=== PATIENT | female | born 1955 | race Caucasian/White ===

== ENCOUNTER 2017-09-17 14:49 | Inpatient (IN) | payer MEDICARE ==
[2017-09-17] VITALS (8 sets, daily range): BP systolic 97–132; BP diastolic 45–79
[~2017-09-17] VITALS: Ht 167.6 cm; Wt 80.4 kg
[2017-09-17] MEDS ORDERED: IV NORMAL SALINE 1000ML BAG 1,000 ML IV ONE ×3 (15:15→22:30)
--- NOTE | 2017-09-17 15:27 | PHYS DOC ---
Adult General Chief Complaint Chief Complaint: SHORTNESS OF BREATH HPI HPI 62-year-old female with a history of chronic tobacco abuse now presents the emergency department with a 6 week history of worsening shortness of breath and exertional intolerance. Patient does smoke currently and has smoked for many years but she's never been formally diagnosed with COPD. She does feel short of breath and reports a cough over the last 1-2 days however this cough is nonproductive. She denies fevers chills sweats or shaking chills. As stated these symptoms have evolved chronically but been much worse in the last week and then especially today. Patient thinks she is anemic and offers that at one point she was told she was anemic but she was never transfused and no explanation was ever given. She denies black or bloody stools. She denies chest pain of any kind. Patient mentions that she feels dehydrated. She has no history of diabetes. Denies any pain in bowel bladder habits are normal. She's never been told she had any cardiac abnormalities and that she has a primary care doctor she has not seen a person within the last 6 weeks for any reason. Tachycardic and tachypneic on arrival Review of Systems Review of Systems Constitutional: Denies fever or chills [] Eyes: Denies change in visual acuity, redness, or eye pain [] HENT: Denies nasal congestion or sore throat [] Respiratory: Patient reports nonproductive cough and shortness of breath was just been worsening over 6 weeks and especially in the last week Cardiovascular: No additional information not addressed in HPI [] GI: Denies abdominal pain, nausea, vomiting, bloody stools or diarrhea [] : Denies dysuria or hematuria [] Musculoskeletal: Denies back pain or joint pain [] Integument: Denies rash or skin lesions [] Neurologic: Denies headache, focal weakness or sensory changes [] Endocrine: Denies polyuria or polydipsia [] All other systems were reviewed and found to be within normal limits, except as documented in this note. Current Medications Current Medications Current Medications Medications (Trade) Dose Ordered Sig/Vernon Start Time Stop Time Status Last Admin Dose Admin Albuterol/ Ipratropium (Duoneb) 3 ml 1X ONCE 09/17/17 16:45 09/17/17 16:46 DC 09/17/17 17:00 3 ML Azithromycin 250 ml @ 250 mls/hr 1X ONCE 09/17/17 16:30 09/17/17 17:29 DC 09/17/17 22:38 250 MLS/HR Ceftriaxone Sodium 1 gm/ Dextrose 50 ml @ 100 mls/hr Q24H 09/17/17 17:15 UNV Ceftriaxone Sodium 50 ml @ 0 mls/hr 1X ONCE 09/17/17 16:45 09/17/17 16:46 DC 09/17/17 17:33 50 MLS/HR Guaifenesin (Robitussin Dm) 10 ml PRN Q6HRS PRN 09/17/17 17:15 Ondansetron HCl (Zofran) 4 mg PRN Q8HRS PRN 09/17/17 16:30 09/18/17 16:29 DC Potassium Chloride (Klor-Con) 40 meq 1X ONCE 09/17/17 16:45 09/17/17 16:46 DC 09/17/17 16:57 40 MEQ Sodium Chloride 1,000 ml @ 125 mls/hr 1X ONCE 09/17/17 17:15 09/17/17 22:12 DC 09/17/17 17:45 125 MLS/HR Allergies Allergies Allergies Coded Allergies Type Severity Reaction Last Updated Verified No Known Drug Allergies 09/17/17 No Physical Exam Physical Exam 62-year-old female mildly tachypnea with right-sided rhonchi and tachycardia. Her mucous membranes are dry and she has significant subconjunctival pallor. Patient is smiling cheerful communicative and appropriate with a benign neurologic exam. She has a supple neck benign abdomen and a nonfocal neurologic exam. Constitutional: Well developed, mildly ill-appearing HENT: Normocephalic, atraumatic, bilateral external ears normal, oropharynx dry mucous membranes, no oral exudates, nose normal. [] Eyes: PERRLA, EOMI, conjunctiva normal, no discharge. [] Neck: Normal range of motion, no tenderness, supple, no stridor. [] Cardiovascular:Heart rate regular rhythm, no murmur tachycardia[] Lungs & Thorax: As above Abdomen: Bowel sounds normal, soft, no tenderness, no masses, no pulsatile masses. [] Skin: Warm, dry, no erythema, no rash. [] Back: No tenderness, no CVA tenderness. [] Extremities: No tenderness, no cyanosis, no clubbing, ROM intact, no edema. [] Neurologic: Alert and oriented X 3, normal motor function, normal sensory function, no focal deficits noted. [] Psychologic: Affect normal, judgement normal, mood normal. [] Current Patient Data Vital Signs Vital Signs Date Time Temp Pulse Resp B/P (MAP) Pulse Ox O2 Delivery O2 Flow Rate FiO2 09/17/17 17:26 107 91/66 (74) 09/17/17 17:01 91 Room Air 09/17/17 14:55 97.7 24 97.7 Lab Values Laboratory Tests Test 09/17/17 15:15 09/17/17 15:48 09/17/17 16:50 09/17/17 17:00 White Blood Count 15.4 x10^3/uL (4.0-11.0) H Red Blood Count 2.46 x10^6/uL (3.50-5.40) L Hemoglobin 5.0 g/dL (12.0-15.5) *L Hematocrit 17.5 % (36.0-47.0) *L Mean Corpuscular Volume 71 fL (79-100) L Mean Corpuscular Hemoglobin 20 pg (25-35) L Mean Corpuscular Hemoglobin Concent 29 g/dL (31-37) L Red Cell Distribution Width 25.9 % (11.5-14.5) H Platelet Count 354 x10^3/uL (140-400) Neutrophils (%) (Auto) 78 % (31-73) H Lymphocytes (%) (Auto) 8 % (24-48) L Monocytes (%) (Auto) 8 % (0-9) Eosinophils (%) (Auto) 5 % (0-3) H Basophils (%) (Auto) 1 % (0-3) Neutrophils # (Auto) 12.0 x10^3uL (1.8-7.7) H Lymphocytes # (Auto) 1.2 x10^3/uL (1.0-4.8) Monocytes # (Auto) 1.2 x10^3/uL (0.0-1.1) H Eosinophils # (Auto) 0.8 x10^3/uL (0.0-0.7) H Basophils # (Auto) 0.2 x10^3/uL (0.0-0.2) Platelet Estimate Adequate (ADEQUATE) Polychromasia Present Hypochromasia Mod Poikilocytosis Slight Anisocytosis Marked Microcytosis Mod Tear Drop Cells Occ Ovalocytes Few Schistocytes Occ Haptoglobin 265 mg/dL (34-200) H Prothrombin Time 14.3 SEC (11.7-14.0) H Prothrombin Time INR 1.2 (0.8-1.1) H PTT 33 SEC (24-38) Fibrinogen 727 mg/dL (200-440) H Sodium Level 141 mmol/L (136-145) Potassium Level 3.1 mmol/L (3.5-5.1) L Chloride Level 107 mmol/L (98-107) Carbon Dioxide Level 20 mmol/L (21-32) L Anion Gap 14 (6-14) 14 mmol/L (6-14) Blood Urea Nitrogen 21 mg/dL (7-20) H Creatinine 1.5 mg/dL (0.6-1.0) H Estimated GFR (Cockcroft-Gault) 35.4 BUN/Creatinine Ratio 14 (6-20) Glucose Level 127 mg/dL (70-99) H 118 mg/dL (70-99) H Calcium Level 9.2 mg/dL (8.5-10.1) Total Bilirubin 0.4 mg/dL (0.2-1.0) Aspartate Amino Transferase (AST) 29 U/L (15-37) Alanine Aminotransferase (ALT) 11 U/L (14-59) L Alkaline Phosphatase 73 U/L (46-116) Lactate Dehydrogenase 452 U/L (81-234) H Total Protein 6.6 g/dL (6.4-8.2) Albumin 2.6 g/dL (3.4-5.0) L Albumin/Globulin Ratio 0.7 (1.0-1.7) L Thyroid Stimulating Hormone (TSH) 0.677 uIU/mL (0.358-3.74) POC Hemoglobin 6.1 g/dL (12-15) L POC Hematocrit 18 % (36-40) L POC Sodium 141 mmol/L (135-145) POC Potassium 3.3 mmol/L (3.5-5.0) L POC Chloride 110 mmol/L (98-110) POC Total CO2 22 mmol/L (23-32) L POC Blood Urea Nitrogen 24 mg/dL (8-26) POC Creatinine 1.4 mg/dL (0.5-1.4) POC Ionized Calcium (Emily) 1.20 mmol/L (1.13-1.32) POC Troponin I 0.01 ng/ml (<0.08) Lactic Acid Level 1.1 mmol/L (0.4-2.0) Laboratory Tests 09/17/17 15:15 Laboratory Tests 09/17/17 15:15 09/17/17 15:48 Microbiology 09/17/17 Blood Culture - Preliminary, Resulted NO GROWTH AFTER 1 DAY EKG EKG EKG with sinus tachycardia, nonspecific ST and T-wave findings, no STEMI interpreted by me[] Radiology/Procedures Radiology/Procedures Chest x-ray with right-sided infiltrate interpreted by me[] Course & Med Decision Making Course & Med Decision Making Pertinent Labs and Imaging studies reviewed. (See chart for details) 62-year-old female signs and symptoms consistent with symptomatic anemia. Patient's hemoglobin 5. She is not Restorationist verbally consents for transfusion. type and cross for 2 units of PRBCs performed for transfusion as available. Patient also with mild metabolic acidosis as well as hypokalemia and severe hypoalbuminemia. She is to. Patient states she's never been diagnosed with COPD but she has been a daily smoker for a very long time. She has a cough but denies productivity or fever. Chest x-ray shows a right-sided pneumonia so cultures were drawn and antibiotic coverage initiated for CPAP. Case discussed with Dr. Deja hooker is aware the history and findings and agrees with inpatient admission to a cardiac telemetry bed to his service. Coags fibrinogen, haptoglobin, and LDH pending for anemia workup Critical care 76 minutes [] Dragon Disclaimer Dragon Disclaimer This electronic medical record was generated, in whole or in part, using a voice recognition dictation system. Departure Departure Impression: Primary Impression: Severe anemia Additional Impressions: Metabolic acidosis Hypoalbuminemia Pneumonia Dyspnea Disposition: 09 ADMITTED INPATIENT Admitting Physician: Deja Hooker Condition: GUARDED Problem Qualifiers ZEFERINO DE LOS SANTOS MD Sep 17, 2017 15:27
--- NOTE | 2017-09-17 15:35 | RAD ---
Portable chest, 09/17/2017: History: Shortness of breath, medical workup No previous chest radiographs are available at this time for comparison purposes. The heart is at the upper limits of normal in size. There is moderate right parahilar infiltrate with poor definition of the underlying pulmonary vascularity. There is blunting of the left lateral costophrenic angle compatible with pleural fluid versus scarring. No right-sided pleural fluid is seen. Scattered degenerative changes are present in the spine. IMPRESSION: 1. Moderate right parahilar infiltrates suggesting pneumonia versus unilateral pulmonary edema. 2. Probable moderate sized left pleural effusion.
[2017-09-17 15:44] LABS: BASO # 0.2 x10^3/uL (0.0-0.2); BASO % 1 % (0-3); EOS % 5 % (0-3); LYMPH # 1.2 x10^3/uL (1.0-4.8); LYMPH % 8 % (24-48); MEAN CORPUSCULAR HEMOGLOBIN 20 pg (25-35); MEAN CORPUSCULAR HGB CONC 29 g/dL (31-37); MEAN CORPUSCULAR VOLUME 71 fL (79-100); MONO % 8 % (0-9); NEUT % 78 % (31-73); PLATELET COUNT 354 x10^3/uL (140-400); RED BLOOD COUNT 2.46 x10^6/uL (3.50-5.40); RED CELL DISTRIBUTION WIDTH 25.9 % (11.5-14.5); WHITE BLOOD COUNT 15.4 x10^3/uL (4.0-11.0)
[2017-09-17 15:48] LABS: HEMATOCRIT 17.5 % (36.0-47.0)
[2017-09-17 15:54] LABS: POTASSIUM ISTAT 3.3 mmol/L (3.5-5.0)
[2017-09-17 15:55] LABS: CALCIUM 9.2 mg/dL (8.5-10.1); CREATININE 1.5 mg/dL (0.6-1.0); GFR 35.4; POTASSIUM 3.1 mmol/L (3.5-5.1)
[2017-09-17 15:59] LABS: ALBUMIN 2.6 g/dL (3.4-5.0); ALBUMIN/GLOBULIN RATIO 0.7 (1.0-1.7); TOTAL BILIRUBIN 0.4 mg/dL (0.2-1.0); TOTAL PROTEIN 6.6 g/dL (6.4-8.2)
--- NOTE | 2017-09-17 16:02 | EKG ---
[facility] [address] [place] [id number] Test Date: 2017-09-17 Test Time: 15:02:12 Pat Name: TUNDE COYLE Department: Room: Gender: F Seed [employer] Operator: : 1955 Requested By: ZEFERINO DE LOS SANTOS Order Number: [id number] Reading MD: Emre Ruggiero MD Measurements Intervals [place] Rate: 101 P: 45 UT: 122 QRS: 7 QRSD: 82 T: 33 QT: 368 QTc: 484 Interpretive Statements SINUS TACHYCARDIA ATRIAL PREMATURE COMPLEX(ES) Electronically Signed On 09-17-2017 16:29:38 CANDY POLISHER by Emre Ruggiero MD
[2017-09-17] MEDS ORDERED: ONDANSETRON PF 4 MG/2 ML VIAL. IV PRN (16:30)
[2017-09-17] MEDS ORDERED: AZITHRMYCN 500MG IVPB FOR OMNI 250 ML IV ONE (16:30)
[2017-09-17 16:41] LABS: INR 1.2 (0.8-1.1); PROTHROMBIN TIME PATIENT 14.3 SEC (11.7-14.0)
[2017-09-17] MEDS ORDERED: IPRATRPIUM/ALBUTEROL 0.5/2.5MG 3 ML NEBU. NEB ONE (16:45)
[2017-09-17] MEDS ORDERED: POTASSIUM CHLORIDE 20 MEQ TABLET.ER. PO ONE (16:45)
--- NOTE | 2017-09-17 17:03 | PDOC1 ---
History and Physical Date of Admission Date of Admission DATE: 09/17/17 TIME: 17:03 Identification/Chief Complaint Chief Complaint cough, dyspnea Problems: Source Source: Chart review, Patient History of Present Illness History of Present Illness Miss Marti is a 62-year-old female admit with days of worsening dyspnea with sputum production, She also has 6 week history of worsening shortness of breath and exertional intolerance. Patient does smoke currently, and does feel markedly short of breath he is present in the ER, and reports she has gotten more pale and weak over weeks, but days of marked dyspnea, with new sputum last 24 hours and ongoing cough. Her primary care has said she was mildly anemic before, but no workup was done. . As stated these symptoms have evolved chronically but been much worse in the last week and then especially today. no pain, no nausea Past Medical History Past Medical History venous insufficiency, PVD, mult surgeries on leg veins Cardiovascular: No pertinent hx Pulmonary: No pertinent hx GI: No pertinent hx Heme/Onc: Anemia NOS (remote, no ) Family History Family History: No Significant Social History Smoke: 1 pack per day ALCOHOL: none Drugs: None Current Problem List Problem List Problems Medical Problems: (1) Dyspnea Status: Acute (2) Hypoalbuminemia Status: Acute (3) Metabolic acidosis Status: Acute (4) Pneumonia Status: Acute Problems: Current Medications Current Medications Current Medications Sodium Chloride 1,000 ml @ 125 mls/hr 1X ONCE IV Last administered on 15:54; Start 09/17/17 at 15:15; Stop 09/17/17 at 23:14 Ondansetron HCl (Zofran) 4 mg PRN Q8HRS PRN IV NAUSEA/VOMITING; Start at 16:30; Stop 09/18/17 at 16:29 Ceftriaxone Sodium 50 ml @ 0 mls/hr 1X ONCE IV ; Start 09/17/17 at 16:45; Stop 09/17/17 at 16:46; Status DC Azithromycin 250 ml @ 250 mls/hr 1X ONCE IV ; Start 09/17/17 at 16:30; Stop 09/17/17 at 17:29 Albuterol/ Ipratropium (Duoneb) 3 ml 1X ONCE NEB Last administered on 17:00; Start 09/17/17 at 16:45; Stop 09/17/17 at 16:46; Status DC Potassium Chloride (Klor-Con) 40 meq 1X ONCE PO Last administered on t 16:57; Start 09/17/17 at 16:45; Stop 09/17/17 at 16:46; Status DC Allergies Allergies: Coded Allergies: No Known Drug Allergies (Unverified , 09/17/17) ROS General: YES: Fatigue, Malaise, Appetite, No: Chills, Night Sweats, Other PSYCHOLOGICAL ROS: No: Anxiety, Behavioral Disorder, Concentration difficultie , Decreased libido, Depression, Disorientation, Hallucinations, Hostility, Irritablity, Memory difficulties, Mood Swings, Obsessive thoughts, Other Eyes: No Blurry vision, No Decreased vision, No Double vision, No Dry eyes, No Excessive tearing, No Eye Pain, No Itchy Eyes, No Loss of vision, No Photophobia , No Scotomata, No Uses contacts, No Uses glasses, No Other HEENT: No: Heacaches, Visual Changes, Hearing change, Nasal congestion, Nasal discharge, Oral lesions, Sinus pain, Sore Throat, Epistaxis, Sneezing, Snoring, Tinnitus, Vertigo, Vocal changes, Other Respiratory: YES: Cough, Shortness of breath, SOB with excertion, Sputum Changes, Tachypnea, Wheezing, No: Hemoptysis, Orthopnea, Pleuritic Pain, Stridor, Other Cardiovascular: No Chest Pain, No Palpitations, No Orthopnea, No Paroxysmal Noc. Dyspnea, No Edema, No Lt Headedness, No Other Gastrointestinal: Yes Nausea, No Vomiting, No Abdominal Pain, No Diarrhea, No Constipation, No Melena, No Hematochezia, No Other Genitourinary: No Dysuria, No Frequency, No Incontinence, No Hematuria, No Retention, No Discharge, No Urgency, No Pain, No Flank Pain, No Other, No , No , No , No , No , No , No Musculoskeletal: Yes Joint Stiffness, No Gait Disturbance, No Joint Pain, No Joint Swelling, No Muscle Pain, No Muscular Weakness, No Pain In:, No Swelling In:, No Other Neurological: No Behavorial Changes, No Bowel/Bladder ControlChng, No Confusion , No Dizziness, No Gait Disturbance, No Headaches, No Impaired Coord/balance, No Memory Loss, No Numbness/Tingling, No Seizures, No Speech Problems, No Tremors, No Visual Changes, No Weakness, No Other Skin: No Dry Skin, No Eczema, No Hair Changes, No Lumps, No Mole Changes, No Mottling, No Nail Changes, No Pruritus, No Rash, No Skin Lesion Changes, No Other, No Acne Physical Exam Physical Exam short of breath, pale, General: Alert, Cooperative, moderate distress HEENT: Atraumatic, PERRLA Lungs: Other (limited volume, wheeze end exp, no crackles) Heart: no murmurs, other (tachy) Abdomen: Normal bowel sounds, Soft Extremities: No clubbing, No edema Skin: No rashes, No significant lesion Neuro: Normal tone, Other (can only speak 2-3 words between breaths) Psych/Mental Status: Mood NL, Other Vitals Vitals Vital Signs Date Time Temp Pulse Resp B/P (MAP) Pulse Ox O2 Delivery O2 Flow Rate FiO2 09/17/17 14:55 97.7 95 24 105/60 (75) 95 Room Air 97.7 Labs Labs Laboratory Tests Test 09/17/17 15:15 09/17/17 15:48 White Blood Count 15.4 x10^3/uL (4.0-11.0) Red Blood Count 2.46 x10^6/uL (3.50-5.40) Hemoglobin 5.0 g/dL (12.0-15.5) Hematocrit 17.5 % (36.0-47.0) Mean Corpuscular Volume 71 fL (79-100) Mean Corpuscular Hemoglobin 20 pg (25-35) Mean Corpuscular Hemoglobin Concent 29 g/dL (31-37) Red Cell Distribution Width 25.9 % (11.5-14.5) Platelet Count 354 x10^3/uL (140-400) Neutrophils (%) (Auto) 78 % (31-73) Lymphocytes (%) (Auto) 8 % (24-48) Monocytes (%) (Auto) 8 % (0-9) Eosinophils (%) (Auto) 5 % (0-3) Basophils (%) (Auto) 1 % (0-3) Neutrophils # (Auto) 12.0 x10^3uL (1.8-7.7) Lymphocytes # (Auto) 1.2 x10^3/uL (1.0-4.8) Monocytes # (Auto) 1.2 x10^3/uL (0.0-1.1) Eosinophils # (Auto) 0.8 x10^3/uL (0.0-0.7) Basophils # (Auto) 0.2 x10^3/uL (0.0-0.2) Prothrombin Time 14.3 SEC (11.7-14.0) Prothromb Time International Ratio 1.2 (0.8-1.1) Activated Partial Thromboplast Time 33 SEC (24-38) Fibrinogen 727 mg/dL (200-440) Sodium Level 141 mmol/L (136-145) Potassium Level 3.1 mmol/L (3.5-5.1) Chloride Level 107 mmol/L (98-107) Carbon Dioxide Level 20 mmol/L (21-32) Anion Gap 14 (6-14) 14 mmol/L (6-14) Blood Urea Nitrogen 21 mg/dL (7-20) Creatinine 1.5 mg/dL (0.6-1.0) Estimated GFR (Cockcroft-Gault) 35.4 BUN/Creatinine Ratio 14 (6-20) Glucose Level 127 mg/dL (70-99) 118 mg/dL (70-99) Calcium Level 9.2 mg/dL (8.5-10.1) Total Bilirubin 0.4 mg/dL (0.2-1.0) Aspartate Amino Transf (AST/SGOT) 29 U/L (15-37) Alanine Aminotransferase (ALT/SGPT) 11 U/L (14-59) Alkaline Phosphatase 73 U/L (46-116) Lactate Dehydrogenase 452 U/L (81-234) Total Protein 6.6 g/dL (6.4-8.2) Albumin 2.6 g/dL (3.4-5.0) Albumin/Globulin Ratio 0.7 (1.0-1.7) Thyroid Stimulating Hormone (TSH) 0.677 uIU/mL (0.358-3.74) Bedside Hemoglobin 6.1 g/dL (12-15) Bedside Hematocrit 18 % (36-40) Bedside Sodium 141 mmol/L (135-145) Bedside Potassium 3.3 mmol/L (3.5-5.0) Bedside Chloride 110 mmol/L (98-110) Bedside Total CO2 22 mmol/L (23-32) Bedside Blood Urea Nitrogen 24 mg/dL (8-26) Bedside Creatinine 1.4 mg/dL (0.5-1.4) Bedside Ionized Calcium (Emily) 1.20 mmol/L (1.13-1.32) Laboratory Tests Test 09/17/17 15:15 09/17/17 15:48 White Blood Count 15.4 x10^3/uL (4.0-11.0) Red Blood Count 2.46 x10^6/uL (3.50-5.40) Hemoglobin 5.0 g/dL (12.0-15.5) Hematocrit 17.5 % (36.0-47.0) Mean Corpuscular Volume 71 fL (79-100) Mean Corpuscular Hemoglobin 20 pg (25-35) Mean Corpuscular Hemoglobin Concent 29 g/dL (31-37) Red Cell Distribution Width 25.9 % (11.5-14.5) Platelet Count 354 x10^3/uL (140-400) Neutrophils (%) (Auto) 78 % (31-73) Lymphocytes (%) (Auto) 8 % (24-48) Monocytes (%) (Auto) 8 % (0-9) Eosinophils (%) (Auto) 5 % (0-3) Basophils (%) (Auto) 1 % (0-3) Neutrophils # (Auto) 12.0 x10^3uL (1.8-7.7) Lymphocytes # (Auto) 1.2 x10^3/uL (1.0-4.8) Monocytes # (Auto) 1.2 x10^3/uL (0.0-1.1) Eosinophils # (Auto) 0.8 x10^3/uL (0.0-0.7) Basophils # (Auto) 0.2 x10^3/uL (0.0-0.2) Prothrombin Time 14.3 SEC (11.7-14.0) Prothromb Time International Ratio 1.2 (0.8-1.1) Activated Partial Thromboplast Time 33 SEC (24-38) Fibrinogen 727 mg/dL (200-440) Sodium Level 141 mmol/L (136-145) Potassium Level 3.1 mmol/L (3.5-5.1) Chloride Level 107 mmol/L (98-107) Carbon Dioxide Level 20 mmol/L (21-32) Anion Gap 14 (6-14) 14 mmol/L (6-14) Blood Urea Nitrogen 21 mg/dL (7-20) Creatinine 1.5 mg/dL (0.6-1.0) Estimated GFR (Cockcroft-Gault) 35.4 BUN/Creatinine Ratio 14 (6-20) Glucose Level 127 mg/dL (70-99) 118 mg/dL (70-99) Calcium Level 9.2 mg/dL (8.5-10.1) Total Bilirubin 0.4 mg/dL (0.2-1.0) Aspartate Amino Transf (AST/SGOT) 29 U/L (15-37) Alanine Aminotransferase (ALT/SGPT) 11 U/L (14-59) Alkaline Phosphatase 73 U/L (46-116) Lactate Dehydrogenase 452 U/L (81-234) Total Protein 6.6 g/dL (6.4-8.2) Albumin 2.6 g/dL (3.4-5.0) Albumin/Globulin Ratio 0.7 (1.0-1.7) Thyroid Stimulating Hormone (TSH) 0.677 uIU/mL (0.358-3.74) Bedside Hemoglobin 6.1 g/dL (12-15) Bedside Hematocrit 18 % (36-40) Bedside Sodium 141 mmol/L (135-145) Bedside Potassium 3.3 mmol/L (3.5-5.0) Bedside Chloride 110 mmol/L (98-110) Bedside Total CO2 22 mmol/L (23-32) Bedside Blood Urea Nitrogen 24 mg/dL (8-26) Bedside Creatinine 1.4 mg/dL (0.5-1.4) Bedside Ionized Calcium (Emily) 1.20 mmol/L (1.13-1.32) VTE Prophylaxis Ordered VTE Prophylaxis Devices: Yes VTE Pharmacological Prophylaxi: No Assessment/Plan Assessment/Plan pneumonia, RML opacity, cough and dyspnea consider early COPD, consult PULM, nebs sepsis, from SIRS, abx given, anemia, acute on chronic, check stool, tobaccoism, ABELARDO MOORE MD Sep 17, 2017 17:03
[2017-09-17] MEDS ORDERED: guaiFENesin DM 200MG/20MG 10 ML SYRUP PO PRN (17:15)
[2017-09-17 17:26] LABS: PLT ESTIMATE ADEQUATE (ADEQUATE)
[2017-09-17 17:49] LABS: ANISOCYTOSIS MARKED; HYPOCHROMIA MOD; MICROCYTOSIS MOD; POIKILOCYTOSIS SLIGHT; POLYCHROMASIA PRESENT
[2017-09-17 17:50] LABS: OVALOCYTES FEW; SCHISTOCYTES OCC; TEAR DROP CELLS OCC
[2017-09-17] MEDS ORDERED: INFLUENZA VAX SCREEN BY RX. MC ONE (19:00)
[2017-09-17] MEDS ORDERED: [UNRECOGNIZED DRUG - OTHER] (20:37)
[2017-09-17] MEDS ORDERED: HYDR25TA9 PO (20:37)
[2017-09-17] MEDS ORDERED: WELL (20:37)
[2017-09-17] MEDS ORDERED: ALPR1TAB2 PO (20:37)
[2017-09-17] MEDS: IPRATRPIUM/ALBUTEROL 0.5/2.5MG 3 ML NEBU. NEB SCH ×2 (20:39→23:43)
[2017-09-17] MEDS ORDERED: FLU VACC QS2017-18 (36MOS+)/PF 0.5 ML SYRINGE. VAX IM ONE (21:00)
[2017-09-17] MEDS ORDERED: SODIUM BICARB ADULT 8.4% 50 MEQ/50 ML DISP.SYRIN. IV ONE (22:30)
[2017-09-17] MEDS: ALPRAZolam 1 MG TABLET PO PRN (22:48)
[2017-09-18] VITALS (23 sets, daily range): BP systolic 91–196; BP diastolic 54–75
[2017-09-18] MEDS: IPRATRPIUM/ALBUTEROL 0.5/2.5MG 3 ML NEBU. NEB SCH ×6 (03:35→23:48)
[2017-09-18 05:25] LABS: BASO # 0.1 x10^3/uL (0.0-0.2); BASO % 1 % (0-3); EOS % 2 % (0-3); LYMPH # 0.8 x10^3/uL (1.0-4.8); LYMPH % 5 % (24-48); MEAN CORPUSCULAR HEMOGLOBIN 22 pg (25-35); MEAN CORPUSCULAR HGB CONC 30 g/dL (31-37); MEAN CORPUSCULAR VOLUME 75 fL (79-100); MONO % 9 % (0-9); NEUT % 83 % (31-73); PLATELET COUNT 332 x10^3/uL (140-400); RED BLOOD COUNT 2.64 x10^6/uL (3.50-5.40); RED CELL DISTRIBUTION WIDTH 27.7 % (11.5-14.5); WHITE BLOOD COUNT 14.4 x10^3/uL (4.0-11.0)
[2017-09-18 05:43] LABS: HEMOGLOBIN 5.9 g/dL (12.0-15.5)
[2017-09-18 05:44] LABS: HEMATOCRIT 19.7 % (36.0-47.0)
[2017-09-18 05:52] LABS: ALBUMIN 2.5 g/dL (3.4-5.0); ALBUMIN/GLOBULIN RATIO 0.7 (1.0-1.7); CALCIUM 8.3 mg/dL (8.5-10.1); CREATININE 1.4 mg/dL (0.6-1.0); GFR 38.4; POTASSIUM 3.4 mmol/L (3.5-5.1); TOTAL BILIRUBIN 0.5 mg/dL (0.2-1.0); TOTAL PROTEIN 6.3 g/dL (6.4-8.2)
[2017-09-18 05:56] LABS: % SAT IRON 3 % (15-34); IRON,SERUM 12 ug/dL (50-170)
[2017-09-18] MEDS ORDERED: FUROSEMIDE 20 MG/2 ML VIAL. IVP ONE ×3 (06:30→10:45)
[2017-09-18] MEDS ORDERED: POTASSIUM CHLORIDE 20 MEQ TABLET.ER. PO ONE ×2 (09:00→11:45)
[2017-09-18] MEDS ORDERED: IRON SUCROSE COMPLEX 500 MG in IV NORMAL SALINE 250ML 250 ML IV ONE (09:00)
[2017-09-18] MEDS ORDERED: AZITHROMYCIN 250 MG TABLET. PO SCH (09:00)
--- NOTE | 2017-09-18 09:19 | PDOC ---
Provider Note Provider Note dictated JORGE LEDESMA MD Sep 18, 2017 09:19
--- NOTE | 2017-09-18 10:04 | RAD ---
Portable chest, 09/18/2017: History: Shortness of breath, pneumonia, CHF Comparison is made to yesterday's study. There is a lesser depth of inspiration. Right pulmonary infiltrates have worsened. There are now mild left pulmonary infiltrates. There is poor definition of the underlying pulmonary vascularity. There is persistent blunting of the left lateral costophrenic angle compatible with pleural fluid versus scarring. There is no evidence of pneumothorax. IMPRESSION: Worsening pulmonary infiltrates, right greater than left, again compatible with pneumonia versus pulmonary edema.
[2017-09-18] MEDS: ALPRAZolam 1 MG TABLET PO PRN ×2 (10:25→19:30)
--- NOTE | 2017-09-18 10:33 | PDOC2 ---
CARDIAC CONSULT DATE OF CONSULT Date of Consult DATE: 09/18/17 TIME: 09:55 REASON FOR CONSULT Reason for Consult: SOA REFERRING PHYSICIAN Referring Physician: Jarvis SOURCE Source: Chart review, Patient HISTORY OF PRESENT ILLNESS HISTORY OF PRESENT ILLNESS This is a 62 yo female admitted for complains of SOA. Reports that about 6 weeks ago she had some of her upper teeth removes to which she was given amoxicillin at that time. Since then she started developing SOA but not bad. Denies any significant bleeding. No hematemesis, black stools or pink tinge urine as well. Her appetite has decreased has been feeling tired. Denies any palpitations or chest pain but her SOA has gotten worse in the last week. Her SOA got worse that she finally decided to come to ED. She was then noted with low Hgb requiring transfusion and also pneumonia. No fever or chills. She also was noted with CHF and renal insufficiency. Presently she is tachypneic no significant leg swelling and presently on a tripod position. She continues to smoke tobacco but no recreational drug use. 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 Denies any CAD, VTE, arrhythmia or syncope in the past. PAST MEDICAL HISTORY Cardiovascular: HTN, Other (venous insufficeincy) Pulmonary: No pertinent hx CENTRAL NERVOUS SYSTEM: Other (No pertinent history) GI: No pertinent hx Heme/Onc: Anemia NOS Psych: Anxiety Musculoskeletal: Osteoarthritis Infectious disease: No pertinent hx ENT: No pertinent hx Renal/: No pertinent hx Endocrine: No pertinent hx Dermatology: No pertinent hx PAST SURGICAL HISTORY Past Surgical History: Other (leg venous ulcer repair; recent upper teeth extraction) FAMILY HISTORY Family History noncontributory to CV SOCIAL HISTORY Smoke: 1 pack per day (50 yrs) ALCOHOL: none Drugs: None Lives: with Family CURRENT MEDICATIONS CURRENT MEDICATIONS Current Medications Medications (Trade) Dose Ordered Sig/Vernon Route PRN Reason Start Time Stop Time Status Last Admin Dose Admin Sodium Chloride 1,000 ml @ 125 mls/hr 1X ONCE IV 09/17/17 15:15 09/17/17 23:14 DC 09/17/17 15:54 Ceftriaxone Sodium 50 ml @ 0 mls/hr 1X ONCE IV 09/17/17 16:45 09/17/17 16:46 DC 09/17/17 17:33 Azithromycin 250 ml @ 250 mls/hr 1X ONCE IV 09/17/17 16:30 09/17/17 17:29 DC 09/17/17 22:38 Albuterol/ Ipratropium (Duoneb) 3 ml 1X ONCE NEB 09/17/17 16:45 09/17/17 16:46 DC 09/17/17 17:00 Potassium Chloride (Klor-Con) 40 meq 1X ONCE PO 09/17/17 16:45 09/17/17 16:46 DC 09/17/17 16:57 Albuterol/ Ipratropium (Duoneb) 3 ml Q4HRS NEB 09/17/17 20:00 09/18/17 08:18 Sodium Chloride 1,000 ml @ 125 mls/hr 1X ONCE IV 09/17/17 17:15 09/17/17 22:12 DC 09/17/17 17:45 Sodium Chloride 1,000 ml @ 130 mls/hr 1X ONCE IV 09/17/17 22:30 09/18/17 06:11 DC 09/17/17 22:31 Sodium Bicarbonate 50 meq 1X ONCE IV 09/17/17 22:30 09/17/17 22:31 DC 09/17/17 22:31 Alprazolam (Xanax) 1 mg PRN TID PRN PO ANXIETY 09/17/17 22:30 09/17/17 22:48 Furosemide (Lasix) 20 mg 1X ONCE IVP 09/18/17 06:30 09/18/17 06:31 DC 09/18/17 06:24 ALLERGIES ALLERGIES: Coded Allergies: No Known Drug Allergies (Unverified , 09/17/17) ROS Review of System 14 point ROS evaluated with pertinent positives noted per HPI PHYSICAL EXAM General: Alert, Oriented X3, Cooperative, moderate distress HEENT: Atraumatic, Mucous membr. moist/pink Lungs: Other (diminished with basilar crackles) Heart: Regular rate (sinus tach), Other (distant heart sounds) Abdomen: Soft, No tenderness Extremities: No cyanosis, Other (1+ bilateral LE pitting edema) Skin: No breakdown, No significant lesion Neuro: Normal speech, Sensation intact Psych/Mental Status: Mental status NL, Other (anxious) MUSCULOSKELETAL: Osteoarthritic changes both hands VITALS VITALS Vital Signs Date Time Temp Pulse Resp B/P (MAP) Pulse Ox O2 Delivery O2 Flow Rate FiO2 11/14/17 08:46 97.6 115 26 122/59 97.6 09/18/17 08:19 90 Nasal Cannula 2.0 LABS Lab: Laboratory Tests Test 09/17/17 15:15 09/17/17 15:48 09/17/17 16:50 09/17/17 17:00 White Blood Count 15.4 x10^3/uL (4.0-11.0) Red Blood Count 2.46 x10^6/uL (3.50-5.40) Hemoglobin 5.0 g/dL (12.0-15.5) Hematocrit 17.5 % (36.0-47.0) Mean Corpuscular Volume 71 fL (79-100) Mean Corpuscular Hemoglobin 20 pg (25-35) Mean Corpuscular Hemoglobin Concent 29 g/dL (31-37) Red Cell Distribution Width 25.9 % (11.5-14.5) Platelet Count 354 x10^3/uL (140-400) Neutrophils (%) (Auto) 78 % (31-73) Lymphocytes (%) (Auto) 8 % (24-48) Monocytes (%) (Auto) 8 % (0-9) Eosinophils (%) (Auto) 5 % (0-3) Basophils (%) (Auto) 1 % (0-3) Neutrophils # (Auto) 12.0 x10^3uL (1.8-7.7) Lymphocytes # (Auto) 1.2 x10^3/uL (1.0-4.8) Monocytes # (Auto) 1.2 x10^3/uL (0.0-1.1) Eosinophils # (Auto) 0.8 x10^3/uL (0.0-0.7) Basophils # (Auto) 0.2 x10^3/uL (0.0-0.2) Platelet Estimate Adequate (ADEQUATE) Polychromasia Present Hypochromasia Mod Poikilocytosis Slight Anisocytosis Marked Microcytosis Mod Tear Drop Cells Occ Ovalocytes Few Schistocytes Occ Haptoglobin 265 mg/dL (34-200) Prothrombin Time 14.3 SEC (11.7-14.0) Prothromb Time International Ratio 1.2 (0.8-1.1) Activated Partial Thromboplast Time 33 SEC (24-38) Fibrinogen 727 mg/dL (200-440) Sodium Level 141 mmol/L (136-145) Potassium Level 3.1 mmol/L (3.5-5.1) Chloride Level 107 mmol/L (98-107) Carbon Dioxide Level 20 mmol/L (21-32) Anion Gap 14 (6-14) 14 mmol/L (6-14) Blood Urea Nitrogen 21 mg/dL (7-20) Creatinine 1.5 mg/dL (0.6-1.0) Estimated GFR (Cockcroft-Gault) 35.4 BUN/Creatinine Ratio 14 (6-20) Glucose Level 127 mg/dL (70-99) 118 mg/dL (70-99) Calcium Level 9.2 mg/dL (8.5-10.1) Total Bilirubin 0.4 mg/dL (0.2-1.0) Aspartate Amino Transf (AST/SGOT) 29 U/L (15-37) Alanine Aminotransferase (ALT/SGPT) 11 U/L (14-59) Alkaline Phosphatase 73 U/L (46-116) Lactate Dehydrogenase 452 U/L (81-234) Total Protein 6.6 g/dL (6.4-8.2) Albumin 2.6 g/dL (3.4-5.0) Albumin/Globulin Ratio 0.7 (1.0-1.7) Thyroid Stimulating Hormone (TSH) 0.677 uIU/mL (0.358-3.74) Bedside Hemoglobin 6.1 g/dL (12-15) Bedside Hematocrit 18 % (36-40) Bedside Sodium 141 mmol/L (135-145) Bedside Potassium 3.3 mmol/L (3.5-5.0) Bedside Chloride 110 mmol/L (98-110) Bedside Total CO2 22 mmol/L (23-32) Bedside Blood Urea Nitrogen 24 mg/dL (8-26) Bedside Creatinine 1.4 mg/dL (0.5-1.4) Bedside Ionized Calcium (Emily) 1.20 mmol/L (1.13-1.32) Bedside Troponin I 0.01 ng/ml (<0.08) Lactic Acid Level 1.1 mmol/L (0.4-2.0) Test 09/18/17 04:10 White Blood Count 14.4 x10^3/uL (4.0-11.0) Red Blood Count 2.64 x10^6/uL (3.50-5.40) Hemoglobin 5.9 g/dL (12.0-15.5) Hematocrit 19.7 % (36.0-47.0) Mean Corpuscular Volume 75 fL (79-100) Mean Corpuscular Hemoglobin 22 pg (25-35) Mean Corpuscular Hemoglobin Concent 30 g/dL (31-37) Red Cell Distribution Width 27.7 % (11.5-14.5) Platelet Count 332 x10^3/uL (140-400) Neutrophils (%) (Auto) 83 % (31-73) Lymphocytes (%) (Auto) 5 % (24-48) Monocytes (%) (Auto) 9 % (0-9) Eosinophils (%) (Auto) 2 % (0-3) Basophils (%) (Auto) 1 % (0-3) Neutrophils # (Auto) 12.0 x10^3uL (1.8-7.7) Lymphocytes # (Auto) 0.8 x10^3/uL (1.0-4.8) Monocytes # (Auto) 1.3 x10^3/uL (0.0-1.1) Eosinophils # (Auto) 0.3 x10^3/uL (0.0-0.7) Basophils # (Auto) 0.1 x10^3/uL (0.0-0.2) Reticulocyte Count (auto) 1.6 % (0.5-2.5) Sodium Level 144 mmol/L (136-145) Potassium Level 3.4 mmol/L (3.5-5.1) Chloride Level 110 mmol/L (98-107) Carbon Dioxide Level 20 mmol/L (21-32) Anion Gap 14 (6-14) Blood Urea Nitrogen 21 mg/dL (7-20) Creatinine 1.4 mg/dL (0.6-1.0) Estimated GFR (Cockcroft-Gault) 38.4 BUN/Creatinine Ratio 15 (6-20) Glucose Level 102 mg/dL (70-99) Calcium Level 8.3 mg/dL (8.5-10.1) Iron Level 12 ug/dL (50-170) Total Iron Binding Capacity 348 ug/dL (250-450) Iron Saturation 3 % (15-34) Total Bilirubin 0.5 mg/dL (0.2-1.0) Aspartate Amino Transf (AST/SGOT) 16 U/L (15-37) Alanine Aminotransferase (ALT/SGPT) 9 U/L (14-59) Alkaline Phosphatase 88 U/L (46-116) NU-Chj-S-Type Natriuretic Peptide 4983 pg/mL (0-124) Total Protein 6.3 g/dL (6.4-8.2) Albumin 2.5 g/dL (3.4-5.0) Albumin/Globulin Ratio 0.7 (1.0-1.7) ASSESSMENT/PLAN ASSESSMENT/PLAN 1. Dyspnea: multifactorial as noted below 2. CAP/leukocytosis: pulmonary following 3. Microcytic hypochromic anemia: Hgb initially at 5.0 and presently at 5.9. No obvious source 4. Acute diastolic CHF likely high output failure induced by anemia. 5. GEO: prerenal with anemia and with chronic NSAID use. 6. Hypokalemia: replace. 7. Chronic NSAID use: routine use of 800 mg of advil bid 8. HTN: takes HCTZ 9. Suspect undiagnosed COPD with chronic tobaccoism 10. Protein malnutrition Recommendations 1. TTE. Will provide lasix after blood transfusion 2. TSH 3. Consult hematology. Nephrology has been consulted as well Problems: KELVIN ALFARO [employer]ELTER [employer] Sep 18, 2017 10:33
--- NOTE | 2017-09-18 10:40 | CONS ---
DATE OF CONSULTATION: ATTENDING PHYSICIAN: Dr. Conley. REASON FOR CONSULTATION: Dyspnea, hypoxic respiratory failure, abnormal chest x-ray. 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 She presented to the hospital with initially symptoms of fatigue and lack of energy and then since last 24 hours, she had increasing dyspnea. She had a cough which has been nonproductive. No fever, no chills. The patient has smoked for 50 years. She was found to be anemic on initial evaluation with a hemoglobin of 5.0. She had received packed RBCs yesterday, and her hemoglobin was 5.9 this morning and is receiving packed RBCs again. Her platelets were normal. White cell count was mildly elevated. She was also noted to be in mild acute renal failure. The patient's chest x-ray was highly abnormal and shows diffuse interstitial infiltrates, worse on the right side, with mild effusion on the left. Effusion appears to have improved today, but infiltrates on the right side appears to have accentuated. There is no significant effusion on the right side. The patient has no weight loss or weight gain. She has no birds at home. She does have a dog at home who is not sick. Denies any constitutional symptoms of malignancy. She was having saturation in the mid 80s on 2 liters, and I have increased to 4 liters with saturation went up to 94%. She was started on broad spectrum antibiotics, Rocephin and Zithromax, and I have been asked to see her for further evaluation. PAST MEDICAL HISTORY: Significant for history of peripheral vascular disease, venous insufficiency, history of underlying COPD, smoked for 50 years before quitting. History of multiple surgeries on the leg veins. Surgery as above. SOCIAL HISTORY: Smoked for 50 years. REVIEW OF SYSTEMS: Twelve-point systems obtained. Pertinent positives discussed in my history of present illness, otherwise noncontributory. All systems that were negative were reviewed as well. MEDICATIONS: All reviewed as listed in the MRAD. FAMILY HISTORY: Noncontributory to lungs. PHYSICAL EXAMINATION: VITAL SIGNS: The blood pressure is 122/59, afebrile, pulse ox 94% on 4 liters. HEENT: Sclerae nonicteric. NECK: Supple. LUNGS: With crackles at the bases. CARDIOVASCULAR: Regular rate. ABDOMEN: Soft, nontender. EXTREMITIES: With no pitting edema. LABORATORY DATA: Reviewed. Her sodium 144, potassium 3.4, BUN 21, creatinine 1.4. Lactic acid 1.1. Her proBNP is 4983, albumin is 2.5. INR 1.2. Fibrinogen 727. Hemoglobin 5.9. White cell count 14.4, platelets are normal. MCV is low at 75. IMPRESSION: 1. Acute hypoxic respiratory failure in a patient who is a smoker and has a significant anemia with a hemoglobin of 5.0 on admission and also has extensive interstitial infiltrates, more on the right than on the left and a small left pleural effusion. Differential diagnosis would include the following: A. Interstitial pneumonia contributing to hypoxic respiratory failure in a patient who has underlying 50 years of tobacco use. B. Anemia without any obvious blood loss contributing to patient's respiratory failure. C. Anemic heart failure, although clinically less likely. D. Unlikely transfusion related acute lung injury as the symptoms began before the transfusion. E. ?Alveolar hemorrhage/ vasculitis 2. Anemia, needs further workup. Possibility of myelodysplastic syndrome should be a consideration; however, her MCV is low and consider GI consult to rule out any gastrointestinal source. 3. She has had long history of tobacco use, suspect underlying chronic obstructive pulmonary disease. RECOMMENDATIONS: 1. Continue packed RBC transfusion to keep hemoglobin at least close to 8. 2. Continue to titrate oxygen to keep saturations 92% to 94%. 3. Continue broad-spectrum antibiotics. 4. Obtain CT chest without contrast to better assess for parenchymal infiltrates. 5. We will withhold any diuretics at present. 6. Consult Hematology for workup of anemia. 7. Consult GI for GI workup of anemia. 8. Obtain echocardiogram. 9. sed rate 10. Discussed with RN and the patient and the plan of care discussed. We will follow along with you. JORGE LEDESMA MD DR: YOLY/tito JOB#: [id number] / [id number] SHIRA
[2017-09-18] MEDS: PANTOPRAZOLE 40 MG TABLET.DR. PO SCH (10:47)
--- NOTE | 2017-09-18 11:31 | PDOC2 ---
CONSULT Date of Consult Date of Consult DATE: 09/18/17 TIME: 11:26 Reason for Consult Reason for Consult: RENAL FAILURE Referring Physician Referring Physician: TERESA Identification/Chief Complaint Chief Complaint SOB Problems: Source Source: Chart review, Patient History of Present Illness Reason for Visit: THIS IS A 62 YR OLD WITH COMPLAINTS OF SOB AND WEAKNESS OVER THE LAST SEVERAL WEEKS. PER SPOUSE PT HAS BEEN LOOKING PALE. LABS SHOWED A HGB OF ABOUT 5.0. CR IS 1.5 WITH MILD MET ACIDOSIS AND MILD HYPOKALEMIA. NO HX OF ANY KIDNEY OR BLADDER SURGERIES HEMATURIA DYSURIA OR FREQUENCY NOTED. SHE ALSO HAS LEUCOCYTOSIS AND A RIGHT ML INFILTRATE ON HER CXRAY Past Medical History Cardiovascular: HTN, Other (venous insufficeincy) Pulmonary: No pertinent hx CENTRAL NERVOUS SYSTEM: Other (No pertinent history) GI: No pertinent hx Heme/Onc: Anemia NOS Psych: Anxiety Musculoskeletal: Osteoarthritis Infectious disease: No pertinent hx ENT: No pertinent hx Renal/: No pertinent hx Endocrine: No pertinent hx Dermatology: No pertinent hx Past Surgical History Past Surgical History: Other (leg venous ulcer repair; recent upper teeth extraction) Family History Family History: No Significant Social History 1 pack per day (50 yrs) ALCOHOL: none Drugs: None Lives: with Family Current Problem List Problem List Problems Medical Problems: (1) Dyspnea Status: Acute (2) Hypoalbuminemia Status: Acute (3) Metabolic acidosis Status: Acute (4) Pneumonia Status: Acute Current Medications Current Medications Current Medications Sodium Chloride 1,000 ml @ 125 mls/hr 1X ONCE IV Last administered on 15:54; Start 09/17/17 at 15:15; Stop 09/17/17 at 23:14; Status DC Ondansetron HCl (Zofran) 4 mg PRN Q8HRS PRN IV NAUSEA/VOMITING; Start at 16:30; Stop 09/18/17 at 16:29 Ceftriaxone Sodium 50 ml @ 0 mls/hr 1X ONCE IV Last administered on 17:33; Start 09/17/17 at 16:45; Stop 09/17/17 at 16:46; Status DC Azithromycin 250 ml @ 250 mls/hr 1X ONCE IV Last administered on 09/17/17 22:38; Start 09/17/17 at 16:30; Stop 09/17/17 at 17:29; Status DC Albuterol/ Ipratropium (Duoneb) 3 ml 1X ONCE NEB Last administered on 17:00; Start 09/17/17 at 16:45; Stop 09/17/17 at 16:46; Status DC Potassium Chloride (Klor-Con) 40 meq 1X ONCE PO Last administered on 16:57; Start 09/17/17 at 16:45; Stop 09/17/17 at 16:46; Status DC Azithromycin (Zithromax) 250 mg DAILY PO Last administered on 09/18/17 10:25 ; Start 09/18/17 at 09:00 Ceftriaxone Sodium 1 gm/ Dextrose 50 ml @ 100 mls/hr Q24H IV ; Start 09/17/17 at 17:15; Status UNV Albuterol/ Ipratropium (Duoneb) 3 ml Q4HRS NEB Last administered on 09/18/17 08:18; Start 09/17/17 at 20:00 Ceftriaxone Sodium (Rocephin) 1 gm Q24H IVP ; Start 09/18/17 at 16:00 Guaifenesin (Robitussin Dm) 10 ml PRN Q6HRS PRN PO COUGH; Start 09/17/17 at 17 :15 Sodium Chloride 1,000 ml @ 125 mls/hr 1X ONCE IV Last administered on 17:45; Start 09/17/17 at 17:15; Stop 09/17/17 at 22:12; Status DC Info (Do NOT chart on this placeholder) 1 each 1X ONCE MC ; Start 09/17/17 at 19:00; Stop 09/17/17 at 19:01; Status UNV Influenza Virus Vaccine Quadrival (Fluarix Quad [id number] Syringe) 0.5 ml ONCE ONCE VAX IM ; Start 09/17/17 at 21:00; Stop 09/17/17 at 21:01; Status DC Sodium Chloride 1,000 ml @ 130 mls/hr 1X ONCE IV Last administered on 22:31; Start 09/17/17 at 22:30; Stop 09/18/17 at 06:11; Status DC Sodium Bicarbonate 50 meq 1X ONCE IV Last administered on 09/17/17 22:31; Start 09/17/17 at 22:30; Stop 09/17/17 at 22:31; Status DC Alprazolam (Xanax) 1 mg PRN TID PRN PO ANXIETY Last administered on 09/18/17 10:25; Start 09/17/17 at 22:30 Furosemide (Lasix) 20 mg 1X ONCE IVP Last administered on 09/18/17 06:24; Start 09/18/17 at 06:30; Stop 09/18/17 at 06:31; Status DC Potassium Chloride (Klor-Con) 40 meq 1X ONCE PO Last administered on 10:25; Start 09/18/17 at 09:00; Stop 09/18/17 at 09:01; Status DC Iron Sucrose 500 mg/Sodium Chloride 275 ml @ 78.571 mls/ hr 1X ONCE IV Last administered on 09/18/17 10:24; Start 09/18/17 at 09:00; Stop 09/18/17 at 12 :29 Furosemide (Lasix) 20 mg 1X ONCE IVP Last administered on 09/18/17 10:30; Start 09/18/17 at 10:00; Stop 09/18/17 at 10:22; Status DC Pantoprazole Sodium (Protonix) 40 mg DAILYAC PO Last administered on 10:47; Start 09/18/17 at 11:00 Furosemide (Lasix) 20 mg 1X ONCE IVP Last administered on 09/18/17 10:47; Start 09/18/17 at 10:45; Stop 09/18/17 at 10:46; Status DC Active Scripts Active Reported [well] Hydrochlorothiazide Tablet (Hydrochlorothiazide) 25 Mg Tablet 1 Tab PO DAILY [cymba] Xanax (Alprazolam) 1 Mg Tablet 1 Tab PO TID PRN Allergies Allergies: Coded Allergies: No Known Drug Allergies (Unverified , 09/17/17) ROS General: YES: Fatigue, Malaise, Appetite PSYCHOLOGICAL ROS: YES: Anxiety Eyes: Yes Decreased vision HEENT: YES: Heacaches ALLERGY AND IMMUNOLOGY: YES: Nasal Congestion, Seasonal Allergies Respiratory: YES: Cough, Shortness of breath Cardiovascular: yes Lt Headedness Gastrointestinal: Yes Nausea, Yes Constipation Genitourinary: YES Other (NOCTURIA) Musculoskeletal: Yes Muscular Weakness Neurological: Yes Weakness Skin: Yes Dry Skin Physical Exam General: Alert, Oriented X3, Cooperative, No acute distress HEENT: Atraumatic, PERRLA Lungs: Clear to auscultation Heart: Regular rate, Normal S1 Abdomen: Normal bowel sounds, Soft, No hepatosplenomegaly Extremities: No clubbing, No edema, Normal pulses Neuro: Normal speech, Cranial nerves 3-12 NL Psych/Mental Status: Mental status NL, Mood NL MUSCULOSKELETAL: No deformity, No swelling Vitals VITALS Vital Signs Date Time Temp Pulse Resp B/P (MAP) Pulse Ox O2 Delivery O2 Flow Rate FiO2 09/18/17 10:20 98.7 111 22 112/62 98.7 09/18/17 08:19 90 Nasal Cannula 2.0 Labs Labs Laboratory Tests Test 09/17/17 15:15 09/17/17 15:48 09/17/17 16:50 09/17/17 17:00 White Blood Count 15.4 x10^3/uL (4.0-11.0) Red Blood Count 2.46 x10^6/uL (3.50-5.40) Hemoglobin 5.0 g/dL (12.0-15.5) Hematocrit 17.5 % (36.0-47.0) Mean Corpuscular Volume 71 fL (79-100) Mean Corpuscular Hemoglobin 20 pg (25-35) Mean Corpuscular Hemoglobin Concent 29 g/dL (31-37) Red Cell Distribution Width 25.9 % (11.5-14.5) Platelet Count 354 x10^3/uL (140-400) Neutrophils (%) (Auto) 78 % (31-73) Lymphocytes (%) (Auto) 8 % (24-48) Monocytes (%) (Auto) 8 % (0-9) Eosinophils (%) (Auto) 5 % (0-3) Basophils (%) (Auto) 1 % (0-3) Neutrophils # (Auto) 12.0 x10^3uL (1.8-7.7) Lymphocytes # (Auto) 1.2 x10^3/uL (1.0-4.8) Monocytes # (Auto) 1.2 x10^3/uL (0.0-1.1) Eosinophils # (Auto) 0.8 x10^3/uL (0.0-0.7) Basophils # (Auto) 0.2 x10^3/uL (0.0-0.2) Platelet Estimate Adequate (ADEQUATE) Polychromasia Present Hypochromasia Mod Poikilocytosis Slight Anisocytosis Marked Microcytosis Mod Tear Drop Cells Occ Ovalocytes Few Schistocytes Occ Haptoglobin 265 mg/dL (34-200) Prothrombin Time 14.3 SEC (11.7-14.0) Prothromb Time International Ratio 1.2 (0.8-1.1) Activated Partial Thromboplast Time 33 SEC (24-38) Fibrinogen 727 mg/dL (200-440) Sodium Level 141 mmol/L (136-145) Potassium Level 3.1 mmol/L (3.5-5.1) Chloride Level 107 mmol/L (98-107) Carbon Dioxide Level 20 mmol/L (21-32) Anion Gap 14 (6-14) 14 mmol/L (6-14) Blood Urea Nitrogen 21 mg/dL (7-20) Creatinine 1.5 mg/dL (0.6-1.0) Estimated GFR (Cockcroft-Gault) 35.4 BUN/Creatinine Ratio 14 (6-20) Glucose Level 127 mg/dL (70-99) 118 mg/dL (70-99) Calcium Level 9.2 mg/dL (8.5-10.1) Total Bilirubin 0.4 mg/dL (0.2-1.0) Aspartate Amino Transf (AST/SGOT) 29 U/L (15-37) Alanine Aminotransferase (ALT/SGPT) 11 U/L (14-59) Alkaline Phosphatase 73 U/L (46-116) Lactate Dehydrogenase 452 U/L (81-234) Total Protein 6.6 g/dL (6.4-8.2) Albumin 2.6 g/dL (3.4-5.0) Albumin/Globulin Ratio 0.7 (1.0-1.7) Thyroid Stimulating Hormone (TSH) 0.677 uIU/mL (0.358-3.74) Bedside Hemoglobin 6.1 g/dL (12-15) Bedside Hematocrit 18 % (36-40) Bedside Sodium 141 mmol/L (135-145) Bedside Potassium 3.3 mmol/L (3.5-5.0) Bedside Chloride 110 mmol/L (98-110) Bedside Total CO2 22 mmol/L (23-32) Bedside Blood Urea Nitrogen 24 mg/dL (8-26) Bedside Creatinine 1.4 mg/dL (0.5-1.4) Bedside Ionized Calcium (Emily) 1.20 mmol/L (1.13-1.32) Bedside Troponin I 0.01 ng/ml (<0.08) Lactic Acid Level 1.1 mmol/L (0.4-2.0) Test 09/18/17 04:10 White Blood Count 14.4 x10^3/uL (4.0-11.0) Red Blood Count 2.64 x10^6/uL (3.50-5.40) Hemoglobin 5.9 g/dL (12.0-15.5) Hematocrit 19.7 % (36.0-47.0) Mean Corpuscular Volume 75 fL (79-100) Mean Corpuscular Hemoglobin 22 pg (25-35) Mean Corpuscular Hemoglobin Concent 30 g/dL (31-37) Red Cell Distribution Width 27.7 % (11.5-14.5) Platelet Count 332 x10^3/uL (140-400) Neutrophils (%) (Auto) 83 % (31-73) Lymphocytes (%) (Auto) 5 % (24-48) Monocytes (%) (Auto) 9 % (0-9) Eosinophils (%) (Auto) 2 % (0-3) Basophils (%) (Auto) 1 % (0-3) Neutrophils # (Auto) 12.0 x10^3uL (1.8-7.7) Lymphocytes # (Auto) 0.8 x10^3/uL (1.0-4.8) Monocytes # (Auto) 1.3 x10^3/uL (0.0-1.1) Eosinophils # (Auto) 0.3 x10^3/uL (0.0-0.7) Basophils # (Auto) 0.1 x10^3/uL (0.0-0.2) Reticulocyte Count (auto) 1.6 % (0.5-2.5) Sodium Level 144 mmol/L (136-145) Potassium Level 3.4 mmol/L (3.5-5.1) Chloride Level 110 mmol/L (98-107) Carbon Dioxide Level 20 mmol/L (21-32) Anion Gap 14 (6-14) Blood Urea Nitrogen 21 mg/dL (7-20) Creatinine 1.4 mg/dL (0.6-1.0) Estimated GFR (Cockcroft-Gault) 38.4 BUN/Creatinine Ratio 15 (6-20) Glucose Level 102 mg/dL (70-99) Calcium Level 8.3 mg/dL (8.5-10.1) Iron Level 12 ug/dL (50-170) Total Iron Binding Capacity 348 ug/dL (250-450) Iron Saturation 3 % (15-34) Total Bilirubin 0.5 mg/dL (0.2-1.0) Aspartate Amino Transf (AST/SGOT) 16 U/L (15-37) Alanine Aminotransferase (ALT/SGPT) 9 U/L (14-59) Alkaline Phosphatase 88 U/L (46-116) ZS-[id number]-Type Natriuretic Peptide 4983 pg/mL (0-124) Total Protein 6.3 g/dL (6.4-8.2) Albumin 2.5 g/dL (3.4-5.0) Albumin/Globulin Ratio 0.7 (1.0-1.7) Laboratory Tests Test 09/17/17 15:15 09/17/17 15:48 09/17/17 16:50 09/17/17 17:00 White Blood Count 15.4 x10^3/uL (4.0-11.0) Red Blood Count 2.46 x10^6/uL (3.50-5.40) Hemoglobin 5.0 g/dL (12.0-15.5) Hematocrit 17.5 % (36.0-47.0) Mean Corpuscular Volume 71 fL (79-100) Mean Corpuscular Hemoglobin 20 pg (25-35) Mean Corpuscular Hemoglobin Concent 29 g/dL (31-37) Red Cell Distribution Width 25.9 % (11.5-14.5) Platelet Count 354 x10^3/uL (140-400) Neutrophils (%) (Auto) 78 % (31-73) Lymphocytes (%) (Auto) 8 % (24-48) Monocytes (%) (Auto) 8 % (0-9) Eosinophils (%) (Auto) 5 % (0-3) Basophils (%) (Auto) 1 % (0-3) Neutrophils # (Auto) 12.0 x10^3uL (1.8-7.7) Lymphocytes # (Auto) 1.2 x10^3/uL (1.0-4.8) Monocytes # (Auto) 1.2 x10^3/uL (0.0-1.1) Eosinophils # (Auto) 0.8 x10^3/uL (0.0-0.7) Basophils # (Auto) 0.2 x10^3/uL (0.0-0.2) Platelet Estimate Adequate (ADEQUATE) Polychromasia Present Hypochromasia Mod Poikilocytosis Slight Anisocytosis Marked Microcytosis Mod Tear Drop Cells Occ Ovalocytes Few Schistocytes Occ Haptoglobin 265 mg/dL (34-200) Prothrombin Time 14.3 SEC (11.7-14.0) Prothromb Time International Ratio 1.2 (0.8-1.1) Activated Partial Thromboplast Time 33 SEC (24-38) Fibrinogen 727 mg/dL (200-440) Sodium Level 141 mmol/L (136-145) Potassium Level 3.1 mmol/L (3.5-5.1) Chloride Level 107 mmol/L (98-107) Carbon Dioxide Level 20 mmol/L (21-32) Anion Gap 14 (6-14) 14 mmol/L (6-14) Blood Urea Nitrogen 21 mg/dL (7-20) Creatinine 1.5 mg/dL (0.6-1.0) Estimated GFR (Cockcroft-Gault) 35.4 BUN/Creatinine Ratio 14 (6-20) Glucose Level 127 mg/dL (70-99) 118 mg/dL (70-99) Calcium Level 9.2 mg/dL (8.5-10.1) Total Bilirubin 0.4 mg/dL (0.2-1.0) Aspartate Amino Transf (AST/SGOT) 29 U/L (15-37) Alanine Aminotransferase (ALT/SGPT) 11 U/L (14-59) Alkaline Phosphatase 73 U/L (46-116) Lactate Dehydrogenase 452 U/L (81-234) Total Protein 6.6 g/dL (6.4-8.2) Albumin 2.6 g/dL (3.4-5.0) Albumin/Globulin Ratio 0.7 (1.0-1.7) Thyroid Stimulating Hormone (TSH) 0.677 uIU/mL (0.358-3.74) Bedside Hemoglobin 6.1 g/dL (12-15) Bedside Hematocrit 18 % (36-40) Bedside Sodium 141 mmol/L (135-145) Bedside Potassium 3.3 mmol/L (3.5-5.0) Bedside Chloride 110 mmol/L (98-110) Bedside Total CO2 22 mmol/L (23-32) Bedside Blood Urea Nitrogen 24 mg/dL (8-26) Bedside Creatinine 1.4 mg/dL (0.5-1.4) Bedside Ionized Calcium (Emily) 1.20 mmol/L (1.13-1.32) Bedside Troponin I 0.01 ng/ml (<0.08) Lactic Acid Level 1.1 mmol/L (0.4-2.0) Test 09/18/17 04:10 White Blood Count 14.4 x10^3/uL (4.0-11.0) Red Blood Count 2.64 x10^6/uL (3.50-5.40) Hemoglobin 5.9 g/dL (12.0-15.5) Hematocrit 19.7 % (36.0-47.0) Mean Corpuscular Volume 75 fL (79-100) Mean Corpuscular Hemoglobin 22 pg (25-35) Mean Corpuscular Hemoglobin Concent 30 g/dL (31-37) Red Cell Distribution Width 27.7 % (11.5-14.5) Platelet Count 332 x10^3/uL (140-400) Neutrophils (%) (Auto) 83 % (31-73) Lymphocytes (%) (Auto) 5 % (24-48) Monocytes (%) (Auto) 9 % (0-9) Eosinophils (%) (Auto) 2 % (0-3) Basophils (%) (Auto) 1 % (0-3) Neutrophils # (Auto) 12.0 x10^3uL (1.8-7.7) Lymphocytes # (Auto) 0.8 x10^3/uL (1.0-4.8) Monocytes # (Auto) 1.3 x10^3/uL (0.0-1.1) Eosinophils # (Auto) 0.3 x10^3/uL (0.0-0.7) Basophils # (Auto) 0.1 x10^3/uL (0.0-0.2) Reticulocyte Count (auto) 1.6 % (0.5-2.5) Sodium Level 144 mmol/L (136-145) Potassium Level 3.4 mmol/L (3.5-5.1) Chloride Level 110 mmol/L (98-107) Carbon Dioxide Level 20 mmol/L (21-32) Anion Gap 14 (6-14) Blood Urea Nitrogen 21 mg/dL (7-20) Creatinine 1.4 mg/dL (0.6-1.0) Estimated GFR (Cockcroft-Gault) 38.4 BUN/Creatinine Ratio 15 (6-20) Glucose Level 102 mg/dL (70-99) Calcium Level 8.3 mg/dL (8.5-10.1) Iron Level 12 ug/dL (50-170) Total Iron Binding Capacity 348 ug/dL (250-450) Iron Saturation 3 % (15-34) Total Bilirubin 0.5 mg/dL (0.2-1.0) Aspartate Amino Transf (AST/SGOT) 16 U/L (15-37) Alanine Aminotransferase (ALT/SGPT) 9 U/L (14-59) Alkaline Phosphatase 88 U/L (46-116) VA-Zqv-D-Type Natriuretic Peptide 4983 pg/mL (0-124) Total Protein 6.3 g/dL (6.4-8.2) Albumin 2.5 g/dL (3.4-5.0) Albumin/Globulin Ratio 0.7 (1.0-1.7) Assessment/Plan Assessment/Plan IMP GEO-ATN PROB DUE TO SEVERE ANEMIA SEVERE ANEMIA MILD MET ACIDOSIS HYPOKALEMIA ?SEPSIS PNEUMONIA MILD HYPERVOLEMIA PLAN ANEMIA EVAL PRBC IV IRON ANTIBIOTICS IV LASIX FOR HYPERVOLEMIA EXPECT RENAL RECOVERY CHECK UA DILLON CARDOZA MD Sep 18, 2017 11:31
--- NOTE | 2017-09-18 11:55 | PDOC2 ---
GI CONSULT Reason For Consult: Hgb 5 HPI: HPI: 62 y/o female admitted w/ SOA. CXR w/ pneumonia, also found w/ severe anemia ( Hgb 5 to 5.9), microcytic, iron-deficient. Denies hematemesis, hematochezia, melena. No n/v, abd pain. H/o IBS-D, unchanged. No weight loss, dysphagia. No GERD. Tells me no h/o anemia, pancreas, liver, or GB problems. Takes Advil daily. No blood thinners. Remote h/o EGD, recalls no significant findings. Colonoscopy w/ polyp last year through [facility]. Normally follows w/ doctors @ [facility] (has an "aneurysm that could burst at any time"). Wants prescriptions for pneumonia and to go home. Has significant anxiety, says she can't lift her head to look at me because of this. Has echocardiogram and chest CT ordered; RN not sure she will agree to additional testing/labs. PMH: PMH: HTN, PVD, aneurysm, venous insufficiency, anxiety, OA, leg ulcer surgeries, dental extractions (recent) FH: Family History: No pertinent hx Social History: Smoke: 1 pack per day ALCOHOL: none Drugs: None ROS: GEN: Denies fevers, chills, sweats HEENT: Denies blurred vision, sore throat CV: Denies chest pain RESP: +SOA GI: Per HPI : Denies hematuria, dysuria ENDO: Denies weight changes NEURO: +anxiety MSK: +joint pain SKIN: Denies jaundice, pruritus Vitals: Vitals: Vital Signs Date Time Temp Pulse Resp B/P (MAP) Pulse Ox O2 Delivery O2 Flow Rate FiO2 09/18/17 10:20 98.7 111 22 112/62 98.7 09/18/17 08:19 90 Nasal Cannula 2.0 Labs: Labs: Laboratory Tests Test 09/17/17 15:15 09/17/17 15:48 09/17/17 16:50 09/17/17 17:00 White Blood Count 15.4 x10^3/uL (4.0-11.0) Red Blood Count 2.46 x10^6/uL (3.50-5.40) Hemoglobin 5.0 g/dL (12.0-15.5) Hematocrit 17.5 % (36.0-47.0) Mean Corpuscular Volume 71 fL (79-100) Mean Corpuscular Hemoglobin 20 pg (25-35) Mean Corpuscular Hemoglobin Concent 29 g/dL (31-37) Red Cell Distribution Width 25.9 % (11.5-14.5) Platelet Count 354 x10^3/uL (140-400) Neutrophils (%) (Auto) 78 % (31-73) Lymphocytes (%) (Auto) 8 % (24-48) Monocytes (%) (Auto) 8 % (0-9) Eosinophils (%) (Auto) 5 % (0-3) Basophils (%) (Auto) 1 % (0-3) Neutrophils # (Auto) 12.0 x10^3uL (1.8-7.7) Lymphocytes # (Auto) 1.2 x10^3/uL (1.0-4.8) Monocytes # (Auto) 1.2 x10^3/uL (0.0-1.1) Eosinophils # (Auto) 0.8 x10^3/uL (0.0-0.7) Basophils # (Auto) 0.2 x10^3/uL (0.0-0.2) Platelet Estimate Adequate (ADEQUATE) Polychromasia Present Hypochromasia Mod Poikilocytosis Slight Anisocytosis Marked Microcytosis Mod Tear Drop Cells Occ Ovalocytes Few Schistocytes Occ Haptoglobin 265 mg/dL (34-200) Prothrombin Time 14.3 SEC (11.7-14.0) Prothromb Time International Ratio 1.2 (0.8-1.1) Activated Partial Thromboplast Time 33 SEC (24-38) Fibrinogen 727 mg/dL (200-440) Sodium Level 141 mmol/L (136-145) Potassium Level 3.1 mmol/L (3.5-5.1) Chloride Level 107 mmol/L (98-107) Carbon Dioxide Level 20 mmol/L (21-32) Anion Gap 14 (6-14) 14 mmol/L (6-14) Blood Urea Nitrogen 21 mg/dL (7-20) Creatinine 1.5 mg/dL (0.6-1.0) Estimated GFR (Cockcroft-Gault) 35.4 BUN/Creatinine Ratio 14 (6-20) Glucose Level 127 mg/dL (70-99) 118 mg/dL (70-99) Calcium Level 9.2 mg/dL (8.5-10.1) Total Bilirubin 0.4 mg/dL (0.2-1.0) Aspartate Amino Transf (AST/SGOT) 29 U/L (15-37) Alanine Aminotransferase (ALT/SGPT) 11 U/L (14-59) Alkaline Phosphatase 73 U/L (46-116) Lactate Dehydrogenase 452 U/L (81-234) Total Protein 6.6 g/dL (6.4-8.2) Albumin 2.6 g/dL (3.4-5.0) Albumin/Globulin Ratio 0.7 (1.0-1.7) Thyroid Stimulating Hormone (TSH) 0.677 uIU/mL (0.358-3.74) Bedside Hemoglobin 6.1 g/dL (12-15) Bedside Hematocrit 18 % (36-40) Bedside Sodium 141 mmol/L (135-145) Bedside Potassium 3.3 mmol/L (3.5-5.0) Bedside Chloride 110 mmol/L (98-110) Bedside Total CO2 22 mmol/L (23-32) Bedside Blood Urea Nitrogen 24 mg/dL (8-26) Bedside Creatinine 1.4 mg/dL (0.5-1.4) Bedside Ionized Calcium (Emily) 1.20 mmol/L (1.13-1.32) Bedside Troponin I 0.01 ng/ml (<0.08) Lactic Acid Level 1.1 mmol/L (0.4-2.0) Test 09/18/17 04:10 White Blood Count 14.4 x10^3/uL (4.0-11.0) Red Blood Count 2.64 x10^6/uL (3.50-5.40) Hemoglobin 5.9 g/dL (12.0-15.5) Hematocrit 19.7 % (36.0-47.0) Mean Corpuscular Volume 75 fL (79-100) Mean Corpuscular Hemoglobin 22 pg (25-35) Mean Corpuscular Hemoglobin Concent 30 g/dL (31-37) Red Cell Distribution Width 27.7 % (11.5-14.5) Platelet Count 332 x10^3/uL (140-400) Neutrophils (%) (Auto) 83 % (31-73) Lymphocytes (%) (Auto) 5 % (24-48) Monocytes (%) (Auto) 9 % (0-9) Eosinophils (%) (Auto) 2 % (0-3) Basophils (%) (Auto) 1 % (0-3) Neutrophils # (Auto) 12.0 x10^3uL (1.8-7.7) Lymphocytes # (Auto) 0.8 x10^3/uL (1.0-4.8) Monocytes # (Auto) 1.3 x10^3/uL (0.0-1.1) Eosinophils # (Auto) 0.3 x10^3/uL (0.0-0.7) Basophils # (Auto) 0.1 x10^3/uL (0.0-0.2) Reticulocyte Count (auto) 1.6 % (0.5-2.5) Sodium Level 144 mmol/L (136-145) Potassium Level 3.4 mmol/L (3.5-5.1) Chloride Level 110 mmol/L (98-107) Carbon Dioxide Level 20 mmol/L (21-32) Anion Gap 14 (6-14) Blood Urea Nitrogen 21 mg/dL (7-20) Creatinine 1.4 mg/dL (0.6-1.0) Estimated GFR (Cockcroft-Gault) 38.4 BUN/Creatinine Ratio 15 (6-20) Glucose Level 102 mg/dL (70-99) Calcium Level 8.3 mg/dL (8.5-10.1) Iron Level 12 ug/dL (50-170) Total Iron Binding Capacity 348 ug/dL (250-450) Iron Saturation 3 % (15-34) Total Bilirubin 0.5 mg/dL (0.2-1.0) Aspartate Amino Transf (AST/SGOT) 16 U/L (15-37) Alanine Aminotransferase (ALT/SGPT) 9 U/L (14-59) Alkaline Phosphatase 88 U/L (46-116) MS-Was-F-Type Natriuretic Peptide 4983 pg/mL (0-124) Total Protein 6.3 g/dL (6.4-8.2) Albumin 2.5 g/dL (3.4-5.0) Albumin/Globulin Ratio 0.7 (1.0-1.7) Allergies: Coded Allergies: No Known Drug Allergies (Unverified , 09/17/17) Medications: Current Medications Medications (Trade) Dose Ordered Sig/Vernon Route PRN Reason Start Time Stop Time Status Last Admin Dose Admin Sodium Chloride 1,000 ml @ 125 mls/hr 1X ONCE IV 09/17/17 15:15 09/17/17 23:14 DC 09/17/17 15:54 Ceftriaxone Sodium 50 ml @ 0 mls/hr 1X ONCE IV 09/17/17 16:45 09/17/17 16:46 DC 09/17/17 17:33 Azithromycin 250 ml @ 250 mls/hr 1X ONCE IV 09/17/17 16:30 09/17/17 17:29 DC 09/17/17 22:38 Albuterol/ Ipratropium (Duoneb) 3 ml 1X ONCE NEB 09/17/17 16:45 09/17/17 16:46 DC 09/17/17 17:00 Potassium Chloride (Klor-Con) 40 meq 1X ONCE PO 09/17/17 16:45 09/17/17 16:46 DC 09/17/17 16:57 Azithromycin (Zithromax) 250 mg DAILY PO 09/18/17 09:00 09/18/17 10:25 Albuterol/ Ipratropium (Duoneb) 3 ml Q4HRS NEB 09/17/17 20:00 09/18/17 08:18 Sodium Chloride 1,000 ml @ 125 mls/hr 1X ONCE IV 09/17/17 17:15 09/17/17 22:12 DC 09/17/17 17:45 Sodium Chloride 1,000 ml @ 130 mls/hr 1X ONCE IV 09/17/17 22:30 09/18/17 06:11 DC 09/17/17 22:31 Sodium Bicarbonate 50 meq 1X ONCE IV 09/17/17 22:30 09/17/17 22:31 DC 09/17/17 22:31 Alprazolam (Xanax) 1 mg PRN TID PRN PO ANXIETY 09/17/17 22:30 09/18/17 10:25 Furosemide (Lasix) 20 mg 1X ONCE IVP 09/18/17 06:30 09/18/17 06:31 DC 09/18/17 06:24 Potassium Chloride (Klor-Con) 40 meq 1X ONCE PO 09/18/17 09:00 09/18/17 09:01 DC 09/18/17 10:25 Iron Sucrose 500 mg/Sodium Chloride 275 ml @ 78.571 mls/ hr 1X ONCE IV 09/18/17 09:00 09/18/17 12:29 09/18/17 10:24 Furosemide (Lasix) 20 mg 1X ONCE IVP 09/18/17 10:00 09/18/17 10:22 DC 09/18/17 10:30 Pantoprazole Sodium (Protonix) 40 mg DAILYAC PO 09/18/17 11:00 09/18/17 10:47 Furosemide (Lasix) 20 mg 1X ONCE IVP 09/18/17 10:45 09/18/17 10:46 DC 09/18/17 10:47 Imaging: Imaging: CXR IMPRESSION: Worsening pulmonary infiltrates, right greater than left, again compatible with pneumonia versus pulmonary edema. PE: GEN: sitting on edge of bed, bent over staring at floor HEENT: Atraumatic LUNGS: tachypneic HEART: tachycardic ABD: difficult exam - S/ND/NT EXTREMITY: No edema SKIN: No rashes, no jaundice NEURO/PSYCH: A & O 3 A/P: A/P: STUART -denies history, denies bleeding -transfusions ongoing, also IV iron -hematology consulted Resp failure, possible pneumonia, probable COPD CHF, GEO, leukocytosis Anxiety -on Xanax at home, worse here CRC screen, h/o polyps -colonoscopy last year @ [place] NSAID use -daily Advil -remote h/o EGD, no significant findings recalled ?aneurysm -followed @ [facility] -- She declines GI workup as this time; would also not be an ideal endoscopy candidate w/ current resp status. Agree w/ PPI (particularly considering NSAID use), transfusion, etc. Defer anxiety treatment to primary. SHAHLA FISHER Sep 18, 2017 11:55
[2017-09-18] MEDS ORDERED: DULO60CA6 PO (12:12)
[2017-09-18] MEDS ORDERED: GABA-586 PO (12:12)
[2017-09-18 12:21] LABS: HEMATOCRIT 25.5 % (36.0-47.0); HEMOGLOBIN 7.7 g/dL (12.0-15.5)
[2017-09-18 12:51] LABS: FOLATE 9.79 ng/ml (3.2-20.0)
[2017-09-18] MEDS: oxyCODONE/APAP 5/325 1 TAB TABLET PO PRN (13:23)
[2017-09-18] MEDS ORDERED: HALOPERIDOL LACTATE 5 MG/ML VIAL. IVP PRN (13:45)
[2017-09-18 13:52] LABS: BILIRUBIN,URINE NEGATIVE (NEG); GLUCOSE,URINE NEGATIVE (NEG); NITRITE,URINE NEGATIVE (NEG); PROTEIN,URINE NEGATIVE (NEG-TRACE); UROBILINOGEN,URINE 0.2 mg/dL (0.2 mg/dL)
[2017-09-18 14:14] LABS: BACTERIA,URINE FEW /HPF (0-FEW); RBC,URINE 0 /HPF (0-2); SQUAMOUS EPITHELIAL CELL,UR OCC /LPF; WBC,URINE OCC /HPF (0-4)
--- NOTE | 2017-09-18 14:46 | PDOC ---
PROGRESS NOTES Chief Complaint Chief Complaint pneumonia, RML opacity, cough and dyspnea acute hypoxic respiratory failure consider early COPD, consult PULM, neb sepsis, from SIRS, abx given, anemia, acute on chronic, check stool, retic count low, consult heme = tobaccoism, anxiety d/o, wants to leave, IV ativan given X2 History of Present Illness History of Present Illness admit overnight, upset and restless this PM, wants to leave, her is here to assist s/p 1 u PRBC, hgb improved slightly Vitals Vitals Vital Signs Date Time Temp Pulse Resp B/P (MAP) Pulse Ox O2 Delivery O2 Flow Rate FiO2 09/18/17 13:23 75 Nasal Cannula 6.0 09/18/17 11:00 98.1 110 23 112/62 (79) 98.1 Physical Exam General: Alert, Oriented X3, Cooperative, No acute distress Heart: Regular rate, Normal S1 Abdomen: Normal bowel sounds, Soft, No hepatosplenomegaly Extremities: No clubbing, No edema, Normal pulses Skin: No breakdown, No significant lesion Labs LABS Laboratory Tests Test 09/17/17 15:15 09/17/17 15:48 09/17/17 16:50 09/17/17 17:00 White Blood Count 15.4 x10^3/uL (4.0-11.0) Red Blood Count 2.46 x10^6/uL (3.50-5.40) Hemoglobin 5.0 g/dL (12.0-15.5) Hematocrit 17.5 % (36.0-47.0) Mean Corpuscular Volume 71 fL (79-100) Mean Corpuscular Hemoglobin 20 pg (25-35) Mean Corpuscular Hemoglobin Concent 29 g/dL (31-37) Red Cell Distribution Width 25.9 % (11.5-14.5) Platelet Count 354 x10^3/uL (140-400) Neutrophils (%) (Auto) 78 % (31-73) Lymphocytes (%) (Auto) 8 % (24-48) Monocytes (%) (Auto) 8 % (0-9) Eosinophils (%) (Auto) 5 % (0-3) Basophils (%) (Auto) 1 % (0-3) Neutrophils # (Auto) 12.0 x10^3uL (1.8-7.7) Lymphocytes # (Auto) 1.2 x10^3/uL (1.0-4.8) Monocytes # (Auto) 1.2 x10^3/uL (0.0-1.1) Eosinophils # (Auto) 0.8 x10^3/uL (0.0-0.7) Basophils # (Auto) 0.2 x10^3/uL (0.0-0.2) Platelet Estimate Adequate (ADEQUATE) Polychromasia Present Hypochromasia Mod Poikilocytosis Slight Anisocytosis Marked Microcytosis Mod Tear Drop Cells Occ Ovalocytes Few Schistocytes Occ Haptoglobin 265 mg/dL (34-200) Prothrombin Time 14.3 SEC (11.7-14.0) Prothromb Time International Ratio 1.2 (0.8-1.1) Activated Partial Thromboplast Time 33 SEC (24-38) Fibrinogen 727 mg/dL (200-440) Sodium Level 141 mmol/L (136-145) Potassium Level 3.1 mmol/L (3.5-5.1) Chloride Level 107 mmol/L (98-107) Carbon Dioxide Level 20 mmol/L (21-32) Anion Gap 14 (6-14) 14 mmol/L (6-14) Blood Urea Nitrogen 21 mg/dL (7-20) Creatinine 1.5 mg/dL (0.6-1.0) Estimated GFR (Cockcroft-Gault) 35.4 BUN/Creatinine Ratio 14 (6-20) Glucose Level 127 mg/dL (70-99) 118 mg/dL (70-99) Calcium Level 9.2 mg/dL (8.5-10.1) Total Bilirubin 0.4 mg/dL (0.2-1.0) Aspartate Amino Transf (AST/SGOT) 29 U/L (15-37) Alanine Aminotransferase (ALT/SGPT) 11 U/L (14-59) Alkaline Phosphatase 73 U/L (46-116) Lactate Dehydrogenase 452 U/L (81-234) Total Protein 6.6 g/dL (6.4-8.2) Albumin 2.6 g/dL (3.4-5.0) Albumin/Globulin Ratio 0.7 (1.0-1.7) Thyroid Stimulating Hormone (TSH) 0.677 uIU/mL (0.358-3.74) Bedside Hemoglobin 6.1 g/dL (12-15) Bedside Hematocrit 18 % (36-40) Bedside Sodium 141 mmol/L (135-145) Bedside Potassium 3.3 mmol/L (3.5-5.0) Bedside Chloride 110 mmol/L (98-110) Bedside Total CO2 22 mmol/L (23-32) Bedside Blood Urea Nitrogen 24 mg/dL (8-26) Bedside Creatinine 1.4 mg/dL (0.5-1.4) Bedside Ionized Calcium (Emily) 1.20 mmol/L (1.13-1.32) Bedside Troponin I 0.01 ng/ml (<0.08) Lactic Acid Level 1.1 mmol/L (0.4-2.0) Test 09/18/17 04:10 09/18/17 12:10 09/18/17 13:45 White Blood Count 14.4 x10^3/uL (4.0-11.0) Red Blood Count 2.64 x10^6/uL (3.50-5.40) Hemoglobin 5.9 g/dL (12.0-15.5) 7.7 g/dL (12.0-15.5) Hematocrit 19.7 % (36.0-47.0) 25.5 % (36.0-47.0) Mean Corpuscular Volume 75 fL (79-100) Mean Corpuscular Hemoglobin 22 pg (25-35) Mean Corpuscular Hemoglobin Concent 30 g/dL (31-37) Red Cell Distribution Width 27.7 % (11.5-14.5) Platelet Count 332 x10^3/uL (140-400) Neutrophils (%) (Auto) 83 % (31-73) Lymphocytes (%) (Auto) 5 % (24-48) Monocytes (%) (Auto) 9 % (0-9) Eosinophils (%) (Auto) 2 % (0-3) Basophils (%) (Auto) 1 % (0-3) Neutrophils # (Auto) 12.0 x10^3uL (1.8-7.7) Lymphocytes # (Auto) 0.8 x10^3/uL (1.0-4.8) Monocytes # (Auto) 1.3 x10^3/uL (0.0-1.1) Eosinophils # (Auto) 0.3 x10^3/uL (0.0-0.7) Basophils # (Auto) 0.1 x10^3/uL (0.0-0.2) Reticulocyte Count (auto) 1.6 % (0.5-2.5) Sodium Level 144 mmol/L (136-145) Potassium Level 3.4 mmol/L (3.5-5.1) Chloride Level 110 mmol/L (98-107) Carbon Dioxide Level 20 mmol/L (21-32) Anion Gap 14 (6-14) Blood Urea Nitrogen 21 mg/dL (7-20) Creatinine 1.4 mg/dL (0.6-1.0) Estimated GFR (Cockcroft-Gault) 38.4 BUN/Creatinine Ratio 15 (6-20) Glucose Level 102 mg/dL (70-99) Calcium Level 8.3 mg/dL (8.5-10.1) Iron Level 12 ug/dL (50-170) Total Iron Binding Capacity 348 ug/dL (250-450) Iron Saturation 3 % (15-34) Total Bilirubin 0.5 mg/dL (0.2-1.0) Aspartate Amino Transf (AST/SGOT) 16 U/L (15-37) Alanine Aminotransferase (ALT/SGPT) 9 U/L (14-59) Alkaline Phosphatase 88 U/L (46-116) SR-Shw-T-Type Natriuretic Peptide 4983 pg/mL (0-124) Total Protein 6.3 g/dL (6.4-8.2) Albumin 2.5 g/dL (3.4-5.0) Albumin/Globulin Ratio 0.7 (1.0-1.7) Erythrocyte Sedimentation Rate 94 (0-25) Vitamin B12 Level 500 pg/mL (247-911) Serum Folate 9.79 ng/ml (3.2-20.0) Urine Color Yellow Urine Clarity Clear Urine pH 6.0 Urine Specific [place] 1.010 Urine Protein Negative mg/dL (NEG-TRACE) Urine Glucose (UA) Negative mg/dL (NEG) Urine Ketones (Stick) Negative mg/dL (NEG) Urine Blood Negative (NEG) Urine Nitrite Negative (NEG) Urine Bilirubin Negative (NEG) Urine Urobilinogen Dipstick 0.2 mg/dL (0.2 mg/dL) Urine Leukocyte Esterase Negative (NEG) Urine RBC 0 /HPF (0-2) Urine WBC Occ /HPF (0-4) Urine Squamous Epithelial Cells Occ /LPF Urine Bacteria Few /HPF (0-FEW) Review of Systems Review of Systems anxiety dyspnea insomnia Assessment and Plan Assessmemt and Plan Problems Medical Problems: (1) Dyspnea Status: Acute (2) Hypoalbuminemia Status: Acute (3) Metabolic acidosis Status: Acute (4) Pneumonia Status: Acute Problems: Comment Review of Relevant I have reviewed the following items tha (where applicable) has been applied. Labs Laboratory Tests Test 09/17/17 15:15 09/17/17 15:48 09/17/17 16:50 09/17/17 17:00 White Blood Count 15.4 x10^3/uL (4.0-11.0) Red Blood Count 2.46 x10^6/uL (3.50-5.40) Hemoglobin 5.0 g/dL (12.0-15.5) Hematocrit 17.5 % (36.0-47.0) Mean Corpuscular Volume 71 fL (79-100) Mean Corpuscular Hemoglobin 20 pg (25-35) Mean Corpuscular Hemoglobin Concent 29 g/dL (31-37) Red Cell Distribution Width 25.9 % (11.5-14.5) Platelet Count 354 x10^3/uL (140-400) Neutrophils (%) (Auto) 78 % (31-73) Lymphocytes (%) (Auto) 8 % (24-48) Monocytes (%) (Auto) 8 % (0-9) Eosinophils (%) (Auto) 5 % (0-3) Basophils (%) (Auto) 1 % (0-3) Neutrophils # (Auto) 12.0 x10^3uL (1.8-7.7) Lymphocytes # (Auto) 1.2 x10^3/uL (1.0-4.8) Monocytes # (Auto) 1.2 x10^3/uL (0.0-1.1) Eosinophils # (Auto) 0.8 x10^3/uL (0.0-0.7) Basophils # (Auto) 0.2 x10^3/uL (0.0-0.2) Platelet Estimate Adequate (ADEQUATE) Polychromasia Present Hypochromasia Mod Poikilocytosis Slight Anisocytosis Marked Microcytosis Mod Tear Drop Cells Occ Ovalocytes Few Schistocytes Occ Haptoglobin 265 mg/dL (34-200) Prothrombin Time 14.3 SEC (11.7-14.0) Prothromb Time International Ratio 1.2 (0.8-1.1) Activated Partial Thromboplast Time 33 SEC (24-38) Fibrinogen 727 mg/dL (200-440) Sodium Level 141 mmol/L (136-145) Potassium Level 3.1 mmol/L (3.5-5.1) Chloride Level 107 mmol/L (98-107) Carbon Dioxide Level 20 mmol/L (21-32) Anion Gap 14 (6-14) 14 mmol/L (6-14) Blood Urea Nitrogen 21 mg/dL (7-20) Creatinine 1.5 mg/dL (0.6-1.0) Estimated GFR (Cockcroft-Gault) 35.4 BUN/Creatinine Ratio 14 (6-20) Glucose Level 127 mg/dL (70-99) 118 mg/dL (70-99) Calcium Level 9.2 mg/dL (8.5-10.1) Total Bilirubin 0.4 mg/dL (0.2-1.0) Aspartate Amino Transf (AST/SGOT) 29 U/L (15-37) Alanine Aminotransferase (ALT/SGPT) 11 U/L (14-59) Alkaline Phosphatase 73 U/L (46-116) Lactate Dehydrogenase 452 U/L (81-234) Total Protein 6.6 g/dL (6.4-8.2) Albumin 2.6 g/dL (3.4-5.0) Albumin/Globulin Ratio 0.7 (1.0-1.7) Thyroid Stimulating Hormone (TSH) 0.677 uIU/mL (0.358-3.74) Bedside Hemoglobin 6.1 g/dL (12-15) Bedside Hematocrit 18 % (36-40) Bedside Sodium 141 mmol/L (135-145) Bedside Potassium 3.3 mmol/L (3.5-5.0) Bedside Chloride 110 mmol/L (98-110) Bedside Total CO2 22 mmol/L (23-32) Bedside Blood Urea Nitrogen 24 mg/dL (8-26) Bedside Creatinine 1.4 mg/dL (0.5-1.4) Bedside Ionized Calcium (Emily) 1.20 mmol/L (1.13-1.32) Bedside Troponin I 0.01 ng/ml (<0.08) Lactic Acid Level 1.1 mmol/L (0.4-2.0) Test 09/18/17 04:10 09/18/17 12:10 09/18/17 13:45 White Blood Count 14.4 x10^3/uL (4.0-11.0) Red Blood Count 2.64 x10^6/uL (3.50-5.40) Hemoglobin 5.9 g/dL (12.0-15.5) 7.7 g/dL (12.0-15.5) Hematocrit 19.7 % (36.0-47.0) 25.5 % (36.0-47.0) Mean Corpuscular Volume 75 fL (79-100) Mean Corpuscular Hemoglobin 22 pg (25-35) Mean Corpuscular Hemoglobin Concent 30 g/dL (31-37) Red Cell Distribution Width 27.7 % (11.5-14.5) Platelet Count 332 x10^3/uL (140-400) Neutrophils (%) (Auto) 83 % (31-73) Lymphocytes (%) (Auto) 5 % (24-48) Monocytes (%) (Auto) 9 % (0-9) Eosinophils (%) (Auto) 2 % (0-3) Basophils (%) (Auto) 1 % (0-3) Neutrophils # (Auto) 12.0 x10^3uL (1.8-7.7) Lymphocytes # (Auto) 0.8 x10^3/uL (1.0-4.8) Monocytes # (Auto) 1.3 x10^3/uL (0.0-1.1) Eosinophils # (Auto) 0.3 x10^3/uL (0.0-0.7) Basophils # (Auto) 0.1 x10^3/uL (0.0-0.2) Reticulocyte Count (auto) 1.6 % (0.5-2.5) Sodium Level 144 mmol/L (136-145) Potassium Level 3.4 mmol/L (3.5-5.1) Chloride Level 110 mmol/L (98-107) Carbon Dioxide Level 20 mmol/L (21-32) Anion Gap 14 (6-14) Blood Urea Nitrogen 21 mg/dL (7-20) Creatinine 1.4 mg/dL (0.6-1.0) Estimated GFR (Cockcroft-Gault) 38.4 BUN/Creatinine Ratio 15 (6-20) Glucose Level 102 mg/dL (70-99) Calcium Level 8.3 mg/dL (8.5-10.1) Iron Level 12 ug/dL (50-170) Total Iron Binding Capacity 348 ug/dL (250-450) Iron Saturation 3 % (15-34) Total Bilirubin 0.5 mg/dL (0.2-1.0) Aspartate Amino Transf (AST/SGOT) 16 U/L (15-37) Alanine Aminotransferase (ALT/SGPT) 9 U/L (14-59) Alkaline Phosphatase 88 U/L (46-116) DD-Vgr-O-Type Natriuretic Peptide 4983 pg/mL (0-124) Total Protein 6.3 g/dL (6.4-8.2) Albumin 2.5 g/dL (3.4-5.0) Albumin/Globulin Ratio 0.7 (1.0-1.7) Erythrocyte Sedimentation Rate 94 (0-25) Vitamin B12 Level 500 pg/mL (247-911) Serum Folate 9.79 ng/ml (3.2-20.0) Urine Color Yellow Urine Clarity Clear Urine pH 6.0 Urine Specific [place] 1.010 Urine Protein Negative mg/dL (NEG-TRACE) Urine Glucose (UA) Negative mg/dL (NEG) Urine Ketones (Stick) Negative mg/dL (NEG) Urine Blood Negative (NEG) Urine Nitrite Negative (NEG) Urine Bilirubin Negative (NEG) Urine Urobilinogen Dipstick 0.2 mg/dL (0.2 mg/dL) Urine Leukocyte Esterase Negative (NEG) Urine RBC 0 /HPF (0-2) Urine WBC Occ /HPF (0-4) Urine Squamous Epithelial Cells Occ /LPF Urine Bacteria Few /HPF (0-FEW) Laboratory Tests Test 09/17/17 15:15 09/17/17 15:48 09/17/17 16:50 09/17/17 17:00 White Blood Count 15.4 x10^3/uL (4.0-11.0) Red Blood Count 2.46 x10^6/uL (3.50-5.40) Hemoglobin 5.0 g/dL (12.0-15.5) Hematocrit 17.5 % (36.0-47.0) Mean Corpuscular Volume 71 fL (79-100) Mean Corpuscular Hemoglobin 20 pg (25-35) Mean Corpuscular Hemoglobin Concent 29 g/dL (31-37) Red Cell Distribution Width 25.9 % (11.5-14.5) Platelet Count 354 x10^3/uL (140-400) Neutrophils (%) (Auto) 78 % (31-73) Lymphocytes (%) (Auto) 8 % (24-48) Monocytes (%) (Auto) 8 % (0-9) Eosinophils (%) (Auto) 5 % (0-3) Basophils (%) (Auto) 1 % (0-3) Neutrophils # (Auto) 12.0 x10^3uL (1.8-7.7) Lymphocytes # (Auto) 1.2 x10^3/uL (1.0-4.8) Monocytes # (Auto) 1.2 x10^3/uL (0.0-1.1) Eosinophils # (Auto) 0.8 x10^3/uL (0.0-0.7) Basophils # (Auto) 0.2 x10^3/uL (0.0-0.2) Platelet Estimate Adequate (ADEQUATE) Polychromasia Present Hypochromasia Mod Poikilocytosis Slight Anisocytosis Marked Microcytosis Mod Tear Drop Cells Occ Ovalocytes Few Schistocytes Occ Haptoglobin 265 mg/dL (34-200) Prothrombin Time 14.3 SEC (11.7-14.0) Prothromb Time International Ratio 1.2 (0.8-1.1) Activated Partial Thromboplast Time 33 SEC (24-38) Fibrinogen 727 mg/dL (200-440) Sodium Level 141 mmol/L (136-145) Potassium Level 3.1 mmol/L (3.5-5.1) Chloride Level 107 mmol/L (98-107) Carbon Dioxide Level 20 mmol/L (21-32) Anion Gap 14 (6-14) 14 mmol/L (6-14) Blood Urea Nitrogen 21 mg/dL (7-20) Creatinine 1.5 mg/dL (0.6-1.0) Estimated GFR (Cockcroft-Gault) 35.4 BUN/Creatinine Ratio 14 (6-20) Glucose Level 127 mg/dL (70-99) 118 mg/dL (70-99) Calcium Level 9.2 mg/dL (8.5-10.1) Total Bilirubin 0.4 mg/dL (0.2-1.0) Aspartate Amino Transf (AST/SGOT) 29 U/L (15-37) Alanine Aminotransferase (ALT/SGPT) 11 U/L (14-59) Alkaline Phosphatase 73 U/L (46-116) Lactate Dehydrogenase 452 U/L (81-234) Total Protein 6.6 g/dL (6.4-8.2) Albumin 2.6 g/dL (3.4-5.0) Albumin/Globulin Ratio 0.7 (1.0-1.7) Thyroid Stimulating Hormone (TSH) 0.677 uIU/mL (0.358-3.74) Bedside Hemoglobin 6.1 g/dL (12-15) Bedside Hematocrit 18 % (36-40) Bedside Sodium 141 mmol/L (135-145) Bedside Potassium 3.3 mmol/L (3.5-5.0) Bedside Chloride 110 mmol/L (98-110) Bedside Total CO2 22 mmol/L (23-32) Bedside Blood Urea Nitrogen 24 mg/dL (8-26) Bedside Creatinine 1.4 mg/dL (0.5-1.4) Bedside Ionized Calcium (Emily) 1.20 mmol/L (1.13-1.32) Bedside Troponin I 0.01 ng/ml (<0.08) Lactic Acid Level 1.1 mmol/L (0.4-2.0) Test 09/18/17 04:10 09/18/17 12:10 09/18/17 13:45 White Blood Count 14.4 x10^3/uL (4.0-11.0) Red Blood Count 2.64 x10^6/uL (3.50-5.40) Hemoglobin 5.9 g/dL (12.0-15.5) 7.7 g/dL (12.0-15.5) Hematocrit 19.7 % (36.0-47.0) 25.5 % (36.0-47.0) Mean Corpuscular Volume 75 fL (79-100) Mean Corpuscular Hemoglobin 22 pg (25-35) Mean Corpuscular Hemoglobin Concent 30 g/dL (31-37) Red Cell Distribution Width 27.7 % (11.5-14.5) Platelet Count 332 x10^3/uL (140-400) Neutrophils (%) (Auto) 83 % (31-73) Lymphocytes (%) (Auto) 5 % (24-48) Monocytes (%) (Auto) 9 % (0-9) Eosinophils (%) (Auto) 2 % (0-3) Basophils (%) (Auto) 1 % (0-3) Neutrophils # (Auto) 12.0 x10^3uL (1.8-7.7) Lymphocytes # (Auto) 0.8 x10^3/uL (1.0-4.8) Monocytes # (Auto) 1.3 x10^3/uL (0.0-1.1) Eosinophils # (Auto) 0.3 x10^3/uL (0.0-0.7) Basophils # (Auto) 0.1 x10^3/uL (0.0-0.2) Reticulocyte Count (auto) 1.6 % (0.5-2.5) Sodium Level 144 mmol/L (136-145) Potassium Level 3.4 mmol/L (3.5-5.1) Chloride Level 110 mmol/L (98-107) Carbon Dioxide Level 20 mmol/L (21-32) Anion Gap 14 (6-14) Blood Urea Nitrogen 21 mg/dL (7-20) Creatinine 1.4 mg/dL (0.6-1.0) Estimated GFR (Cockcroft-Gault) 38.4 BUN/Creatinine Ratio 15 (6-20) Glucose Level 102 mg/dL (70-99) Calcium Level 8.3 mg/dL (8.5-10.1) Iron Level 12 ug/dL (50-170) Total Iron Binding Capacity 348 ug/dL (250-450) Iron Saturation 3 % (15-34) Total Bilirubin 0.5 mg/dL (0.2-1.0) Aspartate Amino Transf (AST/SGOT) 16 U/L (15-37) Alanine Aminotransferase (ALT/SGPT) 9 U/L (14-59) Alkaline Phosphatase 88 U/L (46-116) JR-Lms-R-Type Natriuretic Peptide 4983 pg/mL (0-124) Total Protein 6.3 g/dL (6.4-8.2) Albumin 2.5 g/dL (3.4-5.0) Albumin/Globulin Ratio 0.7 (1.0-1.7) Erythrocyte Sedimentation Rate 94 (0-25) Vitamin B12 Level 500 pg/mL (247-911) Serum Folate 9.79 ng/ml (3.2-20.0) Urine Color Yellow Urine Clarity Clear Urine pH 6.0 Urine Specific [place] 1.010 Urine Protein Negative mg/dL (NEG-TRACE) Urine Glucose (UA) Negative mg/dL (NEG) Urine Ketones (Stick) Negative mg/dL (NEG) Urine Blood Negative (NEG) Urine Nitrite Negative (NEG) Urine Bilirubin Negative (NEG) Urine Urobilinogen Dipstick 0.2 mg/dL (0.2 mg/dL) Urine Leukocyte Esterase Negative (NEG) Urine RBC 0 /HPF (0-2) Urine WBC Occ /HPF (0-4) Urine Squamous Epithelial Cells Occ /LPF Urine Bacteria Few /HPF (0-FEW) Medications Current Medications Sodium Chloride 1,000 ml @ 125 mls/hr 1X ONCE IV Last administered on 15:54; Start 09/17/17 at 15:15; Stop 09/17/17 at 23:14; Status DC Ondansetron HCl (Zofran) 4 mg PRN Q8HRS PRN IV NAUSEA/VOMITING; Start at 16:30; Stop 09/18/17 at 16:29 Ceftriaxone Sodium 50 ml @ 0 mls/hr 1X ONCE IV Last administered on 17:33; Start 09/17/17 at 16:45; Stop 09/17/17 at 16:46; Status DC Azithromycin 250 ml @ 250 mls/hr 1X ONCE IV Last administered on 09/17/17 22:38; Start 09/17/17 at 16:30; Stop 09/17/17 at 17:29; Status DC Albuterol/ Ipratropium (Duoneb) 3 ml 1X ONCE NEB Last administered on 17:00; Start 09/17/17 at 16:45; Stop 09/17/17 at 16:46; Status DC Potassium Chloride (Klor-Con) 40 meq 1X ONCE PO Last administered on 16:57; Start 09/17/17 at 16:45; Stop 09/17/17 at 16:46; Status DC Azithromycin (Zithromax) 250 mg DAILY PO Last administered on 09/18/17 10:25 ; Start 09/18/17 at 09:00 Ceftriaxone Sodium 1 gm/ Dextrose 50 ml @ 100 mls/hr Q24H IV ; Start 09/17/17 at 17:15; Status UNV Albuterol/ Ipratropium (Duoneb) 3 ml Q4HRS NEB Last administered on 09/18/17 11:50; Start 09/17/17 at 20:00 Ceftriaxone Sodium (Rocephin) 1 gm Q24H IVP ; Start 09/18/17 at 16:00 Guaifenesin (Robitussin Dm) 10 ml PRN Q6HRS PRN PO COUGH; Start 09/17/17 at 17 :15 Sodium Chloride 1,000 ml @ 125 mls/hr 1X ONCE IV Last administered on 17:45; Start 09/17/17 at 17:15; Stop 09/17/17 at 22:12; Status DC Info (Do NOT chart on this placeholder) 1 each 1X ONCE MC ; Start 09/17/17 at 19:00; Stop 09/17/17 at 19:01; Status UNV Influenza Virus Vaccine Quadrival (Fluarix Quad [id number] Syringe) 0.5 ml ONCE ONCE VAX IM ; Start 09/17/17 at 21:00; Stop 09/17/17 at 21:01; Status DC Sodium Chloride 1,000 ml @ 130 mls/hr 1X ONCE IV Last administered on 22:31; Start 09/17/17 at 22:30; Stop 09/18/17 at 06:11; Status DC Sodium Bicarbonate 50 meq 1X ONCE IV Last administered on 09/17/17 22:31; Start 09/17/17 at 22:30; Stop 09/17/17 at 22:31; Status DC Alprazolam (Xanax) 1 mg PRN TID PRN PO ANXIETY Last administered on 09/18/17 10:25; Start 09/17/17 at 22:30 Furosemide (Lasix) 20 mg 1X ONCE IVP Last administered on 09/18/17 06:24; Start 09/18/17 at 06:30; Stop 09/18/17 at 06:31; Status DC Potassium Chloride (Klor-Con) 40 meq 1X ONCE PO Last administered on 10:25; Start 09/18/17 at 09:00; Stop 09/18/17 at 09:01; Status DC Iron Sucrose 500 mg/Sodium Chloride 275 ml @ 78.571 mls/ hr 1X ONCE IV Last administered on 09/18/17 10:24; Start 09/18/17 at 09:00; Stop 09/18/17 at 12 :29; Status DC Furosemide (Lasix) 20 mg 1X ONCE IVP Last administered on 09/18/17 10:30; Start 09/18/17 at 10:00; Stop 09/18/17 at 10:22; Status DC Pantoprazole Sodium (Protonix) 40 mg DAILYAC PO Last administered on 10:47; Start 09/18/17 at 11:00 Furosemide (Lasix) 20 mg 1X ONCE IVP Last administered on 09/18/17 10:47; Start 09/18/17 at 10:45; Stop 09/18/17 at 10:46; Status DC Potassium Chloride (Klor-Con) 40 meq 1X ONCE PO ; Start 09/18/17 at 11:45; Stop 09/18/17 at 11:46; Status DC Oxycodone/ Acetaminophen (Percocet 5/325) 1 tab PRN Q6HRS PRN PO PAIN Last administered on 09/18/17 13:23; Start 09/18/17 at 12:15 Lorazepam (Ativan) 1 mg PRN Q4HRS PRN IV ANXIETY / AGITATION Last administered on 09/18/17 12:25; Start 09/18/17 at 12:15; Stop 09/18/17 at 13:34; Status DC Fentanyl Citrate (Fentanyl 2ml Vial) 50 mcg PRN Q2HR PRN IV PAIN; Start at 12:15 Lorazepam (Ativan) 2 mg PRN Q4HRS PRN IV ANXIETY / AGITATION Last administered on 09/18/17 13:53; Start 09/18/17 at 13:30 Quetiapine Fumarate (SEROquel) 25 mg HS PO ; Start 09/18/17 at 21:00 Haloperidol Lactate (Haldol) 5 mg PRN Q12HRS PRN IVP AGITATION; Start at 13:45 Active Scripts Active Reported Gabapentin 300 Mg Capsule 300 Mg PO TID Cymbalta (Duloxetine Hcl) 60 Mg Capsule.dr 1 Cap PO BID Hydrochlorothiazide Tablet (Hydrochlorothiazide) 25 Mg Tablet 1 Tab PO DAILY Xanax (Alprazolam) 1 Mg Tablet 1 Tab PO TID PRN Vitals/I & O Vital Sign - Last 24 Hours 09/17/17 09/17/17 09/17/17 09/17/17 14:55 15:26 15:56 16:26 Temp 97.7 97.7 Pulse 95 94 98 Resp 24 B/P (MAP) 105/60 (75) 105/63 (77) 99/54 (69) 88/64 (72) Pulse Ox 95 96 O2 Delivery Room Air Room Air 09/17/17 09/17/17 09/17/17 09/17/17 16:56 17:01 17:26 18:24 Temp 98.1 98.1 Pulse 107 100 Resp 22 B/P (MAP) 84/45 (58) 91/66 (74) 97/45 (62) Pulse Ox 91 O2 Delivery Room Air Nasal Cannula O2 Flow Rate 2.0 09/17/17 09/17/17 09/17/17 09/17/17 18:25 18:43 18:58 19:25 Temp 98.1 97.7 97.6 98.1 97.7 97.6 Pulse 100 99 106 Resp 22 20 24 B/P (MAP) 97/45 (62) 101/53 132/56 Pulse Ox 98 O2 Delivery Nasal Cannula Nasal Cannula O2 Flow Rate 2.0 2.0 09/17/17 09/17/17 09/17/17 09/17/17 19:25 19:50 20:40 20:50 Temp 97.5 98.2 97.5 98.2 Pulse 104 110 Resp 20 20 B/P (MAP) 108/54 114/79 Pulse Ox 94 O2 Delivery Nasal Cannula Nasal Cannula O2 Flow Rate 2.0 2.0 09/17/17 09/17/17 09/17/1717 21:15 21:15 22:15 23:43 Temp 97.7 97.7 97.8 97.7 97.7 97.8 Pulse 107 107 106 Resp 20 20 20 B/P (MAP) 121/71 121/71 117/73 (88) Pulse Ox 94 92 O2 Delivery Nasal Cannula Nasal Cannula O2 Flow Rate 2.0 2.0 09/18/17 09/18/17 09/18/17 09/18/17 03:00 03:35 07:00 07:24 Temp 98.5 98.4 97.9 98.5 98.4 97.9 Pulse 102 109 112 Resp 21 24 B/P (MAP) 109/68 (82) 123/56 (78) 104/59 Pulse Ox 94 92 94 O2 Delivery Nasal Cannula Nasal Cannula Nasal Cannula O2 Flow Rate 2.5 2.0 2.0 09/18/17 09/18/17 09/18/17 09/18/17 07:34 07:46 08:19 08:46 Temp 97.5 97.6 97.5 97.6 Pulse 109 115 Resp 24 26 B/P (MAP) 123/56 122/59 Pulse Ox 90 O2 Delivery Nasal Cannula Nasal Cannula O2 Flow Rate 2.0 2.0 09/18/17 09/18/17 09/18/17 09/18/17 09:46 10:20 11:00 11:50 Temp 98.7 98.7 98.1 98.7 98.7 98.1 Pulse 111 111 110 Resp 23 B/P (MAP) 116/74 112/62 112/62 (79) Pulse Ox 83 O2 Delivery Nasal Cannula Nasal Cannula O2 Flow Rate 2.0 4.0 09/18/17 13:23 Pulse Ox 75 O2 Delivery Nasal Cannula O2 Flow Rate 6.0 Intake and Output 09/17/17 09/17/17 09/18/17 15:00 23:00 07:00 Intake Total 1310 ml 450 ml Output Total 940 ml 200 ml Balance 370 ml 250 ml ABELARDO MOORE MD Sep 18, 2017 14:46
[2017-09-18] MEDS ORDERED: cefTRIAXone IV Push 1 GM VIAL. IVP SCH (16:00)
--- NOTE | 2017-09-18 16:58 | CARD ---
APPROVED REPORT EXAM: Two-dimensional and M-mode echocardiogram with Doppler and color Doppler. Other Information Quality : GoodHR: 104bpm INDICATION Dyspnea 2D DIMENSIONS Left Atrium(2D)5.2 (1.6-4.0cm)IVSd1.3 (0.7-1.1cm) Aortic Root(2D)2.9 (2.0-3.7cm)LVDd4.5 (3.9-5.9cm) LVOT Diameter2.0 (1.8-2.4cm)PWd1.2 (0.7-1.1cm) LVDs3.1 (2.5-4.0cm)FS (%) 32.0 % SV56.3 mlLVEF(%)60.3 (>50%) Aortic Valve AoV Peak Rebel.228.8cm/sAoV VTI31.6cm AO Peak GR.20.9mmHgLVOT Peak Rebel.170.3cm/s AO Mean GR.11mmHgAVA (VMAX)2.44cm2 NICK (VTI)2.90cm2 Mitral Valve MV E Qjixcbaw165.0cm/sMV E Peak Gr.18mmHg MV DECEL [id number] A Qgtlrsiw833.2cm/s E/A Ratio1.1 Tricuspid Valve TR P. [id number]/sRAP [id number] TR Peak Gr.[id number] LEFT VENTRICLE The left ventricle is normal size. There is mild concentric left ventricular hypertrophy. Left ventri rylie systolic function is normal. The Ejection Fraction is 55-60%. There is normal LV segmental wall m otion. Tissue Doppler imaging reveals abnormal left ventricular diastolic dysfunction. RIGHT VENTRICLE The right ventricle is normal size. The right ventricular systolic function is normal. ATRIA The left atrium is mild to moderately dilated. The right atrium size is normal. The interatrial septu m is intact with no evidence for an atrial septal defect or patent foramen ovale as noted on 2-D or D oppler imaging. AORTIC VALVE The aortic valve is calcified but opens well. Doppler and Color Flow revealed no significant aortic r egurgitation. There is no significant aortic valvular stenosis. MITRAL VALVE The mitral valve is calcified but opens well. There is no evidence of mitral valve prolapse. There is no mitral valve stenosis. Doppler and Color-flow revealed moderate mitral regurgitation. TRICUSPID VALVE The tricuspid valve is normal in structure. Doppler and Color Flow revealed mild tricuspid regurgitat ion. There is no tricuspid valve prolapse or vegetation. There is no tricuspid valve stenosis. PULMONIC VALVE The pulmonary valve is normal in structure and function. GREAT VESSELS The aortic root is normal in size. The ascending aorta is normal in size. The IVC is normal in size a nd collapses >50% with inspiration. PERICARDIAL EFFUSION There is no pleural effusion. There is no evidence of significant pericardial effusion. Critical Notification Critical Value: No <Conclusion> The left ventricle is normal size. Left ventricle systolic function is normal. The Ejection Fraction is 55-60%. There is mild concentric left ventricular hypertrophy. There is no significant aortic valvular stenosis. Doppler and Color Flow revealed no significant aortic regurgitation. Doppler and Color-flow revealed moderate mitral regurgitation. Doppler and Color Flow revealed mild tricuspid regurgitation.
--- NOTE | 2017-09-18 17:40 | RAD ---
CT of the chest without contrast, 09/18/2017: History: Hypoxia Noncontrast scans were obtained as requested. The heart is within normal limits in size. There is only minimal aortic calcific plaquing. The thoracic aorta is of normal caliber. Several small mediastinal lymph nodes are present without evidence of pathologic enlargement. There are calcified lymph nodes at the right hilum and in the subcarinal region compatible with old granulomatous disease. There are moderate patchy infiltrates in both lungs. The infiltrates are predominantly groundglass in nature although there is underlying septal thickening as well. Some of these opacities are nondependent. No underlying bronchial obstruction or bronchiectasis is seen. There are small to moderate size bilateral pleural effusions, right greater than left. There are moderate multilevel degenerative changes in the spine. IMPRESSION: 1. Mixed bilateral groundglass and interstitial pulmonary opacities with multiple diagnostic considerations including infection, pulmonary edema, ARDS as well as an uncommon entities such as alveolar proteinosis. 2. Small to moderate size bilateral pleural effusions. PQRS Compliance Statement: One or more of the following individualized dose reduction techniques were utilized for this examination: 1. Automated exposure control 2. Adjustment of the mA and/or kV according to patient size 3. Use of iterative reconstruction technique
[2017-09-18 17:46] LABS: HCO3 ABG 18 mmol/L (21-28); PCO2 ABG 32 mmHg (35-46); PH ABG 7.38 (7.35-7.45); PO2 ABG 68 mmHg (65-108); SAT O2 ABG 91 % (92-99)
[2017-09-18 17:51] LABS: FIO2 ABG 60
[2017-09-18] MEDS ORDERED: QUEtiapine 25 MG TABLET. PO SCH (21:00)
[2017-09-19] VITALS (35 sets, daily range): BP systolic 85–161; BP diastolic 52–84
[2017-09-19] MEDS: fentaNYL PF VIAL 100 MCG/2 ML VIAL IV PRN ×2 (01:03→04:09)
[2017-09-19] MEDS: ALPRAZolam 1 MG TABLET PO PRN (02:19)
--- NOTE | 2017-09-19 02:46 | CONS ---
DATE OF CONSULTATION: 09/18/2017 MEDICAL ONCOLOGY CONSULTATION REPORT REASON FOR CONSULTATION: Severe anemia. HISTORY OF PRESENTING ILLNESS: The patient is a 62-year-old female who [facility] with complaints of shortness of breath. Chest x-ray was consistent with pneumonia. She was noted to have severe anemia with a hemoglobin of 5.9 on 09/18/2017 and hence I was consulted. Her hemoglobin on 09/17/2017 was 5.0. She denies hematemesis, melena, hematochezia, no hemoptysis or hematuria. No loss of weight or loss of appetite. No nausea, vomiting. No weight loss or dysphagia, no gastroesophageal reflux disease. She reports having had any colonoscopy in 2016. She was noted to have iron deficiency with iron level of 12, TIBC 348, iron saturation of only 3 and ferritin of 44. B12 was normal at 500 and folic acid 9.79 on 09/18/2017. Her reticulocyte count was 1.6 with haptoglobin of 265. She was given Venofer 500 mg IV on 09/18/2017. Her MCV is only 71. I was asked to see the patient for further evaluation of severe anemia. PAST MEDICAL HISTORY: Hypertension, peripheral aspect disease, aneurysm, venous insufficiency, anxiety, osteoarthritis, history of surgeries for leg ulcer. FAMILY HISTORY: Negative for hematologic disorders. SOCIAL HISTORY: She has history of smoking 1 pack of cigarettes per day. REVIEW OF SYSTEMS: A 12-point review of system was performed. Pertinent positives are mentioned in the history of presenting illness. Rest of the system review is negative. PHYSICAL EXAMINATION: GENERAL APPEARANCE: The patient is a 62-year-old female who is in moderate respiratory distress. VITAL SIGNS: Blood pressure 112/62, temperature 98.1. HEAD: Atraumatic, normocephalic. EYES: No icterus. NECK: Supple. CHEST: Bilaterally symmetrical, decreased air entry bilaterally. HEART: S1, S2 normal. ABDOMEN: Soft, nontender. CENTRAL NERVOUS SYSTEM: No focal deficits. LYMPHATICS: No lymphadenopathy. SKIN: No rashes. PSYCHOLOGIC: Mood and affect are appropriate. LABORATORY DATA: From 09/17/2017, WBC 15.4, hemoglobin 5.0, MCV 71, platelet count 354, haptoglobin 265, retic count 1.6. Iron studies from 09/18/2017 reveals iron level of 12, TIBC 348, iron saturation 3, ferritin 44, B12 of 500, folic acid 9.79. IMPRESSION AND PLAN: 1. Iron deficiency anemia. There is no evidence of blood loss. I agree to proceed with Gastroenterology consultation for further workup. The patient declines esophagogastroduodenoscopy and colonoscopy. Agree to pursue with iron supplementation. She received Venofer 500 mg intravenous on 09/18/2017. I will continue to monitor hemoglobin and transfuse as needed. Hemoglobin improved to 7.7 after transfusion. 2. Leukocytosis, reactive from underlying pneumonia. Management per Pulmonary Medicine. 3. Pneumonia. I appreciate consultation by Dr. Adan Thurman. ELLA ORTEGA MD DR: JASBIR/tito JOB#: [id number] / [id number] SHIRA
[2017-09-19] MEDS: IPRATRPIUM/ALBUTEROL 0.5/2.5MG 3 ML NEBU. NEB SCH ×6 (04:01→22:48)
[2017-09-19 06:11] LABS: CALCIUM 8.7 mg/dL (8.5-10.1); CREATININE 1.5 mg/dL (0.6-1.0); GFR 35.4; MAGNESIUM 1.9 mg/dL (1.8-2.4)
[2017-09-19 07:16] LABS: BASO # 0.2 x10^3/uL (0.0-0.2); BASO % 1 % (0-3); EOS % 2 % (0-3); HEMATOCRIT 21.7 % (36.0-47.0); LYMPH # 0.7 x10^3/uL (1.0-4.8); LYMPH % 4 % (24-48); MEAN CORPUSCULAR HEMOGLOBIN 22 pg (25-35); MEAN CORPUSCULAR HGB CONC 30 g/dL (31-37); MEAN CORPUSCULAR VOLUME 74 fL (79-100); MONO % 6 % (0-9); NEUT % 87 % (31-73); PLATELET COUNT 361 x10^3/uL (140-400); RED BLOOD COUNT 2.92 x10^6/uL (3.50-5.40); RED CELL DISTRIBUTION WIDTH 25.1 % (11.5-14.5); WHITE BLOOD COUNT 17.6 x10^3/uL (4.0-11.0)
[2017-09-19 07:18] LABS: HEMOGLOBIN 6.6 g/dL (12.0-15.5)
[2017-09-19] MEDS: PANTOPRAZOLE 40 MG TABLET.DR. PO SCH (07:30)
[2017-09-19 08:17] LABS: HCO3 ABG 19 mmol/L (21-28); PCO2 ABG 33 mmHg (35-46); PH ABG 7.37 (7.35-7.45); PO2 ABG 73 mmHg (65-108); SAT O2 ABG 93 % (92-99)
[2017-09-19 09:33] LABS: % BASOS 1 % (0-3)
[2017-09-19 09:34] LABS: ANISOCYTOSIS PRESENT; PLT ESTIMATE ADEQUATE (ADEQUATE)
[2017-09-19 09:35] LABS: HYPOCHROMIA PRESENT; MICROCYTOSIS PRESENT
[2017-09-19 10:13] LABS: FIO2 ABG 60
[2017-09-19] MEDS ORDERED: PIP/TAZO PER PHARMACY MC PRN (10:30)
--- NOTE | 2017-09-19 10:37 | PDOC ---
Renal-Progress Notes Subjective Notes Notes SOB History of Present Illness Hx of present illness NO CHANGE Vitals Vitals Vital Signs Date Time Temp Pulse Resp B/P (MAP) Pulse Ox O2 Delivery O2 Flow Rate FiO2 09/19/17 08:11 93 BiPAP/CPAP 09/19/17 06:00 98 28 106/62 (77) 09/19/17 04:09 60.0 09/19/17 04:00 98.8 98.8 Weight Weight [ ] I.O. Intake and Output Intake and Output 09/19/17 07:00 Intake Total 590 ml Output Total 2450 ml Balance -1860 ml Intake Oral 550 ml Blood Product IV Normal Saline Flush 40 ml Output Urine Total 2450 ml Labs Labs Laboratory Tests Test 09/18/17 12:10 09/18/17 13:45 09/18/17 17:35 09/19/17 04:20 Hemoglobin 7.7 g/dL (12.0-15.5) 6.6 g/dL (12.0-15.5) Hematocrit 25.5 % (36.0-47.0) 21.7 % (36.0-47.0) Erythrocyte Sedimentation Rate 94 (0-25) Vitamin B12 Level 500 pg/mL (247-911) Serum Folate 9.79 ng/ml (3.2-20.0) Urine Color Yellow Urine Clarity Clear Urine pH 6.0 Urine Specific [place] 1.010 Urine Protein Negative mg/dL (NEG-TRACE) Urine Glucose (UA) Negative mg/dL (NEG) Urine Ketones (Stick) Negative mg/dL (NEG) Urine Blood Negative (NEG) Urine Nitrite Negative (NEG) Urine Bilirubin Negative (NEG) Urine Urobilinogen Dipstick 0.2 mg/dL (0.2 mg/dL) Urine Leukocyte Esterase Negative (NEG) Urine RBC 0 /HPF (0-2) Urine WBC Occ /HPF (0-4) Urine Squamous Epithelial Cells Occ /LPF Urine Bacteria Few /HPF (0-FEW) O2 Saturation 91 % (92-99) Arterial Blood pH 7.38 (7.35-7.45) Arterial Blood pCO2 at Patient Temp 32 mmHg (35-46) Arterial Blood pO2 at Patient Temp 68 mmHg (65-108) Arterial Blood HCO3 18 mmol/L (21-28) Arterial Blood Base Excess -6 mmol/L (-3-3) FiO2 60 White Blood Count 17.6 x10^3/uL (4.0-11.0) Red Blood Count 2.92 x10^6/uL (3.50-5.40) Mean Corpuscular Volume 74 fL (79-100) Mean Corpuscular Hemoglobin 22 pg (25-35) Mean Corpuscular Hemoglobin Concent 30 g/dL (31-37) Red Cell Distribution Width 25.1 % (11.5-14.5) Platelet Count 361 x10^3/uL (140-400) Neutrophils (%) (Auto) 87 % (31-73) Lymphocytes (%) (Auto) 4 % (24-48) Monocytes (%) (Auto) 6 % (0-9) Eosinophils (%) (Auto) 2 % (0-3) Basophils (%) (Auto) 1 % (0-3) Neutrophils # (Auto) 15.2 x10^3uL (1.8-7.7) Lymphocytes # (Auto) 0.7 x10^3/uL (1.0-4.8) Monocytes # (Auto) 1.1 x10^3/uL (0.0-1.1) Eosinophils # (Auto) 0.4 x10^3/uL (0.0-0.7) Basophils # (Auto) 0.2 x10^3/uL (0.0-0.2) Segmented Neutrophils % 86 % (35-66) Band Neutrophils % 2 % (0-9) Lymphocytes % 8 % (24-48) Monocytes % 3 % (0-10) Basophils % 1 % (0-3) Platelet Estimate Adequate (ADEQUATE) Large Platelets Occ Hypochromasia Present Anisocytosis Present Microcytosis Present Sodium Level 143 mmol/L (136-145) Potassium Level 4.0 mmol/L (3.5-5.1) Chloride Level 109 mmol/L (98-107) Carbon Dioxide Level 21 mmol/L (21-32) Anion Gap 13 (6-14) Blood Urea Nitrogen 22 mg/dL (7-20) Creatinine 1.5 mg/dL (0.6-1.0) Estimated GFR (Cockcroft-Gault) 35.4 Glucose Level 104 mg/dL (70-99) Calcium Level 8.7 mg/dL (8.5-10.1) Magnesium Level 1.9 mg/dL (1.8-2.4) Test 09/19/17 08:00 O2 Saturation 93 % (92-99) Arterial Blood pH 7.37 (7.35-7.45) Arterial Blood pCO2 at Patient Temp 33 mmHg (35-46) Arterial Blood pO2 at Patient Temp 73 mmHg (65-108) Arterial Blood HCO3 19 mmol/L (21-28) Arterial Blood Base Excess -6 mmol/L (-3-3) FiO2 60 Micro Micro Microbiology 09/17/17 Blood Culture - Preliminary, Resulted NO GROWTH AFTER 1 DAY Review of Systems Constitutional: yes: weakness, alert Ears/Nose/Throat: Yes: no symptom reported Eyes: Yes: no symptom reported Pulmonary: Yes dyspnea Cardiovascular: Yes edema Gastrointestional: Yes: constipation Musculoskeletal: Yes: muscle atrophy Skin: Yes no symptom reported Psychiatric/Neurological: Yes: no symptom reported Endocrine: Yes: no symptom reported Physical Exam General Appearance: mild distress Skin: warm Respiratory: decreased breath sounds Heart: S1S2, RRR Abdomen: soft, bowel sounds present Genitourinary: bladder flat Extremities: pulses present, atrophy Neurology: alert Musculoskeletal: Osteoarthritis Assessment Assessment IMP CHF PNEUMONIA ANEMIA PROB COPD GEO-ATN-CR OF 1.5 RESP FAILURE PLAN ANTIBIOTICS ANEMIA WORK UP DAILY DILLON CHAVIS MD Sep 19, 2017 10:36
[2017-09-19] MEDS ORDERED: methylPREDNISolone SOD SUCC PF 125 MG/2 ML VIAL. IV ONE (10:45)
[2017-09-19] MEDS ORDERED: BUDESONIDE 0.5 MG/2 ML NEBU. NEB ONE (10:45)
[2017-09-19] MEDS ORDERED: MIDAZOLAM HCL/PF 5 MG/5 ML VIAL. ONE ×2 (10:55→11:00)
[2017-09-19] MEDS ORDERED: MIDAZOLAM 100MG/100ML PREMIX 100 ML IV ONE (10:55)
--- NOTE | 2017-09-19 10:57 | PDOC ---
PULMONARY PROGRESS NOTES Subjective worsening hypoxia/ respiratory distress/ lethargy on 80% FIO2 Vitals Vital Signs Date Time Temp Pulse Resp B/P (MAP) Pulse Ox O2 Delivery O2 Flow Rate FiO2 09/19/17 08:11 93 BiPAP/CPAP 09/19/17 06:00 98 28 106/62 (77) 09/19/17 04:09 60.0 09/19/17 04:00 98.8 98.8 General: Lethargic Lungs: Other (COARSE) Cardiovascular: S1 Abdomen: Soft Extremities: Other (1+EDEMA) Labs Laboratory Tests Test 09/17/17 15:15 09/17/17 15:48 09/17/17 16:50 09/17/17 17:00 White Blood Count 15.4 x10^3/uL (4.0-11.0) Red Blood Count 2.46 x10^6/uL (3.50-5.40) Hemoglobin 5.0 g/dL (12.0-15.5) Hematocrit 17.5 % (36.0-47.0) Mean Corpuscular Volume 71 fL (79-100) Mean Corpuscular Hemoglobin 20 pg (25-35) Mean Corpuscular Hemoglobin Concent 29 g/dL (31-37) Red Cell Distribution Width 25.9 % (11.5-14.5) Platelet Count 354 x10^3/uL (140-400) Neutrophils (%) (Auto) 78 % (31-73) Lymphocytes (%) (Auto) 8 % (24-48) Monocytes (%) (Auto) 8 % (0-9) Eosinophils (%) (Auto) 5 % (0-3) Basophils (%) (Auto) 1 % (0-3) Neutrophils # (Auto) 12.0 x10^3uL (1.8-7.7) Lymphocytes # (Auto) 1.2 x10^3/uL (1.0-4.8) Monocytes # (Auto) 1.2 x10^3/uL (0.0-1.1) Eosinophils # (Auto) 0.8 x10^3/uL (0.0-0.7) Basophils # (Auto) 0.2 x10^3/uL (0.0-0.2) Platelet Estimate Adequate (ADEQUATE) Polychromasia Present Hypochromasia Mod Poikilocytosis Slight Anisocytosis Marked Microcytosis Mod Tear Drop Cells Occ Ovalocytes Few Schistocytes Occ Haptoglobin 265 mg/dL (34-200) Prothrombin Time 14.3 SEC (11.7-14.0) Prothromb Time International Ratio 1.2 (0.8-1.1) Activated Partial Thromboplast Time 33 SEC (24-38) Fibrinogen 727 mg/dL (200-440) Sodium Level 141 mmol/L (136-145) Potassium Level 3.1 mmol/L (3.5-5.1) Chloride Level 107 mmol/L (98-107) Carbon Dioxide Level 20 mmol/L (21-32) Anion Gap 14 (6-14) 14 mmol/L (6-14) Blood Urea Nitrogen 21 mg/dL (7-20) Creatinine 1.5 mg/dL (0.6-1.0) Estimated GFR (Cockcroft-Gault) 35.4 BUN/Creatinine Ratio 14 (6-20) Glucose Level 127 mg/dL (70-99) 118 mg/dL (70-99) Calcium Level 9.2 mg/dL (8.5-10.1) Total Bilirubin 0.4 mg/dL (0.2-1.0) Aspartate Amino Transf (AST/SGOT) 29 U/L (15-37) Alanine Aminotransferase (ALT/SGPT) 11 U/L (14-59) Alkaline Phosphatase 73 U/L (46-116) Lactate Dehydrogenase 452 U/L (81-234) Total Protein 6.6 g/dL (6.4-8.2) Albumin 2.6 g/dL (3.4-5.0) Albumin/Globulin Ratio 0.7 (1.0-1.7) Thyroid Stimulating Hormone (TSH) 0.677 uIU/mL (0.358-3.74) Bedside Hemoglobin 6.1 g/dL (12-15) Bedside Hematocrit 18 % (36-40) Bedside Sodium 141 mmol/L (135-145) Bedside Potassium 3.3 mmol/L (3.5-5.0) Bedside Chloride 110 mmol/L (98-110) Bedside Total CO2 22 mmol/L (23-32) Bedside Blood Urea Nitrogen 24 mg/dL (8-26) Bedside Creatinine 1.4 mg/dL (0.5-1.4) Bedside Ionized Calcium (Emily) 1.20 mmol/L (1.13-1.32) Bedside Troponin I 0.01 ng/ml (<0.08) Lactic Acid Level 1.1 mmol/L (0.4-2.0) Test 09/18/17 04:10 09/18/17 12:10 09/18/17 13:45 09/18/17 17:35 White Blood Count 14.4 x10^3/uL (4.0-11.0) Red Blood Count 2.64 x10^6/uL (3.50-5.40) Hemoglobin 5.9 g/dL (12.0-15.5) 7.7 g/dL (12.0-15.5) Hematocrit 19.7 % (36.0-47.0) 25.5 % (36.0-47.0) Mean Corpuscular Volume 75 fL (79-100) Mean Corpuscular Hemoglobin 22 pg (25-35) Mean Corpuscular Hemoglobin Concent 30 g/dL (31-37) Red Cell Distribution Width 27.7 % (11.5-14.5) Platelet Count 332 x10^3/uL (140-400) Neutrophils (%) (Auto) 83 % (31-73) Lymphocytes (%) (Auto) 5 % (24-48) Monocytes (%) (Auto) 9 % (0-9) Eosinophils (%) (Auto) 2 % (0-3) Basophils (%) (Auto) 1 % (0-3) Neutrophils # (Auto) 12.0 x10^3uL (1.8-7.7) Lymphocytes # (Auto) 0.8 x10^3/uL (1.0-4.8) Monocytes # (Auto) 1.3 x10^3/uL (0.0-1.1) Eosinophils # (Auto) 0.3 x10^3/uL (0.0-0.7) Basophils # (Auto) 0.1 x10^3/uL (0.0-0.2) Reticulocyte Count (auto) 1.6 % (0.5-2.5) Sodium Level 144 mmol/L (136-145) Potassium Level 3.4 mmol/L (3.5-5.1) Chloride Level 110 mmol/L (98-107) Carbon Dioxide Level 20 mmol/L (21-32) Anion Gap 14 (6-14) Blood Urea Nitrogen 21 mg/dL (7-20) Creatinine 1.4 mg/dL (0.6-1.0) Estimated GFR (Cockcroft-Gault) 38.4 BUN/Creatinine Ratio 15 (6-20) Glucose Level 102 mg/dL (70-99) Calcium Level 8.3 mg/dL (8.5-10.1) Iron Level 12 ug/dL (50-170) Total Iron Binding Capacity 348 ug/dL (250-450) Iron Saturation 3 % (15-34) Ferritin 44 ng/mL (8-252) Total Bilirubin 0.5 mg/dL (0.2-1.0) Aspartate Amino Transf (AST/SGOT) 16 U/L (15-37) Alanine Aminotransferase (ALT/SGPT) 9 U/L (14-59) Alkaline Phosphatase 88 U/L (46-116) CL-Hzf-G-Type Natriuretic Peptide 4983 pg/mL (0-124) Total Protein 6.3 g/dL (6.4-8.2) Albumin 2.5 g/dL (3.4-5.0) Albumin/Globulin Ratio 0.7 (1.0-1.7) Erythrocyte Sedimentation Rate 94 (0-25) Vitamin B12 Level 500 pg/mL (247-911) Serum Folate 9.79 ng/ml (3.2-20.0) Urine Color Yellow Urine Clarity Clear Urine pH 6.0 Urine Specific [place] 1.010 Urine Protein Negative mg/dL (NEG-TRACE) Urine Glucose (UA) Negative mg/dL (NEG) Urine Ketones (Stick) Negative mg/dL (NEG) Urine Blood Negative (NEG) Urine Nitrite Negative (NEG) Urine Bilirubin Negative (NEG) Urine Urobilinogen Dipstick 0.2 mg/dL (0.2 mg/dL) Urine Leukocyte Esterase Negative (NEG) Urine RBC 0 /HPF (0-2) Urine WBC Occ /HPF (0-4) Urine Squamous Epithelial Cells Occ /LPF Urine Bacteria Few /HPF (0-FEW) O2 Saturation 91 % (92-99) Arterial Blood pH 7.38 (7.35-7.45) Arterial Blood pCO2 at Patient Temp 32 mmHg (35-46) Arterial Blood pO2 at Patient Temp 68 mmHg (65-108) Arterial Blood HCO3 18 mmol/L (21-28) Arterial Blood Base Excess -6 mmol/L (-3-3) FiO2 60 Test 09/19/17 04:20 09/19/17 08:00 White Blood Count 17.6 x10^3/uL (4.0-11.0) Red Blood Count 2.92 x10^6/uL (3.50-5.40) Hemoglobin 6.6 g/dL (12.0-15.5) Hematocrit 21.7 % (36.0-47.0) Mean Corpuscular Volume 74 fL (79-100) Mean Corpuscular Hemoglobin 22 pg (25-35) Mean Corpuscular Hemoglobin Concent 30 g/dL (31-37) Red Cell Distribution Width 25.1 % (11.5-14.5) Platelet Count 361 x10^3/uL (140-400) Neutrophils (%) (Auto) 87 % (31-73) Lymphocytes (%) (Auto) 4 % (24-48) Monocytes (%) (Auto) 6 % (0-9) Eosinophils (%) (Auto) 2 % (0-3) Basophils (%) (Auto) 1 % (0-3) Neutrophils # (Auto) 15.2 x10^3uL (1.8-7.7) Lymphocytes # (Auto) 0.7 x10^3/uL (1.0-4.8) Monocytes # (Auto) 1.1 x10^3/uL (0.0-1.1) Eosinophils # (Auto) 0.4 x10^3/uL (0.0-0.7) Basophils # (Auto) 0.2 x10^3/uL (0.0-0.2) Segmented Neutrophils % 86 % (35-66) Band Neutrophils % 2 % (0-9) Lymphocytes % 8 % (24-48) Monocytes % 3 % (0-10) Basophils % 1 % (0-3) Platelet Estimate Adequate (ADEQUATE) Large Platelets Occ Hypochromasia Present Anisocytosis Present Microcytosis Present Sodium Level 143 mmol/L (136-145) Potassium Level 4.0 mmol/L (3.5-5.1) Chloride Level 109 mmol/L (98-107) Carbon Dioxide Level 21 mmol/L (21-32) Anion Gap 13 (6-14) Blood Urea Nitrogen 22 mg/dL (7-20) Creatinine 1.5 mg/dL (0.6-1.0) Estimated GFR (Cockcroft-Gault) 35.4 Glucose Level 104 mg/dL (70-99) Calcium Level 8.7 mg/dL (8.5-10.1) Magnesium Level 1.9 mg/dL (1.8-2.4) O2 Saturation 93 % (92-99) Arterial Blood pH 7.37 (7.35-7.45) Arterial Blood pCO2 at Patient Temp 33 mmHg (35-46) Arterial Blood pO2 at Patient Temp 73 mmHg (65-108) Arterial Blood HCO3 19 mmol/L (21-28) Arterial Blood Base Excess -6 mmol/L (-3-3) FiO2 60 Laboratory Tests Test 09/18/17 12:10 09/18/17 13:45 09/18/17 17:35 09/19/17 04:20 Hemoglobin 7.7 g/dL (12.0-15.5) 6.6 g/dL (12.0-15.5) Hematocrit 25.5 % (36.0-47.0) 21.7 % (36.0-47.0) Erythrocyte Sedimentation Rate 94 (0-25) Vitamin B12 Level 500 pg/mL (247-911) Serum Folate 9.79 ng/ml (3.2-20.0) Urine Color Yellow Urine Clarity Clear Urine pH 6.0 Urine Specific [place] 1.010 Urine Protein Negative mg/dL (NEG-TRACE) Urine Glucose (UA) Negative mg/dL (NEG) Urine Ketones (Stick) Negative mg/dL (NEG) Urine Blood Negative (NEG) Urine Nitrite Negative (NEG) Urine Bilirubin Negative (NEG) Urine Urobilinogen Dipstick 0.2 mg/dL (0.2 mg/dL) Urine Leukocyte Esterase Negative (NEG) Urine RBC 0 /HPF (0-2) Urine WBC Occ /HPF (0-4) Urine Squamous Epithelial Cells Occ /LPF Urine Bacteria Few /HPF (0-FEW) O2 Saturation 91 % (92-99) Arterial Blood pH 7.38 (7.35-7.45) Arterial Blood pCO2 at Patient Temp 32 mmHg (35-46) Arterial Blood pO2 at Patient Temp 68 mmHg (65-108) Arterial Blood HCO3 18 mmol/L (21-28) Arterial Blood Base Excess -6 mmol/L (-3-3) FiO2 60 White Blood Count 17.6 x10^3/uL (4.0-11.0) Red Blood Count 2.92 x10^6/uL (3.50-5.40) Mean Corpuscular Volume 74 fL (79-100) Mean Corpuscular Hemoglobin 22 pg (25-35) Mean Corpuscular Hemoglobin Concent 30 g/dL (31-37) Red Cell Distribution Width 25.1 % (11.5-14.5) Platelet Count 361 x10^3/uL (140-400) Neutrophils (%) (Auto) 87 % (31-73) Lymphocytes (%) (Auto) 4 % (24-48) Monocytes (%) (Auto) 6 % (0-9) Eosinophils (%) (Auto) 2 % (0-3) Basophils (%) (Auto) 1 % (0-3) Neutrophils # (Auto) 15.2 x10^3uL (1.8-7.7) Lymphocytes # (Auto) 0.7 x10^3/uL (1.0-4.8) Monocytes # (Auto) 1.1 x10^3/uL (0.0-1.1) Eosinophils # (Auto) 0.4 x10^3/uL (0.0-0.7) Basophils # (Auto) 0.2 x10^3/uL (0.0-0.2) Segmented Neutrophils % 86 % (35-66) Band Neutrophils % 2 % (0-9) Lymphocytes % 8 % (24-48) Monocytes % 3 % (0-10) Basophils % 1 % (0-3) Platelet Estimate Adequate (ADEQUATE) Large Platelets Occ Hypochromasia Present Anisocytosis Present Microcytosis Present Sodium Level 143 mmol/L (136-145) Potassium Level 4.0 mmol/L (3.5-5.1) Chloride Level 109 mmol/L (98-107) Carbon Dioxide Level 21 mmol/L (21-32) Anion Gap 13 (6-14) Blood Urea Nitrogen 22 mg/dL (7-20) Creatinine 1.5 mg/dL (0.6-1.0) Estimated GFR (Cockcroft-Gault) 35.4 Glucose Level 104 mg/dL (70-99) Calcium Level 8.7 mg/dL (8.5-10.1) Magnesium Level 1.9 mg/dL (1.8-2.4) Test 09/19/17 08:00 O2 Saturation 93 % (92-99) Arterial Blood pH 7.37 (7.35-7.45) Arterial Blood pCO2 at Patient Temp 33 mmHg (35-46) Arterial Blood pO2 at Patient Temp 73 mmHg (65-108) Arterial Blood HCO3 19 mmol/L (21-28) Arterial Blood Base Excess -6 mmol/L (-3-3) FiO2 60 Medications Active Scripts Medications Dose Route/Sig Max Daily Dose Days Date Category Gabapentin 300 Mg Capsule 300 Mg PO TID 09/18/17 Reported Cymbalta (Duloxetine Hcl) 60 Mg Capsule. 1 Cap PO BID 09/18/17 Reported Hydrochlorothiazide Tablet (Hydrochlorothiazide) 25 Mg Tablet 1 Tab PO DAILY 09/17/17 Reported Xanax (Alprazolam) 1 Mg Tablet 1 Tab PO TID PRN 09/17/17 Reported Impression . 1. Acute hypoxic respiratory failure in a patient who is a smoker and has a significant anemia with a hemoglobin of 5.0 on admission and also has extensive interstitial infiltrates, more on the right than on the left and a small basal pleural effusion. Differential diagnosis would include the following: A. Acute Interstitial pneumonia contributing to hypoxic respiratory failure in a patient who has underlying 50 years of tobacco use/ ?diffuse viral pneumonia/ ARDS/? diffuse vasculitis (high sed rate) /?alveolar proteinosis B. Anemia without any obvious blood loss contributing to patient's respiratory failure. C. Anemic heart failure, although clinically less likely. D. Unlikely transfusion related acute lung injury as the symptoms began before the transfusion. E. ? diffuse vasculitis/ high sed rate/?alveolar proteinosis 2. Anemia, needs further workup. Possibility of myelodysplastic syndrome should be a consideration; however, her MCV is low and consider GI consult to rule out any gastrointestinal source. ? vasculitis 3. She has had long history of tobacco use, suspect underlying chronic obstructive pulmonary disease. Plan . 1. Respiratory status has worsened. d/w in detail. would benefit from intubation. He agrees 2. AC mode/ high PEEP. Continue to titrate oxygen to keep saturations 92% to 94 % 3. Continue broad-spectrum antibiotics. Influenza screen 4. CT chest with diffuse parenchymal GG infiltrates, small effusions. Once stable, Bronch 5. We will withhold any diuretics at present. effusions could be from low oncotic pressure. normal EF, moderate AI 6. Consult Hematology for workup of anemia./ done 7. Consult GI for GI workup of anemia./ done 8. high dose steroids/ high sed rate 10. Discussed with RN and Dr Conley/ .Pt is critically ill cct 35 min Addend: family requesting transfer to as most of her doctors are there. i did explain her that at present she is critically ill and transfer will be high risk. Once oxygen requirement improves and accepts her, she can be transfer per family request.d/w Dr Conley. All questions answered JORGE LEDESMA MD Sep 19, 2017 10:57
[2017-09-19] MEDS ORDERED: NOREPINEPHRIN PREMIX 250 ML IV ONE (10:59)
[2017-09-19] MEDS ORDERED: PROPOFOL 100 ML IV ONE (10:59)
[2017-09-19] MEDS ORDERED: NOREPINEPHRINE PREMIX 8 MG/250 ML BAG. IV ONE (11:00)
[2017-09-19] MEDS ORDERED: fentaNYL PF VIAL 100 MCG/2 ML VIAL IV ONE (11:00)
[2017-09-19] MEDS ORDERED: MIDAZOLAM 100MG/100ML PREMIX 100 ML IV PRN (11:00)
[2017-09-19] MEDS: FUROSEMIDE 40 MG/4 ML VIAL. IVP SCH (11:00)
[2017-09-19] MEDS ORDERED: MIDAZOLAM HCL/PF 5 MG/5 ML VIAL. IV ONE (11:00)
[2017-09-19] MEDS ORDERED: VANCOMYCIN 2 GM in IV DEXTROSE 5% 500 ML IV ONE (11:00)
[2017-09-19] MEDS: predniSONE 20 MG TABLET PO SCH (11:00)
[2017-09-19] MEDS: MIDAZOLAM 100MG/100ML PREMIX 100 ML IV PRN ×2 (11:05→15:35)
--- NOTE | 2017-09-19 11:12 | PDOC ---
CARDIO Progress Notes Date and Time Date of Service 09/19/2017 Time of Evaluation 1030 Subjective Subjective: Other (on bipap and lethargic) Vitals Vitals Vital Signs Date Time Temp Pulse Resp B/P (MAP) Pulse Ox O2 Delivery O2 Flow Rate FiO2 09/19/17 08:11 93 BiPAP/CPAP 09/19/17 06:00 98 28 106/62 (77) 09/19/17 04:09 60.0 09/19/17 04:00 98.8 98.8 Weight Weight [ ] Input and Output Intake and Output Intake and Output 09/19/17 07:00 Intake Total 590 ml Output Total 2450 ml Balance -1860 ml Intake Oral 550 ml Blood Product IV Normal Saline Flush 40 ml Output Urine Total 2450 ml Laboratory Labs Laboratory Tests Test 09/18/17 12:10 09/18/17 13:45 09/18/17 17:35 09/19/17 04:20 Hemoglobin 7.7 g/dL (12.0-15.5) 6.6 g/dL (12.0-15.5) Hematocrit 25.5 % (36.0-47.0) 21.7 % (36.0-47.0) Erythrocyte Sedimentation Rate 94 (0-25) Vitamin B12 Level 500 pg/mL (247-911) Serum Folate 9.79 ng/ml (3.2-20.0) Urine Color Yellow Urine Clarity Clear Urine pH 6.0 Urine Specific [place] 1.010 Urine Protein Negative mg/dL (NEG-TRACE) Urine Glucose (UA) Negative mg/dL (NEG) Urine Ketones (Stick) Negative mg/dL (NEG) Urine Blood Negative (NEG) Urine Nitrite Negative (NEG) Urine Bilirubin Negative (NEG) Urine Urobilinogen Dipstick 0.2 mg/dL (0.2 mg/dL) Urine Leukocyte Esterase Negative (NEG) Urine RBC 0 /HPF (0-2) Urine WBC Occ /HPF (0-4) Urine Squamous Epithelial Cells Occ /LPF Urine Bacteria Few /HPF (0-FEW) O2 Saturation 91 % (92-99) Arterial Blood pH 7.38 (7.35-7.45) Arterial Blood pCO2 at Patient Temp 32 mmHg (35-46) Arterial Blood pO2 at Patient Temp 68 mmHg (65-108) Arterial Blood HCO3 18 mmol/L (21-28) Arterial Blood Base Excess -6 mmol/L (-3-3) FiO2 60 White Blood Count 17.6 x10^3/uL (4.0-11.0) Red Blood Count 2.92 x10^6/uL (3.50-5.40) Mean Corpuscular Volume 74 fL (79-100) Mean Corpuscular Hemoglobin 22 pg (25-35) Mean Corpuscular Hemoglobin Concent 30 g/dL (31-37) Red Cell Distribution Width 25.1 % (11.5-14.5) Platelet Count 361 x10^3/uL (140-400) Neutrophils (%) (Auto) 87 % (31-73) Lymphocytes (%) (Auto) 4 % (24-48) Monocytes (%) (Auto) 6 % (0-9) Eosinophils (%) (Auto) 2 % (0-3) Basophils (%) (Auto) 1 % (0-3) Neutrophils # (Auto) 15.2 x10^3uL (1.8-7.7) Lymphocytes # (Auto) 0.7 x10^3/uL (1.0-4.8) Monocytes # (Auto) 1.1 x10^3/uL (0.0-1.1) Eosinophils # (Auto) 0.4 x10^3/uL (0.0-0.7) Basophils # (Auto) 0.2 x10^3/uL (0.0-0.2) Segmented Neutrophils % 86 % (35-66) Band Neutrophils % 2 % (0-9) Lymphocytes % 8 % (24-48) Monocytes % 3 % (0-10) Basophils % 1 % (0-3) Platelet Estimate Adequate (ADEQUATE) Large Platelets Occ Hypochromasia Present Anisocytosis Present Microcytosis Present Sodium Level 143 mmol/L (136-145) Potassium Level 4.0 mmol/L (3.5-5.1) Chloride Level 109 mmol/L (98-107) Carbon Dioxide Level 21 mmol/L (21-32) Anion Gap 13 (6-14) Blood Urea Nitrogen 22 mg/dL (7-20) Creatinine 1.5 mg/dL (0.6-1.0) Estimated GFR (Cockcroft-Gault) 35.4 Glucose Level 104 mg/dL (70-99) Calcium Level 8.7 mg/dL (8.5-10.1) Magnesium Level 1.9 mg/dL (1.8-2.4) Test 09/19/17 08:00 O2 Saturation 93 % (92-99) Arterial Blood pH 7.37 (7.35-7.45) Arterial Blood pCO2 at Patient Temp 33 mmHg (35-46) Arterial Blood pO2 at Patient Temp 73 mmHg (65-108) Arterial Blood HCO3 19 mmol/L (21-28) Arterial Blood Base Excess -6 mmol/L (-3-3) FiO2 60 Microbiology Micro Microbiology 09/17/17 Blood Culture - Preliminary, Resulted NO GROWTH AFTER 1 DAY Review of Systems Constitutional: yes: weakness, alert Ears/Nose/Throat: Yes: no symptom reported Eyes: Yes: no symptom reported Pulmonary: Yes dyspnea Cardiovascular: Yes edema Gastrointestional: Yes: constipation Musculoskeletal: Yes: muscle atrophy Skin: Yes no symptom reported Psychiatric/Neurological: Yes: no symptom reported Endocrine: Yes: no symptom reported Physical Exam HEENT: Neck Supple W Full Motion Chest: Symmetric LUNGS: Other (diffuse wheeze and crackles; on bipap) Heart: S1S2, RRR (Sinus tach 110s), other (distant heart sounds) Abdomen: Other (soft) Extremities: No Edema, No Calf Tenderness Neurology: other (lethargic) Assessment Assessment 1. CAP/leukocytosis: pulmonary following. Worsening dyspnea inadequate response to bipap. 2. Hypoxic/metabolic encephalopathy 3. Microcytic hypochromic anemia: No obvious source. Hgb down to 6.6.. Hematology following 4. Acute diastolic CHF: imposed by pulmonary issues and anemia. 5. GEO: poor fluid intake overnight. nephrology following 6. Chronic NSAID use: routine use of 800 mg of advil bid 7. HTN: controlled 8. AECOPD with tobaccoism 9. Protein malnutrition 10. Valvular insufficiency: mild TR PAP 38 mmHg and moderate MR. Recommendations 1. Discussed with staff and son, would benefit from mechanical ventilation, awaiting pulmonary. PCXR 2. Transfusion per PCP. x1 lasix. 3. Supportive care. KELVIN ALFARO [employer] Sep 19, 2017 11:12
[2017-09-19] MEDS ORDERED: FUROSEMIDE 20 MG/2 ML VIAL. IVP ONE (11:15)
[2017-09-19] MEDS ORDERED: VECURONIUM BOLUS 10 MG VIAL. IV ONE ×3 (11:21→14:00)
[2017-09-19] MEDS ORDERED: PROPOFOL IV ONE (11:30)
[2017-09-19] MEDS ORDERED: SUCCINYLCHOLINE 200 MG/10 ML VIAL. IV ONE (11:30)
--- NOTE | 2017-09-19 11:40 | RAD ---
Portable chest, 09/19/2017: History: Intubation Comparison is made to yesterday's study. An ET tube has been inserted with its tip located 4-5 cm above the radha. The heart size is unchanged. Bilateral pulmonary infiltrates, right greater than left, continue to worsen with increasing loss of definition of the underlying pulmonary vascularity. The patient's known pleural effusions are not visualized on this AP exam. There is no evidence of pneumothorax. IMPRESSION: 1. Interval insertion of an ET tube in satisfactory position. 2. Further interval worsening of the bilateral pulmonary infiltrates.
[2017-09-19 12:10] LABS: HCO3 ABG 20 mmol/L (21-28); PCO2 ABG 46 mmHg (35-46); PH ABG 7.25 (7.35-7.45); PO2 ABG 106 mmHg (65-108); SAT O2 ABG 97 % (92-99)
[2017-09-19 12:13] LABS: FIO2 ABG 100
[2017-09-19] MEDS ORDERED: SODIUM BICARB ADULT 8.4% 50 MEQ/50 ML DISP.SYRIN. IV ONE ×2 (12:45)
[2017-09-19 13:02] LABS: OBC FLU VALID
--- NOTE | 2017-09-19 13:11 | PDOC ---
PROGRESS NOTES Chief Complaint Chief Complaint pneumonia, RML opacity, cough and dyspnea acute hypoxic respiratory failure consistent with ARDS, possible underlying COPD sepsis, abx given, anemia, acute on chronic, w. sepsis tobaccoism, anxiety d/o, very poor control History of Present Illness History of Present Illness transfer to ICU yesterday on bipap this AM, not tolerating well, anxiety is limiting, was upset and wanted to leave yesterday change abx to broader coverage, consult ID to follow PULM discussed, stress dose steroids now, will intubate to protect airway, needs better 02 delivery, consider bronch her is here again anemia still marked, additional 1 u PRBC ordered, Vitals Vitals Vital Signs Date Time Temp Pulse Resp B/P (MAP) Pulse Ox O2 Delivery O2 Flow Rate FiO2 09/19/17 12:51 100 Ventilator 09/19/17 12:14 20 09/19/17 06:00 98 106/62 (77) 09/19/17 04:09 60.0 09/19/17 04:00 98.8 98.8 Physical Exam General: Alert, Oriented X3, Cooperative, No acute distress Heart: Regular rate, Normal S1 Lungs: Other (COARSE) Abdomen: Normal bowel sounds, Soft, No hepatosplenomegaly Extremities: No clubbing, No edema, Normal pulses Skin: No breakdown, No significant lesion Labs LABS Laboratory Tests Test 09/18/17 13:45 09/18/17 17:35 09/19/17 04:20 09/19/17 08:00 Urine Color Yellow Urine Clarity Clear Urine pH 6.0 Urine Specific [place] 1.010 Urine Protein Negative mg/dL (NEG-TRACE) Urine Glucose (UA) Negative mg/dL (NEG) Urine Ketones (Stick) Negative mg/dL (NEG) Urine Blood Negative (NEG) Urine Nitrite Negative (NEG) Urine Bilirubin Negative (NEG) Urine Urobilinogen Dipstick 0.2 mg/dL (0.2 mg/dL) Urine Leukocyte Esterase Negative (NEG) Urine RBC 0 /HPF (0-2) Urine WBC Occ /HPF (0-4) Urine Squamous Epithelial Cells Occ /LPF Urine Bacteria Few /HPF (0-FEW) O2 Saturation 91 % (92-99) 93 % (92-99) Arterial Blood pH 7.38 (7.35-7.45) 7.37 (7.35-7.45) Arterial Blood pCO2 at Patient Temp 32 mmHg (35-46) 33 mmHg (35-46) Arterial Blood pO2 at Patient Temp 68 mmHg (65-108) 73 mmHg (65-108) Arterial Blood HCO3 18 mmol/L (21-28) 19 mmol/L (21-28) Arterial Blood Base Excess -6 mmol/L (-3-3) -6 mmol/L (-3-3) FiO2 60 60 White Blood Count 17.6 x10^3/uL (4.0-11.0) Red Blood Count 2.92 x10^6/uL (3.50-5.40) Hemoglobin 6.6 g/dL (12.0-15.5) Hematocrit 21.7 % (36.0-47.0) Mean Corpuscular Volume 74 fL (79-100) Mean Corpuscular Hemoglobin 22 pg (25-35) Mean Corpuscular Hemoglobin Concent 30 g/dL (31-37) Red Cell Distribution Width 25.1 % (11.5-14.5) Platelet Count 361 x10^3/uL (140-400) Neutrophils (%) (Auto) 87 % (31-73) Lymphocytes (%) (Auto) 4 % (24-48) Monocytes (%) (Auto) 6 % (0-9) Eosinophils (%) (Auto) 2 % (0-3) Basophils (%) (Auto) 1 % (0-3) Neutrophils # (Auto) 15.2 x10^3uL (1.8-7.7) Lymphocytes # (Auto) 0.7 x10^3/uL (1.0-4.8) Monocytes # (Auto) 1.1 x10^3/uL (0.0-1.1) Eosinophils # (Auto) 0.4 x10^3/uL (0.0-0.7) Basophils # (Auto) 0.2 x10^3/uL (0.0-0.2) Segmented Neutrophils % 86 % (35-66) Band Neutrophils % 2 % (0-9) Lymphocytes % 8 % (24-48) Monocytes % 3 % (0-10) Basophils % 1 % (0-3) Platelet Estimate Adequate (ADEQUATE) Large Platelets Occ Hypochromasia Present Anisocytosis Present Microcytosis Present Sodium Level 143 mmol/L (136-145) Potassium Level 4.0 mmol/L (3.5-5.1) Chloride Level 109 mmol/L (98-107) Carbon Dioxide Level 21 mmol/L (21-32) Anion Gap 13 (6-14) Blood Urea Nitrogen 22 mg/dL (7-20) Creatinine 1.5 mg/dL (0.6-1.0) Estimated GFR (Cockcroft-Gault) 35.4 Glucose Level 104 mg/dL (70-99) Calcium Level 8.7 mg/dL (8.5-10.1) Magnesium Level 1.9 mg/dL (1.8-2.4) Test 09/19/17 12:06 09/19/17 12:35 O2 Saturation 97 % (92-99) Arterial Blood pH 7.25 (7.35-7.45) Arterial Blood pCO2 at Patient Temp 46 mmHg (35-46) Arterial Blood pO2 at Patient Temp 106 mmHg (65-108) Arterial Blood HCO3 20 mmol/L (21-28) Arterial Blood Base Excess -7 mmol/L (-3-3) FiO2 100 Influenza Type A Antigen Negative (NEGATIVE) Influenza Type B Antigen Negative (NEGATIVE) Review of Systems Review of Systems anxiety, dyspnea, cough, no sleep Assessment and Plan Assessmemt and Plan ICU care 2 visits, discussed with PULM consult X2 Problems Medical Problems: (1) Dyspnea Status: Acute (2) Hypoalbuminemia Status: Acute (3) Metabolic acidosis Status: Acute (4) Pneumonia Status: Acute Problems: Comment Review of Relevant I have reviewed the following items tha (where applicable) has been applied. Labs Laboratory Tests Test 09/17/17 15:15 09/17/17 15:48 09/17/17 16:50 09/17/17 17:00 White Blood Count 15.4 x10^3/uL (4.0-11.0) Red Blood Count 2.46 x10^6/uL (3.50-5.40) Hemoglobin 5.0 g/dL (12.0-15.5) Hematocrit 17.5 % (36.0-47.0) Mean Corpuscular Volume 71 fL (79-100) Mean Corpuscular Hemoglobin 20 pg (25-35) Mean Corpuscular Hemoglobin Concent 29 g/dL (31-37) Red Cell Distribution Width 25.9 % (11.5-14.5) Platelet Count 354 x10^3/uL (140-400) Neutrophils (%) (Auto) 78 % (31-73) Lymphocytes (%) (Auto) 8 % (24-48) Monocytes (%) (Auto) 8 % (0-9) Eosinophils (%) (Auto) 5 % (0-3) Basophils (%) (Auto) 1 % (0-3) Neutrophils # (Auto) 12.0 x10^3uL (1.8-7.7) Lymphocytes # (Auto) 1.2 x10^3/uL (1.0-4.8) Monocytes # (Auto) 1.2 x10^3/uL (0.0-1.1) Eosinophils # (Auto) 0.8 x10^3/uL (0.0-0.7) Basophils # (Auto) 0.2 x10^3/uL (0.0-0.2) Platelet Estimate Adequate (ADEQUATE) Polychromasia Present Hypochromasia Mod Poikilocytosis Slight Anisocytosis Marked Microcytosis Mod Tear Drop Cells Occ Ovalocytes Few Schistocytes Occ Haptoglobin 265 mg/dL (34-200) Prothrombin Time 14.3 SEC (11.7-14.0) Prothromb Time International Ratio 1.2 (0.8-1.1) Activated Partial Thromboplast Time 33 SEC (24-38) Fibrinogen 727 mg/dL (200-440) Sodium Level 141 mmol/L (136-145) Potassium Level 3.1 mmol/L (3.5-5.1) Chloride Level 107 mmol/L (98-107) Carbon Dioxide Level 20 mmol/L (21-32) Anion Gap 14 (6-14) 14 mmol/L (6-14) Blood Urea Nitrogen 21 mg/dL (7-20) Creatinine 1.5 mg/dL (0.6-1.0) Estimated GFR (Cockcroft-Gault) 35.4 BUN/Creatinine Ratio 14 (6-20) Glucose Level 127 mg/dL (70-99) 118 mg/dL (70-99) Calcium Level 9.2 mg/dL (8.5-10.1) Total Bilirubin 0.4 mg/dL (0.2-1.0) Aspartate Amino Transf (AST/SGOT) 29 U/L (15-37) Alanine Aminotransferase (ALT/SGPT) 11 U/L (14-59) Alkaline Phosphatase 73 U/L (46-116) Lactate Dehydrogenase 452 U/L (81-234) Total Protein 6.6 g/dL (6.4-8.2) Albumin 2.6 g/dL (3.4-5.0) Albumin/Globulin Ratio 0.7 (1.0-1.7) Thyroid Stimulating Hormone (TSH) 0.677 uIU/mL (0.358-3.74) Bedside Hemoglobin 6.1 g/dL (12-15) Bedside Hematocrit 18 % (36-40) Bedside Sodium 141 mmol/L (135-145) Bedside Potassium 3.3 mmol/L (3.5-5.0) Bedside Chloride 110 mmol/L (98-110) Bedside Total CO2 22 mmol/L (23-32) Bedside Blood Urea Nitrogen 24 mg/dL (8-26) Bedside Creatinine 1.4 mg/dL (0.5-1.4) Bedside Ionized Calcium (Emily) 1.20 mmol/L (1.13-1.32) Bedside Troponin I 0.01 ng/ml (<0.08) Lactic Acid Level 1.1 mmol/L (0.4-2.0) Test 09/18/17 04:10 09/18/17 12:10 09/18/17 13:45 09/18/17 17:35 White Blood Count 14.4 x10^3/uL (4.0-11.0) Red Blood Count 2.64 x10^6/uL (3.50-5.40) Hemoglobin 5.9 g/dL (12.0-15.5) 7.7 g/dL (12.0-15.5) Hematocrit 19.7 % (36.0-47.0) 25.5 % (36.0-47.0) Mean Corpuscular Volume 75 fL (79-100) Mean Corpuscular Hemoglobin 22 pg (25-35) Mean Corpuscular Hemoglobin Concent 30 g/dL (31-37) Red Cell Distribution Width 27.7 % (11.5-14.5) Platelet Count 332 x10^3/uL (140-400) Neutrophils (%) (Auto) 83 % (31-73) Lymphocytes (%) (Auto) 5 % (24-48) Monocytes (%) (Auto) 9 % (0-9) Eosinophils (%) (Auto) 2 % (0-3) Basophils (%) (Auto) 1 % (0-3) Neutrophils # (Auto) 12.0 x10^3uL (1.8-7.7) Lymphocytes # (Auto) 0.8 x10^3/uL (1.0-4.8) Monocytes # (Auto) 1.3 x10^3/uL (0.0-1.1) Eosinophils # (Auto) 0.3 x10^3/uL (0.0-0.7) Basophils # (Auto) 0.1 x10^3/uL (0.0-0.2) Reticulocyte Count (auto) 1.6 % (0.5-2.5) Sodium Level 144 mmol/L (136-145) Potassium Level 3.4 mmol/L (3.5-5.1) Chloride Level 110 mmol/L (98-107) Carbon Dioxide Level 20 mmol/L (21-32) Anion Gap 14 (6-14) Blood Urea Nitrogen 21 mg/dL (7-20) Creatinine 1.4 mg/dL (0.6-1.0) Estimated GFR (Cockcroft-Gault) 38.4 BUN/Creatinine Ratio 15 (6-20) Glucose Level 102 mg/dL (70-99) Calcium Level 8.3 mg/dL (8.5-10.1) Iron Level 12 ug/dL (50-170) Total Iron Binding Capacity 348 ug/dL (250-450) Iron Saturation 3 % (15-34) Ferritin 44 ng/mL (8-252) Total Bilirubin 0.5 mg/dL (0.2-1.0) Aspartate Amino Transf (AST/SGOT) 16 U/L (15-37) Alanine Aminotransferase (ALT/SGPT) 9 U/L (14-59) Alkaline Phosphatase 88 U/L (46-116) HM-Vtb-Z-Type Natriuretic Peptide 4983 pg/mL (0-124) Total Protein 6.3 g/dL (6.4-8.2) Albumin 2.5 g/dL (3.4-5.0) Albumin/Globulin Ratio 0.7 (1.0-1.7) Erythrocyte Sedimentation Rate 94 (0-25) Vitamin B12 Level 500 pg/mL (247-911) Serum Folate 9.79 ng/ml (3.2-20.0) Urine Color Yellow Urine Clarity Clear Urine pH 6.0 Urine Specific [place] 1.010 Urine Protein Negative mg/dL (NEG-TRACE) Urine Glucose (UA) Negative mg/dL (NEG) Urine Ketones (Stick) Negative mg/dL (NEG) Urine Blood Negative (NEG) Urine Nitrite Negative (NEG) Urine Bilirubin Negative (NEG) Urine Urobilinogen Dipstick 0.2 mg/dL (0.2 mg/dL) Urine Leukocyte Esterase Negative (NEG) Urine RBC 0 /HPF (0-2) Urine WBC Occ /HPF (0-4) Urine Squamous Epithelial Cells Occ /LPF Urine Bacteria Few /HPF (0-FEW) O2 Saturation 91 % (92-99) Arterial Blood pH 7.38 (7.35-7.45) Arterial Blood pCO2 at Patient Temp 32 mmHg (35-46) Arterial Blood pO2 at Patient Temp 68 mmHg (65-108) Arterial Blood HCO3 18 mmol/L (21-28) Arterial Blood Base Excess -6 mmol/L (-3-3) FiO2 60 Test 09/19/17 04:20 09/19/17 08:00 09/19/17 12:06 09/19/17 12:35 White Blood Count 17.6 x10^3/uL (4.0-11.0) Red Blood Count 2.92 x10^6/uL (3.50-5.40) Hemoglobin 6.6 g/dL (12.0-15.5) Hematocrit 21.7 % (36.0-47.0) Mean Corpuscular Volume 74 fL (79-100) Mean Corpuscular Hemoglobin 22 pg (25-35) Mean Corpuscular Hemoglobin Concent 30 g/dL (31-37) Red Cell Distribution Width 25.1 % (11.5-14.5) Platelet Count 361 x10^3/uL (140-400) Neutrophils (%) (Auto) 87 % (31-73) Lymphocytes (%) (Auto) 4 % (24-48) Monocytes (%) (Auto) 6 % (0-9) Eosinophils (%) (Auto) 2 % (0-3) Basophils (%) (Auto) 1 % (0-3) Neutrophils # (Auto) 15.2 x10^3uL (1.8-7.7) Lymphocytes # (Auto) 0.7 x10^3/uL (1.0-4.8) Monocytes # (Auto) 1.1 x10^3/uL (0.0-1.1) Eosinophils # (Auto) 0.4 x10^3/uL (0.0-0.7) Basophils # (Auto) 0.2 x10^3/uL (0.0-0.2) Segmented Neutrophils % 86 % (35-66) Band Neutrophils % 2 % (0-9) Lymphocytes % 8 % (24-48) Monocytes % 3 % (0-10) Basophils % 1 % (0-3) Platelet Estimate Adequate (ADEQUATE) Large Platelets Occ Hypochromasia Present Anisocytosis Present Microcytosis Present Sodium Level 143 mmol/L (136-145) Potassium Level 4.0 mmol/L (3.5-5.1) Chloride Level 109 mmol/L (98-107) Carbon Dioxide Level 21 mmol/L (21-32) Anion Gap 13 (6-14) Blood Urea Nitrogen 22 mg/dL (7-20) Creatinine 1.5 mg/dL (0.6-1.0) Estimated GFR (Cockcroft-Gault) 35.4 Glucose Level 104 mg/dL (70-99) Calcium Level 8.7 mg/dL (8.5-10.1) Magnesium Level 1.9 mg/dL (1.8-2.4) O2 Saturation 93 % (92-99) 97 % (92-99) Arterial Blood pH 7.37 (7.35-7.45) 7.25 (7.35-7.45) Arterial Blood pCO2 at Patient Temp 33 mmHg (35-46) 46 mmHg (35-46) Arterial Blood pO2 at Patient Temp 73 mmHg (65-108) 106 mmHg (65-108) Arterial Blood HCO3 19 mmol/L (21-28) 20 mmol/L (21-28) Arterial Blood Base Excess -6 mmol/L (-3-3) -7 mmol/L (-3-3) FiO2 60 100 Influenza Type A Antigen Negative (NEGATIVE) Influenza Type B Antigen Negative (NEGATIVE) Laboratory Tests Test 09/18/17 13:45 09/18/17 17:35 09/19/17 04:20 09/19/17 08:00 Urine Color Yellow Urine Clarity Clear Urine pH 6.0 Urine Specific [place] 1.010 Urine Protein Negative mg/dL (NEG-TRACE) Urine Glucose (UA) Negative mg/dL (NEG) Urine Ketones (Stick) Negative mg/dL (NEG) Urine Blood Negative (NEG) Urine Nitrite Negative (NEG) Urine Bilirubin Negative (NEG) Urine Urobilinogen Dipstick 0.2 mg/dL (0.2 mg/dL) Urine Leukocyte Esterase Negative (NEG) Urine RBC 0 /HPF (0-2) Urine WBC Occ /HPF (0-4) Urine Squamous Epithelial Cells Occ /LPF Urine Bacteria Few /HPF (0-FEW) O2 Saturation 91 % (92-99) 93 % (92-99) Arterial Blood pH 7.38 (7.35-7.45) 7.37 (7.35-7.45) Arterial Blood pCO2 at Patient Temp 32 mmHg (35-46) 33 mmHg (35-46) Arterial Blood pO2 at Patient Temp 68 mmHg (65-108) 73 mmHg (65-108) Arterial Blood HCO3 18 mmol/L (21-28) 19 mmol/L (21-28) Arterial Blood Base Excess -6 mmol/L (-3-3) -6 mmol/L (-3-3) FiO2 60 60 White Blood Count 17.6 x10^3/uL (4.0-11.0) Red Blood Count 2.92 x10^6/uL (3.50-5.40) Hemoglobin 6.6 g/dL (12.0-15.5) Hematocrit 21.7 % (36.0-47.0) Mean Corpuscular Volume 74 fL (79-100) Mean Corpuscular Hemoglobin 22 pg (25-35) Mean Corpuscular Hemoglobin Concent 30 g/dL (31-37) Red Cell Distribution Width 25.1 % (11.5-14.5) Platelet Count 361 x10^3/uL (140-400) Neutrophils (%) (Auto) 87 % (31-73) Lymphocytes (%) (Auto) 4 % (24-48) Monocytes (%) (Auto) 6 % (0-9) Eosinophils (%) (Auto) 2 % (0-3) Basophils (%) (Auto) 1 % (0-3) Neutrophils # (Auto) 15.2 x10^3uL (1.8-7.7) Lymphocytes # (Auto) 0.7 x10^3/uL (1.0-4.8) Monocytes # (Auto) 1.1 x10^3/uL (0.0-1.1) Eosinophils # (Auto) 0.4 x10^3/uL (0.0-0.7) Basophils # (Auto) 0.2 x10^3/uL (0.0-0.2) Segmented Neutrophils % 86 % (35-66) Band Neutrophils % 2 % (0-9) Lymphocytes % 8 % (24-48) Monocytes % 3 % (0-10) Basophils % 1 % (0-3) Platelet Estimate Adequate (ADEQUATE) Large Platelets Occ Hypochromasia Present Anisocytosis Present Microcytosis Present Sodium Level 143 mmol/L (136-145) Potassium Level 4.0 mmol/L (3.5-5.1) Chloride Level 109 mmol/L (98-107) Carbon Dioxide Level 21 mmol/L (21-32) Anion Gap 13 (6-14) Blood Urea Nitrogen 22 mg/dL (7-20) Creatinine 1.5 mg/dL (0.6-1.0) Estimated GFR (Cockcroft-Gault) 35.4 Glucose Level 104 mg/dL (70-99) Calcium Level 8.7 mg/dL (8.5-10.1) Magnesium Level 1.9 mg/dL (1.8-2.4) Test 09/19/17 12:06 09/19/17 12:35 O2 Saturation 97 % (92-99) Arterial Blood pH 7.25 (7.35-7.45) Arterial Blood pCO2 at Patient Temp 46 mmHg (35-46) Arterial Blood pO2 at Patient Temp 106 mmHg (65-108) Arterial Blood HCO3 20 mmol/L (21-28) Arterial Blood Base Excess -7 mmol/L (-3-3) FiO2 100 Influenza Type A Antigen Negative (NEGATIVE) Influenza Type B Antigen Negative (NEGATIVE) Microbiology 09/17/17 Blood Culture - Preliminary, Resulted NO GROWTH AFTER 1 DAY Medications Current Medications Sodium Chloride 1,000 ml @ 125 mls/hr 1X ONCE IV Last administered on t 15:54; Start 09/17/17 at 15:15; Stop 09/17/17 at 23:14; Status DC Ondansetron HCl (Zofran) 4 mg PRN Q8HRS PRN IV NAUSEA/VOMITING; Start at 16:30; Stop 09/18/17 at 16:29; Status DC Ceftriaxone Sodium 50 ml @ 0 mls/hr 1X ONCE IV Last administered on 17:33; Start 09/17/17 at 16:45; Stop 09/17/17 at 16:46; Status DC Azithromycin 250 ml @ 250 mls/hr 1X ONCE IV Last administered on 09/17/17 22:38; Start 09/17/17 at 16:30; Stop 09/17/17 at 17:29; Status DC Albuterol/ Ipratropium (Duoneb) 3 ml 1X ONCE NEB Last administered on 17:00; Start 09/17/17 at 16:45; Stop 09/17/17 at 16:46; Status DC Potassium Chloride (Klor-Con) 40 meq 1X ONCE PO Last administered on 16:57; Start 09/17/17 at 16:45; Stop 09/17/17 at 16:46; Status DC Azithromycin (Zithromax) 250 mg DAILY PO Last administered on 09/18/17 10:25 ; Start 09/18/17 at 09:00; Stop 09/19/17 at 10:30; Status DC Ceftriaxone Sodium 1 gm/ Dextrose 50 ml @ 100 mls/hr Q24H IV ; Start 09/17/17 at 17:15; Status UNV Albuterol/ Ipratropium (Duoneb) 3 ml Q4HRS NEB Last administered on 09/19/17 12:50; Start 09/17/17 at 20:00 Ceftriaxone Sodium (Rocephin) 1 gm Q24H IVP Last administered on 09/18/17 17: 55; Start 09/18/17 at 16:00; Stop 09/19/17 at 10:30; Status DC Guaifenesin (Robitussin Dm) 10 ml PRN Q6HRS PRN PO COUGH; Start 09/17/17 at 17 :15 Sodium Chloride 1,000 ml @ 125 mls/hr 1X ONCE IV Last administered on 17:45; Start 09/17/17 at 17:15; Stop 09/17/17 at 22:12; Status DC Info (Do NOT chart on this placeholder) 1 each 1X ONCE MC ; Start 09/17/17 at 19:00; Stop 09/17/17 at 19:01; Status UNV Influenza Virus Vaccine Quadrival (Fluarix Quad [id number] Syringe) 0.5 ml ONCE ONCE VAX IM ; Start 09/17/17 at 21:00; Stop 09/17/17 at 21:01; Status DC Sodium Chloride 1,000 ml @ 130 mls/hr 1X ONCE IV Last administered on 22:31; Start 09/17/17 at 22:30; Stop 09/18/17 at 06:11; Status DC Sodium Bicarbonate 50 meq 1X ONCE IV Last administered on 09/17/17 22:31; Start 09/17/17 at 22:30; Stop 09/17/17 at 22:31; Status DC Alprazolam (Xanax) 1 mg PRN TID PRN PO ANXIETY Last administered on 09/19/17 02:19; Start 09/17/17 at 22:30 Furosemide (Lasix) 20 mg 1X ONCE IVP Last administered on 09/18/17 06:24; Start 09/18/17 at 06:30; Stop 09/18/17 at 06:31; Status DC Potassium Chloride (Klor-Con) 40 meq 1X ONCE PO Last administered on 10:25; Start 09/18/17 at 09:00; Stop 09/18/17 at 09:01; Status DC Iron Sucrose 500 mg/Sodium Chloride 275 ml @ 78.571 mls/ hr 1X ONCE IV Last administered on 09/18/17 10:24; Start 09/18/17 at 09:00; Stop 09/18/17 at 12 :29; Status DC Furosemide (Lasix) 20 mg 1X ONCE IVP Last administered on 09/18/17 10:30; Start 09/18/17 at 10:00; Stop 09/18/17 at 10:22; Status DC Pantoprazole Sodium (Protonix) 40 mg DAILYAC PO Last administered on 10:47; Start 09/18/17 at 11:00 Furosemide (Lasix) 20 mg 1X ONCE IVP Last administered on 09/18/17 10:47; Start 09/18/17 at 10:45; Stop 09/18/17 at 10:46; Status DC Potassium Chloride (Klor-Con) 40 meq 1X ONCE PO ; Start 09/18/17 at 11:45; Stop 09/18/17 at 11:46; Status DC Oxycodone/ Acetaminophen (Percocet 5/325) 1 tab PRN Q6HRS PRN PO PAIN Last administered on 09/18/17 13:23; Start 09/18/17 at 12:15 Lorazepam (Ativan) 1 mg PRN Q4HRS PRN IV ANXIETY / AGITATION Last administered on 09/18/17 12:25; Start 09/18/17 at 12:15; Stop 09/18/17 at 13:34; Status DC Fentanyl Citrate (Fentanyl 2ml Vial) 50 mcg PRN Q2HR PRN IV PAIN Last administered on 09/19/17 04:09; Start 09/18/17 at 12:15 Lorazepam (Ativan) 2 mg PRN Q4HRS PRN IV ANXIETY / AGITATION Last administered on 09/19/17 10:15; Start 09/18/17 at 13:30 Quetiapine Fumarate (SEROquel) 25 mg HS PO Last administered on 09/18/17 21: 03; Start 09/18/17 at 21:00; Stop 09/19/17 at 10:35; Status DC Haloperidol Lactate (Haldol) 5 mg PRN Q12HRS PRN IVP AGITATION; Start at 13:45 Lorazepam (Ativan) 1 mg PRN Q4HRS PRN IV ANXIETY / AGITATION; Start 09/19/17 at 10:15; Stop 09/19/17 at 10:18; Status DC Lorazepam (Ativan) 4 mg 1X ONCE IV ; Start 09/19/17 at 10:30; Stop 09/19/17 at 10:31; Status DC Vancomycin HCl (Vanco Per Pharmacy) 1 each PRN DAILY PRN MC SEE COMMENTS; Start 09/19/17 at 10:30 Piperacillin Sod/ Tazobactam Sod (Zosyn Per Pharmacy) 1 each PRN DAILY PRN MC SEE COMMENTS; Start 09/19/17 at 10:30 Vancomycin HCl 2 gm/Dextrose 500 ml @ 250 mls/hr 1X ONCE IV ; Start 09/19/17 at 11:00; Stop 09/19/17 at 12:59; Status DC Piperacillin Sod/ Tazobactam Sod (Zosyn) 3.375 gm Q6HRS IVP ; Start 09/19/17 at 11:00 Budesonide (Pulmicort) 0.5 mg RTBID NEB ; Start 09/19/17 at 20:00 Budesonide (Pulmicort) 0.5 mg 1X ONCE NEB Last administered on 09/19/17t 12: 50; Start 09/19/17 at 10:45; Stop 09/19/17 at 10:46; Status DC Pantoprazole Sodium (Protonix Vial) 40 mg DAILYAC IVP ; Start 09/19/17 at 11:30 Furosemide (Lasix) 40 mg DAILY IVP ; Start 09/19/17 at 11:00 Methylprednisolone Sodium Succinate (SOLU-Medrol 125MG VIAL) 125 mg 1X ONCE IV ; Start 09/19/17 at 10:45; Stop 09/19/17 at 10:46; Status DC Prednisone (Prednisone) 40 mg DAILY PO ; Start 09/19/17 at 11:00 Methylprednisolone Sodium Succinate (SOLU-Medrol 125MG VIAL) 125 mg Q8HRS IV ; Start 09/19/17 at 14:00 Midazolam HCl 100 ml @ 0 mls/hr CONT PRN IV SEE I/O RECORD; Start 09/19/17 at 11:00; Stop 09/19/17 at 12:51; Status DC Midazolam HCl (Versed) 5 mg 1X ONCE IV ; Start 09/19/17 at 11:00; Stop at 11:01; Status DC Fentanyl Citrate (Fentanyl 2ml Vial) 50 mcg 1X ONCE IV ; Start 09/19/17 at 11: 00; Stop 09/19/17 at 11:01; Status DC Midazolam HCl 100 ml @ As Directed STK-MED ONCE IV ; Start 09/19/17 at 10:55; Stop 09/19/17 at 10:56; Status DC Midazolam HCl (Versed) 5 mg STK-MED ONCE .ROUTE ; Start 09/19/17 at 10:55; Stop 09/19/17 at 10:56; Status DC Propofol 100 ml @ As Directed STK-MED ONCE IV ; Start 09/19/17 at 10:59; Stop 09/19/17 at 11:00; Status DC Norepinephrine Bitartrate 250 ml @ As Directed STK-MED ONCE IV ; Start at 10:59; Stop 09/19/17 at 11:00; Status DC Furosemide (Lasix) 20 mg 1X ONCE IVP ; Start 09/19/17 at 11:15; Stop at 11:16; Status DC Vecuronium Lynch (Norcuron Bolus) 10 mg STK-MED ONCE IV ; Start 09/19/17 at 11:21; Stop 09/19/17 at 11:22; Status DC Fentanyl Citrate 30 ml @ 0 mls/hr CONT PRN IV PROTOCOL Last administered on 12:14; Start 09/19/17 at 11:30 Vecuronium Lynch (Norcuron Bolus) 6 mg 1X ONCE IV Last administered on 09/19 11:42; Start 09/19/17 at 11:30; Stop 09/19/17 at 11:39; Status DC Propofol 10 ml @ 0 mls/hr 1X ONCE IV Last administered on 09/19/17 11:30; Start 09/19/17 at 11:30; Stop 09/19/17 at 11:39; Status DC Midazolam HCl 100 ml @ 0 mls/hr CONT PRN IV SEE I/O RECORD; Start 09/19/17 at 11:30 Norepinephrine Bitartrate 250 ml @ 0 mls/hr CONT PRN IV SEE I/O RECORD; Start 09/19/17 at 11:30 Succinylcholine Chloride (Anectine) 100 mg 1X ONCE IV Last administered on 11:42; Start 09/19/17 at 11:30; Stop 09/19/17 at 11:39; Status DC Sodium Bicarbonate 50 meq 1X ONCE IV ; Start 09/19/17 at 12:45; Stop at 12:46; Status DC Sodium Bicarbonate 50 meq 1X ONCE IV ; Start 09/19/17 at 12:45; Stop at 12:46; Status DC Active Scripts Active Reported Gabapentin 300 Mg Capsule 300 Mg PO TID Cymbalta (Duloxetine Hcl) 60 Mg Capsule.dr 1 Cap PO BID Hydrochlorothiazide Tablet (Hydrochlorothiazide) 25 Mg Tablet 1 Tab PO DAILY Xanax (Alprazolam) 1 Mg Tablet 1 Tab PO TID PRN Vitals/I & O Vital Sign - Last 24 Hours 09/18/17 09/18/17 09/18/17 09/18/17 13:23 15:18 16:00 16:00 Temp 100.0 100.0 Pulse 98 Resp 32 B/P (MAP) 119/75 (90) Pulse Ox 75 83 68 O2 Delivery Nasal Cannula Nasal Cannula Bi-pap Nasal Cannula O2 Flow Rate 6.0 5.0 2.0 09/18/17 09/18/17 09/18/17 09/18/17 16:10 16:15 16:30 16:45 Pulse 100 94 94 B/P (MAP) 107/65 (79) 95/60 (72) 91/55 (67) Pulse Ox 99 95 96 95 O2 Delivery BiPAP/CPAP BiPAP/CPAP BiPAP/CPAP BiPAP/CPAP 09/18/17 09/18/17 09/18/17 09/18/17 17:00 17:15 17:30 17:45 Temp 99.2 99.2 Pulse 96 97 94 94 B/P (MAP) 98/60 (73) 93/59 (70) 97/69 (78) 97/69 (78) Pulse Ox 93 94 95 93 O2 Delivery BiPAP/CPAP BiPAP/CPAP BiPAP/CPAP BiPAP/CPAP 09/18/17 09/18/17 09/18/17 09/18/17 18:00 19:00 19:51 20:00 Temp 99.0 99.0 Pulse 92 96 94 B/P (MAP) 99/61 (74) 106/67 (80) 99/57 (71) Pulse Ox 94 94 94 96 O2 Delivery BiPAP/CPAP BiPAP/CPAP BiPAP/CPAP BiPAP/CPAP 09/18/17 09/18/17 09/18/17 09/18/17 20:00 21:00 22:00 23:00 Pulse 92 98 94 B/P (MAP) 96/64 (75) 104/60 (75) 104/62 (76) Pulse Ox 92 94 98 O2 Delivery Nasal Cannula BiPAP/CPAP BiPAP/CPAP BiPAP/CPAP O2 Flow Rate 2.0 09/18/17 09/18/17 09/18/17 09/19/17 23:47 23:59 23:59 01:00 Temp 98.6 98.6 Pulse 96 98 B/P (MAP) 98/54 (69) 96/55 (69) Pulse Ox 95 98 91 O2 Delivery BiPAP/CPAP Nasal Cannula BiPAP/CPAP BiPAP/CPAP O2 Flow Rate 2.0 09/19/17 09/19/17 09/19/17 09/19/17 01:03 01:26 02:00 03:00 Pulse 94 94 Resp 22 30 B/P (MAP) 108/56 (73) 115/67 (83) Pulse Ox 92 91 94 91 O2 Delivery BiPAP/CPAP BiPAP/CPAP BiPAP/CPAP BiPAP/CPAP O2 Flow Rate 60.0 09/19/17 09/19/17 09/19/17 09/19/17 04:00 04:00 04:00 04:09 Temp 98.8 98.8 Pulse 98 Resp 36 29 B/P (MAP) 108/57 (74) Pulse Ox 95 86 89 O2 Delivery Nasal Cannula BiPAP/CPAP BiPAP/CPAP BiPAP/CPAP O2 Flow Rate 2.0 60.0 09/19/17 09/19/17 09/19/17 09/19/17 04:39 05:00 05:49 06:00 Pulse 98 98 Resp 30 28 28 B/P (MAP) 92/55 (67) 106/62 (77) Pulse Ox 91 88 95 93 O2 Delivery BiPAP/CPAP BiPAP/CPAP BiPAP/CPAP BiPAP/CPAP 09/19/17 09/19/17 09/19/17 09/19/17 08:11 11:30 12:14 12:51 Resp 20 Pulse Ox 93 100 98 100 O2 Delivery BiPAP/CPAP Ventilator Ventilator Ventilator Intake and Output 09/18/17 09/18/17 09/19/17 15:00 23:00 07:00 Intake Total 590 ml Output Total 1575 ml 510 ml 365 ml Balance -985 ml -510 ml -365 ml ABELARDO MOORE MD Sep 19, 2017 13:11
[2017-09-19] MEDS: PANTOPRAZOLE IV PUSH 40 MG VIAL. IVP SCH (13:22)
[2017-09-19] MEDS: PIPERACILLIN/TAZO IV Push 3.375 GM VIAL. IVP SCH ×3 (13:23→23:22)
[2017-09-19] MEDS ORDERED: LIDOCAINE 1% / SOD BICARB 8.4% 20 ML VIAL. IJ ONE ×2 (13:34→14:45)
--- NOTE | 2017-09-19 13:42 | PDOC ---
Subjective: Subjective: Sister c/o lack of urgency, waiting on atbx and transfusion. Objective: Objective: Now intubated. No GI concerns per RN. Vital Signs: Vital Signs Date Time Temp Pulse Resp B/P (MAP) Pulse Ox O2 Delivery O2 Flow Rate FiO2 09/19/17 12:51 100 Ventilator 09/19/17 12:14 20 09/19/17 06:00 98 106/62 (77) 09/19/17 04:09 60.0 09/19/17 04:00 98.8 98.8 Imaging: CXR IMPRESSION: 1. Interval insertion of an ET tube in satisfactory position. 2. Further interval worsening of the bilateral pulmonary infiltrates. PE: GEN: intubated LUNGS: coarse HEART: tachycardic ABD: NABS, S/ND NEURO/PSYCH: sedated A/P: STUART -Hgb improved w/ transfusion yesterday, now back to 6.6, no obvious bleeding -received IV iron, followed by hematology -colonoscopy last year w/ polyp, remote h/o EGD, daily NSAID use -on IV PPI Resp failure, CAP, COPD - intubated 09/19 Leukocytosis - worse GEO -- Transfuse as needed, continue IV PPI, observe for bleeding. SHAHLA FISHER Sep 19, 2017 13:42
--- NOTE | 2017-09-19 14:35 | EKG ---
[facility] [address] [place] [address] Test Date: 2017-09-19 Test Time: 14:30:47 Pat Name: TUNDE COYLE Department: Room: 108 1 Gender: F Addictions Therapist: SHAISTA : 1955 Requested By: PRATIBHA ISRAEL Order Number: [id number] Reading MD: Anton Brasher Measurements Intervals [place] Rate: 109 P: 38 NM: 120 QRS: 5 QRSD: 70 T: 43 QT: 326 QTc: 441 Interpretive Statements SINUS TACHYCARDIA LOW LIMB LEAD VOLTAGE NO SPECIFIC ECG ABNORMALITIES RI6.01 Electronically Signed On 09-19-2017 16:12:39 VEHICLE WASHER by Anton Brasher
--- NOTE | 2017-09-19 14:42 | RAD ---
Chest radiograph One View 09/19/2017 Clinical indication: Central line placed Comparison: Chest radiograph 09/19/2017 Findings: There has been interval retraction of a right IJ central venous catheter distal tip at the superior caval atrial junction. Endotracheal tube in similar position. Heart size is normal. Unchanged diffuse bilateral mixed pulmonary opacities. No pleural effusion or pneumothorax. Impression: 1. Slight retraction of right IJ central venous catheter with distal tip at the superior caval atrial junction. 2. Unchanged diffuse mixed pulmonary opacities.
--- NOTE | 2017-09-19 14:44 | RAD ---
Chest radiograph One View 09/19/2017 Clinical indication: Central line placement Comparison: Same-day chest radiograph and subsequent chest radiograph from same day Findings: Interval placement of a right IJ central venous catheter with distal tip at the mid right atrial level. Endotracheal tube in similar position. Persistent diffuse mixed pulmonary opacities throughout the lungs. Impression: 1. Placement of right IJ central venous catheter with distal tip at the mid right atrial level. Subsequent radiograph demonstrates slight retraction at the superior cavoatrial junction. 2. Unchanged diffuse mixed pulmonary opacities.
[2017-09-19] MEDS: VANCOMYCIN PER PHARMACY MC PRN ×2 (15:15→15:21)
--- NOTE | 2017-09-19 17:15 | PDOC ---
PROGRESS NOTES Subjective Subjective HPI - Iron deficiency anemia. ROS - no bleed Objective Objective Vital Signs Date Time Temp Pulse Resp B/P (MAP) Pulse Ox O2 Delivery O2 Flow Rate FiO2 09/19/17 16:13 100 Ventilator 09/19/17 14:55 99.5 105 22 96/62 99.5 09/19/17 04:09 60.0 Intake and Output 09/19/17 07:00 Intake Total 590 ml Output Total 2450 ml Balance -1860 ml Intake Oral 550 ml Blood Product IV Normal Saline Flush 40 ml Output Urine Total 2450 ml Physical Exam General: mild distress Neck: No JVD Assessment Assessment Problems Medical Problems: (1) Dyspnea Status: Acute (2) Hypoalbuminemia Status: Acute (3) Metabolic acidosis Status: Acute (4) Pneumonia Status: Acute IMPRESSION AND PLAN: 1. Iron deficiency anemia. There is no evidence of blood loss. I agree to proceed with Gastroenterology consultation for further workup. The patient declines esophagogastroduodenoscopy and colonoscopy. Agree to pursue with iron supplementation. She received Venofer 500 mg intravenous on 09/18/2017. I will continue to monitor hemoglobin and transfuse as needed. Hemoglobin improved to 7.7 after transfusion. Then worse at 6.6 on 09/19/17. Plan 1 unit 09/19/17. 2. Leukocytosis, reactive from underlying pneumonia. Management per Pulmonary Medicine. 3. Pneumonia/dyspnea - I appreciate consultation by Dr. Adan Thurman. Comment Review of Relevant I have reviewed the following items tha (where applicable) has been applied. Labs Laboratory Tests Test 09/18/17 04:10 09/18/17 12:10 09/18/17 13:45 09/18/17 17:35 White Blood Count 14.4 x10^3/uL (4.0-11.0) Red Blood Count 2.64 x10^6/uL (3.50-5.40) Hemoglobin 5.9 g/dL (12.0-15.5) 7.7 g/dL (12.0-15.5) Hematocrit 19.7 % (36.0-47.0) 25.5 % (36.0-47.0) Mean Corpuscular Volume 75 fL (79-100) Mean Corpuscular Hemoglobin 22 pg (25-35) Mean Corpuscular Hemoglobin Concent 30 g/dL (31-37) Red Cell Distribution Width 27.7 % (11.5-14.5) Platelet Count 332 x10^3/uL (140-400) Neutrophils (%) (Auto) 83 % (31-73) Lymphocytes (%) (Auto) 5 % (24-48) Monocytes (%) (Auto) 9 % (0-9) Eosinophils (%) (Auto) 2 % (0-3) Basophils (%) (Auto) 1 % (0-3) Neutrophils # (Auto) 12.0 x10^3uL (1.8-7.7) Lymphocytes # (Auto) 0.8 x10^3/uL (1.0-4.8) Monocytes # (Auto) 1.3 x10^3/uL (0.0-1.1) Eosinophils # (Auto) 0.3 x10^3/uL (0.0-0.7) Basophils # (Auto) 0.1 x10^3/uL (0.0-0.2) Reticulocyte Count (auto) 1.6 % (0.5-2.5) Sodium Level 144 mmol/L (136-145) Potassium Level 3.4 mmol/L (3.5-5.1) Chloride Level 110 mmol/L (98-107) Carbon Dioxide Level 20 mmol/L (21-32) Anion Gap 14 (6-14) Blood Urea Nitrogen 21 mg/dL (7-20) Creatinine 1.4 mg/dL (0.6-1.0) Estimated GFR (Cockcroft-Gault) 38.4 BUN/Creatinine Ratio 15 (6-20) Glucose Level 102 mg/dL (70-99) Calcium Level 8.3 mg/dL (8.5-10.1) Iron Level 12 ug/dL (50-170) Total Iron Binding Capacity 348 ug/dL (250-450) Iron Saturation 3 % (15-34) Ferritin 44 ng/mL (8-252) Total Bilirubin 0.5 mg/dL (0.2-1.0) Aspartate Amino Transf (AST/SGOT) 16 U/L (15-37) Alanine Aminotransferase (ALT/SGPT) 9 U/L (14-59) Alkaline Phosphatase 88 U/L (46-116) WV-Lzt-N-Type Natriuretic Peptide 4983 pg/mL (0-124) Total Protein 6.3 g/dL (6.4-8.2) Albumin 2.5 g/dL (3.4-5.0) Albumin/Globulin Ratio 0.7 (1.0-1.7) Erythrocyte Sedimentation Rate 94 (0-25) Vitamin B12 Level 500 pg/mL (247-911) Serum Folate 9.79 ng/ml (3.2-20.0) Urine Color Yellow Urine Clarity Clear Urine pH 6.0 Urine Specific [place] 1.010 Urine Protein Negative mg/dL (NEG-TRACE) Urine Glucose (UA) Negative mg/dL (NEG) Urine Ketones (Stick) Negative mg/dL (NEG) Urine Blood Negative (NEG) Urine Nitrite Negative (NEG) Urine Bilirubin Negative (NEG) Urine Urobilinogen Dipstick 0.2 mg/dL (0.2 mg/dL) Urine Leukocyte Esterase Negative (NEG) Urine RBC 0 /HPF (0-2) Urine WBC Occ /HPF (0-4) Urine Squamous Epithelial Cells Occ /LPF Urine Bacteria Few /HPF (0-FEW) O2 Saturation 91 % (92-99) Arterial Blood pH 7.38 (7.35-7.45) Arterial Blood pCO2 at Patient Temp 32 mmHg (35-46) Arterial Blood pO2 at Patient Temp 68 mmHg (65-108) Arterial Blood HCO3 18 mmol/L (21-28) Arterial Blood Base Excess -6 mmol/L (-3-3) FiO2 60 Test 09/19/17 04:20 09/19/17 08:00 09/19/17 12:06 09/19/17 12:35 White Blood Count 17.6 x10^3/uL (4.0-11.0) Red Blood Count 2.92 x10^6/uL (3.50-5.40) Hemoglobin 6.6 g/dL (12.0-15.5) Hematocrit 21.7 % (36.0-47.0) Mean Corpuscular Volume 74 fL (79-100) Mean Corpuscular Hemoglobin 22 pg (25-35) Mean Corpuscular Hemoglobin Concent 30 g/dL (31-37) Red Cell Distribution Width 25.1 % (11.5-14.5) Platelet Count 361 x10^3/uL (140-400) Neutrophils (%) (Auto) 87 % (31-73) Lymphocytes (%) (Auto) 4 % (24-48) Monocytes (%) (Auto) 6 % (0-9) Eosinophils (%) (Auto) 2 % (0-3) Basophils (%) (Auto) 1 % (0-3) Neutrophils # (Auto) 15.2 x10^3uL (1.8-7.7) Lymphocytes # (Auto) 0.7 x10^3/uL (1.0-4.8) Monocytes # (Auto) 1.1 x10^3/uL (0.0-1.1) Eosinophils # (Auto) 0.4 x10^3/uL (0.0-0.7) Basophils # (Auto) 0.2 x10^3/uL (0.0-0.2) Segmented Neutrophils % 86 % (35-66) Band Neutrophils % 2 % (0-9) Lymphocytes % 8 % (24-48) Monocytes % 3 % (0-10) Basophils % 1 % (0-3) Platelet Estimate Adequate (ADEQUATE) Large Platelets Occ Hypochromasia Present Anisocytosis Present Microcytosis Present Sodium Level 143 mmol/L (136-145) Potassium Level 4.0 mmol/L (3.5-5.1) Chloride Level 109 mmol/L (98-107) Carbon Dioxide Level 21 mmol/L (21-32) Anion Gap 13 (6-14) Blood Urea Nitrogen 22 mg/dL (7-20) Creatinine 1.5 mg/dL (0.6-1.0) Estimated GFR (Cockcroft-Gault) 35.4 Glucose Level 104 mg/dL (70-99) Calcium Level 8.7 mg/dL (8.5-10.1) Magnesium Level 1.9 mg/dL (1.8-2.4) O2 Saturation 93 % (92-99) 97 % (92-99) Arterial Blood pH 7.37 (7.35-7.45) 7.25 (7.35-7.45) Arterial Blood pCO2 at Patient Temp 33 mmHg (35-46) 46 mmHg (35-46) Arterial Blood pO2 at Patient Temp 73 mmHg (65-108) 106 mmHg (65-108) Arterial Blood HCO3 19 mmol/L (21-28) 20 mmol/L (21-28) Arterial Blood Base Excess -6 mmol/L (-3-3) -7 mmol/L (-3-3) FiO2 60 100 Influenza Type A Antigen Negative (NEGATIVE) Influenza Type B Antigen Negative (NEGATIVE) Laboratory Tests Test 09/18/17 17:35 09/19/17 04:20 09/19/17 08:00 09/19/17 12:06 O2 Saturation 91 % (92-99) 93 % (92-99) 97 % (92-99) Arterial Blood pH 7.38 (7.35-7.45) 7.37 (7.35-7.45) 7.25 (7.35-7.45) Arterial Blood pCO2 at Patient Temp 32 mmHg (35-46) 33 mmHg (35-46) 46 mmHg (35-46) Arterial Blood pO2 at Patient Temp 68 mmHg (65-108) 73 mmHg (65-108) 106 mmHg (65-108) Arterial Blood HCO3 18 mmol/L (21-28) 19 mmol/L (21-28) 20 mmol/L (21-28) Arterial Blood Base Excess -6 mmol/L (-3-3) -6 mmol/L (-3-3) -7 mmol/L (-3-3) FiO2 60 60 100 White Blood Count 17.6 x10^3/uL (4.0-11.0) Red Blood Count 2.92 x10^6/uL (3.50-5.40) Hemoglobin 6.6 g/dL (12.0-15.5) Hematocrit 21.7 % (36.0-47.0) Mean Corpuscular Volume 74 fL (79-100) Mean Corpuscular Hemoglobin 22 pg (25-35) Mean Corpuscular Hemoglobin Concent 30 g/dL (31-37) Red Cell Distribution Width 25.1 % (11.5-14.5) Platelet Count 361 x10^3/uL (140-400) Neutrophils (%) (Auto) 87 % (31-73) Lymphocytes (%) (Auto) 4 % (24-48) Monocytes (%) (Auto) 6 % (0-9) Eosinophils (%) (Auto) 2 % (0-3) Basophils (%) (Auto) 1 % (0-3) Neutrophils # (Auto) 15.2 x10^3uL (1.8-7.7) Lymphocytes # (Auto) 0.7 x10^3/uL (1.0-4.8) Monocytes # (Auto) 1.1 x10^3/uL (0.0-1.1) Eosinophils # (Auto) 0.4 x10^3/uL (0.0-0.7) Basophils # (Auto) 0.2 x10^3/uL (0.0-0.2) Segmented Neutrophils % 86 % (35-66) Band Neutrophils % 2 % (0-9) Lymphocytes % 8 % (24-48) Monocytes % 3 % (0-10) Basophils % 1 % (0-3) Platelet Estimate Adequate (ADEQUATE) Large Platelets Occ Hypochromasia Present Anisocytosis Present Microcytosis Present Sodium Level 143 mmol/L (136-145) Potassium Level 4.0 mmol/L (3.5-5.1) Chloride Level 109 mmol/L (98-107) Carbon Dioxide Level 21 mmol/L (21-32) Anion Gap 13 (6-14) Blood Urea Nitrogen 22 mg/dL (7-20) Creatinine 1.5 mg/dL (0.6-1.0) Estimated GFR (Cockcroft-Gault) 35.4 Glucose Level 104 mg/dL (70-99) Calcium Level 8.7 mg/dL (8.5-10.1) Magnesium Level 1.9 mg/dL (1.8-2.4) Test 09/19/17 12:35 Influenza Type A Antigen Negative (NEGATIVE) Influenza Type B Antigen Negative (NEGATIVE) Microbiology 09/17/17 Blood Culture - Preliminary, Resulted NO GROWTH AFTER 1 DAY Medications Current Medications Sodium Chloride 1,000 ml @ 125 mls/hr 1X ONCE IV Last administered on t 15:54; Start 09/17/17 at 15:15; Stop 09/17/17 at 23:14; Status DC Ondansetron HCl (Zofran) 4 mg PRN Q8HRS PRN IV NAUSEA/VOMITING; Start at 16:30; Stop 09/18/17 at 16:29; Status DC Ceftriaxone Sodium 50 ml @ 0 mls/hr 1X ONCE IV Last administered on 17:33; Start 09/17/17 at 16:45; Stop 09/17/17 at 16:46; Status DC Azithromycin 250 ml @ 250 mls/hr 1X ONCE IV Last administered on 09/17/17 22:38; Start 09/17/17 at 16:30; Stop 09/17/17 at 17:29; Status DC Albuterol/ Ipratropium (Duoneb) 3 ml 1X ONCE NEB Last administered on 17:00; Start 09/17/17 at 16:45; Stop 09/17/17 at 16:46; Status DC Potassium Chloride (Klor-Con) 40 meq 1X ONCE PO Last administered on 16:57; Start 09/17/17 at 16:45; Stop 09/17/17 at 16:46; Status DC Azithromycin (Zithromax) 250 mg DAILY PO Last administered on 09/18/17 10:25 ; Start 09/18/17 at 09:00; Stop 09/19/17 at 10:30; Status DC Ceftriaxone Sodium 1 gm/ Dextrose 50 ml @ 100 mls/hr Q24H IV ; Start 09/17/17 at 17:15; Status UNV Albuterol/ Ipratropium (Duoneb) 3 ml Q4HRS NEB Last administered on 09/19/17 16:13; Start 09/17/17 at 20:00 Ceftriaxone Sodium (Rocephin) 1 gm Q24H IVP Last administered on 09/18/17 17: 55; Start 09/18/17 at 16:00; Stop 09/19/17 at 10:30; Status DC Guaifenesin (Robitussin Dm) 10 ml PRN Q6HRS PRN PO COUGH; Start 09/17/17 at 17 :15 Sodium Chloride 1,000 ml @ 125 mls/hr 1X ONCE IV Last administered on 17:45; Start 09/17/17 at 17:15; Stop 09/17/17 at 22:12; Status DC Info (Do NOT chart on this placeholder) 1 each 1X ONCE MC ; Start 09/17/17 at 19:00; Stop 09/17/17 at 19:01; Status UNV Influenza Virus Vaccine Quadrival (Fluarix Quad [id number] Syringe) 0.5 ml ONCE ONCE VAX IM ; Start 09/17/17 at 21:00; Stop 09/17/17 at 21:01; Status DC Sodium Chloride 1,000 ml @ 130 mls/hr 1X ONCE IV Last administered on 22:31; Start 09/17/17 at 22:30; Stop 09/18/17 at 06:11; Status DC Sodium Bicarbonate 50 meq 1X ONCE IV Last administered on 09/17/17 22:31; Start 09/17/17 at 22:30; Stop 09/17/17 at 22:31; Status DC Alprazolam (Xanax) 1 mg PRN TID PRN PO ANXIETY Last administered on 09/19/17 02:19; Start 09/17/17 at 22:30 Furosemide (Lasix) 20 mg 1X ONCE IVP Last administered on 09/18/17 06:24; Start 09/18/17 at 06:30; Stop 09/18/17 at 06:31; Status DC Potassium Chloride (Klor-Con) 40 meq 1X ONCE PO Last administered on 10:25; Start 09/18/17 at 09:00; Stop 09/18/17 at 09:01; Status DC Iron Sucrose 500 mg/Sodium Chloride 275 ml @ 78.571 mls/ hr 1X ONCE IV Last administered on 09/18/17 10:24; Start 09/18/17 at 09:00; Stop 09/18/17 at 12 :29; Status DC Furosemide (Lasix) 20 mg 1X ONCE IVP Last administered on 09/18/17 10:30; Start 09/18/17 at 10:00; Stop 09/18/17 at 10:22; Status DC Pantoprazole Sodium (Protonix) 40 mg DAILYAC PO Last administered on 10:47; Start 09/18/17 at 11:00; Stop 09/19/17 at 13:41; Status DC Furosemide (Lasix) 20 mg 1X ONCE IVP Last administered on 09/18/17 10:47; Start 09/18/17 at 10:45; Stop 09/18/17 at 10:46; Status DC Potassium Chloride (Klor-Con) 40 meq 1X ONCE PO ; Start 09/18/17 at 11:45; Stop 09/18/17 at 11:46; Status DC Oxycodone/ Acetaminophen (Percocet 5/325) 1 tab PRN Q6HRS PRN PO PAIN Last administered on 09/18/17 13:23; Start 09/18/17 at 12:15 Lorazepam (Ativan) 1 mg PRN Q4HRS PRN IV ANXIETY / AGITATION Last administered on 09/18/17 12:25; Start 09/18/17 at 12:15; Stop 09/18/17 at 13:34; Status DC Fentanyl Citrate (Fentanyl 2ml Vial) 50 mcg PRN Q2HR PRN IV PAIN Last administered on 09/19/17 04:09; Start 09/18/17 at 12:15 Lorazepam (Ativan) 2 mg PRN Q4HRS PRN IV ANXIETY / AGITATION Last administered on 09/19/17 10:15; Start 09/18/17 at 13:30 Quetiapine Fumarate (SEROquel) 25 mg HS PO Last administered on 09/18/17 21: 03; Start 09/18/17 at 21:00; Stop 09/19/17 at 10:35; Status DC Haloperidol Lactate (Haldol) 5 mg PRN Q12HRS PRN IVP AGITATION; Start at 13:45 Lorazepam (Ativan) 1 mg PRN Q4HRS PRN IV ANXIETY / AGITATION; Start 09/19/17 at 10:15; Stop 09/19/17 at 10:18; Status DC Lorazepam (Ativan) 4 mg 1X ONCE IV ; Start 09/19/17 at 10:30; Stop 09/19/17 at 10:31; Status DC Vancomycin HCl (Vanco Per Pharmacy) 1 each PRN DAILY PRN MC SEE COMMENTS Last administered on 09/19/17 15:21; Start 09/19/17 at 10:30 Piperacillin Sod/ Tazobactam Sod (Zosyn Per Pharmacy) 1 each PRN DAILY PRN MC SEE COMMENTS; Start 09/19/17 at 10:30 Vancomycin HCl 2 gm/Dextrose 500 ml @ 250 mls/hr 1X ONCE IV Last administered on 09/19/17 14:53; Start 09/19/17 at 11:00; Stop 09/19/17 at 12 :59; Status DC Piperacillin Sod/ Tazobactam Sod (Zosyn) 3.375 gm Q6HRS IVP Last administered on 09/19/17 13:23; Start 09/19/17 at 11:00 Budesonide (Pulmicort) 0.5 mg RTBID NEB ; Start 09/19/17 at 20:00 Budesonide (Pulmicort) 0.5 mg 1X ONCE NEB Last administered on 09/19/17 12: 50; Start 09/19/17 at 10:45; Stop 09/19/17 at 10:46; Status DC Pantoprazole Sodium (Protonix Vial) 40 mg DAILYAC IVP Last administered on 13:22; Start 09/19/17 at 11:30 Furosemide (Lasix) 40 mg DAILY IVP ; Start 09/19/17 at 11:00 Methylprednisolone Sodium Succinate (SOLU-Medrol 125MG VIAL) 125 mg 1X ONCE IV Last administered on 09/19/17 13:23; Start 09/19/17 at 10:45; Stop at 10:46; Status DC Prednisone (Prednisone) 40 mg DAILY PO ; Start 09/19/17 at 11:00 Methylprednisolone Sodium Succinate (SOLU-Medrol 125MG VIAL) 125 mg Q8HRS IV ; Start 09/19/17 at 14:00 Midazolam HCl 100 ml @ 0 mls/hr CONT PRN IV SEE I/O RECORD; Start 09/19/17 at 11:00; Stop 09/19/17 at 12:51; Status DC Midazolam HCl (Versed) 5 mg 1X ONCE IV ; Start 09/19/17 at 11:00; Stop at 11:01; Status DC Fentanyl Citrate (Fentanyl 2ml Vial) 50 mcg 1X ONCE IV ; Start 09/19/17 at 11: 00; Stop 09/19/17 at 11:01; Status DC Midazolam HCl 100 ml @ As Directed STK-MED ONCE IV ; Start 09/19/17 at 10:55; Stop 09/19/17 at 10:56; Status DC Midazolam HCl (Versed) 5 mg STK-MED ONCE .ROUTE ; Start 09/19/17 at 10:55; Stop 09/19/17 at 10:56; Status DC Propofol 100 ml @ As Directed STK-MED ONCE IV ; Start 09/19/17 at 10:59; Stop 09/19/17 at 11:00; Status DC Norepinephrine Bitartrate 250 ml @ As Directed STK-MED ONCE IV ; Start at 10:59; Stop 09/19/17 at 11:00; Status DC Furosemide (Lasix) 20 mg 1X ONCE IVP ; Start 09/19/17 at 11:15; Stop at 11:16; Status DC Vecuronium Korbel (Norcuron Bolus) 10 mg STK-MED ONCE IV ; Start 09/19/17 at 11:21; Stop 09/19/17 at 11:22; Status DC Fentanyl Citrate 30 ml @ 0 mls/hr CONT PRN IV PROTOCOL Last administered on 12:14; Start 09/19/17 at 11:30 Vecuronium Korbel (Norcuron Bolus) 6 mg 1X ONCE IV Last administered on 09/19 11:42; Start 09/19/17 at 11:30; Stop 09/19/17 at 11:39; Status DC Propofol 10 ml @ 0 mls/hr 1X ONCE IV Last administered on 09/19/17 11:30; Start 09/19/17 at 11:30; Stop 09/19/17 at 11:39; Status DC Midazolam HCl 100 ml @ 0 mls/hr CONT PRN IV SEE I/O RECORD Last administered on 09/19/17 15:35; Start 09/19/17 at 11:30 Norepinephrine Bitartrate 250 ml @ 0 mls/hr CONT PRN IV SEE I/O RECORD; Start 09/19/17 at 11:30 Succinylcholine Chloride (Anectine) 100 mg 1X ONCE IV Last administered on 11:42; Start 09/19/17 at 11:30; Stop 09/19/17 at 11:39; Status DC Sodium Bicarbonate 50 meq 1X ONCE IV Last administered on 09/19/17 13:23; Start 09/19/17 at 12:45; Stop 09/19/17 at 12:46; Status DC Sodium Bicarbonate 50 meq 1X ONCE IV Last administered on 09/19/17 13:23; Start 09/19/17 at 12:45; Stop 09/19/17 at 12:46; Status DC Lidocaine/Sodium Bicarbonate (Buffered Lidocaine 1%) 20 ml STK-MED ONCE IJ ; Start 09/19/17 at 13:34; Stop 09/19/17 at 13:35; Status DC Vecuronium [place] (Norcuron Bolus) 10 mg 1X ONCE IV Last administered on t 15:05; Start 09/19/17 at 14:00; Stop 09/19/17 at 14:02; Status DC Lidocaine/Sodium Bicarbonate (Buffered Lidocaine 1%) 3 ml 1X ONCE IJ ; Start 09/19/17 at 14:45; Stop 09/19/17 at 14:46; Status DC Vancomycin HCl 1.25 gm/Dextrose 250 ml @ 166.667 mls/hr Q24H IV ; Start at 15:00 Vancomycin HCl 1 each 1X ONCE MC ; Start 09/21/17 at 14:30; Stop 09/21/17 at 14:31 Azithromycin 500 mg/Sodium Chloride 250 ml @ 250 mls/hr Q24H IV ; Start at 16:30 Active Scripts Active Reported Gabapentin 300 Mg Capsule 300 Mg PO TID Cymbalta (Duloxetine Hcl) 60 Mg Capsule. 1 Cap PO BID Hydrochlorothiazide Tablet (Hydrochlorothiazide) 25 Mg Tablet 1 Tab PO DAILY Xanax (Alprazolam) 1 Mg Tablet 1 Tab PO TID PRN Vitals/I & O Vital Sign - Last 24 Hours 09/18/17 09/18/17 09/18/17 09/18/17 17:15 17:30 17:45 18:00 Temp 99.2 99.2 Pulse 97 94 94 92 B/P (MAP) 93/59 (70) 97/69 (78) 97/69 (78) 99/61 (74) Pulse Ox 94 95 93 94 O2 Delivery BiPAP/CPAP BiPAP/CPAP BiPAP/CPAP BiPAP/CPAP 09/18/17 09/18/17 09/18/17 09/18/17 19:00 19:51 20:00 20:00 Temp 99.0 99.0 Pulse 96 94 B/P (MAP) 106/67 (80) 99/57 (71) Pulse Ox 94 94 96 O2 Delivery BiPAP/CPAP BiPAP/CPAP BiPAP/CPAP Nasal Cannula O2 Flow Rate 2.0 09/18/17 09/18/17 09/18/17 09/18/17 21:00 22:00 23:00 23:47 Pulse 92 98 94 B/P (MAP) 96/64 (75) 104/60 (75) 104/62 (76) Pulse Ox 92 94 98 95 O2 Delivery BiPAP/CPAP BiPAP/CPAP BiPAP/CPAP BiPAP/CPAP 09/18/17 09/18/17 09/19/17 09/19/17 23:59 23:59 01:00 01:03 Temp 98.6 98.6 Pulse 96 98 Resp 22 B/P (MAP) 98/54 (69) 96/55 (69) Pulse Ox 98 91 92 O2 Delivery Nasal Cannula BiPAP/CPAP BiPAP/CPAP BiPAP/CPAP O2 Flow Rate 2.0 60.0 09/19/17 09/19/17 09/19/17 09/19/17 01:26 02:00 03:00 04:00 Pulse 94 94 Resp 30 B/P (MAP) 108/56 (73) 115/67 (83) Pulse Ox 91 94 91 O2 Delivery BiPAP/CPAP BiPAP/CPAP BiPAP/CPAP Nasal Cannula O2 Flow Rate 2.0 09/19/17 09/19/17 09/19/17 09/19/17 04:00 04:00 04:09 04:39 Temp 98.8 98.8 Pulse 98 Resp 36 29 30 B/P (MAP) 108/57 (74) Pulse Ox 95 86 89 91 O2 Delivery BiPAP/CPAP BiPAP/CPAP BiPAP/CPAP BiPAP/CPAP O2 Flow Rate 60.0 09/19/17 09/19/17 09/19/17 09/19/17 05:00 05:49 06:00 08:00 Pulse 98 98 Resp 28 28 B/P (MAP) 92/55 (67) 106/62 (77) Pulse Ox 88 95 93 O2 Delivery BiPAP/CPAP BiPAP/CPAP BiPAP/CPAP Bi-pap 09/19/17 09/19/17 09/19/17 09/19/17 08:11 11:30 12:14 12:51 Resp 20 Pulse Ox 93 100 98 100 O2 Delivery BiPAP/CPAP Ventilator Ventilator Ventilator 09/19/17 09/19/17 14:55 16:13 Temp 99.5 99.5 Pulse 105 Resp 22 B/P (MAP) 96/62 Pulse Ox 100 O2 Delivery Ventilator Intake and Output 09/18/17 09/18/17 09/19/17 15:00 23:00 07:00 Intake Total 590 ml Output Total 1575 ml 510 ml 365 ml Balance -985 ml -510 ml -365 ml ELLA ORTEGA MD Sep 19, 2017 17:15
[2017-09-19] MEDS: AZITHROMYCIN 500 MG in IV NORMAL SALINE 250ML 250 ML IV SCH (17:21)
[2017-09-19] MEDS: methylPREDNISolone SOD SUCC PF 125 MG/2 ML VIAL. IV SCH ×2 (18:23→21:33)
[2017-09-19] MEDS: BUDESONIDE 0.5 MG/2 ML NEBU. NEB SCH (19:57)
[2017-09-19] MEDS: NOREPINEPHRIN PREMIX 250 ML IV PRN (21:03)
[2017-09-20] VITALS (26 sets, daily range): BP systolic 90–121; BP diastolic 57–78
[2017-09-20] MEDS: MIDAZOLAM 100MG/100ML PREMIX 100 ML IV PRN ×3 (01:45→19:23)
[2017-09-20] MEDS: IPRATRPIUM/ALBUTEROL 0.5/2.5MG 3 ML NEBU. NEB SCH ×6 (02:35→23:55)
[2017-09-20] MEDS: methylPREDNISolone SOD SUCC PF 125 MG/2 ML VIAL. IV SCH ×3 (05:09→21:20)
[2017-09-20] MEDS: PIPERACILLIN/TAZO IV Push 3.375 GM VIAL. IVP SCH ×3 (05:10→18:04)
[2017-09-20 06:43] LABS: BASO % 0 % (0-3); EOS % 0 % (0-3); HEMATOCRIT 25.7 % (36.0-47.0); HEMOGLOBIN 7.9 g/dL (12.0-15.5); LYMPH # 0.4 x10^3/uL (1.0-4.8); LYMPH % 3 % (24-48); MEAN CORPUSCULAR HEMOGLOBIN 24 pg (25-35); MEAN CORPUSCULAR HGB CONC 31 g/dL (31-37); MEAN CORPUSCULAR VOLUME 77 fL (79-100); MONO % 2 % (0-9); NEUT % 95 % (31-73); PLATELET COUNT 402 x10^3/uL (140-400); RED BLOOD COUNT 3.35 x10^6/uL (3.50-5.40); RED CELL DISTRIBUTION WIDTH 25.3 % (11.5-14.5); WHITE BLOOD COUNT 17.3 x10^3/uL (4.0-11.0)
[2017-09-20 07:33] LABS: ALBUMIN 2.2 g/dL (3.4-5.0); ALBUMIN/GLOBULIN RATIO 0.5 (1.0-1.7); CALCIUM 9.1 mg/dL (8.5-10.1); CREATININE 1.5 mg/dL (0.6-1.0); GFR 35.4; POTASSIUM 3.7 mmol/L (3.5-5.1); TOTAL BILIRUBIN 0.6 mg/dL (0.2-1.0); TOTAL PROTEIN 6.3 g/dL (6.4-8.2)
--- NOTE | 2017-09-20 07:46 | PDOC ---
Infectious Disease Note ROS ROS Vital Sign Vital Signs Vital Signs Date Time Temp Pulse Resp B/P (MAP) Pulse Ox O2 Delivery O2 Flow Rate FiO2 09/20/17 06:00 88 22 107/69 (82) 96 Ventilator 09/20/17 04:00 98.6 98.6 Labs Lab Laboratory Tests Test 09/19/17 08:00 09/19/17 12:06 09/19/17 12:35 09/20/17 06:15 O2 Saturation 93 % (92-99) 97 % (92-99) Arterial Blood pH 7.37 (7.35-7.45) 7.25 (7.35-7.45) Arterial Blood pCO2 at Patient Temp 33 mmHg (35-46) 46 mmHg (35-46) Arterial Blood pO2 at Patient Temp 73 mmHg (65-108) 106 mmHg (65-108) Arterial Blood HCO3 19 mmol/L (21-28) 20 mmol/L (21-28) Arterial Blood Base Excess -6 mmol/L (-3-3) -7 mmol/L (-3-3) FiO2 60 100 Influenza Type A Antigen Negative (NEGATIVE) Influenza Type B Antigen Negative (NEGATIVE) White Blood Count 17.3 x10^3/uL (4.0-11.0) Red Blood Count 3.35 x10^6/uL (3.50-5.40) Hemoglobin 7.9 g/dL (12.0-15.5) Hematocrit 25.7 % (36.0-47.0) Mean Corpuscular Volume 77 fL (79-100) Mean Corpuscular Hemoglobin 24 pg (25-35) Mean Corpuscular Hemoglobin Concent 31 g/dL (31-37) Red Cell Distribution Width 25.3 % (11.5-14.5) Platelet Count 402 x10^3/uL (140-400) Neutrophils (%) (Auto) 95 % (31-73) Lymphocytes (%) (Auto) 3 % (24-48) Monocytes (%) (Auto) 2 % (0-9) Eosinophils (%) (Auto) 0 % (0-3) Basophils (%) (Auto) 0 % (0-3) Neutrophils # (Auto) 16.4 x10^3uL (1.8-7.7) Lymphocytes # (Auto) 0.4 x10^3/uL (1.0-4.8) Monocytes # (Auto) 0.4 x10^3/uL (0.0-1.1) Eosinophils # (Auto) 0.0 x10^3/uL (0.0-0.7) Basophils # (Auto) 0.0 x10^3/uL (0.0-0.2) Objective Assessment Acute Resp failure - intubated Hypotension - on 5 levophed Pulm infiltrates - ARDS ? if transfusions could be playing into resp failure Anemia - on arrival s/p PRBCs - GI eval in process Leukocytosis - on steroids now GEO -stable COPD H/o Leg wounds - no recent abx per for wounds - last amox 6 weeks ago Influenza vaccine 09/17 -given Plan Plan of Care Ordered Resp viral panel/Legionella/Strep antigen/Mycoplasma 09/20 Restarted Azithromycin 09/20 for atypical Will add parvo with anemia although no rash or joint pains. Check ANCA/Sputum cult/Silver stain (although AF and little risk factors for PJP)) Check proc/Lactic/LDH Cont Zosyn/Vanc for now Bronch would be helpful when possible F/u labs and cults May need additional tests based on above results D/w Thank you 35 mins # [id number] LUL GRAVES MD Sep 20, 2017 07:46
[2017-09-20] MEDS: BUDESONIDE 0.5 MG/2 ML NEBU. NEB SCH ×2 (08:01→20:36)
--- NOTE | 2017-09-20 08:17 | RAD ---
Procedure: Ultrasound-guided placement of right internal jugular central venous [id number]/16/2017 8:12 AM Clinical Indication: multiple infusion Discussion: The risks and benefits of the procedure were discussed the patient and/or their insurance verification representative. Informed consent was obtained. A timeout procedure was performed. All elements of maximal sterile barrier technique including the use of a cap, mask, sterile gown, sterile gloves, large sterile sheet, appropriate hand hygiene, and 2% chlorhexidine for cutaneous antisepsis (or acceptable alternative antiseptic per current guidelines) were followed for this procedure. The patient was prepped and draped in the usual sterile fashion. Ultrasound interrogation of the right neck revealed patency and compressibility of the right internal jugular vein. A 21-gauge micropuncture was then used to gain access to this vein under ultrasound guidance. A hard copy ultrasound image was recorded. A guidewire was advanced centrally. 5 Romansh sheath was placed. Over a wire following dilatation, a triple-lumen central venous catheter was advanced centrally. Catheter was found to flush and aspirate normally. Follow-up chest radiograph demonstrates tip at the cavoatrial junction. Catheter secured in place and a sterile dressing was applied. No immediate complications were identified. Impression: Successful ultrasound-guided placement of right internal jugular triple-lumen central venous catheter
--- NOTE | 2017-09-20 08:20 | RAD ---
Chest radiograph Single view 09/20/2017 Clinical indication: ARDS, respiratory failure Comparison: Chest 09/19/2017 Findings: Interval placement of a transesophageal gastric tube coursing below the level of the hemidiaphragms at the distal tip not visualized. Otherwise lines and tubes are in similar position. Heart size is stable. Unchanged diffuse mixed pulmonary opacities throughout the right lung with slight worsening of mixed opacities throughout the left lung. Impression: 1. Worsening of mixed pulmonary opacities throughout both lungs. 2. Interval placement of gastric tube.
[2017-09-20 08:31] LABS: HCO3 ABG 20 mmol/L (21-28); PCO2 ABG 35 mmHg (35-46); PH ABG 7.38 (7.35-7.45); PO2 ABG 82 mmHg (65-108); SAT O2 ABG 94 % (92-99)
[2017-09-20] MEDS: predniSONE 20 MG TABLET PO SCH (09:00)
[2017-09-20] MEDS: FUROSEMIDE 40 MG/4 ML VIAL. IVP SCH (09:00)
--- NOTE | 2017-09-20 09:28 | CONS ---
DATE OF CONSULTATION: 09/20/2017 PATIENT ROOM: ICU 8. REQUESTING PHYSICIAN: Dr. Conley. REASON FOR CONSULTATION: Questionable ARDS. HISTORY OF PRESENT ILLNESS: Currently, the patient is intubated, sedated, unable to provide any past medical history, history of present illness or review of systems. It is obtained mainly from the . This is a 62-year-old female who about 6 weeks ago, had some teeth extracted and was given some amoxicillin. Shortly after that, apparently she has become somewhat ill, easily fatigued. Over the last week or so, she become more short of air and had low grade fevers per her , but did not take any antimicrobials. She does have exposure to young grandkids ages 3 and 4 that are periodically ill, but she ended up presenting to [facility] on 09/17 secondary to increasing shortness of air. On arrival, she had a white count of 15.4, but a hemoglobin of 5. Creatinine was 1.5. She underwent a chest x-ray, which showed a moderate right perihilar infiltrates suggesting pneumonia versus unilateral pulmonary edema and probable moderate-sized left pleural effusion. She was given doses of azithromycin and Rocephin. She additionally received an influenza vaccine on the . She underwent a CT scan of her chest on the , showed mixed bilateral ground glass and interstitial pulmonary opacities and small to moderate sized bilateral pleural effusions. Yesterday, she developed worsening respiratory failure and has become intubated overnight. She required institution of Levophed and is currently on 5. Additionally, steroids were instituted yesterday. I was consulted yesterday and ordered a respiratory viral panel, Legionella and strep pneumo antigen, mycoplasma, reinstituted the azithromycin as vancomycin and Zosyn have been instituted. She has been afebrile. PAST MEDICAL HISTORY: Positive for hypertension, anemia, anxiety. Presumed COPD, although her states that she has never been diagnosed with this. She has had peripheral arterial disease, aneurysm, venous insufficiency. PAST SURGICAL HISTORY: Positive for dental extractions and lower extremity surgeries. The states she still has tonsils, gallbladder, appendix, liver and spleen. Denies any other joint surgery. REVIEW OF SYSTEMS: Otherwise negative except as mentioned above. ALLERGIES: No known drug allergies. SOCIAL HISTORY: She is . She has not traveled much. No TB or construction history. She does minimal gardening. No farming. She has two dogs. No birds. No cats. No immunosuppressive complications. Does have a history of smoking for over 50 years. 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 FAMILY HISTORY: Negative for any rheumatoid, lupus, cancers, autoimmune diseases. CURRENT MEDICATIONS: Include azithromycin, Levophed, vancomycin, Pulmicort, Lasix, Haldol, Solu-Medrol, Protonix and Zosyn. Other meds are available, have been reviewed in the chart. PHYSICAL EXAMINATION: VITAL SIGNS: She is afebrile, temperature 98.6, pulse 88, respirations 22, blood pressure 107/69, satting 96% on ventilator and blood pressure did drop into the low 80s/50s. CONSTITUTIONAL: She is intubated. She is sedated. HEENT: Pupils are reactive, questionable right greater than left. NECK: Supple, no JVD. LUNGS: Minimally coarse. HEART: S1, S2. ABDOMEN: Soft, nontender, nondistended, with positive bowel sounds. She has a Mayorga in place. EXTREMITIES: Without clubbing, cyanosis. She has well-healed scars. No gross wounds. She has a peripheral IV in central line without signs of any complications. LABORATORY DATA: White count 17.3, hemoglobin 7.9, platelets of 402. Neutrophils 95, lymphs are 3. Sed rate was 94, creatinine of 1.5. Glucose 104. Most recent lactic acid on the was 1.1. She had normal liver function study tests on arrival. LDH was 452 on arrival. Chest x-ray from the unchanged diffuse mixed pulmonary opacities. X-ray from is currently pending, but to my view, she still has persistent bilateral infiltrates, with left worse than the right. IMPRESSION: 1. Acute respiratory failure, now intubated. 2. Hypertension, currently on 5 of Levophed. 3. Pulmonary infiltrates and acute respiratory distress syndrome, questionable if transfusion could be playing into respiratory failure. 4. Anemia, started on arrival, status post packed red blood cells. GI eval and process. Dr. Celeste has seen her, and she is iron deficient. 5. Leukocytosis, on steroids. 6. Acute kidney injury, stable. 7. Chronic obstructive pulmonary disease. 8. History of leg wound, with no recent antibiotics per her for the wounds, past amoxicillin 6 weeks ago. 9. She did receive an influenza vaccine on 09/17. RECOMMENDATIONS: Again, I will order respiratory viral panel, Legionella and strep antigen mycoplasma on the . We will restart the azithromycin for typical coverage, and for now, we will add parvovirus given her anemia, though there is no rash on joints. Check ANCA, sputum culture, silver stain, although she is afebrile. Risk factors for PJP. Additionally, we will check procalcitonin and lactic acid, repeat her LDH. Continue vancomycin and Zosyn for now. Bronchoscopy would be helpful when possible. Follow up on labs and cultures. May need additional testing based on the above results. This was discussed with her . We spent 35 minutes of critical care time. Thank you for allowing me to participate in this patient's care. If you have any questions, please do not hesitate to contact me. If you have any questions, please do not hesitate to contact me. LUL GRAVES MD DR: NAYAN/tito JOB#: [id number] / [id number]
[2017-09-20] MEDS ORDERED: TPN PER PHARMACY MC PRN ×2 (10:00→11:00)
[2017-09-20] MEDS: PANTOPRAZOLE IV PUSH 40 MG VIAL. IVP SCH (10:04)
[2017-09-20 10:14] LABS: FIO2 ABG 60
[2017-09-20] MEDS ORDERED: FUROSEMIDE 20 MG/2 ML VIAL. IVP ONE (10:15)
--- NOTE | 2017-09-20 10:59 | PDOC ---
Renal-Progress Notes Vitals Vitals Vital Signs Date Time Temp Pulse Resp B/P (MAP) Pulse Ox O2 Delivery O2 Flow Rate FiO2 09/20/17 10:15 98 Ventilator 09/20/17 06:00 88 22 107/69 (82) 09/20/17 04:00 98.6 98.6 Weight Weight [ ] I.O. Intake and Output Intake and Output 09/20/17 07:00 Intake Total 1222.78 ml Output Total 1060 ml Balance 162.78 ml Intake Oral 25 ml IV Total 597.78 ml Blood Product 350 ml Blood Product IV Normal Saline Flush 250 ml Output Urine Total 860 ml Gastric Drainage Total 200 ml Labs Labs Laboratory Tests Test 09/19/17 12:06 09/19/17 12:35 09/20/17 06:15 09/20/17 08:23 O2 Saturation 97 % (92-99) 94 % (92-99) Arterial Blood pH 7.25 (7.35-7.45) 7.38 (7.35-7.45) Arterial Blood pCO2 at Patient Temp 46 mmHg (35-46) 35 mmHg (35-46) Arterial Blood pO2 at Patient Temp 106 mmHg (65-108) 82 mmHg (65-108) Arterial Blood HCO3 20 mmol/L (21-28) 20 mmol/L (21-28) Arterial Blood Base Excess -7 mmol/L (-3-3) -5 mmol/L (-3-3) FiO2 100 60 Influenza Type A Antigen Negative (NEGATIVE) Influenza Type B Antigen Negative (NEGATIVE) White Blood Count 17.3 x10^3/uL (4.0-11.0) Red Blood Count 3.35 x10^6/uL (3.50-5.40) Hemoglobin 7.9 g/dL (12.0-15.5) Hematocrit 25.7 % (36.0-47.0) Mean Corpuscular Volume 77 fL (79-100) Mean Corpuscular Hemoglobin 24 pg (25-35) Mean Corpuscular Hemoglobin Concent 31 g/dL (31-37) Red Cell Distribution Width 25.3 % (11.5-14.5) Platelet Count 402 x10^3/uL (140-400) Neutrophils (%) (Auto) 95 % (31-73) Lymphocytes (%) (Auto) 3 % (24-48) Monocytes (%) (Auto) 2 % (0-9) Eosinophils (%) (Auto) 0 % (0-3) Basophils (%) (Auto) 0 % (0-3) Neutrophils # (Auto) 16.4 x10^3uL (1.8-7.7) Lymphocytes # (Auto) 0.4 x10^3/uL (1.0-4.8) Monocytes # (Auto) 0.4 x10^3/uL (0.0-1.1) Eosinophils # (Auto) 0.0 x10^3/uL (0.0-0.7) Basophils # (Auto) 0.0 x10^3/uL (0.0-0.2) Sodium Level 147 mmol/L (136-145) Potassium Level 3.7 mmol/L (3.5-5.1) Chloride Level 109 mmol/L (98-107) Carbon Dioxide Level 21 mmol/L (21-32) Anion Gap 17 (6-14) Blood Urea Nitrogen 30 mg/dL (7-20) Creatinine 1.5 mg/dL (0.6-1.0) Estimated GFR (Cockcroft-Gault) 35.4 BUN/Creatinine Ratio 20 (6-20) Glucose Level 161 mg/dL (70-99) Calcium Level 9.1 mg/dL (8.5-10.1) Total Bilirubin 0.6 mg/dL (0.2-1.0) Aspartate Amino Transf (AST/SGOT) 25 U/L (15-37) Alanine Aminotransferase (ALT/SGPT) 12 U/L (14-59) Alkaline Phosphatase 82 U/L (46-116) Total Protein 6.3 g/dL (6.4-8.2) Albumin 2.2 g/dL (3.4-5.0) Albumin/Globulin Ratio 0.5 (1.0-1.7) Test 09/20/17 08:28 Lactic Acid Level 1.1 mmol/L (0.4-2.0) Lactate Dehydrogenase 436 U/L (81-234) Procalcitonin 1.26 ng/mL (0.00-0.10) Micro Micro Microbiology 09/17/17 Blood Culture - Preliminary, Resulted NO GROWTH AFTER 2 DAYS Review of Systems Constitutional: yes: unresponsive Musculoskeletal: Yes: muscle atrophy Physical Exam General Appearance: mild distress Skin: warm Respiratory: decreased breath sounds Heart: S1S2, RRR Abdomen: soft, bowel sounds present Genitourinary: bladder flat Extremities: pulses present, atrophy Neurology: other (SEDATED) Assessment Assessment IMP CHF PNEUMONIA RESP FAILURE ANEMIA PROB COPD GEO-ATN-CR OF 1.5 RESP FAILURE PLAN IV LASIX ANTIBIOTICS ANEMIA WORK UP TPN DILLON CARDOZA MD Sep 20, 2017 10:59
--- NOTE | 2017-09-20 11:05 | PDOC ---
PULMONARY PROGRESS NOTES Subjective AC mode, intubated 09/19 oxygen requirement improving Vitals Vital Signs Date Time Temp Pulse Resp B/P (MAP) Pulse Ox O2 Delivery O2 Flow Rate FiO2 09/20/17 10:15 98 Ventilator 09/20/17 06:00 88 22 107/69 (82) 09/20/17 04:00 98.6 98.6 Lungs: Other (crackles bases) Cardiovascular: S1 Abdomen: Soft Extremities: Other (1+EDEMA) Labs Laboratory Tests Test 09/18/17 12:10 09/18/17 13:45 09/18/17 16:41 09/18/17 17:35 Hemoglobin 7.7 g/dL (12.0-15.5) Hematocrit 25.5 % (36.0-47.0) Erythrocyte Sedimentation Rate 94 (0-25) Vitamin B12 Level 500 pg/mL (247-911) Serum Folate 9.79 ng/ml (3.2-20.0) Urine Color Yellow Urine Clarity Clear Urine pH 6.0 Urine Specific [place] 1.010 Urine Protein Negative mg/dL (NEG-TRACE) Urine Glucose (UA) Negative mg/dL (NEG) Urine Ketones (Stick) Negative mg/dL (NEG) Urine Blood Negative (NEG) Urine Nitrite Negative (NEG) Urine Bilirubin Negative (NEG) Urine Urobilinogen Dipstick 0.2 mg/dL (0.2 mg/dL) Urine Leukocyte Esterase Negative (NEG) Urine RBC 0 /HPF (0-2) Urine WBC Occ /HPF (0-4) Urine Squamous Epithelial Cells Occ /LPF Urine Bacteria Few /HPF (0-FEW) Nasal Screen MRSA (PCR) Negative (Negative) O2 Saturation 91 % (92-99) Arterial Blood pH 7.38 (7.35-7.45) Arterial Blood pCO2 at Patient Temp 32 mmHg (35-46) Arterial Blood pO2 at Patient Temp 68 mmHg (65-108) Arterial Blood HCO3 18 mmol/L (21-28) Arterial Blood Base Excess -6 mmol/L (-3-3) FiO2 60 Test 09/19/17 04:20 09/19/17 08:00 09/19/17 12:06 09/19/17 12:35 White Blood Count 17.6 x10^3/uL (4.0-11.0) Red Blood Count 2.92 x10^6/uL (3.50-5.40) Hemoglobin 6.6 g/dL (12.0-15.5) Hematocrit 21.7 % (36.0-47.0) Mean Corpuscular Volume 74 fL (79-100) Mean Corpuscular Hemoglobin 22 pg (25-35) Mean Corpuscular Hemoglobin Concent 30 g/dL (31-37) Red Cell Distribution Width 25.1 % (11.5-14.5) Platelet Count 361 x10^3/uL (140-400) Neutrophils (%) (Auto) 87 % (31-73) Lymphocytes (%) (Auto) 4 % (24-48) Monocytes (%) (Auto) 6 % (0-9) Eosinophils (%) (Auto) 2 % (0-3) Basophils (%) (Auto) 1 % (0-3) Neutrophils # (Auto) 15.2 x10^3uL (1.8-7.7) Lymphocytes # (Auto) 0.7 x10^3/uL (1.0-4.8) Monocytes # (Auto) 1.1 x10^3/uL (0.0-1.1) Eosinophils # (Auto) 0.4 x10^3/uL (0.0-0.7) Basophils # (Auto) 0.2 x10^3/uL (0.0-0.2) Segmented Neutrophils % 86 % (35-66) Band Neutrophils % 2 % (0-9) Lymphocytes % 8 % (24-48) Monocytes % 3 % (0-10) Basophils % 1 % (0-3) Platelet Estimate Adequate (ADEQUATE) Large Platelets Occ Hypochromasia Present Anisocytosis Present Microcytosis Present Sodium Level 143 mmol/L (136-145) Potassium Level 4.0 mmol/L (3.5-5.1) Chloride Level 109 mmol/L (98-107) Carbon Dioxide Level 21 mmol/L (21-32) Anion Gap 13 (6-14) Blood Urea Nitrogen 22 mg/dL (7-20) Creatinine 1.5 mg/dL (0.6-1.0) Estimated GFR (Cockcroft-Gault) 35.4 Glucose Level 104 mg/dL (70-99) Calcium Level 8.7 mg/dL (8.5-10.1) Magnesium Level 1.9 mg/dL (1.8-2.4) O2 Saturation 93 % (92-99) 97 % (92-99) Arterial Blood pH 7.37 (7.35-7.45) 7.25 (7.35-7.45) Arterial Blood pCO2 at Patient Temp 33 mmHg (35-46) 46 mmHg (35-46) Arterial Blood pO2 at Patient Temp 73 mmHg (65-108) 106 mmHg (65-108) Arterial Blood HCO3 19 mmol/L (21-28) 20 mmol/L (21-28) Arterial Blood Base Excess -6 mmol/L (-3-3) -7 mmol/L (-3-3) FiO2 60 100 Influenza Type A Antigen Negative (NEGATIVE) Influenza Type B Antigen Negative (NEGATIVE) Test 09/20/17 06:15 09/20/17 08:23 09/20/17 08:28 White Blood Count 17.3 x10^3/uL (4.0-11.0) Red Blood Count 3.35 x10^6/uL (3.50-5.40) Hemoglobin 7.9 g/dL (12.0-15.5) Hematocrit 25.7 % (36.0-47.0) Mean Corpuscular Volume 77 fL (79-100) Mean Corpuscular Hemoglobin 24 pg (25-35) Mean Corpuscular Hemoglobin Concent 31 g/dL (31-37) Red Cell Distribution Width 25.3 % (11.5-14.5) Platelet Count 402 x10^3/uL (140-400) Neutrophils (%) (Auto) 95 % (31-73) Lymphocytes (%) (Auto) 3 % (24-48) Monocytes (%) (Auto) 2 % (0-9) Eosinophils (%) (Auto) 0 % (0-3) Basophils (%) (Auto) 0 % (0-3) Neutrophils # (Auto) 16.4 x10^3uL (1.8-7.7) Lymphocytes # (Auto) 0.4 x10^3/uL (1.0-4.8) Monocytes # (Auto) 0.4 x10^3/uL (0.0-1.1) Eosinophils # (Auto) 0.0 x10^3/uL (0.0-0.7) Basophils # (Auto) 0.0 x10^3/uL (0.0-0.2) Sodium Level 147 mmol/L (136-145) Potassium Level 3.7 mmol/L (3.5-5.1) Chloride Level 109 mmol/L (98-107) Carbon Dioxide Level 21 mmol/L (21-32) Anion Gap 17 (6-14) Blood Urea Nitrogen 30 mg/dL (7-20) Creatinine 1.5 mg/dL (0.6-1.0) Estimated GFR (Cockcroft-Gault) 35.4 BUN/Creatinine Ratio 20 (6-20) Glucose Level 161 mg/dL (70-99) Calcium Level 9.1 mg/dL (8.5-10.1) Total Bilirubin 0.6 mg/dL (0.2-1.0) Aspartate Amino Transf (AST/SGOT) 25 U/L (15-37) Alanine Aminotransferase (ALT/SGPT) 12 U/L (14-59) Alkaline Phosphatase 82 U/L (46-116) Total Protein 6.3 g/dL (6.4-8.2) Albumin 2.2 g/dL (3.4-5.0) Albumin/Globulin Ratio 0.5 (1.0-1.7) O2 Saturation 94 % (92-99) Arterial Blood pH 7.38 (7.35-7.45) Arterial Blood pCO2 at Patient Temp 35 mmHg (35-46) Arterial Blood pO2 at Patient Temp 82 mmHg (65-108) Arterial Blood HCO3 20 mmol/L (21-28) Arterial Blood Base Excess -5 mmol/L (-3-3) FiO2 60 Lactic Acid Level 1.1 mmol/L (0.4-2.0) Lactate Dehydrogenase 436 U/L (81-234) Procalcitonin 1.26 ng/mL (0.00-0.10) Laboratory Tests Test 09/19/17 12:06 09/19/17 12:35 09/20/17 06:15 09/20/17 08:23 O2 Saturation 97 % (92-99) 94 % (92-99) Arterial Blood pH 7.25 (7.35-7.45) 7.38 (7.35-7.45) Arterial Blood pCO2 at Patient Temp 46 mmHg (35-46) 35 mmHg (35-46) Arterial Blood pO2 at Patient Temp 106 mmHg (65-108) 82 mmHg (65-108) Arterial Blood HCO3 20 mmol/L (21-28) 20 mmol/L (21-28) Arterial Blood Base Excess -7 mmol/L (-3-3) -5 mmol/L (-3-3) FiO2 100 60 Influenza Type A Antigen Negative (NEGATIVE) Influenza Type B Antigen Negative (NEGATIVE) White Blood Count 17.3 x10^3/uL (4.0-11.0) Red Blood Count 3.35 x10^6/uL (3.50-5.40) Hemoglobin 7.9 g/dL (12.0-15.5) Hematocrit 25.7 % (36.0-47.0) Mean Corpuscular Volume 77 fL (79-100) Mean Corpuscular Hemoglobin 24 pg (25-35) Mean Corpuscular Hemoglobin Concent 31 g/dL (31-37) Red Cell Distribution Width 25.3 % (11.5-14.5) Platelet Count 402 x10^3/uL (140-400) Neutrophils (%) (Auto) 95 % (31-73) Lymphocytes (%) (Auto) 3 % (24-48) Monocytes (%) (Auto) 2 % (0-9) Eosinophils (%) (Auto) 0 % (0-3) Basophils (%) (Auto) 0 % (0-3) Neutrophils # (Auto) 16.4 x10^3uL (1.8-7.7) Lymphocytes # (Auto) 0.4 x10^3/uL (1.0-4.8) Monocytes # (Auto) 0.4 x10^3/uL (0.0-1.1) Eosinophils # (Auto) 0.0 x10^3/uL (0.0-0.7) Basophils # (Auto) 0.0 x10^3/uL (0.0-0.2) Sodium Level 147 mmol/L (136-145) Potassium Level 3.7 mmol/L (3.5-5.1) Chloride Level 109 mmol/L (98-107) Carbon Dioxide Level 21 mmol/L (21-32) Anion Gap 17 (6-14) Blood Urea Nitrogen 30 mg/dL (7-20) Creatinine 1.5 mg/dL (0.6-1.0) Estimated GFR (Cockcroft-Gault) 35.4 BUN/Creatinine Ratio 20 (6-20) Glucose Level 161 mg/dL (70-99) Calcium Level 9.1 mg/dL (8.5-10.1) Total Bilirubin 0.6 mg/dL (0.2-1.0) Aspartate Amino Transf (AST/SGOT) 25 U/L (15-37) Alanine Aminotransferase (ALT/SGPT) 12 U/L (14-59) Alkaline Phosphatase 82 U/L (46-116) Total Protein 6.3 g/dL (6.4-8.2) Albumin 2.2 g/dL (3.4-5.0) Albumin/Globulin Ratio 0.5 (1.0-1.7) Test 09/20/17 08:28 Lactic Acid Level 1.1 mmol/L (0.4-2.0) Lactate Dehydrogenase 436 U/L (81-234) Procalcitonin 1.26 ng/mL (0.00-0.10) Medications Active Scripts Medications Dose Route/Sig Max Daily Dose Days Date Category Gabapentin 300 Mg Capsule 300 Mg PO TID 09/18/17 Reported Cymbalta (Duloxetine Hcl) 60 Mg Capsule.dr 1 Cap PO BID 09/18/17 Reported Hydrochlorothiazide Tablet (Hydrochlorothiazide) 25 Mg Tablet 1 Tab PO DAILY 09/17/17 Reported Xanax (Alprazolam) 1 Mg Tablet 1 Tab PO TID PRN 09/17/17 Reported Comments CXR 09/20 mild improvement in infiltrates on right side Impression . 1. Acute hypoxic respiratory failure in a patient who is a smoker and has a significant anemia with a hemoglobin of 5.0 on admission and also has extensive interstitial infiltrates, more on the right than on the left and a small basal pleural effusion. Differential diagnosis would include the following: A. Acute Interstitial atypical pneumonia ?diffuse viral pneumonia/ ARDS/? diffuse vasculitis (high sed rate) /?alveolar proteinosis B. Anemia without any obvious blood loss contributing to patient's respiratory failure. C. Anemic heart failure, although clinically less likely. D. Unlikely transfusion related acute lung injury as the symptoms began before the transfusion. E. ? diffuse vasculitis/ high sed rate/?alveolar proteinosis 2. Anemia, microcytic ,needs further workup. Possibility of myelodysplastic syndrome should be a consideration; GI follow up to rule out any gastrointestinal source. ? vasculitis 3. She has had long history of tobacco use, suspect underlying chronic obstructive pulmonary disease. 4. Increase azotemia, steroid effect vs volume depletion( now on low dose pressor) Plan . 1. Clinically stable since yesterday 2. AC mode/ high PEEP. Continue to titrate oxygen to keep saturations 92% to 94 %, now on 55%FIO2 3. Continue broad-spectrum antibiotics. Influenza screen neg 4. CT chest with diffuse parenchymal GG infiltrates, small effusions. ? etiology ,Consider Bronch. agrees 5. Reduce diuretics at present. effusions could be from low oncotic pressure. normal EF, moderate AI 6. Hematology following for workup of anemia. 7. GI for GI workup of anemia. 8. high dose steroids/ high sed rate 9. TX 1 unit PRBC today 10. Discussed with RN and .Pt is critically ill cct 35 min family requested transfer to yesterday as most of her doctors are there. i did explain her that at present she is critically ill and transfer will be high risk. Once oxygen requirement improves and accepts her, she can be transfer per family request.All questions answered JORGE LEDESMA MD Sep 20, 2017 11:05
--- NOTE | 2017-09-20 11:14 | PDOC ---
Objective: Objective: D/w RN - desats when moved too much, has OG, some brownish output, plans for another transfusion, start tube feeds. Family (sister) wants to transfer to . Vital Signs: Vital Signs Date Time Temp Pulse Resp B/P (MAP) Pulse Ox O2 Delivery O2 Flow Rate FiO2 09/20/17 10:15 98 Ventilator 09/20/17 06:00 88 22 107/69 (82) 09/20/17 04:00 98.6 98.6 Labs: Laboratory Tests Test 09/19/17 12:06 09/19/17 12:35 09/20/17 06:15 09/20/17 08:23 O2 Saturation 97 % 94 % Arterial Blood pH 7.25 7.38 Arterial Blood pCO2 at Patient Temp 46 mmHg 35 mmHg Arterial Blood pO2 at Patient Temp 106 mmHg 82 mmHg Arterial Blood HCO3 20 mmol/L 20 mmol/L Arterial Blood Base Excess -7 mmol/L -5 mmol/L FiO2 100 60 Influenza Type A Antigen Negative Influenza Type B Antigen Negative White Blood Count 17.3 x10^3/uL Red Blood Count 3.35 x10^6/uL Hemoglobin 7.9 g/dL Hematocrit 25.7 % Mean Corpuscular Volume 77 fL Mean Corpuscular Hemoglobin 24 pg Mean Corpuscular Hemoglobin Concent 31 g/dL Red Cell Distribution Width 25.3 % Platelet Count 402 x10^3/uL Neutrophils (%) (Auto) 95 % Lymphocytes (%) (Auto) 3 % Monocytes (%) (Auto) 2 % Eosinophils (%) (Auto) 0 % Basophils (%) (Auto) 0 % Neutrophils # (Auto) 16.4 x10^3uL Lymphocytes # (Auto) 0.4 x10^3/uL Monocytes # (Auto) 0.4 x10^3/uL Eosinophils # (Auto) 0.0 x10^3/uL Basophils # (Auto) 0.0 x10^3/uL Sodium Level 147 mmol/L Potassium Level 3.7 mmol/L Chloride Level 109 mmol/L Carbon Dioxide Level 21 mmol/L Anion Gap 17 Blood Urea Nitrogen 30 mg/dL Creatinine 1.5 mg/dL Estimated GFR (Cockcroft-Gault) 35.4 BUN/Creatinine Ratio 20 Glucose Level 161 mg/dL Calcium Level 9.1 mg/dL Total Bilirubin 0.6 mg/dL Aspartate Amino Transf (AST/SGOT) 25 U/L Alanine Aminotransferase (ALT/SGPT) 12 U/L Alkaline Phosphatase 82 U/L Total Protein 6.3 g/dL Albumin 2.2 g/dL Albumin/Globulin Ratio 0.5 Test 09/20/17 08:28 Lactic Acid Level 1.1 mmol/L Lactate Dehydrogenase 436 U/L Procalcitonin 1.26 ng/mL Imaging: CXR Impression: 1. Worsening of mixed pulmonary opacities throughout both lungs. 2. Interval placement of gastric tube. PE: GEN: intubated LUNGS: vent HEART: RRR ABD: NABS, S/ND/NT NEURO/PSYCH: sedated A/P: STUART -Hgb improved w/ transfusion, another planned -received IV iron -colonoscopy last year w/ polyp, remote h/o EGD, daily NSAID use -on IV PPI, PPN, OG w/ plans for tube feeds Resp failure, pneumonia, ?ARDS Leukocytosis - stable -- Continue same per GI. SHAHLA FISHER Sep 20, 2017 11:14
[2017-09-20] MEDS ORDERED: VECURONIUM BOLUS 10 MG VIAL. IV ONE (11:15)
--- NOTE | 2017-09-20 11:21 | PDOC ---
PROGRESS NOTES Subjective Subjective c/c - f/u of Iron deficiency anemia. ROS - on vent Objective Objective Vital Signs Date Time Temp Pulse Resp B/P (MAP) Pulse Ox O2 Delivery O2 Flow Rate FiO2 09/20/17 10:15 98 Ventilator 09/20/17 06:00 88 22 107/69 (82) 09/20/17 04:00 98.6 98.6 09/19/17 04:09 60.0 Intake and Output 09/20/17 07:00 Intake Total 1222.78 ml Output Total 1060 ml Balance 162.78 ml Intake Oral 25 ml IV Total 597.78 ml Blood Product 350 ml Blood Product IV Normal Saline Flush 250 ml Output Urine Total 860 ml Gastric Drainage Total 200 ml Physical Exam General: No acute distress Lungs: Other (on vent) Psych/Mental Status: Other (on vent) Assessment Assessment Problems Medical Problems: (1) Dyspnea Status: Acute (2) Hypoalbuminemia Status: Acute (3) Metabolic acidosis Status: Acute (4) Pneumonia Status: Acute IMPRESSION AND PLAN: 1. Iron deficiency anemia. There is no evidence of blood loss. I agree to proceed with Gastroenterology consultation for further workup. The patient declines esophagogastroduodenoscopy and colonoscopy. Agree to pursue with iron supplementation. She received Venofer 500 mg intravenous on 09/18/2017. I will continue to monitor hemoglobin and transfuse as needed. Hemoglobin improved to 7.7 after transfusion. Then worse at 6.6 on 09/19/17. s/p 1 unit 09/19/17. Hb 7.9 on 09/20/17 2. Leukocytosis, reactive from underlying pneumonia. Management per Pulmonary Medicine. 3. Pneumonia/dyspnea - I appreciate consultation by Dr. Aadn Thurman. Intubated 09/19/17. Comment Review of Relevant I have reviewed the following items tha (where applicable) has been applied. Labs Laboratory Tests Test 09/18/17 12:10 09/18/17 13:45 09/18/17 16:41 09/18/17 17:35 Hemoglobin 7.7 g/dL (12.0-15.5) Hematocrit 25.5 % (36.0-47.0) Erythrocyte Sedimentation Rate 94 (0-25) Vitamin B12 Level 500 pg/mL (247-911) Serum Folate 9.79 ng/ml (3.2-20.0) Urine Color Yellow Urine Clarity Clear Urine pH 6.0 Urine Specific [place] 1.010 Urine Protein Negative mg/dL (NEG-TRACE) Urine Glucose (UA) Negative mg/dL (NEG) Urine Ketones (Stick) Negative mg/dL (NEG) Urine Blood Negative (NEG) Urine Nitrite Negative (NEG) Urine Bilirubin Negative (NEG) Urine Urobilinogen Dipstick 0.2 mg/dL (0.2 mg/dL) Urine Leukocyte Esterase Negative (NEG) Urine RBC 0 /HPF (0-2) Urine WBC Occ /HPF (0-4) Urine Squamous Epithelial Cells Occ /LPF Urine Bacteria Few /HPF (0-FEW) Nasal Screen MRSA (PCR) Negative (Negative) O2 Saturation 91 % (92-99) Arterial Blood pH 7.38 (7.35-7.45) Arterial Blood pCO2 at Patient Temp 32 mmHg (35-46) Arterial Blood pO2 at Patient Temp 68 mmHg (65-108) Arterial Blood HCO3 18 mmol/L (21-28) Arterial Blood Base Excess -6 mmol/L (-3-3) FiO2 60 Test 09/19/17 04:20 09/19/17 08:00 09/19/17 12:06 09/19/17 12:35 White Blood Count 17.6 x10^3/uL (4.0-11.0) Red Blood Count 2.92 x10^6/uL (3.50-5.40) Hemoglobin 6.6 g/dL (12.0-15.5) Hematocrit 21.7 % (36.0-47.0) Mean Corpuscular Volume 74 fL (79-100) Mean Corpuscular Hemoglobin 22 pg (25-35) Mean Corpuscular Hemoglobin Concent 30 g/dL (31-37) Red Cell Distribution Width 25.1 % (11.5-14.5) Platelet Count 361 x10^3/uL (140-400) Neutrophils (%) (Auto) 87 % (31-73) Lymphocytes (%) (Auto) 4 % (24-48) Monocytes (%) (Auto) 6 % (0-9) Eosinophils (%) (Auto) 2 % (0-3) Basophils (%) (Auto) 1 % (0-3) Neutrophils # (Auto) 15.2 x10^3uL (1.8-7.7) Lymphocytes # (Auto) 0.7 x10^3/uL (1.0-4.8) Monocytes # (Auto) 1.1 x10^3/uL (0.0-1.1) Eosinophils # (Auto) 0.4 x10^3/uL (0.0-0.7) Basophils # (Auto) 0.2 x10^3/uL (0.0-0.2) Segmented Neutrophils % 86 % (35-66) Band Neutrophils % 2 % (0-9) Lymphocytes % 8 % (24-48) Monocytes % 3 % (0-10) Basophils % 1 % (0-3) Platelet Estimate Adequate (ADEQUATE) Large Platelets Occ Hypochromasia Present Anisocytosis Present Microcytosis Present Sodium Level 143 mmol/L (136-145) Potassium Level 4.0 mmol/L (3.5-5.1) Chloride Level 109 mmol/L (98-107) Carbon Dioxide Level 21 mmol/L (21-32) Anion Gap 13 (6-14) Blood Urea Nitrogen 22 mg/dL (7-20) Creatinine 1.5 mg/dL (0.6-1.0) Estimated GFR (Cockcroft-Gault) 35.4 Glucose Level 104 mg/dL (70-99) Calcium Level 8.7 mg/dL (8.5-10.1) Magnesium Level 1.9 mg/dL (1.8-2.4) O2 Saturation 93 % (92-99) 97 % (92-99) Arterial Blood pH 7.37 (7.35-7.45) 7.25 (7.35-7.45) Arterial Blood pCO2 at Patient Temp 33 mmHg (35-46) 46 mmHg (35-46) Arterial Blood pO2 at Patient Temp 73 mmHg (65-108) 106 mmHg (65-108) Arterial Blood HCO3 19 mmol/L (21-28) 20 mmol/L (21-28) Arterial Blood Base Excess -6 mmol/L (-3-3) -7 mmol/L (-3-3) FiO2 60 100 Influenza Type A Antigen Negative (NEGATIVE) Influenza Type B Antigen Negative (NEGATIVE) Test 09/20/17 06:15 09/20/17 08:23 09/20/17 08:28 White Blood Count 17.3 x10^3/uL (4.0-11.0) Red Blood Count 3.35 x10^6/uL (3.50-5.40) Hemoglobin 7.9 g/dL (12.0-15.5) Hematocrit 25.7 % (36.0-47.0) Mean Corpuscular Volume 77 fL (79-100) Mean Corpuscular Hemoglobin 24 pg (25-35) Mean Corpuscular Hemoglobin Concent 31 g/dL (31-37) Red Cell Distribution Width 25.3 % (11.5-14.5) Platelet Count 402 x10^3/uL (140-400) Neutrophils (%) (Auto) 95 % (31-73) Lymphocytes (%) (Auto) 3 % (24-48) Monocytes (%) (Auto) 2 % (0-9) Eosinophils (%) (Auto) 0 % (0-3) Basophils (%) (Auto) 0 % (0-3) Neutrophils # (Auto) 16.4 x10^3uL (1.8-7.7) Lymphocytes # (Auto) 0.4 x10^3/uL (1.0-4.8) Monocytes # (Auto) 0.4 x10^3/uL (0.0-1.1) Eosinophils # (Auto) 0.0 x10^3/uL (0.0-0.7) Basophils # (Auto) 0.0 x10^3/uL (0.0-0.2) Sodium Level 147 mmol/L (136-145) Potassium Level 3.7 mmol/L (3.5-5.1) Chloride Level 109 mmol/L (98-107) Carbon Dioxide Level 21 mmol/L (21-32) Anion Gap 17 (6-14) Blood Urea Nitrogen 30 mg/dL (7-20) Creatinine 1.5 mg/dL (0.6-1.0) Estimated GFR (Cockcroft-Gault) 35.4 BUN/Creatinine Ratio 20 (6-20) Glucose Level 161 mg/dL (70-99) Calcium Level 9.1 mg/dL (8.5-10.1) Total Bilirubin 0.6 mg/dL (0.2-1.0) Aspartate Amino Transf (AST/SGOT) 25 U/L (15-37) Alanine Aminotransferase (ALT/SGPT) 12 U/L (14-59) Alkaline Phosphatase 82 U/L (46-116) Total Protein 6.3 g/dL (6.4-8.2) Albumin 2.2 g/dL (3.4-5.0) Albumin/Globulin Ratio 0.5 (1.0-1.7) O2 Saturation 94 % (92-99) Arterial Blood pH 7.38 (7.35-7.45) Arterial Blood pCO2 at Patient Temp 35 mmHg (35-46) Arterial Blood pO2 at Patient Temp 82 mmHg (65-108) Arterial Blood HCO3 20 mmol/L (21-28) Arterial Blood Base Excess -5 mmol/L (-3-3) FiO2 60 Lactic Acid Level 1.1 mmol/L (0.4-2.0) Lactate Dehydrogenase 436 U/L (81-234) Procalcitonin 1.26 ng/mL (0.00-0.10) Laboratory Tests Test 09/19/17 12:06 09/19/17 12:35 09/20/17 06:15 09/20/17 08:23 O2 Saturation 97 % (92-99) 94 % (92-99) Arterial Blood pH 7.25 (7.35-7.45) 7.38 (7.35-7.45) Arterial Blood pCO2 at Patient Temp 46 mmHg (35-46) 35 mmHg (35-46) Arterial Blood pO2 at Patient Temp 106 mmHg (65-108) 82 mmHg (65-108) Arterial Blood HCO3 20 mmol/L (21-28) 20 mmol/L (21-28) Arterial Blood Base Excess -7 mmol/L (-3-3) -5 mmol/L (-3-3) FiO2 100 60 Influenza Type A Antigen Negative (NEGATIVE) Influenza Type B Antigen Negative (NEGATIVE) White Blood Count 17.3 x10^3/uL (4.0-11.0) Red Blood Count 3.35 x10^6/uL (3.50-5.40) Hemoglobin 7.9 g/dL (12.0-15.5) Hematocrit 25.7 % (36.0-47.0) Mean Corpuscular Volume 77 fL (79-100) Mean Corpuscular Hemoglobin 24 pg (25-35) Mean Corpuscular Hemoglobin Concent 31 g/dL (31-37) Red Cell Distribution Width 25.3 % (11.5-14.5) Platelet Count 402 x10^3/uL (140-400) Neutrophils (%) (Auto) 95 % (31-73) Lymphocytes (%) (Auto) 3 % (24-48) Monocytes (%) (Auto) 2 % (0-9) Eosinophils (%) (Auto) 0 % (0-3) Basophils (%) (Auto) 0 % (0-3) Neutrophils # (Auto) 16.4 x10^3uL (1.8-7.7) Lymphocytes # (Auto) 0.4 x10^3/uL (1.0-4.8) Monocytes # (Auto) 0.4 x10^3/uL (0.0-1.1) Eosinophils # (Auto) 0.0 x10^3/uL (0.0-0.7) Basophils # (Auto) 0.0 x10^3/uL (0.0-0.2) Sodium Level 147 mmol/L (136-145) Potassium Level 3.7 mmol/L (3.5-5.1) Chloride Level 109 mmol/L (98-107) Carbon Dioxide Level 21 mmol/L (21-32) Anion Gap 17 (6-14) Blood Urea Nitrogen 30 mg/dL (7-20) Creatinine 1.5 mg/dL (0.6-1.0) Estimated GFR (Cockcroft-Gault) 35.4 BUN/Creatinine Ratio 20 (6-20) Glucose Level 161 mg/dL (70-99) Calcium Level 9.1 mg/dL (8.5-10.1) Total Bilirubin 0.6 mg/dL (0.2-1.0) Aspartate Amino Transf (AST/SGOT) 25 U/L (15-37) Alanine Aminotransferase (ALT/SGPT) 12 U/L (14-59) Alkaline Phosphatase 82 U/L (46-116) Total Protein 6.3 g/dL (6.4-8.2) Albumin 2.2 g/dL (3.4-5.0) Albumin/Globulin Ratio 0.5 (1.0-1.7) Test 09/20/17 08:28 Lactic Acid Level 1.1 mmol/L (0.4-2.0) Lactate Dehydrogenase 436 U/L (81-234) Procalcitonin 1.26 ng/mL (0.00-0.10) Microbiology 09/17/17 Blood Culture - Preliminary, Resulted NO GROWTH AFTER 2 DAYS Medications Current Medications Sodium Chloride 1,000 ml @ 125 mls/hr 1X ONCE IV Last administered on 15:54; Start 09/17/17 at 15:15; Stop 09/17/17 at 23:14; Status DC Ondansetron HCl (Zofran) 4 mg PRN Q8HRS PRN IV NAUSEA/VOMITING; Start at 16:30; Stop 09/18/17 at 16:29; Status DC Ceftriaxone Sodium 50 ml @ 0 mls/hr 1X ONCE IV Last administered on 17:33; Start 09/17/17 at 16:45; Stop 09/17/17 at 16:46; Status DC Azithromycin 250 ml @ 250 mls/hr 1X ONCE IV Last administered on 09/17/17 22:38; Start 09/17/17 at 16:30; Stop 09/17/17 at 17:29; Status DC Albuterol/ Ipratropium (Duoneb) 3 ml 1X ONCE NEB Last administered on 17:00; Start 09/17/17 at 16:45; Stop 09/17/17 at 16:46; Status DC Potassium Chloride (Klor-Con) 40 meq 1X ONCE PO Last administered on 16:57; Start 09/17/17 at 16:45; Stop 09/17/17 at 16:46; Status DC Azithromycin (Zithromax) 250 mg DAILY PO Last administered on 09/18/17 10:25 ; Start 09/18/17 at 09:00; Stop 09/19/17 at 10:30; Status DC Ceftriaxone Sodium 1 gm/ Dextrose 50 ml @ 100 mls/hr Q24H IV ; Start 09/17/17 at 17:15; Status UNV Albuterol/ Ipratropium (Duoneb) 3 ml Q4HRS NEB Last administered on 09/20/17 08:00; Start 09/17/17 at 20:00 Ceftriaxone Sodium (Rocephin) 1 gm Q24H IVP Last administered on 09/18/17 17: 55; Start 09/18/17 at 16:00; Stop 09/19/17 at 10:30; Status DC Guaifenesin (Robitussin Dm) 10 ml PRN Q6HRS PRN PO COUGH; Start 09/17/17 at 17 :15 Sodium Chloride 1,000 ml @ 125 mls/hr 1X ONCE IV Last administered on 17:45; Start 09/17/17 at 17:15; Stop 09/17/17 at 22:12; Status DC Info (Do NOT chart on this placeholder) 1 each 1X ONCE MC ; Start 09/17/17 at 19:00; Stop 09/17/17 at 19:01; Status UNV Influenza Virus Vaccine Quadrival (Fluarix Quad [id number] Syringe) 0.5 ml ONCE ONCE VAX IM ; Start 09/17/17 at 21:00; Stop 09/17/17 at 21:01; Status DC Sodium Chloride 1,000 ml @ 130 mls/hr 1X ONCE IV Last administered on 22:31; Start 09/17/17 at 22:30; Stop 09/18/17 at 06:11; Status DC Sodium Bicarbonate 50 meq 1X ONCE IV Last administered on 09/17/17 22:31; Start 09/17/17 at 22:30; Stop 09/17/17 at 22:31; Status DC Alprazolam (Xanax) 1 mg PRN TID PRN PO ANXIETY Last administered on 09/19/17 02:19; Start 09/17/17 at 22:30 Furosemide (Lasix) 20 mg 1X ONCE IVP Last administered on 09/18/17 06:24; Start 09/18/17 at 06:30; Stop 09/18/17 at 06:31; Status DC Potassium Chloride (Klor-Con) 40 meq 1X ONCE PO Last administered on 10:25; Start 09/18/17 at 09:00; Stop 09/18/17 at 09:01; Status DC Iron Sucrose 500 mg/Sodium Chloride 275 ml @ 78.571 mls/ hr 1X ONCE IV Last administered on 09/18/17 10:24; Start 09/18/17 at 09:00; Stop 09/18/17 at 12 :29; Status DC Furosemide (Lasix) 20 mg 1X ONCE IVP Last administered on 09/18/17 10:30; Start 09/18/17 at 10:00; Stop 09/18/17 at 10:22; Status DC Pantoprazole Sodium (Protonix) 40 mg DAILYAC PO Last administered on 10:47; Start 09/18/17 at 11:00; Stop 09/19/17 at 13:41; Status DC Furosemide (Lasix) 20 mg 1X ONCE IVP Last administered on 09/18/17 10:47; Start 09/18/17 at 10:45; Stop 09/18/17 at 10:46; Status DC Potassium Chloride (Klor-Con) 40 meq 1X ONCE PO ; Start 09/18/17 at 11:45; Stop 09/18/17 at 11:46; Status DC Oxycodone/ Acetaminophen (Percocet 5/325) 1 tab PRN Q6HRS PRN PO PAIN Last administered on 09/18/17 13:23; Start 09/18/17 at 12:15 Lorazepam (Ativan) 1 mg PRN Q4HRS PRN IV ANXIETY / AGITATION Last administered on 09/18/17 12:25; Start 09/18/17 at 12:15; Stop 09/18/17 at 13:34; Status DC Fentanyl Citrate (Fentanyl 2ml Vial) 50 mcg PRN Q2HR PRN IV PAIN Last administered on 09/19/17 04:09; Start 09/18/17 at 12:15 Lorazepam (Ativan) 2 mg PRN Q4HRS PRN IV ANXIETY / AGITATION Last administered on 09/19/17 10:15; Start 09/18/17 at 13:30 Quetiapine Fumarate (SEROquel) 25 mg HS PO Last administered on 09/18/17 21: 03; Start 09/18/17 at 21:00; Stop 09/19/17 at 10:35; Status DC Haloperidol Lactate (Haldol) 5 mg PRN Q12HRS PRN IVP AGITATION; Start at 13:45 Lorazepam (Ativan) 1 mg PRN Q4HRS PRN IV ANXIETY / AGITATION; Start 09/19/17 at 10:15; Stop 09/19/17 at 10:18; Status DC Lorazepam (Ativan) 4 mg 1X ONCE IV ; Start 09/19/17 at 10:30; Stop 09/19/17 at 10:31; Status DC Vancomycin HCl (Vanco Per Pharmacy) 1 each PRN DAILY PRN MC SEE COMMENTS Last administered on 09/19/17 15:21; Start 09/19/17 at 10:30 Piperacillin Sod/ Tazobactam Sod (Zosyn Per Pharmacy) 1 each PRN DAILY PRN MC SEE COMMENTS; Start 09/19/17 at 10:30 Vancomycin HCl 2 gm/Dextrose 500 ml @ 250 mls/hr 1X ONCE IV Last administered on 09/19/17 14:53; Start 09/19/17 at 11:00; Stop 09/19/17 at 12 :59; Status DC Piperacillin Sod/ Tazobactam Sod (Zosyn) 3.375 gm Q6HRS IVP Last administered on 09/20/17 05:10; Start 09/19/17 at 11:00 Budesonide (Pulmicort) 0.5 mg RTBID NEB Last administered on 09/20/17 08:01; Start 09/19/17 at 20:00 Budesonide (Pulmicort) 0.5 mg 1X ONCE NEB Last administered on 09/19/17 12: 50; Start 09/19/17 at 10:45; Stop 09/19/17 at 10:46; Status DC Pantoprazole Sodium (Protonix Vial) 40 mg DAILYAC IVP Last administered on 10:04; Start 09/19/17 at 11:30 Furosemide (Lasix) 40 mg DAILY IVP ; Start 09/19/17 at 11:00 Methylprednisolone Sodium Succinate (SOLU-Medrol 125MG VIAL) 125 mg 1X ONCE IV Last administered on 09/19/17 13:23; Start 09/19/17 at 10:45; Stop at 10:46; Status DC Prednisone (Prednisone) 40 mg DAILY PO ; Start 09/19/17 at 11:00; Stop at 09:02; Status DC Methylprednisolone Sodium Succinate (SOLU-Medrol 125MG VIAL) 125 mg Q8HRS IV Last administered on 09/20/17 05:09; Start 09/19/17 at 14:00 Midazolam HCl 100 ml @ 0 mls/hr CONT PRN IV SEE I/O RECORD; Start 09/19/17 at 11:00; Stop 09/19/17 at 12:51; Status DC Midazolam HCl (Versed) 5 mg 1X ONCE IV ; Start 09/19/17 at 11:00; Stop at 11:01; Status DC Fentanyl Citrate (Fentanyl 2ml Vial) 50 mcg 1X ONCE IV ; Start 09/19/17 at 11: 00; Stop 09/19/17 at 11:01; Status DC Midazolam HCl 100 ml @ As Directed STK-MED ONCE IV ; Start 09/19/17 at 10:55; Stop 09/19/17 at 10:56; Status DC Midazolam HCl (Versed) 5 mg STK-MED ONCE .ROUTE ; Start 09/19/17 at 10:55; Stop 09/19/17 at 10:56; Status DC Propofol 100 ml @ As Directed STK-MED ONCE IV ; Start 09/19/17 at 10:59; Stop 09/19/17 at 11:00; Status DC Norepinephrine Bitartrate 250 ml @ As Directed STK-MED ONCE IV ; Start at 10:59; Stop 09/19/17 at 11:00; Status DC Furosemide (Lasix) 20 mg 1X ONCE IVP ; Start 09/19/17 at 11:15; Stop at 11:16; Status DC Vecuronium [place] (Norcuron Bolus) 10 mg STK-MED ONCE IV ; Start 09/19/17 at 11:21; Stop 09/19/17 at 11:22; Status DC Fentanyl Citrate 30 ml @ 0 mls/hr CONT PRN IV PROTOCOL Last administered on 10:15; Start 09/19/17 at 11:30 Vecuronium [place] (Norcuron Bolus) 6 mg 1X ONCE IV Last administered on 09/19 11:42; Start 09/19/17 at 11:30; Stop 09/19/17 at 11:39; Status DC Propofol 10 ml @ 0 mls/hr 1X ONCE IV Last administered on 09/19/17 11:30; Start 09/19/17 at 11:30; Stop 09/19/17 at 11:39; Status DC Midazolam HCl 100 ml @ 0 mls/hr CONT PRN IV SEE I/O RECORD Last administered on 09/20/17 01:45; Start 09/19/17 at 11:30 Norepinephrine Bitartrate 250 ml @ 0 mls/hr CONT PRN IV SEE I/O RECORD Last administered on 09/19/17 21:03; Start 09/19/17 at 11:30 Succinylcholine Chloride (Anectine) 100 mg 1X ONCE IV Last administered on 11:42; Start 09/19/17 at 11:30; Stop 09/19/17 at 11:39; Status DC Sodium Bicarbonate 50 meq 1X ONCE IV Last administered on 09/19/17 13:23; Start 09/19/17 at 12:45; Stop 09/19/17 at 12:46; Status DC Sodium Bicarbonate 50 meq 1X ONCE IV Last administered on 09/19/17 13:23; Start 09/19/17 at 12:45; Stop 09/19/17 at 12:46; Status DC Lidocaine/Sodium Bicarbonate (Buffered Lidocaine 1%) 20 ml STK-MED ONCE IJ ; Start 09/19/17 at 13:34; Stop 09/19/17 at 13:35; Status DC Vecuronium [place] (Norcuron Bolus) 10 mg 1X ONCE IV Last administered on 15:05; Start 09/19/17 at 14:00; Stop 09/19/17 at 14:02; Status DC Lidocaine/Sodium Bicarbonate (Buffered Lidocaine 1%) 3 ml 1X ONCE IJ ; Start 09/19/17 at 14:45; Stop 09/19/17 at 14:46; Status DC Vancomycin HCl 1.25 gm/Dextrose 250 ml @ 166.667 mls/hr Q24H IV ; Start at 15:00 Vancomycin HCl 1 each 1X ONCE MC ; Start 09/21/17 at 14:30; Stop 09/21/17 at 14:31 Azithromycin 500 mg/Sodium Chloride 250 ml @ 250 mls/hr Q24H IV Last administered on 09/19/17 17:21; Start 09/19/17 at 16:30 Norepinephrine Bitartrate (Levophed 8mg/ 250ml Premix Drip) 8 mg STK-MED ONCE IV ; Start 09/19/17 at 11:00; Stop 09/20/17 at 08:44; Status DC Midazolam HCl (Versed) 5 mg STK-MED ONCE .ROUTE ; Start 09/19/17 at 11:00; Stop 09/20/17 at 08:44; Status DC Amino Acids/ Glycerin/ Electrolytes 1,000 ml @ 80 mls/hr [id number] IV ; Start at 10:00 Info 1 each PRN DAILY PRN MC SEE COMMENTS; Start 09/20/17 at 10:00 Furosemide (Lasix) 20 mg 1X ONCE IVP Last administered on 09/20/17t 10:21; Start 09/20/17 at 10:15; Stop 09/20/17 at 10:18; Status DC Info 1 each PRN DAILY PRN MC SEE COMMENTS; Start 09/20/17 at 11:00; Status UNV Vecuronium [place] (Norcuron Bolus) 10 mg 1X ONCE IV ; Start 09/20/17 at 11:15 ; Stop 09/20/17 at 11:16; Status UNV Active Scripts Active Reported Gabapentin 300 Mg Capsule 300 Mg PO TID Cymbalta (Duloxetine Hcl) 60 Mg Capsule.dr 1 Cap PO BID Hydrochlorothiazide Tablet (Hydrochlorothiazide) 25 Mg Tablet 1 Tab PO DAILY Xanax (Alprazolam) 1 Mg Tablet 1 Tab PO TID PRN Vitals/I & O Vital Sign - Last 24 Hours 09/19/17 09/19/17 09/19/17 09/19/17 11:30 12:00 12:00 12:14 Temp 99.1 99.1 Pulse 124 Resp 20 20 B/P (MAP) 161/84 (109) Pulse Ox 100 98 98 O2 Delivery Ventilator Bi-pap Ventilator Ventilator 09/19/17 09/19/17 09/19/17 09/19/17 12:30 12:51 13:00 13:30 Pulse 106 98 96 Resp 25 22 22 B/P (MAP) 106/53 (70) 96/56 (69) 100/54 (69) Pulse Ox 94 100 100 99 O2 Delivery Ventilator Ventilator Ventilator Ventilator 09/19/17 09/19/17 09/19/17 09/19/17 14:00 14:30 14:55 15:00 Temp 99.6 99.5 99.6 99.5 Pulse 102 160 105 102 Resp 22 22 22 22 B/P (MAP) 96/55 (69) 107/67 (80) 96/62 91/52 (65) Pulse Ox 83 95 100 O2 Delivery Ventilator Ventilator Ventilator 09/19/17 09/19/17 09/19/17 09/19/17 15:30 16:00 16:00 16:13 Temp 98.6 98.6 Pulse 100 92 Resp 22 22 B/P (MAP) 92/58 (69) 85/53 (64) Pulse Ox 100 100 100 O2 Delivery Ventilator Bi-pap Ventilator Ventilator 09/19/17 09/19/17 09/19/17 09/19/17 16:30 17:00 17:30 17:45 Pulse 92 92 90 Resp 22 22 22 B/P (MAP) 86/52 (63) 88/55 (66) 93/57 (69) Pulse Ox 98 97 96 100 O2 Delivery Ventilator Ventilator Ventilator Ventilator 09/19/17 09/19/17 09/19/17 09/19/17 18:00 19:00 19:57 20:00 Temp 98.2 98.2 Pulse 94 89 86 Resp 22 22 22 B/P (MAP) 91/55 (67) 87/56 (66) 92/57 (69) Pulse Ox 96 97 96 96 O2 Delivery Ventilator Ventilator Ventilator Ventilator 09/19/17 09/19/17 09/19/17 09/19/17 20:00 20:45 21:00 21:01 Pulse 82 82 Resp 22 22 20 B/P (MAP) 85/54 (64) 108/63 (78) Pulse Ox 100 96 95 O2 Delivery Mechanical Ventilator Ventilator Ventilator Ventilator 09/19/17 09/19/17 09/19/17 09/19/17 21:15 21:30 21:45 22:00 Pulse 88 89 87 88 Resp 22 22 22 22 B/P (MAP) 111/62 (78) 110/67 (81) 108/62 (77) 105/62 (76) Pulse Ox 98 95 91 95 O2 Delivery Ventilator Ventilator Ventilator Ventilator 09/19/17 09/19/17 09/19/17 09/19/17 22:48 23:00 23:59 23:59 Temp 98.4 98.4 Pulse 92 92 Resp 22 22 B/P (MAP) 110/62 (78) 108/59 (75) Pulse Ox 99 96 97 O2 Delivery Ventilator Ventilator Mechanical Ventilator Ventilator 09/20/17 09/20/17 09/20/1717 00:55 01:00 02:01 02:36 Pulse 68 87 Resp 22 22 B/P (MAP) 109/64 (79) 107/60 (76) Pulse Ox 99 96 96 97 O2 Delivery Ventilator Ventilator Ventilator Ventilator 09/20/17 09/20/17 09/20/17 09/20/17 02:48 03:00 03:18 04:00 Pulse 90 Resp 22 22 B/P (MAP) 109/65 (80) Pulse Ox 100 100 96 O2 Delivery Ventilator Ventilator Ventilator Mechanical Ventilator 09/20/17 09/20/17 09/20/17 09/20/17 04:00 05:00 05:03 06:00 Temp 98.6 98.6 Pulse 88 86 88 Resp 22 22 B/P (MAP) 100/62 (75) 103/69 (80) 107/69 (82) Pulse Ox 95 96 98 96 O2 Delivery Ventilator Ventilator Ventilator Ventilator 09/20/17 09/20/17 09/20/17 08:02 09:08 10:15 Pulse Ox 97 99 98 O2 Delivery Ventilator Ventilator Ventilator Intake and Output 09/19/17 09/19/17 09/20/17 15:00 23:00 07:00 Intake Total 25 ml 970.78 ml 227 ml Output Total 195 ml 595 ml 270 ml Balance -170 ml 375.78 ml -43 ml ELLA ORTEGA MD Sep 20, 2017 11:21
[2017-09-20] MEDS ORDERED: EPINEPHrine SYRINGE 1 MG/10 ML SYRINGE ONE ×2 (11:47→12:00)
[2017-09-20] MEDS ORDERED: ATROPINE 0.5 MG/5 ML DISP.SYRIN. ONE ×2 (11:47→12:00)
--- NOTE | 2017-09-20 12:29 | OP ---
DATE OF SURGERY: PROCEDURE: Bronchoscopy. INDICATIONS: Diffuse lung infiltrates. Informed consent was obtained from the patient's who agreed to proceed with the procedure. The patient was sedated on mechanical ventilation. Bronchoscope was introduced through the endotracheal tube. Distal trachea was visualized. No significant purulent secretions seen. Alyssa was sharp. Right lung was examined. All subsegments of right upper, right middle and right lower lobe were examined. There was no evidence of any purulent secretion. No endobronchial lesions seen. Bronchoalveolar lavage was performed on the right middle lobe which was very minimally pinkish, but had excellent return. Bronchoscope was introduced into the left lung. All subsegments of left upper lobe lingula and left lower lobe were examined. No purulent secretions seen. Bronchoalveolar lavage performed from the lingula. There was no evidence of any milky white secretions or any evidence of alveolar hemorrhage. The patient tolerated the procedure well. IMPRESSION: 1. No evidence of any endobronchial lesions. 2. Mucosa appeared normal and no evidence of any purulent secretions. 3. No evidence of any milky white lavage that excludes alveolar proteinosis. 4. Bronchoalveolar lavage performed from the right middle lobe and lingula. It was minimally pinkish from the right middle lobe, but normal color on the lingula. It has been sent for appropriate studies and follow the results. JROGE LEDESMA MD DR: YOLY/tito JOB#: [id number] / [id number]
--- NOTE | 2017-09-20 12:47 | PDOC ---
CARDIO Progress Notes Date and Time Date of Service 09/20/2017 Time of Evaluation 1240 Subjective Subjective: Other (on bipap and lethargic) Vitals Vitals Vital Signs Date Time Temp Pulse Resp B/P (MAP) Pulse Ox O2 Delivery O2 Flow Rate FiO2 09/20/17 12:00 Mechanical Ventilator 09/20/17 11:28 97.1 82 22 109/68 97.1 09/20/17 11:22 97 Weight Weight [ ] Input and Output Intake and Output Intake and Output 09/20/17 07:00 Intake Total 1222.78 ml Output Total 1110 ml Balance 112.78 ml Intake Oral 25 ml IV Total 597.78 ml Blood Product 350 ml Blood Product IV Normal Saline Flush 250 ml Output Urine Total 910 ml Gastric Drainage Total 200 ml Laboratory Labs Laboratory Tests Test 09/20/17 06:15 09/20/17 08:23 09/20/17 08:28 White Blood Count 17.3 x10^3/uL (4.0-11.0) Red Blood Count 3.35 x10^6/uL (3.50-5.40) Hemoglobin 7.9 g/dL (12.0-15.5) Hematocrit 25.7 % (36.0-47.0) Mean Corpuscular Volume 77 fL (79-100) Mean Corpuscular Hemoglobin 24 pg (25-35) Mean Corpuscular Hemoglobin Concent 31 g/dL (31-37) Red Cell Distribution Width 25.3 % (11.5-14.5) Platelet Count 402 x10^3/uL (140-400) Neutrophils (%) (Auto) 95 % (31-73) Lymphocytes (%) (Auto) 3 % (24-48) Monocytes (%) (Auto) 2 % (0-9) Eosinophils (%) (Auto) 0 % (0-3) Basophils (%) (Auto) 0 % (0-3) Neutrophils # (Auto) 16.4 x10^3uL (1.8-7.7) Lymphocytes # (Auto) 0.4 x10^3/uL (1.0-4.8) Monocytes # (Auto) 0.4 x10^3/uL (0.0-1.1) Eosinophils # (Auto) 0.0 x10^3/uL (0.0-0.7) Basophils # (Auto) 0.0 x10^3/uL (0.0-0.2) Sodium Level 147 mmol/L (136-145) Potassium Level 3.7 mmol/L (3.5-5.1) Chloride Level 109 mmol/L (98-107) Carbon Dioxide Level 21 mmol/L (21-32) Anion Gap 17 (6-14) Blood Urea Nitrogen 30 mg/dL (7-20) Creatinine 1.5 mg/dL (0.6-1.0) Estimated GFR (Cockcroft-Gault) 35.4 BUN/Creatinine Ratio 20 (6-20) Glucose Level 161 mg/dL (70-99) Calcium Level 9.1 mg/dL (8.5-10.1) Total Bilirubin 0.6 mg/dL (0.2-1.0) Aspartate Amino Transf (AST/SGOT) 25 U/L (15-37) Alanine Aminotransferase (ALT/SGPT) 12 U/L (14-59) Alkaline Phosphatase 82 U/L (46-116) Total Protein 6.3 g/dL (6.4-8.2) Albumin 2.2 g/dL (3.4-5.0) Albumin/Globulin Ratio 0.5 (1.0-1.7) O2 Saturation 94 % (92-99) Arterial Blood pH 7.38 (7.35-7.45) Arterial Blood pCO2 at Patient Temp 35 mmHg (35-46) Arterial Blood pO2 at Patient Temp 82 mmHg (65-108) Arterial Blood HCO3 20 mmol/L (21-28) Arterial Blood Base Excess -5 mmol/L (-3-3) FiO2 60 Lactic Acid Level 1.1 mmol/L (0.4-2.0) Lactate Dehydrogenase 436 U/L (81-234) Procalcitonin 1.26 ng/mL (0.00-0.10) Microbiology Micro Microbiology 09/17/17 Blood Culture - Preliminary, Resulted NO GROWTH AFTER 2 DAYS Review of Systems Constitutional: yes: unresponsive Musculoskeletal: Yes: muscle atrophy Physical Exam HEENT: Neck Supple W Full Motion Chest: Symmetric LUNGS: Other (intubated with mechanical vent, basilar crackles) Heart: S1S2, RRR (SR with PACs), other (distant heart sounds) Abdomen: Other (soft) Extremities: No Edema, No Calf Tenderness Neurology: follow commands, other (intubated) Assessment Assessment 1. Acute respiratory failure with CAP: intubated. pulmonary following. 2. Hypoxic/metabolic encephalopathy 3. Microcytic hypochromic anemia: No obvious source so far. GI and Hemoc following. receiving PRBC currently 4. Acute diastolic CHF: imposed by pulmonary issues and anemia. 5. GEO: nephrology following 6. Chronic NSAID use: routine use of 800 mg of advil bid 7. HTN: low end but controlled 8. AECOPD with tobaccoism 9. Protein malnutrition 10. Valvular insufficiency: mild TR PAP 38 mmHg and moderate MR. Recommendations 1. Continue with current regimen 2. Transfusion per PCP. x1 lasix with transfusion. Lasix PRN. 3. Vasopressor to titrate as warranted. Supportive care. KELVIN ALFARO BIOCHEMISTRY SPECIALIST Sep 20, 2017 12:47
--- NOTE | 2017-09-20 14:05 | PDOC ---
PROGRESS NOTES Chief Complaint Chief Complaint pneumonia, RML opacity, cough and dyspnea acute hypoxic respiratory failure consistent with ARDS, possible underlying COPD sepsis, severe sepsis, anemia, acute on chronic, w. sepsis tobaccoism, anxiety d/o, very poor control History of Present Illness History of Present Illness intubated yesterday morning marked hypoxia overnight, any movement causes extremus, trying to wean down 02 change abx to broader coverage, ID bruenr for atypical infections PULM discussed, on stress dose steriods, her is here daily [facility] contacted yesterday at family request, would accept in transfer if patient more stable Vitals Vitals Vital Signs Date Time Temp Pulse Resp B/P (MAP) Pulse Ox O2 Delivery O2 Flow Rate FiO2 09/20/17 13:09 97 Ventilator 09/20/17 11:28 97.1 82 22 109/68 97.1 Physical Exam General: No acute distress Heart: Regular rate, Normal S1 Lungs: Other (crackles bases) Abdomen: Normal bowel sounds, Soft, No hepatosplenomegaly Extremities: No clubbing, No edema, Normal pulses Skin: No breakdown, No significant lesion Labs LABS Laboratory Tests Test 09/20/17 06:15 09/20/17 08:23 09/20/17 08:28 White Blood Count 17.3 x10^3/uL (4.0-11.0) Red Blood Count 3.35 x10^6/uL (3.50-5.40) Hemoglobin 7.9 g/dL (12.0-15.5) Hematocrit 25.7 % (36.0-47.0) Mean Corpuscular Volume 77 fL (79-100) Mean Corpuscular Hemoglobin 24 pg (25-35) Mean Corpuscular Hemoglobin Concent 31 g/dL (31-37) Red Cell Distribution Width 25.3 % (11.5-14.5) Platelet Count 402 x10^3/uL (140-400) Neutrophils (%) (Auto) 95 % (31-73) Lymphocytes (%) (Auto) 3 % (24-48) Monocytes (%) (Auto) 2 % (0-9) Eosinophils (%) (Auto) 0 % (0-3) Basophils (%) (Auto) 0 % (0-3) Neutrophils # (Auto) 16.4 x10^3uL (1.8-7.7) Lymphocytes # (Auto) 0.4 x10^3/uL (1.0-4.8) Monocytes # (Auto) 0.4 x10^3/uL (0.0-1.1) Eosinophils # (Auto) 0.0 x10^3/uL (0.0-0.7) Basophils # (Auto) 0.0 x10^3/uL (0.0-0.2) Sodium Level 147 mmol/L (136-145) Potassium Level 3.7 mmol/L (3.5-5.1) Chloride Level 109 mmol/L (98-107) Carbon Dioxide Level 21 mmol/L (21-32) Anion Gap 17 (6-14) Blood Urea Nitrogen 30 mg/dL (7-20) Creatinine 1.5 mg/dL (0.6-1.0) Estimated GFR (Cockcroft-Gault) 35.4 BUN/Creatinine Ratio 20 (6-20) Glucose Level 161 mg/dL (70-99) Calcium Level 9.1 mg/dL (8.5-10.1) Total Bilirubin 0.6 mg/dL (0.2-1.0) Aspartate Amino Transf (AST/SGOT) 25 U/L (15-37) Alanine Aminotransferase (ALT/SGPT) 12 U/L (14-59) Alkaline Phosphatase 82 U/L (46-116) Total Protein 6.3 g/dL (6.4-8.2) Albumin 2.2 g/dL (3.4-5.0) Albumin/Globulin Ratio 0.5 (1.0-1.7) O2 Saturation 94 % (92-99) Arterial Blood pH 7.38 (7.35-7.45) Arterial Blood pCO2 at Patient Temp 35 mmHg (35-46) Arterial Blood pO2 at Patient Temp 82 mmHg (65-108) Arterial Blood HCO3 20 mmol/L (21-28) Arterial Blood Base Excess -5 mmol/L (-3-3) FiO2 60 Lactic Acid Level 1.1 mmol/L (0.4-2.0) Lactate Dehydrogenase 436 U/L (81-234) Procalcitonin 1.26 ng/mL (0.00-0.10) Review of Systems Review of Systems intubated, sedated, marked anxiety if sedation lighted Assessment and Plan Assessmemt and Plan Problems Medical Problems: (1) Dyspnea Status: Acute (2) Hypoalbuminemia Status: Acute (3) Metabolic acidosis Status: Acute (4) Pneumonia Status: Acute Problems: Comment Review of Relevant I have reviewed the following items tha (where applicable) has been applied. Labs Laboratory Tests Test 09/18/17 16:41 09/18/17 17:35 09/19/17 04:20 09/19/17 08:00 Nasal Screen MRSA (PCR) Negative (Negative) O2 Saturation 91 % (92-99) 93 % (92-99) Arterial Blood pH 7.38 (7.35-7.45) 7.37 (7.35-7.45) Arterial Blood pCO2 at Patient Temp 32 mmHg (35-46) 33 mmHg (35-46) Arterial Blood pO2 at Patient Temp 68 mmHg (65-108) 73 mmHg (65-108) Arterial Blood HCO3 18 mmol/L (21-28) 19 mmol/L (21-28) Arterial Blood Base Excess -6 mmol/L (-3-3) -6 mmol/L (-3-3) FiO2 60 60 White Blood Count 17.6 x10^3/uL (4.0-11.0) Red Blood Count 2.92 x10^6/uL (3.50-5.40) Hemoglobin 6.6 g/dL (12.0-15.5) Hematocrit 21.7 % (36.0-47.0) Mean Corpuscular Volume 74 fL (79-100) Mean Corpuscular Hemoglobin 22 pg (25-35) Mean Corpuscular Hemoglobin Concent 30 g/dL (31-37) Red Cell Distribution Width 25.1 % (11.5-14.5) Platelet Count 361 x10^3/uL (140-400) Neutrophils (%) (Auto) 87 % (31-73) Lymphocytes (%) (Auto) 4 % (24-48) Monocytes (%) (Auto) 6 % (0-9) Eosinophils (%) (Auto) 2 % (0-3) Basophils (%) (Auto) 1 % (0-3) Neutrophils # (Auto) 15.2 x10^3uL (1.8-7.7) Lymphocytes # (Auto) 0.7 x10^3/uL (1.0-4.8) Monocytes # (Auto) 1.1 x10^3/uL (0.0-1.1) Eosinophils # (Auto) 0.4 x10^3/uL (0.0-0.7) Basophils # (Auto) 0.2 x10^3/uL (0.0-0.2) Segmented Neutrophils % 86 % (35-66) Band Neutrophils % 2 % (0-9) Lymphocytes % 8 % (24-48) Monocytes % 3 % (0-10) Basophils % 1 % (0-3) Platelet Estimate Adequate (ADEQUATE) Large Platelets Occ Hypochromasia Present Anisocytosis Present Microcytosis Present Sodium Level 143 mmol/L (136-145) Potassium Level 4.0 mmol/L (3.5-5.1) Chloride Level 109 mmol/L (98-107) Carbon Dioxide Level 21 mmol/L (21-32) Anion Gap 13 (6-14) Blood Urea Nitrogen 22 mg/dL (7-20) Creatinine 1.5 mg/dL (0.6-1.0) Estimated GFR (Cockcroft-Gault) 35.4 Glucose Level 104 mg/dL (70-99) Calcium Level 8.7 mg/dL (8.5-10.1) Magnesium Level 1.9 mg/dL (1.8-2.4) Test 09/19/17 12:06 09/19/17 12:35 09/20/17 06:15 09/20/17 08:23 O2 Saturation 97 % (92-99) 94 % (92-99) Arterial Blood pH 7.25 (7.35-7.45) 7.38 (7.35-7.45) Arterial Blood pCO2 at Patient Temp 46 mmHg (35-46) 35 mmHg (35-46) Arterial Blood pO2 at Patient Temp 106 mmHg (65-108) 82 mmHg (65-108) Arterial Blood HCO3 20 mmol/L (21-28) 20 mmol/L (21-28) Arterial Blood Base Excess -7 mmol/L (-3-3) -5 mmol/L (-3-3) FiO2 100 60 Influenza Type A Antigen Negative (NEGATIVE) Influenza Type B Antigen Negative (NEGATIVE) White Blood Count 17.3 x10^3/uL (4.0-11.0) Red Blood Count 3.35 x10^6/uL (3.50-5.40) Hemoglobin 7.9 g/dL (12.0-15.5) Hematocrit 25.7 % (36.0-47.0) Mean Corpuscular Volume 77 fL (79-100) Mean Corpuscular Hemoglobin 24 pg (25-35) Mean Corpuscular Hemoglobin Concent 31 g/dL (31-37) Red Cell Distribution Width 25.3 % (11.5-14.5) Platelet Count 402 x10^3/uL (140-400) Neutrophils (%) (Auto) 95 % (31-73) Lymphocytes (%) (Auto) 3 % (24-48) Monocytes (%) (Auto) 2 % (0-9) Eosinophils (%) (Auto) 0 % (0-3) Basophils (%) (Auto) 0 % (0-3) Neutrophils # (Auto) 16.4 x10^3uL (1.8-7.7) Lymphocytes # (Auto) 0.4 x10^3/uL (1.0-4.8) Monocytes # (Auto) 0.4 x10^3/uL (0.0-1.1) Eosinophils # (Auto) 0.0 x10^3/uL (0.0-0.7) Basophils # (Auto) 0.0 x10^3/uL (0.0-0.2) Sodium Level 147 mmol/L (136-145) Potassium Level 3.7 mmol/L (3.5-5.1) Chloride Level 109 mmol/L (98-107) Carbon Dioxide Level 21 mmol/L (21-32) Anion Gap 17 (6-14) Blood Urea Nitrogen 30 mg/dL (7-20) Creatinine 1.5 mg/dL (0.6-1.0) Estimated GFR (Cockcroft-Gault) 35.4 BUN/Creatinine Ratio 20 (6-20) Glucose Level 161 mg/dL (70-99) Calcium Level 9.1 mg/dL (8.5-10.1) Total Bilirubin 0.6 mg/dL (0.2-1.0) Aspartate Amino Transf (AST/SGOT) 25 U/L (15-37) Alanine Aminotransferase (ALT/SGPT) 12 U/L (14-59) Alkaline Phosphatase 82 U/L (46-116) Total Protein 6.3 g/dL (6.4-8.2) Albumin 2.2 g/dL (3.4-5.0) Albumin/Globulin Ratio 0.5 (1.0-1.7) Test 09/20/17 08:28 Lactic Acid Level 1.1 mmol/L (0.4-2.0) Lactate Dehydrogenase 436 U/L (81-234) Procalcitonin 1.26 ng/mL (0.00-0.10) Laboratory Tests Test 09/20/17 06:15 09/20/17 08:23 09/20/17 08:28 White Blood Count 17.3 x10^3/uL (4.0-11.0) Red Blood Count 3.35 x10^6/uL (3.50-5.40) Hemoglobin 7.9 g/dL (12.0-15.5) Hematocrit 25.7 % (36.0-47.0) Mean Corpuscular Volume 77 fL (79-100) Mean Corpuscular Hemoglobin 24 pg (25-35) Mean Corpuscular Hemoglobin Concent 31 g/dL (31-37) Red Cell Distribution Width 25.3 % (11.5-14.5) Platelet Count 402 x10^3/uL (140-400) Neutrophils (%) (Auto) 95 % (31-73) Lymphocytes (%) (Auto) 3 % (24-48) Monocytes (%) (Auto) 2 % (0-9) Eosinophils (%) (Auto) 0 % (0-3) Basophils (%) (Auto) 0 % (0-3) Neutrophils # (Auto) 16.4 x10^3uL (1.8-7.7) Lymphocytes # (Auto) 0.4 x10^3/uL (1.0-4.8) Monocytes # (Auto) 0.4 x10^3/uL (0.0-1.1) Eosinophils # (Auto) 0.0 x10^3/uL (0.0-0.7) Basophils # (Auto) 0.0 x10^3/uL (0.0-0.2) Sodium Level 147 mmol/L (136-145) Potassium Level 3.7 mmol/L (3.5-5.1) Chloride Level 109 mmol/L (98-107) Carbon Dioxide Level 21 mmol/L (21-32) Anion Gap 17 (6-14) Blood Urea Nitrogen 30 mg/dL (7-20) Creatinine 1.5 mg/dL (0.6-1.0) Estimated GFR (Cockcroft-Gault) 35.4 BUN/Creatinine Ratio 20 (6-20) Glucose Level 161 mg/dL (70-99) Calcium Level 9.1 mg/dL (8.5-10.1) Total Bilirubin 0.6 mg/dL (0.2-1.0) Aspartate Amino Transf (AST/SGOT) 25 U/L (15-37) Alanine Aminotransferase (ALT/SGPT) 12 U/L (14-59) Alkaline Phosphatase 82 U/L (46-116) Total Protein 6.3 g/dL (6.4-8.2) Albumin 2.2 g/dL (3.4-5.0) Albumin/Globulin Ratio 0.5 (1.0-1.7) O2 Saturation 94 % (92-99) Arterial Blood pH 7.38 (7.35-7.45) Arterial Blood pCO2 at Patient Temp 35 mmHg (35-46) Arterial Blood pO2 at Patient Temp 82 mmHg (65-108) Arterial Blood HCO3 20 mmol/L (21-28) Arterial Blood Base Excess -5 mmol/L (-3-3) FiO2 60 Lactic Acid Level 1.1 mmol/L (0.4-2.0) Lactate Dehydrogenase 436 U/L (81-234) Procalcitonin 1.26 ng/mL (0.00-0.10) Microbiology 09/17/17 Blood Culture - Preliminary, Resulted NO GROWTH AFTER 2 DAYS Medications Current Medications Sodium Chloride 1,000 ml @ 125 mls/hr 1X ONCE IV Last administered on 15:54; Start 09/17/17 at 15:15; Stop 09/17/17 at 23:14; Status DC Ondansetron HCl (Zofran) 4 mg PRN Q8HRS PRN IV NAUSEA/VOMITING; Start at 16:30; Stop 09/18/17 at 16:29; Status DC Ceftriaxone Sodium 50 ml @ 0 mls/hr 1X ONCE IV Last administered on 17:33; Start 09/17/17 at 16:45; Stop 09/17/17 at 16:46; Status DC Azithromycin 250 ml @ 250 mls/hr 1X ONCE IV Last administered on 09/17/17 22:38; Start 09/17/17 at 16:30; Stop 09/17/17 at 17:29; Status DC Albuterol/ Ipratropium (Duoneb) 3 ml 1X ONCE NEB Last administered on 17:00; Start 09/17/17 at 16:45; Stop 09/17/17 at 16:46; Status DC Potassium Chloride (Klor-Con) 40 meq 1X ONCE PO Last administered on 16:57; Start 09/17/17 at 16:45; Stop 09/17/17 at 16:46; Status DC Azithromycin (Zithromax) 250 mg DAILY PO Last administered on 09/18/17 10:25 ; Start 09/18/17 at 09:00; Stop 09/19/17 at 10:30; Status DC Ceftriaxone Sodium 1 gm/ Dextrose 50 ml @ 100 mls/hr Q24H IV ; Start 09/17/17 at 17:15; Status UNV Albuterol/ Ipratropium (Duoneb) 3 ml Q4HRS NEB Last administered on 09/20/17 11:22; Start 09/17/17 at 20:00 Ceftriaxone Sodium (Rocephin) 1 gm Q24H IVP Last administered on 09/18/17 17: 55; Start 09/18/17 at 16:00; Stop 09/19/17 at 10:30; Status DC Guaifenesin (Robitussin Dm) 10 ml PRN Q6HRS PRN PO COUGH; Start 09/17/17 at 17 :15 Sodium Chloride 1,000 ml @ 125 mls/hr 1X ONCE IV Last administered on 17:45; Start 09/17/17 at 17:15; Stop 09/17/17 at 22:12; Status DC Info (Do NOT chart on this placeholder) 1 each 1X ONCE MC ; Start 09/17/17 at 19:00; Stop 09/17/17 at 19:01; Status UNV Influenza Virus Vaccine Quadrival (Fluarix Quad [id number] Syringe) 0.5 ml ONCE ONCE VAX IM ; Start 09/17/17 at 21:00; Stop 09/17/17 at 21:01; Status DC Sodium Chloride 1,000 ml @ 130 mls/hr 1X ONCE IV Last administered on 22:31; Start 09/17/17 at 22:30; Stop 09/18/17 at 06:11; Status DC Sodium Bicarbonate 50 meq 1X ONCE IV Last administered on 09/17/17 22:31; Start 09/17/17 at 22:30; Stop 09/17/17 at 22:31; Status DC Alprazolam (Xanax) 1 mg PRN TID PRN PO ANXIETY Last administered on 09/19/17 02:19; Start 09/17/17 at 22:30 Furosemide (Lasix) 20 mg 1X ONCE IVP Last administered on 09/18/17 06:24; Start 09/18/17 at 06:30; Stop 09/18/17 at 06:31; Status DC Potassium Chloride (Klor-Con) 40 meq 1X ONCE PO Last administered on 10:25; Start 09/18/17 at 09:00; Stop 09/18/17 at 09:01; Status DC Iron Sucrose 500 mg/Sodium Chloride 275 ml @ 78.571 mls/ hr 1X ONCE IV Last administered on 09/18/17 10:24; Start 09/18/17 at 09:00; Stop 09/18/17 at 12 :29; Status DC Furosemide (Lasix) 20 mg 1X ONCE IVP Last administered on 09/18/17 10:30; Start 09/18/17 at 10:00; Stop 09/18/17 at 10:22; Status DC Pantoprazole Sodium (Protonix) 40 mg DAILYAC PO Last administered on 10:47; Start 09/18/17 at 11:00; Stop 09/19/17 at 13:41; Status DC Furosemide (Lasix) 20 mg 1X ONCE IVP Last administered on 09/18/17 10:47; Start 09/18/17 at 10:45; Stop 09/18/17 at 10:46; Status DC Potassium Chloride (Klor-Con) 40 meq 1X ONCE PO ; Start 09/18/17 at 11:45; Stop 09/18/17 at 11:46; Status DC Oxycodone/ Acetaminophen (Percocet 5/325) 1 tab PRN Q6HRS PRN PO PAIN Last administered on 09/18/17 13:23; Start 09/18/17 at 12:15 Lorazepam (Ativan) 1 mg PRN Q4HRS PRN IV ANXIETY / AGITATION Last administered on 09/18/17 12:25; Start 09/18/17 at 12:15; Stop 09/18/17 at 13:34; Status DC Fentanyl Citrate (Fentanyl 2ml Vial) 50 mcg PRN Q2HR PRN IV PAIN Last administered on 09/19/17 04:09; Start 09/18/17 at 12:15 Lorazepam (Ativan) 2 mg PRN Q4HRS PRN IV ANXIETY / AGITATION Last administered on 09/19/17 10:15; Start 09/18/17 at 13:30 Quetiapine Fumarate (SEROquel) 25 mg HS PO Last administered on 09/18/17 21: 03; Start 09/18/17 at 21:00; Stop 09/19/17 at 10:35; Status DC Haloperidol Lactate (Haldol) 5 mg PRN Q12HRS PRN IVP AGITATION; Start at 13:45 Lorazepam (Ativan) 1 mg PRN Q4HRS PRN IV ANXIETY / AGITATION; Start 09/19/17 at 10:15; Stop 09/19/17 at 10:18; Status DC Lorazepam (Ativan) 4 mg 1X ONCE IV ; Start 09/19/17 at 10:30; Stop 09/19/17 at 10:31; Status DC Vancomycin HCl (Vanco Per Pharmacy) 1 each PRN DAILY PRN MC SEE COMMENTS Last administered on 09/19/17 15:21; Start 09/19/17 at 10:30 Piperacillin Sod/ Tazobactam Sod (Zosyn Per Pharmacy) 1 each PRN DAILY PRN MC SEE COMMENTS; Start 09/19/17 at 10:30 Vancomycin HCl 2 gm/Dextrose 500 ml @ 250 mls/hr 1X ONCE IV Last administered on 09/19/17 14:53; Start 09/19/17 at 11:00; Stop 09/19/17 at 12 :59; Status DC Piperacillin Sod/ Tazobactam Sod (Zosyn) 3.375 gm Q6HRS IVP Last administered on 09/20/17 05:10; Start 09/19/17 at 11:00 Budesonide (Pulmicort) 0.5 mg RTBID NEB Last administered on 09/20/17 08:01; Start 09/19/17 at 20:00 Budesonide (Pulmicort) 0.5 mg 1X ONCE NEB Last administered on 09/19/17 12: 50; Start 09/19/17 at 10:45; Stop 09/19/17 at 10:46; Status DC Pantoprazole Sodium (Protonix Vial) 40 mg DAILYAC IVP Last administered on 10:04; Start 09/19/17 at 11:30 Furosemide (Lasix) 40 mg DAILY IVP ; Start 09/19/17 at 11:00; Stop 09/20/17 at 13:20; Status DC Methylprednisolone Sodium Succinate (SOLU-Medrol 125MG VIAL) 125 mg 1X ONCE IV Last administered on 09/19/17 13:23; Start 09/19/17 at 10:45; Stop at 10:46; Status DC Prednisone (Prednisone) 40 mg DAILY PO ; Start 09/19/17 at 11:00; Stop at 09:02; Status DC Methylprednisolone Sodium Succinate (SOLU-Medrol 125MG VIAL) 125 mg Q8HRS IV Last administered on 09/20/17 05:09; Start 09/19/17 at 14:00 Midazolam HCl 100 ml @ 0 mls/hr CONT PRN IV SEE I/O RECORD; Start 09/19/17 at 11:00; Stop 09/19/17 at 12:51; Status DC Midazolam HCl (Versed) 5 mg 1X ONCE IV ; Start 09/19/17 at 11:00; Stop at 11:01; Status DC Fentanyl Citrate (Fentanyl 2ml Vial) 50 mcg 1X ONCE IV ; Start 09/19/17 at 11: 00; Stop 09/19/17 at 11:01; Status DC Midazolam HCl 100 ml @ As Directed STK-MED ONCE IV ; Start 09/19/17 at 10:55; Stop 09/19/17 at 10:56; Status DC Midazolam HCl (Versed) 5 mg STK-MED ONCE .ROUTE ; Start 09/19/17 at 10:55; Stop 09/19/17 at 10:56; Status DC Propofol 100 ml @ As Directed STK-MED ONCE IV ; Start 09/19/17 at 10:59; Stop 09/19/17 at 11:00; Status DC Norepinephrine Bitartrate 250 ml @ As Directed STK-MED ONCE IV ; Start at 10:59; Stop 09/19/17 at 11:00; Status DC Furosemide (Lasix) 20 mg 1X ONCE IVP ; Start 09/19/17 at 11:15; Stop at 11:16; Status DC Vecuronium Belsano (Norcuron Bolus) 10 mg STK-MED ONCE IV ; Start 09/19/17 at 11:21; Stop 09/19/17 at 11:22; Status DC Fentanyl Citrate 30 ml @ 0 mls/hr CONT PRN IV PROTOCOL Last administered on 10:15; Start 09/19/17 at 11:30 Vecuronium Belsano (Norcuron Bolus) 6 mg 1X ONCE IV Last administered on 09/19 11:42; Start 09/19/17 at 11:30; Stop 09/19/17 at 11:39; Status DC Propofol 10 ml @ 0 mls/hr 1X ONCE IV Last administered on 09/19/17 11:30; Start 09/19/17 at 11:30; Stop 09/19/17 at 11:39; Status DC Midazolam HCl 100 ml @ 0 mls/hr CONT PRN IV SEE I/O RECORD Last administered on 09/20/17 11:32; Start 09/19/17 at 11:30 Norepinephrine Bitartrate 250 ml @ 0 mls/hr CONT PRN IV SEE I/O RECORD Last administered on 09/19/17 21:03; Start 09/19/17 at 11:30 Succinylcholine Chloride (Anectine) 100 mg 1X ONCE IV Last administered on 11:42; Start 09/19/17 at 11:30; Stop 09/19/17 at 11:39; Status DC Sodium Bicarbonate 50 meq 1X ONCE IV Last administered on 09/19/17 13:23; Start 09/19/17 at 12:45; Stop 09/19/17 at 12:46; Status DC Sodium Bicarbonate 50 meq 1X ONCE IV Last administered on 09/19/17 13:23; Start 09/19/17 at 12:45; Stop 09/19/17 at 12:46; Status DC Lidocaine/Sodium Bicarbonate (Buffered Lidocaine 1%) 20 ml STK-MED ONCE IJ ; Start 09/19/17 at 13:34; Stop 09/19/17 at 13:35; Status DC Vecuronium Bels[place] (Norcuron Bolus) 10 mg 1X ONCE IV Last administered on 15:05; Start 09/19/17 at 14:00; Stop 09/19/17 at 14:02; Status DC Lidocaine/Sodium Bicarbonate (Buffered Lidocaine 1%) 3 ml 1X ONCE IJ ; Start 09/19/17 at 14:45; Stop 09/19/17 at 14:46; Status DC Vancomycin HCl 1.25 gm/Dextrose 250 ml @ 166.667 mls/hr Q24H IV ; Start at 15:00 Vancomycin HCl 1 each 1X ONCE MC ; Start 09/21/17 at 14:30; Stop 09/21/17 at 14:31 Azithromycin 500 mg/Sodium Chloride 250 ml @ 250 mls/hr Q24H IV Last administered on 09/19/17 17:21; Start 09/19/17 at 16:30 Norepinephrine Bitartrate (Levophed 8mg/ 250ml Premix Drip) 8 mg STK-MED ONCE IV ; Start 09/19/17 at 11:00; Stop 09/20/17 at 08:44; Status DC Midazolam HCl (Versed) 5 mg STK-MED ONCE .ROUTE ; Start 09/19/17 at 11:00; Stop 09/20/17 at 08:44; Status DC Amino Acids/ Glycerin/ Electrolytes 1,000 ml @ 80 mls/hr [id number] IV ; Start at 10:00 Info 1 each PRN DAILY PRN MC SEE COMMENTS; Start 09/20/17 at 10:00; Stop at 12:14; Status DC Furosemide (Lasix) 20 mg 1X ONCE IVP Last administered on 09/20/17 10:21; Start 09/20/17 at 10:15; Stop 09/20/17 at 10:18; Status DC Info 1 each PRN DAILY PRN MC SEE COMMENTS; Start 09/20/17 at 11:00; Status UNV Vecuronium Belsano (Norcuron Bolus) 10 mg 1X ONCE IV Last administered on t 12:03; Start 09/20/17 at 11:15; Stop 09/20/17 at 11:24; Status DC Atropine Sulfate 0.5 mg STK-MED ONCE .ROUTE ; Start 09/20/17 at 11:47; Stop at 11:48; Status DC Epinephrine HCl (EPINEPHrine SYRINGE) 1 mg STK-MED ONCE .ROUTE ; Start at 11:47; Stop 09/20/17 at 11:48; Status DC Active Scripts Active Reported Gabapentin 300 Mg Capsule 300 Mg PO TID Cymbalta (Duloxetine Hcl) 60 Mg Capsule. 1 Cap PO BID Hydrochlorothiazide Tablet (Hydrochlorothiazide) 25 Mg Tablet 1 Tab PO DAILY Xanax (Alprazolam) 1 Mg Tablet 1 Tab PO TID PRN Vitals/I & O Vital Sign - Last 24 Hours 09/19/17 09/19/17 09/19/17 09/19/17 14:30 14:55 15:00 15:30 Temp 99.5 99.5 Pulse 160 105 102 100 Resp 22 22 22 22 B/P (MAP) 107/67 (80) 96/62 91/52 (65) 92/58 (69) Pulse Ox 95 100 100 O2 Delivery Ventilator Ventilator Ventilator 09/19/17 09/19/17 09/19/17 09/19/17 16:00 16:00 16:13 16:30 Temp 98.6 98.6 Pulse 92 92 Resp 22 22 B/P (MAP) 85/53 (64) 86/52 (63) Pulse Ox 100 100 98 O2 Delivery Mechanical Ventilator Ventilator Ventilator Ventilator 09/19/17 09/19/17 09/19/17 09/19/17 17:00 17:30 17:45 18:00 Pulse 92 90 94 Resp 22 22 22 B/P (MAP) 88/55 (66) 93/57 (69) 91/55 (67) Pulse Ox 97 96 100 96 O2 Delivery Ventilator Ventilator Ventilator Ventilator 09/19/17 09/19/17 09/19/17 09/19/17 19:00 19:57 20:00 20:00 Temp 98.2 98.2 Pulse 89 86 Resp 22 22 B/P (MAP) 87/56 (66) 92/57 (69) Pulse Ox 97 96 96 O2 Delivery Ventilator Ventilator Ventilator Mechanical Ventilator 09/19/17 09/19/17 09/19/17 09/19/17 20:45 21:00 21:01 21:15 Pulse 82 82 88 Resp 22 22 20 22 B/P (MAP) 85/54 (64) 108/63 (78) 111/62 (78) Pulse Ox 100 96 95 98 O2 Delivery Ventilator Ventilator Ventilator Ventilator 09/19/17 09/19/17 09/19/17 09/19/17 21:30 21:45 22:00 22:48 Pulse 89 87 88 Resp 22 22 22 B/P (MAP) 110/67 (81) 108/62 (77) 105/62 (76) Pulse Ox 95 91 95 99 O2 Delivery Ventilator Ventilator Ventilator Ventilator 09/19/17 09/19/17 09/19/17 09/20/17 23:00 23:59 23:59 00:55 Temp 98.4 98.4 Pulse 92 92 Resp 22 22 B/P (MAP) 110/62 (78) 108/59 (75) Pulse Ox 96 97 99 O2 Delivery Ventilator Mechanical Ventilator Ventilator Ventilator 09/20/17 09/20/17 09/20/17 09/20/17 01:00 02:01 02:36 02:48 Pulse 68 87 Resp 22 22 B/P (MAP) 109/64 (79) 107/60 (76) Pulse Ox 96 96 97 100 O2 Delivery Ventilator Ventilator Ventilator Ventilator 09/20/17 09/20/17 09/20/17 09/20/17 03:00 04:00 04:00 05:00 Temp 98.6 98.6 Pulse 90 88 86 Resp 22 22 22 B/P (MAP) 109/65 (80) 100/62 (75) 103/69 (80) Pulse Ox 100 95 96 O2 Delivery Ventilator Mechanical Ventilator Ventilator Ventilator 09/20/17 09/20/17 09/20/17 09/20/17 05:03 06:00 08:00 08:02 Pulse 88 Resp 22 B/P (MAP) 107/69 (82) Pulse Ox 98 96 97 O2 Delivery Ventilator Ventilator Mechanical Ventilator Ventilator 09/20/17 09/20/17 09/20/17 09/20/17 09:08 10:15 10:45 11:22 Resp 22 Pulse Ox 99 98 98 97 O2 Delivery Ventilator Ventilator Ventilator Ventilator 09/20/17 09/20/17 09/20/17 11:28 12:00 13:09 Temp 97.1 97.1 Pulse 82 Resp 22 B/P (MAP) 109/68 Pulse Ox 97 O2 Delivery Mechanical Ventilator Ventilator Intake and Output 09/19/17 09/19/17 09/20/17 15:00 23:00 07:00 Intake Total 25 ml 970.78 ml 227 ml Output Total 195 ml 595 ml 320 ml Balance -170 ml 375.78 ml -93 ml ABELARDO MOORE MD Sep 20, 2017 14:05
[2017-09-20] MEDS: VANCOMYCIN 1.25 GM in IV DEXTROSE 5% 250 ML IV SCH (14:47)
[2017-09-20] MEDS: AMINO AC 3%/ELECTROLYTE/GLYCER 1,000 ML IV SCH (14:48)
[2017-09-20] MEDS: AZITHROMYCIN 500 MG in IV NORMAL SALINE 250ML 250 ML IV SCH (16:37)
[2017-09-20 21:10] LABS: SPECIMEN SOURCE Urine (.)
[2017-09-21] VITALS (23 sets, daily range): BP systolic 87–127; BP diastolic 58–86
[2017-09-21] MEDS: PIPERACILLIN/TAZO IV Push 3.375 GM VIAL. IVP SCH ×4 (00:21→18:03)
[2017-09-21] MEDS: MIDAZOLAM 100MG/100ML PREMIX 100 ML IV PRN ×6 (01:20→23:01)
[2017-09-21] MEDS: AMINO AC 3%/ELECTROLYTE/GLYCER 1,000 ML IV SCH ×3 (01:21→23:30)
[2017-09-21] MEDS: NOREPINEPHRIN PREMIX 250 ML IV PRN (02:10)
[2017-09-21] MEDS: IPRATRPIUM/ALBUTEROL 0.5/2.5MG 3 ML NEBU. NEB SCH ×5 (03:30→19:44)
[2017-09-21] MEDS: methylPREDNISolone SOD SUCC PF 125 MG/2 ML VIAL. IV SCH ×3 (05:42→21:30)
[2017-09-21 06:05] LABS: BASO # 0.1 x10^3/uL (0.0-0.2); BASO % 0 % (0-3); EOS % 0 % (0-3); HEMATOCRIT 28.7 % (36.0-47.0); HEMOGLOBIN 8.8 g/dL (12.0-15.5); LYMPH # 0.2 x10^3/uL (1.0-4.8); LYMPH % 1 % (24-48); MEAN CORPUSCULAR HEMOGLOBIN 24 pg (25-35); MEAN CORPUSCULAR HGB CONC 31 g/dL (31-37); MEAN CORPUSCULAR VOLUME 79 fL (79-100); MONO % 3 % (0-9); NEUT % 96 % (31-73); PLATELET COUNT 348 x10^3/uL (140-400); RED BLOOD COUNT 3.64 x10^6/uL (3.50-5.40); RED CELL DISTRIBUTION WIDTH 23.6 % (11.5-14.5)
[2017-09-21 06:46] LABS: ALBUMIN 2.1 g/dL (3.4-5.0); ALBUMIN/GLOBULIN RATIO 0.6 (1.0-1.7); CALCIUM 9.2 mg/dL (8.5-10.1); CREATININE 1.5 mg/dL (0.6-1.0); GFR 35.4; MAGNESIUM 2.6 mg/dL (1.8-2.4); PHOSPHORUS 3.9 mg/dL (2.6-4.7); POTASSIUM 4.2 mmol/L (3.5-5.1); TOTAL BILIRUBIN 0.3 mg/dL (0.2-1.0); TOTAL PROTEIN 5.9 g/dL (6.4-8.2)
[2017-09-21] MEDS: BUDESONIDE 0.5 MG/2 ML NEBU. NEB SCH ×2 (07:51→19:44)
[2017-09-21 08:13] LABS: HCO3 ABG 21 mmol/L (21-28); PCO2 ABG 39 mmHg (35-46); PH ABG 7.35 (7.35-7.45); PO2 ABG 60 mmHg (65-108); SAT O2 ABG 87 % (92-99)
[2017-09-21 08:29] LABS: FIO2 ABG 65
--- NOTE | 2017-09-21 08:36 | PDOC ---
Infectious Disease Note Subjective Subjective Intubated/sedated ROS ROS Unobtainable Vital Sign Vital Signs Vital Signs Date Time Temp Pulse Resp B/P (MAP) Pulse Ox O2 Delivery O2 Flow Rate FiO2 09/21/17 07:53 93 Ventilator 09/21/17 07:25 22 09/21/17 06:00 72 104/66 (79) 09/21/17 04:00 98.5 98.5 09/21/17 02:42 60.0 Physical Exam PHYSICAL EXAM CONSTITUTIONAL: She is intubated. She is sedated but did respond a little when I opened her eyes. HEENT: Pupils equal are reactive NECK: Supple, no JVD. LUNGS: CTA. HEART: S1, S2. ABDOMEN: Soft, nontender, nondistended, with positive bowel sounds. She has a [place] in place. EXTREMITIES: Without clubbing, cyanosis. She has well-healed scars. No gross wounds. IV: She has a peripheral IV in central line without signs of any complications Labs Lab Laboratory Tests Test 09/20/17 08:28 09/20/17 21:30 09/21/17 05:46 09/21/17 05:50 Lactic Acid Level 1.1 mmol/L (0.4-2.0) Lactate Dehydrogenase 436 U/L (81-234) Procalcitonin 1.26 ng/mL (0.00-0.10) Glucose (Fingerstick) 178 mg/dL (70-99) 152 mg/dL (70-99) White Blood Count 20.0 x10^3/uL (4.0-11.0) Red Blood Count 3.64 x10^6/uL (3.50-5.40) Hemoglobin 8.8 g/dL (12.0-15.5) Hematocrit 28.7 % (36.0-47.0) Mean Corpuscular Volume 79 fL (79-100) Mean Corpuscular Hemoglobin 24 pg (25-35) Mean Corpuscular Hemoglobin Concent 31 g/dL (31-37) Red Cell Distribution Width 23.6 % (11.5-14.5) Platelet Count 348 x10^3/uL (140-400) Neutrophils (%) (Auto) 96 % (31-73) Lymphocytes (%) (Auto) 1 % (24-48) Monocytes (%) (Auto) 3 % (0-9) Eosinophils (%) (Auto) 0 % (0-3) Basophils (%) (Auto) 0 % (0-3) Neutrophils # (Auto) 19.1 x10^3uL (1.8-7.7) Lymphocytes # (Auto) 0.2 x10^3/uL (1.0-4.8) Monocytes # (Auto) 0.5 x10^3/uL (0.0-1.1) Eosinophils # (Auto) 0.0 x10^3/uL (0.0-0.7) Basophils # (Auto) 0.1 x10^3/uL (0.0-0.2) Sodium Level 146 mmol/L (136-145) Potassium Level 4.2 mmol/L (3.5-5.1) Chloride Level 111 mmol/L (98-107) Carbon Dioxide Level 25 mmol/L (21-32) Anion Gap 10 (6-14) Blood Urea Nitrogen 46 mg/dL (7-20) Creatinine 1.5 mg/dL (0.6-1.0) Estimated GFR (Cockcroft-Gault) 35.4 BUN/Creatinine Ratio 31 (6-20) Glucose Level 173 mg/dL (70-99) Calcium Level 9.2 mg/dL (8.5-10.1) Phosphorus Level 3.9 mg/dL (2.6-4.7) Magnesium Level 2.6 mg/dL (1.8-2.4) Total Bilirubin 0.3 mg/dL (0.2-1.0) Aspartate Amino Transf (AST/SGOT) 105 U/L (15-37) Alanine Aminotransferase (ALT/SGPT) 79 U/L (14-59) Alkaline Phosphatase 78 U/L (46-116) Total Protein 5.9 g/dL (6.4-8.2) Albumin 2.1 g/dL (3.4-5.0) Albumin/Globulin Ratio 0.6 (1.0-1.7) Objective Assessment Acute Resp failure - intubated Strep/Legionella antigens - neg. S/p Bronch Hypotension - on 2 levophed. Lactic normal/Procalcitonin mild - elevation Pulm infiltrates - ARDS ? if transfusions could be playing into resp failure Anemia - on arrival s/p PRBCs - GI eval in process Leukocytosis - on steroids now and S/p PRBCs GEO -stable Transaminitis - ? reactive COPD H/o Leg wounds - no recent abx per for wounds - last amox 6 weeks ago Influenza vaccine 09/17 - given Plan Plan of Care Ordered Resp viral panel/Silver stain but cancelled by Pathology F/u Mycoplasma 09/20 Restarted Azithromycin 09/20 for atypical F/u parvo (with anemia although no rash or joint pains) ANCA/Sputum cult Cont Zosyn/Vanc for now F/u Bronch F/u labs and cults May need additional tests based on above results D/w LUL GRAVES MD Sep 21, 2017 08:36
--- NOTE | 2017-09-21 08:40 | RAD ---
Single view of the Chest 09/21/2017 11:00 AM Indication: ARDS/RF Comparison: Chest radiograph, yesterday Findings: The patient is rotated. Stable support lines and tubes including endotracheal tube, enteric tube, and right internal jugular central line. Persistent diffuse interstitial alveolar infiltrates throughout bilateral lungs. Minimal effusion is seen on the right. No pneumothorax is identified. Impression: 1. Stable support lines and tubes 2. Stable diffuse interstitial and alveolar infiltrates. Findings consistent with provided history of ARDS
--- NOTE | 2017-09-21 09:10 | PDOC ---
PROGRESS NOTES Subjective Subjective HPI - Iron deficiency anemia ROS - on vent Objective Objective Vital Signs Date Time Temp Pulse Resp B/P (MAP) Pulse Ox O2 Delivery O2 Flow Rate FiO2 09/21/17 08:00 Mechanical Ventilator 09/21/17 07:53 93 09/21/17 07:25 22 09/21/17 06:00 72 104/66 (79) 09/21/17 04:00 98.5 98.5 09/21/17 02:42 60.0 Intake and Output 09/21/17 07:00 Intake Total 3181.5 ml Output Total 1110 ml Balance 2071.5 ml Intake Oral 0 ml IV Total 2155.5 ml Tube Feeding 726 ml Blood Product IV Normal Saline Flush 100 ml Other 200 ml Output Urine Total 1110 ml Gastric Drainage Total 0 ml Physical Exam Heart: Normal S1, Normal S2 Lungs: Clear to auscultation Assessment Assessment Problems Medical Problems: (1) Dyspnea Status: Acute (2) Hypoalbuminemia Status: Acute (3) Metabolic acidosis Status: Acute (4) Pneumonia Status: Acute IMPRESSION AND PLAN: 1. Iron deficiency anemia. There is no evidence of blood loss. She received Venofer 500 mg intravenous on 09/18/2017. I will continue to monitor hemoglobin and transfuse as needed. Hemoglobin improved to 7.7 after transfusion. Then worse at 6.6 on 09/19/17. s/p 1 unit 09/19/17. Hb 7.9 on 09/20/17 Improved to 8.8 on 09/21/17 2. Leukocytosis, reactive from underlying pneumonia. Management per Pulmonary Medicine. WBC 20.0 3. Pneumonia/dyspnea - I appreciate consultation by Dr. Aadn Thurman. Intubated 09/19/17. Comment Review of Relevant I have reviewed the following items tha (where applicable) has been applied. Labs Laboratory Tests Test 09/19/17 12:06 09/19/17 12:35 09/19/17 17:00 09/20/17 06:15 O2 Saturation 97 % (92-99) Arterial Blood pH 7.25 (7.35-7.45) Arterial Blood pCO2 at Patient Temp 46 mmHg (35-46) Arterial Blood pO2 at Patient Temp 106 mmHg (65-108) Arterial Blood HCO3 20 mmol/L (21-28) Arterial Blood Base Excess -7 mmol/L (-3-3) FiO2 100 Influenza Type A Antigen Negative (NEGATIVE) Influenza Type B Antigen Negative (NEGATIVE) Body Fluid Culture (LAB) (.) Urine Legionella Antigen Negative (Negative) Streptococcus pneumoniae Antigen Negative (Negative) Organism Identification (LAB) (.) WILSON Specimen Source Urine (.) White Blood Count 17.3 x10^3/uL (4.0-11.0) Red Blood Count 3.35 x10^6/uL (3.50-5.40) Hemoglobin 7.9 g/dL (12.0-15.5) Hematocrit 25.7 % (36.0-47.0) Mean Corpuscular Volume 77 fL (79-100) Mean Corpuscular Hemoglobin 24 pg (25-35) Mean Corpuscular Hemoglobin Concent 31 g/dL (31-37) Red Cell Distribution Width 25.3 % (11.5-14.5) Platelet Count 402 x10^3/uL (140-400) Neutrophils (%) (Auto) 95 % (31-73) Lymphocytes (%) (Auto) 3 % (24-48) Monocytes (%) (Auto) 2 % (0-9) Eosinophils (%) (Auto) 0 % (0-3) Basophils (%) (Auto) 0 % (0-3) Neutrophils # (Auto) 16.4 x10^3uL (1.8-7.7) Lymphocytes # (Auto) 0.4 x10^3/uL (1.0-4.8) Monocytes # (Auto) 0.4 x10^3/uL (0.0-1.1) Eosinophils # (Auto) 0.0 x10^3/uL (0.0-0.7) Basophils # (Auto) 0.0 x10^3/uL (0.0-0.2) Sodium Level 147 mmol/L (136-145) Potassium Level 3.7 mmol/L (3.5-5.1) Chloride Level 109 mmol/L (98-107) Carbon Dioxide Level 21 mmol/L (21-32) Anion Gap 17 (6-14) Blood Urea Nitrogen 30 mg/dL (7-20) Creatinine 1.5 mg/dL (0.6-1.0) Estimated GFR (Cockcroft-Gault) 35.4 BUN/Creatinine Ratio 20 (6-20) Glucose Level 161 mg/dL (70-99) Calcium Level 9.1 mg/dL (8.5-10.1) Total Bilirubin 0.6 mg/dL (0.2-1.0) Aspartate Amino Transf (AST/SGOT) 25 U/L (15-37) Alanine Aminotransferase (ALT/SGPT) 12 U/L (14-59) Alkaline Phosphatase 82 U/L (46-116) Total Protein 6.3 g/dL (6.4-8.2) Albumin 2.2 g/dL (3.4-5.0) Albumin/Globulin Ratio 0.5 (1.0-1.7) Test 09/20/17 08:23 09/20/17 08:28 09/20/17 21:30 09/21/17 05:46 O2 Saturation 94 % (92-99) Arterial Blood pH 7.38 (7.35-7.45) Arterial Blood pCO2 at Patient Temp 35 mmHg (35-46) Arterial Blood pO2 at Patient Temp 82 mmHg (65-108) Arterial Blood HCO3 20 mmol/L (21-28) Arterial Blood Base Excess -5 mmol/L (-3-3) FiO2 60 Lactic Acid Level 1.1 mmol/L (0.4-2.0) Lactate Dehydrogenase 436 U/L (81-234) Procalcitonin 1.26 ng/mL (0.00-0.10) Glucose (Fingerstick) 178 mg/dL (70-99) 152 mg/dL (70-99) Test 09/21/17 05:50 09/21/17 08:00 White Blood Count 20.0 x10^3/uL (4.0-11.0) Red Blood Count 3.64 x10^6/uL (3.50-5.40) Hemoglobin 8.8 g/dL (12.0-15.5) Hematocrit 28.7 % (36.0-47.0) Mean Corpuscular Volume 79 fL (79-100) Mean Corpuscular Hemoglobin 24 pg (25-35) Mean Corpuscular Hemoglobin Concent 31 g/dL (31-37) Red Cell Distribution Width 23.6 % (11.5-14.5) Platelet Count 348 x10^3/uL (140-400) Neutrophils (%) (Auto) 96 % (31-73) Lymphocytes (%) (Auto) 1 % (24-48) Monocytes (%) (Auto) 3 % (0-9) Eosinophils (%) (Auto) 0 % (0-3) Basophils (%) (Auto) 0 % (0-3) Neutrophils # (Auto) 19.1 x10^3uL (1.8-7.7) Lymphocytes # (Auto) 0.2 x10^3/uL (1.0-4.8) Monocytes # (Auto) 0.5 x10^3/uL (0.0-1.1) Eosinophils # (Auto) 0.0 x10^3/uL (0.0-0.7) Basophils # (Auto) 0.1 x10^3/uL (0.0-0.2) Sodium Level 146 mmol/L (136-145) Potassium Level 4.2 mmol/L (3.5-5.1) Chloride Level 111 mmol/L (98-107) Carbon Dioxide Level 25 mmol/L (21-32) Anion Gap 10 (6-14) Blood Urea Nitrogen 46 mg/dL (7-20) Creatinine 1.5 mg/dL (0.6-1.0) Estimated GFR (Cockcroft-Gault) 35.4 BUN/Creatinine Ratio 31 (6-20) Glucose Level 173 mg/dL (70-99) Calcium Level 9.2 mg/dL (8.5-10.1) Phosphorus Level 3.9 mg/dL (2.6-4.7) Magnesium Level 2.6 mg/dL (1.8-2.4) Total Bilirubin 0.3 mg/dL (0.2-1.0) Aspartate Amino Transf (AST/SGOT) 105 U/L (15-37) Alanine Aminotransferase (ALT/SGPT) 79 U/L (14-59) Alkaline Phosphatase 78 U/L (46-116) Total Protein 5.9 g/dL (6.4-8.2) Albumin 2.1 g/dL (3.4-5.0) Albumin/Globulin Ratio 0.6 (1.0-1.7) O2 Saturation 87 % (92-99) Arterial Blood pH 7.35 (7.35-7.45) Arterial Blood pCO2 at Patient Temp 39 mmHg (35-46) Arterial Blood pO2 at Patient Temp 60 mmHg (65-108) Arterial Blood HCO3 21 mmol/L (21-28) Arterial Blood Base Excess -4 mmol/L (-3-3) FiO2 65 Laboratory Tests Test 09/20/17 21:30 09/21/17 05:46 09/21/17 05:50 09/21/17 08:00 Glucose (Fingerstick) 178 mg/dL (70-99) 152 mg/dL (70-99) White Blood Count 20.0 x10^3/uL (4.0-11.0) Red Blood Count 3.64 x10^6/uL (3.50-5.40) Hemoglobin 8.8 g/dL (12.0-15.5) Hematocrit 28.7 % (36.0-47.0) Mean Corpuscular Volume 79 fL (79-100) Mean Corpuscular Hemoglobin 24 pg (25-35) Mean Corpuscular Hemoglobin Concent 31 g/dL (31-37) Red Cell Distribution Width 23.6 % (11.5-14.5) Platelet Count 348 x10^3/uL (140-400) Neutrophils (%) (Auto) 96 % (31-73) Lymphocytes (%) (Auto) 1 % (24-48) Monocytes (%) (Auto) 3 % (0-9) Eosinophils (%) (Auto) 0 % (0-3) Basophils (%) (Auto) 0 % (0-3) Neutrophils # (Auto) 19.1 x10^3uL (1.8-7.7) Lymphocytes # (Auto) 0.2 x10^3/uL (1.0-4.8) Monocytes # (Auto) 0.5 x10^3/uL (0.0-1.1) Eosinophils # (Auto) 0.0 x10^3/uL (0.0-0.7) Basophils # (Auto) 0.1 x10^3/uL (0.0-0.2) Sodium Level 146 mmol/L (136-145) Potassium Level 4.2 mmol/L (3.5-5.1) Chloride Level 111 mmol/L (98-107) Carbon Dioxide Level 25 mmol/L (21-32) Anion Gap 10 (6-14) Blood Urea Nitrogen 46 mg/dL (7-20) Creatinine 1.5 mg/dL (0.6-1.0) Estimated GFR (Cockcroft-Gault) 35.4 BUN/Creatinine Ratio 31 (6-20) Glucose Level 173 mg/dL (70-99) Calcium Level 9.2 mg/dL (8.5-10.1) Phosphorus Level 3.9 mg/dL (2.6-4.7) Magnesium Level 2.6 mg/dL (1.8-2.4) Total Bilirubin 0.3 mg/dL (0.2-1.0) Aspartate Amino Transf (AST/SGOT) 105 U/L (15-37) Alanine Aminotransferase (ALT/SGPT) 79 U/L (14-59) Alkaline Phosphatase 78 U/L (46-116) Total Protein 5.9 g/dL (6.4-8.2) Albumin 2.1 g/dL (3.4-5.0) Albumin/Globulin Ratio 0.6 (1.0-1.7) O2 Saturation 87 % (92-99) Arterial Blood pH 7.35 (7.35-7.45) Arterial Blood pCO2 at Patient Temp 39 mmHg (35-46) Arterial Blood pO2 at Patient Temp 60 mmHg (65-108) Arterial Blood HCO3 21 mmol/L (21-28) Arterial Blood Base Excess -4 mmol/L (-3-3) FiO2 65 Microbiology 09/17/17 Blood Culture - Preliminary, Resulted NO GROWTH AFTER 3 DAYS 09/20/17 Gram Stain - Final, Complete Medications Current Medications Sodium Chloride 1,000 ml @ 125 mls/hr 1X ONCE IV Last administered on 15:54; Start 09/17/17 at 15:15; Stop 09/17/17 at 23:14; Status DC Ondansetron HCl (Zofran) 4 mg PRN Q8HRS PRN IV NAUSEA/VOMITING; Start at 16:30; Stop 09/18/17 at 16:29; Status DC Ceftriaxone Sodium 50 ml @ 0 mls/hr 1X ONCE IV Last administered on 17:33; Start 09/17/17 at 16:45; Stop 09/17/17 at 16:46; Status DC Azithromycin 250 ml @ 250 mls/hr 1X ONCE IV Last administered on 09/17/17 22:38; Start 09/17/17 at 16:30; Stop 09/17/17 at 17:29; Status DC Albuterol/ Ipratropium (Duoneb) 3 ml 1X ONCE NEB Last administered on 17:00; Start 09/17/17 at 16:45; Stop 09/17/17 at 16:46; Status DC Potassium Chloride (Klor-Con) 40 meq 1X ONCE PO Last administered on 16:57; Start 09/17/17 at 16:45; Stop 09/17/17 at 16:46; Status DC Azithromycin (Zithromax) 250 mg DAILY PO Last administered on 09/18/17 10:25 ; Start 09/18/17 at 09:00; Stop 09/19/17 at 10:30; Status DC Ceftriaxone Sodium 1 gm/ Dextrose 50 ml @ 100 mls/hr Q24H IV ; Start 09/17/17 at 17:15; Status UNV Albuterol/ Ipratropium (Duoneb) 3 ml Q4HRS NEB Last administered on 09/21/17 07:51; Start 09/17/17 at 20:00 Ceftriaxone Sodium (Rocephin) 1 gm Q24H IVP Last administered on 09/18/17 17: 55; Start 09/18/17 at 16:00; Stop 09/19/17 at 10:30; Status DC Guaifenesin (Robitussin Dm) 10 ml PRN Q6HRS PRN PO COUGH; Start 09/17/17 at 17 :15 Sodium Chloride 1,000 ml @ 125 mls/hr 1X ONCE IV Last administered on 17:45; Start 09/17/17 at 17:15; Stop 09/17/17 at 22:12; Status DC Info (Do NOT chart on this placeholder) 1 each 1X ONCE MC ; Start 09/17/17 at 19:00; Stop 09/17/17 at 19:01; Status UNV Influenza Virus Vaccine Quadrival (Fluarix Quad [id number] Syringe) 0.5 ml ONCE ONCE VAX IM ; Start 09/17/17 at 21:00; Stop 09/17/17 at 21:01; Status DC Sodium Chloride 1,000 ml @ 130 mls/hr 1X ONCE IV Last administered on 22:31; Start 09/17/17 at 22:30; Stop 09/18/17 at 06:11; Status DC Sodium Bicarbonate 50 meq 1X ONCE IV Last administered on 09/17/17 22:31; Start 09/17/17 at 22:30; Stop 09/17/17 at 22:31; Status DC Alprazolam (Xanax) 1 mg PRN TID PRN PO ANXIETY Last administered on 09/19/17 02:19; Start 09/17/17 at 22:30 Furosemide (Lasix) 20 mg 1X ONCE IVP Last administered on 09/18/17 06:24; Start 09/18/17 at 06:30; Stop 09/18/17 at 06:31; Status DC Potassium Chloride (Klor-Con) 40 meq 1X ONCE PO Last administered on 10:25; Start 09/18/17 at 09:00; Stop 09/18/17 at 09:01; Status DC Iron Sucrose 500 mg/Sodium Chloride 275 ml @ 78.571 mls/ hr 1X ONCE IV Last administered on 09/18/17 10:24; Start 09/18/17 at 09:00; Stop 09/18/17 at 12 :29; Status DC Furosemide (Lasix) 20 mg 1X ONCE IVP Last administered on 09/18/17 10:30; Start 09/18/17 at 10:00; Stop 09/18/17 at 10:22; Status DC Pantoprazole Sodium (Protonix) 40 mg DAILYAC PO Last administered on 10:47; Start 09/18/17 at 11:00; Stop 09/19/17 at 13:41; Status DC Furosemide (Lasix) 20 mg 1X ONCE IVP Last administered on 09/18/17 10:47; Start 09/18/17 at 10:45; Stop 09/18/17 at 10:46; Status DC Potassium Chloride (Klor-Con) 40 meq 1X ONCE PO ; Start 09/18/17 at 11:45; Stop 09/18/17 at 11:46; Status DC Oxycodone/ Acetaminophen (Percocet 5/325) 1 tab PRN Q6HRS PRN PO PAIN Last administered on 09/18/17 13:23; Start 09/18/17 at 12:15 Lorazepam (Ativan) 1 mg PRN Q4HRS PRN IV ANXIETY / AGITATION Last administered on 09/18/17 12:25; Start 09/18/17 at 12:15; Stop 09/18/17 at 13:34; Status DC Fentanyl Citrate (Fentanyl 2ml Vial) 50 mcg PRN Q2HR PRN IV PAIN Last administered on 09/19/17 04:09; Start 09/18/17 at 12:15 Lorazepam (Ativan) 2 mg PRN Q4HRS PRN IV ANXIETY / AGITATION Last administered on 09/20/17 17:29; Start 09/18/17 at 13:30 Quetiapine Fumarate (SEROquel) 25 mg HS PO Last administered on 09/18/17 21: 03; Start 09/18/17 at 21:00; Stop 09/19/17 at 10:35; Status DC Haloperidol Lactate (Haldol) 5 mg PRN Q12HRS PRN IVP AGITATION; Start at 13:45 Lorazepam (Ativan) 1 mg PRN Q4HRS PRN IV ANXIETY / AGITATION; Start 09/19/17 at 10:15; Stop 09/19/17 at 10:18; Status DC Lorazepam (Ativan) 4 mg 1X ONCE IV ; Start 09/19/17 at 10:30; Stop 09/19/17 at 10:31; Status DC Vancomycin HCl (Vanco Per Pharmacy) 1 each PRN DAILY PRN MC SEE COMMENTS Last administered on 09/19/17 15:21; Start 09/19/17 at 10:30 Piperacillin Sod/ Tazobactam Sod (Zosyn Per Pharmacy) 1 each PRN DAILY PRN MC SEE COMMENTS; Start 09/19/17 at 10:30 Vancomycin HCl 2 gm/Dextrose 500 ml @ 250 mls/hr 1X ONCE IV Last administered on 09/19/17 14:53; Start 09/19/17 at 11:00; Stop 09/19/17 at 12 :59; Status DC Piperacillin Sod/ Tazobactam Sod (Zosyn) 3.375 gm Q6HRS IVP Last administered on 09/21/17 05:42; Start 09/19/17 at 11:00 Budesonide (Pulmicort) 0.5 mg RTBID NEB Last administered on 09/21/17 07:51; Start 09/19/17 at 20:00 Budesonide (Pulmicort) 0.5 mg 1X ONCE NEB Last administered on 09/19/17 12: 50; Start 09/19/17 at 10:45; Stop 09/19/17 at 10:46; Status DC Pantoprazole Sodium (Protonix Vial) 40 mg DAILYAC IVP Last administered on 10:04; Start 09/19/17 at 11:30 Furosemide (Lasix) 40 mg DAILY IVP ; Start 09/19/17 at 11:00; Stop 09/20/17 at 13:20; Status DC Methylprednisolone Sodium Succinate (SOLU-Medrol 125MG VIAL) 125 mg 1X ONCE IV Last administered on 09/19/17 13:23; Start 09/19/17 at 10:45; Stop at 10:46; Status DC Prednisone (Prednisone) 40 mg DAILY PO ; Start 09/19/17 at 11:00; Stop at 09:02; Status DC Methylprednisolone Sodium Succinate (SOLU-Medrol 125MG VIAL) 125 mg Q8HRS IV Last administered on 09/21/17 05:42; Start 09/19/17 at 14:00 Midazolam HCl 100 ml @ 0 mls/hr CONT PRN IV SEE I/O RECORD; Start 09/19/17 at 11:00; Stop 09/19/17 at 12:51; Status DC Midazolam HCl (Versed) 5 mg 1X ONCE IV ; Start 09/19/17 at 11:00; Stop at 11:01; Status DC Fentanyl Citrate (Fentanyl 2ml Vial) 50 mcg 1X ONCE IV ; Start 09/19/17 at 11: 00; Stop 09/19/17 at 11:01; Status DC Midazolam HCl 100 ml @ As Directed STK-MED ONCE IV ; Start 09/19/17 at 10:55; Stop 09/19/17 at 10:56; Status DC Midazolam HCl (Versed) 5 mg STK-MED ONCE .ROUTE ; Start 09/19/17 at 10:55; Stop 09/19/17 at 10:56; Status DC Propofol 100 ml @ As Directed STK-MED ONCE IV ; Start 09/19/17 at 10:59; Stop 09/19/17 at 11:00; Status DC Norepinephrine Bitartrate 250 ml @ As Directed STK-MED ONCE IV ; Start at 10:59; Stop 09/19/17 at 11:00; Status DC Furosemide (Lasix) 20 mg 1X ONCE IVP ; Start 09/19/17 at 11:15; Stop at 11:16; Status DC Vecuronium [place] (Norcuron Bolus) 10 mg STK-MED ONCE IV ; Start 09/19/17 at 11:21; Stop 09/19/17 at 11:22; Status DC Fentanyl Citrate 30 ml @ 0 mls/hr CONT PRN IV PROTOCOL Last administered on 07:25; Start 09/19/17 at 11:30 Vecuronium [place] (Norcuron Bolus) 6 mg 1X ONCE IV Last administered on 09/19 11:42; Start 09/19/17 at 11:30; Stop 09/19/17 at 11:39; Status DC Propofol 10 ml @ 0 mls/hr 1X ONCE IV Last administered on 09/19/17 11:30; Start 09/19/17 at 11:30; Stop 09/19/17 at 11:39; Status DC Midazolam HCl 100 ml @ 0 mls/hr CONT PRN IV SEE I/O RECORD Last administered on 09/21/17 05:53; Start 09/19/17 at 11:30 Norepinephrine Bitartrate 250 ml @ 0 mls/hr CONT PRN IV SEE I/O RECORD Last administered on 09/21/17 02:10; Start 09/19/17 at 11:30 Succinylcholine Chloride ([place]ne[place]) 100 mg 1X ONCE IV Last administered on 11:42; Start 09/19/17 at 11:30; Stop 09/19/17 at 11:39; Status DC Sodium Bicarbonate 50 meq 1X ONCE IV Last administered on 09/19/17 13:23; Start 09/19/17 at 12:45; Stop 09/19/17 at 12:46; Status DC Sodium Bicarbonate 50 meq 1X ONCE IV Last administered on 09/19/17 13:23; Start 09/19/17 at 12:45; Stop 09/19/17 at 12:46; Status DC Lidocaine/Sodium Bicarbonate (Buffered Lidocaine 1%) 20 ml STK-MED ONCE IJ ; Start 09/19/17 at 13:34; Stop 09/19/17 at 13:35; Status DC Vecuronium [place] (Norcuron Bolus) 10 mg 1X ONCE IV Last administered on 15:05; Start 09/19/17 at 14:00; Stop 09/19/17 at 14:02; Status DC Lidocaine/Sodium Bicarbonate (Buffered Lidocaine 1%) 3 ml 1X ONCE IJ ; Start 09/19/17 at 14:45; Stop 09/19/17 at 14:46; Status DC Vancomycin HCl 1.25 gm/Dextrose 250 ml @ 166.667 mls/hr Q24H IV Last administered on 09/20/17 14:47; Start 09/20/17 at 15:00 Vancomycin HCl 1 each 1X ONCE MC ; Start 09/21/17 at 14:30; Stop 09/21/17 at 14:31 Azithromycin 500 mg/Sodium Chloride 250 ml @ 250 mls/hr Q24H IV Last administered on 09/20/17 16:37; Start 09/19/17 at 16:30 Norepinephrine Bitartrate (Levophed 8mg/ 250ml Premix Drip) 8 mg STK-MED ONCE IV ; Start 09/19/17 at 11:00; Stop 09/20/17 at 08:44; Status DC Midazolam HCl (Versed) 5 mg STK-MED ONCE .ROUTE ; Start 09/19/17 at 11:00; Stop 09/20/17 at 08:44; Status DC Amino Acids/ Glycerin/ Electrolytes 1,000 ml @ 80 mls/hr [id number] IV Last administered on 09/21/17 01:21; Start 09/20/17 at 10:00 Info 1 each PRN DAILY PRN MC SEE COMMENTS; Start 09/20/17 at 10:00; Stop at 12:14; Status DC Furosemide (Lasix) 20 mg 1X ONCE IVP Last administered on 09/20/17 10:21; Start 09/20/17 at 10:15; Stop 09/20/17 at 10:18; Status DC Info 1 each PRN DAILY PRN MC SEE COMMENTS; Start 09/20/17 at 11:00; Status UNV Vecuronium [place] (Norcuron Bolus) 10 mg 1X ONCE IV Last administered on t 12:03; Start 09/20/17 at 11:15; Stop 09/20/17 at 11:24; Status DC Atropine Sulfate 0.5 mg STK-MED ONCE .ROUTE ; Start 09/20/17 at 11:47; Stop at 11:48; Status DC Epinephrine HCl (EPINEPHrine SYRINGE) 1 mg STK-MED ONCE .ROUTE ; Start at 11:47; Stop 09/20/17 at 11:48; Status DC Active Scripts Active Reported Gabapentin 300 Mg Capsule 300 Mg PO TID Cymbalta (Duloxetine Hcl) 60 Mg Capsule.dr 1 Cap PO BID Hydrochlorothiazide Tablet (Hydrochlorothiazide) 25 Mg Tablet 1 Tab PO DAILY Xanax (Alprazolam) 1 Mg Tablet 1 Tab PO TID PRN Vitals/I & O Vital Sign - Last 24 Hours 09/20/17 09/20/17 09/20/17 09/20/17 10:00 10:15 11:00 11:22 Pulse 84 80 Resp 22 22 B/P (MAP) 113/67 (82) 109/68 (82) Pulse Ox 98 98 99 97 O2 Delivery Ventilator Ventilator Ventilator Ventilator 09/20/17 09/20/17 09/20/17 09/20/17 11:28 12:00 12:00 13:00 Temp 97.1 97.1 97.1 97.1 Pulse 82 92 86 Resp 22 22 22 B/P (MAP) 109/68 117/71 (86) 119/78 (92) Pulse Ox 100 97 O2 Delivery Ventilator Mechanical Ventilator Ventilator 09/20/17 09/20/17 09/20/17 09/20/17 13:09 14:00 14:30 15:00 Pulse 88 76 78 Resp 22 22 22 B/P (MAP) 121/74 (90) 100/58 (72) 97/61 (73) Pulse Ox 97 97 99 98 O2 Delivery Ventilator Ventilator Ventilator Ventilator 09/20/17 09/20/17 09/20/17 09/20/17 15:30 15:33 15:47 16:00 Pulse 84 Resp 22 22 B/P (MAP) 100/62 (75) Pulse Ox 98 97 98 O2 Delivery Ventilator Ventilator Ventilator Mechanical Ventilator 09/20/17 09/20/17 09/20/17 09/20/17 17:00 17:51 18:00 19:00 Pulse 83 82 77 Resp 22 22 22 B/P (MAP) 94/62 (73) 96/61 (73) 94/57 (69) Pulse Ox 97 98 98 98 O2 Delivery Ventilator Ventilator Ventilator 09/20/17 09/20/17 09/20/17 09/20/17 20:00 20:00 20:36 20:39 Temp 97.9 97.9 Pulse 78 Resp 22 B/P (MAP) 93/61 (72) Pulse Ox 96 96 96 O2 Delivery Ventilator Mechanical Ventilator Ventilator Ventilator 09/20/17 09/20/17 09/20/17 09/20/17 20:59 21:00 22:00 22:54 Pulse 78 89 Resp 22 22 22 B/P (MAP) 93/58 (70) 95/65 (75) Pulse Ox 96 96 92 96 O2 Delivery Ventilator Ventilator Ventilator Ventilator 09/20/17 09/20/17 09/20/17 09/21/17 23:00 23:59 23:59 01:00 Temp 98.0 98.0 Pulse 82 80 84 Resp 22 22 22 B/P (MAP) 90/57 (68) 91/59 (70) 95/60 (72) Pulse Ox 96 95 94 O2 Delivery Ventilator Mechanical Ventilator Ventilator Ventilator 09/21/17 09/21/17 09/21/17 09/21/17 01:24 02:00 02:12 02:42 Pulse 80 Resp 22 22 20 B/P (MAP) 96/58 (71) Pulse Ox 94 94 94 92 O2 Delivery Ventilator Ventilator Ventilator Ventilator O2 Flow Rate 55.0 60.0 09/21/17 09/21/17 09/21/17 09/21/17 03:00 03:31 04:00 04:00 Temp 98.5 98.5 Pulse 79 76 Resp 22 22 B/P (MAP) 96/67 (77) 94/64 (74) Pulse Ox 93 93 95 O2 Delivery Ventilator Ventilator Mechanical Ventilator Ventilator 09/21/17 09/21/17 09/21/17 09/21/17 05:00 06:00 06:03 07:25 Pulse 74 72 Resp 22 22 22 B/P (MAP) 90/61 (71) 104/66 (79) Pulse Ox 93 93 94 96 O2 Delivery Ventilator Ventilator Ventilator Ventilator 09/21/17 09/21/17 07:53 08:00 Pulse Ox 93 O2 Delivery Ventilator Mechanical Ventilator Intake and Output 09/20/17 09/20/17 09/21/17 15:00 23:00 07:00 Intake Total 100 ml 1002.5 ml 2079 ml Output Total 560 ml 295 ml 255 ml Balance -460 ml 707.5 ml 1824 ml ELLA ORTEGA MD Sep 21, 2017 09:10
--- NOTE | 2017-09-21 09:24 | PDOC ---
Objective: Objective: Per RN - tolerating tube feeds. Vital Signs: Vital Signs Date Time Temp Pulse Resp B/P (MAP) Pulse Ox O2 Delivery O2 Flow Rate FiO2 09/21/17 08:00 Mechanical Ventilator 09/21/17 07:53 93 09/21/17 07:25 22 09/21/17 06:00 72 104/66 (79) 09/21/17 04:00 98.5 98.5 09/21/17 02:42 60.0 Labs: Laboratory Tests Test 09/20/17 21:30 09/21/17 05:46 Glucose (Fingerstick) 178 mg/dL (70-99) 152 mg/dL (70-99) Imaging: CXR Impression: 1. Stable support lines and tubes 2. Stable diffuse interstitial and alveolar infiltrates. 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 Bronch IMPRESSION: 1. No evidence of any endobronchial lesions. 2. Mucosa appeared normal and no evidence of any purulent secretions. 3. No evidence of any milky white lavage that excludes alveolar proteinosis. 4. Bronchoalveolar lavage performed from the right middle lobe and lingula. It was minimally pinkish from the right middle lobe, but normal color on the lingula. It has been sent for appropriate studies and follow the results. PE: GEN: intubated LUNGS: vent HEART: RRR ABD: S/ND NEURO/PSYCH: sedated A/P: STUART -Hgb improved w/ transfusions, Venofer -colonoscopy last year w/ polyp, remote h/o EGD, daily NSAID use -on IV PPI, PPN, OG w/ tube feeds ARDS, s/p bronchoscopy Leukocytosis - worse -- Continue same per GI. SHAHLA FISHER Sep 21, 2017 09:24
[2017-09-21 09:58] LABS: HCO3 ABG 20 mmol/L (21-28); PCO2 ABG 32 mmHg (35-46); PH ABG 7.41 (7.35-7.45); PO2 ABG 75 mmHg (65-108); SAT O2 ABG 94 % (92-99)
[2017-09-21 10:12] LABS: FIO2 ABG 70
[2017-09-21] MEDS ORDERED: FUROSEMIDE 20 MG/2 ML VIAL. IVP SCH (11:15)
--- NOTE | 2017-09-21 11:20 | PDOC ---
PULMONARY PROGRESS NOTES Subjective AC mode, intubated 09/19, sedated low dose pressor Vitals Vital Signs Date Time Temp Pulse Resp B/P (MAP) Pulse Ox O2 Delivery O2 Flow Rate FiO2 09/21/17 09:50 94 Ventilator 09/21/17 08:00 22 09/21/17 06:00 72 104/66 (79) 09/21/17 04:00 98.5 98.5 09/21/17 02:42 60.0 Lungs: Other (decrease bs) Cardiovascular: S1 Abdomen: Soft Extremities: Other (1+EDEMA) Labs Laboratory Tests Test 09/19/17 12:06 09/19/17 12:35 09/19/17 17:00 09/20/17 06:15 O2 Saturation 97 % (92-99) Arterial Blood pH 7.25 (7.35-7.45) Arterial Blood pCO2 at Patient Temp 46 mmHg (35-46) Arterial Blood pO2 at Patient Temp 106 mmHg (65-108) Arterial Blood HCO3 20 mmol/L (21-28) Arterial Blood Base Excess -7 mmol/L (-3-3) FiO2 100 Influenza Type A Antigen Negative (NEGATIVE) Influenza Type B Antigen Negative (NEGATIVE) Body Fluid Culture (LAB) (.) Urine Legionella Antigen Negative (Negative) Streptococcus pneumoniae Antigen Negative (Negative) Organism Identification (LAB) (.) WILSON Specimen Source Urine (.) White Blood Count 17.3 x10^3/uL (4.0-11.0) Red Blood Count 3.35 x10^6/uL (3.50-5.40) Hemoglobin 7.9 g/dL (12.0-15.5) Hematocrit 25.7 % (36.0-47.0) Mean Corpuscular Volume 77 fL (79-100) Mean Corpuscular Hemoglobin 24 pg (25-35) Mean Corpuscular Hemoglobin Concent 31 g/dL (31-37) Red Cell Distribution Width 25.3 % (11.5-14.5) Platelet Count 402 x10^3/uL (140-400) Neutrophils (%) (Auto) 95 % (31-73) Lymphocytes (%) (Auto) 3 % (24-48) Monocytes (%) (Auto) 2 % (0-9) Eosinophils (%) (Auto) 0 % (0-3) Basophils (%) (Auto) 0 % (0-3) Neutrophils # (Auto) 16.4 x10^3uL (1.8-7.7) Lymphocytes # (Auto) 0.4 x10^3/uL (1.0-4.8) Monocytes # (Auto) 0.4 x10^3/uL (0.0-1.1) Eosinophils # (Auto) 0.0 x10^3/uL (0.0-0.7) Basophils # (Auto) 0.0 x10^3/uL (0.0-0.2) Sodium Level 147 mmol/L (136-145) Potassium Level 3.7 mmol/L (3.5-5.1) Chloride Level 109 mmol/L (98-107) Carbon Dioxide Level 21 mmol/L (21-32) Anion Gap 17 (6-14) Blood Urea Nitrogen 30 mg/dL (7-20) Creatinine 1.5 mg/dL (0.6-1.0) Estimated GFR (Cockcroft-Gault) 35.4 BUN/Creatinine Ratio 20 (6-20) Glucose Level 161 mg/dL (70-99) Calcium Level 9.1 mg/dL (8.5-10.1) Total Bilirubin 0.6 mg/dL (0.2-1.0) Aspartate Amino Transf (AST/SGOT) 25 U/L (15-37) Alanine Aminotransferase (ALT/SGPT) 12 U/L (14-59) Alkaline Phosphatase 82 U/L (46-116) Total Protein 6.3 g/dL (6.4-8.2) Albumin 2.2 g/dL (3.4-5.0) Albumin/Globulin Ratio 0.5 (1.0-1.7) Test 09/20/17 08:23 09/20/17 08:28 09/20/17 21:30 09/21/17 05:46 O2 Saturation 94 % (92-99) Arterial Blood pH 7.38 (7.35-7.45) Arterial Blood pCO2 at Patient Temp 35 mmHg (35-46) Arterial Blood pO2 at Patient Temp 82 mmHg (65-108) Arterial Blood HCO3 20 mmol/L (21-28) Arterial Blood Base Excess -5 mmol/L (-3-3) FiO2 60 Lactic Acid Level 1.1 mmol/L (0.4-2.0) Lactate Dehydrogenase 436 U/L (81-234) Procalcitonin 1.26 ng/mL (0.00-0.10) Glucose (Fingerstick) 178 mg/dL (70-99) 152 mg/dL (70-99) Test 09/21/17 05:50 09/21/17 08:00 09/21/17 09:30 White Blood Count 20.0 x10^3/uL (4.0-11.0) Red Blood Count 3.64 x10^6/uL (3.50-5.40) Hemoglobin 8.8 g/dL (12.0-15.5) Hematocrit 28.7 % (36.0-47.0) Mean Corpuscular Volume 79 fL (79-100) Mean Corpuscular Hemoglobin 24 pg (25-35) Mean Corpuscular Hemoglobin Concent 31 g/dL (31-37) Red Cell Distribution Width 23.6 % (11.5-14.5) Platelet Count 348 x10^3/uL (140-400) Neutrophils (%) (Auto) 96 % (31-73) Lymphocytes (%) (Auto) 1 % (24-48) Monocytes (%) (Auto) 3 % (0-9) Eosinophils (%) (Auto) 0 % (0-3) Basophils (%) (Auto) 0 % (0-3) Neutrophils # (Auto) 19.1 x10^3uL (1.8-7.7) Lymphocytes # (Auto) 0.2 x10^3/uL (1.0-4.8) Monocytes # (Auto) 0.5 x10^3/uL (0.0-1.1) Eosinophils # (Auto) 0.0 x10^3/uL (0.0-0.7) Basophils # (Auto) 0.1 x10^3/uL (0.0-0.2) Sodium Level 146 mmol/L (136-145) Potassium Level 4.2 mmol/L (3.5-5.1) Chloride Level 111 mmol/L (98-107) Carbon Dioxide Level 25 mmol/L (21-32) Anion Gap 10 (6-14) Blood Urea Nitrogen 46 mg/dL (7-20) Creatinine 1.5 mg/dL (0.6-1.0) Estimated GFR (Cockcroft-Gault) 35.4 BUN/Creatinine Ratio 31 (6-20) Glucose Level 173 mg/dL (70-99) Calcium Level 9.2 mg/dL (8.5-10.1) Phosphorus Level 3.9 mg/dL (2.6-4.7) Magnesium Level 2.6 mg/dL (1.8-2.4) Total Bilirubin 0.3 mg/dL (0.2-1.0) Aspartate Amino Transf (AST/SGOT) 105 U/L (15-37) Alanine Aminotransferase (ALT/SGPT) 79 U/L (14-59) Alkaline Phosphatase 78 U/L (46-116) Total Protein 5.9 g/dL (6.4-8.2) Albumin 2.1 g/dL (3.4-5.0) Albumin/Globulin Ratio 0.6 (1.0-1.7) O2 Saturation 87 % (92-99) 94 % (92-99) Arterial Blood pH 7.35 (7.35-7.45) 7.41 (7.35-7.45) Arterial Blood pCO2 at Patient Temp 39 mmHg (35-46) 32 mmHg (35-46) Arterial Blood pO2 at Patient Temp 60 mmHg (65-108) 75 mmHg (65-108) Arterial Blood HCO3 21 mmol/L (21-28) 20 mmol/L (21-28) Arterial Blood Base Excess -4 mmol/L (-3-3) -4 mmol/L (-3-3) FiO2 65 70 Laboratory Tests Test 09/20/17 21:30 09/21/17 05:46 09/21/17 05:50 09/21/17 08:00 Glucose (Fingerstick) 178 mg/dL (70-99) 152 mg/dL (70-99) White Blood Count 20.0 x10^3/uL (4.0-11.0) Red Blood Count 3.64 x10^6/uL (3.50-5.40) Hemoglobin 8.8 g/dL (12.0-15.5) Hematocrit 28.7 % (36.0-47.0) Mean Corpuscular Volume 79 fL (79-100) Mean Corpuscular Hemoglobin 24 pg (25-35) Mean Corpuscular Hemoglobin Concent 31 g/dL (31-37) Red Cell Distribution Width 23.6 % (11.5-14.5) Platelet Count 348 x10^3/uL (140-400) Neutrophils (%) (Auto) 96 % (31-73) Lymphocytes (%) (Auto) 1 % (24-48) Monocytes (%) (Auto) 3 % (0-9) Eosinophils (%) (Auto) 0 % (0-3) Basophils (%) (Auto) 0 % (0-3) Neutrophils # (Auto) 19.1 x10^3uL (1.8-7.7) Lymphocytes # (Auto) 0.2 x10^3/uL (1.0-4.8) Monocytes # (Auto) 0.5 x10^3/uL (0.0-1.1) Eosinophils # (Auto) 0.0 x10^3/uL (0.0-0.7) Basophils # (Auto) 0.1 x10^3/uL (0.0-0.2) Sodium Level 146 mmol/L (136-145) Potassium Level 4.2 mmol/L (3.5-5.1) Chloride Level 111 mmol/L (98-107) Carbon Dioxide Level 25 mmol/L (21-32) Anion Gap 10 (6-14) Blood Urea Nitrogen 46 mg/dL (7-20) Creatinine 1.5 mg/dL (0.6-1.0) Estimated GFR (Cockcroft-Gault) 35.4 BUN/Creatinine Ratio 31 (6-20) Glucose Level 173 mg/dL (70-99) Calcium Level 9.2 mg/dL (8.5-10.1) Phosphorus Level 3.9 mg/dL (2.6-4.7) Magnesium Level 2.6 mg/dL (1.8-2.4) Total Bilirubin 0.3 mg/dL (0.2-1.0) Aspartate Amino Transf (AST/SGOT) 105 U/L (15-37) Alanine Aminotransferase (ALT/SGPT) 79 U/L (14-59) Alkaline Phosphatase 78 U/L (46-116) Total Protein 5.9 g/dL (6.4-8.2) Albumin 2.1 g/dL (3.4-5.0) Albumin/Globulin Ratio 0.6 (1.0-1.7) O2 Saturation 87 % (92-99) Arterial Blood pH 7.35 (7.35-7.45) Arterial Blood pCO2 at Patient Temp 39 mmHg (35-46) Arterial Blood pO2 at Patient Temp 60 mmHg (65-108) Arterial Blood HCO3 21 mmol/L (21-28) Arterial Blood Base Excess -4 mmol/L (-3-3) FiO2 65 Test 09/21/17 09:30 O2 Saturation 94 % (92-99) Arterial Blood pH 7.41 (7.35-7.45) Arterial Blood pCO2 at Patient Temp 32 mmHg (35-46) Arterial Blood pO2 at Patient Temp 75 mmHg (65-108) Arterial Blood HCO3 20 mmol/L (21-28) Arterial Blood Base Excess -4 mmol/L (-3-3) FiO2 70 Medications Active Scripts Medications Dose Route/Sig Max Daily Dose Days Date Category Gabapentin 300 Mg Capsule 300 Mg PO TID 09/18/17 Reported Cymbalta (Duloxetine Hcl) 60 Mg Capsule.dr 1 Cap PO BID 09/18/17 Reported Hydrochlorothiazide Tablet (Hydrochlorothiazide) 25 Mg Tablet 1 Tab PO DAILY 09/17/17 Reported Xanax (Alprazolam) 1 Mg Tablet 1 Tab PO TID PRN 09/17/17 Reported Comments CXR 09/21 mild improvement in infiltrates bases Impression . 1. Acute hypoxic respiratory failure in a patient who is a smoker and has a significant anemia with a hemoglobin of 5.0 on admission and also has extensive interstitial infiltrates, more on the right than on the left and a small basal pleural effusion. Differential diagnosis would include the following: A. Acute Interstitial atypical pneumonia ?diffuse viral pneumonia/ ARDS/? diffuse vasculitis (high sed rate) B. Anemia without any obvious blood loss contributing to patient's respiratory failure. C. Anemic heart failure, although clinically less likely. D. Unlikely transfusion related acute lung injury as the symptoms began before the transfusion. E. ? diffuse vasculitis/ high sed rate/ 2. Anemia, microcytic ,needs further workup. Possibility of myelodysplastic syndrome should be a consideration; GI follow up to rule out any gastrointestinal source. ? vasculitis 3. She has had long history of tobacco use, suspect underlying chronic obstructive pulmonary disease. 4. Increase azotemia, steroid effect vs volume depletion( now on low dose pressor) Plan . 1. Max sedation/ prn paralysis 2. AC mode/ high PEEP. Continue to titrate oxygen to keep saturations 92% to 94 %, now on 55%FIO2 3. Continue broad-spectrum antibiotics. Influenza screen neg 4. CT chest with diffuse parenchymal GG infiltrates, small effusions. ? etiology ,s/p Bronch. clean airway. follow cultures 5. Hold diuretics at present. effusions could be from low oncotic pressure. normal EF, moderate AI, increase azotemia. try volume with colloids 6. Hematology following for workup of anemia. 7. GI for workup of anemia. 8. high dose steroids/ high sed rate 9. TX PRBC prn 10. Discussed with RN and .Pt is critically ill cct 30 min JORGE LEDESMA MD Sep 21, 2017 11:20
[2017-09-21] MEDS: PANTOPRAZOLE IV PUSH 40 MG VIAL. IVP SCH (11:26)
--- NOTE | 2017-09-21 11:29 | PDOC ---
Renal-Progress Notes Subjective Notes Notes INTUBATED History of Present Illness Hx of present illness STABLE Vitals Vitals Vital Signs Date Time Temp Pulse Resp B/P (MAP) Pulse Ox O2 Delivery O2 Flow Rate FiO2 09/21/17 11:01 89 Ventilator 09/21/17 08:00 22 09/21/17 06:00 72 104/66 (79) 09/21/17 04:00 98.5 98.5 09/21/17 02:42 60.0 Weight Weight [ ] I.O. Intake and Output Intake and Output 09/21/17 07:00 Intake Total 3181.5 ml Output Total 1145 ml Balance 2036.5 ml Intake Oral 0 ml IV Total 2155.5 ml Tube Feeding 726 ml Blood Product IV Normal Saline Flush 100 ml Other 200 ml Output Urine Total 1145 ml Gastric Drainage Total 0 ml Labs Labs Laboratory Tests Test 09/20/17 21:30 09/21/17 05:46 09/21/17 05:50 09/21/17 08:00 Glucose (Fingerstick) 178 mg/dL (70-99) 152 mg/dL (70-99) White Blood Count 20.0 x10^3/uL (4.0-11.0) Red Blood Count 3.64 x10^6/uL (3.50-5.40) Hemoglobin 8.8 g/dL (12.0-15.5) Hematocrit 28.7 % (36.0-47.0) Mean Corpuscular Volume 79 fL (79-100) Mean Corpuscular Hemoglobin 24 pg (25-35) Mean Corpuscular Hemoglobin Concent 31 g/dL (31-37) Red Cell Distribution Width 23.6 % (11.5-14.5) Platelet Count 348 x10^3/uL (140-400) Neutrophils (%) (Auto) 96 % (31-73) Lymphocytes (%) (Auto) 1 % (24-48) Monocytes (%) (Auto) 3 % (0-9) Eosinophils (%) (Auto) 0 % (0-3) Basophils (%) (Auto) 0 % (0-3) Neutrophils # (Auto) 19.1 x10^3uL (1.8-7.7) Lymphocytes # (Auto) 0.2 x10^3/uL (1.0-4.8) Monocytes # (Auto) 0.5 x10^3/uL (0.0-1.1) Eosinophils # (Auto) 0.0 x10^3/uL (0.0-0.7) Basophils # (Auto) 0.1 x10^3/uL (0.0-0.2) Sodium Level 146 mmol/L (136-145) Potassium Level 4.2 mmol/L (3.5-5.1) Chloride Level 111 mmol/L (98-107) Carbon Dioxide Level 25 mmol/L (21-32) Anion Gap 10 (6-14) Blood Urea Nitrogen 46 mg/dL (7-20) Creatinine 1.5 mg/dL (0.6-1.0) Estimated GFR (Cockcroft-Gault) 35.4 BUN/Creatinine Ratio 31 (6-20) Glucose Level 173 mg/dL (70-99) Calcium Level 9.2 mg/dL (8.5-10.1) Phosphorus Level 3.9 mg/dL (2.6-4.7) Magnesium Level 2.6 mg/dL (1.8-2.4) Total Bilirubin 0.3 mg/dL (0.2-1.0) Aspartate Amino Transf (AST/SGOT) 105 U/L (15-37) Alanine Aminotransferase (ALT/SGPT) 79 U/L (14-59) Alkaline Phosphatase 78 U/L (46-116) Total Protein 5.9 g/dL (6.4-8.2) Albumin 2.1 g/dL (3.4-5.0) Albumin/Globulin Ratio 0.6 (1.0-1.7) O2 Saturation 87 % (92-99) Arterial Blood pH 7.35 (7.35-7.45) Arterial Blood pCO2 at Patient Temp 39 mmHg (35-46) Arterial Blood pO2 at Patient Temp 60 mmHg (65-108) Arterial Blood HCO3 21 mmol/L (21-28) Arterial Blood Base Excess -4 mmol/L (-3-3) FiO2 65 Test 09/21/17 09:30 O2 Saturation 94 % (92-99) Arterial Blood pH 7.41 (7.35-7.45) Arterial Blood pCO2 at Patient Temp 32 mmHg (35-46) Arterial Blood pO2 at Patient Temp 75 mmHg (65-108) Arterial Blood HCO3 20 mmol/L (21-28) Arterial Blood Base Excess -4 mmol/L (-3-3) FiO2 70 Micro Micro Microbiology 09/17/17 Blood Culture - Preliminary, Resulted NO GROWTH AFTER 3 DAYS 09/20/17 Gram Stain - Final, Complete Review of Systems Constitutional: yes: unresponsive Musculoskeletal: Yes: muscle atrophy Physical Exam General Appearance: mild distress Skin: warm Respiratory: decreased breath sounds Heart: S1S2, RRR Abdomen: soft, bowel sounds present Genitourinary: bladder flat Extremities: pulses present, atrophy Neurology: follow commands, other (intubated) Assessment Assessment IMP CHF PNEUMONIA RESP FAILURE-ARDS ANEMIA PROB COPD GEO-ATN-CR OF 1.5 POSSIBLE CKD STAGE 3-BASELINE CR NOT KNOWN RESP FAILURE PLAN ANTIBIOTICS ANEMIA WORK UP PPN AND TF TOLERATED OFF LASIX NOW LABS IN AM D/W DILLON HUNT MD Sep 21, 2017 11:29
[2017-09-21] MEDS ORDERED: ALBUMIN HUMAN 5% 250 ML IV ONE ×2 (11:30)
[2017-09-21] MEDS: MICAFUNGIN 100 MG in IV DEXTROSE 5% 100 ML IV SCH (11:36)
--- NOTE | 2017-09-21 13:25 | PDOC ---
CARDIO Progress Notes Date and Time Date of Service 09/21/2017 Time of Evaluation 1130 Subjective Subjective: Other (intubated) Vitals Vitals Vital Signs Date Time Temp Pulse Resp B/P (MAP) Pulse Ox O2 Delivery O2 Flow Rate FiO2 09/21/17 12:18 24 92 Ventilator 09/21/17 06:00 72 104/66 (79) 09/21/17 04:00 98.5 98.5 09/21/17 02:42 60.0 Weight Weight [ ] Input and Output Intake and Output Intake and Output 09/21/17 07:00 Intake Total 3181.5 ml Output Total 1145 ml Balance 2036.5 ml Intake Oral 0 ml IV Total 2155.5 ml Tube Feeding 726 ml Blood Product IV Normal Saline Flush 100 ml Other 200 ml Output Urine Total 1145 ml Gastric Drainage Total 0 ml Laboratory Labs Laboratory Tests Test 09/20/17 21:30 09/21/17 05:46 09/21/17 05:50 09/21/17 08:00 Glucose (Fingerstick) 178 mg/dL (70-99) 152 mg/dL (70-99) White Blood Count 20.0 x10^3/uL (4.0-11.0) Red Blood Count 3.64 x10^6/uL (3.50-5.40) Hemoglobin 8.8 g/dL (12.0-15.5) Hematocrit 28.7 % (36.0-47.0) Mean Corpuscular Volume 79 fL (79-100) Mean Corpuscular Hemoglobin 24 pg (25-35) Mean Corpuscular Hemoglobin Concent 31 g/dL (31-37) Red Cell Distribution Width 23.6 % (11.5-14.5) Platelet Count 348 x10^3/uL (140-400) Neutrophils (%) (Auto) 96 % (31-73) Lymphocytes (%) (Auto) 1 % (24-48) Monocytes (%) (Auto) 3 % (0-9) Eosinophils (%) (Auto) 0 % (0-3) Basophils (%) (Auto) 0 % (0-3) Neutrophils # (Auto) 19.1 x10^3uL (1.8-7.7) Lymphocytes # (Auto) 0.2 x10^3/uL (1.0-4.8) Monocytes # (Auto) 0.5 x10^3/uL (0.0-1.1) Eosinophils # (Auto) 0.0 x10^3/uL (0.0-0.7) Basophils # (Auto) 0.1 x10^3/uL (0.0-0.2) Sodium Level 146 mmol/L (136-145) Potassium Level 4.2 mmol/L (3.5-5.1) Chloride Level 111 mmol/L (98-107) Carbon Dioxide Level 25 mmol/L (21-32) Anion Gap 10 (6-14) Blood Urea Nitrogen 46 mg/dL (7-20) Creatinine 1.5 mg/dL (0.6-1.0) Estimated GFR (Cockcroft-Gault) 35.4 BUN/Creatinine Ratio 31 (6-20) Glucose Level 173 mg/dL (70-99) Calcium Level 9.2 mg/dL (8.5-10.1) Phosphorus Level 3.9 mg/dL (2.6-4.7) Magnesium Level 2.6 mg/dL (1.8-2.4) Total Bilirubin 0.3 mg/dL (0.2-1.0) Aspartate Amino Transf (AST/SGOT) 105 U/L (15-37) Alanine Aminotransferase (ALT/SGPT) 79 U/L (14-59) Alkaline Phosphatase 78 U/L (46-116) Total Protein 5.9 g/dL (6.4-8.2) Albumin 2.1 g/dL (3.4-5.0) Albumin/Globulin Ratio 0.6 (1.0-1.7) O2 Saturation 87 % (92-99) Arterial Blood pH 7.35 (7.35-7.45) Arterial Blood pCO2 at Patient Temp 39 mmHg (35-46) Arterial Blood pO2 at Patient Temp 60 mmHg (65-108) Arterial Blood HCO3 21 mmol/L (21-28) Arterial Blood Base Excess -4 mmol/L (-3-3) FiO2 65 Test 09/21/17 09:30 O2 Saturation 94 % (92-99) Arterial Blood pH 7.41 (7.35-7.45) Arterial Blood pCO2 at Patient Temp 32 mmHg (35-46) Arterial Blood pO2 at Patient Temp 75 mmHg (65-108) Arterial Blood HCO3 20 mmol/L (21-28) Arterial Blood Base Excess -4 mmol/L (-3-3) FiO2 70 Microbiology Micro Microbiology 09/17/17 Blood Culture - Preliminary, Resulted NO GROWTH AFTER 3 DAYS 09/20/17 Gram Stain - Final, Complete Review of Systems Constitutional: yes: unresponsive Musculoskeletal: Yes: muscle atrophy Physical Exam HEENT: Neck Supple W Full Motion Chest: Symmetric LUNGS: Other (intubated with mechanical vent, basilar crackles) Heart: S1S2, RRR (SR with PACs), murmurs (3-4/6 systolic murmur to apical border), other (distant heart sounds) Abdomen: Other (soft) Extremities: No Edema, No Calf Tenderness Neurology: follow commands, other (intubated) Other Exams skin is warm to touch Assessment Assessment 1. Acute respiratory failure with CAP/ARDS: intubated. pulmonary following. 2. Hypoxic/metabolic encephalopathy 3. Microcytic hypochromic anemia: No obvious source so far. GI and Hemoc following. Post transfusion with Hgb steady at 8.8 4. Acute diastolic CHF: imposed by pulmonary issues and anemia. 5. GEO: nephrology following 6. Chronic NSAID use: routine use of 800 mg of advil bid 7. HTN: low end but controlled 8. AECOPD with tobaccoism 9. Protein malnutrition 10. Valvular insufficiency: mild TR PAP 38 mmHg and moderate MR. Recommendations 1. Continue with current regimen 2. No lasix today. Agree with albumin. Lasix PRN. 3. Vasopressor to titrate as warranted. 4. Will follow along peripherally KELVIN ALFARO APRN Sep 21, 2017 13:25
[2017-09-21] MEDS ORDERED: VECURONIUM BOLUS 10 MG VIAL. IV PRN (15:00)
--- NOTE | 2017-09-21 15:25 | PDOC ---
PROGRESS NOTES Chief Complaint Chief Complaint pneumonia, RML opacity, cough and dyspnea, and now bilateral opacity acute hypoxic respiratory failure consistent with ARDS, possible underlying COPD sepsis, severe sepsis, anemia, acute on chronic, w. sepsis tobaccoism, anxiety d/o, can awaken easily History of Present Illness History of Present Illness intubated, some difficulty maintaining sedation, marked hypoxia overnight, any movement causes hypoxia, trying to wean down 02 as able ID and PULM consult following her is here daily pt too unstable to transfer , cont current Vitals Vitals Vital Signs Date Time Temp Pulse Resp B/P (MAP) Pulse Ox O2 Delivery O2 Flow Rate FiO2 09/21/17 15:10 92 Ventilator 09/21/17 12:50 22 09/21/17 06:00 72 104/66 (79) 09/21/17 04:00 98.5 98.5 09/21/17 02:42 60.0 Physical Exam General: No acute distress Heart: Normal S1, Normal S2 Lungs: Other (decrease bs) Abdomen: Normal bowel sounds, Soft, No hepatosplenomegaly Extremities: No clubbing, No edema, Normal pulses Skin: No breakdown, No significant lesion Labs LABS Laboratory Tests Test 09/20/17 21:30 09/21/17 05:46 09/21/17 05:50 09/21/17 08:00 Glucose (Fingerstick) 178 mg/dL (70-99) 152 mg/dL (70-99) White Blood Count 20.0 x10^3/uL (4.0-11.0) Red Blood Count 3.64 x10^6/uL (3.50-5.40) Hemoglobin 8.8 g/dL (12.0-15.5) Hematocrit 28.7 % (36.0-47.0) Mean Corpuscular Volume 79 fL (79-100) Mean Corpuscular Hemoglobin 24 pg (25-35) Mean Corpuscular Hemoglobin Concent 31 g/dL (31-37) Red Cell Distribution Width 23.6 % (11.5-14.5) Platelet Count 348 x10^3/uL (140-400) Neutrophils (%) (Auto) 96 % (31-73) Lymphocytes (%) (Auto) 1 % (24-48) Monocytes (%) (Auto) 3 % (0-9) Eosinophils (%) (Auto) 0 % (0-3) Basophils (%) (Auto) 0 % (0-3) Neutrophils # (Auto) 19.1 x10^3uL (1.8-7.7) Lymphocytes # (Auto) 0.2 x10^3/uL (1.0-4.8) Monocytes # (Auto) 0.5 x10^3/uL (0.0-1.1) Eosinophils # (Auto) 0.0 x10^3/uL (0.0-0.7) Basophils # (Auto) 0.1 x10^3/uL (0.0-0.2) Sodium Level 146 mmol/L (136-145) Potassium Level 4.2 mmol/L (3.5-5.1) Chloride Level 111 mmol/L (98-107) Carbon Dioxide Level 25 mmol/L (21-32) Anion Gap 10 (6-14) Blood Urea Nitrogen 46 mg/dL (7-20) Creatinine 1.5 mg/dL (0.6-1.0) Estimated GFR (Cockcroft-Gault) 35.4 BUN/Creatinine Ratio 31 (6-20) Glucose Level 173 mg/dL (70-99) Calcium Level 9.2 mg/dL (8.5-10.1) Phosphorus Level 3.9 mg/dL (2.6-4.7) Magnesium Level 2.6 mg/dL (1.8-2.4) Total Bilirubin 0.3 mg/dL (0.2-1.0) Aspartate Amino Transf (AST/SGOT) 105 U/L (15-37) Alanine Aminotransferase (ALT/SGPT) 79 U/L (14-59) Alkaline Phosphatase 78 U/L (46-116) Total Protein 5.9 g/dL (6.4-8.2) Albumin 2.1 g/dL (3.4-5.0) Albumin/Globulin Ratio 0.6 (1.0-1.7) O2 Saturation 87 % (92-99) Arterial Blood pH 7.35 (7.35-7.45) Arterial Blood pCO2 at Patient Temp 39 mmHg (35-46) Arterial Blood pO2 at Patient Temp 60 mmHg (65-108) Arterial Blood HCO3 21 mmol/L (21-28) Arterial Blood Base Excess -4 mmol/L (-3-3) FiO2 65 Test 11/17/17 09:30 O2 Saturation 94 % (92-99) Arterial Blood pH 7.41 (7.35-7.45) Arterial Blood pCO2 at Patient Temp 32 mmHg (35-46) Arterial Blood pO2 at Patient Temp 75 mmHg (65-108) Arterial Blood HCO3 20 mmol/L (21-28) Arterial Blood Base Excess -4 mmol/L (-3-3) FiO2 70 Assessment and Plan Assessmemt and Plan Problems Medical Problems: (1) Dyspnea Status: Acute (2) Hypoalbuminemia Status: Acute (3) Metabolic acidosis Status: Acute (4) Pneumonia Status: Acute Problems: Comment Review of Relevant I have reviewed the following items tha (where applicable) has been applied. Labs Laboratory Tests Test 09/19/17 17:00 09/20/17 06:15 09/20/17 08:23 09/20/17 08:28 Body Fluid Culture (LAB) (.) Urine Legionella Antigen Negative (Negative) Streptococcus pneumoniae Antigen Negative (Negative) Organism Identification (LAB) (.) WILSON Specimen Source Urine (.) White Blood Count 17.3 x10^3/uL (4.0-11.0) Red Blood Count 3.35 x10^6/uL (3.50-5.40) Hemoglobin 7.9 g/dL (12.0-15.5) Hematocrit 25.7 % (36.0-47.0) Mean Corpuscular Volume 77 fL (79-100) Mean Corpuscular Hemoglobin 24 pg (25-35) Mean Corpuscular Hemoglobin Concent 31 g/dL (31-37) Red Cell Distribution Width 25.3 % (11.5-14.5) Platelet Count 402 x10^3/uL (140-400) Neutrophils (%) (Auto) 95 % (31-73) Lymphocytes (%) (Auto) 3 % (24-48) Monocytes (%) (Auto) 2 % (0-9) Eosinophils (%) (Auto) 0 % (0-3) Basophils (%) (Auto) 0 % (0-3) Neutrophils # (Auto) 16.4 x10^3uL (1.8-7.7) Lymphocytes # (Auto) 0.4 x10^3/uL (1.0-4.8) Monocytes # (Auto) 0.4 x10^3/uL (0.0-1.1) Eosinophils # (Auto) 0.0 x10^3/uL (0.0-0.7) Basophils # (Auto) 0.0 x10^3/uL (0.0-0.2) Sodium Level 147 mmol/L (136-145) Potassium Level 3.7 mmol/L (3.5-5.1) Chloride Level 109 mmol/L (98-107) Carbon Dioxide Level 21 mmol/L (21-32) Anion Gap 17 (6-14) Blood Urea Nitrogen 30 mg/dL (7-20) Creatinine 1.5 mg/dL (0.6-1.0) Estimated GFR (Cockcroft-Gault) 35.4 BUN/Creatinine Ratio 20 (6-20) Glucose Level 161 mg/dL (70-99) Calcium Level 9.1 mg/dL (8.5-10.1) Total Bilirubin 0.6 mg/dL (0.2-1.0) Aspartate Amino Transf (AST/SGOT) 25 U/L (15-37) Alanine Aminotransferase (ALT/SGPT) 12 U/L (14-59) Alkaline Phosphatase 82 U/L (46-116) Total Protein 6.3 g/dL (6.4-8.2) Albumin 2.2 g/dL (3.4-5.0) Albumin/Globulin Ratio 0.5 (1.0-1.7) O2 Saturation 94 % (92-99) Arterial Blood pH 7.38 (7.35-7.45) Arterial Blood pCO2 at Patient Temp 35 mmHg (35-46) Arterial Blood pO2 at Patient Temp 82 mmHg (65-108) Arterial Blood HCO3 20 mmol/L (21-28) Arterial Blood Base Excess -5 mmol/L (-3-3) FiO2 60 Lactic Acid Level 1.1 mmol/L (0.4-2.0) Lactate Dehydrogenase 436 U/L (81-234) Procalcitonin 1.26 ng/mL (0.00-0.10) Test 09/20/17 21:30 09/21/17 05:46 09/21/17 05:50 09/21/17 08:00 Glucose (Fingerstick) 178 mg/dL (70-99) 152 mg/dL (70-99) White Blood Count 20.0 x10^3/uL (4.0-11.0) Red Blood Count 3.64 x10^6/uL (3.50-5.40) Hemoglobin 8.8 g/dL (12.0-15.5) Hematocrit 28.7 % (36.0-47.0) Mean Corpuscular Volume 79 fL (79-100) Mean Corpuscular Hemoglobin 24 pg (25-35) Mean Corpuscular Hemoglobin Concent 31 g/dL (31-37) Red Cell Distribution Width 23.6 % (11.5-14.5) Platelet Count 348 x10^3/uL (140-400) Neutrophils (%) (Auto) 96 % (31-73) Lymphocytes (%) (Auto) 1 % (24-48) Monocytes (%) (Auto) 3 % (0-9) Eosinophils (%) (Auto) 0 % (0-3) Basophils (%) (Auto) 0 % (0-3) Neutrophils # (Auto) 19.1 x10^3uL (1.8-7.7) Lymphocytes # (Auto) 0.2 x10^3/uL (1.0-4.8) Monocytes # (Auto) 0.5 x10^3/uL (0.0-1.1) Eosinophils # (Auto) 0.0 x10^3/uL (0.0-0.7) Basophils # (Auto) 0.1 x10^3/uL (0.0-0.2) Sodium Level 146 mmol/L (136-145) Potassium Level 4.2 mmol/L (3.5-5.1) Chloride Level 111 mmol/L (98-107) Carbon Dioxide Level 25 mmol/L (21-32) Anion Gap 10 (6-14) Blood Urea Nitrogen 46 mg/dL (7-20) Creatinine 1.5 mg/dL (0.6-1.0) Estimated GFR (Cockcroft-Gault) 35.4 BUN/Creatinine Ratio 31 (6-20) Glucose Level 173 mg/dL (70-99) Calcium Level 9.2 mg/dL (8.5-10.1) Phosphorus Level 3.9 mg/dL (2.6-4.7) Magnesium Level 2.6 mg/dL (1.8-2.4) Total Bilirubin 0.3 mg/dL (0.2-1.0) Aspartate Amino Transf (AST/SGOT) 105 U/L (15-37) Alanine Aminotransferase (ALT/SGPT) 79 U/L (14-59) Alkaline Phosphatase 78 U/L (46-116) Total Protein 5.9 g/dL (6.4-8.2) Albumin 2.1 g/dL (3.4-5.0) Albumin/Globulin Ratio 0.6 (1.0-1.7) O2 Saturation 87 % (92-99) Arterial Blood pH 7.35 (7.35-7.45) Arterial Blood pCO2 at Patient Temp 39 mmHg (35-46) Arterial Blood pO2 at Patient Temp 60 mmHg (65-108) Arterial Blood HCO3 21 mmol/L (21-28) Arterial Blood Base Excess -4 mmol/L (-3-3) FiO2 65 Test 09/21/17 09:30 O2 Saturation 94 % (92-99) Arterial Blood pH 7.41 (7.35-7.45) Arterial Blood pCO2 at Patient Temp 32 mmHg (35-46) Arterial Blood pO2 at Patient Temp 75 mmHg (65-108) Arterial Blood HCO3 20 mmol/L (21-28) Arterial Blood Base Excess -4 mmol/L (-3-3) FiO2 70 Laboratory Tests Test 09/20/17 21:30 09/21/17 05:46 09/21/17 05:50 09/21/17 08:00 Glucose (Fingerstick) 178 mg/dL (70-99) 152 mg/dL (70-99) White Blood Count 20.0 x10^3/uL (4.0-11.0) Red Blood Count 3.64 x10^6/uL (3.50-5.40) Hemoglobin 8.8 g/dL (12.0-15.5) Hematocrit 28.7 % (36.0-47.0) Mean Corpuscular Volume 79 fL (79-100) Mean Corpuscular Hemoglobin 24 pg (25-35) Mean Corpuscular Hemoglobin Concent 31 g/dL (31-37) Red Cell Distribution Width 23.6 % (11.5-14.5) Platelet Count 348 x10^3/uL (140-400) Neutrophils (%) (Auto) 96 % (31-73) Lymphocytes (%) (Auto) 1 % (24-48) Monocytes (%) (Auto) 3 % (0-9) Eosinophils (%) (Auto) 0 % (0-3) Basophils (%) (Auto) 0 % (0-3) Neutrophils # (Auto) 19.1 x10^3uL (1.8-7.7) Lymphocytes # (Auto) 0.2 x10^3/uL (1.0-4.8) Monocytes # (Auto) 0.5 x10^3/uL (0.0-1.1) Eosinophils # (Auto) 0.0 x10^3/uL (0.0-0.7) Basophils # (Auto) 0.1 x10^3/uL (0.0-0.2) Sodium Level 146 mmol/L (136-145) Potassium Level 4.2 mmol/L (3.5-5.1) Chloride Level 111 mmol/L (98-107) Carbon Dioxide Level 25 mmol/L (21-32) Anion Gap 10 (6-14) Blood Urea Nitrogen 46 mg/dL (7-20) Creatinine 1.5 mg/dL (0.6-1.0) Estimated GFR (Cockcroft-Gault) 35.4 BUN/Creatinine Ratio 31 (6-20) Glucose Level 173 mg/dL (70-99) Calcium Level 9.2 mg/dL (8.5-10.1) Phosphorus Level 3.9 mg/dL (2.6-4.7) Magnesium Level 2.6 mg/dL (1.8-2.4) Total Bilirubin 0.3 mg/dL (0.2-1.0) Aspartate Amino Transf (AST/SGOT) 105 U/L (15-37) Alanine Aminotransferase (ALT/SGPT) 79 U/L (14-59) Alkaline Phosphatase 78 U/L (46-116) Total Protein 5.9 g/dL (6.4-8.2) Albumin 2.1 g/dL (3.4-5.0) Albumin/Globulin Ratio 0.6 (1.0-1.7) O2 Saturation 87 % (92-99) Arterial Blood pH 7.35 (7.35-7.45) Arterial Blood pCO2 at Patient Temp 39 mmHg (35-46) Arterial Blood pO2 at Patient Temp 60 mmHg (65-108) Arterial Blood HCO3 21 mmol/L (21-28) Arterial Blood Base Excess -4 mmol/L (-3-3) FiO2 65 Test 09/21/17 09:30 O2 Saturation 94 % (92-99) Arterial Blood pH 7.41 (7.35-7.45) Arterial Blood pCO2 at Patient Temp 32 mmHg (35-46) Arterial Blood pO2 at Patient Temp 75 mmHg (65-108) Arterial Blood HCO3 20 mmol/L (21-28) Arterial Blood Base Excess -4 mmol/L (-3-3) FiO2 70 Microbiology 09/17/17 Blood Culture - Preliminary, Resulted NO GROWTH AFTER 3 DAYS 09/20/17 Bronchial Culture - Preliminary, Resulted 09/20/17 Lower Resp Culture Result 1 (WILSON) - Preliminary, Resulted Medications Current Medications Sodium Chloride 1,000 ml @ 125 mls/hr 1X ONCE IV Last administered on 15:54; Start 09/17/17 at 15:15; Stop 09/17/17 at 23:14; Status DC Ondansetron HCl (Zofran) 4 mg PRN Q8HRS PRN IV NAUSEA/VOMITING; Start at 16:30; Stop 09/18/17 at 16:29; Status DC Ceftriaxone Sodium 50 ml @ 0 mls/hr 1X ONCE IV Last administered on 17:33; Start 09/17/17 at 16:45; Stop 09/17/17 at 16:46; Status DC Azithromycin 250 ml @ 250 mls/hr 1X ONCE IV Last administered on 09/17/17 22:38; Start 09/17/17 at 16:30; Stop 09/17/17 at 17:29; Status DC Albuterol/ Ipratropium (Duoneb) 3 ml 1X ONCE NEB Last administered on 17:00; Start 09/17/17 at 16:45; Stop 09/17/17 at 16:46; Status DC Potassium Chloride (Klor-Con) 40 meq 1X ONCE PO Last administered on 16:57; Start 09/17/17 at 16:45; Stop 09/17/17 at 16:46; Status DC Azithromycin (Zithromax) 250 mg DAILY PO Last administered on 09/18/17 10:25 ; Start 09/18/17 at 09:00; Stop 09/19/17 at 10:30; Status DC Ceftriaxone Sodium 1 gm/ Dextrose 50 ml @ 100 mls/hr Q24H IV ; Start 09/17/17 at 17:15; Status UNV Albuterol/ Ipratropium (Duoneb) 3 ml Q4HRS NEB Last administered on 09/21/17 15:10; Start 09/17/17 at 20:00 Ceftriaxone Sodium (Rocephin) 1 gm Q24H IVP Last administered on 09/18/17 17: 55; Start 09/18/17 at 16:00; Stop 09/19/17 at 10:30; Status DC Guaifenesin (Robitussin Dm) 10 ml PRN Q6HRS PRN PO COUGH; Start 09/17/17 at 17 :15 Sodium Chloride 1,000 ml @ 125 mls/hr 1X ONCE IV Last administered on 17:45; Start 09/17/17 at 17:15; Stop 09/17/17 at 22:12; Status DC Info (Do NOT chart on this placeholder) 1 each 1X ONCE MC ; Start 09/17/17 at 19:00; Stop 09/17/17 at 19:01; Status UNV Influenza Virus Vaccine Quadrival (Fluarix Quad [id number] Syringe) 0.5 ml ONCE ONCE VAX IM ; Start 09/17/17 at 21:00; Stop 09/17/17 at 21:01; Status DC Sodium Chloride 1,000 ml @ 130 mls/hr 1X ONCE IV Last administered on 22:31; Start 09/17/17 at 22:30; Stop 09/18/17 at 06:11; Status DC Sodium Bicarbonate 50 meq 1X ONCE IV Last administered on 09/17/17 22:31; Start 09/17/17 at 22:30; Stop 09/17/17 at 22:31; Status DC Alprazolam (Xanax) 1 mg PRN TID PRN PO ANXIETY Last administered on 09/19/17 02:19; Start 09/17/17 at 22:30 Furosemide (Lasix) 20 mg 1X ONCE IVP Last administered on 09/18/17 06:24; Start 09/18/17 at 06:30; Stop 09/18/17 at 06:31; Status DC Potassium Chloride (Klor-Con) 40 meq 1X ONCE PO Last administered on 10:25; Start 09/18/17 at 09:00; Stop 09/18/17 at 09:01; Status DC Iron Sucrose 500 mg/Sodium Chloride 275 ml @ 78.571 mls/ hr 1X ONCE IV Last administered on 09/18/17 10:24; Start 09/18/17 at 09:00; Stop 09/18/17 at 12 :29; Status DC Furosemide (Lasix) 20 mg 1X ONCE IVP Last administered on 09/18/17 10:30; Start 09/18/17 at 10:00; Stop 09/18/17 at 10:22; Status DC Pantoprazole Sodium (Protonix) 40 mg DAILYAC PO Last administered on 10:47; Start 09/18/17 at 11:00; Stop 09/19/17 at 13:41; Status DC Furosemide (Lasix) 20 mg 1X ONCE IVP Last administered on 09/18/17 10:47; Start 09/18/17 at 10:45; Stop 09/18/17 at 10:46; Status DC Potassium Chloride (Klor-Con) 40 meq 1X ONCE PO ; Start 09/18/17 at 11:45; Stop 09/18/17 at 11:46; Status DC Oxycodone/ Acetaminophen (Percocet 5/325) 1 tab PRN Q6HRS PRN PO PAIN Last administered on 09/18/17 13:23; Start 09/18/17 at 12:15 Lorazepam (Ativan) 1 mg PRN Q4HRS PRN IV ANXIETY / AGITATION Last administered on 09/18/17 12:25; Start 09/18/17 at 12:15; Stop 09/18/17 at 13:34; Status DC Fentanyl Citrate (Fentanyl 2ml Vial) 50 mcg PRN Q2HR PRN IV PAIN Last administered on 09/19/17 04:09; Start 09/18/17 at 12:15 Lorazepam (Ativan) 2 mg PRN Q4HRS PRN IV ANXIETY / AGITATION Last administered on 09/20/17 17:29; Start 09/18/17 at 13:30 Quetiapine Fumarate (SEROquel) 25 mg HS PO Last administered on 09/18/17 21: 03; Start 09/18/17 at 21:00; Stop 09/19/17 at 10:35; Status DC Haloperidol Lactate (Haldol) 5 mg PRN Q12HRS PRN IVP AGITATION; Start at 13:45 Lorazepam (Ativan) 1 mg PRN Q4HRS PRN IV ANXIETY / AGITATION; Start 09/19/17 at 10:15; Stop 09/19/17 at 10:18; Status DC Lorazepam (Ativan) 4 mg 1X ONCE IV ; Start 09/19/17 at 10:30; Stop 09/19/17 at 10:31; Status DC Vancomycin HCl (Vanco Per Pharmacy) 1 each PRN DAILY PRN MC SEE COMMENTS Last administered on 09/19/17 15:21; Start 09/19/17 at 10:30 Piperacillin Sod/ Tazobactam Sod (Zosyn Per Pharmacy) 1 each PRN DAILY PRN MC SEE COMMENTS; Start 09/19/17 at 10:30 Vancomycin HCl 2 gm/Dextrose 500 ml @ 250 mls/hr 1X ONCE IV Last administered on 09/19/17 14:53; Start 09/19/17 at 11:00; Stop 09/19/17 at 12 :59; Status DC Piperacillin Sod/ Tazobactam Sod (Zosyn) 3.375 gm Q6HRS IVP Last administered on 09/21/17 11:27; Start 09/19/17 at 11:00 Budesonide (Pulmicort) 0.5 mg RTBID NEB Last administered on 09/21/17 07:51; Start 09/19/17 at 20:00 Budesonide (Pulmicort) 0.5 mg 1X ONCE NEB Last administered on 09/19/17 12: 50; Start 09/19/17 at 10:45; Stop 09/19/17 at 10:46; Status DC Pantoprazole Sodium (Protonix Vial) 40 mg DAILYAC IVP Last administered on 11:26; Start 09/19/17 at 11:30 Furosemide (Lasix) 40 mg DAILY IVP ; Start 09/19/17 at 11:00; Stop 09/20/17 at 13:20; Status DC Methylprednisolone Sodium Succinate (SOLU-Medrol 125MG VIAL) 125 mg 1X ONCE IV Last administered on 09/19/17t 13:23; Start 09/19/17 at 10:45; Stop at 10:46; Status DC Prednisone (Prednisone) 40 mg DAILY PO ; Start 09/19/17 at 11:00; Stop at 09:02; Status DC Methylprednisolone Sodium Succinate (SOLU-Medrol 125MG VIAL) 125 mg Q8HRS IV Last administered on 09/21/17t 05:42; Start 09/19/17 at 14:00 Midazolam HCl 100 ml @ 0 mls/hr CONT PRN IV SEE I/O RECORD; Start 09/19/17 at 11:00; Stop 09/19/17 at 12:51; Status DC Midazolam HCl (Versed) 5 mg 1X ONCE IV ; Start 09/19/17 at 11:00; Stop at 11:01; Status DC Fentanyl Citrate (Fentanyl 2ml Vial) 50 mcg 1X ONCE IV ; Start 09/19/17 at 11: 00; Stop 09/19/17 at 11:01; Status DC Midazolam HCl 100 ml @ As Directed STK-MED ONCE IV ; Start 09/19/17 at 10:55; Stop 09/19/17 at 10:56; Status DC Midazolam HCl (Versed) 5 mg STK-MED ONCE .ROUTE ; Start 09/19/17 at 10:55; Stop 09/19/17 at 10:56; Status DC Propofol 100 ml @ As Directed STK-MED ONCE IV ; Start 09/19/17 at 10:59; Stop 09/19/17 at 11:00; Status DC Norepinephrine Bitartrate 250 ml @ As Directed STK-MED ONCE IV ; Start at 10:59; Stop 09/19/17 at 11:00; Status DC Furosemide (Lasix) 20 mg 1X ONCE IVP ; Start 09/19/17 at 11:15; Stop at 11:16; Status DC Vecuronium Eastman (Norcuron Bolus) 10 mg STK-MED ONCE IV ; Start 09/19/17 at 11:21; Stop 09/19/17 at 11:22; Status DC Fentanyl Citrate 30 ml @ 0 mls/hr CONT PRN IV PROTOCOL Last administered on 12:18; Start 09/19/17 at 11:30 Vecuronium Eastman (Norcuron Bolus) 6 mg 1X ONCE IV Last administered on 09/19 11:42; Start 09/19/17 at 11:30; Stop 09/19/17 at 11:39; Status DC Propofol 10 ml @ 0 mls/hr 1X ONCE IV Last administered on 09/19/17 11:30; Start 09/19/17 at 11:30; Stop 09/19/17 at 11:39; Status DC Midazolam HCl 100 ml @ 0 mls/hr CONT PRN IV SEE I/O RECORD Last administered on 09/21/17 14:54; Start 09/19/17 at 11:30 Norepinephrine Bitartrate 250 ml @ 0 mls/hr CONT PRN IV SEE I/O RECORD Last administered on 09/21/17 02:10; Start 09/19/17 at 11:30 Succinylcholine Chloride (Anectine) 100 mg 1X ONCE IV Last administered on 11:42; Start 09/19/17 at 11:30; Stop 09/19/17 at 11:39; Status DC Sodium Bicarbonate 50 meq 1X ONCE IV Last administered on 09/19/17 13:23; Start 09/19/17 at 12:45; Stop 09/19/17 at 12:46; Status DC Sodium Bicarbonate 50 meq 1X ONCE IV Last administered on 09/19/17 13:23; Start 09/19/17 at 12:45; Stop 09/19/17 at 12:46; Status DC Lidocaine/Sodium Bicarbonate (Buffered Lidocaine 1%) 20 ml STK-MED ONCE IJ ; Start 09/19/17 at 13:34; Stop 09/19/17 at 13:35; Status DC Vecuronium Eastman (Norcuron Bolus) 10 mg 1X ONCE IV Last administered on 15:05; Start 09/19/17 at 14:00; Stop 09/19/17 at 14:02; Status DC Lidocaine/Sodium Bicarbonate (Buffered Lidocaine 1%) 3 ml 1X ONCE IJ ; Start 09/19/17 at 14:45; Stop 09/19/17 at 14:46; Status DC Vancomycin HCl 1.25 gm/Dextrose 250 ml @ 166.667 mls/hr Q24H IV Last administered on 09/20/17 14:47; Start 09/20/17 at 15:00 Vancomycin HCl 1 each 1X ONCE MC ; Start 09/21/17 at 14:30; Stop 09/21/17 at 14:31; Status DC Azithromycin 500 mg/Sodium Chloride 250 ml @ 250 mls/hr Q24H IV Last administered on 09/20/17 16:37; Start 09/19/17 at 16:30 Norepinephrine Bitartrate (Levophed 8mg/ 250ml Premix Drip) 8 mg STK-MED ONCE IV ; Start 09/19/17 at 11:00; Stop 09/20/17 at 08:44; Status DC Midazolam HCl (Versed) 5 mg STK-MED ONCE .ROUTE ; Start 09/19/17 at 11:00; Stop 09/20/17 at 08:44; Status DC Amino Acids/ Glycerin/ Electrolytes 1,000 ml @ 80 mls/hr [id number] IV Last administered on 09/21/17 01:21; Start 09/20/17 at 10:00 Info 1 each PRN DAILY PRN MC SEE COMMENTS; Start 09/20/17 at 10:00; Stop at 12:14; Status DC Furosemide (Lasix) 20 mg 1X ONCE IVP Last administered on 09/20/17 10:21; Start 09/20/17 at 10:15; Stop 09/20/17 at 10:18; Status DC Info 1 each PRN DAILY PRN MC SEE COMMENTS; Start 09/20/17 at 11:00; Status UNV Vecuronium Eastman (Norcuron Bolus) 10 mg 1X ONCE IV Last administered on 12:03; Start 09/20/17 at 11:15; Stop 09/20/17 at 11:24; Status DC Atropine Sulfate 0.5 mg STK-MED ONCE .ROUTE ; Start 09/20/17 at 11:47; Stop at 11:48; Status DC Epinephrine HCl (EPINEPHrine SYRINGE) 1 mg STK-MED ONCE .ROUTE ; Start at 11:47; Stop 09/20/17 at 11:48; Status DC Atropine Sulfate 0.5 mg STK-MED ONCE .ROUTE ; Start 09/20/17 at 12:00; Stop at 09:11; Status DC Epinephrine HCl (EPINEPHrine SYRINGE) 1 mg STK-MED ONCE .ROUTE ; Start at 12:00; Stop 09/21/17 at 09:11; Status DC Furosemide (Lasix) 20 mg DAILY IVP ; Start 09/21/17 at 11:15; Stop 09/21/17 at 11:20; Status DC Lorazepam (Ativan) 1 mg PRN Q1HR PRN IV ANXIETY / AGITATION Last administered on 09/21/17 14:54; Start 09/21/17 at 11:15 Albumin Human 250 ml @ 62.5 mls/hr 1X ONCE IV Last administered on 11:57; Start 09/21/17 at 11:30; Stop 09/21/17 at 15:29 Albumin Human 250 ml @ 62.5 mls/hr 1X ONCE IV Last administered on 14:29; Start 09/21/17 at 11:30; Stop 09/21/17 at 15:29 Micafungin Sodium 100 mg/Dextrose 100 ml @ 100 mls/hr Q24H IV Last administered on 09/21/17 11:36; Start 09/21/17 at 12:00 Vecuronium Eastman (Norcuron Bolus) 4 mg PRN Q4HRS PRN IV AGITATION; Start at 15:00 Dexmedetomidine HCl 200 mcg/ Sodium Chloride 50 ml @ 0 mls/hr CONT PRN IV PER PROTOCOL; Start 09/21/17 at 15:30 Sodium Chloride 500 ml @ 500 mls/hr 1X PRN PRN IV SEE COMMENTS; Start at 15:30 Atropine Sulfate 0.5 mg PRN Q5MIN PRN IV SEE COMMENTS; Start 09/21/17 at 15:30 Active Scripts Active Reported Gabapentin 300 Mg Capsule 300 Mg PO TID Cymbalta (Duloxetine Hcl) 60 Mg Capsule. 1 Cap PO BID Hydrochlorothiazide Tablet (Hydrochlorothiazide) 25 Mg Tablet 1 Tab PO DAILY Xanax (Alprazolam) 1 Mg Tablet 1 Tab PO TID PRN Vitals/I & O Vital Sign - Last 24 Hours 11/16/17 11/16/17 11/16/17 11/16/17 15:30 15:33 15:47 16:00 Pulse 84 Resp 22 22 B/P (MAP) 100/62 (75) Pulse Ox 98 97 98 O2 Delivery Ventilator Ventilator Ventilator Mechanical Ventilator 09/20/17 09/20/17 09/20/17 09/20/17 17:00 17:51 18:00 19:00 Pulse 83 82 77 Resp 22 22 22 B/P (MAP) 94/62 (73) 96/61 (73) 94/57 (69) Pulse Ox 97 98 98 98 O2 Delivery Ventilator Ventilator Ventilator 09/20/17 09/20/17 09/20/17 09/20/17 20:00 20:00 20:36 20:39 Temp 97.9 97.9 Pulse 78 Resp 22 B/P (MAP) 93/61 (72) Pulse Ox 96 96 96 O2 Delivery Ventilator Mechanical Ventilator Ventilator Ventilator 09/20/17 09/20/17 09/20/17 09/20/17 20:59 21:00 22:00 22:54 Pulse 78 89 Resp 22 22 22 B/P (MAP) 93/58 (70) 95/65 (75) Pulse Ox 96 96 92 96 O2 Delivery Ventilator Ventilator Ventilator Ventilator 09/20/17 09/20/17 09/20/17 09/21/17 23:00 23:59 23:59 01:00 Temp 98.0 98.0 Pulse 82 80 84 Resp 22 22 22 B/P (MAP) 90/57 (68) 91/59 (70) 95/60 (72) Pulse Ox 96 95 94 O2 Delivery Ventilator Mechanical Ventilator Ventilator Ventilator 09/21/17 09/21/17 09/21/17 09/21/17 01:24 02:00 02:12 02:42 Pulse 80 Resp 22 22 B/P (MAP) 96/58 (71) Pulse Ox 94 94 94 O2 Delivery Ventilator Ventilator Ventilator O2 Flow Rate 55.0 60.0 09/21/17 09/21/17 09/21/17 09/21/17 03:00 03:31 04:00 04:00 Temp 98.5 98.5 Pulse 79 76 Resp 22 22 B/P (MAP) 96/67 (77) 94/64 (74) Pulse Ox 93 93 95 O2 Delivery Ventilator Ventilator Mechanical Ventilator Ventilator 09/21/17 09/21/17 09/21/17 09/21/17 05:00 06:00 06:03 07:25 Pulse 74 72 Resp 22 22 22 B/P (MAP) 90/61 (71) 104/66 (79) Pulse Ox 93 93 94 96 O2 Delivery Ventilator Ventilator Ventilator Ventilator 09/21/17 09/21/17 09/21/17 09/21/17 07:53 08:00 09:50 11:01 Pulse Ox 93 94 89 O2 Delivery Ventilator Mechanical Ventilator Ventilator Ventilator 09/21/17 09/21/17 09/21/17 09/21/17 12:00 12:18 12:50 14:23 Resp 24 22 Pulse Ox 92 94 93 O2 Delivery Mechanical Ventilator Ventilator Ventilator Ventilator 09/21/17 15:10 Pulse Ox 92 O2 Delivery Ventilator Intake and Output 09/20/17 09/20/17 09/21/17 15:00 23:00 07:00 Intake Total 100 ml 1002.5 ml 2079 ml Output Total 560 ml 295 ml 290 ml Balance -460 ml 707.5 ml 1789 ml ABELARDO MOORE MD Sep 21, 2017 15:25
[2017-09-21] MEDS ORDERED: ATROPINE 0.5 MG/5 ML DISP.SYRIN. IV PRN (15:30)
[2017-09-21] MEDS ORDERED: IV NORMAL SALINE 500ML BAG 500 ML IV PRN (15:30)
[2017-09-21] MEDS ORDERED: DEXMEDETOMIDINE 200 MCG in IV NORMAL SALINE 50ML 48 ML IV PRN (15:30)
[2017-09-21] MEDS: VANCOMYCIN PER PHARMACY MC PRN (16:34)
[2017-09-21] MEDS: AZITHROMYCIN 500 MG in IV NORMAL SALINE 250ML 250 ML IV SCH (16:52)
[2017-09-21] MEDS: VANCOMYCIN 1.25 GM in IV DEXTROSE 5% 250 ML IV SCH (18:04)
[2017-09-22] VITALS (27 sets, daily range): BP systolic 90–141; BP diastolic 55–93
[2017-09-22] MEDS: PIPERACILLIN/TAZO IV Push 3.375 GM VIAL. IVP SCH ×4 (01:55→17:30)
[2017-09-22] MEDS: IPRATRPIUM/ALBUTEROL 0.5/2.5MG 3 ML NEBU. NEB SCH ×7 (02:09→23:19)
[2017-09-22] MEDS: MIDAZOLAM 100MG/100ML PREMIX 100 ML IV PRN ×3 (05:46→18:22)
[2017-09-22] MEDS: methylPREDNISolone SOD SUCC PF 125 MG/2 ML VIAL. IV SCH ×3 (06:03→22:05)
[2017-09-22 06:25] LABS: CREATININE 1.6 mg/dL (0.6-1.0); GFR 32.9; POTASSIUM 4.3 mmol/L (3.5-5.1)
[2017-09-22] MEDS: PANTOPRAZOLE IV PUSH 40 MG VIAL. IVP SCH (07:19)
[2017-09-22] MEDS: BUDESONIDE 0.5 MG/2 ML NEBU. NEB SCH ×2 (08:42→19:52)
--- NOTE | 2017-09-22 08:46 | PDOC ---
SUBJECTIVE ROS GEO + CKD remains on the vent - sedated and intubated, no overnite evemts OBJECTIVE Vital Signs Vital Signs Date Time Temp Pulse Resp B/P (MAP) Pulse Ox O2 Delivery O2 Flow Rate FiO2 09/22/17 08:07 22 96 Ventilator 09/22/17 07:00 75 115/70 (85) 09/22/17 04:00 98.2 98.2 I & 0 Intake and Output 09/22/17 06:59 Intake Total 3125.40 ml Output Total 1040 ml Balance 2085.40 ml IV Total 2350.40 ml Tube Feeding 775 ml Output Urine Total 1040 ml Gastric Drainage Total 0 ml PHYSICAL EXAM Physical Exam GEN: SEdated and intubated In no distress EYES: Sclera anicteric, Conjunctiva Normal EN: No EN Drainage, Mucous Membranes moist NECK: no JVD, + JVP, Supple, no Thyromegaly CVS: S1S2, min Murmur, No Gallop, No Rub,+ Edema RESP: ? Rales, no Rhonchi,no Acc. Muscle Use GI: BS + ve, NO Bruit, Non Tender, Non Distended : no CVA tenderness, no Suprapubic Tenderness DIAGNOSIS/ASSESSMENT Assessment & Plan GEO-ATN ? - Current fluid and E-lyte status does not necessitate emergent need for dialysis. Will re-evaluate for dialysis in the am ; Creat is stable, chck US and Mag - 3 Renal scan ? Analgesic Nephropahty - NSAID use noted Possible CKD due to NSAID use - check US. UA is benign SEVERE ANEMIA - defer to Dr Celeste SEPSIS with PNEUMONIA and ? ARDS - defer to Pulm and ID MILD HYPERVOLEMIA - IV lasix Edema - restart Lasix Discussed Plan of Care with family/ and Dr Conley at bedside Problems: COMMENT/RELEVANT DATA Meds Current Medications Medications (Trade) Dose Ordered Sig/[place] Start Time Stop Time Status Last Admin Dose Admin Albumin Human 250 ml @ 62.5 mls/hr 1X ONCE 09/21/17 11:30 09/21/17 15:29 DC 09/21/17 14:29 62.5 MLS/HR Albuterol/ Ipratropium (Duoneb) 3 ml Q4HRS 09/17/17 20:00 09/22/17 04:08 3 ML Alprazolam (Xanax) 1 mg PRN TID PRN 09/17/17 22:30 09/19/17 02:19 1 MG Amino Acids/ Glycerin/ Electrolytes 1,000 ml @ 80 mls/hr [id number] 09/20/17 10:00 09/22/17 07:02 DC 09/21/17 01:21 80 MLS/HR Atropine Sulfate 0.5 mg PRN Q5MIN PRN 09/21/17 15:30 Azithromycin (Zithromax) 250 mg DAILY 09/18/17 09:00 09/19/17 10:30 DC 09/18/17 10:25 250 MG Azithromycin 500 mg/Sodium Chloride 250 ml @ 250 mls/hr Q24H 09/19/17 16:30 09/21/17 16:52 250 MLS/HR Budesonide (Pulmicort) 0.5 mg 1X ONCE 09/19/17 10:45 09/19/17 10:46 DC 09/19/17 12:50 0.5 MG Ceftriaxone Sodium 1 gm/ Dextrose 50 ml @ 100 mls/hr Q24H 09/17/17 17:15 UNV Ceftriaxone Sodium (Rocephin) 1 gm Q24H 09/18/17 16:00 09/19/17 10:30 DC 09/18/17 17:55 1 GM Dexmedetomidine HCl 200 mcg/ Sodium Chloride 50 ml @ 0 mls/hr CONT PRN 09/21/17 15:30 09/21/17 15:54 3.6 MLS/HR Epinephrine HCl (EPINEPHrine SYRINGE) 1 mg STK-MED ONCE 09/20/17 12:00 09/21/17 09:11 DC Fentanyl Citrate 30 ml @ 0 mls/hr CONT PRN 09/19/17 11:30 09/22/17 08:07 4.95 MLS/HR Fentanyl Citrate (Fentanyl 2ml Vial) 50 mcg 1X ONCE 09/19/17 11:00 09/19/17 11:01 DC Furosemide (Lasix) 20 mg DAILY 09/21/17 11:15 09/21/17 11:20 DC Guaifenesin (Robitussin Dm) 10 ml PRN Q6HRS PRN 09/17/17 17:15 Haloperidol Lactate (Haldol) 5 mg PRN Q12HRS PRN 09/18/17 13:45 Influenza Virus Vaccine Quadrival (Fluarix Quad 0890-2894 Syringe) 0.5 ml ONCE ONCE 09/17/17 21:00 09/17/17 21:01 DC Info 1 each PRN DAILY PRN 09/20/17 11:00 UNV Info (Do NOT chart on this placeholder) 1 each 1X ONCE 09/17/17 19:00 09/17/17 19:01 UNV Iron Sucrose 500 mg/Sodium Chloride 275 ml @ 78.571 mls/ hr 1X ONCE 09/18/17 09:00 09/18/17 12:29 DC 09/18/17 10:24 78.571 MLS/HR Lidocaine/Sodium Bicarbonate (Buffered Lidocaine 1%) 3 ml 1X ONCE 09/19/17 14:45 09/19/17 14:46 DC Lorazepam (Ativan) 1 mg PRN Q1HR PRN 09/21/17 11:15 09/22/17 01:49 1 MG Methylprednisolone Sodium Succinate (SOLU-Medrol 125MG VIAL) 125 mg Q8HRS 09/19/17 14:00 09/22/17 06:03 125 MG Micafungin Sodium 100 mg/Dextrose 100 ml @ 100 mls/hr Q24H 09/21/17 12:00 09/21/17 11:36 100 MLS/HR Midazolam HCl (Versed) 5 mg STK-MED ONCE 09/19/17 11:00 09/20/17 08:44 DC Norepinephrine Bitartrate (Levophed 8mg/ 250ml Premix Drip) 8 mg STK-MED ONCE 09/19/17 11:00 09/20/17 08:44 DC Ondansetron HCl (Zofran) 4 mg PRN Q8HRS PRN 09/17/17 16:30 09/18/17 16:29 DC Oxycodone/ Acetaminophen (Percocet 5/325) 1 tab PRN Q6HRS PRN 09/18/17 12:15 09/18/17 13:23 1 TAB Pantoprazole Sodium (Protonix Vial) 40 mg DAILYAC 09/19/17 11:30 09/22/17 07:19 40 MG Pantoprazole Sodium (Protonix) 40 mg DAILYAC 09/18/17 11:00 09/19/17 13:41 DC 09/18/17 10:47 40 MG Piperacillin Sod/ Tazobactam Sod (Zosyn Per Pharmacy) 1 each PRN DAILY PRN 09/19/17 10:30 Piperacillin Sod/ Tazobactam Sod (Zosyn) 3.375 gm Q6HRS 09/19/17 11:00 09/22/17 06:03 3.375 GM Potassium Chloride (Klor-Con) 40 meq 1X ONCE 09/18/17 11:45 09/18/17 11:46 DC Prednisone (Prednisone) 40 mg DAILY 09/19/17 11:00 09/20/17 09:02 DC Propofol 100 ml @ 0 mls/hr CONT PRN 09/21/17 16:45 Quetiapine Fumarate (SEROquel) 25 mg HS 09/18/17 21:00 09/19/17 10:35 DC 09/18/17 21:03 25 MG Sodium Bicarbonate 50 meq 1X ONCE 09/19/17 12:45 09/19/17 12:46 DC 09/19/17 13:23 50 MEQ Sodium Chloride 500 ml @ 500 mls/hr 1X PRN PRN 09/21/17 15:30 Succinylcholine Chloride (Anectine) 100 mg 1X ONCE 09/19/17 11:30 09/19/17 11:39 DC 09/19/17 11:42 100 MG Vancomycin HCl 1 each 1X ONCE 09/21/17 14:30 09/21/17 14:31 DC 09/21/17 14:30 1 EACH Vancomycin HCl (Vanco Per Pharmacy) 1 each PRN DAILY PRN 09/19/17 10:30 09/21/17 16:34 1 EACH Vancomycin HCl 1.25 gm/Dextrose 250 ml @ 166.667 mls/hr Q24H 09/20/17 15:00 09/21/17 18:04 166.667 MLS/HR Vancomycin HCl 2 gm/Dextrose 500 ml @ 250 mls/hr 1X ONCE 09/19/17 11:00 09/19/17 12:59 DC 09/19/17 14:53 250 MLS/HR Vecuronium [place] (Norcuron Bolus) 4 mg PRN Q4HRS PRN 09/21/17 15:00 Lab Laboratory Tests Test 09/21/17 09:30 09/21/17 15:40 09/22/17 05:50 O2 Saturation 94 % (92-99) Arterial Blood pH 7.41 (7.35-7.45) Arterial Blood pCO2 at Patient Temp 32 mmHg (35-46) Arterial Blood pO2 at Patient Temp 75 mmHg (65-108) Arterial Blood HCO3 20 mmol/L (21-28) Arterial Blood Base Excess -4 mmol/L (-3-3) FiO2 70 Vancomycin Level Trough 14.8 mcg/mL (10.0-20.0) Vancomycin Last Dose Date 09/20/17 Vancomycin Last Dose Time 1500 Sodium Level 145 mmol/L (136-145) Potassium Level 4.3 mmol/L (3.5-5.1) Chloride Level 111 mmol/L (98-107) Carbon Dioxide Level 24 mmol/L (21-32) Anion Gap 10 (6-14) Blood Urea Nitrogen 53 mg/dL (7-20) Creatinine 1.6 mg/dL (0.6-1.0) Estimated GFR (Cockcroft-Gault) 32.9 Glucose Level 185 mg/dL (70-99) Calcium Level 9.0 mg/dL (8.5-10.1) ARCADIO RODRIGUEZ MD Sep 22, 2017 08:46
--- NOTE | 2017-09-22 08:48 | RAD ---
AP PORTABLE CHEST Clinical Indication: ARDS/RF 108. Comparison: AP chest, prior day. Findings: Endotracheal tube tip is 3.2 cm superior to the radha. Enteric tube remains in the stomach. Right subclavian central line, tip in upper right atrium. Cardiac mediastinal silhouette is stable. Bilateral interstitial and alveolar opacities are worse in the left mid and upper lung, otherwise stable. Probable small bilateral pleural effusions. No pneumothorax. Bones appear stable. IMPRESSION: 1. Stable life support devices. 2. Diffuse interstitial and alveolar opacities, worse in the left mid and upper lung. 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
[2017-09-22 08:57] LABS: HCO3 ABG 17 mmol/L (21-28); PCO2 ABG 32 mmHg (35-46); PH ABG 7.35 (7.35-7.45); PO2 ABG 77 mmHg (65-108); SAT O2 ABG 93 % (92-99)
[2017-09-22 08:57] LABS: BASO % 0 % (0-3); EOS % 0 % (0-3); HEMATOCRIT 30.4 % (36.0-47.0); HEMOGLOBIN 8.9 g/dL (12.0-15.5); LYMPH # 0.5 x10^3/uL (1.0-4.8); LYMPH % 3 % (24-48); MEAN CORPUSCULAR HEMOGLOBIN 24 pg (25-35); MEAN CORPUSCULAR HGB CONC 29 g/dL (31-37); MEAN CORPUSCULAR VOLUME 82 fL (79-100); MONO % 3 % (0-9); NEUT % 94 % (31-73); PLATELET COUNT 330 x10^3/uL (140-400); RED BLOOD COUNT 3.69 x10^6/uL (3.50-5.40)
[2017-09-22 09:15] LABS: FIO2 ABG 80
--- NOTE | 2017-09-22 09:54 | PDOC ---
PROGRESS NOTES Chief Complaint Chief Complaint pneumonia, RML opacity, cough and dyspnea, and now bilateral opacity acute hypoxic respiratory failure consistent with ARDS, requiring 80% Fi02 to maintain, PEEP 10 possible underlying COPD sepsis, severe sepsis, anemia, acute on chronic, w. sepsis tobaccoism, anxiety d/o, can awaken easily History of Present Illness History of Present Illness intubated, some difficulty maintaining sedation, marked hypoxia overnight, any movement causes hypoxia, trying to wean down 02 as able her is here daily, I reviewed labs, cultures, and showed his the CXR history, now the left side looks more cloudy, the prior RML may be a little improved over 5 days, Vitals Vitals Vital Signs Date Time Temp Pulse Resp B/P (MAP) Pulse Ox O2 Delivery O2 Flow Rate FiO2 09/22/17 08:40 22 96 Ventilator 09/22/17 07:00 75 115/70 (85) 09/22/17 04:00 98.2 98.2 Physical Exam General: No acute distress Heart: Normal S1, Normal S2 Lungs: Other (decrease bs) Abdomen: Normal bowel sounds, Soft, No hepatosplenomegaly Extremities: No clubbing, No edema, Normal pulses Skin: No breakdown, No significant lesion Labs LABS Laboratory Tests Test 09/21/17 15:40 09/22/17 05:00 09/22/17 05:50 09/22/17 08:50 Vancomycin Level Trough 14.8 mcg/mL (10.0-20.0) Vancomycin Last Dose Date 09/20/17 Vancomycin Last Dose Time 1500 White Blood Count 19.0 x10^3/uL (4.0-11.0) Red Blood Count 3.69 x10^6/uL (3.50-5.40) Hemoglobin 8.9 g/dL (12.0-15.5) Hematocrit 30.4 % (36.0-47.0) Mean Corpuscular Volume 82 fL (79-100) Mean Corpuscular Hemoglobin 24 pg (25-35) Mean Corpuscular Hemoglobin Concent 29 g/dL (31-37) Red Cell Distribution Width 25.0 % (11.5-14.5) Platelet Count 330 x10^3/uL (140-400) Neutrophils (%) (Auto) 94 % (31-73) Lymphocytes (%) (Auto) 3 % (24-48) Monocytes (%) (Auto) 3 % (0-9) Eosinophils (%) (Auto) 0 % (0-3) Basophils (%) (Auto) 0 % (0-3) Neutrophils # (Auto) 17.8 x10^3uL (1.8-7.7) Lymphocytes # (Auto) 0.5 x10^3/uL (1.0-4.8) Monocytes # (Auto) 0.6 x10^3/uL (0.0-1.1) Eosinophils # (Auto) 0.0 x10^3/uL (0.0-0.7) Basophils # (Auto) 0.0 x10^3/uL (0.0-0.2) Sodium Level 145 mmol/L (136-145) Potassium Level 4.3 mmol/L (3.5-5.1) Chloride Level 111 mmol/L (98-107) Carbon Dioxide Level 24 mmol/L (21-32) Anion Gap 10 (6-14) Blood Urea Nitrogen 53 mg/dL (7-20) Creatinine 1.6 mg/dL (0.6-1.0) Estimated GFR (Cockcroft-Gault) 32.9 Glucose Level 185 mg/dL (70-99) Calcium Level 9.0 mg/dL (8.5-10.1) O2 Saturation 93 % (92-99) Arterial Blood pH 7.35 (7.35-7.45) Arterial Blood pCO2 at Patient Temp 32 mmHg (35-46) Arterial Blood pO2 at Patient Temp 77 mmHg (65-108) Arterial Blood HCO3 17 mmol/L (21-28) Arterial Blood Base Excess -7 mmol/L (-3-3) FiO2 80 Assessment and Plan Assessmemt and Plan Problems Medical Problems: (1) Dyspnea Status: Acute (2) Hypoalbuminemia Status: Acute (3) Metabolic acidosis Status: Acute (4) Pneumonia Status: Acute Problems: Comment Review of Relevant I have reviewed the following items tha (where applicable) has been applied. Labs Laboratory Tests Test 09/20/17 21:30 09/21/17 05:46 09/21/17 05:50 09/21/17 08:00 Glucose (Fingerstick) 178 mg/dL (70-99) 152 mg/dL (70-99) White Blood Count 20.0 x10^3/uL (4.0-11.0) Red Blood Count 3.64 x10^6/uL (3.50-5.40) Hemoglobin 8.8 g/dL (12.0-15.5) Hematocrit 28.7 % (36.0-47.0) Mean Corpuscular Volume 79 fL (79-100) Mean Corpuscular Hemoglobin 24 pg (25-35) Mean Corpuscular Hemoglobin Concent 31 g/dL (31-37) Red Cell Distribution Width 23.6 % (11.5-14.5) Platelet Count 348 x10^3/uL (140-400) Neutrophils (%) (Auto) 96 % (31-73) Lymphocytes (%) (Auto) 1 % (24-48) Monocytes (%) (Auto) 3 % (0-9) Eosinophils (%) (Auto) 0 % (0-3) Basophils (%) (Auto) 0 % (0-3) Neutrophils # (Auto) 19.1 x10^3uL (1.8-7.7) Lymphocytes # (Auto) 0.2 x10^3/uL (1.0-4.8) Monocytes # (Auto) 0.5 x10^3/uL (0.0-1.1) Eosinophils # (Auto) 0.0 x10^3/uL (0.0-0.7) Basophils # (Auto) 0.1 x10^3/uL (0.0-0.2) Sodium Level 146 mmol/L (136-145) Potassium Level 4.2 mmol/L (3.5-5.1) Chloride Level 111 mmol/L (98-107) Carbon Dioxide Level 25 mmol/L (21-32) Anion Gap 10 (6-14) Blood Urea Nitrogen 46 mg/dL (7-20) Creatinine 1.5 mg/dL (0.6-1.0) Estimated GFR (Cockcroft-Gault) 35.4 BUN/Creatinine Ratio 31 (6-20) Glucose Level 173 mg/dL (70-99) Calcium Level 9.2 mg/dL (8.5-10.1) Phosphorus Level 3.9 mg/dL (2.6-4.7) Magnesium Level 2.6 mg/dL (1.8-2.4) Total Bilirubin 0.3 mg/dL (0.2-1.0) Aspartate Amino Transf (AST/SGOT) 105 U/L (15-37) Alanine Aminotransferase (ALT/SGPT) 79 U/L (14-59) Alkaline Phosphatase 78 U/L (46-116) Total Protein 5.9 g/dL (6.4-8.2) Albumin 2.1 g/dL (3.4-5.0) Albumin/Globulin Ratio 0.6 (1.0-1.7) O2 Saturation 87 % (92-99) Arterial Blood pH 7.35 (7.35-7.45) Arterial Blood pCO2 at Patient Temp 39 mmHg (35-46) Arterial Blood pO2 at Patient Temp 60 mmHg (65-108) Arterial Blood HCO3 21 mmol/L (21-28) Arterial Blood Base Excess -4 mmol/L (-3-3) FiO2 65 Test 09/21/17 09:30 09/21/17 15:40 09/22/17 05:00 09/22/17 05:50 O2 Saturation 94 % (92-99) Arterial Blood pH 7.41 (7.35-7.45) Arterial Blood pCO2 at Patient Temp 32 mmHg (35-46) Arterial Blood pO2 at Patient Temp 75 mmHg (65-108) Arterial Blood HCO3 20 mmol/L (21-28) Arterial Blood Base Excess -4 mmol/L (-3-3) FiO2 70 Vancomycin Level Trough 14.8 mcg/mL (10.0-20.0) Vancomycin Last Dose Date 09/20/17 Vancomycin Last Dose Time 1500 White Blood Count 19.0 x10^3/uL (4.0-11.0) Red Blood Count 3.69 x10^6/uL (3.50-5.40) Hemoglobin 8.9 g/dL (12.0-15.5) Hematocrit 30.4 % (36.0-47.0) Mean Corpuscular Volume 82 fL (79-100) Mean Corpuscular Hemoglobin 24 pg (25-35) Mean Corpuscular Hemoglobin Concent 29 g/dL (31-37) Red Cell Distribution Width 25.0 % (11.5-14.5) Platelet Count 330 x10^3/uL (140-400) Neutrophils (%) (Auto) 94 % (31-73) Lymphocytes (%) (Auto) 3 % (24-48) Monocytes (%) (Auto) 3 % (0-9) Eosinophils (%) (Auto) 0 % (0-3) Basophils (%) (Auto) 0 % (0-3) Neutrophils # (Auto) 17.8 x10^3uL (1.8-7.7) Lymphocytes # (Auto) 0.5 x10^3/uL (1.0-4.8) Monocytes # (Auto) 0.6 x10^3/uL (0.0-1.1) Eosinophils # (Auto) 0.0 x10^3/uL (0.0-0.7) Basophils # (Auto) 0.0 x10^3/uL (0.0-0.2) Sodium Level 145 mmol/L (136-145) Potassium Level 4.3 mmol/L (3.5-5.1) Chloride Level 111 mmol/L (98-107) Carbon Dioxide Level 24 mmol/L (21-32) Anion Gap 10 (6-14) Blood Urea Nitrogen 53 mg/dL (7-20) Creatinine 1.6 mg/dL (0.6-1.0) Estimated GFR (Cockcroft-Gault) 32.9 Glucose Level 185 mg/dL (70-99) Calcium Level 9.0 mg/dL (8.5-10.1) Test 09/22/17 08:50 O2 Saturation 93 % (92-99) Arterial Blood pH 7.35 (7.35-7.45) Arterial Blood pCO2 at Patient Temp 32 mmHg (35-46) Arterial Blood pO2 at Patient Temp 77 mmHg (65-108) Arterial Blood HCO3 17 mmol/L (21-28) Arterial Blood Base Excess -7 mmol/L (-3-3) FiO2 80 Laboratory Tests Test 09/21/17 15:40 09/22/17 05:00 09/22/17 05:50 09/22/17 08:50 Vancomycin Level Trough 14.8 mcg/mL (10.0-20.0) Vancomycin Last Dose Date 09/20/17 Vancomycin Last Dose Time 1500 White Blood Count 19.0 x10^3/uL (4.0-11.0) Red Blood Count 3.69 x10^6/uL (3.50-5.40) Hemoglobin 8.9 g/dL (12.0-15.5) Hematocrit 30.4 % (36.0-47.0) Mean Corpuscular Volume 82 fL (79-100) Mean Corpuscular Hemoglobin 24 pg (25-35) Mean Corpuscular Hemoglobin Concent 29 g/dL (31-37) Red Cell Distribution Width 25.0 % (11.5-14.5) Platelet Count 330 x10^3/uL (140-400) Neutrophils (%) (Auto) 94 % (31-73) Lymphocytes (%) (Auto) 3 % (24-48) Monocytes (%) (Auto) 3 % (0-9) Eosinophils (%) (Auto) 0 % (0-3) Basophils (%) (Auto) 0 % (0-3) Neutrophils # (Auto) 17.8 x10^3uL (1.8-7.7) Lymphocytes # (Auto) 0.5 x10^3/uL (1.0-4.8) Monocytes # (Auto) 0.6 x10^3/uL (0.0-1.1) Eosinophils # (Auto) 0.0 x10^3/uL (0.0-0.7) Basophils # (Auto) 0.0 x10^3/uL (0.0-0.2) Sodium Level 145 mmol/L (136-145) Potassium Level 4.3 mmol/L (3.5-5.1) Chloride Level 111 mmol/L (98-107) Carbon Dioxide Level 24 mmol/L (21-32) Anion Gap 10 (6-14) Blood Urea Nitrogen 53 mg/dL (7-20) Creatinine 1.6 mg/dL (0.6-1.0) Estimated GFR (Cockcroft-Gault) 32.9 Glucose Level 185 mg/dL (70-99) Calcium Level 9.0 mg/dL (8.5-10.1) O2 Saturation 93 % (92-99) Arterial Blood pH 7.35 (7.35-7.45) Arterial Blood pCO2 at Patient Temp 32 mmHg (35-46) Arterial Blood pO2 at Patient Temp 77 mmHg (65-108) Arterial Blood HCO3 17 mmol/L (21-28) Arterial Blood Base Excess -7 mmol/L (-3-3) FiO2 80 Microbiology 09/17/17 Blood Culture - Preliminary, Resulted NO GROWTH AFTER 4 DAYS 09/20/17 AFB Specimen Processing Tissue - Final, Resulted 09/20/17 Acid Fast Bacilli Culture, Resulted Pending 09/20/17 Gram Stain - Final, Resulted 09/20/17 Fungal Culture, Resulted Pending 09/20/17 Fungal Culture Result 1, Resulted Pending Medications Current Medications Sodium Chloride 1,000 ml @ 125 mls/hr 1X ONCE IV Last administered on 15:54; Start 09/17/17 at 15:15; Stop 09/17/17 at 23:14; Status DC Ondansetron HCl (Zofran) 4 mg PRN Q8HRS PRN IV NAUSEA/VOMITING; Start at 16:30; Stop 09/18/17 at 16:29; Status DC Ceftriaxone Sodium 50 ml @ 0 mls/hr 1X ONCE IV Last administered on 17:33; Start 09/17/17 at 16:45; Stop 09/17/17 at 16:46; Status DC Azithromycin 250 ml @ 250 mls/hr 1X ONCE IV Last administered on 09/17/17 22:38; Start 09/17/17 at 16:30; Stop 09/17/17 at 17:29; Status DC Albuterol/ Ipratropium (Duoneb) 3 ml 1X ONCE NEB Last administered on 17:00; Start 09/17/17 at 16:45; Stop 09/17/17 at 16:46; Status DC Potassium Chloride (Klor-Con) 40 meq 1X ONCE PO Last administered on 16:57; Start 09/17/17 at 16:45; Stop 09/17/17 at 16:46; Status DC Azithromycin (Zithromax) 250 mg DAILY PO Last administered on 09/18/17 10:25 ; Start 09/18/17 at 09:00; Stop 09/19/17 at 10:30; Status DC Ceftriaxone Sodium 1 gm/ Dextrose 50 ml @ 100 mls/hr Q24H IV ; Start 09/17/17 at 17:15; Status UNV Albuterol/ Ipratropium (Duoneb) 3 ml Q4HRS NEB Last administered on 09/22/17 08:42; Start 09/17/17 at 20:00 Ceftriaxone Sodium (Rocephin) 1 gm Q24H IVP Last administered on 09/18/17 17: 55; Start 09/18/17 at 16:00; Stop 09/19/17 at 10:30; Status DC Guaifenesin (Robitussin Dm) 10 ml PRN Q6HRS PRN PO COUGH; Start 09/17/17 at 17 :15 Sodium Chloride 1,000 ml @ 125 mls/hr 1X ONCE IV Last administered on 17:45; Start 09/17/17 at 17:15; Stop 09/17/17 at 22:12; Status DC Info (Do NOT chart on this placeholder) 1 each 1X ONCE MC ; Start 09/17/17 at 19:00; Stop 09/17/17 at 19:01; Status UNV Influenza Virus Vaccine Quadrival (Fluarix Quad [id number] Syringe) 0.5 ml ONCE ONCE VAX IM ; Start 09/17/17 at 21:00; Stop 09/17/17 at 21:01; Status DC Sodium Chloride 1,000 ml @ 130 mls/hr 1X ONCE IV Last administered on 22:31; Start 09/17/17 at 22:30; Stop 09/18/17 at 06:11; Status DC Sodium Bicarbonate 50 meq 1X ONCE IV Last administered on 09/17/17 22:31; Start 09/17/17 at 22:30; Stop 09/17/17 at 22:31; Status DC Alprazolam (Xanax) 1 mg PRN TID PRN PO ANXIETY Last administered on 09/19/17 02:19; Start 09/17/17 at 22:30 Furosemide (Lasix) 20 mg 1X ONCE IVP Last administered on 09/18/17 06:24; Start 09/18/17 at 06:30; Stop 09/18/17 at 06:31; Status DC Potassium Chloride (Klor-Con) 40 meq 1X ONCE PO Last administered on 10:25; Start 09/18/17 at 09:00; Stop 09/18/17 at 09:01; Status DC Iron Sucrose 500 mg/Sodium Chloride 275 ml @ 78.571 mls/ hr 1X ONCE IV Last administered on 09/18/17 10:24; Start 09/18/17 at 09:00; Stop 09/18/17 at 12 :29; Status DC Furosemide (Lasix) 20 mg 1X ONCE IVP Last administered on 09/18/17 10:30; Start 09/18/17 at 10:00; Stop 09/18/17 at 10:22; Status DC Pantoprazole Sodium (Protonix) 40 mg DAILYAC PO Last administered on 10:47; Start 09/18/17 at 11:00; Stop 09/19/17 at 13:41; Status DC Furosemide (Lasix) 20 mg 1X ONCE IVP Last administered on 09/18/17 10:47; Start 09/18/17 at 10:45; Stop 09/18/17 at 10:46; Status DC Potassium Chloride (Klor-Con) 40 meq 1X ONCE PO ; Start 09/18/17 at 11:45; Stop 09/18/17 at 11:46; Status DC Oxycodone/ Acetaminophen (Percocet 5/325) 1 tab PRN Q6HRS PRN PO PAIN Last administered on 09/18/17 13:23; Start 09/18/17 at 12:15 Lorazepam (Ativan) 1 mg PRN Q4HRS PRN IV ANXIETY / AGITATION Last administered on 09/18/17 12:25; Start 09/18/17 at 12:15; Stop 09/18/17 at 13:34; Status DC Fentanyl Citrate (Fentanyl 2ml Vial) 50 mcg PRN Q2HR PRN IV PAIN Last administered on 09/19/17 04:09; Start 09/18/17 at 12:15 Lorazepam (Ativan) 2 mg PRN Q4HRS PRN IV ANXIETY / AGITATION Last administered on 09/20/17 17:29; Start 09/18/17 at 13:30 Quetiapine Fumarate (SEROquel) 25 mg HS PO Last administered on 09/18/17 21: 03; Start 09/18/17 at 21:00; Stop 09/19/17 at 10:35; Status DC Haloperidol Lactate (Haldol) 5 mg PRN Q12HRS PRN IVP AGITATION; Start at 13:45 Lorazepam (Ativan) 1 mg PRN Q4HRS PRN IV ANXIETY / AGITATION; Start 09/19/17 at 10:15; Stop 09/19/17 at 10:18; Status DC Lorazepam (Ativan) 4 mg 1X ONCE IV ; Start 09/19/17 at 10:30; Stop 09/19/17 at 10:31; Status DC Vancomycin HCl (Vanco Per Pharmacy) 1 each PRN DAILY PRN MC SEE COMMENTS Last administered on 09/21/17 16:34; Start 09/19/17 at 10:30 Piperacillin Sod/ Tazobactam Sod (Zosyn Per Pharmacy) 1 each PRN DAILY PRN MC SEE COMMENTS; Start 09/19/17 at 10:30 Vancomycin HCl 2 gm/Dextrose 500 ml @ 250 mls/hr 1X ONCE IV Last administered on 09/19/17 14:53; Start 09/19/17 at 11:00; Stop 09/19/17 at 12 :59; Status DC Piperacillin Sod/ Tazobactam Sod (Zosyn) 3.375 gm Q6HRS IVP Last administered on 09/22/17 06:03; Start 09/19/17 at 11:00 Budesonide (Pulmicort) 0.5 mg RTBID NEB Last administered on 09/22/17 08:42; Start 09/19/17 at 20:00 Budesonide (Pulmicort) 0.5 mg 1X ONCE NEB Last administered on 09/19/17 12: 50; Start 09/19/17 at 10:45; Stop 09/19/17 at 10:46; Status DC Pantoprazole Sodium (Protonix Vial) 40 mg DAILYAC IVP Last administered on 07:19; Start 09/19/17 at 11:30 Furosemide (Lasix) 40 mg DAILY IVP ; Start 09/19/17 at 11:00; Stop 09/20/17 at 13:20; Status DC Methylprednisolone Sodium Succinate (SOLU-Medrol 125MG VIAL) 125 mg 1X ONCE IV Last administered on 09/19/17 13:23; Start 09/19/17 at 10:45; Stop at 10:46; Status DC Prednisone (Prednisone) 40 mg DAILY PO ; Start 09/19/17 at 11:00; Stop at 09:02; Status DC Methylprednisolone Sodium Succinate (SOLU-Medrol 125MG VIAL) 125 mg Q8HRS IV Last administered on 09/22/17 06:03; Start 09/19/17 at 14:00 Midazolam HCl 100 ml @ 0 mls/hr CONT PRN IV SEE I/O RECORD; Start 09/19/17 at 11:00; Stop 09/19/17 at 12:51; Status DC Midazolam HCl (Versed) 5 mg 1X ONCE IV ; Start 09/19/17 at 11:00; Stop at 11:01; Status DC Fentanyl Citrate (Fentanyl 2ml Vial) 50 mcg 1X ONCE IV ; Start 09/19/17 at 11: 00; Stop 09/19/17 at 11:01; Status DC Midazolam HCl 100 ml @ As Directed STK-MED ONCE IV ; Start 09/19/17 at 10:55; Stop 09/19/17 at 10:56; Status DC Midazolam HCl (Versed) 5 mg STK-MED ONCE .ROUTE ; Start 09/19/17 at 10:55; Stop 09/19/17 at 10:56; Status DC Propofol 100 ml @ As Directed STK-MED ONCE IV ; Start 09/19/17 at 10:59; Stop 09/19/17 at 11:00; Status DC Norepinephrine Bitartrate 250 ml @ As Directed STK-MED ONCE IV ; Start at 10:59; Stop 09/19/17 at 11:00; Status DC Furosemide (Lasix) 20 mg 1X ONCE IVP ; Start 09/19/17 at 11:15; Stop at 11:16; Status DC Vecuronium [place] (Norcuron Bolus) 10 mg STK-MED ONCE IV ; Start 09/19/17 at 11:21; Stop 09/19/17 at 11:22; Status DC Fentanyl Citrate 30 ml @ 0 mls/hr CONT PRN IV PROTOCOL Last administered on 08:07; Start 09/19/17 at 11:30 Vecuronium [place] (Norcuron Bolus) 6 mg 1X ONCE IV Last administered on 09/19 11:42; Start 09/19/17 at 11:30; Stop 09/19/17 at 11:39; Status DC Propofol 10 ml @ 0 mls/hr 1X ONCE IV Last administered on 11/15/17at 11:30; Start 09/19/17 at 11:30; Stop 09/19/17 at 11:39; Status DC Midazolam HCl 100 ml @ 0 mls/hr CONT PRN IV SEE I/O RECORD Last administered on 09/22/17 05:46; Start 09/19/17 at 11:30 Norepinephrine Bitartrate 250 ml @ 0 mls/hr CONT PRN IV SEE I/O RECORD Last administered on 09/21/17 02:10; Start 09/19/17 at 11:30 Succinylcholine Chloride (Anectine) 100 mg 1X ONCE IV Last administered on 11:42; Start 09/19/17 at 11:30; Stop 09/19/17 at 11:39; Status DC Sodium Bicarbonate 50 meq 1X ONCE IV Last administered on 09/19/17 13:23; Start 09/19/17 at 12:45; Stop 09/19/17 at 12:46; Status DC Sodium Bicarbonate 50 meq 1X ONCE IV Last administered on 09/19/17 13:23; Start 09/19/17 at 12:45; Stop 09/19/17 at 12:46; Status DC Lidocaine/Sodium Bicarbonate (Buffered Lidocaine 1%) 20 ml STK-MED ONCE IJ ; Start 09/19/17 at 13:34; Stop 09/19/17 at 13:35; Status DC Vecuronium [place] (Norcuron Bolus) 10 mg 1X ONCE IV Last administered on 15:05; Start 09/19/17 at 14:00; Stop 09/19/17 at 14:02; Status DC Lidocaine/Sodium Bicarbonate (Buffered Lidocaine 1%) 3 ml 1X ONCE IJ ; Start 09/19/17 at 14:45; Stop 09/19/17 at 14:46; Status DC Vancomycin HCl 1.25 gm/Dextrose 250 ml @ 166.667 mls/hr Q24H IV Last administered on 09/21/17 18:04; Start 09/20/17 at 15:00 Vancomycin HCl 1 each 1X ONCE MC Last administered on 09/21/17 14:30; Start 09/21/17 at 14:30; Stop 09/21/17 at 14:31; Status DC Azithromycin 500 mg/Sodium Chloride 250 ml @ 250 mls/hr Q24H IV Last administered on 09/21/17 16:52; Start 09/19/17 at 16:30 Norepinephrine Bitartrate (Levophed 8mg/ 250ml Premix Drip) 8 mg STK-MED ONCE IV ; Start 09/19/17 at 11:00; Stop 09/20/17 at 08:44; Status DC Midazolam HCl (Versed) 5 mg STK-MED ONCE .ROUTE ; Start 09/19/17 at 11:00; Stop 09/20/17 at 08:44; Status DC Amino Acids/ Glycerin/ Electrolytes 1,000 ml @ 80 mls/hr [id number] IV Last administered on 09/21/17 01:21; Start 09/20/17 at 10:00; Stop 09/22/17 at 07 :02; Status DC Info 1 each PRN DAILY PRN MC SEE COMMENTS; Start 09/20/17 at 10:00; Stop at 12:14; Status DC Furosemide (Lasix) 20 mg 1X ONCE IVP Last administered on 09/20/17 10:21; Start 09/20/17 at 10:15; Stop 09/20/17 at 10:18; Status DC Info 1 each PRN DAILY PRN MC SEE COMMENTS; Start 09/20/17 at 11:00; Status UNV Vecuronium [place] (Norcuron Bolus) 10 mg 1X ONCE IV Last administered on 12:03; Start 09/20/17 at 11:15; Stop 09/20/17 at 11:24; Status DC Atropine Sulfate 0.5 mg STK-MED ONCE .ROUTE ; Start 09/20/17 at 11:47; Stop at 11:48; Status DC Epinephrine HCl (EPINEPHrine SYRINGE) 1 mg STK-MED ONCE .ROUTE ; Start at 11:47; Stop 09/20/17 at 11:48; Status DC Atropine Sulfate 0.5 mg STK-MED ONCE .ROUTE ; Start 09/20/17 at 12:00; Stop at 09:11; Status DC Epinephrine HCl (EPINEPHrine SYRINGE) 1 mg STK-MED ONCE .ROUTE ; Start at 12:00; Stop 09/21/17 at 09:11; Status DC Furosemide (Lasix) 20 mg DAILY IVP ; Start 09/21/17 at 11:15; Stop 09/21/17 at 11:20; Status DC Lorazepam (Ativan) 1 mg PRN Q1HR PRN IV ANXIETY / AGITATION Last administered on 09/22/17 01:49; Start 09/21/17 at 11:15 Albumin Human 250 ml @ 62.5 mls/hr 1X ONCE IV Last administered on 11:57; Start 09/21/17 at 11:30; Stop 09/21/17 at 15:29; Status DC Albumin Human 250 ml @ 62.5 mls/hr 1X ONCE IV Last administered on 14:29; Start 09/21/17 at 11:30; Stop 09/21/17 at 15:29; Status DC Micafungin Sodium 100 mg/Dextrose 100 ml @ 100 mls/hr Q24H IV Last administered on 09/21/17 11:36; Start 09/21/17 at 12:00 Vecuronium [place] (Norcuron Bolus) 4 mg PRN Q4HRS PRN IV AGITATION; Start at 15:00 Dexmedetomidine HCl 200 mcg/ Sodium Chloride 50 ml @ 0 mls/hr CONT PRN IV PER PROTOCOL Last administered on 09/21/17 15:54; Start 09/21/17 at 15:30 Sodium Chloride 500 ml @ 500 mls/hr 1X PRN PRN IV SEE COMMENTS; Start at 15:30 Atropine Sulfate 0.5 mg PRN Q5MIN PRN IV SEE COMMENTS; Start 09/21/17 at 15:30 Propofol 100 ml @ 0 mls/hr CONT PRN IV PER PROTOCOL; Start 09/21/17 at 16:45 Furosemide (Lasix) 20 mg 1X ONCE IVP Last administered on 09/22/17 09:41; Start 09/22/17 at 10:15; Stop 09/22/17 at 10:16 Active Scripts Active Reported Gabapentin 300 Mg Capsule 300 Mg PO TID Cymbalta (Duloxetine Hcl) 60 Mg Capsule. 1 Cap PO BID Hydrochlorothiazide Tablet (Hydrochlorothiazide) 25 Mg Tablet 1 Tab PO DAILY Xanax (Alprazolam) 1 Mg Tablet 1 Tab PO TID PRN Vitals/I & O Vital Sign - Last 24 Hours 1109/21/17 09/21/17 09/21/17 10:00 11:00 11:01 12:00 Temp 98.2 98.2 Pulse 68 78 76 Resp 22 22 22 B/P (MAP) 104/81 (89) 115/82 (93) 127/86 (100) Pulse Ox 92 93 89 94 O2 Delivery Ventilator Ventilator Ventilator Ventilator 09/21/17 09/21/17 09/21/17 09/21/17 12:00 12:18 13:00 14:00 Pulse 76 76 Resp 24 22 22 B/P (MAP) 126/85 (99) 120/85 (97) Pulse Ox 92 92 91 O2 Delivery Mechanical Ventilator Ventilator Ventilator Ventilator 09/21/17 09/21/17 09/21/17 09/21/17 14:23 15:00 15:10 16:00 Temp 98.0 98.0 Pulse 78 89 Resp 22 22 B/P (MAP) 94/72 (79) 116/74 (88) Pulse Ox 93 91 92 97 O2 Delivery Ventilator Ventilator Ventilator Ventilator 09/21/17 09/21/17 09/21/17 09/21/17 16:00 16:53 17:00 17:29 Pulse 74 Resp 22 22 B/P (MAP) 93/65 (74) Pulse Ox 95 93 99 O2 Delivery Mechanical Ventilator Ventilator Ventilator Ventilator 09/21/17 09/21/17 09/21/17 09/21/17 18:00 19:00 19:44 20:00 Pulse 84 86 Resp 22 22 B/P (MAP) 112/78 (89) 96/69 (78) Pulse Ox 99 94 94 O2 Delivery Ventilator Ventilator Ventilator Mechanical Ventilator 09/21/17 09/21/17 09/21/17 09/21/17 20:00 21:00 22:00 22:05 Temp 98.4 98.4 Pulse 74 79 77 Resp 22 22 22 B/P (MAP) 109/78 (88) 119/86 (97) 115/77 (90) Pulse Ox 94 97 95 96 O2 Delivery Ventilator Ventilator Ventilator Ventilator 09/21/17 09/22/17 09/22/17 09/22/17 23:00 00:00 00:00 00:20 Temp 98.4 98.4 Pulse 79 75 Resp 22 22 B/P (MAP) 110/75 (87) 108/74 (85) Pulse Ox 95 94 94 O2 Delivery Ventilator Ventilator Mechanical Ventilator Ventilator 09/22/17 09/22/17 09/22/17 09/22/17 01:00 02:00 02:10 03:00 Pulse 73 75 80 Resp 22 22 22 B/P (MAP) 111/75 (87) 121/80 (94) 111/81 (91) Pulse Ox 95 100 100 97 O2 Delivery Ventilator Ventilator Ventilator Ventilator 09/22/17 09/22/17 09/22/17 09/22/17 03:55 04:00 04:00 05:00 Temp 98.2 98.2 Pulse 60 81 Resp 22 22 B/P (MAP) 102/67 (79) 114/80 (91) Pulse Ox 98 100 98 O2 Delivery Ventilator Ventilator Mechanical Ventilator Ventilator 09/22/17 09/22/17 09/22/17 09/22/17 05:10 06:00 07:00 07:16 Pulse 67 75 Resp 22 22 B/P (MAP) 105/80 (88) 115/70 (85) Pulse Ox 99 98 96 95 O2 Delivery Ventilator Ventilator Ventilator Ventilator 09/22/17 09/22/17 09/22/17 08:00 08:07 08:40 Resp 22 22 Pulse Ox 96 96 O2 Delivery Mechanical Ventilator Ventilator Ventilator Intake and Output 09/21/17 09/21/17 09/22/17 14:59 22:59 06:59 Intake Total 1402 ml 898.90 ml 824.5 ml Output Total 285 ml 415 ml 340 ml Balance 1117 ml 483.90 ml 484.5 ml ABELARDO MOORE MD Sep 22, 2017 09:53
[2017-09-22] MEDS ORDERED: FUROSEMIDE 20 MG/2 ML VIAL. IVP ONE ×2 (10:15→18:00)
--- NOTE | 2017-09-22 10:26 | RAD ---
COMPLETE RENAL ULTRASOUND Indication: Acute kidney injury versus chronic kidney disease Comparison: None. Procedure: Transabdominal ultrasound images are obtained of the kidneys and bladder. Findings: The kidneys demonstrate normal cortical echotexture. Mild cortical thinning of the left kidney. Corticomedullary differentiation is preserved. There is no hydronephrosis. The right kidney measures 9.6 cm. The left kidney measures 10.6 cm. Bladder contains Mayorga catheter and is decompressed and cannot be evaluated. IMPRESSION: 1. Mild cortical thinning of the left kidney. 2. No hydronephrosis.
--- NOTE | 2017-09-22 10:27 | PDOC ---
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 (09/20). clean Labs Lab Laboratory Tests Test 09/21/17 15:40 09/22/17 05:00 09/22/17 05:50 09/22/17 08:50 Vancomycin Level Trough 14.8 mcg/mL (10.0-20.0) Vancomycin Last Dose Date 09/20/17 Vancomycin Last Dose Time 1500 White Blood Count 19.0 x10^3/uL (4.0-11.0) Red Blood Count 3.69 x10^6/uL (3.50-5.40) Hemoglobin 8.9 g/dL (12.0-15.5) Hematocrit 30.4 % (36.0-47.0) Mean Corpuscular Volume 82 fL (79-100) Mean Corpuscular Hemoglobin 24 pg (25-35) Mean Corpuscular Hemoglobin Concent 29 g/dL (31-37) Red Cell Distribution Width 25.0 % (11.5-14.5) Platelet Count 330 x10^3/uL (140-400) Neutrophils (%) (Auto) 94 % (31-73) Lymphocytes (%) (Auto) 3 % (24-48) Monocytes (%) (Auto) 3 % (0-9) Eosinophils (%) (Auto) 0 % (0-3) Basophils (%) (Auto) 0 % (0-3) Neutrophils # (Auto) 17.8 x10^3uL (1.8-7.7) Lymphocytes # (Auto) 0.5 x10^3/uL (1.0-4.8) Monocytes # (Auto) 0.6 x10^3/uL (0.0-1.1) Eosinophils # (Auto) 0.0 x10^3/uL (0.0-0.7) Basophils # (Auto) 0.0 x10^3/uL (0.0-0.2) Sodium Level 145 mmol/L (136-145) Potassium Level 4.3 mmol/L (3.5-5.1) Chloride Level 111 mmol/L (98-107) Carbon Dioxide Level 24 mmol/L (21-32) Anion Gap 10 (6-14) Blood Urea Nitrogen 53 mg/dL (7-20) Creatinine 1.6 mg/dL (0.6-1.0) Estimated GFR (Cockcroft-Gault) 32.9 Glucose Level 185 mg/dL (70-99) Calcium Level 9.0 mg/dL (8.5-10.1) O2 Saturation 93 % (92-99) Arterial Blood pH 7.35 (7.35-7.45) Arterial Blood pCO2 at Patient Temp 32 mmHg (35-46) Arterial Blood pO2 at Patient Temp 77 mmHg (65-108) Arterial Blood HCO3 17 mmol/L (21-28) Arterial Blood Base Excess -7 mmol/L (-3-3) FiO2 80 CXR IMPRESSION: 1. Stable life support devices. 2. Diffuse interstitial and alveolar opacities, worse in the left mid and upper lung. 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 Objective Assessment Acute Resp failure - intubated Strep/Legionella antigens - neg. S/p Bronch 09/20 , no growth to date Hypotension - on 2 Levophed. Lactic normal/Procalcitonin mild - elevation Pulm infiltrates - ARDS ? if transfusions could be playing into resp failure Anemia - on arrival s/p PRBCs - GI following Leukocytosis - on steroids now and S/p PRBCs GEO -stable Transaminitis - ? 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
[2017-09-22 10:53] LABS: BILIRUBIN,URINE NEGATIVE (NEG); GLUCOSE,URINE NEGATIVE (NEG); NITRITE,URINE NEGATIVE (NEG); PH,URINE 6.5; PROTEIN,URINE NEGATIVE (NEG-TRACE); UROBILINOGEN,URINE 0.2 mg/dL (0.2 mg/dL)
[2017-09-22 11:11] LABS: BACTERIA,URINE 0 /HPF (0-FEW); RBC,URINE OCC /HPF (0-2); SQUAMOUS EPITHELIAL CELL,UR OCC /LPF
[2017-09-22] MEDS: MICAFUNGIN 100 MG in IV DEXTROSE 5% 100 ML IV SCH (12:26)
--- NOTE | 2017-09-22 12:37 | PDOC ---
PULMONARY PROGRESS NOTES Subjective AC mode, intubated 09/19, sedated 80%FIO2/10 PEEP low dose pressor Vitals Vital Signs Date Time Temp Pulse Resp B/P (MAP) Pulse Ox O2 Delivery O2 Flow Rate FiO2 09/22/17 11:45 22 99 Ventilator 09/22/17 07:00 75 115/70 (85) 09/22/17 04:00 98.2 98.2 Lungs: Other (decrease bs) Cardiovascular: S1 Abdomen: Soft Extremities: Other (1+EDEMA) Skin: Warm Labs Laboratory Tests Test 09/20/17 21:30 09/21/17 05:46 09/21/17 05:50 09/21/17 08:00 Glucose (Fingerstick) 178 mg/dL (70-99) 152 mg/dL (70-99) White Blood Count 20.0 x10^3/uL (4.0-11.0) Red Blood Count 3.64 x10^6/uL (3.50-5.40) Hemoglobin 8.8 g/dL (12.0-15.5) Hematocrit 28.7 % (36.0-47.0) Mean Corpuscular Volume 79 fL (79-100) Mean Corpuscular Hemoglobin 24 pg (25-35) Mean Corpuscular Hemoglobin Concent 31 g/dL (31-37) Red Cell Distribution Width 23.6 % (11.5-14.5) Platelet Count 348 x10^3/uL (140-400) Neutrophils (%) (Auto) 96 % (31-73) Lymphocytes (%) (Auto) 1 % (24-48) Monocytes (%) (Auto) 3 % (0-9) Eosinophils (%) (Auto) 0 % (0-3) Basophils (%) (Auto) 0 % (0-3) Neutrophils # (Auto) 19.1 x10^3uL (1.8-7.7) Lymphocytes # (Auto) 0.2 x10^3/uL (1.0-4.8) Monocytes # (Auto) 0.5 x10^3/uL (0.0-1.1) Eosinophils # (Auto) 0.0 x10^3/uL (0.0-0.7) Basophils # (Auto) 0.1 x10^3/uL (0.0-0.2) Sodium Level 146 mmol/L (136-145) Potassium Level 4.2 mmol/L (3.5-5.1) Chloride Level 111 mmol/L (98-107) Carbon Dioxide Level 25 mmol/L (21-32) Anion Gap 10 (6-14) Blood Urea Nitrogen 46 mg/dL (7-20) Creatinine 1.5 mg/dL (0.6-1.0) Estimated GFR (Cockcroft-Gault) 35.4 BUN/Creatinine Ratio 31 (6-20) Glucose Level 173 mg/dL (70-99) Calcium Level 9.2 mg/dL (8.5-10.1) Phosphorus Level 3.9 mg/dL (2.6-4.7) Magnesium Level 2.6 mg/dL (1.8-2.4) Total Bilirubin 0.3 mg/dL (0.2-1.0) Aspartate Amino Transf (AST/SGOT) 105 U/L (15-37) Alanine Aminotransferase (ALT/SGPT) 79 U/L (14-59) Alkaline Phosphatase 78 U/L (46-116) Total Protein 5.9 g/dL (6.4-8.2) Albumin 2.1 g/dL (3.4-5.0) Albumin/Globulin Ratio 0.6 (1.0-1.7) O2 Saturation 87 % (92-99) Arterial Blood pH 7.35 (7.35-7.45) Arterial Blood pCO2 at Patient Temp 39 mmHg (35-46) Arterial Blood pO2 at Patient Temp 60 mmHg (65-108) Arterial Blood HCO3 21 mmol/L (21-28) Arterial Blood Base Excess -4 mmol/L (-3-3) FiO2 65 Test 09/21/17 09:30 09/21/17 15:40 09/22/17 05:00 09/22/17 05:50 O2 Saturation 94 % (92-99) Arterial Blood pH 7.41 (7.35-7.45) Arterial Blood pCO2 at Patient Temp 32 mmHg (35-46) Arterial Blood pO2 at Patient Temp 75 mmHg (65-108) Arterial Blood HCO3 20 mmol/L (21-28) Arterial Blood Base Excess -4 mmol/L (-3-3) FiO2 70 Vancomycin Level Trough 14.8 mcg/mL (10.0-20.0) Vancomycin Last Dose Date 09/20/17 Vancomycin Last Dose Time 1500 White Blood Count 19.0 x10^3/uL (4.0-11.0) Red Blood Count 3.69 x10^6/uL (3.50-5.40) Hemoglobin 8.9 g/dL (12.0-15.5) Hematocrit 30.4 % (36.0-47.0) Mean Corpuscular Volume 82 fL (79-100) Mean Corpuscular Hemoglobin 24 pg (25-35) Mean Corpuscular Hemoglobin Concent 29 g/dL (31-37) Red Cell Distribution Width 25.0 % (11.5-14.5) Platelet Count 330 x10^3/uL (140-400) Neutrophils (%) (Auto) 94 % (31-73) Lymphocytes (%) (Auto) 3 % (24-48) Monocytes (%) (Auto) 3 % (0-9) Eosinophils (%) (Auto) 0 % (0-3) Basophils (%) (Auto) 0 % (0-3) Neutrophils # (Auto) 17.8 x10^3uL (1.8-7.7) Lymphocytes # (Auto) 0.5 x10^3/uL (1.0-4.8) Monocytes # (Auto) 0.6 x10^3/uL (0.0-1.1) Eosinophils # (Auto) 0.0 x10^3/uL (0.0-0.7) Basophils # (Auto) 0.0 x10^3/uL (0.0-0.2) Sodium Level 145 mmol/L (136-145) Potassium Level 4.3 mmol/L (3.5-5.1) Chloride Level 111 mmol/L (98-107) Carbon Dioxide Level 24 mmol/L (21-32) Anion Gap 10 (6-14) Blood Urea Nitrogen 53 mg/dL (7-20) Creatinine 1.6 mg/dL (0.6-1.0) Estimated GFR (Cockcroft-Gault) 32.9 Glucose Level 185 mg/dL (70-99) Calcium Level 9.0 mg/dL (8.5-10.1) Test 09/22/17 08:50 09/22/17 10:00 O2 Saturation 93 % (92-99) Arterial Blood pH 7.35 (7.35-7.45) Arterial Blood pCO2 at Patient Temp 32 mmHg (35-46) Arterial Blood pO2 at Patient Temp 77 mmHg (65-108) Arterial Blood HCO3 17 mmol/L (21-28) Arterial Blood Base Excess -7 mmol/L (-3-3) FiO2 80 Urine Collection Type Unknown Urine Color Yellow Urine Clarity Clear Urine pH 6.5 Urine Specific [place] 1.020 Urine Protein Negative mg/dL (NEG-TRACE) Urine Glucose (UA) Negative mg/dL (NEG) Urine Ketones (Stick) Negative mg/dL (NEG) Urine Blood Negative (NEG) Urine Nitrite Negative (NEG) Urine Bilirubin Negative (NEG) Urine Urobilinogen Dipstick 0.2 mg/dL (0.2 mg/dL) Urine Leukocyte Esterase Negative (NEG) Urine RBC Occ /HPF (0-2) Urine WBC 1-4 /HPF (0-4) Urine Squamous Epithelial Cells Occ /LPF Urine Bacteria 0 /HPF (0-FEW) Urine Hyaline Casts Occasional /HPF Laboratory Tests Test 09/21/17 15:40 09/22/17 05:00 09/22/17 05:50 09/22/17 08:50 Vancomycin Level Trough 14.8 mcg/mL (10.0-20.0) Vancomycin Last Dose Date 09/20/17 Vancomycin Last Dose Time 1500 White Blood Count 19.0 x10^3/uL (4.0-11.0) Red Blood Count 3.69 x10^6/uL (3.50-5.40) Hemoglobin 8.9 g/dL (12.0-15.5) Hematocrit 30.4 % (36.0-47.0) Mean Corpuscular Volume 82 fL (79-100) Mean Corpuscular Hemoglobin 24 pg (25-35) Mean Corpuscular Hemoglobin Concent 29 g/dL (31-37) Red Cell Distribution Width 25.0 % (11.5-14.5) Platelet Count 330 x10^3/uL (140-400) Neutrophils (%) (Auto) 94 % (31-73) Lymphocytes (%) (Auto) 3 % (24-48) Monocytes (%) (Auto) 3 % (0-9) Eosinophils (%) (Auto) 0 % (0-3) Basophils (%) (Auto) 0 % (0-3) Neutrophils # (Auto) 17.8 x10^3uL (1.8-7.7) Lymphocytes # (Auto) 0.5 x10^3/uL (1.0-4.8) Monocytes # (Auto) 0.6 x10^3/uL (0.0-1.1) Eosinophils # (Auto) 0.0 x10^3/uL (0.0-0.7) Basophils # (Auto) 0.0 x10^3/uL (0.0-0.2) Sodium Level 145 mmol/L (136-145) Potassium Level 4.3 mmol/L (3.5-5.1) Chloride Level 111 mmol/L (98-107) Carbon Dioxide Level 24 mmol/L (21-32) Anion Gap 10 (6-14) Blood Urea Nitrogen 53 mg/dL (7-20) Creatinine 1.6 mg/dL (0.6-1.0) Estimated GFR (Cockcroft-Gault) 32.9 Glucose Level 185 mg/dL (70-99) Calcium Level 9.0 mg/dL (8.5-10.1) O2 Saturation 93 % (92-99) Arterial Blood pH 7.35 (7.35-7.45) Arterial Blood pCO2 at Patient Temp 32 mmHg (35-46) Arterial Blood pO2 at Patient Temp 77 mmHg (65-108) Arterial Blood HCO3 17 mmol/L (21-28) Arterial Blood Base Excess -7 mmol/L (-3-3) FiO2 80 Test 09/22/17 10:00 Urine Collection Type Unknown Urine Color Yellow Urine Clarity Clear Urine pH 6.5 Urine Specific [place] 1.020 Urine Protein Negative mg/dL (NEG-TRACE) Urine Glucose (UA) Negative mg/dL (NEG) Urine Ketones (Stick) Negative mg/dL (NEG) Urine Blood Negative (NEG) Urine Nitrite Negative (NEG) Urine Bilirubin Negative (NEG) Urine Urobilinogen Dipstick 0.2 mg/dL (0.2 mg/dL) Urine Leukocyte Esterase Negative (NEG) Urine RBC Occ /HPF (0-2) Urine WBC 1-4 /HPF (0-4) Urine Squamous Epithelial Cells Occ /LPF Urine Bacteria 0 /HPF (0-FEW) Urine Hyaline Casts Occasional /HPF Medications Active Scripts Medications Dose Route/Sig Max Daily Dose Days Date Category Gabapentin 300 Mg Capsule 300 Mg PO TID 09/18/17 Reported Cymbalta (Duloxetine Hcl) 60 Mg Capsule. 1 Cap PO BID 09/18/17 Reported Hydrochlorothiazide Tablet (Hydrochlorothiazide) 25 Mg Tablet 1 Tab PO DAILY 09/17/17 Reported Xanax (Alprazolam) 1 Mg Tablet 1 Tab PO TID PRN 09/17/17 Reported Comments CXR 09/22 mild Increase in WILMER infiltrates Impression . 1. Acute hypoxic respiratory failure in a patient who is a smoker and has a significant anemia with a hemoglobin of 5.0 on admission and also has extensive interstitial infiltrates, more on the right than on the left and a small basal pleural effusion. Differential diagnosis would include the following: A. Acute Interstitial atypical pneumonia , suspect diffuse viral pneumonia/ clinically ARDS? cannot exclude pulmonary vasculitis (high sed rate, anemia.) No evidence of Alveolar proteinosis by Bronch.? Acute interstitial lung disease (Zana Andrews) B. Unlikely transfusion related acute lung injury as the symptoms began before the transfusion. 2. Anemia, microcytic ,needs further workup. Possibility of myelodysplastic syndrome should be a consideration; GI follow up to rule out any gastrointestinal source. ? vasculitis 3. She has had long history of tobacco use, suspect underlying severe chronic obstructive pulmonary disease. 4. Increase azotemia, steroid effect 5. Hypotension 6. Yeast on BAL so far Plan . 1. Max sedation/ prn paralysis 2. AC mode/ high PEEP. Continue to titrate oxygen to keep saturations 92% to 94 %, 3. Continue broad-spectrum antibiotics. Influenza screen neg. Micafungin added for budding yeast on BAL. 4. CT chest with diffuse parenchymal GG infiltrates, small effusions. ? etiology ,s/p Bronch 09/20 .No growth to date.AFB negative. clean airway. Strep/ Legionella antigens - 5. Try low dose diuretics .normal EF, moderate AI, CXR slightly worse today. 6. Hematology following for workup of anemia. 7. GI for workup of anemia. 8. high dose steroids/ high sed rate 9. TX PRBC prn 10.Tolerating enteral nutrition. 11. Discussed with RN and .Pt is critically ill cct 30 min JORGE LEDESMA MD Sep 22, 2017 12:37
[2017-09-22] MEDS: VANCOMYCIN 1.25 GM in IV DEXTROSE 5% 250 ML IV SCH (14:51)
[2017-09-22] MEDS: VANCOMYCIN PER PHARMACY MC PRN (15:02)
[2017-09-22] MEDS: AZITHROMYCIN 500 MG in IV NORMAL SALINE 250ML 250 ML IV SCH (17:30)
[2017-09-22] MEDS: CHLORHEXIDINE 0.12% 15 ML MOUTHWASH. MM SCH (21:08)
[2017-09-23] VITALS (51 sets, daily range): BP systolic 84–156; BP diastolic 55–103
[2017-09-23] MEDS: PIPERACILLIN/TAZO IV Push 3.375 GM VIAL. IVP SCH ×4 (00:28→18:00)
[2017-09-23] MEDS: MIDAZOLAM 100MG/100ML PREMIX 100 ML IV PRN ×5 (00:29→18:24)
[2017-09-23] MEDS: IPRATRPIUM/ALBUTEROL 0.5/2.5MG 3 ML NEBU. NEB SCH ×6 (03:32→23:04)
[2017-09-23] MEDS: methylPREDNISolone SOD SUCC PF 125 MG/2 ML VIAL. IV SCH ×3 (05:43→22:03)
[2017-09-23 06:07] LABS: BASO % 0 % (0-3); EOS % 0 % (0-3); HEMATOCRIT 30.3 % (36.0-47.0); HEMOGLOBIN 9.4 g/dL (12.0-15.5); LYMPH # 0.6 x10^3/uL (1.0-4.8); LYMPH % 4 % (24-48); MEAN CORPUSCULAR HEMOGLOBIN 25 pg (25-35); MEAN CORPUSCULAR HGB CONC 31 g/dL (31-37); MEAN CORPUSCULAR VOLUME 81 fL (79-100); MONO % 3 % (0-9); NEUT % 92 % (31-73); PLATELET COUNT 255 x10^3/uL (140-400); RED BLOOD COUNT 3.72 x10^6/uL (3.50-5.40); RED CELL DISTRIBUTION WIDTH 25.5 % (11.5-14.5); WHITE BLOOD COUNT 13.4 x10^3/uL (4.0-11.0)
[2017-09-23 06:41] LABS: ALBUMIN 2.5 g/dL (3.4-5.0); ALBUMIN/GLOBULIN RATIO 0.8 (1.0-1.7); CALCIUM 8.8 mg/dL (8.5-10.1); CREATININE 1.6 mg/dL (0.6-1.0); GFR 32.9; POTASSIUM 3.5 mmol/L (3.5-5.1); TOTAL BILIRUBIN 0.5 mg/dL (0.2-1.0); TOTAL PROTEIN 5.5 g/dL (6.4-8.2)
[2017-09-23] MEDS: PANTOPRAZOLE IV PUSH 40 MG VIAL. IVP SCH (07:14)
[2017-09-23] MEDS: BUDESONIDE 0.5 MG/2 ML NEBU. NEB SCH ×2 (08:13→20:05)
[2017-09-23] MEDS: CHLORHEXIDINE 0.12% 15 ML MOUTHWASH. MM SCH ×2 (08:31→21:01)
[2017-09-23 09:13] LABS: HCO3 ABG 20 mmol/L (21-28); PCO2 ABG 34 mmHg (35-46); PH ABG 7.39 (7.35-7.45); PO2 ABG 61 mmHg (65-108); SAT O2 ABG 89 % (92-99)
[2017-09-23 10:02] LABS: FIO2 ABG 40
--- NOTE | 2017-09-23 10:39 | PDOC ---
PULMONARY PROGRESS NOTES Subjective AC mode, intubated 09/19, sedated 80%FIO2/10 PEEP low dose pressor Vitals Vital Signs Date Time Temp Pulse Resp B/P (MAP) Pulse Ox O2 Delivery O2 Flow Rate FiO2 09/23/17 08:13 96 Ventilator 09/23/17 07:50 22 09/23/17 07:00 63 92/64 (73) 09/23/17 04:00 97.6 97.6 Lungs: Other (decrease bs) Cardiovascular: S1 Abdomen: Soft Extremities: Other (1+EDEMA) Skin: Warm Labs Laboratory Tests Test 09/21/17 15:40 09/22/17 05:00 09/22/17 05:50 09/22/17 08:50 Vancomycin Level Trough 14.8 mcg/mL (10.0-20.0) Vancomycin Last Dose Date 09/20/17 Vancomycin Last Dose Time 1500 White Blood Count 19.0 x10^3/uL (4.0-11.0) Red Blood Count 3.69 x10^6/uL (3.50-5.40) Hemoglobin 8.9 g/dL (12.0-15.5) Hematocrit 30.4 % (36.0-47.0) Mean Corpuscular Volume 82 fL (79-100) Mean Corpuscular Hemoglobin 24 pg (25-35) Mean Corpuscular Hemoglobin Concent 29 g/dL (31-37) Red Cell Distribution Width 25.0 % (11.5-14.5) Platelet Count 330 x10^3/uL (140-400) Neutrophils (%) (Auto) 94 % (31-73) Lymphocytes (%) (Auto) 3 % (24-48) Monocytes (%) (Auto) 3 % (0-9) Eosinophils (%) (Auto) 0 % (0-3) Basophils (%) (Auto) 0 % (0-3) Neutrophils # (Auto) 17.8 x10^3uL (1.8-7.7) Lymphocytes # (Auto) 0.5 x10^3/uL (1.0-4.8) Monocytes # (Auto) 0.6 x10^3/uL (0.0-1.1) Eosinophils # (Auto) 0.0 x10^3/uL (0.0-0.7) Basophils # (Auto) 0.0 x10^3/uL (0.0-0.2) Sodium Level 145 mmol/L (136-145) Potassium Level 4.3 mmol/L (3.5-5.1) Chloride Level 111 mmol/L (98-107) Carbon Dioxide Level 24 mmol/L (21-32) Anion Gap 10 (6-14) Blood Urea Nitrogen 53 mg/dL (7-20) Creatinine 1.6 mg/dL (0.6-1.0) Estimated GFR (Cockcroft-Gault) 32.9 Glucose Level 185 mg/dL (70-99) Calcium Level 9.0 mg/dL (8.5-10.1) O2 Saturation 93 % (92-99) Arterial Blood pH 7.35 (7.35-7.45) Arterial Blood pCO2 at Patient Temp 32 mmHg (35-46) Arterial Blood pO2 at Patient Temp 77 mmHg (65-108) Arterial Blood HCO3 17 mmol/L (21-28) Arterial Blood Base Excess -7 mmol/L (-3-3) FiO2 80 Test 09/22/17 09:55 09/22/17 10:00 09/23/17 05:50 09/23/17 09:00 Urine Random Sodium <60 mmol/L (Not Estab.) Urine Collection Type Unknown Urine Color Yellow Urine Clarity Clear Urine pH 6.5 Urine Specific [place] 1.020 Urine Protein Negative mg/dL (NEG-TRACE) Urine Glucose (UA) Negative mg/dL (NEG) Urine Ketones (Stick) Negative mg/dL (NEG) Urine Blood Negative (NEG) Urine Nitrite Negative (NEG) Urine Bilirubin Negative (NEG) Urine Urobilinogen Dipstick 0.2 mg/dL (0.2 mg/dL) Urine Leukocyte Esterase Negative (NEG) Urine RBC Occ /HPF (0-2) Urine WBC 1-4 /HPF (0-4) Urine Squamous Epithelial Cells Occ /LPF Urine Bacteria 0 /HPF (0-FEW) Urine Hyaline Casts Occasional /HPF White Blood Count 13.4 x10^3/uL (4.0-11.0) Red Blood Count 3.72 x10^6/uL (3.50-5.40) Hemoglobin 9.4 g/dL (12.0-15.5) Hematocrit 30.3 % (36.0-47.0) Mean Corpuscular Volume 81 fL (79-100) Mean Corpuscular Hemoglobin 25 pg (25-35) Mean Corpuscular Hemoglobin Concent 31 g/dL (31-37) Red Cell Distribution Width 25.5 % (11.5-14.5) Platelet Count 255 x10^3/uL (140-400) Neutrophils (%) (Auto) 92 % (31-73) Lymphocytes (%) (Auto) 4 % (24-48) Monocytes (%) (Auto) 3 % (0-9) Eosinophils (%) (Auto) 0 % (0-3) Basophils (%) (Auto) 0 % (0-3) Neutrophils # (Auto) 12.4 x10^3uL (1.8-7.7) Lymphocytes # (Auto) 0.6 x10^3/uL (1.0-4.8) Monocytes # (Auto) 0.4 x10^3/uL (0.0-1.1) Eosinophils # (Auto) 0.0 x10^3/uL (0.0-0.7) Basophils # (Auto) 0.0 x10^3/uL (0.0-0.2) Sodium Level 149 mmol/L (136-145) Potassium Level 3.5 mmol/L (3.5-5.1) Chloride Level 113 mmol/L (98-107) Carbon Dioxide Level 23 mmol/L (21-32) Anion Gap 13 (6-14) Blood Urea Nitrogen 57 mg/dL (7-20) Creatinine 1.6 mg/dL (0.6-1.0) Estimated GFR (Cockcroft-Gault) 32.9 BUN/Creatinine Ratio 36 (6-20) Glucose Level 206 mg/dL (70-99) Calcium Level 8.8 mg/dL (8.5-10.1) Total Bilirubin 0.5 mg/dL (0.2-1.0) Aspartate Amino Transf (AST/SGOT) 46 U/L (15-37) Alanine Aminotransferase (ALT/SGPT) 111 U/L (14-59) Alkaline Phosphatase 69 U/L (46-116) Total Protein 5.5 g/dL (6.4-8.2) Albumin 2.5 g/dL (3.4-5.0) Albumin/Globulin Ratio 0.8 (1.0-1.7) O2 Saturation 89 % (92-99) Arterial Blood pH 7.39 (7.35-7.45) Arterial Blood pCO2 at Patient Temp 34 mmHg (35-46) Arterial Blood pO2 at Patient Temp 61 mmHg (65-108) Arterial Blood HCO3 20 mmol/L (21-28) Arterial Blood Base Excess -4 mmol/L (-3-3) FiO2 40 Laboratory Tests Test 09/23/17 05:50 09/23/17 09:00 White Blood Count 13.4 x10^3/uL (4.0-11.0) Red Blood Count 3.72 x10^6/uL (3.50-5.40) Hemoglobin 9.4 g/dL (12.0-15.5) Hematocrit 30.3 % (36.0-47.0) Mean Corpuscular Volume 81 fL (79-100) Mean Corpuscular Hemoglobin 25 pg (25-35) Mean Corpuscular Hemoglobin Concent 31 g/dL (31-37) Red Cell Distribution Width 25.5 % (11.5-14.5) Platelet Count 255 x10^3/uL (140-400) Neutrophils (%) (Auto) 92 % (31-73) Lymphocytes (%) (Auto) 4 % (24-48) Monocytes (%) (Auto) 3 % (0-9) Eosinophils (%) (Auto) 0 % (0-3) Basophils (%) (Auto) 0 % (0-3) Neutrophils # (Auto) 12.4 x10^3uL (1.8-7.7) Lymphocytes # (Auto) 0.6 x10^3/uL (1.0-4.8) Monocytes # (Auto) 0.4 x10^3/uL (0.0-1.1) Eosinophils # (Auto) 0.0 x10^3/uL (0.0-0.7) Basophils # (Auto) 0.0 x10^3/uL (0.0-0.2) Sodium Level 149 mmol/L (136-145) Potassium Level 3.5 mmol/L (3.5-5.1) Chloride Level 113 mmol/L (98-107) Carbon Dioxide Level 23 mmol/L (21-32) Anion Gap 13 (6-14) Blood Urea Nitrogen 57 mg/dL (7-20) Creatinine 1.6 mg/dL (0.6-1.0) Estimated GFR (Cockcroft-Gault) 32.9 BUN/Creatinine Ratio 36 (6-20) Glucose Level 206 mg/dL (70-99) Calcium Level 8.8 mg/dL (8.5-10.1) Total Bilirubin 0.5 mg/dL (0.2-1.0) Aspartate Amino Transf (AST/SGOT) 46 U/L (15-37) Alanine Aminotransferase (ALT/SGPT) 111 U/L (14-59) Alkaline Phosphatase 69 U/L (46-116) Total Protein 5.5 g/dL (6.4-8.2) Albumin 2.5 g/dL (3.4-5.0) Albumin/Globulin Ratio 0.8 (1.0-1.7) O2 Saturation 89 % (92-99) Arterial Blood pH 7.39 (7.35-7.45) Arterial Blood pCO2 at Patient Temp 34 mmHg (35-46) Arterial Blood pO2 at Patient Temp 61 mmHg (65-108) Arterial Blood HCO3 20 mmol/L (21-28) Arterial Blood Base Excess -4 mmol/L (-3-3) FiO2 40 Medications Active Scripts Medications Dose Route/Sig Max Daily Dose Days Date Category Gabapentin 300 Mg Capsule 300 Mg PO TID 09/18/17 Reported Cymbalta (Duloxetine Hcl) 60 Mg Capsule.dr 1 Cap PO BID 09/18/17 Reported Hydrochlorothiazide Tablet (Hydrochlorothiazide) 25 Mg Tablet 1 Tab PO DAILY 09/17/17 Reported Xanax (Alprazolam) 1 Mg Tablet 1 Tab PO TID PRN 09/17/17 Reported Comments CXR 09/23 mild decrease in WILMER infiltrates / overall persistent interstitial infiltrates Impression . 1. Acute hypoxic respiratory failure in a patient who is a smoker and has a significant anemia with a hemoglobin of 5.0 on admission and also has extensive interstitial infiltrates, more on the right than on the left and a small basal pleural effusion. Differential diagnosis would include the following: A. Acute Interstitial atypical pneumonia , suspect diffuse viral pneumonia/ clinically ARDS? cannot exclude pulmonary vasculitis (high sed rate, anemia.) No evidence of Alveolar proteinosis by Bronch.? Acute interstitial lung disease (Zana Darryl) B. Unlikely transfusion related acute lung injury as the symptoms began before the transfusion. 2. Anemia, microcytic ,needs further workup later. Possibility of myelodysplastic syndrome should be a consideration; GI follow up to rule out any gastrointestinal source. ? vasculitis 3. She has had long history of tobacco use, suspect underlying severe chronic obstructive pulmonary disease. 4. Increase azotemia, steroid effect 5. Hypotension, resolved, off pressor 6. Yeast on BAL .so far all cultures neg Plan . 1. Max sedation/ prn paralysis 2. AC mode/ high PEEP. Continue to titrate oxygen to keep saturations 92% to 94 %, NOW DOWN TO 50% FROM 80% 09/22 3. Continue broad-spectrum antibiotics. Influenza screen neg. Micafungin added for budding yeast on BAL. 4. CT chest with diffuse parenchymal GG infiltrates, small effusions. ? etiology ,s/p Bronch 09/20 .No growth to date.AFB negative. clean airway. Strep/ Legionella antigens - 5. Try low dose daily diuretics .normal EF, moderate AI, 6. Hematology following for workup of anemia. 7. GI for workup of anemia. 8. high dose steroids/ high sed rate, taper dose today 9. TX PRBC prn 10.Tolerating enteral nutrition. 11. Discussed with RN and .Pt is critically ill cct 25 min JORGE LEDESMA MD Sep 23, 2017 10:39
--- NOTE | 2017-09-23 11:04 | PDOC ---
Infectious Disease Note Subjective Subjective Remains intubated, FiO2 50% Sedated BP stable, off Levophed No fever ROS ROS unobtainable Vital Sign Vital Signs Vital Signs Date Time Temp Pulse Resp B/P (MAP) Pulse Ox O2 Delivery O2 Flow Rate FiO2 09/23/17 08:13 96 Ventilator 09/23/17 07:50 22 09/23/17 07:00 63 92/64 (73) 09/23/17 04:00 97.6 97.6 Physical Exam PHYSICAL EXAM GENERAL: Intubated and sedated HEENT: OGT, ETT LUNGS: Diminished aeration bases HEART: S1S2, regular ABD: Soft, BS active : Mayorga EXT: Trace edema, no cyanosis BIOMETRICS SPECIALIST: Sedated SKIN: No rash RIJ. (09/20). clean Labs Lab Laboratory Tests Test 09/23/17 05:50 09/23/17 09:00 White Blood Count 13.4 x10^3/uL (4.0-11.0) Red Blood Count 3.72 x10^6/uL (3.50-5.40) Hemoglobin 9.4 g/dL (12.0-15.5) Hematocrit 30.3 % (36.0-47.0) Mean Corpuscular Volume 81 fL (79-100) Mean Corpuscular Hemoglobin 25 pg (25-35) Mean Corpuscular Hemoglobin Concent 31 g/dL (31-37) Red Cell Distribution Width 25.5 % (11.5-14.5) Platelet Count 255 x10^3/uL (140-400) Neutrophils (%) (Auto) 92 % (31-73) Lymphocytes (%) (Auto) 4 % (24-48) Monocytes (%) (Auto) 3 % (0-9) Eosinophils (%) (Auto) 0 % (0-3) Basophils (%) (Auto) 0 % (0-3) Neutrophils # (Auto) 12.4 x10^3uL (1.8-7.7) Lymphocytes # (Auto) 0.6 x10^3/uL (1.0-4.8) Monocytes # (Auto) 0.4 x10^3/uL (0.0-1.1) Eosinophils # (Auto) 0.0 x10^3/uL (0.0-0.7) Basophils # (Auto) 0.0 x10^3/uL (0.0-0.2) Sodium Level 149 mmol/L (136-145) Potassium Level 3.5 mmol/L (3.5-5.1) Chloride Level 113 mmol/L (98-107) Carbon Dioxide Level 23 mmol/L (21-32) Anion Gap 13 (6-14) Blood Urea Nitrogen 57 mg/dL (7-20) Creatinine 1.6 mg/dL (0.6-1.0) Estimated GFR (Cockcroft-Gault) 32.9 BUN/Creatinine Ratio 36 (6-20) Glucose Level 206 mg/dL (70-99) Calcium Level 8.8 mg/dL (8.5-10.1) Total Bilirubin 0.5 mg/dL (0.2-1.0) Aspartate Amino Transf (AST/SGOT) 46 U/L (15-37) Alanine Aminotransferase (ALT/SGPT) 111 U/L (14-59) Alkaline Phosphatase 69 U/L (46-116) Total Protein 5.5 g/dL (6.4-8.2) Albumin 2.5 g/dL (3.4-5.0) Albumin/Globulin Ratio 0.8 (1.0-1.7) O2 Saturation 89 % (92-99) Arterial Blood pH 7.39 (7.35-7.45) Arterial Blood pCO2 at Patient Temp 34 mmHg (35-46) Arterial Blood pO2 at Patient Temp 61 mmHg (65-108) Arterial Blood HCO3 20 mmol/L (21-28) Arterial Blood Base Excess -4 mmol/L (-3-3) FiO2 40 Objective Assessment Acute Resp failure - intubated Strep/Legionella antigens - neg. S/p Bronch 09/20 , no growth to date Hypotension, now off Levophed Lactic normal/Procalcitonin mild - elevation Pulm infiltrates - ARDS ? if transfusions could be playing into resp failure Anemia - on arrival s/p PRBCs - GI following Leukocytosis - on steroids now and S/p PRBCs GEO -stable Transaminitis - ? reactive COPD H/o Leg wounds - no recent abx per for wounds - last amox 6 weeks ago Influenza vaccine 09/17 - given Plan Plan of Care Vanc and Zosyn Continue Azithromycin for atypical Resp viral panel/Silver stain was ordered but cancelled by Pathology F/u Mycoplasma 09/20 pending Parvo (with anemia although no rash or joint pains) ANCA pending F/u labs and cults May need additional tests based on above results D/w family bronch c/s nonrevealing till now sputum c/s yeast likely contaminant continue empiric coverage for now PT SEEN AND EXAMINED D/W WEI TATE APRN Sep 23, 2017 11:04 JAMIE RODRIGUEZ MD Sep 23, 2017 17:07
[2017-09-23] MEDS ORDERED: FUROSEMIDE 20 MG/2 ML VIAL. IVP SCH (11:30)
--- NOTE | 2017-09-23 11:33 | PDOC ---
SUBJECTIVE ROS GEO - Suspect CKD III Remains on the Vent in NAD OBJECTIVE Vital Signs Vital Signs Date Time Temp Pulse Resp B/P (MAP) Pulse Ox O2 Delivery O2 Flow Rate FiO2 09/23/17 08:13 96 Ventilator 09/23/17 07:50 22 09/23/17 07:00 63 92/64 (73) 09/23/17 04:00 97.6 97.6 I & 0 Intake and Output 09/23/17 07:00 Intake Total 3328.2 ml Output Total 2365 ml Balance 963.2 ml IV Total 1815.2 ml Tube Feeding 1288 ml Other 225 ml Output Urine Total 2215 ml Gastric Drainage Total 150 ml PHYSICAL EXAM Physical Exam GEN: SEdated and intubated In no distress EYES: Sclera anicteric, Conjunctiva Normal EN: No EN Drainage, Mucous Membranes moist NECK: no JVD, + JVP, Supple, no Thyromegaly CVS: S1S2, min Murmur, No Gallop, No Rub,+ Edema RESP: ? Rales, no Rhonchi,no Acc. Muscle Use GI: BS hypoactive, NO Bruit, Non Tender, Non Distended : no CVA tenderness, no Suprapubic Tenderness DIAGNOSIS/ASSESSMENT GEO-ATN ? - Current fluid and E-lyte status does not necessitate emergent need for dialysis. Will re-evaluate for dialysis in the am ; Creat is stable, Mag - 3 Renal scan to eval further Suspect CKD III - with cortical thinning of Left Kidney; Possible CKD due to Ch NSAID use ? Analgesic Nephropathy - ch NSAID use noted SEVERE ANEMIA OA- now appears better - defer to Dr Celeste SEPSIS with PNEUMONIA and ? ARDS - defer to Pulm and ID MILD HYPERVOLEMIA - IV lasix started so watch Na on TF Min ^ed Na - anticipate worsening with Lasix to will change gtts to run in D5. WOuld like to minimize water flushes due to volume Edema - restarted Lasix; watch for -ve fluid balance Discussed Plan of Care with family at bedside COMMENT/RELEVANT DATA Meds Current Medications Medications (Trade) Dose Ordered Sig/[place] Start Time Stop Time Status Last Admin Dose Admin Albumin Human 250 ml @ 62.5 mls/hr 1X ONCE 09/21/17 11:30 09/21/17 15:29 DC 09/21/17 14:29 62.5 MLS/HR Albuterol/ Ipratropium (Duoneb) 3 ml Q4HRS 09/17/17 20:00 09/23/17 08:13 3 ML Alprazolam (Xanax) 1 mg PRN TID PRN 09/17/17 22:30 09/19/17 02:19 1 MG Amino Acids/ Glycerin/ Electrolytes 1,000 ml @ 80 mls/hr [id number] 09/20/17 10:00 09/22/17 07:02 DC 09/21/17 01:21 80 MLS/HR Atropine Sulfate 0.5 mg PRN Q5MIN PRN 09/21/17 15:30 Azithromycin (Zithromax) 250 mg DAILY 09/18/17 09:00 09/19/17 10:30 DC 09/18/17 10:25 250 MG Azithromycin 500 mg/Sodium Chloride 250 ml @ 250 mls/hr Q24H 09/19/17 16:30 09/22/17 17:30 250 MLS/HR Budesonide (Pulmicort) 0.5 mg 1X ONCE 09/19/17 10:45 09/19/17 10:46 DC 09/19/17 12:50 0.5 MG Ceftriaxone Sodium 1 gm/ Dextrose 50 ml @ 100 mls/hr Q24H 09/17/17 17:15 UNV Ceftriaxone Sodium (Rocephin) 1 gm Q24H 09/18/17 16:00 09/19/17 10:30 DC 09/18/17 17:55 1 GM Chlorhexidine Gluconate (Peridex) 15 ml BID 09/22/17 21:00 09/23/17 08:31 15 ML Dexmedetomidine HCl 200 mcg/ Sodium Chloride 50 ml @ 0 mls/hr CONT PRN 09/21/17 15:30 09/21/17 15:54 3.6 MLS/HR Epinephrine HCl (EPINEPHrine SYRINGE) 1 mg STK-MED ONCE 09/20/17 12:00 09/21/17 09:11 DC Fentanyl Citrate 30 ml @ 0 mls/hr CONT PRN 09/19/17 11:30 09/23/17 07:20 4.95 MLS/HR Fentanyl Citrate (Fentanyl 2ml Vial) 50 mcg 1X ONCE 09/19/17 11:00 09/19/17 11:01 DC Furosemide (Lasix) 20 mg DAILY 09/23/17 11:30 Guaifenesin (Robitussin Dm) 10 ml PRN Q6HRS PRN 09/17/17 17:15 Haloperidol Lactate (Haldol) 5 mg PRN Q12HRS PRN 09/18/17 13:45 Influenza Virus Vaccine Quadrival (Fluarix Quad [id number] Syringe) 0.5 ml ONCE ONCE 09/17/17 21:00 09/17/17 21:01 DC Info 1 each PRN DAILY PRN 09/20/17 11:00 UNV Info (Do NOT chart on this placeholder) 1 each 1X ONCE 09/17/17 19:00 09/17/17 19:01 UNV Iron Sucrose 500 mg/Sodium Chloride 275 ml @ 78.571 mls/ hr 1X ONCE 09/18/17 09:00 09/18/17 12:29 DC 09/18/17 10:24 78.571 MLS/HR Lidocaine/Sodium Bicarbonate (Buffered Lidocaine 1%) 3 ml 1X ONCE 09/19/17 14:45 09/19/17 14:46 DC Lorazepam (Ativan) 1 mg PRN Q1HR PRN 09/21/17 11:15 09/23/17 05:49 1 MG Methylprednisolone Sodium Succinate (SOLU-Medrol 125MG VIAL) 80 mg Q8HRS 09/23/17 14:00 Micafungin Sodium 100 mg/Dextrose 100 ml @ 100 mls/hr Q24H 09/21/17 12:00 09/22/17 12:26 100 MLS/HR Midazolam HCl (Versed) 5 mg STK-MED ONCE 09/19/17 11:00 09/20/17 08:44 DC Norepinephrine Bitartrate (Levophed 8mg/ 250ml Premix Drip) 8 mg STK-MED ONCE 09/19/17 11:00 09/20/17 08:44 DC Ondansetron HCl (Zofran) 4 mg PRN Q8HRS PRN 09/17/17 16:30 09/18/17 16:29 DC Oxycodone/ Acetaminophen (Percocet 5/325) 1 tab PRN Q6HRS PRN 09/18/17 12:15 09/18/17 13:23 1 TAB Pantoprazole Sodium (Protonix Vial) 40 mg DAILYAC 09/19/17 11:30 09/23/17 07:14 40 MG Pantoprazole Sodium (Protonix) 40 mg DAILYAC 09/18/17 11:00 09/19/17 13:41 DC 09/18/17 10:47 40 MG Piperacillin Sod/ Tazobactam Sod (Zosyn Per Pharmacy) 1 each PRN DAILY PRN 09/19/17 10:30 Piperacillin Sod/ Tazobactam Sod (Zosyn) 3.375 gm Q6HRS 09/19/17 11:00 09/23/17 05:49 3.375 GM Potassium Chloride (Klor-Con) 40 meq 1X ONCE 09/18/17 11:45 09/18/17 11:46 DC Prednisone (Prednisone) 40 mg DAILY 09/19/17 11:00 09/20/17 09:02 DC Propofol 100 ml @ 0 mls/hr CONT PRN 09/21/17 16:45 Quetiapine Fumarate (SEROquel) 25 mg HS 09/18/17 21:00 09/19/17 10:35 DC 09/18/17 21:03 25 MG Sodium Bicarbonate 50 meq 1X ONCE 09/19/17 12:45 09/19/17 12:46 DC 09/19/17 13:23 50 MEQ Sodium Chloride 500 ml @ 500 mls/hr 1X PRN PRN 09/21/17 15:30 Succinylcholine Chloride (Anectine) 100 mg 1X ONCE 09/19/17 11:30 09/19/17 11:39 DC 09/19/17 11:42 100 MG Vancomycin HCl 1 each 1X ONCE 09/21/17 14:30 09/21/17 14:31 DC 09/21/17 14:30 1 EACH Vancomycin HCl (Vanco Per Pharmacy) 1 each PRN DAILY PRN 09/19/17 10:30 09/22/17 15:02 1 EACH Vancomycin HCl 1.25 gm/Dextrose 250 ml @ 166.667 mls/hr Q24H 09/20/17 15:00 09/22/17 14:51 166.667 MLS/HR Vancomycin HCl 2 gm/Dextrose 500 ml @ 250 mls/hr 1X ONCE 09/19/17 11:00 09/19/17 12:59 DC 09/19/17 14:53 250 MLS/HR Vecuronium [place] (Norcuron Bolus) 4 mg PRN Q4HRS PRN 09/21/17 15:00 Lab Laboratory Tests Test 09/23/17 05:50 09/23/17 09:00 White Blood Count 13.4 x10^3/uL (4.0-11.0) Red Blood Count 3.72 x10^6/uL (3.50-5.40) Hemoglobin 9.4 g/dL (12.0-15.5) Hematocrit 30.3 % (36.0-47.0) Mean Corpuscular Volume 81 fL (79-100) Mean Corpuscular Hemoglobin 25 pg (25-35) Mean Corpuscular Hemoglobin Concent 31 g/dL (31-37) Red Cell Distribution Width 25.5 % (11.5-14.5) Platelet Count 255 x10^3/uL (140-400) Neutrophils (%) (Auto) 92 % (31-73) Lymphocytes (%) (Auto) 4 % (24-48) Monocytes (%) (Auto) 3 % (0-9) Eosinophils (%) (Auto) 0 % (0-3) Basophils (%) (Auto) 0 % (0-3) Neutrophils # (Auto) 12.4 x10^3uL (1.8-7.7) Lymphocytes # (Auto) 0.6 x10^3/uL (1.0-4.8) Monocytes # (Auto) 0.4 x10^3/uL (0.0-1.1) Eosinophils # (Auto) 0.0 x10^3/uL (0.0-0.7) Basophils # (Auto) 0.0 x10^3/uL (0.0-0.2) Sodium Level 149 mmol/L (136-145) Potassium Level 3.5 mmol/L (3.5-5.1) Chloride Level 113 mmol/L (98-107) Carbon Dioxide Level 23 mmol/L (21-32) Anion Gap 13 (6-14) Blood Urea Nitrogen 57 mg/dL (7-20) Creatinine 1.6 mg/dL (0.6-1.0) Estimated GFR (Cockcroft-Gault) 32.9 BUN/Creatinine Ratio 36 (6-20) Glucose Level 206 mg/dL (70-99) Calcium Level 8.8 mg/dL (8.5-10.1) Total Bilirubin 0.5 mg/dL (0.2-1.0) Aspartate Amino Transf (AST/SGOT) 46 U/L (15-37) Alanine Aminotransferase (ALT/SGPT) 111 U/L (14-59) Alkaline Phosphatase 69 U/L (46-116) Total Protein 5.5 g/dL (6.4-8.2) Albumin 2.5 g/dL (3.4-5.0) Albumin/Globulin Ratio 0.8 (1.0-1.7) O2 Saturation 89 % (92-99) Arterial Blood pH 7.39 (7.35-7.45) Arterial Blood pCO2 at Patient Temp 34 mmHg (35-46) Arterial Blood pO2 at Patient Temp 61 mmHg (65-108) Arterial Blood HCO3 20 mmol/L (21-28) Arterial Blood Base Excess -4 mmol/L (-3-3) FiO2 40 Other Findings: The kidneys demonstrate normal cortical echotexture. Mild cortical thinning of the left kidney. Corticomedullary differentiation is preserved. There is no hydronephrosis. The right kidney measures 9.6 cm. The left kidney measures 10.6 cm. Bladder contains Mayorga catheter and is decompressed and cannot be evaluated. IMPRESSION: 1. Mild cortical thinning of the left kidney. 2. No hydronephrosis. ARCADIO RODRIGUEZ MD Sep 23, 2017 11:32
--- NOTE | 2017-09-23 11:39 | RAD ---
AP PORTABLE CHEST Clinical Indication: ARDS/RF. Respiratory failure Comparison: AP chest, prior day. Findings: Endotracheal and enteric tubes and right IJ central line are stable. The cardiomediastinal silhouette is stable. There are diffuse interstitial and alveolar opacities, now improved in the left midlung. Small bilateral pleural effusions. No pneumothorax is seen. IMPRESSION: 1. Stable life support devices. 2. Diffuse interstitial and alveolar opacities, now improved in the left midlung.
[2017-09-23 12:27] LABS: NUCLEATED RBC 1
[2017-09-23 12:28] LABS: ANISOCYTOSIS MOD; PLT ESTIMATE ADEQUATE (ADEQUATE)
[2017-09-23] MEDS: VANCOMYCIN PER PHARMACY MC PRN (12:36)
[2017-09-23] MEDS: IV DEXTROSE 5% 1,000 ML IV SCH (13:16)
[2017-09-23] MEDS: MICAFUNGIN 100 MG in IV DEXTROSE 5% 100 ML IV SCH (13:17)
[2017-09-23] MEDS: PROPOFOL 100 ML IV PRN ×2 (14:42→22:01)
--- NOTE | 2017-09-23 16:24 | PDOC ---
PROGRESS NOTES Chief Complaint Chief Complaint pneumonia, RML opacity, cough and dyspnea, and now bilateral opacity acute hypoxic respiratory failure consistent with ARDS, improved, down to 50% Fi02 to maintain, PEEP 10 possible underlying COPD sepsis, severe sepsis, anemia, acute on chronic, w. sepsis tobaccoism, anxiety d/o, can awaken easily History of Present Illness History of Present Illness intubated, again some difficulty maintaining sedation, started on propofol today, now on versed, ativan and propofol to keep her calm, and her BP is tolerating well marked hypoxia overnight, any movement causes hypoxia, trying to wean down 02 as able hgb improved, will add proph lovenox 02 improved, down to 50% Fi02, doing better Vitals Vitals Vital Signs Date Time Temp Pulse Resp B/P (MAP) Pulse Ox O2 Delivery O2 Flow Rate FiO2 09/23/17 16:10 99 Ventilator 09/23/17 15:08 22 09/23/17 07:00 63 92/64 (73) 09/23/17 04:00 97.6 97.6 Physical Exam General: mild distress, Other (sedated on vent) Heart: Normal S1, Normal S2 Lungs: Other (decrease bs) Abdomen: Normal bowel sounds, Soft, No hepatosplenomegaly Extremities: No clubbing, No edema, Normal pulses Skin: No rashes, No breakdown, No significant lesion Labs LABS Laboratory Tests Test 09/23/17 05:50 09/23/17 09:00 White Blood Count 13.4 x10^3/uL (4.0-11.0) Red Blood Count 3.72 x10^6/uL (3.50-5.40) Hemoglobin 9.4 g/dL (12.0-15.5) Hematocrit 30.3 % (36.0-47.0) Mean Corpuscular Volume 81 fL (79-100) Mean Corpuscular Hemoglobin 25 pg (25-35) Mean Corpuscular Hemoglobin Concent 31 g/dL (31-37) Red Cell Distribution Width 25.5 % (11.5-14.5) Platelet Count 255 x10^3/uL (140-400) Neutrophils (%) (Auto) 92 % (31-73) Lymphocytes (%) (Auto) 4 % (24-48) Monocytes (%) (Auto) 3 % (0-9) Eosinophils (%) (Auto) 0 % (0-3) Basophils (%) (Auto) 0 % (0-3) Neutrophils # (Auto) 12.4 x10^3uL (1.8-7.7) Lymphocytes # (Auto) 0.6 x10^3/uL (1.0-4.8) Monocytes # (Auto) 0.4 x10^3/uL (0.0-1.1) Eosinophils # (Auto) 0.0 x10^3/uL (0.0-0.7) Basophils # (Auto) 0.0 x10^3/uL (0.0-0.2) Segmented Neutrophils % 89 % (35-66) Band Neutrophils % 2 % (0-9) Lymphocytes % 6 % (24-48) Monocytes % 3 % (0-10) Nucleated Red Blood Cells 1 Platelet Estimate Adequate (ADEQUATE) Anisocytosis Mod Sodium Level 149 mmol/L (136-145) Potassium Level 3.5 mmol/L (3.5-5.1) Chloride Level 113 mmol/L (98-107) Carbon Dioxide Level 23 mmol/L (21-32) Anion Gap 13 (6-14) Blood Urea Nitrogen 57 mg/dL (7-20) Creatinine 1.6 mg/dL (0.6-1.0) Estimated GFR (Cockcroft-Gault) 32.9 BUN/Creatinine Ratio 36 (6-20) Glucose Level 206 mg/dL (70-99) Calcium Level 8.8 mg/dL (8.5-10.1) Total Bilirubin 0.5 mg/dL (0.2-1.0) Aspartate Amino Transf (AST/SGOT) 46 U/L (15-37) Alanine Aminotransferase (ALT/SGPT) 111 U/L (14-59) Alkaline Phosphatase 69 U/L (46-116) Total Protein 5.5 g/dL (6.4-8.2) Albumin 2.5 g/dL (3.4-5.0) Albumin/Globulin Ratio 0.8 (1.0-1.7) O2 Saturation 89 % (92-99) Arterial Blood pH 7.39 (7.35-7.45) Arterial Blood pCO2 at Patient Temp 34 mmHg (35-46) Arterial Blood pO2 at Patient Temp 61 mmHg (65-108) Arterial Blood HCO3 20 mmol/L (21-28) Arterial Blood Base Excess -4 mmol/L (-3-3) FiO2 40 Review of Systems Review of Systems unable Assessment and Plan Assessmemt and Plan ICU care Problems Medical Problems: (1) Dyspnea Status: Acute (2) Hypoalbuminemia Status: Acute (3) Metabolic acidosis Status: Acute (4) Pneumonia Status: Acute Problems: Comment Review of Relevant I have reviewed the following items tha (where applicable) has been applied. Labs Laboratory Tests Test 09/22/17 05:00 09/22/17 05:50 09/22/17 08:50 09/22/17 09:55 White Blood Count 19.0 x10^3/uL (4.0-11.0) Red Blood Count 3.69 x10^6/uL (3.50-5.40) Hemoglobin 8.9 g/dL (12.0-15.5) Hematocrit 30.4 % (36.0-47.0) Mean Corpuscular Volume 82 fL (79-100) Mean Corpuscular Hemoglobin 24 pg (25-35) Mean Corpuscular Hemoglobin Concent 29 g/dL (31-37) Red Cell Distribution Width 25.0 % (11.5-14.5) Platelet Count 330 x10^3/uL (140-400) Neutrophils (%) (Auto) 94 % (31-73) Lymphocytes (%) (Auto) 3 % (24-48) Monocytes (%) (Auto) 3 % (0-9) Eosinophils (%) (Auto) 0 % (0-3) Basophils (%) (Auto) 0 % (0-3) Neutrophils # (Auto) 17.8 x10^3uL (1.8-7.7) Lymphocytes # (Auto) 0.5 x10^3/uL (1.0-4.8) Monocytes # (Auto) 0.6 x10^3/uL (0.0-1.1) Eosinophils # (Auto) 0.0 x10^3/uL (0.0-0.7) Basophils # (Auto) 0.0 x10^3/uL (0.0-0.2) Sodium Level 145 mmol/L (136-145) Potassium Level 4.3 mmol/L (3.5-5.1) Chloride Level 111 mmol/L (98-107) Carbon Dioxide Level 24 mmol/L (21-32) Anion Gap 10 (6-14) Blood Urea Nitrogen 53 mg/dL (7-20) Creatinine 1.6 mg/dL (0.6-1.0) Estimated GFR (Cockcroft-Gault) 32.9 Glucose Level 185 mg/dL (70-99) Calcium Level 9.0 mg/dL (8.5-10.1) O2 Saturation 93 % (92-99) Arterial Blood pH 7.35 (7.35-7.45) Arterial Blood pCO2 at Patient Temp 32 mmHg (35-46) Arterial Blood pO2 at Patient Temp 77 mmHg (65-108) Arterial Blood HCO3 17 mmol/L (21-28) Arterial Blood Base Excess -7 mmol/L (-3-3) FiO2 80 Urine Random Sodium <60 mmol/L (Not Estab.) Test 09/22/17 10:00 09/23/17 05:50 09/23/17 09:00 Urine Collection Type Unknown Urine Color Yellow Urine Clarity Clear Urine pH 6.5 Urine Specific [place] 1.020 Urine Protein Negative mg/dL (NEG-TRACE) Urine Glucose (UA) Negative mg/dL (NEG) Urine Ketones (Stick) Negative mg/dL (NEG) Urine Blood Negative (NEG) Urine Nitrite Negative (NEG) Urine Bilirubin Negative (NEG) Urine Urobilinogen Dipstick 0.2 mg/dL (0.2 mg/dL) Urine Leukocyte Esterase Negative (NEG) Urine RBC Occ /HPF (0-2) Urine WBC 1-4 /HPF (0-4) Urine Squamous Epithelial Cells Occ /LPF Urine Bacteria 0 /HPF (0-FEW) Urine Hyaline Casts Occasional /HPF White Blood Count 13.4 x10^3/uL (4.0-11.0) Red Blood Count 3.72 x10^6/uL (3.50-5.40) Hemoglobin 9.4 g/dL (12.0-15.5) Hematocrit 30.3 % (36.0-47.0) Mean Corpuscular Volume 81 fL (79-100) Mean Corpuscular Hemoglobin 25 pg (25-35) Mean Corpuscular Hemoglobin Concent 31 g/dL (31-37) Red Cell Distribution Width 25.5 % (11.5-14.5) Platelet Count 255 x10^3/uL (140-400) Neutrophils (%) (Auto) 92 % (31-73) Lymphocytes (%) (Auto) 4 % (24-48) Monocytes (%) (Auto) 3 % (0-9) Eosinophils (%) (Auto) 0 % (0-3) Basophils (%) (Auto) 0 % (0-3) Neutrophils # (Auto) 12.4 x10^3uL (1.8-7.7) Lymphocytes # (Auto) 0.6 x10^3/uL (1.0-4.8) Monocytes # (Auto) 0.4 x10^3/uL (0.0-1.1) Eosinophils # (Auto) 0.0 x10^3/uL (0.0-0.7) Basophils # (Auto) 0.0 x10^3/uL (0.0-0.2) Segmented Neutrophils % 89 % (35-66) Band Neutrophils % 2 % (0-9) Lymphocytes % 6 % (24-48) Monocytes % 3 % (0-10) Nucleated Red Blood Cells 1 Platelet Estimate Adequate (ADEQUATE) Anisocytosis Mod Sodium Level 149 mmol/L (136-145) Potassium Level 3.5 mmol/L (3.5-5.1) Chloride Level 113 mmol/L (98-107) Carbon Dioxide Level 23 mmol/L (21-32) Anion Gap 13 (6-14) Blood Urea Nitrogen 57 mg/dL (7-20) Creatinine 1.6 mg/dL (0.6-1.0) Estimated GFR (Cockcroft-Gault) 32.9 BUN/Creatinine Ratio 36 (6-20) Glucose Level 206 mg/dL (70-99) Calcium Level 8.8 mg/dL (8.5-10.1) Total Bilirubin 0.5 mg/dL (0.2-1.0) Aspartate Amino Transf (AST/SGOT) 46 U/L (15-37) Alanine Aminotransferase (ALT/SGPT) 111 U/L (14-59) Alkaline Phosphatase 69 U/L (46-116) Total Protein 5.5 g/dL (6.4-8.2) Albumin 2.5 g/dL (3.4-5.0) Albumin/Globulin Ratio 0.8 (1.0-1.7) O2 Saturation 89 % (92-99) Arterial Blood pH 7.39 (7.35-7.45) Arterial Blood pCO2 at Patient Temp 34 mmHg (35-46) Arterial Blood pO2 at Patient Temp 61 mmHg (65-108) Arterial Blood HCO3 20 mmol/L (21-28) Arterial Blood Base Excess -4 mmol/L (-3-3) FiO2 40 Laboratory Tests Test 09/23/17 05:50 09/23/17 09:00 White Blood Count 13.4 x10^3/uL (4.0-11.0) Red Blood Count 3.72 x10^6/uL (3.50-5.40) Hemoglobin 9.4 g/dL (12.0-15.5) Hematocrit 30.3 % (36.0-47.0) Mean Corpuscular Volume 81 fL (79-100) Mean Corpuscular Hemoglobin 25 pg (25-35) Mean Corpuscular Hemoglobin Concent 31 g/dL (31-37) Red Cell Distribution Width 25.5 % (11.5-14.5) Platelet Count 255 x10^3/uL (140-400) Neutrophils (%) (Auto) 92 % (31-73) Lymphocytes (%) (Auto) 4 % (24-48) Monocytes (%) (Auto) 3 % (0-9) Eosinophils (%) (Auto) 0 % (0-3) Basophils (%) (Auto) 0 % (0-3) Neutrophils # (Auto) 12.4 x10^3uL (1.8-7.7) Lymphocytes # (Auto) 0.6 x10^3/uL (1.0-4.8) Monocytes # (Auto) 0.4 x10^3/uL (0.0-1.1) Eosinophils # (Auto) 0.0 x10^3/uL (0.0-0.7) Basophils # (Auto) 0.0 x10^3/uL (0.0-0.2) Segmented Neutrophils % 89 % (35-66) Band Neutrophils % 2 % (0-9) Lymphocytes % 6 % (24-48) Monocytes % 3 % (0-10) Nucleated Red Blood Cells 1 Platelet Estimate Adequate (ADEQUATE) Anisocytosis Mod Sodium Level 149 mmol/L (136-145) Potassium Level 3.5 mmol/L (3.5-5.1) Chloride Level 113 mmol/L (98-107) Carbon Dioxide Level 23 mmol/L (21-32) Anion Gap 13 (6-14) Blood Urea Nitrogen 57 mg/dL (7-20) Creatinine 1.6 mg/dL (0.6-1.0) Estimated GFR (Cockcroft-Gault) 32.9 BUN/Creatinine Ratio 36 (6-20) Glucose Level 206 mg/dL (70-99) Calcium Level 8.8 mg/dL (8.5-10.1) Total Bilirubin 0.5 mg/dL (0.2-1.0) Aspartate Amino Transf (AST/SGOT) 46 U/L (15-37) Alanine Aminotransferase (ALT/SGPT) 111 U/L (14-59) Alkaline Phosphatase 69 U/L (46-116) Total Protein 5.5 g/dL (6.4-8.2) Albumin 2.5 g/dL (3.4-5.0) Albumin/Globulin Ratio 0.8 (1.0-1.7) O2 Saturation 89 % (92-99) Arterial Blood pH 7.39 (7.35-7.45) Arterial Blood pCO2 at Patient Temp 34 mmHg (35-46) Arterial Blood pO2 at Patient Temp 61 mmHg (65-108) Arterial Blood HCO3 20 mmol/L (21-28) Arterial Blood Base Excess -4 mmol/L (-3-3) FiO2 40 Microbiology 09/17/17 Blood Culture - Final, Complete NO GROWTH AFTER 5 DAYS 09/20/17 AFB Specimen Processing Tissue - Final, Resulted 09/20/17 Acid Fast Bacilli Culture, Resulted Pending 09/20/17 Gram Stain - Final, Resulted 09/20/17 Fungal Culture, Resulted Pending 09/20/17 Fungal Culture Result 1, Resulted Pending Medications Current Medications Sodium Chloride 1,000 ml @ 125 mls/hr 1X ONCE IV Last administered on t 15:54; Start 09/17/17 at 15:15; Stop 09/17/17 at 23:14; Status DC Ondansetron HCl (Zofran) 4 mg PRN Q8HRS PRN IV NAUSEA/VOMITING; Start at 16:30; Stop 09/18/17 at 16:29; Status DC Ceftriaxone Sodium 50 ml @ 0 mls/hr 1X ONCE IV Last administered on 17:33; Start 09/17/17 at 16:45; Stop 09/17/17 at 16:46; Status DC Azithromycin 250 ml @ 250 mls/hr 1X ONCE IV Last administered on 09/17/17 22:38; Start 09/17/17 at 16:30; Stop 09/17/17 at 17:29; Status DC Albuterol/ Ipratropium (Duoneb) 3 ml 1X ONCE NEB Last administered on 17:00; Start 09/17/17 at 16:45; Stop 09/17/17 at 16:46; Status DC Potassium Chloride (Klor-Con) 40 meq 1X ONCE PO Last administered on 16:57; Start 09/17/17 at 16:45; Stop 09/17/17 at 16:46; Status DC Azithromycin (Zithromax) 250 mg DAILY PO Last administered on 09/18/17 10:25 ; Start 09/18/17 at 09:00; Stop 09/19/17 at 10:30; Status DC Ceftriaxone Sodium 1 gm/ Dextrose 50 ml @ 100 mls/hr Q24H IV ; Start 09/17/17 at 17:15; Status UNV Albuterol/ Ipratropium (Duoneb) 3 ml Q4HRS NEB Last administered on 09/23/17 16:10; Start 09/17/17 at 20:00 Ceftriaxone Sodium (Rocephin) 1 gm Q24H IVP Last administered on 09/18/17 17: 55; Start 09/18/17 at 16:00; Stop 09/19/17 at 10:30; Status DC Guaifenesin (Robitussin Dm) 10 ml PRN Q6HRS PRN PO COUGH; Start 09/17/17 at 17 :15 Sodium Chloride 1,000 ml @ 125 mls/hr 1X ONCE IV Last administered on 17:45; Start 09/17/17 at 17:15; Stop 09/17/17 at 22:12; Status DC Info (Do NOT chart on this placeholder) 1 each 1X ONCE MC ; Start 09/17/17 at 19:00; Stop 09/17/17 at 19:01; Status UNV Influenza Virus Vaccine Quadrival (Fluarix Quad 2258-2962 Syringe) 0.5 ml ONCE ONCE VAX IM ; Start 09/17/17 at 21:00; Stop 09/17/17 at 21:01; Status DC Sodium Chloride 1,000 ml @ 130 mls/hr 1X ONCE IV Last administered on 22:31; Start 09/17/17 at 22:30; Stop 09/18/17 at 06:11; Status DC Sodium Bicarbonate 50 meq 1X ONCE IV Last administered on 09/17/17 22:31; Start 09/17/17 at 22:30; Stop 09/17/17 at 22:31; Status DC Alprazolam (Xanax) 1 mg PRN TID PRN PO ANXIETY Last administered on 09/19/17 02:19; Start 09/17/17 at 22:30 Furosemide (Lasix) 20 mg 1X ONCE IVP Last administered on 09/18/17 06:24; Start 09/18/17 at 06:30; Stop 09/18/17 at 06:31; Status DC Potassium Chloride (Klor-Con) 40 meq 1X ONCE PO Last administered on 10:25; Start 09/18/17 at 09:00; Stop 09/18/17 at 09:01; Status DC Iron Sucrose 500 mg/Sodium Chloride 275 ml @ 78.571 mls/ hr 1X ONCE IV Last administered on 09/18/17 10:24; Start 09/18/17 at 09:00; Stop 09/18/17 at 12 :29; Status DC Furosemide (Lasix) 20 mg 1X ONCE IVP Last administered on 09/18/17 10:30; Start 09/18/17 at 10:00; Stop 09/18/17 at 10:22; Status DC Pantoprazole Sodium (Protonix) 40 mg DAILYAC PO Last administered on 10:47; Start 09/18/17 at 11:00; Stop 09/19/17 at 13:41; Status DC Furosemide (Lasix) 20 mg 1X ONCE IVP Last administered on 09/18/17 10:47; Start 09/18/17 at 10:45; Stop 09/18/17 at 10:46; Status DC Potassium Chloride (Klor-Con) 40 meq 1X ONCE PO ; Start 09/18/17 at 11:45; Stop 09/18/17 at 11:46; Status DC Oxycodone/ Acetaminophen (Percocet 5/325) 1 tab PRN Q6HRS PRN PO PAIN Last administered on 09/18/17 13:23; Start 09/18/17 at 12:15 Lorazepam (Ativan) 1 mg PRN Q4HRS PRN IV ANXIETY / AGITATION Last administered on 09/18/17 12:25; Start 09/18/17 at 12:15; Stop 09/18/17 at 13:34; Status DC Fentanyl Citrate (Fentanyl 2ml Vial) 50 mcg PRN Q2HR PRN IV PAIN Last administered on 09/19/17 04:09; Start 09/18/17 at 12:15 Lorazepam (Ativan) 2 mg PRN Q4HRS PRN IV ANXIETY / AGITATION Last administered on 09/23/17 14:29; Start 09/18/17 at 13:30 Quetiapine Fumarate (SEROquel) 25 mg HS PO Last administered on 09/18/17 21: 03; Start 09/18/17 at 21:00; Stop 09/19/17 at 10:35; Status DC Haloperidol Lactate (Haldol) 5 mg PRN Q12HRS PRN IVP AGITATION; Start at 13:45 Lorazepam (Ativan) 1 mg PRN Q4HRS PRN IV ANXIETY / AGITATION; Start 09/19/17 at 10:15; Stop 09/19/17 at 10:18; Status DC Lorazepam (Ativan) 4 mg 1X ONCE IV ; Start 09/19/17 at 10:30; Stop 09/19/17 at 10:31; Status DC Vancomycin HCl (Vanco Per Pharmacy) 1 each PRN DAILY PRN MC SEE COMMENTS Last administered on 09/23/17 12:36; Start 09/19/17 at 10:30 Piperacillin Sod/ Tazobactam Sod (Zosyn Per Pharmacy) 1 each PRN DAILY PRN MC SEE COMMENTS; Start 09/19/17 at 10:30 Vancomycin HCl 2 gm/Dextrose 500 ml @ 250 mls/hr 1X ONCE IV Last administered on 09/19/17 14:53; Start 09/19/17 at 11:00; Stop 09/19/17 at 12 :59; Status DC Piperacillin Sod/ Tazobactam Sod (Zosyn) 3.375 gm Q6HRS IVP Last administered on 09/23/17 13:17; Start 09/19/17 at 11:00 Budesonide (Pulmicort) 0.5 mg RTBID NEB Last administered on 09/23/17 08:13; Start 09/19/17 at 20:00 Budesonide (Pulmicort) 0.5 mg 1X ONCE NEB Last administered on 09/19/17 12: 50; Start 09/19/17 at 10:45; Stop 09/19/17 at 10:46; Status DC Pantoprazole Sodium (Protonix Vial) 40 mg DAILYAC IVP Last administered on 07:14; Start 09/19/17 at 11:30 Furosemide (Lasix) 40 mg DAILY IVP ; Start 09/19/17 at 11:00; Stop 09/20/17 at 13:20; Status DC Methylprednisolone Sodium Succinate (SOLU-Medrol 125MG VIAL) 125 mg 1X ONCE IV Last administered on 09/19/17 13:23; Start 09/19/17 at 10:45; Stop at 10:46; Status DC Prednisone (Prednisone) 40 mg DAILY PO ; Start 09/19/17 at 11:00; Stop at 09:02; Status DC Methylprednisolone Sodium Succinate (SOLU-Medrol 125MG VIAL) 125 mg Q8HRS IV Last administered on 09/23/17 05:43; Start 09/19/17 at 14:00; Stop 09/23/17 at 10:40; Status DC Midazolam HCl 100 ml @ 0 mls/hr CONT PRN IV SEE I/O RECORD; Start 09/19/17 at 11:00; Stop 09/19/17 at 12:51; Status DC Midazolam HCl (Versed) 5 mg 1X ONCE IV ; Start 09/19/17 at 11:00; Stop at 11:01; Status DC Fentanyl Citrate (Fentanyl 2ml Vial) 50 mcg 1X ONCE IV ; Start 09/19/17 at 11: 00; Stop 09/19/17 at 11:01; Status DC Midazolam HCl 100 ml @ As Directed STK-MED ONCE IV ; Start 09/19/17 at 10:55; Stop 09/19/17 at 10:56; Status DC Midazolam HCl (Versed) 5 mg STK-MED ONCE .ROUTE ; Start 09/19/17 at 10:55; Stop 09/19/17 at 10:56; Status DC Propofol 100 ml @ As Directed STK-MED ONCE IV ; Start 09/19/17 at 10:59; Stop 09/19/17 at 11:00; Status DC Norepinephrine Bitartrate 250 ml @ As Directed STK-MED ONCE IV ; Start at 10:59; Stop 09/19/17 at 11:00; Status DC Furosemide (Lasix) 20 mg 1X ONCE IVP ; Start 09/19/17 at 11:15; Stop at 11:16; Status DC Vecuronium [place] (Norcuron Bolus) 10 mg STK-MED ONCE IV ; Start 09/19/17 at 11:21; Stop 09/19/17 at 11:22; Status DC Fentanyl Citrate 30 ml @ 0 mls/hr CONT PRN IV PROTOCOL Last administered on 15:08; Start 09/19/17 at 11:30; Stop 09/23/17 at 15:24; Status DC Vecuronium [place] (Norcuron Bolus) 6 mg 1X ONCE IV Last administered on 09/19 11:42; Start 09/19/17 at 11:30; Stop 09/19/17 at 11:39; Status DC Propofol 10 ml @ 0 mls/hr 1X ONCE IV Last administered on 09/19/17 11:30; Start 09/19/17 at 11:30; Stop 09/19/17 at 11:39; Status DC Midazolam HCl 100 ml @ 0 mls/hr CONT PRN IV SEE I/O RECORD Last administered on 09/23/17 13:34; Start 09/19/17 at 11:30 Norepinephrine Bitartrate 250 ml @ 0 mls/hr CONT PRN IV SEE I/O RECORD Last administered on 09/21/17 02:10; Start 09/19/17 at 11:30 Succinylcholine Chloride ([place]) 100 mg 1X ONCE IV Last administered on 11:42; Start 09/19/17 at 11:30; Stop 09/19/17 at 11:39; Status DC Sodium Bicarbonate 50 meq 1X ONCE IV Last administered on 09/19/17 13:23; Start 09/19/17 at 12:45; Stop 09/19/17 at 12:46; Status DC Sodium Bicarbonate 50 meq 1X ONCE IV Last administered on 09/19/17 13:23; Start 09/19/17 at 12:45; Stop 09/19/17 at 12:46; Status DC Lidocaine/Sodium Bicarbonate (Buffered Lidocaine 1%) 20 ml STK-MED ONCE IJ ; Start 09/19/17 at 13:34; Stop 09/19/17 at 13:35; Status DC Vecuronium [place] (Norcuron Bolus) 10 mg 1X ONCE IV Last administered on 15:05; Start 09/19/17 at 14:00; Stop 09/19/17 at 14:02; Status DC Lidocaine/Sodium Bicarbonate (Buffered Lidocaine 1%) 3 ml 1X ONCE IJ ; Start 09/19/17 at 14:45; Stop 09/19/17 at 14:46; Status DC Vancomycin HCl 1.25 gm/Dextrose 250 ml @ 166.667 mls/hr Q24H IV Last administered on 09/22/17 14:51; Start 09/20/17 at 15:00 Vancomycin HCl 1 each 1X ONCE MC Last administered on 09/21/17 14:30; Start 09/21/17 at 14:30; Stop 09/21/17 at 14:31; Status DC Azithromycin 500 mg/Sodium Chloride 250 ml @ 250 mls/hr Q24H IV Last administered on 09/22/17 17:30; Start 09/19/17 at 16:30 Norepinephrine Bitartrate (Levophed 8mg/ 250ml Premix Drip) 8 mg STK-MED ONCE IV ; Start 09/19/17 at 11:00; Stop 09/20/17 at 08:44; Status DC Midazolam HCl (Versed) 5 mg STK-MED ONCE .ROUTE ; Start 09/19/17 at 11:00; Stop 09/20/17 at 08:44; Status DC Amino Acids/ Glycerin/ Electrolytes 1,000 ml @ 80 mls/hr [id number] IV Last administered on 09/21/17 01:21; Start 09/20/17 at 10:00; Stop 09/22/17 at 07 :02; Status DC Info 1 each PRN DAILY PRN MC SEE COMMENTS; Start 09/20/17 at 10:00; Stop at 12:14; Status DC Furosemide (Lasix) 20 mg 1X ONCE IVP Last administered on 09/20/17t 10:21; Start 09/20/17 at 10:15; Stop 09/20/17 at 10:18; Status DC Info 1 each PRN DAILY PRN MC SEE COMMENTS; Start 09/20/17 at 11:00; Status UNV Vecuronium [place] (Norcuron Bolus) 10 mg 1X ONCE IV Last administered on 12:03; Start 09/20/17 at 11:15; Stop 09/20/17 at 11:24; Status DC Atropine Sulfate 0.5 mg STK-MED ONCE .ROUTE ; Start 09/20/17 at 11:47; Stop at 11:48; Status DC Epinephrine HCl (EPINEPHrine SYRINGE) 1 mg STK-MED ONCE .ROUTE ; Start at 11:47; Stop 09/20/17 at 11:48; Status DC Atropine Sulfate 0.5 mg STK-MED ONCE .ROUTE ; Start 09/20/17 at 12:00; Stop at 09:11; Status DC Epinephrine HCl (EPINEPHrine SYRINGE) 1 mg STK-MED ONCE .ROUTE ; Start at 12:00; Stop 09/21/17 at 09:11; Status DC Furosemide (Lasix) 20 mg DAILY IVP ; Start 09/21/17 at 11:15; Stop 09/21/17 at 11:20; Status DC Lorazepam (Ativan) 1 mg PRN Q1HR PRN IV ANXIETY / AGITATION Last administered on 09/23/17 05:49; Start 09/21/17 at 11:15 Albumin Human 250 ml @ 62.5 mls/hr 1X ONCE IV Last administered on 11:57; Start 09/21/17 at 11:30; Stop 09/21/17 at 15:29; Status DC Albumin Human 250 ml @ 62.5 mls/hr 1X ONCE IV Last administered on 14:29; Start 09/21/17 at 11:30; Stop 09/21/17 at 15:29; Status DC Micafungin Sodium 100 mg/Dextrose 100 ml @ 100 mls/hr Q24H IV Last administered on 09/23/17 13:17; Start 09/21/17 at 12:00 Vecuronium [place] (Norcuron Bolus) 4 mg PRN Q4HRS PRN IV AGITATION; Start at 15:00 Dexmedetomidine HCl 200 mcg/ Sodium Chloride 50 ml @ 0 mls/hr CONT PRN IV PER PROTOCOL Last administered on 09/21/17 15:54; Start 09/21/17 at 15:30 Sodium Chloride 500 ml @ 500 mls/hr 1X PRN PRN IV SEE COMMENTS; Start at 15:30 Atropine Sulfate 0.5 mg PRN Q5MIN PRN IV SEE COMMENTS; Start 09/21/17 at 15:30 Propofol 100 ml @ 0 mls/hr CONT PRN IV PER PROTOCOL Last administered on 14:42; Start 09/21/17 at 16:45 Furosemide (Lasix) 20 mg 1X ONCE IVP Last administered on 09/22/17 09:41; Start 09/22/17 at 10:15; Stop 09/22/17 at 10:16; Status DC Chlorhexidine Gluconate (Peridex) 15 ml BID MM Last administered on 09/23/17 08:31; Start 09/22/17 at 21:00 Furosemide (Lasix) 20 mg 1X ONCE IVP Last administered on 09/22/17 17:55; Start 09/22/17 at 18:00; Stop 09/22/17 at 18:01; Status DC Furosemide (Lasix) 20 mg DAILY IVP Last administered on 09/23/17 13:16; Start 09/23/17 at 11:30 Methylprednisolone Sodium Succinate (SOLU-Medrol 125MG VIAL) 80 mg Q8HRS IV Last administered on 09/23/17 13:16; Start 09/23/17 at 14:00 Fentanyl Citrate 55 ml @ 0 mls/hr CONT PRN PRN IV PER PROTOCOL; Start at 12:15 Dextrose 1,000 ml @ 25 mls/hr Q24H IV Last administered on 09/23/17 13:16; Start 09/23/17 at 11:45 Active Scripts Active Reported Gabapentin 300 Mg Capsule 300 Mg PO TID Cymbalta (Duloxetine Hcl) 60 Mg Capsule.dr 1 Cap PO BID Hydrochlorothiazide Tablet (Hydrochlorothiazide) 25 Mg Tablet 1 Tab PO DAILY Xanax (Alprazolam) 1 Mg Tablet 1 Tab PO TID PRN Vitals/I & O Vital Sign - Last 24 Hours 09/22/17 09/22/17 09/22/17 09/22/17 17:00 17:30 17:36 18:00 Pulse 84 84 Resp 22 22 B/P (MAP) 137/87 (104) 124/77 (93) Pulse Ox 100 100 100 O2 Delivery Ventilator Ventilator Ventilator Ventilator 09/22/17 09/22/17 09/22/17 09/22/17 18:23 19:00 19:53 20:00 Temp 98.7 98.7 Pulse 82 Resp 22 22 B/P (MAP) 100/62 (75) Pulse Ox 100 100 100 O2 Delivery Ventilator Ventilator Ventilator Mechanical Ventilator 09/22/17 09/22/17 09/22/17 09/22/17 20:00 21:00 21:14 22:00 Pulse 69 60 62 Resp 22 22 22 B/P (MAP) 106/57 (73) 90/55 (67) 101/65 (77) Pulse Ox 100 100 100 100 O2 Delivery Ventilator Ventilator Ventilator Ventilator 09/22/17 09/22/17 09/23/17 09/23/17 23:00 23:19 00:00 00:00 Temp 98.0 98.0 Pulse 62 65 Resp 22 22 B/P (MAP) 96/65 (75) 96/58 (71) Pulse Ox 100 100 100 O2 Delivery Ventilator Ventilator Ventilator Mechanical Ventilator 09/23/17 09/23/17 09/23/17 09/23/17 01:00 01:15 02:00 03:00 Pulse 61 64 60 Resp 22 22 22 B/P (MAP) 95/67 (76) 91/59 (70) 92/65 (74) Pulse Ox 94 95 96 97 O2 Delivery Ventilator Ventilator Ventilator Ventilator 09/23/17 09/23/17 09/23/17 09/23/17 03:20 04:00 04:00 05:00 Temp 97.6 97.6 Pulse 63 65 Resp 22 22 B/P (MAP) 92/69 (77) 91/65 (74) Pulse Ox 97 97 95 O2 Delivery Ventilator Ventilator Mechanical Ventilator Ventilator 09/23/17 09/23/17 09/23/17 09/23/17 05:35 06:00 07:00 07:20 Pulse 70 63 Resp 22 22 22 B/P (MAP) 112/73 (86) 92/64 (73) Pulse Ox 97 94 97 97 O2 Delivery Ventilator Ventilator Ventilator Ventilator 09/23/17 09/23/17 09/23/17 09/23/17 08:00 08:13 10:20 11:47 Resp 22 Pulse Ox 96 98 98 O2 Delivery Mechanical Ventilator Ventilator Ventilator Ventilator 09/23/17 09/23/17 09/23/17 09/23/17 11:49 12:00 12:30 13:11 Resp 22 Pulse Ox 100 99 98 O2 Delivery Ventilator Mechanical Ventilator Ventilator Ventilator 09/23/17 09/23/17 15:08 16:10 Resp 22 Pulse Ox 99 99 O2 Delivery Ventilator Ventilator Intake and Output 09/22/17 09/22/17 09/23/17 15:00 23:00 07:00 Intake Total 725 ml 1958.3 ml 644.9 ml Output Total 1145 ml 885 ml 335 ml Balance -420 ml 1073.3 ml 309.9 ml ABELARDO MOORE MD Sep 23, 2017 16:24
[2017-09-23] MEDS: ENOXAPARIN 40 MG/0.4 ML SYRINGE. SQ SCH (17:00)
[2017-09-23] MEDS: AZITHROMYCIN 500 MG in IV NORMAL SALINE 250ML 250 ML IV SCH (17:19)
[2017-09-23] MEDS: VANCOMYCIN 1.25 GM in IV DEXTROSE 5% 250 ML IV SCH (17:19)
[2017-09-23] MEDS: fentaNYL HIGH DOSE PCA 55 ML IV PRN (21:03)
[2017-09-24] VITALS (26 sets, daily range): BP systolic 91–125; BP diastolic 62–81
[2017-09-24] MEDS: PIPERACILLIN/TAZO IV Push 3.375 GM VIAL. IVP SCH ×5 (00:05→23:44)
[2017-09-24] MEDS: MIDAZOLAM 100MG/100ML PREMIX 100 ML IV PRN ×4 (01:07→21:04)
[2017-09-24] MEDS: IPRATRPIUM/ALBUTEROL 0.5/2.5MG 3 ML NEBU. NEB SCH ×6 (03:08→23:49)
[2017-09-24] MEDS: NOREPINEPHRIN PREMIX 250 ML IV PRN (05:18)
[2017-09-24] MEDS: methylPREDNISolone SOD SUCC PF 125 MG/2 ML VIAL. IV SCH ×3 (05:31→21:53)
[2017-09-24 06:13] LABS: ALBUMIN 2.4 g/dL (3.4-5.0); ALBUMIN/GLOBULIN RATIO 0.9 (1.0-1.7); CALCIUM 8.5 mg/dL (8.5-10.1); CREATININE 1.5 mg/dL (0.6-1.0); GFR 35.4; POTASSIUM 3.7 mmol/L (3.5-5.1); TOTAL BILIRUBIN 0.5 mg/dL (0.2-1.0); TOTAL PROTEIN 5.2 g/dL (6.4-8.2)
[2017-09-24 06:52] LABS: BASO % 0 % (0-3); EOS % 0 % (0-3); HEMATOCRIT 29.3 % (36.0-47.0); HEMOGLOBIN 8.7 g/dL (12.0-15.5); LYMPH # 0.3 x10^3/uL (1.0-4.8); LYMPH % 2 % (24-48); MEAN CORPUSCULAR HEMOGLOBIN 24 pg (25-35); MEAN CORPUSCULAR HGB CONC 30 g/dL (31-37); MEAN CORPUSCULAR VOLUME 82 fL (79-100); MONO % 4 % (0-9); NEUT % 94 % (31-73); PLATELET COUNT 247 x10^3/uL (140-400); RED BLOOD COUNT 3.57 x10^6/uL (3.50-5.40); RED CELL DISTRIBUTION WIDTH 25.8 % (11.5-14.5); WHITE BLOOD COUNT 13.6 x10^3/uL (4.0-11.0)
[2017-09-24] MEDS: BUDESONIDE 0.5 MG/2 ML NEBU. NEB SCH ×2 (07:47→19:43)
--- NOTE | 2017-09-24 07:49 | RAD ---
EXAM: Chest one view. HISTORY: Respiratory failure, intubated. COMPARISON: 09/23/2017. FINDINGS: A frontal view of the chest is obtained. There are limitations from rotation to the left. An endotracheal tube has its tip 4 cm above the radha. A nasogastric tube has its tip below the inferior margin of the field of view. A right subclavian central venous catheter has its tip in the superior cavoatrial junction. Basilar predominant interstitial and airspace opacities are consistent with mild pulmonary edema. Retrocardiac consolidation may also be present. A small left pleural effusion is suspected. There is no pneumothorax. The heart is not enlarged. IMPRESSION: 1. Mild pulmonary edema. Small left pleural effusion. 2. Correlate clinically for superimposed left lower lobe pneumonia.
[2017-09-24 08:13] LABS: HCO3 ABG 22 mmol/L (21-28); PCO2 ABG 36 mmHg (35-46); PH ABG 7.41 (7.35-7.45); PO2 ABG 108 mmHg (65-108); SAT O2 ABG 98 % (92-99)
[2017-09-24 08:16] LABS: FIO2 ABG 50
--- NOTE | 2017-09-24 08:34 | PDOC ---
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0) Mean Corpuscular Volume 82 fL (79-100) Mean Corpuscular Hemoglobin 24 pg (25-35) Mean Corpuscular Hemoglobin Concent 30 g/dL (31-37) Red Cell Distribution Width 25.8 % (11.5-14.5) Platelet Count 247 x10^3/uL (140-400) Neutrophils (%) (Auto) 94 % (31-73) Lymphocytes (%) (Auto) 2 % (24-48) Monocytes (%) (Auto) 4 % (0-9) Eosinophils (%) (Auto) 0 % (0-3) Basophils (%) (Auto) 0 % (0-3) Neutrophils # (Auto) 12.8 x10^3uL (1.8-7.7) Lymphocytes # (Auto) 0.3 x10^3/uL (1.0-4.8) Monocytes # (Auto) 0.5 x10^3/uL (0.0-1.1) Eosinophils # (Auto) 0.0 x10^3/uL (0.0-0.7) Basophils # (Auto) 0.0 x10^3/uL (0.0-0.2) Sodium Level 147 mmol/L (136-145) Potassium Level 3.7 mmol/L (3.5-5.1) Chloride Level 113 mmol/L (98-107) Carbon Dioxide Level 26 mmol/L (21-32) Anion Gap 8 (6-14) Blood Urea Nitrogen 55 mg/dL (7-20) Creatinine 1.5 mg/dL (0.6-1.0) Estimated GFR (Cockcroft-Gault) 35.4 BUN/Creatinine Ratio 37 (6-20) Glucose Level 230 mg/dL (70-99) Calcium Level 8.5 mg/dL (8.5-10.1) Total Bilirubin 0.5 mg/dL (0.2-1.0) Aspartate Amino Transf (AST/SGOT) 31 U/L (15-37) Alanine Aminotransferase (ALT/SGPT) 101 U/L (14-59) Alkaline Phosphatase 62 U/L (46-116) Total Protein 5.2 g/dL (6.4-8.2) Albumin 2.4 g/dL (3.4-5.0) Albumin/Globulin Ratio 0.9 (1.0-1.7) Micro culture neg Objective Assessment Acute Resp failure - intubated Strep/Legionella antigens - neg. S/p Bronch 09/20 , no growth to date Hypotension, now off Levophed Lactic normal/Procalcitonin mild - elevation Pulm infiltrates - ARDS ? if transfusions could be playing into resp failure Anemia - on arrival s/p PRBCs - GI following Leukocytosis - on steroids now and S/p PRBCs GEO -stable Transaminitis - ? reactive COPD H/o Leg wounds - no recent abx per for wounds - last amox 6 weeks ago Influenza vaccine 09/17 - given Plan Plan of Care cont zosyn, d/c azithro and vanc Resp viral panel/Silver stain was ordered but cancelled by Pathology F/u Mycoplasma 09/20 pending Parvo (with anemia although no rash or joint pains) ANCA pending F/u labs and cults May need additional tests based on above results d/c micafungin d/w in detail CHRIS RODRIGUEZ MD Sep 24, 2017 08:34
--- NOTE | 2017-09-24 08:39 | PDOC ---
SUBJECTIVE ROS GEO/ CKD III remains sedated and intubated OBJECTIVE Vital Signs Vital Signs Date Time Temp Pulse Resp B/P (MAP) Pulse Ox O2 Delivery O2 Flow Rate FiO2 09/24/17 07:47 99 Ventilator 09/24/17 06:00 62 22 93/63 (73) 09/24/17 04:00 98.4 98.4 I & 0 Intake and Output 09/24/17 07:00 Intake Total 3800.5 ml Output Total 1875 ml Balance 1925.5 ml IV Total 1964.5 ml Tube Feeding 1535 ml Other 301 ml Output Urine Total 1875 ml Gastric Drainage Total 0 ml PHYSICAL EXAM Physical Exam GEN: SEdated and intubated In no distress EYES: Sclera anicteric, Conjunctiva Normal EN: No EN Drainage, Mucous Membranes moist NECK: no JVD, + JVP, Supple, no Thyromegaly CVS: S1S2, min Murmur, No Gallop, No Rub,+ Edema RESP: ? Rales, no Rhonchi,no Acc. Muscle Use; Occ wheeze - exp GI: BS hypoactive, NO Bruit, Non Tender, Non Distended : no CVA tenderness, no Suprapubic Tenderness DIAGNOSIS/ASSESSMENT GEO - Current fluid and E-lyte status does not necessitate emergent need for dialysis. Will re-evaluate for dialysis in the am ; Creat is stable, Mag - 3 Renal scan to eval further, UA is benign and Holly < 60 (making ATN less likely) . Hyaline casts are more desk representative of Pre-renal state hence VMN hence will hold lasix for now. Min ^ed Na - d/c Lasix; have changed gtts to run in D5. WOuld like to minimize water flushes due to volume/ pulm issues Azotemia - asso with Steroid use, Tf - watch off of Lasix Suspect CKD III - with cortical thinning of Left Kidney; Possible CKD due to Ch NSAID use ? Analgesic Nephropathy - ch NSAID use noted SEVERE ANEMIA OA- now appears better - defer to Dr Celeste SEPSIS with PNEUMONIA and ? ARDS - defer to Pulm and ID Lowish BP - may improve when sedation is weaned, watch off of Lasix Discussed Plan of Care with family at bedside COMMENT/RELEVANT DATA Meds Current Medications Medications (Trade) Dose Ordered Sig/Vernon Start Time Stop Time Status Last Admin Dose Admin Albumin Human 250 ml @ 62.5 mls/hr 1X ONCE 11/17/17 11:30 09/21/17 15:29 DC 09/21/17 14:29 62.5 MLS/HR Albuterol/ Ipratropium (Duoneb) 3 ml Q4HRS 09/17/17 20:00 09/24/17 07:47 3 ML Alprazolam (Xanax) 1 mg PRN TID PRN 09/17/17 22:30 09/19/17 02:19 1 MG Amino Acids/ Glycerin/ Electrolytes 1,000 ml @ 80 mls/hr [id number] 09/20/17 10:00 09/22/17 07:02 DC 09/21/17 01:21 80 MLS/HR Atropine Sulfate 0.5 mg PRN Q5MIN PRN 09/21/17 15:30 Azithromycin (Zithromax) 250 mg DAILY 09/18/17 09:00 09/19/17 10:30 DC 09/18/17 10:25 250 MG Azithromycin 500 mg/Sodium Chloride 250 ml @ 250 mls/hr Q24H 09/19/17 16:30 09/23/17 17:19 250 MLS/HR Budesonide (Pulmicort) 0.5 mg 1X ONCE 09/19/17 10:45 09/19/17 10:46 DC 09/19/17 12:50 0.5 MG Ceftriaxone Sodium 1 gm/ Dextrose 50 ml @ 100 mls/hr Q24H 09/17/17 17:15 UNV Ceftriaxone Sodium (Rocephin) 1 gm Q24H 09/18/17 16:00 09/19/17 10:30 DC 09/18/17 17:55 1 GM Chlorhexidine Gluconate (Peridex) 15 ml BID 09/22/17 21:00 09/23/17 21:01 15 ML Dexmedetomidine HCl 200 mcg/ Sodium Chloride 50 ml @ 0 mls/hr CONT PRN 09/21/17 15:30 09/21/17 15:54 3.6 MLS/HR Dextrose 1,000 ml @ 25 mls/hr Q24H 09/23/17 11:45 09/23/17 13:16 25 MLS/HR Enoxaparin Sodium (Lovenox 40mg Syringe) 40 mg Q24H 09/23/17 17:00 Enoxaparin Sodium (Lovenox Per Pharmacy Prophylaxis Dosing) 1 each PRN DAILY PRN 09/23/17 16:30 Epinephrine HCl (EPINEPHrine SYRINGE) 1 mg STK-MED ONCE 09/20/17 12:00 09/21/17 09:11 DC Fentanyl Citrate 55 ml @ 0 mls/hr CONT PRN PRN 09/23/17 12:15 09/23/17 21:03 1.98 MLS/HR Fentanyl Citrate (Fentanyl 2ml Vial) 50 mcg 1X ONCE 09/19/17 11:00 09/19/17 11:01 DC Furosemide (Lasix) 20 mg DAILY 09/23/17 11:30 09/23/17 13:16 20 MG Guaifenesin (Robitussin Dm) 10 ml PRN Q6HRS PRN 09/17/17 17:15 Haloperidol Lactate (Haldol) 5 mg PRN Q12HRS PRN 09/18/17 13:45 Influenza Virus Vaccine Quadrival (Fluarix Quad 2801-2266 Syringe) 0.5 ml ONCE ONCE 09/17/17 21:00 09/17/17 21:01 DC Info 1 each PRN DAILY PRN 09/20/17 11:00 UNV Info (Do NOT chart on this placeholder) 1 each 1X ONCE 09/17/17 19:00 09/17/17 19:01 UNV Iron Sucrose 500 mg/Sodium Chloride 275 ml @ 78.571 mls/ hr 1X ONCE 09/18/17 09:00 09/18/17 12:29 DC 09/18/17 10:24 78.571 MLS/HR Lidocaine/Sodium Bicarbonate (Buffered Lidocaine 1%) 3 ml 1X ONCE 09/19/17 14:45 09/19/17 14:46 DC Lorazepam (Ativan) 1 mg PRN Q1HR PRN 09/21/17 11:15 09/23/17 05:49 1 MG Methylprednisolone Sodium Succinate (SOLU-Medrol 125MG VIAL) 80 mg Q8HRS 09/23/17 14:00 09/24/17 05:31 80 MG Micafungin Sodium 100 mg/Dextrose 100 ml @ 100 mls/hr Q24H 09/21/17 12:00 09/23/17 13:17 100 MLS/HR Midazolam HCl (Versed) 5 mg STK-MED ONCE 09/19/17 11:00 09/20/17 08:44 DC Norepinephrine Bitartrate (Levophed 8mg/ 250ml Premix Drip) 8 mg STK-MED ONCE 09/19/17 11:00 09/20/17 08:44 DC Ondansetron HCl (Zofran) 4 mg PRN Q8HRS PRN 09/17/17 16:30 09/18/17 16:29 DC Oxycodone/ Acetaminophen (Percocet 5/325) 1 tab PRN Q6HRS PRN 09/18/17 12:15 09/18/17 13:23 1 TAB Pantoprazole Sodium (Protonix Vial) 40 mg DAILYAC 09/19/17 11:30 09/23/17 07:14 40 MG Pantoprazole Sodium (Protonix) 40 mg DAILYAC 09/18/17 11:00 09/19/17 13:41 DC 09/18/17 10:47 40 MG Piperacillin Sod/ Tazobactam Sod (Zosyn Per Pharmacy) 1 each PRN DAILY PRN 09/19/17 10:30 Piperacillin Sod/ Tazobactam Sod (Zosyn) 3.375 gm Q6HRS 09/19/17 11:00 09/24/17 05:31 3.375 GM Potassium Chloride (Klor-Con) 40 meq 1X ONCE 09/18/17 11:45 09/18/17 11:46 DC Prednisone (Prednisone) 40 mg DAILY 09/19/17 11:00 09/20/17 09:02 DC Propofol 100 ml @ 0 mls/hr CONT PRN 09/21/17 16:45 09/23/17 22:01 8.5 MLS/HR Quetiapine Fumarate (SEROquel) 25 mg HS 09/18/17 21:00 09/19/17 10:35 DC 09/18/17 21:03 25 MG Sodium Bicarbonate 50 meq 1X ONCE 09/19/17 12:45 09/19/17 12:46 DC 09/19/17 13:23 50 MEQ Sodium Chloride 500 ml @ 500 mls/hr 1X PRN PRN 09/21/17 15:30 Succinylcholine Chloride (Anectine) 100 mg 1X ONCE 09/19/17 11:30 09/19/17 11:39 DC 09/19/17 11:42 100 MG Vancomycin HCl 1 each 1X ONCE 09/21/17 14:30 09/21/17 14:31 DC 09/21/17 14:30 1 EACH Vancomycin HCl (Vanco Per Pharmacy) 1 each PRN DAILY PRN 09/19/17 10:30 09/23/17 12:36 1 EACH Vancomycin HCl 1.25 gm/Dextrose 250 ml @ 166.667 mls/hr Q24H 09/20/17 15:00 09/23/17 17:19 166.667 MLS/HR Vancomycin HCl 2 gm/Dextrose 500 ml @ 250 mls/hr 1X ONCE 09/19/17 11:00 09/19/17 12:59 DC 09/19/17 14:53 250 MLS/HR Vecuronium Perkins (Norcuron Bolus) 4 mg PRN Q4HRS PRN 09/21/17 15:00 Lab Laboratory Tests Test 09/23/17 09:00 09/24/17 05:30 09/24/17 07:45 O2 Saturation 89 % (92-99) 98 % (92-99) Arterial Blood pH 7.39 (7.35-7.45) 7.41 (7.35-7.45) Arterial Blood pCO2 at Patient Temp 34 mmHg (35-46) 36 mmHg (35-46) Arterial Blood pO2 at Patient Temp 61 mmHg (65-108) 108 mmHg (65-108) Arterial Blood HCO3 20 mmol/L (21-28) 22 mmol/L (21-28) Arterial Blood Base Excess -4 mmol/L (-3-3) -2 mmol/L (-3-3) FiO2 40 50 White Blood Count 13.6 x10^3/uL (4.0-11.0) Red Blood Count 3.57 x10^6/uL (3.50-5.40) Hemoglobin 8.7 g/dL (12.0-15.5) Hematocrit 29.3 % (36.0-47.0) Mean Corpuscular Volume 82 fL (79-100) Mean Corpuscular Hemoglobin 24 pg (25-35) Mean Corpuscular Hemoglobin Concent 30 g/dL (31-37) Red Cell Distribution Width 25.8 % (11.5-14.5) Platelet Count 247 x10^3/uL (140-400) Neutrophils (%) (Auto) 94 % (31-73) Lymphocytes (%) (Auto) 2 % (24-48) Monocytes (%) (Auto) 4 % (0-9) Eosinophils (%) (Auto) 0 % (0-3) Basophils (%) (Auto) 0 % (0-3) Neutrophils # (Auto) 12.8 x10^3uL (1.8-7.7) Lymphocytes # (Auto) 0.3 x10^3/uL (1.0-4.8) Monocytes # (Auto) 0.5 x10^3/uL (0.0-1.1) Eosinophils # (Auto) 0.0 x10^3/uL (0.0-0.7) Basophils # (Auto) 0.0 x10^3/uL (0.0-0.2) Sodium Level 147 mmol/L (136-145) Potassium Level 3.7 mmol/L (3.5-5.1) Chloride Level 113 mmol/L (98-107) Carbon Dioxide Level 26 mmol/L (21-32) Anion Gap 8 (6-14) Blood Urea Nitrogen 55 mg/dL (7-20) Creatinine 1.5 mg/dL (0.6-1.0) Estimated GFR (Cockcroft-Gault) 35.4 BUN/Creatinine Ratio 37 (6-20) Glucose Level 230 mg/dL (70-99) Calcium Level 8.5 mg/dL (8.5-10.1) Total Bilirubin 0.5 mg/dL (0.2-1.0) Aspartate Amino Transf (AST/SGOT) 31 U/L (15-37) Alanine Aminotransferase (ALT/SGPT) 101 U/L (14-59) Alkaline Phosphatase 62 U/L (46-116) Total Protein 5.2 g/dL (6.4-8.2) Albumin 2.4 g/dL (3.4-5.0) Albumin/Globulin Ratio 0.9 (1.0-1.7) ARCADIO RODRIGUEZ MD Sep 24, 2017 08:39
--- NOTE | 2017-09-24 09:17 | PDOC ---
Objective: Objective: Per RN, tube feeds going well, no bleeding, no BM. Vital Signs: Vital Signs Date Time Temp Pulse Resp B/P (MAP) Pulse Ox O2 Delivery O2 Flow Rate FiO2 09/24/17 07:47 99 Ventilator 09/24/17 06:00 62 22 93/63 (73) 09/24/17 04:00 98.4 98.4 Labs: Laboratory Tests Test 09/24/17 05:30 09/24/17 07:45 White Blood Count 13.6 x10^3/uL Red Blood Count 3.57 x10^6/uL Hemoglobin 8.7 g/dL Hematocrit 29.3 % Mean Corpuscular Volume 82 fL Mean Corpuscular Hemoglobin 24 pg Mean Corpuscular Hemoglobin Concent 30 g/dL Red Cell Distribution Width 25.8 % Platelet Count 247 x10^3/uL Neutrophils (%) (Auto) 94 % Lymphocytes (%) (Auto) 2 % Monocytes (%) (Auto) 4 % Eosinophils (%) (Auto) 0 % Basophils (%) (Auto) 0 % Neutrophils # (Auto) 12.8 x10^3uL Lymphocytes # (Auto) 0.3 x10^3/uL Monocytes # (Auto) 0.5 x10^3/uL Eosinophils # (Auto) 0.0 x10^3/uL Basophils # (Auto) 0.0 x10^3/uL Sodium Level 147 mmol/L Potassium Level 3.7 mmol/L Chloride Level 113 mmol/L Carbon Dioxide Level 26 mmol/L Anion Gap 8 Blood Urea Nitrogen 55 mg/dL Creatinine 1.5 mg/dL Estimated GFR (Cockcroft-Gault) 35.4 BUN/Creatinine Ratio 37 Glucose Level 230 mg/dL Calcium Level 8.5 mg/dL Total Bilirubin 0.5 mg/dL Aspartate Amino Transf (AST/SGOT) 31 U/L Alanine Aminotransferase (ALT/SGPT) 101 U/L Alkaline Phosphatase 62 U/L Total Protein 5.2 g/dL Albumin 2.4 g/dL Albumin/Globulin Ratio 0.9 O2 Saturation 98 % Arterial Blood pH 7.41 Arterial Blood pCO2 at Patient Temp 36 mmHg Arterial Blood pO2 at Patient Temp 108 mmHg Arterial Blood HCO3 22 mmol/L Arterial Blood Base Excess -2 mmol/L FiO2 50 Imaging: CXR 09/24 IMPRESSION: 1. Mild pulmonary edema. Small left pleural effusion. 2. Correlate clinically for superimposed left lower lobe pneumonia. PE: GEN: intubated LUNGS: vent, OG tube HEART: RRR ABD: BS+, soft NEURO/PSYCH: sedated A/P: STUART -Hgb stable -colonoscopy last year w/ polyp, remote h/o EGD, daily NSAID use -declined GI workup on admission -on IV PPI, OG w/ tube feeds Transaminitis - improved Resp failure - intubated on atbx and steroids, s/p bronch Hypotension GEO -- Continue same per GI. SHAHLA FISHER Sep 24, 2017 09:17
[2017-09-24] MEDS ORDERED: BISACODYL 5 MG TABLET.DR. PO PRN (09:30)
--- NOTE | 2017-09-24 09:47 | PATHOLOGY ---
CYTOPATHOLOGY REPORT CLINICAL HISTORY: Infiltrates and COPD, ? ARDS, Dyspnea, Effusion SPECIMEN(S) RECEIVED: A.Sputum FINAL DIAGNOSIS: A. Sputum, ThinPrep and GMS stain: - No malignant cells identified. - Focally reactive bronchial epithelial cells, few squamous epithelial cells, and pulmonary macrophages identified within a focally mucoid background containing scattered acute inflammatory cells. GMS stain is negative for pneumocystis organisms and positive for small budding yeast consistent with Amelia species. (JPM:mml; 09/22/2017) PATHOLOGIST: Shane Lozano M.D. REPORT ELECTRONICALLY SIGNED BY: Shane Lozano M.D. DATE/TIME: 09/24/2017 08:15 GROSS PATHOLOGY: A. Sputum: The specimen is submitted unfixed, labeled "Karina Marti". Received by the Cytology Department is less than one mL of cloudy colorless fluid. One ThinPrep slide for pap stain and one ThinPrep slides for silver stain were prepared. ( 09.20.2017 ) ENVIRONMENTAL STUDIES PROFESSOR(S): PHYLLIS Candelaria(ASCP) INITIAL CPT CODE(S): A; 96890, 60576 Professional services performed by [facility] [address] Technical services performed by [employer] at [address] [place] [address], [address], [place] [address]. PATIENT: KARINA MARTI /AGE: 6 1955 (Age: 62) SEX: F PATIENT #: [id number] ALT CASE #: SPECIMEN COLLECTION DATE: 09/20/2017 SPECIMEN RECEIVED DATE: 09/20/[address] [facility] [address] [place] [address], [address] [place] [address] PHONE: [phone] DIRECTOR: Carlos Duque M.D. * * * END OF REPORT * * *
--- NOTE | 2017-09-24 09:47 | PATHOLOGY ---
CYTOPATHOLOGY REPORT CLINICAL HISTORY: Resp. Failure SPECIMEN(S) RECEIVED: A.Bronchoalveolar lavage, RML B.Bronchoalveolar lavage,Lingula FINAL DIAGNOSIS: A. Right middle lobe, bronchoalveolar lavage, ThinPrep and cell block: - No malignant cells identified. - Focally reactive bronchial epithelial cells and pulmonary macrophages identified within a background of acute inflammatory cells. GMS stain is negative for pneumocystis organisms and yeast / fungal organisms. B. Lingula, bronchoalveolar lavage, ThinPrep and GMS stain: - No malignant cells identified. - Reactive bronchial epithelial cells and pulmonary macrophages identified within a background of acute inflammatory cells. GMS stain is negative for pneumocystis organisms and positive for yeast / fungal elements consistent with Amelia species. (JPM:mml; 09/22/2017) PATHOLOGIST: Shane Lozano M.D. REPORT ELECTRONICALLY SIGNED BY: Shane Lozano M.D. DATE/TIME: 09/24/2017 08:16 GROSS PATHOLOGY: A. Bronchoalveolar lavage, RML: The specimen is submitted unfixed, labeled "Karina Marti". Received by the Cytology Department is four mL of cloudy colorless fluid. One ThinPrep slide for pap stain and one ThinPrep slide for silver stain were prepared. B. Bronchoalveolar lavage,Lingula: The specimen is submitted unfixed, labeled "Karina Marti". Received by the Cytology Department is five mL of cloudy colorless fluid. One ThinPrep slide for pap stain and one ThinPrep slide for silver stain were prepared (mm 09.20.2017) ECHOCARDIOGRAPHER(S): PHYLLIS Candelaria(ASCP) INITIAL CPT CODE(S): A; 84516, 22366 B; 00098, 21494 Professional services performed by [facility] at [address] [address] Technical services performed by [facility] at [address] [place] [address], [address], [place] [address]. PATIENT: KARINA MARTI /AGE: 6 1955 (Age: 62) SEX: F PATIENT #: [id number] ALT CASE #: SPECIMEN COLLECTION DATE: 09/20/2017 SPECIMEN RECEIVED DATE: 09/20/[address] [facility] [address] [place] [address], [address] [place] [address] PHONE: [phone] DIRECTOR: Carlos Duque M.D. * * * END OF REPORT * * *
[2017-09-24] MEDS: PANTOPRAZOLE IV PUSH 40 MG VIAL. IVP SCH (10:35)
[2017-09-24] MEDS: CHLORHEXIDINE 0.12% 15 ML MOUTHWASH. MM SCH ×2 (10:36→21:03)
[2017-09-24] MEDS: IV DEXTROSE 5% 1,000 ML IV SCH ×2 (11:45→21:53)
--- NOTE | 2017-09-24 12:45 | PDOC ---
PULMONARY PROGRESS NOTES Subjective AC mode, intubated 09/19, sedated Vitals Vital Signs Date Time Temp Pulse Resp B/P (MAP) Pulse Ox O2 Delivery O2 Flow Rate FiO2 09/24/17 11:00 73 22 109/67 (81) 100 Ventilator 09/24/17 08:00 98.2 98.2 Lungs: Clear Cardiovascular: S1, S2 Abdomen: Soft Extremities: No Edema Skin: Warm Labs Laboratory Tests Test 09/23/17 05:50 09/23/17 09:00 09/24/17 05:30 09/24/17 07:45 White Blood Count 13.4 x10^3/uL (4.0-11.0) 13.6 x10^3/uL (4.0-11.0) Red Blood Count 3.72 x10^6/uL (3.50-5.40) 3.57 x10^6/uL (3.50-5.40) Hemoglobin 9.4 g/dL (12.0-15.5) 8.7 g/dL (12.0-15.5) Hematocrit 30.3 % (36.0-47.0) 29.3 % (36.0-47.0) Mean Corpuscular Volume 81 fL (79-100) 82 fL (79-100) Mean Corpuscular Hemoglobin 25 pg (25-35) 24 pg (25-35) Mean Corpuscular Hemoglobin Concent 31 g/dL (31-37) 30 g/dL (31-37) Red Cell Distribution Width 25.5 % (11.5-14.5) 25.8 % (11.5-14.5) Platelet Count 255 x10^3/uL (140-400) 247 x10^3/uL (140-400) Neutrophils (%) (Auto) 92 % (31-73) 94 % (31-73) Lymphocytes (%) (Auto) 4 % (24-48) 2 % (24-48) Monocytes (%) (Auto) 3 % (0-9) 4 % (0-9) Eosinophils (%) (Auto) 0 % (0-3) 0 % (0-3) Basophils (%) (Auto) 0 % (0-3) 0 % (0-3) Neutrophils # (Auto) 12.4 x10^3uL (1.8-7.7) 12.8 x10^3uL (1.8-7.7) Lymphocytes # (Auto) 0.6 x10^3/uL (1.0-4.8) 0.3 x10^3/uL (1.0-4.8) Monocytes # (Auto) 0.4 x10^3/uL (0.0-1.1) 0.5 x10^3/uL (0.0-1.1) Eosinophils # (Auto) 0.0 x10^3/uL (0.0-0.7) 0.0 x10^3/uL (0.0-0.7) Basophils # (Auto) 0.0 x10^3/uL (0.0-0.2) 0.0 x10^3/uL (0.0-0.2) Segmented Neutrophils % 89 % (35-66) Band Neutrophils % 2 % (0-9) Lymphocytes % 6 % (24-48) Monocytes % 3 % (0-10) Nucleated Red Blood Cells 1 Platelet Estimate Adequate (ADEQUATE) Anisocytosis Mod Sodium Level 149 mmol/L (136-145) 147 mmol/L (136-145) Potassium Level 3.5 mmol/L (3.5-5.1) 3.7 mmol/L (3.5-5.1) Chloride Level 113 mmol/L (98-107) 113 mmol/L (98-107) Carbon Dioxide Level 23 mmol/L (21-32) 26 mmol/L (21-32) Anion Gap 13 (6-14) 8 (6-14) Blood Urea Nitrogen 57 mg/dL (7-20) 55 mg/dL (7-20) Creatinine 1.6 mg/dL (0.6-1.0) 1.5 mg/dL (0.6-1.0) Estimated GFR (Cockcroft-Gault) 32.9 35.4 BUN/Creatinine Ratio 36 (6-20) 37 (6-20) Glucose Level 206 mg/dL (70-99) 230 mg/dL (70-99) Calcium Level 8.8 mg/dL (8.5-10.1) 8.5 mg/dL (8.5-10.1) Total Bilirubin 0.5 mg/dL (0.2-1.0) 0.5 mg/dL (0.2-1.0) Aspartate Amino Transf (AST/SGOT) 46 U/L (15-37) 31 U/L (15-37) Alanine Aminotransferase (ALT/SGPT) 111 U/L (14-59) 101 U/L (14-59) Alkaline Phosphatase 69 U/L (46-116) 62 U/L (46-116) Total Protein 5.5 g/dL (6.4-8.2) 5.2 g/dL (6.4-8.2) Albumin 2.5 g/dL (3.4-5.0) 2.4 g/dL (3.4-5.0) Albumin/Globulin Ratio 0.8 (1.0-1.7) 0.9 (1.0-1.7) O2 Saturation 89 % (92-99) 98 % (92-99) Arterial Blood pH 7.39 (7.35-7.45) 7.41 (7.35-7.45) Arterial Blood pCO2 at Patient Temp 34 mmHg (35-46) 36 mmHg (35-46) Arterial Blood pO2 at Patient Temp 61 mmHg (65-108) 108 mmHg (65-108) Arterial Blood HCO3 20 mmol/L (21-28) 22 mmol/L (21-28) Arterial Blood Base Excess -4 mmol/L (-3-3) -2 mmol/L (-3-3) FiO2 40 50 Laboratory Tests Test 09/24/17 05:30 09/24/17 07:45 White Blood Count 13.6 x10^3/uL (4.0-11.0) Red Blood Count 3.57 x10^6/uL (3.50-5.40) Hemoglobin 8.7 g/dL (12.0-15.5) Hematocrit 29.3 % (36.0-47.0) Mean Corpuscular Volume 82 fL (79-100) Mean Corpuscular Hemoglobin 24 pg (25-35) Mean Corpuscular Hemoglobin Concent 30 g/dL (31-37) Red Cell Distribution Width 25.8 % (11.5-14.5) Platelet Count 247 x10^3/uL (140-400) Neutrophils (%) (Auto) 94 % (31-73) Lymphocytes (%) (Auto) 2 % (24-48) Monocytes (%) (Auto) 4 % (0-9) Eosinophils (%) (Auto) 0 % (0-3) Basophils (%) (Auto) 0 % (0-3) Neutrophils # (Auto) 12.8 x10^3uL (1.8-7.7) Lymphocytes # (Auto) 0.3 x10^3/uL (1.0-4.8) Monocytes # (Auto) 0.5 x10^3/uL (0.0-1.1) Eosinophils # (Auto) 0.0 x10^3/uL (0.0-0.7) Basophils # (Auto) 0.0 x10^3/uL (0.0-0.2) Sodium Level 147 mmol/L (136-145) Potassium Level 3.7 mmol/L (3.5-5.1) Chloride Level 113 mmol/L (98-107) Carbon Dioxide Level 26 mmol/L (21-32) Anion Gap 8 (6-14) Blood Urea Nitrogen 55 mg/dL (7-20) Creatinine 1.5 mg/dL (0.6-1.0) Estimated GFR (Cockcroft-Gault) 35.4 BUN/Creatinine Ratio 37 (6-20) Glucose Level 230 mg/dL (70-99) Calcium Level 8.5 mg/dL (8.5-10.1) Total Bilirubin 0.5 mg/dL (0.2-1.0) Aspartate Amino Transf (AST/SGOT) 31 U/L (15-37) Alanine Aminotransferase (ALT/SGPT) 101 U/L (14-59) Alkaline Phosphatase 62 U/L (46-116) Total Protein 5.2 g/dL (6.4-8.2) Albumin 2.4 g/dL (3.4-5.0) Albumin/Globulin Ratio 0.9 (1.0-1.7) O2 Saturation 98 % (92-99) Arterial Blood pH 7.41 (7.35-7.45) Arterial Blood pCO2 at Patient Temp 36 mmHg (35-46) Arterial Blood pO2 at Patient Temp 108 mmHg (65-108) Arterial Blood HCO3 22 mmol/L (21-28) Arterial Blood Base Excess -2 mmol/L (-3-3) FiO2 50 Medications Active Scripts Medications Dose Route/Sig Max Daily Dose Days Date Category Gabapentin 300 Mg Capsule 300 Mg PO TID 09/18/17 Reported Cymbalta (Duloxetine Hcl) 60 Mg Capsule. 1 Cap PO BID 09/18/17 Reported Hydrochlorothiazide Tablet (Hydrochlorothiazide) 25 Mg Tablet 1 Tab PO DAILY 09/17/17 Reported Xanax (Alprazolam) 1 Mg Tablet 1 Tab PO TID PRN 09/17/17 Reported Comments CXR REVIEWED NO CHANGE Impression . 1. Acute hypoxic respiratory failure/ARDS 2. Anemia 3. COPD 4. Acute renal failure 5. Sepsis with hypotension 6. S/P Bronch so far BAL negative Plan . WILL CONTINUE SUPPORT DECREASE PEEP D/W RT 1. SEDATE 2. AC mode 3. ANTIBX PER ID Influenza screen neg. Micafungin added for budding yeast on BAL. 4. CT chest with diffuse parenchymal GG infiltrates 5. FOLLOW NEPHRO INPUT 6. Hematology following for workup of anemia. 7. TUBE FEED 8. ON STEROIDS 9. TX PRBC prn CCT 30 MIN RAKEL MCKENNA MD Sep 24, 2017 12:45
--- NOTE | 2017-09-24 13:11 | PDOC ---
PROGRESS NOTES Chief Complaint Chief Complaint Pneumonia, RML opacity, cough and dyspnea, and now bilateral opacity acute hypoxic respiratory failure consistent with ARDS, improved, down to 50% Fi02 possible COPD sepsis anemia, acute on chronic, w. sepsis tobaccoism, anxiety d/o, can awaken easily History of Present Illness History of Present Illness Pt seen and examined in the ICU On vent: AC/22/500/50% -10% PEEP OG feeding tube in place on propofol, versed, ativan for sedation hgb improved, on proph lovenox Vitals Vitals Vital Signs Date Time Temp Pulse Resp B/P (MAP) Pulse Ox O2 Delivery O2 Flow Rate FiO2 09/24/17 12:25 100 Ventilator 09/24/17 11:00 73 22 109/67 (81) 09/24/17 08:00 98.2 98.2 Physical Exam Physical Exam PERRLA General: mild distress, Other (sedated on vent) Heart: Normal S1, Normal S2 Lungs: Clear, Other (no wheezes or crackles ) Abdomen: Normal bowel sounds, Soft, No hepatosplenomegaly Extremities: No clubbing, No edema, Normal pulses Skin: No rashes, No breakdown, No significant lesion Labs LABS Laboratory Tests Test 09/24/17 05:30 09/24/17 07:45 White Blood Count 13.6 x10^3/uL (4.0-11.0) Red Blood Count 3.57 x10^6/uL (3.50-5.40) Hemoglobin 8.7 g/dL (12.0-15.5) Hematocrit 29.3 % (36.0-47.0) Mean Corpuscular Volume 82 fL (79-100) Mean Corpuscular Hemoglobin 24 pg (25-35) Mean Corpuscular Hemoglobin Concent 30 g/dL (31-37) Red Cell Distribution Width 25.8 % (11.5-14.5) Platelet Count 247 x10^3/uL (140-400) Neutrophils (%) (Auto) 94 % (31-73) Lymphocytes (%) (Auto) 2 % (24-48) Monocytes (%) (Auto) 4 % (0-9) Eosinophils (%) (Auto) 0 % (0-3) Basophils (%) (Auto) 0 % (0-3) Neutrophils # (Auto) 12.8 x10^3uL (1.8-7.7) Lymphocytes # (Auto) 0.3 x10^3/uL (1.0-4.8) Monocytes # (Auto) 0.5 x10^3/uL (0.0-1.1) Eosinophils # (Auto) 0.0 x10^3/uL (0.0-0.7) Basophils # (Auto) 0.0 x10^3/uL (0.0-0.2) Sodium Level 147 mmol/L (136-145) Potassium Level 3.7 mmol/L (3.5-5.1) Chloride Level 113 mmol/L (98-107) Carbon Dioxide Level 26 mmol/L (21-32) Anion Gap 8 (6-14) Blood Urea Nitrogen 55 mg/dL (7-20) Creatinine 1.5 mg/dL (0.6-1.0) Estimated GFR (Cockcroft-Gault) 35.4 BUN/Creatinine Ratio 37 (6-20) Glucose Level 230 mg/dL (70-99) Calcium Level 8.5 mg/dL (8.5-10.1) Total Bilirubin 0.5 mg/dL (0.2-1.0) Aspartate Amino Transf (AST/SGOT) 31 U/L (15-37) Alanine Aminotransferase (ALT/SGPT) 101 U/L (14-59) Alkaline Phosphatase 62 U/L (46-116) Total Protein 5.2 g/dL (6.4-8.2) Albumin 2.4 g/dL (3.4-5.0) Albumin/Globulin Ratio 0.9 (1.0-1.7) O2 Saturation 98 % (92-99) Arterial Blood pH 7.41 (7.35-7.45) Arterial Blood pCO2 at Patient Temp 36 mmHg (35-46) Arterial Blood pO2 at Patient Temp 108 mmHg (65-108) Arterial Blood HCO3 22 mmol/L (21-28) Arterial Blood Base Excess -2 mmol/L (-3-3) FiO2 50 Review of Systems Review of Systems Unreliable, on vent. Assessment and Plan Assessmemt and Plan Problems Medical Problems: (1) Dyspnea Status: Acute (2) Hypoalbuminemia Status: Acute (3) Metabolic acidosis Status: Acute (4) Pneumonia Status: Acute Assessment; pneumonia, RML opacity, cough and dyspnea, and now bilateral opacity acute hypoxic respiratory failure consistent with ARDS, improved, down to 50% Fi02 to maintain, PEEP 10 possible underlying COPD sepsis, severe sepsis, anemia, acute on chronic, w. sepsis tobaccoism, anxiety d/o, can awaken easily Plan; Continue ICU monitoring Continue ventilation and sedation Continue antibiotics Await subspecialty input Continue at home medications Problems: Comment Review of Relevant I have reviewed the following items tha (where applicable) has been applied. Labs Laboratory Tests Test 09/23/17 05:50 09/23/17 09:00 09/24/17 05:30 09/24/17 07:45 White Blood Count 13.4 x10^3/uL (4.0-11.0) 13.6 x10^3/uL (4.0-11.0) Red Blood Count 3.72 x10^6/uL (3.50-5.40) 3.57 x10^6/uL (3.50-5.40) Hemoglobin 9.4 g/dL (12.0-15.5) 8.7 g/dL (12.0-15.5) Hematocrit 30.3 % (36.0-47.0) 29.3 % (36.0-47.0) Mean Corpuscular Volume 81 fL (79-100) 82 fL (79-100) Mean Corpuscular Hemoglobin 25 pg (25-35) 24 pg (25-35) Mean Corpuscular Hemoglobin Concent 31 g/dL (31-37) 30 g/dL (31-37) Red Cell Distribution Width 25.5 % (11.5-14.5) 25.8 % (11.5-14.5) Platelet Count 255 x10^3/uL (140-400) 247 x10^3/uL (140-400) Neutrophils (%) (Auto) 92 % (31-73) 94 % (31-73) Lymphocytes (%) (Auto) 4 % (24-48) 2 % (24-48) Monocytes (%) (Auto) 3 % (0-9) 4 % (0-9) Eosinophils (%) (Auto) 0 % (0-3) 0 % (0-3) Basophils (%) (Auto) 0 % (0-3) 0 % (0-3) Neutrophils # (Auto) 12.4 x10^3uL (1.8-7.7) 12.8 x10^3uL (1.8-7.7) Lymphocytes # (Auto) 0.6 x10^3/uL (1.0-4.8) 0.3 x10^3/uL (1.0-4.8) Monocytes # (Auto) 0.4 x10^3/uL (0.0-1.1) 0.5 x10^3/uL (0.0-1.1) Eosinophils # (Auto) 0.0 x10^3/uL (0.0-0.7) 0.0 x10^3/uL (0.0-0.7) Basophils # (Auto) 0.0 x10^3/uL (0.0-0.2) 0.0 x10^3/uL (0.0-0.2) Segmented Neutrophils % 89 % (35-66) Band Neutrophils % 2 % (0-9) Lymphocytes % 6 % (24-48) Monocytes % 3 % (0-10) Nucleated Red Blood Cells 1 Platelet Estimate Adequate (ADEQUATE) Anisocytosis Mod Sodium Level 149 mmol/L (136-145) 147 mmol/L (136-145) Potassium Level 3.5 mmol/L (3.5-5.1) 3.7 mmol/L (3.5-5.1) Chloride Level 113 mmol/L (98-107) 113 mmol/L (98-107) Carbon Dioxide Level 23 mmol/L (21-32) 26 mmol/L (21-32) Anion Gap 13 (6-14) 8 (6-14) Blood Urea Nitrogen 57 mg/dL (7-20) 55 mg/dL (7-20) Creatinine 1.6 mg/dL (0.6-1.0) 1.5 mg/dL (0.6-1.0) Estimated GFR (Cockcroft-Gault) 32.9 35.4 BUN/Creatinine Ratio 36 (6-20) 37 (6-20) Glucose Level 206 mg/dL (70-99) 230 mg/dL (70-99) Calcium Level 8.8 mg/dL (8.5-10.1) 8.5 mg/dL (8.5-10.1) Total Bilirubin 0.5 mg/dL (0.2-1.0) 0.5 mg/dL (0.2-1.0) Aspartate Amino Transf (AST/SGOT) 46 U/L (15-37) 31 U/L (15-37) Alanine Aminotransferase (ALT/SGPT) 111 U/L (14-59) 101 U/L (14-59) Alkaline Phosphatase 69 U/L (46-116) 62 U/L (46-116) Total Protein 5.5 g/dL (6.4-8.2) 5.2 g/dL (6.4-8.2) Albumin 2.5 g/dL (3.4-5.0) 2.4 g/dL (3.4-5.0) Albumin/Globulin Ratio 0.8 (1.0-1.7) 0.9 (1.0-1.7) O2 Saturation 89 % (92-99) 98 % (92-99) Arterial Blood pH 7.39 (7.35-7.45) 7.41 (7.35-7.45) Arterial Blood pCO2 at Patient Temp 34 mmHg (35-46) 36 mmHg (35-46) Arterial Blood pO2 at Patient Temp 61 mmHg (65-108) 108 mmHg (65-108) Arterial Blood HCO3 20 mmol/L (21-28) 22 mmol/L (21-28) Arterial Blood Base Excess -4 mmol/L (-3-3) -2 mmol/L (-3-3) FiO2 40 50 Laboratory Tests Test 09/24/17 05:30 09/24/17 07:45 White Blood Count 13.6 x10^3/uL (4.0-11.0) Red Blood Count 3.57 x10^6/uL (3.50-5.40) Hemoglobin 8.7 g/dL (12.0-15.5) Hematocrit 29.3 % (36.0-47.0) Mean Corpuscular Volume 82 fL (79-100) Mean Corpuscular Hemoglobin 24 pg (25-35) Mean Corpuscular Hemoglobin Concent 30 g/dL (31-37) Red Cell Distribution Width 25.8 % (11.5-14.5) Platelet Count 247 x10^3/uL (140-400) Neutrophils (%) (Auto) 94 % (31-73) Lymphocytes (%) (Auto) 2 % (24-48) Monocytes (%) (Auto) 4 % (0-9) Eosinophils (%) (Auto) 0 % (0-3) Basophils (%) (Auto) 0 % (0-3) Neutrophils # (Auto) 12.8 x10^3uL (1.8-7.7) Lymphocytes # (Auto) 0.3 x10^3/uL (1.0-4.8) Monocytes # (Auto) 0.5 x10^3/uL (0.0-1.1) Eosinophils # (Auto) 0.0 x10^3/uL (0.0-0.7) Basophils # (Auto) 0.0 x10^3/uL (0.0-0.2) Sodium Level 147 mmol/L (136-145) Potassium Level 3.7 mmol/L (3.5-5.1) Chloride Level 113 mmol/L (98-107) Carbon Dioxide Level 26 mmol/L (21-32) Anion Gap 8 (6-14) Blood Urea Nitrogen 55 mg/dL (7-20) Creatinine 1.5 mg/dL (0.6-1.0) Estimated GFR (Cockcroft-Gault) 35.4 BUN/Creatinine Ratio 37 (6-20) Glucose Level 230 mg/dL (70-99) Calcium Level 8.5 mg/dL (8.5-10.1) Total Bilirubin 0.5 mg/dL (0.2-1.0) Aspartate Amino Transf (AST/SGOT) 31 U/L (15-37) Alanine Aminotransferase (ALT/SGPT) 101 U/L (14-59) Alkaline Phosphatase 62 U/L (46-116) Total Protein 5.2 g/dL (6.4-8.2) Albumin 2.4 g/dL (3.4-5.0) Albumin/Globulin Ratio 0.9 (1.0-1.7) O2 Saturation 98 % (92-99) Arterial Blood pH 7.41 (7.35-7.45) Arterial Blood pCO2 at Patient Temp 36 mmHg (35-46) Arterial Blood pO2 at Patient Temp 108 mmHg (65-108) Arterial Blood HCO3 22 mmol/L (21-28) Arterial Blood Base Excess -2 mmol/L (-3-3) FiO2 50 Microbiology 09/17/17 Blood Culture - Final, Complete NO GROWTH AFTER 5 DAYS 09/20/17 AFB Specimen Processing Tissue - Final, Resulted 09/20/17 Acid Fast Bacilli Culture, Resulted Pending 09/20/17 Gram Stain - Final, Resulted 09/20/17 Fungal Culture, Resulted Pending 09/20/17 Fungal Culture Result 1, Resulted Pending Medications Current Medications Sodium Chloride 1,000 ml @ 125 mls/hr 1X ONCE IV Last administered on 15:54; Start 09/17/17 at 15:15; Stop 09/17/17 at 23:14; Status DC Ondansetron HCl (Zofran) 4 mg PRN Q8HRS PRN IV NAUSEA/VOMITING; Start at 16:30; Stop 09/18/17 at 16:29; Status DC Ceftriaxone Sodium 50 ml @ 0 mls/hr 1X ONCE IV Last administered on 17:33; Start 09/17/17 at 16:45; Stop 09/17/17 at 16:46; Status DC Azithromycin 250 ml @ 250 mls/hr 1X ONCE IV Last administered on 09/17/17 22:38; Start 09/17/17 at 16:30; Stop 09/17/17 at 17:29; Status DC Albuterol/ Ipratropium (Duoneb) 3 ml 1X ONCE NEB Last administered on 17:00; Start 09/17/17 at 16:45; Stop 09/17/17 at 16:46; Status DC Potassium Chloride (Klor-Con) 40 meq 1X ONCE PO Last administered on 16:57; Start 09/17/17 at 16:45; Stop 09/17/17 at 16:46; Status DC Azithromycin (Zithromax) 250 mg DAILY PO Last administered on 09/18/17 10:25 ; Start 09/18/17 at 09:00; Stop 09/19/17 at 10:30; Status DC Ceftriaxone Sodium 1 gm/ Dextrose 50 ml @ 100 mls/hr Q24H IV ; Start 09/17/17 at 17:15; Status UNV Albuterol/ Ipratropium (Duoneb) 3 ml Q4HRS NEB Last administered on 09/24/17 12:23; Start 09/17/17 at 20:00 Ceftriaxone Sodium (Rocephin) 1 gm Q24H IVP Last administered on 09/18/17 17: 55; Start 09/18/17 at 16:00; Stop 09/19/17 at 10:30; Status DC Guaifenesin (Robitussin Dm) 10 ml PRN Q6HRS PRN PO COUGH; Start 09/17/17 at 17 :15 Sodium Chloride 1,000 ml @ 125 mls/hr 1X ONCE IV Last administered on 17:45; Start 09/17/17 at 17:15; Stop 09/17/17 at 22:12; Status DC Info (Do NOT chart on this placeholder) 1 each 1X ONCE MC ; Start 09/17/17 at 19:00; Stop 09/17/17 at 19:01; Status UNV Influenza Virus Vaccine Quadrival (Fluarix Quad [id number] Syringe) 0.5 ml ONCE ONCE VAX IM ; Start 09/17/17 at 21:00; Stop 09/17/17 at 21:01; Status DC Sodium Chloride 1,000 ml @ 130 mls/hr 1X ONCE IV Last administered on 22:31; Start 09/17/17 at 22:30; Stop 09/18/17 at 06:11; Status DC Sodium Bicarbonate 50 meq 1X ONCE IV Last administered on 09/17/17 22:31; Start 09/17/17 at 22:30; Stop 09/17/17 at 22:31; Status DC Alprazolam (Xanax) 1 mg PRN TID PRN PO ANXIETY Last administered on 09/19/17 02:19; Start 09/17/17 at 22:30 Furosemide (Lasix) 20 mg 1X ONCE IVP Last administered on 09/18/17 06:24; Start 09/18/17 at 06:30; Stop 09/18/17 at 06:31; Status DC Potassium Chloride (Klor-Con) 40 meq 1X ONCE PO Last administered on 10:25; Start 09/18/17 at 09:00; Stop 09/18/17 at 09:01; Status DC Iron Sucrose 500 mg/Sodium Chloride 275 ml @ 78.571 mls/ hr 1X ONCE IV Last administered on 09/18/17 10:24; Start 09/18/17 at 09:00; Stop 09/18/17 at 12 :29; Status DC Furosemide (Lasix) 20 mg 1X ONCE IVP Last administered on 09/18/17 10:30; Start 09/18/17 at 10:00; Stop 09/18/17 at 10:22; Status DC Pantoprazole Sodium (Protonix) 40 mg DAILYAC PO Last administered on 10:47; Start 09/18/17 at 11:00; Stop 09/19/17 at 13:41; Status DC Furosemide (Lasix) 20 mg 1X ONCE IVP Last administered on 09/18/17 10:47; Start 09/18/17 at 10:45; Stop 09/18/17 at 10:46; Status DC Potassium Chloride (Klor-Con) 40 meq 1X ONCE PO ; Start 09/18/17 at 11:45; Stop 09/18/17 at 11:46; Status DC Oxycodone/ Acetaminophen (Percocet 5/325) 1 tab PRN Q6HRS PRN PO PAIN Last administered on 09/18/17 13:23; Start 09/18/17 at 12:15 Lorazepam (Ativan) 1 mg PRN Q4HRS PRN IV ANXIETY / AGITATION Last administered on 09/18/17 12:25; Start 09/18/17 at 12:15; Stop 09/18/17 at 13:34; Status DC Fentanyl Citrate (Fentanyl 2ml Vial) 50 mcg PRN Q2HR PRN IV PAIN Last administered on 09/19/17 04:09; Start 09/18/17 at 12:15 Lorazepam (Ativan) 2 mg PRN Q4HRS PRN IV ANXIETY / AGITATION Last administered on 09/23/17 14:29; Start 09/18/17 at 13:30 Quetiapine Fumarate (SEROquel) 25 mg HS PO Last administered on 09/18/17 21: 03; Start 09/18/17 at 21:00; Stop 09/19/17 at 10:35; Status DC Haloperidol Lactate (Haldol) 5 mg PRN Q12HRS PRN IVP AGITATION; Start at 13:45 Lorazepam (Ativan) 1 mg PRN Q4HRS PRN IV ANXIETY / AGITATION; Start 09/19/17 at 10:15; Stop 09/19/17 at 10:18; Status DC Lorazepam (Ativan) 4 mg 1X ONCE IV ; Start 09/19/17 at 10:30; Stop 09/19/17 at 10:31; Status DC Vancomycin HCl (Vanco Per Pharmacy) 1 each PRN DAILY PRN MC SEE COMMENTS Last administered on 09/23/17 12:36; Start 09/19/17 at 10:30; Stop 09/24/17 at 08 :36; Status DC Piperacillin Sod/ Tazobactam Sod (Zosyn Per Pharmacy) 1 each PRN DAILY PRN MC SEE COMMENTS; Start 09/19/17 at 10:30; Stop 09/24/17 at 08:41; Status DC Vancomycin HCl 2 gm/Dextrose 500 ml @ 250 mls/hr 1X ONCE IV Last administered on 09/19/17 14:53; Start 09/19/17 at 11:00; Stop 09/19/17 at 12 :59; Status DC Piperacillin Sod/ Tazobactam Sod (Zosyn) 3.375 gm Q6HRS IVP Last administered on 09/24/17 05:31; Start 09/19/17 at 11:00 Budesonide (Pulmicort) 0.5 mg RTBID NEB Last administered on 09/24/17 07:47; Start 09/19/17 at 20:00 Budesonide (Pulmicort) 0.5 mg 1X ONCE NEB Last administered on 09/19/17 12: 50; Start 09/19/17 at 10:45; Stop 09/19/17 at 10:46; Status DC Pantoprazole Sodium (Protonix Vial) 40 mg DAILYAC IVP Last administered on 10:35; Start 09/19/17 at 11:30 Furosemide (Lasix) 40 mg DAILY IVP ; Start 09/19/17 at 11:00; Stop 09/20/17 at 13:20; Status DC Methylprednisolone Sodium Succinate (SOLU-Medrol 125MG VIAL) 125 mg 1X ONCE IV Last administered on 09/19/17 13:23; Start 09/19/17 at 10:45; Stop at 10:46; Status DC Prednisone (Prednisone) 40 mg DAILY PO ; Start 09/19/17 at 11:00; Stop at 09:02; Status DC Methylprednisolone Sodium Succinate (SOLU-Medrol 125MG VIAL) 125 mg Q8HRS IV Last administered on 09/23/17t 05:43; Start 09/19/17 at 14:00; Stop 09/23/17 at 10:40; Status DC Midazolam HCl 100 ml @ 0 mls/hr CONT PRN IV SEE I/O RECORD; Start 09/19/17 at 11:00; Stop 09/19/17 at 12:51; Status DC Midazolam HCl (Versed) 5 mg 1X ONCE IV ; Start 09/19/17 at 11:00; Stop at 11:01; Status DC Fentanyl Citrate (Fentanyl 2ml Vial) 50 mcg 1X ONCE IV ; Start 09/19/17 at 11: 00; Stop 09/19/17 at 11:01; Status DC Midazolam HCl 100 ml @ As Directed STK-MED ONCE IV ; Start 09/19/17 at 10:55; Stop 09/19/17 at 10:56; Status DC Midazolam HCl (Versed) 5 mg STK-MED ONCE .ROUTE ; Start 09/19/17 at 10:55; Stop 09/19/17 at 10:56; Status DC Propofol 100 ml @ As Directed STK-MED ONCE IV ; Start 09/19/17 at 10:59; Stop 09/19/17 at 11:00; Status DC Norepinephrine Bitartrate 250 ml @ As Directed STK-MED ONCE IV ; Start at 10:59; Stop 09/19/17 at 11:00; Status DC Furosemide (Lasix) 20 mg 1X ONCE IVP ; Start 09/19/17 at 11:15; Stop at 11:16; Status DC Vecuronium [place] (Norcuron Bolus) 10 mg STK-MED ONCE IV ; Start 09/19/17 at 11:21; Stop 09/19/17 at 11:22; Status DC Fentanyl Citrate 30 ml @ 0 mls/hr CONT PRN IV PROTOCOL Last administered on t 15:08; Start 09/19/17 at 11:30; Stop 09/23/17 at 15:24; Status DC Vecuronium [place] (Norcuron Bolus) 6 mg 1X ONCE IV Last administered on 09/19 11:42; Start 09/19/17 at 11:30; Stop 09/19/17 at 11:39; Status DC Propofol 10 ml @ 0 mls/hr 1X ONCE IV Last administered on 09/19/17 11:30; Start 09/19/17 at 11:30; Stop 09/19/17 at 11:39; Status DC Midazolam HCl 100 ml @ 0 mls/hr CONT PRN IV SEE I/O RECORD Last administered on 09/24/17 08:27; Start 09/19/17 at 11:30 Norepinephrine Bitartrate 250 ml @ 0 mls/hr CONT PRN IV SEE I/O RECORD Last administered on 09/24/17 05:18; Start 09/19/17 at 11:30 Succinylcholine Chloride (Anectine) 100 mg 1X ONCE IV Last administered on 11:42; Start 09/19/17 at 11:30; Stop 09/19/17 at 11:39; Status DC Sodium Bicarbonate 50 meq 1X ONCE IV Last administered on 09/19/17 13:23; Start 09/19/17 at 12:45; Stop 09/19/17 at 12:46; Status DC Sodium Bicarbonate 50 meq 1X ONCE IV Last administered on 09/19/17 13:23; Start 09/19/17 at 12:45; Stop 09/19/17 at 12:46; Status DC Lidocaine/Sodium Bicarbonate (Buffered Lidocaine 1%) 20 ml STK-MED ONCE IJ ; Start 09/19/17 at 13:34; Stop 09/19/17 at 13:35; Status DC Vecuronium [place] (Norcuron Bolus) 10 mg 1X ONCE IV Last administered on 15:05; Start 09/19/17 at 14:00; Stop 09/19/17 at 14:02; Status DC Lidocaine/Sodium Bicarbonate (Buffered Lidocaine 1%) 3 ml 1X ONCE IJ ; Start 09/19/17 at 14:45; Stop 09/19/17 at 14:46; Status DC Vancomycin HCl 1.25 gm/Dextrose 250 ml @ 166.667 mls/hr Q24H IV Last administered on 09/23/17 17:19; Start 09/20/17 at 15:00; Stop 09/24/17 at 08 :35; Status DC Vancomycin HCl 1 each 1X ONCE MC Last administered on 09/21/17 14:30; Start 09/21/17 at 14:30; Stop 09/21/17 at 14:31; Status DC Azithromycin 500 mg/Sodium Chloride 250 ml @ 250 mls/hr Q24H IV Last administered on 09/23/17 17:19; Start 09/19/17 at 16:30; Stop 09/24/17 at 08 :35; Status DC Norepinephrine Bitartrate (Levophed 8mg/ 250ml Premix Drip) 8 mg STK-MED ONCE IV ; Start 09/19/17 at 11:00; Stop 09/20/17 at 08:44; Status DC Midazolam HCl (Versed) 5 mg STK-MED ONCE .ROUTE ; Start 09/19/17 at 11:00; Stop 09/20/17 at 08:44; Status DC Amino Acids/ Glycerin/ Electrolytes 1,000 ml @ 80 mls/hr [id number] IV Last administered on 09/21/17 01:21; Start 09/20/17 at 10:00; Stop 09/22/17 at 07 :02; Status DC Info 1 each PRN DAILY PRN MC SEE COMMENTS; Start 09/20/17 at 10:00; Stop at 12:14; Status DC Furosemide (Lasix) 20 mg 1X ONCE IVP Last administered on 09/20/17 10:21; Start 09/20/17 at 10:15; Stop 09/20/17 at 10:18; Status DC Info 1 each PRN DAILY PRN MC SEE COMMENTS; Start 09/20/17 at 11:00; Status UNV Vecuronium [place] (Norcuron Bolus) 10 mg 1X ONCE IV Last administered on 12:03; Start 09/20/17 at 11:15; Stop 09/20/17 at 11:24; Status DC Atropine Sulfate 0.5 mg STK-MED ONCE .ROUTE ; Start 09/20/17 at 11:47; Stop at 11:48; Status DC Epinephrine HCl (EPINEPHrine SYRINGE) 1 mg STK-MED ONCE .ROUTE ; Start at 11:47; Stop 09/20/17 at 11:48; Status DC Atropine Sulfate 0.5 mg STK-MED ONCE .ROUTE ; Start 09/20/17 at 12:00; Stop at 09:11; Status DC Epinephrine HCl (EPINEPHrine SYRINGE) 1 mg STK-MED ONCE .ROUTE ; Start at 12:00; Stop 09/21/17 at 09:11; Status DC Furosemide (Lasix) 20 mg DAILY IVP ; Start 09/21/17 at 11:15; Stop 09/21/17 at 11:20; Status DC Lorazepam (Ativan) 1 mg PRN Q1HR PRN IV ANXIETY / AGITATION Last administered on 09/23/17 05:49; Start 09/21/17 at 11:15 Albumin Human 250 ml @ 62.5 mls/hr 1X ONCE IV Last administered on 11:57; Start 09/21/17 at 11:30; Stop 09/21/17 at 15:29; Status DC Albumin Human 250 ml @ 62.5 mls/hr 1X ONCE IV Last administered on 14:29; Start 09/21/17 at 11:30; Stop 09/21/17 at 15:29; Status DC Micafungin Sodium 100 mg/Dextrose 100 ml @ 100 mls/hr Q24H IV Last administered on 09/23/17 13:17; Start 09/21/17 at 12:00; Stop 09/24/17 at 08 :35; Status DC Vecuronium [place] (Norcuron Bolus) 4 mg PRN Q4HRS PRN IV AGITATION; Start at 15:00 Dexmedetomidine HCl 200 mcg/ Sodium Chloride 50 ml @ 0 mls/hr CONT PRN IV PER PROTOCOL Last administered on 09/21/17 15:54; Start 09/21/17 at 15:30 Sodium Chloride 500 ml @ 500 mls/hr 1X PRN PRN IV SEE COMMENTS; Start at 15:30 Atropine Sulfate 0.5 mg PRN Q5MIN PRN IV SEE COMMENTS; Start 09/21/17 at 15:30 Propofol 100 ml @ 0 mls/hr CONT PRN IV PER PROTOCOL Last administered on 22:01; Start 09/21/17 at 16:45 Furosemide (Lasix) 20 mg 1X ONCE IVP Last administered on 09/22/17 09:41; Start 09/22/17 at 10:15; Stop 09/22/17 at 10:16; Status DC Chlorhexidine Gluconate (Peridex) 15 ml BID MM Last administered on 09/24/17 10:36; Start 09/22/17 at 21:00 Furosemide (Lasix) 20 mg 1X ONCE IVP Last administered on 09/22/17 17:55; Start 09/22/17 at 18:00; Stop 09/22/17 at 18:01; Status DC Furosemide (Lasix) 20 mg DAILY IVP Last administered on 09/23/17 13:16; Start 09/23/17 at 11:30; Stop 09/24/17 at 08:40; Status DC Methylprednisolone Sodium Succinate (SOLU-Medrol 125MG VIAL) 80 mg Q8HRS IV Last administered on 09/24/17 05:31; Start 09/23/17 at 14:00 Fentanyl Citrate 55 ml @ 0 mls/hr CONT PRN PRN IV PER PROTOCOL Last administered on 09/23/17 21:03; Start 09/23/17 at 12:15 Dextrose 1,000 ml @ 25 mls/hr Q24H IV Last administered on 09/23/17 13:16; Start 09/23/17 at 11:45 Enoxaparin Sodium (Lovenox Per Pharmacy Prophylaxis Dosing) 1 each PRN DAILY PRN MC SEE COMMENTS; Start 09/23/17 at 16:30; Stop 09/24/17 at 08:41; Status DC Enoxaparin Sodium (Lovenox 40mg Syringe) 40 mg Q24H SQ ; Start 09/23/17 at 17: 00 Bisacodyl (Dulcolax Tab) 5 mg PRN DAILY PRN PO CONSTIPATION; Start 09/24/17 at 09:30 Active Scripts Active Reported Gabapentin 300 Mg Capsule 300 Mg PO TID Cymbalta (Duloxetine Hcl) 60 Mg Capsule. 1 Cap PO BID Hydrochlorothiazide Tablet (Hydrochlorothiazide) 25 Mg Tablet 1 Tab PO DAILY Xanax (Alprazolam) 1 Mg Tablet 1 Tab PO TID PRN Vitals/I & O Vital Sign - Last 24 Hours 09/23/17 09/23/17 09/23/17 11/19/17 13:11 13:15 13:30 13:45 Pulse 76 74 76 Resp 22 22 29 B/P (MAP) 125/80 (95) 114/75 (88) 111/72 (85) Pulse Ox 98 98 99 99 O2 Delivery Ventilator Ventilator Ventilator Ventilator 09/23/17 09/23/17 09/23/17 09/23/17 14:00 14:15 14:30 14:45 Pulse 76 76 104 76 Resp 36 22 38 22 B/P (MAP) 113/71 (85) 114/63 (80) 141/89 (106) 107/68 (81) Pulse Ox 99 100 99 98 O2 Delivery Ventilator Ventilator Ventilator Ventilator 09/23/17 09/23/17 09/23/17 09/23/17 15:00 15:08 15:15 15:30 Pulse 66 64 64 Resp 22 22 22 22 B/P (MAP) 98/58 (71) 93/60 (71) 90/59 (69) Pulse Ox 98 99 99 99 O2 Delivery Ventilator Ventilator Ventilator Ventilator 09/23/17 09/23/17 09/23/17 09/23/17 15:45 16:00 16:00 16:10 Temp 97.5 97.5 Pulse 64 62 Resp 22 B/P (MAP) 93/55 (68) 87/57 (67) Pulse Ox 99 99 99 O2 Delivery Ventilator Ventilator Mechanical Ventilator Ventilator 09/23/17 09/23/17 09/23/17 09/23/17 16:15 16:30 16:45 17:00 Pulse 58 56 80 80 Resp 22 22 22 B/P (MAP) 91/59 (70) 84/55 (65) 125/84 (98) 129/83 (98) Pulse Ox 100 100 100 100 O2 Delivery Ventilator Ventilator Ventilator Ventilator 09/23/17 09/23/17 09/23/17 09/23/17 17:15 17:30 17:45 18:00 Pulse 80 78 74 74 Resp 22 22 22 22 B/P (MAP) 128/84 (99) 115/75 (88) 107/71 (83) 106/69 (81) Pulse Ox 99 99 100 100 O2 Delivery Ventilator Ventilator Ventilator Ventilator 09/23/17 09/23/17 09/23/17 09/23/17 18:24 19:00 19:41 20:00 Temp 97.8 97.8 Pulse 74 72 Resp 22 22 B/P (MAP) 108/74 (85) 108/74 (85) Pulse Ox 100 100 99 O2 Delivery Ventilator Ventilator Mechanical Ventilator Ventilator 09/23/17 09/23/17 09/23/17 09/23/17 20:06 20:07 21:00 21:03 Pulse 71 Resp 22 12 B/P (MAP) 104/75 (85) Pulse Ox 100 100 99 99 O2 Delivery Ventilator Ventilator Ventilator Ventilator 09/23/17 09/23/17 09/23/17 09/23/17 21:33 22:00 23:00 23:04 Pulse 68 65 Resp 22 22 22 B/P (MAP) 104/72 (83) 101/64 (76) Pulse Ox 100 100 99 100 O2 Delivery Ventilator Ventilator Ventilator Ventilator 09/24/17 09/24/17 09/24/17 09/24/17 00:00 00:00 01:00 01:29 Temp 97.5 97.5 Pulse 69 65 Resp 22 22 B/P (MAP) 107/75 (86) 99/66 (77) Pulse Ox 100 100 100 O2 Delivery Ventilator Mechanical Ventilator Ventilator Ventilator 09/24/17 09/24/17 09/24/17 09/24/17 02:00 03:00 03:09 04:00 Temp 98.4 98.4 Pulse 65 64 64 Resp 22 22 22 B/P (MAP) 97/62 (74) 95/70 (78) 97/64 (75) Pulse Ox 100 99 100 99 O2 Delivery Ventilator Ventilator Ventilator Ventilator 09/24/17 09/24/17 09/24/17 09/24/17 04:00 05:00 05:15 06:00 Pulse 67 62 Resp 22 22 B/P (MAP) 97/64 (75) 93/63 (73) Pulse Ox 100 100 99 O2 Delivery Mechanical Ventilator Ventilator Ventilator Ventilator 09/24/17 09/24/17 09/24/17 09/24/17 07:00 07:30 07:47 08:00 Temp 98.2 98.2 Pulse 70 68 72 Resp 22 22 22 B/P (MAP) 97/67 (77) 102/68 (79) 104/70 (81) Pulse Ox 99 99 99 99 O2 Delivery Ventilator Ventilator Ventilator Ventilator 09/24/17 09/24/17 09/24/17/20/17 08:00 08:30 09:00 09:45 Pulse 72 64 Resp 22 22 B/P (MAP) 102/69 (80) 91/72 (78) Pulse Ox 100 100 100 O2 Delivery Mechanical Ventilator Ventilator Ventilator Ventilator 09/24/17 09/24/17 09/24/17 10:00 11:00 12:25 Pulse 63 73 Resp 22 22 B/P (MAP) 125/78 (94) 109/67 (81) Pulse Ox 99 100 100 O2 Delivery Ventilator Ventilator Ventilator Intake and Output 09/23/17 09/23/17 09/24/17 15:00 23:00 07:00 Intake Total 330 ml 2178.5 ml 1292 ml Output Total 600 ml 900 ml 450 ml Balance -270 ml 1278.5 ml 842 ml DENILSON KRISHNAMURTHY III DO Sep 24, 2017 13:11
[2017-09-24] MEDS: PROPOFOL 100 ML IV PRN ×2 (14:27→21:04)
[2017-09-24] MEDS: ENOXAPARIN 40 MG/0.4 ML SYRINGE. SQ SCH (17:00)
[2017-09-24 17:12] LABS: PARVO IGG 0.8 index (0.0-0.8); PARVO IGM 0.2 index (0.0-0.8)
--- NOTE | 2017-09-24 17:13 | PDOC ---
PROGRESS NOTES Subjective Subjective HPI - Iron deficiency anemia. ROS - on vent Objective Objective Vital Signs Date Time Temp Pulse Resp B/P (MAP) Pulse Ox O2 Delivery O2 Flow Rate FiO2 09/24/17 15:38 100 Ventilator 09/24/17 15:00 73 22 100/63 (75) 09/24/17 14:00 60.0 09/24/17 12:00 98.4 98.4 Intake and Output 09/24/17 07:00 Intake Total 3800.5 ml Output Total 1950 ml Balance 1850.5 ml IV Total 1964.5 ml Tube Feeding 1535 ml Other 301 ml Output Urine Total 1950 ml Gastric Drainage Total 0 ml Physical Exam Heart: Normal S1, Normal S2 General: No acute distress Lungs: Clear to auscultation Assessment Assessment Problems Medical Problems: (1) Dyspnea Status: Acute (2) Hypoalbuminemia Status: Acute (3) Metabolic acidosis Status: Acute (4) Pneumonia Status: Acute IMPRESSION AND PLAN: 1. Iron deficiency anemia. There is no evidence of blood loss. She received Venofer 500 mg intravenous on 09/18/2017. I will continue to monitor hemoglobin and transfuse as needed. Hemoglobin improved to 7.7 after transfusion. Then worse at 6.6 on 09/19/17. s/p 1 unit 09/19/17. Hb 7.9 on 09/20/17 Improved to 8.7 2. Leukocytosis, reactive from underlying pneumonia. Management per Pulmonary Medicine. WBC 13.6 3. Pneumonia/dyspnea - I appreciate consultation by Dr. Adan Thurman. Intubated 09/19/17. Comment Review of Relevant I have reviewed the following items tha (where applicable) has been applied. Labs Laboratory Tests Test 09/23/17 05:50 09/23/17 09:00 09/24/17 05:30 09/24/17 07:45 White Blood Count 13.4 x10^3/uL (4.0-11.0) 13.6 x10^3/uL (4.0-11.0) Red Blood Count 3.72 x10^6/uL (3.50-5.40) 3.57 x10^6/uL (3.50-5.40) Hemoglobin 9.4 g/dL (12.0-15.5) 8.7 g/dL (12.0-15.5) Hematocrit 30.3 % (36.0-47.0) 29.3 % (36.0-47.0) Mean Corpuscular Volume 81 fL (79-100) 82 fL (79-100) Mean Corpuscular Hemoglobin 25 pg (25-35) 24 pg (25-35) Mean Corpuscular Hemoglobin Concent 31 g/dL (31-37) 30 g/dL (31-37) Red Cell Distribution Width 25.5 % (11.5-14.5) 25.8 % (11.5-14.5) Platelet Count 255 x10^3/uL (140-400) 247 x10^3/uL (140-400) Neutrophils (%) (Auto) 92 % (31-73) 94 % (31-73) Lymphocytes (%) (Auto) 4 % (24-48) 2 % (24-48) Monocytes (%) (Auto) 3 % (0-9) 4 % (0-9) Eosinophils (%) (Auto) 0 % (0-3) 0 % (0-3) Basophils (%) (Auto) 0 % (0-3) 0 % (0-3) Neutrophils # (Auto) 12.4 x10^3uL (1.8-7.7) 12.8 x10^3uL (1.8-7.7) Lymphocytes # (Auto) 0.6 x10^3/uL (1.0-4.8) 0.3 x10^3/uL (1.0-4.8) Monocytes # (Auto) 0.4 x10^3/uL (0.0-1.1) 0.5 x10^3/uL (0.0-1.1) Eosinophils # (Auto) 0.0 x10^3/uL (0.0-0.7) 0.0 x10^3/uL (0.0-0.7) Basophils # (Auto) 0.0 x10^3/uL (0.0-0.2) 0.0 x10^3/uL (0.0-0.2) Segmented Neutrophils % 89 % (35-66) Band Neutrophils % 2 % (0-9) Lymphocytes % 6 % (24-48) Monocytes % 3 % (0-10) Nucleated Red Blood Cells 1 Platelet Estimate Adequate (ADEQUATE) Anisocytosis Mod Sodium Level 149 mmol/L (136-145) 147 mmol/L (136-145) Potassium Level 3.5 mmol/L (3.5-5.1) 3.7 mmol/L (3.5-5.1) Chloride Level 113 mmol/L (98-107) 113 mmol/L (98-107) Carbon Dioxide Level 23 mmol/L (21-32) 26 mmol/L (21-32) Anion Gap 13 (6-14) 8 (6-14) Blood Urea Nitrogen 57 mg/dL (7-20) 55 mg/dL (7-20) Creatinine 1.6 mg/dL (0.6-1.0) 1.5 mg/dL (0.6-1.0) Estimated GFR (Cockcroft-Gault) 32.9 35.4 BUN/Creatinine Ratio 36 (6-20) 37 (6-20) Glucose Level 206 mg/dL (70-99) 230 mg/dL (70-99) Calcium Level 8.8 mg/dL (8.5-10.1) 8.5 mg/dL (8.5-10.1) Total Bilirubin 0.5 mg/dL (0.2-1.0) 0.5 mg/dL (0.2-1.0) Aspartate Amino Transf (AST/SGOT) 46 U/L (15-37) 31 U/L (15-37) Alanine Aminotransferase (ALT/SGPT) 111 U/L (14-59) 101 U/L (14-59) Alkaline Phosphatase 69 U/L (46-116) 62 U/L (46-116) Total Protein 5.5 g/dL (6.4-8.2) 5.2 g/dL (6.4-8.2) Albumin 2.5 g/dL (3.4-5.0) 2.4 g/dL (3.4-5.0) Albumin/Globulin Ratio 0.8 (1.0-1.7) 0.9 (1.0-1.7) O2 Saturation 89 % (92-99) 98 % (92-99) Arterial Blood pH 7.39 (7.35-7.45) 7.41 (7.35-7.45) Arterial Blood pCO2 at Patient Temp 34 mmHg (35-46) 36 mmHg (35-46) Arterial Blood pO2 at Patient Temp 61 mmHg (65-108) 108 mmHg (65-108) Arterial Blood HCO3 20 mmol/L (21-28) 22 mmol/L (21-28) Arterial Blood Base Excess -4 mmol/L (-3-3) -2 mmol/L (-3-3) FiO2 40 50 Laboratory Tests Test 09/24/17 05:30 09/24/17 07:45 White Blood Count 13.6 x10^3/uL (4.0-11.0) Red Blood Count 3.57 x10^6/uL (3.50-5.40) Hemoglobin 8.7 g/dL (12.0-15.5) Hematocrit 29.3 % (36.0-47.0) Mean Corpuscular Volume 82 fL (79-100) Mean Corpuscular Hemoglobin 24 pg (25-35) Mean Corpuscular Hemoglobin Concent 30 g/dL (31-37) Red Cell Distribution Width 25.8 % (11.5-14.5) Platelet Count 247 x10^3/uL (140-400) Neutrophils (%) (Auto) 94 % (31-73) Lymphocytes (%) (Auto) 2 % (24-48) Monocytes (%) (Auto) 4 % (0-9) Eosinophils (%) (Auto) 0 % (0-3) Basophils (%) (Auto) 0 % (0-3) Neutrophils # (Auto) 12.8 x10^3uL (1.8-7.7) Lymphocytes # (Auto) 0.3 x10^3/uL (1.0-4.8) Monocytes # (Auto) 0.5 x10^3/uL (0.0-1.1) Eosinophils # (Auto) 0.0 x10^3/uL (0.0-0.7) Basophils # (Auto) 0.0 x10^3/uL (0.0-0.2) Sodium Level 147 mmol/L (136-145) Potassium Level 3.7 mmol/L (3.5-5.1) Chloride Level 113 mmol/L (98-107) Carbon Dioxide Level 26 mmol/L (21-32) Anion Gap 8 (6-14) Blood Urea Nitrogen 55 mg/dL (7-20) Creatinine 1.5 mg/dL (0.6-1.0) Estimated GFR (Cockcroft-Gault) 35.4 BUN/Creatinine Ratio 37 (6-20) Glucose Level 230 mg/dL (70-99) Calcium Level 8.5 mg/dL (8.5-10.1) Total Bilirubin 0.5 mg/dL (0.2-1.0) Aspartate Amino Transf (AST/SGOT) 31 U/L (15-37) Alanine Aminotransferase (ALT/SGPT) 101 U/L (14-59) Alkaline Phosphatase 62 U/L (46-116) Total Protein 5.2 g/dL (6.4-8.2) Albumin 2.4 g/dL (3.4-5.0) Albumin/Globulin Ratio 0.9 (1.0-1.7) O2 Saturation 98 % (92-99) Arterial Blood pH 7.41 (7.35-7.45) Arterial Blood pCO2 at Patient Temp 36 mmHg (35-46) Arterial Blood pO2 at Patient Temp 108 mmHg (65-108) Arterial Blood HCO3 22 mmol/L (21-28) Arterial Blood Base Excess -2 mmol/L (-3-3) FiO2 50 Microbiology 09/17/17 Blood Culture - Final, Complete NO GROWTH AFTER 5 DAYS 09/20/17 AFB Specimen Processing Tissue - Final, Resulted 09/20/17 Acid Fast Bacilli Culture, Resulted Pending 09/20/17 Gram Stain - Final, Resulted 09/20/17 Fungal Culture, Resulted Pending 09/20/17 Fungal Culture Result 1, Resulted Pending Medications Current Medications Sodium Chloride 1,000 ml @ 125 mls/hr 1X ONCE IV Last administered on t 15:54; Start 09/17/17 at 15:15; Stop 09/17/17 at 23:14; Status DC Ondansetron HCl (Zofran) 4 mg PRN Q8HRS PRN IV NAUSEA/VOMITING; Start at 16:30; Stop 09/18/17 at 16:29; Status DC Ceftriaxone Sodium 50 ml @ 0 mls/hr 1X ONCE IV Last administered on t 17:33; Start 09/17/17 at 16:45; Stop 09/17/17 at 16:46; Status DC Azithromycin 250 ml @ 250 mls/hr 1X ONCE IV Last administered on 09/17/17 22:38; Start 09/17/17 at 16:30; Stop 09/17/17 at 17:29; Status DC Albuterol/ Ipratropium (Duoneb) 3 ml 1X ONCE NEB Last administered on 17:00; Start 09/17/17 at 16:45; Stop 09/17/17 at 16:46; Status DC Potassium Chloride (Klor-Con) 40 meq 1X ONCE PO Last administered on 16:57; Start 09/17/17 at 16:45; Stop 09/17/17 at 16:46; Status DC Azithromycin (Zithromax) 250 mg DAILY PO Last administered on 09/18/17 10:25 ; Start 09/18/17 at 09:00; Stop 09/19/17 at 10:30; Status DC Ceftriaxone Sodium 1 gm/ Dextrose 50 ml @ 100 mls/hr Q24H IV ; Start 09/17/17 at 17:15; Status UNV Albuterol/ Ipratropium (Duoneb) 3 ml Q4HRS NEB Last administered on 09/24/17 15:37; Start 09/17/17 at 20:00 Ceftriaxone Sodium (Rocephin) 1 gm Q24H IVP Last administered on 09/18/17 17: 55; Start 09/18/17 at 16:00; Stop 09/19/17 at 10:30; Status DC Guaifenesin (Robitussin Dm) 10 ml PRN Q6HRS PRN PO COUGH; Start 09/17/17 at 17 :15 Sodium Chloride 1,000 ml @ 125 mls/hr 1X ONCE IV Last administered on 17:45; Start 09/17/17 at 17:15; Stop 09/17/17 at 22:12; Status DC Info (Do NOT chart on this placeholder) 1 each 1X ONCE MC ; Start 09/17/17 at 19:00; Stop 09/17/17 at 19:01; Status UNV Influenza Virus Vaccine Quadrival (Fluarix Quad [id number] Syringe) 0.5 ml ONCE ONCE VAX IM ; Start 09/17/17 at 21:00; Stop 09/17/17 at 21:01; Status DC Sodium Chloride 1,000 ml @ 130 mls/hr 1X ONCE IV Last administered on 22:31; Start 09/17/17 at 22:30; Stop 09/18/17 at 06:11; Status DC Sodium Bicarbonate 50 meq 1X ONCE IV Last administered on 09/17/17 22:31; Start 09/17/17 at 22:30; Stop 09/17/17 at 22:31; Status DC Alprazolam (Xanax) 1 mg PRN TID PRN PO ANXIETY Last administered on 09/19/17 02:19; Start 09/17/17 at 22:30 Furosemide (Lasix) 20 mg 1X ONCE IVP Last administered on 09/18/17 06:24; Start 09/18/17 at 06:30; Stop 09/18/17 at 06:31; Status DC Potassium Chloride (Klor-Con) 40 meq 1X ONCE PO Last administered on 10:25; Start 09/18/17 at 09:00; Stop 09/18/17 at 09:01; Status DC Iron Sucrose 500 mg/Sodium Chloride 275 ml @ 78.571 mls/ hr 1X ONCE IV Last administered on 09/18/17 10:24; Start 09/18/17 at 09:00; Stop 09/18/17 at 12 :29; Status DC Furosemide (Lasix) 20 mg 1X ONCE IVP Last administered on 09/18/17 10:30; Start 09/18/17 at 10:00; Stop 09/18/17 at 10:22; Status DC Pantoprazole Sodium (Protonix) 40 mg DAILYAC PO Last administered on 10:47; Start 09/18/17 at 11:00; Stop 09/19/17 at 13:41; Status DC Furosemide (Lasix) 20 mg 1X ONCE IVP Last administered on 09/18/17 10:47; Start 09/18/17 at 10:45; Stop 09/18/17 at 10:46; Status DC Potassium Chloride (Klor-Con) 40 meq 1X ONCE PO ; Start 09/18/17 at 11:45; Stop 09/18/17 at 11:46; Status DC Oxycodone/ Acetaminophen (Percocet 5/325) 1 tab PRN Q6HRS PRN PO PAIN Last administered on 09/18/17 13:23; Start 09/18/17 at 12:15 Lorazepam (Ativan) 1 mg PRN Q4HRS PRN IV ANXIETY / AGITATION Last administered on 09/18/17 12:25; Start 09/18/17 at 12:15; Stop 09/18/17 at 13:34; Status DC Fentanyl Citrate (Fentanyl 2ml Vial) 50 mcg PRN Q2HR PRN IV PAIN Last administered on 09/19/17 04:09; Start 09/18/17 at 12:15 Lorazepam (Ativan) 2 mg PRN Q4HRS PRN IV ANXIETY / AGITATION Last administered on 09/23/17 14:29; Start 09/18/17 at 13:30 Quetiapine Fumarate (SEROquel) 25 mg HS PO Last administered on 09/18/17 21: 03; Start 09/18/17 at 21:00; Stop 09/19/17 at 10:35; Status DC Haloperidol Lactate (Haldol) 5 mg PRN Q12HRS PRN IVP AGITATION; Start at 13:45 Lorazepam (Ativan) 1 mg PRN Q4HRS PRN IV ANXIETY / AGITATION; Start 09/19/17 at 10:15; Stop 09/19/17 at 10:18; Status DC Lorazepam (Ativan) 4 mg 1X ONCE IV ; Start 09/19/17 at 10:30; Stop 09/19/17 at 10:31; Status DC Vancomycin HCl (Vanco Per Pharmacy) 1 each PRN DAILY PRN MC SEE COMMENTS Last administered on 09/23/17 12:36; Start 09/19/17 at 10:30; Stop 09/24/17 at 08 :36; Status DC Piperacillin Sod/ Tazobactam Sod (Zosyn Per Pharmacy) 1 each PRN DAILY PRN MC SEE COMMENTS; Start 09/19/17 at 10:30; Stop 09/24/17 at 08:41; Status DC Vancomycin HCl 2 gm/Dextrose 500 ml @ 250 mls/hr 1X ONCE IV Last administered on 09/19/17 14:53; Start 09/19/17 at 11:00; Stop 09/19/17 at 12 :59; Status DC Piperacillin Sod/ Tazobactam Sod (Zosyn) 3.375 gm Q6HRS IVP Last administered on 09/24/17 14:17; Start 09/19/17 at 11:00 Budesonide (Pulmicort) 0.5 mg RTBID NEB Last administered on 09/24/17 07:47; Start 09/19/17 at 20:00 Budesonide (Pulmicort) 0.5 mg 1X ONCE NEB Last administered on 09/19/17 12: 50; Start 09/19/17 at 10:45; Stop 09/19/17 at 10:46; Status DC Pantoprazole Sodium (Protonix Vial) 40 mg DAILYAC IVP Last administered on 10:35; Start 09/19/17 at 11:30 Furosemide (Lasix) 40 mg DAILY IVP ; Start 09/19/17 at 11:00; Stop 09/20/17 at 13:20; Status DC Methylprednisolone Sodium Succinate (SOLU-Medrol 125MG VIAL) 125 mg 1X ONCE IV Last administered on 09/19/17 13:23; Start 09/19/17 at 10:45; Stop at 10:46; Status DC Prednisone (Prednisone) 40 mg DAILY PO ; Start 09/19/17 at 11:00; Stop at 09:02; Status DC Methylprednisolone Sodium Succinate (SOLU-Medrol 125MG VIAL) 125 mg Q8HRS IV Last administered on 09/23/17 05:43; Start 09/19/17 at 14:00; Stop 09/23/17 at 10:40; Status DC Midazolam HCl 100 ml @ 0 mls/hr CONT PRN IV SEE I/O RECORD; Start 09/19/17 at 11:00; Stop 09/19/17 at 12:51; Status DC Midazolam HCl (Versed) 5 mg 1X ONCE IV ; Start 09/19/17 at 11:00; Stop at 11:01; Status DC Fentanyl Citrate (Fentanyl 2ml Vial) 50 mcg 1X ONCE IV ; Start 09/19/17 at 11: 00; Stop 09/19/17 at 11:01; Status DC Midazolam HCl 100 ml @ As Directed STK-MED ONCE IV ; Start 09/19/17 at 10:55; Stop 09/19/17 at 10:56; Status DC Midazolam HCl (Versed) 5 mg STK-MED ONCE .ROUTE ; Start 09/19/17 at 10:55; Stop 09/19/17 at 10:56; Status DC Propofol 100 ml @ As Directed STK-MED ONCE IV ; Start 09/19/17 at 10:59; Stop 09/19/17 at 11:00; Status DC Norepinephrine Bitartrate 250 ml @ As Directed STK-MED ONCE IV ; Start at 10:59; Stop 09/19/17 at 11:00; Status DC Furosemide (Lasix) 20 mg 1X ONCE IVP ; Start 09/19/17 at 11:15; Stop at 11:16; Status DC Vecuronium Wana (Norcuron Bolus) 10 mg STK-MED ONCE IV ; Start 09/19/17 at 11:21; Stop 09/19/17 at 11:22; Status DC Fentanyl Citrate 30 ml @ 0 mls/hr CONT PRN IV PROTOCOL Last administered on 15:08; Start 09/19/17 at 11:30; Stop 09/23/17 at 15:24; Status DC Vecuronium Wana (Norcuron Bolus) 6 mg 1X ONCE IV Last administered on 09/19 11:42; Start 09/19/17 at 11:30; Stop 09/19/17 at 11:39; Status DC Propofol 10 ml @ 0 mls/hr 1X ONCE IV Last administered on 09/19/17 11:30; Start 09/19/17 at 11:30; Stop 09/19/17 at 11:39; Status DC Midazolam HCl 100 ml @ 0 mls/hr CONT PRN IV SEE I/O RECORD Last administered on 09/24/17 14:36; Start 09/19/17 at 11:30 Norepinephrine Bitartrate 250 ml @ 0 mls/hr CONT PRN IV SEE I/O RECORD Last administered on 09/24/17 05:18; Start 09/19/17 at 11:30 Succinylcholine Chloride (Anectine) 100 mg 1X ONCE IV Last administered on 11:42; Start 09/19/17 at 11:30; Stop 09/19/17 at 11:39; Status DC Sodium Bicarbonate 50 meq 1X ONCE IV Last administered on 09/19/17 13:23; Start 09/19/17 at 12:45; Stop 09/19/17 at 12:46; Status DC Sodium Bicarbonate 50 meq 1X ONCE IV Last administered on 09/19/17 13:23; Start 09/19/17 at 12:45; Stop 09/19/17 at 12:46; Status DC Lidocaine/Sodium Bicarbonate (Buffered Lidocaine 1%) 20 ml STK-MED ONCE IJ ; Start 09/19/17 at 13:34; Stop 09/19/17 at 13:35; Status DC Vecuronium Wana (Norcuron Bolus) 10 mg 1X ONCE IV Last administered on 15:05; Start 09/19/17 at 14:00; Stop 09/19/17 at 14:02; Status DC Lidocaine/Sodium Bicarbonate (Buffered Lidocaine 1%) 3 ml 1X ONCE IJ ; Start 09/19/17 at 14:45; Stop 09/19/17 at 14:46; Status DC Vancomycin HCl 1.25 gm/Dextrose 250 ml @ 166.667 mls/hr Q24H IV Last administered on 09/23/17 17:19; Start 09/20/17 at 15:00; Stop 09/24/17 at 08 :35; Status DC Vancomycin HCl 1 each 1X ONCE MC Last administered on 09/21/17 14:30; Start 09/21/17 at 14:30; Stop 09/21/17 at 14:31; Status DC Azithromycin 500 mg/Sodium Chloride 250 ml @ 250 mls/hr Q24H IV Last administered on 09/23/17 17:19; Start 09/19/17 at 16:30; Stop 09/24/17 at 08 :35; Status DC Norepinephrine Bitartrate (Levophed 8mg/ 250ml Premix Drip) 8 mg STK-MED ONCE IV ; Start 09/19/17 at 11:00; Stop 09/20/17 at 08:44; Status DC Midazolam HCl (Versed) 5 mg STK-MED ONCE .ROUTE ; Start 09/19/17 at 11:00; Stop 09/20/17 at 08:44; Status DC Amino Acids/ Glycerin/ Electrolytes 1,000 ml @ 80 mls/hr [id number] IV Last administered on 11/17/17at 01:21; Start 09/20/17 at 10:00; Stop 09/22/17 at 07 :02; Status DC Info 1 each PRN DAILY PRN MC SEE COMMENTS; Start 09/20/17 at 10:00; Stop at 12:14; Status DC Furosemide (Lasix) 20 mg 1X ONCE IVP Last administered on 09/20/17 10:21; Start 09/20/17 at 10:15; Stop 09/20/17 at 10:18; Status DC Info 1 each PRN DAILY PRN MC SEE COMMENTS; Start 09/20/17 at 11:00; Status UNV Vecuronium Wana (Norcuron Bolus) 10 mg 1X ONCE IV Last administered on 12:03; Start 09/20/17 at 11:15; Stop 09/20/17 at 11:24; Status DC Atropine Sulfate 0.5 mg STK-MED ONCE .ROUTE ; Start 09/20/17 at 11:47; Stop at 11:48; Status DC Epinephrine HCl (EPINEPHrine SYRINGE) 1 mg STK-MED ONCE .ROUTE ; Start at 11:47; Stop 09/20/17 at 11:48; Status DC Atropine Sulfate 0.5 mg STK-MED ONCE .ROUTE ; Start 09/20/17 at 12:00; Stop at 09:11; Status DC Epinephrine HCl (EPINEPHrine SYRINGE) 1 mg STK-MED ONCE .ROUTE ; Start at 12:00; Stop 09/21/17 at 09:11; Status DC Furosemide (Lasix) 20 mg DAILY IVP ; Start 09/21/17 at 11:15; Stop 09/21/17 at 11:20; Status DC Lorazepam (Ativan) 1 mg PRN Q1HR PRN IV ANXIETY / AGITATION Last administered on 09/23/17 05:49; Start 09/21/17 at 11:15 Albumin Human 250 ml @ 62.5 mls/hr 1X ONCE IV Last administered on 11:57; Start 09/21/17 at 11:30; Stop 09/21/17 at 15:29; Status DC Albumin Human 250 ml @ 62.5 mls/hr 1X ONCE IV Last administered on 14:29; Start 09/21/17 at 11:30; Stop 09/21/17 at 15:29; Status DC Micafungin Sodium 100 mg/Dextrose 100 ml @ 100 mls/hr Q24H IV Last administered on 09/23/17 13:17; Start 09/21/17 at 12:00; Stop 09/24/17 at 08 :35; Status DC Vecuronium Wana (Norcuron Bolus) 4 mg PRN Q4HRS PRN IV AGITATION; Start at 15:00 Dexmedetomidine HCl 200 mcg/ Sodium Chloride 50 ml @ 0 mls/hr CONT PRN IV PER PROTOCOL Last administered on 09/21/17 15:54; Start 09/21/17 at 15:30 Sodium Chloride 500 ml @ 500 mls/hr 1X PRN PRN IV SEE COMMENTS; Start at 15:30 Atropine Sulfate 0.5 mg PRN Q5MIN PRN IV SEE COMMENTS; Start 09/21/17 at 15:30 Propofol 100 ml @ 0 mls/hr CONT PRN IV PER PROTOCOL Last administered on 14:27; Start 09/21/17 at 16:45 Furosemide (Lasix) 20 mg 1X ONCE IVP Last administered on 09/22/17 09:41; Start 09/22/17 at 10:15; Stop 09/22/17 at 10:16; Status DC Chlorhexidine Gluconate (Peridex) 15 ml BID MM Last administered on 09/24/17 10:36; Start 09/22/17 at 21:00 Furosemide (Lasix) 20 mg 1X ONCE IVP Last administered on 09/22/17 17:55; Start 09/22/17 at 18:00; Stop 09/22/17 at 18:01; Status DC Furosemide (Lasix) 20 mg DAILY IVP Last administered on 09/23/17 13:16; Start 09/23/17 at 11:30; Stop 09/24/17 at 08:40; Status DC Methylprednisolone Sodium Succinate (SOLU-Medrol 125MG VIAL) 80 mg Q8HRS IV Last administered on 09/24/17 14:18; Start 09/23/17 at 14:00 Fentanyl Citrate 55 ml @ 0 mls/hr CONT PRN PRN IV PER PROTOCOL Last administered on 11/19/17at 21:03; Start 09/23/17 at 12:15 Dextrose 1,000 ml @ 25 mls/hr Q24H IV Last administered on 09/23/17 13:16; Start 09/23/17 at 11:45 Enoxaparin Sodium (Lovenox Per Pharmacy Prophylaxis Dosing) 1 each PRN DAILY PRN MC SEE COMMENTS; Start 09/23/17 at 16:30; Stop 09/24/17 at 08:41; Status DC Enoxaparin Sodium (Lovenox 40mg Syringe) 40 mg Q24H SQ ; Start 09/23/17 at 17: 00 Bisacodyl (Dulcolax Tab) 5 mg PRN DAILY PRN PO CONSTIPATION; Start 09/24/17 at 09:30 Active Scripts Active Reported Gabapentin 300 Mg Capsule 300 Mg PO TID Cymbalta (Duloxetine Hcl) 60 Mg Capsule. 1 Cap PO BID Hydrochlorothiazide Tablet (Hydrochlorothiazide) 25 Mg Tablet 1 Tab PO DAILY Xanax (Alprazolam) 1 Mg Tablet 1 Tab PO TID PRN Vitals/I & O Vital Sign - Last 24 Hours 09/23/17 09/23/17 09/23/17 09/23/17 17:15 17:30 17:45 18:00 Pulse 80 78 74 74 Resp 22 22 22 22 B/P (MAP) 128/84 (99) 115/75 (88) 107/71 (83) 106/69 (81) Pulse Ox 99 99 100 100 O2 Delivery Ventilator Ventilator Ventilator Ventilator 09/23/17 09/23/17 09/23/17 09/23/17 18:24 19:00 19:41 20:00 Temp 97.8 97.8 Pulse 74 72 Resp 22 22 B/P (MAP) 108/74 (85) 108/74 (85) Pulse Ox 100 100 99 O2 Delivery Ventilator Ventilator Mechanical Ventilator Ventilator 09/23/17 09/23/17 09/23/17 09/23/17 20:06 20:07 21:00 21:03 Pulse 71 Resp 22 12 B/P (MAP) 104/75 (85) Pulse Ox 100 100 99 99 O2 Delivery Ventilator Ventilator Ventilator Ventilator 09/23/17 09/23/17 09/23/17 09/23/17 21:33 22:00 23:00 23:04 Pulse 68 65 Resp 22 22 22 B/P (MAP) 104/72 (83) 101/64 (76) Pulse Ox 100 100 99 100 O2 Delivery Ventilator Ventilator Ventilator Ventilator 09/24/17 09/24/17 09/24/17 09/24/17 00:00 00:00 01:00 01:29 Temp 97.5 97.5 Pulse 69 65 Resp 22 22 B/P (MAP) 107/75 (86) 99/66 (77) Pulse Ox 100 100 100 O2 Delivery Ventilator Mechanical Ventilator Ventilator Ventilator 09/24/17 09/24/17 09/24/17 09/24/17 02:00 03:00 03:09 04:00 Temp 98.4 98.4 Pulse 65 64 64 Resp 22 22 22 B/P (MAP) 97/62 (74) 95/70 (78) 97/64 (75) Pulse Ox 100 99 100 99 O2 Delivery Ventilator Ventilator Ventilator Ventilator 09/24/17 09/24/17 09/24/17 09/24/17 04:00 05:00 05:15 06:00 Pulse 67 62 Resp 22 22 B/P (MAP) 97/64 (75) 93/63 (73) Pulse Ox 100 100 99 O2 Delivery Mechanical Ventilator Ventilator Ventilator Ventilator 09/24/17 09/24/17 09/24/17 09/24/17 07:00 07:30 07:47 08:00 Temp 98.2 98.2 Pulse 70 68 72 Resp 22 22 22 B/P (MAP) 97/67 (77) 102/68 (79) 104/70 (81) Pulse Ox 99 99 99 99 O2 Delivery Ventilator Ventilator Ventilator Ventilator 09/24/17 09/24/17 09/24/17 09/24/17 08:00 08:30 09:00 09:45 Pulse 72 64 Resp 22 22 B/P (MAP) 102/69 (80) 91/72 (78) Pulse Ox 100 100 100 O2 Delivery Mechanical Ventilator Ventilator Ventilator Ventilator 09/24/17 09/24/17 09/24/17 09/24/17 10:00 11:00 12:00 12:00 Pulse 63 73 62 Resp 22 22 21 B/P (MAP) 125/78 (94) 109/67 (81) 103/66 (78) Pulse Ox 99 100 100 O2 Delivery Ventilator Ventilator Mechanical Ventilator Ventilator O2 Flow Rate 60.0 1109/24/17 09/24/17 09/24/17 12:00 12:25 13:00 14:00 Temp 98.4 98.4 Pulse 64 82 Resp 21 22 B/P (MAP) 104/72 (83) 120/81 (94) Pulse Ox 100 100 100 O2 Delivery Ventilator Ventilator Ventilator O2 Flow Rate 60.0 60.0 09/24/17 09/24/17 09/24/17 14:20 15:00 15:38 Pulse 73 Resp 22 B/P (MAP) 100/63 (75) Pulse Ox 99 100 100 O2 Delivery Ventilator Ventilator Ventilator Intake and Output 09/23/17 09/23/17 09/24/17 15:00 23:00 07:00 Intake Total 330 ml 2178.5 ml 1292 ml Output Total 600 ml 900 ml 450 ml Balance -270 ml 1278.5 ml 842 ml ELLA ORTEGA MD Sep 24, 2017 17:13
[2017-09-25] VITALS (26 sets, daily range): BP systolic 90–125; BP diastolic 57–80
[2017-09-25] MEDS: fentaNYL HIGH DOSE PCA 55 ML IV PRN (02:41)
[2017-09-25] MEDS: IPRATRPIUM/ALBUTEROL 0.5/2.5MG 3 ML NEBU. NEB SCH ×6 (02:58→23:23)
[2017-09-25] MEDS: MIDAZOLAM 100MG/100ML PREMIX 100 ML IV PRN ×2 (04:09→10:35)
[2017-09-25] MEDS: PIPERACILLIN/TAZO IV Push 3.375 GM VIAL. IVP SCH ×3 (05:42→17:20)
[2017-09-25] MEDS: methylPREDNISolone SOD SUCC PF 125 MG/2 ML VIAL. IV SCH ×3 (05:43→21:33)
--- NOTE | 2017-09-25 08:11 | PDOC ---
Infectious Disease Note Subjective Subjective Remains intubated, FiO2 50% Sedated BP stable, off Levophed No fever ROS ROS unable to do Vital Sign Vital Signs Vital Signs Date Time Temp Pulse Resp B/P (MAP) Pulse Ox O2 Delivery O2 Flow Rate FiO2 09/25/17 07:00 99.1 72 12 105/61 (76) 97 Ventilator 99.1 09/24/17 14:00 60.0 Physical Exam PHYSICAL EXAM GENERAL: NAD, on vent , sedated HEENT: PERRL, OC/OP NECK: Supple, no JVD, no LN LUNGS: Clear HEART: S1S2, no gallop, no murmur ABD: Soft, NT, no organomegaly, no rebound EXT: No edema, no cyanosis [employer]: sedated on vent SKIN: No rash IV: ok Labs Micro culture neg Objective Assessment Acute Resp failure - intubated Strep/Legionella antigens - neg. S/p Bronch 09/20 , no growth to date Hypotension, now off Levophed Lactic normal/Procalcitonin mild - elevation Pulm infiltrates - ARDS ? if transfusions could be playing into resp failure Anemia - on arrival s/p PRBCs - GI following Leukocytosis - on steroids now and S/p PRBCs GEO -stable Transaminitis - ? reactive COPD H/o Leg wounds - no recent abx per for wounds - last amox 6 weeks ago Influenza vaccine 09/17 - given Plan Plan of Care cont zosyn, Resp viral panel/Silver stain was ordered but cancelled by Pathology F/u Mycoplasma 09/20 pending Parvo (with anemia although no rash or joint pains) ANCA pending F/u labs and cults cont supportive care CHRIS RODRIGUEZ MD Sep 25, 2017 08:11
[2017-09-25] MEDS: BUDESONIDE 0.5 MG/2 ML NEBU. NEB SCH ×2 (08:29→19:40)
--- NOTE | 2017-09-25 08:32 | PDOC ---
SUBJECTIVE ROS GEO/ CKD III and ^Na remains sedated and intubated in NAD OBJECTIVE Vital Signs Vital Signs Date Time Temp Pulse Resp B/P (MAP) Pulse Ox O2 Delivery O2 Flow Rate FiO2 09/25/17 07:00 99.1 72 12 105/61 (76) 97 Ventilator 99.1 09/24/17 14:00 60.0 I & 0 Intake and Output 09/25/17 07:00 Intake Total 3359.41 ml Output Total 1635 ml Balance 1724.41 ml IV Total 1281.41 ml Tube Feeding 1853 ml Other 225 ml Output Urine Total 1635 ml Gastric Drainage Total 0 ml PHYSICAL EXAM Physical Exam GEN: SEdated and intubated In no distress EYES: Sclera anicteric, Conjunctiva Normal EN: No EN Drainage, Mucous Membranes moist NECK: no JVD, + JVP, Supple, no Thyromegaly CVS: S1S2, min Murmur, No Gallop, No Rub, Tr ankle Edema RESP: no Rales, no Rhonchi,no Acc. Muscle Use; GI: BS hypoactive, NO Bruit, Non Tender, Non Distended : no CVA tenderness, no Suprapubic Tenderness DIAGNOSIS/ASSESSMENT GEO - Current fluid and E-lyte status does not necessitate emergent need for dialysis. Will re-evaluate for dialysis in the am ; Creat is stable, UA is benign and Holly < 60 (making ATN less likely). 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 WOuld like to minimize water flushes due to volume/ pulm issues Azotemia - asso with Steroid use, Tf - watch off of Lasix for now Suspect CKD III - with cortical thinning of Left Kidney; Possible CKD due to Ch NSAID use ? Analgesic Nephropathy - ch NSAID use noted SEVERE ANEMIA OA- now appears better - defer to Dr Celeste SEPSIS with PNEUMONIA and ? ARDS - defer to Pulm and ID Lowish BP - may improve when sedation is weaned, watch off of Lasix Discussed Plan of Care with family at bedside COMMENT/RELEVANT DATA Meds Current Medications Medications (Trade) Dose Ordered Sig/Vernon Start Time Stop Time Status Last Admin Dose Admin Albumin Human 250 ml @ 62.5 mls/hr 1X ONCE 09/21/17 11:30 09/21/17 15:29 DC 09/21/17 14:29 62.5 MLS/HR Albuterol/ Ipratropium (Duoneb) 3 ml Q4HRS 09/17/17 20:00 09/25/17 08:02 3 ML Alprazolam (Xanax) 1 mg PRN TID PRN 09/17/17 22:30 09/19/17 02:19 1 MG Amino Acids/ Glycerin/ Electrolytes 1,000 ml @ 80 mls/hr [id number] 09/20/17 10:00 09/22/17 07:02 DC 09/21/17 01:21 80 MLS/HR Atropine Sulfate 0.5 mg PRN Q5MIN PRN 09/21/17 15:30 Azithromycin (Zithromax) 250 mg DAILY 09/18/17 09:00 09/19/17 10:30 DC 09/18/17 10:25 250 MG Azithromycin 500 mg/Sodium Chloride 250 ml @ 250 mls/hr Q24H 09/19/17 16:30 09/24/17 08:35 DC 09/23/17 17:19 250 MLS/HR Bisacodyl (Dulcolax Tab) 5 mg PRN DAILY PRN 09/24/17 09:30 Budesonide (Pulmicort) 0.5 mg 1X ONCE 09/19/17 10:45 09/19/17 10:46 DC 09/19/17 12:50 0.5 MG Ceftriaxone Sodium 1 gm/ Dextrose 50 ml @ 100 mls/hr Q24H 09/17/17 17:15 UNV Ceftriaxone Sodium (Rocephin) 1 gm Q24H 09/18/17 16:00 09/19/17 10:30 DC 09/18/17 17:55 1 GM Chlorhexidine Gluconate (Peridex) 15 ml BID 09/22/17 21:00 09/24/17 21:03 15 ML Dexmedetomidine HCl 200 mcg/ Sodium Chloride 50 ml @ 0 mls/hr CONT PRN 09/21/17 15:30 09/21/17 15:54 3.6 MLS/HR Dextrose 1,000 ml @ 25 mls/hr Q24H 09/23/17 11:45 09/24/17 21:53 25 MLS/HR Enoxaparin Sodium (Lovenox 40mg Syringe) 40 mg Q24H 09/23/17 17:00 Enoxaparin Sodium (Lovenox Per Pharmacy Prophylaxis Dosing) 1 each PRN DAILY PRN 09/23/17 16:30 09/24/17 08:41 DC Epinephrine HCl (EPINEPHrine SYRINGE) 1 mg STK-MED ONCE 09/20/17 12:00 09/21/17 09:11 DC Fentanyl Citrate 55 ml @ 0 mls/hr CONT PRN PRN 09/23/17 12:15 09/25/17 02:41 1.98 MLS/HR Fentanyl Citrate (Fentanyl 2ml Vial) 50 mcg 1X ONCE 09/19/17 11:00 09/19/17 11:01 DC Furosemide (Lasix) 20 mg DAILY 09/23/17 11:30 09/24/17 08:40 DC 09/23/17 13:16 20 MG Guaifenesin (Robitussin Dm) 10 ml PRN Q6HRS PRN 09/17/17 17:15 Haloperidol Lactate (Haldol) 5 mg PRN Q12HRS PRN 09/18/17 13:45 Influenza Virus Vaccine Quadrival (Fluarix Quad [id number] Syringe) 0.5 ml ONCE ONCE 09/17/17 21:00 09/17/17 21:01 DC Info 1 each PRN DAILY PRN 09/20/17 11:00 UNV Info (Do NOT chart on this placeholder) 1 each 1X ONCE 09/17/17 19:00 09/17/17 19:01 UNV Iron Sucrose 500 mg/Sodium Chloride 275 ml @ 78.571 mls/ hr 1X ONCE 09/18/17 09:00 09/18/17 12:29 DC 09/18/17 10:24 78.571 MLS/HR Lidocaine/Sodium Bicarbonate (Buffered Lidocaine 1%) 3 ml 1X ONCE 09/19/17 14:45 09/19/17 14:46 DC Lorazepam (Ativan) 1 mg PRN Q1HR PRN 09/21/17 11:15 09/23/17 05:49 1 MG Methylprednisolone Sodium Succinate (SOLU-Medrol 125MG VIAL) 80 mg Q8HRS 09/23/17 14:00 09/25/17 05:43 80 MG Micafungin Sodium 100 mg/Dextrose 100 ml @ 100 mls/hr Q24H 09/21/17 12:00 09/24/17 08:35 DC 09/23/17 13:17 100 MLS/HR Midazolam HCl (Versed) 5 mg STK-MED ONCE 09/19/17 11:00 09/20/17 08:44 DC Norepinephrine Bitartrate (Levophed 8mg/ 250ml Premix Drip) 8 mg STK-MED ONCE 09/19/17 11:00 09/20/17 08:44 DC Ondansetron HCl (Zofran) 4 mg PRN Q8HRS PRN 09/17/17 16:30 09/18/17 16:29 DC Oxycodone/ Acetaminophen (Percocet 5/325) 1 tab PRN Q6HRS PRN 09/18/17 12:15 09/18/17 13:23 1 TAB Pantoprazole Sodium (Protonix Vial) 40 mg DAILYAC 09/19/17 11:30 09/24/17 10:35 40 MG Pantoprazole Sodium (Protonix) 40 mg DAILYAC 09/18/17 11:00 09/19/17 13:41 DC 09/18/17 10:47 40 MG Piperacillin Sod/ Tazobactam Sod (Zosyn Per Pharmacy) 1 each PRN DAILY PRN 09/19/17 10:30 09/24/17 08:41 DC Piperacillin Sod/ Tazobactam Sod (Zosyn) 3.375 gm Q6HRS 09/19/17 11:00 09/25/17 05:42 3.375 GM Potassium Chloride (Klor-Con) 40 meq 1X ONCE 09/18/17 11:45 09/18/17 11:46 DC Prednisone (Prednisone) 40 mg DAILY 09/19/17 11:00 09/20/17 09:02 DC Propofol 100 ml @ 0 mls/hr CONT PRN 09/21/17 16:45 09/24/17 21:04 8.5 MLS/HR Quetiapine Fumarate (SEROquel) 25 mg HS 09/18/17 21:00 09/19/17 10:35 DC 09/18/17 21:03 25 MG Sodium Bicarbonate 50 meq 1X ONCE 09/19/17 12:45 09/19/17 12:46 DC 09/19/17 13:23 50 MEQ Sodium Chloride 500 ml @ 500 mls/hr 1X PRN PRN 09/21/17 15:30 Succinylcholine Chloride (Anectine) 100 mg 1X ONCE 09/19/17 11:30 09/19/17 11:39 DC 09/19/17 11:42 100 MG Vancomycin HCl 1 each 1X ONCE 09/21/17 14:30 09/21/17 14:31 DC 09/21/17 14:30 1 EACH Vancomycin HCl (Vanco Per Pharmacy) 1 each PRN DAILY PRN 09/19/17 10:30 09/24/17 08:36 DC 09/23/17 12:36 1 EACH Vancomycin HCl 1.25 gm/Dextrose 250 ml @ 166.667 mls/hr Q24H 09/20/17 15:00 09/24/17 08:35 DC 09/23/17 17:19 166.667 MLS/HR Vancomycin HCl 2 gm/Dextrose 500 ml @ 250 mls/hr 1X ONCE 09/19/17 11:00 09/19/17 12:59 DC 09/19/17 14:53 250 MLS/HR Vecuronium [place] (Norcuron Bolus) 4 mg PRN Q4HRS PRN 09/21/17 15:00 ARCADIO RODRIGUEZ MD Sep 25, 2017 08:32
[2017-09-25 08:34] LABS: HCO3 ABG 23 mmol/L (21-28); PCO2 ABG 36 mmHg (35-46); PH ABG 7.43 (7.35-7.45); PO2 ABG 83 mmHg (65-108); SAT O2 ABG 96 % (92-99)
[2017-09-25 08:39] LABS: FIO2 ABG 50
[2017-09-25] MEDS: CHLORHEXIDINE 0.12% 15 ML MOUTHWASH. MM SCH ×2 (09:00→21:33)
--- NOTE | 2017-09-25 09:08 | RAD ---
EXAM: Chest one view. HISTORY: Respiratory failure. Intubated. COMPARISON: 09/24/2017. FINDINGS: A frontal view of the chest is obtained. An endotracheal tube has its tip 2.5 cm above the radha. A nasogastric tube has its tip below the inferior margin of the field of view. A right subclavian central venous catheter has its tip in the superior vena cava. Retrocardiac opacity appears increased. There is stable mild mostly interstitial infiltrates elsewhere in the bases. Small bilateral pleural effusions are likely present. There is no pneumothorax. The heart is not enlarged. IMPRESSION: 1. Increased retrocardiac consolidation. 2. Interstitial infiltrates elsewhere indicate mild pulmonary edema and appear slightly improved.
[2017-09-25] MEDS: PANTOPRAZOLE IV PUSH 40 MG VIAL. IVP SCH (09:32)
[2017-09-25 10:26] LABS: L PNEUMOPHILA (BAL) Not Detected (.); PAN LEGIONELLA (BAL) Not Detected (.)
[2017-09-25 10:26] LABS: L PNEUMOPHILA (BAL) Not Detected (.); PAN LEGIONELLA (BAL) Not Detected (.)
[2017-09-25] MEDS: PROPOFOL 100 ML IV PRN ×3 (10:36→22:58)
--- NOTE | 2017-09-25 11:14 | PDOC ---
Objective: Objective: No GI concerns per RN. Vital Signs: Vital Signs Date Time Temp Pulse Resp B/P (MAP) Pulse Ox O2 Delivery O2 Flow Rate FiO2 09/25/17 10:00 64 20 100/62 (75) 99 Ventilator 09/25/17 08:00 09/25/17 07:00 99.1 99.1 Labs: Laboratory Tests Test 09/25/17 08:00 O2 Saturation 96 % Arterial Blood pH 7.43 Arterial Blood pCO2 at Patient Temp 36 mmHg Arterial Blood pO2 at Patient Temp 83 mmHg Arterial Blood HCO3 23 mmol/L Arterial Blood Base Excess -1 mmol/L FiO2 50 PE: GEN: intubated LUNGS: vent HEART: RRR ABD: NABS, S/ND/NT NEURO/PSYCH: sedated A/P: STUART -Hgb stable (last checked 09/24), no obvious bleeding -colonoscopy last year w/ polyp, remote h/o EGD, daily NSAID use -on IV PPI, OG w/ tube feeds Resp failure - intubated on atbx and steroids -- Continue same per GI. SHAHLA FISHER Sep 25, 2017 11:14
[2017-09-25 12:01] LABS: HEMOGLOBIN 9.3 g/dL (12.0-15.5); RED BLOOD COUNT 3.72 x10^6/uL (3.50-5.40); RED CELL DISTRIBUTION WIDTH 27.6 % (11.5-14.5); WHITE BLOOD COUNT 11.8 x10^3/uL (4.0-11.0)
[2017-09-25 12:12] LABS: CALCIUM 8.4 mg/dL (8.5-10.1); CREATININE 1.3 mg/dL (0.6-1.0); GFR 41.8; MAGNESIUM 2.7 mg/dL (1.8-2.4); POTASSIUM 4.2 mmol/L (3.5-5.1)
[2017-09-25] MEDS ORDERED: DEXTROSE 50% 25 GM / 50ML DISP.SYRIN. IV PRN (12:30)
--- NOTE | 2017-09-25 12:30 | PDOC ---
PROGRESS NOTES Chief Complaint Chief Complaint Acute hypoxic respiratory failure consistent with ARDS, improved down to 50% Fi02 Pneumonia Hypotension COPD Sepsis Leukocytosis - on steroids now and S/p PRBCs Anemia, acute on chronic, w. sepsis Transaminitis - ? 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 OG feeding tube in place Vitals Vitals Vital Signs Date Time Temp Pulse Resp B/P (MAP) Pulse Ox O2 Delivery O2 Flow Rate FiO2 09/25/17 11:00 70 22 98/62 (74) 99 Ventilator 09/25/17 08:00 09/25/17 07:00 99.1 99.1 Physical Exam Physical Exam PERRLA General: No acute distress Heart: Regular rate, Normal S1, Normal S2 Lungs: Clear, Other (no wheezes or crackles ) Abdomen: Normal bowel sounds, Soft, No hepatosplenomegaly Extremities: No clubbing, No edema, Normal pulses Skin: No rashes, No breakdown, No significant lesion Labs LABS Laboratory Tests Test 09/25/17 08:00 09/25/17 11:50 O2 Saturation 96 % (92-99) Arterial Blood pH 7.43 (7.35-7.45) Arterial Blood pCO2 at Patient Temp 36 mmHg (35-46) Arterial Blood pO2 at Patient Temp 83 mmHg (65-108) Arterial Blood HCO3 23 mmol/L (21-28) Arterial Blood Base Excess -1 mmol/L (-3-3) FiO2 50 White Blood Count 11.8 x10^3/uL (4.0-11.0) Red Blood Count 3.72 x10^6/uL (3.50-5.40) Hemoglobin 9.3 g/dL (12.0-15.5) Hematocrit 31.0 % (36.0-47.0) Mean Corpuscular Volume 83 fL (79-100) Mean Corpuscular Hemoglobin 25 pg (25-35) Mean Corpuscular Hemoglobin Concent 30 g/dL (31-37) Red Cell Distribution Width 27.6 % (11.5-14.5) Platelet Count 251 x10^3/uL (140-400) Sodium Level 148 mmol/L (136-145) Potassium Level 4.2 mmol/L (3.5-5.1) Chloride Level 115 mmol/L (98-107) Carbon Dioxide Level 27 mmol/L (21-32) Anion Gap 6 (6-14) Blood Urea Nitrogen 56 mg/dL (7-20) Creatinine 1.3 mg/dL (0.6-1.0) Estimated GFR (Cockcroft-Gault) 41.8 Glucose Level 206 mg/dL (70-99) Calcium Level 8.4 mg/dL (8.5-10.1) Magnesium Level 2.7 mg/dL (1.8-2.4) Review of Systems Review of Systems Unobtainable- pt. on vent. Assessment and Plan Assessmemt and Plan Problems Medical Problems: (1) Dyspnea Status: Acute (2) Hypoalbuminemia Status: Acute (3) Metabolic acidosis Status: Acute (4) Pneumonia Status: Acute Assessment: Acute hypoxic respiratory failure consistent with ARDS, improved down to 50% Fi02 Pneumonia Hypotension COPD Sepsis Leukocytosis - on steroids now and S/p PRBCs Anemia, acute on chronic, w. sepsis Transaminitis - ? reactive GEO -stable Tobaccoism Anxiety d/o H/o Leg wounds - no recent abx per for wounds - last amox 6 weeks ago Influenza vaccine 09/17 - given Plan: Sliding scale insulin ordered Continue ICU monitoring Continue home medications Continue abx Recheck labs in AM Problems: Comment Review of Relevant I have reviewed the following items tha (where applicable) has been applied. Labs Laboratory Tests Test 09/24/17 05:30 09/24/17 07:45 09/25/17 08:00 09/25/17 11:50 White Blood Count 13.6 x10^3/uL (4.0-11.0) 11.8 x10^3/uL (4.0-11.0) Red Blood Count 3.57 x10^6/uL (3.50-5.40) 3.72 x10^6/uL (3.50-5.40) Hemoglobin 8.7 g/dL (12.0-15.5) 9.3 g/dL (12.0-15.5) Hematocrit 29.3 % (36.0-47.0) 31.0 % (36.0-47.0) Mean Corpuscular Volume 82 fL (79-100) 83 fL (79-100) Mean Corpuscular Hemoglobin 24 pg (25-35) 25 pg (25-35) Mean Corpuscular Hemoglobin Concent 30 g/dL (31-37) 30 g/dL (31-37) Red Cell Distribution Width 25.8 % (11.5-14.5) 27.6 % (11.5-14.5) Platelet Count 247 x10^3/uL (140-400) 251 x10^3/uL (140-400) Neutrophils (%) (Auto) 94 % (31-73) Lymphocytes (%) (Auto) 2 % (24-48) Monocytes (%) (Auto) 4 % (0-9) Eosinophils (%) (Auto) 0 % (0-3) Basophils (%) (Auto) 0 % (0-3) Neutrophils # (Auto) 12.8 x10^3uL (1.8-7.7) Lymphocytes # (Auto) 0.3 x10^3/uL (1.0-4.8) Monocytes # (Auto) 0.5 x10^3/uL (0.0-1.1) Eosinophils # (Auto) 0.0 x10^3/uL (0.0-0.7) Basophils # (Auto) 0.0 x10^3/uL (0.0-0.2) Sodium Level 147 mmol/L (136-145) 148 mmol/L (136-145) Potassium Level 3.7 mmol/L (3.5-5.1) 4.2 mmol/L (3.5-5.1) Chloride Level 113 mmol/L (98-107) 115 mmol/L (98-107) Carbon Dioxide Level 26 mmol/L (21-32) 27 mmol/L (21-32) Anion Gap 8 (6-14) 6 (6-14) Blood Urea Nitrogen 55 mg/dL (7-20) 56 mg/dL (7-20) Creatinine 1.5 mg/dL (0.6-1.0) 1.3 mg/dL (0.6-1.0) Estimated GFR (Cockcroft-Gault) 35.4 41.8 BUN/Creatinine Ratio 37 (6-20) Glucose Level 230 mg/dL (70-99) 206 mg/dL (70-99) Calcium Level 8.5 mg/dL (8.5-10.1) 8.4 mg/dL (8.5-10.1) Total Bilirubin 0.5 mg/dL (0.2-1.0) Aspartate Amino Transf (AST/SGOT) 31 U/L (15-37) Alanine Aminotransferase (ALT/SGPT) 101 U/L (14-59) Alkaline Phosphatase 62 U/L (46-116) Total Protein 5.2 g/dL (6.4-8.2) Albumin 2.4 g/dL (3.4-5.0) Albumin/Globulin Ratio 0.9 (1.0-1.7) O2 Saturation 98 % (92-99) 96 % (92-99) Arterial Blood pH 7.41 (7.35-7.45) 7.43 (7.35-7.45) Arterial Blood pCO2 at Patient Temp 36 mmHg (35-46) 36 mmHg (35-46) Arterial Blood pO2 at Patient Temp 108 mmHg (65-108) 83 mmHg (65-108) Arterial Blood HCO3 22 mmol/L (21-28) 23 mmol/L (21-28) Arterial Blood Base Excess -2 mmol/L (-3-3) -1 mmol/L (-3-3) FiO2 50 50 Magnesium Level 2.7 mg/dL (1.8-2.4) Laboratory Tests Test 09/25/17 08:00 09/25/17 11:50 O2 Saturation 96 % (92-99) Arterial Blood pH 7.43 (7.35-7.45) Arterial Blood pCO2 at Patient Temp 36 mmHg (35-46) Arterial Blood pO2 at Patient Temp 83 mmHg (65-108) Arterial Blood HCO3 23 mmol/L (21-28) Arterial Blood Base Excess -1 mmol/L (-3-3) FiO2 50 White Blood Count 11.8 x10^3/uL (4.0-11.0) Red Blood Count 3.72 x10^6/uL (3.50-5.40) Hemoglobin 9.3 g/dL (12.0-15.5) Hematocrit 31.0 % (36.0-47.0) Mean Corpuscular Volume 83 fL (79-100) Mean Corpuscular Hemoglobin 25 pg (25-35) Mean Corpuscular Hemoglobin Concent 30 g/dL (31-37) Red Cell Distribution Width 27.6 % (11.5-14.5) Platelet Count 251 x10^3/uL (140-400) Sodium Level 148 mmol/L (136-145) Potassium Level 4.2 mmol/L (3.5-5.1) Chloride Level 115 mmol/L (98-107) Carbon Dioxide Level 27 mmol/L (21-32) Anion Gap 6 (6-14) Blood Urea Nitrogen 56 mg/dL (7-20) Creatinine 1.3 mg/dL (0.6-1.0) Estimated GFR (Cockcroft-Gault) 41.8 Glucose Level 206 mg/dL (70-99) Calcium Level 8.4 mg/dL (8.5-10.1) Magnesium Level 2.7 mg/dL (1.8-2.4) Microbiology 09/17/17 Blood Culture - Final, Complete NO GROWTH AFTER 5 DAYS 09/20/17 AFB Specimen Processing Tissue - Final, Resulted 09/20/17 Acid Fast Bacilli Culture, Resulted Pending 09/20/17 Gram Stain - Final, Resulted 09/20/17 Fungal Culture, Resulted Pending 09/20/17 Fungal Culture Result 1, Resulted Pending Medications Current Medications Sodium Chloride 1,000 ml @ 125 mls/hr 1X ONCE IV Last administered on 15:54; Start 09/17/17 at 15:15; Stop 09/17/17 at 23:14; Status DC Ondansetron HCl (Zofran) 4 mg PRN Q8HRS PRN IV NAUSEA/VOMITING; Start at 16:30; Stop 09/18/17 at 16:29; Status DC Ceftriaxone Sodium 50 ml @ 0 mls/hr 1X ONCE IV Last administered on 17:33; Start 09/17/17 at 16:45; Stop 09/17/17 at 16:46; Status DC Azithromycin 250 ml @ 250 mls/hr 1X ONCE IV Last administered on 09/17/17 22:38; Start 09/17/17 at 16:30; Stop 09/17/17 at 17:29; Status DC Albuterol/ Ipratropium (Duoneb) 3 ml 1X ONCE NEB Last administered on 17:00; Start 09/17/17 at 16:45; Stop 09/17/17 at 16:46; Status DC Potassium Chloride (Klor-Con) 40 meq 1X ONCE PO Last administered on 16:57; Start 09/17/17 at 16:45; Stop 09/17/17 at 16:46; Status DC Azithromycin (Zithromax) 250 mg DAILY PO Last administered on 09/18/17 10:25 ; Start 09/18/17 at 09:00; Stop 09/19/17 at 10:30; Status DC Ceftriaxone Sodium 1 gm/ Dextrose 50 ml @ 100 mls/hr Q24H IV ; Start 09/17/17 at 17:15; Status UNV Albuterol/ Ipratropium (Duoneb) 3 ml Q4HRS NEB Last administered on 09/25/17 08:02; Start 09/17/17 at 20:00 Ceftriaxone Sodium (Rocephin) 1 gm Q24H IVP Last administered on 09/18/17 17: 55; Start 09/18/17 at 16:00; Stop 09/19/17 at 10:30; Status DC Guaifenesin (Robitussin Dm) 10 ml PRN Q6HRS PRN PO COUGH; Start 09/17/17 at 17 :15 Sodium Chloride 1,000 ml @ 125 mls/hr 1X ONCE IV Last administered on 17:45; Start 09/17/17 at 17:15; Stop 09/17/17 at 22:12; Status DC Info (Do NOT chart on this placeholder) 1 each 1X ONCE MC ; Start 09/17/17 at 19:00; Stop 09/17/17 at 19:01; Status UNV Influenza Virus Vaccine Quadrival (Fluarix Quad [id number] Syringe) 0.5 ml ONCE ONCE VAX IM ; Start 09/17/17 at 21:00; Stop 09/17/17 at 21:01; Status DC Sodium Chloride 1,000 ml @ 130 mls/hr 1X ONCE IV Last administered on 22:31; Start 09/17/17 at 22:30; Stop 09/18/17 at 06:11; Status DC Sodium Bicarbonate 50 meq 1X ONCE IV Last administered on 09/17/17 22:31; Start 09/17/17 at 22:30; Stop 09/17/17 at 22:31; Status DC Alprazolam (Xanax) 1 mg PRN TID PRN PO ANXIETY Last administered on 09/19/17 02:19; Start 09/17/17 at 22:30 Furosemide (Lasix) 20 mg 1X ONCE IVP Last administered on 09/18/17 06:24; Start 09/18/17 at 06:30; Stop 09/18/17 at 06:31; Status DC Potassium Chloride (Klor-Con) 40 meq 1X ONCE PO Last administered on 10:25; Start 09/18/17 at 09:00; Stop 09/18/17 at 09:01; Status DC Iron Sucrose 500 mg/Sodium Chloride 275 ml @ 78.571 mls/ hr 1X ONCE IV Last administered on 09/18/17 10:24; Start 09/18/17 at 09:00; Stop 09/18/17 at 12 :29; Status DC Furosemide (Lasix) 20 mg 1X ONCE IVP Last administered on 09/18/17 10:30; Start 09/18/17 at 10:00; Stop 09/18/17 at 10:22; Status DC Pantoprazole Sodium (Protonix) 40 mg DAILYAC PO Last administered on 10:47; Start 09/18/17 at 11:00; Stop 09/19/17 at 13:41; Status DC Furosemide (Lasix) 20 mg 1X ONCE IVP Last administered on 09/18/17 10:47; Start 09/18/17 at 10:45; Stop 09/18/17 at 10:46; Status DC Potassium Chloride (Klor-Con) 40 meq 1X ONCE PO ; Start 09/18/17 at 11:45; Stop 09/18/17 at 11:46; Status DC Oxycodone/ Acetaminophen (Percocet 5/325) 1 tab PRN Q6HRS PRN PO PAIN Last administered on 09/18/17 13:23; Start 09/18/17 at 12:15 Lorazepam (Ativan) 1 mg PRN Q4HRS PRN IV ANXIETY / AGITATION Last administered on 09/18/17 12:25; Start 09/18/17 at 12:15; Stop 09/18/17 at 13:34; Status DC Fentanyl Citrate (Fentanyl 2ml Vial) 50 mcg PRN Q2HR PRN IV PAIN Last administered on 09/19/17 04:09; Start 09/18/17 at 12:15 Lorazepam (Ativan) 2 mg PRN Q4HRS PRN IV ANXIETY / AGITATION Last administered on 09/23/17 14:29; Start 09/18/17 at 13:30 Quetiapine Fumarate (SEROquel) 25 mg HS PO Last administered on 09/18/17 21: 03; Start 09/18/17 at 21:00; Stop 09/19/17 at 10:35; Status DC Haloperidol Lactate (Haldol) 5 mg PRN Q12HRS PRN IVP AGITATION; Start at 13:45 Lorazepam (Ativan) 1 mg PRN Q4HRS PRN IV ANXIETY / AGITATION; Start 09/19/17 at 10:15; Stop 09/19/17 at 10:18; Status DC Lorazepam (Ativan) 4 mg 1X ONCE IV ; Start 09/19/17 at 10:30; Stop 09/19/17 at 10:31; Status DC Vancomycin HCl (Vanco Per Pharmacy) 1 each PRN DAILY PRN MC SEE COMMENTS Last administered on 09/23/17 12:36; Start 09/19/17 at 10:30; Stop 09/24/17 at 08 :36; Status DC Piperacillin Sod/ Tazobactam Sod (Zosyn Per Pharmacy) 1 each PRN DAILY PRN MC SEE COMMENTS; Start 09/19/17 at 10:30; Stop 09/24/17 at 08:41; Status DC Vancomycin HCl 2 gm/Dextrose 500 ml @ 250 mls/hr 1X ONCE IV Last administered on 09/19/17 14:53; Start 09/19/17 at 11:00; Stop 09/19/17 at 12 :59; Status DC Piperacillin Sod/ Tazobactam Sod (Zosyn) 3.375 gm Q6HRS IVP Last administered on 09/25/17 11:49; Start 09/19/17 at 11:00 Budesonide (Pulmicort) 0.5 mg RTBID NEB Last administered on 09/25/17 08:29; Start 09/19/17 at 20:00 Budesonide (Pulmicort) 0.5 mg 1X ONCE NEB Last administered on 09/19/17 12: 50; Start 09/19/17 at 10:45; Stop 09/19/17 at 10:46; Status DC Pantoprazole Sodium (Protonix Vial) 40 mg DAILYAC IVP Last administered on 09:32; Start 09/19/17 at 11:30 Furosemide (Lasix) 40 mg DAILY IVP ; Start 09/19/17 at 11:00; Stop 09/20/17 at 13:20; Status DC Methylprednisolone Sodium Succinate (SOLU-Medrol 125MG VIAL) 125 mg 1X ONCE IV Last administered on 09/19/17 13:23; Start 09/19/17 at 10:45; Stop at 10:46; Status DC Prednisone (Prednisone) 40 mg DAILY PO ; Start 09/19/17 at 11:00; Stop at 09:02; Status DC Methylprednisolone Sodium Succinate (SOLU-Medrol 125MG VIAL) 125 mg Q8HRS IV Last administered on 09/23/17 05:43; Start 09/19/17 at 14:00; Stop 09/23/17 at 10:40; Status DC Midazolam HCl 100 ml @ 0 mls/hr CONT PRN IV SEE I/O RECORD; Start 09/19/17 at 11:00; Stop 09/19/17 at 12:51; Status DC Midazolam HCl (Versed) 5 mg 1X ONCE IV ; Start 09/19/17 at 11:00; Stop at 11:01; Status DC Fentanyl Citrate (Fentanyl 2ml Vial) 50 mcg 1X ONCE IV ; Start 09/19/17 at 11: 00; Stop 09/19/17 at 11:01; Status DC Midazolam HCl 100 ml @ As Directed STK-MED ONCE IV ; Start 09/19/17 at 10:55; Stop 09/19/17 at 10:56; Status DC Midazolam HCl (Versed) 5 mg STK-MED ONCE .ROUTE ; Start 09/19/17 at 10:55; Stop 09/19/17 at 10:56; Status DC Propofol 100 ml @ As Directed STK-MED ONCE IV ; Start 09/19/17 at 10:59; Stop 09/19/17 at 11:00; Status DC Norepinephrine Bitartrate 250 ml @ As Directed STK-MED ONCE IV ; Start at 10:59; Stop 09/19/17 at 11:00; Status DC Furosemide (Lasix) 20 mg 1X ONCE IVP ; Start 09/19/17 at 11:15; Stop at 11:16; Status DC Vecuronium [place] (Norcuron Bolus) 10 mg STK-MED ONCE IV ; Start 09/19/17 at 11:21; Stop 09/19/17 at 11:22; Status DC Fentanyl Citrate 30 ml @ 0 mls/hr CONT PRN IV PROTOCOL Last administered on 15:08; Start 09/19/17 at 11:30; Stop 09/23/17 at 15:24; Status DC Vecuronium [place] (Norcuron Bolus) 6 mg 1X ONCE IV Last administered on 09/19 11:42; Start 09/19/17 at 11:30; Stop 09/19/17 at 11:39; Status DC Propofol 10 ml @ 0 mls/hr 1X ONCE IV Last administered on 09/19/17 11:30; Start 09/19/17 at 11:30; Stop 09/19/17 at 11:39; Status DC Midazolam HCl 100 ml @ 0 mls/hr CONT PRN IV SEE I/O RECORD Last administered on 09/25/17 10:35; Start 09/19/17 at 11:30 Norepinephrine Bitartrate 250 ml @ 0 mls/hr CONT PRN IV SEE I/O RECORD Last administered on 09/24/17 05:18; Start 09/19/17 at 11:30 Succinylcholine Chloride (Anectine) 100 mg 1X ONCE IV Last administered on 11:42; Start 09/19/17 at 11:30; Stop 09/19/17 at 11:39; Status DC Sodium Bicarbonate 50 meq 1X ONCE IV Last administered on 09/19/17 13:23; Start 09/19/17 at 12:45; Stop 09/19/17 at 12:46; Status DC Sodium Bicarbonate 50 meq 1X ONCE IV Last administered on 09/19/17 13:23; Start 09/19/17 at 12:45; Stop 09/19/17 at 12:46; Status DC Lidocaine/Sodium Bicarbonate (Buffered Lidocaine 1%) 20 ml STK-MED ONCE IJ ; Start 09/19/17 at 13:34; Stop 09/19/17 at 13:35; Status DC Vecuronium [place] (Norcuron Bolus) 10 mg 1X ONCE IV Last administered on 15:05; Start 09/19/17 at 14:00; Stop 09/19/17 at 14:02; Status DC Lidocaine/Sodium Bicarbonate (Buffered Lidocaine 1%) 3 ml 1X ONCE IJ ; Start 09/19/17 at 14:45; Stop 09/19/17 at 14:46; Status DC Vancomycin HCl 1.25 gm/Dextrose 250 ml @ 166.667 mls/hr Q24H IV Last administered on 09/23/17 17:19; Start 09/20/17 at 15:00; Stop 09/24/17 at 08 :35; Status DC Vancomycin HCl 1 each 1X ONCE MC Last administered on 09/21/17 14:30; Start 09/21/17 at 14:30; Stop 09/21/17 at 14:31; Status DC Azithromycin 500 mg/Sodium Chloride 250 ml @ 250 mls/hr Q24H IV Last administered on 09/23/17 17:19; Start 09/19/17 at 16:30; Stop 09/24/17 at 08 :35; Status DC Norepinephrine Bitartrate (Levophed 8mg/ 250ml Premix Drip) 8 mg STK-MED ONCE IV ; Start 09/19/17 at 11:00; Stop 09/20/17 at 08:44; Status DC Midazolam HCl (Versed) 5 mg STK-MED ONCE .ROUTE ; Start 09/19/17 at 11:00; Stop 09/20/17 at 08:44; Status DC Amino Acids/ Glycerin/ Electrolytes 1,000 ml @ 80 mls/hr [id number] IV Last administered on 09/21/17 01:21; Start 09/20/17 at 10:00; Stop 09/22/17 at 07 :02; Status DC Info 1 each PRN DAILY PRN MC SEE COMMENTS; Start 09/20/17 at 10:00; Stop at 12:14; Status DC Furosemide (Lasix) 20 mg 1X ONCE IVP Last administered on 09/20/17 10:21; Start 09/20/17 at 10:15; Stop 09/20/17 at 10:18; Status DC Info 1 each PRN DAILY PRN MC SEE COMMENTS; Start 09/20/17 at 11:00; Status UNV Vecuronium [place] (Norcuron Bolus) 10 mg 1X ONCE IV Last administered on 12:03; Start 09/20/17 at 11:15; Stop 09/20/17 at 11:24; Status DC Atropine Sulfate 0.5 mg STK-MED ONCE .ROUTE ; Start 09/20/17 at 11:47; Stop at 11:48; Status DC Epinephrine HCl (EPINEPHrine SYRINGE) 1 mg STK-MED ONCE .ROUTE ; Start at 11:47; Stop 09/20/17 at 11:48; Status DC Atropine Sulfate 0.5 mg STK-MED ONCE .ROUTE ; Start 09/20/17 at 12:00; Stop at 09:11; Status DC Epinephrine HCl (EPINEPHrine SYRINGE) 1 mg STK-MED ONCE .ROUTE ; Start at 12:00; Stop 09/21/17 at 09:11; Status DC Furosemide (Lasix) 20 mg DAILY IVP ; Start 09/21/17 at 11:15; Stop 09/21/17 at 11:20; Status DC Lorazepam (Ativan) 1 mg PRN Q1HR PRN IV ANXIETY / AGITATION Last administered on 09/23/17 05:49; Start 09/21/17 at 11:15 Albumin Human 250 ml @ 62.5 mls/hr 1X ONCE IV Last administered on 11:57; Start 09/21/17 at 11:30; Stop 09/21/17 at 15:29; Status DC Albumin Human 250 ml @ 62.5 mls/hr 1X ONCE IV Last administered on 14:29; Start 09/21/17 at 11:30; Stop 09/21/17 at 15:29; Status DC Micafungin Sodium 100 mg/Dextrose 100 ml @ 100 mls/hr Q24H IV Last administered on 09/23/17 13:17; Start 09/21/17 at 12:00; Stop 09/24/17 at 08 :35; Status DC Vecuronium [place] (Norcuron Bolus) 4 mg PRN Q4HRS PRN IV AGITATION; Start at 15:00 Dexmedetomidine HCl 200 mcg/ Sodium Chloride 50 ml @ 0 mls/hr CONT PRN IV PER PROTOCOL Last administered on 09/21/17 15:54; Start 09/21/17 at 15:30 Sodium Chloride 500 ml @ 500 mls/hr 1X PRN PRN IV SEE COMMENTS; Start at 15:30 Atropine Sulfate 0.5 mg PRN Q5MIN PRN IV SEE COMMENTS; Start 09/21/17 at 15:30 Propofol 100 ml @ 0 mls/hr CONT PRN IV PER PROTOCOL Last administered on 10:36; Start 09/21/17 at 16:45 Furosemide (Lasix) 20 mg 1X ONCE IVP Last administered on 09/22/17 09:41; Start 09/22/17 at 10:15; Stop 09/22/17 at 10:16; Status DC Chlorhexidine Gluconate (Peridex) 15 ml BID MM Last administered on 09/24/17 21:03; Start 09/22/17 at 21:00 Furosemide (Lasix) 20 mg 1X ONCE IVP Last administered on 09/22/17 17:55; Start 09/22/17 at 18:00; Stop 09/22/17 at 18:01; Status DC Furosemide (Lasix) 20 mg DAILY IVP Last administered on 09/23/17 13:16; Start 09/23/17 at 11:30; Stop 09/24/17 at 08:40; Status DC Methylprednisolone Sodium Succinate (SOLU-Medrol 125MG VIAL) 80 mg Q8HRS IV Last administered on 09/25/17 05:43; Start 09/23/17 at 14:00 Fentanyl Citrate 55 ml @ 0 mls/hr CONT PRN PRN IV PER PROTOCOL Last administered on 09/25/17 02:41; Start 09/23/17 at 12:15 Dextrose 1,000 ml @ 25 mls/hr Q24H IV Last administered on 11/20/17at 21:53; Start 09/23/17 at 11:45 Enoxaparin Sodium (Lovenox Per Pharmacy Prophylaxis Dosing) 1 each PRN DAILY PRN MC SEE COMMENTS; Start 09/23/17 at 16:30; Stop 09/24/17 at 08:41; Status DC Enoxaparin Sodium (Lovenox 40mg Syringe) 40 mg Q24H SQ ; Start 09/23/17 at 17: 00 Bisacodyl (Dulcolax Tab) 5 mg PRN DAILY PRN PO CONSTIPATION; Start 09/24/17 at 09:30 Active Scripts Active Reported Gabapentin 300 Mg Capsule 300 Mg PO TID Cymbalta (Duloxetine Hcl) 60 Mg Capsule. 1 Cap PO BID Hydrochlorothiazide Tablet (Hydrochlorothiazide) 25 Mg Tablet 1 Tab PO DAILY Xanax (Alprazolam) 1 Mg Tablet 1 Tab PO TID PRN Vitals/I & O Vital Sign - Last 24 Hours 09/24/17 09/24/17 09/24/17 09/24/17 12:25 13:00 14:00 14:20 Pulse 64 82 Resp 21 22 B/P (MAP) 104/72 (83) 120/81 (94) Pulse Ox 100 100 100 99 O2 Delivery Ventilator Ventilator Ventilator Ventilator O2 Flow Rate 60.0 60.0 09/24/17 09/24/17 09/24/17 09/24/17 15:00 15:38 16:00 16:00 Temp 98.3 98.3 Pulse 73 74 Resp 22 22 B/P (MAP) 100/63 (75) 110/70 (83) Pulse Ox 100 100 99 O2 Delivery Ventilator Ventilator Mechanical Ventilator Ventilator 09/24/17 09/24/17 09/24/17 09/24/17 17:00 18:00 19:00 19:44 Temp 99.2 99.2 Pulse 68 70 71 Resp 22 22 22 B/P (MAP) 102/68 (79) 104/65 (78) 103/64 (77) Pulse Ox 99 99 99 99 O2 Delivery Ventilator Ventilator Ventilator Ventilator 09/24/17 09/24/17 09/24/17 09/24/17 19:49 20:00 21:00 22:00 Pulse 72 67 70 Resp 22 22 22 B/P (MAP) 100/64 (76) 102/65 (77) 97/65 (76) Pulse Ox 99 99 99 O2 Delivery Mechanical Ventilator Ventilator Ventilator Ventilator 09/24/17 09/24/17 09/24/17 09/25/17 22:10 23:00 23:49 00:00 Temp 99.6 99.6 Pulse 78 70 Resp 22 22 B/P (MAP) 99/62 (74) 99/65 (76) Pulse Ox 99 99 99 99 O2 Delivery Ventilator Ventilator Ventilator Ventilator 09/25/17 09/25/17 09/25/17 09/25/17 00:00 01:00 01:15 02:00 Pulse 68 71 Resp 22 22 B/P (MAP) 99/62 (74) 103/71 (82) Pulse Ox 99 99 98 O2 Delivery Mechanical Ventilator Ventilator Ventilator Ventilator 09/25/17 09/25/17 09/25/17 09/25/17 02:58 03:00 03:11 04:00 Temp 98.2 98.2 Pulse 69 65 Resp 22 22 B/P (MAP) 96/64 (75) 94/62 (73) Pulse Ox 99 100 50 98 O2 Delivery Ventilator Ventilator Ventilator Ventilator 09/25/17 09/25/17 09/25/17 09/25/17 04:00 05:00 05:50 06:00 Pulse 65 74 Resp 22 B/P (MAP) 94/62 (73) 96/64 (75) Pulse Ox 99 99 98 O2 Delivery Mechanical Ventilator Ventilator Ventilator Ventilator 09/25/17 09/25/17 09/25/17 09/25/17 07:00 07:30 08:00 08:00 Temp 99.1 99.1 Pulse 72 82 73 Resp 12 12 16 B/P (MAP) 105/61 (76) 105/61 (76) 93/59 (70) Pulse Ox 97 99 97 O2 Delivery Ventilator Ventilator Mechanical Ventilator Ventilator O2 Flow Rate 09/25/17 09/25/17 09/25/17 09/25/17 08:00 08:30 09:00 10:00 Pulse 78 70 64 Resp 12 16 20 B/P (MAP) 104/66 (79) 103/64 (77) 100/62 (75) Pulse Ox 97 98 98 99 O2 Delivery Ventilator Ventilator Ventilator Ventilator 09/25/17 11:00 Pulse 70 Resp 22 B/P (MAP) 98/62 (74) Pulse Ox 99 O2 Delivery Ventilator Intake and Output 09/24/17 09/24/17 09/25/17 15:00 23:00 07:00 Intake Total 150 ml 1684.41 ml 1525 ml Output Total 575 ml 510 ml 550 ml Balance -425 ml 1174.41 ml 975 ml DENILSON KRISHNAMURTHY III DO Sep 25, 2017 12:29
--- NOTE | 2017-09-25 15:23 | PDOC ---
PULMONARY PROGRESS NOTES Subjective AC mode, intubated 09/19, sedated Vitals Vital Signs Date Time Temp Pulse Resp B/P (MAP) Pulse Ox O2 Delivery O2 Flow Rate FiO2 09/25/17 15:00 72 20 92/62 (72) 98 Ventilator 09/25/17 13:00 99.2 99.2 09/25/17 08:00 Lungs: Clear, Other (no wheezes or crackles ) Cardiovascular: S1, S2 Abdomen: Soft Extremities: No Edema Skin: Warm Labs Laboratory Tests Test 09/24/17 05:30 09/24/17 07:45 09/25/17 08:00 09/25/17 11:50 White Blood Count 13.6 x10^3/uL (4.0-11.0) 11.8 x10^3/uL (4.0-11.0) Red Blood Count 3.57 x10^6/uL (3.50-5.40) 3.72 x10^6/uL (3.50-5.40) Hemoglobin 8.7 g/dL (12.0-15.5) 9.3 g/dL (12.0-15.5) Hematocrit 29.3 % (36.0-47.0) 31.0 % (36.0-47.0) Mean Corpuscular Volume 82 fL (79-100) 83 fL (79-100) Mean Corpuscular Hemoglobin 24 pg (25-35) 25 pg (25-35) Mean Corpuscular Hemoglobin Concent 30 g/dL (31-37) 30 g/dL (31-37) Red Cell Distribution Width 25.8 % (11.5-14.5) 27.6 % (11.5-14.5) Platelet Count 247 x10^3/uL (140-400) 251 x10^3/uL (140-400) Neutrophils (%) (Auto) 94 % (31-73) Lymphocytes (%) (Auto) 2 % (24-48) Monocytes (%) (Auto) 4 % (0-9) Eosinophils (%) (Auto) 0 % (0-3) Basophils (%) (Auto) 0 % (0-3) Neutrophils # (Auto) 12.8 x10^3uL (1.8-7.7) Lymphocytes # (Auto) 0.3 x10^3/uL (1.0-4.8) Monocytes # (Auto) 0.5 x10^3/uL (0.0-1.1) Eosinophils # (Auto) 0.0 x10^3/uL (0.0-0.7) Basophils # (Auto) 0.0 x10^3/uL (0.0-0.2) Sodium Level 147 mmol/L (136-145) 148 mmol/L (136-145) Potassium Level 3.7 mmol/L (3.5-5.1) 4.2 mmol/L (3.5-5.1) Chloride Level 113 mmol/L (98-107) 115 mmol/L (98-107) Carbon Dioxide Level 26 mmol/L (21-32) 27 mmol/L (21-32) Anion Gap 8 (6-14) 6 (6-14) Blood Urea Nitrogen 55 mg/dL (7-20) 56 mg/dL (7-20) Creatinine 1.5 mg/dL (0.6-1.0) 1.3 mg/dL (0.6-1.0) Estimated GFR (Cockcroft-Gault) 35.4 41.8 BUN/Creatinine Ratio 37 (6-20) Glucose Level 230 mg/dL (70-99) 206 mg/dL (70-99) Calcium Level 8.5 mg/dL (8.5-10.1) 8.4 mg/dL (8.5-10.1) Total Bilirubin 0.5 mg/dL (0.2-1.0) Aspartate Amino Transf (AST/SGOT) 31 U/L (15-37) Alanine Aminotransferase (ALT/SGPT) 101 U/L (14-59) Alkaline Phosphatase 62 U/L (46-116) Total Protein 5.2 g/dL (6.4-8.2) Albumin 2.4 g/dL (3.4-5.0) Albumin/Globulin Ratio 0.9 (1.0-1.7) O2 Saturation 98 % (92-99) 96 % (92-99) Arterial Blood pH 7.41 (7.35-7.45) 7.43 (7.35-7.45) Arterial Blood pCO2 at Patient Temp 36 mmHg (35-46) 36 mmHg (35-46) Arterial Blood pO2 at Patient Temp 108 mmHg (65-108) 83 mmHg (65-108) Arterial Blood HCO3 22 mmol/L (21-28) 23 mmol/L (21-28) Arterial Blood Base Excess -2 mmol/L (-3-3) -1 mmol/L (-3-3) FiO2 50 50 Magnesium Level 2.7 mg/dL (1.8-2.4) Laboratory Tests Test 09/25/17 08:00 09/25/17 11:50 O2 Saturation 96 % (92-99) Arterial Blood pH 7.43 (7.35-7.45) Arterial Blood pCO2 at Patient Temp 36 mmHg (35-46) Arterial Blood pO2 at Patient Temp 83 mmHg (65-108) Arterial Blood HCO3 23 mmol/L (21-28) Arterial Blood Base Excess -1 mmol/L (-3-3) FiO2 50 White Blood Count 11.8 x10^3/uL (4.0-11.0) Red Blood Count 3.72 x10^6/uL (3.50-5.40) Hemoglobin 9.3 g/dL (12.0-15.5) Hematocrit 31.0 % (36.0-47.0) Mean Corpuscular Volume 83 fL (79-100) Mean Corpuscular Hemoglobin 25 pg (25-35) Mean Corpuscular Hemoglobin Concent 30 g/dL (31-37) Red Cell Distribution Width 27.6 % (11.5-14.5) Platelet Count 251 x10^3/uL (140-400) Sodium Level 148 mmol/L (136-145) Potassium Level 4.2 mmol/L (3.5-5.1) Chloride Level 115 mmol/L (98-107) Carbon Dioxide Level 27 mmol/L (21-32) Anion Gap 6 (6-14) Blood Urea Nitrogen 56 mg/dL (7-20) Creatinine 1.3 mg/dL (0.6-1.0) Estimated GFR (Cockcroft-Gault) 41.8 Glucose Level 206 mg/dL (70-99) Calcium Level 8.4 mg/dL (8.5-10.1) Magnesium Level 2.7 mg/dL (1.8-2.4) Medications Active Scripts Medications Dose Route/Sig Max Daily Dose Days Date Category Gabapentin 300 Mg Capsule 300 Mg PO TID 09/18/17 Reported Cymbalta (Duloxetine Hcl) 60 Mg Capsule. 1 Cap PO BID 09/18/17 Reported Hydrochlorothiazide Tablet (Hydrochlorothiazide) 25 Mg Tablet 1 Tab PO DAILY 09/17/17 Reported Xanax (Alprazolam) 1 Mg Tablet 1 Tab PO TID PRN 09/17/17 Reported Comments CXR REVIEWED NO CHANGE Impression . 1. Acute hypoxic respiratory failure/ARDS 2. Anemia 3. COPD 4. Acute renal failure 5. Sepsis with hypotension 6. S/P Bronch so far BAL negative Plan . CXR ABOUT THE SAME DECREASE PEEP D/W RT, pAO2 TODAY IS ADEQUATE WILL PROCEED WITH SEDATION EMIL 1. SEDATE 2. AC mode 3. ANTIBX PER ID Influenza screen neg. Micafungin added for budding yeast on BAL. 4. CT chest with diffuse parenchymal GG infiltrates 5. FOLLOW NEPHRO INPUT 6. Hematology following for workup of anemia. 7. TUBE FEED 8. ON STEROIDS 9. TX PRBC prn CCT 30 MIN RAKEL MCKENNA MD Sep 25, 2017 15:23
[2017-09-25 16:18] LABS: C ANCA <1:20 titer (Neg:<1:20)
--- NOTE | 2017-09-25 16:37 | PDOC ---
PROGRESS NOTES Subjective Subjective HPI - Iron deficiency anemia ROS - on vent Objective Objective Vital Signs Date Time Temp Pulse Resp B/P (MAP) Pulse Ox O2 Delivery O2 Flow Rate FiO2 09/25/17 16:00 62 24 90/57 (68) 100 Ventilator 09/25/17 13:00 99.2 99.2 09/25/17 08:00 Intake and Output 09/25/17 07:00 Intake Total 3359.41 ml Output Total 1635 ml Balance 1724.41 ml IV Total 1281.41 ml Tube Feeding 1853 ml Other 225 ml Output Urine Total 1635 ml Gastric Drainage Total 0 ml Physical Exam Heart: Normal S1, Normal S2 Lungs: Clear to auscultation Assessment Assessment Problems Medical Problems: (1) Dyspnea Status: Acute (2) Hypoalbuminemia Status: Acute (3) Metabolic acidosis Status: Acute (4) Pneumonia Status: Acute IMPRESSION AND PLAN: 1. Iron deficiency anemia. There is no evidence of blood loss. She received Venofer 500 mg intravenous on 09/18/2017. I will continue to monitor hemoglobin and transfuse as needed. Hemoglobin improved to 7.7 after transfusion. Then worse at 6.6 on 09/19/17. s/p 1 unit 09/19/17. Hb 7.9 on 09/20/17 Improved to 9.3 2. Leukocytosis, reactive from underlying pneumonia. Management per Pulmonary Medicine. WBC 11.8 3. Pneumonia/dyspnea - I appreciate consultation by Dr. Adan Thurman. Intubated 09/19/17. Comment Review of Relevant I have reviewed the following items tha (where applicable) has been applied. Labs Laboratory Tests Test 09/24/17 05:30 09/24/17 07:45 09/25/17 08:00 09/25/17 11:50 White Blood Count 13.6 x10^3/uL (4.0-11.0) 11.8 x10^3/uL (4.0-11.0) Red Blood Count 3.57 x10^6/uL (3.50-5.40) 3.72 x10^6/uL (3.50-5.40) Hemoglobin 8.7 g/dL (12.0-15.5) 9.3 g/dL (12.0-15.5) Hematocrit 29.3 % (36.0-47.0) 31.0 % (36.0-47.0) Mean Corpuscular Volume 82 fL (79-100) 83 fL (79-100) Mean Corpuscular Hemoglobin 24 pg (25-35) 25 pg (25-35) Mean Corpuscular Hemoglobin Concent 30 g/dL (31-37) 30 g/dL (31-37) Red Cell Distribution Width 25.8 % (11.5-14.5) 27.6 % (11.5-14.5) Platelet Count 247 x10^3/uL (140-400) 251 x10^3/uL (140-400) Neutrophils (%) (Auto) 94 % (31-73) Lymphocytes (%) (Auto) 2 % (24-48) Monocytes (%) (Auto) 4 % (0-9) Eosinophils (%) (Auto) 0 % (0-3) Basophils (%) (Auto) 0 % (0-3) Neutrophils # (Auto) 12.8 x10^3uL (1.8-7.7) Lymphocytes # (Auto) 0.3 x10^3/uL (1.0-4.8) Monocytes # (Auto) 0.5 x10^3/uL (0.0-1.1) Eosinophils # (Auto) 0.0 x10^3/uL (0.0-0.7) Basophils # (Auto) 0.0 x10^3/uL (0.0-0.2) Sodium Level 147 mmol/L (136-145) 148 mmol/L (136-145) Potassium Level 3.7 mmol/L (3.5-5.1) 4.2 mmol/L (3.5-5.1) Chloride Level 113 mmol/L (98-107) 115 mmol/L (98-107) Carbon Dioxide Level 26 mmol/L (21-32) 27 mmol/L (21-32) Anion Gap 8 (6-14) 6 (6-14) Blood Urea Nitrogen 55 mg/dL (7-20) 56 mg/dL (7-20) Creatinine 1.5 mg/dL (0.6-1.0) 1.3 mg/dL (0.6-1.0) Estimated GFR (Cockcroft-Gault) 35.4 41.8 BUN/Creatinine Ratio 37 (6-20) Glucose Level 230 mg/dL (70-99) 206 mg/dL (70-99) Calcium Level 8.5 mg/dL (8.5-10.1) 8.4 mg/dL (8.5-10.1) Total Bilirubin 0.5 mg/dL (0.2-1.0) Aspartate Amino Transf (AST/SGOT) 31 U/L (15-37) Alanine Aminotransferase (ALT/SGPT) 101 U/L (14-59) Alkaline Phosphatase 62 U/L (46-116) Total Protein 5.2 g/dL (6.4-8.2) Albumin 2.4 g/dL (3.4-5.0) Albumin/Globulin Ratio 0.9 (1.0-1.7) O2 Saturation 98 % (92-99) 96 % (92-99) Arterial Blood pH 7.41 (7.35-7.45) 7.43 (7.35-7.45) Arterial Blood pCO2 at Patient Temp 36 mmHg (35-46) 36 mmHg (35-46) Arterial Blood pO2 at Patient Temp 108 mmHg (65-108) 83 mmHg (65-108) Arterial Blood HCO3 22 mmol/L (21-28) 23 mmol/L (21-28) Arterial Blood Base Excess -2 mmol/L (-3-3) -1 mmol/L (-3-3) FiO2 50 50 Magnesium Level 2.7 mg/dL (1.8-2.4) Laboratory Tests Test 09/25/17 08:00 09/25/17 11:50 O2 Saturation 96 % (92-99) Arterial Blood pH 7.43 (7.35-7.45) Arterial Blood pCO2 at Patient Temp 36 mmHg (35-46) Arterial Blood pO2 at Patient Temp 83 mmHg (65-108) Arterial Blood HCO3 23 mmol/L (21-28) Arterial Blood Base Excess -1 mmol/L (-3-3) FiO2 50 White Blood Count 11.8 x10^3/uL (4.0-11.0) Red Blood Count 3.72 x10^6/uL (3.50-5.40) Hemoglobin 9.3 g/dL (12.0-15.5) Hematocrit 31.0 % (36.0-47.0) Mean Corpuscular Volume 83 fL (79-100) Mean Corpuscular Hemoglobin 25 pg (25-35) Mean Corpuscular Hemoglobin Concent 30 g/dL (31-37) Red Cell Distribution Width 27.6 % (11.5-14.5) Platelet Count 251 x10^3/uL (140-400) Sodium Level 148 mmol/L (136-145) Potassium Level 4.2 mmol/L (3.5-5.1) Chloride Level 115 mmol/L (98-107) Carbon Dioxide Level 27 mmol/L (21-32) Anion Gap 6 (6-14) Blood Urea Nitrogen 56 mg/dL (7-20) Creatinine 1.3 mg/dL (0.6-1.0) Estimated GFR (Cockcroft-Gault) 41.8 Glucose Level 206 mg/dL (70-99) Calcium Level 8.4 mg/dL (8.5-10.1) Magnesium Level 2.7 mg/dL (1.8-2.4) Microbiology 09/17/17 Blood Culture - Final, Complete NO GROWTH AFTER 5 DAYS 09/20/17 AFB Specimen Processing Tissue - Final, Resulted 09/20/17 Acid Fast Bacilli Culture, Resulted Pending 09/20/17 Gram Stain - Final, Resulted 09/20/17 Fungal Culture, Resulted Pending 09/20/17 Fungal Culture Result 1, Resulted Pending Medications Current Medications Sodium Chloride 1,000 ml @ 125 mls/hr 1X ONCE IV Last administered on 15:54; Start 09/17/17 at 15:15; Stop 09/17/17 at 23:14; Status DC Ondansetron HCl (Zofran) 4 mg PRN Q8HRS PRN IV NAUSEA/VOMITING; Start at 16:30; Stop 09/18/17 at 16:29; Status DC Ceftriaxone Sodium 50 ml @ 0 mls/hr 1X ONCE IV Last administered on 17:33; Start 09/17/17 at 16:45; Stop 09/17/17 at 16:46; Status DC Azithromycin 250 ml @ 250 mls/hr 1X ONCE IV Last administered on 09/17/17 22:38; Start 09/17/17 at 16:30; Stop 09/17/17 at 17:29; Status DC Albuterol/ Ipratropium (Duoneb) 3 ml 1X ONCE NEB Last administered on 17:00; Start 09/17/17 at 16:45; Stop 09/17/17 at 16:46; Status DC Potassium Chloride (Klor-Con) 40 meq 1X ONCE PO Last administered on 16:57; Start 09/17/17 at 16:45; Stop 09/17/17 at 16:46; Status DC Azithromycin (Zithromax) 250 mg DAILY PO Last administered on 09/18/17 10:25 ; Start 09/18/17 at 09:00; Stop 09/19/17 at 10:30; Status DC Ceftriaxone Sodium 1 gm/ Dextrose 50 ml @ 100 mls/hr Q24H IV ; Start 09/17/17 at 17:15; Status UNV Albuterol/ Ipratropium (Duoneb) 3 ml Q4HRS NEB Last administered on 09/25/17 15:42; Start 09/17/17 at 20:00 Ceftriaxone Sodium (Rocephin) 1 gm Q24H IVP Last administered on 09/18/17 17: 55; Start 09/18/17 at 16:00; Stop 09/19/17 at 10:30; Status DC Guaifenesin (Robitussin Dm) 10 ml PRN Q6HRS PRN PO COUGH; Start 09/17/17 at 17 :15 Sodium Chloride 1,000 ml @ 125 mls/hr 1X ONCE IV Last administered on 17:45; Start 09/17/17 at 17:15; Stop 09/17/17 at 22:12; Status DC Info (Do NOT chart on this placeholder) 1 each 1X ONCE MC ; Start 09/17/17 at 19:00; Stop 09/17/17 at 19:01; Status UNV Influenza Virus Vaccine Quadrival (Fluarix Quad [id number] Syringe) 0.5 ml ONCE ONCE VAX IM ; Start 09/17/17 at 21:00; Stop 09/17/17 at 21:01; Status DC Sodium Chloride 1,000 ml @ 130 mls/hr 1X ONCE IV Last administered on 22:31; Start 09/17/17 at 22:30; Stop 09/18/17 at 06:11; Status DC Sodium Bicarbonate 50 meq 1X ONCE IV Last administered on 09/17/17 22:31; Start 09/17/17 at 22:30; Stop 09/17/17 at 22:31; Status DC Alprazolam (Xanax) 1 mg PRN TID PRN PO ANXIETY Last administered on 09/19/17 02:19; Start 09/17/17 at 22:30 Furosemide (Lasix) 20 mg 1X ONCE IVP Last administered on 09/18/17 06:24; Start 09/18/17 at 06:30; Stop 09/18/17 at 06:31; Status DC Potassium Chloride (Klor-Con) 40 meq 1X ONCE PO Last administered on 10:25; Start 09/18/17 at 09:00; Stop 09/18/17 at 09:01; Status DC Iron Sucrose 500 mg/Sodium Chloride 275 ml @ 78.571 mls/ hr 1X ONCE IV Last administered on 09/18/17 10:24; Start 09/18/17 at 09:00; Stop 09/18/17 at 12 :29; Status DC Furosemide (Lasix) 20 mg 1X ONCE IVP Last administered on 09/18/17 10:30; Start 09/18/17 at 10:00; Stop 09/18/17 at 10:22; Status DC Pantoprazole Sodium (Protonix) 40 mg DAILYAC PO Last administered on 10:47; Start 09/18/17 at 11:00; Stop 09/19/17 at 13:41; Status DC Furosemide (Lasix) 20 mg 1X ONCE IVP Last administered on 09/18/17 10:47; Start 09/18/17 at 10:45; Stop 09/18/17 at 10:46; Status DC Potassium Chloride (Klor-Con) 40 meq 1X ONCE PO ; Start 09/18/17 at 11:45; Stop 09/18/17 at 11:46; Status DC Oxycodone/ Acetaminophen (Percocet 5/325) 1 tab PRN Q6HRS PRN PO PAIN Last administered on 09/18/17 13:23; Start 09/18/17 at 12:15 Lorazepam (Ativan) 1 mg PRN Q4HRS PRN IV ANXIETY / AGITATION Last administered on 09/18/17 12:25; Start 09/18/17 at 12:15; Stop 09/18/17 at 13:34; Status DC Fentanyl Citrate (Fentanyl 2ml Vial) 50 mcg PRN Q2HR PRN IV PAIN Last administered on 09/19/17 04:09; Start 09/18/17 at 12:15 Lorazepam (Ativan) 2 mg PRN Q4HRS PRN IV ANXIETY / AGITATION Last administered on 09/23/17 14:29; Start 09/18/17 at 13:30 Quetiapine Fumarate (SEROquel) 25 mg HS PO Last administered on 09/18/17 21: 03; Start 09/18/17 at 21:00; Stop 09/19/17 at 10:35; Status DC Haloperidol Lactate (Haldol) 5 mg PRN Q12HRS PRN IVP AGITATION; Start at 13:45 Lorazepam (Ativan) 1 mg PRN Q4HRS PRN IV ANXIETY / AGITATION; Start 09/19/17 at 10:15; Stop 09/19/17 at 10:18; Status DC Lorazepam (Ativan) 4 mg 1X ONCE IV ; Start 09/19/17 at 10:30; Stop 09/19/17 at 10:31; Status DC Vancomycin HCl (Vanco Per Pharmacy) 1 each PRN DAILY PRN MC SEE COMMENTS Last administered on 09/23/17 12:36; Start 09/19/17 at 10:30; Stop 09/24/17 at 08 :36; Status DC Piperacillin Sod/ Tazobactam Sod (Zosyn Per Pharmacy) 1 each PRN DAILY PRN MC SEE COMMENTS; Start 09/19/17 at 10:30; Stop 09/24/17 at 08:41; Status DC Vancomycin HCl 2 gm/Dextrose 500 ml @ 250 mls/hr 1X ONCE IV Last administered on 09/19/17 14:53; Start 09/19/17 at 11:00; Stop 09/19/17 at 12 :59; Status DC Piperacillin Sod/ Tazobactam Sod (Zosyn) 3.375 gm Q6HRS IVP Last administered on 09/25/17 11:49; Start 09/19/17 at 11:00 Budesonide (Pulmicort) 0.5 mg RTBID NEB Last administered on 09/25/17 08:29; Start 09/19/17 at 20:00 Budesonide (Pulmicort) 0.5 mg 1X ONCE NEB Last administered on 09/19/17 12: 50; Start 09/19/17 at 10:45; Stop 09/19/17 at 10:46; Status DC Pantoprazole Sodium (Protonix Vial) 40 mg DAILYAC IVP Last administered on 09:32; Start 09/19/17 at 11:30 Furosemide (Lasix) 40 mg DAILY IVP ; Start 09/19/17 at 11:00; Stop 09/20/17 at 13:20; Status DC Methylprednisolone Sodium Succinate (SOLU-Medrol 125MG VIAL) 125 mg 1X ONCE IV Last administered on 09/19/17 13:23; Start 09/19/17 at 10:45; Stop at 10:46; Status DC Prednisone (Prednisone) 40 mg DAILY PO ; Start 09/19/17 at 11:00; Stop at 09:02; Status DC Methylprednisolone Sodium Succinate (SOLU-Medrol 125MG VIAL) 125 mg Q8HRS IV Last administered on 09/23/17 05:43; Start 09/19/17 at 14:00; Stop 09/23/17 at 10:40; Status DC Midazolam HCl 100 ml @ 0 mls/hr CONT PRN IV SEE I/O RECORD; Start 09/19/17 at 11:00; Stop 09/19/17 at 12:51; Status DC Midazolam HCl (Versed) 5 mg 1X ONCE IV ; Start 09/19/17 at 11:00; Stop at 11:01; Status DC Fentanyl Citrate (Fentanyl 2ml Vial) 50 mcg 1X ONCE IV ; Start 09/19/17 at 11: 00; Stop 09/19/17 at 11:01; Status DC Midazolam HCl 100 ml @ As Directed STK-MED ONCE IV ; Start 09/19/17 at 10:55; Stop 09/19/17 at 10:56; Status DC Midazolam HCl (Versed) 5 mg STK-MED ONCE .ROUTE ; Start 09/19/17 at 10:55; Stop 09/19/17 at 10:56; Status DC Propofol 100 ml @ As Directed STK-MED ONCE IV ; Start 09/19/17 at 10:59; Stop 09/19/17 at 11:00; Status DC Norepinephrine Bitartrate 250 ml @ As Directed STK-MED ONCE IV ; Start at 10:59; Stop 09/19/17 at 11:00; Status DC Furosemide (Lasix) 20 mg 1X ONCE IVP ; Start 09/19/17 at 11:15; Stop at 11:16; Status DC Vecuronium Helotes (Norcuron Bolus) 10 mg STK-MED ONCE IV ; Start 09/19/17 at 11:21; Stop 09/19/17 at 11:22; Status DC Fentanyl Citrate 30 ml @ 0 mls/hr CONT PRN IV PROTOCOL Last administered on 15:08; Start 09/19/17 at 11:30; Stop 09/23/17 at 15:24; Status DC Vecuronium Helotes (Norcuron Bolus) 6 mg 1X ONCE IV Last administered on 09/19 11:42; Start 09/19/17 at 11:30; Stop 09/19/17 at 11:39; Status DC Propofol 10 ml @ 0 mls/hr 1X ONCE IV Last administered on 09/19/17 11:30; Start 09/19/17 at 11:30; Stop 09/19/17 at 11:39; Status DC Midazolam HCl 100 ml @ 0 mls/hr CONT PRN IV SEE I/O RECORD Last administered on 09/25/17 10:35; Start 09/19/17 at 11:30 Norepinephrine Bitartrate 250 ml @ 0 mls/hr CONT PRN IV SEE I/O RECORD Last administered on 09/24/17 05:18; Start 09/19/17 at 11:30 Succinylcholine Chloride (Anectine) 100 mg 1X ONCE IV Last administered on 11:42; Start 09/19/17 at 11:30; Stop 09/19/17 at 11:39; Status DC Sodium Bicarbonate 50 meq 1X ONCE IV Last administered on 09/19/17 13:23; Start 09/19/17 at 12:45; Stop 09/19/17 at 12:46; Status DC Sodium Bicarbonate 50 meq 1X ONCE IV Last administered on 09/19/17 13:23; Start 09/19/17 at 12:45; Stop 09/19/17 at 12:46; Status DC Lidocaine/Sodium Bicarbonate (Buffered Lidocaine 1%) 20 ml STK-MED ONCE IJ ; Start 09/19/17 at 13:34; Stop 09/19/17 at 13:35; Status DC Vecuronium Helotes (Norcuron Bolus) 10 mg 1X ONCE IV Last administered on 15:05; Start 09/19/17 at 14:00; Stop 09/19/17 at 14:02; Status DC Lidocaine/Sodium Bicarbonate (Buffered Lidocaine 1%) 3 ml 1X ONCE IJ ; Start 09/19/17 at 14:45; Stop 09/19/17 at 14:46; Status DC Vancomycin HCl 1.25 gm/Dextrose 250 ml @ 166.667 mls/hr Q24H IV Last administered on 09/23/17 17:19; Start 09/20/17 at 15:00; Stop 09/24/17 at 08 :35; Status DC Vancomycin HCl 1 each 1X ONCE MC Last administered on 09/21/17 14:30; Start 09/21/17 at 14:30; Stop 09/21/17 at 14:31; Status DC Azithromycin 500 mg/Sodium Chloride 250 ml @ 250 mls/hr Q24H IV Last administered on 09/23/17 17:19; Start 09/19/17 at 16:30; Stop 09/24/17 at 08 :35; Status DC Norepinephrine Bitartrate (Levophed 8mg/ 250ml Premix Drip) 8 mg STK-MED ONCE IV ; Start 09/19/17 at 11:00; Stop 09/20/17 at 08:44; Status DC Midazolam HCl (Versed) 5 mg STK-MED ONCE .ROUTE ; Start 09/19/17 at 11:00; Stop 09/20/17 at 08:44; Status DC Amino Acids/ Glycerin/ Electrolytes 1,000 ml @ 80 mls/hr [id number] IV Last administered on 09/21/17 01:21; Start 09/20/17 at 10:00; Stop 09/22/17 at 07 :02; Status DC Info 1 each PRN DAILY PRN MC SEE COMMENTS; Start 09/20/17 at 10:00; Stop at 12:14; Status DC Furosemide (Lasix) 20 mg 1X ONCE IVP Last administered on 09/20/17 10:21; Start 09/20/17 at 10:15; Stop 09/20/17 at 10:18; Status DC Info 1 each PRN DAILY PRN MC SEE COMMENTS; Start 09/20/17 at 11:00; Status UNV Vecuronium Helotes (Norcuron Bolus) 10 mg 1X ONCE IV Last administered on 12:03; Start 09/20/17 at 11:15; Stop 09/20/17 at 11:24; Status DC Atropine Sulfate 0.5 mg STK-MED ONCE .ROUTE ; Start 09/20/17 at 11:47; Stop at 11:48; Status DC Epinephrine HCl (EPINEPHrine SYRINGE) 1 mg STK-MED ONCE .ROUTE ; Start at 11:47; Stop 09/20/17 at 11:48; Status DC Atropine Sulfate 0.5 mg STK-MED ONCE .ROUTE ; Start 09/20/17 at 12:00; Stop at 09:11; Status DC Epinephrine HCl (EPINEPHrine SYRINGE) 1 mg STK-MED ONCE .ROUTE ; Start at 12:00; Stop 09/21/17 at 09:11; Status DC Furosemide (Lasix) 20 mg DAILY IVP ; Start 09/21/17 at 11:15; Stop 09/21/17 at 11:20; Status DC Lorazepam (Ativan) 1 mg PRN Q1HR PRN IV ANXIETY / AGITATION Last administered on 09/23/17 05:49; Start 09/21/17 at 11:15 Albumin Human 250 ml @ 62.5 mls/hr 1X ONCE IV Last administered on 11:57; Start 09/21/17 at 11:30; Stop 09/21/17 at 15:29; Status DC Albumin Human 250 ml @ 62.5 mls/hr 1X ONCE IV Last administered on 14:29; Start 09/21/17 at 11:30; Stop 09/21/17 at 15:29; Status DC Micafungin Sodium 100 mg/Dextrose 100 ml @ 100 mls/hr Q24H IV Last administered on 09/23/17 13:17; Start 09/21/17 at 12:00; Stop 09/24/17 at 08 :35; Status DC Vecuronium Helotes (Norcuron Bolus) 4 mg PRN Q4HRS PRN IV AGITATION; Start at 15:00 Dexmedetomidine HCl 200 mcg/ Sodium Chloride 50 ml @ 0 mls/hr CONT PRN IV PER PROTOCOL Last administered on 09/21/17 15:54; Start 09/21/17 at 15:30 Sodium Chloride 500 ml @ 500 mls/hr 1X PRN PRN IV SEE COMMENTS; Start at 15:30 Atropine Sulfate 0.5 mg PRN Q5MIN PRN IV SEE COMMENTS; Start 09/21/17 at 15:30 Propofol 100 ml @ 0 mls/hr CONT PRN IV PER PROTOCOL Last administered on 10:36; Start 09/21/17 at 16:45 Furosemide (Lasix) 20 mg 1X ONCE IVP Last administered on 09/22/17 09:41; Start 09/22/17 at 10:15; Stop 09/22/17 at 10:16; Status DC Chlorhexidine Gluconate (Peridex) 15 ml BID MM Last administered on 09/25/17 09:00; Start 09/22/17 at 21:00 Furosemide (Lasix) 20 mg 1X ONCE IVP Last administered on 09/22/17 17:55; Start 09/22/17 at 18:00; Stop 09/22/17 at 18:01; Status DC Furosemide (Lasix) 20 mg DAILY IVP Last administered on 09/23/17 13:16; Start 09/23/17 at 11:30; Stop 09/24/17 at 08:40; Status DC Methylprednisolone Sodium Succinate (SOLU-Medrol 125MG VIAL) 80 mg Q8HRS IV Last administered on 09/25/17 14:08; Start 09/23/17 at 14:00 Fentanyl Citrate 55 ml @ 0 mls/hr CONT PRN PRN IV PER PROTOCOL Last administered on 09/25/17 02:41; Start 09/23/17 at 12:15 Dextrose 1,000 ml @ 25 mls/hr Q24H IV Last administered on 09/24/17 21:53; Start 09/23/17 at 11:45 Enoxaparin Sodium (Lovenox Per Pharmacy Prophylaxis Dosing) 1 each PRN DAILY PRN MC SEE COMMENTS; Start 09/23/17 at 16:30; Stop 09/24/17 at 08:41; Status DC Enoxaparin Sodium (Lovenox 40mg Syringe) 40 mg Q24H SQ ; Start 09/23/17 at 17: 00 Bisacodyl (Dulcolax Tab) 5 mg PRN DAILY PRN PO CONSTIPATION; Start 09/24/17 at 09:30 Insulin Aspart (NovoLOG) 0-5 UNITS Q6HRS SQ ; Start 09/25/17 at 18:00 Dextrose (Dextrose 50%-Water Syringe) 12.5 gm PRN Q15MIN PRN IV SEE COMMENTS; Start 09/25/17 at 12:30 Active Scripts Active Reported Gabapentin 300 Mg Capsule 300 Mg PO TID Cymbalta (Duloxetine Hcl) 60 Mg Capsule. 1 Cap PO BID Hydrochlorothiazide Tablet (Hydrochlorothiazide) 25 Mg Tablet 1 Tab PO DAILY Xanax (Alprazolam) 1 Mg Tablet 1 Tab PO TID PRN Vitals/I & O Vital Sign - Last 24 Hours 09/24/17 09/24/17 09/24/17 09/24/17 17:00 18:00 19:00 19:44 Temp 99.2 99.2 Pulse 68 70 71 Resp 22 22 22 B/P (MAP) 102/68 (79) 104/65 (78) 103/64 (77) Pulse Ox 99 99 99 99 O2 Delivery Ventilator Ventilator Ventilator Ventilator 09/24/17 09/24/17 09/24/17 09/24/17 19:49 20:00 21:00 22:00 Pulse 72 67 70 Resp 22 22 22 B/P (MAP) 100/64 (76) 102/65 (77) 97/65 (76) Pulse Ox 99 99 99 O2 Delivery Mechanical Ventilator Ventilator Ventilator Ventilator 09/24/17 09/24/17 09/24/17 09/25/17 22:10 23:00 23:49 00:00 Temp 99.6 99.6 Pulse 78 70 Resp 22 22 B/P (MAP) 99/62 (74) 99/65 (76) Pulse Ox 99 99 99 99 O2 Delivery Ventilator Ventilator Ventilator Ventilator 09/25/17 09/25/17 09/25/1717 00:00 01:00 01:15 02:00 Pulse 68 71 Resp 22 22 B/P (MAP) 99/62 (74) 103/71 (82) Pulse Ox 99 99 98 O2 Delivery Mechanical Ventilator Ventilator Ventilator Ventilator 09/25/17 09/25/17 09/25/17 09/25/17 02:58 03:00 03:11 04:00 Temp 98.2 98.2 Pulse 69 65 Resp 22 22 22 B/P (MAP) 96/64 (75) 94/62 (73) Pulse Ox 99 100 50 98 O2 Delivery Ventilator Ventilator Ventilator Ventilator 09/25/17 09/25/17 09/25/17 09/25/17 04:00 05:00 05:50 06:00 Pulse 65 74 Resp 22 B/P (MAP) 94/62 (73) 96/64 (75) Pulse Ox 99 99 98 O2 Delivery Mechanical Ventilator Ventilator Ventilator Ventilator 09/25/17 09/25/17 09/25/17 09/25/17 07:00 07:30 08:00 08:00 Temp 99.1 99.1 Pulse 72 82 73 Resp 12 12 16 B/P (MAP) 105/61 (76) 105/61 (76) 93/59 (70) Pulse Ox 97 99 97 O2 Delivery Ventilator Ventilator Mechanical Ventilator Ventilator O2 Flow Rate 09/25/17 09/25/17 09/25/17 09/25/17 08:00 08:30 09:00 10:00 Pulse 78 70 Resp 12 16 B/P (MAP) 104/66 (79) 103/64 (77) Pulse Ox 97 98 98 99 O2 Delivery Ventilator Ventilator Ventilator Ventilator 09/25/17 09/25/17 09/25/17 09/25/17 10:00 11:00 12:00 12:00 Pulse 64 70 63 Resp 20 22 24 B/P (MAP) 100/62 (75) 98/62 (74) 121/79 (93) Pulse Ox 99 99 100 O2 Delivery Ventilator Ventilator Ventilator Mechanical Ventilator 09/25/17 09/25/17 09/25/17 09/25/17 12:37 13:00 14:00 15:00 Temp 99.2 99.2 Pulse 77 73 72 Resp 26 20 20 B/P (MAP) 112/69 (83) 102/61 (75) 92/62 (72) Pulse Ox 98 100 98 98 O2 Delivery Ventilator Ventilator Ventilator 09/25/17 09/25/17 09/25/17 15:42 16:00 16:00 Pulse 62 Resp 24 B/P (MAP) 90/57 (68) Pulse Ox 98 100 O2 Delivery Ventilator Mechanical Ventilator Ventilator Intake and Output 09/24/17 09/24/17 09/25/17 15:00 23:00 07:00 Intake Total 150 ml 1684.41 ml 1525 ml Output Total 575 ml 510 ml 550 ml Balance -425 ml 1174.41 ml 975 ml ELLA ORTEGA MD Sep 25, 2017 16:37
[2017-09-25] MEDS: ENOXAPARIN 40 MG/0.4 ML SYRINGE. SQ SCH (16:54)
[2017-09-25] MEDS: INSULIN ASPART 300 UNITS/3 ML INSULN.PEN SQ SCH (17:32)
[2017-09-26] VITALS (24 sets, daily range): BP systolic 91–150; BP diastolic 55–94
[2017-09-26] MEDS: PIPERACILLIN/TAZO IV Push 3.375 GM VIAL. IVP SCH ×5 (00:15→23:50)
[2017-09-26] MEDS: INSULIN ASPART 300 UNITS/3 ML INSULN.PEN SQ SCH ×5 (00:17→23:53)
[2017-09-26] MEDS: IPRATRPIUM/ALBUTEROL 0.5/2.5MG 3 ML NEBU. NEB SCH ×6 (03:53→23:11)
[2017-09-26] MEDS: methylPREDNISolone SOD SUCC PF 125 MG/2 ML VIAL. IV SCH ×3 (05:30→21:32)
[2017-09-26 06:13] LABS: BASO % 0 % (0-3); EOS % 0 % (0-3); HEMATOCRIT 34.6 % (36.0-47.0); HEMOGLOBIN 10.3 g/dL (12.0-15.5); LYMPH # 0.4 x10^3/uL (1.0-4.8); LYMPH % 3 % (24-48); MEAN CORPUSCULAR HEMOGLOBIN 25 pg (25-35); MEAN CORPUSCULAR HGB CONC 30 g/dL (31-37); MEAN CORPUSCULAR VOLUME 85 fL (79-100); MONO % 3 % (0-9); NEUT % 94 % (31-73); PLATELET COUNT 285 x10^3/uL (140-400); RED BLOOD COUNT 4.09 x10^6/uL (3.50-5.40); RED CELL DISTRIBUTION WIDTH 29.2 % (11.5-14.5); WHITE BLOOD COUNT 15.7 x10^3/uL (4.0-11.0)
[2017-09-26] MEDS: PROPOFOL 100 ML IV PRN ×4 (06:15→21:34)
[2017-09-26 06:31] LABS: CREATININE 1.1 mg/dL (0.6-1.0); GFR 50.7; POTASSIUM 4.4 mmol/L (3.5-5.1)
[2017-09-26] MEDS: BUDESONIDE 0.5 MG/2 ML NEBU. NEB SCH ×2 (07:36→19:46)
--- NOTE | 2017-09-26 07:45 | PDOC ---
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 SKIN: No rash IV: ok Labs Lab Laboratory Tests Test 09/25/17 08:00 09/25/17 11:50 09/25/17 17:25 09/26/17 00:14 O2 Saturation 96 % (92-99) Arterial Blood pH 7.43 (7.35-7.45) Arterial Blood pCO2 at Patient Temp 36 mmHg (35-46) Arterial Blood pO2 at Patient Temp 83 mmHg (65-108) Arterial Blood HCO3 23 mmol/L (21-28) Arterial Blood Base Excess -1 mmol/L (-3-3) FiO2 50 White Blood Count 11.8 x10^3/uL (4.0-11.0) Red Blood Count 3.72 x10^6/uL (3.50-5.40) Hemoglobin 9.3 g/dL (12.0-15.5) Hematocrit 31.0 % (36.0-47.0) Mean Corpuscular Volume 83 fL (79-100) Mean Corpuscular Hemoglobin 25 pg (25-35) Mean Corpuscular Hemoglobin Concent 30 g/dL (31-37) Red Cell Distribution Width 27.6 % (11.5-14.5) Platelet Count 251 x10^3/uL (140-400) Sodium Level 148 mmol/L (136-145) Potassium Level 4.2 mmol/L (3.5-5.1) Chloride Level 115 mmol/L (98-107) Carbon Dioxide Level 27 mmol/L (21-32) Anion Gap 6 (6-14) Blood Urea Nitrogen 56 mg/dL (7-20) Creatinine 1.3 mg/dL (0.6-1.0) Estimated GFR (Cockcroft-Gault) 41.8 Glucose Level 206 mg/dL (70-99) Calcium Level 8.4 mg/dL (8.5-10.1) Magnesium Level 2.7 mg/dL (1.8-2.4) Glucose (Fingerstick) 199 mg/dL (70-99) 181 mg/dL (70-99) Test 09/26/17 05:40 09/26/17 06:22 White Blood Count 15.7 x10^3/uL (4.0-11.0) Red Blood Count 4.09 x10^6/uL (3.50-5.40) Hemoglobin 10.3 g/dL (12.0-15.5) Hematocrit 34.6 % (36.0-47.0) Mean Corpuscular Volume 85 fL (79-100) Mean Corpuscular Hemoglobin 25 pg (25-35) Mean Corpuscular Hemoglobin Concent 30 g/dL (31-37) Red Cell Distribution Width 29.2 % (11.5-14.5) Platelet Count 285 x10^3/uL (140-400) Neutrophils (%) (Auto) 94 % (31-73) Lymphocytes (%) (Auto) 3 % (24-48) Monocytes (%) (Auto) 3 % (0-9) Eosinophils (%) (Auto) 0 % (0-3) Basophils (%) (Auto) 0 % (0-3) Neutrophils # (Auto) 14.7 x10^3uL (1.8-7.7) Lymphocytes # (Auto) 0.4 x10^3/uL (1.0-4.8) Monocytes # (Auto) 0.5 x10^3/uL (0.0-1.1) Eosinophils # (Auto) 0.0 x10^3/uL (0.0-0.7) Basophils # (Auto) 0.0 x10^3/uL (0.0-0.2) Sodium Level 150 mmol/L (136-145) Potassium Level 4.4 mmol/L (3.5-5.1) Chloride Level 113 mmol/L (98-107) Carbon Dioxide Level 26 mmol/L (21-32) Anion Gap 11 (6-14) Blood Urea Nitrogen 57 mg/dL (7-20) Creatinine 1.1 mg/dL (0.6-1.0) Estimated GFR (Cockcroft-Gault) 50.7 Glucose Level 183 mg/dL (70-99) Calcium Level 9.0 mg/dL (8.5-10.1) Glucose (Fingerstick) 183 mg/dL (70-99) Micro culture neg Objective Assessment Acute Resp failure - intubated Strep/Legionella antigens - neg. S/p Bronch 09/20 , no growth to date Hypotension, now off Levophed Lactic normal/Procalcitonin mild - elevation Pulm infiltrates - ARDS ? if transfusions could be playing into resp failure Anemia - on arrival s/p PRBCs - GI following Leukocytosis - on steroids now and S/p PRBCs GEO -stable Transaminitis - ? reactive COPD H/o Leg wounds - no recent abx per for wounds - last amox 6 weeks ago Influenza vaccine 09/17 - given Plan Plan of Care cont zosyn, Resp viral panel/Silver stain was ordered but cancelled by Pathology F/u Mycoplasma 09/20 pending Parvo (with anemia although no rash or joint pains) ANCA pending F/u labs and cults elevated wbc likely sec to steroids cont supportive care CHRIS RODRIGUEZ MD Sep 26, 2017 07:44
[2017-09-26 07:48] LABS: HCO3 ABG 25 mmol/L (21-28); PCO2 ABG 40 mmHg (35-46); PH ABG 7.42 (7.35-7.45); PO2 ABG 87 mmHg (65-108); SAT O2 ABG 96 % (92-99)
[2017-09-26 07:53] LABS: FIO2 ABG 50%
--- NOTE | 2017-09-26 08:15 | RAD ---
EXAM: Chest one view. HISTORY: Respiratory failure. COMPARISON: 09/25/2017. FINDINGS: A frontal view of the chest is obtained. An endotracheal tube has its tip 2.5 cm above the radha. A nasogastric tube has its tip below the inferior margin of the field of view. A right internal jugular central venous catheter has its tip in the superior cavoatrial junction. There is rotation to the left. This ratio is small. Retrocardiac opacification persists. There are mild interstitial and airspace opacities in the right base. A small left pleural effusion is likely present. There is no pneumothorax. The heart is not enlarged. IMPRESSION: 1. Stable retrocardiac opacification and mild diffuse interstitial/airspace infiltrates.
[2017-09-26] MEDS: CHLORHEXIDINE 0.12% 15 ML MOUTHWASH. MM SCH ×2 (10:01→21:06)
[2017-09-26] MEDS: PANTOPRAZOLE IV PUSH 40 MG VIAL. IVP SCH (10:01)
--- NOTE | 2017-09-26 10:29 | PDOC ---
Objective: Objective: D/w RN - stooling. Vital Signs: Vital Signs Date Time Temp Pulse Resp B/P (MAP) Pulse Ox O2 Delivery O2 Flow Rate FiO2 09/26/17 10:00 82 113/73 (86) 99 Ventilator 09/26/17 09:00 27 09/26/17 07:00 98.5 98.5 09/25/17 08:00 Labs: Laboratory Tests Test 09/25/17 17:25 09/26/17 00:14 09/26/17 06:22 Glucose (Fingerstick) 199 mg/dL (70-99) 181 mg/dL (70-99) 183 mg/dL (70-99) Imaging: CXR 09/26/17 IMPRESSION: 1. Stable retrocardiac opacification and mild diffuse interstitial/airspace infiltrates. PE: GEN: intubated LUNGS: vent HEART: RRR ABD: S/ND, BS+ NEURO/PSYCH: sedated A/P: STUART -Hgb improving -colonoscopy last year ([facility]) w/ polyp, remote h/o EGD -on IV PPI, OG w/ tube feeds Resp failure, leukocytosis, hypernatremia, GEO -- Stable GI-muro. SHAHLA FISHER Sep 26, 2017 10:29
[2017-09-26] MEDS: IV DEXTROSE 5% 1,000 ML IV SCH ×2 (11:45→12:41)
--- NOTE | 2017-09-26 12:02 | PDOC ---
PROGRESS NOTES Subjective Subjective HPI - f/u of Iron deficiency anemia. ROS - on vent Objective Objective Vital Signs Date Time Temp Pulse Resp B/P (MAP) Pulse Ox O2 Delivery O2 Flow Rate FiO2 09/26/17 11:13 98 Ventilator 09/26/17 10:00 82 113/73 (86) 09/26/17 09:00 27 09/26/17 07:00 98.5 98.5 09/25/17 08:00 Intake and Output 09/26/17 07:00 Intake Total 3518 ml Output Total 1590 ml Balance 1928 ml IV Total 1459 ml Tube Feeding 1659 ml Other 400 ml Output Urine Total 1590 ml Physical Exam Heart: Normal S1, Normal S2 General: No acute distress Lungs: Clear to auscultation Assessment Assessment Problems Medical Problems: (1) Dyspnea Status: Acute (2) Hypoalbuminemia Status: Acute (3) Metabolic acidosis Status: Acute (4) Pneumonia Status: Acute IMPRESSION AND PLAN: 1. Iron deficiency anemia. There is no evidence of blood loss. She received Venofer 500 mg intravenous on 09/18/2017. I will continue to monitor hemoglobin and transfuse as needed. Hemoglobin improved to 7.7 after transfusion. Then worse at 6.6 on 09/19/17. s/p 1 unit 09/19/17. Hb 7.9 on 09/20/17 Improved to 10.3 2. Leukocytosis, reactive from underlying pneumonia. Management per Pulmonary Medicine. WBC 15.7 3. Pneumonia/dyspnea - I appreciate consultation by Dr. Adan Thurman. Intubated 09/19/17. Comment Review of Relevant I have reviewed the following items tha (where applicable) has been applied. Labs Laboratory Tests Test 09/25/17 08:00 09/25/17 11:50 09/25/17 17:25 09/26/17 00:14 O2 Saturation 96 % (92-99) Arterial Blood pH 7.43 (7.35-7.45) Arterial Blood pCO2 at Patient Temp 36 mmHg (35-46) Arterial Blood pO2 at Patient Temp 83 mmHg (65-108) Arterial Blood HCO3 23 mmol/L (21-28) Arterial Blood Base Excess -1 mmol/L (-3-3) FiO2 50 White Blood Count 11.8 x10^3/uL (4.0-11.0) Red Blood Count 3.72 x10^6/uL (3.50-5.40) Hemoglobin 9.3 g/dL (12.0-15.5) Hematocrit 31.0 % (36.0-47.0) Mean Corpuscular Volume 83 fL (79-100) Mean Corpuscular Hemoglobin 25 pg (25-35) Mean Corpuscular Hemoglobin Concent 30 g/dL (31-37) Red Cell Distribution Width 27.6 % (11.5-14.5) Platelet Count 251 x10^3/uL (140-400) Sodium Level 148 mmol/L (136-145) Potassium Level 4.2 mmol/L (3.5-5.1) Chloride Level 115 mmol/L (98-107) Carbon Dioxide Level 27 mmol/L (21-32) Anion Gap 6 (6-14) Blood Urea Nitrogen 56 mg/dL (7-20) Creatinine 1.3 mg/dL (0.6-1.0) Estimated GFR (Cockcroft-Gault) 41.8 Glucose Level 206 mg/dL (70-99) Calcium Level 8.4 mg/dL (8.5-10.1) Magnesium Level 2.7 mg/dL (1.8-2.4) Glucose (Fingerstick) 199 mg/dL (70-99) 181 mg/dL (70-99) Test 09/26/17 05:40 09/26/17 06:22 09/26/17 07:45 White Blood Count 15.7 x10^3/uL (4.0-11.0) Red Blood Count 4.09 x10^6/uL (3.50-5.40) Hemoglobin 10.3 g/dL (12.0-15.5) Hematocrit 34.6 % (36.0-47.0) Mean Corpuscular Volume 85 fL (79-100) Mean Corpuscular Hemoglobin 25 pg (25-35) Mean Corpuscular Hemoglobin Concent 30 g/dL (31-37) Red Cell Distribution Width 29.2 % (11.5-14.5) Platelet Count 285 x10^3/uL (140-400) Neutrophils (%) (Auto) 94 % (31-73) Lymphocytes (%) (Auto) 3 % (24-48) Monocytes (%) (Auto) 3 % (0-9) Eosinophils (%) (Auto) 0 % (0-3) Basophils (%) (Auto) 0 % (0-3) Neutrophils # (Auto) 14.7 x10^3uL (1.8-7.7) Lymphocytes # (Auto) 0.4 x10^3/uL (1.0-4.8) Monocytes # (Auto) 0.5 x10^3/uL (0.0-1.1) Eosinophils # (Auto) 0.0 x10^3/uL (0.0-0.7) Basophils # (Auto) 0.0 x10^3/uL (0.0-0.2) Sodium Level 150 mmol/L (136-145) Potassium Level 4.4 mmol/L (3.5-5.1) Chloride Level 113 mmol/L (98-107) Carbon Dioxide Level 26 mmol/L (21-32) Anion Gap 11 (6-14) Blood Urea Nitrogen 57 mg/dL (7-20) Creatinine 1.1 mg/dL (0.6-1.0) Estimated GFR (Cockcroft-Gault) 50.7 Glucose Level 183 mg/dL (70-99) Calcium Level 9.0 mg/dL (8.5-10.1) Glucose (Fingerstick) 183 mg/dL (70-99) O2 Saturation 96 % (92-99) Arterial Blood pH 7.42 (7.35-7.45) Arterial Blood pCO2 at Patient Temp 40 mmHg (35-46) Arterial Blood pO2 at Patient Temp 87 mmHg (65-108) Arterial Blood HCO3 25 mmol/L (21-28) Arterial Blood Base Excess 1 mmol/L (-3-3) FiO2 50% Laboratory Tests Test 09/25/17 17:25 09/26/17 00:14 09/26/17 05:40 09/26/17 06:22 Glucose (Fingerstick) 199 mg/dL (70-99) 181 mg/dL (70-99) 183 mg/dL (70-99) White Blood Count 15.7 x10^3/uL (4.0-11.0) Red Blood Count 4.09 x10^6/uL (3.50-5.40) Hemoglobin 10.3 g/dL (12.0-15.5) Hematocrit 34.6 % (36.0-47.0) Mean Corpuscular Volume 85 fL (79-100) Mean Corpuscular Hemoglobin 25 pg (25-35) Mean Corpuscular Hemoglobin Concent 30 g/dL (31-37) Red Cell Distribution Width 29.2 % (11.5-14.5) Platelet Count 285 x10^3/uL (140-400) Neutrophils (%) (Auto) 94 % (31-73) Lymphocytes (%) (Auto) 3 % (24-48) Monocytes (%) (Auto) 3 % (0-9) Eosinophils (%) (Auto) 0 % (0-3) Basophils (%) (Auto) 0 % (0-3) Neutrophils # (Auto) 14.7 x10^3uL (1.8-7.7) Lymphocytes # (Auto) 0.4 x10^3/uL (1.0-4.8) Monocytes # (Auto) 0.5 x10^3/uL (0.0-1.1) Eosinophils # (Auto) 0.0 x10^3/uL (0.0-0.7) Basophils # (Auto) 0.0 x10^3/uL (0.0-0.2) Sodium Level 150 mmol/L (136-145) Potassium Level 4.4 mmol/L (3.5-5.1) Chloride Level 113 mmol/L (98-107) Carbon Dioxide Level 26 mmol/L (21-32) Anion Gap 11 (6-14) Blood Urea Nitrogen 57 mg/dL (7-20) Creatinine 1.1 mg/dL (0.6-1.0) Estimated GFR (Cockcroft-Gault) 50.7 Glucose Level 183 mg/dL (70-99) Calcium Level 9.0 mg/dL (8.5-10.1) Test 09/26/17 07:45 O2 Saturation 96 % (92-99) Arterial Blood pH 7.42 (7.35-7.45) Arterial Blood pCO2 at Patient Temp 40 mmHg (35-46) Arterial Blood pO2 at Patient Temp 87 mmHg (65-108) Arterial Blood HCO3 25 mmol/L (21-28) Arterial Blood Base Excess 1 mmol/L (-3-3) FiO2 50% Microbiology 09/17/17 Blood Culture - Final, Complete NO GROWTH AFTER 5 DAYS 09/20/17 AFB Specimen Processing Tissue - Final, Resulted 09/20/17 Acid Fast Bacilli Culture, Resulted Pending 09/20/17 Gram Stain - Final, Resulted 09/20/17 Fungal Culture, Resulted Pending 09/20/17 Fungal Culture Result 1, Resulted Pending Medications Current Medications Sodium Chloride 1,000 ml @ 125 mls/hr 1X ONCE IV Last administered on 15:54; Start 09/17/17 at 15:15; Stop 09/17/17 at 23:14; Status DC Ondansetron HCl (Zofran) 4 mg PRN Q8HRS PRN IV NAUSEA/VOMITING; Start at 16:30; Stop 09/18/17 at 16:29; Status DC Ceftriaxone Sodium 50 ml @ 0 mls/hr 1X ONCE IV Last administered on 17:33; Start 09/17/17 at 16:45; Stop 09/17/17 at 16:46; Status DC Azithromycin 250 ml @ 250 mls/hr 1X ONCE IV Last administered on 09/17/17 22:38; Start 09/17/17 at 16:30; Stop 09/17/17 at 17:29; Status DC Albuterol/ Ipratropium (Duoneb) 3 ml 1X ONCE NEB Last administered on 17:00; Start 09/17/17 at 16:45; Stop 09/17/17 at 16:46; Status DC Potassium Chloride (Klor-Con) 40 meq 1X ONCE PO Last administered on 16:57; Start 09/17/17 at 16:45; Stop 09/17/17 at 16:46; Status DC Azithromycin (Zithromax) 250 mg DAILY PO Last administered on 09/18/17 10:25 ; Start 09/18/17 at 09:00; Stop 09/19/17 at 10:30; Status DC Ceftriaxone Sodium 1 gm/ Dextrose 50 ml @ 100 mls/hr Q24H IV ; Start 09/17/17 at 17:15; Status UNV Albuterol/ Ipratropium (Duoneb) 3 ml Q4HRS NEB Last administered on 09/26/17 11:13; Start 09/17/17 at 20:00 Ceftriaxone Sodium (Rocephin) 1 gm Q24H IVP Last administered on 09/18/17 17: 55; Start 09/18/17 at 16:00; Stop 09/19/17 at 10:30; Status DC Guaifenesin (Robitussin Dm) 10 ml PRN Q6HRS PRN PO COUGH; Start 09/17/17 at 17 :15 Sodium Chloride 1,000 ml @ 125 mls/hr 1X ONCE IV Last administered on 17:45; Start 09/17/17 at 17:15; Stop 09/17/17 at 22:12; Status DC Info (Do NOT chart on this placeholder) 1 each 1X ONCE MC ; Start 09/17/17 at 19:00; Stop 09/17/17 at 19:01; Status UNV Influenza Virus Vaccine Quadrival (Fluarix Quad [id number] Syringe) 0.5 ml ONCE ONCE VAX IM ; Start 09/17/17 at 21:00; Stop 09/17/17 at 21:01; Status DC Sodium Chloride 1,000 ml @ 130 mls/hr 1X ONCE IV Last administered on 22:31; Start 09/17/17 at 22:30; Stop 09/18/17 at 06:11; Status DC Sodium Bicarbonate 50 meq 1X ONCE IV Last administered on 09/17/17 22:31; Start 09/17/17 at 22:30; Stop 09/17/17 at 22:31; Status DC Alprazolam (Xanax) 1 mg PRN TID PRN PO ANXIETY Last administered on 09/19/17 02:19; Start 09/17/17 at 22:30 Furosemide (Lasix) 20 mg 1X ONCE IVP Last administered on 09/18/17 06:24; Start 09/18/17 at 06:30; Stop 09/18/17 at 06:31; Status DC Potassium Chloride (Klor-Con) 40 meq 1X ONCE PO Last administered on 10:25; Start 09/18/17 at 09:00; Stop 09/18/17 at 09:01; Status DC Iron Sucrose 500 mg/Sodium Chloride 275 ml @ 78.571 mls/ hr 1X ONCE IV Last administered on 09/18/17 10:24; Start 09/18/17 at 09:00; Stop 09/18/17 at 12 :29; Status DC Furosemide (Lasix) 20 mg 1X ONCE IVP Last administered on 09/18/17 10:30; Start 09/18/17 at 10:00; Stop 09/18/17 at 10:22; Status DC Pantoprazole Sodium (Protonix) 40 mg DAILYAC PO Last administered on 10:47; Start 09/18/17 at 11:00; Stop 09/19/17 at 13:41; Status DC Furosemide (Lasix) 20 mg 1X ONCE IVP Last administered on 09/18/17 10:47; Start 09/18/17 at 10:45; Stop 09/18/17 at 10:46; Status DC Potassium Chloride (Klor-Con) 40 meq 1X ONCE PO ; Start 09/18/17 at 11:45; Stop 09/18/17 at 11:46; Status DC Oxycodone/ Acetaminophen (Percocet 5/325) 1 tab PRN Q6HRS PRN PO PAIN Last administered on 09/18/17 13:23; Start 09/18/17 at 12:15 Lorazepam (Ativan) 1 mg PRN Q4HRS PRN IV ANXIETY / AGITATION Last administered on 09/18/17 12:25; Start 09/18/17 at 12:15; Stop 09/18/17 at 13:34; Status DC Fentanyl Citrate (Fentanyl 2ml Vial) 50 mcg PRN Q2HR PRN IV PAIN Last administered on 09/19/17 04:09; Start 09/18/17 at 12:15 Lorazepam (Ativan) 2 mg PRN Q4HRS PRN IV ANXIETY / AGITATION Last administered on 09/23/17 14:29; Start 09/18/17 at 13:30 Quetiapine Fumarate (SEROquel) 25 mg HS PO Last administered on 09/18/17 21: 03; Start 09/18/17 at 21:00; Stop 09/19/17 at 10:35; Status DC Haloperidol Lactate (Haldol) 5 mg PRN Q12HRS PRN IVP AGITATION; Start at 13:45 Lorazepam (Ativan) 1 mg PRN Q4HRS PRN IV ANXIETY / AGITATION; Start 09/19/17 at 10:15; Stop 09/19/17 at 10:18; Status DC Lorazepam (Ativan) 4 mg 1X ONCE IV ; Start 09/19/17 at 10:30; Stop 09/19/17 at 10:31; Status DC Vancomycin HCl (Vanco Per Pharmacy) 1 each PRN DAILY PRN MC SEE COMMENTS Last administered on 09/23/17 12:36; Start 09/19/17 at 10:30; Stop 09/24/17 at 08 :36; Status DC Piperacillin Sod/ Tazobactam Sod (Zosyn Per Pharmacy) 1 each PRN DAILY PRN MC SEE COMMENTS; Start 09/19/17 at 10:30; Stop 09/24/17 at 08:41; Status DC Vancomycin HCl 2 gm/Dextrose 500 ml @ 250 mls/hr 1X ONCE IV Last administered on 09/19/17 14:53; Start 09/19/17 at 11:00; Stop 09/19/17 at 12 :59; Status DC Piperacillin Sod/ Tazobactam Sod (Zosyn) 3.375 gm Q6HRS IVP Last administered on 09/26/17 05:30; Start 09/19/17 at 11:00 Budesonide (Pulmicort) 0.5 mg RTBID NEB Last administered on 09/26/17 07:36; Start 09/19/17 at 20:00 Budesonide (Pulmicort) 0.5 mg 1X ONCE NEB Last administered on 09/19/17 12: 50; Start 09/19/17 at 10:45; Stop 09/19/17 at 10:46; Status DC Pantoprazole Sodium (Protonix Vial) 40 mg DAILYAC IVP Last administered on 10:01; Start 09/19/17 at 11:30 Furosemide (Lasix) 40 mg DAILY IVP ; Start 09/19/17 at 11:00; Stop 09/20/17 at 13:20; Status DC Methylprednisolone Sodium Succinate (SOLU-Medrol 125MG VIAL) 125 mg 1X ONCE IV Last administered on 09/19/17 13:23; Start 09/19/17 at 10:45; Stop at 10:46; Status DC Prednisone (Prednisone) 40 mg DAILY PO ; Start 09/19/17 at 11:00; Stop at 09:02; Status DC Methylprednisolone Sodium Succinate (SOLU-Medrol 125MG VIAL) 125 mg Q8HRS IV Last administered on 09/23/17t 05:43; Start 09/19/17 at 14:00; Stop 09/23/17 at 10:40; Status DC Midazolam HCl 100 ml @ 0 mls/hr CONT PRN IV SEE I/O RECORD; Start 09/19/17 at 11:00; Stop 09/19/17 at 12:51; Status DC Midazolam HCl (Versed) 5 mg 1X ONCE IV ; Start 09/19/17 at 11:00; Stop at 11:01; Status DC Fentanyl Citrate (Fentanyl 2ml Vial) 50 mcg 1X ONCE IV ; Start 09/19/17 at 11: 00; Stop 09/19/17 at 11:01; Status DC Midazolam HCl 100 ml @ As Directed STK-MED ONCE IV ; Start 09/19/17 at 10:55; Stop 09/19/17 at 10:56; Status DC Midazolam HCl (Versed) 5 mg STK-MED ONCE .ROUTE ; Start 09/19/17 at 10:55; Stop 09/19/17 at 10:56; Status DC Propofol 100 ml @ As Directed STK-MED ONCE IV ; Start 09/19/17 at 10:59; Stop 09/19/17 at 11:00; Status DC Norepinephrine Bitartrate 250 ml @ As Directed STK-MED ONCE IV ; Start at 10:59; Stop 09/19/17 at 11:00; Status DC Furosemide (Lasix) 20 mg 1X ONCE IVP ; Start 09/19/17 at 11:15; Stop at 11:16; Status DC Vecuronium [place] (Norcuron Bolus) 10 mg STK-MED ONCE IV ; Start 09/19/17 at 11:21; Stop 09/19/17 at 11:22; Status DC Fentanyl Citrate 30 ml @ 0 mls/hr CONT PRN IV PROTOCOL Last administered on 15:08; Start 09/19/17 at 11:30; Stop 09/23/17 at 15:24; Status DC Vecuronium [place] (Norcuron Bolus) 6 mg 1X ONCE IV Last administered on 09/19t 11:42; Start 09/19/17 at 11:30; Stop 09/19/17 at 11:39; Status DC Propofol 10 ml @ 0 mls/hr 1X ONCE IV Last administered on 09/19/17 11:30; Start 09/19/17 at 11:30; Stop 09/19/17 at 11:39; Status DC Midazolam HCl 100 ml @ 0 mls/hr CONT PRN IV SEE I/O RECORD Last administered on 09/25/17 10:35; Start 09/19/17 at 11:30 Norepinephrine Bitartrate 250 ml @ 0 mls/hr CONT PRN IV SEE I/O RECORD Last administered on 09/24/17 05:18; Start 09/19/17 at 11:30 Succinylcholine Chloride (Anectine) 100 mg 1X ONCE IV Last administered on 11:42; Start 09/19/17 at 11:30; Stop 09/19/17 at 11:39; Status DC Sodium Bicarbonate 50 meq 1X ONCE IV Last administered on 09/19/17 13:23; Start 09/19/17 at 12:45; Stop 09/19/17 at 12:46; Status DC Sodium Bicarbonate 50 meq 1X ONCE IV Last administered on 09/19/17 13:23; Start 09/19/17 at 12:45; Stop 09/19/17 at 12:46; Status DC Lidocaine/Sodium Bicarbonate (Buffered Lidocaine 1%) 20 ml STK-MED ONCE IJ ; Start 09/19/17 at 13:34; Stop 09/19/17 at 13:35; Status DC Vecuronium [place] (Norcuron Bolus) 10 mg 1X ONCE IV Last administered on 15:05; Start 09/19/17 at 14:00; Stop 09/19/17 at 14:02; Status DC Lidocaine/Sodium Bicarbonate (Buffered Lidocaine 1%) 3 ml 1X ONCE IJ ; Start 09/19/17 at 14:45; Stop 09/19/17 at 14:46; Status DC Vancomycin HCl 1.25 gm/Dextrose 250 ml @ 166.667 mls/hr Q24H IV Last administered on 09/23/17 17:19; Start 09/20/17 at 15:00; Stop 09/24/17 at 08 :35; Status DC Vancomycin HCl 1 each 1X ONCE MC Last administered on 09/21/17 14:30; Start 09/21/17 at 14:30; Stop 09/21/17 at 14:31; Status DC Azithromycin 500 mg/Sodium Chloride 250 ml @ 250 mls/hr Q24H IV Last administered on 09/23/17 17:19; Start 09/19/17 at 16:30; Stop 09/24/17 at 08 :35; Status DC Norepinephrine Bitartrate (Levophed 8mg/ 250ml Premix Drip) 8 mg STK-MED ONCE IV ; Start 09/19/17 at 11:00; Stop 09/20/17 at 08:44; Status DC Midazolam HCl (Versed) 5 mg STK-MED ONCE .ROUTE ; Start 09/19/17 at 11:00; Stop 09/20/17 at 08:44; Status DC Amino Acids/ Glycerin/ Electrolytes 1,000 ml @ 80 mls/hr [id number] IV Last administered on 09/21/17 01:21; Start 09/20/17 at 10:00; Stop 09/22/17 at 07 :02; Status DC Info 1 each PRN DAILY PRN MC SEE COMMENTS; Start 09/20/17 at 10:00; Stop at 12:14; Status DC Furosemide (Lasix) 20 mg 1X ONCE IVP Last administered on 09/20/17 10:21; Start 09/20/17 at 10:15; Stop 09/20/17 at 10:18; Status DC Info 1 each PRN DAILY PRN MC SEE COMMENTS; Start 09/20/17 at 11:00; Status UNV Vecuronium [place] (Norcuron Bolus) 10 mg 1X ONCE IV Last administered on 12:03; Start 09/20/17 at 11:15; Stop 09/20/17 at 11:24; Status DC Atropine Sulfate 0.5 mg STK-MED ONCE .ROUTE ; Start 09/20/17 at 11:47; Stop at 11:48; Status DC Epinephrine HCl (EPINEPHrine SYRINGE) 1 mg STK-MED ONCE .ROUTE ; Start at 11:47; Stop 09/20/17 at 11:48; Status DC Atropine Sulfate 0.5 mg STK-MED ONCE .ROUTE ; Start 09/20/17 at 12:00; Stop at 09:11; Status DC Epinephrine HCl (EPINEPHrine SYRINGE) 1 mg STK-MED ONCE .ROUTE ; Start at 12:00; Stop 09/21/17 at 09:11; Status DC Furosemide (Lasix) 20 mg DAILY IVP ; Start 09/21/17 at 11:15; Stop 09/21/17 at 11:20; Status DC Lorazepam (Ativan) 1 mg PRN Q1HR PRN IV ANXIETY / AGITATION Last administered on 09/23/17 05:49; Start 09/21/17 at 11:15 Albumin Human 250 ml @ 62.5 mls/hr 1X ONCE IV Last administered on 11:57; Start 09/21/17 at 11:30; Stop 09/21/17 at 15:29; Status DC Albumin Human 250 ml @ 62.5 mls/hr 1X ONCE IV Last administered on 14:29; Start 09/21/17 at 11:30; Stop 09/21/17 at 15:29; Status DC Micafungin Sodium 100 mg/Dextrose 100 ml @ 100 mls/hr Q24H IV Last administered on 09/23/17 13:17; Start 09/21/17 at 12:00; Stop 09/24/17 at 08 :35; Status DC Vecuronium [place] (Norcuron Bolus) 4 mg PRN Q4HRS PRN IV AGITATION; Start at 15:00 Dexmedetomidine HCl 200 mcg/ Sodium Chloride 50 ml @ 0 mls/hr CONT PRN IV PER PROTOCOL Last administered on 09/21/17 15:54; Start 09/21/17 at 15:30 Sodium Chloride 500 ml @ 500 mls/hr 1X PRN PRN IV SEE COMMENTS; Start at 15:30 Atropine Sulfate 0.5 mg PRN Q5MIN PRN IV SEE COMMENTS; Start 09/21/17 at 15:30 Propofol 100 ml @ 0 mls/hr CONT PRN IV PER PROTOCOL Last administered on 06:15; Start 09/21/17 at 16:45 Furosemide (Lasix) 20 mg 1X ONCE IVP Last administered on 09/22/17 09:41; Start 09/22/17 at 10:15; Stop 09/22/17 at 10:16; Status DC Chlorhexidine Gluconate (Peridex) 15 ml BID MM Last administered on 09/26/17 10:01; Start 09/22/17 at 21:00 Furosemide (Lasix) 20 mg 1X ONCE IVP Last administered on 09/22/17 17:55; Start 09/22/17 at 18:00; Stop 09/22/17 at 18:01; Status DC Furosemide (Lasix) 20 mg DAILY IVP Last administered on 09/23/17 13:16; Start 09/23/17 at 11:30; Stop 09/24/17 at 08:40; Status DC Methylprednisolone Sodium Succinate (SOLU-Medrol 125MG VIAL) 80 mg Q8HRS IV Last administered on 09/26/17 05:30; Start 09/23/17 at 14:00 Fentanyl Citrate 55 ml @ 0 mls/hr CONT PRN PRN IV PER PROTOCOL Last administered on 09/25/17 02:41; Start 09/23/17 at 12:15 Dextrose 1,000 ml @ 25 mls/hr Q24H IV Last administered on 09/24/17 21:53; Start 09/23/17 at 11:45 Enoxaparin Sodium (Lovenox Per Pharmacy Prophylaxis Dosing) 1 each PRN DAILY PRN MC SEE COMMENTS; Start 09/23/17 at 16:30; Stop 09/24/17 at 08:41; Status DC Enoxaparin Sodium (Lovenox 40mg Syringe) 40 mg Q24H SQ ; Start 09/23/17 at 17: 00 Bisacodyl (Dulcolax Tab) 5 mg PRN DAILY PRN PO CONSTIPATION; Start 09/24/17 at 09:30 Insulin Aspart (NovoLOG) 0-5 UNITS Q6HRS SQ Last administered on 09/26/17 06: 23; Start 09/25/17 at 18:00 Dextrose (Dextrose 50%-Water Syringe) 12.5 gm PRN Q15MIN PRN IV SEE COMMENTS; Start 09/25/17 at 12:30 Active Scripts Active Reported Gabapentin 300 Mg Capsule 300 Mg PO TID Cymbalta (Duloxetine Hcl) 60 Mg Capsule.dr 1 Cap PO BID Hydrochlorothiazide Tablet (Hydrochlorothiazide) 25 Mg Tablet 1 Tab PO DAILY Xanax (Alprazolam) 1 Mg Tablet 1 Tab PO TID PRN Vitals/I & O Vital Sign - Last 24 Hours 09/25/17 09/25/17 09/25/17 09/25/17 12:37 13:00 14:00 15:00 Temp 99.2 99.2 Pulse 77 73 72 Resp 26 20 20 B/P (MAP) 112/69 (83) 102/61 (75) 92/62 (72) Pulse Ox 98 100 98 98 O2 Delivery Ventilator Ventilator Ventilator 09/25/17 09/25/17 09/25/17 09/25/17 15:42 16:00 16:00 17:00 Pulse 62 77 Resp 24 27 B/P (MAP) 90/57 (68) 108/65 (79) Pulse Ox 98 100 97 O2 Delivery Ventilator Mechanical Ventilator Ventilator Ventilator 09/25/17 09/25/17 09/25/17 09/25/17 17:55 18:00 19:00 19:37 Pulse 74 72 Resp 21 22 B/P (MAP) 103/63 (76) 99/62 (74) Pulse Ox 97 98 98 97 O2 Delivery Ventilator Ventilator Ventilator Ventilator 09/25/17 09/25/17 09/25/17 09/25/17 20:00 20:00 21:00 22:00 Temp 99.3 99.3 Pulse 79 70 69 Resp 26 24 23 B/P (MAP) 117/80 (92) 106/63 (77) 125/72 (89) Pulse Ox 98 98 99 O2 Delivery Mechanical Ventilator Ventilator Ventilator Ventilator 09/25/17 09/25/17 09/26/17 09/26/17 23:00 23:22 00:00 00:00 Temp 97.7 97.7 Pulse 66 66 Resp 23 24 B/P (MAP) 101/70 (80) 97/67 (77) Pulse Ox 100 97 100 O2 Delivery Ventilator Ventilator Mechanical Ventilator Ventilator 09/26/17 09/26/17 09/26/17 09/26/17 01:00 01:39 02:00 03:00 Pulse 62 110 92 Resp 24 33 25 B/P (MAP) 100/67 (78) 134/87 (103) 150/94 (112) Pulse Ox 99 100 100 100 O2 Delivery Ventilator Ventilator Ventilator Ventilator 11/22/17 09/26/17 09/26/17 09/26/17 03:52 04:00 04:00 05:00 Temp 98.2 98.2 Pulse 110 115 Resp 28 29 B/P (MAP) 102/68 (79) 120/82 (95) Pulse Ox 100 100 100 O2 Delivery Ventilator Ventilator Mechanical Ventilator Ventilator 09/26/17 09/26/17 09/26/17 09/26/17 05:38 06:00 07:00 07:36 Temp 98.5 98.5 Pulse 90 73 Resp 25 24 B/P (MAP) 115/71 (86) 95/57 (70) Pulse Ox 100 98 98 98 O2 Delivery Ventilator Ventilator Ventilator Ventilator 09/26/17 09/26/17 09/26/17 09/26/17 08:00 08:00 08:28 09:00 Pulse 67 87 Resp 27 B/P (MAP) 94/62 (73) 117/77 (90) Pulse Ox 99 100 99 O2 Delivery Ventilator Mechanical Ventilator Ventilator Ventilator 09/26/17 09/26/17 10:00 11:13 Pulse 82 B/P (MAP) 113/73 (86) Pulse Ox 99 98 O2 Delivery Ventilator Ventilator Intake and Output 09/25/17 09/25/17 09/26/17 15:00 23:00 07:00 Intake Total 150 ml 1602 ml 1766 ml Output Total 555 ml 385 ml 650 ml Balance -405 ml 1217 ml 1116 ml ELLA ORTEGA MD Sep 26, 2017 12:02
[2017-09-26] MEDS: MIDAZOLAM 100MG/100ML PREMIX 100 ML IV PRN (12:43)
--- NOTE | 2017-09-26 13:21 | PDOC ---
SUBJECTIVE ROS GEO and Now ^ed Na doing same OBJECTIVE Vital Signs Vital Signs Date Time Temp Pulse Resp B/P (MAP) Pulse Ox O2 Delivery O2 Flow Rate FiO2 09/26/17 12:43 99 Ventilator 09/26/17 12:00 76 24 108/70 (83) 09/26/17 07:00 98.5 98.5 09/25/17 08:00 I & 0 Intake and Output 09/26/17 07:00 Intake Total 3518 ml Output Total 1590 ml Balance 1928 ml IV Total 1459 ml Tube Feeding 1659 ml Other 400 ml Output Urine Total 1590 ml PHYSICAL EXAM Physical Exam General Appearance: A Neck: No JVD or JVP Chest: CTA Jed - few rales Heart: S1 S2 Abdomen - Soft NTND Extremities - +ve ankle Edema DIAGNOSIS/ASSESSMENT Assessment & Plan GEO - VMN now resolved with +ve fluid balance ^Na - suspect due to TF - Increase Free water for now. If Resp status is worse then TF and Water flushes may need to be D/mary for a short time Problems: COMMENT/RELEVANT DATA Meds Current Medications Medications (Trade) Dose Ordered Sig/[place] Start Time Stop Time Status Last Admin Dose Admin Albumin Human 250 ml @ 62.5 mls/hr 1X ONCE 09/21/17 11:30 09/21/17 15:29 DC 09/21/17 14:29 62.5 MLS/HR Albuterol/ Ipratropium (Duoneb) 3 ml Q4HRS 09/17/17 20:00 09/26/17 11:13 3 ML Alprazolam (Xanax) 1 mg PRN TID PRN 09/17/17 22:30 09/19/17 02:19 1 MG Amino Acids/ Glycerin/ Electrolytes 1,000 ml @ 80 mls/hr [id number] 09/20/17 10:00 09/22/17 07:02 DC 09/21/17 01:21 80 MLS/HR Atropine Sulfate 0.5 mg PRN Q5MIN PRN 09/21/17 15:30 Azithromycin (Zithromax) 250 mg DAILY 09/18/17 09:00 09/19/17 10:30 DC 09/18/17 10:25 250 MG Azithromycin 500 mg/Sodium Chloride 250 ml @ 250 mls/hr Q24H 09/19/17 16:30 09/24/17 08:35 DC 09/23/17 17:19 250 MLS/HR Bisacodyl (Dulcolax Tab) 5 mg PRN DAILY PRN 09/24/17 09:30 Budesonide (Pulmicort) 0.5 mg 1X ONCE 09/19/17 10:45 09/19/17 10:46 DC 09/19/17 12:50 0.5 MG Ceftriaxone Sodium 1 gm/ Dextrose 50 ml @ 100 mls/hr Q24H 09/17/17 17:15 UNV Ceftriaxone Sodium (Rocephin) 1 gm Q24H 09/18/17 16:00 09/19/17 10:30 DC 09/18/17 17:55 1 GM Chlorhexidine Gluconate (Peridex) 15 ml BID 09/22/17 21:00 09/26/17 10:01 15 ML Dexmedetomidine HCl 200 mcg/ Sodium Chloride 50 ml @ 0 mls/hr CONT PRN 09/21/17 15:30 09/21/17 15:54 3.6 MLS/HR Dextrose (Dextrose 50%-Water Syringe) 12.5 gm PRN Q15MIN PRN 09/25/17 12:30 Enoxaparin Sodium (Lovenox 40mg Syringe) 40 mg Q24H 09/23/17 17:00 Enoxaparin Sodium (Lovenox Per Pharmacy Prophylaxis Dosing) 1 each PRN DAILY PRN 09/23/17 16:30 09/24/17 08:41 DC Epinephrine HCl (EPINEPHrine SYRINGE) 1 mg STK-MED ONCE 09/20/17 12:00 09/21/17 09:11 DC Fentanyl Citrate 55 ml @ 0 mls/hr CONT PRN PRN 09/23/17 12:15 09/25/17 02:41 1.98 MLS/HR Fentanyl Citrate (Fentanyl 2ml Vial) 50 mcg 1X ONCE 09/19/17 11:00 09/19/17 11:01 DC Furosemide (Lasix) 20 mg DAILY 09/23/17 11:30 09/24/17 08:40 DC 09/23/17 13:16 20 MG Guaifenesin (Robitussin Dm) 10 ml PRN Q6HRS PRN 09/17/17 17:15 Haloperidol Lactate (Haldol) 5 mg PRN Q12HRS PRN 09/18/17 13:45 Influenza Virus Vaccine Quadrival (Fluarix Quad [id number] Syringe) 0.5 ml ONCE ONCE 09/17/17 21:00 09/17/17 21:01 DC Info 1 each PRN DAILY PRN 09/20/17 11:00 UNV Info (Do NOT chart on this placeholder) 1 each 1X ONCE 09/17/17 19:00 09/17/17 19:01 UNV Insulin Aspart (NovoLOG) 0-5 UNITS Q6HRS 09/25/17 18:00 09/26/17 12:35 2 UNITS Iron Sucrose 500 mg/Sodium Chloride 275 ml @ 78.571 mls/ hr 1X ONCE 09/18/17 09:00 09/18/17 12:29 DC 09/18/17 10:24 78.571 MLS/HR Lidocaine/Sodium Bicarbonate (Buffered Lidocaine 1%) 3 ml 1X ONCE 09/19/17 14:45 09/19/17 14:46 DC Lorazepam (Ativan) 1 mg PRN Q1HR PRN 09/21/17 11:15 09/23/17 05:49 1 MG Methylprednisolone Sodium Succinate (SOLU-Medrol 125MG VIAL) 80 mg Q8HRS 09/23/17 14:00 09/26/17 05:30 80 MG Micafungin Sodium 100 mg/Dextrose 100 ml @ 100 mls/hr Q24H 09/21/17 12:00 09/24/17 08:35 DC 09/23/17 13:17 100 MLS/HR Midazolam HCl (Versed) 5 mg STK-MED ONCE 09/19/17 11:00 09/20/17 08:44 DC Norepinephrine Bitartrate (Levophed 8mg/ 250ml Premix Drip) 8 mg STK-MED ONCE 09/19/17 11:00 09/20/17 08:44 DC Ondansetron HCl (Zofran) 4 mg PRN Q8HRS PRN 09/17/17 16:30 09/18/17 16:29 DC Oxycodone/ Acetaminophen (Percocet 5/325) 1 tab PRN Q6HRS PRN 09/18/17 12:15 09/18/17 13:23 1 TAB Pantoprazole Sodium (Protonix Vial) 40 mg DAILYAC 09/19/17 11:30 09/26/17 10:01 40 MG Pantoprazole Sodium (Protonix) 40 mg DAILYAC 09/18/17 11:00 09/19/17 13:41 DC 09/18/17 10:47 40 MG Piperacillin Sod/ Tazobactam Sod (Zosyn Per Pharmacy) 1 each PRN DAILY PRN 09/19/17 10:30 09/24/17 08:41 DC Piperacillin Sod/ Tazobactam Sod (Zosyn) 3.375 gm Q6HRS 09/19/17 11:00 09/26/17 12:40 3.375 GM Potassium Chloride (Klor-Con) 40 meq 1X ONCE 09/18/17 11:45 09/18/17 11:46 DC Prednisone (Prednisone) 40 mg DAILY 09/19/17 11:00 09/20/17 09:02 DC Propofol 100 ml @ 0 mls/hr CONT PRN 09/21/17 16:45 09/26/17 12:40 16.6 MLS/HR Quetiapine Fumarate (SEROquel) 25 mg HS 09/18/17 21:00 09/19/17 10:35 DC 09/18/17 21:03 25 MG Sodium Bicarbonate 50 meq 1X ONCE 09/19/17 12:45 09/19/17 12:46 DC 09/19/17 13:23 50 MEQ Sodium Chloride 500 ml @ 500 mls/hr 1X PRN PRN 09/21/17 15:30 Succinylcholine Chloride (Anectine) 100 mg 1X ONCE 09/19/17 11:30 09/19/17 11:39 DC 09/19/17 11:42 100 MG Vancomycin HCl 1 each 1X ONCE 09/21/17 14:30 09/21/17 14:31 DC 09/21/17 14:30 1 EACH Vancomycin HCl (Vanco Per Pharmacy) 1 each PRN DAILY PRN 09/19/17 10:30 09/24/17 08:36 DC 09/23/17 12:36 1 EACH Vancomycin HCl 1.25 gm/Dextrose 250 ml @ 166.667 mls/hr Q24H 09/20/17 15:00 09/24/17 08:35 DC 09/23/17 17:19 166.667 MLS/HR Vancomycin HCl 2 gm/Dextrose 500 ml @ 250 mls/hr 1X ONCE 09/19/17 11:00 09/19/17 12:59 DC 09/19/17 14:53 250 MLS/HR Vecuronium [place] (Norcuron Bolus) 4 mg PRN Q4HRS PRN 09/21/17 15:00 Lab Laboratory Tests Test 09/25/17 17:25 09/26/17 00:14 09/26/17 05:40 09/26/17 06:22 Glucose (Fingerstick) 199 mg/dL (70-99) 181 mg/dL (70-99) 183 mg/dL (70-99) White Blood Count 15.7 x10^3/uL (4.0-11.0) Red Blood Count 4.09 x10^6/uL (3.50-5.40) Hemoglobin 10.3 g/dL (12.0-15.5) Hematocrit 34.6 % (36.0-47.0) Mean Corpuscular Volume 85 fL (79-100) Mean Corpuscular Hemoglobin 25 pg (25-35) Mean Corpuscular Hemoglobin Concent 30 g/dL (31-37) Red Cell Distribution Width 29.2 % (11.5-14.5) Platelet Count 285 x10^3/uL (140-400) Neutrophils (%) (Auto) 94 % (31-73) Lymphocytes (%) (Auto) 3 % (24-48) Monocytes (%) (Auto) 3 % (0-9) Eosinophils (%) (Auto) 0 % (0-3) Basophils (%) (Auto) 0 % (0-3) Neutrophils # (Auto) 14.7 x10^3uL (1.8-7.7) Lymphocytes # (Auto) 0.4 x10^3/uL (1.0-4.8) Monocytes # (Auto) 0.5 x10^3/uL (0.0-1.1) Eosinophils # (Auto) 0.0 x10^3/uL (0.0-0.7) Basophils # (Auto) 0.0 x10^3/uL (0.0-0.2) Sodium Level 150 mmol/L (136-145) Potassium Level 4.4 mmol/L (3.5-5.1) Chloride Level 113 mmol/L (98-107) Carbon Dioxide Level 26 mmol/L (21-32) Anion Gap 11 (6-14) Blood Urea Nitrogen 57 mg/dL (7-20) Creatinine 1.1 mg/dL (0.6-1.0) Estimated GFR (Cockcroft-Gault) 50.7 Glucose Level 183 mg/dL (70-99) Calcium Level 9.0 mg/dL (8.5-10.1) Test 09/26/17 07:45 09/26/17 12:30 O2 Saturation 96 % (92-99) Arterial Blood pH 7.42 (7.35-7.45) Arterial Blood pCO2 at Patient Temp 40 mmHg (35-46) Arterial Blood pO2 at Patient Temp 87 mmHg (65-108) Arterial Blood HCO3 25 mmol/L (21-28) Arterial Blood Base Excess 1 mmol/L (-3-3) FiO2 50% Glucose (Fingerstick) 186 mg/dL (70-99) ARCADIO RODRIGUEZ MD Sep 26, 2017 13:21
--- NOTE | 2017-09-26 15:15 | PDOC ---
PROGRESS NOTES Chief Complaint Chief Complaint Acute hypoxic respiratory failure consistent with ARDS, improved, down to 45% Fi02 Pneumonia Hypotension COPD Sepsis Leukocytosis - on steroids now and S/p PRBCs Anemia, acute on chronic Transaminitis - ? reactive GEO -stable Tobaccoism Anxiety d/o H/o Leg wounds - no recent abx per for wounds - last amox 6 weeks ago Influenza vaccine 09/17 - given History of Present Illness History of Present Illness Pt seen and examined today in the ICU pt sedated and intubated: AC/24/400/45% decreased to 6% PEEP CXR unchanged from yesterday OG feeding tube in place Vitals Vitals Vital Signs Date Time Temp Pulse Resp B/P (MAP) Pulse Ox O2 Delivery O2 Flow Rate FiO2 09/26/17 14:57 98 Ventilator 09/26/17 14:00 84 25 91/60 (70) 09/26/17 07:00 98.5 98.5 09/25/17 08:00 Physical Exam Physical Exam PERRLA General: No acute distress Heart: Regular rate, Normal S1, Normal S2 Lungs: Clear, Other (No wheezes or crackles ) Abdomen: Soft, No tenderness Extremities: No clubbing, No cyanosis Skin: No rashes, No significant lesion Labs LABS Laboratory Tests Test 09/25/17 17:25 09/26/17 00:14 09/26/17 05:40 09/26/17 06:22 Glucose (Fingerstick) 199 mg/dL (70-99) 181 mg/dL (70-99) 183 mg/dL (70-99) White Blood Count 15.7 x10^3/uL (4.0-11.0) Red Blood Count 4.09 x10^6/uL (3.50-5.40) Hemoglobin 10.3 g/dL (12.0-15.5) Hematocrit 34.6 % (36.0-47.0) Mean Corpuscular Volume 85 fL (79-100) Mean Corpuscular Hemoglobin 25 pg (25-35) Mean Corpuscular Hemoglobin Concent 30 g/dL (31-37) Red Cell Distribution Width 29.2 % (11.5-14.5) Platelet Count 285 x10^3/uL (140-400) Neutrophils (%) (Auto) 94 % (31-73) Lymphocytes (%) (Auto) 3 % (24-48) Monocytes (%) (Auto) 3 % (0-9) Eosinophils (%) (Auto) 0 % (0-3) Basophils (%) (Auto) 0 % (0-3) Neutrophils # (Auto) 14.7 x10^3uL (1.8-7.7) Lymphocytes # (Auto) 0.4 x10^3/uL (1.0-4.8) Monocytes # (Auto) 0.5 x10^3/uL (0.0-1.1) Eosinophils # (Auto) 0.0 x10^3/uL (0.0-0.7) Basophils # (Auto) 0.0 x10^3/uL (0.0-0.2) Sodium Level 150 mmol/L (136-145) Potassium Level 4.4 mmol/L (3.5-5.1) Chloride Level 113 mmol/L (98-107) Carbon Dioxide Level 26 mmol/L (21-32) Anion Gap 11 (6-14) Blood Urea Nitrogen 57 mg/dL (7-20) Creatinine 1.1 mg/dL (0.6-1.0) Estimated GFR (Cockcroft-Gault) 50.7 Glucose Level 183 mg/dL (70-99) Calcium Level 9.0 mg/dL (8.5-10.1) Test 09/26/17 07:45 09/26/17 12:30 O2 Saturation 96 % (92-99) Arterial Blood pH 7.42 (7.35-7.45) Arterial Blood pCO2 at Patient Temp 40 mmHg (35-46) Arterial Blood pO2 at Patient Temp 87 mmHg (65-108) Arterial Blood HCO3 25 mmol/L (21-28) Arterial Blood Base Excess 1 mmol/L (-3-3) FiO2 50% Glucose (Fingerstick) 186 mg/dL (70-99) Review of Systems Review of Systems Pt intubated Assessment and Plan Assessmemt and Plan Problems Medical Problems: (1) Dyspnea Status: Acute (2) Hypoalbuminemia Status: Acute (3) Metabolic acidosis Status: Acute (4) Pneumonia Status: Acute Assessment: Acute hypoxic respiratory failure consistent with ARDS, improved, down to 45% Fi02 Pneumonia Hypotension COPD Sepsis Leukocytosis - on steroids now and S/p PRBCs Anemia, acute on chronic Transaminitis - ? reactive GEO -stable Tobaccoism Anxiety d/o H/o Leg wounds - no recent abx per for wounds - last amox 6 weeks ago Influenza vaccine 09/17 - given Plan: Wean ventilation, subspecialty input appreciated Continue ICU monitoring Continue abx Continue OG feeding Recheck labs in AM Problems: Comment Review of Relevant I have reviewed the following items tha (where applicable) has been applied. Labs Laboratory Tests Test 09/25/17 08:00 09/25/17 11:50 09/25/17 17:25 09/26/17 00:14 O2 Saturation 96 % (92-99) Arterial Blood pH 7.43 (7.35-7.45) Arterial Blood pCO2 at Patient Temp 36 mmHg (35-46) Arterial Blood pO2 at Patient Temp 83 mmHg (65-108) Arterial Blood HCO3 23 mmol/L (21-28) Arterial Blood Base Excess -1 mmol/L (-3-3) FiO2 50 White Blood Count 11.8 x10^3/uL (4.0-11.0) Red Blood Count 3.72 x10^6/uL (3.50-5.40) Hemoglobin 9.3 g/dL (12.0-15.5) Hematocrit 31.0 % (36.0-47.0) Mean Corpuscular Volume 83 fL (79-100) Mean Corpuscular Hemoglobin 25 pg (25-35) Mean Corpuscular Hemoglobin Concent 30 g/dL (31-37) Red Cell Distribution Width 27.6 % (11.5-14.5) Platelet Count 251 x10^3/uL (140-400) Sodium Level 148 mmol/L (136-145) Potassium Level 4.2 mmol/L (3.5-5.1) Chloride Level 115 mmol/L (98-107) Carbon Dioxide Level 27 mmol/L (21-32) Anion Gap 6 (6-14) Blood Urea Nitrogen 56 mg/dL (7-20) Creatinine 1.3 mg/dL (0.6-1.0) Estimated GFR (Cockcroft-Gault) 41.8 Glucose Level 206 mg/dL (70-99) Calcium Level 8.4 mg/dL (8.5-10.1) Magnesium Level 2.7 mg/dL (1.8-2.4) Glucose (Fingerstick) 199 mg/dL (70-99) 181 mg/dL (70-99) Test 09/26/17 05:40 09/26/17 06:22 09/26/17 07:45 09/26/17 12:30 White Blood Count 15.7 x10^3/uL (4.0-11.0) Red Blood Count 4.09 x10^6/uL (3.50-5.40) Hemoglobin 10.3 g/dL (12.0-15.5) Hematocrit 34.6 % (36.0-47.0) Mean Corpuscular Volume 85 fL (79-100) Mean Corpuscular Hemoglobin 25 pg (25-35) Mean Corpuscular Hemoglobin Concent 30 g/dL (31-37) Red Cell Distribution Width 29.2 % (11.5-14.5) Platelet Count 285 x10^3/uL (140-400) Neutrophils (%) (Auto) 94 % (31-73) Lymphocytes (%) (Auto) 3 % (24-48) Monocytes (%) (Auto) 3 % (0-9) Eosinophils (%) (Auto) 0 % (0-3) Basophils (%) (Auto) 0 % (0-3) Neutrophils # (Auto) 14.7 x10^3uL (1.8-7.7) Lymphocytes # (Auto) 0.4 x10^3/uL (1.0-4.8) Monocytes # (Auto) 0.5 x10^3/uL (0.0-1.1) Eosinophils # (Auto) 0.0 x10^3/uL (0.0-0.7) Basophils # (Auto) 0.0 x10^3/uL (0.0-0.2) Sodium Level 150 mmol/L (136-145) Potassium Level 4.4 mmol/L (3.5-5.1) Chloride Level 113 mmol/L (98-107) Carbon Dioxide Level 26 mmol/L (21-32) Anion Gap 11 (6-14) Blood Urea Nitrogen 57 mg/dL (7-20) Creatinine 1.1 mg/dL (0.6-1.0) Estimated GFR (Cockcroft-Gault) 50.7 Glucose Level 183 mg/dL (70-99) Calcium Level 9.0 mg/dL (8.5-10.1) Glucose (Fingerstick) 183 mg/dL (70-99) 186 mg/dL (70-99) O2 Saturation 96 % (92-99) Arterial Blood pH 7.42 (7.35-7.45) Arterial Blood pCO2 at Patient Temp 40 mmHg (35-46) Arterial Blood pO2 at Patient Temp 87 mmHg (65-108) Arterial Blood HCO3 25 mmol/L (21-28) Arterial Blood Base Excess 1 mmol/L (-3-3) FiO2 50% Laboratory Tests Test 09/25/17 17:25 09/26/17 00:14 09/26/17 05:40 09/26/17 06:22 Glucose (Fingerstick) 199 mg/dL (70-99) 181 mg/dL (70-99) 183 mg/dL (70-99) White Blood Count 15.7 x10^3/uL (4.0-11.0) Red Blood Count 4.09 x10^6/uL (3.50-5.40) Hemoglobin 10.3 g/dL (12.0-15.5) Hematocrit 34.6 % (36.0-47.0) Mean Corpuscular Volume 85 fL (79-100) Mean Corpuscular Hemoglobin 25 pg (25-35) Mean Corpuscular Hemoglobin Concent 30 g/dL (31-37) Red Cell Distribution Width 29.2 % (11.5-14.5) Platelet Count 285 x10^3/uL (140-400) Neutrophils (%) (Auto) 94 % (31-73) Lymphocytes (%) (Auto) 3 % (24-48) Monocytes (%) (Auto) 3 % (0-9) Eosinophils (%) (Auto) 0 % (0-3) Basophils (%) (Auto) 0 % (0-3) Neutrophils # (Auto) 14.7 x10^3uL (1.8-7.7) Lymphocytes # (Auto) 0.4 x10^3/uL (1.0-4.8) Monocytes # (Auto) 0.5 x10^3/uL (0.0-1.1) Eosinophils # (Auto) 0.0 x10^3/uL (0.0-0.7) Basophils # (Auto) 0.0 x10^3/uL (0.0-0.2) Sodium Level 150 mmol/L (136-145) Potassium Level 4.4 mmol/L (3.5-5.1) Chloride Level 113 mmol/L (98-107) Carbon Dioxide Level 26 mmol/L (21-32) Anion Gap 11 (6-14) Blood Urea Nitrogen 57 mg/dL (7-20) Creatinine 1.1 mg/dL (0.6-1.0) Estimated GFR (Cockcroft-Gault) 50.7 Glucose Level 183 mg/dL (70-99) Calcium Level 9.0 mg/dL (8.5-10.1) Test 09/26/17 07:45 09/26/17 12:30 O2 Saturation 96 % (92-99) Arterial Blood pH 7.42 (7.35-7.45) Arterial Blood pCO2 at Patient Temp 40 mmHg (35-46) Arterial Blood pO2 at Patient Temp 87 mmHg (65-108) Arterial Blood HCO3 25 mmol/L (21-28) Arterial Blood Base Excess 1 mmol/L (-3-3) FiO2 50% Glucose (Fingerstick) 186 mg/dL (70-99) Microbiology 09/17/17 Blood Culture - Final, Complete NO GROWTH AFTER 5 DAYS 09/20/17 AFB Specimen Processing Tissue - Final, Resulted 09/20/17 Acid Fast Bacilli Culture, Resulted Pending 09/20/17 Gram Stain - Final, Resulted 09/20/17 Fungal Culture, Resulted Pending 09/20/17 Fungal Culture Result 1, Resulted Pending Medications Current Medications Sodium Chloride 1,000 ml @ 125 mls/hr 1X ONCE IV Last administered on t 15:54; Start 09/17/17 at 15:15; Stop 09/17/17 at 23:14; Status DC Ondansetron HCl (Zofran) 4 mg PRN Q8HRS PRN IV NAUSEA/VOMITING; Start at 16:30; Stop 09/18/17 at 16:29; Status DC Ceftriaxone Sodium 50 ml @ 0 mls/hr 1X ONCE IV Last administered on t 17:33; Start 09/17/17 at 16:45; Stop 09/17/17 at 16:46; Status DC Azithromycin 250 ml @ 250 mls/hr 1X ONCE IV Last administered on 09/17/17 22:38; Start 09/17/17 at 16:30; Stop 09/17/17 at 17:29; Status DC Albuterol/ Ipratropium (Duoneb) 3 ml 1X ONCE NEB Last administered on 17:00; Start 09/17/17 at 16:45; Stop 09/17/17 at 16:46; Status DC Potassium Chloride (Klor-Con) 40 meq 1X ONCE PO Last administered on 16:57; Start 09/17/17 at 16:45; Stop 09/17/17 at 16:46; Status DC Azithromycin (Zithromax) 250 mg DAILY PO Last administered on 09/18/17 10:25 ; Start 09/18/17 at 09:00; Stop 09/19/17 at 10:30; Status DC Ceftriaxone Sodium 1 gm/ Dextrose 50 ml @ 100 mls/hr Q24H IV ; Start 09/17/17 at 17:15; Status UNV Albuterol/ Ipratropium (Duoneb) 3 ml Q4HRS NEB Last administered on 09/26/17 14:57; Start 09/17/17 at 20:00 Ceftriaxone Sodium (Rocephin) 1 gm Q24H IVP Last administered on 09/18/17 17: 55; Start 09/18/17 at 16:00; Stop 09/19/17 at 10:30; Status DC Guaifenesin (Robitussin Dm) 10 ml PRN Q6HRS PRN PO COUGH; Start 09/17/17 at 17 :15 Sodium Chloride 1,000 ml @ 125 mls/hr 1X ONCE IV Last administered on 17:45; Start 09/17/17 at 17:15; Stop 09/17/17 at 22:12; Status DC Info (Do NOT chart on this placeholder) 1 each 1X ONCE MC ; Start 09/17/17 at 19:00; Stop 09/17/17 at 19:01; Status UNV Influenza Virus Vaccine Quadrival (Fluarix Quad [id number] Syringe) 0.5 ml ONCE ONCE VAX IM ; Start 09/17/17 at 21:00; Stop 09/17/17 at 21:01; Status DC Sodium Chloride 1,000 ml @ 130 mls/hr 1X ONCE IV Last administered on 22:31; Start 09/17/17 at 22:30; Stop 09/18/17 at 06:11; Status DC Sodium Bicarbonate 50 meq 1X ONCE IV Last administered on 09/17/17 22:31; Start 09/17/17 at 22:30; Stop 09/17/17 at 22:31; Status DC Alprazolam (Xanax) 1 mg PRN TID PRN PO ANXIETY Last administered on 09/19/17 02:19; Start 09/17/17 at 22:30 Furosemide (Lasix) 20 mg 1X ONCE IVP Last administered on 09/18/17 06:24; Start 09/18/17 at 06:30; Stop 09/18/17 at 06:31; Status DC Potassium Chloride (Klor-Con) 40 meq 1X ONCE PO Last administered on 10:25; Start 09/18/17 at 09:00; Stop 09/18/17 at 09:01; Status DC Iron Sucrose 500 mg/Sodium Chloride 275 ml @ 78.571 mls/ hr 1X ONCE IV Last administered on 09/18/17 10:24; Start 09/18/17 at 09:00; Stop 09/18/17 at 12 :29; Status DC Furosemide (Lasix) 20 mg 1X ONCE IVP Last administered on 09/18/17 10:30; Start 09/18/17 at 10:00; Stop 09/18/17 at 10:22; Status DC Pantoprazole Sodium (Protonix) 40 mg DAILYAC PO Last administered on 10:47; Start 09/18/17 at 11:00; Stop 09/19/17 at 13:41; Status DC Furosemide (Lasix) 20 mg 1X ONCE IVP Last administered on 09/18/17 10:47; Start 09/18/17 at 10:45; Stop 09/18/17 at 10:46; Status DC Potassium Chloride (Klor-Con) 40 meq 1X ONCE PO ; Start 09/18/17 at 11:45; Stop 09/18/17 at 11:46; Status DC Oxycodone/ Acetaminophen (Percocet 5/325) 1 tab PRN Q6HRS PRN PO PAIN Last administered on 09/18/17 13:23; Start 09/18/17 at 12:15 Lorazepam (Ativan) 1 mg PRN Q4HRS PRN IV ANXIETY / AGITATION Last administered on 09/18/17 12:25; Start 09/18/17 at 12:15; Stop 09/18/17 at 13:34; Status DC Fentanyl Citrate (Fentanyl 2ml Vial) 50 mcg PRN Q2HR PRN IV PAIN Last administered on 09/19/17 04:09; Start 09/18/17 at 12:15 Lorazepam (Ativan) 2 mg PRN Q4HRS PRN IV ANXIETY / AGITATION Last administered on 09/23/17 14:29; Start 09/18/17 at 13:30 Quetiapine Fumarate (SEROquel) 25 mg HS PO Last administered on 09/18/17 21: 03; Start 09/18/17 at 21:00; Stop 09/19/17 at 10:35; Status DC Haloperidol Lactate (Haldol) 5 mg PRN Q12HRS PRN IVP AGITATION; Start at 13:45 Lorazepam (Ativan) 1 mg PRN Q4HRS PRN IV ANXIETY / AGITATION; Start 09/19/17 at 10:15; Stop 09/19/17 at 10:18; Status DC Lorazepam (Ativan) 4 mg 1X ONCE IV ; Start 09/19/17 at 10:30; Stop 09/19/17 at 10:31; Status DC Vancomycin HCl (Vanco Per Pharmacy) 1 each PRN DAILY PRN MC SEE COMMENTS Last administered on 09/23/17 12:36; Start 09/19/17 at 10:30; Stop 09/24/17 at 08 :36; Status DC Piperacillin Sod/ Tazobactam Sod (Zosyn Per Pharmacy) 1 each PRN DAILY PRN MC SEE COMMENTS; Start 09/19/17 at 10:30; Stop 09/24/17 at 08:41; Status DC Vancomycin HCl 2 gm/Dextrose 500 ml @ 250 mls/hr 1X ONCE IV Last administered on 09/19/17 14:53; Start 09/19/17 at 11:00; Stop 09/19/17 at 12 :59; Status DC Piperacillin Sod/ Tazobactam Sod (Zosyn) 3.375 gm Q6HRS IVP Last administered on 09/26/17 12:40; Start 09/19/17 at 11:00 Budesonide (Pulmicort) 0.5 mg RTBID NEB Last administered on 09/26/17 07:36; Start 09/19/17 at 20:00 Budesonide (Pulmicort) 0.5 mg 1X ONCE NEB Last administered on 09/19/17 12: 50; Start 09/19/17 at 10:45; Stop 09/19/17 at 10:46; Status DC Pantoprazole Sodium (Protonix Vial) 40 mg DAILYAC IVP Last administered on 10:01; Start 09/19/17 at 11:30 Furosemide (Lasix) 40 mg DAILY IVP ; Start 09/19/17 at 11:00; Stop 09/20/17 at 13:20; Status DC Methylprednisolone Sodium Succinate (SOLU-Medrol 125MG VIAL) 125 mg 1X ONCE IV Last administered on 09/19/17 13:23; Start 09/19/17 at 10:45; Stop at 10:46; Status DC Prednisone (Prednisone) 40 mg DAILY PO ; Start 09/19/17 at 11:00; Stop at 09:02; Status DC Methylprednisolone Sodium Succinate (SOLU-Medrol 125MG VIAL) 125 mg Q8HRS IV Last administered on 09/23/17 05:43; Start 09/19/17 at 14:00; Stop 09/23/17 at 10:40; Status DC Midazolam HCl 100 ml @ 0 mls/hr CONT PRN IV SEE I/O RECORD; Start 09/19/17 at 11:00; Stop 09/19/17 at 12:51; Status DC Midazolam HCl (Versed) 5 mg 1X ONCE IV ; Start 09/19/17 at 11:00; Stop at 11:01; Status DC Fentanyl Citrate (Fentanyl 2ml Vial) 50 mcg 1X ONCE IV ; Start 09/19/17 at 11: 00; Stop 09/19/17 at 11:01; Status DC Midazolam HCl 100 ml @ As Directed STK-MED ONCE IV ; Start 09/19/17 at 10:55; Stop 09/19/17 at 10:56; Status DC Midazolam HCl (Versed) 5 mg STK-MED ONCE .ROUTE ; Start 09/19/17 at 10:55; Stop 09/19/17 at 10:56; Status DC Propofol 100 ml @ As Directed STK-MED ONCE IV ; Start 09/19/17 at 10:59; Stop 09/19/17 at 11:00; Status DC Norepinephrine Bitartrate 250 ml @ As Directed STK-MED ONCE IV ; Start at 10:59; Stop 09/19/17 at 11:00; Status DC Furosemide (Lasix) 20 mg 1X ONCE IVP ; Start 09/19/17 at 11:15; Stop at 11:16; Status DC Vecuronium [place] (Norcuron Bolus) 10 mg STK-MED ONCE IV ; Start 09/19/17 at 11:21; Stop 09/19/17 at 11:22; Status DC Fentanyl Citrate 30 ml @ 0 mls/hr CONT PRN IV PROTOCOL Last administered on 15:08; Start 09/19/17 at 11:30; Stop 09/23/17 at 15:24; Status DC Vecuronium [place] (Norcuron Bolus) 6 mg 1X ONCE IV Last administered on 09/19 11:42; Start 09/19/17 at 11:30; Stop 09/19/17 at 11:39; Status DC Propofol 10 ml @ 0 mls/hr 1X ONCE IV Last administered on 09/19/17 11:30; Start 09/19/17 at 11:30; Stop 09/19/17 at 11:39; Status DC Midazolam HCl 100 ml @ 0 mls/hr CONT PRN IV SEE I/O RECORD Last administered on 09/26/17 12:43; Start 09/19/17 at 11:30 Norepinephrine Bitartrate 250 ml @ 0 mls/hr CONT PRN IV SEE I/O RECORD Last administered on 09/24/17 05:18; Start 09/19/17 at 11:30 Succinylcholine Chloride (Anectine) 100 mg 1X ONCE IV Last administered on 11:42; Start 09/19/17 at 11:30; Stop 09/19/17 at 11:39; Status DC Sodium Bicarbonate 50 meq 1X ONCE IV Last administered on 09/19/17 13:23; Start 09/19/17 at 12:45; Stop 09/19/17 at 12:46; Status DC Sodium Bicarbonate 50 meq 1X ONCE IV Last administered on 09/19/17 13:23; Start 09/19/17 at 12:45; Stop 09/19/17 at 12:46; Status DC Lidocaine/Sodium Bicarbonate (Buffered Lidocaine 1%) 20 ml STK-MED ONCE IJ ; Start 09/19/17 at 13:34; Stop 09/19/17 at 13:35; Status DC Vecuronium [place] (Norcuron Bolus) 10 mg 1X ONCE IV Last administered on 15:05; Start 09/19/17 at 14:00; Stop 09/19/17 at 14:02; Status DC Lidocaine/Sodium Bicarbonate (Buffered Lidocaine 1%) 3 ml 1X ONCE IJ ; Start 09/19/17 at 14:45; Stop 09/19/17 at 14:46; Status DC Vancomycin HCl 1.25 gm/Dextrose 250 ml @ 166.667 mls/hr Q24H IV Last administered on 09/23/17 17:19; Start 09/20/17 at 15:00; Stop 09/24/17 at 08 :35; Status DC Vancomycin HCl 1 each 1X ONCE MC Last administered on 09/21/17 14:30; Start 09/21/17 at 14:30; Stop 09/21/17 at 14:31; Status DC Azithromycin 500 mg/Sodium Chloride 250 ml @ 250 mls/hr Q24H IV Last administered on 09/23/17 17:19; Start 09/19/17 at 16:30; Stop 09/24/17 at 08 :35; Status DC Norepinephrine Bitartrate (Levophed 8mg/ 250ml Premix Drip) 8 mg STK-MED ONCE IV ; Start 09/19/17 at 11:00; Stop 09/20/17 at 08:44; Status DC Midazolam HCl (Versed) 5 mg STK-MED ONCE .ROUTE ; Start 09/19/17 at 11:00; Stop 09/20/17 at 08:44; Status DC Amino Acids/ Glycerin/ Electrolytes 1,000 ml @ 80 mls/hr [id number] IV Last administered on 09/21/17 01:21; Start 09/20/17 at 10:00; Stop 09/22/17 at 07 :02; Status DC Info 1 each PRN DAILY PRN MC SEE COMMENTS; Start 09/20/17 at 10:00; Stop at 12:14; Status DC Furosemide (Lasix) 20 mg 1X ONCE IVP Last administered on 09/20/17 10:21; Start 09/20/17 at 10:15; Stop 09/20/17 at 10:18; Status DC Info 1 each PRN DAILY PRN MC SEE COMMENTS; Start 09/20/17 at 11:00; Status UNV Vecuronium [place] (Norcuron Bolus) 10 mg 1X ONCE IV Last administered on 12:03; Start 09/20/17 at 11:15; Stop 09/20/17 at 11:24; Status DC Atropine Sulfate 0.5 mg STK-MED ONCE .ROUTE ; Start 09/20/17 at 11:47; Stop at 11:48; Status DC Epinephrine HCl (EPINEPHrine SYRINGE) 1 mg STK-MED ONCE .ROUTE ; Start at 11:47; Stop 09/20/17 at 11:48; Status DC Atropine Sulfate 0.5 mg STK-MED ONCE .ROUTE ; Start 09/20/17 at 12:00; Stop at 09:11; Status DC Epinephrine HCl (EPINEPHrine SYRINGE) 1 mg STK-MED ONCE .ROUTE ; Start at 12:00; Stop 09/21/17 at 09:11; Status DC Furosemide (Lasix) 20 mg DAILY IVP ; Start 09/21/17 at 11:15; Stop 09/21/17 at 11:20; Status DC Lorazepam (Ativan) 1 mg PRN Q1HR PRN IV ANXIETY / AGITATION Last administered on 09/23/17 05:49; Start 09/21/17 at 11:15 Albumin Human 250 ml @ 62.5 mls/hr 1X ONCE IV Last administered on 11:57; Start 09/21/17 at 11:30; Stop 09/21/17 at 15:29; Status DC Albumin Human 250 ml @ 62.5 mls/hr 1X ONCE IV Last administered on 14:29; Start 09/21/17 at 11:30; Stop 09/21/17 at 15:29; Status DC Micafungin Sodium 100 mg/Dextrose 100 ml @ 100 mls/hr Q24H IV Last administered on 09/23/17 13:17; Start 09/21/17 at 12:00; Stop 09/24/17 at 08 :35; Status DC Vecuronium [place] (Norcuron Bolus) 4 mg PRN Q4HRS PRN IV AGITATION; Start at 15:00 Dexmedetomidine HCl 200 mcg/ Sodium Chloride 50 ml @ 0 mls/hr CONT PRN IV PER PROTOCOL Last administered on 09/21/17 15:54; Start 09/21/17 at 15:30 Sodium Chloride 500 ml @ 500 mls/hr 1X PRN PRN IV SEE COMMENTS; Start at 15:30 Atropine Sulfate 0.5 mg PRN Q5MIN PRN IV SEE COMMENTS; Start 09/21/17 at 15:30 Propofol 100 ml @ 0 mls/hr CONT PRN IV PER PROTOCOL Last administered on 12:40; Start 09/21/17 at 16:45 Furosemide (Lasix) 20 mg 1X ONCE IVP Last administered on 09/22/17 09:41; Start 09/22/17 at 10:15; Stop 09/22/17 at 10:16; Status DC Chlorhexidine Gluconate (Peridex) 15 ml BID MM Last administered on 09/26/17 10:01; Start 09/22/17 at 21:00 Furosemide (Lasix) 20 mg 1X ONCE IVP Last administered on 09/22/17 17:55; Start 09/22/17 at 18:00; Stop 09/22/17 at 18:01; Status DC Furosemide (Lasix) 20 mg DAILY IVP Last administered on 09/23/17 13:16; Start 09/23/17 at 11:30; Stop 09/24/17 at 08:40; Status DC Methylprednisolone Sodium Succinate (SOLU-Medrol 125MG VIAL) 80 mg Q8HRS IV Last administered on 09/26/17 14:11; Start 09/23/17 at 14:00 Fentanyl Citrate 55 ml @ 0 mls/hr CONT PRN PRN IV PER PROTOCOL Last administered on 09/25/17 02:41; Start 09/23/17 at 12:15 Dextrose 1,000 ml @ 25 mls/hr Q24H IV Last administered on 09/26/17t 12:41; Start 09/23/17 at 11:45 Enoxaparin Sodium (Lovenox Per Pharmacy Prophylaxis Dosing) 1 each PRN DAILY PRN MC SEE COMMENTS; Start 09/23/17 at 16:30; Stop 09/24/17 at 08:41; Status DC Enoxaparin Sodium (Lovenox 40mg Syringe) 40 mg Q24H SQ ; Start 09/23/17 at 17: 00 Bisacodyl (Dulcolax Tab) 5 mg PRN DAILY PRN PO CONSTIPATION; Start 09/24/17 at 09:30 Insulin Aspart (NovoLOG) 0-5 UNITS Q6HRS SQ Last administered on 09/26/17t 12: 35; Start 09/25/17 at 18:00 Dextrose (Dextrose 50%-Water Syringe) 12.5 gm PRN Q15MIN PRN IV SEE COMMENTS; Start 09/25/17 at 12:30 Active Scripts Active Reported Gabapentin 300 Mg Capsule 300 Mg PO TID Cymbalta (Duloxetine Hcl) 60 Mg Capsule. 1 Cap PO BID Hydrochlorothiazide Tablet (Hydrochlorothiazide) 25 Mg Tablet 1 Tab PO DAILY Xanax (Alprazolam) 1 Mg Tablet 1 Tab PO TID PRN Vitals/I & O Vital Sign - Last 24 Hours 09/25/17 09/25/17 09/25/17 09/25/17 15:42 16:00 16:00 17:00 Pulse 62 77 Resp 24 27 B/P (MAP) 90/57 (68) 108/65 (79) Pulse Ox 98 100 97 O2 Delivery Ventilator Mechanical Ventilator Ventilator Ventilator 09/25/17 09/25/17 09/25/17 09/25/17 17:55 18:00 19:00 19:37 Pulse 74 72 Resp 21 22 B/P (MAP) 103/63 (76) 99/62 (74) Pulse Ox 97 98 98 97 O2 Delivery Ventilator Ventilator Ventilator Ventilator 09/25/17 09/25/17 09/25/17 09/25/17 20:00 20:00 21:00 22:00 Temp 99.3 99.3 Pulse 79 70 69 Resp 26 24 23 B/P (MAP) 117/80 (92) 106/63 (77) 125/72 (89) Pulse Ox 98 98 99 O2 Delivery Mechanical Ventilator Ventilator Ventilator Ventilator 09/25/17 09/25/17 09/26/17 09/26/17 23:00 23:22 00:00 00:00 Temp 97.7 97.7 Pulse 66 66 Resp 23 24 B/P (MAP) 101/70 (80) 97/67 (77) Pulse Ox 100 97 100 O2 Delivery Ventilator Ventilator Mechanical Ventilator Ventilator 09/26/17 09/26/17 09/26/17 09/26/17 01:00 01:39 02:00 03:00 Pulse 62 110 92 Resp 24 33 25 B/P (MAP) 100/67 (78) 134/87 (103) 150/94 (112) Pulse Ox 99 100 100 100 O2 Delivery Ventilator Ventilator Ventilator Ventilator 09/26/17 09/26/17 09/26/17 09/26/17 03:52 04:00 04:00 05:00 Temp 98.2 98.2 Pulse 110 115 Resp 28 29 B/P (MAP) 102/68 (79) 120/82 (95) Pulse Ox 100 100 100 O2 Delivery Ventilator Ventilator Mechanical Ventilator Ventilator 09/26/17 09/26/17 09/26/17 09/26/17 05:38 06:00 07:00 07:36 Temp 98.5 98.5 Pulse 90 73 Resp 25 24 B/P (MAP) 115/71 (86) 95/57 (70) Pulse Ox 100 98 98 98 O2 Delivery Ventilator Ventilator Ventilator Ventilator 09/26/17 09/26/17 09/26/17 09/26/17 08:00 08:00 08:28 09:00 Pulse 67 87 Resp 27 B/P (MAP) 94/62 (73) 117/77 (90) Pulse Ox 99 100 99 O2 Delivery Ventilator Mechanical Ventilator Ventilator Ventilator 09/26/17 09/26/17 09/26/17 09/26/17 10:00 11:00 11:13 12:00 Pulse 82 107 76 Resp 24 24 B/P (MAP) 113/73 (86) 119/83 (95) 108/70 (83) Pulse Ox 99 99 98 99 O2 Delivery Ventilator Ventilator Ventilator Ventilator 09/26/17 09/26/17 09/26/17 09/26/17 12:00 12:43 13:00 14:00 Pulse 73 84 Resp 23 25 B/P (MAP) 97/61 (73) 91/60 (70) Pulse Ox 99 98 99 O2 Delivery Mechanical Ventilator Ventilator Ventilator Ventilator 09/26/17 14:57 Pulse Ox 98 O2 Delivery Ventilator Intake and Output 09/25/17 09/25/17 09/26/17 15:00 23:00 07:00 Intake Total 150 ml 1602 ml 1766 ml Output Total 555 ml 385 ml 650 ml Balance -405 ml 1217 ml 1116 ml DENILSON KRISHNAMURTHY III DO Sep 26, 2017 15:15
[2017-09-26] MEDS: ENOXAPARIN 40 MG/0.4 ML SYRINGE. SQ SCH (15:36)
--- NOTE | 2017-09-26 15:46 | PDOC ---
PULMONARY PROGRESS NOTES Subjective AC mode, intubated 09/19, sedated VT DECREASED TO 400 YESTERDAY Vitals Vital Signs Date Time Temp Pulse Resp B/P (MAP) Pulse Ox O2 Delivery O2 Flow Rate FiO2 09/26/17 15:00 90 24 112/68 (83) 99 Ventilator 09/26/17 07:00 98.5 98.5 09/25/17 08:00 Lungs: Clear, Other (No wheezes or crackles ) Cardiovascular: S1, S2 Abdomen: Soft Extremities: No Edema Skin: Warm Labs Laboratory Tests Test 09/25/17 08:00 09/25/17 11:50 09/25/17 17:25 09/26/17 00:14 O2 Saturation 96 % (92-99) Arterial Blood pH 7.43 (7.35-7.45) Arterial Blood pCO2 at Patient Temp 36 mmHg (35-46) Arterial Blood pO2 at Patient Temp 83 mmHg (65-108) Arterial Blood HCO3 23 mmol/L (21-28) Arterial Blood Base Excess -1 mmol/L (-3-3) FiO2 50 White Blood Count 11.8 x10^3/uL (4.0-11.0) Red Blood Count 3.72 x10^6/uL (3.50-5.40) Hemoglobin 9.3 g/dL (12.0-15.5) Hematocrit 31.0 % (36.0-47.0) Mean Corpuscular Volume 83 fL (79-100) Mean Corpuscular Hemoglobin 25 pg (25-35) Mean Corpuscular Hemoglobin Concent 30 g/dL (31-37) Red Cell Distribution Width 27.6 % (11.5-14.5) Platelet Count 251 x10^3/uL (140-400) Sodium Level 148 mmol/L (136-145) Potassium Level 4.2 mmol/L (3.5-5.1) Chloride Level 115 mmol/L (98-107) Carbon Dioxide Level 27 mmol/L (21-32) Anion Gap 6 (6-14) Blood Urea Nitrogen 56 mg/dL (7-20) Creatinine 1.3 mg/dL (0.6-1.0) Estimated GFR (Cockcroft-Gault) 41.8 Glucose Level 206 mg/dL (70-99) Calcium Level 8.4 mg/dL (8.5-10.1) Magnesium Level 2.7 mg/dL (1.8-2.4) Glucose (Fingerstick) 199 mg/dL (70-99) 181 mg/dL (70-99) Test 09/26/17 05:40 09/26/17 06:22 09/26/17 07:45 09/26/17 12:30 White Blood Count 15.7 x10^3/uL (4.0-11.0) Red Blood Count 4.09 x10^6/uL (3.50-5.40) Hemoglobin 10.3 g/dL (12.0-15.5) Hematocrit 34.6 % (36.0-47.0) Mean Corpuscular Volume 85 fL (79-100) Mean Corpuscular Hemoglobin 25 pg (25-35) Mean Corpuscular Hemoglobin Concent 30 g/dL (31-37) Red Cell Distribution Width 29.2 % (11.5-14.5) Platelet Count 285 x10^3/uL (140-400) Neutrophils (%) (Auto) 94 % (31-73) Lymphocytes (%) (Auto) 3 % (24-48) Monocytes (%) (Auto) 3 % (0-9) Eosinophils (%) (Auto) 0 % (0-3) Basophils (%) (Auto) 0 % (0-3) Neutrophils # (Auto) 14.7 x10^3uL (1.8-7.7) Lymphocytes # (Auto) 0.4 x10^3/uL (1.0-4.8) Monocytes # (Auto) 0.5 x10^3/uL (0.0-1.1) Eosinophils # (Auto) 0.0 x10^3/uL (0.0-0.7) Basophils # (Auto) 0.0 x10^3/uL (0.0-0.2) Sodium Level 150 mmol/L (136-145) Potassium Level 4.4 mmol/L (3.5-5.1) Chloride Level 113 mmol/L (98-107) Carbon Dioxide Level 26 mmol/L (21-32) Anion Gap 11 (6-14) Blood Urea Nitrogen 57 mg/dL (7-20) Creatinine 1.1 mg/dL (0.6-1.0) Estimated GFR (Cockcroft-Gault) 50.7 Glucose Level 183 mg/dL (70-99) Calcium Level 9.0 mg/dL (8.5-10.1) Glucose (Fingerstick) 183 mg/dL (70-99) 186 mg/dL (70-99) O2 Saturation 96 % (92-99) Arterial Blood pH 7.42 (7.35-7.45) Arterial Blood pCO2 at Patient Temp 40 mmHg (35-46) Arterial Blood pO2 at Patient Temp 87 mmHg (65-108) Arterial Blood HCO3 25 mmol/L (21-28) Arterial Blood Base Excess 1 mmol/L (-3-3) FiO2 50% Laboratory Tests Test 09/25/17 17:25 09/26/17 00:14 09/26/17 05:40 09/26/17 06:22 Glucose (Fingerstick) 199 mg/dL (70-99) 181 mg/dL (70-99) 183 mg/dL (70-99) White Blood Count 15.7 x10^3/uL (4.0-11.0) Red Blood Count 4.09 x10^6/uL (3.50-5.40) Hemoglobin 10.3 g/dL (12.0-15.5) Hematocrit 34.6 % (36.0-47.0) Mean Corpuscular Volume 85 fL (79-100) Mean Corpuscular Hemoglobin 25 pg (25-35) Mean Corpuscular Hemoglobin Concent 30 g/dL (31-37) Red Cell Distribution Width 29.2 % (11.5-14.5) Platelet Count 285 x10^3/uL (140-400) Neutrophils (%) (Auto) 94 % (31-73) Lymphocytes (%) (Auto) 3 % (24-48) Monocytes (%) (Auto) 3 % (0-9) Eosinophils (%) (Auto) 0 % (0-3) Basophils (%) (Auto) 0 % (0-3) Neutrophils # (Auto) 14.7 x10^3uL (1.8-7.7) Lymphocytes # (Auto) 0.4 x10^3/uL (1.0-4.8) Monocytes # (Auto) 0.5 x10^3/uL (0.0-1.1) Eosinophils # (Auto) 0.0 x10^3/uL (0.0-0.7) Basophils # (Auto) 0.0 x10^3/uL (0.0-0.2) Sodium Level 150 mmol/L (136-145) Potassium Level 4.4 mmol/L (3.5-5.1) Chloride Level 113 mmol/L (98-107) Carbon Dioxide Level 26 mmol/L (21-32) Anion Gap 11 (6-14) Blood Urea Nitrogen 57 mg/dL (7-20) Creatinine 1.1 mg/dL (0.6-1.0) Estimated GFR (Cockcroft-Gault) 50.7 Glucose Level 183 mg/dL (70-99) Calcium Level 9.0 mg/dL (8.5-10.1) Test 09/26/17 07:45 09/26/17 12:30 O2 Saturation 96 % (92-99) Arterial Blood pH 7.42 (7.35-7.45) Arterial Blood pCO2 at Patient Temp 40 mmHg (35-46) Arterial Blood pO2 at Patient Temp 87 mmHg (65-108) Arterial Blood HCO3 25 mmol/L (21-28) Arterial Blood Base Excess 1 mmol/L (-3-3) FiO2 50% Glucose (Fingerstick) 186 mg/dL (70-99) Medications Active Scripts Medications Dose Route/Sig Max Daily Dose Days Date Category Gabapentin 300 Mg Capsule 300 Mg PO TID 09/18/17 Reported Cymbalta (Duloxetine Hcl) 60 Mg Capsule.dr 1 Cap PO BID 09/18/17 Reported Hydrochlorothiazide Tablet (Hydrochlorothiazide) 25 Mg Tablet 1 Tab PO DAILY 09/17/17 Reported Xanax (Alprazolam) 1 Mg Tablet 1 Tab PO TID PRN 09/17/17 Reported Comments CXR REVIEWED NO CHANGE Impression . 1. Acute hypoxic respiratory failure/ARDS 2. Anemia 3. COPD 4. Acute renal failure 5. Sepsis with hypotension 6. S/P Bronch so far BAL negative Plan . CXR ABOUT THE SAME, OXYGENATION IS BETTER WILL TRY TO START WEANING IN COUPLE OF DAYS MAY NEED SOME FREE WATER NA IS UP WILL PROCEED WITH SEDATION EMIL 1. SEDATE NOTED ANCA NEGATIVE 2. AC mode 3. ANTIBX PER ID Influenza screen neg. Micafungin added for budding yeast on BAL. 4. CT chest with diffuse parenchymal GG infiltrates 5. FOLLOW NEPHRO INPUT 6. Hematology following for workup of anemia. 7. TUBE FEED 8. ON STEROIDS 9. [place] PRBC prn RAKEL MCKENNA MD Sep 26, 2017 15:46
[2017-09-26] MEDS: fentaNYL HIGH DOSE PCA 55 ML IV PRN (23:21)
[2017-09-27] VITALS (24 sets, daily range): BP systolic 86–148; BP diastolic 52–87
[2017-09-27] MEDS: MIDAZOLAM 100MG/100ML PREMIX 100 ML IV PRN (00:40)
[2017-09-27] MEDS: PROPOFOL 100 ML IV PRN ×3 (02:37→20:52)
[2017-09-27] MEDS: IPRATRPIUM/ALBUTEROL 0.5/2.5MG 3 ML NEBU. NEB SCH ×6 (03:15→23:53)
[2017-09-27] MEDS: PIPERACILLIN/TAZO IV Push 3.375 GM VIAL. IVP SCH ×3 (05:43→17:58)
[2017-09-27] MEDS: methylPREDNISolone SOD SUCC PF 125 MG/2 ML VIAL. IV SCH ×3 (05:43→23:24)
[2017-09-27] MEDS: INSULIN ASPART 300 UNITS/3 ML INSULN.PEN SQ SCH ×3 (05:45→18:05)
[2017-09-27 06:36] LABS: CALCIUM 8.3 mg/dL (8.5-10.1); GFR 56.6; POTASSIUM 4.5 mmol/L (3.5-5.1)
[2017-09-27 07:00] LABS: BASO % 0 % (0-3); EOS % 0 % (0-3); HEMOGLOBIN 9.3 g/dL (12.0-15.5); LYMPH # 0.4 x10^3/uL (1.0-4.8); LYMPH % 4 % (24-48); MEAN CORPUSCULAR HEMOGLOBIN 25 pg (25-35); MEAN CORPUSCULAR HGB CONC 30 g/dL (31-37); MEAN CORPUSCULAR VOLUME 84 fL (79-100); MONO % 3 % (0-9); NEUT % 93 % (31-73); PLATELET COUNT 282 x10^3/uL (140-400); RED BLOOD COUNT 3.69 x10^6/uL (3.50-5.40); RED CELL DISTRIBUTION WIDTH 28.9 % (11.5-14.5)
[2017-09-27] MEDS: BUDESONIDE 0.5 MG/2 ML NEBU. NEB SCH ×2 (07:31→19:50)
[2017-09-27 07:34] LABS: HCO3 ABG 24 mmol/L (21-28); PCO2 ABG 39 mmHg (35-46); PH ABG 7.41 (7.35-7.45); PO2 ABG 91 mmHg (65-108); SAT O2 ABG 96 % (92-99)
--- NOTE | 2017-09-27 07:40 | PDOC ---
Infectious Disease Note Subjective Subjective Remains intubated, FiO2 50% Sedated BP stable No fever ROS ROS unable to do Vital Sign Vital Signs Vital Signs Date Time Temp Pulse Resp B/P (MAP) Pulse Ox O2 Delivery O2 Flow Rate FiO2 09/27/17 07:21 98 Ventilator 09/27/17 06:00 69 24 105/67 (80) 09/27/17 04:00 98.1 98.1 Physical Exam PHYSICAL EXAM GENERAL: sedated on vent HEENT: PERRL, OC/OP NECK: Supple, no JVD, no LN LUNGS: Clear HEART: S1S2, no gallop, no murmur ABD: Soft, NT, no organomegaly, no rebound EXT: No edema, no cyanosis [employer]: sedated on vent SKIN: No rash IV: ok Labs Lab Laboratory Tests Test 09/26/17 07:45 09/26/17 12:30 09/26/17 17:12 09/26/17 23:51 O2 Saturation 96 % (92-99) Arterial Blood pH 7.42 (7.35-7.45) Arterial Blood pCO2 at Patient Temp 40 mmHg (35-46) Arterial Blood pO2 at Patient Temp 87 mmHg (65-108) Arterial Blood HCO3 25 mmol/L (21-28) Arterial Blood Base Excess 1 mmol/L (-3-3) FiO2 50% Glucose (Fingerstick) 186 mg/dL (70-99) 179 mg/dL (70-99) 181 mg/dL (70-99) Test 09/27/17 05:39 09/27/17 06:00 Glucose (Fingerstick) 186 mg/dL (70-99) White Blood Count 12.0 x10^3/uL (4.0-11.0) Red Blood Count 3.69 x10^6/uL (3.50-5.40) Hemoglobin 9.3 g/dL (12.0-15.5) Hematocrit 31.0 % (36.0-47.0) Mean Corpuscular Volume 84 fL (79-100) Mean Corpuscular Hemoglobin 25 pg (25-35) Mean Corpuscular Hemoglobin Concent 30 g/dL (31-37) Red Cell Distribution Width 28.9 % (11.5-14.5) Platelet Count 282 x10^3/uL (140-400) Neutrophils (%) (Auto) 93 % (31-73) Lymphocytes (%) (Auto) 4 % (24-48) Monocytes (%) (Auto) 3 % (0-9) Eosinophils (%) (Auto) 0 % (0-3) Basophils (%) (Auto) 0 % (0-3) Neutrophils # (Auto) 11.2 x10^3uL (1.8-7.7) Lymphocytes # (Auto) 0.4 x10^3/uL (1.0-4.8) Monocytes # (Auto) 0.3 x10^3/uL (0.0-1.1) Eosinophils # (Auto) 0.0 x10^3/uL (0.0-0.7) Basophils # (Auto) 0.0 x10^3/uL (0.0-0.2) Sodium Level 147 mmol/L (136-145) Potassium Level 4.5 mmol/L (3.5-5.1) Chloride Level 113 mmol/L (98-107) Carbon Dioxide Level 27 mmol/L (21-32) Anion Gap 7 (6-14) Blood Urea Nitrogen 53 mg/dL (7-20) Creatinine 1.0 mg/dL (0.6-1.0) Estimated GFR (Cockcroft-Gault) 56.6 Glucose Level 196 mg/dL (70-99) Calcium Level 8.3 mg/dL (8.5-10.1) Micro culture neg Objective Assessment Acute Resp failure - intubated Strep/Legionella antigens - neg. S/p Bronch 09/20 , no growth to date Hypotension, now off Levophed Lactic normal/Procalcitonin mild - elevation Pulm infiltrates - ARDS ? if transfusions could be playing into resp failure Anemia - on arrival s/p PRBCs - GI following Leukocytosis - on steroids now and S/p PRBCs GEO -stable Transaminitis - ? reactive COPD H/o Leg wounds - no recent abx per for wounds - last amox 6 weeks ago Influenza vaccine 09/17 - given Plan Plan of Care cont zosyn, Resp viral panel/Silver stain was ordered but cancelled by Pathology F/u Mycoplasma 09/20 pending Parvo (with anemia although no rash or joint pains) ANCA pending F/u labs and cults elevated wbc likely sec to steroids cont supportive care likely will need trach CHRIS RODRIGUEZ MD Sep 27, 2017 07:39
[2017-09-27] MEDS: PANTOPRAZOLE IV PUSH 40 MG VIAL. IVP SCH (08:12)
[2017-09-27] MEDS: CHLORHEXIDINE 0.12% 15 ML MOUTHWASH. MM SCH ×2 (08:14→20:52)
--- NOTE | 2017-09-27 08:40 | RAD ---
Single view chest History:RESPIRATORY FAILURE; ARDS An AP view of the chest is submitted. Comparison: 09/26/2017. Findings: Endotracheal tube tip terminates about 2 cm from radha. Enteric catheter courses into the stomach, not fully included. Right internal jugular venous catheter tip is near the cavoatrial junction. No pneumothorax is identified. There is again opacity at the left lung base with obscured left hemidiaphragm and air bronchograms not convincingly changed. There is other mild interstitial opacity bilaterally which is stable. Impression: 1. There is similar left base airspace opacity and probable at least small left pleural effusion. Other interstitial opacity bilaterally is stable.
--- NOTE | 2017-09-27 11:47 | PDOC ---
PROGRESS NOTES Subjective Subjective SEEN IN FOLLOW UP OF ARF IN SETTING OF PNEUMONIA WITH ARDS Objective Objective Vital Signs Date Time Temp Pulse Resp B/P (MAP) Pulse Ox O2 Delivery O2 Flow Rate FiO2 09/27/17 10:30 97 Ventilator 09/27/17 06:00 69 24 105/67 (80) 09/27/17 04:00 98.1 98.1 09/25/17 08:00 Intake and Output 09/27/17 07:00 Intake Total 4002 ml Output Total 1625 ml Balance 2377 ml IV Total 935 ml Tube Feeding 1991 ml Other 1076 ml Output Urine Total 1625 ml Physical Exam Abdomen: Normal bowel sounds, Soft, No tenderness, No hepatosplenomegaly, No masses Heart: Regular rate, Normal S1, Normal S2, No murmurs, Gallops Extremities: Other (2+ BLE EDEMA) General: Other (SEDATED) Lungs: Clear to auscultation, Normal air movement, Other (ON VENT SUPPORT) Neuro: Other (SEDATED) Psych/Mental Status: Other (SEDATED) Diagnosis RESPIRATORY FAILURE: Acute, Other (PNEUMONIA WITH ARDS) RENAL FAILURE: Acute (Acute tubular necrosis) Assessment Assessment Problems Medical Problems: (1) Dyspnea Status: Acute (2) Hypoalbuminemia Status: Acute (3) Metabolic acidosis Status: Acute (4) Pneumonia Status: Acute Plan Plan of Care RENAL FUNCTION IS IMPROVING DAILY, BUT SLOWLY. FLUID BALANCE IS + WITH BLE EDEMA BUT NOT COMPROMISING HER RESP STATUS. IN PART FROM IMMOBILITY. SERUM SODIM IS ELEVATED DUE TO FREE WATER DEFICIT, BUT NOT PROBLEMATIC AND DO NOT WANT TO PUSH FLUIDS AGGRESSIVELY DUE TO ARDS. CONT TO FOLLOW FLUID BALANCE AND SODIUM. CONT ANTIBIOTICS AND RESP RX. DISCUSSED WITH HER Comment Review of Relevant I have reviewed the following items tha (where applicable) has been applied. Labs Laboratory Tests Test 09/25/17 11:50 09/25/17 17:25 09/26/17 00:14 09/26/17 05:40 White Blood Count 11.8 x10^3/uL (4.0-11.0) 15.7 x10^3/uL (4.0-11.0) Red Blood Count 3.72 x10^6/uL (3.50-5.40) 4.09 x10^6/uL (3.50-5.40) Hemoglobin 9.3 g/dL (12.0-15.5) 10.3 g/dL (12.0-15.5) Hematocrit 31.0 % (36.0-47.0) 34.6 % (36.0-47.0) Mean Corpuscular Volume 83 fL (79-100) 85 fL (79-100) Mean Corpuscular Hemoglobin 25 pg (25-35) 25 pg (25-35) Mean Corpuscular Hemoglobin Concent 30 g/dL (31-37) 30 g/dL (31-37) Red Cell Distribution Width 27.6 % (11.5-14.5) 29.2 % (11.5-14.5) Platelet Count 251 x10^3/uL (140-400) 285 x10^3/uL (140-400) Sodium Level 148 mmol/L (136-145) 150 mmol/L (136-145) Potassium Level 4.2 mmol/L (3.5-5.1) 4.4 mmol/L (3.5-5.1) Chloride Level 115 mmol/L (98-107) 113 mmol/L (98-107) Carbon Dioxide Level 27 mmol/L (21-32) 26 mmol/L (21-32) Anion Gap 6 (6-14) 11 (6-14) Blood Urea Nitrogen 56 mg/dL (7-20) 57 mg/dL (7-20) Creatinine 1.3 mg/dL (0.6-1.0) 1.1 mg/dL (0.6-1.0) Estimated GFR (Cockcroft-Gault) 41.8 50.7 Glucose Level 206 mg/dL (70-99) 183 mg/dL (70-99) Calcium Level 8.4 mg/dL (8.5-10.1) 9.0 mg/dL (8.5-10.1) Magnesium Level 2.7 mg/dL (1.8-2.4) Glucose (Fingerstick) 199 mg/dL (70-99) 181 mg/dL (70-99) Neutrophils (%) (Auto) 94 % (31-73) Lymphocytes (%) (Auto) 3 % (24-48) Monocytes (%) (Auto) 3 % (0-9) Eosinophils (%) (Auto) 0 % (0-3) Basophils (%) (Auto) 0 % (0-3) Neutrophils # (Auto) 14.7 x10^3uL (1.8-7.7) Lymphocytes # (Auto) 0.4 x10^3/uL (1.0-4.8) Monocytes # (Auto) 0.5 x10^3/uL (0.0-1.1) Eosinophils # (Auto) 0.0 x10^3/uL (0.0-0.7) Basophils # (Auto) 0.0 x10^3/uL (0.0-0.2) Test 09/26/17 06:22 09/26/17 07:45 09/26/17 12:30 09/26/17 17:12 Glucose (Fingerstick) 183 mg/dL (70-99) 186 mg/dL (70-99) 179 mg/dL (70-99) O2 Saturation 96 % (92-99) Arterial Blood pH 7.42 (7.35-7.45) Arterial Blood pCO2 at Patient Temp 40 mmHg (35-46) Arterial Blood pO2 at Patient Temp 87 mmHg (65-108) Arterial Blood HCO3 25 mmol/L (21-28) Arterial Blood Base Excess 1 mmol/L (-3-3) FiO2 50% Test 09/26/17 23:51 09/27/17 05:39 09/27/17 06:00 Glucose (Fingerstick) 181 mg/dL (70-99) 186 mg/dL (70-99) White Blood Count 12.0 x10^3/uL (4.0-11.0) Red Blood Count 3.69 x10^6/uL (3.50-5.40) Hemoglobin 9.3 g/dL (12.0-15.5) Hematocrit 31.0 % (36.0-47.0) Mean Corpuscular Volume 84 fL (79-100) Mean Corpuscular Hemoglobin 25 pg (25-35) Mean Corpuscular Hemoglobin Concent 30 g/dL (31-37) Red Cell Distribution Width 28.9 % (11.5-14.5) Platelet Count 282 x10^3/uL (140-400) Neutrophils (%) (Auto) 93 % (31-73) Lymphocytes (%) (Auto) 4 % (24-48) Monocytes (%) (Auto) 3 % (0-9) Eosinophils (%) (Auto) 0 % (0-3) Basophils (%) (Auto) 0 % (0-3) Neutrophils # (Auto) 11.2 x10^3uL (1.8-7.7) Lymphocytes # (Auto) 0.4 x10^3/uL (1.0-4.8) Monocytes # (Auto) 0.3 x10^3/uL (0.0-1.1) Eosinophils # (Auto) 0.0 x10^3/uL (0.0-0.7) Basophils # (Auto) 0.0 x10^3/uL (0.0-0.2) Sodium Level 147 mmol/L (136-145) Potassium Level 4.5 mmol/L (3.5-5.1) Chloride Level 113 mmol/L (98-107) Carbon Dioxide Level 27 mmol/L (21-32) Anion Gap 7 (6-14) Blood Urea Nitrogen 53 mg/dL (7-20) Creatinine 1.0 mg/dL (0.6-1.0) Estimated GFR (Cockcroft-Gault) 56.6 Glucose Level 196 mg/dL (70-99) Calcium Level 8.3 mg/dL (8.5-10.1) Laboratory Tests Test 09/26/17 12:30 09/26/17 17:12 09/26/17 23:51 09/27/17 05:39 Glucose (Fingerstick) 186 mg/dL (70-99) 179 mg/dL (70-99) 181 mg/dL (70-99) 186 mg/dL (70-99) Test 09/27/17 06:00 White Blood Count 12.0 x10^3/uL (4.0-11.0) Red Blood Count 3.69 x10^6/uL (3.50-5.40) Hemoglobin 9.3 g/dL (12.0-15.5) Hematocrit 31.0 % (36.0-47.0) Mean Corpuscular Volume 84 fL (79-100) Mean Corpuscular Hemoglobin 25 pg (25-35) Mean Corpuscular Hemoglobin Concent 30 g/dL (31-37) Red Cell Distribution Width 28.9 % (11.5-14.5) Platelet Count 282 x10^3/uL (140-400) Neutrophils (%) (Auto) 93 % (31-73) Lymphocytes (%) (Auto) 4 % (24-48) Monocytes (%) (Auto) 3 % (0-9) Eosinophils (%) (Auto) 0 % (0-3) Basophils (%) (Auto) 0 % (0-3) Neutrophils # (Auto) 11.2 x10^3uL (1.8-7.7) Lymphocytes # (Auto) 0.4 x10^3/uL (1.0-4.8) Monocytes # (Auto) 0.3 x10^3/uL (0.0-1.1) Eosinophils # (Auto) 0.0 x10^3/uL (0.0-0.7) Basophils # (Auto) 0.0 x10^3/uL (0.0-0.2) Sodium Level 147 mmol/L (136-145) Potassium Level 4.5 mmol/L (3.5-5.1) Chloride Level 113 mmol/L (98-107) Carbon Dioxide Level 27 mmol/L (21-32) Anion Gap 7 (6-14) Blood Urea Nitrogen 53 mg/dL (7-20) Creatinine 1.0 mg/dL (0.6-1.0) Estimated GFR (Cockcroft-Gault) 56.6 Glucose Level 196 mg/dL (70-99) Calcium Level 8.3 mg/dL (8.5-10.1) Microbiology 09/17/17 Blood Culture - Final, Complete NO GROWTH AFTER 5 DAYS 09/20/17 AFB Specimen Processing Tissue - Final, Resulted 09/20/17 Acid Fast Bacilli Culture, Resulted Pending 09/20/17 Gram Stain - Final, Resulted 09/20/17 Fungal Culture - Preliminary, Resulted 09/20/17 Fungal Culture Result 1 - Preliminary, Resulted Medications Current Medications Sodium Chloride 1,000 ml @ 125 mls/hr 1X ONCE IV Last administered on t 15:54; Start 09/17/17 at 15:15; Stop 09/17/17 at 23:14; Status DC Ondansetron HCl (Zofran) 4 mg PRN Q8HRS PRN IV NAUSEA/VOMITING; Start at 16:30; Stop 09/18/17 at 16:29; Status DC Ceftriaxone Sodium 50 ml @ 0 mls/hr 1X ONCE IV Last administered on 17:33; Start 09/17/17 at 16:45; Stop 09/17/17 at 16:46; Status DC Azithromycin 250 ml @ 250 mls/hr 1X ONCE IV Last administered on 09/17/17 22:38; Start 09/17/17 at 16:30; Stop 09/17/17 at 17:29; Status DC Albuterol/ Ipratropium (Duoneb) 3 ml 1X ONCE NEB Last administered on 17:00; Start 09/17/17 at 16:45; Stop 09/17/17 at 16:46; Status DC Potassium Chloride (Klor-Con) 40 meq 1X ONCE PO Last administered on 16:57; Start 09/17/17 at 16:45; Stop 09/17/17 at 16:46; Status DC Azithromycin (Zithromax) 250 mg DAILY PO Last administered on 09/18/17 10:25 ; Start 09/18/17 at 09:00; Stop 09/19/17 at 10:30; Status DC Ceftriaxone Sodium 1 gm/ Dextrose 50 ml @ 100 mls/hr Q24H IV ; Start 09/17/17 at 17:15; Status UNV Albuterol/ Ipratropium (Duoneb) 3 ml Q4HRS NEB Last administered on 09/27/17 10:30; Start 09/17/17 at 20:00 Ceftriaxone Sodium (Rocephin) 1 gm Q24H IVP Last administered on 09/18/17 17: 55; Start 09/18/17 at 16:00; Stop 09/19/17 at 10:30; Status DC Guaifenesin (Robitussin Dm) 10 ml PRN Q6HRS PRN PO COUGH; Start 09/17/17 at 17 :15 Sodium Chloride 1,000 ml @ 125 mls/hr 1X ONCE IV Last administered on 17:45; Start 09/17/17 at 17:15; Stop 09/17/17 at 22:12; Status DC Info (Do NOT chart on this placeholder) 1 each 1X ONCE MC ; Start 09/17/17 at 19:00; Stop 09/17/17 at 19:01; Status UNV Influenza Virus Vaccine Quadrival (Fluarix Quad [id number] Syringe) 0.5 ml ONCE ONCE VAX IM ; Start 09/17/17 at 21:00; Stop 09/17/17 at 21:01; Status DC Sodium Chloride 1,000 ml @ 130 mls/hr 1X ONCE IV Last administered on 22:31; Start 09/17/17 at 22:30; Stop 09/18/17 at 06:11; Status DC Sodium Bicarbonate 50 meq 1X ONCE IV Last administered on 09/17/17 22:31; Start 09/17/17 at 22:30; Stop 09/17/17 at 22:31; Status DC Alprazolam (Xanax) 1 mg PRN TID PRN PO ANXIETY Last administered on 09/19/17 02:19; Start 09/17/17 at 22:30 Furosemide (Lasix) 20 mg 1X ONCE IVP Last administered on 09/18/17 06:24; Start 09/18/17 at 06:30; Stop 09/18/17 at 06:31; Status DC Potassium Chloride (Klor-Con) 40 meq 1X ONCE PO Last administered on 10:25; Start 09/18/17 at 09:00; Stop 09/18/17 at 09:01; Status DC Iron Sucrose 500 mg/Sodium Chloride 275 ml @ 78.571 mls/ hr 1X ONCE IV Last administered on 09/18/17 10:24; Start 09/18/17 at 09:00; Stop 09/18/17 at 12 :29; Status DC Furosemide (Lasix) 20 mg 1X ONCE IVP Last administered on 09/18/17 10:30; Start 09/18/17 at 10:00; Stop 09/18/17 at 10:22; Status DC Pantoprazole Sodium (Protonix) 40 mg DAILYAC PO Last administered on 10:47; Start 09/18/17 at 11:00; Stop 09/19/17 at 13:41; Status DC Furosemide (Lasix) 20 mg 1X ONCE IVP Last administered on 09/18/17 10:47; Start 09/18/17 at 10:45; Stop 09/18/17 at 10:46; Status DC Potassium Chloride (Klor-Con) 40 meq 1X ONCE PO ; Start 09/18/17 at 11:45; Stop 09/18/17 at 11:46; Status DC Oxycodone/ Acetaminophen (Percocet 5/325) 1 tab PRN Q6HRS PRN PO PAIN Last administered on 09/18/17 13:23; Start 09/18/17 at 12:15 Lorazepam (Ativan) 1 mg PRN Q4HRS PRN IV ANXIETY / AGITATION Last administered on 09/18/17 12:25; Start 09/18/17 at 12:15; Stop 09/18/17 at 13:34; Status DC Fentanyl Citrate (Fentanyl 2ml Vial) 50 mcg PRN Q2HR PRN IV PAIN Last administered on 09/19/17 04:09; Start 09/18/17 at 12:15 Lorazepam (Ativan) 2 mg PRN Q4HRS PRN IV ANXIETY / AGITATION Last administered on 09/23/17 14:29; Start 09/18/17 at 13:30 Quetiapine Fumarate (SEROquel) 25 mg HS PO Last administered on 09/18/17 21: 03; Start 09/18/17 at 21:00; Stop 09/19/17 at 10:35; Status DC Haloperidol Lactate (Haldol) 5 mg PRN Q12HRS PRN IVP AGITATION; Start at 13:45 Lorazepam (Ativan) 1 mg PRN Q4HRS PRN IV ANXIETY / AGITATION; Start 09/19/17 at 10:15; Stop 09/19/17 at 10:18; Status DC Lorazepam (Ativan) 4 mg 1X ONCE IV ; Start 09/19/17 at 10:30; Stop 09/19/17 at 10:31; Status DC Vancomycin HCl (Vanco Per Pharmacy) 1 each PRN DAILY PRN MC SEE COMMENTS Last administered on 09/23/17 12:36; Start 09/19/17 at 10:30; Stop 09/24/17 at 08 :36; Status DC Piperacillin Sod/ Tazobactam Sod (Zosyn Per Pharmacy) 1 each PRN DAILY PRN MC SEE COMMENTS; Start 09/19/17 at 10:30; Stop 09/24/17 at 08:41; Status DC Vancomycin HCl 2 gm/Dextrose 500 ml @ 250 mls/hr 1X ONCE IV Last administered on 09/19/17 14:53; Start 09/19/17 at 11:00; Stop 09/19/17 at 12 :59; Status DC Piperacillin Sod/ Tazobactam Sod (Zosyn) 3.375 gm Q6HRS IVP Last administered on 09/27/17 05:43; Start 09/19/17 at 11:00 Budesonide (Pulmicort) 0.5 mg RTBID NEB Last administered on 09/27/17 07:31; Start 09/19/17 at 20:00 Budesonide (Pulmicort) 0.5 mg 1X ONCE NEB Last administered on 09/19/17 12: 50; Start 09/19/17 at 10:45; Stop 09/19/17 at 10:46; Status DC Pantoprazole Sodium (Protonix Vial) 40 mg DAILYAC IVP Last administered on 08:12; Start 09/19/17 at 11:30 Furosemide (Lasix) 40 mg DAILY IVP ; Start 09/19/17 at 11:00; Stop 09/20/17 at 13:20; Status DC Methylprednisolone Sodium Succinate (SOLU-Medrol 125MG VIAL) 125 mg 1X ONCE IV Last administered on 09/19/17 13:23; Start 09/19/17 at 10:45; Stop at 10:46; Status DC Prednisone (Prednisone) 40 mg DAILY PO ; Start 09/19/17 at 11:00; Stop at 09:02; Status DC Methylprednisolone Sodium Succinate (SOLU-Medrol 125MG VIAL) 125 mg Q8HRS IV Last administered on 09/23/17 05:43; Start 09/19/17 at 14:00; Stop 09/23/17 at 10:40; Status DC Midazolam HCl 100 ml @ 0 mls/hr CONT PRN IV SEE I/O RECORD; Start 09/19/17 at 11:00; Stop 09/19/17 at 12:51; Status DC Midazolam HCl (Versed) 5 mg 1X ONCE IV ; Start 09/19/17 at 11:00; Stop at 11:01; Status DC Fentanyl Citrate (Fentanyl 2ml Vial) 50 mcg 1X ONCE IV ; Start 09/19/17 at 11: 00; Stop 09/19/17 at 11:01; Status DC Midazolam HCl 100 ml @ As Directed STK-MED ONCE IV ; Start 09/19/17 at 10:55; Stop 09/19/17 at 10:56; Status DC Midazolam HCl (Versed) 5 mg STK-MED ONCE .ROUTE ; Start 09/19/17 at 10:55; Stop 09/19/17 at 10:56; Status DC Propofol 100 ml @ As Directed STK-MED ONCE IV ; Start 09/19/17 at 10:59; Stop 09/19/17 at 11:00; Status DC Norepinephrine Bitartrate 250 ml @ As Directed STK-MED ONCE IV ; Start at 10:59; Stop 09/19/17 at 11:00; Status DC Furosemide (Lasix) 20 mg 1X ONCE IVP ; Start 09/19/17 at 11:15; Stop at 11:16; Status DC Vecuronium [place] (Norcuron Bolus) 10 mg STK-MED ONCE IV ; Start 09/19/17 at 11:21; Stop 09/19/17 at 11:22; Status DC Fentanyl Citrate 30 ml @ 0 mls/hr CONT PRN IV PROTOCOL Last administered on 15:08; Start 09/19/17 at 11:30; Stop 09/23/17 at 15:24; Status DC Vecuronium [place] (Norcuron Bolus) 6 mg 1X ONCE IV Last administered on 09/19 11:42; Start 09/19/17 at 11:30; Stop 09/19/17 at 11:39; Status DC Propofol 10 ml @ 0 mls/hr 1X ONCE IV Last administered on 09/19/17 11:30; Start 09/19/17 at 11:30; Stop 09/19/17 at 11:39; Status DC Midazolam HCl 100 ml @ 0 mls/hr CONT PRN IV SEE I/O RECORD Last administered on 09/27/17 00:40; Start 09/19/17 at 11:30 Norepinephrine Bitartrate 250 ml @ 0 mls/hr CONT PRN IV SEE I/O RECORD Last administered on 09/24/17 05:18; Start 09/19/17 at 11:30 Succinylcholine Chloride (Anectine) 100 mg 1X ONCE IV Last administered on 11:42; Start 09/19/17 at 11:30; Stop 09/19/17 at 11:39; Status DC Sodium Bicarbonate 50 meq 1X ONCE IV Last administered on 09/19/17 13:23; Start 09/19/17 at 12:45; Stop 09/19/17 at 12:46; Status DC Sodium Bicarbonate 50 meq 1X ONCE IV Last administered on 09/19/17 13:23; Start 09/19/17 at 12:45; Stop 09/19/17 at 12:46; Status DC Lidocaine/Sodium Bicarbonate (Buffered Lidocaine 1%) 20 ml STK-MED ONCE IJ ; Start 09/19/17 at 13:34; Stop 09/19/17 at 13:35; Status DC Vecuronium [place] (Norcuron Bolus) 10 mg 1X ONCE IV Last administered on 15:05; Start 09/19/17 at 14:00; Stop 09/19/17 at 14:02; Status DC Lidocaine/Sodium Bicarbonate (Buffered Lidocaine 1%) 3 ml 1X ONCE IJ ; Start 09/19/17 at 14:45; Stop 09/19/17 at 14:46; Status DC Vancomycin HCl 1.25 gm/Dextrose 250 ml @ 166.667 mls/hr Q24H IV Last administered on 09/23/17 17:19; Start 09/20/17 at 15:00; Stop 09/24/17 at 08 :35; Status DC Vancomycin HCl 1 each 1X ONCE MC Last administered on 09/21/17 14:30; Start 09/21/17 at 14:30; Stop 09/21/17 at 14:31; Status DC Azithromycin 500 mg/Sodium Chloride 250 ml @ 250 mls/hr Q24H IV Last administered on 09/23/17 17:19; Start 09/19/17 at 16:30; Stop 09/24/17 at 08 :35; Status DC Norepinephrine Bitartrate (Levophed 8mg/ 250ml Premix Drip) 8 mg STK-MED ONCE IV ; Start 09/19/17 at 11:00; Stop 09/20/17 at 08:44; Status DC Midazolam HCl (Versed) 5 mg STK-MED ONCE .ROUTE ; Start 09/19/17 at 11:00; Stop 09/20/17 at 08:44; Status DC Amino Acids/ Glycerin/ Electrolytes 1,000 ml @ 80 mls/hr [id number] IV Last administered on 09/21/17 01:21; Start 09/20/17 at 10:00; Stop 09/22/17 at 07 :02; Status DC Info 1 each PRN DAILY PRN MC SEE COMMENTS; Start 09/20/17 at 10:00; Stop at 12:14; Status DC Furosemide (Lasix) 20 mg 1X ONCE IVP Last administered on 09/20/17 10:21; Start 09/20/17 at 10:15; Stop 09/20/17 at 10:18; Status DC Info 1 each PRN DAILY PRN MC SEE COMMENTS; Start 09/20/17 at 11:00; Status UNV Vecuronium [place] (Norcuron Bolus) 10 mg 1X ONCE IV Last administered on 12:03; Start 09/20/17 at 11:15; Stop 09/20/17 at 11:24; Status DC Atropine Sulfate 0.5 mg STK-MED ONCE .ROUTE ; Start 09/20/17 at 11:47; Stop at 11:48; Status DC Epinephrine HCl (EPINEPHrine SYRINGE) 1 mg STK-MED ONCE .ROUTE ; Start at 11:47; Stop 09/20/17 at 11:48; Status DC Atropine Sulfate 0.5 mg STK-MED ONCE .ROUTE ; Start 09/20/17 at 12:00; Stop at 09:11; Status DC Epinephrine HCl (EPINEPHrine SYRINGE) 1 mg STK-MED ONCE .ROUTE ; Start at 12:00; Stop 09/21/17 at 09:11; Status DC Furosemide (Lasix) 20 mg DAILY IVP ; Start 09/21/17 at 11:15; Stop 09/21/17 at 11:20; Status DC Lorazepam (Ativan) 1 mg PRN Q1HR PRN IV ANXIETY / AGITATION Last administered on 09/26/17 19:22; Start 09/21/17 at 11:15 Albumin Human 250 ml @ 62.5 mls/hr 1X ONCE IV Last administered on 11:57; Start 09/21/17 at 11:30; Stop 09/21/17 at 15:29; Status DC Albumin Human 250 ml @ 62.5 mls/hr 1X ONCE IV Last administered on 14:29; Start 09/21/17 at 11:30; Stop 09/21/17 at 15:29; Status DC Micafungin Sodium 100 mg/Dextrose 100 ml @ 100 mls/hr Q24H IV Last administered on 09/23/17 13:17; Start 09/21/17 at 12:00; Stop 09/24/17 at 08 :35; Status DC Vecuronium [place] (Norcuron Bolus) 4 mg PRN Q4HRS PRN IV AGITATION; Start at 15:00 Dexmedetomidine HCl 200 mcg/ Sodium Chloride 50 ml @ 0 mls/hr CONT PRN IV PER PROTOCOL Last administered on 09/21/17 15:54; Start 09/21/17 at 15:30 Sodium Chloride 500 ml @ 500 mls/hr 1X PRN PRN IV SEE COMMENTS; Start at 15:30 Atropine Sulfate 0.5 mg PRN Q5MIN PRN IV SEE COMMENTS; Start 09/21/17 at 15:30 Propofol 100 ml @ 0 mls/hr CONT PRN IV PER PROTOCOL Last administered on 05:43; Start 09/21/17 at 16:45 Furosemide (Lasix) 20 mg 1X ONCE IVP Last administered on 09/22/17 09:41; Start 09/22/17 at 10:15; Stop 09/22/17 at 10:16; Status DC Chlorhexidine Gluconate (Peridex) 15 ml BID MM Last administered on 09/27/17 08:14; Start 09/22/17 at 21:00 Furosemide (Lasix) 20 mg 1X ONCE IVP Last administered on 09/22/17 17:55; Start 09/22/17 at 18:00; Stop 09/22/17 at 18:01; Status DC Furosemide (Lasix) 20 mg DAILY IVP Last administered on 09/23/17 13:16; Start 09/23/17 at 11:30; Stop 09/24/17 at 08:40; Status DC Methylprednisolone Sodium Succinate (SOLU-Medrol 125MG VIAL) 80 mg Q8HRS IV Last administered on 09/27/17 05:43; Start 09/23/17 at 14:00 Fentanyl Citrate 55 ml @ 0 mls/hr CONT PRN PRN IV PER PROTOCOL Last administered on 09/26/17 23:21; Start 09/23/17 at 12:15 Dextrose 1,000 ml @ 25 mls/hr Q24H IV Last administered on 09/26/17 12:41; Start 09/23/17 at 11:45 Enoxaparin Sodium (Lovenox Per Pharmacy Prophylaxis Dosing) 1 each PRN DAILY PRN MC SEE COMMENTS; Start 09/23/17 at 16:30; Stop 09/24/17 at 08:41; Status DC Enoxaparin Sodium (Lovenox 40mg Syringe) 40 mg Q24H SQ ; Start 09/23/17 at 17: 00 Bisacodyl (Dulcolax Tab) 5 mg PRN DAILY PRN PO CONSTIPATION; Start 09/24/17 at 09:30 Insulin Aspart (NovoLOG) 0-5 UNITS Q6HRS SQ Last administered on 09/27/17 05: 45; Start 09/25/17 at 18:00 Dextrose (Dextrose 50%-Water Syringe) 12.5 gm PRN Q15MIN PRN IV SEE COMMENTS; Start 09/25/17 at 12:30 Active Scripts Active Reported Gabapentin 300 Mg Capsule 300 Mg PO TID Cymbalta (Duloxetine Hcl) 60 Mg Capsule. 1 Cap PO BID Hydrochlorothiazide Tablet (Hydrochlorothiazide) 25 Mg Tablet 1 Tab PO DAILY Xanax (Alprazolam) 1 Mg Tablet 1 Tab PO TID PRN Vitals/I & O Vital Sign - Last 24 Hours 09/26/17 09/26/17 09/26/17 09/26/17 12:00 12:00 12:43 13:00 Pulse 76 73 Resp 24 23 B/P (MAP) 108/70 (83) 97/61 (73) Pulse Ox 99 99 98 O2 Delivery Ventilator Mechanical Ventilator Ventilator Ventilator 09/26/17 09/26/17 09/26/17 09/26/17 14:00 14:57 15:00 16:00 Pulse 84 90 80 Resp 25 24 18 B/P (MAP) 91/60 (70) 112/68 (83) 107/72 (84) Pulse Ox 99 98 99 98 O2 Delivery Ventilator Ventilator Ventilator Ventilator 09/26/17 09/26/17 09/26/17 09/26/17 16:00 16:20 17:00 18:00 Pulse 82 92 Resp 24 28 B/P (MAP) 119/75 (90) 132/79 (96) Pulse Ox 99 97 97 O2 Delivery Mechanical Ventilator Ventilator Ventilator Ventilator 09/26/17 09/26/17 09/26/17 09/26/17 19:00 19:43 20:00 20:00 Temp 99.9 99.9 Pulse 78 64 Resp 28 24 B/P (MAP) 103/65 (78) 95/57 (70) Pulse Ox 97 97 98 O2 Delivery Ventilator Ventilator Ventilator Mechanical Ventilator 09/26/17 09/26/17 09/26/17 09/26/17 21:00 22:00 23:00 23:09 Pulse 66 66 62 Resp 24 24 24 B/P (MAP) 99/61 (74) 92/55 (67) 91/59 (70) Pulse Ox 99 99 99 99 O2 Delivery Ventilator Ventilator Ventilator Ventilator 09/26/17 09/26/17 09/27/17 09/27/17 23:21 23:51 00:00 00:00 Temp 98.3 98.3 Pulse 68 Resp 24 24 24 B/P (MAP) 103/60 (74) Pulse Ox 99 99 100 O2 Delivery Ventilator Ventilator Ventilator Mechanical Ventilator 09/27/17 09/27/17 09/27/17 09/27/17 01:00 01:12 02:00 03:00 Pulse 64 68 70 Resp 24 24 24 B/P (MAP) 90/52 (65) 101/64 (76) 96/59 (71) Pulse Ox 100 99 100 99 O2 Delivery Ventilator Ventilator Ventilator Ventilator 09/27/17 09/27/17 09/27/17 09/27/17 03:14 04:00 04:00 05:00 Temp 98.1 98.1 Pulse 72 73 Resp 23 26 B/P (MAP) 102/69 (80) 86/57 (67) Pulse Ox 99 98 99 O2 Delivery Ventilator Ventilator Mechanical Ventilator Ventilator 09/27/17 09/27/17 09/27/17 09/27/17 05:43 06:00 07:21 08:48 Pulse 69 Resp 24 B/P (MAP) 105/67 (80) Pulse Ox 99 98 98 100 O2 Delivery Ventilator Ventilator Ventilator Ventilator 09/27/17 10:30 Pulse Ox 97 O2 Delivery Ventilator Intake and Output 09/26/17 09/26/17 09/27/17 15:00 23:00 07:00 Intake Total 150 ml 811 ml 3041 ml Output Total 485 ml 655 ml 485 ml Balance -335 ml 156 ml 2556 ml ZEFERINO ROCKWELL MD Sep 27, 2017 11:47
[2017-09-27 12:05] LABS: FIO2 ABG 40%
--- NOTE | 2017-09-27 12:27 | PDOC ---
PROGRESS NOTES Chief Complaint Chief Complaint Acute hypoxic respiratory failure consistent with ARDS, improved, down to 40% Fi02 and 5% PEEP Pneumonia Hypotension COPD Sepsis Leukocytosis - on steroids now and S/p PRBCs Anemia, acute on chronic Transaminitis - ? reactive GEO -stable Tobaccoism Anxiety d/o H/o Leg wounds - no recent abx per for wounds - last amox 6 weeks ago Influenza vaccine 09/17 - given History of Present Illness History of Present Illness Pt seen and examined today in the ICU Sedated and intubated: AC/24/400/40% decreased to 5% PEEP, overbreathing vent Sedation holiday started OG feeding tube in place Cared discussed with Vitals Vitals Vital Signs Date Time Temp Pulse Resp B/P (MAP) Pulse Ox O2 Delivery O2 Flow Rate FiO2 09/27/17 10:30 97 Ventilator 09/27/17 06:00 69 24 105/67 (80) 09/27/17 04:00 98.1 98.1 Physical Exam Physical Exam PERRLA General: No acute distress, Other (SEDATED) Heart: Normal S1, Normal S2, No murmurs Lungs: Clear, Other (No wheezes or crackles ) Abdomen: Normal bowel sounds, Soft, No tenderness, No hepatosplenomegaly, No masses Extremities: Other (2+ BLE EDEMA) Skin: No rashes, No significant lesion Labs LABS Laboratory Tests Test 09/26/17 12:30 09/26/17 17:12 09/26/17 23:51 09/27/17 05:39 Glucose (Fingerstick) 186 mg/dL (70-99) 179 mg/dL (70-99) 181 mg/dL (70-99) 186 mg/dL (70-99) Test 09/27/17 06:00 09/27/17 07:30 White Blood Count 12.0 x10^3/uL (4.0-11.0) Red Blood Count 3.69 x10^6/uL (3.50-5.40) Hemoglobin 9.3 g/dL (12.0-15.5) Hematocrit 31.0 % (36.0-47.0) Mean Corpuscular Volume 84 fL (79-100) Mean Corpuscular Hemoglobin 25 pg (25-35) Mean Corpuscular Hemoglobin Concent 30 g/dL (31-37) Red Cell Distribution Width 28.9 % (11.5-14.5) Platelet Count 282 x10^3/uL (140-400) Neutrophils (%) (Auto) 93 % (31-73) Lymphocytes (%) (Auto) 4 % (24-48) Monocytes (%) (Auto) 3 % (0-9) Eosinophils (%) (Auto) 0 % (0-3) Basophils (%) (Auto) 0 % (0-3) Neutrophils # (Auto) 11.2 x10^3uL (1.8-7.7) Lymphocytes # (Auto) 0.4 x10^3/uL (1.0-4.8) Monocytes # (Auto) 0.3 x10^3/uL (0.0-1.1) Eosinophils # (Auto) 0.0 x10^3/uL (0.0-0.7) Basophils # (Auto) 0.0 x10^3/uL (0.0-0.2) Sodium Level 147 mmol/L (136-145) Potassium Level 4.5 mmol/L (3.5-5.1) Chloride Level 113 mmol/L (98-107) Carbon Dioxide Level 27 mmol/L (21-32) Anion Gap 7 (6-14) Blood Urea Nitrogen 53 mg/dL (7-20) Creatinine 1.0 mg/dL (0.6-1.0) Estimated GFR (Cockcroft-Gault) 56.6 Glucose Level 196 mg/dL (70-99) Calcium Level 8.3 mg/dL (8.5-10.1) O2 Saturation 96 % (92-99) Arterial Blood pH 7.41 (7.35-7.45) Arterial Blood pCO2 at Patient Temp 39 mmHg (35-46) Arterial Blood pO2 at Patient Temp 91 mmHg (65-108) Arterial Blood HCO3 24 mmol/L (21-28) Arterial Blood Base Excess 0 mmol/L (-3-3) FiO2 40% Review of Systems Review of Systems pt. intubated Assessment and Plan Assessmemt and Plan Problems Medical Problems: (1) Dyspnea Status: Acute (2) Hypoalbuminemia Status: Acute (3) Metabolic acidosis Status: Acute (4) Pneumonia Status: Acute Assessment: Acute hypoxic respiratory failure consistent with ARDS, improved, down to 40% Fi02 and 5% PEEP Pneumonia Hypotension COPD Sepsis Leukocytosis - on steroids now and S/p PRBCs Anemia, acute on chronic Transaminitis - ? reactive GEO -stable Tobaccoism Anxiety d/o H/o Leg wounds - no recent abx per for wounds - last amox 6 weeks ago Influenza vaccine 09/17 - given Plan: Continue ICU monitoring Continue home meds Continue weaning vent Recheck labs in am OG feeds Problems: Comment Review of Relevant I have reviewed the following items tha (where applicable) has been applied. Labs Laboratory Tests Test 09/25/17 17:25 09/26/17 00:14 09/26/17 05:40 09/26/17 06:22 Glucose (Fingerstick) 199 mg/dL (70-99) 181 mg/dL (70-99) 183 mg/dL (70-99) White Blood Count 15.7 x10^3/uL (4.0-11.0) Red Blood Count 4.09 x10^6/uL (3.50-5.40) Hemoglobin 10.3 g/dL (12.0-15.5) Hematocrit 34.6 % (36.0-47.0) Mean Corpuscular Volume 85 fL (79-100) Mean Corpuscular Hemoglobin 25 pg (25-35) Mean Corpuscular Hemoglobin Concent 30 g/dL (31-37) Red Cell Distribution Width 29.2 % (11.5-14.5) Platelet Count 285 x10^3/uL (140-400) Neutrophils (%) (Auto) 94 % (31-73) Lymphocytes (%) (Auto) 3 % (24-48) Monocytes (%) (Auto) 3 % (0-9) Eosinophils (%) (Auto) 0 % (0-3) Basophils (%) (Auto) 0 % (0-3) Neutrophils # (Auto) 14.7 x10^3uL (1.8-7.7) Lymphocytes # (Auto) 0.4 x10^3/uL (1.0-4.8) Monocytes # (Auto) 0.5 x10^3/uL (0.0-1.1) Eosinophils # (Auto) 0.0 x10^3/uL (0.0-0.7) Basophils # (Auto) 0.0 x10^3/uL (0.0-0.2) Sodium Level 150 mmol/L (136-145) Potassium Level 4.4 mmol/L (3.5-5.1) Chloride Level 113 mmol/L (98-107) Carbon Dioxide Level 26 mmol/L (21-32) Anion Gap 11 (6-14) Blood Urea Nitrogen 57 mg/dL (7-20) Creatinine 1.1 mg/dL (0.6-1.0) Estimated GFR (Cockcroft-Gault) 50.7 Glucose Level 183 mg/dL (70-99) Calcium Level 9.0 mg/dL (8.5-10.1) Test 09/26/17 07:45 09/26/17 12:30 09/26/17 17:12 09/26/17 23:51 O2 Saturation 96 % (92-99) Arterial Blood pH 7.42 (7.35-7.45) Arterial Blood pCO2 at Patient Temp 40 mmHg (35-46) Arterial Blood pO2 at Patient Temp 87 mmHg (65-108) Arterial Blood HCO3 25 mmol/L (21-28) Arterial Blood Base Excess 1 mmol/L (-3-3) FiO2 50% Glucose (Fingerstick) 186 mg/dL (70-99) 179 mg/dL (70-99) 181 mg/dL (70-99) Test 09/27/17 05:39 09/27/17 06:00 09/27/17 07:30 Glucose (Fingerstick) 186 mg/dL (70-99) White Blood Count 12.0 x10^3/uL (4.0-11.0) Red Blood Count 3.69 x10^6/uL (3.50-5.40) Hemoglobin 9.3 g/dL (12.0-15.5) Hematocrit 31.0 % (36.0-47.0) Mean Corpuscular Volume 84 fL (79-100) Mean Corpuscular Hemoglobin 25 pg (25-35) Mean Corpuscular Hemoglobin Concent 30 g/dL (31-37) Red Cell Distribution Width 28.9 % (11.5-14.5) Platelet Count 282 x10^3/uL (140-400) Neutrophils (%) (Auto) 93 % (31-73) Lymphocytes (%) (Auto) 4 % (24-48) Monocytes (%) (Auto) 3 % (0-9) Eosinophils (%) (Auto) 0 % (0-3) Basophils (%) (Auto) 0 % (0-3) Neutrophils # (Auto) 11.2 x10^3uL (1.8-7.7) Lymphocytes # (Auto) 0.4 x10^3/uL (1.0-4.8) Monocytes # (Auto) 0.3 x10^3/uL (0.0-1.1) Eosinophils # (Auto) 0.0 x10^3/uL (0.0-0.7) Basophils # (Auto) 0.0 x10^3/uL (0.0-0.2) Sodium Level 147 mmol/L (136-145) Potassium Level 4.5 mmol/L (3.5-5.1) Chloride Level 113 mmol/L (98-107) Carbon Dioxide Level 27 mmol/L (21-32) Anion Gap 7 (6-14) Blood Urea Nitrogen 53 mg/dL (7-20) Creatinine 1.0 mg/dL (0.6-1.0) Estimated GFR (Cockcroft-Gault) 56.6 Glucose Level 196 mg/dL (70-99) Calcium Level 8.3 mg/dL (8.5-10.1) O2 Saturation 96 % (92-99) Arterial Blood pH 7.41 (7.35-7.45) Arterial Blood pCO2 at Patient Temp 39 mmHg (35-46) Arterial Blood pO2 at Patient Temp 91 mmHg (65-108) Arterial Blood HCO3 24 mmol/L (21-28) Arterial Blood Base Excess 0 mmol/L (-3-3) FiO2 40% Laboratory Tests Test 09/26/17 12:30 09/26/17 17:12 09/26/17 23:51 09/27/17 05:39 Glucose (Fingerstick) 186 mg/dL (70-99) 179 mg/dL (70-99) 181 mg/dL (70-99) 186 mg/dL (70-99) Test 09/27/17 06:00 09/27/17 07:30 White Blood Count 12.0 x10^3/uL (4.0-11.0) Red Blood Count 3.69 x10^6/uL (3.50-5.40) Hemoglobin 9.3 g/dL (12.0-15.5) Hematocrit 31.0 % (36.0-47.0) Mean Corpuscular Volume 84 fL (79-100) Mean Corpuscular Hemoglobin 25 pg (25-35) Mean Corpuscular Hemoglobin Concent 30 g/dL (31-37) Red Cell Distribution Width 28.9 % (11.5-14.5) Platelet Count 282 x10^3/uL (140-400) Neutrophils (%) (Auto) 93 % (31-73) Lymphocytes (%) (Auto) 4 % (24-48) Monocytes (%) (Auto) 3 % (0-9) Eosinophils (%) (Auto) 0 % (0-3) Basophils (%) (Auto) 0 % (0-3) Neutrophils # (Auto) 11.2 x10^3uL (1.8-7.7) Lymphocytes # (Auto) 0.4 x10^3/uL (1.0-4.8) Monocytes # (Auto) 0.3 x10^3/uL (0.0-1.1) Eosinophils # (Auto) 0.0 x10^3/uL (0.0-0.7) Basophils # (Auto) 0.0 x10^3/uL (0.0-0.2) Sodium Level 147 mmol/L (136-145) Potassium Level 4.5 mmol/L (3.5-5.1) Chloride Level 113 mmol/L (98-107) Carbon Dioxide Level 27 mmol/L (21-32) Anion Gap 7 (6-14) Blood Urea Nitrogen 53 mg/dL (7-20) Creatinine 1.0 mg/dL (0.6-1.0) Estimated GFR (Cockcroft-Gault) 56.6 Glucose Level 196 mg/dL (70-99) Calcium Level 8.3 mg/dL (8.5-10.1) O2 Saturation 96 % (92-99) Arterial Blood pH 7.41 (7.35-7.45) Arterial Blood pCO2 at Patient Temp 39 mmHg (35-46) Arterial Blood pO2 at Patient Temp 91 mmHg (65-108) Arterial Blood HCO3 24 mmol/L (21-28) Arterial Blood Base Excess 0 mmol/L (-3-3) FiO2 40% Microbiology 09/17/17 Blood Culture - Final, Complete NO GROWTH AFTER 5 DAYS 09/20/17 AFB Specimen Processing Tissue - Final, Resulted 09/20/17 Acid Fast Bacilli Culture, Resulted Pending 09/20/17 Gram Stain - Final, Resulted 09/20/17 Fungal Culture - Preliminary, Resulted 09/20/17 Fungal Culture Result 1 - Preliminary, Resulted Medications Current Medications Sodium Chloride 1,000 ml @ 125 mls/hr 1X ONCE IV Last administered on 15:54; Start 09/17/17 at 15:15; Stop 09/17/17 at 23:14; Status DC Ondansetron HCl (Zofran) 4 mg PRN Q8HRS PRN IV NAUSEA/VOMITING; Start at 16:30; Stop 09/18/17 at 16:29; Status DC Ceftriaxone Sodium 50 ml @ 0 mls/hr 1X ONCE IV Last administered on 17:33; Start 09/17/17 at 16:45; Stop 09/17/17 at 16:46; Status DC Azithromycin 250 ml @ 250 mls/hr 1X ONCE IV Last administered on 09/17/17 22:38; Start 09/17/17 at 16:30; Stop 09/17/17 at 17:29; Status DC Albuterol/ Ipratropium (Duoneb) 3 ml 1X ONCE NEB Last administered on 17:00; Start 09/17/17 at 16:45; Stop 09/17/17 at 16:46; Status DC Potassium Chloride (Klor-Con) 40 meq 1X ONCE PO Last administered on 16:57; Start 09/17/17 at 16:45; Stop 09/17/17 at 16:46; Status DC Azithromycin (Zithromax) 250 mg DAILY PO Last administered on 09/18/17 10:25 ; Start 09/18/17 at 09:00; Stop 09/19/17 at 10:30; Status DC Ceftriaxone Sodium 1 gm/ Dextrose 50 ml @ 100 mls/hr Q24H IV ; Start 09/17/17 at 17:15; Status UNV Albuterol/ Ipratropium (Duoneb) 3 ml Q4HRS NEB Last administered on 09/27/17 10:30; Start 09/17/17 at 20:00 Ceftriaxone Sodium (Rocephin) 1 gm Q24H IVP Last administered on 09/18/17 17: 55; Start 09/18/17 at 16:00; Stop 09/19/17 at 10:30; Status DC Guaifenesin (Robitussin Dm) 10 ml PRN Q6HRS PRN PO COUGH; Start 09/17/17 at 17 :15 Sodium Chloride 1,000 ml @ 125 mls/hr 1X ONCE IV Last administered on 17:45; Start 09/17/17 at 17:15; Stop 09/17/17 at 22:12; Status DC Info (Do NOT chart on this placeholder) 1 each 1X ONCE MC ; Start 09/17/17 at 19:00; Stop 09/17/17 at 19:01; Status UNV Influenza Virus Vaccine Quadrival (Fluarix Quad [id number] Syringe) 0.5 ml ONCE ONCE VAX IM ; Start 09/17/17 at 21:00; Stop 09/17/17 at 21:01; Status DC Sodium Chloride 1,000 ml @ 130 mls/hr 1X ONCE IV Last administered on 22:31; Start 09/17/17 at 22:30; Stop 09/18/17 at 06:11; Status DC Sodium Bicarbonate 50 meq 1X ONCE IV Last administered on 09/17/17 22:31; Start 09/17/17 at 22:30; Stop 09/17/17 at 22:31; Status DC Alprazolam (Xanax) 1 mg PRN TID PRN PO ANXIETY Last administered on 09/19/17 02:19; Start 09/17/17 at 22:30 Furosemide (Lasix) 20 mg 1X ONCE IVP Last administered on 09/18/17 06:24; Start 09/18/17 at 06:30; Stop 09/18/17 at 06:31; Status DC Potassium Chloride (Klor-Con) 40 meq 1X ONCE PO Last administered on 10:25; Start 09/18/17 at 09:00; Stop 09/18/17 at 09:01; Status DC Iron Sucrose 500 mg/Sodium Chloride 275 ml @ 78.571 mls/ hr 1X ONCE IV Last administered on 09/18/17 10:24; Start 09/18/17 at 09:00; Stop 09/18/17 at 12 :29; Status DC Furosemide (Lasix) 20 mg 1X ONCE IVP Last administered on 09/18/17 10:30; Start 09/18/17 at 10:00; Stop 09/18/17 at 10:22; Status DC Pantoprazole Sodium (Protonix) 40 mg DAILYAC PO Last administered on 10:47; Start 09/18/17 at 11:00; Stop 09/19/17 at 13:41; Status DC Furosemide (Lasix) 20 mg 1X ONCE IVP Last administered on 09/18/17 10:47; Start 09/18/17 at 10:45; Stop 09/18/17 at 10:46; Status DC Potassium Chloride (Klor-Con) 40 meq 1X ONCE PO ; Start 09/18/17 at 11:45; Stop 09/18/17 at 11:46; Status DC Oxycodone/ Acetaminophen (Percocet 5/325) 1 tab PRN Q6HRS PRN PO PAIN Last administered on 09/18/17 13:23; Start 09/18/17 at 12:15 Lorazepam (Ativan) 1 mg PRN Q4HRS PRN IV ANXIETY / AGITATION Last administered on 09/18/17 12:25; Start 09/18/17 at 12:15; Stop 09/18/17 at 13:34; Status DC Fentanyl Citrate (Fentanyl 2ml Vial) 50 mcg PRN Q2HR PRN IV PAIN Last administered on 09/19/17 04:09; Start 09/18/17 at 12:15 Lorazepam (Ativan) 2 mg PRN Q4HRS PRN IV ANXIETY / AGITATION Last administered on 09/23/17 14:29; Start 09/18/17 at 13:30 Quetiapine Fumarate (SEROquel) 25 mg HS PO Last administered on 09/18/17 21: 03; Start 09/18/17 at 21:00; Stop 09/19/17 at 10:35; Status DC Haloperidol Lactate (Haldol) 5 mg PRN Q12HRS PRN IVP AGITATION; Start at 13:45 Lorazepam (Ativan) 1 mg PRN Q4HRS PRN IV ANXIETY / AGITATION; Start 09/19/17 at 10:15; Stop 09/19/17 at 10:18; Status DC Lorazepam (Ativan) 4 mg 1X ONCE IV ; Start 09/19/17 at 10:30; Stop 09/19/17 at 10:31; Status DC Vancomycin HCl (Vanco Per Pharmacy) 1 each PRN DAILY PRN MC SEE COMMENTS Last administered on 09/23/17 12:36; Start 09/19/17 at 10:30; Stop 09/24/17 at 08 :36; Status DC Piperacillin Sod/ Tazobactam Sod (Zosyn Per Pharmacy) 1 each PRN DAILY PRN MC SEE COMMENTS; Start 09/19/17 at 10:30; Stop 09/24/17 at 08:41; Status DC Vancomycin HCl 2 gm/Dextrose 500 ml @ 250 mls/hr 1X ONCE IV Last administered on 09/19/17 14:53; Start 09/19/17 at 11:00; Stop 09/19/17 at 12 :59; Status DC Piperacillin Sod/ Tazobactam Sod (Zosyn) 3.375 gm Q6HRS IVP Last administered on 09/27/17 05:43; Start 09/19/17 at 11:00 Budesonide (Pulmicort) 0.5 mg RTBID NEB Last administered on 09/27/17 07:31; Start 09/19/17 at 20:00 Budesonide (Pulmicort) 0.5 mg 1X ONCE NEB Last administered on 09/19/17 12: 50; Start 09/19/17 at 10:45; Stop 09/19/17 at 10:46; Status DC Pantoprazole Sodium (Protonix Vial) 40 mg DAILYAC IVP Last administered on 08:12; Start 09/19/17 at 11:30 Furosemide (Lasix) 40 mg DAILY IVP ; Start 09/19/17 at 11:00; Stop 09/20/17 at 13:20; Status DC Methylprednisolone Sodium Succinate (SOLU-Medrol 125MG VIAL) 125 mg 1X ONCE IV Last administered on 09/19/17 13:23; Start 09/19/17 at 10:45; Stop at 10:46; Status DC Prednisone (Prednisone) 40 mg DAILY PO ; Start 09/19/17 at 11:00; Stop at 09:02; Status DC Methylprednisolone Sodium Succinate (SOLU-Medrol 125MG VIAL) 125 mg Q8HRS IV Last administered on 09/23/17t 05:43; Start 09/19/17 at 14:00; Stop 09/23/17 at 10:40; Status DC Midazolam HCl 100 ml @ 0 mls/hr CONT PRN IV SEE I/O RECORD; Start 09/19/17 at 11:00; Stop 09/19/17 at 12:51; Status DC Midazolam HCl (Versed) 5 mg 1X ONCE IV ; Start 09/19/17 at 11:00; Stop at 11:01; Status DC Fentanyl Citrate (Fentanyl 2ml Vial) 50 mcg 1X ONCE IV ; Start 09/19/17 at 11: 00; Stop 09/19/17 at 11:01; Status DC Midazolam HCl 100 ml @ As Directed STK-MED ONCE IV ; Start 09/19/17 at 10:55; Stop 09/19/17 at 10:56; Status DC Midazolam HCl (Versed) 5 mg STK-MED ONCE .ROUTE ; Start 09/19/17 at 10:55; Stop 09/19/17 at 10:56; Status DC Propofol 100 ml @ As Directed STK-MED ONCE IV ; Start 09/19/17 at 10:59; Stop 09/19/17 at 11:00; Status DC Norepinephrine Bitartrate 250 ml @ As Directed STK-MED ONCE IV ; Start at 10:59; Stop 09/19/17 at 11:00; Status DC Furosemide (Lasix) 20 mg 1X ONCE IVP ; Start 09/19/17 at 11:15; Stop at 11:16; Status DC Vecuronium Hartley (Norcuron Bolus) 10 mg STK-MED ONCE IV ; Start 09/19/17 at 11:21; Stop 09/19/17 at 11:22; Status DC Fentanyl Citrate 30 ml @ 0 mls/hr CONT PRN IV PROTOCOL Last administered on 15:08; Start 09/19/17 at 11:30; Stop 09/23/17 at 15:24; Status DC Vecuronium Hartley (Norcuron Bolus) 6 mg 1X ONCE IV Last administered on 09/19 11:42; Start 09/19/17 at 11:30; Stop 09/19/17 at 11:39; Status DC Propofol 10 ml @ 0 mls/hr 1X ONCE IV Last administered on 09/19/17 11:30; Start 09/19/17 at 11:30; Stop 09/19/17 at 11:39; Status DC Midazolam HCl 100 ml @ 0 mls/hr CONT PRN IV SEE I/O RECORD Last administered on 09/27/17 00:40; Start 09/19/17 at 11:30 Norepinephrine Bitartrate 250 ml @ 0 mls/hr CONT PRN IV SEE I/O RECORD Last administered on 09/24/17 05:18; Start 09/19/17 at 11:30 Succinylcholine Chloride (Anectine) 100 mg 1X ONCE IV Last administered on 11:42; Start 09/19/17 at 11:30; Stop 09/19/17 at 11:39; Status DC Sodium Bicarbonate 50 meq 1X ONCE IV Last administered on 09/19/17 13:23; Start 09/19/17 at 12:45; Stop 09/19/17 at 12:46; Status DC Sodium Bicarbonate 50 meq 1X ONCE IV Last administered on 09/19/17 13:23; Start 09/19/17 at 12:45; Stop 09/19/17 at 12:46; Status DC Lidocaine/Sodium Bicarbonate (Buffered Lidocaine 1%) 20 ml STK-MED ONCE IJ ; Start 09/19/17 at 13:34; Stop 09/19/17 at 13:35; Status DC Vecuronium Hartley (Norcuron Bolus) 10 mg 1X ONCE IV Last administered on 15:05; Start 09/19/17 at 14:00; Stop 09/19/17 at 14:02; Status DC Lidocaine/Sodium Bicarbonate (Buffered Lidocaine 1%) 3 ml 1X ONCE IJ ; Start 09/19/17 at 14:45; Stop 09/19/17 at 14:46; Status DC Vancomycin HCl 1.25 gm/Dextrose 250 ml @ 166.667 mls/hr Q24H IV Last administered on 09/23/17 17:19; Start 09/20/17 at 15:00; Stop 09/24/17 at 08 :35; Status DC Vancomycin HCl 1 each 1X ONCE MC Last administered on 09/21/17 14:30; Start 09/21/17 at 14:30; Stop 09/21/17 at 14:31; Status DC Azithromycin 500 mg/Sodium Chloride 250 ml @ 250 mls/hr Q24H IV Last administered on 09/23/17 17:19; Start 09/19/17 at 16:30; Stop 09/24/17 at 08 :35; Status DC Norepinephrine Bitartrate (Levophed 8mg/ 250ml Premix Drip) 8 mg STK-MED ONCE IV ; Start 09/19/17 at 11:00; Stop 09/20/17 at 08:44; Status DC Midazolam HCl (Versed) 5 mg STK-MED ONCE .ROUTE ; Start 09/19/17 at 11:00; Stop 09/20/17 at 08:44; Status DC Amino Acids/ Glycerin/ Electrolytes 1,000 ml @ 80 mls/hr [id number] IV Last administered on 09/21/17 01:21; Start 09/20/17 at 10:00; Stop 09/22/17 at 07 :02; Status DC Info 1 each PRN DAILY PRN MC SEE COMMENTS; Start 09/20/17 at 10:00; Stop at 12:14; Status DC Furosemide (Lasix) 20 mg 1X ONCE IVP Last administered on 09/20/17 10:21; Start 09/20/17 at 10:15; Stop 09/20/17 at 10:18; Status DC Info 1 each PRN DAILY PRN MC SEE COMMENTS; Start 09/20/17 at 11:00; Status UNV Vecuronium Hartley (Norcuron Bolus) 10 mg 1X ONCE IV Last administered on 12:03; Start 09/20/17 at 11:15; Stop 09/20/17 at 11:24; Status DC Atropine Sulfate 0.5 mg STK-MED ONCE .ROUTE ; Start 09/20/17 at 11:47; Stop at 11:48; Status DC Epinephrine HCl (EPINEPHrine SYRINGE) 1 mg STK-MED ONCE .ROUTE ; Start at 11:47; Stop 09/20/17 at 11:48; Status DC Atropine Sulfate 0.5 mg STK-MED ONCE .ROUTE ; Start 09/20/17 at 12:00; Stop at 09:11; Status DC Epinephrine HCl (EPINEPHrine SYRINGE) 1 mg STK-MED ONCE .ROUTE ; Start at 12:00; Stop 09/21/17 at 09:11; Status DC Furosemide (Lasix) 20 mg DAILY IVP ; Start 09/21/17 at 11:15; Stop 09/21/17 at 11:20; Status DC Lorazepam (Ativan) 1 mg PRN Q1HR PRN IV ANXIETY / AGITATION Last administered on 09/26/17 19:22; Start 09/21/17 at 11:15 Albumin Human 250 ml @ 62.5 mls/hr 1X ONCE IV Last administered on 11:57; Start 09/21/17 at 11:30; Stop 09/21/17 at 15:29; Status DC Albumin Human 250 ml @ 62.5 mls/hr 1X ONCE IV Last administered on 14:29; Start 09/21/17 at 11:30; Stop 09/21/17 at 15:29; Status DC Micafungin Sodium 100 mg/Dextrose 100 ml @ 100 mls/hr Q24H IV Last administered on 09/23/17 13:17; Start 09/21/17 at 12:00; Stop 09/24/17 at 08 :35; Status DC Vecuronium Hartley (Norcuron Bolus) 4 mg PRN Q4HRS PRN IV AGITATION; Start at 15:00 Dexmedetomidine HCl 200 mcg/ Sodium Chloride 50 ml @ 0 mls/hr CONT PRN IV PER PROTOCOL Last administered on 09/21/17 15:54; Start 09/21/17 at 15:30 Sodium Chloride 500 ml @ 500 mls/hr 1X PRN PRN IV SEE COMMENTS; Start at 15:30 Atropine Sulfate 0.5 mg PRN Q5MIN PRN IV SEE COMMENTS; Start 09/21/17 at 15:30 Propofol 100 ml @ 0 mls/hr CONT PRN IV PER PROTOCOL Last administered on 05:43; Start 09/21/17 at 16:45 Furosemide (Lasix) 20 mg 1X ONCE IVP Last administered on 09/22/17 09:41; Start 09/22/17 at 10:15; Stop 09/22/17 at 10:16; Status DC Chlorhexidine Gluconate (Peridex) 15 ml BID MM Last administered on 09/27/17 08:14; Start 09/22/17 at 21:00 Furosemide (Lasix) 20 mg 1X ONCE IVP Last administered on 09/22/17 17:55; Start 09/22/17 at 18:00; Stop 09/22/17 at 18:01; Status DC Furosemide (Lasix) 20 mg DAILY IVP Last administered on 09/23/17 13:16; Start 09/23/17 at 11:30; Stop 09/24/17 at 08:40; Status DC Methylprednisolone Sodium Succinate (SOLU-Medrol 125MG VIAL) 80 mg Q8HRS IV Last administered on 09/27/17 05:43; Start 09/23/17 at 14:00 Fentanyl Citrate 55 ml @ 0 mls/hr CONT PRN PRN IV PER PROTOCOL Last administered on 09/26/17 23:21; Start 09/23/17 at 12:15 Dextrose 1,000 ml @ 25 mls/hr Q24H IV Last administered on 09/26/17 12:41; Start 09/23/17 at 11:45 Enoxaparin Sodium (Lovenox Per Pharmacy Prophylaxis Dosing) 1 each PRN DAILY PRN MC SEE COMMENTS; Start 09/23/17 at 16:30; Stop 09/24/17 at 08:41; Status DC Enoxaparin Sodium (Lovenox 40mg Syringe) 40 mg Q24H SQ ; Start 09/23/17 at 17: 00 Bisacodyl (Dulcolax Tab) 5 mg PRN DAILY PRN PO CONSTIPATION; Start 09/24/17 at 09:30 Insulin Aspart (NovoLOG) 0-5 UNITS Q6HRS SQ Last administered on 09/27/17 05: 45; Start 09/25/17 at 18:00 Dextrose (Dextrose 50%-Water Syringe) 12.5 gm PRN Q15MIN PRN IV SEE COMMENTS; Start 09/25/17 at 12:30 Active Scripts Active Reported Gabapentin 300 Mg Capsule 300 Mg PO TID Cymbalta (Duloxetine Hcl) 60 Mg Capsule. 1 Cap PO BID Hydrochlorothiazide Tablet (Hydrochlorothiazide) 25 Mg Tablet 1 Tab PO DAILY Xanax (Alprazolam) 1 Mg Tablet 1 Tab PO TID PRN Vitals/I & O Vital Sign - Last 24 Hours 09/26/17 09/26/17 09/26/17 09/26/17 12:43 13:00 14:00 14:57 Pulse 73 84 Resp 23 25 B/P (MAP) 97/61 (73) 91/60 (70) Pulse Ox 99 98 99 98 O2 Delivery Ventilator Ventilator Ventilator Ventilator 09/26/17 09/26/17 09/26/17 09/26/17 15:00 16:00 16:00 16:20 Pulse 90 80 Resp 24 18 B/P (MAP) 112/68 (83) 107/72 (84) Pulse Ox 99 98 99 O2 Delivery Ventilator Ventilator Mechanical Ventilator Ventilator 09/26/17 09/26/17 09/26/17 09/26/17 17:00 18:00 19:00 19:43 Pulse 82 92 78 Resp 24 28 28 B/P (MAP) 119/75 (90) 132/79 (96) 103/65 (78) Pulse Ox 97 97 97 97 O2 Delivery Ventilator Ventilator Ventilator Ventilator 09/26/17 09/26/17 09/26/17 09/26/17 20:00 20:00 21:00 22:00 Temp 99.9 99.9 Pulse 64 66 66 Resp 24 24 24 B/P (MAP) 95/57 (70) 99/61 (74) 92/55 (67) Pulse Ox 98 99 99 O2 Delivery Ventilator Mechanical Ventilator Ventilator Ventilator 09/26/17 09/26/17 09/26/17 09/26/17 23:00 23:09 23:21 23:51 Pulse 62 Resp 24 24 24 B/P (MAP) 91/59 (70) Pulse Ox 99 99 99 99 O2 Delivery Ventilator Ventilator Ventilator Ventilator 09/27/17 09/27/17 09/27/17 09/27/17 00:00 00:00 01:00 01:12 Temp 98.3 98.3 Pulse 68 64 Resp 24 24 B/P (MAP) 103/60 (74) 90/52 (65) Pulse Ox 100 100 99 O2 Delivery Ventilator Mechanical Ventilator Ventilator Ventilator 09/27/17 09/27/17 09/27/17 09/27/17 02:00 03:00 03:14 04:00 Temp 98.1 98.1 Pulse 68 70 72 Resp 24 24 23 B/P (MAP) 101/64 (76) 96/59 (71) 102/69 (80) Pulse Ox 100 99 99 98 O2 Delivery Ventilator Ventilator Ventilator Ventilator 09/27/17 09/27/17 09/27/17 09/27/17 04:00 05:00 05:43 06:00 Pulse 73 69 Resp 26 24 B/P (MAP) 86/57 (67) 105/67 (80) Pulse Ox 99 99 98 O2 Delivery Mechanical Ventilator Ventilator Ventilator Ventilator 09/27/17 09/27/17 09/27/17 07:21 08:48 10:30 Pulse Ox 98 100 97 O2 Delivery Ventilator Ventilator Ventilator Intake and Output 09/26/17 09/26/17 09/27/17 15:00 23:00 07:00 Intake Total 150 ml 811 ml 3041 ml Output Total 485 ml 655 ml 485 ml Balance -335 ml 156 ml 2556 ml DENILSON KRISHNAMURTHY III DO Sep 27, 2017 12:27
[2017-09-27] MEDS: IV DEXTROSE 5% 1,000 ML IV SCH (14:35)
--- NOTE | 2017-09-27 15:37 | PDOC ---
PULMONARY PROGRESS NOTES Subjective AC mode, intubated 09/19, OFF SEDATION SINCE THIS AM NOW SOMEWHAT AGITATED VT DECREASED TO 400 YESTERDAY Vitals Vital Signs Date Time Temp Pulse Resp B/P (MAP) Pulse Ox O2 Delivery O2 Flow Rate FiO2 09/27/17 13:32 98 Ventilator 09/27/17 06:00 69 24 105/67 (80) 09/27/17 04:00 98.1 98.1 Lungs: Clear, Other (No wheezes or crackles ) Cardiovascular: S1, S2 Abdomen: Soft Extremities: No Edema Skin: Warm Labs Laboratory Tests Test 09/25/17 17:25 09/26/17 00:14 09/26/17 05:40 09/26/17 06:22 Glucose (Fingerstick) 199 mg/dL (70-99) 181 mg/dL (70-99) 183 mg/dL (70-99) White Blood Count 15.7 x10^3/uL (4.0-11.0) Red Blood Count 4.09 x10^6/uL (3.50-5.40) Hemoglobin 10.3 g/dL (12.0-15.5) Hematocrit 34.6 % (36.0-47.0) Mean Corpuscular Volume 85 fL (79-100) Mean Corpuscular Hemoglobin 25 pg (25-35) Mean Corpuscular Hemoglobin Concent 30 g/dL (31-37) Red Cell Distribution Width 29.2 % (11.5-14.5) Platelet Count 285 x10^3/uL (140-400) Neutrophils (%) (Auto) 94 % (31-73) Lymphocytes (%) (Auto) 3 % (24-48) Monocytes (%) (Auto) 3 % (0-9) Eosinophils (%) (Auto) 0 % (0-3) Basophils (%) (Auto) 0 % (0-3) Neutrophils # (Auto) 14.7 x10^3uL (1.8-7.7) Lymphocytes # (Auto) 0.4 x10^3/uL (1.0-4.8) Monocytes # (Auto) 0.5 x10^3/uL (0.0-1.1) Eosinophils # (Auto) 0.0 x10^3/uL (0.0-0.7) Basophils # (Auto) 0.0 x10^3/uL (0.0-0.2) Sodium Level 150 mmol/L (136-145) Potassium Level 4.4 mmol/L (3.5-5.1) Chloride Level 113 mmol/L (98-107) Carbon Dioxide Level 26 mmol/L (21-32) Anion Gap 11 (6-14) Blood Urea Nitrogen 57 mg/dL (7-20) Creatinine 1.1 mg/dL (0.6-1.0) Estimated GFR (Cockcroft-Gault) 50.7 Glucose Level 183 mg/dL (70-99) Calcium Level 9.0 mg/dL (8.5-10.1) Test 09/26/17 07:45 09/26/17 12:30 09/26/17 17:12 09/26/17 23:51 O2 Saturation 96 % (92-99) Arterial Blood pH 7.42 (7.35-7.45) Arterial Blood pCO2 at Patient Temp 40 mmHg (35-46) Arterial Blood pO2 at Patient Temp 87 mmHg (65-108) Arterial Blood HCO3 25 mmol/L (21-28) Arterial Blood Base Excess 1 mmol/L (-3-3) FiO2 50% Glucose (Fingerstick) 186 mg/dL (70-99) 179 mg/dL (70-99) 181 mg/dL (70-99) Test 09/27/17 05:39 09/27/17 06:00 09/27/17 07:30 09/27/17 14:38 Glucose (Fingerstick) 186 mg/dL (70-99) 172 mg/dL (70-99) White Blood Count 12.0 x10^3/uL (4.0-11.0) Red Blood Count 3.69 x10^6/uL (3.50-5.40) Hemoglobin 9.3 g/dL (12.0-15.5) Hematocrit 31.0 % (36.0-47.0) Mean Corpuscular Volume 84 fL (79-100) Mean Corpuscular Hemoglobin 25 pg (25-35) Mean Corpuscular Hemoglobin Concent 30 g/dL (31-37) Red Cell Distribution Width 28.9 % (11.5-14.5) Platelet Count 282 x10^3/uL (140-400) Neutrophils (%) (Auto) 93 % (31-73) Lymphocytes (%) (Auto) 4 % (24-48) Monocytes (%) (Auto) 3 % (0-9) Eosinophils (%) (Auto) 0 % (0-3) Basophils (%) (Auto) 0 % (0-3) Neutrophils # (Auto) 11.2 x10^3uL (1.8-7.7) Lymphocytes # (Auto) 0.4 x10^3/uL (1.0-4.8) Monocytes # (Auto) 0.3 x10^3/uL (0.0-1.1) Eosinophils # (Auto) 0.0 x10^3/uL (0.0-0.7) Basophils # (Auto) 0.0 x10^3/uL (0.0-0.2) Sodium Level 147 mmol/L (136-145) Potassium Level 4.5 mmol/L (3.5-5.1) Chloride Level 113 mmol/L (98-107) Carbon Dioxide Level 27 mmol/L (21-32) Anion Gap 7 (6-14) Blood Urea Nitrogen 53 mg/dL (7-20) Creatinine 1.0 mg/dL (0.6-1.0) Estimated GFR (Cockcroft-Gault) 56.6 Glucose Level 196 mg/dL (70-99) Calcium Level 8.3 mg/dL (8.5-10.1) O2 Saturation 96 % (92-99) Arterial Blood pH 7.41 (7.35-7.45) Arterial Blood pCO2 at Patient Temp 39 mmHg (35-46) Arterial Blood pO2 at Patient Temp 91 mmHg (65-108) Arterial Blood HCO3 24 mmol/L (21-28) Arterial Blood Base Excess 0 mmol/L (-3-3) FiO2 40% Laboratory Tests Test 09/26/17 17:12 09/26/17 23:51 09/27/17 05:39 09/27/17 06:00 Glucose (Fingerstick) 179 mg/dL (70-99) 181 mg/dL (70-99) 186 mg/dL (70-99) White Blood Count 12.0 x10^3/uL (4.0-11.0) Red Blood Count 3.69 x10^6/uL (3.50-5.40) Hemoglobin 9.3 g/dL (12.0-15.5) Hematocrit 31.0 % (36.0-47.0) Mean Corpuscular Volume 84 fL (79-100) Mean Corpuscular Hemoglobin 25 pg (25-35) Mean Corpuscular Hemoglobin Concent 30 g/dL (31-37) Red Cell Distribution Width 28.9 % (11.5-14.5) Platelet Count 282 x10^3/uL (140-400) Neutrophils (%) (Auto) 93 % (31-73) Lymphocytes (%) (Auto) 4 % (24-48) Monocytes (%) (Auto) 3 % (0-9) Eosinophils (%) (Auto) 0 % (0-3) Basophils (%) (Auto) 0 % (0-3) Neutrophils # (Auto) 11.2 x10^3uL (1.8-7.7) Lymphocytes # (Auto) 0.4 x10^3/uL (1.0-4.8) Monocytes # (Auto) 0.3 x10^3/uL (0.0-1.1) Eosinophils # (Auto) 0.0 x10^3/uL (0.0-0.7) Basophils # (Auto) 0.0 x10^3/uL (0.0-0.2) Sodium Level 147 mmol/L (136-145) Potassium Level 4.5 mmol/L (3.5-5.1) Chloride Level 113 mmol/L (98-107) Carbon Dioxide Level 27 mmol/L (21-32) Anion Gap 7 (6-14) Blood Urea Nitrogen 53 mg/dL (7-20) Creatinine 1.0 mg/dL (0.6-1.0) Estimated GFR (Cockcroft-Gault) 56.6 Glucose Level 196 mg/dL (70-99) Calcium Level 8.3 mg/dL (8.5-10.1) Test 09/27/17 07:30 09/27/17 14:38 O2 Saturation 96 % (92-99) Arterial Blood pH 7.41 (7.35-7.45) Arterial Blood pCO2 at Patient Temp 39 mmHg (35-46) Arterial Blood pO2 at Patient Temp 91 mmHg (65-108) Arterial Blood HCO3 24 mmol/L (21-28) Arterial Blood Base Excess 0 mmol/L (-3-3) FiO2 40% Glucose (Fingerstick) 172 mg/dL (70-99) Medications Active Scripts Medications Dose Route/Sig Max Daily Dose Days Date Category Gabapentin 300 Mg Capsule 300 Mg PO TID 09/18/17 Reported Cymbalta (Duloxetine Hcl) 60 Mg Capsule.dr Penny Cap PO BID 09/18/17 Reported Hydrochlorothiazide Tablet (Hydrochlorothiazide) 25 Mg Tablet 1 Tab PO DAILY 09/17/17 Reported Xanax (Alprazolam) 1 Mg Tablet 1 Tab PO TID PRN 09/17/17 Reported Comments CXR REVIEWED NO CHANGE Impression . 1. Acute hypoxic respiratory failure/ARDS 2. Anemia 3. COPD 4. Acute renal failure 5. Sepsis with hypotension 6. S/P Bronch so far BAL negative Plan . SPOKE WITH PRN SEDATION CXR ABOUT THE SAME, OXYGENATION IS BETTER WILL TRY TO START WEANING IN COUPLE OF DAYS MAY NEED SOME FREE WATER NA IS UP HOLD OFF ON CONTINUE VERSED 1. SEDATE NOTED ANCA NEGATIVE 2. AC mode 3. ANTIBX PER ID Influenza screen neg. Micafungin added for budding yeast on BAL. 4. CT chest with diffuse parenchymal GG infiltrates 5. FOLLOW NEPHRO INPUT 6. Hematology following for workup of anemia. 7. TUBE FEED 8. ON STEROIDS 9. TX PRBC prn RAKEL MCKENNA MD Sep 27, 2017 15:37
[2017-09-27] MEDS: ENOXAPARIN 40 MG/0.4 ML SYRINGE. SQ SCH (17:58)
[2017-09-28] VITALS (25 sets, daily range): BP systolic 85–181; BP diastolic 56–115
[2017-09-28] MEDS: PIPERACILLIN/TAZO IV Push 3.375 GM VIAL. IVP SCH ×4 (00:02→18:34)
[2017-09-28] MEDS: INSULIN ASPART 300 UNITS/3 ML INSULN.PEN SQ SCH ×4 (00:08→18:00)
[2017-09-28] MEDS: IPRATRPIUM/ALBUTEROL 0.5/2.5MG 3 ML NEBU. NEB SCH ×6 (04:06→23:55)
[2017-09-28] MEDS: methylPREDNISolone SOD SUCC PF 125 MG/2 ML VIAL. IV SCH ×3 (05:32→21:03)
[2017-09-28 06:04] LABS: BASO % 0 % (0-3); EOS % 0 % (0-3); HEMATOCRIT 32.6 % (36.0-47.0); HEMOGLOBIN 9.9 g/dL (12.0-15.5); LYMPH # 0.4 x10^3/uL (1.0-4.8); LYMPH % 2 % (24-48); MEAN CORPUSCULAR HEMOGLOBIN 25 pg (25-35); MEAN CORPUSCULAR HGB CONC 30 g/dL (31-37); MEAN CORPUSCULAR VOLUME 84 fL (79-100); MONO % 2 % (0-9); NEUT % 95 % (31-73); PLATELET COUNT 303 x10^3/uL (140-400); RED BLOOD COUNT 3.88 x10^6/uL (3.50-5.40); WHITE BLOOD COUNT 14.6 x10^3/uL (4.0-11.0)
[2017-09-28 06:13] LABS: CALCIUM 8.4 mg/dL (8.5-10.1); CREATININE 0.9 mg/dL (0.6-1.0); GFR 63.9; POTASSIUM 4.7 mmol/L (3.5-5.1)
[2017-09-28] MEDS: PROPOFOL 100 ML IV PRN ×3 (07:50→21:04)
--- NOTE | 2017-09-28 08:17 | RAD ---
Single view of the Chest 09/28/2017 11:00 AM Indication: RF/ARDS 108 Comparison: Chest radiograph, yesterday Findings: Stable support lines and tubes including endotracheal tube, enteric tube, and right internal jugular central line. No pneumothorax is identified. Small left pleural effusion is similar. Decreased inspiratory volumes are noted which augments the cardiomediastinal silhouette and pulmonary vasculature. Diffuse interstitial coarsening and areas of airspace opacification are unchanged. No acute osseous changes. Impression: 1. Stable support lines and tubes 2. Similar appearance of the chest including decreased inspiratory volumes and patchy interstitial and airspace opacities. 3. Stable small left pleural effusion
--- NOTE | 2017-09-28 08:30 | PDOC ---
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 SKIN: No rash IV: ok Labs Lab Laboratory Tests Test 09/27/17 14:38 09/27/17 18:04 09/28/17 00:04 09/28/17 05:00 Glucose (Fingerstick) 172 mg/dL (70-99) 180 mg/dL (70-99) 163 mg/dL (70-99) White Blood Count 14.6 x10^3/uL (4.0-11.0) Red Blood Count 3.88 x10^6/uL (3.50-5.40) Hemoglobin 9.9 g/dL (12.0-15.5) Hematocrit 32.6 % (36.0-47.0) Mean Corpuscular Volume 84 fL (79-100) Mean Corpuscular Hemoglobin 25 pg (25-35) Mean Corpuscular Hemoglobin Concent 30 g/dL (31-37) Red Cell Distribution Width 28.0 % (11.5-14.5) Platelet Count 303 x10^3/uL (140-400) Neutrophils (%) (Auto) 95 % (31-73) Lymphocytes (%) (Auto) 2 % (24-48) Monocytes (%) (Auto) 2 % (0-9) Eosinophils (%) (Auto) 0 % (0-3) Basophils (%) (Auto) 0 % (0-3) Neutrophils # (Auto) 13.9 x10^3uL (1.8-7.7) Lymphocytes # (Auto) 0.4 x10^3/uL (1.0-4.8) Monocytes # (Auto) 0.4 x10^3/uL (0.0-1.1) Eosinophils # (Auto) 0.0 x10^3/uL (0.0-0.7) Basophils # (Auto) 0.0 x10^3/uL (0.0-0.2) Sodium Level 145 mmol/L (136-145) Potassium Level 4.7 mmol/L (3.5-5.1) Chloride Level 111 mmol/L (98-107) Carbon Dioxide Level 26 mmol/L (21-32) Anion Gap 8 (6-14) Blood Urea Nitrogen 51 mg/dL (7-20) Creatinine 0.9 mg/dL (0.6-1.0) Estimated GFR (Cockcroft-Gault) 63.9 Glucose Level 177 mg/dL (70-99) Calcium Level 8.4 mg/dL (8.5-10.1) Test 09/28/17 05:34 Glucose (Fingerstick) 169 mg/dL (70-99) Micro culture neg Objective Assessment Acute Resp failure - intubated Strep/Legionella antigens - neg. S/p Bronch 09/20 , no growth to date Hypotension, now off Levophed Lactic normal/Procalcitonin mild - elevation Pulm infiltrates - ARDS ? if transfusions could be playing into resp failure Anemia - on arrival s/p PRBCs - GI following Leukocytosis - on steroids now and S/p PRBCs GEO -stable Transaminitis - ? reactive COPD H/o Leg wounds - no recent abx per for wounds - last amox 6 weeks ago Influenza vaccine 09/17 - given Plan Plan of Care cont zosyn, Resp viral panel/Silver stain was ordered but cancelled by Pathology F/u Mycoplasma 09/20 pending F/u labs and cults elevated wbc likely sec to steroids cont supportive care d/w likely will need trach CHRIS RODRIGUEZ MD Sep 28, 2017 08:30
[2017-09-28] MEDS: BUDESONIDE 0.5 MG/2 ML NEBU. NEB SCH ×2 (08:40→19:45)
[2017-09-28 08:58] LABS: HCO3 ABG 24 mmol/L (21-28); PCO2 ABG 37 mmHg (35-46); PH ABG 7.43 (7.35-7.45); PO2 ABG 87 mmHg (65-108); SAT O2 ABG 96 % (92-99)
[2017-09-28] MEDS: CHLORHEXIDINE 0.12% 15 ML MOUTHWASH. MM SCH ×2 (09:00→21:03)
[2017-09-28 09:05] LABS: FIO2 ABG 40
[2017-09-28] MEDS: PANTOPRAZOLE IV PUSH 40 MG VIAL. IVP SCH (09:35)
--- NOTE | 2017-09-28 12:12 | PDOC ---
PROGRESS NOTES Chief Complaint Chief Complaint Acute hypoxic respiratory failure consistent with ARDS Pneumonia Hypotension COPD Sepsis Leukocytosis - on steroids now and S/p PRBCs Anemia, acute on chronic Transaminitis - ? reactive GEO -stable Tobaccoism Anxiety d/o H/o Leg wounds - no recent abx per for wounds - last amox 6 weeks ago Influenza vaccine 09/17 - given History of Present Illness History of Present Illness Intubated: AC//400/40% with 5% PEEP pt. more restless today pt not using accessory respiratory muscles today OG feeding tube and [place] in place Cared discussed with Vitals Vitals Vital Signs Date Time Temp Pulse Resp B/P (MAP) Pulse Ox O2 Delivery O2 Flow Rate FiO2 09/28/17 11:38 99 Ventilator 09/28/17 06:00 70 24 132/78 (96) 09/28/17 04:00 97.5 97.5 Physical Exam Physical Exam PERRLA General: No acute distress, Other (SEDATED) Heart: Normal S1, Normal S2, No murmurs Lungs: Clear, Other (No wheezes or crackles ) Abdomen: Normal bowel sounds, Soft, No tenderness, No hepatosplenomegaly, No masses Extremities: Other (2+ BLE EDEMA) Skin: No rashes, No significant lesion Labs LABS Laboratory Tests Test 09/27/17 14:38 09/27/17 18:04 09/28/17 00:04 09/28/17 05:00 Glucose (Fingerstick) 172 mg/dL (70-99) 180 mg/dL (70-99) 163 mg/dL (70-99) White Blood Count 14.6 x10^3/uL (4.0-11.0) Red Blood Count 3.88 x10^6/uL (3.50-5.40) Hemoglobin 9.9 g/dL (12.0-15.5) Hematocrit 32.6 % (36.0-47.0) Mean Corpuscular Volume 84 fL (79-100) Mean Corpuscular Hemoglobin 25 pg (25-35) Mean Corpuscular Hemoglobin Concent 30 g/dL (31-37) Red Cell Distribution Width 28.0 % (11.5-14.5) Platelet Count 303 x10^3/uL (140-400) Neutrophils (%) (Auto) 95 % (31-73) Lymphocytes (%) (Auto) 2 % (24-48) Monocytes (%) (Auto) 2 % (0-9) Eosinophils (%) (Auto) 0 % (0-3) Basophils (%) (Auto) 0 % (0-3) Neutrophils # (Auto) 13.9 x10^3uL (1.8-7.7) Lymphocytes # (Auto) 0.4 x10^3/uL (1.0-4.8) Monocytes # (Auto) 0.4 x10^3/uL (0.0-1.1) Eosinophils # (Auto) 0.0 x10^3/uL (0.0-0.7) Basophils # (Auto) 0.0 x10^3/uL (0.0-0.2) Sodium Level 145 mmol/L (136-145) Potassium Level 4.7 mmol/L (3.5-5.1) Chloride Level 111 mmol/L (98-107) Carbon Dioxide Level 26 mmol/L (21-32) Anion Gap 8 (6-14) Blood Urea Nitrogen 51 mg/dL (7-20) Creatinine 0.9 mg/dL (0.6-1.0) Estimated GFR (Cockcroft-Gault) 63.9 Glucose Level 177 mg/dL (70-99) Calcium Level 8.4 mg/dL (8.5-10.1) Test 09/28/17 05:34 09/28/17 08:00 Glucose (Fingerstick) 169 mg/dL (70-99) O2 Saturation 96 % (92-99) Arterial Blood pH 7.43 (7.35-7.45) Arterial Blood pCO2 at Patient Temp 37 mmHg (35-46) Arterial Blood pO2 at Patient Temp 87 mmHg (65-108) Arterial Blood HCO3 24 mmol/L (21-28) Arterial Blood Base Excess 0 mmol/L (-3-3) FiO2 40 Review of Systems Review of Systems Unable - pt. intubated Assessment and Plan Assessmemt and Plan Problems Medical Problems: (1) Dyspnea Status: Acute (2) Hypoalbuminemia Status: Acute (3) Metabolic acidosis Status: Acute (4) Pneumonia Status: Acute Assessment: Acute hypoxic respiratory failure consistent with ARDS Pneumonia Hypotension COPD Sepsis Leukocytosis - on steroids now and S/p PRBCs Anemia, acute on chronic Transaminitis - ? reactive GEO -stable Tobaccoism Anxiety d/o H/o Leg wounds - no recent abx per for wounds - last amox 6 weeks ago Influenza vaccine 09/17 - given Plan: Continue ICU monitoring Continue home meds Continue abx per ID Continue to wean ventilation Consulted PT/OT Recheck labs in am Problems: Comment Review of Relevant I have reviewed the following items tha (where applicable) has been applied. Labs Laboratory Tests Test 09/26/17 12:30 09/26/17 17:12 09/26/17 23:51 09/27/17 05:39 Glucose (Fingerstick) 186 mg/dL (70-99) 179 mg/dL (70-99) 181 mg/dL (70-99) 186 mg/dL (70-99) Test 09/27/17 06:00 09/27/17 07:30 09/27/17 14:38 09/27/17 18:04 White Blood Count 12.0 x10^3/uL (4.0-11.0) Red Blood Count 3.69 x10^6/uL (3.50-5.40) Hemoglobin 9.3 g/dL (12.0-15.5) Hematocrit 31.0 % (36.0-47.0) Mean Corpuscular Volume 84 fL (79-100) Mean Corpuscular Hemoglobin 25 pg (25-35) Mean Corpuscular Hemoglobin Concent 30 g/dL (31-37) Red Cell Distribution Width 28.9 % (11.5-14.5) Platelet Count 282 x10^3/uL (140-400) Neutrophils (%) (Auto) 93 % (31-73) Lymphocytes (%) (Auto) 4 % (24-48) Monocytes (%) (Auto) 3 % (0-9) Eosinophils (%) (Auto) 0 % (0-3) Basophils (%) (Auto) 0 % (0-3) Neutrophils # (Auto) 11.2 x10^3uL (1.8-7.7) Lymphocytes # (Auto) 0.4 x10^3/uL (1.0-4.8) Monocytes # (Auto) 0.3 x10^3/uL (0.0-1.1) Eosinophils # (Auto) 0.0 x10^3/uL (0.0-0.7) Basophils # (Auto) 0.0 x10^3/uL (0.0-0.2) Sodium Level 147 mmol/L (136-145) Potassium Level 4.5 mmol/L (3.5-5.1) Chloride Level 113 mmol/L (98-107) Carbon Dioxide Level 27 mmol/L (21-32) Anion Gap 7 (6-14) Blood Urea Nitrogen 53 mg/dL (7-20) Creatinine 1.0 mg/dL (0.6-1.0) Estimated GFR (Cockcroft-Gault) 56.6 Glucose Level 196 mg/dL (70-99) Calcium Level 8.3 mg/dL (8.5-10.1) O2 Saturation 96 % (92-99) Arterial Blood pH 7.41 (7.35-7.45) Arterial Blood pCO2 at Patient Temp 39 mmHg (35-46) Arterial Blood pO2 at Patient Temp 91 mmHg (65-108) Arterial Blood HCO3 24 mmol/L (21-28) Arterial Blood Base Excess 0 mmol/L (-3-3) FiO2 40% Glucose (Fingerstick) 172 mg/dL (70-99) 180 mg/dL (70-99) Test 09/28/17 00:04 09/28/17 05:00 09/28/17 05:34 09/28/17 08:00 Glucose (Fingerstick) 163 mg/dL (70-99) 169 mg/dL (70-99) White Blood Count 14.6 x10^3/uL (4.0-11.0) Red Blood Count 3.88 x10^6/uL (3.50-5.40) Hemoglobin 9.9 g/dL (12.0-15.5) Hematocrit 32.6 % (36.0-47.0) Mean Corpuscular Volume 84 fL (79-100) Mean Corpuscular Hemoglobin 25 pg (25-35) Mean Corpuscular Hemoglobin Concent 30 g/dL (31-37) Red Cell Distribution Width 28.0 % (11.5-14.5) Platelet Count 303 x10^3/uL (140-400) Neutrophils (%) (Auto) 95 % (31-73) Lymphocytes (%) (Auto) 2 % (24-48) Monocytes (%) (Auto) 2 % (0-9) Eosinophils (%) (Auto) 0 % (0-3) Basophils (%) (Auto) 0 % (0-3) Neutrophils # (Auto) 13.9 x10^3uL (1.8-7.7) Lymphocytes # (Auto) 0.4 x10^3/uL (1.0-4.8) Monocytes # (Auto) 0.4 x10^3/uL (0.0-1.1) Eosinophils # (Auto) 0.0 x10^3/uL (0.0-0.7) Basophils # (Auto) 0.0 x10^3/uL (0.0-0.2) Sodium Level 145 mmol/L (136-145) Potassium Level 4.7 mmol/L (3.5-5.1) Chloride Level 111 mmol/L (98-107) Carbon Dioxide Level 26 mmol/L (21-32) Anion Gap 8 (6-14) Blood Urea Nitrogen 51 mg/dL (7-20) Creatinine 0.9 mg/dL (0.6-1.0) Estimated GFR (Cockcroft-Gault) 63.9 Glucose Level 177 mg/dL (70-99) Calcium Level 8.4 mg/dL (8.5-10.1) O2 Saturation 96 % (92-99) Arterial Blood pH 7.43 (7.35-7.45) Arterial Blood pCO2 at Patient Temp 37 mmHg (35-46) Arterial Blood pO2 at Patient Temp 87 mmHg (65-108) Arterial Blood HCO3 24 mmol/L (21-28) Arterial Blood Base Excess 0 mmol/L (-3-3) FiO2 40 Laboratory Tests Test 09/27/17 14:38 09/27/17 18:04 09/28/17 00:04 09/28/17 05:00 Glucose (Fingerstick) 172 mg/dL (70-99) 180 mg/dL (70-99) 163 mg/dL (70-99) White Blood Count 14.6 x10^3/uL (4.0-11.0) Red Blood Count 3.88 x10^6/uL (3.50-5.40) Hemoglobin 9.9 g/dL (12.0-15.5) Hematocrit 32.6 % (36.0-47.0) Mean Corpuscular Volume 84 fL (79-100) Mean Corpuscular Hemoglobin 25 pg (25-35) Mean Corpuscular Hemoglobin Concent 30 g/dL (31-37) Red Cell Distribution Width 28.0 % (11.5-14.5) Platelet Count 303 x10^3/uL (140-400) Neutrophils (%) (Auto) 95 % (31-73) Lymphocytes (%) (Auto) 2 % (24-48) Monocytes (%) (Auto) 2 % (0-9) Eosinophils (%) (Auto) 0 % (0-3) Basophils (%) (Auto) 0 % (0-3) Neutrophils # (Auto) 13.9 x10^3uL (1.8-7.7) Lymphocytes # (Auto) 0.4 x10^3/uL (1.0-4.8) Monocytes # (Auto) 0.4 x10^3/uL (0.0-1.1) Eosinophils # (Auto) 0.0 x10^3/uL (0.0-0.7) Basophils # (Auto) 0.0 x10^3/uL (0.0-0.2) Sodium Level 145 mmol/L (136-145) Potassium Level 4.7 mmol/L (3.5-5.1) Chloride Level 111 mmol/L (98-107) Carbon Dioxide Level 26 mmol/L (21-32) Anion Gap 8 (6-14) Blood Urea Nitrogen 51 mg/dL (7-20) Creatinine 0.9 mg/dL (0.6-1.0) Estimated GFR (Cockcroft-Gault) 63.9 Glucose Level 177 mg/dL (70-99) Calcium Level 8.4 mg/dL (8.5-10.1) Test 09/28/17 05:34 09/28/17 08:00 Glucose (Fingerstick) 169 mg/dL (70-99) O2 Saturation 96 % (92-99) Arterial Blood pH 7.43 (7.35-7.45) Arterial Blood pCO2 at Patient Temp 37 mmHg (35-46) Arterial Blood pO2 at Patient Temp 87 mmHg (65-108) Arterial Blood HCO3 24 mmol/L (21-28) Arterial Blood Base Excess 0 mmol/L (-3-3) FiO2 40 Microbiology 09/17/17 Blood Culture - Final, Complete NO GROWTH AFTER 5 DAYS 09/20/17 AFB Specimen Processing Tissue - Final, Resulted 09/20/17 Acid Fast Bacilli Culture, Resulted Pending 09/20/17 Gram Stain - Final, Resulted 09/20/17 Fungal Culture - Preliminary, Resulted 09/20/17 Fungal Culture Result 1 - Preliminary, Resulted Medications Current Medications Sodium Chloride 1,000 ml @ 125 mls/hr 1X ONCE IV Last administered on 15:54; Start 09/17/17 at 15:15; Stop 09/17/17 at 23:14; Status DC Ondansetron HCl (Zofran) 4 mg PRN Q8HRS PRN IV NAUSEA/VOMITING; Start at 16:30; Stop 09/18/17 at 16:29; Status DC Ceftriaxone Sodium 50 ml @ 0 mls/hr 1X ONCE IV Last administered on 17:33; Start 09/17/17 at 16:45; Stop 09/17/17 at 16:46; Status DC Azithromycin 250 ml @ 250 mls/hr 1X ONCE IV Last administered on 09/17/17 22:38; Start 09/17/17 at 16:30; Stop 09/17/17 at 17:29; Status DC Albuterol/ Ipratropium (Duoneb) 3 ml 1X ONCE NEB Last administered on 17:00; Start 09/17/17 at 16:45; Stop 09/17/17 at 16:46; Status DC Potassium Chloride (Klor-Con) 40 meq 1X ONCE PO Last administered on 16:57; Start 09/17/17 at 16:45; Stop 09/17/17 at 16:46; Status DC Azithromycin (Zithromax) 250 mg DAILY PO Last administered on 09/18/17 10:25 ; Start 09/18/17 at 09:00; Stop 09/19/17 at 10:30; Status DC Ceftriaxone Sodium 1 gm/ Dextrose 50 ml @ 100 mls/hr Q24H IV ; Start 09/17/17 at 17:15; Status UNV Albuterol/ Ipratropium (Duoneb) 3 ml Q4HRS NEB Last administered on 09/28/17 11:37; Start 09/17/17 at 20:00 Ceftriaxone Sodium (Rocephin) 1 gm Q24H IVP Last administered on 09/18/17 17: 55; Start 09/18/17 at 16:00; Stop 09/19/17 at 10:30; Status DC Guaifenesin (Robitussin Dm) 10 ml PRN Q6HRS PRN PO COUGH; Start 09/17/17 at 17 :15 Sodium Chloride 1,000 ml @ 125 mls/hr 1X ONCE IV Last administered on 17:45; Start 09/17/17 at 17:15; Stop 09/17/17 at 22:12; Status DC Info (Do NOT chart on this placeholder) 1 each 1X ONCE MC ; Start 09/17/17 at 19:00; Stop 09/17/17 at 19:01; Status UNV Influenza Virus Vaccine Quadrival (Fluarix Quad [id number] Syringe) 0.5 ml ONCE ONCE VAX IM ; Start 09/17/17 at 21:00; Stop 09/17/17 at 21:01; Status DC Sodium Chloride 1,000 ml @ 130 mls/hr 1X ONCE IV Last administered on 22:31; Start 09/17/17 at 22:30; Stop 09/18/17 at 06:11; Status DC Sodium Bicarbonate 50 meq 1X ONCE IV Last administered on 09/17/17 22:31; Start 09/17/17 at 22:30; Stop 09/17/17 at 22:31; Status DC Alprazolam (Xanax) 1 mg PRN TID PRN PO ANXIETY Last administered on 09/19/17 02:19; Start 09/17/17 at 22:30 Furosemide (Lasix) 20 mg 1X ONCE IVP Last administered on 09/18/17 06:24; Start 09/18/17 at 06:30; Stop 09/18/17 at 06:31; Status DC Potassium Chloride (Klor-Con) 40 meq 1X ONCE PO Last administered on 10:25; Start 09/18/17 at 09:00; Stop 09/18/17 at 09:01; Status DC Iron Sucrose 500 mg/Sodium Chloride 275 ml @ 78.571 mls/ hr 1X ONCE IV Last administered on 09/18/17 10:24; Start 09/18/17 at 09:00; Stop 09/18/17 at 12 :29; Status DC Furosemide (Lasix) 20 mg 1X ONCE IVP Last administered on 09/18/17 10:30; Start 09/18/17 at 10:00; Stop 09/18/17 at 10:22; Status DC Pantoprazole Sodium (Protonix) 40 mg DAILYAC PO Last administered on 10:47; Start 09/18/17 at 11:00; Stop 09/19/17 at 13:41; Status DC Furosemide (Lasix) 20 mg 1X ONCE IVP Last administered on 09/18/17 10:47; Start 09/18/17 at 10:45; Stop 09/18/17 at 10:46; Status DC Potassium Chloride (Klor-Con) 40 meq 1X ONCE PO ; Start 09/18/17 at 11:45; Stop 09/18/17 at 11:46; Status DC Oxycodone/ Acetaminophen (Percocet 5/325) 1 tab PRN Q6HRS PRN PO PAIN Last administered on 09/18/17 13:23; Start 09/18/17 at 12:15 Lorazepam (Ativan) 1 mg PRN Q4HRS PRN IV ANXIETY / AGITATION Last administered on 09/18/17 12:25; Start 09/18/17 at 12:15; Stop 09/18/17 at 13:34; Status DC Fentanyl Citrate (Fentanyl 2ml Vial) 50 mcg PRN Q2HR PRN IV PAIN Last administered on 09/19/17 04:09; Start 09/18/17 at 12:15 Lorazepam (Ativan) 2 mg PRN Q4HRS PRN IV ANXIETY / AGITATION Last administered on 09/23/17 14:29; Start 09/18/17 at 13:30 Quetiapine Fumarate (SEROquel) 25 mg HS PO Last administered on 09/18/17 21: 03; Start 09/18/17 at 21:00; Stop 09/19/17 at 10:35; Status DC Haloperidol Lactate (Haldol) 5 mg PRN Q12HRS PRN IVP AGITATION; Start at 13:45 Lorazepam (Ativan) 1 mg PRN Q4HRS PRN IV ANXIETY / AGITATION; Start 09/19/17 at 10:15; Stop 09/19/17 at 10:18; Status DC Lorazepam (Ativan) 4 mg 1X ONCE IV ; Start 09/19/17 at 10:30; Stop 09/19/17 at 10:31; Status DC Vancomycin HCl (Vanco Per Pharmacy) 1 each PRN DAILY PRN MC SEE COMMENTS Last administered on 09/23/17 12:36; Start 09/19/17 at 10:30; Stop 09/24/17 at 08 :36; Status DC Piperacillin Sod/ Tazobactam Sod (Zosyn Per Pharmacy) 1 each PRN DAILY PRN MC SEE COMMENTS; Start 09/19/17 at 10:30; Stop 09/24/17 at 08:41; Status DC Vancomycin HCl 2 gm/Dextrose 500 ml @ 250 mls/hr 1X ONCE IV Last administered on 09/19/17 14:53; Start 09/19/17 at 11:00; Stop 09/19/17 at 12 :59; Status DC Piperacillin Sod/ Tazobactam Sod (Zosyn) 3.375 gm Q6HRS IVP Last administered on 09/28/17 05:32; Start 09/19/17 at 11:00 Budesonide (Pulmicort) 0.5 mg RTBID NEB Last administered on 09/28/17 08:40; Start 09/19/17 at 20:00 Budesonide (Pulmicort) 0.5 mg 1X ONCE NEB Last administered on 09/19/17 12: 50; Start 09/19/17 at 10:45; Stop 09/19/17 at 10:46; Status DC Pantoprazole Sodium (Protonix Vial) 40 mg DAILYAC IVP Last administered on 09:35; Start 09/19/17 at 11:30 Furosemide (Lasix) 40 mg DAILY IVP ; Start 09/19/17 at 11:00; Stop 09/20/17 at 13:20; Status DC Methylprednisolone Sodium Succinate (SOLU-Medrol 125MG VIAL) 125 mg 1X ONCE IV Last administered on 09/19/17 13:23; Start 09/19/17 at 10:45; Stop at 10:46; Status DC Prednisone (Prednisone) 40 mg DAILY PO ; Start 09/19/17 at 11:00; Stop at 09:02; Status DC Methylprednisolone Sodium Succinate (SOLU-Medrol 125MG VIAL) 125 mg Q8HRS IV Last administered on 09/23/17t 05:43; Start 09/19/17 at 14:00; Stop 09/23/17 at 10:40; Status DC Midazolam HCl 100 ml @ 0 mls/hr CONT PRN IV SEE I/O RECORD; Start 09/19/17 at 11:00; Stop 09/19/17 at 12:51; Status DC Midazolam HCl (Versed) 5 mg 1X ONCE IV ; Start 09/19/17 at 11:00; Stop at 11:01; Status DC Fentanyl Citrate (Fentanyl 2ml Vial) 50 mcg 1X ONCE IV ; Start 09/19/17 at 11: 00; Stop 09/19/17 at 11:01; Status DC Midazolam HCl 100 ml @ As Directed STK-MED ONCE IV ; Start 09/19/17 at 10:55; Stop 09/19/17 at 10:56; Status DC Midazolam HCl (Versed) 5 mg STK-MED ONCE .ROUTE ; Start 09/19/17 at 10:55; Stop 09/19/17 at 10:56; Status DC Propofol 100 ml @ As Directed STK-MED ONCE IV ; Start 09/19/17 at 10:59; Stop 09/19/17 at 11:00; Status DC Norepinephrine Bitartrate 250 ml @ As Directed STK-MED ONCE IV ; Start at 10:59; Stop 09/19/17 at 11:00; Status DC Furosemide (Lasix) 20 mg 1X ONCE IVP ; Start 09/19/17 at 11:15; Stop at 11:16; Status DC Vecuronium Burns (Norcuron Bolus) 10 mg STK-MED ONCE IV ; Start 09/19/17 at 11:21; Stop 09/19/17 at 11:22; Status DC Fentanyl Citrate 30 ml @ 0 mls/hr CONT PRN IV PROTOCOL Last administered on t 15:08; Start 09/19/17 at 11:30; Stop 09/23/17 at 15:24; Status DC Vecuronium Burns (Norcuron Bolus) 6 mg 1X ONCE IV Last administered on 09/19 11:42; Start 09/19/17 at 11:30; Stop 09/19/17 at 11:39; Status DC Propofol 10 ml @ 0 mls/hr 1X ONCE IV Last administered on 09/19/17 11:30; Start 09/19/17 at 11:30; Stop 09/19/17 at 11:39; Status DC Midazolam HCl 100 ml @ 0 mls/hr CONT PRN IV SEE I/O RECORD Last administered on 09/27/17 00:40; Start 09/19/17 at 11:30 Norepinephrine Bitartrate 250 ml @ 0 mls/hr CONT PRN IV SEE I/O RECORD Last administered on 09/24/17 05:18; Start 09/19/17 at 11:30 Succinylcholine Chloride (Anectine) 100 mg 1X ONCE IV Last administered on 11:42; Start 09/19/17 at 11:30; Stop 09/19/17 at 11:39; Status DC Sodium Bicarbonate 50 meq 1X ONCE IV Last administered on 09/19/17 13:23; Start 09/19/17 at 12:45; Stop 09/19/17 at 12:46; Status DC Sodium Bicarbonate 50 meq 1X ONCE IV Last administered on 09/19/17 13:23; Start 09/19/17 at 12:45; Stop 09/19/17 at 12:46; Status DC Lidocaine/Sodium Bicarbonate (Buffered Lidocaine 1%) 20 ml STK-MED ONCE IJ ; Start 09/19/17 at 13:34; Stop 09/19/17 at 13:35; Status DC Vecuronium Burns (Norcuron Bolus) 10 mg 1X ONCE IV Last administered on 15:05; Start 09/19/17 at 14:00; Stop 09/19/17 at 14:02; Status DC Lidocaine/Sodium Bicarbonate (Buffered Lidocaine 1%) 3 ml 1X ONCE IJ ; Start 09/19/17 at 14:45; Stop 09/19/17 at 14:46; Status DC Vancomycin HCl 1.25 gm/Dextrose 250 ml @ 166.667 mls/hr Q24H IV Last administered on 09/23/17 17:19; Start 09/20/17 at 15:00; Stop 09/24/17 at 08 :35; Status DC Vancomycin HCl 1 each 1X ONCE MC Last administered on 09/21/17 14:30; Start 09/21/17 at 14:30; Stop 09/21/17 at 14:31; Status DC Azithromycin 500 mg/Sodium Chloride 250 ml @ 250 mls/hr Q24H IV Last administered on 09/23/17 17:19; Start 09/19/17 at 16:30; Stop 09/24/17 at 08 :35; Status DC Norepinephrine Bitartrate (Levophed 8mg/ 250ml Premix Drip) 8 mg STK-MED ONCE IV ; Start 09/19/17 at 11:00; Stop 09/20/17 at 08:44; Status DC Midazolam HCl (Versed) 5 mg STK-MED ONCE .ROUTE ; Start 09/19/17 at 11:00; Stop 09/20/17 at 08:44; Status DC Amino Acids/ Glycerin/ Electrolytes 1,000 ml @ 80 mls/hr [id number] IV Last administered on 09/21/17 01:21; Start 09/20/17 at 10:00; Stop 09/22/17 at 07 :02; Status DC Info 1 each PRN DAILY PRN MC SEE COMMENTS; Start 09/20/17 at 10:00; Stop at 12:14; Status DC Furosemide (Lasix) 20 mg 1X ONCE IVP Last administered on 09/20/17 10:21; Start 09/20/17 at 10:15; Stop 09/20/17 at 10:18; Status DC Info 1 each PRN DAILY PRN MC SEE COMMENTS; Start 09/20/17 at 11:00; Status UNV Vecuronium Burns (Norcuron Bolus) 10 mg 1X ONCE IV Last administered on 12:03; Start 09/20/17 at 11:15; Stop 09/20/17 at 11:24; Status DC Atropine Sulfate 0.5 mg STK-MED ONCE .ROUTE ; Start 09/20/17 at 11:47; Stop at 11:48; Status DC Epinephrine HCl (EPINEPHrine SYRINGE) 1 mg STK-MED ONCE .ROUTE ; Start at 11:47; Stop 09/20/17 at 11:48; Status DC Atropine Sulfate 0.5 mg STK-MED ONCE .ROUTE ; Start 09/20/17 at 12:00; Stop at 09:11; Status DC Epinephrine HCl (EPINEPHrine SYRINGE) 1 mg STK-MED ONCE .ROUTE ; Start at 12:00; Stop 09/21/17 at 09:11; Status DC Furosemide (Lasix) 20 mg DAILY IVP ; Start 09/21/17 at 11:15; Stop 09/21/17 at 11:20; Status DC Lorazepam (Ativan) 1 mg PRN Q1HR PRN IV ANXIETY / AGITATION Last administered on 09/28/17 09:36; Start 09/21/17 at 11:15 Albumin Human 250 ml @ 62.5 mls/hr 1X ONCE IV Last administered on 11:57; Start 09/21/17 at 11:30; Stop 09/21/17 at 15:29; Status DC Albumin Human 250 ml @ 62.5 mls/hr 1X ONCE IV Last administered on 14:29; Start 09/21/17 at 11:30; Stop 09/21/17 at 15:29; Status DC Micafungin Sodium 100 mg/Dextrose 100 ml @ 100 mls/hr Q24H IV Last administered on 09/23/17 13:17; Start 09/21/17 at 12:00; Stop 09/24/17 at 08 :35; Status DC Vecuronium Burns (Norcuron Bolus) 4 mg PRN Q4HRS PRN IV AGITATION; Start at 15:00 Dexmedetomidine HCl 200 mcg/ Sodium Chloride 50 ml @ 0 mls/hr CONT PRN IV PER PROTOCOL Last administered on 09/21/17 15:54; Start 09/21/17 at 15:30 Sodium Chloride 500 ml @ 500 mls/hr 1X PRN PRN IV SEE COMMENTS; Start at 15:30 Atropine Sulfate 0.5 mg PRN Q5MIN PRN IV SEE COMMENTS; Start 09/21/17 at 15:30 Propofol 100 ml @ 0 mls/hr CONT PRN IV PER PROTOCOL Last administered on 07:50; Start 09/21/17 at 16:45 Furosemide (Lasix) 20 mg 1X ONCE IVP Last administered on 09/22/17 09:41; Start 09/22/17 at 10:15; Stop 09/22/17 at 10:16; Status DC Chlorhexidine Gluconate (Peridex) 15 ml BID MM Last administered on 09/28/17 09:00; Start 09/22/17 at 21:00 Furosemide (Lasix) 20 mg 1X ONCE IVP Last administered on 09/22/17 17:55; Start 09/22/17 at 18:00; Stop 09/22/17 at 18:01; Status DC Furosemide (Lasix) 20 mg DAILY IVP Last administered on 09/23/17 13:16; Start 09/23/17 at 11:30; Stop 09/24/17 at 08:40; Status DC Methylprednisolone Sodium Succinate (SOLU-Medrol 125MG VIAL) 80 mg Q8HRS IV Last administered on 09/28/17 05:32; Start 09/23/17 at 14:00 Fentanyl Citrate 55 ml @ 0 mls/hr CONT PRN PRN IV PER PROTOCOL Last administered on 09/26/17 23:21; Start 09/23/17 at 12:15 Dextrose 1,000 ml @ 25 mls/hr Q24H IV Last administered on 09/27/17 14:35; Start 09/23/17 at 11:45 Enoxaparin Sodium (Lovenox Per Pharmacy Prophylaxis Dosing) 1 each PRN DAILY PRN MC SEE COMMENTS; Start 09/23/17 at 16:30; Stop 09/24/17 at 08:41; Status DC Enoxaparin Sodium (Lovenox 40mg Syringe) 40 mg Q24H SQ Last administered on 17:58; Start 09/23/17 at 17:00 Bisacodyl (Dulcolax Tab) 5 mg PRN DAILY PRN PO CONSTIPATION; Start 09/24/17 at 09:30 Insulin Aspart (NovoLOG) 0-5 UNITS Q6HRS SQ Last administered on 09/28/17 05: 35; Start 09/25/17 at 18:00 Dextrose (Dextrose 50%-Water Syringe) 12.5 gm PRN Q15MIN PRN IV SEE COMMENTS; Start 09/25/17 at 12:30 Active Scripts Active Reported Gabapentin 300 Mg Capsule 300 Mg PO TID Cymbalta (Duloxetine Hcl) 60 Mg Capsule. 1 Cap PO BID Hydrochlorothiazide Tablet (Hydrochlorothiazide) 25 Mg Tablet 1 Tab PO DAILY Xanax (Alprazolam) 1 Mg Tablet 1 Tab PO TID PRN Vitals/I & O Vital Sign - Last 24 Hours 09/27/17 09/27/17 09/27/17 09/27/17 12:00 12:00 13:00 13:32 Temp 99.0 99.0 Pulse 69 69 Resp 24 24 B/P (MAP) 117/71 (86) 134/84 (101) Pulse Ox 98 98 98 O2 Delivery Mechanical Ventilator Ventilator Ventilator Ventilator 09/27/17 09/27/17 09/27/17 09/27/17 14:00 15:00 15:21 16:00 Pulse 69 69 Resp 24 24 B/P (MAP) 101/62 (75) 145/87 (106) Pulse Ox 98 98 98 O2 Delivery Ventilator Ventilator Ventilator Mechanical Ventilator 09/27/17 09/27/17 09/27/17 09/27/17 16:00 17:00 18:00 19:00 Temp 99.0 99.0 Pulse 69 69 69 69 Resp 24 24 24 24 B/P (MAP) 143/77 (99) 148/80 (102) 102/63 (76) 105/67 (80) Pulse Ox 98 98 98 98 O2 Delivery Ventilator Ventilator Ventilator Ventilator 09/27/17 09/27/17 09/27/17 09/27/17 19:52 19:53 20:00 20:00 Temp 97.8 97.8 Pulse 79 Resp 24 B/P (MAP) 102/60 (74) Pulse Ox 98 98 99 O2 Delivery Ventilator Ventilator Ventilator Mechanical Ventilator 09/27/17 09/27/17 09/27/17 09/27/17 21:00 21:50 22:00 23:00 Pulse 74 64 69 Resp 24 24 24 B/P (MAP) 97/53 (68) 110/69 (83) 112/71 (85) Pulse Ox 99 98 99 100 O2 Delivery Ventilator Ventilator Ventilator Ventilator 09/27/17 09/28/17 09/28/17 09/28/17 23:55 00:00 00:00 01:00 Temp 98.2 98.2 Pulse 61 61 Resp 24 24 B/P (MAP) 89/60 (70) 98/60 (73) Pulse Ox 100 100 100 O2 Delivery Ventilator Ventilator Mechanical Ventilator Ventilator 09/28/17 09/28/17 09/28/17 09/28/17 02:00 02:05 03:00 04:00 Pulse 66 68 Resp 24 24 B/P (MAP) 99/65 (76) 108/67 (81) Pulse Ox 100 98 100 O2 Delivery Ventilator Ventilator Ventilator Mechanical Ventilator 09/28/17 09/28/17 09/28/17 09/28/17 04:00 04:07 05:00 05:57 Temp 97.5 97.5 Pulse 74 89 Resp 24 24 B/P (MAP) 106/73 (84) 125/85 (98) Pulse Ox 100 98 99 98 O2 Delivery Ventilator Ventilator Ventilator Ventilator 09/28/17 09/28/17 09/28/17 09/28/17 06:00 08:00 08:41 11:38 Pulse 70 Resp 24 B/P (MAP) 132/78 (96) Pulse Ox 98 99 99 O2 Delivery Ventilator Mechanical Ventilator Ventilator Ventilator Intake and Output 09/27/17 09/27/17 09/28/17 15:00 23:00 07:00 Intake Total 400 ml 400 ml 2276 ml Output Total 1224 ml 490 ml Balance 400 ml -824 ml 1786 ml DENILSON KRISHNAMURTHY III DO Sep 28, 2017 12:12
[2017-09-28] MEDS: IV DEXTROSE 5% 1,000 ML IV SCH (12:59)
--- NOTE | 2017-09-28 13:35 | PDOC ---
PROGRESS NOTES Subjective Subjective SEEN IN FOLLOW UP OF ARF Objective Objective Vital Signs Date Time Temp Pulse Resp B/P (MAP) Pulse Ox O2 Delivery O2 Flow Rate FiO2 09/28/17 13:06 100 Ventilator 09/28/17 12:00 98.4 90 24 134/84 (101) 98.4 09/25/17 08:00 Intake and Output 09/28/17 07:00 Intake Total 3076 ml Output Total 1714 ml Balance 1362 ml IV Total 1085 ml Tube Feeding 1591 ml Other 400 ml Output Urine Total 1714 ml # Bowel Movements 1 Physical Exam Abdomen: Normal bowel sounds, Soft, No tenderness, No hepatosplenomegaly, No masses Heart: Regular rate, Normal S1, Normal S2, No murmurs, Gallops Extremities: Other (1+ BLE EDEMA) General: Other (SEDATED) Lungs: Clear to auscultation, Normal air movement, Other (ON VENT) Diagnosis RENAL FAILURE: Acute Assessment Assessment Problems Medical Problems: (1) Dyspnea Status: Acute (2) Hypoalbuminemia Status: Acute (3) Metabolic acidosis Status: Acute (4) Pneumonia Status: Acute Plan Plan of Care SERUM SODIUM IS NOW NORMAL. SOME LE EDEMA NOTED. RENAL FUNCTION IS BETTER PER CREATININE DECREASING. SHE IS NONOLIGURIC. CONT MANAGEMENT WITH VENT AND ANTIBIOTICS FOR PNEUMONIA AND ASSOCIATED ARDS. Comment Review of Relevant I have reviewed the following items tha (where applicable) has been applied. Labs Laboratory Tests Test 09/26/17 17:12 09/26/17 23:51 09/27/17 05:39 09/27/17 06:00 Glucose (Fingerstick) 179 mg/dL (70-99) 181 mg/dL (70-99) 186 mg/dL (70-99) White Blood Count 12.0 x10^3/uL (4.0-11.0) Red Blood Count 3.69 x10^6/uL (3.50-5.40) Hemoglobin 9.3 g/dL (12.0-15.5) Hematocrit 31.0 % (36.0-47.0) Mean Corpuscular Volume 84 fL (79-100) Mean Corpuscular Hemoglobin 25 pg (25-35) Mean Corpuscular Hemoglobin Concent 30 g/dL (31-37) Red Cell Distribution Width 28.9 % (11.5-14.5) Platelet Count 282 x10^3/uL (140-400) Neutrophils (%) (Auto) 93 % (31-73) Lymphocytes (%) (Auto) 4 % (24-48) Monocytes (%) (Auto) 3 % (0-9) Eosinophils (%) (Auto) 0 % (0-3) Basophils (%) (Auto) 0 % (0-3) Neutrophils # (Auto) 11.2 x10^3uL (1.8-7.7) Lymphocytes # (Auto) 0.4 x10^3/uL (1.0-4.8) Monocytes # (Auto) 0.3 x10^3/uL (0.0-1.1) Eosinophils # (Auto) 0.0 x10^3/uL (0.0-0.7) Basophils # (Auto) 0.0 x10^3/uL (0.0-0.2) Sodium Level 147 mmol/L (136-145) Potassium Level 4.5 mmol/L (3.5-5.1) Chloride Level 113 mmol/L (98-107) Carbon Dioxide Level 27 mmol/L (21-32) Anion Gap 7 (6-14) Blood Urea Nitrogen 53 mg/dL (7-20) Creatinine 1.0 mg/dL (0.6-1.0) Estimated GFR (Cockcroft-Gault) 56.6 Glucose Level 196 mg/dL (70-99) Calcium Level 8.3 mg/dL (8.5-10.1) Test 09/27/17 07:30 09/27/17 14:38 09/27/17 18:04 09/28/17 00:04 O2 Saturation 96 % (92-99) Arterial Blood pH 7.41 (7.35-7.45) Arterial Blood pCO2 at Patient Temp 39 mmHg (35-46) Arterial Blood pO2 at Patient Temp 91 mmHg (65-108) Arterial Blood HCO3 24 mmol/L (21-28) Arterial Blood Base Excess 0 mmol/L (-3-3) FiO2 40% Glucose (Fingerstick) 172 mg/dL (70-99) 180 mg/dL (70-99) 163 mg/dL (70-99) Test 09/28/17 05:00 09/28/17 05:34 09/28/17 08:00 09/28/17 13:06 White Blood Count 14.6 x10^3/uL (4.0-11.0) Red Blood Count 3.88 x10^6/uL (3.50-5.40) Hemoglobin 9.9 g/dL (12.0-15.5) Hematocrit 32.6 % (36.0-47.0) Mean Corpuscular Volume 84 fL (79-100) Mean Corpuscular Hemoglobin 25 pg (25-35) Mean Corpuscular Hemoglobin Concent 30 g/dL (31-37) Red Cell Distribution Width 28.0 % (11.5-14.5) Platelet Count 303 x10^3/uL (140-400) Neutrophils (%) (Auto) 95 % (31-73) Lymphocytes (%) (Auto) 2 % (24-48) Monocytes (%) (Auto) 2 % (0-9) Eosinophils (%) (Auto) 0 % (0-3) Basophils (%) (Auto) 0 % (0-3) Neutrophils # (Auto) 13.9 x10^3uL (1.8-7.7) Lymphocytes # (Auto) 0.4 x10^3/uL (1.0-4.8) Monocytes # (Auto) 0.4 x10^3/uL (0.0-1.1) Eosinophils # (Auto) 0.0 x10^3/uL (0.0-0.7) Basophils # (Auto) 0.0 x10^3/uL (0.0-0.2) Sodium Level 145 mmol/L (136-145) Potassium Level 4.7 mmol/L (3.5-5.1) Chloride Level 111 mmol/L (98-107) Carbon Dioxide Level 26 mmol/L (21-32) Anion Gap 8 (6-14) Blood Urea Nitrogen 51 mg/dL (7-20) Creatinine 0.9 mg/dL (0.6-1.0) Estimated GFR (Cockcroft-Gault) 63.9 Glucose Level 177 mg/dL (70-99) Calcium Level 8.4 mg/dL (8.5-10.1) Glucose (Fingerstick) 169 mg/dL (70-99) 144 mg/dL (70-99) O2 Saturation 96 % (92-99) Arterial Blood pH 7.43 (7.35-7.45) Arterial Blood pCO2 at Patient Temp 37 mmHg (35-46) Arterial Blood pO2 at Patient Temp 87 mmHg (65-108) Arterial Blood HCO3 24 mmol/L (21-28) Arterial Blood Base Excess 0 mmol/L (-3-3) FiO2 40 Laboratory Tests Test 09/27/17 14:38 09/27/17 18:04 09/28/17 00:04 09/28/17 05:00 Glucose (Fingerstick) 172 mg/dL (70-99) 180 mg/dL (70-99) 163 mg/dL (70-99) White Blood Count 14.6 x10^3/uL (4.0-11.0) Red Blood Count 3.88 x10^6/uL (3.50-5.40) Hemoglobin 9.9 g/dL (12.0-15.5) Hematocrit 32.6 % (36.0-47.0) Mean Corpuscular Volume 84 fL (79-100) Mean Corpuscular Hemoglobin 25 pg (25-35) Mean Corpuscular Hemoglobin Concent 30 g/dL (31-37) Red Cell Distribution Width 28.0 % (11.5-14.5) Platelet Count 303 x10^3/uL (140-400) Neutrophils (%) (Auto) 95 % (31-73) Lymphocytes (%) (Auto) 2 % (24-48) Monocytes (%) (Auto) 2 % (0-9) Eosinophils (%) (Auto) 0 % (0-3) Basophils (%) (Auto) 0 % (0-3) Neutrophils # (Auto) 13.9 x10^3uL (1.8-7.7) Lymphocytes # (Auto) 0.4 x10^3/uL (1.0-4.8) Monocytes # (Auto) 0.4 x10^3/uL (0.0-1.1) Eosinophils # (Auto) 0.0 x10^3/uL (0.0-0.7) Basophils # (Auto) 0.0 x10^3/uL (0.0-0.2) Sodium Level 145 mmol/L (136-145) Potassium Level 4.7 mmol/L (3.5-5.1) Chloride Level 111 mmol/L (98-107) Carbon Dioxide Level 26 mmol/L (21-32) Anion Gap 8 (6-14) Blood Urea Nitrogen 51 mg/dL (7-20) Creatinine 0.9 mg/dL (0.6-1.0) Estimated GFR (Cockcroft-Gault) 63.9 Glucose Level 177 mg/dL (70-99) Calcium Level 8.4 mg/dL (8.5-10.1) Test 09/28/17 05:34 09/28/17 08:00 09/28/17 13:06 Glucose (Fingerstick) 169 mg/dL (70-99) 144 mg/dL (70-99) O2 Saturation 96 % (92-99) Arterial Blood pH 7.43 (7.35-7.45) Arterial Blood pCO2 at Patient Temp 37 mmHg (35-46) Arterial Blood pO2 at Patient Temp 87 mmHg (65-108) Arterial Blood HCO3 24 mmol/L (21-28) Arterial Blood Base Excess 0 mmol/L (-3-3) FiO2 40 Microbiology 09/17/17 Blood Culture - Final, Complete NO GROWTH AFTER 5 DAYS 09/20/17 AFB Specimen Processing Tissue - Final, Resulted 09/20/17 Acid Fast Bacilli Culture, Resulted Pending 09/20/17 Gram Stain - Final, Resulted 09/20/17 Fungal Culture - Preliminary, Resulted 09/20/17 Fungal Culture Result 1 - Preliminary, Resulted Medications Current Medications Sodium Chloride 1,000 ml @ 125 mls/hr 1X ONCE IV Last administered on 15:54; Start 09/17/17 at 15:15; Stop 09/17/17 at 23:14; Status DC Ondansetron HCl (Zofran) 4 mg PRN Q8HRS PRN IV NAUSEA/VOMITING; Start at 16:30; Stop 09/18/17 at 16:29; Status DC Ceftriaxone Sodium 50 ml @ 0 mls/hr 1X ONCE IV Last administered on 17:33; Start 09/17/17 at 16:45; Stop 09/17/17 at 16:46; Status DC Azithromycin 250 ml @ 250 mls/hr 1X ONCE IV Last administered on 09/17/17 22:38; Start 09/17/17 at 16:30; Stop 09/17/17 at 17:29; Status DC Albuterol/ Ipratropium (Duoneb) 3 ml 1X ONCE NEB Last administered on 17:00; Start 09/17/17 at 16:45; Stop 09/17/17 at 16:46; Status DC Potassium Chloride (Klor-Con) 40 meq 1X ONCE PO Last administered on 16:57; Start 09/17/17 at 16:45; Stop 09/17/17 at 16:46; Status DC Azithromycin (Zithromax) 250 mg DAILY PO Last administered on 09/18/17 10:25 ; Start 09/18/17 at 09:00; Stop 09/19/17 at 10:30; Status DC Ceftriaxone Sodium 1 gm/ Dextrose 50 ml @ 100 mls/hr Q24H IV ; Start 09/17/17 at 17:15; Status UNV Albuterol/ Ipratropium (Duoneb) 3 ml Q4HRS NEB Last administered on 09/28/17 11:37; Start 09/17/17 at 20:00 Ceftriaxone Sodium (Rocephin) 1 gm Q24H IVP Last administered on 09/18/17 17: 55; Start 09/18/17 at 16:00; Stop 09/19/17 at 10:30; Status DC Guaifenesin (Robitussin Dm) 10 ml PRN Q6HRS PRN PO COUGH; Start 09/17/17 at 17 :15 Sodium Chloride 1,000 ml @ 125 mls/hr 1X ONCE IV Last administered on 17:45; Start 09/17/17 at 17:15; Stop 09/17/17 at 22:12; Status DC Info (Do NOT chart on this placeholder) 1 each 1X ONCE MC ; Start 09/17/17 at 19:00; Stop 09/17/17 at 19:01; Status UNV Influenza Virus Vaccine Quadrival (Fluarix Quad 3556-3444 Syringe) 0.5 ml ONCE ONCE VAX IM ; Start 09/17/17 at 21:00; Stop 09/17/17 at 21:01; Status DC Sodium Chloride 1,000 ml @ 130 mls/hr 1X ONCE IV Last administered on 22:31; Start 09/17/17 at 22:30; Stop 09/18/17 at 06:11; Status DC Sodium Bicarbonate 50 meq 1X ONCE IV Last administered on 09/17/17 22:31; Start 09/17/17 at 22:30; Stop 09/17/17 at 22:31; Status DC Alprazolam (Xanax) 1 mg PRN TID PRN PO ANXIETY Last administered on 09/19/17 02:19; Start 09/17/17 at 22:30 Furosemide (Lasix) 20 mg 1X ONCE IVP Last administered on 09/18/17 06:24; Start 09/18/17 at 06:30; Stop 09/18/17 at 06:31; Status DC Potassium Chloride (Klor-Con) 40 meq 1X ONCE PO Last administered on 10:25; Start 09/18/17 at 09:00; Stop 09/18/17 at 09:01; Status DC Iron Sucrose 500 mg/Sodium Chloride 275 ml @ 78.571 mls/ hr 1X ONCE IV Last administered on 09/18/17 10:24; Start 09/18/17 at 09:00; Stop 09/18/17 at 12 :29; Status DC Furosemide (Lasix) 20 mg 1X ONCE IVP Last administered on 09/18/17 10:30; Start 09/18/17 at 10:00; Stop 09/18/17 at 10:22; Status DC Pantoprazole Sodium (Protonix) 40 mg DAILYAC PO Last administered on 10:47; Start 09/18/17 at 11:00; Stop 09/19/17 at 13:41; Status DC Furosemide (Lasix) 20 mg 1X ONCE IVP Last administered on 09/18/17 10:47; Start 09/18/17 at 10:45; Stop 09/18/17 at 10:46; Status DC Potassium Chloride (Klor-Con) 40 meq 1X ONCE PO ; Start 09/18/17 at 11:45; Stop 09/18/17 at 11:46; Status DC Oxycodone/ Acetaminophen (Percocet 5/325) 1 tab PRN Q6HRS PRN PO PAIN Last administered on 09/18/17 13:23; Start 09/18/17 at 12:15 Lorazepam (Ativan) 1 mg PRN Q4HRS PRN IV ANXIETY / AGITATION Last administered on 09/18/17 12:25; Start 09/18/17 at 12:15; Stop 09/18/17 at 13:34; Status DC Fentanyl Citrate (Fentanyl 2ml Vial) 50 mcg PRN Q2HR PRN IV PAIN Last administered on 09/19/17 04:09; Start 09/18/17 at 12:15 Lorazepam (Ativan) 2 mg PRN Q4HRS PRN IV ANXIETY / AGITATION Last administered on 09/23/17 14:29; Start 09/18/17 at 13:30 Quetiapine Fumarate (SEROquel) 25 mg HS PO Last administered on 09/18/17 21: 03; Start 09/18/17 at 21:00; Stop 09/19/17 at 10:35; Status DC Haloperidol Lactate (Haldol) 5 mg PRN Q12HRS PRN IVP AGITATION; Start at 13:45 Lorazepam (Ativan) 1 mg PRN Q4HRS PRN IV ANXIETY / AGITATION; Start 09/19/17 at 10:15; Stop 09/19/17 at 10:18; Status DC Lorazepam (Ativan) 4 mg 1X ONCE IV ; Start 09/19/17 at 10:30; Stop 09/19/17 at 10:31; Status DC Vancomycin HCl (Vanco Per Pharmacy) 1 each PRN DAILY PRN MC SEE COMMENTS Last administered on 09/23/17 12:36; Start 09/19/17 at 10:30; Stop 09/24/17 at 08 :36; Status DC Piperacillin Sod/ Tazobactam Sod (Zosyn Per Pharmacy) 1 each PRN DAILY PRN MC SEE COMMENTS; Start 09/19/17 at 10:30; Stop 09/24/17 at 08:41; Status DC Vancomycin HCl 2 gm/Dextrose 500 ml @ 250 mls/hr 1X ONCE IV Last administered on 09/19/17 14:53; Start 09/19/17 at 11:00; Stop 09/19/17 at 12 :59; Status DC Piperacillin Sod/ Tazobactam Sod (Zosyn) 3.375 gm Q6HRS IVP Last administered on 09/28/17 12:58; Start 09/19/17 at 11:00 Budesonide (Pulmicort) 0.5 mg RTBID NEB Last administered on 09/28/17 08:40; Start 09/19/17 at 20:00 Budesonide (Pulmicort) 0.5 mg 1X ONCE NEB Last administered on 09/19/17 12: 50; Start 09/19/17 at 10:45; Stop 09/19/17 at 10:46; Status DC Pantoprazole Sodium (Protonix Vial) 40 mg DAILYAC IVP Last administered on 09:35; Start 09/19/17 at 11:30 Furosemide (Lasix) 40 mg DAILY IVP ; Start 09/19/17 at 11:00; Stop 09/20/17 at 13:20; Status DC Methylprednisolone Sodium Succinate (SOLU-Medrol 125MG VIAL) 125 mg 1X ONCE IV Last administered on 09/19/17 13:23; Start 09/19/17 at 10:45; Stop at 10:46; Status DC Prednisone (Prednisone) 40 mg DAILY PO ; Start 09/19/17 at 11:00; Stop at 09:02; Status DC Methylprednisolone Sodium Succinate (SOLU-Medrol 125MG VIAL) 125 mg Q8HRS IV Last administered on 09/23/17 05:43; Start 09/19/17 at 14:00; Stop 09/23/17 at 10:40; Status DC Midazolam HCl 100 ml @ 0 mls/hr CONT PRN IV SEE I/O RECORD; Start 09/19/17 at 11:00; Stop 09/19/17 at 12:51; Status DC Midazolam HCl (Versed) 5 mg 1X ONCE IV ; Start 09/19/17 at 11:00; Stop at 11:01; Status DC Fentanyl Citrate (Fentanyl 2ml Vial) 50 mcg 1X ONCE IV ; Start 09/19/17 at 11: 00; Stop 09/19/17 at 11:01; Status DC Midazolam HCl 100 ml @ As Directed STK-MED ONCE IV ; Start 09/19/17 at 10:55; Stop 09/19/17 at 10:56; Status DC Midazolam HCl (Versed) 5 mg STK-MED ONCE .ROUTE ; Start 09/19/17 at 10:55; Stop 09/19/17 at 10:56; Status DC Propofol 100 ml @ As Directed STK-MED ONCE IV ; Start 09/19/17 at 10:59; Stop 09/19/17 at 11:00; Status DC Norepinephrine Bitartrate 250 ml @ As Directed STK-MED ONCE IV ; Start at 10:59; Stop 09/19/17 at 11:00; Status DC Furosemide (Lasix) 20 mg 1X ONCE IVP ; Start 09/19/17 at 11:15; Stop at 11:16; Status DC Vecuronium [place] (Norcuron Bolus) 10 mg STK-MED ONCE IV ; Start 09/19/17 at 11:21; Stop 09/19/17 at 11:22; Status DC Fentanyl Citrate 30 ml @ 0 mls/hr CONT PRN IV PROTOCOL Last administered on 15:08; Start 09/19/17 at 11:30; Stop 09/23/17 at 15:24; Status DC Vecuronium [place] (Norcuron Bolus) 6 mg 1X ONCE IV Last administered on 09/19 11:42; Start 09/19/17 at 11:30; Stop 09/19/17 at 11:39; Status DC Propofol 10 ml @ 0 mls/hr 1X ONCE IV Last administered on 09/19/17 11:30; Start 09/19/17 at 11:30; Stop 09/19/17 at 11:39; Status DC Midazolam HCl 100 ml @ 0 mls/hr CONT PRN IV SEE I/O RECORD Last administered on 09/27/17 00:40; Start 09/19/17 at 11:30 Norepinephrine Bitartrate 250 ml @ 0 mls/hr CONT PRN IV SEE I/O RECORD Last administered on 09/24/17 05:18; Start 09/19/17 at 11:30 Succinylcholine Chloride (Anectine) 100 mg 1X ONCE IV Last administered on 11:42; Start 09/19/17 at 11:30; Stop 09/19/17 at 11:39; Status DC Sodium Bicarbonate 50 meq 1X ONCE IV Last administered on 09/19/17 13:23; Start 09/19/17 at 12:45; Stop 09/19/17 at 12:46; Status DC Sodium Bicarbonate 50 meq 1X ONCE IV Last administered on 09/19/17 13:23; Start 09/19/17 at 12:45; Stop 09/19/17 at 12:46; Status DC Lidocaine/Sodium Bicarbonate (Buffered Lidocaine 1%) 20 ml STK-MED ONCE IJ ; Start 09/19/17 at 13:34; Stop 09/19/17 at 13:35; Status DC Vecuronium [place] (Norcuron Bolus) 10 mg 1X ONCE IV Last administered on 15:05; Start 09/19/17 at 14:00; Stop 09/19/17 at 14:02; Status DC Lidocaine/Sodium Bicarbonate (Buffered Lidocaine 1%) 3 ml 1X ONCE IJ ; Start 09/19/17 at 14:45; Stop 09/19/17 at 14:46; Status DC Vancomycin HCl 1.25 gm/Dextrose 250 ml @ 166.667 mls/hr Q24H IV Last administered on 09/23/17 17:19; Start 09/20/17 at 15:00; Stop 09/24/17 at 08 :35; Status DC Vancomycin HCl 1 each 1X ONCE MC Last administered on 09/21/17 14:30; Start 09/21/17 at 14:30; Stop 09/21/17 at 14:31; Status DC Azithromycin 500 mg/Sodium Chloride 250 ml @ 250 mls/hr Q24H IV Last administered on 09/23/17 17:19; Start 09/19/17 at 16:30; Stop 09/24/17 at 08 :35; Status DC Norepinephrine Bitartrate (Levophed 8mg/ 250ml Premix Drip) 8 mg STK-MED ONCE IV ; Start 09/19/17 at 11:00; Stop 09/20/17 at 08:44; Status DC Midazolam HCl (Versed) 5 mg STK-MED ONCE .ROUTE ; Start 09/19/17 at 11:00; Stop 09/20/17 at 08:44; Status DC Amino Acids/ Glycerin/ Electrolytes 1,000 ml @ 80 mls/hr [id number] IV Last administered on 09/21/17 01:21; Start 09/20/17 at 10:00; Stop 09/22/17 at 07 :02; Status DC Info 1 each PRN DAILY PRN MC SEE COMMENTS; Start 09/20/17 at 10:00; Stop at 12:14; Status DC Furosemide (Lasix) 20 mg 1X ONCE IVP Last administered on 09/20/17 10:21; Start 09/20/17 at 10:15; Stop 09/20/17 at 10:18; Status DC Info 1 each PRN DAILY PRN MC SEE COMMENTS; Start 09/20/17 at 11:00; Status UNV Vecuronium [place] (Norcuron Bolus) 10 mg 1X ONCE IV Last administered on 12:03; Start 09/20/17 at 11:15; Stop 09/20/17 at 11:24; Status DC Atropine Sulfate 0.5 mg STK-MED ONCE .ROUTE ; Start 09/20/17 at 11:47; Stop at 11:48; Status DC Epinephrine HCl (EPINEPHrine SYRINGE) 1 mg STK-MED ONCE .ROUTE ; Start at 11:47; Stop 09/20/17 at 11:48; Status DC Atropine Sulfate 0.5 mg STK-MED ONCE .ROUTE ; Start 09/20/17 at 12:00; Stop at 09:11; Status DC Epinephrine HCl (EPINEPHrine SYRINGE) 1 mg STK-MED ONCE .ROUTE ; Start at 12:00; Stop 09/21/17 at 09:11; Status DC Furosemide (Lasix) 20 mg DAILY IVP ; Start 09/21/17 at 11:15; Stop 09/21/17 at 11:20; Status DC Lorazepam (Ativan) 1 mg PRN Q1HR PRN IV ANXIETY / AGITATION Last administered on 09/28/17 13:02; Start 09/21/17 at 11:15 Albumin Human 250 ml @ 62.5 mls/hr 1X ONCE IV Last administered on 11:57; Start 09/21/17 at 11:30; Stop 09/21/17 at 15:29; Status DC Albumin Human 250 ml @ 62.5 mls/hr 1X ONCE IV Last administered on 14:29; Start 09/21/17 at 11:30; Stop 09/21/17 at 15:29; Status DC Micafungin Sodium 100 mg/Dextrose 100 ml @ 100 mls/hr Q24H IV Last administered on 09/23/17 13:17; Start 09/21/17 at 12:00; Stop 09/24/17 at 08 :35; Status DC Vecuronium [place] (Norcuron Bolus) 4 mg PRN Q4HRS PRN IV AGITATION; Start at 15:00 Dexmedetomidine HCl 200 mcg/ Sodium Chloride 50 ml @ 0 mls/hr CONT PRN IV PER PROTOCOL Last administered on 09/21/17 15:54; Start 09/21/17 at 15:30 Sodium Chloride 500 ml @ 500 mls/hr 1X PRN PRN IV SEE COMMENTS; Start at 15:30 Atropine Sulfate 0.5 mg PRN Q5MIN PRN IV SEE COMMENTS; Start 09/21/17 at 15:30 Propofol 100 ml @ 0 mls/hr CONT PRN IV PER PROTOCOL Last administered on 07:50; Start 09/21/17 at 16:45 Furosemide (Lasix) 20 mg 1X ONCE IVP Last administered on 09/22/17 09:41; Start 09/22/17 at 10:15; Stop 09/22/17 at 10:16; Status DC Chlorhexidine Gluconate (Peridex) 15 ml BID MM Last administered on 09/28/17 09:00; Start 09/22/17 at 21:00 Furosemide (Lasix) 20 mg 1X ONCE IVP Last administered on 09/22/17 17:55; Start 09/22/17 at 18:00; Stop 09/22/17 at 18:01; Status DC Furosemide (Lasix) 20 mg DAILY IVP Last administered on 09/23/17 13:16; Start 09/23/17 at 11:30; Stop 09/24/17 at 08:40; Status DC Methylprednisolone Sodium Succinate (SOLU-Medrol 125MG VIAL) 80 mg Q8HRS IV Last administered on 09/28/17 05:32; Start 09/23/17 at 14:00 Fentanyl Citrate 55 ml @ 0 mls/hr CONT PRN PRN IV PER PROTOCOL Last administered on 09/26/17 23:21; Start 09/23/17 at 12:15 Dextrose 1,000 ml @ 25 mls/hr Q24H IV Last administered on 09/28/17 12:59; Start 09/23/17 at 11:45 Enoxaparin Sodium (Lovenox Per Pharmacy Prophylaxis Dosing) 1 each PRN DAILY PRN MC SEE COMMENTS; Start 09/23/17 at 16:30; Stop 09/24/17 at 08:41; Status DC Enoxaparin Sodium (Lovenox 40mg Syringe) 40 mg Q24H SQ Last administered on 17:58; Start 09/23/17 at 17:00 Bisacodyl (Dulcolax Tab) 5 mg PRN DAILY PRN PO CONSTIPATION; Start 09/24/17 at 09:30 Insulin Aspart (NovoLOG) 0-5 UNITS Q6HRS SQ Last administered on 09/28/17 05: 35; Start 09/25/17 at 18:00 Dextrose (Dextrose 50%-Water Syringe) 12.5 gm PRN Q15MIN PRN IV SEE COMMENTS; Start 09/25/17 at 12:30 Active Scripts Active Reported Gabapentin 300 Mg Capsule 300 Mg PO TID Cymbalta (Duloxetine Hcl) 60 Mg Capsule. 1 Cap PO BID Hydrochlorothiazide Tablet (Hydrochlorothiazide) 25 Mg Tablet 1 Tab PO DAILY Xanax (Alprazolam) 1 Mg Tablet 1 Tab PO TID PRN Vitals/I & O Vital Sign - Last 24 Hours 09/27/17 09/27/17 09/27/17 09/27/17 13:32 14:00 15:00 15:21 Pulse 69 69 Resp 24 24 B/P (MAP) 101/62 (75) 145/87 (106) Pulse Ox 98 98 98 98 O2 Delivery Ventilator Ventilator Ventilator Ventilator 09/27/17 09/27/17 09/27/17 09/27/17 16:00 16:00 17:00 18:00 Temp 99.0 99.0 Pulse 69 69 69 Resp 24 24 24 B/P (MAP) 143/77 (99) 148/80 (102) 102/63 (76) Pulse Ox 98 98 98 O2 Delivery Mechanical Ventilator Ventilator Ventilator Ventilator 09/27/17 09/27/17 09/27/17 09/27/17 19:00 19:52 19:53 20:00 Temp 97.8 97.8 Pulse 69 79 Resp 24 24 B/P (MAP) 105/67 (80) 102/60 (74) Pulse Ox 98 98 98 99 O2 Delivery Ventilator Ventilator Ventilator Ventilator 09/27/17 09/27/17 09/27/17 09/27/17 20:00 21:00 21:50 22:00 Pulse 74 64 Resp 24 24 B/P (MAP) 97/53 (68) 110/69 (83) Pulse Ox 99 98 99 O2 Delivery Mechanical Ventilator Ventilator Ventilator Ventilator 09/27/17 09/27/17 09/28/17 09/28/17 23:00 23:55 00:00 00:00 Temp 98.2 98.2 Pulse 69 61 Resp 24 24 B/P (MAP) 112/71 (85) 89/60 (70) Pulse Ox 100 100 100 O2 Delivery Ventilator Ventilator Ventilator Mechanical Ventilator 09/28/17 09/28/17 09/28/17 09/28/17 01:00 02:00 02:05 03:00 Pulse 61 66 68 Resp 24 24 24 B/P (MAP) 98/60 (73) 99/65 (76) 108/67 (81) Pulse Ox 100 100 98 100 O2 Delivery Ventilator Ventilator Ventilator Ventilator 09/28/17 09/28/17 09/28/17 09/28/17 04:00 04:00 04:07 05:00 Temp 97.5 97.5 Pulse 74 89 Resp 24 24 B/P (MAP) 106/73 (84) 125/85 (98) Pulse Ox 100 98 99 O2 Delivery Mechanical Ventilator Ventilator Ventilator Ventilator 09/28/17 09/28/17 09/28/17 09/28/17 05:57 06:00 07:00 08:00 Pulse 70 60 Resp 24 24 B/P (MAP) 132/78 (96) 91/61 (71) Pulse Ox 98 98 98 O2 Delivery Ventilator Ventilator Ventilator Mechanical Ventilator 09/28/17 09/28/17 09/28/17 09/28/17 08:00 08:41 09:00 10:00 Temp 98.2 98.2 Pulse 62 54 88 Resp 24 24 24 B/P (MAP) 95/64 (74) 85/56 (66) 120/77 (91) Pulse Ox 100 99 99 100 O2 Delivery Ventilator Ventilator Ventilator Ventilator 09/28/17 09/28/17 09/28/17 09/28/17 11:00 11:38 12:00 13:06 Temp 98.4 98.4 Pulse 80 90 Resp 24 24 B/P (MAP) 119/76 (90) 134/84 (101) Pulse Ox 99 99 100 100 O2 Delivery Ventilator Ventilator Ventilator Ventilator Intake and Output 09/27/17 09/27/17 09/28/17 15:00 23:00 07:00 Intake Total 400 ml 400 ml 2276 ml Output Total 1224 ml 490 ml Balance 400 ml -824 ml 1786 ml ZEFERINO ROCKWELL MD Sep 28, 2017 13:35
[2017-09-28 16:27] LABS: HCO3 ABG 24 mmol/L (21-28); PCO2 ABG 34 mmHg (35-46); PH ABG 7.46 (7.35-7.45); PO2 ABG 80 mmHg (65-108); SAT O2 ABG 96 % (92-99)
[2017-09-28 16:29] LABS: FIO2 ABG 40
--- NOTE | 2017-09-28 16:38 | PDOC ---
PULMONARY PROGRESS NOTES Subjective AC mode, intubated 09/19, OFF SEDATION ON PS 5 VT 400-500 Vitals Vital Signs Date Time Temp Pulse Resp B/P (MAP) Pulse Ox O2 Delivery O2 Flow Rate FiO2 09/28/17 16:00 98.4 93 29 153/98 (116) 99 Ventilator 98.4 Lungs: Clear, Other (No wheezes or crackles ) Cardiovascular: S1, S2 Abdomen: Soft Extremities: No Edema Skin: Warm Labs Laboratory Tests Test 09/26/17 17:12 09/26/17 23:51 09/27/17 05:39 09/27/17 06:00 Glucose (Fingerstick) 179 mg/dL (70-99) 181 mg/dL (70-99) 186 mg/dL (70-99) White Blood Count 12.0 x10^3/uL (4.0-11.0) Red Blood Count 3.69 x10^6/uL (3.50-5.40) Hemoglobin 9.3 g/dL (12.0-15.5) Hematocrit 31.0 % (36.0-47.0) Mean Corpuscular Volume 84 fL (79-100) Mean Corpuscular Hemoglobin 25 pg (25-35) Mean Corpuscular Hemoglobin Concent 30 g/dL (31-37) Red Cell Distribution Width 28.9 % (11.5-14.5) Platelet Count 282 x10^3/uL (140-400) Neutrophils (%) (Auto) 93 % (31-73) Lymphocytes (%) (Auto) 4 % (24-48) Monocytes (%) (Auto) 3 % (0-9) Eosinophils (%) (Auto) 0 % (0-3) Basophils (%) (Auto) 0 % (0-3) Neutrophils # (Auto) 11.2 x10^3uL (1.8-7.7) Lymphocytes # (Auto) 0.4 x10^3/uL (1.0-4.8) Monocytes # (Auto) 0.3 x10^3/uL (0.0-1.1) Eosinophils # (Auto) 0.0 x10^3/uL (0.0-0.7) Basophils # (Auto) 0.0 x10^3/uL (0.0-0.2) Sodium Level 147 mmol/L (136-145) Potassium Level 4.5 mmol/L (3.5-5.1) Chloride Level 113 mmol/L (98-107) Carbon Dioxide Level 27 mmol/L (21-32) Anion Gap 7 (6-14) Blood Urea Nitrogen 53 mg/dL (7-20) Creatinine 1.0 mg/dL (0.6-1.0) Estimated GFR (Cockcroft-Gault) 56.6 Glucose Level 196 mg/dL (70-99) Calcium Level 8.3 mg/dL (8.5-10.1) Test 09/27/17 07:30 09/27/17 14:38 09/27/17 18:04 09/28/17 00:04 O2 Saturation 96 % (92-99) Arterial Blood pH 7.41 (7.35-7.45) Arterial Blood pCO2 at Patient Temp 39 mmHg (35-46) Arterial Blood pO2 at Patient Temp 91 mmHg (65-108) Arterial Blood HCO3 24 mmol/L (21-28) Arterial Blood Base Excess 0 mmol/L (-3-3) FiO2 40% Glucose (Fingerstick) 172 mg/dL (70-99) 180 mg/dL (70-99) 163 mg/dL (70-99) Test 09/28/17 05:00 09/28/17 05:34 09/28/17 08:00 09/28/17 13:06 White Blood Count 14.6 x10^3/uL (4.0-11.0) Red Blood Count 3.88 x10^6/uL (3.50-5.40) Hemoglobin 9.9 g/dL (12.0-15.5) Hematocrit 32.6 % (36.0-47.0) Mean Corpuscular Volume 84 fL (79-100) Mean Corpuscular Hemoglobin 25 pg (25-35) Mean Corpuscular Hemoglobin Concent 30 g/dL (31-37) Red Cell Distribution Width 28.0 % (11.5-14.5) Platelet Count 303 x10^3/uL (140-400) Neutrophils (%) (Auto) 95 % (31-73) Lymphocytes (%) (Auto) 2 % (24-48) Monocytes (%) (Auto) 2 % (0-9) Eosinophils (%) (Auto) 0 % (0-3) Basophils (%) (Auto) 0 % (0-3) Neutrophils # (Auto) 13.9 x10^3uL (1.8-7.7) Lymphocytes # (Auto) 0.4 x10^3/uL (1.0-4.8) Monocytes # (Auto) 0.4 x10^3/uL (0.0-1.1) Eosinophils # (Auto) 0.0 x10^3/uL (0.0-0.7) Basophils # (Auto) 0.0 x10^3/uL (0.0-0.2) Sodium Level 145 mmol/L (136-145) Potassium Level 4.7 mmol/L (3.5-5.1) Chloride Level 111 mmol/L (98-107) Carbon Dioxide Level 26 mmol/L (21-32) Anion Gap 8 (6-14) Blood Urea Nitrogen 51 mg/dL (7-20) Creatinine 0.9 mg/dL (0.6-1.0) Estimated GFR (Cockcroft-Gault) 63.9 Glucose Level 177 mg/dL (70-99) Calcium Level 8.4 mg/dL (8.5-10.1) Glucose (Fingerstick) 169 mg/dL (70-99) 144 mg/dL (70-99) O2 Saturation 96 % (92-99) Arterial Blood pH 7.43 (7.35-7.45) Arterial Blood pCO2 at Patient Temp 37 mmHg (35-46) Arterial Blood pO2 at Patient Temp 87 mmHg (65-108) Arterial Blood HCO3 24 mmol/L (21-28) Arterial Blood Base Excess 0 mmol/L (-3-3) FiO2 40 Test 09/28/17 16:14 O2 Saturation 96 % (92-99) Arterial Blood pH 7.46 (7.35-7.45) Arterial Blood pCO2 at Patient Temp 34 mmHg (35-46) Arterial Blood pO2 at Patient Temp 80 mmHg (65-108) Arterial Blood HCO3 24 mmol/L (21-28) Arterial Blood Base Excess 0 mmol/L (-3-3) FiO2 40 Laboratory Tests Test 09/27/17 18:04 09/28/17 00:04 09/28/17 05:00 09/28/17 05:34 Glucose (Fingerstick) 180 mg/dL (70-99) 163 mg/dL (70-99) 169 mg/dL (70-99) White Blood Count 14.6 x10^3/uL (4.0-11.0) Red Blood Count 3.88 x10^6/uL (3.50-5.40) Hemoglobin 9.9 g/dL (12.0-15.5) Hematocrit 32.6 % (36.0-47.0) Mean Corpuscular Volume 84 fL (79-100) Mean Corpuscular Hemoglobin 25 pg (25-35) Mean Corpuscular Hemoglobin Concent 30 g/dL (31-37) Red Cell Distribution Width 28.0 % (11.5-14.5) Platelet Count 303 x10^3/uL (140-400) Neutrophils (%) (Auto) 95 % (31-73) Lymphocytes (%) (Auto) 2 % (24-48) Monocytes (%) (Auto) 2 % (0-9) Eosinophils (%) (Auto) 0 % (0-3) Basophils (%) (Auto) 0 % (0-3) Neutrophils # (Auto) 13.9 x10^3uL (1.8-7.7) Lymphocytes # (Auto) 0.4 x10^3/uL (1.0-4.8) Monocytes # (Auto) 0.4 x10^3/uL (0.0-1.1) Eosinophils # (Auto) 0.0 x10^3/uL (0.0-0.7) Basophils # (Auto) 0.0 x10^3/uL (0.0-0.2) Sodium Level 145 mmol/L (136-145) Potassium Level 4.7 mmol/L (3.5-5.1) Chloride Level 111 mmol/L (98-107) Carbon Dioxide Level 26 mmol/L (21-32) Anion Gap 8 (6-14) Blood Urea Nitrogen 51 mg/dL (7-20) Creatinine 0.9 mg/dL (0.6-1.0) Estimated GFR (Cockcroft-Gault) 63.9 Glucose Level 177 mg/dL (70-99) Calcium Level 8.4 mg/dL (8.5-10.1) Test 09/28/17 08:00 09/28/17 13:06 09/28/17 16:14 O2 Saturation 96 % (92-99) 96 % (92-99) Arterial Blood pH 7.43 (7.35-7.45) 7.46 (7.35-7.45) Arterial Blood pCO2 at Patient Temp 37 mmHg (35-46) 34 mmHg (35-46) Arterial Blood pO2 at Patient Temp 87 mmHg (65-108) 80 mmHg (65-108) Arterial Blood HCO3 24 mmol/L (21-28) 24 mmol/L (21-28) Arterial Blood Base Excess 0 mmol/L (-3-3) 0 mmol/L (-3-3) FiO2 40 40 Glucose (Fingerstick) 144 mg/dL (70-99) Medications Active Scripts Medications Dose Route/Sig Max Daily Dose Days Date Category Gabapentin 300 Mg Capsule 300 Mg PO TID 09/18/17 Reported Cymbalta (Duloxetine Hcl) 60 Mg Capsule.dr 1 Cap PO BID 09/18/17 Reported Hydrochlorothiazide Tablet (Hydrochlorothiazide) 25 Mg Tablet 1 Tab PO DAILY 09/17/17 Reported Xanax (Alprazolam) 1 Mg Tablet 1 Tab PO TID PRN 09/17/17 Reported Comments CXR REVIEWED NO CHANGE Impression . 1. Acute hypoxic respiratory failure/ARDS 2. Anemia 3. COPD 4. Acute renal failure 5. Sepsis with hypotension 6. S/P Bronch so far BAL negative Plan . SPOKE WITH PRN SEDATION PS TILL QHS POSSIBLE EXTUBATION IN 24-48 HOURS CXR ABOUT THE SAME, OXYGENATION IS BETTER 1. SEDATE NOTED ANCA NEGATIVE 2. AC mode 3. ANTIBX PER ID Influenza screen neg. Micafungin added for budding yeast on BAL. 4. CT chest with diffuse parenchymal GG infiltrates 5. FOLLOW NEPHRO INPUT 6. Hematology following for workup of anemia. 7. TUBE FEED 8. ON STEROIDS 9. [place] PRBC prn RAKEL MCKENNA MD Sep 28, 2017 16:38
[2017-09-28] MEDS: ENOXAPARIN 40 MG/0.4 ML SYRINGE. SQ SCH (17:04)
[2017-09-28] MEDS: fentaNYL HIGH DOSE PCA 55 ML IV PRN (19:13)
[2017-09-29] VITALS (24 sets, daily range): BP systolic 93–145; BP diastolic 58–88
[2017-09-29] MEDS: PIPERACILLIN/TAZO IV Push 3.375 GM VIAL. IVP SCH ×4 (00:28→18:39)
[2017-09-29] MEDS: INSULIN ASPART 300 UNITS/3 ML INSULN.PEN SQ SCH ×4 (00:36→18:00)
[2017-09-29] MEDS: PROPOFOL 100 ML IV PRN ×3 (03:03→14:35)
[2017-09-29] MEDS: IPRATRPIUM/ALBUTEROL 0.5/2.5MG 3 ML NEBU. NEB SCH ×6 (03:34→23:37)
[2017-09-29] MEDS: methylPREDNISolone SOD SUCC PF 125 MG/2 ML VIAL. IV SCH ×3 (05:57→22:12)
[2017-09-29 06:08] LABS: BASO # 0.1 x10^3/uL (0.0-0.2); BASO % 1 % (0-3); EOS % 0 % (0-3); HEMATOCRIT 28.9 % (36.0-47.0); HEMOGLOBIN 8.9 g/dL (12.0-15.5); LYMPH # 0.4 x10^3/uL (1.0-4.8); LYMPH % 4 % (24-48); MEAN CORPUSCULAR HEMOGLOBIN 26 pg (25-35); MEAN CORPUSCULAR HGB CONC 31 g/dL (31-37); MEAN CORPUSCULAR VOLUME 84 fL (79-100); MONO % 4 % (0-9); NEUT % 92 % (31-73); PLATELET COUNT 300 x10^3/uL (140-400); RED BLOOD COUNT 3.44 x10^6/uL (3.50-5.40); RED CELL DISTRIBUTION WIDTH 28.9 % (11.5-14.5); WHITE BLOOD COUNT 11.3 x10^3/uL (4.0-11.0)
[2017-09-29 06:37] LABS: CALCIUM 8.6 mg/dL (8.5-10.1); CREATININE 0.8 mg/dL (0.6-1.0); GFR 73.2; POTASSIUM 4.3 mmol/L (3.5-5.1)
[2017-09-29] MEDS: BUDESONIDE 0.5 MG/2 ML NEBU. NEB SCH ×2 (07:07→20:12)
[2017-09-29 07:26] LABS: HCO3 ABG 23 mmol/L (21-28); PCO2 ABG 36 mmHg (35-46); PH ABG 7.42 (7.35-7.45); PO2 ABG 119 mmHg (65-108); SAT O2 ABG 98 % (92-99)
[2017-09-29 07:29] LABS: FIO2 ABG 40
--- NOTE | 2017-09-29 07:39 | RAD ---
Single view chest History:ARDS An AP view of the chest is submitted. Comparison: 09/28/2017. Findings: There is again endotracheal tube, tip terminating about 2 cm from radha. Enteric catheter courses into the stomach, not fully seen. There is right internal jugular venous catheter with the tip near the cavoatrial junction. There is again obscured left hemidiaphragm compatible with pleural effusion with adjacent infiltrate or atelectasis. No pneumothorax is identified. Other mild interstitial opacity is similar. Impression: Radiographic findings are similar. There is unchanged left pleural effusion with adjacent airspace opacity.
[2017-09-29] MEDS: PANTOPRAZOLE IV PUSH 40 MG VIAL. IVP SCH (08:07)
[2017-09-29] MEDS: CHLORHEXIDINE 0.12% 15 ML MOUTHWASH. MM SCH (08:07)
--- NOTE | 2017-09-29 11:39 | PDOC ---
PROGRESS NOTES Chief Complaint Chief Complaint Acute hypoxic respiratory failure consistent with ARDS Pneumonia Hypotension COPD Sepsis Leukocytosis - on steroids now and S/p PRBCs Anemia, acute on chronic Transaminitis - ? reactive GEO -stable Tobaccoism Anxiety d/o H/o Leg wounds - no recent abx per for wounds - last amox 6 weeks ago Influenza vaccine 09/17 - given History of Present Illness History of Present Illness Pt. seen and examined today in the ICU Intubated: AC//400/40% with 5% PEEP no accessory respiratory muscles noted OG feeding tube and [place]org[place] in place Cared discussed with and RN Vitals Vitals Vital Signs Date Time Temp Pulse Resp B/P (MAP) Pulse Ox O2 Delivery O2 Flow Rate FiO2 09/29/17 11:07 100 Ventilator 09/29/17 10:00 75 24 135/83 (100) 09/29/17 08:00 97.5 97.5 Physical Exam Physical Exam PERRLA General: No acute distress, Other (SEDATED) Heart: Regular rate, Normal S1, Normal S2, No murmurs Lungs: Clear, Other (No wheezes or crackles ) Abdomen: Normal bowel sounds, Soft, No masses Extremities: No clubbing, No cyanosis, Other (1+ BLE EDEMA) Skin: No rashes, No significant lesion Labs LABS Laboratory Tests Test 09/28/17 13:06 09/28/17 16:14 09/28/17 18:35 09/29/17 00:31 Glucose (Fingerstick) 144 mg/dL (70-99) 136 mg/dL (70-99) 192 mg/dL (70-99) O2 Saturation 96 % (92-99) Arterial Blood pH 7.46 (7.35-7.45) Arterial Blood pCO2 at Patient Temp 34 mmHg (35-46) Arterial Blood pO2 at Patient Temp 80 mmHg (65-108) Arterial Blood HCO3 24 mmol/L (21-28) Arterial Blood Base Excess 0 mmol/L (-3-3) FiO2 40 Test 09/29/17 05:59 09/29/17 06:00 09/29/17 07:20 Glucose (Fingerstick) 166 mg/dL (70-99) White Blood Count 11.3 x10^3/uL (4.0-11.0) Red Blood Count 3.44 x10^6/uL (3.50-5.40) Hemoglobin 8.9 g/dL (12.0-15.5) Hematocrit 28.9 % (36.0-47.0) Mean Corpuscular Volume 84 fL (79-100) Mean Corpuscular Hemoglobin 26 pg (25-35) Mean Corpuscular Hemoglobin Concent 31 g/dL (31-37) Red Cell Distribution Width 28.9 % (11.5-14.5) Platelet Count 300 x10^3/uL (140-400) Neutrophils (%) (Auto) 92 % (31-73) Lymphocytes (%) (Auto) 4 % (24-48) Monocytes (%) (Auto) 4 % (0-9) Eosinophils (%) (Auto) 0 % (0-3) Basophils (%) (Auto) 1 % (0-3) Neutrophils # (Auto) 10.4 x10^3uL (1.8-7.7) Lymphocytes # (Auto) 0.4 x10^3/uL (1.0-4.8) Monocytes # (Auto) 0.4 x10^3/uL (0.0-1.1) Eosinophils # (Auto) 0.0 x10^3/uL (0.0-0.7) Basophils # (Auto) 0.1 x10^3/uL (0.0-0.2) Sodium Level 142 mmol/L (136-145) Potassium Level 4.3 mmol/L (3.5-5.1) Chloride Level 110 mmol/L (98-107) Carbon Dioxide Level 25 mmol/L (21-32) Anion Gap 7 (6-14) Blood Urea Nitrogen 49 mg/dL (7-20) Creatinine 0.8 mg/dL (0.6-1.0) Estimated GFR (Cockcroft-Gault) 73.2 Glucose Level 182 mg/dL (70-99) Calcium Level 8.6 mg/dL (8.5-10.1) O2 Saturation 98 % (92-99) Arterial Blood pH 7.42 (7.35-7.45) Arterial Blood pCO2 at Patient Temp 36 mmHg (35-46) Arterial Blood pO2 at Patient Temp 119 mmHg (65-108) Arterial Blood HCO3 23 mmol/L (21-28) Arterial Blood Base Excess -1 mmol/L (-3-3) FiO2 40 Review of Systems Review of Systems Unobtainable- pt sedated and intubated. Assessment and Plan Assessmemt and Plan Problems Medical Problems: (1) Dyspnea Status: Acute (2) Hypoalbuminemia Status: Acute (3) Metabolic acidosis Status: Acute (4) Pneumonia Status: Acute Assessment: Acute hypoxic respiratory failure consistent with ARDS Pneumonia Hypotension COPD Sepsis Leukocytosis - on steroids now and S/p PRBCs Anemia, acute on chronic Transaminitis - ? reactive GEO -stable Tobaccoism Anxiety d/o H/o Leg wounds - no recent abx per for wounds - last amox 6 weeks ago Influenza vaccine 09/17 - given Plan: Continue ICU monitoring Continue home medications Continue Abx per ID Tube feeds Recheck labs in am PT/OT consulted Hope to wean pt. from vent, subspeciality input appreciated Problems: Comment Review of Relevant I have reviewed the following items tha (where applicable) has been applied. Labs Laboratory Tests Test 09/27/17 14:38 09/27/17 18:04 09/28/17 00:04 09/28/17 05:00 Glucose (Fingerstick) 172 mg/dL (70-99) 180 mg/dL (70-99) 163 mg/dL (70-99) White Blood Count 14.6 x10^3/uL (4.0-11.0) Red Blood Count 3.88 x10^6/uL (3.50-5.40) Hemoglobin 9.9 g/dL (12.0-15.5) Hematocrit 32.6 % (36.0-47.0) Mean Corpuscular Volume 84 fL (79-100) Mean Corpuscular Hemoglobin 25 pg (25-35) Mean Corpuscular Hemoglobin Concent 30 g/dL (31-37) Red Cell Distribution Width 28.0 % (11.5-14.5) Platelet Count 303 x10^3/uL (140-400) Neutrophils (%) (Auto) 95 % (31-73) Lymphocytes (%) (Auto) 2 % (24-48) Monocytes (%) (Auto) 2 % (0-9) Eosinophils (%) (Auto) 0 % (0-3) Basophils (%) (Auto) 0 % (0-3) Neutrophils # (Auto) 13.9 x10^3uL (1.8-7.7) Lymphocytes # (Auto) 0.4 x10^3/uL (1.0-4.8) Monocytes # (Auto) 0.4 x10^3/uL (0.0-1.1) Eosinophils # (Auto) 0.0 x10^3/uL (0.0-0.7) Basophils # (Auto) 0.0 x10^3/uL (0.0-0.2) Sodium Level 145 mmol/L (136-145) Potassium Level 4.7 mmol/L (3.5-5.1) Chloride Level 111 mmol/L (98-107) Carbon Dioxide Level 26 mmol/L (21-32) Anion Gap 8 (6-14) Blood Urea Nitrogen 51 mg/dL (7-20) Creatinine 0.9 mg/dL (0.6-1.0) Estimated GFR (Cockcroft-Gault) 63.9 Glucose Level 177 mg/dL (70-99) Calcium Level 8.4 mg/dL (8.5-10.1) Test 09/28/17 05:34 09/28/17 08:00 09/28/17 13:06 09/28/17 16:14 Glucose (Fingerstick) 169 mg/dL (70-99) 144 mg/dL (70-99) O2 Saturation 96 % (92-99) 96 % (92-99) Arterial Blood pH 7.43 (7.35-7.45) 7.46 (7.35-7.45) Arterial Blood pCO2 at Patient Temp 37 mmHg (35-46) 34 mmHg (35-46) Arterial Blood pO2 at Patient Temp 87 mmHg (65-108) 80 mmHg (65-108) Arterial Blood HCO3 24 mmol/L (21-28) 24 mmol/L (21-28) Arterial Blood Base Excess 0 mmol/L (-3-3) 0 mmol/L (-3-3) FiO2 40 40 Test 09/28/17 18:35 09/29/17 00:31 09/29/17 05:59 09/29/17 06:00 Glucose (Fingerstick) 136 mg/dL (70-99) 192 mg/dL (70-99) 166 mg/dL (70-99) White Blood Count 11.3 x10^3/uL (4.0-11.0) Red Blood Count 3.44 x10^6/uL (3.50-5.40) Hemoglobin 8.9 g/dL (12.0-15.5) Hematocrit 28.9 % (36.0-47.0) Mean Corpuscular Volume 84 fL (79-100) Mean Corpuscular Hemoglobin 26 pg (25-35) Mean Corpuscular Hemoglobin Concent 31 g/dL (31-37) Red Cell Distribution Width 28.9 % (11.5-14.5) Platelet Count 300 x10^3/uL (140-400) Neutrophils (%) (Auto) 92 % (31-73) Lymphocytes (%) (Auto) 4 % (24-48) Monocytes (%) (Auto) 4 % (0-9) Eosinophils (%) (Auto) 0 % (0-3) Basophils (%) (Auto) 1 % (0-3) Neutrophils # (Auto) 10.4 x10^3uL (1.8-7.7) Lymphocytes # (Auto) 0.4 x10^3/uL (1.0-4.8) Monocytes # (Auto) 0.4 x10^3/uL (0.0-1.1) Eosinophils # (Auto) 0.0 x10^3/uL (0.0-0.7) Basophils # (Auto) 0.1 x10^3/uL (0.0-0.2) Sodium Level 142 mmol/L (136-145) Potassium Level 4.3 mmol/L (3.5-5.1) Chloride Level 110 mmol/L (98-107) Carbon Dioxide Level 25 mmol/L (21-32) Anion Gap 7 (6-14) Blood Urea Nitrogen 49 mg/dL (7-20) Creatinine 0.8 mg/dL (0.6-1.0) Estimated GFR (Cockcroft-Gault) 73.2 Glucose Level 182 mg/dL (70-99) Calcium Level 8.6 mg/dL (8.5-10.1) Test 09/29/17 07:20 O2 Saturation 98 % (92-99) Arterial Blood pH 7.42 (7.35-7.45) Arterial Blood pCO2 at Patient Temp 36 mmHg (35-46) Arterial Blood pO2 at Patient Temp 119 mmHg (65-108) Arterial Blood HCO3 23 mmol/L (21-28) Arterial Blood Base Excess -1 mmol/L (-3-3) FiO2 40 Laboratory Tests Test 09/28/17 13:06 09/28/17 16:14 09/28/17 18:35 09/29/17 00:31 Glucose (Fingerstick) 144 mg/dL (70-99) 136 mg/dL (70-99) 192 mg/dL (70-99) O2 Saturation 96 % (92-99) Arterial Blood pH 7.46 (7.35-7.45) Arterial Blood pCO2 at Patient Temp 34 mmHg (35-46) Arterial Blood pO2 at Patient Temp 80 mmHg (65-108) Arterial Blood HCO3 24 mmol/L (21-28) Arterial Blood Base Excess 0 mmol/L (-3-3) FiO2 40 Test 09/29/17 05:59 09/29/17 06:00 09/29/17 07:20 Glucose (Fingerstick) 166 mg/dL (70-99) White Blood Count 11.3 x10^3/uL (4.0-11.0) Red Blood Count 3.44 x10^6/uL (3.50-5.40) Hemoglobin 8.9 g/dL (12.0-15.5) Hematocrit 28.9 % (36.0-47.0) Mean Corpuscular Volume 84 fL (79-100) Mean Corpuscular Hemoglobin 26 pg (25-35) Mean Corpuscular Hemoglobin Concent 31 g/dL (31-37) Red Cell Distribution Width 28.9 % (11.5-14.5) Platelet Count 300 x10^3/uL (140-400) Neutrophils (%) (Auto) 92 % (31-73) Lymphocytes (%) (Auto) 4 % (24-48) Monocytes (%) (Auto) 4 % (0-9) Eosinophils (%) (Auto) 0 % (0-3) Basophils (%) (Auto) 1 % (0-3) Neutrophils # (Auto) 10.4 x10^3uL (1.8-7.7) Lymphocytes # (Auto) 0.4 x10^3/uL (1.0-4.8) Monocytes # (Auto) 0.4 x10^3/uL (0.0-1.1) Eosinophils # (Auto) 0.0 x10^3/uL (0.0-0.7) Basophils # (Auto) 0.1 x10^3/uL (0.0-0.2) Sodium Level 142 mmol/L (136-145) Potassium Level 4.3 mmol/L (3.5-5.1) Chloride Level 110 mmol/L (98-107) Carbon Dioxide Level 25 mmol/L (21-32) Anion Gap 7 (6-14) Blood Urea Nitrogen 49 mg/dL (7-20) Creatinine 0.8 mg/dL (0.6-1.0) Estimated GFR (Cockcroft-Gault) 73.2 Glucose Level 182 mg/dL (70-99) Calcium Level 8.6 mg/dL (8.5-10.1) O2 Saturation 98 % (92-99) Arterial Blood pH 7.42 (7.35-7.45) Arterial Blood pCO2 at Patient Temp 36 mmHg (35-46) Arterial Blood pO2 at Patient Temp 119 mmHg (65-108) Arterial Blood HCO3 23 mmol/L (21-28) Arterial Blood Base Excess -1 mmol/L (-3-3) FiO2 40 Microbiology 09/17/17 Blood Culture - Final, Complete NO GROWTH AFTER 5 DAYS 09/20/17 AFB Specimen Processing Tissue - Final, Resulted 09/20/17 Acid Fast Bacilli Culture, Resulted Pending 09/20/17 Gram Stain - Final, Resulted 09/20/17 Fungal Culture - Preliminary, Resulted 09/20/17 Fungal Culture Result 1 - Preliminary, Resulted Medications Current Medications Sodium Chloride 1,000 ml @ 125 mls/hr 1X ONCE IV Last administered on t 15:54; Start 09/17/17 at 15:15; Stop 09/17/17 at 23:14; Status DC Ondansetron HCl (Zofran) 4 mg PRN Q8HRS PRN IV NAUSEA/VOMITING; Start at 16:30; Stop 09/18/17 at 16:29; Status DC Ceftriaxone Sodium 50 ml @ 0 mls/hr 1X ONCE IV Last administered on t 17:33; Start 09/17/17 at 16:45; Stop 09/17/17 at 16:46; Status DC Azithromycin 250 ml @ 250 mls/hr 1X ONCE IV Last administered on 09/17/17 22:38; Start 09/17/17 at 16:30; Stop 09/17/17 at 17:29; Status DC Albuterol/ Ipratropium (Duoneb) 3 ml 1X ONCE NEB Last administered on 17:00; Start 09/17/17 at 16:45; Stop 09/17/17 at 16:46; Status DC Potassium Chloride (Klor-Con) 40 meq 1X ONCE PO Last administered on 16:57; Start 09/17/17 at 16:45; Stop 09/17/17 at 16:46; Status DC Azithromycin (Zithromax) 250 mg DAILY PO Last administered on 09/18/17 10:25 ; Start 09/18/17 at 09:00; Stop 09/19/17 at 10:30; Status DC Ceftriaxone Sodium 1 gm/ Dextrose 50 ml @ 100 mls/hr Q24H IV ; Start 09/17/17 at 17:15; Status UNV Albuterol/ Ipratropium (Duoneb) 3 ml Q4HRS NEB Last administered on 09/29/17 11:06; Start 09/17/17 at 20:00 Ceftriaxone Sodium (Rocephin) 1 gm Q24H IVP Last administered on 09/18/17 17: 55; Start 09/18/17 at 16:00; Stop 09/19/17 at 10:30; Status DC Guaifenesin (Robitussin Dm) 10 ml PRN Q6HRS PRN PO COUGH; Start 09/17/17 at 17 :15 Sodium Chloride 1,000 ml @ 125 mls/hr 1X ONCE IV Last administered on 17:45; Start 09/17/17 at 17:15; Stop 09/17/17 at 22:12; Status DC Info (Do NOT chart on this placeholder) 1 each 1X ONCE MC ; Start 09/17/17 at 19:00; Stop 09/17/17 at 19:01; Status UNV Influenza Virus Vaccine Quadrival (Fluarix Quad [id number] Syringe) 0.5 ml ONCE ONCE VAX IM ; Start 09/17/17 at 21:00; Stop 09/17/17 at 21:01; Status DC Sodium Chloride 1,000 ml @ 130 mls/hr 1X ONCE IV Last administered on 22:31; Start 09/17/17 at 22:30; Stop 09/18/17 at 06:11; Status DC Sodium Bicarbonate 50 meq 1X ONCE IV Last administered on 09/17/17 22:31; Start 09/17/17 at 22:30; Stop 09/17/17 at 22:31; Status DC Alprazolam (Xanax) 1 mg PRN TID PRN PO ANXIETY Last administered on 09/19/17 02:19; Start 09/17/17 at 22:30 Furosemide (Lasix) 20 mg 1X ONCE IVP Last administered on 09/18/17 06:24; Start 09/18/17 at 06:30; Stop 09/18/17 at 06:31; Status DC Potassium Chloride (Klor-Con) 40 meq 1X ONCE PO Last administered on 10:25; Start 09/18/17 at 09:00; Stop 09/18/17 at 09:01; Status DC Iron Sucrose 500 mg/Sodium Chloride 275 ml @ 78.571 mls/ hr 1X ONCE IV Last administered on 09/18/17 10:24; Start 09/18/17 at 09:00; Stop 09/18/17 at 12 :29; Status DC Furosemide (Lasix) 20 mg 1X ONCE IVP Last administered on 09/18/17 10:30; Start 09/18/17 at 10:00; Stop 09/18/17 at 10:22; Status DC Pantoprazole Sodium (Protonix) 40 mg DAILYAC PO Last administered on 10:47; Start 09/18/17 at 11:00; Stop 09/19/17 at 13:41; Status DC Furosemide (Lasix) 20 mg 1X ONCE IVP Last administered on 09/18/17 10:47; Start 09/18/17 at 10:45; Stop 09/18/17 at 10:46; Status DC Potassium Chloride (Klor-Con) 40 meq 1X ONCE PO ; Start 09/18/17 at 11:45; Stop 09/18/17 at 11:46; Status DC Oxycodone/ Acetaminophen (Percocet 5/325) 1 tab PRN Q6HRS PRN PO PAIN Last administered on 09/18/17 13:23; Start 09/18/17 at 12:15 Lorazepam (Ativan) 1 mg PRN Q4HRS PRN IV ANXIETY / AGITATION Last administered on 09/18/17 12:25; Start 09/18/17 at 12:15; Stop 09/18/17 at 13:34; Status DC Fentanyl Citrate (Fentanyl 2ml Vial) 50 mcg PRN Q2HR PRN IV PAIN Last administered on 09/19/17 04:09; Start 09/18/17 at 12:15 Lorazepam (Ativan) 2 mg PRN Q4HRS PRN IV ANXIETY / AGITATION Last administered on 09/29/17 05:17; Start 09/18/17 at 13:30 Quetiapine Fumarate (SEROquel) 25 mg HS PO Last administered on 09/18/17 21: 03; Start 09/18/17 at 21:00; Stop 09/19/17 at 10:35; Status DC Haloperidol Lactate (Haldol) 5 mg PRN Q12HRS PRN IVP AGITATION; Start at 13:45 Lorazepam (Ativan) 1 mg PRN Q4HRS PRN IV ANXIETY / AGITATION; Start 09/19/17 at 10:15; Stop 09/19/17 at 10:18; Status DC Lorazepam (Ativan) 4 mg 1X ONCE IV ; Start 09/19/17 at 10:30; Stop 09/19/17 at 10:31; Status DC Vancomycin HCl (Vanco Per Pharmacy) 1 each PRN DAILY PRN MC SEE COMMENTS Last administered on 09/23/17 12:36; Start 09/19/17 at 10:30; Stop 09/24/17 at 08 :36; Status DC Piperacillin Sod/ Tazobactam Sod (Zosyn Per Pharmacy) 1 each PRN DAILY PRN MC SEE COMMENTS; Start 09/19/17 at 10:30; Stop 09/24/17 at 08:41; Status DC Vancomycin HCl 2 gm/Dextrose 500 ml @ 250 mls/hr 1X ONCE IV Last administered on 09/19/17 14:53; Start 09/19/17 at 11:00; Stop 09/19/17 at 12 :59; Status DC Piperacillin Sod/ Tazobactam Sod (Zosyn) 3.375 gm Q6HRS IVP Last administered on 09/29/17 05:57; Start 09/19/17 at 11:00 Budesonide (Pulmicort) 0.5 mg RTBID NEB Last administered on 09/29/17 07:07; Start 09/19/17 at 20:00 Budesonide (Pulmicort) 0.5 mg 1X ONCE NEB Last administered on 09/19/17 12: 50; Start 09/19/17 at 10:45; Stop 09/19/17 at 10:46; Status DC Pantoprazole Sodium (Protonix Vial) 40 mg DAILYAC IVP Last administered on 08:07; Start 09/19/17 at 11:30 Furosemide (Lasix) 40 mg DAILY IVP ; Start 09/19/17 at 11:00; Stop 09/20/17 at 13:20; Status DC Methylprednisolone Sodium Succinate (SOLU-Medrol 125MG VIAL) 125 mg 1X ONCE IV Last administered on 09/19/17 13:23; Start 09/19/17 at 10:45; Stop at 10:46; Status DC Prednisone (Prednisone) 40 mg DAILY PO ; Start 09/19/17 at 11:00; Stop at 09:02; Status DC Methylprednisolone Sodium Succinate (SOLU-Medrol 125MG VIAL) 125 mg Q8HRS IV Last administered on 09/23/17 05:43; Start 09/19/17 at 14:00; Stop 09/23/17 at 10:40; Status DC Midazolam HCl 100 ml @ 0 mls/hr CONT PRN IV SEE I/O RECORD; Start 09/19/17 at 11:00; Stop 09/19/17 at 12:51; Status DC Midazolam HCl (Versed) 5 mg 1X ONCE IV ; Start 09/19/17 at 11:00; Stop at 11:01; Status DC Fentanyl Citrate (Fentanyl 2ml Vial) 50 mcg 1X ONCE IV ; Start 09/19/17 at 11: 00; Stop 09/19/17 at 11:01; Status DC Midazolam HCl 100 ml @ As Directed STK-MED ONCE IV ; Start 09/19/17 at 10:55; Stop 09/19/17 at 10:56; Status DC Midazolam HCl (Versed) 5 mg STK-MED ONCE .ROUTE ; Start 09/19/17 at 10:55; Stop 09/19/17 at 10:56; Status DC Propofol 100 ml @ As Directed STK-MED ONCE IV ; Start 09/19/17 at 10:59; Stop 09/19/17 at 11:00; Status DC Norepinephrine Bitartrate 250 ml @ As Directed STK-MED ONCE IV ; Start at 10:59; Stop 09/19/17 at 11:00; Status DC Furosemide (Lasix) 20 mg 1X ONCE IVP ; Start 09/19/17 at 11:15; Stop at 11:16; Status DC Vecuronium [place] (Norcuron Bolus) 10 mg STK-MED ONCE IV ; Start 09/19/17 at 11:21; Stop 09/19/17 at 11:22; Status DC Fentanyl Citrate 30 ml @ 0 mls/hr CONT PRN IV PROTOCOL Last administered on 15:08; Start 09/19/17 at 11:30; Stop 09/23/17 at 15:24; Status DC Vecuronium [place] (Norcuron Bolus) 6 mg 1X ONCE IV Last administered on 09/19 11:42; Start 09/19/17 at 11:30; Stop 09/19/17 at 11:39; Status DC Propofol 10 ml @ 0 mls/hr 1X ONCE IV Last administered on 09/19/17 11:30; Start 09/19/17 at 11:30; Stop 09/19/17 at 11:39; Status DC Midazolam HCl 100 ml @ 0 mls/hr CONT PRN IV SEE I/O RECORD Last administered on 09/27/17 00:40; Start 09/19/17 at 11:30 Norepinephrine Bitartrate 250 ml @ 0 mls/hr CONT PRN IV SEE I/O RECORD Last administered on 09/24/17 05:18; Start 09/19/17 at 11:30 Succinylcholine Chloride (Anectine) 100 mg 1X ONCE IV Last administered on 11:42; Start 09/19/17 at 11:30; Stop 09/19/17 at 11:39; Status DC Sodium Bicarbonate 50 meq 1X ONCE IV Last administered on 09/19/17 13:23; Start 09/19/17 at 12:45; Stop 09/19/17 at 12:46; Status DC Sodium Bicarbonate 50 meq 1X ONCE IV Last administered on 09/19/17 13:23; Start 09/19/17 at 12:45; Stop 09/19/17 at 12:46; Status DC Lidocaine/Sodium Bicarbonate (Buffered Lidocaine 1%) 20 ml STK-MED ONCE IJ ; Start 09/19/17 at 13:34; Stop 09/19/17 at 13:35; Status DC Vecuronium [place] (Norcuron Bolus) 10 mg 1X ONCE IV Last administered on 15:05; Start 09/19/17 at 14:00; Stop 09/19/17 at 14:02; Status DC Lidocaine/Sodium Bicarbonate (Buffered Lidocaine 1%) 3 ml 1X ONCE IJ ; Start 09/19/17 at 14:45; Stop 09/19/17 at 14:46; Status DC Vancomycin HCl 1.25 gm/Dextrose 250 ml @ 166.667 mls/hr Q24H IV Last administered on 09/23/17 17:19; Start 09/20/17 at 15:00; Stop 09/24/17 at 08 :35; Status DC Vancomycin HCl 1 each 1X ONCE MC Last administered on 09/21/17 14:30; Start 09/21/17 at 14:30; Stop 09/21/17 at 14:31; Status DC Azithromycin 500 mg/Sodium Chloride 250 ml @ 250 mls/hr Q24H IV Last administered on 09/23/17 17:19; Start 09/19/17 at 16:30; Stop 09/24/17 at 08 :35; Status DC Norepinephrine Bitartrate (Levophed 8mg/ 250ml Premix Drip) 8 mg STK-MED ONCE IV ; Start 09/19/17 at 11:00; Stop 09/20/17 at 08:44; Status DC Midazolam HCl (Versed) 5 mg STK-MED ONCE .ROUTE ; Start 09/19/17 at 11:00; Stop 09/20/17 at 08:44; Status DC Amino Acids/ Glycerin/ Electrolytes 1,000 ml @ 80 mls/hr [id number] IV Last administered on 09/21/17 01:21; Start 09/20/17 at 10:00; Stop 09/22/17 at 07 :02; Status DC Info 1 each PRN DAILY PRN MC SEE COMMENTS; Start 09/20/17 at 10:00; Stop at 12:14; Status DC Furosemide (Lasix) 20 mg 1X ONCE IVP Last administered on 09/20/17 10:21; Start 09/20/17 at 10:15; Stop 09/20/17 at 10:18; Status DC Info 1 each PRN DAILY PRN MC SEE COMMENTS; Start 09/20/17 at 11:00; Status UNV Vecuronium [place] (Norcuron Bolus) 10 mg 1X ONCE IV Last administered on 12:03; Start 09/20/17 at 11:15; Stop 09/20/17 at 11:24; Status DC Atropine Sulfate 0.5 mg STK-MED ONCE .ROUTE ; Start 09/20/17 at 11:47; Stop at 11:48; Status DC Epinephrine HCl (EPINEPHrine SYRINGE) 1 mg STK-MED ONCE .ROUTE ; Start at 11:47; Stop 09/20/17 at 11:48; Status DC Atropine Sulfate 0.5 mg STK-MED ONCE .ROUTE ; Start 09/20/17 at 12:00; Stop at 09:11; Status DC Epinephrine HCl (EPINEPHrine SYRINGE) 1 mg STK-MED ONCE .ROUTE ; Start at 12:00; Stop 09/21/17 at 09:11; Status DC Furosemide (Lasix) 20 mg DAILY IVP ; Start 09/21/17 at 11:15; Stop 09/21/17 at 11:20; Status DC Lorazepam (Ativan) 1 mg PRN Q1HR PRN IV ANXIETY / AGITATION Last administered on 09/28/17 17:04; Start 09/21/17 at 11:15 Albumin Human 250 ml @ 62.5 mls/hr 1X ONCE IV Last administered on 11:57; Start 09/21/17 at 11:30; Stop 09/21/17 at 15:29; Status DC Albumin Human 250 ml @ 62.5 mls/hr 1X ONCE IV Last administered on 14:29; Start 09/21/17 at 11:30; Stop 09/21/17 at 15:29; Status DC Micafungin Sodium 100 mg/Dextrose 100 ml @ 100 mls/hr Q24H IV Last administered on 09/23/17 13:17; Start 09/21/17 at 12:00; Stop 09/24/17 at 08 :35; Status DC Vecuronium [place] (Norcuron Bolus) 4 mg PRN Q4HRS PRN IV AGITATION; Start at 15:00 Dexmedetomidine HCl 200 mcg/ Sodium Chloride 50 ml @ 0 mls/hr CONT PRN IV PER PROTOCOL Last administered on 09/21/17 15:54; Start 09/21/17 at 15:30 Sodium Chloride 500 ml @ 500 mls/hr 1X PRN PRN IV SEE COMMENTS; Start at 15:30 Atropine Sulfate 0.5 mg PRN Q5MIN PRN IV SEE COMMENTS; Start 09/21/17 at 15:30 Propofol 100 ml @ 0 mls/hr CONT PRN IV PER PROTOCOL Last administered on 08:55; Start 09/21/17 at 16:45 Furosemide (Lasix) 20 mg 1X ONCE IVP Last administered on 09/22/17 09:41; Start 09/22/17 at 10:15; Stop 09/22/17 at 10:16; Status DC Chlorhexidine Gluconate (Peridex) 15 ml BID MM Last administered on 09/29/17 08:07; Start 09/22/17 at 21:00 Furosemide (Lasix) 20 mg 1X ONCE IVP Last administered on 09/22/17 17:55; Start 09/22/17 at 18:00; Stop 09/22/17 at 18:01; Status DC Furosemide (Lasix) 20 mg DAILY IVP Last administered on 09/23/17 13:16; Start 09/23/17 at 11:30; Stop 09/24/17 at 08:40; Status DC Methylprednisolone Sodium Succinate (SOLU-Medrol 125MG VIAL) 80 mg Q8HRS IV Last administered on 09/29/17 05:57; Start 09/23/17 at 14:00 Fentanyl Citrate 55 ml @ 0 mls/hr CONT PRN PRN IV PER PROTOCOL Last administered on 09/28/17 19:13; Start 09/23/17 at 12:15 Dextrose 1,000 ml @ 25 mls/hr Q24H IV Last administered on 09/28/17 12:59; Start 09/23/17 at 11:45 Enoxaparin Sodium (Lovenox Per Pharmacy Prophylaxis Dosing) 1 each PRN DAILY PRN MC SEE COMMENTS; Start 09/23/17 at 16:30; Stop 09/24/17 at 08:41; Status DC Enoxaparin Sodium (Lovenox 40mg Syringe) 40 mg Q24H SQ Last administered on 17:04; Start 09/23/17 at 17:00 Bisacodyl (Dulcolax Tab) 5 mg PRN DAILY PRN PO CONSTIPATION; Start 09/24/17 at 09:30 Insulin Aspart (NovoLOG) 0-5 UNITS Q6HRS SQ Last administered on 09/29/17 06: 01; Start 09/25/17 at 18:00 Dextrose (Dextrose 50%-Water Syringe) 12.5 gm PRN Q15MIN PRN IV SEE COMMENTS; Start 09/25/17 at 12:30 Active Scripts Active Reported Gabapentin 300 Mg Capsule 300 Mg PO TID Cymbalta (Duloxetine Hcl) 60 Mg Capsule. 1 Cap PO BID Hydrochlorothiazide Tablet (Hydrochlorothiazide) 25 Mg Tablet 1 Tab PO DAILY Xanax (Alprazolam) 1 Mg Tablet 1 Tab PO TID PRN Vitals/I & O Vital Sign - Last 24 Hours 09/28/17 09/28/17 09/28/17 09/28/17 11:38 12:00 12:00 13:00 Temp 98.4 98.4 Pulse 90 108 Resp 24 30 B/P (MAP) 134/84 (101) 148/95 (112) Pulse Ox 99 100 99 O2 Delivery Ventilator Ventilator Mechanical Ventilator Ventilator 09/28/17 09/28/17 09/28/17 09/28/17 13:06 14:00 15:00 15:40 Pulse 104 94 Resp 24 26 B/P (MAP) 148/92 (110) 139/91 (107) Pulse Ox 100 100 100 100 O2 Delivery Ventilator Ventilator Ventilator Ventilator 09/28/17 09/28/17 09/28/17 09/28/17 16:00 16:00 17:00 17:30 Temp 98.4 98.4 Pulse 93 116 110 Resp 29 36 34 B/P (MAP) 153/98 (116) 181/115 (137) 153/87 (109) Pulse Ox 99 98 98 O2 Delivery Mechanical Ventilator Ventilator Ventilator Ventilator 09/28/17 09/28/17 09/28/17 09/28/17 18:00 18:06 19:00 19:13 Pulse 92 78 Resp 27 24 27 B/P (MAP) 140/88 (105) 145/88 (107) Pulse Ox 96 97 97 97 O2 Delivery Ventilator Ventilator Ventilator Ventilator 09/28/17 09/28/17 09/28/17 09/28/17 19:45 19:45 20:00 20:00 Temp 98.2 98.2 Pulse 65 Resp 24 24 B/P (MAP) 97/56 (70) Pulse Ox 97 97 96 O2 Delivery Ventilator Ventilator Mechanical Ventilator Ventilator 09/28/17 09/28/17 09/28/17 09/28/17 21:00 21:50 22:00 23:00 Pulse 64 62 71 Resp 24 24 24 B/P (MAP) 107/64 (78) 99/58 (72) 107/65 (79) Pulse Ox 100 100 100 100 O2 Delivery Ventilator Ventilator Ventilator Ventilator 09/28/17 09/29/17 09/29/17 09/29/17 23:55 00:00 00:00 01:00 Temp 98.6 98.6 Pulse 64 59 Resp 24 24 B/P (MAP) 94/60 (71) 94/62 (73) Pulse Ox 97 100 100 O2 Delivery Ventilator Mechanical Ventilator Ventilator Ventilator 09/29/17 09/29/17 09/29/17 09/29/17 01:13 02:00 03:00 03:34 Pulse 60 64 Resp 24 24 B/P (MAP) 93/59 (70) 103/65 (78) Pulse Ox 100 100 100 97 O2 Delivery Ventilator Ventilator Ventilator Ventilator 09/29/17 09/29/17 09/29/17 09/29/17 04:00 04:00 05:00 05:20 Temp 98.7 98.7 Pulse 67 63 Resp 24 24 B/P (MAP) 103/63 (76) 96/58 (71) Pulse Ox 100 100 100 O2 Delivery Mechanical Ventilator Ventilator Ventilator Ventilator 09/29/17 09/29/17 09/29/17 09/29/17 06:00 07:00 07:07 08:00 Pulse 61 56 Resp 24 24 B/P (MAP) 104/69 (81) 98/61 (73) Pulse Ox 100 100 100 O2 Delivery Ventilator Ventilator Ventilator Mechanical Ventilator 09/29/17 09/29/17 09/29/17 09/29/17 08:00 09:00 09:02 10:00 Temp 97.5 97.5 Pulse 68 83 75 Resp 24 24 B/P (MAP) 118/73 (88) 120/78 (92) 135/83 (100) Pulse Ox 100 100 100 99 O2 Delivery Ventilator Ventilator Ventilator Ventilator 09/29/17 11:07 Pulse Ox 100 O2 Delivery Ventilator Intake and Output 09/28/17 09/28/17 09/29/17 15:00 23:00 07:00 Intake Total 410.01 ml 1691.7 ml 1532.6 ml Output Total 610 ml 600 ml 580 ml Balance -199.99 ml 1091.7 ml 952.6 ml DENILSON KRISHNAMURTHY III DO Sep 29, 2017 11:39
[2017-09-29] MEDS: IV DEXTROSE 5% 1,000 ML IV SCH (11:45)
--- NOTE | 2017-09-29 11:52 | PDOC ---
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 (09/20). clean Labs Lab Laboratory Tests Test 09/28/17 13:06 09/28/17 16:14 09/28/17 18:35 09/29/17 00:31 Glucose (Fingerstick) 144 mg/dL (70-99) 136 mg/dL (70-99) 192 mg/dL (70-99) O2 Saturation 96 % (92-99) Arterial Blood pH 7.46 (7.35-7.45) Arterial Blood pCO2 at Patient Temp 34 mmHg (35-46) Arterial Blood pO2 at Patient Temp 80 mmHg (65-108) Arterial Blood HCO3 24 mmol/L (21-28) Arterial Blood Base Excess 0 mmol/L (-3-3) FiO2 40 Test 09/29/17 05:59 09/29/17 06:00 09/29/17 07:20 Glucose (Fingerstick) 166 mg/dL (70-99) White Blood Count 11.3 x10^3/uL (4.0-11.0) Red Blood Count 3.44 x10^6/uL (3.50-5.40) Hemoglobin 8.9 g/dL (12.0-15.5) Hematocrit 28.9 % (36.0-47.0) Mean Corpuscular Volume 84 fL (79-100) Mean Corpuscular Hemoglobin 26 pg (25-35) Mean Corpuscular Hemoglobin Concent 31 g/dL (31-37) Red Cell Distribution Width 28.9 % (11.5-14.5) Platelet Count 300 x10^3/uL (140-400) Neutrophils (%) (Auto) 92 % (31-73) Lymphocytes (%) (Auto) 4 % (24-48) Monocytes (%) (Auto) 4 % (0-9) Eosinophils (%) (Auto) 0 % (0-3) Basophils (%) (Auto) 1 % (0-3) Neutrophils # (Auto) 10.4 x10^3uL (1.8-7.7) Lymphocytes # (Auto) 0.4 x10^3/uL (1.0-4.8) Monocytes # (Auto) 0.4 x10^3/uL (0.0-1.1) Eosinophils # (Auto) 0.0 x10^3/uL (0.0-0.7) Basophils # (Auto) 0.1 x10^3/uL (0.0-0.2) Sodium Level 142 mmol/L (136-145) Potassium Level 4.3 mmol/L (3.5-5.1) Chloride Level 110 mmol/L (98-107) Carbon Dioxide Level 25 mmol/L (21-32) Anion Gap 7 (6-14) Blood Urea Nitrogen 49 mg/dL (7-20) Creatinine 0.8 mg/dL (0.6-1.0) Estimated GFR (Cockcroft-Gault) 73.2 Glucose Level 182 mg/dL (70-99) Calcium Level 8.6 mg/dL (8.5-10.1) O2 Saturation 98 % (92-99) Arterial Blood pH 7.42 (7.35-7.45) Arterial Blood pCO2 at Patient Temp 36 mmHg (35-46) Arterial Blood pO2 at Patient Temp 119 mmHg (65-108) Arterial Blood HCO3 23 mmol/L (21-28) Arterial Blood Base Excess -1 mmol/L (-3-3) FiO2 40 Objective Assessment Acute Resp failure - intubated Strep/Legionella antigens - neg. S/p Bronch 09/20 , no growth to date Hypotension, now off Levophed Lactic normal/Procalcitonin mild - elevation Pulm infiltrates - ARDS ? if transfusions could be playing into resp failure Anemia - on arrival s/p PRBCs - GI following Leukocytosis - on steroids now and S/p PRBCs GEO -stable Transaminitis - ? reactive COPD H/o Leg wounds - no recent abx per for wounds - last amox 6 weeks ago Influenza vaccine 09/17 - given Plan Plan of Care To, Resp viral panel/Silver stain was ordered but cancelled by pathology F/u Mycoplasma 09/20 pending elevated wbc likely sec to steroids likely will need trach f/u c. diff cont supportive care d/w Patient seen examined. Chart reviewed in detail. Case discussed with [employer] TECHNICIAN. Agree with above WEI RICHARDS APRN Sep 29, 2017 11:52 SARITA MIRANDA MD Sep 29, 2017 17:58
--- NOTE | 2017-09-29 14:23 | PDOC ---
PROGRESS NOTES Subjective Subjective SEEN IN FOLLOW UP OF ARF Objective Objective Vital Signs Date Time Temp Pulse Resp B/P (MAP) Pulse Ox O2 Delivery O2 Flow Rate FiO2 09/29/17 14:00 65 23 118/82 (94) 100 Ventilator 09/29/17 13:00 97.3 97.3 09/25/17 08:00 Intake and Output 09/29/17 06:59 Intake Total 3634.31 ml Output Total 1800 ml Balance 1834.31 ml Intake Oral 0 ml IV Total 1047.31 ml Tube Feeding 1387 ml Other 1200 ml Output Urine Total 1800 ml Gastric Drainage Total 0 ml # Bowel Movements 4 Physical Exam Abdomen: Normal bowel sounds, Soft, No tenderness, No hepatosplenomegaly, No masses Heart: Regular rate, Normal S1, Normal S2, No murmurs, Gallops Extremities: No clubbing, No cyanosis, No edema, Normal pulses, No tenderness/ swelling General: Other (ON VENT) Lungs: Clear to auscultation, Other (ON VENT) Diagnosis RENAL FAILURE: Acute, Other (ARF IS RESOLVED) Assessment Assessment Problems Medical Problems: (1) Dyspnea Status: Acute (2) Hypoalbuminemia Status: Acute (3) Metabolic acidosis Status: Acute (4) Pneumonia Status: Acute Plan Plan of Care ARF IS RESOLVED. CONT FLUID BALANCE. RENAL SIGN OFF Comment Review of Relevant I have reviewed the following items tha (where applicable) has been applied. Labs Laboratory Tests Test 09/27/17 14:38 09/27/17 18:04 09/28/17 00:04 09/28/17 05:00 Glucose (Fingerstick) 172 mg/dL (70-99) 180 mg/dL (70-99) 163 mg/dL (70-99) White Blood Count 14.6 x10^3/uL (4.0-11.0) Red Blood Count 3.88 x10^6/uL (3.50-5.40) Hemoglobin 9.9 g/dL (12.0-15.5) Hematocrit 32.6 % (36.0-47.0) Mean Corpuscular Volume 84 fL (79-100) Mean Corpuscular Hemoglobin 25 pg (25-35) Mean Corpuscular Hemoglobin Concent 30 g/dL (31-37) Red Cell Distribution Width 28.0 % (11.5-14.5) Platelet Count 303 x10^3/uL (140-400) Neutrophils (%) (Auto) 95 % (31-73) Lymphocytes (%) (Auto) 2 % (24-48) Monocytes (%) (Auto) 2 % (0-9) Eosinophils (%) (Auto) 0 % (0-3) Basophils (%) (Auto) 0 % (0-3) Neutrophils # (Auto) 13.9 x10^3uL (1.8-7.7) Lymphocytes # (Auto) 0.4 x10^3/uL (1.0-4.8) Monocytes # (Auto) 0.4 x10^3/uL (0.0-1.1) Eosinophils # (Auto) 0.0 x10^3/uL (0.0-0.7) Basophils # (Auto) 0.0 x10^3/uL (0.0-0.2) Sodium Level 145 mmol/L (136-145) Potassium Level 4.7 mmol/L (3.5-5.1) Chloride Level 111 mmol/L (98-107) Carbon Dioxide Level 26 mmol/L (21-32) Anion Gap 8 (6-14) Blood Urea Nitrogen 51 mg/dL (7-20) Creatinine 0.9 mg/dL (0.6-1.0) Estimated GFR (Cockcroft-Gault) 63.9 Glucose Level 177 mg/dL (70-99) Calcium Level 8.4 mg/dL (8.5-10.1) Test 09/28/17 05:34 09/28/17 08:00 09/28/17 13:06 09/28/17 16:14 Glucose (Fingerstick) 169 mg/dL (70-99) 144 mg/dL (70-99) O2 Saturation 96 % (92-99) 96 % (92-99) Arterial Blood pH 7.43 (7.35-7.45) 7.46 (7.35-7.45) Arterial Blood pCO2 at Patient Temp 37 mmHg (35-46) 34 mmHg (35-46) Arterial Blood pO2 at Patient Temp 87 mmHg (65-108) 80 mmHg (65-108) Arterial Blood HCO3 24 mmol/L (21-28) 24 mmol/L (21-28) Arterial Blood Base Excess 0 mmol/L (-3-3) 0 mmol/L (-3-3) FiO2 40 40 Test 09/28/17 18:35 09/29/17 00:31 09/29/17 05:59 09/29/17 06:00 Glucose (Fingerstick) 136 mg/dL (70-99) 192 mg/dL (70-99) 166 mg/dL (70-99) White Blood Count 11.3 x10^3/uL (4.0-11.0) Red Blood Count 3.44 x10^6/uL (3.50-5.40) Hemoglobin 8.9 g/dL (12.0-15.5) Hematocrit 28.9 % (36.0-47.0) Mean Corpuscular Volume 84 fL (79-100) Mean Corpuscular Hemoglobin 26 pg (25-35) Mean Corpuscular Hemoglobin Concent 31 g/dL (31-37) Red Cell Distribution Width 28.9 % (11.5-14.5) Platelet Count 300 x10^3/uL (140-400) Neutrophils (%) (Auto) 92 % (31-73) Lymphocytes (%) (Auto) 4 % (24-48) Monocytes (%) (Auto) 4 % (0-9) Eosinophils (%) (Auto) 0 % (0-3) Basophils (%) (Auto) 1 % (0-3) Neutrophils # (Auto) 10.4 x10^3uL (1.8-7.7) Lymphocytes # (Auto) 0.4 x10^3/uL (1.0-4.8) Monocytes # (Auto) 0.4 x10^3/uL (0.0-1.1) Eosinophils # (Auto) 0.0 x10^3/uL (0.0-0.7) Basophils # (Auto) 0.1 x10^3/uL (0.0-0.2) Sodium Level 142 mmol/L (136-145) Potassium Level 4.3 mmol/L (3.5-5.1) Chloride Level 110 mmol/L (98-107) Carbon Dioxide Level 25 mmol/L (21-32) Anion Gap 7 (6-14) Blood Urea Nitrogen 49 mg/dL (7-20) Creatinine 0.8 mg/dL (0.6-1.0) Estimated GFR (Cockcroft-Gault) 73.2 Glucose Level 182 mg/dL (70-99) Calcium Level 8.6 mg/dL (8.5-10.1) Test 09/29/17 07:20 09/29/17 12:24 O2 Saturation 98 % (92-99) Arterial Blood pH 7.42 (7.35-7.45) Arterial Blood pCO2 at Patient Temp 36 mmHg (35-46) Arterial Blood pO2 at Patient Temp 119 mmHg (65-108) Arterial Blood HCO3 23 mmol/L (21-28) Arterial Blood Base Excess -1 mmol/L (-3-3) FiO2 40 Glucose (Fingerstick) 162 mg/dL (70-99) Laboratory Tests Test 09/28/17 16:14 09/28/17 18:35 09/29/17 00:31 09/29/17 05:59 O2 Saturation 96 % (92-99) Arterial Blood pH 7.46 (7.35-7.45) Arterial Blood pCO2 at Patient Temp 34 mmHg (35-46) Arterial Blood pO2 at Patient Temp 80 mmHg (65-108) Arterial Blood HCO3 24 mmol/L (21-28) Arterial Blood Base Excess 0 mmol/L (-3-3) FiO2 40 Glucose (Fingerstick) 136 mg/dL (70-99) 192 mg/dL (70-99) 166 mg/dL (70-99) Test 09/29/17 06:00 09/29/17 07:20 09/29/17 12:24 White Blood Count 11.3 x10^3/uL (4.0-11.0) Red Blood Count 3.44 x10^6/uL (3.50-5.40) Hemoglobin 8.9 g/dL (12.0-15.5) Hematocrit 28.9 % (36.0-47.0) Mean Corpuscular Volume 84 fL (79-100) Mean Corpuscular Hemoglobin 26 pg (25-35) Mean Corpuscular Hemoglobin Concent 31 g/dL (31-37) Red Cell Distribution Width 28.9 % (11.5-14.5) Platelet Count 300 x10^3/uL (140-400) Neutrophils (%) (Auto) 92 % (31-73) Lymphocytes (%) (Auto) 4 % (24-48) Monocytes (%) (Auto) 4 % (0-9) Eosinophils (%) (Auto) 0 % (0-3) Basophils (%) (Auto) 1 % (0-3) Neutrophils # (Auto) 10.4 x10^3uL (1.8-7.7) Lymphocytes # (Auto) 0.4 x10^3/uL (1.0-4.8) Monocytes # (Auto) 0.4 x10^3/uL (0.0-1.1) Eosinophils # (Auto) 0.0 x10^3/uL (0.0-0.7) Basophils # (Auto) 0.1 x10^3/uL (0.0-0.2) Sodium Level 142 mmol/L (136-145) Potassium Level 4.3 mmol/L (3.5-5.1) Chloride Level 110 mmol/L (98-107) Carbon Dioxide Level 25 mmol/L (21-32) Anion Gap 7 (6-14) Blood Urea Nitrogen 49 mg/dL (7-20) Creatinine 0.8 mg/dL (0.6-1.0) Estimated GFR (Cockcroft-Gault) 73.2 Glucose Level 182 mg/dL (70-99) Calcium Level 8.6 mg/dL (8.5-10.1) O2 Saturation 98 % (92-99) Arterial Blood pH 7.42 (7.35-7.45) Arterial Blood pCO2 at Patient Temp 36 mmHg (35-46) Arterial Blood pO2 at Patient Temp 119 mmHg (65-108) Arterial Blood HCO3 23 mmol/L (21-28) Arterial Blood Base Excess -1 mmol/L (-3-3) FiO2 40 Glucose (Fingerstick) 162 mg/dL (70-99) Microbiology 09/17/17 Blood Culture - Final, Complete NO GROWTH AFTER 5 DAYS 09/20/17 AFB Specimen Processing Tissue - Final, Resulted 09/20/17 Acid Fast Bacilli Culture, Resulted Pending 09/20/17 Gram Stain - Final, Resulted 09/20/17 Fungal Culture - Preliminary, Resulted 09/20/17 Fungal Culture Result 1 - Preliminary, Resulted Medications Current Medications Sodium Chloride 1,000 ml @ 125 mls/hr 1X ONCE IV Last administered on t 15:54; Start 09/17/17 at 15:15; Stop 09/17/17 at 23:14; Status DC Ondansetron HCl (Zofran) 4 mg PRN Q8HRS PRN IV NAUSEA/VOMITING; Start at 16:30; Stop 09/18/17 at 16:29; Status DC Ceftriaxone Sodium 50 ml @ 0 mls/hr 1X ONCE IV Last administered on 17:33; Start 09/17/17 at 16:45; Stop 09/17/17 at 16:46; Status DC Azithromycin 250 ml @ 250 mls/hr 1X ONCE IV Last administered on 09/17/17 22:38; Start 09/17/17 at 16:30; Stop 09/17/17 at 17:29; Status DC Albuterol/ Ipratropium (Duoneb) 3 ml 1X ONCE NEB Last administered on 17:00; Start 09/17/17 at 16:45; Stop 09/17/17 at 16:46; Status DC Potassium Chloride (Klor-Con) 40 meq 1X ONCE PO Last administered on 16:57; Start 09/17/17 at 16:45; Stop 09/17/17 at 16:46; Status DC Azithromycin (Zithromax) 250 mg DAILY PO Last administered on 09/18/17 10:25 ; Start 09/18/17 at 09:00; Stop 09/19/17 at 10:30; Status DC Ceftriaxone Sodium 1 gm/ Dextrose 50 ml @ 100 mls/hr Q24H IV ; Start 09/17/17 at 17:15; Status UNV Albuterol/ Ipratropium (Duoneb) 3 ml Q4HRS NEB Last administered on 09/29/17 11:06; Start 09/17/17 at 20:00 Ceftriaxone Sodium (Rocephin) 1 gm Q24H IVP Last administered on 09/18/17 17: 55; Start 09/18/17 at 16:00; Stop 09/19/17 at 10:30; Status DC Guaifenesin (Robitussin Dm) 10 ml PRN Q6HRS PRN PO COUGH; Start 09/17/17 at 17 :15 Sodium Chloride 1,000 ml @ 125 mls/hr 1X ONCE IV Last administered on 17:45; Start 09/17/17 at 17:15; Stop 09/17/17 at 22:12; Status DC Info (Do NOT chart on this placeholder) 1 each 1X ONCE MC ; Start 09/17/17 at 19:00; Stop 09/17/17 at 19:01; Status UNV Influenza Virus Vaccine Quadrival (Fluarix Quad [id number] Syringe) 0.5 ml ONCE ONCE VAX IM ; Start 09/17/17 at 21:00; Stop 09/17/17 at 21:01; Status DC Sodium Chloride 1,000 ml @ 130 mls/hr 1X ONCE IV Last administered on 22:31; Start 09/17/17 at 22:30; Stop 09/18/17 at 06:11; Status DC Sodium Bicarbonate 50 meq 1X ONCE IV Last administered on 09/17/17 22:31; Start 09/17/17 at 22:30; Stop 09/17/17 at 22:31; Status DC Alprazolam (Xanax) 1 mg PRN TID PRN PO ANXIETY Last administered on 09/19/17 02:19; Start 09/17/17 at 22:30 Furosemide (Lasix) 20 mg 1X ONCE IVP Last administered on 09/18/17 06:24; Start 09/18/17 at 06:30; Stop 09/18/17 at 06:31; Status DC Potassium Chloride (Klor-Con) 40 meq 1X ONCE PO Last administered on 10:25; Start 09/18/17 at 09:00; Stop 09/18/17 at 09:01; Status DC Iron Sucrose 500 mg/Sodium Chloride 275 ml @ 78.571 mls/ hr 1X ONCE IV Last administered on 09/18/17 10:24; Start 09/18/17 at 09:00; Stop 09/18/17 at 12 :29; Status DC Furosemide (Lasix) 20 mg 1X ONCE IVP Last administered on 09/18/17 10:30; Start 09/18/17 at 10:00; Stop 09/18/17 at 10:22; Status DC Pantoprazole Sodium (Protonix) 40 mg DAILYAC PO Last administered on 10:47; Start 09/18/17 at 11:00; Stop 09/19/17 at 13:41; Status DC Furosemide (Lasix) 20 mg 1X ONCE IVP Last administered on 09/18/17 10:47; Start 09/18/17 at 10:45; Stop 09/18/17 at 10:46; Status DC Potassium Chloride (Klor-Con) 40 meq 1X ONCE PO ; Start 09/18/17 at 11:45; Stop 09/18/17 at 11:46; Status DC Oxycodone/ Acetaminophen (Percocet 5/325) 1 tab PRN Q6HRS PRN PO PAIN Last administered on 09/18/17 13:23; Start 09/18/17 at 12:15 Lorazepam (Ativan) 1 mg PRN Q4HRS PRN IV ANXIETY / AGITATION Last administered on 09/18/17 12:25; Start 09/18/17 at 12:15; Stop 09/18/17 at 13:34; Status DC Fentanyl Citrate (Fentanyl 2ml Vial) 50 mcg PRN Q2HR PRN IV PAIN Last administered on 09/19/17 04:09; Start 09/18/17 at 12:15 Lorazepam (Ativan) 2 mg PRN Q4HRS PRN IV ANXIETY / AGITATION Last administered on 09/29/17 05:17; Start 09/18/17 at 13:30 Quetiapine Fumarate (SEROquel) 25 mg HS PO Last administered on 09/18/17 21: 03; Start 09/18/17 at 21:00; Stop 09/19/17 at 10:35; Status DC Haloperidol Lactate (Haldol) 5 mg PRN Q12HRS PRN IVP AGITATION; Start at 13:45 Lorazepam (Ativan) 1 mg PRN Q4HRS PRN IV ANXIETY / AGITATION; Start 09/19/17 at 10:15; Stop 09/19/17 at 10:18; Status DC Lorazepam (Ativan) 4 mg 1X ONCE IV ; Start 09/19/17 at 10:30; Stop 09/19/17 at 10:31; Status DC Vancomycin HCl (Vanco Per Pharmacy) 1 each PRN DAILY PRN MC SEE COMMENTS Last administered on 09/23/17 12:36; Start 09/19/17 at 10:30; Stop 09/24/17 at 08 :36; Status DC Piperacillin Sod/ Tazobactam Sod (Zosyn Per Pharmacy) 1 each PRN DAILY PRN MC SEE COMMENTS; Start 09/19/17 at 10:30; Stop 09/24/17 at 08:41; Status DC Vancomycin HCl 2 gm/Dextrose 500 ml @ 250 mls/hr 1X ONCE IV Last administered on 09/19/17 14:53; Start 09/19/17 at 11:00; Stop 09/19/17 at 12 :59; Status DC Piperacillin Sod/ Tazobactam Sod (Zosyn) 3.375 gm Q6HRS IVP Last administered on 09/29/17 12:25; Start 09/19/17 at 11:00 Budesonide (Pulmicort) 0.5 mg RTBID NEB Last administered on 09/29/17 07:07; Start 09/19/17 at 20:00 Budesonide (Pulmicort) 0.5 mg 1X ONCE NEB Last administered on 09/19/17 12: 50; Start 09/19/17 at 10:45; Stop 09/19/17 at 10:46; Status DC Pantoprazole Sodium (Protonix Vial) 40 mg DAILYAC IVP Last administered on 08:07; Start 09/19/17 at 11:30 Furosemide (Lasix) 40 mg DAILY IVP ; Start 09/19/17 at 11:00; Stop 09/20/17 at 13:20; Status DC Methylprednisolone Sodium Succinate (SOLU-Medrol 125MG VIAL) 125 mg 1X ONCE IV Last administered on 09/19/17 13:23; Start 09/19/17 at 10:45; Stop at 10:46; Status DC Prednisone (Prednisone) 40 mg DAILY PO ; Start 09/19/17 at 11:00; Stop at 09:02; Status DC Methylprednisolone Sodium Succinate (SOLU-Medrol 125MG VIAL) 125 mg Q8HRS IV Last administered on 09/23/17 05:43; Start 09/19/17 at 14:00; Stop 09/23/17 at 10:40; Status DC Midazolam HCl 100 ml @ 0 mls/hr CONT PRN IV SEE I/O RECORD; Start 09/19/17 at 11:00; Stop 09/19/17 at 12:51; Status DC Midazolam HCl (Versed) 5 mg 1X ONCE IV ; Start 09/19/17 at 11:00; Stop at 11:01; Status DC Fentanyl Citrate (Fentanyl 2ml Vial) 50 mcg 1X ONCE IV ; Start 09/19/17 at 11: 00; Stop 09/19/17 at 11:01; Status DC Midazolam HCl 100 ml @ As Directed STK-MED ONCE IV ; Start 09/19/17 at 10:55; Stop 09/19/17 at 10:56; Status DC Midazolam HCl (Versed) 5 mg STK-MED ONCE .ROUTE ; Start 09/19/17 at 10:55; Stop 09/19/17 at 10:56; Status DC Propofol 100 ml @ As Directed STK-MED ONCE IV ; Start 09/19/17 at 10:59; Stop 09/19/17 at 11:00; Status DC Norepinephrine Bitartrate 250 ml @ As Directed STK-MED ONCE IV ; Start at 10:59; Stop 09/19/17 at 11:00; Status DC Furosemide (Lasix) 20 mg 1X ONCE IVP ; Start 09/19/17 at 11:15; Stop at 11:16; Status DC Vecuronium [place] (Norcuron Bolus) 10 mg STK-MED ONCE IV ; Start 09/19/17 at 11:21; Stop 09/19/17 at 11:22; Status DC Fentanyl Citrate 30 ml @ 0 mls/hr CONT PRN IV PROTOCOL Last administered on 15:08; Start 09/19/17 at 11:30; Stop 09/23/17 at 15:24; Status DC Vecuronium [place] (Norcuron Bolus) 6 mg 1X ONCE IV Last administered on 09/19 11:42; Start 09/19/17 at 11:30; Stop 09/19/17 at 11:39; Status DC Propofol 10 ml @ 0 mls/hr 1X ONCE IV Last administered on 09/19/17 11:30; Start 09/19/17 at 11:30; Stop 09/19/17 at 11:39; Status DC Midazolam HCl 100 ml @ 0 mls/hr CONT PRN IV SEE I/O RECORD Last administered on 11/23/17at 00:40; Start 09/19/17 at 11:30 Norepinephrine Bitartrate 250 ml @ 0 mls/hr CONT PRN IV SEE I/O RECORD Last administered on 09/24/17 05:18; Start 09/19/17 at 11:30 Succinylcholine Chloride (Anectine) 100 mg 1X ONCE IV Last administered on 11:42; Start 09/19/17 at 11:30; Stop 09/19/17 at 11:39; Status DC Sodium Bicarbonate 50 meq 1X ONCE IV Last administered on 09/19/17 13:23; Start 09/19/17 at 12:45; Stop 09/19/17 at 12:46; Status DC Sodium Bicarbonate 50 meq 1X ONCE IV Last administered on 09/19/17 13:23; Start 09/19/17 at 12:45; Stop 09/19/17 at 12:46; Status DC Lidocaine/Sodium Bicarbonate (Buffered Lidocaine 1%) 20 ml STK-MED ONCE IJ ; Start 09/19/17 at 13:34; Stop 09/19/17 at 13:35; Status DC Vecuronium [place] (Norcuron Bolus) 10 mg 1X ONCE IV Last administered on 15:05; Start 09/19/17 at 14:00; Stop 09/19/17 at 14:02; Status DC Lidocaine/Sodium Bicarbonate (Buffered Lidocaine 1%) 3 ml 1X ONCE IJ ; Start 09/19/17 at 14:45; Stop 09/19/17 at 14:46; Status DC Vancomycin HCl 1.25 gm/Dextrose 250 ml @ 166.667 mls/hr Q24H IV Last administered on 09/23/17 17:19; Start 09/20/17 at 15:00; Stop 09/24/17 at 08 :35; Status DC Vancomycin HCl 1 each 1X ONCE MC Last administered on 09/21/17 14:30; Start 09/21/17 at 14:30; Stop 09/21/17 at 14:31; Status DC Azithromycin 500 mg/Sodium Chloride 250 ml @ 250 mls/hr Q24H IV Last administered on 09/23/17 17:19; Start 09/19/17 at 16:30; Stop 09/24/17 at 08 :35; Status DC Norepinephrine Bitartrate (Levophed 8mg/ 250ml Premix Drip) 8 mg STK-MED ONCE IV ; Start 09/19/17 at 11:00; Stop 09/20/17 at 08:44; Status DC Midazolam HCl (Versed) 5 mg STK-MED ONCE .ROUTE ; Start 09/19/17 at 11:00; Stop 09/20/17 at 08:44; Status DC Amino Acids/ Glycerin/ Electrolytes 1,000 ml @ 80 mls/hr [id number] IV Last administered on 09/21/17t 01:21; Start 09/20/17 at 10:00; Stop 09/22/17 at 07 :02; Status DC Info 1 each PRN DAILY PRN MC SEE COMMENTS; Start 09/20/17 at 10:00; Stop at 12:14; Status DC Furosemide (Lasix) 20 mg 1X ONCE IVP Last administered on 09/20/17t 10:21; Start 09/20/17 at 10:15; Stop 09/20/17 at 10:18; Status DC Info 1 each PRN DAILY PRN MC SEE COMMENTS; Start 09/20/17 at 11:00; Status UNV Vecuronium [place] (Norcuron Bolus) 10 mg 1X ONCE IV Last administered on t 12:03; Start 09/20/17 at 11:15; Stop 09/20/17 at 11:24; Status DC Atropine Sulfate 0.5 mg STK-MED ONCE .ROUTE ; Start 09/20/17 at 11:47; Stop at 11:48; Status DC Epinephrine HCl (EPINEPHrine SYRINGE) 1 mg STK-MED ONCE .ROUTE ; Start at 11:47; Stop 09/20/17 at 11:48; Status DC Atropine Sulfate 0.5 mg STK-MED ONCE .ROUTE ; Start 09/20/17 at 12:00; Stop at 09:11; Status DC Epinephrine HCl (EPINEPHrine SYRINGE) 1 mg STK-MED ONCE .ROUTE ; Start at 12:00; Stop 09/21/17 at 09:11; Status DC Furosemide (Lasix) 20 mg DAILY IVP ; Start 09/21/17 at 11:15; Stop 09/21/17 at 11:20; Status DC Lorazepam (Ativan) 1 mg PRN Q1HR PRN IV ANXIETY / AGITATION Last administered on 09/28/17 17:04; Start 09/21/17 at 11:15 Albumin Human 250 ml @ 62.5 mls/hr 1X ONCE IV Last administered on 11:57; Start 09/21/17 at 11:30; Stop 09/21/17 at 15:29; Status DC Albumin Human 250 ml @ 62.5 mls/hr 1X ONCE IV Last administered on 14:29; Start 09/21/17 at 11:30; Stop 09/21/17 at 15:29; Status DC Micafungin Sodium 100 mg/Dextrose 100 ml @ 100 mls/hr Q24H IV Last administered on 09/23/17 13:17; Start 09/21/17 at 12:00; Stop 09/24/17 at 08 :35; Status DC Vecuronium [place] (Norcuron Bolus) 4 mg PRN Q4HRS PRN IV AGITATION; Start at 15:00 Dexmedetomidine HCl 200 mcg/ Sodium Chloride 50 ml @ 0 mls/hr CONT PRN IV PER PROTOCOL Last administered on 09/21/17 15:54; Start 09/21/17 at 15:30 Sodium Chloride 500 ml @ 500 mls/hr 1X PRN PRN IV SEE COMMENTS; Start at 15:30 Atropine Sulfate 0.5 mg PRN Q5MIN PRN IV SEE COMMENTS; Start 09/21/17 at 15:30 Propofol 100 ml @ 0 mls/hr CONT PRN IV PER PROTOCOL Last administered on 08:55; Start 09/21/17 at 16:45 Furosemide (Lasix) 20 mg 1X ONCE IVP Last administered on 09/22/17 09:41; Start 09/22/17 at 10:15; Stop 09/22/17 at 10:16; Status DC Chlorhexidine Gluconate (Peridex) 15 ml BID MM Last administered on 09/29/17 08:07; Start 09/22/17 at 21:00 Furosemide (Lasix) 20 mg 1X ONCE IVP Last administered on 09/22/17 17:55; Start 09/22/17 at 18:00; Stop 09/22/17 at 18:01; Status DC Furosemide (Lasix) 20 mg DAILY IVP Last administered on 09/23/17 13:16; Start 09/23/17 at 11:30; Stop 09/24/17 at 08:40; Status DC Methylprednisolone Sodium Succinate (SOLU-Medrol 125MG VIAL) 80 mg Q8HRS IV Last administered on 09/29/17 05:57; Start 09/23/17 at 14:00 Fentanyl Citrate 55 ml @ 0 mls/hr CONT PRN PRN IV PER PROTOCOL Last administered on 09/28/17 19:13; Start 09/23/17 at 12:15 Dextrose 1,000 ml @ 25 mls/hr Q24H IV Last administered on 09/28/17 12:59; Start 09/23/17 at 11:45 Enoxaparin Sodium (Lovenox Per Pharmacy Prophylaxis Dosing) 1 each PRN DAILY PRN MC SEE COMMENTS; Start 09/23/17 at 16:30; Stop 09/24/17 at 08:41; Status DC Enoxaparin Sodium (Lovenox 40mg Syringe) 40 mg Q24H SQ Last administered on 17:04; Start 09/23/17 at 17:00 Bisacodyl (Dulcolax Tab) 5 mg PRN DAILY PRN PO CONSTIPATION; Start 09/24/17 at 09:30 Insulin Aspart (NovoLOG) 0-5 UNITS Q6HRS SQ Last administered on 09/29/17 12: 27; Start 09/25/17 at 18:00 Dextrose (Dextrose 50%-Water Syringe) 12.5 gm PRN Q15MIN PRN IV SEE COMMENTS; Start 09/25/17 at 12:30 Active Scripts Active Reported Gabapentin 300 Mg Capsule 300 Mg PO TID Cymbalta (Duloxetine Hcl) 60 Mg Capsule. 1 Cap PO BID Hydrochlorothiazide Tablet (Hydrochlorothiazide) 25 Mg Tablet 1 Tab PO DAILY Xanax (Alprazolam) 1 Mg Tablet 1 Tab PO TID PRN Vitals/I & O Vital Sign - Last 24 Hours 09/28/17 09/28/17 09/28/17 09/28/17 15:00 15:40 16:00 16:00 Temp 98.4 98.4 Pulse 94 93 Resp 26 29 B/P (MAP) 139/91 (107) 153/98 (116) Pulse Ox 100 100 99 O2 Delivery Ventilator Ventilator Mechanical Ventilator Ventilator 09/28/17 09/28/17 09/28/17 09/28/17 17:00 17:30 18:00 18:06 Pulse 116 110 92 Resp 36 34 27 B/P (MAP) 181/115 (137) 153/87 (109) 140/88 (105) Pulse Ox 98 98 96 97 O2 Delivery Ventilator Ventilator Ventilator Ventilator 09/28/17 09/28/17 09/28/17 09/28/17 19:00 19:13 19:45 19:45 Pulse 78 Resp 24 27 24 B/P (MAP) 145/88 (107) Pulse Ox 97 97 97 97 O2 Delivery Ventilator Ventilator Ventilator Ventilator 09/28/17 09/28/17 09/28/17 09/28/17 20:00 20:00 21:00 21:50 Temp 98.2 98.2 Pulse 65 64 Resp 24 24 B/P (MAP) 97/56 (70) 107/64 (78) Pulse Ox 96 100 100 O2 Delivery Mechanical Ventilator Ventilator Ventilator Ventilator 09/28/17 09/28/17 09/28/17 09/29/17 22:00 23:00 23:55 00:00 Pulse 62 71 Resp 24 24 B/P (MAP) 99/58 (72) 107/65 (79) Pulse Ox 100 100 97 O2 Delivery Ventilator Ventilator Ventilator Mechanical Ventilator 09/29/17 09/29/17 09/29/17 09/29/17 00:00 01:00 01:13 02:00 Temp 98.6 98.6 Pulse 64 59 60 Resp 24 24 24 B/P (MAP) 94/60 (71) 94/62 (73) 93/59 (70) Pulse Ox 100 100 100 100 O2 Delivery Ventilator Ventilator Ventilator Ventilator 09/29/17 09/29/17 09/29/17 09/29/17 03:00 03:34 04:00 04:00 Temp 98.7 98.7 Pulse 64 67 Resp 24 24 B/P (MAP) 103/65 (78) 103/63 (76) Pulse Ox 100 97 100 O2 Delivery Ventilator Ventilator Mechanical Ventilator Ventilator 09/29/17 09/29/17 09/29/17 09/29/17 05:00 05:20 06:00 07:00 Pulse 63 61 56 Resp 24 24 24 B/P (MAP) 96/58 (71) 104/69 (81) 98/61 (73) Pulse Ox 100 100 100 100 O2 Delivery Ventilator Ventilator Ventilator Ventilator 09/29/17 09/29/17 09/29/17 09/29/17 07:07 08:00 08:00 09:00 Temp 97.5 97.5 Pulse 68 83 Resp B/P (MAP) 118/73 (88) 120/78 (92) Pulse Ox 100 100 100 O2 Delivery Ventilator Mechanical Ventilator Ventilator Ventilator 09/29/17 09/29/17 09/29/17 09/29/17 09:02 10:00 11:00 11:07 Pulse 75 66 Resp B/P (MAP) 135/83 (100) 127/77 (94) Pulse Ox 100 99 100 100 O2 Delivery Ventilator Ventilator Ventilator Ventilator 09/29/17 09/29/17 09/29/17 09/29/17 12:00 12:00 13:00 13:45 Temp 97.3 97.3 Pulse 60 78 Resp 24 B/P (MAP) 110/72 (85) 115/75 (88) Pulse Ox 100 100 100 O2 Delivery Mechanical Ventilator Ventilator Ventilator Ventilator 09/29/17 14:00 Pulse 65 Resp 23 B/P (MAP) 118/82 (94) Pulse Ox 100 O2 Delivery Ventilator Intake and Output 09/28/17 09/28/17 09/29/17 14:59 22:59 06:59 Intake Total 410.01 ml 1691.7 ml 1532.6 ml Output Total 560 ml 700 ml 540 ml Balance -149.99 ml 991.7 ml 992.6 ml ZEFERINO ROCKWELL MD Sep 29, 2017 14:23
--- NOTE | 2017-09-29 15:46 | PDOC ---
PULMONARY PROGRESS NOTES Subjective PT OFF SEDATION FOLLOWS COMMANDS ABLE TO LIFT HEAD OFF BED Vitals Vital Signs Date Time Temp Pulse Resp B/P (MAP) Pulse Ox O2 Delivery O2 Flow Rate FiO2 09/29/17 15:23 100 Ventilator 09/29/17 14:00 65 23 118/82 (94) 09/29/17 13:00 97.3 97.3 Lungs: Clear Cardiovascular: S1, S2 Abdomen: Soft Neuro Exam: Alert Extremities: No Edema Skin: Warm Labs Laboratory Tests Test 09/27/17 18:04 09/28/17 00:04 09/28/17 05:00 09/28/17 05:34 Glucose (Fingerstick) 180 mg/dL (70-99) 163 mg/dL (70-99) 169 mg/dL (70-99) White Blood Count 14.6 x10^3/uL (4.0-11.0) Red Blood Count 3.88 x10^6/uL (3.50-5.40) Hemoglobin 9.9 g/dL (12.0-15.5) Hematocrit 32.6 % (36.0-47.0) Mean Corpuscular Volume 84 fL (79-100) Mean Corpuscular Hemoglobin 25 pg (25-35) Mean Corpuscular Hemoglobin Concent 30 g/dL (31-37) Red Cell Distribution Width 28.0 % (11.5-14.5) Platelet Count 303 x10^3/uL (140-400) Neutrophils (%) (Auto) 95 % (31-73) Lymphocytes (%) (Auto) 2 % (24-48) Monocytes (%) (Auto) 2 % (0-9) Eosinophils (%) (Auto) 0 % (0-3) Basophils (%) (Auto) 0 % (0-3) Neutrophils # (Auto) 13.9 x10^3uL (1.8-7.7) Lymphocytes # (Auto) 0.4 x10^3/uL (1.0-4.8) Monocytes # (Auto) 0.4 x10^3/uL (0.0-1.1) Eosinophils # (Auto) 0.0 x10^3/uL (0.0-0.7) Basophils # (Auto) 0.0 x10^3/uL (0.0-0.2) Sodium Level 145 mmol/L (136-145) Potassium Level 4.7 mmol/L (3.5-5.1) Chloride Level 111 mmol/L (98-107) Carbon Dioxide Level 26 mmol/L (21-32) Anion Gap 8 (6-14) Blood Urea Nitrogen 51 mg/dL (7-20) Creatinine 0.9 mg/dL (0.6-1.0) Estimated GFR (Cockcroft-Gault) 63.9 Glucose Level 177 mg/dL (70-99) Calcium Level 8.4 mg/dL (8.5-10.1) Test 09/28/17 08:00 09/28/17 13:06 09/28/17 16:14 09/28/17 18:35 O2 Saturation 96 % (92-99) 96 % (92-99) Arterial Blood pH 7.43 (7.35-7.45) 7.46 (7.35-7.45) Arterial Blood pCO2 at Patient Temp 37 mmHg (35-46) 34 mmHg (35-46) Arterial Blood pO2 at Patient Temp 87 mmHg (65-108) 80 mmHg (65-108) Arterial Blood HCO3 24 mmol/L (21-28) 24 mmol/L (21-28) Arterial Blood Base Excess 0 mmol/L (-3-3) 0 mmol/L (-3-3) FiO2 40 40 Glucose (Fingerstick) 144 mg/dL (70-99) 136 mg/dL (70-99) Test 09/29/17 00:31 09/29/17 05:59 09/29/17 06:00 09/29/17 07:20 Glucose (Fingerstick) 192 mg/dL (70-99) 166 mg/dL (70-99) White Blood Count 11.3 x10^3/uL (4.0-11.0) Red Blood Count 3.44 x10^6/uL (3.50-5.40) Hemoglobin 8.9 g/dL (12.0-15.5) Hematocrit 28.9 % (36.0-47.0) Mean Corpuscular Volume 84 fL (79-100) Mean Corpuscular Hemoglobin 26 pg (25-35) Mean Corpuscular Hemoglobin Concent 31 g/dL (31-37) Red Cell Distribution Width 28.9 % (11.5-14.5) Platelet Count 300 x10^3/uL (140-400) Neutrophils (%) (Auto) 92 % (31-73) Lymphocytes (%) (Auto) 4 % (24-48) Monocytes (%) (Auto) 4 % (0-9) Eosinophils (%) (Auto) 0 % (0-3) Basophils (%) (Auto) 1 % (0-3) Neutrophils # (Auto) 10.4 x10^3uL (1.8-7.7) Lymphocytes # (Auto) 0.4 x10^3/uL (1.0-4.8) Monocytes # (Auto) 0.4 x10^3/uL (0.0-1.1) Eosinophils # (Auto) 0.0 x10^3/uL (0.0-0.7) Basophils # (Auto) 0.1 x10^3/uL (0.0-0.2) Sodium Level 142 mmol/L (136-145) Potassium Level 4.3 mmol/L (3.5-5.1) Chloride Level 110 mmol/L (98-107) Carbon Dioxide Level 25 mmol/L (21-32) Anion Gap 7 (6-14) Blood Urea Nitrogen 49 mg/dL (7-20) Creatinine 0.8 mg/dL (0.6-1.0) Estimated GFR (Cockcroft-Gault) 73.2 Glucose Level 182 mg/dL (70-99) Calcium Level 8.6 mg/dL (8.5-10.1) O2 Saturation 98 % (92-99) Arterial Blood pH 7.42 (7.35-7.45) Arterial Blood pCO2 at Patient Temp 36 mmHg (35-46) Arterial Blood pO2 at Patient Temp 119 mmHg (65-108) Arterial Blood HCO3 23 mmol/L (21-28) Arterial Blood Base Excess -1 mmol/L (-3-3) FiO2 40 Test 09/29/17 12:24 Glucose (Fingerstick) 162 mg/dL (70-99) Laboratory Tests Test 09/28/17 16:14 09/28/17 18:35 09/29/17 00:31 09/29/17 05:59 O2 Saturation 96 % (92-99) Arterial Blood pH 7.46 (7.35-7.45) Arterial Blood pCO2 at Patient Temp 34 mmHg (35-46) Arterial Blood pO2 at Patient Temp 80 mmHg (65-108) Arterial Blood HCO3 24 mmol/L (21-28) Arterial Blood Base Excess 0 mmol/L (-3-3) FiO2 40 Glucose (Fingerstick) 136 mg/dL (70-99) 192 mg/dL (70-99) 166 mg/dL (70-99) Test 09/29/17 06:00 09/29/17 07:20 09/29/17 12:24 White Blood Count 11.3 x10^3/uL (4.0-11.0) Red Blood Count 3.44 x10^6/uL (3.50-5.40) Hemoglobin 8.9 g/dL (12.0-15.5) Hematocrit 28.9 % (36.0-47.0) Mean Corpuscular Volume 84 fL (79-100) Mean Corpuscular Hemoglobin 26 pg (25-35) Mean Corpuscular Hemoglobin Concent 31 g/dL (31-37) Red Cell Distribution Width 28.9 % (11.5-14.5) Platelet Count 300 x10^3/uL (140-400) Neutrophils (%) (Auto) 92 % (31-73) Lymphocytes (%) (Auto) 4 % (24-48) Monocytes (%) (Auto) 4 % (0-9) Eosinophils (%) (Auto) 0 % (0-3) Basophils (%) (Auto) 1 % (0-3) Neutrophils # (Auto) 10.4 x10^3uL (1.8-7.7) Lymphocytes # (Auto) 0.4 x10^3/uL (1.0-4.8) Monocytes # (Auto) 0.4 x10^3/uL (0.0-1.1) Eosinophils # (Auto) 0.0 x10^3/uL (0.0-0.7) Basophils # (Auto) 0.1 x10^3/uL (0.0-0.2) Sodium Level 142 mmol/L (136-145) Potassium Level 4.3 mmol/L (3.5-5.1) Chloride Level 110 mmol/L (98-107) Carbon Dioxide Level 25 mmol/L (21-32) Anion Gap 7 (6-14) Blood Urea Nitrogen 49 mg/dL (7-20) Creatinine 0.8 mg/dL (0.6-1.0) Estimated GFR (Cockcroft-Gault) 73.2 Glucose Level 182 mg/dL (70-99) Calcium Level 8.6 mg/dL (8.5-10.1) O2 Saturation 98 % (92-99) Arterial Blood pH 7.42 (7.35-7.45) Arterial Blood pCO2 at Patient Temp 36 mmHg (35-46) Arterial Blood pO2 at Patient Temp 119 mmHg (65-108) Arterial Blood HCO3 23 mmol/L (21-28) Arterial Blood Base Excess -1 mmol/L (-3-3) FiO2 40 Glucose (Fingerstick) 162 mg/dL (70-99) Medications Active Scripts Medications Dose Route/Sig Max Daily Dose Days Date Category Gabapentin 300 Mg Capsule 300 Mg PO TID 09/18/17 Reported Cymbalta (Duloxetine Hcl) 60 Mg Capsule.dr 1 Cap PO BID 09/18/17 Reported Hydrochlorothiazide Tablet (Hydrochlorothiazide) 25 Mg Tablet 1 Tab PO DAILY 09/17/17 Reported Xanax (Alprazolam) 1 Mg Tablet 1 Tab PO TID PRN 09/17/17 Reported Comments CXR REVIEWED NO CHANGE Impression . 1. Acute hypoxic respiratory failure/ARDS 2. Anemia 3. COPD 4. Acute renal failure 5. Sepsis with hypotension 6. S/P Bronch so far BAL negative Plan . WILL CHECK A T TUBE TRIAL AND POSSIBLE EXTUBATE PS TILL QHS CXR ABOUT THE SAME, OXYGENATION IS BETTER 1. SEDATE NOTED ANCA NEGATIVE 2. AC mode 3. ANTIBX PER ID Influenza screen neg. Micafungin added for budding yeast on BAL. 4. CT chest with diffuse parenchymal GG infiltrates 5. FOLLOW NEPHRO INPUT 6. Hematology following for workup of anemia. 7. TUBE FEED 8. ON STEROIDS 9. TX PRBC prn RAKEL MCKENNA MD Sep 29, 2017 15:46
[2017-09-29 16:31] LABS: HCO3 ABG 22 mmol/L (21-28); PCO2 ABG 34 mmHg (35-46); PH ABG 7.43 (7.35-7.45); PO2 ABG 95 mmHg (65-108); SAT O2 ABG 97 % (92-99)
[2017-09-29 16:34] LABS: FIO2 ABG 40 t-tube
[2017-09-29] MEDS: IV DEXTROSE 5 %-0.45 % NACL 1,000 ML IV SCH (18:37)
[2017-09-29] MEDS: ENOXAPARIN 40 MG/0.4 ML SYRINGE. SQ SCH (18:39)
[2017-09-29] MEDS: ONDANSETRON PF 4 MG/2 ML VIAL. IV PRN (20:13)
[2017-09-30] VITALS (16 sets, daily range): BP systolic 118–156; BP diastolic 70–87
[2017-09-30] MEDS: PIPERACILLIN/TAZO IV Push 3.375 GM VIAL. IVP SCH ×4 (00:07→17:48)
[2017-09-30] MEDS: IPRATRPIUM/ALBUTEROL 0.5/2.5MG 3 ML NEBU. NEB SCH ×4 (04:04→20:07)
[2017-09-30] MEDS: ONDANSETRON PF 4 MG/2 ML VIAL. IV PRN (04:05)
[2017-09-30] MEDS: INSULIN ASPART 300 UNITS/3 ML INSULN.PEN SQ SCH ×4 (05:40→17:17)
[2017-09-30] MEDS: methylPREDNISolone SOD SUCC PF 125 MG/2 ML VIAL. IV SCH ×2 (05:47→20:36)
[2017-09-30] MEDS: IV DEXTROSE 5 %-0.45 % NACL 1,000 ML IV SCH ×2 (06:15→17:47)
[2017-09-30 06:16] LABS: BASO % 0 % (0-3); EOS % 0 % (0-3); HEMATOCRIT 31.4 % (36.0-47.0); HEMOGLOBIN 9.6 g/dL (12.0-15.5); LYMPH # 0.6 x10^3/uL (1.0-4.8); LYMPH % 4 % (24-48); MEAN CORPUSCULAR HEMOGLOBIN 26 pg (25-35); MEAN CORPUSCULAR HGB CONC 31 g/dL (31-37); MEAN CORPUSCULAR VOLUME 84 fL (79-100); MONO % 5 % (0-9); NEUT % 91 % (31-73); PLATELET COUNT 340 x10^3/uL (140-400); RED BLOOD COUNT 3.75 x10^6/uL (3.50-5.40); RED CELL DISTRIBUTION WIDTH 29.5 % (11.5-14.5); WHITE BLOOD COUNT 15.7 x10^3/uL (4.0-11.0)
[2017-09-30 06:26] LABS: CALCIUM 8.3 mg/dL (8.5-10.1); CREATININE 0.8 mg/dL (0.6-1.0); GFR 73.2; POTASSIUM 4.3 mmol/L (3.5-5.1)
[2017-09-30] MEDS: BUDESONIDE 0.5 MG/2 ML NEBU. NEB SCH ×2 (08:11→20:00)
--- NOTE | 2017-09-30 08:19 | RAD ---
Single view chest History:ARDS An AP view of the chest is submitted. Comparison: 09/29/2017. Findings: Previously seen endotracheal tube and enteric catheter have been removed. There is again right internal jugular venous catheter with the tip near the cavoatrial junction. Pericardial cardiac silhouette is stable. There is somewhat improved aeration at the left lung base. There is again some hazy opacity of the lung bases, also interstitial opacity bilaterally. There is some questionable mild increased airspace opacity of the right lung base. There is no pneumothorax. There may be trace residual left pleural effusion. Impression: There has been removal of previously seen endotracheal and enteric catheters. There is improved aeration of the left lung base, some questionable mild increased airspace opacity of the right lung base which could be due to atelectasis or edema. Interstitial opacity persists.
--- NOTE | 2017-09-30 09:25 | PDOC ---
PULMONARY PROGRESS NOTES Subjective EXTUBATED 09/29 NOW CONFUSED OFF 02 Vitals Vital Signs Date Time Temp Pulse Resp B/P (MAP) Pulse Ox O2 Delivery O2 Flow Rate FiO2 09/30/17 09:00 83 25 136/70 (92) 96 Room Air 09/30/17 08:00 97.3 97.3 09/29/17 23:36 3.0 General: Confused Lungs: Clear Cardiovascular: S1, S2 Abdomen: Soft Extremities: No Edema, Other (WEAKNESS) Skin: Warm Labs Laboratory Tests Test 09/28/17 13:06 09/28/17 16:14 09/28/17 16:45 09/28/17 18:35 Glucose (Fingerstick) 144 mg/dL (70-99) 136 mg/dL (70-99) O2 Saturation 96 % (92-99) Arterial Blood pH 7.46 (7.35-7.45) Arterial Blood pCO2 at Patient Temp 34 mmHg (35-46) Arterial Blood pO2 at Patient Temp 80 mmHg (65-108) Arterial Blood HCO3 24 mmol/L (21-28) Arterial Blood Base Excess 0 mmol/L (-3-3) FiO2 40 Clostridium difficile Toxin (PCR) Negative (Negative) Test 09/29/17 00:31 09/29/17 05:59 09/29/17 06:00 09/29/17 07:20 Glucose (Fingerstick) 192 mg/dL (70-99) 166 mg/dL (70-99) White Blood Count 11.3 x10^3/uL (4.0-11.0) Red Blood Count 3.44 x10^6/uL (3.50-5.40) Hemoglobin 8.9 g/dL (12.0-15.5) Hematocrit 28.9 % (36.0-47.0) Mean Corpuscular Volume 84 fL (79-100) Mean Corpuscular Hemoglobin 26 pg (25-35) Mean Corpuscular Hemoglobin Concent 31 g/dL (31-37) Red Cell Distribution Width 28.9 % (11.5-14.5) Platelet Count 300 x10^3/uL (140-400) Neutrophils (%) (Auto) 92 % (31-73) Lymphocytes (%) (Auto) 4 % (24-48) Monocytes (%) (Auto) 4 % (0-9) Eosinophils (%) (Auto) 0 % (0-3) Basophils (%) (Auto) 1 % (0-3) Neutrophils # (Auto) 10.4 x10^3uL (1.8-7.7) Lymphocytes # (Auto) 0.4 x10^3/uL (1.0-4.8) Monocytes # (Auto) 0.4 x10^3/uL (0.0-1.1) Eosinophils # (Auto) 0.0 x10^3/uL (0.0-0.7) Basophils # (Auto) 0.1 x10^3/uL (0.0-0.2) Sodium Level 142 mmol/L (136-145) Potassium Level 4.3 mmol/L (3.5-5.1) Chloride Level 110 mmol/L (98-107) Carbon Dioxide Level 25 mmol/L (21-32) Anion Gap 7 (6-14) Blood Urea Nitrogen 49 mg/dL (7-20) Creatinine 0.8 mg/dL (0.6-1.0) Estimated GFR (Cockcroft-Gault) 73.2 Glucose Level 182 mg/dL (70-99) Calcium Level 8.6 mg/dL (8.5-10.1) O2 Saturation 98 % (92-99) Arterial Blood pH 7.42 (7.35-7.45) Arterial Blood pCO2 at Patient Temp 36 mmHg (35-46) Arterial Blood pO2 at Patient Temp 119 mmHg (65-108) Arterial Blood HCO3 23 mmol/L (21-28) Arterial Blood Base Excess -1 mmol/L (-3-3) FiO2 40 Test 09/29/17 12:24 09/29/17 16:20 09/29/17 18:36 09/30/17 00:12 Glucose (Fingerstick) 162 mg/dL (70-99) 115 mg/dL (70-99) 110 mg/dL (70-99) O2 Saturation 97 % (92-99) Arterial Blood pH 7.43 (7.35-7.45) Arterial Blood pCO2 at Patient Temp 34 mmHg (35-46) Arterial Blood pO2 at Patient Temp 95 mmHg (65-108) Arterial Blood HCO3 22 mmol/L (21-28) Arterial Blood Base Excess -2 mmol/L (-3-3) FiO2 40 t-tube Test 09/30/17 05:39 09/30/17 06:00 Glucose (Fingerstick) 98 mg/dL (70-99) White Blood Count 15.7 x10^3/uL (4.0-11.0) Red Blood Count 3.75 x10^6/uL (3.50-5.40) Hemoglobin 9.6 g/dL (12.0-15.5) Hematocrit 31.4 % (36.0-47.0) Mean Corpuscular Volume 84 fL (79-100) Mean Corpuscular Hemoglobin 26 pg (25-35) Mean Corpuscular Hemoglobin Concent 31 g/dL (31-37) Red Cell Distribution Width 29.5 % (11.5-14.5) Platelet Count 340 x10^3/uL (140-400) Neutrophils (%) (Auto) 91 % (31-73) Lymphocytes (%) (Auto) 4 % (24-48) Monocytes (%) (Auto) 5 % (0-9) Eosinophils (%) (Auto) 0 % (0-3) Basophils (%) (Auto) 0 % (0-3) Neutrophils # (Auto) 14.3 x10^3uL (1.8-7.7) Lymphocytes # (Auto) 0.6 x10^3/uL (1.0-4.8) Monocytes # (Auto) 0.8 x10^3/uL (0.0-1.1) Eosinophils # (Auto) 0.0 x10^3/uL (0.0-0.7) Basophils # (Auto) 0.0 x10^3/uL (0.0-0.2) Sodium Level 143 mmol/L (136-145) Potassium Level 4.3 mmol/L (3.5-5.1) Chloride Level 111 mmol/L (98-107) Carbon Dioxide Level 26 mmol/L (21-32) Anion Gap 6 (6-14) Blood Urea Nitrogen 48 mg/dL (7-20) Creatinine 0.8 mg/dL (0.6-1.0) Estimated GFR (Cockcroft-Gault) 73.2 Glucose Level 106 mg/dL (70-99) Calcium Level 8.3 mg/dL (8.5-10.1) Laboratory Tests Test 09/29/17 12:24 09/29/17 16:20 09/29/17 18:36 09/30/17 00:12 Glucose (Fingerstick) 162 mg/dL (70-99) 115 mg/dL (70-99) 110 mg/dL (70-99) O2 Saturation 97 % (92-99) Arterial Blood pH 7.43 (7.35-7.45) Arterial Blood pCO2 at Patient Temp 34 mmHg (35-46) Arterial Blood pO2 at Patient Temp 95 mmHg (65-108) Arterial Blood HCO3 22 mmol/L (21-28) Arterial Blood Base Excess -2 mmol/L (-3-3) FiO2 40 t-tube Test 09/30/17 05:39 09/30/17 06:00 Glucose (Fingerstick) 98 mg/dL (70-99) White Blood Count 15.7 x10^3/uL (4.0-11.0) Red Blood Count 3.75 x10^6/uL (3.50-5.40) Hemoglobin 9.6 g/dL (12.0-15.5) Hematocrit 31.4 % (36.0-47.0) Mean Corpuscular Volume 84 fL (79-100) Mean Corpuscular Hemoglobin 26 pg (25-35) Mean Corpuscular Hemoglobin Concent 31 g/dL (31-37) Red Cell Distribution Width 29.5 % (11.5-14.5) Platelet Count 340 x10^3/uL (140-400) Neutrophils (%) (Auto) 91 % (31-73) Lymphocytes (%) (Auto) 4 % (24-48) Monocytes (%) (Auto) 5 % (0-9) Eosinophils (%) (Auto) 0 % (0-3) Basophils (%) (Auto) 0 % (0-3) Neutrophils # (Auto) 14.3 x10^3uL (1.8-7.7) Lymphocytes # (Auto) 0.6 x10^3/uL (1.0-4.8) Monocytes # (Auto) 0.8 x10^3/uL (0.0-1.1) Eosinophils # (Auto) 0.0 x10^3/uL (0.0-0.7) Basophils # (Auto) 0.0 x10^3/uL (0.0-0.2) Sodium Level 143 mmol/L (136-145) Potassium Level 4.3 mmol/L (3.5-5.1) Chloride Level 111 mmol/L (98-107) Carbon Dioxide Level 26 mmol/L (21-32) Anion Gap 6 (6-14) Blood Urea Nitrogen 48 mg/dL (7-20) Creatinine 0.8 mg/dL (0.6-1.0) Estimated GFR (Cockcroft-Gault) 73.2 Glucose Level 106 mg/dL (70-99) Calcium Level 8.3 mg/dL (8.5-10.1) Medications Active Scripts Medications Dose Route/Sig Max Daily Dose Days Date Category Gabapentin 300 Mg Capsule 300 Mg PO TID 09/18/17 Reported Cymbalta (Duloxetine Hcl) 60 Mg Capsule. 1 Cap PO BID 09/18/17 Reported Hydrochlorothiazide Tablet (Hydrochlorothiazide) 25 Mg Tablet 1 Tab PO DAILY 09/17/17 Reported Xanax (Alprazolam) 1 Mg Tablet 1 Tab PO TID PRN 09/17/17 Reported Comments Impression: There has been removal of previously seen endotracheal and enteric catheters. There is improved aeration of the left lung base, some questionable mild increased airspace opacity of the right lung base which could be due to atelectasis or edema. Interstitial opacity persists. Impression . 1. Acute hypoxic respiratory failure/ARDS 2. Anemia 3. COPD 4. Acute renal failure 5. Sepsis with hypotension 6. S/P Bronch so far BAL negative 7. CC POLYNEUROPATHY ? Plan . SEE ORDERS SPOKE WITH AT BEDSIDE SPEECH, PT CONSULT DR MARROQUIN DVT PROPH ALL CULTURES NEGATIVE ANCA NEGATIVE START DECREASING STEROIDS RAKEL MCKENNA MD Sep 30, 2017 09:25
[2017-09-30] MEDS: PANTOPRAZOLE IV PUSH 40 MG VIAL. IVP SCH (10:00)
--- NOTE | 2017-09-30 11:16 | PDOC ---
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 (09/20). clean Labs Lab Laboratory Tests Test 09/29/17 12:24 09/29/17 16:20 09/29/17 18:36 09/30/17 00:12 Glucose (Fingerstick) 162 mg/dL (70-99) 115 mg/dL (70-99) 110 mg/dL (70-99) O2 Saturation 97 % (92-99) Arterial Blood pH 7.43 (7.35-7.45) Arterial Blood pCO2 at Patient Temp 34 mmHg (35-46) Arterial Blood pO2 at Patient Temp 95 mmHg (65-108) Arterial Blood HCO3 22 mmol/L (21-28) Arterial Blood Base Excess -2 mmol/L (-3-3) FiO2 40 t-tube Test 09/30/17 05:39 09/30/17 06:00 Glucose (Fingerstick) 98 mg/dL (70-99) White Blood Count 15.7 x10^3/uL (4.0-11.0) Red Blood Count 3.75 x10^6/uL (3.50-5.40) Hemoglobin 9.6 g/dL (12.0-15.5) Hematocrit 31.4 % (36.0-47.0) Mean Corpuscular Volume 84 fL (79-100) Mean Corpuscular Hemoglobin 26 pg (25-35) Mean Corpuscular Hemoglobin Concent 31 g/dL (31-37) Red Cell Distribution Width 29.5 % (11.5-14.5) Platelet Count 340 x10^3/uL (140-400) Neutrophils (%) (Auto) 91 % (31-73) Lymphocytes (%) (Auto) 4 % (24-48) Monocytes (%) (Auto) 5 % (0-9) Eosinophils (%) (Auto) 0 % (0-3) Basophils (%) (Auto) 0 % (0-3) Neutrophils # (Auto) 14.3 x10^3uL (1.8-7.7) Lymphocytes # (Auto) 0.6 x10^3/uL (1.0-4.8) Monocytes # (Auto) 0.8 x10^3/uL (0.0-1.1) Eosinophils # (Auto) 0.0 x10^3/uL (0.0-0.7) Basophils # (Auto) 0.0 x10^3/uL (0.0-0.2) Sodium Level 143 mmol/L (136-145) Potassium Level 4.3 mmol/L (3.5-5.1) Chloride Level 111 mmol/L (98-107) Carbon Dioxide Level 26 mmol/L (21-32) Anion Gap 6 (6-14) Blood Urea Nitrogen 48 mg/dL (7-20) Creatinine 0.8 mg/dL (0.6-1.0) Estimated GFR (Cockcroft-Gault) 73.2 Glucose Level 106 mg/dL (70-99) Calcium Level 8.3 mg/dL (8.5-10.1) CXR Impression: There has been removal of previously seen endotracheal and enteric catheters. There is improved aeration of the left lung base, some questionable mild increased airspace opacity of the right lung base which could be due to atelectasis or edema. Interstitial opacity persists. Objective Assessment Acute Resp failure - intubated Strep/Legionella antigens - neg. S/p Bronch 09/20 , no growth to date; now extubated Encephalopathy Hypotension, now off Levophed Lactic normal/Procalcitonin mild - elevation Pulm infiltrates - ARDS ? if transfusions could be playing into resp failure Anemia - on arrival s/p PRBCs - GI following Leukocytosis - on steroids now and S/p PRBCs GEO -stable Transaminitis - ? reactive COPD H/o Leg wounds - no recent abx per for wounds - last amox 6 weeks ago Influenza vaccine 09/17 - given C. diff neg, 09/28 Plan Plan of Care To, Resp viral panel/Silver stain was ordered but cancelled by pathology F/u Mycoplasma 09/20 pending elevated wbc likely sec to steroids cont supportive care d/w Patient seen and examined. Case discussed with WATER TESTER. Chart reviewed in detail. Agree with above plan WEI RICHARDS APRN Sep 30, 2017 11:16 SARITA MIRANDA MD Sep 30, 2017 16:40
[2017-09-30] MEDS: IV DEXTROSE 5% 1,000 ML IV SCH (11:45)
--- NOTE | 2017-09-30 13:52 | PDOC ---
PROGRESS NOTES Chief Complaint Chief Complaint Acute hypoxic respiratory failure consistent with ARDS Pneumonia Hypotension COPD Sepsis Leukocytosis - on steroids now and S/p PRBCs Anemia, acute on chronic Transaminitis - ? reactive GEO -stable Tobaccoism Anxiety d/o H/o Leg wounds - no recent abx per for wounds - last amox 6 weeks ago Influenza vaccine 09/17 - given History of Present Illness History of Present Illness Pt. seen and examined today in the ICU Pt siting upright in chair, confused but cooperative and pleasant pt c/o of dryness and thirst Extubated 09/30/2017 Care plan discussed with Discharge disposition to [facility] Vitals Vitals Vital Signs Date Time Temp Pulse Resp B/P (MAP) Pulse Ox O2 Delivery O2 Flow Rate FiO2 09/30/17 12:00 Room Air 09/30/17 12:00 98.1 86 20 145/87 (106) 98 98.1 09/29/17 23:36 3.0 Physical Exam General: Cooperative, No acute distress, Other Heart: Regular rate, Normal S1, Normal S2, No murmurs Lungs: Clear, Other (no wheezes or crackles ) Abdomen: Normal bowel sounds, Soft Extremities: No clubbing, No cyanosis, Normal pulses, Other (1+ edema) Skin: No rashes, No significant lesion Labs LABS Laboratory Tests Test 09/29/17 16:20 09/29/17 18:36 09/30/17 00:12 09/30/17 05:39 O2 Saturation 97 % (92-99) Arterial Blood pH 7.43 (7.35-7.45) Arterial Blood pCO2 at Patient Temp 34 mmHg (35-46) Arterial Blood pO2 at Patient Temp 95 mmHg (65-108) Arterial Blood HCO3 22 mmol/L (21-28) Arterial Blood Base Excess -2 mmol/L (-3-3) FiO2 40 t-tube Glucose (Fingerstick) 115 mg/dL (70-99) 110 mg/dL (70-99) 98 mg/dL (70-99) Test 09/30/17 06:00 White Blood Count 15.7 x10^3/uL (4.0-11.0) Red Blood Count 3.75 x10^6/uL (3.50-5.40) Hemoglobin 9.6 g/dL (12.0-15.5) Hematocrit 31.4 % (36.0-47.0) Mean Corpuscular Volume 84 fL (79-100) Mean Corpuscular Hemoglobin 26 pg (25-35) Mean Corpuscular Hemoglobin Concent 31 g/dL (31-37) Red Cell Distribution Width 29.5 % (11.5-14.5) Platelet Count 340 x10^3/uL (140-400) Neutrophils (%) (Auto) 91 % (31-73) Lymphocytes (%) (Auto) 4 % (24-48) Monocytes (%) (Auto) 5 % (0-9) Eosinophils (%) (Auto) 0 % (0-3) Basophils (%) (Auto) 0 % (0-3) Neutrophils # (Auto) 14.3 x10^3uL (1.8-7.7) Lymphocytes # (Auto) 0.6 x10^3/uL (1.0-4.8) Monocytes # (Auto) 0.8 x10^3/uL (0.0-1.1) Eosinophils # (Auto) 0.0 x10^3/uL (0.0-0.7) Basophils # (Auto) 0.0 x10^3/uL (0.0-0.2) Sodium Level 143 mmol/L (136-145) Potassium Level 4.3 mmol/L (3.5-5.1) Chloride Level 111 mmol/L (98-107) Carbon Dioxide Level 26 mmol/L (21-32) Anion Gap 6 (6-14) Blood Urea Nitrogen 48 mg/dL (7-20) Creatinine 0.8 mg/dL (0.6-1.0) Estimated GFR (Cockcroft-Gault) 73.2 Glucose Level 106 mg/dL (70-99) Calcium Level 8.3 mg/dL (8.5-10.1) Review of Systems Review of Systems General: Admits to fatigue Heart: Denies any Chest pain Lungs: denies any SOB GI: admits to vomiting Assessment and Plan Assessmemt and Plan Problems Medical Problems: (1) Dyspnea Status: Acute (2) Hypoalbuminemia Status: Acute (3) Metabolic acidosis Status: Acute (4) Pneumonia Status: Acute Assessment: Acute hypoxic respiratory failure consistent with ARDS Pneumonia Hypotension COPD Sepsis Leukocytosis - on steroids now and S/p PRBCs Anemia, acute on chronic Transaminitis - ? reactive GEO -stable Tobaccoism Anxiety d/o H/o Leg wounds - no recent abx per for wounds - last amox 6 weeks ago Influenza vaccine 09/17 - given Plan: Possible d/c to [facility] on Sunday Continue home medications Continue abx Continue breathing treatments Continue PT/OT Recheck labs in am Problems: Comment Review of Relevant I have reviewed the following items tha (where applicable) has been applied. Labs Laboratory Tests Test 09/28/17 16:14 09/28/17 16:45 09/28/17 18:35 09/29/17 00:31 O2 Saturation 96 % (92-99) Arterial Blood pH 7.46 (7.35-7.45) Arterial Blood pCO2 at Patient Temp 34 mmHg (35-46) Arterial Blood pO2 at Patient Temp 80 mmHg (65-108) Arterial Blood HCO3 24 mmol/L (21-28) Arterial Blood Base Excess 0 mmol/L (-3-3) FiO2 40 Clostridium difficile Toxin (PCR) Negative (Negative) Glucose (Fingerstick) 136 mg/dL (70-99) 192 mg/dL (70-99) Test 09/29/17 05:59 09/29/17 06:00 09/29/17 07:20 09/29/17 12:24 Glucose (Fingerstick) 166 mg/dL (70-99) 162 mg/dL (70-99) White Blood Count 11.3 x10^3/uL (4.0-11.0) Red Blood Count 3.44 x10^6/uL (3.50-5.40) Hemoglobin 8.9 g/dL (12.0-15.5) Hematocrit 28.9 % (36.0-47.0) Mean Corpuscular Volume 84 fL (79-100) Mean Corpuscular Hemoglobin 26 pg (25-35) Mean Corpuscular Hemoglobin Concent 31 g/dL (31-37) Red Cell Distribution Width 28.9 % (11.5-14.5) Platelet Count 300 x10^3/uL (140-400) Neutrophils (%) (Auto) 92 % (31-73) Lymphocytes (%) (Auto) 4 % (24-48) Monocytes (%) (Auto) 4 % (0-9) Eosinophils (%) (Auto) 0 % (0-3) Basophils (%) (Auto) 1 % (0-3) Neutrophils # (Auto) 10.4 x10^3uL (1.8-7.7) Lymphocytes # (Auto) 0.4 x10^3/uL (1.0-4.8) Monocytes # (Auto) 0.4 x10^3/uL (0.0-1.1) Eosinophils # (Auto) 0.0 x10^3/uL (0.0-0.7) Basophils # (Auto) 0.1 x10^3/uL (0.0-0.2) Sodium Level 142 mmol/L (136-145) Potassium Level 4.3 mmol/L (3.5-5.1) Chloride Level 110 mmol/L (98-107) Carbon Dioxide Level 25 mmol/L (21-32) Anion Gap 7 (6-14) Blood Urea Nitrogen 49 mg/dL (7-20) Creatinine 0.8 mg/dL (0.6-1.0) Estimated GFR (Cockcroft-Gault) 73.2 Glucose Level 182 mg/dL (70-99) Calcium Level 8.6 mg/dL (8.5-10.1) O2 Saturation 98 % (92-99) Arterial Blood pH 7.42 (7.35-7.45) Arterial Blood pCO2 at Patient Temp 36 mmHg (35-46) Arterial Blood pO2 at Patient Temp 119 mmHg (65-108) Arterial Blood HCO3 23 mmol/L (21-28) Arterial Blood Base Excess -1 mmol/L (-3-3) FiO2 40 Test 09/29/17 16:20 09/29/17 18:36 09/30/17 00:12 09/30/17 05:39 O2 Saturation 97 % (92-99) Arterial Blood pH 7.43 (7.35-7.45) Arterial Blood pCO2 at Patient Temp 34 mmHg (35-46) Arterial Blood pO2 at Patient Temp 95 mmHg (65-108) Arterial Blood HCO3 22 mmol/L (21-28) Arterial Blood Base Excess -2 mmol/L (-3-3) FiO2 40 t-tube Glucose (Fingerstick) 115 mg/dL (70-99) 110 mg/dL (70-99) 98 mg/dL (70-99) Test 09/30/17 06:00 White Blood Count 15.7 x10^3/uL (4.0-11.0) Red Blood Count 3.75 x10^6/uL (3.50-5.40) Hemoglobin 9.6 g/dL (12.0-15.5) Hematocrit 31.4 % (36.0-47.0) Mean Corpuscular Volume 84 fL (79-100) Mean Corpuscular Hemoglobin 26 pg (25-35) Mean Corpuscular Hemoglobin Concent 31 g/dL (31-37) Red Cell Distribution Width 29.5 % (11.5-14.5) Platelet Count 340 x10^3/uL (140-400) Neutrophils (%) (Auto) 91 % (31-73) Lymphocytes (%) (Auto) 4 % (24-48) Monocytes (%) (Auto) 5 % (0-9) Eosinophils (%) (Auto) 0 % (0-3) Basophils (%) (Auto) 0 % (0-3) Neutrophils # (Auto) 14.3 x10^3uL (1.8-7.7) Lymphocytes # (Auto) 0.6 x10^3/uL (1.0-4.8) Monocytes # (Auto) 0.8 x10^3/uL (0.0-1.1) Eosinophils # (Auto) 0.0 x10^3/uL (0.0-0.7) Basophils # (Auto) 0.0 x10^3/uL (0.0-0.2) Sodium Level 143 mmol/L (136-145) Potassium Level 4.3 mmol/L (3.5-5.1) Chloride Level 111 mmol/L (98-107) Carbon Dioxide Level 26 mmol/L (21-32) Anion Gap 6 (6-14) Blood Urea Nitrogen 48 mg/dL (7-20) Creatinine 0.8 mg/dL (0.6-1.0) Estimated GFR (Cockcroft-Gault) 73.2 Glucose Level 106 mg/dL (70-99) Calcium Level 8.3 mg/dL (8.5-10.1) Laboratory Tests Test 09/29/17 16:20 09/29/17 18:36 09/30/17 00:12 09/30/17 05:39 O2 Saturation 97 % (92-99) Arterial Blood pH 7.43 (7.35-7.45) Arterial Blood pCO2 at Patient Temp 34 mmHg (35-46) Arterial Blood pO2 at Patient Temp 95 mmHg (65-108) Arterial Blood HCO3 22 mmol/L (21-28) Arterial Blood Base Excess -2 mmol/L (-3-3) FiO2 40 t-tube Glucose (Fingerstick) 115 mg/dL (70-99) 110 mg/dL (70-99) 98 mg/dL (70-99) Test 09/30/17 06:00 White Blood Count 15.7 x10^3/uL (4.0-11.0) Red Blood Count 3.75 x10^6/uL (3.50-5.40) Hemoglobin 9.6 g/dL (12.0-15.5) Hematocrit 31.4 % (36.0-47.0) Mean Corpuscular Volume 84 fL (79-100) Mean Corpuscular Hemoglobin 26 pg (25-35) Mean Corpuscular Hemoglobin Concent 31 g/dL (31-37) Red Cell Distribution Width 29.5 % (11.5-14.5) Platelet Count 340 x10^3/uL (140-400) Neutrophils (%) (Auto) 91 % (31-73) Lymphocytes (%) (Auto) 4 % (24-48) Monocytes (%) (Auto) 5 % (0-9) Eosinophils (%) (Auto) 0 % (0-3) Basophils (%) (Auto) 0 % (0-3) Neutrophils # (Auto) 14.3 x10^3uL (1.8-7.7) Lymphocytes # (Auto) 0.6 x10^3/uL (1.0-4.8) Monocytes # (Auto) 0.8 x10^3/uL (0.0-1.1) Eosinophils # (Auto) 0.0 x10^3/uL (0.0-0.7) Basophils # (Auto) 0.0 x10^3/uL (0.0-0.2) Sodium Level 143 mmol/L (136-145) Potassium Level 4.3 mmol/L (3.5-5.1) Chloride Level 111 mmol/L (98-107) Carbon Dioxide Level 26 mmol/L (21-32) Anion Gap 6 (6-14) Blood Urea Nitrogen 48 mg/dL (7-20) Creatinine 0.8 mg/dL (0.6-1.0) Estimated GFR (Cockcroft-Gault) 73.2 Glucose Level 106 mg/dL (70-99) Calcium Level 8.3 mg/dL (8.5-10.1) Microbiology 09/17/17 Blood Culture - Final, Complete NO GROWTH AFTER 5 DAYS 09/20/17 AFB Specimen Processing Tissue - Final, Resulted 09/20/17 Acid Fast Bacilli Culture, Resulted Pending 09/20/17 Gram Stain - Final, Resulted 09/20/17 Fungal Culture - Preliminary, Resulted 09/20/17 Fungal Culture Result 1 - Preliminary, Resulted Medications Current Medications Sodium Chloride 1,000 ml @ 125 mls/hr 1X ONCE IV Last administered on 15:54; Start 09/17/17 at 15:15; Stop 09/17/17 at 23:14; Status DC Ondansetron HCl (Zofran) 4 mg PRN Q8HRS PRN IV NAUSEA/VOMITING; Start at 16:30; Stop 09/18/17 at 16:29; Status DC Ceftriaxone Sodium 50 ml @ 0 mls/hr 1X ONCE IV Last administered on 17:33; Start 09/17/17 at 16:45; Stop 09/17/17 at 16:46; Status DC Azithromycin 250 ml @ 250 mls/hr 1X ONCE IV Last administered on 09/17/17 22:38; Start 09/17/17 at 16:30; Stop 09/17/17 at 17:29; Status DC Albuterol/ Ipratropium (Duoneb) 3 ml 1X ONCE NEB Last administered on 17:00; Start 09/17/17 at 16:45; Stop 09/17/17 at 16:46; Status DC Potassium Chloride (Klor-Con) 40 meq 1X ONCE PO Last administered on 16:57; Start 09/17/17 at 16:45; Stop 09/17/17 at 16:46; Status DC Azithromycin (Zithromax) 250 mg DAILY PO Last administered on 09/18/17 10:25 ; Start 09/18/17 at 09:00; Stop 09/19/17 at 10:30; Status DC Ceftriaxone Sodium 1 gm/ Dextrose 50 ml @ 100 mls/hr Q24H IV ; Start 09/17/17 at 17:15; Status UNV Albuterol/ Ipratropium (Duoneb) 3 ml Q4HRS NEB Last administered on 09/30/17 08:11; Start 09/17/17 at 20:00; Stop 09/30/17 at 09:21; Status DC Ceftriaxone Sodium (Rocephin) 1 gm Q24H IVP Last administered on 09/18/17 17: 55; Start 09/18/17 at 16:00; Stop 09/19/17 at 10:30; Status DC Guaifenesin (Robitussin Dm) 10 ml PRN Q6HRS PRN PO COUGH; Start 09/17/17 at 17 :15; Stop 09/30/17 at 09:21; Status DC Sodium Chloride 1,000 ml @ 125 mls/hr 1X ONCE IV Last administered on 17:45; Start 09/17/17 at 17:15; Stop 09/17/17 at 22:12; Status DC Info (Do NOT chart on this placeholder) 1 each 1X ONCE MC ; Start 09/17/17 at 19:00; Stop 09/17/17 at 19:01; Status UNV Influenza Virus Vaccine Quadrival (Fluarix Quad [id number] Syringe) 0.5 ml ONCE ONCE VAX IM ; Start 09/17/17 at 21:00; Stop 09/17/17 at 21:01; Status DC Sodium Chloride 1,000 ml @ 130 mls/hr 1X ONCE IV Last administered on 22:31; Start 09/17/17 at 22:30; Stop 09/18/17 at 06:11; Status DC Sodium Bicarbonate 50 meq 1X ONCE IV Last administered on 09/17/17 22:31; Start 09/17/17 at 22:30; Stop 09/17/17 at 22:31; Status DC Alprazolam (Xanax) 1 mg PRN TID PRN PO ANXIETY Last administered on 09/19/17 02:19; Start 09/17/17 at 22:30; Stop 09/30/17 at 09:21; Status DC Furosemide (Lasix) 20 mg 1X ONCE IVP Last administered on 09/18/17 06:24; Start 09/18/17 at 06:30; Stop 09/18/17 at 06:31; Status DC Potassium Chloride (Klor-Con) 40 meq 1X ONCE PO Last administered on 10:25; Start 09/18/17 at 09:00; Stop 09/18/17 at 09:01; Status DC Iron Sucrose 500 mg/Sodium Chloride 275 ml @ 78.571 mls/ hr 1X ONCE IV Last administered on 09/18/17 10:24; Start 09/18/17 at 09:00; Stop 09/18/17 at 12 :29; Status DC Furosemide (Lasix) 20 mg 1X ONCE IVP Last administered on 09/18/17 10:30; Start 09/18/17 at 10:00; Stop 09/18/17 at 10:22; Status DC Pantoprazole Sodium (Protonix) 40 mg DAILYAC PO Last administered on 10:47; Start 09/18/17 at 11:00; Stop 09/19/17 at 13:41; Status DC Furosemide (Lasix) 20 mg 1X ONCE IVP Last administered on 09/18/17 10:47; Start 09/18/17 at 10:45; Stop 09/18/17 at 10:46; Status DC Potassium Chloride (Klor-Con) 40 meq 1X ONCE PO ; Start 09/18/17 at 11:45; Stop 09/18/17 at 11:46; Status DC Oxycodone/ Acetaminophen (Percocet 5/325) 1 tab PRN Q6HRS PRN PO PAIN Last administered on 09/18/17 13:23; Start 09/18/17 at 12:15 Lorazepam (Ativan) 1 mg PRN Q4HRS PRN IV ANXIETY / AGITATION Last administered on 09/18/17 12:25; Start 09/18/17 at 12:15; Stop 09/18/17 at 13:34; Status DC Fentanyl Citrate (Fentanyl 2ml Vial) 50 mcg PRN Q2HR PRN IV PAIN Last administered on 09/19/17 04:09; Start 09/18/17 at 12:15; Stop 09/30/17 at 09 :21; Status DC Lorazepam (Ativan) 2 mg PRN Q4HRS PRN IV ANXIETY / AGITATION Last administered on 09/29/17 05:17; Start 09/18/17 at 13:30; Stop 09/30/17 at 09:21; Status DC Quetiapine Fumarate (SEROquel) 25 mg HS PO Last administered on 09/18/17 21: 03; Start 09/18/17 at 21:00; Stop 09/19/17 at 10:35; Status DC Haloperidol Lactate (Haldol) 5 mg PRN Q12HRS PRN IVP AGITATION; Start at 13:45 Lorazepam (Ativan) 1 mg PRN Q4HRS PRN IV ANXIETY / AGITATION; Start 09/19/17 at 10:15; Stop 09/19/17 at 10:18; Status DC Lorazepam (Ativan) 4 mg 1X ONCE IV ; Start 09/19/17 at 10:30; Stop 09/19/17 at 10:31; Status DC Vancomycin HCl (Vanco Per Pharmacy) 1 each PRN DAILY PRN MC SEE COMMENTS Last administered on 09/23/17 12:36; Start 09/19/17 at 10:30; Stop 09/24/17 at 08 :36; Status DC Piperacillin Sod/ Tazobactam Sod (Zosyn Per Pharmacy) 1 each PRN DAILY PRN MC SEE COMMENTS; Start 09/19/17 at 10:30; Stop 09/24/17 at 08:41; Status DC Vancomycin HCl 2 gm/Dextrose 500 ml @ 250 mls/hr 1X ONCE IV Last administered on 09/19/17 14:53; Start 09/19/17 at 11:00; Stop 09/19/17 at 12 :59; Status DC Piperacillin Sod/ Tazobactam Sod (Zosyn) 3.375 gm Q6HRS IVP Last administered on 09/30/17 05:47; Start 09/19/17 at 11:00 Budesonide (Pulmicort) 0.5 mg RTBID NEB Last administered on 09/30/17 08:11; Start 09/19/17 at 20:00 Budesonide (Pulmicort) 0.5 mg 1X ONCE NEB Last administered on 09/19/17 12: 50; Start 09/19/17 at 10:45; Stop 09/19/17 at 10:46; Status DC Pantoprazole Sodium (Protonix Vial) 40 mg DAILYAC IVP Last administered on t 10:00; Start 09/19/17 at 11:30 Furosemide (Lasix) 40 mg DAILY IVP ; Start 09/19/17 at 11:00; Stop 09/20/17 at 13:20; Status DC Methylprednisolone Sodium Succinate (SOLU-Medrol 125MG VIAL) 125 mg 1X ONCE IV Last administered on 09/19/17t 13:23; Start 09/19/17 at 10:45; Stop at 10:46; Status DC Prednisone (Prednisone) 40 mg DAILY PO ; Start 09/19/17 at 11:00; Stop at 09:02; Status DC Methylprednisolone Sodium Succinate (SOLU-Medrol 125MG VIAL) 125 mg Q8HRS IV Last administered on 09/23/17t 05:43; Start 09/19/17 at 14:00; Stop 09/23/17 at 10:40; Status DC Midazolam HCl 100 ml @ 0 mls/hr CONT PRN IV SEE I/O RECORD; Start 09/19/17 at 11:00; Stop 09/19/17 at 12:51; Status DC Midazolam HCl (Versed) 5 mg 1X ONCE IV ; Start 09/19/17 at 11:00; Stop at 11:01; Status DC Fentanyl Citrate (Fentanyl 2ml Vial) 50 mcg 1X ONCE IV ; Start 09/19/17 at 11: 00; Stop 09/19/17 at 11:01; Status DC Midazolam HCl 100 ml @ As Directed STK-MED ONCE IV ; Start 09/19/17 at 10:55; Stop 09/19/17 at 10:56; Status DC Midazolam HCl (Versed) 5 mg STK-MED ONCE .ROUTE ; Start 09/19/17 at 10:55; Stop 09/19/17 at 10:56; Status DC Propofol 100 ml @ As Directed STK-MED ONCE IV ; Start 09/19/17 at 10:59; Stop 09/19/17 at 11:00; Status DC Norepinephrine Bitartrate 250 ml @ As Directed STK-MED ONCE IV ; Start at 10:59; Stop 09/19/17 at 11:00; Status DC Furosemide (Lasix) 20 mg 1X ONCE IVP ; Start 09/19/17 at 11:15; Stop at 11:16; Status DC Vecuronium [place] (Norcuron Bolus) 10 mg STK-MED ONCE IV ; Start 09/19/17 at 11:21; Stop 09/19/17 at 11:22; Status DC Fentanyl Citrate 30 ml @ 0 mls/hr CONT PRN IV PROTOCOL Last administered on 15:08; Start 09/19/17 at 11:30; Stop 09/23/17 at 15:24; Status DC Vecuronium [place] (Norcuron Bolus) 6 mg 1X ONCE IV Last administered on 09/19 11:42; Start 09/19/17 at 11:30; Stop 09/19/17 at 11:39; Status DC Propofol 10 ml @ 0 mls/hr 1X ONCE IV Last administered on 09/19/17 11:30; Start 09/19/17 at 11:30; Stop 09/19/17 at 11:39; Status DC Midazolam HCl 100 ml @ 0 mls/hr CONT PRN IV SEE I/O RECORD Last administered on 09/27/17 00:40; Start 09/19/17 at 11:30; Stop 09/30/17 at 09:21; Status DC Norepinephrine Bitartrate 250 ml @ 0 mls/hr CONT PRN IV SEE I/O RECORD Last administered on 09/24/17 05:18; Start 09/19/17 at 11:30; Stop 09/30/17 at 09 :21; Status DC Succinylcholine Chloride (Anectine) 100 mg 1X ONCE IV Last administered on 11:42; Start 09/19/17 at 11:30; Stop 09/19/17 at 11:39; Status DC Sodium Bicarbonate 50 meq 1X ONCE IV Last administered on 09/19/17 13:23; Start 09/19/17 at 12:45; Stop 09/19/17 at 12:46; Status DC Sodium Bicarbonate 50 meq 1X ONCE IV Last administered on 09/19/17 13:23; Start 09/19/17 at 12:45; Stop 09/19/17 at 12:46; Status DC Lidocaine/Sodium Bicarbonate (Buffered Lidocaine 1%) 20 ml STK-MED ONCE IJ ; Start 09/19/17 at 13:34; Stop 09/19/17 at 13:35; Status DC Vecuronium [place] (Norcuron Bolus) 10 mg 1X ONCE IV Last administered on 15:05; Start 09/19/17 at 14:00; Stop 09/19/17 at 14:02; Status DC Lidocaine/Sodium Bicarbonate (Buffered Lidocaine 1%) 3 ml 1X ONCE IJ ; Start 09/19/17 at 14:45; Stop 09/19/17 at 14:46; Status DC Vancomycin HCl 1.25 gm/Dextrose 250 ml @ 166.667 mls/hr Q24H IV Last administered on 09/23/17 17:19; Start 09/20/17 at 15:00; Stop 09/24/17 at 08 :35; Status DC Vancomycin HCl 1 each 1X ONCE MC Last administered on 09/21/17 14:30; Start 09/21/17 at 14:30; Stop 09/21/17 at 14:31; Status DC Azithromycin 500 mg/Sodium Chloride 250 ml @ 250 mls/hr Q24H IV Last administered on 09/23/17 17:19; Start 09/19/17 at 16:30; Stop 09/24/17 at 08 :35; Status DC Norepinephrine Bitartrate (Levophed 8mg/ 250ml Premix Drip) 8 mg STK-MED ONCE IV ; Start 09/19/17 at 11:00; Stop 09/20/17 at 08:44; Status DC Midazolam HCl (Versed) 5 mg STK-MED ONCE .ROUTE ; Start 09/19/17 at 11:00; Stop 09/20/17 at 08:44; Status DC Amino Acids/ Glycerin/ Electrolytes 1,000 ml @ 80 mls/hr [id number] IV Last administered on 09/21/17 01:21; Start 09/20/17 at 10:00; Stop 09/22/17 at 07 :02; Status DC Info 1 each PRN DAILY PRN MC SEE COMMENTS; Start 09/20/17 at 10:00; Stop at 12:14; Status DC Furosemide (Lasix) 20 mg 1X ONCE IVP Last administered on 09/20/17 10:21; Start 09/20/17 at 10:15; Stop 09/20/17 at 10:18; Status DC Info 1 each PRN DAILY PRN MC SEE COMMENTS; Start 09/20/17 at 11:00; Status UNV Vecuronium [place] (Norcuron Bolus) 10 mg 1X ONCE IV Last administered on 12:03; Start 09/20/17 at 11:15; Stop 09/20/17 at 11:24; Status DC Atropine Sulfate 0.5 mg STK-MED ONCE .ROUTE ; Start 09/20/17 at 11:47; Stop at 11:48; Status DC Epinephrine HCl (EPINEPHrine SYRINGE) 1 mg STK-MED ONCE .ROUTE ; Start at 11:47; Stop 09/20/17 at 11:48; Status DC Atropine Sulfate 0.5 mg STK-MED ONCE .ROUTE ; Start 09/20/17 at 12:00; Stop at 09:11; Status DC Epinephrine HCl (EPINEPHrine SYRINGE) 1 mg STK-MED ONCE .ROUTE ; Start at 12:00; Stop 09/21/17 at 09:11; Status DC Furosemide (Lasix) 20 mg DAILY IVP ; Start 09/21/17 at 11:15; Stop 09/21/17 at 11:20; Status DC Lorazepam (Ativan) 1 mg PRN Q1HR PRN IV ANXIETY / AGITATION Last administered on 09/28/17 17:04; Start 09/21/17 at 11:15; Stop 09/30/17 at 09:21; Status DC Albumin Human 250 ml @ 62.5 mls/hr 1X ONCE IV Last administered on 11:57; Start 09/21/17 at 11:30; Stop 09/21/17 at 15:29; Status DC Albumin Human 250 ml @ 62.5 mls/hr 1X ONCE IV Last administered on 14:29; Start 09/21/17 at 11:30; Stop 09/21/17 at 15:29; Status DC Micafungin Sodium 100 mg/Dextrose 100 ml @ 100 mls/hr Q24H IV Last administered on 09/23/17 13:17; Start 09/21/17 at 12:00; Stop 09/24/17 at 08 :35; Status DC Vecuronium [place] (Norcuron Bolus) 4 mg PRN Q4HRS PRN IV AGITATION; Start at 15:00; Stop 09/30/17 at 09:21; Status DC Dexmedetomidine HCl 200 mcg/ Sodium Chloride 50 ml @ 0 mls/hr CONT PRN IV PER PROTOCOL Last administered on 09/21/17 15:54; Start 09/21/17 at 15:30; Stop 09/30/17 at 09:21; Status DC Sodium Chloride 500 ml @ 500 mls/hr 1X PRN PRN IV SEE COMMENTS; Start at 15:30 Atropine Sulfate 0.5 mg PRN Q5MIN PRN IV SEE COMMENTS; Start 09/21/17 at 15:30 Propofol 100 ml @ 0 mls/hr CONT PRN IV PER PROTOCOL Last administered on 14:35; Start 09/21/17 at 16:45; Stop 09/30/17 at 09:21; Status DC Furosemide (Lasix) 20 mg 1X ONCE IVP Last administered on 09/22/17 09:41; Start 09/22/17 at 10:15; Stop 09/22/17 at 10:16; Status DC Chlorhexidine Gluconate (Peridex) 15 ml BID MM Last administered on 09/29/17 08:07; Start 09/22/17 at 21:00; Stop 09/29/17 at 20:22; Status DC Furosemide (Lasix) 20 mg 1X ONCE IVP Last administered on 09/22/17 17:55; Start 09/22/17 at 18:00; Stop 09/22/17 at 18:01; Status DC Furosemide (Lasix) 20 mg DAILY IVP Last administered on 09/23/17 13:16; Start 09/23/17 at 11:30; Stop 09/24/17 at 08:40; Status DC Methylprednisolone Sodium Succinate (SOLU-Medrol 125MG VIAL) 80 mg Q8HRS IV Last administered on 09/30/17 05:47; Start 09/23/17 at 14:00; Stop 09/30/17 at 09:26; Status DC Fentanyl Citrate 55 ml @ 0 mls/hr CONT PRN PRN IV PER PROTOCOL Last administered on 09/28/17 19:13; Start 09/23/17 at 12:15; Stop 09/30/17 at 09 :21; Status DC Dextrose 1,000 ml @ 25 mls/hr Q24H IV Last administered on 09/28/17 12:59; Start 09/23/17 at 11:45 Enoxaparin Sodium (Lovenox Per Pharmacy Prophylaxis Dosing) 1 each PRN DAILY PRN MC SEE COMMENTS; Start 09/23/17 at 16:30; Stop 09/24/17 at 08:41; Status DC Enoxaparin Sodium (Lovenox 40mg Syringe) 40 mg Q24H SQ Last administered on 18:39; Start 09/23/17 at 17:00 Bisacodyl (Dulcolax Tab) 5 mg PRN DAILY PRN PO CONSTIPATION; Start 09/24/17 at 09:30 Insulin Aspart (NovoLOG) 0-5 UNITS Q6HRS SQ Last administered on 09/29/17 12: 27; Start 09/25/17 at 18:00 Dextrose (Dextrose 50%-Water Syringe) 12.5 gm PRN Q15MIN PRN IV SEE COMMENTS; Start 09/25/17 at 12:30 Dextrose/Sodium Chloride 1,000 ml @ 75 mls/hr [id number] IV Last administered on 09/30/17 06:15; Start 09/29/17 at 19:00 Ondansetron HCl (Zofran) 4 mg PRN Q6HRS PRN IV NAUSEA/VOMITING Last administered on 09/30/17 04:05; Start 09/29/17 at 20:00 Albuterol/ Ipratropium (Duoneb) 3 ml TID NEB ; Start 09/30/17 at 14:00 Methylprednisolone Sodium Succinate (SOLU-Medrol 125MG VIAL) 80 mg Q12HR IV ; Start 09/30/17 at 21:00 Active Scripts Active Reported Gabapentin 300 Mg Capsule 300 Mg PO TID Cymbalta (Duloxetine Hcl) 60 Mg Capsule. 1 Cap PO BID Hydrochlorothiazide Tablet (Hydrochlorothiazide) 25 Mg Tablet 1 Tab PO DAILY Xanax (Alprazolam) 1 Mg Tablet 1 Tab PO TID PRN Vitals/I & O Vital Sign - Last 24 Hours 11/25/17 11/25/17 11/25/17 11/25/17 13:45 14:00 15:00 15:23 Pulse 65 65 Resp 23 23 B/P (MAP) 118/82 (94) 97/60 (72) Pulse Ox 100 100 100 100 O2 Delivery Ventilator Ventilator Ventilator Ventilator 09/29/17 09/29/17 09/29/17 09/29/17 15:50 16:00 16:00 16:52 Pulse 96 Resp 24 B/P (MAP) 134/86 (102) Pulse Ox 100 100 98 O2 Delivery T-Tube Ventilator Mechanical Ventilator Nasal Cannula O2 Flow Rate 10.0 5.0 09/29/17 09/29/17 09/29/17 09/29/17 17:00 17:53 18:00 19:00 Temp 98.1 98.1 Pulse 100 94 99 Resp 24 22 24 B/P (MAP) 145/88 (107) 133/85 (101) 127/75 (92) Pulse Ox 99 98 99 O2 Delivery Nasal Cannula Nasal Cannula Nasal Cannula Nasal Cannula O2 Flow Rate 2.0 2.0 5.0 2.0 09/29/17 09/29/17 09/29/17 09/29/17 20:00 20:00 20:15 21:00 Temp 98.3 98.3 Pulse 100 91 Resp 15 21 B/P (MAP) 137/86 (103) 145/88 (107) Pulse Ox 100 99 99 O2 Delivery Nasal Cannula Nasal Cannula Nasal Cannula Nasal Cannula O2 Flow Rate 2.0 2.0 3.0 2.0 09/29/17 09/29/17 09/29/17 09/29/17 22:00 23:00 23:36 23:39 Pulse 89 90 Resp 24 16 B/P (MAP) 139/82 (101) 132/81 (98) Pulse Ox 97 96 99 96 O2 Delivery Room Air Room Air Nasal Cannula Room Air O2 Flow Rate 3.0 09/30/17 09/30/17 09/30/17 09/30/17 00:00 00:00 01:00 02:00 Temp 98.4 98.4 Pulse 89 91 87 Resp 21 22 22 B/P (MAP) 136/86 (103) 131/87 (102) 156/87 (110) Pulse Ox 96 94 94 O2 Delivery Room Air Room Air Room Air Room Air 09/30/17 09/30/17 09/30/17 09/30/17 03:00 04:00 04:00 04:05 Temp 98.5 98.5 Pulse 79 82 Resp 25 B/P (MAP) 137/79 (98) 128/82 (97) Pulse Ox 99 97 97 O2 Delivery Room Air Room Air Room Air Room Air 09/30/17 09/30/17 09/30/17 09/30/17 05:00 06:00 07:00 08:00 Temp 97.3 97.3 Pulse 86 82 81 82 Resp 22 B/P (MAP) 127/77 (94) 120/80 (93) 122/78 (93) 128/81 (97) Pulse Ox 98 98 95 97 O2 Delivery Room Air Room Air Room Air Room Air 09/30/17 09/30/17 09/30/17 09/30/17 08:00 08:11 09:00 10:00 Pulse 83 84 Resp B/P (MAP) 136/70 (92) 125/78 (94) Pulse Ox 98 96 94 O2 Delivery Room Air Room Air Room Air Room Air 09/30/17 09/30/17 09/30/17 11:00 12:00 12:00 Temp 98.1 98.1 Pulse 85 86 Resp 16 20 B/P (MAP) 122/77 (92) 145/87 (106) Pulse Ox 98 98 O2 Delivery Room Air Room Air Room Air Intake and Output 09/29/17 09/29/17 09/30/17 15:00 23:00 07:00 Intake Total 0 ml 1098 ml 1119 ml Output Total 400 ml 430 ml 500 ml Balance -400 ml 668 ml 619 ml DENILSON KRISHNAMURTHY III DO Sep 30, 2017 13:52
[2017-09-30] MEDS: ENOXAPARIN 40 MG/0.4 ML SYRINGE. SQ SCH (17:48)
[2017-10-01] VITALS (11 sets, daily range): BP systolic 130–147; BP diastolic 80–88
[2017-10-01] MEDS: INSULIN ASPART 300 UNITS/3 ML INSULN.PEN SQ SCH
[2017-10-01] MEDS: PIPERACILLIN/TAZO IV Push 3.375 GM VIAL. IVP SCH ×4 (00:21→17:56)
[2017-10-01] MEDS: ONDANSETRON PF 4 MG/2 ML VIAL. IV PRN ×2 (03:39→20:33)
[2017-10-01] MEDS: IV DEXTROSE 5 %-0.45 % NACL 1,000 ML IV SCH (03:39)
[2017-10-01 04:13] LABS: BASO # 0.1 x10^3/uL (0.0-0.2); BASO % 1 % (0-3); EOS % 0 % (0-3); HEMATOCRIT 24.1 % (36.0-47.0); HEMOGLOBIN 7.5 g/dL (12.0-15.5); LYMPH # 0.4 x10^3/uL (1.0-4.8); LYMPH % 3 % (24-48); MEAN CORPUSCULAR HEMOGLOBIN 26 pg (25-35); MEAN CORPUSCULAR HGB CONC 31 g/dL (31-37); MEAN CORPUSCULAR VOLUME 85 fL (79-100); MONO % 4 % (0-9); NEUT % 93 % (31-73); PLATELET COUNT 338 x10^3/uL (140-400); RED BLOOD COUNT 2.85 x10^6/uL (3.50-5.40); RED CELL DISTRIBUTION WIDTH 29.3 % (11.5-14.5); WHITE BLOOD COUNT 14.6 x10^3/uL (4.0-11.0)
[2017-10-01 04:47] LABS: CALCIUM 7.8 mg/dL (8.5-10.1); CREATININE 0.9 mg/dL (0.6-1.0); GFR 63.9; POTASSIUM 4.2 mmol/L (3.5-5.1)
[2017-10-01] MEDS: IPRATRPIUM/ALBUTEROL 0.5/2.5MG 3 ML NEBU. NEB SCH ×3 (08:11→19:58)
[2017-10-01] MEDS: BUDESONIDE 0.5 MG/2 ML NEBU. NEB SCH ×2 (08:11→19:58)
--- NOTE | 2017-10-01 08:39 | RAD ---
Chest x-ray Indication: Respiratory failure Technique: Portable AP upright chest x-ray Comparison: Study from 09/30/2017 Findings: Stable position of right-sided PICC line. Heart is mildly enlarged in size. Lungs demonstrate better aeration when compared to previous study. No pneumothorax or pleural effusion. Visualized bony thorax within normal limits. Impression: Improving bilateral lung disease.
--- NOTE | 2017-10-01 08:40 | PDOC ---
PROGRESS NOTES Subjective Subjective HPI - f/u of Iron deficiency anemia. ROS - had black stools, confused Objective Objective Vital Signs Date Time Temp Pulse Resp B/P (MAP) Pulse Ox O2 Delivery O2 Flow Rate FiO2 10/01/17 08:11 94 Room Air 10/01/17 07:00 98.2 86 20 147/84 (105) 98.2 09/30/17 20:00 2.0 Intake and Output 10/01/17 07:00 Intake Total 220 ml Output Total 1210 ml Balance -990 ml Intake Oral 220 ml Output Urine Total 1210 ml # Bowel Movements 4 Physical Exam Heart: Normal S1, Normal S2 General: Alert Lungs: Clear to auscultation Assessment Assessment Problems Medical Problems: (1) Dyspnea Status: Acute (2) Hypoalbuminemia Status: Acute (3) Metabolic acidosis Status: Acute (4) Pneumonia Status: Acute IMPRESSION AND PLAN: 1. Iron deficiency anemia. There is no evidence of blood loss. She received Venofer 500 mg intravenous on 09/18/2017. I will continue to monitor hemoglobin and transfuse as needed. Hemoglobin improved to 7.7 after transfusion. Then worse at 6.6 on 09/19/17. s/p 1 unit 09/19/17. Hb worse at 7.5 on 10/01/17 She had black stools, GI following. Plan second dose of venofer 500 mg IV 10/01/17. 2. Leukocytosis, reactive from underlying pneumonia. Management per Pulmonary Medicine. WBC 14.6 3. Pneumonia/dyspnea - Improved. Comment Review of Relevant I have reviewed the following items tha (where applicable) has been applied. Labs Laboratory Tests Test 09/29/17 12:24 09/29/17 16:20 09/29/17 18:36 09/30/17 00:12 Glucose (Fingerstick) 162 mg/dL (70-99) 115 mg/dL (70-99) 110 mg/dL (70-99) O2 Saturation 97 % (92-99) Arterial Blood pH 7.43 (7.35-7.45) Arterial Blood pCO2 at Patient Temp 34 mmHg (35-46) Arterial Blood pO2 at Patient Temp 95 mmHg (65-108) Arterial Blood HCO3 22 mmol/L (21-28) Arterial Blood Base Excess -2 mmol/L (-3-3) FiO2 40 t-tube Test 09/30/17 05:39 09/30/17 06:00 09/30/17 14:30 10/01/17 03:45 Glucose (Fingerstick) 98 mg/dL (70-99) 99 mg/dL (70-99) White Blood Count 15.7 x10^3/uL (4.0-11.0) 14.6 x10^3/uL (4.0-11.0) Red Blood Count 3.75 x10^6/uL (3.50-5.40) 2.85 x10^6/uL (3.50-5.40) Hemoglobin 9.6 g/dL (12.0-15.5) 7.5 g/dL (12.0-15.5) Hematocrit 31.4 % (36.0-47.0) 24.1 % (36.0-47.0) Mean Corpuscular Volume 84 fL (79-100) 85 fL (79-100) Mean Corpuscular Hemoglobin 26 pg (25-35) 26 pg (25-35) Mean Corpuscular Hemoglobin Concent 31 g/dL (31-37) 31 g/dL (31-37) Red Cell Distribution Width 29.5 % (11.5-14.5) 29.3 % (11.5-14.5) Platelet Count 340 x10^3/uL (140-400) 338 x10^3/uL (140-400) Neutrophils (%) (Auto) 91 % (31-73) 93 % (31-73) Lymphocytes (%) (Auto) 4 % (24-48) 3 % (24-48) Monocytes (%) (Auto) 5 % (0-9) 4 % (0-9) Eosinophils (%) (Auto) 0 % (0-3) 0 % (0-3) Basophils (%) (Auto) 0 % (0-3) 1 % (0-3) Neutrophils # (Auto) 14.3 x10^3uL (1.8-7.7) 13.5 x10^3uL (1.8-7.7) Lymphocytes # (Auto) 0.6 x10^3/uL (1.0-4.8) 0.4 x10^3/uL (1.0-4.8) Monocytes # (Auto) 0.8 x10^3/uL (0.0-1.1) 0.6 x10^3/uL (0.0-1.1) Eosinophils # (Auto) 0.0 x10^3/uL (0.0-0.7) 0.0 x10^3/uL (0.0-0.7) Basophils # (Auto) 0.0 x10^3/uL (0.0-0.2) 0.1 x10^3/uL (0.0-0.2) Sodium Level 143 mmol/L (136-145) 145 mmol/L (136-145) Potassium Level 4.3 mmol/L (3.5-5.1) 4.2 mmol/L (3.5-5.1) Chloride Level 111 mmol/L (98-107) 114 mmol/L (98-107) Carbon Dioxide Level 26 mmol/L (21-32) 23 mmol/L (21-32) Anion Gap 6 (6-14) 8 (6-14) Blood Urea Nitrogen 48 mg/dL (7-20) 53 mg/dL (7-20) Creatinine 0.8 mg/dL (0.6-1.0) 0.9 mg/dL (0.6-1.0) Estimated GFR (Cockcroft-Gault) 73.2 63.9 Glucose Level 106 mg/dL (70-99) 135 mg/dL (70-99) Calcium Level 8.3 mg/dL (8.5-10.1) 7.8 mg/dL (8.5-10.1) Test 10/01/17 08:25 Glucose (Fingerstick) 128 mg/dL (70-99) Laboratory Tests Test 09/30/17 14:30 10/01/17 03:45 10/01/17 08:25 Glucose (Fingerstick) 99 mg/dL (70-99) 128 mg/dL (70-99) White Blood Count 14.6 x10^3/uL (4.0-11.0) Red Blood Count 2.85 x10^6/uL (3.50-5.40) Hemoglobin 7.5 g/dL (12.0-15.5) Hematocrit 24.1 % (36.0-47.0) Mean Corpuscular Volume 85 fL (79-100) Mean Corpuscular Hemoglobin 26 pg (25-35) Mean Corpuscular Hemoglobin Concent 31 g/dL (31-37) Red Cell Distribution Width 29.3 % (11.5-14.5) Platelet Count 338 x10^3/uL (140-400) Neutrophils (%) (Auto) 93 % (31-73) Lymphocytes (%) (Auto) 3 % (24-48) Monocytes (%) (Auto) 4 % (0-9) Eosinophils (%) (Auto) 0 % (0-3) Basophils (%) (Auto) 1 % (0-3) Neutrophils # (Auto) 13.5 x10^3uL (1.8-7.7) Lymphocytes # (Auto) 0.4 x10^3/uL (1.0-4.8) Monocytes # (Auto) 0.6 x10^3/uL (0.0-1.1) Eosinophils # (Auto) 0.0 x10^3/uL (0.0-0.7) Basophils # (Auto) 0.1 x10^3/uL (0.0-0.2) Sodium Level 145 mmol/L (136-145) Potassium Level 4.2 mmol/L (3.5-5.1) Chloride Level 114 mmol/L (98-107) Carbon Dioxide Level 23 mmol/L (21-32) Anion Gap 8 (6-14) Blood Urea Nitrogen 53 mg/dL (7-20) Creatinine 0.9 mg/dL (0.6-1.0) Estimated GFR (Cockcroft-Gault) 63.9 Glucose Level 135 mg/dL (70-99) Calcium Level 7.8 mg/dL (8.5-10.1) Microbiology 09/17/17 Blood Culture - Final, Complete NO GROWTH AFTER 5 DAYS 09/20/17 AFB Specimen Processing Tissue - Final, Resulted 09/20/17 Acid Fast Bacilli Culture, Resulted Pending 09/20/17 Gram Stain - Final, Resulted 09/20/17 Fungal Culture - Preliminary, Resulted 09/20/17 Fungal Culture Result 1 - Preliminary, Resulted Medications Current Medications Sodium Chloride 1,000 ml @ 125 mls/hr 1X ONCE IV Last administered on t 15:54; Start 09/17/17 at 15:15; Stop 09/17/17 at 23:14; Status DC Ondansetron HCl (Zofran) 4 mg PRN Q8HRS PRN IV NAUSEA/VOMITING; Start at 16:30; Stop 09/18/17 at 16:29; Status DC Ceftriaxone Sodium 50 ml @ 0 mls/hr 1X ONCE IV Last administered on 17:33; Start 09/17/17 at 16:45; Stop 09/17/17 at 16:46; Status DC Azithromycin 250 ml @ 250 mls/hr 1X ONCE IV Last administered on 09/17/17 22:38; Start 09/17/17 at 16:30; Stop 09/17/17 at 17:29; Status DC Albuterol/ Ipratropium (Duoneb) 3 ml 1X ONCE NEB Last administered on 17:00; Start 09/17/17 at 16:45; Stop 09/17/17 at 16:46; Status DC Potassium Chloride (Klor-Con) 40 meq 1X ONCE PO Last administered on 16:57; Start 09/17/17 at 16:45; Stop 09/17/17 at 16:46; Status DC Azithromycin (Zithromax) 250 mg DAILY PO Last administered on 09/18/17 10:25 ; Start 09/18/17 at 09:00; Stop 09/19/17 at 10:30; Status DC Ceftriaxone Sodium 1 gm/ Dextrose 50 ml @ 100 mls/hr Q24H IV ; Start 09/17/17 at 17:15; Status UNV Albuterol/ Ipratropium (Duoneb) 3 ml Q4HRS NEB Last administered on 09/30/17 08:11; Start 09/17/17 at 20:00; Stop 09/30/17 at 09:21; Status DC Ceftriaxone Sodium (Rocephin) 1 gm Q24H IVP Last administered on 09/18/17 17: 55; Start 09/18/17 at 16:00; Stop 09/19/17 at 10:30; Status DC Guaifenesin (Robitussin Dm) 10 ml PRN Q6HRS PRN PO COUGH; Start 09/17/17 at 17 :15; Stop 09/30/17 at 09:21; Status DC Sodium Chloride 1,000 ml @ 125 mls/hr 1X ONCE IV Last administered on 17:45; Start 09/17/17 at 17:15; Stop 09/17/17 at 22:12; Status DC Info (Do NOT chart on this placeholder) 1 each 1X ONCE MC ; Start 09/17/17 at 19:00; Stop 09/17/17 at 19:01; Status UNV Influenza Virus Vaccine Quadrival (Fluarix Quad 1928-0018 Syringe) 0.5 ml ONCE ONCE VAX IM ; Start 09/17/17 at 21:00; Stop 09/17/17 at 21:01; Status DC Sodium Chloride 1,000 ml @ 130 mls/hr 1X ONCE IV Last administered on 22:31; Start 09/17/17 at 22:30; Stop 09/18/17 at 06:11; Status DC Sodium Bicarbonate 50 meq 1X ONCE IV Last administered on 09/17/17 22:31; Start 09/17/17 at 22:30; Stop 09/17/17 at 22:31; Status DC Alprazolam (Xanax) 1 mg PRN TID PRN PO ANXIETY Last administered on 09/19/17 02:19; Start 09/17/17 at 22:30; Stop 09/30/17 at 09:21; Status DC Furosemide (Lasix) 20 mg 1X ONCE IVP Last administered on 09/18/17 06:24; Start 09/18/17 at 06:30; Stop 09/18/17 at 06:31; Status DC Potassium Chloride (Klor-Con) 40 meq 1X ONCE PO Last administered on 10:25; Start 09/18/17 at 09:00; Stop 09/18/17 at 09:01; Status DC Iron Sucrose 500 mg/Sodium Chloride 275 ml @ 78.571 mls/ hr 1X ONCE IV Last administered on 09/18/17 10:24; Start 09/18/17 at 09:00; Stop 09/18/17 at 12 :29; Status DC Furosemide (Lasix) 20 mg 1X ONCE IVP Last administered on 09/18/17 10:30; Start 09/18/17 at 10:00; Stop 09/18/17 at 10:22; Status DC Pantoprazole Sodium (Protonix) 40 mg DAILYAC PO Last administered on 10:47; Start 09/18/17 at 11:00; Stop 09/19/17 at 13:41; Status DC Furosemide (Lasix) 20 mg 1X ONCE IVP Last administered on 09/18/17 10:47; Start 09/18/17 at 10:45; Stop 09/18/17 at 10:46; Status DC Potassium Chloride (Klor-Con) 40 meq 1X ONCE PO ; Start 09/18/17 at 11:45; Stop 09/18/17 at 11:46; Status DC Oxycodone/ Acetaminophen (Percocet 5/325) 1 tab PRN Q6HRS PRN PO PAIN Last administered on 09/18/17 13:23; Start 09/18/17 at 12:15 Lorazepam (Ativan) 1 mg PRN Q4HRS PRN IV ANXIETY / AGITATION Last administered on 09/18/17 12:25; Start 09/18/17 at 12:15; Stop 09/18/17 at 13:34; Status DC Fentanyl Citrate (Fentanyl 2ml Vial) 50 mcg PRN Q2HR PRN IV PAIN Last administered on 09/19/17 04:09; Start 09/18/17 at 12:15; Stop 09/30/17 at 09 :21; Status DC Lorazepam (Ativan) 2 mg PRN Q4HRS PRN IV ANXIETY / AGITATION Last administered on 09/29/17 05:17; Start 09/18/17 at 13:30; Stop 09/30/17 at 09:21; Status DC Quetiapine Fumarate (SEROquel) 25 mg HS PO Last administered on 09/18/17 21: 03; Start 09/18/17 at 21:00; Stop 09/19/17 at 10:35; Status DC Haloperidol Lactate (Haldol) 5 mg PRN Q12HRS PRN IVP AGITATION; Start at 13:45 Lorazepam (Ativan) 1 mg PRN Q4HRS PRN IV ANXIETY / AGITATION; Start 09/19/17 at 10:15; Stop 09/19/17 at 10:18; Status DC Lorazepam (Ativan) 4 mg 1X ONCE IV ; Start 09/19/17 at 10:30; Stop 09/19/17 at 10:31; Status DC Vancomycin HCl (Vanco Per Pharmacy) 1 each PRN DAILY PRN MC SEE COMMENTS Last administered on 09/23/17 12:36; Start 09/19/17 at 10:30; Stop 09/24/17 at 08 :36; Status DC Piperacillin Sod/ Tazobactam Sod (Zosyn Per Pharmacy) 1 each PRN DAILY PRN MC SEE COMMENTS; Start 09/19/17 at 10:30; Stop 09/24/17 at 08:41; Status DC Vancomycin HCl 2 gm/Dextrose 500 ml @ 250 mls/hr 1X ONCE IV Last administered on 09/19/17 14:53; Start 09/19/17 at 11:00; Stop 09/19/17 at 12 :59; Status DC Piperacillin Sod/ Tazobactam Sod (Zosyn) 3.375 gm Q6HRS IVP Last administered on 10/01/17 06:35; Start 09/19/17 at 11:00 Budesonide (Pulmicort) 0.5 mg RTBID NEB Last administered on 10/01/17 08:11; Start 09/19/17 at 20:00 Budesonide (Pulmicort) 0.5 mg 1X ONCE NEB Last administered on 09/19/17 12: 50; Start 09/19/17 at 10:45; Stop 09/19/17 at 10:46; Status DC Pantoprazole Sodium (Protonix Vial) 40 mg DAILYAC IVP Last administered on 10:00; Start 09/19/17 at 11:30 Furosemide (Lasix) 40 mg DAILY IVP ; Start 09/19/17 at 11:00; Stop 09/20/17 at 13:20; Status DC Methylprednisolone Sodium Succinate (SOLU-Medrol 125MG VIAL) 125 mg 1X ONCE IV Last administered on 09/19/17 13:23; Start 09/19/17 at 10:45; Stop at 10:46; Status DC Prednisone (Prednisone) 40 mg DAILY PO ; Start 09/19/17 at 11:00; Stop at 09:02; Status DC Methylprednisolone Sodium Succinate (SOLU-Medrol 125MG VIAL) 125 mg Q8HRS IV Last administered on 11/19/17at 05:43; Start 09/19/17 at 14:00; Stop 09/23/17 at 10:40; Status DC Midazolam HCl 100 ml @ 0 mls/hr CONT PRN IV SEE I/O RECORD; Start 09/19/17 at 11:00; Stop 09/19/17 at 12:51; Status DC Midazolam HCl (Versed) 5 mg 1X ONCE IV ; Start 09/19/17 at 11:00; Stop at 11:01; Status DC Fentanyl Citrate (Fentanyl 2ml Vial) 50 mcg 1X ONCE IV ; Start 09/19/17 at 11: 00; Stop 09/19/17 at 11:01; Status DC Midazolam HCl 100 ml @ As Directed STK-MED ONCE IV ; Start 09/19/17 at 10:55; Stop 09/19/17 at 10:56; Status DC Midazolam HCl (Versed) 5 mg STK-MED ONCE .ROUTE ; Start 09/19/17 at 10:55; Stop 09/19/17 at 10:56; Status DC Propofol 100 ml @ As Directed STK-MED ONCE IV ; Start 09/19/17 at 10:59; Stop 09/19/17 at 11:00; Status DC Norepinephrine Bitartrate 250 ml @ As Directed STK-MED ONCE IV ; Start at 10:59; Stop 09/19/17 at 11:00; Status DC Furosemide (Lasix) 20 mg 1X ONCE IVP ; Start 09/19/17 at 11:15; Stop at 11:16; Status DC Vecuronium [place] (Norcuron Bolus) 10 mg STK-MED ONCE IV ; Start 09/19/17 at 11:21; Stop 09/19/17 at 11:22; Status DC Fentanyl Citrate 30 ml @ 0 mls/hr CONT PRN IV PROTOCOL Last administered on 15:08; Start 09/19/17 at 11:30; Stop 09/23/17 at 15:24; Status DC Vecuronium [place] (Norcuron Bolus) 6 mg 1X ONCE IV Last administered on 09/19t 11:42; Start 09/19/17 at 11:30; Stop 09/19/17 at 11:39; Status DC Propofol 10 ml @ 0 mls/hr 1X ONCE IV Last administered on 09/19/17 11:30; Start 09/19/17 at 11:30; Stop 09/19/17 at 11:39; Status DC Midazolam HCl 100 ml @ 0 mls/hr CONT PRN IV SEE I/O RECORD Last administered on 09/27/17 00:40; Start 09/19/17 at 11:30; Stop 09/30/17 at 09:21; Status DC Norepinephrine Bitartrate 250 ml @ 0 mls/hr CONT PRN IV SEE I/O RECORD Last administered on 09/24/17 05:18; Start 09/19/17 at 11:30; Stop 09/30/17 at 09 :21; Status DC Succinylcholine Chloride (Anectine) 100 mg 1X ONCE IV Last administered on 11:42; Start 09/19/17 at 11:30; Stop 09/19/17 at 11:39; Status DC Sodium Bicarbonate 50 meq 1X ONCE IV Last administered on 09/19/17 13:23; Start 09/19/17 at 12:45; Stop 09/19/17 at 12:46; Status DC Sodium Bicarbonate 50 meq 1X ONCE IV Last administered on 09/19/17 13:23; Start 09/19/17 at 12:45; Stop 09/19/17 at 12:46; Status DC Lidocaine/Sodium Bicarbonate (Buffered Lidocaine 1%) 20 ml STK-MED ONCE IJ ; Start 09/19/17 at 13:34; Stop 09/19/17 at 13:35; Status DC Vecuronium [place] (Norcuron Bolus) 10 mg 1X ONCE IV Last administered on 15:05; Start 09/19/17 at 14:00; Stop 09/19/17 at 14:02; Status DC Lidocaine/Sodium Bicarbonate (Buffered Lidocaine 1%) 3 ml 1X ONCE IJ ; Start 09/19/17 at 14:45; Stop 09/19/17 at 14:46; Status DC Vancomycin HCl 1.25 gm/Dextrose 250 ml @ 166.667 mls/hr Q24H IV Last administered on 09/23/17 17:19; Start 09/20/17 at 15:00; Stop 09/24/17 at 08 :35; Status DC Vancomycin HCl 1 each 1X ONCE MC Last administered on 09/21/17 14:30; Start 09/21/17 at 14:30; Stop 09/21/17 at 14:31; Status DC Azithromycin 500 mg/Sodium Chloride 250 ml @ 250 mls/hr Q24H IV Last administered on 09/23/17 17:19; Start 09/19/17 at 16:30; Stop 09/24/17 at 08 :35; Status DC Norepinephrine Bitartrate (Levophed 8mg/ 250ml Premix Drip) 8 mg STK-MED ONCE IV ; Start 09/19/17 at 11:00; Stop 09/20/17 at 08:44; Status DC Midazolam HCl (Versed) 5 mg STK-MED ONCE .ROUTE ; Start 09/19/17 at 11:00; Stop 09/20/17 at 08:44; Status DC Amino Acids/ Glycerin/ Electrolytes 1,000 ml @ 80 mls/hr [id number] IV Last administered on 09/21/17 01:21; Start 09/20/17 at 10:00; Stop 09/22/17 at 07 :02; Status DC Info 1 each PRN DAILY PRN MC SEE COMMENTS; Start 09/20/17 at 10:00; Stop at 12:14; Status DC Furosemide (Lasix) 20 mg 1X ONCE IVP Last administered on 09/20/17 10:21; Start 09/20/17 at 10:15; Stop 09/20/17 at 10:18; Status DC Info 1 each PRN DAILY PRN MC SEE COMMENTS; Start 09/20/17 at 11:00; Status UNV Vecuronium [place] (Norcuron Bolus) 10 mg 1X ONCE IV Last administered on 12:03; Start 09/20/17 at 11:15; Stop 09/20/17 at 11:24; Status DC Atropine Sulfate 0.5 mg STK-MED ONCE .ROUTE ; Start 09/20/17 at 11:47; Stop at 11:48; Status DC Epinephrine HCl (EPINEPHrine SYRINGE) 1 mg STK-MED ONCE .ROUTE ; Start at 11:47; Stop 09/20/17 at 11:48; Status DC Atropine Sulfate 0.5 mg STK-MED ONCE .ROUTE ; Start 09/20/17 at 12:00; Stop at 09:11; Status DC Epinephrine HCl (EPINEPHrine SYRINGE) 1 mg STK-MED ONCE .ROUTE ; Start at 12:00; Stop 09/21/17 at 09:11; Status DC Furosemide (Lasix) 20 mg DAILY IVP ; Start 09/21/17 at 11:15; Stop 09/21/17 at 11:20; Status DC Lorazepam (Ativan) 1 mg PRN Q1HR PRN IV ANXIETY / AGITATION Last administered on 09/28/17 17:04; Start 09/21/17 at 11:15; Stop 09/30/17 at 09:21; Status DC Albumin Human 250 ml @ 62.5 mls/hr 1X ONCE IV Last administered on 11:57; Start 09/21/17 at 11:30; Stop 09/21/17 at 15:29; Status DC Albumin Human 250 ml @ 62.5 mls/hr 1X ONCE IV Last administered on 14:29; Start 09/21/17 at 11:30; Stop 09/21/17 at 15:29; Status DC Micafungin Sodium 100 mg/Dextrose 100 ml @ 100 mls/hr Q24H IV Last administered on 09/23/17 13:17; Start 09/21/17 at 12:00; Stop 09/24/17 at 08 :35; Status DC Vecuronium [place] (Norcuron Bolus) 4 mg PRN Q4HRS PRN IV AGITATION; Start at 15:00; Stop 09/30/17 at 09:21; Status DC Dexmedetomidine HCl 200 mcg/ Sodium Chloride 50 ml @ 0 mls/hr CONT PRN IV PER PROTOCOL Last administered on 09/21/17 15:54; Start 09/21/17 at 15:30; Stop 09/30/17 at 09:21; Status DC Sodium Chloride 500 ml @ 500 mls/hr 1X PRN PRN IV SEE COMMENTS; Start at 15:30 Atropine Sulfate 0.5 mg PRN Q5MIN PRN IV SEE COMMENTS; Start 09/21/17 at 15:30 Propofol 100 ml @ 0 mls/hr CONT PRN IV PER PROTOCOL Last administered on 14:35; Start 09/21/17 at 16:45; Stop 09/30/17 at 09:21; Status DC Furosemide (Lasix) 20 mg 1X ONCE IVP Last administered on 09/22/17 09:41; Start 09/22/17 at 10:15; Stop 09/22/17 at 10:16; Status DC Chlorhexidine Gluconate (Peridex) 15 ml BID MM Last administered on 09/29/17 08:07; Start 09/22/17 at 21:00; Stop 09/29/17 at 20:22; Status DC Furosemide (Lasix) 20 mg 1X ONCE IVP Last administered on 09/22/17 17:55; Start 09/22/17 at 18:00; Stop 09/22/17 at 18:01; Status DC Furosemide (Lasix) 20 mg DAILY IVP Last administered on 09/23/17 13:16; Start 09/23/17 at 11:30; Stop 09/24/17 at 08:40; Status DC Methylprednisolone Sodium Succinate (SOLU-Medrol 125MG VIAL) 80 mg Q8HRS IV Last administered on 09/30/17 05:47; Start 09/23/17 at 14:00; Stop 09/30/17 at 09:26; Status DC Fentanyl Citrate 55 ml @ 0 mls/hr CONT PRN PRN IV PER PROTOCOL Last administered on 09/28/17 19:13; Start 09/23/17 at 12:15; Stop 09/30/17 at 09 :21; Status DC Dextrose 1,000 ml @ 25 mls/hr Q24H IV Last administered on 09/28/17 12:59; Start 09/23/17 at 11:45 Enoxaparin Sodium (Lovenox Per Pharmacy Prophylaxis Dosing) 1 each PRN DAILY PRN MC SEE COMMENTS; Start 09/23/17 at 16:30; Stop 09/24/17 at 08:41; Status DC Enoxaparin Sodium (Lovenox 40mg Syringe) 40 mg Q24H SQ Last administered on 17:48; Start 09/23/17 at 17:00 Bisacodyl (Dulcolax Tab) 5 mg PRN DAILY PRN PO CONSTIPATION; Start 09/24/17 at 09:30 Insulin Aspart (NovoLOG) 0-5 UNITS Q6HRS SQ Last administered on 09/29/17 12: 27; Start 09/25/17 at 18:00; Stop 10/01/17 at 02:54; Status DC Dextrose (Dextrose 50%-Water Syringe) 12.5 gm PRN Q15MIN PRN IV SEE COMMENTS; Start 09/25/17 at 12:30; Stop 10/01/17 at 02:54; Status DC Dextrose/Sodium Chloride 1,000 ml @ 75 mls/hr [id number] IV Last administered on 10/01/17 03:39; Start 09/29/17 at 19:00 Ondansetron HCl (Zofran) 4 mg PRN Q6HRS PRN IV NAUSEA/VOMITING Last administered on 10/01/17 03:39; Start 09/29/17 at 20:00 Albuterol/ Ipratropium (Duoneb) 3 ml TID NEB Last administered on 10/01/17 08 :11; Start 09/30/17 at 14:00 Methylprednisolone Sodium Succinate (SOLU-Medrol 125MG VIAL) 80 mg Q12HR IV Last administered on 09/30/17 20:36; Start 09/30/17 at 21:00 Active Scripts Active Reported Gabapentin 300 Mg Capsule 300 Mg PO TID Cymbalta (Duloxetine Hcl) 60 Mg Capsule. 1 Cap PO BID Hydrochlorothiazide Tablet (Hydrochlorothiazide) 25 Mg Tablet 1 Tab PO DAILY Xanax (Alprazolam) 1 Mg Tablet 1 Tab PO TID PRN Vitals/I & O Vital Sign - Last 24 Hours 09/30/17 09/30/17 09/30/17 09/30/17 09:00 10:00 11:00 12:00 Temp 98.1 98.1 Pulse 83 84 85 86 Resp 25 27 16 20 B/P (MAP) 136/70 (92) 125/78 (94) 122/77 (92) 145/87 (106) Pulse Ox 96 94 98 98 O2 Delivery Room Air Room Air Room Air Room Air 09/30/17 09/30/17 09/30/17 09/30/17 12:00 14:45 15:00 19:00 Temp 98.0 97.9 98.0 97.9 Pulse 80 86 Resp 20 19 B/P (MAP) 118/72 (87) 126/81 (96) Pulse Ox 98 95 93 O2 Delivery Room Air Room Air Room Air Room Air 09/30/17 09/30/17 10/01/17 10/01/17 20:00 23:00 03:54 07:00 Temp 98.9 98.8 98.2 98.9 98.8 98.2 Pulse 77 80 86 Resp 20 18 20 B/P (MAP) 137/83 (101) 139/85 (103) 147/84 (105) Pulse Ox 93 97 92 O2 Delivery Nasal Cannula Room Air Room Air Room Air O2 Flow Rate 2.0 10/01/17 08:11 Pulse Ox 94 O2 Delivery Room Air Intake and Output 09/30/17 09/30/17 10/01/17 15:00 23:00 07:00 Intake Total 50 ml 170 ml Output Total 360 ml 850 ml Balance -360 ml -800 ml 170 ml ELLA ORTEGA MD Oct 01, 2017 08:40
[2017-10-01] MEDS: methylPREDNISolone SOD SUCC PF 125 MG/2 ML VIAL. IV SCH (08:56)
[2017-10-01] MEDS: PANTOPRAZOLE IV PUSH 40 MG VIAL. IVP SCH (08:57)
[2017-10-01] MEDS ORDERED: IRON SUCROSE COMPLEX 500 MG in IV NORMAL SALINE 250ML 250 ML IV ONE (09:30)
--- NOTE | 2017-10-01 10:20 | PDOC ---
PROGRESS NOTES Chief Complaint Chief Complaint Acute hypoxic respiratory failure consistent with ARDS Pneumonia post ICU, encephalopathy, acute Hypotension COPD Sepsis, severe, improving Leukocytosis - on steroids now and S/p PRBCs Anemia, acute on chronic Transaminitis - GEO improved Tobaccoism Anxiety d/o H/o Leg wounds History of Present Illness History of Present Illness transfer out of ICU yesterday confused, but cooperative and pleasant pt c/o of dryness and thirst Extubated 09/30/2017 her , Kurt has been here every day, all day when I see her plan to DC to [facility] for rehab Vitals Vitals Vital Signs Date Time Temp Pulse Resp B/P (MAP) Pulse Ox O2 Delivery O2 Flow Rate FiO2 10/01/17 08:11 94 Room Air 10/01/17 07:00 98.2 86 20 147/84 (105) 98.2 09/30/17 20:00 2.0 Physical Exam General: Alert, Cooperative, Other (disoriented) Heart: Normal S1, Normal S2 Lungs: Clear, Other (no wheezes or crackles ) Abdomen: Normal bowel sounds, Soft Extremities: No clubbing, No cyanosis, Normal pulses, Other (1+ edema) Skin: No rashes, No significant lesion Labs LABS Laboratory Tests Test 09/30/17 14:30 10/01/17 03:45 10/01/17 08:25 Glucose (Fingerstick) 99 mg/dL (70-99) 128 mg/dL (70-99) White Blood Count 14.6 x10^3/uL (4.0-11.0) Red Blood Count 2.85 x10^6/uL (3.50-5.40) Hemoglobin 7.5 g/dL (12.0-15.5) Hematocrit 24.1 % (36.0-47.0) Mean Corpuscular Volume 85 fL (79-100) Mean Corpuscular Hemoglobin 26 pg (25-35) Mean Corpuscular Hemoglobin Concent 31 g/dL (31-37) Red Cell Distribution Width 29.3 % (11.5-14.5) Platelet Count 338 x10^3/uL (140-400) Neutrophils (%) (Auto) 93 % (31-73) Lymphocytes (%) (Auto) 3 % (24-48) Monocytes (%) (Auto) 4 % (0-9) Eosinophils (%) (Auto) 0 % (0-3) Basophils (%) (Auto) 1 % (0-3) Neutrophils # (Auto) 13.5 x10^3uL (1.8-7.7) Lymphocytes # (Auto) 0.4 x10^3/uL (1.0-4.8) Monocytes # (Auto) 0.6 x10^3/uL (0.0-1.1) Eosinophils # (Auto) 0.0 x10^3/uL (0.0-0.7) Basophils # (Auto) 0.1 x10^3/uL (0.0-0.2) Sodium Level 145 mmol/L (136-145) Potassium Level 4.2 mmol/L (3.5-5.1) Chloride Level 114 mmol/L (98-107) Carbon Dioxide Level 23 mmol/L (21-32) Anion Gap 8 (6-14) Blood Urea Nitrogen 53 mg/dL (7-20) Creatinine 0.9 mg/dL (0.6-1.0) Estimated GFR (Cockcroft-Gault) 63.9 Glucose Level 135 mg/dL (70-99) Calcium Level 7.8 mg/dL (8.5-10.1) Assessment and Plan Assessmemt and Plan Problems Medical Problems: (1) Dyspnea Status: Acute (2) Hypoalbuminemia Status: Acute (3) Metabolic acidosis Status: Acute (4) Pneumonia Status: Acute Problems: Comment Review of Relevant I have reviewed the following items tha (where applicable) has been applied. Labs Laboratory Tests Test 09/29/17 12:24 09/29/17 16:20 09/29/17 18:36 09/30/17 00:12 Glucose (Fingerstick) 162 mg/dL (70-99) 115 mg/dL (70-99) 110 mg/dL (70-99) O2 Saturation 97 % (92-99) Arterial Blood pH 7.43 (7.35-7.45) Arterial Blood pCO2 at Patient Temp 34 mmHg (35-46) Arterial Blood pO2 at Patient Temp 95 mmHg (65-108) Arterial Blood HCO3 22 mmol/L (21-28) Arterial Blood Base Excess -2 mmol/L (-3-3) FiO2 40 t-tube Test 09/30/17 05:39 09/30/17 06:00 09/30/17 14:30 10/01/17 03:45 Glucose (Fingerstick) 98 mg/dL (70-99) 99 mg/dL (70-99) White Blood Count 15.7 x10^3/uL (4.0-11.0) 14.6 x10^3/uL (4.0-11.0) Red Blood Count 3.75 x10^6/uL (3.50-5.40) 2.85 x10^6/uL (3.50-5.40) Hemoglobin 9.6 g/dL (12.0-15.5) 7.5 g/dL (12.0-15.5) Hematocrit 31.4 % (36.0-47.0) 24.1 % (36.0-47.0) Mean Corpuscular Volume 84 fL (79-100) 85 fL (79-100) Mean Corpuscular Hemoglobin 26 pg (25-35) 26 pg (25-35) Mean Corpuscular Hemoglobin Concent 31 g/dL (31-37) 31 g/dL (31-37) Red Cell Distribution Width 29.5 % (11.5-14.5) 29.3 % (11.5-14.5) Platelet Count 340 x10^3/uL (140-400) 338 x10^3/uL (140-400) Neutrophils (%) (Auto) 91 % (31-73) 93 % (31-73) Lymphocytes (%) (Auto) 4 % (24-48) 3 % (24-48) Monocytes (%) (Auto) 5 % (0-9) 4 % (0-9) Eosinophils (%) (Auto) 0 % (0-3) 0 % (0-3) Basophils (%) (Auto) 0 % (0-3) 1 % (0-3) Neutrophils # (Auto) 14.3 x10^3uL (1.8-7.7) 13.5 x10^3uL (1.8-7.7) Lymphocytes # (Auto) 0.6 x10^3/uL (1.0-4.8) 0.4 x10^3/uL (1.0-4.8) Monocytes # (Auto) 0.8 x10^3/uL (0.0-1.1) 0.6 x10^3/uL (0.0-1.1) Eosinophils # (Auto) 0.0 x10^3/uL (0.0-0.7) 0.0 x10^3/uL (0.0-0.7) Basophils # (Auto) 0.0 x10^3/uL (0.0-0.2) 0.1 x10^3/uL (0.0-0.2) Sodium Level 143 mmol/L (136-145) 145 mmol/L (136-145) Potassium Level 4.3 mmol/L (3.5-5.1) 4.2 mmol/L (3.5-5.1) Chloride Level 111 mmol/L (98-107) 114 mmol/L (98-107) Carbon Dioxide Level 26 mmol/L (21-32) 23 mmol/L (21-32) Anion Gap 6 (6-14) 8 (6-14) Blood Urea Nitrogen 48 mg/dL (7-20) 53 mg/dL (7-20) Creatinine 0.8 mg/dL (0.6-1.0) 0.9 mg/dL (0.6-1.0) Estimated GFR (Cockcroft-Gault) 73.2 63.9 Glucose Level 106 mg/dL (70-99) 135 mg/dL (70-99) Calcium Level 8.3 mg/dL (8.5-10.1) 7.8 mg/dL (8.5-10.1) Test 10/01/17 08:25 Glucose (Fingerstick) 128 mg/dL (70-99) Laboratory Tests Test 09/30/17 14:30 10/01/17 03:45 10/01/17 08:25 Glucose (Fingerstick) 99 mg/dL (70-99) 128 mg/dL (70-99) White Blood Count 14.6 x10^3/uL (4.0-11.0) Red Blood Count 2.85 x10^6/uL (3.50-5.40) Hemoglobin 7.5 g/dL (12.0-15.5) Hematocrit 24.1 % (36.0-47.0) Mean Corpuscular Volume 85 fL (79-100) Mean Corpuscular Hemoglobin 26 pg (25-35) Mean Corpuscular Hemoglobin Concent 31 g/dL (31-37) Red Cell Distribution Width 29.3 % (11.5-14.5) Platelet Count 338 x10^3/uL (140-400) Neutrophils (%) (Auto) 93 % (31-73) Lymphocytes (%) (Auto) 3 % (24-48) Monocytes (%) (Auto) 4 % (0-9) Eosinophils (%) (Auto) 0 % (0-3) Basophils (%) (Auto) 1 % (0-3) Neutrophils # (Auto) 13.5 x10^3uL (1.8-7.7) Lymphocytes # (Auto) 0.4 x10^3/uL (1.0-4.8) Monocytes # (Auto) 0.6 x10^3/uL (0.0-1.1) Eosinophils # (Auto) 0.0 x10^3/uL (0.0-0.7) Basophils # (Auto) 0.1 x10^3/uL (0.0-0.2) Sodium Level 145 mmol/L (136-145) Potassium Level 4.2 mmol/L (3.5-5.1) Chloride Level 114 mmol/L (98-107) Carbon Dioxide Level 23 mmol/L (21-32) Anion Gap 8 (6-14) Blood Urea Nitrogen 53 mg/dL (7-20) Creatinine 0.9 mg/dL (0.6-1.0) Estimated GFR (Cockcroft-Gault) 63.9 Glucose Level 135 mg/dL (70-99) Calcium Level 7.8 mg/dL (8.5-10.1) Microbiology 09/17/17 Blood Culture - Final, Complete NO GROWTH AFTER 5 DAYS 09/20/17 AFB Specimen Processing Tissue - Final, Resulted 09/20/17 Acid Fast Bacilli Culture, Resulted Pending 09/20/17 Gram Stain - Final, Resulted 09/20/17 Fungal Culture - Preliminary, Resulted 09/20/17 Fungal Culture Result 1 - Preliminary, Resulted Medications Current Medications Sodium Chloride 1,000 ml @ 125 mls/hr 1X ONCE IV Last administered on t 15:54; Start 09/17/17 at 15:15; Stop 09/17/17 at 23:14; Status DC Ondansetron HCl (Zofran) 4 mg PRN Q8HRS PRN IV NAUSEA/VOMITING; Start at 16:30; Stop 09/18/17 at 16:29; Status DC Ceftriaxone Sodium 50 ml @ 0 mls/hr 1X ONCE IV Last administered on 17:33; Start 09/17/17 at 16:45; Stop 09/17/17 at 16:46; Status DC Azithromycin 250 ml @ 250 mls/hr 1X ONCE IV Last administered on 09/17/17 22:38; Start 09/17/17 at 16:30; Stop 09/17/17 at 17:29; Status DC Albuterol/ Ipratropium (Duoneb) 3 ml 1X ONCE NEB Last administered on 17:00; Start 09/17/17 at 16:45; Stop 09/17/17 at 16:46; Status DC Potassium Chloride (Klor-Con) 40 meq 1X ONCE PO Last administered on 16:57; Start 09/17/17 at 16:45; Stop 09/17/17 at 16:46; Status DC Azithromycin (Zithromax) 250 mg DAILY PO Last administered on 09/18/17 10:25 ; Start 09/18/17 at 09:00; Stop 09/19/17 at 10:30; Status DC Ceftriaxone Sodium 1 gm/ Dextrose 50 ml @ 100 mls/hr Q24H IV ; Start 09/17/17 at 17:15; Status UNV Albuterol/ Ipratropium (Duoneb) 3 ml Q4HRS NEB Last administered on 09/30/17 08:11; Start 09/17/17 at 20:00; Stop 09/30/17 at 09:21; Status DC Ceftriaxone Sodium (Rocephin) 1 gm Q24H IVP Last administered on 09/18/17 17: 55; Start 09/18/17 at 16:00; Stop 09/19/17 at 10:30; Status DC Guaifenesin (Robitussin Dm) 10 ml PRN Q6HRS PRN PO COUGH; Start 09/17/17 at 17 :15; Stop 09/30/17 at 09:21; Status DC Sodium Chloride 1,000 ml @ 125 mls/hr 1X ONCE IV Last administered on 17:45; Start 09/17/17 at 17:15; Stop 09/17/17 at 22:12; Status DC Info (Do NOT chart on this placeholder) 1 each 1X ONCE MC ; Start 09/17/17 at 19:00; Stop 09/17/17 at 19:01; Status UNV Influenza Virus Vaccine Quadrival (Fluarix Quad [id number] Syringe) 0.5 ml ONCE ONCE VAX IM ; Start 09/17/17 at 21:00; Stop 09/17/17 at 21:01; Status DC Sodium Chloride 1,000 ml @ 130 mls/hr 1X ONCE IV Last administered on 22:31; Start 09/17/17 at 22:30; Stop 09/18/17 at 06:11; Status DC Sodium Bicarbonate 50 meq 1X ONCE IV Last administered on 09/17/17 22:31; Start 09/17/17 at 22:30; Stop 09/17/17 at 22:31; Status DC Alprazolam (Xanax) 1 mg PRN TID PRN PO ANXIETY Last administered on 09/19/17 02:19; Start 09/17/17 at 22:30; Stop 09/30/17 at 09:21; Status DC Furosemide (Lasix) 20 mg 1X ONCE IVP Last administered on 09/18/17 06:24; Start 09/18/17 at 06:30; Stop 09/18/17 at 06:31; Status DC Potassium Chloride (Klor-Con) 40 meq 1X ONCE PO Last administered on 10:25; Start 09/18/17 at 09:00; Stop 09/18/17 at 09:01; Status DC Iron Sucrose 500 mg/Sodium Chloride 275 ml @ 78.571 mls/ hr 1X ONCE IV Last administered on 09/18/17 10:24; Start 09/18/17 at 09:00; Stop 09/18/17 at 12 :29; Status DC Furosemide (Lasix) 20 mg 1X ONCE IVP Last administered on 09/18/17 10:30; Start 09/18/17 at 10:00; Stop 09/18/17 at 10:22; Status DC Pantoprazole Sodium (Protonix) 40 mg DAILYAC PO Last administered on 10:47; Start 09/18/17 at 11:00; Stop 09/19/17 at 13:41; Status DC Furosemide (Lasix) 20 mg 1X ONCE IVP Last administered on 09/18/17 10:47; Start 09/18/17 at 10:45; Stop 09/18/17 at 10:46; Status DC Potassium Chloride (Klor-Con) 40 meq 1X ONCE PO ; Start 09/18/17 at 11:45; Stop 09/18/17 at 11:46; Status DC Oxycodone/ Acetaminophen (Percocet 5/325) 1 tab PRN Q6HRS PRN PO PAIN Last administered on 09/18/17 13:23; Start 09/18/17 at 12:15 Lorazepam (Ativan) 1 mg PRN Q4HRS PRN IV ANXIETY / AGITATION Last administered on 09/18/17 12:25; Start 09/18/17 at 12:15; Stop 09/18/17 at 13:34; Status DC Fentanyl Citrate (Fentanyl 2ml Vial) 50 mcg PRN Q2HR PRN IV PAIN Last administered on 09/19/17 04:09; Start 09/18/17 at 12:15; Stop 09/30/17 at 09 :21; Status DC Lorazepam (Ativan) 2 mg PRN Q4HRS PRN IV ANXIETY / AGITATION Last administered on 09/29/17 05:17; Start 09/18/17 at 13:30; Stop 09/30/17 at 09:21; Status DC Quetiapine Fumarate (SEROquel) 25 mg HS PO Last administered on 09/18/17 21: 03; Start 09/18/17 at 21:00; Stop 09/19/17 at 10:35; Status DC Haloperidol Lactate (Haldol) 5 mg PRN Q12HRS PRN IVP AGITATION; Start at 13:45 Lorazepam (Ativan) 1 mg PRN Q4HRS PRN IV ANXIETY / AGITATION; Start 09/19/17 at 10:15; Stop 09/19/17 at 10:18; Status DC Lorazepam (Ativan) 4 mg 1X ONCE IV ; Start 09/19/17 at 10:30; Stop 09/19/17 at 10:31; Status DC Vancomycin HCl (Vanco Per Pharmacy) 1 each PRN DAILY PRN MC SEE COMMENTS Last administered on 09/23/17 12:36; Start 09/19/17 at 10:30; Stop 09/24/17 at 08 :36; Status DC Piperacillin Sod/ Tazobactam Sod (Zosyn Per Pharmacy) 1 each PRN DAILY PRN MC SEE COMMENTS; Start 09/19/17 at 10:30; Stop 09/24/17 at 08:41; Status DC Vancomycin HCl 2 gm/Dextrose 500 ml @ 250 mls/hr 1X ONCE IV Last administered on 09/19/17 14:53; Start 09/19/17 at 11:00; Stop 09/19/17 at 12 :59; Status DC Piperacillin Sod/ Tazobactam Sod (Zosyn) 3.375 gm Q6HRS IVP Last administered on 10/01/17 06:35; Start 09/19/17 at 11:00 Budesonide (Pulmicort) 0.5 mg RTBID NEB Last administered on 10/01/17 08:11; Start 09/19/17 at 20:00 Budesonide (Pulmicort) 0.5 mg 1X ONCE NEB Last administered on 09/19/17 12: 50; Start 09/19/17 at 10:45; Stop 09/19/17 at 10:46; Status DC Pantoprazole Sodium (Protonix Vial) 40 mg DAILYAC IVP Last administered on 08:57; Start 09/19/17 at 11:30 Furosemide (Lasix) 40 mg DAILY IVP ; Start 09/19/17 at 11:00; Stop 09/20/17 at 13:20; Status DC Methylprednisolone Sodium Succinate (SOLU-Medrol 125MG VIAL) 125 mg 1X ONCE IV Last administered on 09/19/17 13:23; Start 09/19/17 at 10:45; Stop at 10:46; Status DC Prednisone (Prednisone) 40 mg DAILY PO ; Start 09/19/17 at 11:00; Stop at 09:02; Status DC Methylprednisolone Sodium Succinate (SOLU-Medrol 125MG VIAL) 125 mg Q8HRS IV Last administered on 09/23/17 05:43; Start 09/19/17 at 14:00; Stop 09/23/17 at 10:40; Status DC Midazolam HCl 100 ml @ 0 mls/hr CONT PRN IV SEE I/O RECORD; Start 09/19/17 at 11:00; Stop 09/19/17 at 12:51; Status DC Midazolam HCl (Versed) 5 mg 1X ONCE IV ; Start 09/19/17 at 11:00; Stop at 11:01; Status DC Fentanyl Citrate (Fentanyl 2ml Vial) 50 mcg 1X ONCE IV ; Start 09/19/17 at 11: 00; Stop 09/19/17 at 11:01; Status DC Midazolam HCl 100 ml @ As Directed STK-MED ONCE IV ; Start 09/19/17 at 10:55; Stop 09/19/17 at 10:56; Status DC Midazolam HCl (Versed) 5 mg STK-MED ONCE .ROUTE ; Start 09/19/17 at 10:55; Stop 09/19/17 at 10:56; Status DC Propofol 100 ml @ As Directed STK-MED ONCE IV ; Start 09/19/17 at 10:59; Stop 09/19/17 at 11:00; Status DC Norepinephrine Bitartrate 250 ml @ As Directed STK-MED ONCE IV ; Start at 10:59; Stop 09/19/17 at 11:00; Status DC Furosemide (Lasix) 20 mg 1X ONCE IVP ; Start 09/19/17 at 11:15; Stop at 11:16; Status DC Vecuronium Lawrence (Norcuron Bolus) 10 mg STK-MED ONCE IV ; Start 09/19/17 at 11:21; Stop 09/19/17 at 11:22; Status DC Fentanyl Citrate 30 ml @ 0 mls/hr CONT PRN IV PROTOCOL Last administered on 15:08; Start 09/19/17 at 11:30; Stop 09/23/17 at 15:24; Status DC Vecuronium Lawrence (Norcuron Bolus) 6 mg 1X ONCE IV Last administered on 09/19 11:42; Start 09/19/17 at 11:30; Stop 09/19/17 at 11:39; Status DC Propofol 10 ml @ 0 mls/hr 1X ONCE IV Last administered on 09/19/17 11:30; Start 09/19/17 at 11:30; Stop 09/19/17 at 11:39; Status DC Midazolam HCl 100 ml @ 0 mls/hr CONT PRN IV SEE I/O RECORD Last administered on 09/27/17 00:40; Start 09/19/17 at 11:30; Stop 09/30/17 at 09:21; Status DC Norepinephrine Bitartrate 250 ml @ 0 mls/hr CONT PRN IV SEE I/O RECORD Last administered on 09/24/17 05:18; Start 09/19/17 at 11:30; Stop 09/30/17 at 09 :21; Status DC Succinylcholine Chloride (Anectine) 100 mg 1X ONCE IV Last administered on 11:42; Start 09/19/17 at 11:30; Stop 09/19/17 at 11:39; Status DC Sodium Bicarbonate 50 meq 1X ONCE IV Last administered on 09/19/17 13:23; Start 09/19/17 at 12:45; Stop 09/19/17 at 12:46; Status DC Sodium Bicarbonate 50 meq 1X ONCE IV Last administered on 09/19/17 13:23; Start 09/19/17 at 12:45; Stop 09/19/17 at 12:46; Status DC Lidocaine/Sodium Bicarbonate (Buffered Lidocaine 1%) 20 ml STK-MED ONCE IJ ; Start 09/19/17 at 13:34; Stop 09/19/17 at 13:35; Status DC Vecuronium Lawrence (Norcuron Bolus) 10 mg 1X ONCE IV Last administered on 15:05; Start 09/19/17 at 14:00; Stop 09/19/17 at 14:02; Status DC Lidocaine/Sodium Bicarbonate (Buffered Lidocaine 1%) 3 ml 1X ONCE IJ ; Start 09/19/17 at 14:45; Stop 09/19/17 at 14:46; Status DC Vancomycin HCl 1.25 gm/Dextrose 250 ml @ 166.667 mls/hr Q24H IV Last administered on 09/23/17 17:19; Start 09/20/17 at 15:00; Stop 09/24/17 at 08 :35; Status DC Vancomycin HCl 1 each 1X ONCE MC Last administered on 09/21/17 14:30; Start 09/21/17 at 14:30; Stop 09/21/17 at 14:31; Status DC Azithromycin 500 mg/Sodium Chloride 250 ml @ 250 mls/hr Q24H IV Last administered on 09/23/17 17:19; Start 09/19/17 at 16:30; Stop 09/24/17 at 08 :35; Status DC Norepinephrine Bitartrate (Levophed 8mg/ 250ml Premix Drip) 8 mg STK-MED ONCE IV ; Start 09/19/17 at 11:00; Stop 09/20/17 at 08:44; Status DC Midazolam HCl (Versed) 5 mg STK-MED ONCE .ROUTE ; Start 09/19/17 at 11:00; Stop 09/20/17 at 08:44; Status DC Amino Acids/ Glycerin/ Electrolytes 1,000 ml @ 80 mls/hr [id number] IV Last administered on 09/21/17 01:21; Start 09/20/17 at 10:00; Stop 09/22/17 at 07 :02; Status DC Info 1 each PRN DAILY PRN MC SEE COMMENTS; Start 09/20/17 at 10:00; Stop at 12:14; Status DC Furosemide (Lasix) 20 mg 1X ONCE IVP Last administered on 09/20/17 10:21; Start 09/20/17 at 10:15; Stop 09/20/17 at 10:18; Status DC Info 1 each PRN DAILY PRN MC SEE COMMENTS; Start 09/20/17 at 11:00; Status UNV Vecuronium Lawrence (Norcuron Bolus) 10 mg 1X ONCE IV Last administered on 12:03; Start 09/20/17 at 11:15; Stop 09/20/17 at 11:24; Status DC Atropine Sulfate 0.5 mg STK-MED ONCE .ROUTE ; Start 09/20/17 at 11:47; Stop at 11:48; Status DC Epinephrine HCl (EPINEPHrine SYRINGE) 1 mg STK-MED ONCE .ROUTE ; Start at 11:47; Stop 09/20/17 at 11:48; Status DC Atropine Sulfate 0.5 mg STK-MED ONCE .ROUTE ; Start 09/20/17 at 12:00; Stop at 09:11; Status DC Epinephrine HCl (EPINEPHrine SYRINGE) 1 mg STK-MED ONCE .ROUTE ; Start at 12:00; Stop 09/21/17 at 09:11; Status DC Furosemide (Lasix) 20 mg DAILY IVP ; Start 09/21/17 at 11:15; Stop 09/21/17 at 11:20; Status DC Lorazepam (Ativan) 1 mg PRN Q1HR PRN IV ANXIETY / AGITATION Last administered on 09/28/17 17:04; Start 09/21/17 at 11:15; Stop 09/30/17 at 09:21; Status DC Albumin Human 250 ml @ 62.5 mls/hr 1X ONCE IV Last administered on 11:57; Start 09/21/17 at 11:30; Stop 09/21/17 at 15:29; Status DC Albumin Human 250 ml @ 62.5 mls/hr 1X ONCE IV Last administered on 14:29; Start 09/21/17 at 11:30; Stop 09/21/17 at 15:29; Status DC Micafungin Sodium 100 mg/Dextrose 100 ml @ 100 mls/hr Q24H IV Last administered on 09/23/17 13:17; Start 09/21/17 at 12:00; Stop 09/24/17 at 08 :35; Status DC Vecuronium Lawrence (Norcuron Bolus) 4 mg PRN Q4HRS PRN IV AGITATION; Start at 15:00; Stop 09/30/17 at 09:21; Status DC Dexmedetomidine HCl 200 mcg/ Sodium Chloride 50 ml @ 0 mls/hr CONT PRN IV PER PROTOCOL Last administered on 09/21/17 15:54; Start 09/21/17 at 15:30; Stop 09/30/17 at 09:21; Status DC Sodium Chloride 500 ml @ 500 mls/hr 1X PRN PRN IV SEE COMMENTS; Start at 15:30 Atropine Sulfate 0.5 mg PRN Q5MIN PRN IV SEE COMMENTS; Start 09/21/17 at 15:30 Propofol 100 ml @ 0 mls/hr CONT PRN IV PER PROTOCOL Last administered on 14:35; Start 09/21/17 at 16:45; Stop 09/30/17 at 09:21; Status DC Furosemide (Lasix) 20 mg 1X ONCE IVP Last administered on 09/22/17 09:41; Start 09/22/17 at 10:15; Stop 09/22/17 at 10:16; Status DC Chlorhexidine Gluconate (Peridex) 15 ml BID MM Last administered on 09/29/17 08:07; Start 09/22/17 at 21:00; Stop 09/29/17 at 20:22; Status DC Furosemide (Lasix) 20 mg 1X ONCE IVP Last administered on 09/22/17 17:55; Start 09/22/17 at 18:00; Stop 09/22/17 at 18:01; Status DC Furosemide (Lasix) 20 mg DAILY IVP Last administered on 09/23/17 13:16; Start 09/23/17 at 11:30; Stop 09/24/17 at 08:40; Status DC Methylprednisolone Sodium Succinate (SOLU-Medrol 125MG VIAL) 80 mg Q8HRS IV Last administered on 09/30/17 05:47; Start 09/23/17 at 14:00; Stop 09/30/17 at 09:26; Status DC Fentanyl Citrate 55 ml @ 0 mls/hr CONT PRN PRN IV PER PROTOCOL Last administered on 09/28/17 19:13; Start 09/23/17 at 12:15; Stop 09/30/17 at 09 :21; Status DC Dextrose 1,000 ml @ 25 mls/hr Q24H IV Last administered on 09/28/17 12:59; Start 09/23/17 at 11:45 Enoxaparin Sodium (Lovenox Per Pharmacy Prophylaxis Dosing) 1 each PRN DAILY PRN MC SEE COMMENTS; Start 09/23/17 at 16:30; Stop 09/24/17 at 08:41; Status DC Enoxaparin Sodium (Lovenox 40mg Syringe) 40 mg Q24H SQ Last administered on 17:48; Start 09/23/17 at 17:00 Bisacodyl (Dulcolax Tab) 5 mg PRN DAILY PRN PO CONSTIPATION; Start 09/24/17 at 09:30 Insulin Aspart (NovoLOG) 0-5 UNITS Q6HRS SQ Last administered on 09/29/17 12: 27; Start 09/25/17 at 18:00; Stop 10/01/17 at 02:54; Status DC Dextrose (Dextrose 50%-Water Syringe) 12.5 gm PRN Q15MIN PRN IV SEE COMMENTS; Start 09/25/17 at 12:30; Stop 10/01/17 at 02:54; Status DC Dextrose/Sodium Chloride 1,000 ml @ 75 mls/hr [id number] IV Last administered on 10/01/17 03:39; Start 09/29/17 at 19:00 Ondansetron HCl (Zofran) 4 mg PRN Q6HRS PRN IV NAUSEA/VOMITING Last administered on 10/01/17 03:39; Start 09/29/17 at 20:00 Albuterol/ Ipratropium (Duoneb) 3 ml TID NEB Last administered on 10/01/17 08 :11; Start 09/30/17 at 14:00 Methylprednisolone Sodium Succinate (SOLU-Medrol 125MG VIAL) 80 mg Q12HR IV Last administered on 10/01/17 08:56; Start 09/30/17 at 21:00 Iron Sucrose 500 mg/Sodium Chloride 275 ml @ 78.571 mls/ hr 1X ONCE IV Last administered on 10/01/17 10:08; Start 10/01/17 at 09:30; Stop 10/01/17 at 12 :59 Active Scripts Active Reported Gabapentin 300 Mg Capsule 300 Mg PO TID Cymbalta (Duloxetine Hcl) 60 Mg Capsule. 1 Cap PO BID Hydrochlorothiazide Tablet (Hydrochlorothiazide) 25 Mg Tablet 1 Tab PO DAILY Xanax (Alprazolam) 1 Mg Tablet 1 Tab PO TID PRN Vitals/I & O Vital Sign - Last 24 Hours 09/30/17 09/30/17 09/30/17 09/30/17 11:00 12:00 12:00 14:45 Temp 98.1 98.1 Pulse 85 86 Resp 16 20 B/P (MAP) 122/77 (92) 145/87 (106) Pulse Ox 98 98 98 O2 Delivery Room Air Room Air Room Air Room Air 09/30/17 09/30/17 09/30/17 09/30/17 15:00 19:00 20:00 23:00 Temp 98.0 97.9 98.9 98.0 97.9 98.9 Pulse 80 86 77 Resp 20 19 20 B/P (MAP) 118/72 (87) 126/81 (96) 137/83 (101) Pulse Ox 95 93 93 O2 Delivery Room Air Room Air Nasal Cannula Room Air O2 Flow Rate 2.0 10/01/17 10/01/17 10/01/17 03:54 07:00 08:11 Temp 98.8 98.2 98.8 98.2 Pulse 80 86 Resp 18 20 B/P (MAP) 139/85 (103) 147/84 (105) Pulse Ox 97 92 94 O2 Delivery Room Air Room Air Room Air Intake and Output 09/30/17 09/30/17 10/01/17 15:00 23:00 07:00 Intake Total 50 ml 170 ml Output Total 360 ml 850 ml Balance -360 ml -800 ml 170 ml ABELARDO MOORE MD Oct 01, 2017 10:20
[2017-10-01 10:45] LABS: PLT ESTIMATE ADEQUATE (ADEQUATE)
--- NOTE | 2017-10-01 11:04 | PDOC ---
Infectious Disease Note Subjective Subjective pt is alert but Confused No fever or diarrhea ROS ROS GEN: Denies fevers, chills, sweats HEENT: Denies blurred vision, sore throat CV: Denies chest pain RESP: Denies shortness of air, cough GI: Denies n/v/d : Denies hematuria, dysuria ENDO: Denies weight changes NEURO: Denies confusion, dizziness MSK: Denies weakness, joint pain/swelling SKIN: Denies rash, pruritus Vital Sign Vital Signs Vital Signs Date Time Temp Pulse Resp B/P (MAP) Pulse Ox O2 Delivery O2 Flow Rate FiO2 10/01/17 08:11 94 Room Air 10/01/17 07:00 98.2 86 20 147/84 (105) 98.2 09/30/17 20:00 2.0 Physical Exam PHYSICAL EXAM GENERAL: alert,awake, verbalizes but confused HEENT: anicteric LUNGS: Diminished aeration bases HEART: S1S2, regular ABD: Soft, BS active : Mayorga EXT: No edema, no cyanosis OCULARIST: ALert, pleasantly confused, follows commands SKIN: No rash RIJ. (09/20). clean Labs Lab Laboratory Tests Test 09/30/17 14:30 10/01/17 03:45 10/01/17 08:25 Glucose (Fingerstick) 99 mg/dL (70-99) 128 mg/dL (70-99) White Blood Count 14.6 x10^3/uL (4.0-11.0) Red Blood Count 2.85 x10^6/uL (3.50-5.40) Hemoglobin 7.5 g/dL (12.0-15.5) Hematocrit 24.1 % (36.0-47.0) Mean Corpuscular Volume 85 fL (79-100) Mean Corpuscular Hemoglobin 26 pg (25-35) Mean Corpuscular Hemoglobin Concent 31 g/dL (31-37) Red Cell Distribution Width 29.3 % (11.5-14.5) Platelet Count 338 x10^3/uL (140-400) Neutrophils (%) (Auto) 93 % (31-73) Lymphocytes (%) (Auto) 3 % (24-48) Monocytes (%) (Auto) 4 % (0-9) Eosinophils (%) (Auto) 0 % (0-3) Basophils (%) (Auto) 1 % (0-3) Neutrophils # (Auto) 13.5 x10^3uL (1.8-7.7) Lymphocytes # (Auto) 0.4 x10^3/uL (1.0-4.8) Monocytes # (Auto) 0.6 x10^3/uL (0.0-1.1) Eosinophils # (Auto) 0.0 x10^3/uL (0.0-0.7) Basophils # (Auto) 0.1 x10^3/uL (0.0-0.2) Segmented Neutrophils % 95 % (35-66) Band Neutrophils % 2 % (0-9) Lymphocytes % 1 % (24-48) Monocytes % 2 % (0-10) Platelet Estimate Adequate (ADEQUATE) Sodium Level 145 mmol/L (136-145) Potassium Level 4.2 mmol/L (3.5-5.1) Chloride Level 114 mmol/L (98-107) Carbon Dioxide Level 23 mmol/L (21-32) Anion Gap 8 (6-14) Blood Urea Nitrogen 53 mg/dL (7-20) Creatinine 0.9 mg/dL (0.6-1.0) Estimated GFR (Cockcroft-Gault) 63.9 Glucose Level 135 mg/dL (70-99) Calcium Level 7.8 mg/dL (8.5-10.1) Micro reviewed Objective Assessment Acute Resp failure - intubated Strep/Legionella antigens - neg. S/p Bronch 09/20 , no growth to date; now extubated Encephalopathy /Delirium Hypotension, now off Levophed Lactic normal/Procalcitonin mild - elevation Pulm infiltrates - ARDS stable Anemia - on arrival s/p PRBCs on iron Leukocytosis - on steroids now and S/p PRBCs GEO -stable Transaminitis - ? reactive COPD H/o Leg wounds - no recent abx per for wounds - last amox 6 weeks ago Influenza vaccine 09/17 - given C. diff neg, 09/28 Plan Plan of Care continue Zosyn, F/u Mycoplasma 09/20 pending elevated wbc likely sec to steroids cont supportive care d/w JAMIE RODRIGUEZ MD Oct 01, 2017 11:04
[2017-10-01 11:41] LABS: BASO % 0 % (0-3); EOS % 0 % (0-3); HEMATOCRIT 22.4 % (36.0-47.0); LYMPH # 0.3 x10^3/uL (1.0-4.8); LYMPH % 2 % (24-48); MEAN CORPUSCULAR HEMOGLOBIN 26 pg (25-35); MEAN CORPUSCULAR HGB CONC 31 g/dL (31-37); MEAN CORPUSCULAR VOLUME 84 fL (79-100); MONO % 4 % (0-9); NEUT % 93 % (31-73); PLATELET COUNT 335 x10^3/uL (140-400); RED BLOOD COUNT 2.66 x10^6/uL (3.50-5.40); RED CELL DISTRIBUTION WIDTH 29.8 % (11.5-14.5); WHITE BLOOD COUNT 13.9 x10^3/uL (4.0-11.0)
[2017-10-01] MEDS: IV DEXTROSE 5% 1,000 ML IV SCH (11:45)
--- NOTE | 2017-10-01 11:54 | PDOC ---
Objective: Objective: D/w RN - coffee-ground emesis overnight and this morning, dark stools yesterday. Receiving iron infusion, Dr. Conley ordering blood transfusion. Confused. On room air. Didn't want breakfast. Vital Signs: Vital Signs Date Time Temp Pulse Resp B/P (MAP) Pulse Ox O2 Delivery O2 Flow Rate FiO2 10/01/17 11:00 98.2 85 20 130/81 (97) 94 Room Air 98.2 10/01/17 08:00 2.0 Labs: Laboratory Tests Test 09/30/17 14:30 10/01/17 03:45 10/01/17 08:25 10/01/17 11:30 Glucose (Fingerstick) 99 mg/dL 128 mg/dL White Blood Count 14.6 x10^3/uL 13.9 x10^3/uL Red Blood Count 2.85 x10^6/uL 2.66 x10^6/uL Hemoglobin 7.5 g/dL 7.0 g/dL Hematocrit 24.1 % 22.4 % Mean Corpuscular Volume 85 fL 84 fL Mean Corpuscular Hemoglobin 26 pg 26 pg Mean Corpuscular Hemoglobin Concent 31 g/dL 31 g/dL Red Cell Distribution Width 29.3 % 29.8 % Platelet Count 338 x10^3/uL 335 x10^3/uL Neutrophils (%) (Auto) 93 % 93 % Lymphocytes (%) (Auto) 3 % 2 % Monocytes (%) (Auto) 4 % 4 % Eosinophils (%) (Auto) 0 % 0 % Basophils (%) (Auto) 1 % 0 % Neutrophils # (Auto) 13.5 x10^3uL 13.0 x10^3uL Lymphocytes # (Auto) 0.4 x10^3/uL 0.3 x10^3/uL Monocytes # (Auto) 0.6 x10^3/uL 0.6 x10^3/uL Eosinophils # (Auto) 0.0 x10^3/uL 0.0 x10^3/uL Basophils # (Auto) 0.1 x10^3/uL 0.0 x10^3/uL Segmented Neutrophils % 95 % Band Neutrophils % 2 % Lymphocytes % 1 % Monocytes % 2 % Platelet Estimate Adequate Sodium Level 145 mmol/L Potassium Level 4.2 mmol/L Chloride Level 114 mmol/L Carbon Dioxide Level 23 mmol/L Anion Gap 8 Blood Urea Nitrogen 53 mg/dL Creatinine 0.9 mg/dL Estimated GFR (Cockcroft-Gault) 63.9 Glucose Level 135 mg/dL Calcium Level 7.8 mg/dL Imaging: [employer] Bedside Swallow Eval Bedside swallow eval completed earlier this date. Pt's present during eval. Pt and state phonation quality is at baseline. Pt required cues to attend to task and was easily distracted throughout eval. IMPRESSIONS: Pt w/functional swallow across tested consistencies. No evidence of dysphagia or aspiration. Anticipate safe and efficient po intake to meet nutritional needs. RECOMMENDATIONS: Dysphagia III w/thin liquids. Results and recs d/w pt, and RN. Precautions as posted. Diet orders entered. Will f/u 1-2 visits to ensure safety on rec'd diet consistency. PE: GEN: NAD LUNGS: clear anteriorly HEART: RRR ABD: NABS, S/ND/NT NEURO/PSYCH: pleasantly confused A/P: STUART -Hgb worse w/ coffee-ground emesis, dark stools -colonoscopy last year ([place]) w/ polyp, remote h/o EGD -NSAID use prior to admission, on steroids here -remains on IV PPI, receiving IV iron Resp failure - extubated 09/29 -- Agree w/ transfusion, continue PPI. Keep NPO for now, will review w/ Dr. Baer. SHAHLA FISHER Oct 01, 2017 11:54
--- NOTE | 2017-10-01 13:05 | PDOC ---
PULMONARY PROGRESS NOTES Subjective EXTUBATED 09/29 HAS BEEN CONFUSED WEAK OFF 02 Vitals Vital Signs Date Time Temp Pulse Resp B/P (MAP) Pulse Ox O2 Delivery O2 Flow Rate FiO2 10/01/17 11:00 98.2 85 20 130/81 (97) 94 Room Air 98.2 10/01/17 08:00 2.0 General: Confused Lungs: Clear Cardiovascular: S1, S2 Abdomen: Soft Extremities: Other (WEAKNESS,1+EDEMA) Skin: Warm Labs Laboratory Tests Test 09/29/17 16:20 09/29/17 18:36 09/30/17 00:12 09/30/17 05:39 O2 Saturation 97 % (92-99) Arterial Blood pH 7.43 (7.35-7.45) Arterial Blood pCO2 at Patient Temp 34 mmHg (35-46) Arterial Blood pO2 at Patient Temp 95 mmHg (65-108) Arterial Blood HCO3 22 mmol/L (21-28) Arterial Blood Base Excess -2 mmol/L (-3-3) FiO2 40 t-tube Glucose (Fingerstick) 115 mg/dL (70-99) 110 mg/dL (70-99) 98 mg/dL (70-99) Test 09/30/17 06:00 09/30/17 14:30 10/01/17 03:45 10/01/17 08:25 White Blood Count 15.7 x10^3/uL (4.0-11.0) 14.6 x10^3/uL (4.0-11.0) Red Blood Count 3.75 x10^6/uL (3.50-5.40) 2.85 x10^6/uL (3.50-5.40) Hemoglobin 9.6 g/dL (12.0-15.5) 7.5 g/dL (12.0-15.5) Hematocrit 31.4 % (36.0-47.0) 24.1 % (36.0-47.0) Mean Corpuscular Volume 84 fL (79-100) 85 fL (79-100) Mean Corpuscular Hemoglobin 26 pg (25-35) 26 pg (25-35) Mean Corpuscular Hemoglobin Concent 31 g/dL (31-37) 31 g/dL (31-37) Red Cell Distribution Width 29.5 % (11.5-14.5) 29.3 % (11.5-14.5) Platelet Count 340 x10^3/uL (140-400) 338 x10^3/uL (140-400) Neutrophils (%) (Auto) 91 % (31-73) 93 % (31-73) Lymphocytes (%) (Auto) 4 % (24-48) 3 % (24-48) Monocytes (%) (Auto) 5 % (0-9) 4 % (0-9) Eosinophils (%) (Auto) 0 % (0-3) 0 % (0-3) Basophils (%) (Auto) 0 % (0-3) 1 % (0-3) Neutrophils # (Auto) 14.3 x10^3uL (1.8-7.7) 13.5 x10^3uL (1.8-7.7) Lymphocytes # (Auto) 0.6 x10^3/uL (1.0-4.8) 0.4 x10^3/uL (1.0-4.8) Monocytes # (Auto) 0.8 x10^3/uL (0.0-1.1) 0.6 x10^3/uL (0.0-1.1) Eosinophils # (Auto) 0.0 x10^3/uL (0.0-0.7) 0.0 x10^3/uL (0.0-0.7) Basophils # (Auto) 0.0 x10^3/uL (0.0-0.2) 0.1 x10^3/uL (0.0-0.2) Sodium Level 143 mmol/L (136-145) 145 mmol/L (136-145) Potassium Level 4.3 mmol/L (3.5-5.1) 4.2 mmol/L (3.5-5.1) Chloride Level 111 mmol/L (98-107) 114 mmol/L (98-107) Carbon Dioxide Level 26 mmol/L (21-32) 23 mmol/L (21-32) Anion Gap 6 (6-14) 8 (6-14) Blood Urea Nitrogen 48 mg/dL (7-20) 53 mg/dL (7-20) Creatinine 0.8 mg/dL (0.6-1.0) 0.9 mg/dL (0.6-1.0) Estimated GFR (Cockcroft-Gault) 73.2 63.9 Glucose Level 106 mg/dL (70-99) 135 mg/dL (70-99) Calcium Level 8.3 mg/dL (8.5-10.1) 7.8 mg/dL (8.5-10.1) Glucose (Fingerstick) 99 mg/dL (70-99) 128 mg/dL (70-99) Segmented Neutrophils % 95 % (35-66) Band Neutrophils % 2 % (0-9) Lymphocytes % 1 % (24-48) Monocytes % 2 % (0-10) Platelet Estimate Adequate (ADEQUATE) Test 10/01/17 11:30 10/01/17 11:44 White Blood Count 13.9 x10^3/uL (4.0-11.0) Red Blood Count 2.66 x10^6/uL (3.50-5.40) Hemoglobin 7.0 g/dL (12.0-15.5) Hematocrit 22.4 % (36.0-47.0) Mean Corpuscular Volume 84 fL (79-100) Mean Corpuscular Hemoglobin 26 pg (25-35) Mean Corpuscular Hemoglobin Concent 31 g/dL (31-37) Red Cell Distribution Width 29.8 % (11.5-14.5) Platelet Count 335 x10^3/uL (140-400) Neutrophils (%) (Auto) 93 % (31-73) Lymphocytes (%) (Auto) 2 % (24-48) Monocytes (%) (Auto) 4 % (0-9) Eosinophils (%) (Auto) 0 % (0-3) Basophils (%) (Auto) 0 % (0-3) Neutrophils # (Auto) 13.0 x10^3uL (1.8-7.7) Lymphocytes # (Auto) 0.3 x10^3/uL (1.0-4.8) Monocytes # (Auto) 0.6 x10^3/uL (0.0-1.1) Eosinophils # (Auto) 0.0 x10^3/uL (0.0-0.7) Basophils # (Auto) 0.0 x10^3/uL (0.0-0.2) Glucose (Fingerstick) 114 mg/dL (70-99) Laboratory Tests Test 09/30/17 14:30 10/01/17 03:45 10/01/17 08:25 10/01/17 11:30 Glucose (Fingerstick) 99 mg/dL (70-99) 128 mg/dL (70-99) White Blood Count 14.6 x10^3/uL (4.0-11.0) 13.9 x10^3/uL (4.0-11.0) Red Blood Count 2.85 x10^6/uL (3.50-5.40) 2.66 x10^6/uL (3.50-5.40) Hemoglobin 7.5 g/dL (12.0-15.5) 7.0 g/dL (12.0-15.5) Hematocrit 24.1 % (36.0-47.0) 22.4 % (36.0-47.0) Mean Corpuscular Volume 85 fL (79-100) 84 fL (79-100) Mean Corpuscular Hemoglobin 26 pg (25-35) 26 pg (25-35) Mean Corpuscular Hemoglobin Concent 31 g/dL (31-37) 31 g/dL (31-37) Red Cell Distribution Width 29.3 % (11.5-14.5) 29.8 % (11.5-14.5) Platelet Count 338 x10^3/uL (140-400) 335 x10^3/uL (140-400) Neutrophils (%) (Auto) 93 % (31-73) 93 % (31-73) Lymphocytes (%) (Auto) 3 % (24-48) 2 % (24-48) Monocytes (%) (Auto) 4 % (0-9) 4 % (0-9) Eosinophils (%) (Auto) 0 % (0-3) 0 % (0-3) Basophils (%) (Auto) 1 % (0-3) 0 % (0-3) Neutrophils # (Auto) 13.5 x10^3uL (1.8-7.7) 13.0 x10^3uL (1.8-7.7) Lymphocytes # (Auto) 0.4 x10^3/uL (1.0-4.8) 0.3 x10^3/uL (1.0-4.8) Monocytes # (Auto) 0.6 x10^3/uL (0.0-1.1) 0.6 x10^3/uL (0.0-1.1) Eosinophils # (Auto) 0.0 x10^3/uL (0.0-0.7) 0.0 x10^3/uL (0.0-0.7) Basophils # (Auto) 0.1 x10^3/uL (0.0-0.2) 0.0 x10^3/uL (0.0-0.2) Segmented Neutrophils % 95 % (35-66) Band Neutrophils % 2 % (0-9) Lymphocytes % 1 % (24-48) Monocytes % 2 % (0-10) Platelet Estimate Adequate (ADEQUATE) Sodium Level 145 mmol/L (136-145) Potassium Level 4.2 mmol/L (3.5-5.1) Chloride Level 114 mmol/L (98-107) Carbon Dioxide Level 23 mmol/L (21-32) Anion Gap 8 (6-14) Blood Urea Nitrogen 53 mg/dL (7-20) Creatinine 0.9 mg/dL (0.6-1.0) Estimated GFR (Cockcroft-Gault) 63.9 Glucose Level 135 mg/dL (70-99) Calcium Level 7.8 mg/dL (8.5-10.1) Test 10/01/17 11:44 Glucose (Fingerstick) 114 mg/dL (70-99) Medications Active Scripts Medications Dose Route/Sig Max Daily Dose Days Date Category Gabapentin 300 Mg Capsule 300 Mg PO TID 09/18/17 Reported Cymbalta (Duloxetine Hcl) 60 Mg Capsule.dr 1 Cap PO BID 09/18/17 Reported Hydrochlorothiazide Tablet (Hydrochlorothiazide) 25 Mg Tablet 1 Tab PO DAILY 09/17/17 Reported Xanax (Alprazolam) 1 Mg Tablet 1 Tab PO TID PRN 09/17/17 Reported Comments CXR 10/01 overall improving infiltrates Impression . 1. Acute hypoxic respiratory failure/ARDS/ S/P EXTUBATION, ON RA now 2. Anemia ongoing 3. COPD/ compensated 4. Acute renal failure, stable 5. Sepsis with hypotension POA, resolved 6. S/P Bronch so far BAL negative 7. Critical care induced myopathy 8. bilateral interstitial infiltrates , ? etiology, suspect viral, improved 9. medication induced delirium Plan . PRN OXYGEN DC DAILY CXR SPOKE WITH AT BEDSIDE SPEECH, PT DVT PROPH ALL CULTURES NEGATIVE ANCA NEGATIVE START DECREASING STEROIDS DC ANTIBIOTICS PER ID WILL NEED AGGRESSIVE REHAB JORGE LEDESMA MD Oct 01, 2017 13:05
[2017-10-01] MEDS: ENOXAPARIN 40 MG/0.4 ML SYRINGE. SQ SCH (17:00)
[2017-10-01] MEDS: QUEtiapine 25 MG TABLET. PO SCH (20:32)
[2017-10-01] MEDS ORDERED: methylPREDNISolone SOD SUCC PF 40 MG/ML VIAL. IV SCH ×2 (21:00)
[2017-10-01 22:00] LABS: HEMATOCRIT 26.1 % (36.0-47.0); HEMOGLOBIN 8.2 g/dL (12.0-15.5); RED BLOOD COUNT 3.06 x10^6/uL (3.50-5.40); RED CELL DISTRIBUTION WIDTH 25.1 % (11.5-14.5); WHITE BLOOD COUNT 15.6 x10^3/uL (4.0-11.0)
[2017-10-02] VITALS (10 sets, daily range): BP systolic 110–133; BP diastolic 62–79
[2017-10-02] MEDS: IV DEXTROSE 5 %-0.45 % NACL 1,000 ML IV SCH (01:23)
[2017-10-02] MEDS: PIPERACILLIN/TAZO IV Push 3.375 GM VIAL. IVP SCH ×4 (01:23→17:13)
--- NOTE | 2017-10-02 03:31 | CONS ---
DATE OF CONSULTATION: I saw her at the request of Dr. Conley on 10/01/2017. ATTENDING PHYSICIAN: Dr. Conley. HISTORY OF PRESENT ILLNESS: This is a 62-year-old right-handed female admitted on 09/17/2017 with worsening dyspnea with sputum production with associated shortness of breath and exertional intolerance going on for about 6 weeks prior to the hospitalization. She smokes. The patient was found with marked dyspnea, also was found with mild anemia. The patient with known chronic venous insufficiency, peripheral vascular disease, multiple surgeries on her leg veins. She smokes about a pack of cigarettes per day. Since admission, she was found with acute dyspnea, hypoalbuminemia, metabolic acidosis, pneumonia. The patient is not known allergic to any medication. Since admission, she had been treated for respiratory failure requiring intubation. She was extubated on 09/29/2017 with some confusion and generalized weakness. She is off oxygen. The patient denies any pain. The patient is being followed by physical therapy, occupational therapy and speech pathology. She received a blood transfusion today. PHYSICAL EXAMINATION: Today, revealed a middle-aged female. She is awake, does not open her eyes, follows commands. She had generalized muscle weakness and atrophy with associated edema of her extremities, more so of her lower extremities. She had significant weakness of all 4 extremity muscles, more so of distal extremity muscles with bilateral foot drop. She had equal perception of touch and pinprick sensation bilaterally. Deep tendon reflexes are decreased overall. The patient had pain free range of motion of all 4 extremity joints. She requires help with bed mobility. I have not tested her transfers or her ambulation skills at this time. ASSESSMENT: Deconditioned state with quadriparesis and clinical evidence of peripheral neuropathy, also associated critical illness myopathy in a patient with recent respiratory failure from pneumonia. The patient is a smoker, anemia. RECOMMENDATIONS: Agree with the plan for physical therapy, occupational therapy and speech pathology. I am not sure she can tolerate intensive rehab at present time. When medically stable, to consider group home care unit or long-term acute care unit transfer before moving to inpatient rehab when her physical endurance improves for her to participate 2-3 hours a day of intensive therapy. Dr. Conley, I appreciate asking me to participate in the care of this interesting patient. I will be glad to follow her with you as needed for her rehabilitation. YELITZA MARROQUIN MD DR: MARINE/tito JOB#: [id number] / [id number]
[2017-10-02 05:43] LABS: BASO % 0 % (0-3); EOS % 0 % (0-3); HEMOGLOBIN 7.6 g/dL (12.0-15.5); LYMPH # 0.6 x10^3/uL (1.0-4.8); LYMPH % 4 % (24-48); MEAN CORPUSCULAR HEMOGLOBIN 27 pg (25-35); MEAN CORPUSCULAR HGB CONC 32 g/dL (31-37); MEAN CORPUSCULAR VOLUME 85 fL (79-100); MONO % 7 % (0-9); NEUT % 89 % (31-73); PLATELET COUNT 320 x10^3/uL (140-400); RED BLOOD COUNT 2.83 x10^6/uL (3.50-5.40); RED CELL DISTRIBUTION WIDTH 26.1 % (11.5-14.5); WHITE BLOOD COUNT 14.1 x10^3/uL (4.0-11.0)
[2017-10-02 06:08] LABS: ALBUMIN/GLOBULIN RATIO 0.9 (1.0-1.7); CALCIUM 7.9 mg/dL (8.5-10.1); CREATININE 0.8 mg/dL (0.6-1.0); GFR 73.2; POTASSIUM 3.5 mmol/L (3.5-5.1); TOTAL BILIRUBIN 0.5 mg/dL (0.2-1.0); TOTAL PROTEIN 4.2 g/dL (6.4-8.2)
[2017-10-02] MEDS: PANTOPRAZOLE IV PUSH 40 MG VIAL. IVP SCH (07:55)
[2017-10-02] MEDS: BUDESONIDE 0.5 MG/2 ML NEBU. NEB SCH ×2 (08:38→19:45)
[2017-10-02] MEDS: IPRATRPIUM/ALBUTEROL 0.5/2.5MG 3 ML NEBU. NEB SCH ×3 (08:38→19:45)
--- NOTE | 2017-10-02 09:08 | PDOC ---
PROGRESS NOTES Chief Complaint Chief Complaint Acute hypoxic respiratory failure consistent with ARDS anemia of acute blood loss, possibly upper gi, W/ melena Pneumonia post ICU, encephalopathy, acute Hypotension COPD Sepsis, severe, improving Leukocytosis - on steroids now and S/p PRBCs Anemia, acute on chronic Transaminitis - GEO improved Tobaccoism Anxiety d/o H/o Leg wounds History of Present Illness History of Present Illness still confused, but cooperative and pleasant was not eating yesterday, now NPO for possible EGD pt c/o of dryness and thirst Extubated 09/30/2017 her , Kurt has been here every day, all day when I see her PT and OT, getting stronger more anemia yesterday, melena, 1 pRbc given yesterday, will give blood again today Vitals Vitals Vital Signs Date Time Temp Pulse Resp B/P (MAP) Pulse Ox O2 Delivery O2 Flow Rate FiO2 10/02/17 08:40 95 Room Air 10/02/17 07:15 98.3 69 19 110/62 (78) 98.3 10/01/17 20:00 2.0 Physical Exam General: Alert, Cooperative, Other (disoriented) Heart: Normal S1, Normal S2 Lungs: Clear Abdomen: Normal bowel sounds, Soft Extremities: No clubbing, No cyanosis, Normal pulses, Other (1+ edema) Skin: No rashes, No significant lesion Labs LABS Laboratory Tests Test 10/01/17 11:30 10/01/17 11:44 10/01/17 17:01 10/01/17 20:33 White Blood Count 13.9 x10^3/uL (4.0-11.0) Red Blood Count 2.66 x10^6/uL (3.50-5.40) Hemoglobin 7.0 g/dL (12.0-15.5) Hematocrit 22.4 % (36.0-47.0) Mean Corpuscular Volume 84 fL (79-100) Mean Corpuscular Hemoglobin 26 pg (25-35) Mean Corpuscular Hemoglobin Concent 31 g/dL (31-37) Red Cell Distribution Width 29.8 % (11.5-14.5) Platelet Count 335 x10^3/uL (140-400) Neutrophils (%) (Auto) 93 % (31-73) Lymphocytes (%) (Auto) 2 % (24-48) Monocytes (%) (Auto) 4 % (0-9) Eosinophils (%) (Auto) 0 % (0-3) Basophils (%) (Auto) 0 % (0-3) Neutrophils # (Auto) 13.0 x10^3uL (1.8-7.7) Lymphocytes # (Auto) 0.3 x10^3/uL (1.0-4.8) Monocytes # (Auto) 0.6 x10^3/uL (0.0-1.1) Eosinophils # (Auto) 0.0 x10^3/uL (0.0-0.7) Basophils # (Auto) 0.0 x10^3/uL (0.0-0.2) Glucose (Fingerstick) 114 mg/dL (70-99) 134 mg/dL (70-99) 120 mg/dL (70-99) Test 10/01/17 21:55 10/02/17 05:30 10/02/17 08:07 White Blood Count 15.6 x10^3/uL (4.0-11.0) 14.1 x10^3/uL (4.0-11.0) Red Blood Count 3.06 x10^6/uL (3.50-5.40) 2.83 x10^6/uL (3.50-5.40) Hemoglobin 8.2 g/dL (12.0-15.5) 7.6 g/dL (12.0-15.5) Hematocrit 26.1 % (36.0-47.0) 24.0 % (36.0-47.0) Mean Corpuscular Volume 85 fL (79-100) 85 fL (79-100) Mean Corpuscular Hemoglobin 27 pg (25-35) 27 pg (25-35) Mean Corpuscular Hemoglobin Concent 32 g/dL (31-37) 32 g/dL (31-37) Red Cell Distribution Width 25.1 % (11.5-14.5) 26.1 % (11.5-14.5) Platelet Count 332 x10^3/uL (140-400) 320 x10^3/uL (140-400) Neutrophils (%) (Auto) 89 % (31-73) Lymphocytes (%) (Auto) 4 % (24-48) Monocytes (%) (Auto) 7 % (0-9) Eosinophils (%) (Auto) 0 % (0-3) Basophils (%) (Auto) 0 % (0-3) Neutrophils # (Auto) 12.6 x10^3uL (1.8-7.7) Lymphocytes # (Auto) 0.6 x10^3/uL (1.0-4.8) Monocytes # (Auto) 1.0 x10^3/uL (0.0-1.1) Eosinophils # (Auto) 0.0 x10^3/uL (0.0-0.7) Basophils # (Auto) 0.0 x10^3/uL (0.0-0.2) Sodium Level 147 mmol/L (136-145) Potassium Level 3.5 mmol/L (3.5-5.1) Chloride Level 116 mmol/L (98-107) Carbon Dioxide Level 22 mmol/L (21-32) Anion Gap 9 (6-14) Blood Urea Nitrogen 43 mg/dL (7-20) Creatinine 0.8 mg/dL (0.6-1.0) Estimated GFR (Cockcroft-Gault) 73.2 BUN/Creatinine Ratio 54 (6-20) Glucose Level 118 mg/dL (70-99) Calcium Level 7.9 mg/dL (8.5-10.1) Total Bilirubin 0.5 mg/dL (0.2-1.0) Aspartate Amino Transf (AST/SGOT) 19 U/L (15-37) Alanine Aminotransferase (ALT/SGPT) 26 U/L (14-59) Alkaline Phosphatase 39 U/L (46-116) Total Protein 4.2 g/dL (6.4-8.2) Albumin 2.0 g/dL (3.4-5.0) Albumin/Globulin Ratio 0.9 (1.0-1.7) Glucose (Fingerstick) 105 mg/dL (70-99) Review of Systems Review of Systems confusion, dry mouth no n.v.d Assessment and Plan Assessmemt and Plan Problems Medical Problems: (1) Dyspnea Status: Acute (2) Hypoalbuminemia Status: Acute (3) Metabolic acidosis Status: Acute (4) Pneumonia Status: Acute Problems: Comment Review of Relevant I have reviewed the following items tha (where applicable) has been applied. Labs Laboratory Tests Test 09/30/17 14:30 10/01/17 03:45 10/01/17 08:25 10/01/17 11:30 Glucose (Fingerstick) 99 mg/dL (70-99) 128 mg/dL (70-99) White Blood Count 14.6 x10^3/uL (4.0-11.0) 13.9 x10^3/uL (4.0-11.0) Red Blood Count 2.85 x10^6/uL (3.50-5.40) 2.66 x10^6/uL (3.50-5.40) Hemoglobin 7.5 g/dL (12.0-15.5) 7.0 g/dL (12.0-15.5) Hematocrit 24.1 % (36.0-47.0) 22.4 % (36.0-47.0) Mean Corpuscular Volume 85 fL (79-100) 84 fL (79-100) Mean Corpuscular Hemoglobin 26 pg (25-35) 26 pg (25-35) Mean Corpuscular Hemoglobin Concent 31 g/dL (31-37) 31 g/dL (31-37) Red Cell Distribution Width 29.3 % (11.5-14.5) 29.8 % (11.5-14.5) Platelet Count 338 x10^3/uL (140-400) 335 x10^3/uL (140-400) Neutrophils (%) (Auto) 93 % (31-73) 93 % (31-73) Lymphocytes (%) (Auto) 3 % (24-48) 2 % (24-48) Monocytes (%) (Auto) 4 % (0-9) 4 % (0-9) Eosinophils (%) (Auto) 0 % (0-3) 0 % (0-3) Basophils (%) (Auto) 1 % (0-3) 0 % (0-3) Neutrophils # (Auto) 13.5 x10^3uL (1.8-7.7) 13.0 x10^3uL (1.8-7.7) Lymphocytes # (Auto) 0.4 x10^3/uL (1.0-4.8) 0.3 x10^3/uL (1.0-4.8) Monocytes # (Auto) 0.6 x10^3/uL (0.0-1.1) 0.6 x10^3/uL (0.0-1.1) Eosinophils # (Auto) 0.0 x10^3/uL (0.0-0.7) 0.0 x10^3/uL (0.0-0.7) Basophils # (Auto) 0.1 x10^3/uL (0.0-0.2) 0.0 x10^3/uL (0.0-0.2) Segmented Neutrophils % 95 % (35-66) Band Neutrophils % 2 % (0-9) Lymphocytes % 1 % (24-48) Monocytes % 2 % (0-10) Platelet Estimate Adequate (ADEQUATE) Sodium Level 145 mmol/L (136-145) Potassium Level 4.2 mmol/L (3.5-5.1) Chloride Level 114 mmol/L (98-107) Carbon Dioxide Level 23 mmol/L (21-32) Anion Gap 8 (6-14) Blood Urea Nitrogen 53 mg/dL (7-20) Creatinine 0.9 mg/dL (0.6-1.0) Estimated GFR (Cockcroft-Gault) 63.9 Glucose Level 135 mg/dL (70-99) Calcium Level 7.8 mg/dL (8.5-10.1) Test 10/01/17 11:44 10/01/17 17:01 10/01/17 20:33 10/01/17 21:55 Glucose (Fingerstick) 114 mg/dL (70-99) 134 mg/dL (70-99) 120 mg/dL (70-99) White Blood Count 15.6 x10^3/uL (4.0-11.0) Red Blood Count 3.06 x10^6/uL (3.50-5.40) Hemoglobin 8.2 g/dL (12.0-15.5) Hematocrit 26.1 % (36.0-47.0) Mean Corpuscular Volume 85 fL (79-100) Mean Corpuscular Hemoglobin 27 pg (25-35) Mean Corpuscular Hemoglobin Concent 32 g/dL (31-37) Red Cell Distribution Width 25.1 % (11.5-14.5) Platelet Count 332 x10^3/uL (140-400) Test 10/02/17 05:30 10/02/17 08:07 White Blood Count 14.1 x10^3/uL (4.0-11.0) Red Blood Count 2.83 x10^6/uL (3.50-5.40) Hemoglobin 7.6 g/dL (12.0-15.5) Hematocrit 24.0 % (36.0-47.0) Mean Corpuscular Volume 85 fL (79-100) Mean Corpuscular Hemoglobin 27 pg (25-35) Mean Corpuscular Hemoglobin Concent 32 g/dL (31-37) Red Cell Distribution Width 26.1 % (11.5-14.5) Platelet Count 320 x10^3/uL (140-400) Neutrophils (%) (Auto) 89 % (31-73) Lymphocytes (%) (Auto) 4 % (24-48) Monocytes (%) (Auto) 7 % (0-9) Eosinophils (%) (Auto) 0 % (0-3) Basophils (%) (Auto) 0 % (0-3) Neutrophils # (Auto) 12.6 x10^3uL (1.8-7.7) Lymphocytes # (Auto) 0.6 x10^3/uL (1.0-4.8) Monocytes # (Auto) 1.0 x10^3/uL (0.0-1.1) Eosinophils # (Auto) 0.0 x10^3/uL (0.0-0.7) Basophils # (Auto) 0.0 x10^3/uL (0.0-0.2) Sodium Level 147 mmol/L (136-145) Potassium Level 3.5 mmol/L (3.5-5.1) Chloride Level 116 mmol/L (98-107) Carbon Dioxide Level 22 mmol/L (21-32) Anion Gap 9 (6-14) Blood Urea Nitrogen 43 mg/dL (7-20) Creatinine 0.8 mg/dL (0.6-1.0) Estimated GFR (Cockcroft-Gault) 73.2 BUN/Creatinine Ratio 54 (6-20) Glucose Level 118 mg/dL (70-99) Calcium Level 7.9 mg/dL (8.5-10.1) Total Bilirubin 0.5 mg/dL (0.2-1.0) Aspartate Amino Transf (AST/SGOT) 19 U/L (15-37) Alanine Aminotransferase (ALT/SGPT) 26 U/L (14-59) Alkaline Phosphatase 39 U/L (46-116) Total Protein 4.2 g/dL (6.4-8.2) Albumin 2.0 g/dL (3.4-5.0) Albumin/Globulin Ratio 0.9 (1.0-1.7) Glucose (Fingerstick) 105 mg/dL (70-99) Laboratory Tests Test 10/01/17 11:30 10/01/17 11:44 10/01/17 17:01 10/01/17 20:33 White Blood Count 13.9 x10^3/uL (4.0-11.0) Red Blood Count 2.66 x10^6/uL (3.50-5.40) Hemoglobin 7.0 g/dL (12.0-15.5) Hematocrit 22.4 % (36.0-47.0) Mean Corpuscular Volume 84 fL (79-100) Mean Corpuscular Hemoglobin 26 pg (25-35) Mean Corpuscular Hemoglobin Concent 31 g/dL (31-37) Red Cell Distribution Width 29.8 % (11.5-14.5) Platelet Count 335 x10^3/uL (140-400) Neutrophils (%) (Auto) 93 % (31-73) Lymphocytes (%) (Auto) 2 % (24-48) Monocytes (%) (Auto) 4 % (0-9) Eosinophils (%) (Auto) 0 % (0-3) Basophils (%) (Auto) 0 % (0-3) Neutrophils # (Auto) 13.0 x10^3uL (1.8-7.7) Lymphocytes # (Auto) 0.3 x10^3/uL (1.0-4.8) Monocytes # (Auto) 0.6 x10^3/uL (0.0-1.1) Eosinophils # (Auto) 0.0 x10^3/uL (0.0-0.7) Basophils # (Auto) 0.0 x10^3/uL (0.0-0.2) Glucose (Fingerstick) 114 mg/dL (70-99) 134 mg/dL (70-99) 120 mg/dL (70-99) Test 10/01/17 21:55 10/02/17 05:30 10/02/17 08:07 White Blood Count 15.6 x10^3/uL (4.0-11.0) 14.1 x10^3/uL (4.0-11.0) Red Blood Count 3.06 x10^6/uL (3.50-5.40) 2.83 x10^6/uL (3.50-5.40) Hemoglobin 8.2 g/dL (12.0-15.5) 7.6 g/dL (12.0-15.5) Hematocrit 26.1 % (36.0-47.0) 24.0 % (36.0-47.0) Mean Corpuscular Volume 85 fL (79-100) 85 fL (79-100) Mean Corpuscular Hemoglobin 27 pg (25-35) 27 pg (25-35) Mean Corpuscular Hemoglobin Concent 32 g/dL (31-37) 32 g/dL (31-37) Red Cell Distribution Width 25.1 % (11.5-14.5) 26.1 % (11.5-14.5) Platelet Count 332 x10^3/uL (140-400) 320 x10^3/uL (140-400) Neutrophils (%) (Auto) 89 % (31-73) Lymphocytes (%) (Auto) 4 % (24-48) Monocytes (%) (Auto) 7 % (0-9) Eosinophils (%) (Auto) 0 % (0-3) Basophils (%) (Auto) 0 % (0-3) Neutrophils # (Auto) 12.6 x10^3uL (1.8-7.7) Lymphocytes # (Auto) 0.6 x10^3/uL (1.0-4.8) Monocytes # (Auto) 1.0 x10^3/uL (0.0-1.1) Eosinophils # (Auto) 0.0 x10^3/uL (0.0-0.7) Basophils # (Auto) 0.0 x10^3/uL (0.0-0.2) Sodium Level 147 mmol/L (136-145) Potassium Level 3.5 mmol/L (3.5-5.1) Chloride Level 116 mmol/L (98-107) Carbon Dioxide Level 22 mmol/L (21-32) Anion Gap 9 (6-14) Blood Urea Nitrogen 43 mg/dL (7-20) Creatinine 0.8 mg/dL (0.6-1.0) Estimated GFR (Cockcroft-Gault) 73.2 BUN/Creatinine Ratio 54 (6-20) Glucose Level 118 mg/dL (70-99) Calcium Level 7.9 mg/dL (8.5-10.1) Total Bilirubin 0.5 mg/dL (0.2-1.0) Aspartate Amino Transf (AST/SGOT) 19 U/L (15-37) Alanine Aminotransferase (ALT/SGPT) 26 U/L (14-59) Alkaline Phosphatase 39 U/L (46-116) Total Protein 4.2 g/dL (6.4-8.2) Albumin 2.0 g/dL (3.4-5.0) Albumin/Globulin Ratio 0.9 (1.0-1.7) Glucose (Fingerstick) 105 mg/dL (70-99) Microbiology 09/17/17 Blood Culture - Final, Complete NO GROWTH AFTER 5 DAYS 09/20/17 AFB Specimen Processing Tissue - Final, Resulted 09/20/17 Acid Fast Bacilli Culture, Resulted Pending 09/20/17 Gram Stain - Final, Resulted 09/20/17 Fungal Culture - Preliminary, Resulted 09/20/17 Fungal Culture Result 1 - Preliminary, Resulted Medications Current Medications Sodium Chloride 1,000 ml @ 125 mls/hr 1X ONCE IV Last administered on t 15:54; Start 09/17/17 at 15:15; Stop 09/17/17 at 23:14; Status DC Ondansetron HCl (Zofran) 4 mg PRN Q8HRS PRN IV NAUSEA/VOMITING; Start at 16:30; Stop 09/18/17 at 16:29; Status DC Ceftriaxone Sodium 50 ml @ 0 mls/hr 1X ONCE IV Last administered on t 17:33; Start 09/17/17 at 16:45; Stop 09/17/17 at 16:46; Status DC Azithromycin 250 ml @ 250 mls/hr 1X ONCE IV Last administered on 09/17/17 22:38; Start 09/17/17 at 16:30; Stop 09/17/17 at 17:29; Status DC Albuterol/ Ipratropium (Duoneb) 3 ml 1X ONCE NEB Last administered on 17:00; Start 09/17/17 at 16:45; Stop 09/17/17 at 16:46; Status DC Potassium Chloride (Klor-Con) 40 meq 1X ONCE PO Last administered on 16:57; Start 09/17/17 at 16:45; Stop 09/17/17 at 16:46; Status DC Azithromycin (Zithromax) 250 mg DAILY PO Last administered on 09/18/17 10:25 ; Start 09/18/17 at 09:00; Stop 09/19/17 at 10:30; Status DC Ceftriaxone Sodium 1 gm/ Dextrose 50 ml @ 100 mls/hr Q24H IV ; Start 09/17/17 at 17:15; Status UNV Albuterol/ Ipratropium (Duoneb) 3 ml Q4HRS NEB Last administered on 09/30/17 08:11; Start 09/17/17 at 20:00; Stop 09/30/17 at 09:21; Status DC Ceftriaxone Sodium (Rocephin) 1 gm Q24H IVP Last administered on 09/18/17 17: 55; Start 09/18/17 at 16:00; Stop 09/19/17 at 10:30; Status DC Guaifenesin (Robitussin Dm) 10 ml PRN Q6HRS PRN PO COUGH; Start 09/17/17 at 17 :15; Stop 09/30/17 at 09:21; Status DC Sodium Chloride 1,000 ml @ 125 mls/hr 1X ONCE IV Last administered on 17:45; Start 09/17/17 at 17:15; Stop 09/17/17 at 22:12; Status DC Info (Do NOT chart on this placeholder) 1 each 1X ONCE MC ; Start 09/17/17 at 19:00; Stop 09/17/17 at 19:01; Status UNV Influenza Virus Vaccine Quadrival (Fluarix Quad [id number] Syringe) 0.5 ml ONCE ONCE VAX IM Last administered on 09/17/17 21:00; Start 09/17/17 at 21:00; Stop 09/17/17 at 21:01; Status DC Sodium Chloride 1,000 ml @ 130 mls/hr 1X ONCE IV Last administered on 22:31; Start 09/17/17 at 22:30; Stop 09/18/17 at 06:11; Status DC Sodium Bicarbonate 50 meq 1X ONCE IV Last administered on 09/17/17 22:31; Start 09/17/17 at 22:30; Stop 09/17/17 at 22:31; Status DC Alprazolam (Xanax) 1 mg PRN TID PRN PO ANXIETY Last administered on 09/19/17 02:19; Start 09/17/17 at 22:30; Stop 09/30/17 at 09:21; Status DC Furosemide (Lasix) 20 mg 1X ONCE IVP Last administered on 09/18/17 06:24; Start 09/18/17 at 06:30; Stop 09/18/17 at 06:31; Status DC Potassium Chloride (Klor-Con) 40 meq 1X ONCE PO Last administered on 10:25; Start 09/18/17 at 09:00; Stop 09/18/17 at 09:01; Status DC Iron Sucrose 500 mg/Sodium Chloride 275 ml @ 78.571 mls/ hr 1X ONCE IV Last administered on 09/18/17 10:24; Start 09/18/17 at 09:00; Stop 09/18/17 at 12 :29; Status DC Furosemide (Lasix) 20 mg 1X ONCE IVP Last administered on 09/18/17 10:30; Start 09/18/17 at 10:00; Stop 09/18/17 at 10:22; Status DC Pantoprazole Sodium (Protonix) 40 mg DAILYAC PO Last administered on 10:47; Start 09/18/17 at 11:00; Stop 09/19/17 at 13:41; Status DC Furosemide (Lasix) 20 mg 1X ONCE IVP Last administered on 09/18/17 10:47; Start 09/18/17 at 10:45; Stop 09/18/17 at 10:46; Status DC Potassium Chloride (Klor-Con) 40 meq 1X ONCE PO ; Start 09/18/17 at 11:45; Stop 09/18/17 at 11:46; Status DC Oxycodone/ Acetaminophen (Percocet 5/325) 1 tab PRN Q6HRS PRN PO PAIN Last administered on 09/18/17 13:23; Start 09/18/17 at 12:15 Lorazepam (Ativan) 1 mg PRN Q4HRS PRN IV ANXIETY / AGITATION Last administered on 09/18/17 12:25; Start 09/18/17 at 12:15; Stop 09/18/17 at 13:34; Status DC Fentanyl Citrate (Fentanyl 2ml Vial) 50 mcg PRN Q2HR PRN IV PAIN Last administered on 09/19/17 04:09; Start 09/18/17 at 12:15; Stop 09/30/17 at 09 :21; Status DC Lorazepam (Ativan) 2 mg PRN Q4HRS PRN IV ANXIETY / AGITATION Last administered on 09/29/17 05:17; Start 09/18/17 at 13:30; Stop 09/30/17 at 09:21; Status DC Quetiapine Fumarate (SEROquel) 25 mg HS PO Last administered on 09/18/17 21: 03; Start 09/18/17 at 21:00; Stop 09/19/17 at 10:35; Status DC Haloperidol Lactate (Haldol) 5 mg PRN Q12HRS PRN IVP AGITATION; Start at 13:45 Lorazepam (Ativan) 1 mg PRN Q4HRS PRN IV ANXIETY / AGITATION; Start 09/19/17 at 10:15; Stop 09/19/17 at 10:18; Status DC Lorazepam (Ativan) 4 mg 1X ONCE IV ; Start 09/19/17 at 10:30; Stop 09/19/17 at 10:31; Status DC Vancomycin HCl (Vanco Per Pharmacy) 1 each PRN DAILY PRN MC SEE COMMENTS Last administered on 09/23/17 12:36; Start 09/19/17 at 10:30; Stop 09/24/17 at 08 :36; Status DC Piperacillin Sod/ Tazobactam Sod (Zosyn Per Pharmacy) 1 each PRN DAILY PRN MC SEE COMMENTS; Start 09/19/17 at 10:30; Stop 09/24/17 at 08:41; Status DC Vancomycin HCl 2 gm/Dextrose 500 ml @ 250 mls/hr 1X ONCE IV Last administered on 09/19/17 14:53; Start 09/19/17 at 11:00; Stop 09/19/17 at 12 :59; Status DC Piperacillin Sod/ Tazobactam Sod (Zosyn) 3.375 gm Q6HRS IVP Last administered on 10/02/17 04:38; Start 09/19/17 at 11:00 Budesonide (Pulmicort) 0.5 mg RTBID NEB Last administered on 10/02/17 08:38; Start 09/19/17 at 20:00 Budesonide (Pulmicort) 0.5 mg 1X ONCE NEB Last administered on 09/19/17 12: 50; Start 09/19/17 at 10:45; Stop 09/19/17 at 10:46; Status DC Pantoprazole Sodium (PROTONIX VIAL for IV PUSH) 40 mg DAILYAC IVP Last administered on 10/02/17 07:55; Start 09/19/17 at 11:30 Furosemide (Lasix) 40 mg DAILY IVP ; Start 09/19/17 at 11:00; Stop 09/20/17 at 13:20; Status DC Methylprednisolone Sodium Succinate (SOLU-Medrol 125MG VIAL) 125 mg 1X ONCE IV Last administered on 09/19/17 13:23; Start 09/19/17 at 10:45; Stop at 10:46; Status DC Prednisone (Prednisone) 40 mg DAILY PO ; Start 09/19/17 at 11:00; Stop at 09:02; Status DC Methylprednisolone Sodium Succinate (SOLU-Medrol 125MG VIAL) 125 mg Q8HRS IV Last administered on 09/23/17 05:43; Start 09/19/17 at 14:00; Stop 09/23/17 at 10:40; Status DC Midazolam HCl 100 ml @ 0 mls/hr CONT PRN IV SEE I/O RECORD; Start 09/19/17 at 11:00; Stop 09/19/17 at 12:51; Status DC Midazolam HCl (Versed) 5 mg 1X ONCE IV ; Start 09/19/17 at 11:00; Stop at 11:01; Status DC Fentanyl Citrate (Fentanyl 2ml Vial) 50 mcg 1X ONCE IV ; Start 09/19/17 at 11: 00; Stop 09/19/17 at 11:01; Status DC Midazolam HCl 100 ml @ As Directed STK-MED ONCE IV ; Start 09/19/17 at 10:55; Stop 09/19/17 at 10:56; Status DC Midazolam HCl (Versed) 5 mg STK-MED ONCE .ROUTE ; Start 09/19/17 at 10:55; Stop 09/19/17 at 10:56; Status DC Propofol 100 ml @ As Directed STK-MED ONCE IV ; Start 09/19/17 at 10:59; Stop 09/19/17 at 11:00; Status DC Norepinephrine Bitartrate 250 ml @ As Directed STK-MED ONCE IV ; Start at 10:59; Stop 09/19/17 at 11:00; Status DC Furosemide (Lasix) 20 mg 1X ONCE IVP ; Start 09/19/17 at 11:15; Stop at 11:16; Status DC Vecuronium [place] (Norcuron Bolus) 10 mg STK-MED ONCE IV ; Start 09/19/17 at 11:21; Stop 09/19/17 at 11:22; Status DC Fentanyl Citrate 30 ml @ 0 mls/hr CONT PRN IV PROTOCOL Last administered on 15:08; Start 09/19/17 at 11:30; Stop 09/23/17 at 15:24; Status DC Vecuronium [place] (Norcuron Bolus) 6 mg 1X ONCE IV Last administered on 09/19 11:42; Start 09/19/17 at 11:30; Stop 09/19/17 at 11:39; Status DC Propofol 10 ml @ 0 mls/hr 1X ONCE IV Last administered on 09/19/17 11:30; Start 09/19/17 at 11:30; Stop 09/19/17 at 11:39; Status DC Midazolam HCl 100 ml @ 0 mls/hr CONT PRN IV SEE I/O RECORD Last administered on 09/27/17 00:40; Start 09/19/17 at 11:30; Stop 09/30/17 at 09:21; Status DC Norepinephrine Bitartrate 250 ml @ 0 mls/hr CONT PRN IV SEE I/O RECORD Last administered on 09/24/17 05:18; Start 09/19/17 at 11:30; Stop 09/30/17 at 09 :21; Status DC Succinylcholine Chloride (Anectine) 100 mg 1X ONCE IV Last administered on 11:42; Start 09/19/17 at 11:30; Stop 09/19/17 at 11:39; Status DC Sodium Bicarbonate 50 meq 1X ONCE IV Last administered on 09/19/17 13:23; Start 09/19/17 at 12:45; Stop 09/19/17 at 12:46; Status DC Sodium Bicarbonate 50 meq 1X ONCE IV Last administered on 09/19/17 13:23; Start 09/19/17 at 12:45; Stop 09/19/17 at 12:46; Status DC Lidocaine/Sodium Bicarbonate (Buffered Lidocaine 1%) 20 ml STK-MED ONCE IJ ; Start 09/19/17 at 13:34; Stop 09/19/17 at 13:35; Status DC Vecuronium [place] (Norcuron Bolus) 10 mg 1X ONCE IV Last administered on 15:05; Start 09/19/17 at 14:00; Stop 09/19/17 at 14:02; Status DC Lidocaine/Sodium Bicarbonate (Buffered Lidocaine 1%) 3 ml 1X ONCE IJ ; Start 09/19/17 at 14:45; Stop 09/19/17 at 14:46; Status DC Vancomycin HCl 1.25 gm/Dextrose 250 ml @ 166.667 mls/hr Q24H IV Last administered on 09/23/17 17:19; Start 09/20/17 at 15:00; Stop 09/24/17 at 08 :35; Status DC Vancomycin HCl 1 each 1X ONCE MC Last administered on 09/21/17 14:30; Start 09/21/17 at 14:30; Stop 09/21/17 at 14:31; Status DC Azithromycin 500 mg/Sodium Chloride 250 ml @ 250 mls/hr Q24H IV Last administered on 09/23/17 17:19; Start 09/19/17 at 16:30; Stop 09/24/17 at 08 :35; Status DC Norepinephrine Bitartrate (Levophed 8mg/ 250ml Premix Drip) 8 mg STK-MED ONCE IV ; Start 09/19/17 at 11:00; Stop 09/20/17 at 08:44; Status DC Midazolam HCl (Versed) 5 mg STK-MED ONCE .ROUTE ; Start 09/19/17 at 11:00; Stop 09/20/17 at 08:44; Status DC Amino Acids/ Glycerin/ Electrolytes 1,000 ml @ 80 mls/hr [id number] IV Last administered on 09/21/17t 01:21; Start 09/20/17 at 10:00; Stop 09/22/17 at 07 :02; Status DC Info 1 each PRN DAILY PRN MC SEE COMMENTS; Start 09/20/17 at 10:00; Stop at 12:14; Status DC Furosemide (Lasix) 20 mg 1X ONCE IVP Last administered on 09/20/17t 10:21; Start 09/20/17 at 10:15; Stop 09/20/17 at 10:18; Status DC Info 1 each PRN DAILY PRN MC SEE COMMENTS; Start 09/20/17 at 11:00; Status UNV Vecuronium [place] (Norcuron Bolus) 10 mg 1X ONCE IV Last administered on t 12:03; Start 09/20/17 at 11:15; Stop 09/20/17 at 11:24; Status DC Atropine Sulfate 0.5 mg STK-MED ONCE .ROUTE ; Start 09/20/17 at 11:47; Stop at 11:48; Status DC Epinephrine HCl (EPINEPHrine SYRINGE) 1 mg STK-MED ONCE .ROUTE ; Start at 11:47; Stop 09/20/17 at 11:48; Status DC Atropine Sulfate 0.5 mg STK-MED ONCE .ROUTE ; Start 09/20/17 at 12:00; Stop at 09:11; Status DC Epinephrine HCl (EPINEPHrine SYRINGE) 1 mg STK-MED ONCE .ROUTE ; Start at 12:00; Stop 09/21/17 at 09:11; Status DC Furosemide (Lasix) 20 mg DAILY IVP ; Start 09/21/17 at 11:15; Stop 09/21/17 at 11:20; Status DC Lorazepam (Ativan) 1 mg PRN Q1HR PRN IV ANXIETY / AGITATION Last administered on 09/28/17 17:04; Start 09/21/17 at 11:15; Stop 09/30/17 at 09:21; Status DC Albumin Human 250 ml @ 62.5 mls/hr 1X ONCE IV Last administered on 11:57; Start 09/21/17 at 11:30; Stop 09/21/17 at 15:29; Status DC Albumin Human 250 ml @ 62.5 mls/hr 1X ONCE IV Last administered on 14:29; Start 09/21/17 at 11:30; Stop 09/21/17 at 15:29; Status DC Micafungin Sodium 100 mg/Dextrose 100 ml @ 100 mls/hr Q24H IV Last administered on 09/23/17 13:17; Start 09/21/17 at 12:00; Stop 09/24/17 at 08 :35; Status DC Vecuronium [place] (Norcuron Bolus) 4 mg PRN Q4HRS PRN IV AGITATION; Start at 15:00; Stop 09/30/17 at 09:21; Status DC Dexmedetomidine HCl 200 mcg/ Sodium Chloride 50 ml @ 0 mls/hr CONT PRN IV PER PROTOCOL Last administered on 09/21/17 15:54; Start 09/21/17 at 15:30; Stop 09/30/17 at 09:21; Status DC Sodium Chloride 500 ml @ 500 mls/hr 1X PRN PRN IV SEE COMMENTS; Start at 15:30 Atropine Sulfate 0.5 mg PRN Q5MIN PRN IV SEE COMMENTS; Start 09/21/17 at 15:30 Propofol 100 ml @ 0 mls/hr CONT PRN IV PER PROTOCOL Last administered on 14:35; Start 09/21/17 at 16:45; Stop 09/30/17 at 09:21; Status DC Furosemide (Lasix) 20 mg 1X ONCE IVP Last administered on 09/22/17 09:41; Start 09/22/17 at 10:15; Stop 09/22/17 at 10:16; Status DC Chlorhexidine Gluconate (Peridex) 15 ml BID MM Last administered on 09/29/17 08:07; Start 09/22/17 at 21:00; Stop 09/29/17 at 20:22; Status DC Furosemide (Lasix) 20 mg 1X ONCE IVP Last administered on 09/22/17 17:55; Start 09/22/17 at 18:00; Stop 09/22/17 at 18:01; Status DC Furosemide (Lasix) 20 mg DAILY IVP Last administered on 09/23/17 13:16; Start 09/23/17 at 11:30; Stop 09/24/17 at 08:40; Status DC Methylprednisolone Sodium Succinate (SOLU-Medrol 125MG VIAL) 80 mg Q8HRS IV Last administered on 09/30/17 05:47; Start 09/23/17 at 14:00; Stop 09/30/17 at 09:26; Status DC Fentanyl Citrate 55 ml @ 0 mls/hr CONT PRN PRN IV PER PROTOCOL Last administered on 09/28/17 19:13; Start 09/23/17 at 12:15; Stop 09/30/17 at 09 :21; Status DC Dextrose 1,000 ml @ 25 mls/hr Q24H IV Last administered on 09/28/17 12:59; Start 09/23/17 at 11:45 Enoxaparin Sodium (Lovenox Per Pharmacy Prophylaxis Dosing) 1 each PRN DAILY PRN MC SEE COMMENTS; Start 09/23/17 at 16:30; Stop 09/24/17 at 08:41; Status DC Enoxaparin Sodium (Lovenox 40mg Syringe) 40 mg Q24H SQ Last administered on 17:00; Start 09/23/17 at 17:00 Bisacodyl (Dulcolax Tab) 5 mg PRN DAILY PRN PO CONSTIPATION; Start 09/24/17 at 09:30 Insulin Aspart (NovoLOG) 0-5 UNITS Q6HRS SQ Last administered on 09/29/17 12: 27; Start 09/25/17 at 18:00; Stop 10/01/17 at 02:54; Status DC Dextrose (Dextrose 50%-Water Syringe) 12.5 gm PRN Q15MIN PRN IV SEE COMMENTS; Start 09/25/17 at 12:30; Stop 10/01/17 at 02:54; Status DC Dextrose/Sodium Chloride 1,000 ml @ 75 mls/hr [id number] IV Last administered on 10/02/17 01:23; Start 09/29/17 at 19:00 Ondansetron HCl (Zofran) 4 mg PRN Q6HRS PRN IV NAUSEA/VOMITING Last administered on 10/01/17 20:33; Start 09/29/17 at 20:00 Albuterol/ Ipratropium (Duoneb) 3 ml TID NEB Last administered on 10/02/17 08 :38; Start 09/30/17 at 14:00 Methylprednisolone Sodium Succinate (SOLU-Medrol 125MG VIAL) 80 mg Q12HR IV Last administered on 10/01/17 08:56; Start 09/30/17 at 21:00; Stop 10/01/17 at 10:22; Status DC Iron Sucrose 500 mg/Sodium Chloride 275 ml @ 78.571 mls/ hr 1X ONCE IV Last administered on 10/01/17 10:08; Start 10/01/17 at 09:30; Stop 10/01/17 at 12 :59; Status DC Methylprednisolone Sodium Succinate (SOLU-Medrol 40MG VIAL) 40 mg Q12HR IV ; Start 10/01/17 at 21:00; Stop 10/01/17 at 21:00; Status DC Alprazolam (Xanax) 0.25 mg PRN Q8HRS PRN PO ANXIETY / AGITATION; Start at 10:30 Quetiapine Fumarate (SEROquel) 50 mg HS PO ; Start 10/01/17 at 21:00 Methylprednisolone Sodium Succinate (SOLU-Medrol 40MG VIAL) 40 mg QHS IV Last administered on 10/01/17 20:32; Start 10/01/17 at 21:00 Saliva Substitute (Biotene Moisturizing Mouth) 2 spray PRN Q15MIN PRN PO DRY MOUTH; Start 10/02/17 at 09:15; Status UNV Info 1 each PRN DAILY PRN MC SEE COMMENTS; Start 10/02/17 at 09:15; Status UNV Active Scripts Active Reported Gabapentin 300 Mg Capsule 300 Mg PO TID Cymbalta (Duloxetine Hcl) 60 Mg Capsule.dr 1 Cap PO BID Hydrochlorothiazide Tablet (Hydrochlorothiazide) 25 Mg Tablet 1 Tab PO DAILY Xanax (Alprazolam) 1 Mg Tablet 1 Tab PO TID PRN Vitals/I & O Vital Sign - Last 24 Hours 10/01/17 10/01/17 10/01/17 10/01/17 11:00 13:31 14:12 14:27 Temp 98.2 98.2 99.0 98.2 98.2 99.0 Pulse 85 84 81 Resp 20 24 22 B/P (MAP) 130/81 (97) 134/80 134/81 Pulse Ox 94 91 O2 Delivery Room Air Room Air 10/01/17 10/01/17 10/01/17 10/01/17 15:00 15:21 16:27 16:30 Temp 99.0 98.1 98.9 98.9 99.0 98.1 98.9 98.9 Pulse 81 88 100 97 Resp 22 B/P (MAP) 134/81 (98) 139/82 144/88 142/86 Pulse Ox 93 O2 Delivery Room Air 10/01/17 10/01/17 10/01/17 10/01/17 19:55 19:58 20:00 20:00 Temp 97.9 97.9 Pulse 76 Resp 16 B/P (MAP) 131/82 (98) Pulse Ox 93 97 97 O2 Delivery Room Air Room Air Room Air Nasal Cannula O2 Flow Rate 2.0 10/01/17 10/02/17 10/02/17 10/02/17 23:48 03:48 07:15 08:40 Temp 98.2 98.8 98.3 98.2 98.8 98.3 Pulse 82 86 69 Resp 16 16 19 B/P (MAP) 145/87 (106) 132/75 (94) 110/62 (78) Pulse Ox 95 95 96 95 O2 Delivery Room Air Room Air Room Air Room Air Intake and Output 10/01/17 10/01/17 10/02/17 15:00 23:00 07:00 Intake Total 330 ml 350 ml 0 ml Output Total 900 ml 700 ml Balance -570 ml 350 ml -700 ml ABELARDO MOORE MD Oct 02, 2017 09:08
[2017-10-02] MEDS ORDERED: SALIVA STIMULANT AGENT 44ML SPRAY BOTTLE. PO PRN (09:15)
[2017-10-02 09:31] LABS: MAGNESIUM 2.2 mg/dL (1.8-2.4); PHOSPHORUS 3.3 mg/dL (2.6-4.7)
[2017-10-02] MEDS ORDERED: AMINO AC 3%/ELECTROLYTE/GLYCER 1,000 ML IV SCH (10:00)
--- NOTE | 2017-10-02 10:35 | PDOC ---
PULMONARY PROGRESS NOTES Subjective EXTUBATED 09/29 SLIGHTLY IMPROVED DELIRIUM WEAK OFF 02 Vitals Vital Signs Date Time Temp Pulse Resp B/P (MAP) Pulse Ox O2 Delivery O2 Flow Rate FiO2 10/02/17 08:40 95 Room Air 10/02/17 07:15 98.3 69 19 110/62 (78) 98.3 10/01/17 20:00 2.0 General: Confused Lungs: Clear Cardiovascular: S1, S2 Abdomen: Soft Extremities: Other (WEAKNESS,1+EDEMA) Skin: Warm Labs Laboratory Tests Test 09/30/17 14:30 10/01/17 03:45 10/01/17 08:25 10/01/17 11:30 Glucose (Fingerstick) 99 mg/dL (70-99) 128 mg/dL (70-99) White Blood Count 14.6 x10^3/uL (4.0-11.0) 13.9 x10^3/uL (4.0-11.0) Red Blood Count 2.85 x10^6/uL (3.50-5.40) 2.66 x10^6/uL (3.50-5.40) Hemoglobin 7.5 g/dL (12.0-15.5) 7.0 g/dL (12.0-15.5) Hematocrit 24.1 % (36.0-47.0) 22.4 % (36.0-47.0) Mean Corpuscular Volume 85 fL (79-100) 84 fL (79-100) Mean Corpuscular Hemoglobin 26 pg (25-35) 26 pg (25-35) Mean Corpuscular Hemoglobin Concent 31 g/dL (31-37) 31 g/dL (31-37) Red Cell Distribution Width 29.3 % (11.5-14.5) 29.8 % (11.5-14.5) Platelet Count 338 x10^3/uL (140-400) 335 x10^3/uL (140-400) Neutrophils (%) (Auto) 93 % (31-73) 93 % (31-73) Lymphocytes (%) (Auto) 3 % (24-48) 2 % (24-48) Monocytes (%) (Auto) 4 % (0-9) 4 % (0-9) Eosinophils (%) (Auto) 0 % (0-3) 0 % (0-3) Basophils (%) (Auto) 1 % (0-3) 0 % (0-3) Neutrophils # (Auto) 13.5 x10^3uL (1.8-7.7) 13.0 x10^3uL (1.8-7.7) Lymphocytes # (Auto) 0.4 x10^3/uL (1.0-4.8) 0.3 x10^3/uL (1.0-4.8) Monocytes # (Auto) 0.6 x10^3/uL (0.0-1.1) 0.6 x10^3/uL (0.0-1.1) Eosinophils # (Auto) 0.0 x10^3/uL (0.0-0.7) 0.0 x10^3/uL (0.0-0.7) Basophils # (Auto) 0.1 x10^3/uL (0.0-0.2) 0.0 x10^3/uL (0.0-0.2) Segmented Neutrophils % 95 % (35-66) Band Neutrophils % 2 % (0-9) Lymphocytes % 1 % (24-48) Monocytes % 2 % (0-10) Platelet Estimate Adequate (ADEQUATE) Sodium Level 145 mmol/L (136-145) Potassium Level 4.2 mmol/L (3.5-5.1) Chloride Level 114 mmol/L (98-107) Carbon Dioxide Level 23 mmol/L (21-32) Anion Gap 8 (6-14) Blood Urea Nitrogen 53 mg/dL (7-20) Creatinine 0.9 mg/dL (0.6-1.0) Estimated GFR (Cockcroft-Gault) 63.9 Glucose Level 135 mg/dL (70-99) Calcium Level 7.8 mg/dL (8.5-10.1) Test 10/01/17 11:44 10/01/17 17:01 10/01/17 20:33 10/01/17 21:55 Glucose (Fingerstick) 114 mg/dL (70-99) 134 mg/dL (70-99) 120 mg/dL (70-99) White Blood Count 15.6 x10^3/uL (4.0-11.0) Red Blood Count 3.06 x10^6/uL (3.50-5.40) Hemoglobin 8.2 g/dL (12.0-15.5) Hematocrit 26.1 % (36.0-47.0) Mean Corpuscular Volume 85 fL (79-100) Mean Corpuscular Hemoglobin 27 pg (25-35) Mean Corpuscular Hemoglobin Concent 32 g/dL (31-37) Red Cell Distribution Width 25.1 % (11.5-14.5) Platelet Count 332 x10^3/uL (140-400) Test 10/02/17 05:30 10/02/17 08:07 White Blood Count 14.1 x10^3/uL (4.0-11.0) Red Blood Count 2.83 x10^6/uL (3.50-5.40) Hemoglobin 7.6 g/dL (12.0-15.5) Hematocrit 24.0 % (36.0-47.0) Mean Corpuscular Volume 85 fL (79-100) Mean Corpuscular Hemoglobin 27 pg (25-35) Mean Corpuscular Hemoglobin Concent 32 g/dL (31-37) Red Cell Distribution Width 26.1 % (11.5-14.5) Platelet Count 320 x10^3/uL (140-400) Neutrophils (%) (Auto) 89 % (31-73) Lymphocytes (%) (Auto) 4 % (24-48) Monocytes (%) (Auto) 7 % (0-9) Eosinophils (%) (Auto) 0 % (0-3) Basophils (%) (Auto) 0 % (0-3) Neutrophils # (Auto) 12.6 x10^3uL (1.8-7.7) Lymphocytes # (Auto) 0.6 x10^3/uL (1.0-4.8) Monocytes # (Auto) 1.0 x10^3/uL (0.0-1.1) Eosinophils # (Auto) 0.0 x10^3/uL (0.0-0.7) Basophils # (Auto) 0.0 x10^3/uL (0.0-0.2) Sodium Level 147 mmol/L (136-145) Potassium Level 3.5 mmol/L (3.5-5.1) Chloride Level 116 mmol/L (98-107) Carbon Dioxide Level 22 mmol/L (21-32) Anion Gap 9 (6-14) Blood Urea Nitrogen 43 mg/dL (7-20) Creatinine 0.8 mg/dL (0.6-1.0) Estimated GFR (Cockcroft-Gault) 73.2 BUN/Creatinine Ratio 54 (6-20) Glucose Level 118 mg/dL (70-99) Calcium Level 7.9 mg/dL (8.5-10.1) Phosphorus Level 3.3 mg/dL (2.6-4.7) Magnesium Level 2.2 mg/dL (1.8-2.4) Total Bilirubin 0.5 mg/dL (0.2-1.0) Aspartate Amino Transf (AST/SGOT) 19 U/L (15-37) Alanine Aminotransferase (ALT/SGPT) 26 U/L (14-59) Alkaline Phosphatase 39 U/L (46-116) Total Protein 4.2 g/dL (6.4-8.2) Albumin 2.0 g/dL (3.4-5.0) Albumin/Globulin Ratio 0.9 (1.0-1.7) Glucose (Fingerstick) 105 mg/dL (70-99) Laboratory Tests Test 10/01/17 11:30 10/01/17 11:44 10/01/17 17:01 10/01/17 20:33 White Blood Count 13.9 x10^3/uL (4.0-11.0) Red Blood Count 2.66 x10^6/uL (3.50-5.40) Hemoglobin 7.0 g/dL (12.0-15.5) Hematocrit 22.4 % (36.0-47.0) Mean Corpuscular Volume 84 fL (79-100) Mean Corpuscular Hemoglobin 26 pg (25-35) Mean Corpuscular Hemoglobin Concent 31 g/dL (31-37) Red Cell Distribution Width 29.8 % (11.5-14.5) Platelet Count 335 x10^3/uL (140-400) Neutrophils (%) (Auto) 93 % (31-73) Lymphocytes (%) (Auto) 2 % (24-48) Monocytes (%) (Auto) 4 % (0-9) Eosinophils (%) (Auto) 0 % (0-3) Basophils (%) (Auto) 0 % (0-3) Neutrophils # (Auto) 13.0 x10^3uL (1.8-7.7) Lymphocytes # (Auto) 0.3 x10^3/uL (1.0-4.8) Monocytes # (Auto) 0.6 x10^3/uL (0.0-1.1) Eosinophils # (Auto) 0.0 x10^3/uL (0.0-0.7) Basophils # (Auto) 0.0 x10^3/uL (0.0-0.2) Glucose (Fingerstick) 114 mg/dL (70-99) 134 mg/dL (70-99) 120 mg/dL (70-99) Test 10/01/17 21:55 10/02/17 05:30 10/02/17 08:07 White Blood Count 15.6 x10^3/uL (4.0-11.0) 14.1 x10^3/uL (4.0-11.0) Red Blood Count 3.06 x10^6/uL (3.50-5.40) 2.83 x10^6/uL (3.50-5.40) Hemoglobin 8.2 g/dL (12.0-15.5) 7.6 g/dL (12.0-15.5) Hematocrit 26.1 % (36.0-47.0) 24.0 % (36.0-47.0) Mean Corpuscular Volume 85 fL (79-100) 85 fL (79-100) Mean Corpuscular Hemoglobin 27 pg (25-35) 27 pg (25-35) Mean Corpuscular Hemoglobin Concent 32 g/dL (31-37) 32 g/dL (31-37) Red Cell Distribution Width 25.1 % (11.5-14.5) 26.1 % (11.5-14.5) Platelet Count 332 x10^3/uL (140-400) 320 x10^3/uL (140-400) Neutrophils (%) (Auto) 89 % (31-73) Lymphocytes (%) (Auto) 4 % (24-48) Monocytes (%) (Auto) 7 % (0-9) Eosinophils (%) (Auto) 0 % (0-3) Basophils (%) (Auto) 0 % (0-3) Neutrophils # (Auto) 12.6 x10^3uL (1.8-7.7) Lymphocytes # (Auto) 0.6 x10^3/uL (1.0-4.8) Monocytes # (Auto) 1.0 x10^3/uL (0.0-1.1) Eosinophils # (Auto) 0.0 x10^3/uL (0.0-0.7) Basophils # (Auto) 0.0 x10^3/uL (0.0-0.2) Sodium Level 147 mmol/L (136-145) Potassium Level 3.5 mmol/L (3.5-5.1) Chloride Level 116 mmol/L (98-107) Carbon Dioxide Level 22 mmol/L (21-32) Anion Gap 9 (6-14) Blood Urea Nitrogen 43 mg/dL (7-20) Creatinine 0.8 mg/dL (0.6-1.0) Estimated GFR (Cockcroft-Gault) 73.2 BUN/Creatinine Ratio 54 (6-20) Glucose Level 118 mg/dL (70-99) Calcium Level 7.9 mg/dL (8.5-10.1) Phosphorus Level 3.3 mg/dL (2.6-4.7) Magnesium Level 2.2 mg/dL (1.8-2.4) Total Bilirubin 0.5 mg/dL (0.2-1.0) Aspartate Amino Transf (AST/SGOT) 19 U/L (15-37) Alanine Aminotransferase (ALT/SGPT) 26 U/L (14-59) Alkaline Phosphatase 39 U/L (46-116) Total Protein 4.2 g/dL (6.4-8.2) Albumin 2.0 g/dL (3.4-5.0) Albumin/Globulin Ratio 0.9 (1.0-1.7) Glucose (Fingerstick) 105 mg/dL (70-99) Medications Active Scripts Medications Dose Route/Sig Max Daily Dose Days Date Category Gabapentin 300 Mg Capsule 300 Mg PO TID 09/18/17 Reported Cymbalta (Duloxetine Hcl) 60 Mg Capsule. 1 Cap PO BID 09/18/17 Reported Hydrochlorothiazide Tablet (Hydrochlorothiazide) 25 Mg Tablet 1 Tab PO DAILY 09/17/17 Reported Xanax (Alprazolam) 1 Mg Tablet 1 Tab PO TID PRN 09/17/17 Reported Comments CXR 10/01 overall improving infiltrates Impression . 1. Acute hypoxic respiratory failure/ARDS/ S/P EXTUBATION, ON RA now 2. Anemia ongoing 3. COPD/ compensated 4. Acute renal failure, stable 5. Sepsis with hypotension POA, resolved 6. S/P Bronch so far BAL negative 7. Critical care induced myopathy 8. bilateral interstitial infiltrates , ? etiology, suspect viral, improved 9. medication induced delirium Plan . PRN OXYGEN SPOKE WITH AT BEDSIDE SPEECH, PT/ DYSPHAGIA DIET DVT PROPH / ONLOVENOX. MONITOR HB ALL CULTURES NEGATIVE ANCA NEGATIVE START DECREASING STEROIDS FURTHER DC ANTIBIOTICS PER ID WILL NEED AGGRESSIVE REHAB JORGE LEDESMA MD Oct 02, 2017 10:35
--- NOTE | 2017-10-02 10:40 | PDOC ---
Infectious Disease Note Subjective Subjective pt is alert but intermitently confused answers few questions No fever or diarrhea ROS ROS GEN: Denies fevers, chills, sweats HEENT: Denies blurred vision, sore throat CV: Denies chest pain RESP: Denies shortness of air, cough GI: Denies n/v/d NEURO: Denies dizziness MSK: Denies weakness, joint pain/swelling Vital Sign Vital Signs Vital Signs Date Time Temp Pulse Resp B/P (MAP) Pulse Ox O2 Delivery O2 Flow Rate FiO2 10/02/17 08:40 95 Room Air 10/02/17 07:15 98.3 69 19 110/62 (78) 98.3 10/01/17 20:00 2.0 Physical Exam PHYSICAL EXAM GENERAL: NAD, Alert HEENT:anicteric NECK: Supple, no JVD, no LN LUNGS: Clear HEART: S1S2, no gallop, no murmur ABD: Soft, NT, no organomegaly, no rebound EXT: trace edema, no cyanosis [employer]: Alert, oriented,confused, no focal neurologic deficit SKIN: No rash IV: ok Labs Lab Laboratory Tests Test 10/01/17 11:30 10/01/17 11:44 10/01/17 17:01 10/01/17 20:33 White Blood Count 13.9 x10^3/uL (4.0-11.0) Red Blood Count 2.66 x10^6/uL (3.50-5.40) Hemoglobin 7.0 g/dL (12.0-15.5) Hematocrit 22.4 % (36.0-47.0) Mean Corpuscular Volume 84 fL (79-100) Mean Corpuscular Hemoglobin 26 pg (25-35) Mean Corpuscular Hemoglobin Concent 31 g/dL (31-37) Red Cell Distribution Width 29.8 % (11.5-14.5) Platelet Count 335 x10^3/uL (140-400) Neutrophils (%) (Auto) 93 % (31-73) Lymphocytes (%) (Auto) 2 % (24-48) Monocytes (%) (Auto) 4 % (0-9) Eosinophils (%) (Auto) 0 % (0-3) Basophils (%) (Auto) 0 % (0-3) Neutrophils # (Auto) 13.0 x10^3uL (1.8-7.7) Lymphocytes # (Auto) 0.3 x10^3/uL (1.0-4.8) Monocytes # (Auto) 0.6 x10^3/uL (0.0-1.1) Eosinophils # (Auto) 0.0 x10^3/uL (0.0-0.7) Basophils # (Auto) 0.0 x10^3/uL (0.0-0.2) Glucose (Fingerstick) 114 mg/dL (70-99) 134 mg/dL (70-99) 120 mg/dL (70-99) Test 10/01/17 21:55 10/02/17 05:30 10/02/17 08:07 White Blood Count 15.6 x10^3/uL (4.0-11.0) 14.1 x10^3/uL (4.0-11.0) Red Blood Count 3.06 x10^6/uL (3.50-5.40) 2.83 x10^6/uL (3.50-5.40) Hemoglobin 8.2 g/dL (12.0-15.5) 7.6 g/dL (12.0-15.5) Hematocrit 26.1 % (36.0-47.0) 24.0 % (36.0-47.0) Mean Corpuscular Volume 85 fL (79-100) 85 fL (79-100) Mean Corpuscular Hemoglobin 27 pg (25-35) 27 pg (25-35) Mean Corpuscular Hemoglobin Concent 32 g/dL (31-37) 32 g/dL (31-37) Red Cell Distribution Width 25.1 % (11.5-14.5) 26.1 % (11.5-14.5) Platelet Count 332 x10^3/uL (140-400) 320 x10^3/uL (140-400) Neutrophils (%) (Auto) 89 % (31-73) Lymphocytes (%) (Auto) 4 % (24-48) Monocytes (%) (Auto) 7 % (0-9) Eosinophils (%) (Auto) 0 % (0-3) Basophils (%) (Auto) 0 % (0-3) Neutrophils # (Auto) 12.6 x10^3uL (1.8-7.7) Lymphocytes # (Auto) 0.6 x10^3/uL (1.0-4.8) Monocytes # (Auto) 1.0 x10^3/uL (0.0-1.1) Eosinophils # (Auto) 0.0 x10^3/uL (0.0-0.7) Basophils # (Auto) 0.0 x10^3/uL (0.0-0.2) Sodium Level 147 mmol/L (136-145) Potassium Level 3.5 mmol/L (3.5-5.1) Chloride Level 116 mmol/L (98-107) Carbon Dioxide Level 22 mmol/L (21-32) Anion Gap 9 (6-14) Blood Urea Nitrogen 43 mg/dL (7-20) Creatinine 0.8 mg/dL (0.6-1.0) Estimated GFR (Cockcroft-Gault) 73.2 BUN/Creatinine Ratio 54 (6-20) Glucose Level 118 mg/dL (70-99) Calcium Level 7.9 mg/dL (8.5-10.1) Phosphorus Level 3.3 mg/dL (2.6-4.7) Magnesium Level 2.2 mg/dL (1.8-2.4) Total Bilirubin 0.5 mg/dL (0.2-1.0) Aspartate Amino Transf (AST/SGOT) 19 U/L (15-37) Alanine Aminotransferase (ALT/SGPT) 26 U/L (14-59) Alkaline Phosphatase 39 U/L (46-116) Total Protein 4.2 g/dL (6.4-8.2) Albumin 2.0 g/dL (3.4-5.0) Albumin/Globulin Ratio 0.9 (1.0-1.7) Glucose (Fingerstick) 105 mg/dL (70-99) Micro reviewed Objective Assessment Acute hypoxic respiratory failure/ARDS stable Pulmonary infiltrates s/p Bronch negative,? viral improved Delirium COPD Anemia Critical care myopathy GEO stable Leucocytosis on steroids H/o Leg wounds with healed scars Influenza vaccine 09/17 - given C. diff neg, 09/28 Plan Plan of Care Discontinue Zosyn, Observe off antibiotics elevated wbc likely sec to steroids cont supportive care JAMIE RODRIGUEZ MD Oct 02, 2017 10:40
[2017-10-02] MEDS: IV DEXTROSE 5% 1,000 ML IV SCH (11:45)
--- NOTE | 2017-10-02 12:32 | PDOC ---
Objective: Objective: Per RN - ongoing emesis (some black, some bilious) and dark stools. Has been NPO since yesterday on PPN, plans for TPN tonight. Vital Signs: Vital Signs Date Time Temp Pulse Resp B/P (MAP) Pulse Ox O2 Delivery O2 Flow Rate FiO2 10/02/17 12:18 97.8 74 21 132/70 97.8 10/02/17 10:50 94 Room Air 10/02/17 08:00 2.0 Labs: Laboratory Tests Test 10/01/17 17:01 10/01/17 20:33 10/01/17 21:55 10/02/17 05:30 Glucose (Fingerstick) 134 mg/dL 120 mg/dL White Blood Count 15.6 x10^3/uL 14.1 x10^3/uL Red Blood Count 3.06 x10^6/uL 2.83 x10^6/uL Hemoglobin 8.2 g/dL 7.6 g/dL Hematocrit 26.1 % 24.0 % Mean Corpuscular Volume 85 fL 85 fL Mean Corpuscular Hemoglobin 27 pg 27 pg Mean Corpuscular Hemoglobin Concent 32 g/dL 32 g/dL Red Cell Distribution Width 25.1 % 26.1 % Platelet Count 332 x10^3/uL 320 x10^3/uL Neutrophils (%) (Auto) 89 % Lymphocytes (%) (Auto) 4 % Monocytes (%) (Auto) 7 % Eosinophils (%) (Auto) 0 % Basophils (%) (Auto) 0 % Neutrophils # (Auto) 12.6 x10^3uL Lymphocytes # (Auto) 0.6 x10^3/uL Monocytes # (Auto) 1.0 x10^3/uL Eosinophils # (Auto) 0.0 x10^3/uL Basophils # (Auto) 0.0 x10^3/uL Sodium Level 147 mmol/L Potassium Level 3.5 mmol/L Chloride Level 116 mmol/L Carbon Dioxide Level 22 mmol/L Anion Gap 9 Blood Urea Nitrogen 43 mg/dL Creatinine 0.8 mg/dL Estimated GFR (Cockcroft-Gault) 73.2 BUN/Creatinine Ratio 54 Glucose Level 118 mg/dL Calcium Level 7.9 mg/dL Phosphorus Level 3.3 mg/dL Magnesium Level 2.2 mg/dL Total Bilirubin 0.5 mg/dL Aspartate Amino Transf (AST/SGOT) 19 U/L Alanine Aminotransferase (ALT/SGPT) 26 U/L Alkaline Phosphatase 39 U/L Total Protein 4.2 g/dL Albumin 2.0 g/dL Albumin/Globulin Ratio 0.9 Test 10/02/17 08:07 10/02/17 11:22 Glucose (Fingerstick) 105 mg/dL 94 mg/dL PE: GEN: up to chair LUNGS: clear HEART: RRR ABD: S/ND/NT NEURO/PSYCH: confused, cheerful, talkative A/P: STUART w/ dark stools some coffee-ground emesis -Hgb improved after transfusion, drifted down today --- another transfusion ongoing -some elevation in BUN (better today) on IV PPI, received IV iron Resp failure - extubated 09/29, now on room air Delirium -- Increased risk of sedation/EGD/reintubation considering recent pulm issues - d/ w . Reviewed w/ Dr. Baer - check bleeding scan. SHAHLA FISHER Oct 02, 2017 12:32
[2017-10-02] MEDS: TPN PER PHARMACY MC PRN (13:09)
--- NOTE | 2017-10-02 13:21 | PDOC ---
PROGRESS NOTES Subjective Subjective She had no complaints. Objective Objective Vital Signs Date Time Temp Pulse Resp B/P (MAP) Pulse Ox O2 Delivery O2 Flow Rate FiO2 10/02/17 12:49 Room Air 10/02/17 12:18 97.8 74 21 132/70 97.8 10/02/17 10:50 94 10/02/17 08:00 2.0 Intake and Output 10/02/17 07:00 Intake Total 680 ml Output Total 1600 ml Balance -920 ml Intake Oral 0 ml Blood Product IV Normal Saline Flush 680 ml Output Urine Total 1550 ml Emesis 50 ml # Bowel Movements 3 Physical Exam Physical Exam She is awake and talking and opens her eyes and she continues with quadriparesis and generalized edema and she is participating with therapy but she requires 2 person maximal assistance for transfers and her physical endurance is low. Assessment Assessment Problems Medical Problems: (1) Dyspnea Status: Acute (2) Hypoalbuminemia Status: Acute (3) Metabolic acidosis Status: Acute (4) Pneumonia Status: Acute Plan Plan of Care To continue present rehab efforts as tolerated and I prefer to wait for rehab transfer to later part of this week untol she can participate more actively with therapy and medically ready. Comment Review of Relevant I have reviewed the following items tha (where applicable) has been applied. Labs Laboratory Tests Test 09/30/17 14:30 10/01/17 03:45 10/01/17 08:25 10/01/17 11:30 Glucose (Fingerstick) 99 mg/dL (70-99) 128 mg/dL (70-99) White Blood Count 14.6 x10^3/uL (4.0-11.0) 13.9 x10^3/uL (4.0-11.0) Red Blood Count 2.85 x10^6/uL (3.50-5.40) 2.66 x10^6/uL (3.50-5.40) Hemoglobin 7.5 g/dL (12.0-15.5) 7.0 g/dL (12.0-15.5) Hematocrit 24.1 % (36.0-47.0) 22.4 % (36.0-47.0) Mean Corpuscular Volume 85 fL (79-100) 84 fL (79-100) Mean Corpuscular Hemoglobin 26 pg (25-35) 26 pg (25-35) Mean Corpuscular Hemoglobin Concent 31 g/dL (31-37) 31 g/dL (31-37) Red Cell Distribution Width 29.3 % (11.5-14.5) 29.8 % (11.5-14.5) Platelet Count 338 x10^3/uL (140-400) 335 x10^3/uL (140-400) Neutrophils (%) (Auto) 93 % (31-73) 93 % (31-73) Lymphocytes (%) (Auto) 3 % (24-48) 2 % (24-48) Monocytes (%) (Auto) 4 % (0-9) 4 % (0-9) Eosinophils (%) (Auto) 0 % (0-3) 0 % (0-3) Basophils (%) (Auto) 1 % (0-3) 0 % (0-3) Neutrophils # (Auto) 13.5 x10^3uL (1.8-7.7) 13.0 x10^3uL (1.8-7.7) Lymphocytes # (Auto) 0.4 x10^3/uL (1.0-4.8) 0.3 x10^3/uL (1.0-4.8) Monocytes # (Auto) 0.6 x10^3/uL (0.0-1.1) 0.6 x10^3/uL (0.0-1.1) Eosinophils # (Auto) 0.0 x10^3/uL (0.0-0.7) 0.0 x10^3/uL (0.0-0.7) Basophils # (Auto) 0.1 x10^3/uL (0.0-0.2) 0.0 x10^3/uL (0.0-0.2) Segmented Neutrophils % 95 % (35-66) Band Neutrophils % 2 % (0-9) Lymphocytes % 1 % (24-48) Monocytes % 2 % (0-10) Platelet Estimate Adequate (ADEQUATE) Sodium Level 145 mmol/L (136-145) Potassium Level 4.2 mmol/L (3.5-5.1) Chloride Level 114 mmol/L (98-107) Carbon Dioxide Level 23 mmol/L (21-32) Anion Gap 8 (6-14) Blood Urea Nitrogen 53 mg/dL (7-20) Creatinine 0.9 mg/dL (0.6-1.0) Estimated GFR (Cockcroft-Gault) 63.9 Glucose Level 135 mg/dL (70-99) Calcium Level 7.8 mg/dL (8.5-10.1) Test 10/01/17 11:44 10/01/17 17:01 10/01/17 20:33 10/01/17 21:55 Glucose (Fingerstick) 114 mg/dL (70-99) 134 mg/dL (70-99) 120 mg/dL (70-99) White Blood Count 15.6 x10^3/uL (4.0-11.0) Red Blood Count 3.06 x10^6/uL (3.50-5.40) Hemoglobin 8.2 g/dL (12.0-15.5) Hematocrit 26.1 % (36.0-47.0) Mean Corpuscular Volume 85 fL (79-100) Mean Corpuscular Hemoglobin 27 pg (25-35) Mean Corpuscular Hemoglobin Concent 32 g/dL (31-37) Red Cell Distribution Width 25.1 % (11.5-14.5) Platelet Count 332 x10^3/uL (140-400) Test 10/02/17 05:30 10/02/17 08:07 10/02/17 11:22 White Blood Count 14.1 x10^3/uL (4.0-11.0) Red Blood Count 2.83 x10^6/uL (3.50-5.40) Hemoglobin 7.6 g/dL (12.0-15.5) Hematocrit 24.0 % (36.0-47.0) Mean Corpuscular Volume 85 fL (79-100) Mean Corpuscular Hemoglobin 27 pg (25-35) Mean Corpuscular Hemoglobin Concent 32 g/dL (31-37) Red Cell Distribution Width 26.1 % (11.5-14.5) Platelet Count 320 x10^3/uL (140-400) Neutrophils (%) (Auto) 89 % (31-73) Lymphocytes (%) (Auto) 4 % (24-48) Monocytes (%) (Auto) 7 % (0-9) Eosinophils (%) (Auto) 0 % (0-3) Basophils (%) (Auto) 0 % (0-3) Neutrophils # (Auto) 12.6 x10^3uL (1.8-7.7) Lymphocytes # (Auto) 0.6 x10^3/uL (1.0-4.8) Monocytes # (Auto) 1.0 x10^3/uL (0.0-1.1) Eosinophils # (Auto) 0.0 x10^3/uL (0.0-0.7) Basophils # (Auto) 0.0 x10^3/uL (0.0-0.2) Sodium Level 147 mmol/L (136-145) Potassium Level 3.5 mmol/L (3.5-5.1) Chloride Level 116 mmol/L (98-107) Carbon Dioxide Level 22 mmol/L (21-32) Anion Gap 9 (6-14) Blood Urea Nitrogen 43 mg/dL (7-20) Creatinine 0.8 mg/dL (0.6-1.0) Estimated GFR (Cockcroft-Gault) 73.2 BUN/Creatinine Ratio 54 (6-20) Glucose Level 118 mg/dL (70-99) Calcium Level 7.9 mg/dL (8.5-10.1) Phosphorus Level 3.3 mg/dL (2.6-4.7) Magnesium Level 2.2 mg/dL (1.8-2.4) Total Bilirubin 0.5 mg/dL (0.2-1.0) Aspartate Amino Transf (AST/SGOT) 19 U/L (15-37) Alanine Aminotransferase (ALT/SGPT) 26 U/L (14-59) Alkaline Phosphatase 39 U/L (46-116) Total Protein 4.2 g/dL (6.4-8.2) Albumin 2.0 g/dL (3.4-5.0) Albumin/Globulin Ratio 0.9 (1.0-1.7) Glucose (Fingerstick) 105 mg/dL (70-99) 94 mg/dL (70-99) Laboratory Tests Test 10/01/17 17:01 10/01/17 20:33 10/01/17 21:55 10/02/17 05:30 Glucose (Fingerstick) 134 mg/dL (70-99) 120 mg/dL (70-99) White Blood Count 15.6 x10^3/uL (4.0-11.0) 14.1 x10^3/uL (4.0-11.0) Red Blood Count 3.06 x10^6/uL (3.50-5.40) 2.83 x10^6/uL (3.50-5.40) Hemoglobin 8.2 g/dL (12.0-15.5) 7.6 g/dL (12.0-15.5) Hematocrit 26.1 % (36.0-47.0) 24.0 % (36.0-47.0) Mean Corpuscular Volume 85 fL (79-100) 85 fL (79-100) Mean Corpuscular Hemoglobin 27 pg (25-35) 27 pg (25-35) Mean Corpuscular Hemoglobin Concent 32 g/dL (31-37) 32 g/dL (31-37) Red Cell Distribution Width 25.1 % (11.5-14.5) 26.1 % (11.5-14.5) Platelet Count 332 x10^3/uL (140-400) 320 x10^3/uL (140-400) Neutrophils (%) (Auto) 89 % (31-73) Lymphocytes (%) (Auto) 4 % (24-48) Monocytes (%) (Auto) 7 % (0-9) Eosinophils (%) (Auto) 0 % (0-3) Basophils (%) (Auto) 0 % (0-3) Neutrophils # (Auto) 12.6 x10^3uL (1.8-7.7) Lymphocytes # (Auto) 0.6 x10^3/uL (1.0-4.8) Monocytes # (Auto) 1.0 x10^3/uL (0.0-1.1) Eosinophils # (Auto) 0.0 x10^3/uL (0.0-0.7) Basophils # (Auto) 0.0 x10^3/uL (0.0-0.2) Sodium Level 147 mmol/L (136-145) Potassium Level 3.5 mmol/L (3.5-5.1) Chloride Level 116 mmol/L (98-107) Carbon Dioxide Level 22 mmol/L (21-32) Anion Gap 9 (6-14) Blood Urea Nitrogen 43 mg/dL (7-20) Creatinine 0.8 mg/dL (0.6-1.0) Estimated GFR (Cockcroft-Gault) 73.2 BUN/Creatinine Ratio 54 (6-20) Glucose Level 118 mg/dL (70-99) Calcium Level 7.9 mg/dL (8.5-10.1) Phosphorus Level 3.3 mg/dL (2.6-4.7) Magnesium Level 2.2 mg/dL (1.8-2.4) Total Bilirubin 0.5 mg/dL (0.2-1.0) Aspartate Amino Transf (AST/SGOT) 19 U/L (15-37) Alanine Aminotransferase (ALT/SGPT) 26 U/L (14-59) Alkaline Phosphatase 39 U/L (46-116) Total Protein 4.2 g/dL (6.4-8.2) Albumin 2.0 g/dL (3.4-5.0) Albumin/Globulin Ratio 0.9 (1.0-1.7) Test 10/02/17 08:07 10/02/17 11:22 Glucose (Fingerstick) 105 mg/dL (70-99) 94 mg/dL (70-99) Microbiology 09/17/17 Blood Culture - Final, Complete NO GROWTH AFTER 5 DAYS 09/20/17 AFB Specimen Processing Tissue - Final, Resulted 09/20/17 Acid Fast Bacilli Culture, Resulted Pending 09/20/17 Gram Stain - Final, Resulted 09/20/17 Fungal Culture - Preliminary, Resulted 09/20/17 Fungal Culture Result 1 - Preliminary, Resulted Medications Current Medications Sodium Chloride 1,000 ml @ 125 mls/hr 1X ONCE IV Last administered on t 15:54; Start 09/17/17 at 15:15; Stop 09/17/17 at 23:14; Status DC Ondansetron HCl (Zofran) 4 mg PRN Q8HRS PRN IV NAUSEA/VOMITING; Start at 16:30; Stop 09/18/17 at 16:29; Status DC Ceftriaxone Sodium 50 ml @ 0 mls/hr 1X ONCE IV Last administered on t 17:33; Start 09/17/17 at 16:45; Stop 09/17/17 at 16:46; Status DC Azithromycin 250 ml @ 250 mls/hr 1X ONCE IV Last administered on 09/17/17 22:38; Start 09/17/17 at 16:30; Stop 09/17/17 at 17:29; Status DC Albuterol/ Ipratropium (Duoneb) 3 ml 1X ONCE NEB Last administered on 17:00; Start 09/17/17 at 16:45; Stop 09/17/17 at 16:46; Status DC Potassium Chloride (Klor-Con) 40 meq 1X ONCE PO Last administered on 16:57; Start 09/17/17 at 16:45; Stop 09/17/17 at 16:46; Status DC Azithromycin (Zithromax) 250 mg DAILY PO Last administered on 09/18/17 10:25 ; Start 09/18/17 at 09:00; Stop 09/19/17 at 10:30; Status DC Ceftriaxone Sodium 1 gm/ Dextrose 50 ml @ 100 mls/hr Q24H IV ; Start 09/17/17 at 17:15; Status UNV Albuterol/ Ipratropium (Duoneb) 3 ml Q4HRS NEB Last administered on 09/30/17 08:11; Start 09/17/17 at 20:00; Stop 09/30/17 at 09:21; Status DC Ceftriaxone Sodium (Rocephin) 1 gm Q24H IVP Last administered on 09/18/17 17: 55; Start 09/18/17 at 16:00; Stop 09/19/17 at 10:30; Status DC Guaifenesin (Robitussin Dm) 10 ml PRN Q6HRS PRN PO COUGH; Start 09/17/17 at 17 :15; Stop 09/30/17 at 09:21; Status DC Sodium Chloride 1,000 ml @ 125 mls/hr 1X ONCE IV Last administered on 17:45; Start 09/17/17 at 17:15; Stop 09/17/17 at 22:12; Status DC Info (Do NOT chart on this placeholder) 1 each 1X ONCE MC ; Start 09/17/17 at 19:00; Stop 09/17/17 at 19:01; Status UNV Influenza Virus Vaccine Quadrival (Fluarix Quad [id number] Syringe) 0.5 ml ONCE ONCE VAX IM Last administered on 09/17/17 21:00; Start 09/17/17 at 21:00; Stop 09/17/17 at 21:01; Status DC Sodium Chloride 1,000 ml @ 130 mls/hr 1X ONCE IV Last administered on 22:31; Start 09/17/17 at 22:30; Stop 09/18/17 at 06:11; Status DC Sodium Bicarbonate 50 meq 1X ONCE IV Last administered on 09/17/17 22:31; Start 09/17/17 at 22:30; Stop 09/17/17 at 22:31; Status DC Alprazolam (Xanax) 1 mg PRN TID PRN PO ANXIETY Last administered on 09/19/17 02:19; Start 09/17/17 at 22:30; Stop 09/30/17 at 09:21; Status DC Furosemide (Lasix) 20 mg 1X ONCE IVP Last administered on 09/18/17 06:24; Start 09/18/17 at 06:30; Stop 09/18/17 at 06:31; Status DC Potassium Chloride (Klor-Con) 40 meq 1X ONCE PO Last administered on 10:25; Start 09/18/17 at 09:00; Stop 09/18/17 at 09:01; Status DC Iron Sucrose 500 mg/Sodium Chloride 275 ml @ 78.571 mls/ hr 1X ONCE IV Last administered on 09/18/17 10:24; Start 09/18/17 at 09:00; Stop 09/18/17 at 12 :29; Status DC Furosemide (Lasix) 20 mg 1X ONCE IVP Last administered on 09/18/17 10:30; Start 09/18/17 at 10:00; Stop 09/18/17 at 10:22; Status DC Pantoprazole Sodium (Protonix) 40 mg DAILYAC PO Last administered on 10:47; Start 09/18/17 at 11:00; Stop 09/19/17 at 13:41; Status DC Furosemide (Lasix) 20 mg 1X ONCE IVP Last administered on 09/18/17 10:47; Start 09/18/17 at 10:45; Stop 09/18/17 at 10:46; Status DC Potassium Chloride (Klor-Con) 40 meq 1X ONCE PO ; Start 09/18/17 at 11:45; Stop 09/18/17 at 11:46; Status DC Oxycodone/ Acetaminophen (Percocet 5/325) 1 tab PRN Q6HRS PRN PO PAIN Last administered on 09/18/17 13:23; Start 09/18/17 at 12:15 Lorazepam (Ativan) 1 mg PRN Q4HRS PRN IV ANXIETY / AGITATION Last administered on 09/18/17 12:25; Start 09/18/17 at 12:15; Stop 09/18/17 at 13:34; Status DC Fentanyl Citrate (Fentanyl 2ml Vial) 50 mcg PRN Q2HR PRN IV PAIN Last administered on 09/19/17 04:09; Start 09/18/17 at 12:15; Stop 09/30/17 at 09 :21; Status DC Lorazepam (Ativan) 2 mg PRN Q4HRS PRN IV ANXIETY / AGITATION Last administered on 09/29/17 05:17; Start 09/18/17 at 13:30; Stop 09/30/17 at 09:21; Status DC Quetiapine Fumarate (SEROquel) 25 mg HS PO Last administered on 09/18/17 21: 03; Start 09/18/17 at 21:00; Stop 09/19/17 at 10:35; Status DC Haloperidol Lactate (Haldol) 5 mg PRN Q12HRS PRN IVP AGITATION; Start at 13:45 Lorazepam (Ativan) 1 mg PRN Q4HRS PRN IV ANXIETY / AGITATION; Start 09/19/17 at 10:15; Stop 09/19/17 at 10:18; Status DC Lorazepam (Ativan) 4 mg 1X ONCE IV ; Start 09/19/17 at 10:30; Stop 09/19/17 at 10:31; Status DC Vancomycin HCl (Vanco Per Pharmacy) 1 each PRN DAILY PRN MC SEE COMMENTS Last administered on 09/23/17 12:36; Start 09/19/17 at 10:30; Stop 09/24/17 at 08 :36; Status DC Piperacillin Sod/ Tazobactam Sod (Zosyn Per Pharmacy) 1 each PRN DAILY PRN MC SEE COMMENTS; Start 09/19/17 at 10:30; Stop 09/24/17 at 08:41; Status DC Vancomycin HCl 2 gm/Dextrose 500 ml @ 250 mls/hr 1X ONCE IV Last administered on 09/19/17 14:53; Start 09/19/17 at 11:00; Stop 09/19/17 at 12 :59; Status DC Piperacillin Sod/ Tazobactam Sod (Zosyn) 3.375 gm Q6HRS IVP Last administered on 10/02/17 04:38; Start 09/19/17 at 11:00 Budesonide (Pulmicort) 0.5 mg RTBID NEB Last administered on 10/02/17 08:38; Start 09/19/17 at 20:00 Budesonide (Pulmicort) 0.5 mg 1X ONCE NEB Last administered on 09/19/17 12: 50; Start 09/19/17 at 10:45; Stop 09/19/17 at 10:46; Status DC Pantoprazole Sodium (PROTONIX VIAL for IV PUSH) 40 mg DAILYAC IVP Last administered on 10/02/17 07:55; Start 09/19/17 at 11:30 Furosemide (Lasix) 40 mg DAILY IVP ; Start 09/19/17 at 11:00; Stop 09/20/17 at 13:20; Status DC Methylprednisolone Sodium Succinate (SOLU-Medrol 125MG VIAL) 125 mg 1X ONCE IV Last administered on 09/19/17 13:23; Start 09/19/17 at 10:45; Stop at 10:46; Status DC Prednisone (Prednisone) 40 mg DAILY PO ; Start 09/19/17 at 11:00; Stop at 09:02; Status DC Methylprednisolone Sodium Succinate (SOLU-Medrol 125MG VIAL) 125 mg Q8HRS IV Last administered on 09/23/17 05:43; Start 09/19/17 at 14:00; Stop 09/23/17 at 10:40; Status DC Midazolam HCl 100 ml @ 0 mls/hr CONT PRN IV SEE I/O RECORD; Start 09/19/17 at 11:00; Stop 09/19/17 at 12:51; Status DC Midazolam HCl (Versed) 5 mg 1X ONCE IV ; Start 09/19/17 at 11:00; Stop at 11:01; Status DC Fentanyl Citrate (Fentanyl 2ml Vial) 50 mcg 1X ONCE IV ; Start 09/19/17 at 11: 00; Stop 09/19/17 at 11:01; Status DC Midazolam HCl 100 ml @ As Directed STK-MED ONCE IV ; Start 09/19/17 at 10:55; Stop 09/19/17 at 10:56; Status DC Midazolam HCl (Versed) 5 mg STK-MED ONCE .ROUTE ; Start 09/19/17 at 10:55; Stop 09/19/17 at 10:56; Status DC Propofol 100 ml @ As Directed STK-MED ONCE IV ; Start 09/19/17 at 10:59; Stop 09/19/17 at 11:00; Status DC Norepinephrine Bitartrate 250 ml @ As Directed STK-MED ONCE IV ; Start at 10:59; Stop 09/19/17 at 11:00; Status DC Furosemide (Lasix) 20 mg 1X ONCE IVP ; Start 09/19/17 at 11:15; Stop at 11:16; Status DC Vecuronium [place] (Norcuron Bolus) 10 mg STK-MED ONCE IV ; Start 09/19/17 at 11:21; Stop 09/19/17 at 11:22; Status DC Fentanyl Citrate 30 ml @ 0 mls/hr CONT PRN IV PROTOCOL Last administered on 15:08; Start 09/19/17 at 11:30; Stop 09/23/17 at 15:24; Status DC Vecuronium [place] (Norcuron Bolus) 6 mg 1X ONCE IV Last administered on 09/19 11:42; Start 09/19/17 at 11:30; Stop 09/19/17 at 11:39; Status DC Propofol 10 ml @ 0 mls/hr 1X ONCE IV Last administered on 09/19/17 11:30; Start 09/19/17 at 11:30; Stop 09/19/17 at 11:39; Status DC Midazolam HCl 100 ml @ 0 mls/hr CONT PRN IV SEE I/O RECORD Last administered on 09/27/17 00:40; Start 09/19/17 at 11:30; Stop 09/30/17 at 09:21; Status DC Norepinephrine Bitartrate 250 ml @ 0 mls/hr CONT PRN IV SEE I/O RECORD Last administered on 09/24/17 05:18; Start 09/19/17 at 11:30; Stop 09/30/17 at 09 :21; Status DC Succinylcholine Chloride (Anectine) 100 mg 1X ONCE IV Last administered on 11:42; Start 09/19/17 at 11:30; Stop 09/19/17 at 11:39; Status DC Sodium Bicarbonate 50 meq 1X ONCE IV Last administered on 09/19/17 13:23; Start 09/19/17 at 12:45; Stop 09/19/17 at 12:46; Status DC Sodium Bicarbonate 50 meq 1X ONCE IV Last administered on 09/19/17 13:23; Start 09/19/17 at 12:45; Stop 09/19/17 at 12:46; Status DC Lidocaine/Sodium Bicarbonate (Buffered Lidocaine 1%) 20 ml STK-MED ONCE IJ ; Start 09/19/17 at 13:34; Stop 09/19/17 at 13:35; Status DC Vecuronium [place] (Norcuron Bolus) 10 mg 1X ONCE IV Last administered on 15:05; Start 09/19/17 at 14:00; Stop 09/19/17 at 14:02; Status DC Lidocaine/Sodium Bicarbonate (Buffered Lidocaine 1%) 3 ml 1X ONCE IJ ; Start 09/19/17 at 14:45; Stop 09/19/17 at 14:46; Status DC Vancomycin HCl 1.25 gm/Dextrose 250 ml @ 166.667 mls/hr Q24H IV Last administered on 09/23/17 17:19; Start 09/20/17 at 15:00; Stop 09/24/17 at 08 :35; Status DC Vancomycin HCl 1 each 1X ONCE MC Last administered on 09/21/17 14:30; Start 09/21/17 at 14:30; Stop 09/21/17 at 14:31; Status DC Azithromycin 500 mg/Sodium Chloride 250 ml @ 250 mls/hr Q24H IV Last administered on 09/23/17 17:19; Start 09/19/17 at 16:30; Stop 09/24/17 at 08 :35; Status DC Norepinephrine Bitartrate (Levophed 8mg/ 250ml Premix Drip) 8 mg STK-MED ONCE IV ; Start 09/19/17 at 11:00; Stop 09/20/17 at 08:44; Status DC Midazolam HCl (Versed) 5 mg STK-MED ONCE .ROUTE ; Start 09/19/17 at 11:00; Stop 09/20/17 at 08:44; Status DC Amino Acids/ Glycerin/ Electrolytes 1,000 ml @ 80 mls/hr [id number] IV Last administered on 09/21/17 01:21; Start 09/20/17 at 10:00; Stop 09/22/17 at 07 :02; Status DC Info 1 each PRN DAILY PRN MC SEE COMMENTS; Start 09/20/17 at 10:00; Stop at 12:14; Status DC Furosemide (Lasix) 20 mg 1X ONCE IVP Last administered on 09/20/17t 10:21; Start 09/20/17 at 10:15; Stop 09/20/17 at 10:18; Status DC Info 1 each PRN DAILY PRN MC SEE COMMENTS; Start 09/20/17 at 11:00; Status UNV Vecuronium [place] (Norcuron Bolus) 10 mg 1X ONCE IV Last administered on 12:03; Start 09/20/17 at 11:15; Stop 09/20/17 at 11:24; Status DC Atropine Sulfate 0.5 mg STK-MED ONCE .ROUTE ; Start 09/20/17 at 11:47; Stop at 11:48; Status DC Epinephrine HCl (EPINEPHrine SYRINGE) 1 mg STK-MED ONCE .ROUTE ; Start at 11:47; Stop 09/20/17 at 11:48; Status DC Atropine Sulfate 0.5 mg STK-MED ONCE .ROUTE ; Start 09/20/17 at 12:00; Stop at 09:11; Status DC Epinephrine HCl (EPINEPHrine SYRINGE) 1 mg STK-MED ONCE .ROUTE ; Start at 12:00; Stop 09/21/17 at 09:11; Status DC Furosemide (Lasix) 20 mg DAILY IVP ; Start 09/21/17 at 11:15; Stop 09/21/17 at 11:20; Status DC Lorazepam (Ativan) 1 mg PRN Q1HR PRN IV ANXIETY / AGITATION Last administered on 09/28/17 17:04; Start 09/21/17 at 11:15; Stop 09/30/17 at 09:21; Status DC Albumin Human 250 ml @ 62.5 mls/hr 1X ONCE IV Last administered on 11:57; Start 09/21/17 at 11:30; Stop 09/21/17 at 15:29; Status DC Albumin Human 250 ml @ 62.5 mls/hr 1X ONCE IV Last administered on 14:29; Start 09/21/17 at 11:30; Stop 09/21/17 at 15:29; Status DC Micafungin Sodium 100 mg/Dextrose 100 ml @ 100 mls/hr Q24H IV Last administered on 09/23/17 13:17; Start 09/21/17 at 12:00; Stop 09/24/17 at 08 :35; Status DC Vecuronium [place] (Norcuron Bolus) 4 mg PRN Q4HRS PRN IV AGITATION; Start at 15:00; Stop 09/30/17 at 09:21; Status DC Dexmedetomidine HCl 200 mcg/ Sodium Chloride 50 ml @ 0 mls/hr CONT PRN IV PER PROTOCOL Last administered on 09/21/17 15:54; Start 09/21/17 at 15:30; Stop 09/30/17 at 09:21; Status DC Sodium Chloride 500 ml @ 500 mls/hr 1X PRN PRN IV SEE COMMENTS; Start at 15:30 Atropine Sulfate 0.5 mg PRN Q5MIN PRN IV SEE COMMENTS; Start 09/21/17 at 15:30 Propofol 100 ml @ 0 mls/hr CONT PRN IV PER PROTOCOL Last administered on 14:35; Start 09/21/17 at 16:45; Stop 09/30/17 at 09:21; Status DC Furosemide (Lasix) 20 mg 1X ONCE IVP Last administered on 09/22/17 09:41; Start 09/22/17 at 10:15; Stop 09/22/17 at 10:16; Status DC Chlorhexidine Gluconate (Peridex) 15 ml BID MM Last administered on 09/29/17 08:07; Start 09/22/17 at 21:00; Stop 09/29/17 at 20:22; Status DC Furosemide (Lasix) 20 mg 1X ONCE IVP Last administered on 09/22/17 17:55; Start 09/22/17 at 18:00; Stop 09/22/17 at 18:01; Status DC Furosemide (Lasix) 20 mg DAILY IVP Last administered on 09/23/17 13:16; Start 09/23/17 at 11:30; Stop 09/24/17 at 08:40; Status DC Methylprednisolone Sodium Succinate (SOLU-Medrol 125MG VIAL) 80 mg Q8HRS IV Last administered on 09/30/17 05:47; Start 09/23/17 at 14:00; Stop 09/30/17 at 09:26; Status DC Fentanyl Citrate 55 ml @ 0 mls/hr CONT PRN PRN IV PER PROTOCOL Last administered on 09/28/17 19:13; Start 09/23/17 at 12:15; Stop 09/30/17 at 09 :21; Status DC Dextrose 1,000 ml @ 25 mls/hr Q24H IV Last administered on 09/28/17 12:59; Start 09/23/17 at 11:45 Enoxaparin Sodium (Lovenox Per Pharmacy Prophylaxis Dosing) 1 each PRN DAILY PRN MC SEE COMMENTS; Start 09/23/17 at 16:30; Stop 09/24/17 at 08:41; Status DC Enoxaparin Sodium (Lovenox 40mg Syringe) 40 mg Q24H SQ Last administered on 17:00; Start 09/23/17 at 17:00 Bisacodyl (Dulcolax Tab) 5 mg PRN DAILY PRN PO CONSTIPATION; Start 09/24/17 at 09:30 Insulin Aspart (NovoLOG) 0-5 UNITS Q6HRS SQ Last administered on 09/29/17 12: 27; Start 09/25/17 at 18:00; Stop 10/01/17 at 02:54; Status DC Dextrose (Dextrose 50%-Water Syringe) 12.5 gm PRN Q15MIN PRN IV SEE COMMENTS; Start 09/25/17 at 12:30; Stop 10/01/17 at 02:54; Status DC Dextrose/Sodium Chloride 1,000 ml @ 75 mls/hr [id number] IV Last administered on 10/02/17 01:23; Start 09/29/17 at 19:00; Stop 10/02/17 at 09:07; Status DC Ondansetron HCl (Zofran) 4 mg PRN Q6HRS PRN IV NAUSEA/VOMITING Last administered on 10/01/17 20:33; Start 09/29/17 at 20:00 Albuterol/ Ipratropium (Duoneb) 3 ml TID NEB Last administered on 10/02/17 12 :48; Start 09/30/17 at 14:00 Methylprednisolone Sodium Succinate (SOLU-Medrol 125MG VIAL) 80 mg Q12HR IV Last administered on 10/01/17 08:56; Start 09/30/17 at 21:00; Stop 10/01/17 at 10:22; Status DC Iron Sucrose 500 mg/Sodium Chloride 275 ml @ 78.571 mls/ hr 1X ONCE IV Last administered on 10/01/17 10:08; Start 10/01/17 at 09:30; Stop 10/01/17 at 12 :59; Status DC Methylprednisolone Sodium Succinate (SOLU-Medrol 40MG VIAL) 40 mg Q12HR IV ; Start 10/01/17 at 21:00; Stop 10/01/17 at 21:00; Status DC Alprazolam (Xanax) 0.25 mg PRN Q8HRS PRN PO ANXIETY / AGITATION; Start at 10:30 Quetiapine Fumarate (SEROquel) 50 mg HS PO ; Start 10/01/17 at 21:00 Methylprednisolone Sodium Succinate (SOLU-Medrol 40MG VIAL) 40 mg QHS IV Last administered on 10/01/17 20:32; Start 10/01/17 at 21:00; Stop 10/02/17 at 10 :36; Status DC Saliva Substitute (Biotene Moisturizing Mouth) 2 spray PRN Q15MIN PRN PO DRY MOUTH; Start 10/02/17 at 09:15 Info 1 each PRN DAILY PRN MC SEE COMMENTS Last administered on 10/02/17 13:09 ; Start 10/02/17 at 09:15 Amino Acids/ Glycerin/ Electrolytes 1,000 ml @ 100 mls/hr Q10H IV Last administered on 10/02/17t 09:57; Start 10/02/17 at 10:00; Stop 10/02/17 at 19 :59 Methylprednisolone Sodium Succinate (SOLU-Medrol 40MG VIAL) 20 mg QHS IV ; Start 10/02/17 at 21:00 Sodium Acetate 40 meq/Potassium Chloride 50 meq/ Potassium Phosphate 13.6 mmol/ Magnesium Sulfate 10 meq/ Calcium Gluconate 10 meq/ Multivitamins 10 ml/Chromium / Copper/Manganese/ Seleni/Zn 1 ml/ Total Parenteral Nutrition/Amino Acids/ Dextrose/ Fat Emulsion Intravenous 1,512 ml @ 63 mls/hr TPN CONT IV ; Start 10/02/17 at 22:00; Stop 10/03/17 at 21:59 Active Scripts Active Reported Gabapentin 300 Mg Capsule 300 Mg PO TID Cymbalta (Duloxetine Hcl) 60 Mg Capsule. 1 Cap PO BID Hydrochlorothiazide Tablet (Hydrochlorothiazide) 25 Mg Tablet 1 Tab PO DAILY Xanax (Alprazolam) 1 Mg Tablet 1 Tab PO TID PRN Vitals/I & O Vital Sign - Last 24 Hours 10/01/17 10/01/17 10/01/17 10/01/17 13:31 14:12 14:27 15:00 Temp 98.2 99.0 99.0 98.2 99.0 99.0 Pulse 84 81 81 Resp 24 22 22 B/P (MAP) 134/80 134/81 134/81 (98) Pulse Ox 91 93 O2 Delivery Room Air Room Air 10/01/17 10/01/17 10/01/17 10/01/17 15:21 16:27 16:30 19:55 Temp 98.1 98.9 98.9 97.9 98.1 98.9 98.9 97.9 Pulse 88 100 97 76 Resp 23 23 22 16 B/P (MAP) 139/82 144/88 142/86 131/82 (98) Pulse Ox 93 O2 Delivery Room Air 10/01/17 10/01/17 10/01/17 10/01/17 19:58 20:00 20:00 23:48 Temp 98.2 98.2 Pulse 82 Resp 16 B/P (MAP) 145/87 (106) Pulse Ox 97 97 95 O2 Delivery Room Air Room Air Nasal Cannula Room Air O2 Flow Rate 2.0 10/02/17 10/02/17 10/02/17 10/02/17 03:48 07:15 08:00 08:40 Temp 98.8 98.3 98.8 98.3 Pulse 86 69 Resp 16 19 B/P (MAP) 132/75 (94) 110/62 (78) Pulse Ox 95 96 95 O2 Delivery Room Air Room Air Room Air Room Air O2 Flow Rate 2.0 10/02/17 10/02/17 10/02/17 10/02/17 10:50 12:00 12:00 12:18 Temp 98.0 98.1 98.1 97.8 98.0 98.1 98.1 97.8 Pulse 85 73 73 74 Resp 18 21 22 21 B/P (MAP) 132/76 (94) 132/72 132/72 132/70 Pulse Ox 94 O2 Delivery Room Air 10/02/17 12:49 O2 Delivery Room Air Intake and Output 10/01/17 10/01/17 10/02/17 15:00 23:00 07:00 Intake Total 330 ml 350 ml 0 ml Output Total 900 ml 700 ml Balance -570 ml 350 ml -700 ml YELITZA MARROQUIN MD Oct 02, 2017 13:21
--- NOTE | 2017-10-02 16:51 | PDOC ---
PROGRESS NOTES Subjective Subjective HPI - f/u of Iron deficiency anemia. ROS - had dark stools Objective Objective Vital Signs Date Time Temp Pulse Resp B/P (MAP) Pulse Ox O2 Delivery O2 Flow Rate FiO2 10/02/17 14:32 98.7 91 18 125/70 98.7 10/02/17 14:31 97 Room Air 10/02/17 08:00 2.0 Intake and Output 10/02/17 07:00 Intake Total 680 ml Output Total 1600 ml Balance -920 ml Intake Oral 0 ml Blood Product IV Normal Saline Flush 680 ml Output Urine Total 1550 ml Emesis 50 ml # Bowel Movements 3 Physical Exam General: Alert, No acute distress Lungs: Clear to auscultation Assessment Assessment Problems Medical Problems: (1) Dyspnea Status: Acute (2) Hypoalbuminemia Status: Acute (3) Metabolic acidosis Status: Acute (4) Pneumonia Status: Acute IMPRESSION AND PLAN: 1. Iron deficiency anemia. There is no evidence of blood loss. She received Venofer 500 mg intravenous on 09/18/2017. I will continue to monitor hemoglobin and transfuse as needed. Hemoglobin improved to 7.7 after transfusion. Then worse at 6.6 on 09/19/17. s/p 1 unit 09/19/17. Hb worse at 7.5 on 10/01/17 and 7.6 on 10/02/17. She had black stools, GI following. s/p second dose of venofer 500 mg IV 10/01/17. 2. Leukocytosis, reactive from underlying pneumonia. Management per Pulmonary Medicine. WBC 14.1 3. Pneumonia/dyspnea - Improved. Comment Review of Relevant I have reviewed the following items tha (where applicable) has been applied. Labs Laboratory Tests Test 10/01/17 03:45 10/01/17 08:25 10/01/17 11:30 10/01/17 11:44 White Blood Count 14.6 x10^3/uL (4.0-11.0) 13.9 x10^3/uL (4.0-11.0) Red Blood Count 2.85 x10^6/uL (3.50-5.40) 2.66 x10^6/uL (3.50-5.40) Hemoglobin 7.5 g/dL (12.0-15.5) 7.0 g/dL (12.0-15.5) Hematocrit 24.1 % (36.0-47.0) 22.4 % (36.0-47.0) Mean Corpuscular Volume 85 fL (79-100) 84 fL (79-100) Mean Corpuscular Hemoglobin 26 pg (25-35) 26 pg (25-35) Mean Corpuscular Hemoglobin Concent 31 g/dL (31-37) 31 g/dL (31-37) Red Cell Distribution Width 29.3 % (11.5-14.5) 29.8 % (11.5-14.5) Platelet Count 338 x10^3/uL (140-400) 335 x10^3/uL (140-400) Neutrophils (%) (Auto) 93 % (31-73) 93 % (31-73) Lymphocytes (%) (Auto) 3 % (24-48) 2 % (24-48) Monocytes (%) (Auto) 4 % (0-9) 4 % (0-9) Eosinophils (%) (Auto) 0 % (0-3) 0 % (0-3) Basophils (%) (Auto) 1 % (0-3) 0 % (0-3) Neutrophils # (Auto) 13.5 x10^3uL (1.8-7.7) 13.0 x10^3uL (1.8-7.7) Lymphocytes # (Auto) 0.4 x10^3/uL (1.0-4.8) 0.3 x10^3/uL (1.0-4.8) Monocytes # (Auto) 0.6 x10^3/uL (0.0-1.1) 0.6 x10^3/uL (0.0-1.1) Eosinophils # (Auto) 0.0 x10^3/uL (0.0-0.7) 0.0 x10^3/uL (0.0-0.7) Basophils # (Auto) 0.1 x10^3/uL (0.0-0.2) 0.0 x10^3/uL (0.0-0.2) Segmented Neutrophils % 95 % (35-66) Band Neutrophils % 2 % (0-9) Lymphocytes % 1 % (24-48) Monocytes % 2 % (0-10) Platelet Estimate Adequate (ADEQUATE) Sodium Level 145 mmol/L (136-145) Potassium Level 4.2 mmol/L (3.5-5.1) Chloride Level 114 mmol/L (98-107) Carbon Dioxide Level 23 mmol/L (21-32) Anion Gap 8 (6-14) Blood Urea Nitrogen 53 mg/dL (7-20) Creatinine 0.9 mg/dL (0.6-1.0) Estimated GFR (Cockcroft-Gault) 63.9 Glucose Level 135 mg/dL (70-99) Calcium Level 7.8 mg/dL (8.5-10.1) Glucose (Fingerstick) 128 mg/dL (70-99) 114 mg/dL (70-99) Test 10/01/17 17:01 10/01/17 20:33 10/01/17 21:55 10/02/17 05:30 Glucose (Fingerstick) 134 mg/dL (70-99) 120 mg/dL (70-99) White Blood Count 15.6 x10^3/uL (4.0-11.0) 14.1 x10^3/uL (4.0-11.0) Red Blood Count 3.06 x10^6/uL (3.50-5.40) 2.83 x10^6/uL (3.50-5.40) Hemoglobin 8.2 g/dL (12.0-15.5) 7.6 g/dL (12.0-15.5) Hematocrit 26.1 % (36.0-47.0) 24.0 % (36.0-47.0) Mean Corpuscular Volume 85 fL (79-100) 85 fL (79-100) Mean Corpuscular Hemoglobin 27 pg (25-35) 27 pg (25-35) Mean Corpuscular Hemoglobin Concent 32 g/dL (31-37) 32 g/dL (31-37) Red Cell Distribution Width 25.1 % (11.5-14.5) 26.1 % (11.5-14.5) Platelet Count 332 x10^3/uL (140-400) 320 x10^3/uL (140-400) Neutrophils (%) (Auto) 89 % (31-73) Lymphocytes (%) (Auto) 4 % (24-48) Monocytes (%) (Auto) 7 % (0-9) Eosinophils (%) (Auto) 0 % (0-3) Basophils (%) (Auto) 0 % (0-3) Neutrophils # (Auto) 12.6 x10^3uL (1.8-7.7) Lymphocytes # (Auto) 0.6 x10^3/uL (1.0-4.8) Monocytes # (Auto) 1.0 x10^3/uL (0.0-1.1) Eosinophils # (Auto) 0.0 x10^3/uL (0.0-0.7) Basophils # (Auto) 0.0 x10^3/uL (0.0-0.2) Sodium Level 147 mmol/L (136-145) Potassium Level 3.5 mmol/L (3.5-5.1) Chloride Level 116 mmol/L (98-107) Carbon Dioxide Level 22 mmol/L (21-32) Anion Gap 9 (6-14) Blood Urea Nitrogen 43 mg/dL (7-20) Creatinine 0.8 mg/dL (0.6-1.0) Estimated GFR (Cockcroft-Gault) 73.2 BUN/Creatinine Ratio 54 (6-20) Glucose Level 118 mg/dL (70-99) Calcium Level 7.9 mg/dL (8.5-10.1) Phosphorus Level 3.3 mg/dL (2.6-4.7) Magnesium Level 2.2 mg/dL (1.8-2.4) Total Bilirubin 0.5 mg/dL (0.2-1.0) Aspartate Amino Transf (AST/SGOT) 19 U/L (15-37) Alanine Aminotransferase (ALT/SGPT) 26 U/L (14-59) Alkaline Phosphatase 39 U/L (46-116) Total Protein 4.2 g/dL (6.4-8.2) Albumin 2.0 g/dL (3.4-5.0) Albumin/Globulin Ratio 0.9 (1.0-1.7) Test 10/02/17 08:07 10/02/17 11:22 Glucose (Fingerstick) 105 mg/dL (70-99) 94 mg/dL (70-99) Laboratory Tests Test 10/01/17 17:01 10/01/17 20:33 10/01/17 21:55 10/02/17 05:30 Glucose (Fingerstick) 134 mg/dL (70-99) 120 mg/dL (70-99) White Blood Count 15.6 x10^3/uL (4.0-11.0) 14.1 x10^3/uL (4.0-11.0) Red Blood Count 3.06 x10^6/uL (3.50-5.40) 2.83 x10^6/uL (3.50-5.40) Hemoglobin 8.2 g/dL (12.0-15.5) 7.6 g/dL (12.0-15.5) Hematocrit 26.1 % (36.0-47.0) 24.0 % (36.0-47.0) Mean Corpuscular Volume 85 fL (79-100) 85 fL (79-100) Mean Corpuscular Hemoglobin 27 pg (25-35) 27 pg (25-35) Mean Corpuscular Hemoglobin Concent 32 g/dL (31-37) 32 g/dL (31-37) Red Cell Distribution Width 25.1 % (11.5-14.5) 26.1 % (11.5-14.5) Platelet Count 332 x10^3/uL (140-400) 320 x10^3/uL (140-400) Neutrophils (%) (Auto) 89 % (31-73) Lymphocytes (%) (Auto) 4 % (24-48) Monocytes (%) (Auto) 7 % (0-9) Eosinophils (%) (Auto) 0 % (0-3) Basophils (%) (Auto) 0 % (0-3) Neutrophils # (Auto) 12.6 x10^3uL (1.8-7.7) Lymphocytes # (Auto) 0.6 x10^3/uL (1.0-4.8) Monocytes # (Auto) 1.0 x10^3/uL (0.0-1.1) Eosinophils # (Auto) 0.0 x10^3/uL (0.0-0.7) Basophils # (Auto) 0.0 x10^3/uL (0.0-0.2) Sodium Level 147 mmol/L (136-145) Potassium Level 3.5 mmol/L (3.5-5.1) Chloride Level 116 mmol/L (98-107) Carbon Dioxide Level 22 mmol/L (21-32) Anion Gap 9 (6-14) Blood Urea Nitrogen 43 mg/dL (7-20) Creatinine 0.8 mg/dL (0.6-1.0) Estimated GFR (Cockcroft-Gault) 73.2 BUN/Creatinine Ratio 54 (6-20) Glucose Level 118 mg/dL (70-99) Calcium Level 7.9 mg/dL (8.5-10.1) Phosphorus Level 3.3 mg/dL (2.6-4.7) Magnesium Level 2.2 mg/dL (1.8-2.4) Total Bilirubin 0.5 mg/dL (0.2-1.0) Aspartate Amino Transf (AST/SGOT) 19 U/L (15-37) Alanine Aminotransferase (ALT/SGPT) 26 U/L (14-59) Alkaline Phosphatase 39 U/L (46-116) Total Protein 4.2 g/dL (6.4-8.2) Albumin 2.0 g/dL (3.4-5.0) Albumin/Globulin Ratio 0.9 (1.0-1.7) Test 10/02/17 08:07 10/02/17 11:22 Glucose (Fingerstick) 105 mg/dL (70-99) 94 mg/dL (70-99) Microbiology 09/17/17 Blood Culture - Final, Complete NO GROWTH AFTER 5 DAYS 09/20/17 AFB Specimen Processing Tissue - Final, Resulted 09/20/17 Acid Fast Bacilli Culture, Resulted Pending 09/20/17 Gram Stain - Final, Resulted 09/20/17 Fungal Culture - Preliminary, Resulted 09/20/17 Fungal Culture Result 1 - Preliminary, Resulted Medications Current Medications Sodium Chloride 1,000 ml @ 125 mls/hr 1X ONCE IV Last administered on t 15:54; Start 09/17/17 at 15:15; Stop 09/17/17 at 23:14; Status DC Ondansetron HCl (Zofran) 4 mg PRN Q8HRS PRN IV NAUSEA/VOMITING; Start at 16:30; Stop 09/18/17 at 16:29; Status DC Ceftriaxone Sodium 50 ml @ 0 mls/hr 1X ONCE IV Last administered on 17:33; Start 09/17/17 at 16:45; Stop 09/17/17 at 16:46; Status DC Azithromycin 250 ml @ 250 mls/hr 1X ONCE IV Last administered on 09/17/17 22:38; Start 09/17/17 at 16:30; Stop 09/17/17 at 17:29; Status DC Albuterol/ Ipratropium (Duoneb) 3 ml 1X ONCE NEB Last administered on 17:00; Start 09/17/17 at 16:45; Stop 09/17/17 at 16:46; Status DC Potassium Chloride (Klor-Con) 40 meq 1X ONCE PO Last administered on 16:57; Start 09/17/17 at 16:45; Stop 09/17/17 at 16:46; Status DC Azithromycin (Zithromax) 250 mg DAILY PO Last administered on 09/18/17 10:25 ; Start 09/18/17 at 09:00; Stop 09/19/17 at 10:30; Status DC Ceftriaxone Sodium 1 gm/ Dextrose 50 ml @ 100 mls/hr Q24H IV ; Start 09/17/17 at 17:15; Status UNV Albuterol/ Ipratropium (Duoneb) 3 ml Q4HRS NEB Last administered on 09/30/17 08:11; Start 09/17/17 at 20:00; Stop 09/30/17 at 09:21; Status DC Ceftriaxone Sodium (Rocephin) 1 gm Q24H IVP Last administered on 09/18/17 17: 55; Start 09/18/17 at 16:00; Stop 09/19/17 at 10:30; Status DC Guaifenesin (Robitussin Dm) 10 ml PRN Q6HRS PRN PO COUGH; Start 09/17/17 at 17 :15; Stop 09/30/17 at 09:21; Status DC Sodium Chloride 1,000 ml @ 125 mls/hr 1X ONCE IV Last administered on 17:45; Start 09/17/17 at 17:15; Stop 09/17/17 at 22:12; Status DC Info (Do NOT chart on this placeholder) 1 each 1X ONCE MC ; Start 09/17/17 at 19:00; Stop 09/17/17 at 19:01; Status UNV Influenza Virus Vaccine Quadrival (Fluarix Quad [id number] Syringe) 0.5 ml ONCE ONCE VAX IM Last administered on 09/17/17 21:00; Start 09/17/17 at 21:00; Stop 09/17/17 at 21:01; Status DC Sodium Chloride 1,000 ml @ 130 mls/hr 1X ONCE IV Last administered on 22:31; Start 09/17/17 at 22:30; Stop 09/18/17 at 06:11; Status DC Sodium Bicarbonate 50 meq 1X ONCE IV Last administered on 09/17/17 22:31; Start 09/17/17 at 22:30; Stop 09/17/17 at 22:31; Status DC Alprazolam (Xanax) 1 mg PRN TID PRN PO ANXIETY Last administered on 09/19/17 02:19; Start 09/17/17 at 22:30; Stop 09/30/17 at 09:21; Status DC Furosemide (Lasix) 20 mg 1X ONCE IVP Last administered on 09/18/17 06:24; Start 09/18/17 at 06:30; Stop 09/18/17 at 06:31; Status DC Potassium Chloride (Klor-Con) 40 meq 1X ONCE PO Last administered on 10:25; Start 09/18/17 at 09:00; Stop 09/18/17 at 09:01; Status DC Iron Sucrose 500 mg/Sodium Chloride 275 ml @ 78.571 mls/ hr 1X ONCE IV Last administered on 09/18/17 10:24; Start 09/18/17 at 09:00; Stop 09/18/17 at 12 :29; Status DC Furosemide (Lasix) 20 mg 1X ONCE IVP Last administered on 09/18/17 10:30; Start 09/18/17 at 10:00; Stop 09/18/17 at 10:22; Status DC Pantoprazole Sodium (Protonix) 40 mg DAILYAC PO Last administered on 10:47; Start 09/18/17 at 11:00; Stop 09/19/17 at 13:41; Status DC Furosemide (Lasix) 20 mg 1X ONCE IVP Last administered on 09/18/17 10:47; Start 09/18/17 at 10:45; Stop 09/18/17 at 10:46; Status DC Potassium Chloride (Klor-Con) 40 meq 1X ONCE PO ; Start 09/18/17 at 11:45; Stop 09/18/17 at 11:46; Status DC Oxycodone/ Acetaminophen (Percocet 5/325) 1 tab PRN Q6HRS PRN PO PAIN Last administered on 09/18/17 13:23; Start 09/18/17 at 12:15 Lorazepam (Ativan) 1 mg PRN Q4HRS PRN IV ANXIETY / AGITATION Last administered on 09/18/17 12:25; Start 09/18/17 at 12:15; Stop 09/18/17 at 13:34; Status DC Fentanyl Citrate (Fentanyl 2ml Vial) 50 mcg PRN Q2HR PRN IV PAIN Last administered on 09/19/17 04:09; Start 09/18/17 at 12:15; Stop 09/30/17 at 09 :21; Status DC Lorazepam (Ativan) 2 mg PRN Q4HRS PRN IV ANXIETY / AGITATION Last administered on 09/29/17 05:17; Start 09/18/17 at 13:30; Stop 09/30/17 at 09:21; Status DC Quetiapine Fumarate (SEROquel) 25 mg HS PO Last administered on 09/18/17 21: 03; Start 09/18/17 at 21:00; Stop 09/19/17 at 10:35; Status DC Haloperidol Lactate (Haldol) 5 mg PRN Q12HRS PRN IVP AGITATION; Start at 13:45 Lorazepam (Ativan) 1 mg PRN Q4HRS PRN IV ANXIETY / AGITATION; Start 09/19/17 at 10:15; Stop 09/19/17 at 10:18; Status DC Lorazepam (Ativan) 4 mg 1X ONCE IV ; Start 09/19/17 at 10:30; Stop 09/19/17 at 10:31; Status DC Vancomycin HCl (Vanco Per Pharmacy) 1 each PRN DAILY PRN MC SEE COMMENTS Last administered on 09/23/17 12:36; Start 09/19/17 at 10:30; Stop 09/24/17 at 08 :36; Status DC Piperacillin Sod/ Tazobactam Sod (Zosyn Per Pharmacy) 1 each PRN DAILY PRN MC SEE COMMENTS; Start 09/19/17 at 10:30; Stop 09/24/17 at 08:41; Status DC Vancomycin HCl 2 gm/Dextrose 500 ml @ 250 mls/hr 1X ONCE IV Last administered on 09/19/17 14:53; Start 09/19/17 at 11:00; Stop 09/19/17 at 12 :59; Status DC Piperacillin Sod/ Tazobactam Sod (Zosyn) 3.375 gm Q6HRS IVP Last administered on 10/02/17 13:58; Start 09/19/17 at 11:00 Budesonide (Pulmicort) 0.5 mg RTBID NEB Last administered on 10/02/17 08:38; Start 09/19/17 at 20:00 Budesonide (Pulmicort) 0.5 mg 1X ONCE NEB Last administered on 09/19/17 12: 50; Start 09/19/17 at 10:45; Stop 09/19/17 at 10:46; Status DC Pantoprazole Sodium (PROTONIX VIAL for IV PUSH) 40 mg DAILYAC IVP Last administered on 10/02/17 07:55; Start 09/19/17 at 11:30 Furosemide (Lasix) 40 mg DAILY IVP ; Start 09/19/17 at 11:00; Stop 09/20/17 at 13:20; Status DC Methylprednisolone Sodium Succinate (SOLU-Medrol 125MG VIAL) 125 mg 1X ONCE IV Last administered on 09/19/17 13:23; Start 09/19/17 at 10:45; Stop at 10:46; Status DC Prednisone (Prednisone) 40 mg DAILY PO ; Start 09/19/17 at 11:00; Stop at 09:02; Status DC Methylprednisolone Sodium Succinate (SOLU-Medrol 125MG VIAL) 125 mg Q8HRS IV Last administered on 09/23/17 05:43; Start 09/19/17 at 14:00; Stop 09/23/17 at 10:40; Status DC Midazolam HCl 100 ml @ 0 mls/hr CONT PRN IV SEE I/O RECORD; Start 09/19/17 at 11:00; Stop 09/19/17 at 12:51; Status DC Midazolam HCl (Versed) 5 mg 1X ONCE IV ; Start 09/19/17 at 11:00; Stop at 11:01; Status DC Fentanyl Citrate (Fentanyl 2ml Vial) 50 mcg 1X ONCE IV ; Start 09/19/17 at 11: 00; Stop 09/19/17 at 11:01; Status DC Midazolam HCl 100 ml @ As Directed STK-MED ONCE IV ; Start 09/19/17 at 10:55; Stop 09/19/17 at 10:56; Status DC Midazolam HCl (Versed) 5 mg STK-MED ONCE .ROUTE ; Start 09/19/17 at 10:55; Stop 09/19/17 at 10:56; Status DC Propofol 100 ml @ As Directed STK-MED ONCE IV ; Start 09/19/17 at 10:59; Stop 09/19/17 at 11:00; Status DC Norepinephrine Bitartrate 250 ml @ As Directed STK-MED ONCE IV ; Start at 10:59; Stop 09/19/17 at 11:00; Status DC Furosemide (Lasix) 20 mg 1X ONCE IVP ; Start 09/19/17 at 11:15; Stop at 11:16; Status DC Vecuronium [place] (Norcuron Bolus) 10 mg STK-MED ONCE IV ; Start 09/19/17 at 11:21; Stop 09/19/17 at 11:22; Status DC Fentanyl Citrate 30 ml @ 0 mls/hr CONT PRN IV PROTOCOL Last administered on 15:08; Start 09/19/17 at 11:30; Stop 09/23/17 at 15:24; Status DC Vecuronium [place] (Norcuron Bolus) 6 mg 1X ONCE IV Last administered on 09/19 11:42; Start 09/19/17 at 11:30; Stop 09/19/17 at 11:39; Status DC Propofol 10 ml @ 0 mls/hr 1X ONCE IV Last administered on 09/19/17 11:30; Start 09/19/17 at 11:30; Stop 09/19/17 at 11:39; Status DC Midazolam HCl 100 ml @ 0 mls/hr CONT PRN IV SEE I/O RECORD Last administered on 09/27/17 00:40; Start 09/19/17 at 11:30; Stop 09/30/17 at 09:21; Status DC Norepinephrine Bitartrate 250 ml @ 0 mls/hr CONT PRN IV SEE I/O RECORD Last administered on 09/24/17 05:18; Start 09/19/17 at 11:30; Stop 09/30/17 at 09 :21; Status DC Succinylcholine Chloride (Anectine) 100 mg 1X ONCE IV Last administered on 11:42; Start 09/19/17 at 11:30; Stop 09/19/17 at 11:39; Status DC Sodium Bicarbonate 50 meq 1X ONCE IV Last administered on 09/19/17 13:23; Start 09/19/17 at 12:45; Stop 09/19/17 at 12:46; Status DC Sodium Bicarbonate 50 meq 1X ONCE IV Last administered on 09/19/17 13:23; Start 09/19/17 at 12:45; Stop 09/19/17 at 12:46; Status DC Lidocaine/Sodium Bicarbonate (Buffered Lidocaine 1%) 20 ml STK-MED ONCE IJ ; Start 09/19/17 at 13:34; Stop 09/19/17 at 13:35; Status DC Vecuronium [place] (Norcuron Bolus) 10 mg 1X ONCE IV Last administered on 15:05; Start 09/19/17 at 14:00; Stop 09/19/17 at 14:02; Status DC Lidocaine/Sodium Bicarbonate (Buffered Lidocaine 1%) 3 ml 1X ONCE IJ ; Start 09/19/17 at 14:45; Stop 09/19/17 at 14:46; Status DC Vancomycin HCl 1.25 gm/Dextrose 250 ml @ 166.667 mls/hr Q24H IV Last administered on 09/23/17 17:19; Start 09/20/17 at 15:00; Stop 09/24/17 at 08 :35; Status DC Vancomycin HCl 1 each 1X ONCE MC Last administered on 09/21/17 14:30; Start 09/21/17 at 14:30; Stop 09/21/17 at 14:31; Status DC Azithromycin 500 mg/Sodium Chloride 250 ml @ 250 mls/hr Q24H IV Last administered on 09/23/17 17:19; Start 09/19/17 at 16:30; Stop 09/24/17 at 08 :35; Status DC Norepinephrine Bitartrate (Levophed 8mg/ 250ml Premix Drip) 8 mg STK-MED ONCE IV ; Start 09/19/17 at 11:00; Stop 09/20/17 at 08:44; Status DC Midazolam HCl (Versed) 5 mg STK-MED ONCE .ROUTE ; Start 09/19/17 at 11:00; Stop 09/20/17 at 08:44; Status DC Amino Acids/ Glycerin/ Electrolytes 1,000 ml @ 80 mls/hr [id number] IV Last administered on 09/21/17 01:21; Start 09/20/17 at 10:00; Stop 09/22/17 at 07 :02; Status DC Info 1 each PRN DAILY PRN MC SEE COMMENTS; Start 09/20/17 at 10:00; Stop at 12:14; Status DC Furosemide (Lasix) 20 mg 1X ONCE IVP Last administered on 09/20/17 10:21; Start 09/20/17 at 10:15; Stop 09/20/17 at 10:18; Status DC Info 1 each PRN DAILY PRN MC SEE COMMENTS; Start 09/20/17 at 11:00; Status UNV Vecuronium [place] (Norcuron Bolus) 10 mg 1X ONCE IV Last administered on 12:03; Start 09/20/17 at 11:15; Stop 09/20/17 at 11:24; Status DC Atropine Sulfate 0.5 mg STK-MED ONCE .ROUTE ; Start 09/20/17 at 11:47; Stop at 11:48; Status DC Epinephrine HCl (EPINEPHrine SYRINGE) 1 mg STK-MED ONCE .ROUTE ; Start at 11:47; Stop 09/20/17 at 11:48; Status DC Atropine Sulfate 0.5 mg STK-MED ONCE .ROUTE ; Start 09/20/17 at 12:00; Stop at 09:11; Status DC Epinephrine HCl (EPINEPHrine SYRINGE) 1 mg STK-MED ONCE .ROUTE ; Start at 12:00; Stop 09/21/17 at 09:11; Status DC Furosemide (Lasix) 20 mg DAILY IVP ; Start 09/21/17 at 11:15; Stop 09/21/17 at 11:20; Status DC Lorazepam (Ativan) 1 mg PRN Q1HR PRN IV ANXIETY / AGITATION Last administered on 09/28/17 17:04; Start 09/21/17 at 11:15; Stop 09/30/17 at 09:21; Status DC Albumin Human 250 ml @ 62.5 mls/hr 1X ONCE IV Last administered on 11:57; Start 09/21/17 at 11:30; Stop 09/21/17 at 15:29; Status DC Albumin Human 250 ml @ 62.5 mls/hr 1X ONCE IV Last administered on 14:29; Start 09/21/17 at 11:30; Stop 09/21/17 at 15:29; Status DC Micafungin Sodium 100 mg/Dextrose 100 ml @ 100 mls/hr Q24H IV Last administered on 09/23/17 13:17; Start 09/21/17 at 12:00; Stop 09/24/17 at 08 :35; Status DC Vecuronium [place] (Norcuron Bolus) 4 mg PRN Q4HRS PRN IV AGITATION; Start at 15:00; Stop 09/30/17 at 09:21; Status DC Dexmedetomidine HCl 200 mcg/ Sodium Chloride 50 ml @ 0 mls/hr CONT PRN IV PER PROTOCOL Last administered on 09/21/17 15:54; Start 09/21/17 at 15:30; Stop 09/30/17 at 09:21; Status DC Sodium Chloride 500 ml @ 500 mls/hr 1X PRN PRN IV SEE COMMENTS; Start at 15:30 Atropine Sulfate 0.5 mg PRN Q5MIN PRN IV SEE COMMENTS; Start 09/21/17 at 15:30 Propofol 100 ml @ 0 mls/hr CONT PRN IV PER PROTOCOL Last administered on 14:35; Start 09/21/17 at 16:45; Stop 09/30/17 at 09:21; Status DC Furosemide (Lasix) 20 mg 1X ONCE IVP Last administered on 09/22/17 09:41; Start 09/22/17 at 10:15; Stop 09/22/17 at 10:16; Status DC Chlorhexidine Gluconate (Peridex) 15 ml BID MM Last administered on 09/29/17 08:07; Start 09/22/17 at 21:00; Stop 09/29/17 at 20:22; Status DC Furosemide (Lasix) 20 mg 1X ONCE IVP Last administered on 09/22/17 17:55; Start 09/22/17 at 18:00; Stop 09/22/17 at 18:01; Status DC Furosemide (Lasix) 20 mg DAILY IVP Last administered on 09/23/17 13:16; Start 09/23/17 at 11:30; Stop 09/24/17 at 08:40; Status DC Methylprednisolone Sodium Succinate (SOLU-Medrol 125MG VIAL) 80 mg Q8HRS IV Last administered on 09/30/17 05:47; Start 09/23/17 at 14:00; Stop 09/30/17 at 09:26; Status DC Fentanyl Citrate 55 ml @ 0 mls/hr CONT PRN PRN IV PER PROTOCOL Last administered on 09/28/17 19:13; Start 09/23/17 at 12:15; Stop 09/30/17 at 09 :21; Status DC Dextrose 1,000 ml @ 25 mls/hr Q24H IV Last administered on 09/28/17 12:59; Start 09/23/17 at 11:45 Enoxaparin Sodium (Lovenox Per Pharmacy Prophylaxis Dosing) 1 each PRN DAILY PRN MC SEE COMMENTS; Start 09/23/17 at 16:30; Stop 09/24/17 at 08:41; Status DC Enoxaparin Sodium (Lovenox 40mg Syringe) 40 mg Q24H SQ Last administered on 17:00; Start 09/23/17 at 17:00 Bisacodyl (Dulcolax Tab) 5 mg PRN DAILY PRN PO CONSTIPATION; Start 09/24/17 at 09:30 Insulin Aspart (NovoLOG) 0-5 UNITS Q6HRS SQ Last administered on 09/29/17 12: 27; Start 09/25/17 at 18:00; Stop 10/01/17 at 02:54; Status DC Dextrose (Dextrose 50%-Water Syringe) 12.5 gm PRN Q15MIN PRN IV SEE COMMENTS; Start 09/25/17 at 12:30; Stop 10/01/17 at 02:54; Status DC Dextrose/Sodium Chloride 1,000 ml @ 75 mls/hr [id number] IV Last administered on 10/02/17 01:23; Start 09/29/17 at 19:00; Stop 10/02/17 at 09:07; Status DC Ondansetron HCl (Zofran) 4 mg PRN Q6HRS PRN IV NAUSEA/VOMITING Last administered on 10/01/17 20:33; Start 09/29/17 at 20:00 Albuterol/ Ipratropium (Duoneb) 3 ml TID NEB Last administered on 10/02/17 12 :48; Start 09/30/17 at 14:00 Methylprednisolone Sodium Succinate (SOLU-Medrol 125MG VIAL) 80 mg Q12HR IV Last administered on 10/01/17 08:56; Start 09/30/17 at 21:00; Stop 10/01/17 at 10:22; Status DC Iron Sucrose 500 mg/Sodium Chloride 275 ml @ 78.571 mls/ hr 1X ONCE IV Last administered on 10/01/17 10:08; Start 10/01/17 at 09:30; Stop 10/01/17 at 12 :59; Status DC Methylprednisolone Sodium Succinate (SOLU-Medrol 40MG VIAL) 40 mg Q12HR IV ; Start 10/01/17 at 21:00; Stop 10/01/17 at 21:00; Status DC Alprazolam (Xanax) 0.25 mg PRN Q8HRS PRN PO ANXIETY / AGITATION; Start at 10:30 Quetiapine Fumarate (SEROquel) 50 mg HS PO ; Start 10/01/17 at 21:00 Methylprednisolone Sodium Succinate (SOLU-Medrol 40MG VIAL) 40 mg QHS IV Last administered on 10/01/17 20:32; Start 10/01/17 at 21:00; Stop 10/02/17 at 10 :36; Status DC Saliva Substitute (Biotene Moisturizing Mouth) 2 spray PRN Q15MIN PRN PO DRY MOUTH; Start 10/02/17 at 09:15 Info 1 each PRN DAILY PRN MC SEE COMMENTS Last administered on 11/28/17at 13:09 ; Start 10/02/17 at 09:15 Amino Acids/ Glycerin/ Electrolytes 1,000 ml @ 100 mls/hr Q10H IV Last administered on 10/02/17 09:57; Start 10/02/17 at 10:00; Stop 10/02/17 at 19 :59 Methylprednisolone Sodium Succinate (SOLU-Medrol 40MG VIAL) 20 mg QHS IV ; Start 10/02/17 at 21:00 Sodium Acetate 40 meq/Potassium Chloride 50 meq/ Potassium Phosphate 13.6 mmol/ Magnesium Sulfate 10 meq/ Calcium Gluconate 10 meq/ Multivitamins 10 ml/Chromium / Copper/Manganese/ Seleni/Zn 1 ml/ Total Parenteral Nutrition/Amino Acids/ Dextrose/ Fat Emulsion Intravenous 1,512 ml @ 63 mls/hr TPN CONT IV ; Start 10/02/17 at 22:00; Stop 10/03/17 at 21:59 Active Scripts Active Reported Gabapentin 300 Mg Capsule 300 Mg PO TID Cymbalta (Duloxetine Hcl) 60 Mg Capsule. 1 Cap PO BID Hydrochlorothiazide Tablet (Hydrochlorothiazide) 25 Mg Tablet 1 Tab PO DAILY Xanax (Alprazolam) 1 Mg Tablet 1 Tab PO TID PRN Vitals/I & O Vital Sign - Last 24 Hours 10/01/17 10/01/17 10/01/17 10/01/17 19:55 19:58 20:00 20:00 Temp 97.9 97.9 Pulse 76 Resp 16 B/P (MAP) 131/82 (98) Pulse Ox 93 97 97 O2 Delivery Room Air Room Air Room Air Nasal Cannula O2 Flow Rate 2.0 10/01/17 10/02/17 10/02/17 10/02/17 23:48 03:48 07:15 08:00 Temp 98.2 98.8 98.3 98.2 98.8 98.3 Pulse 82 86 69 Resp 16 16 19 B/P (MAP) 145/87 (106) 132/75 (94) 110/62 (78) Pulse Ox 95 95 96 O2 Delivery Room Air Room Air Room Air Room Air O2 Flow Rate 2.0 10/02/17 10/02/17 10/02/17 10/02/17 08:40 10:50 12:00 12:00 Temp 98.0 98.1 98.1 98.0 98.1 98.1 Pulse 85 73 73 Resp 18 21 22 B/P (MAP) 132/76 (94) 132/72 132/72 Pulse Ox 95 94 O2 Delivery Room Air Room Air 10/02/17 10/02/17 10/02/17 10/02/17 12:18 12:49 13:15 14:31 Temp 97.8 98.1 98.7 97.8 98.1 98.7 Pulse 74 72 91 Resp 21 18 19 B/P (MAP) 132/70 133/66 125/70 (88) Pulse Ox 97 O2 Delivery Room Air Room Air 10/02/17 14:32 Temp 98.7 98.7 Pulse 91 Resp 18 B/P (MAP) 125/70 Intake and Output 10/01/17 10/01/17 10/02/17 15:00 23:00 07:00 Intake Total 330 ml 350 ml 0 ml Output Total 900 ml 700 ml Balance -570 ml 350 ml -700 ml ELLA ORTEGA MD Oct 02, 2017 16:50
--- NOTE | 2017-10-02 16:54 | RAD ---
GI BLEED Clinical Indication: dark stools, anemia Comparison: None. Technique: 33.0 mCi tagged red blood cells were administered for a nuclear medicine GI bleed study. Sequential scintigraphic images were obtained for a total of 60 minutes. Findings: No abnormal foci of radiotracer uptake to indicate active GI bleed. Normal uptake is seen within the vascular system, spleen, and liver. IMPRESSION: No scintigraphic evidence of active GI bleed.
[2017-10-02] MEDS: ENOXAPARIN 40 MG/0.4 ML SYRINGE. SQ SCH (17:14)
[2017-10-02 17:24] LABS: HEMATOCRIT 28.7 % (36.0-47.0); HEMOGLOBIN 9.1 g/dL (12.0-15.5); RED BLOOD COUNT 3.34 x10^6/uL (3.50-5.40); RED CELL DISTRIBUTION WIDTH 22.5 % (11.5-14.5); WHITE BLOOD COUNT 18.3 x10^3/uL (4.0-11.0)
[2017-10-02] MEDS ORDERED: methylPREDNISolone SOD SUCC PF 40 MG/ML VIAL. IV SCH (21:00)
[2017-10-02] MEDS: QUEtiapine 25 MG TABLET. PO SCH (21:00)
[2017-10-02] MEDS ORDERED: TOTAL PARENTERAL NUTRITION IV SCH ×10 (22:00)
[2017-10-02] MEDS ORDERED: AMINO ACIDS IV SCH ×10 (22:00)
[2017-10-02] MEDS ORDERED: DEXTROSE 70% IV SCH ×10 (22:00)
[2017-10-02] MEDS ORDERED: [UNRECOGNIZED DRUG - OTHER] IV SCH ×10 (22:00)
[2017-10-03 03:28] VITALS: BP 139/88
[2017-10-03] MEDS: IPRATRPIUM/ALBUTEROL 0.5/2.5MG 3 ML NEBU. NEB SCH ×3 (05:54→19:06)
[2017-10-03] MEDS: BUDESONIDE 0.5 MG/2 ML NEBU. NEB SCH ×2 (05:55→19:05)
[2017-10-03] MEDS: MORPHINE SULFATE 2 MG/ML DISP.SYRIN. IV PRN ×3 (06:09→20:12)
[2017-10-03 07:00] VITALS: BP 136/75
[2017-10-03] MEDS: PANTOPRAZOLE IV PUSH 40 MG VIAL. IVP SCH (08:23)
--- NOTE | 2017-10-03 09:05 | PDOC ---
PROGRESS NOTES Subjective Subjective HPI - Iron deficiency anemia. ROS - no bleed Objective Objective Vital Signs Date Time Temp Pulse Resp B/P (MAP) Pulse Ox O2 Delivery O2 Flow Rate FiO2 10/03/17 07:00 97.8 93 18 136/75 (95) 94 Room Air 97.8 10/02/17 08:00 2.0 Intake and Output 10/03/17 07:00 Intake Total 1201 ml Output Total 1450 ml Balance -249 ml Intake Oral 0 ml IV Total 441 ml Blood Product IV Normal Saline Flush 760 ml Output Urine Total 1400 ml Emesis 50 ml # Bowel Movements 5 Physical Exam Heart: Normal S1, Normal S2 General: No acute distress Lungs: Clear to auscultation Assessment Assessment Problems Medical Problems: (1) Dyspnea Status: Acute (2) Hypoalbuminemia Status: Acute (3) Metabolic acidosis Status: Acute (4) Pneumonia Status: Acute IMPRESSION AND PLAN: 1. Iron deficiency anemia. There is no evidence of blood loss. She received Venofer 500 mg intravenous on 09/18/2017. I will continue to monitor hemoglobin and transfuse as needed. Hemoglobin improved to 7.7 after transfusion. Then worse at 6.6 on 09/19/17. s/p 1 unit 09/19/17. Hb worse at 7.5 on 10/01/17 and 7.6 on 10/02/17, s/p PRBC. Hb better at 9.1 She had black stools, GI following. s/p second dose of venofer 500 mg IV 10/01/17. Bleeding scan 10/02/17 is normal. 2. Leukocytosis, reactive from underlying pneumonia. Management per Pulmonary Medicine. WBC 18.3 3. Pneumonia/dyspnea - Improved. Comment Review of Relevant I have reviewed the following items tha (where applicable) has been applied. Labs Laboratory Tests Test 10/01/17 11:30 10/01/17 11:44 10/01/17 17:01 10/01/17 20:33 White Blood Count 13.9 x10^3/uL (4.0-11.0) Red Blood Count 2.66 x10^6/uL (3.50-5.40) Hemoglobin 7.0 g/dL (12.0-15.5) Hematocrit 22.4 % (36.0-47.0) Mean Corpuscular Volume 84 fL (79-100) Mean Corpuscular Hemoglobin 26 pg (25-35) Mean Corpuscular Hemoglobin Concent 31 g/dL (31-37) Red Cell Distribution Width 29.8 % (11.5-14.5) Platelet Count 335 x10^3/uL (140-400) Neutrophils (%) (Auto) 93 % (31-73) Lymphocytes (%) (Auto) 2 % (24-48) Monocytes (%) (Auto) 4 % (0-9) Eosinophils (%) (Auto) 0 % (0-3) Basophils (%) (Auto) 0 % (0-3) Neutrophils # (Auto) 13.0 x10^3uL (1.8-7.7) Lymphocytes # (Auto) 0.3 x10^3/uL (1.0-4.8) Monocytes # (Auto) 0.6 x10^3/uL (0.0-1.1) Eosinophils # (Auto) 0.0 x10^3/uL (0.0-0.7) Basophils # (Auto) 0.0 x10^3/uL (0.0-0.2) Glucose (Fingerstick) 114 mg/dL (70-99) 134 mg/dL (70-99) 120 mg/dL (70-99) Test 10/01/17 21:55 10/02/17 05:30 10/02/17 08:07 10/02/17 11:22 White Blood Count 15.6 x10^3/uL (4.0-11.0) 14.1 x10^3/uL (4.0-11.0) Red Blood Count 3.06 x10^6/uL (3.50-5.40) 2.83 x10^6/uL (3.50-5.40) Hemoglobin 8.2 g/dL (12.0-15.5) 7.6 g/dL (12.0-15.5) Hematocrit 26.1 % (36.0-47.0) 24.0 % (36.0-47.0) Mean Corpuscular Volume 85 fL (79-100) 85 fL (79-100) Mean Corpuscular Hemoglobin 27 pg (25-35) 27 pg (25-35) Mean Corpuscular Hemoglobin Concent 32 g/dL (31-37) 32 g/dL (31-37) Red Cell Distribution Width 25.1 % (11.5-14.5) 26.1 % (11.5-14.5) Platelet Count 332 x10^3/uL (140-400) 320 x10^3/uL (140-400) Neutrophils (%) (Auto) 89 % (31-73) Lymphocytes (%) (Auto) 4 % (24-48) Monocytes (%) (Auto) 7 % (0-9) Eosinophils (%) (Auto) 0 % (0-3) Basophils (%) (Auto) 0 % (0-3) Neutrophils # (Auto) 12.6 x10^3uL (1.8-7.7) Lymphocytes # (Auto) 0.6 x10^3/uL (1.0-4.8) Monocytes # (Auto) 1.0 x10^3/uL (0.0-1.1) Eosinophils # (Auto) 0.0 x10^3/uL (0.0-0.7) Basophils # (Auto) 0.0 x10^3/uL (0.0-0.2) Sodium Level 147 mmol/L (136-145) Potassium Level 3.5 mmol/L (3.5-5.1) Chloride Level 116 mmol/L (98-107) Carbon Dioxide Level 22 mmol/L (21-32) Anion Gap 9 (6-14) Blood Urea Nitrogen 43 mg/dL (7-20) Creatinine 0.8 mg/dL (0.6-1.0) Estimated GFR (Cockcroft-Gault) 73.2 BUN/Creatinine Ratio 54 (6-20) Glucose Level 118 mg/dL (70-99) Calcium Level 7.9 mg/dL (8.5-10.1) Phosphorus Level 3.3 mg/dL (2.6-4.7) Magnesium Level 2.2 mg/dL (1.8-2.4) Total Bilirubin 0.5 mg/dL (0.2-1.0) Aspartate Amino Transf (AST/SGOT) 19 U/L (15-37) Alanine Aminotransferase (ALT/SGPT) 26 U/L (14-59) Alkaline Phosphatase 39 U/L (46-116) Total Protein 4.2 g/dL (6.4-8.2) Albumin 2.0 g/dL (3.4-5.0) Albumin/Globulin Ratio 0.9 (1.0-1.7) Glucose (Fingerstick) 105 mg/dL (70-99) 94 mg/dL (70-99) Test 10/02/17 16:57 10/02/17 17:20 Glucose (Fingerstick) 97 mg/dL (70-99) White Blood Count 18.3 x10^3/uL (4.0-11.0) Red Blood Count 3.34 x10^6/uL (3.50-5.40) Hemoglobin 9.1 g/dL (12.0-15.5) Hematocrit 28.7 % (36.0-47.0) Mean Corpuscular Volume 86 fL (79-100) Mean Corpuscular Hemoglobin 27 pg (25-35) Mean Corpuscular Hemoglobin Concent 32 g/dL (31-37) Red Cell Distribution Width 22.5 % (11.5-14.5) Platelet Count 329 x10^3/uL (140-400) Laboratory Tests Test 10/02/17 11:22 10/02/17 16:57 10/02/17 17:20 Glucose (Fingerstick) 94 mg/dL (70-99) 97 mg/dL (70-99) White Blood Count 18.3 x10^3/uL (4.0-11.0) Red Blood Count 3.34 x10^6/uL (3.50-5.40) Hemoglobin 9.1 g/dL (12.0-15.5) Hematocrit 28.7 % (36.0-47.0) Mean Corpuscular Volume 86 fL (79-100) Mean Corpuscular Hemoglobin 27 pg (25-35) Mean Corpuscular Hemoglobin Concent 32 g/dL (31-37) Red Cell Distribution Width 22.5 % (11.5-14.5) Platelet Count 329 x10^3/uL (140-400) Microbiology 09/17/17 Blood Culture - Final, Complete NO GROWTH AFTER 5 DAYS 09/20/17 AFB Specimen Processing Tissue - Final, Resulted 09/20/17 Acid Fast Bacilli Culture, Resulted Pending 09/20/17 Gram Stain - Final, Resulted 09/20/17 Fungal Culture - Preliminary, Resulted 09/20/17 Fungal Culture Result 1 - Preliminary, Resulted Medications Current Medications Sodium Chloride 1,000 ml @ 125 mls/hr 1X ONCE IV Last administered on 15:54; Start 09/17/17 at 15:15; Stop 09/17/17 at 23:14; Status DC Ondansetron HCl (Zofran) 4 mg PRN Q8HRS PRN IV NAUSEA/VOMITING; Start at 16:30; Stop 09/18/17 at 16:29; Status DC Ceftriaxone Sodium 50 ml @ 0 mls/hr 1X ONCE IV Last administered on 17:33; Start 09/17/17 at 16:45; Stop 09/17/17 at 16:46; Status DC Azithromycin 250 ml @ 250 mls/hr 1X ONCE IV Last administered on 09/17/17 22:38; Start 09/17/17 at 16:30; Stop 09/17/17 at 17:29; Status DC Albuterol/ Ipratropium (Duoneb) 3 ml 1X ONCE NEB Last administered on 17:00; Start 09/17/17 at 16:45; Stop 09/17/17 at 16:46; Status DC Potassium Chloride (Klor-Con) 40 meq 1X ONCE PO Last administered on 16:57; Start 09/17/17 at 16:45; Stop 09/17/17 at 16:46; Status DC Azithromycin (Zithromax) 250 mg DAILY PO Last administered on 09/18/17 10:25 ; Start 09/18/17 at 09:00; Stop 09/19/17 at 10:30; Status DC Ceftriaxone Sodium 1 gm/ Dextrose 50 ml @ 100 mls/hr Q24H IV ; Start 09/17/17 at 17:15; Status UNV Albuterol/ Ipratropium (Duoneb) 3 ml Q4HRS NEB Last administered on 09/30/17 08:11; Start 09/17/17 at 20:00; Stop 09/30/17 at 09:21; Status DC Ceftriaxone Sodium (Rocephin) 1 gm Q24H IVP Last administered on 09/18/17 17: 55; Start 09/18/17 at 16:00; Stop 09/19/17 at 10:30; Status DC Guaifenesin (Robitussin Dm) 10 ml PRN Q6HRS PRN PO COUGH; Start 09/17/17 at 17 :15; Stop 09/30/17 at 09:21; Status DC Sodium Chloride 1,000 ml @ 125 mls/hr 1X ONCE IV Last administered on 17:45; Start 09/17/17 at 17:15; Stop 09/17/17 at 22:12; Status DC Info (Do NOT chart on this placeholder) 1 each 1X ONCE MC ; Start 09/17/17 at 19:00; Stop 09/17/17 at 19:01; Status UNV Influenza Virus Vaccine Quadrival (Fluarix Quad 7502-1572 Syringe) 0.5 ml ONCE ONCE VAX IM Last administered on 09/17/17 21:00; Start 09/17/17 at 21:00; Stop 09/17/17 at 21:01; Status DC Sodium Chloride 1,000 ml @ 130 mls/hr 1X ONCE IV Last administered on 22:31; Start 09/17/17 at 22:30; Stop 09/18/17 at 06:11; Status DC Sodium Bicarbonate 50 meq 1X ONCE IV Last administered on 09/17/17 22:31; Start 09/17/17 at 22:30; Stop 09/17/17 at 22:31; Status DC Alprazolam (Xanax) 1 mg PRN TID PRN PO ANXIETY Last administered on 09/19/17 02:19; Start 09/17/17 at 22:30; Stop 09/30/17 at 09:21; Status DC Furosemide (Lasix) 20 mg 1X ONCE IVP Last administered on 09/18/17 06:24; Start 09/18/17 at 06:30; Stop 09/18/17 at 06:31; Status DC Potassium Chloride (Klor-Con) 40 meq 1X ONCE PO Last administered on 10:25; Start 09/18/17 at 09:00; Stop 09/18/17 at 09:01; Status DC Iron Sucrose 500 mg/Sodium Chloride 275 ml @ 78.571 mls/ hr 1X ONCE IV Last administered on 09/18/17 10:24; Start 09/18/17 at 09:00; Stop 09/18/17 at 12 :29; Status DC Furosemide (Lasix) 20 mg 1X ONCE IVP Last administered on 09/18/17 10:30; Start 09/18/17 at 10:00; Stop 09/18/17 at 10:22; Status DC Pantoprazole Sodium (Protonix) 40 mg DAILYAC PO Last administered on 10:47; Start 09/18/17 at 11:00; Stop 09/19/17 at 13:41; Status DC Furosemide (Lasix) 20 mg 1X ONCE IVP Last administered on 09/18/17 10:47; Start 09/18/17 at 10:45; Stop 09/18/17 at 10:46; Status DC Potassium Chloride (Klor-Con) 40 meq 1X ONCE PO ; Start 09/18/17 at 11:45; Stop 09/18/17 at 11:46; Status DC Oxycodone/ Acetaminophen (Percocet 5/325) 1 tab PRN Q6HRS PRN PO PAIN Last administered on 09/18/17 13:23; Start 09/18/17 at 12:15 Lorazepam (Ativan) 1 mg PRN Q4HRS PRN IV ANXIETY / AGITATION Last administered on 09/18/17 12:25; Start 09/18/17 at 12:15; Stop 09/18/17 at 13:34; Status DC Fentanyl Citrate (Fentanyl 2ml Vial) 50 mcg PRN Q2HR PRN IV PAIN Last administered on 09/19/17 04:09; Start 09/18/17 at 12:15; Stop 09/30/17 at 09 :21; Status DC Lorazepam (Ativan) 2 mg PRN Q4HRS PRN IV ANXIETY / AGITATION Last administered on 09/29/17 05:17; Start 09/18/17 at 13:30; Stop 09/30/17 at 09:21; Status DC Quetiapine Fumarate (SEROquel) 25 mg HS PO Last administered on 09/18/17 21: 03; Start 09/18/17 at 21:00; Stop 09/19/17 at 10:35; Status DC Haloperidol Lactate (Haldol) 5 mg PRN Q12HRS PRN IVP AGITATION; Start at 13:45 Lorazepam (Ativan) 1 mg PRN Q4HRS PRN IV ANXIETY / AGITATION; Start 09/19/17 at 10:15; Stop 09/19/17 at 10:18; Status DC Lorazepam (Ativan) 4 mg 1X ONCE IV ; Start 09/19/17 at 10:30; Stop 09/19/17 at 10:31; Status DC Vancomycin HCl (Vanco Per Pharmacy) 1 each PRN DAILY PRN MC SEE COMMENTS Last administered on 09/23/17 12:36; Start 09/19/17 at 10:30; Stop 09/24/17 at 08 :36; Status DC Piperacillin Sod/ Tazobactam Sod (Zosyn Per Pharmacy) 1 each PRN DAILY PRN MC SEE COMMENTS; Start 09/19/17 at 10:30; Stop 09/24/17 at 08:41; Status DC Vancomycin HCl 2 gm/Dextrose 500 ml @ 250 mls/hr 1X ONCE IV Last administered on 09/19/17 14:53; Start 09/19/17 at 11:00; Stop 09/19/17 at 12 :59; Status DC Piperacillin Sod/ Tazobactam Sod (Zosyn) 3.375 gm Q6HRS IVP Last administered on 10/02/17 17:13; Start 09/19/17 at 11:00; Stop 10/02/17 at 19:14; Status DC Budesonide (Pulmicort) 0.5 mg RTBID NEB Last administered on 10/03/17 05:55; Start 09/19/17 at 20:00 Budesonide (Pulmicort) 0.5 mg 1X ONCE NEB Last administered on 09/19/17 12: 50; Start 09/19/17 at 10:45; Stop 09/19/17 at 10:46; Status DC Pantoprazole Sodium (PROTONIX VIAL for IV PUSH) 40 mg DAILYAC IVP Last administered on 10/03/17 08:23; Start 09/19/17 at 11:30 Furosemide (Lasix) 40 mg DAILY IVP ; Start 09/19/17 at 11:00; Stop 09/20/17 at 13:20; Status DC Methylprednisolone Sodium Succinate (SOLU-Medrol 125MG VIAL) 125 mg 1X ONCE IV Last administered on 09/19/17t 13:23; Start 09/19/17 at 10:45; Stop at 10:46; Status DC Prednisone (Prednisone) 40 mg DAILY PO ; Start 09/19/17 at 11:00; Stop at 09:02; Status DC Methylprednisolone Sodium Succinate (SOLU-Medrol 125MG VIAL) 125 mg Q8HRS IV Last administered on 09/23/17t 05:43; Start 09/19/17 at 14:00; Stop 09/23/17 at 10:40; Status DC Midazolam HCl 100 ml @ 0 mls/hr CONT PRN IV SEE I/O RECORD; Start 09/19/17 at 11:00; Stop 09/19/17 at 12:51; Status DC Midazolam HCl (Versed) 5 mg 1X ONCE IV ; Start 09/19/17 at 11:00; Stop at 11:01; Status DC Fentanyl Citrate (Fentanyl 2ml Vial) 50 mcg 1X ONCE IV ; Start 09/19/17 at 11: 00; Stop 09/19/17 at 11:01; Status DC Midazolam HCl 100 ml @ As Directed STK-MED ONCE IV ; Start 09/19/17 at 10:55; Stop 09/19/17 at 10:56; Status DC Midazolam HCl (Versed) 5 mg STK-MED ONCE .ROUTE ; Start 09/19/17 at 10:55; Stop 09/19/17 at 10:56; Status DC Propofol 100 ml @ As Directed STK-MED ONCE IV ; Start 09/19/17 at 10:59; Stop 09/19/17 at 11:00; Status DC Norepinephrine Bitartrate 250 ml @ As Directed STK-MED ONCE IV ; Start at 10:59; Stop 09/19/17 at 11:00; Status DC Furosemide (Lasix) 20 mg 1X ONCE IVP ; Start 09/19/17 at 11:15; Stop at 11:16; Status DC Vecuronium [place] (Norcuron Bolus) 10 mg STK-MED ONCE IV ; Start 09/19/17 at 11:21; Stop 09/19/17 at 11:22; Status DC Fentanyl Citrate 30 ml @ 0 mls/hr CONT PRN IV PROTOCOL Last administered on 15:08; Start 09/19/17 at 11:30; Stop 09/23/17 at 15:24; Status DC Vecuronium [place] (Norcuron Bolus) 6 mg 1X ONCE IV Last administered on 09/19 11:42; Start 09/19/17 at 11:30; Stop 09/19/17 at 11:39; Status DC Propofol 10 ml @ 0 mls/hr 1X ONCE IV Last administered on 09/19/17 11:30; Start 09/19/17 at 11:30; Stop 09/19/17 at 11:39; Status DC Midazolam HCl 100 ml @ 0 mls/hr CONT PRN IV SEE I/O RECORD Last administered on 09/27/17 00:40; Start 09/19/17 at 11:30; Stop 09/30/17 at 09:21; Status DC Norepinephrine Bitartrate 250 ml @ 0 mls/hr CONT PRN IV SEE I/O RECORD Last administered on 09/24/17 05:18; Start 09/19/17 at 11:30; Stop 09/30/17 at 09 :21; Status DC Succinylcholine Chloride (Anectine) 100 mg 1X ONCE IV Last administered on 11:42; Start 09/19/17 at 11:30; Stop 09/19/17 at 11:39; Status DC Sodium Bicarbonate 50 meq 1X ONCE IV Last administered on 09/19/17 13:23; Start 09/19/17 at 12:45; Stop 09/19/17 at 12:46; Status DC Sodium Bicarbonate 50 meq 1X ONCE IV Last administered on 09/19/17 13:23; Start 09/19/17 at 12:45; Stop 09/19/17 at 12:46; Status DC Lidocaine/Sodium Bicarbonate (Buffered Lidocaine 1%) 20 ml STK-MED ONCE IJ ; Start 09/19/17 at 13:34; Stop 09/19/17 at 13:35; Status DC Vecuronium [place] (Norcuron Bolus) 10 mg 1X ONCE IV Last administered on 15:05; Start 09/19/17 at 14:00; Stop 09/19/17 at 14:02; Status DC Lidocaine/Sodium Bicarbonate (Buffered Lidocaine 1%) 3 ml 1X ONCE IJ ; Start 09/19/17 at 14:45; Stop 09/19/17 at 14:46; Status DC Vancomycin HCl 1.25 gm/Dextrose 250 ml @ 166.667 mls/hr Q24H IV Last administered on 09/23/17 17:19; Start 09/20/17 at 15:00; Stop 09/24/17 at 08 :35; Status DC Vancomycin HCl 1 each 1X ONCE MC Last administered on 09/21/17 14:30; Start 09/21/17 at 14:30; Stop 09/21/17 at 14:31; Status DC Azithromycin 500 mg/Sodium Chloride 250 ml @ 250 mls/hr Q24H IV Last administered on 09/23/17 17:19; Start 09/19/17 at 16:30; Stop 09/24/17 at 08 :35; Status DC Norepinephrine Bitartrate (Levophed 8mg/ 250ml Premix Drip) 8 mg STK-MED ONCE IV ; Start 09/19/17 at 11:00; Stop 09/20/17 at 08:44; Status DC Midazolam HCl (Versed) 5 mg STK-MED ONCE .ROUTE ; Start 09/19/17 at 11:00; Stop 09/20/17 at 08:44; Status DC Amino Acids/ Glycerin/ Electrolytes 1,000 ml @ 80 mls/hr [id number] IV Last administered on 09/21/17 01:21; Start 09/20/17 at 10:00; Stop 09/22/17 at 07 :02; Status DC Info 1 each PRN DAILY PRN MC SEE COMMENTS; Start 09/20/17 at 10:00; Stop at 12:14; Status DC Furosemide (Lasix) 20 mg 1X ONCE IVP Last administered on 09/20/17 10:21; Start 09/20/17 at 10:15; Stop 09/20/17 at 10:18; Status DC Info 1 each PRN DAILY PRN MC SEE COMMENTS; Start 09/20/17 at 11:00; Status UNV Vecuronium [place] (Norcuron Bolus) 10 mg 1X ONCE IV Last administered on 12:03; Start 09/20/17 at 11:15; Stop 09/20/17 at 11:24; Status DC Atropine Sulfate 0.5 mg STK-MED ONCE .ROUTE ; Start 09/20/17 at 11:47; Stop at 11:48; Status DC Epinephrine HCl (EPINEPHrine SYRINGE) 1 mg STK-MED ONCE .ROUTE ; Start at 11:47; Stop 09/20/17 at 11:48; Status DC Atropine Sulfate 0.5 mg STK-MED ONCE .ROUTE ; Start 09/20/17 at 12:00; Stop at 09:11; Status DC Epinephrine HCl (EPINEPHrine SYRINGE) 1 mg STK-MED ONCE .ROUTE ; Start at 12:00; Stop 09/21/17 at 09:11; Status DC Furosemide (Lasix) 20 mg DAILY IVP ; Start 09/21/17 at 11:15; Stop 09/21/17 at 11:20; Status DC Lorazepam (Ativan) 1 mg PRN Q1HR PRN IV ANXIETY / AGITATION Last administered on 09/28/17 17:04; Start 09/21/17 at 11:15; Stop 09/30/17 at 09:21; Status DC Albumin Human 250 ml @ 62.5 mls/hr 1X ONCE IV Last administered on 11:57; Start 09/21/17 at 11:30; Stop 09/21/17 at 15:29; Status DC Albumin Human 250 ml @ 62.5 mls/hr 1X ONCE IV Last administered on 14:29; Start 09/21/17 at 11:30; Stop 09/21/17 at 15:29; Status DC Micafungin Sodium 100 mg/Dextrose 100 ml @ 100 mls/hr Q24H IV Last administered on 09/23/17 13:17; Start 09/21/17 at 12:00; Stop 09/24/17 at 08 :35; Status DC Vecuronium [place] (Norcuron Bolus) 4 mg PRN Q4HRS PRN IV AGITATION; Start at 15:00; Stop 09/30/17 at 09:21; Status DC Dexmedetomidine HCl 200 mcg/ Sodium Chloride 50 ml @ 0 mls/hr CONT PRN IV PER PROTOCOL Last administered on 09/21/17 15:54; Start 09/21/17 at 15:30; Stop 09/30/17 at 09:21; Status DC Sodium Chloride 500 ml @ 500 mls/hr 1X PRN PRN IV SEE COMMENTS; Start at 15:30 Atropine Sulfate 0.5 mg PRN Q5MIN PRN IV SEE COMMENTS; Start 09/21/17 at 15:30 Propofol 100 ml @ 0 mls/hr CONT PRN IV PER PROTOCOL Last administered on 14:35; Start 09/21/17 at 16:45; Stop 09/30/17 at 09:21; Status DC Furosemide (Lasix) 20 mg 1X ONCE IVP Last administered on 09/22/17 09:41; Start 09/22/17 at 10:15; Stop 09/22/17 at 10:16; Status DC Chlorhexidine Gluconate (Peridex) 15 ml BID MM Last administered on 09/29/17 08:07; Start 09/22/17 at 21:00; Stop 09/29/17 at 20:22; Status DC Furosemide (Lasix) 20 mg 1X ONCE IVP Last administered on 09/22/17 17:55; Start 09/22/17 at 18:00; Stop 09/22/17 at 18:01; Status DC Furosemide (Lasix) 20 mg DAILY IVP Last administered on 09/23/17 13:16; Start 09/23/17 at 11:30; Stop 09/24/17 at 08:40; Status DC Methylprednisolone Sodium Succinate (SOLU-Medrol 125MG VIAL) 80 mg Q8HRS IV Last administered on 09/30/17 05:47; Start 09/23/17 at 14:00; Stop 09/30/17 at 09:26; Status DC Fentanyl Citrate 55 ml @ 0 mls/hr CONT PRN PRN IV PER PROTOCOL Last administered on 09/28/17 19:13; Start 09/23/17 at 12:15; Stop 09/30/17 at 09 :21; Status DC Dextrose 1,000 ml @ 25 mls/hr Q24H IV Last administered on 09/28/17 12:59; Start 09/23/17 at 11:45 Enoxaparin Sodium (Lovenox Per Pharmacy Prophylaxis Dosing) 1 each PRN DAILY PRN MC SEE COMMENTS; Start 09/23/17 at 16:30; Stop 09/24/17 at 08:41; Status DC Enoxaparin Sodium (Lovenox 40mg Syringe) 40 mg Q24H SQ Last administered on 17:14; Start 09/23/17 at 17:00 Bisacodyl (Dulcolax Tab) 5 mg PRN DAILY PRN PO CONSTIPATION; Start 09/24/17 at 09:30 Insulin Aspart (NovoLOG) 0-5 UNITS Q6HRS SQ Last administered on 09/29/17 12: 27; Start 09/25/17 at 18:00; Stop 10/01/17 at 02:54; Status DC Dextrose (Dextrose 50%-Water Syringe) 12.5 gm PRN Q15MIN PRN IV SEE COMMENTS; Start 09/25/17 at 12:30; Stop 10/01/17 at 02:54; Status DC Dextrose/Sodium Chloride 1,000 ml @ 75 mls/hr [id number] IV Last administered on 10/02/17 01:23; Start 09/29/17 at 19:00; Stop 10/02/17 at 09:07; Status DC Ondansetron HCl (Zofran) 4 mg PRN Q6HRS PRN IV NAUSEA/VOMITING Last administered on 10/01/17 20:33; Start 09/29/17 at 20:00 Albuterol/ Ipratropium (Duoneb) 3 ml TID NEB Last administered on 10/03/17 05 :54; Start 09/30/17 at 14:00 Methylprednisolone Sodium Succinate (SOLU-Medrol 125MG VIAL) 80 mg Q12HR IV Last administered on 10/01/17 08:56; Start 09/30/17 at 21:00; Stop 10/01/17 at 10:22; Status DC Iron Sucrose 500 mg/Sodium Chloride 275 ml @ 78.571 mls/ hr 1X ONCE IV Last administered on 10/01/17 10:08; Start 10/01/17 at 09:30; Stop 10/01/17 at 12 :59; Status DC Methylprednisolone Sodium Succinate (SOLU-Medrol 40MG VIAL) 40 mg Q12HR IV ; Start 10/01/17 at 21:00; Stop 10/01/17 at 21:00; Status DC Alprazolam (Xanax) 0.25 mg PRN Q8HRS PRN PO ANXIETY / AGITATION; Start at 10:30 Quetiapine Fumarate (SEROquel) 50 mg HS PO ; Start 10/01/17 at 21:00 Methylprednisolone Sodium Succinate (SOLU-Medrol 40MG VIAL) 40 mg QHS IV Last administered on 10/01/17 20:32; Start 10/01/17 at 21:00; Stop 10/02/17 at 10 :36; Status DC Saliva Substitute (Biotene Moisturizing Mouth) 2 spray PRN Q15MIN PRN PO DRY MOUTH; Start 10/02/17 at 09:15 Info 1 each PRN DAILY PRN MC SEE COMMENTS Last administered on 10/02/17 13:09 ; Start 10/02/17 at 09:15 Amino Acids/ Glycerin/ Electrolytes 1,000 ml @ 100 mls/hr Q10H IV Last administered on 10/02/17 09:57; Start 10/02/17 at 10:00; Stop 10/02/17 at 19 :59; Status DC Methylprednisolone Sodium Succinate (SOLU-Medrol 40MG VIAL) 20 mg QHS IV Last administered on 10/02/17 21:38; Start 10/02/17 at 21:00 Sodium Acetate 40 meq/Potassium Chloride 50 meq/ Potassium Phosphate 13.6 mmol/ Magnesium Sulfate 10 meq/ Calcium Gluconate 10 meq/ Multivitamins 10 ml/Chromium / Copper/Manganese/ Seleni/Zn 1 ml/ Total Parenteral Nutrition/Amino Acids/ Dextrose/ Fat Emulsion Intravenous 1,512 ml @ 63 mls/hr TPN CONT IV Last administered on 10/02/17 21:37; Start 10/02/17 at 22:00; Stop 10/03/17 at 21 :59 Morphine Sulfate 2 mg PRN Q2HR PRN IV SEVERE PAIN Last administered on 06:09; Start 10/03/17 at 06:00 Lorazepam (Ativan) 1 mg PRN Q4HRS PRN IV ANXIETY / AGITATION Last administered on 10/03/17 06:12; Start 10/03/17 at 06:00 Active Scripts Active Reported Gabapentin 300 Mg Capsule 300 Mg PO TID Cymbalta (Duloxetine Hcl) 60 Mg Capsule. 1 Cap PO BID Hydrochlorothiazide Tablet (Hydrochlorothiazide) 25 Mg Tablet 1 Tab PO DAILY Xanax (Alprazolam) 1 Mg Tablet 1 Tab PO TID PRN Vitals/I & O Vital Sign - Last 24 Hours 10/02/17 10/02/17 10/02/17 10/02/17 10:50 12:00 12:00 12:18 Temp 98.0 98.1 98.1 97.8 98.0 98.1 98.1 97.8 Pulse 85 73 73 74 Resp 18 21 22 21 B/P (MAP) 132/76 (94) 132/72 132/72 132/70 Pulse Ox 94 O2 Delivery Room Air 10/02/17 10/02/17 10/02/17 10/02/17 12:49 13:15 14:31 14:32 Temp 98.1 98.7 98.7 98.1 98.7 98.7 Pulse 72 91 91 Resp 18 19 18 B/P (MAP) 133/66 125/70 (88) 125/70 Pulse Ox 97 O2 Delivery Room Air Room Air 10/02/17 10/02/17 10/02/17 10/02/17 19:00 19:35 19:45 23:33 Temp 97.3 98.0 97.3 98.0 Pulse 87 97 Resp 16 16 B/P (MAP) 132/79 (96) 129/78 (95) Pulse Ox 98 99 95 O2 Delivery Room Air Room Air Room Air Room Air 10/03/17 10/03/17 10/03/17 03:28 05:55 07:00 Temp 98.0 97.8 98.0 97.8 Pulse 91 93 Resp 16 18 B/P (MAP) 139/88 (105) 136/75 (95) Pulse Ox 91 94 O2 Delivery Room Air Room Air Room Air Intake and Output 10/02/17 10/02/17 10/03/17 15:00 23:00 07:00 Intake Total 760 ml 0 ml 441 ml Output Total 450 ml 1000 ml Balance 760 ml -450 ml -559 ml ELLA ORTEGA MD Oct 03, 2017 09:05
[2017-10-03 09:18] LABS: CALCIUM 8.1 mg/dL (8.5-10.1); CREATININE 0.7 mg/dL (0.6-1.0); GFR 85.4; MAGNESIUM 2.2 mg/dL (1.8-2.4); PHOSPHORUS 2.7 mg/dL (2.6-4.7); POTASSIUM 3.2 mmol/L (3.5-5.1)
--- NOTE | 2017-10-03 09:54 | PDOC ---
Objective: Objective: Increased anxiety overnight, now sleeping after Ativan. Dark stool during the night w/ "frothy" dark emesis. Vital Signs: Vital Signs Date Time Temp Pulse Resp B/P (MAP) Pulse Ox O2 Delivery O2 Flow Rate FiO2 10/03/17 07:00 97.8 93 18 136/75 (95) 94 Room Air 97.8 10/02/17 08:00 2.0 Labs: Laboratory Tests Test 10/02/17 11:22 10/02/17 16:57 Glucose (Fingerstick) 94 mg/dL (70-99) 97 mg/dL (70-99) Imaging: GI Bleed Scan IMPRESSION: No scintigraphic evidence of active GI bleed. PE: GEN: NAD NEURO/PSYCH: asleep A/P: STUART w/ dark stools/emesis -NPO on TPN, PPI, Venofer -bleeding scan neg Resp failure - improved Delirium/anxiety -- Check hemogram, continue PPI. Will review w/ Dr. Tran. SHAHLA FISHER Oct 03, 2017 09:54
[2017-10-03 10:10] LABS: HEMATOCRIT 27.9 % (36.0-47.0); HEMOGLOBIN 8.8 g/dL (12.0-15.5); RED BLOOD COUNT 3.18 x10^6/uL (3.50-5.40); RED CELL DISTRIBUTION WIDTH 23.2 % (11.5-14.5); WHITE BLOOD COUNT 16.9 x10^3/uL (4.0-11.0)
[2017-10-03 10:52] VITALS: BP 154/95
--- NOTE | 2017-10-03 11:25 | PDOC ---
PROGRESS NOTES Chief Complaint Chief Complaint Acute hypoxic respiratory failure consistent with ARDS anemia of acute blood loss, possibly upper gi, W/ melena Pneumonia post ICU, encephalopathy, acute, ongoing delirium Hypotension COPD Sepsis, severe, improving Leukocytosis - on steroids now and S/p PRBCs Anemia, acute on chronic Transaminitis - GEO improved Tobaccoism Anxiety d/o H/o Leg wounds History of Present Illness History of Present Illness still confused, but cooperative and pleasant was not eating yesterday, now NPO for possible EGD pt c/o of dryness and thirst Extubated 09/30/2017 her has been here every day, all day when I see her PT and OT, getting stronger HGb more stable, improved, minimal melena, some perineal irritation and pain Vitals Vitals Vital Signs Date Time Temp Pulse Resp B/P (MAP) Pulse Ox O2 Delivery O2 Flow Rate FiO2 10/03/17 10:52 98.3 87 16 154/95 (114) 95 Room Air 98.3 10/03/17 10:46 2.0 Physical Exam General: Alert, Cooperative, No acute distress, Other (disoriented, ) Heart: Normal S1, Normal S2 Lungs: Clear Abdomen: Normal bowel sounds, Soft Extremities: No clubbing, No cyanosis, Normal pulses, Other (1+ edema) Skin: No rashes, No significant lesion Labs LABS Laboratory Tests Test 10/02/17 16:57 10/02/17 17:20 10/03/17 08:45 Glucose (Fingerstick) 97 mg/dL (70-99) White Blood Count 18.3 x10^3/uL (4.0-11.0) 16.9 x10^3/uL (4.0-11.0) Red Blood Count 3.34 x10^6/uL (3.50-5.40) 3.18 x10^6/uL (3.50-5.40) Hemoglobin 9.1 g/dL (12.0-15.5) 8.8 g/dL (12.0-15.5) Hematocrit 28.7 % (36.0-47.0) 27.9 % (36.0-47.0) Mean Corpuscular Volume 86 fL (79-100) 88 fL (79-100) Mean Corpuscular Hemoglobin 27 pg (25-35) 28 pg (25-35) Mean Corpuscular Hemoglobin Concent 32 g/dL (31-37) 32 g/dL (31-37) Red Cell Distribution Width 22.5 % (11.5-14.5) 23.2 % (11.5-14.5) Platelet Count 329 x10^3/uL (140-400) 310 x10^3/uL (140-400) Sodium Level 148 mmol/L (136-145) Potassium Level 3.2 mmol/L (3.5-5.1) Chloride Level 118 mmol/L (98-107) Carbon Dioxide Level 21 mmol/L (21-32) Anion Gap 9 (6-14) Blood Urea Nitrogen 35 mg/dL (7-20) Creatinine 0.7 mg/dL (0.6-1.0) Estimated GFR (Cockcroft-Gault) 85.4 Glucose Level 157 mg/dL (70-99) Calcium Level 8.1 mg/dL (8.5-10.1) Phosphorus Level 2.7 mg/dL (2.6-4.7) Magnesium Level 2.2 mg/dL (1.8-2.4) Review of Systems Review of Systems perineal pain no n.v.d hungry no Assessment and Plan Assessmemt and Plan Problems Medical Problems: (1) Dyspnea Status: Acute (2) Hypoalbuminemia Status: Acute (3) Metabolic acidosis Status: Acute (4) Pneumonia Status: Acute Problems: Comment Review of Relevant I have reviewed the following items tha (where applicable) has been applied. Labs Laboratory Tests Test 10/01/17 11:30 10/01/17 11:44 10/01/17 17:01 10/01/17 20:33 White Blood Count 13.9 x10^3/uL (4.0-11.0) Red Blood Count 2.66 x10^6/uL (3.50-5.40) Hemoglobin 7.0 g/dL (12.0-15.5) Hematocrit 22.4 % (36.0-47.0) Mean Corpuscular Volume 84 fL (79-100) Mean Corpuscular Hemoglobin 26 pg (25-35) Mean Corpuscular Hemoglobin Concent 31 g/dL (31-37) Red Cell Distribution Width 29.8 % (11.5-14.5) Platelet Count 335 x10^3/uL (140-400) Neutrophils (%) (Auto) 93 % (31-73) Lymphocytes (%) (Auto) 2 % (24-48) Monocytes (%) (Auto) 4 % (0-9) Eosinophils (%) (Auto) 0 % (0-3) Basophils (%) (Auto) 0 % (0-3) Neutrophils # (Auto) 13.0 x10^3uL (1.8-7.7) Lymphocytes # (Auto) 0.3 x10^3/uL (1.0-4.8) Monocytes # (Auto) 0.6 x10^3/uL (0.0-1.1) Eosinophils # (Auto) 0.0 x10^3/uL (0.0-0.7) Basophils # (Auto) 0.0 x10^3/uL (0.0-0.2) Glucose (Fingerstick) 114 mg/dL (70-99) 134 mg/dL (70-99) 120 mg/dL (70-99) Test 10/01/17 21:55 10/02/17 05:30 10/02/17 08:07 10/02/17 11:22 White Blood Count 15.6 x10^3/uL (4.0-11.0) 14.1 x10^3/uL (4.0-11.0) Red Blood Count 3.06 x10^6/uL (3.50-5.40) 2.83 x10^6/uL (3.50-5.40) Hemoglobin 8.2 g/dL (12.0-15.5) 7.6 g/dL (12.0-15.5) Hematocrit 26.1 % (36.0-47.0) 24.0 % (36.0-47.0) Mean Corpuscular Volume 85 fL (79-100) 85 fL (79-100) Mean Corpuscular Hemoglobin 27 pg (25-35) 27 pg (25-35) Mean Corpuscular Hemoglobin Concent 32 g/dL (31-37) 32 g/dL (31-37) Red Cell Distribution Width 25.1 % (11.5-14.5) 26.1 % (11.5-14.5) Platelet Count 332 x10^3/uL (140-400) 320 x10^3/uL (140-400) Neutrophils (%) (Auto) 89 % (31-73) Lymphocytes (%) (Auto) 4 % (24-48) Monocytes (%) (Auto) 7 % (0-9) Eosinophils (%) (Auto) 0 % (0-3) Basophils (%) (Auto) 0 % (0-3) Neutrophils # (Auto) 12.6 x10^3uL (1.8-7.7) Lymphocytes # (Auto) 0.6 x10^3/uL (1.0-4.8) Monocytes # (Auto) 1.0 x10^3/uL (0.0-1.1) Eosinophils # (Auto) 0.0 x10^3/uL (0.0-0.7) Basophils # (Auto) 0.0 x10^3/uL (0.0-0.2) Sodium Level 147 mmol/L (136-145) Potassium Level 3.5 mmol/L (3.5-5.1) Chloride Level 116 mmol/L (98-107) Carbon Dioxide Level 22 mmol/L (21-32) Anion Gap 9 (6-14) Blood Urea Nitrogen 43 mg/dL (7-20) Creatinine 0.8 mg/dL (0.6-1.0) Estimated GFR (Cockcroft-Gault) 73.2 BUN/Creatinine Ratio 54 (6-20) Glucose Level 118 mg/dL (70-99) Calcium Level 7.9 mg/dL (8.5-10.1) Phosphorus Level 3.3 mg/dL (2.6-4.7) Magnesium Level 2.2 mg/dL (1.8-2.4) Total Bilirubin 0.5 mg/dL (0.2-1.0) Aspartate Amino Transf (AST/SGOT) 19 U/L (15-37) Alanine Aminotransferase (ALT/SGPT) 26 U/L (14-59) Alkaline Phosphatase 39 U/L (46-116) Total Protein 4.2 g/dL (6.4-8.2) Albumin 2.0 g/dL (3.4-5.0) Albumin/Globulin Ratio 0.9 (1.0-1.7) Glucose (Fingerstick) 105 mg/dL (70-99) 94 mg/dL (70-99) Test 10/02/17 16:57 10/02/17 17:20 10/03/17 08:45 Glucose (Fingerstick) 97 mg/dL (70-99) White Blood Count 18.3 x10^3/uL (4.0-11.0) 16.9 x10^3/uL (4.0-11.0) Red Blood Count 3.34 x10^6/uL (3.50-5.40) 3.18 x10^6/uL (3.50-5.40) Hemoglobin 9.1 g/dL (12.0-15.5) 8.8 g/dL (12.0-15.5) Hematocrit 28.7 % (36.0-47.0) 27.9 % (36.0-47.0) Mean Corpuscular Volume 86 fL (79-100) 88 fL (79-100) Mean Corpuscular Hemoglobin 27 pg (25-35) 28 pg (25-35) Mean Corpuscular Hemoglobin Concent 32 g/dL (31-37) 32 g/dL (31-37) Red Cell Distribution Width 22.5 % (11.5-14.5) 23.2 % (11.5-14.5) Platelet Count 329 x10^3/uL (140-400) 310 x10^3/uL (140-400) Sodium Level 148 mmol/L (136-145) Potassium Level 3.2 mmol/L (3.5-5.1) Chloride Level 118 mmol/L (98-107) Carbon Dioxide Level 21 mmol/L (21-32) Anion Gap 9 (6-14) Blood Urea Nitrogen 35 mg/dL (7-20) Creatinine 0.7 mg/dL (0.6-1.0) Estimated GFR (Cockcroft-Gault) 85.4 Glucose Level 157 mg/dL (70-99) Calcium Level 8.1 mg/dL (8.5-10.1) Phosphorus Level 2.7 mg/dL (2.6-4.7) Magnesium Level 2.2 mg/dL (1.8-2.4) Laboratory Tests Test 10/02/17 16:57 10/02/17 17:20 11/29/17 08:45 Glucose (Fingerstick) 97 mg/dL (70-99) White Blood Count 18.3 x10^3/uL (4.0-11.0) 16.9 x10^3/uL (4.0-11.0) Red Blood Count 3.34 x10^6/uL (3.50-5.40) 3.18 x10^6/uL (3.50-5.40) Hemoglobin 9.1 g/dL (12.0-15.5) 8.8 g/dL (12.0-15.5) Hematocrit 28.7 % (36.0-47.0) 27.9 % (36.0-47.0) Mean Corpuscular Volume 86 fL (79-100) 88 fL (79-100) Mean Corpuscular Hemoglobin 27 pg (25-35) 28 pg (25-35) Mean Corpuscular Hemoglobin Concent 32 g/dL (31-37) 32 g/dL (31-37) Red Cell Distribution Width 22.5 % (11.5-14.5) 23.2 % (11.5-14.5) Platelet Count 329 x10^3/uL (140-400) 310 x10^3/uL (140-400) Sodium Level 148 mmol/L (136-145) Potassium Level 3.2 mmol/L (3.5-5.1) Chloride Level 118 mmol/L (98-107) Carbon Dioxide Level 21 mmol/L (21-32) Anion Gap 9 (6-14) Blood Urea Nitrogen 35 mg/dL (7-20) Creatinine 0.7 mg/dL (0.6-1.0) Estimated GFR (Cockcroft-Gault) 85.4 Glucose Level 157 mg/dL (70-99) Calcium Level 8.1 mg/dL (8.5-10.1) Phosphorus Level 2.7 mg/dL (2.6-4.7) Magnesium Level 2.2 mg/dL (1.8-2.4) Microbiology 09/17/17 Blood Culture - Final, Complete NO GROWTH AFTER 5 DAYS 09/20/17 AFB Specimen Processing Tissue - Final, Resulted 09/20/17 Acid Fast Bacilli Culture, Resulted Pending 09/20/17 Gram Stain - Final, Resulted 09/20/17 Fungal Culture - Preliminary, Resulted 09/20/17 Fungal Culture Result 1 - Preliminary, Resulted Medications Current Medications Sodium Chloride 1,000 ml @ 125 mls/hr 1X ONCE IV Last administered on 15:54; Start 09/17/17 at 15:15; Stop 09/17/17 at 23:14; Status DC Ondansetron HCl (Zofran) 4 mg PRN Q8HRS PRN IV NAUSEA/VOMITING; Start at 16:30; Stop 09/18/17 at 16:29; Status DC Ceftriaxone Sodium 50 ml @ 0 mls/hr 1X ONCE IV Last administered on 17:33; Start 09/17/17 at 16:45; Stop 09/17/17 at 16:46; Status DC Azithromycin 250 ml @ 250 mls/hr 1X ONCE IV Last administered on 09/17/17 22:38; Start 09/17/17 at 16:30; Stop 09/17/17 at 17:29; Status DC Albuterol/ Ipratropium (Duoneb) 3 ml 1X ONCE NEB Last administered on 17:00; Start 09/17/17 at 16:45; Stop 09/17/17 at 16:46; Status DC Potassium Chloride (Klor-Con) 40 meq 1X ONCE PO Last administered on 16:57; Start 09/17/17 at 16:45; Stop 09/17/17 at 16:46; Status DC Azithromycin (Zithromax) 250 mg DAILY PO Last administered on 09/18/17 10:25 ; Start 09/18/17 at 09:00; Stop 09/19/17 at 10:30; Status DC Ceftriaxone Sodium 1 gm/ Dextrose 50 ml @ 100 mls/hr Q24H IV ; Start 09/17/17 at 17:15; Status UNV Albuterol/ Ipratropium (Duoneb) 3 ml Q4HRS NEB Last administered on 09/30/17 08:11; Start 09/17/17 at 20:00; Stop 09/30/17 at 09:21; Status DC Ceftriaxone Sodium (Rocephin) 1 gm Q24H IVP Last administered on 09/18/17 17: 55; Start 09/18/17 at 16:00; Stop 09/19/17 at 10:30; Status DC Guaifenesin (Robitussin Dm) 10 ml PRN Q6HRS PRN PO COUGH; Start 09/17/17 at 17 :15; Stop 09/30/17 at 09:21; Status DC Sodium Chloride 1,000 ml @ 125 mls/hr 1X ONCE IV Last administered on 17:45; Start 09/17/17 at 17:15; Stop 09/17/17 at 22:12; Status DC Info (Do NOT chart on this placeholder) 1 each 1X ONCE MC ; Start 09/17/17 at 19:00; Stop 09/17/17 at 19:01; Status UNV Influenza Virus Vaccine Quadrival (Fluarix Quad 9711-1941 Syringe) 0.5 ml ONCE ONCE VAX IM Last administered on 09/17/17 21:00; Start 09/17/17 at 21:00; Stop 09/17/17 at 21:01; Status DC Sodium Chloride 1,000 ml @ 130 mls/hr 1X ONCE IV Last administered on 22:31; Start 09/17/17 at 22:30; Stop 09/18/17 at 06:11; Status DC Sodium Bicarbonate 50 meq 1X ONCE IV Last administered on 09/17/17 22:31; Start 09/17/17 at 22:30; Stop 09/17/17 at 22:31; Status DC Alprazolam (Xanax) 1 mg PRN TID PRN PO ANXIETY Last administered on 09/19/17 02:19; Start 09/17/17 at 22:30; Stop 09/30/17 at 09:21; Status DC Furosemide (Lasix) 20 mg 1X ONCE IVP Last administered on 09/18/17 06:24; Start 09/18/17 at 06:30; Stop 09/18/17 at 06:31; Status DC Potassium Chloride (Klor-Con) 40 meq 1X ONCE PO Last administered on 10:25; Start 09/18/17 at 09:00; Stop 09/18/17 at 09:01; Status DC Iron Sucrose 500 mg/Sodium Chloride 275 ml @ 78.571 mls/ hr 1X ONCE IV Last administered on 09/18/17 10:24; Start 09/18/17 at 09:00; Stop 09/18/17 at 12 :29; Status DC Furosemide (Lasix) 20 mg 1X ONCE IVP Last administered on 09/18/17 10:30; Start 09/18/17 at 10:00; Stop 09/18/17 at 10:22; Status DC Pantoprazole Sodium (Protonix) 40 mg DAILYAC PO Last administered on 10:47; Start 09/18/17 at 11:00; Stop 09/19/17 at 13:41; Status DC Furosemide (Lasix) 20 mg 1X ONCE IVP Last administered on 09/18/17 10:47; Start 09/18/17 at 10:45; Stop 09/18/17 at 10:46; Status DC Potassium Chloride (Klor-Con) 40 meq 1X ONCE PO ; Start 09/18/17 at 11:45; Stop 09/18/17 at 11:46; Status DC Oxycodone/ Acetaminophen (Percocet 5/325) 1 tab PRN Q6HRS PRN PO PAIN Last administered on 09/18/17 13:23; Start 09/18/17 at 12:15 Lorazepam (Ativan) 1 mg PRN Q4HRS PRN IV ANXIETY / AGITATION Last administered on 09/18/17 12:25; Start 09/18/17 at 12:15; Stop 09/18/17 at 13:34; Status DC Fentanyl Citrate (Fentanyl 2ml Vial) 50 mcg PRN Q2HR PRN IV PAIN Last administered on 09/19/17 04:09; Start 09/18/17 at 12:15; Stop 09/30/17 at 09 :21; Status DC Lorazepam (Ativan) 2 mg PRN Q4HRS PRN IV ANXIETY / AGITATION Last administered on 09/29/17 05:17; Start 09/18/17 at 13:30; Stop 09/30/17 at 09:21; Status DC Quetiapine Fumarate (SEROquel) 25 mg HS PO Last administered on 09/18/17 21: 03; Start 09/18/17 at 21:00; Stop 09/19/17 at 10:35; Status DC Haloperidol Lactate (Haldol) 5 mg PRN Q12HRS PRN IVP AGITATION; Start at 13:45 Lorazepam (Ativan) 1 mg PRN Q4HRS PRN IV ANXIETY / AGITATION; Start 09/19/17 at 10:15; Stop 09/19/17 at 10:18; Status DC Lorazepam (Ativan) 4 mg 1X ONCE IV ; Start 09/19/17 at 10:30; Stop 09/19/17 at 10:31; Status DC Vancomycin HCl (Vanco Per Pharmacy) 1 each PRN DAILY PRN MC SEE COMMENTS Last administered on 09/23/17 12:36; Start 09/19/17 at 10:30; Stop 09/24/17 at 08 :36; Status DC Piperacillin Sod/ Tazobactam Sod (Zosyn Per Pharmacy) 1 each PRN DAILY PRN MC SEE COMMENTS; Start 09/19/17 at 10:30; Stop 09/24/17 at 08:41; Status DC Vancomycin HCl 2 gm/Dextrose 500 ml @ 250 mls/hr 1X ONCE IV Last administered on 09/19/17 14:53; Start 09/19/17 at 11:00; Stop 09/19/17 at 12 :59; Status DC Piperacillin Sod/ Tazobactam Sod (Zosyn) 3.375 gm Q6HRS IVP Last administered on 10/02/17 17:13; Start 09/19/17 at 11:00; Stop 10/02/17 at 19:14; Status DC Budesonide (Pulmicort) 0.5 mg RTBID NEB Last administered on 10/03/17 05:55; Start 09/19/17 at 20:00 Budesonide (Pulmicort) 0.5 mg 1X ONCE NEB Last administered on 09/19/17 12: 50; Start 09/19/17 at 10:45; Stop 09/19/17 at 10:46; Status DC Pantoprazole Sodium (PROTONIX VIAL for IV PUSH) 40 mg DAILYAC IVP Last administered on 10/03/17 08:23; Start 09/19/17 at 11:30 Furosemide (Lasix) 40 mg DAILY IVP ; Start 09/19/17 at 11:00; Stop 09/20/17 at 13:20; Status DC Methylprednisolone Sodium Succinate (SOLU-Medrol 125MG VIAL) 125 mg 1X ONCE IV Last administered on 11/15/17at 13:23; Start 09/19/17 at 10:45; Stop at 10:46; Status DC Prednisone (Prednisone) 40 mg DAILY PO ; Start 09/19/17 at 11:00; Stop at 09:02; Status DC Methylprednisolone Sodium Succinate (SOLU-Medrol 125MG VIAL) 125 mg Q8HRS IV Last administered on 09/23/17t 05:43; Start 09/19/17 at 14:00; Stop 09/23/17 at 10:40; Status DC Midazolam HCl 100 ml @ 0 mls/hr CONT PRN IV SEE I/O RECORD; Start 09/19/17 at 11:00; Stop 09/19/17 at 12:51; Status DC Midazolam HCl (Versed) 5 mg 1X ONCE IV ; Start 09/19/17 at 11:00; Stop at 11:01; Status DC Fentanyl Citrate (Fentanyl 2ml Vial) 50 mcg 1X ONCE IV ; Start 09/19/17 at 11: 00; Stop 09/19/17 at 11:01; Status DC Midazolam HCl 100 ml @ As Directed STK-MED ONCE IV ; Start 09/19/17 at 10:55; Stop 09/19/17 at 10:56; Status DC Midazolam HCl (Versed) 5 mg STK-MED ONCE .ROUTE ; Start 09/19/17 at 10:55; Stop 09/19/17 at 10:56; Status DC Propofol 100 ml @ As Directed STK-MED ONCE IV ; Start 09/19/17 at 10:59; Stop 09/19/17 at 11:00; Status DC Norepinephrine Bitartrate 250 ml @ As Directed STK-MED ONCE IV ; Start at 10:59; Stop 09/19/17 at 11:00; Status DC Furosemide (Lasix) 20 mg 1X ONCE IVP ; Start 09/19/17 at 11:15; Stop at 11:16; Status DC Vecuronium [place] (Norcuron Bolus) 10 mg STK-MED ONCE IV ; Start 09/19/17 at 11:21; Stop 09/19/17 at 11:22; Status DC Fentanyl Citrate 30 ml @ 0 mls/hr CONT PRN IV PROTOCOL Last administered on t 15:08; Start 09/19/17 at 11:30; Stop 09/23/17 at 15:24; Status DC Vecuronium [place] (Norcuron Bolus) 6 mg 1X ONCE IV Last administered on 09/19 11:42; Start 09/19/17 at 11:30; Stop 09/19/17 at 11:39; Status DC Propofol 10 ml @ 0 mls/hr 1X ONCE IV Last administered on 09/19/17 11:30; Start 09/19/17 at 11:30; Stop 09/19/17 at 11:39; Status DC Midazolam HCl 100 ml @ 0 mls/hr CONT PRN IV SEE I/O RECORD Last administered on 09/27/17 00:40; Start 09/19/17 at 11:30; Stop 09/30/17 at 09:21; Status DC Norepinephrine Bitartrate 250 ml @ 0 mls/hr CONT PRN IV SEE I/O RECORD Last administered on 09/24/17 05:18; Start 09/19/17 at 11:30; Stop 09/30/17 at 09 :21; Status DC Succinylcholine Chloride (Anectine) 100 mg 1X ONCE IV Last administered on 11:42; Start 09/19/17 at 11:30; Stop 09/19/17 at 11:39; Status DC Sodium Bicarbonate 50 meq 1X ONCE IV Last administered on 09/19/17 13:23; Start 09/19/17 at 12:45; Stop 09/19/17 at 12:46; Status DC Sodium Bicarbonate 50 meq 1X ONCE IV Last administered on 09/19/17 13:23; Start 09/19/17 at 12:45; Stop 09/19/17 at 12:46; Status DC Lidocaine/Sodium Bicarbonate (Buffered Lidocaine 1%) 20 ml STK-MED ONCE IJ ; Start 09/19/17 at 13:34; Stop 09/19/17 at 13:35; Status DC Vecuronium [place] (Norcuron Bolus) 10 mg 1X ONCE IV Last administered on 15:05; Start 09/19/17 at 14:00; Stop 09/19/17 at 14:02; Status DC Lidocaine/Sodium Bicarbonate (Buffered Lidocaine 1%) 3 ml 1X ONCE IJ ; Start 09/19/17 at 14:45; Stop 09/19/17 at 14:46; Status DC Vancomycin HCl 1.25 gm/Dextrose 250 ml @ 166.667 mls/hr Q24H IV Last administered on 09/23/17 17:19; Start 09/20/17 at 15:00; Stop 09/24/17 at 08 :35; Status DC Vancomycin HCl 1 each 1X ONCE MC Last administered on 09/21/17 14:30; Start 09/21/17 at 14:30; Stop 09/21/17 at 14:31; Status DC Azithromycin 500 mg/Sodium Chloride 250 ml @ 250 mls/hr Q24H IV Last administered on 09/23/17 17:19; Start 09/19/17 at 16:30; Stop 09/24/17 at 08 :35; Status DC Norepinephrine Bitartrate (Levophed 8mg/ 250ml Premix Drip) 8 mg STK-MED ONCE IV ; Start 09/19/17 at 11:00; Stop 09/20/17 at 08:44; Status DC Midazolam HCl (Versed) 5 mg STK-MED ONCE .ROUTE ; Start 09/19/17 at 11:00; Stop 09/20/17 at 08:44; Status DC Amino Acids/ Glycerin/ Electrolytes 1,000 ml @ 80 mls/hr [id number] IV Last administered on 09/21/17 01:21; Start 09/20/17 at 10:00; Stop 09/22/17 at 07 :02; Status DC Info 1 each PRN DAILY PRN MC SEE COMMENTS; Start 09/20/17 at 10:00; Stop at 12:14; Status DC Furosemide (Lasix) 20 mg 1X ONCE IVP Last administered on 09/20/17 10:21; Start 09/20/17 at 10:15; Stop 09/20/17 at 10:18; Status DC Info 1 each PRN DAILY PRN MC SEE COMMENTS; Start 09/20/17 at 11:00; Status UNV Vecuronium [place] (Norcuron Bolus) 10 mg 1X ONCE IV Last administered on 12:03; Start 09/20/17 at 11:15; Stop 09/20/17 at 11:24; Status DC Atropine Sulfate 0.5 mg STK-MED ONCE .ROUTE ; Start 09/20/17 at 11:47; Stop at 11:48; Status DC Epinephrine HCl (EPINEPHrine SYRINGE) 1 mg STK-MED ONCE .ROUTE ; Start at 11:47; Stop 09/20/17 at 11:48; Status DC Atropine Sulfate 0.5 mg STK-MED ONCE .ROUTE ; Start 09/20/17 at 12:00; Stop at 09:11; Status DC Epinephrine HCl (EPINEPHrine SYRINGE) 1 mg STK-MED ONCE .ROUTE ; Start at 12:00; Stop 09/21/17 at 09:11; Status DC Furosemide (Lasix) 20 mg DAILY IVP ; Start 09/21/17 at 11:15; Stop 09/21/17 at 11:20; Status DC Lorazepam (Ativan) 1 mg PRN Q1HR PRN IV ANXIETY / AGITATION Last administered on 09/28/17 17:04; Start 09/21/17 at 11:15; Stop 09/30/17 at 09:21; Status DC Albumin Human 250 ml @ 62.5 mls/hr 1X ONCE IV Last administered on 11:57; Start 09/21/17 at 11:30; Stop 09/21/17 at 15:29; Status DC Albumin Human 250 ml @ 62.5 mls/hr 1X ONCE IV Last administered on 14:29; Start 09/21/17 at 11:30; Stop 09/21/17 at 15:29; Status DC Micafungin Sodium 100 mg/Dextrose 100 ml @ 100 mls/hr Q24H IV Last administered on 09/23/17 13:17; Start 09/21/17 at 12:00; Stop 09/24/17 at 08 :35; Status DC Vecuronium [place] (Norcuron Bolus) 4 mg PRN Q4HRS PRN IV AGITATION; Start at 15:00; Stop 09/30/17 at 09:21; Status DC Dexmedetomidine HCl 200 mcg/ Sodium Chloride 50 ml @ 0 mls/hr CONT PRN IV PER PROTOCOL Last administered on 09/21/17 15:54; Start 09/21/17 at 15:30; Stop 09/30/17 at 09:21; Status DC Sodium Chloride 500 ml @ 500 mls/hr 1X PRN PRN IV SEE COMMENTS; Start at 15:30 Atropine Sulfate 0.5 mg PRN Q5MIN PRN IV SEE COMMENTS; Start 09/21/17 at 15:30 Propofol 100 ml @ 0 mls/hr CONT PRN IV PER PROTOCOL Last administered on 14:35; Start 09/21/17 at 16:45; Stop 09/30/17 at 09:21; Status DC Furosemide (Lasix) 20 mg 1X ONCE IVP Last administered on 09/22/17 09:41; Start 09/22/17 at 10:15; Stop 09/22/17 at 10:16; Status DC Chlorhexidine Gluconate (Peridex) 15 ml BID MM Last administered on 09/29/17 08:07; Start 09/22/17 at 21:00; Stop 09/29/17 at 20:22; Status DC Furosemide (Lasix) 20 mg 1X ONCE IVP Last administered on 09/22/17 17:55; Start 09/22/17 at 18:00; Stop 09/22/17 at 18:01; Status DC Furosemide (Lasix) 20 mg DAILY IVP Last administered on 09/23/17 13:16; Start 09/23/17 at 11:30; Stop 09/24/17 at 08:40; Status DC Methylprednisolone Sodium Succinate (SOLU-Medrol 125MG VIAL) 80 mg Q8HRS IV Last administered on 09/30/17 05:47; Start 09/23/17 at 14:00; Stop 09/30/17 at 09:26; Status DC Fentanyl Citrate 55 ml @ 0 mls/hr CONT PRN PRN IV PER PROTOCOL Last administered on 09/28/17 19:13; Start 09/23/17 at 12:15; Stop 09/30/17 at 09 :21; Status DC Dextrose 1,000 ml @ 25 mls/hr Q24H IV Last administered on 09/28/17 12:59; Start 09/23/17 at 11:45 Enoxaparin Sodium (Lovenox Per Pharmacy Prophylaxis Dosing) 1 each PRN DAILY PRN MC SEE COMMENTS; Start 09/23/17 at 16:30; Stop 09/24/17 at 08:41; Status DC Enoxaparin Sodium (Lovenox 40mg Syringe) 40 mg Q24H SQ Last administered on 17:14; Start 09/23/17 at 17:00 Bisacodyl (Dulcolax Tab) 5 mg PRN DAILY PRN PO CONSTIPATION; Start 09/24/17 at 09:30 Insulin Aspart (NovoLOG) 0-5 UNITS Q6HRS SQ Last administered on 09/29/17 12: 27; Start 09/25/17 at 18:00; Stop 10/01/17 at 02:54; Status DC Dextrose (Dextrose 50%-Water Syringe) 12.5 gm PRN Q15MIN PRN IV SEE COMMENTS; Start 09/25/17 at 12:30; Stop 10/01/17 at 02:54; Status DC Dextrose/Sodium Chloride 1,000 ml @ 75 mls/hr [id number] IV Last administered on 10/02/17 01:23; Start 09/29/17 at 19:00; Stop 10/02/17 at 09:07; Status DC Ondansetron HCl (Zofran) 4 mg PRN Q6HRS PRN IV NAUSEA/VOMITING Last administered on 10/01/17 20:33; Start 09/29/17 at 20:00 Albuterol/ Ipratropium (Duoneb) 3 ml TID NEB Last administered on 10/03/17 05 :54; Start 09/30/17 at 14:00 Methylprednisolone Sodium Succinate (SOLU-Medrol 125MG VIAL) 80 mg Q12HR IV Last administered on 10/01/17 08:56; Start 09/30/17 at 21:00; Stop 10/01/17 at 10:22; Status DC Iron Sucrose 500 mg/Sodium Chloride 275 ml @ 78.571 mls/ hr 1X ONCE IV Last administered on 10/01/17 10:08; Start 10/01/17 at 09:30; Stop 10/01/17 at 12 :59; Status DC Methylprednisolone Sodium Succinate (SOLU-Medrol 40MG VIAL) 40 mg Q12HR IV ; Start 10/01/17 at 21:00; Stop 10/01/17 at 21:00; Status DC Alprazolam (Xanax) 0.25 mg PRN Q8HRS PRN PO ANXIETY / AGITATION; Start at 10:30 Quetiapine Fumarate (SEROquel) 50 mg HS PO ; Start 10/01/17 at 21:00 Methylprednisolone Sodium Succinate (SOLU-Medrol 40MG VIAL) 40 mg QHS IV Last administered on 10/01/17 20:32; Start 10/01/17 at 21:00; Stop 10/02/17 at 10 :36; Status DC Saliva Substitute (Biotene Moisturizing Mouth) 2 spray PRN Q15MIN PRN PO DRY MOUTH; Start 10/02/17 at 09:15 Info 1 each PRN DAILY PRN MC SEE COMMENTS Last administered on 10/02/17 13:09 ; Start 10/02/17 at 09:15 Amino Acids/ Glycerin/ Electrolytes 1,000 ml @ 100 mls/hr Q10H IV Last administered on 10/02/17 09:57; Start 10/02/17 at 10:00; Stop 10/02/17 at 19 :59; Status DC Methylprednisolone Sodium Succinate (SOLU-Medrol 40MG VIAL) 20 mg QHS IV Last administered on 10/02/17 21:38; Start 10/02/17 at 21:00 Sodium Acetate 40 meq/Potassium Chloride 50 meq/ Potassium Phosphate 13.6 mmol/ Magnesium Sulfate 10 meq/ Calcium Gluconate 10 meq/ Multivitamins 10 ml/Chromium / Copper/Manganese/ Seleni/Zn 1 ml/ Total Parenteral Nutrition/Amino Acids/ Dextrose/ Fat Emulsion Intravenous 1,512 ml @ 63 mls/hr TPN CONT IV Last administered on 10/02/17 21:37; Start 10/02/17 at 22:00; Stop 10/03/17 at 21 :59 Morphine Sulfate 2 mg PRN Q2HR PRN IV SEVERE PAIN Last administered on 10:17; Start 10/03/17 at 06:00 Lorazepam (Ativan) 1 mg PRN Q4HRS PRN IV ANXIETY / AGITATION Last administered on 10/03/17 10:46; Start 10/03/17 at 06:00 Active Scripts Active Reported Gabapentin 300 Mg Capsule 300 Mg PO TID Cymbalta (Duloxetine Hcl) 60 Mg Capsule.dr 1 Cap PO BID Hydrochlorothiazide Tablet (Hydrochlorothiazide) 25 Mg Tablet 1 Tab PO DAILY Xanax (Alprazolam) 1 Mg Tablet 1 Tab PO TID PRN Vitals/I & O Vital Sign - Last 24 Hours 10/02/17 10/02/17 10/02/17 10/02/17 12:00 12:00 12:18 12:49 Temp 98.1 98.1 97.8 98.1 98.1 97.8 Pulse 73 73 74 Resp 21 22 21 B/P (MAP) 132/72 132/72 132/70 O2 Delivery Room Air 10/02/17 10/02/17 10/02/17 10/02/17 13:15 14:31 14:32 19:00 Temp 98.1 98.7 98.7 97.3 98.1 98.7 98.7 97.3 Pulse 72 91 91 87 Resp 18 19 18 16 B/P (MAP) 133/66 125/70 (88) 125/70 132/79 (96) Pulse Ox 97 98 O2 Delivery Room Air Room Air 10/02/17 10/02/17 10/02/17 10/03/17 19:35 19:45 23:33 03:28 Temp 98.0 98.0 98.0 98.0 Pulse 97 91 Resp 16 16 B/P (MAP) 129/78 (95) 139/88 (105) Pulse Ox 99 95 91 O2 Delivery Room Air Room Air Room Air Room Air 10/03/17 10/03/17 10/03/17 10/03/17 05:55 07:00 08:00 10:17 Temp 97.8 97.8 Pulse 93 Resp 18 20 B/P (MAP) 136/75 (95) Pulse Ox 94 94 O2 Delivery Room Air Room Air Room Air Room Air O2 Flow Rate 2.0 2.0 10/03/17 10/03/17 10:46 10:52 Temp 98.3 98.3 Pulse 87 Resp 21 16 B/P (MAP) 154/95 (114) Pulse Ox 94 95 O2 Delivery Room Air Room Air O2 Flow Rate 2.0 Intake and Output 10/02/17 10/02/17 10/03/17 15:00 23:00 07:00 Intake Total 760 ml 0 ml 441 ml Output Total 450 ml 1000 ml Balance 760 ml -450 ml -559 ml ABELARDO MOORE MD Oct 03, 2017 11:25
[2017-10-03] MEDS: IV DEXTROSE 5% 1,000 ML IV SCH (11:45)
--- NOTE | 2017-10-03 12:32 | PDOC ---
Infectious Disease Note Subjective Subjective pt is alert but intermitently confused answers few questions No fever or diarrhea ROS ROS GEN: Denies fevers, chills, sweats HEENT: Denies blurred vision, sore throat CV: Denies chest pain RESP: Denies shortness of air, cough GI: Denies n/v/d NEURO: Denies dizziness,+ intermitently confused MSK:+weakness, denies any joint pain/swelling Vital Sign Vital Signs Vital Signs Date Time Temp Pulse Resp B/P (MAP) Pulse Ox O2 Delivery O2 Flow Rate FiO2 10/03/17 12:23 Room Air 10/03/17 10:52 98.3 87 16 154/95 (114) 95 98.3 10/03/17 10:46 2.0 Physical Exam PHYSICAL EXAM GENERAL: NAD, Alert,awake intermitently confused HEENT: PERRL, anciteric NECK: Supple, no JVD, no LN LUNGS: Clear HEART: S1S2, no gallop, no murmur ABD: Soft, NT, no organomegaly, no rebound EXT: +edema, no cyanosis SENIOR QA ANALYST: Alert, oriented x 3, no focal neurologic deficit SKIN: No rash IV: ok Labs Lab Laboratory Tests Test 10/02/17 16:57 10/02/17 17:20 10/03/17 08:45 Glucose (Fingerstick) 97 mg/dL (70-99) White Blood Count 18.3 x10^3/uL (4.0-11.0) 16.9 x10^3/uL (4.0-11.0) Red Blood Count 3.34 x10^6/uL (3.50-5.40) 3.18 x10^6/uL (3.50-5.40) Hemoglobin 9.1 g/dL (12.0-15.5) 8.8 g/dL (12.0-15.5) Hematocrit 28.7 % (36.0-47.0) 27.9 % (36.0-47.0) Mean Corpuscular Volume 86 fL (79-100) 88 fL (79-100) Mean Corpuscular Hemoglobin 27 pg (25-35) 28 pg (25-35) Mean Corpuscular Hemoglobin Concent 32 g/dL (31-37) 32 g/dL (31-37) Red Cell Distribution Width 22.5 % (11.5-14.5) 23.2 % (11.5-14.5) Platelet Count 329 x10^3/uL (140-400) 310 x10^3/uL (140-400) Sodium Level 148 mmol/L (136-145) Potassium Level 3.2 mmol/L (3.5-5.1) Chloride Level 118 mmol/L (98-107) Carbon Dioxide Level 21 mmol/L (21-32) Anion Gap 9 (6-14) Blood Urea Nitrogen 35 mg/dL (7-20) Creatinine 0.7 mg/dL (0.6-1.0) Estimated GFR (Cockcroft-Gault) 85.4 Glucose Level 157 mg/dL (70-99) Calcium Level 8.1 mg/dL (8.5-10.1) Phosphorus Level 2.7 mg/dL (2.6-4.7) Magnesium Level 2.2 mg/dL (1.8-2.4) Micro reviewed Objective Assessment Acute hypoxic respiratory failure/ARDS stable Pulmonary infiltrates s/p Bronch negative,? viral improved Delirium COPD Anemia Critical care myopathy GEO stable Leucocytosis on steroids,fluctuating H/o Leg wounds with healed scars Influenza vaccine 09/17 - given C. diff neg, 09/28 Plan Plan of Care Observe off antibiotics elevated wbc likely sec to steroids cont supportive care JAMIE RODRIGUEZ MD Oct 03, 2017 12:32
[2017-10-03] MEDS: TPN PER PHARMACY MC PRN (12:40)
--- NOTE | 2017-10-03 12:44 | PDOC ---
PULMONARY PROGRESS NOTES Subjective EXTUBATED 09/29 UNCHANGED DELIRIUM WEAK OFF 02 Vitals Vital Signs Date Time Temp Pulse Resp B/P (MAP) Pulse Ox O2 Delivery O2 Flow Rate FiO2 10/03/17 12:23 Room Air 10/03/17 10:52 98.3 87 16 154/95 (114) 95 98.3 10/03/17 10:46 2.0 General: Confused Lungs: Clear Cardiovascular: S1, S2 Abdomen: Soft Extremities: Other (WEAKNESS,1+EDEMA) Skin: Warm Labs Laboratory Tests Test 10/01/17 17:01 10/01/17 20:33 10/01/17 21:55 10/02/17 05:30 Glucose (Fingerstick) 134 mg/dL (70-99) 120 mg/dL (70-99) White Blood Count 15.6 x10^3/uL (4.0-11.0) 14.1 x10^3/uL (4.0-11.0) Red Blood Count 3.06 x10^6/uL (3.50-5.40) 2.83 x10^6/uL (3.50-5.40) Hemoglobin 8.2 g/dL (12.0-15.5) 7.6 g/dL (12.0-15.5) Hematocrit 26.1 % (36.0-47.0) 24.0 % (36.0-47.0) Mean Corpuscular Volume 85 fL (79-100) 85 fL (79-100) Mean Corpuscular Hemoglobin 27 pg (25-35) 27 pg (25-35) Mean Corpuscular Hemoglobin Concent 32 g/dL (31-37) 32 g/dL (31-37) Red Cell Distribution Width 25.1 % (11.5-14.5) 26.1 % (11.5-14.5) Platelet Count 332 x10^3/uL (140-400) 320 x10^3/uL (140-400) Neutrophils (%) (Auto) 89 % (31-73) Lymphocytes (%) (Auto) 4 % (24-48) Monocytes (%) (Auto) 7 % (0-9) Eosinophils (%) (Auto) 0 % (0-3) Basophils (%) (Auto) 0 % (0-3) Neutrophils # (Auto) 12.6 x10^3uL (1.8-7.7) Lymphocytes # (Auto) 0.6 x10^3/uL (1.0-4.8) Monocytes # (Auto) 1.0 x10^3/uL (0.0-1.1) Eosinophils # (Auto) 0.0 x10^3/uL (0.0-0.7) Basophils # (Auto) 0.0 x10^3/uL (0.0-0.2) Sodium Level 147 mmol/L (136-145) Potassium Level 3.5 mmol/L (3.5-5.1) Chloride Level 116 mmol/L (98-107) Carbon Dioxide Level 22 mmol/L (21-32) Anion Gap 9 (6-14) Blood Urea Nitrogen 43 mg/dL (7-20) Creatinine 0.8 mg/dL (0.6-1.0) Estimated GFR (Cockcroft-Gault) 73.2 BUN/Creatinine Ratio 54 (6-20) Glucose Level 118 mg/dL (70-99) Calcium Level 7.9 mg/dL (8.5-10.1) Phosphorus Level 3.3 mg/dL (2.6-4.7) Magnesium Level 2.2 mg/dL (1.8-2.4) Total Bilirubin 0.5 mg/dL (0.2-1.0) Aspartate Amino Transf (AST/SGOT) 19 U/L (15-37) Alanine Aminotransferase (ALT/SGPT) 26 U/L (14-59) Alkaline Phosphatase 39 U/L (46-116) Total Protein 4.2 g/dL (6.4-8.2) Albumin 2.0 g/dL (3.4-5.0) Albumin/Globulin Ratio 0.9 (1.0-1.7) Test 10/02/17 08:07 10/02/17 11:22 10/02/17 16:57 10/02/17 17:20 Glucose (Fingerstick) 105 mg/dL (70-99) 94 mg/dL (70-99) 97 mg/dL (70-99) White Blood Count 18.3 x10^3/uL (4.0-11.0) Red Blood Count 3.34 x10^6/uL (3.50-5.40) Hemoglobin 9.1 g/dL (12.0-15.5) Hematocrit 28.7 % (36.0-47.0) Mean Corpuscular Volume 86 fL (79-100) Mean Corpuscular Hemoglobin 27 pg (25-35) Mean Corpuscular Hemoglobin Concent 32 g/dL (31-37) Red Cell Distribution Width 22.5 % (11.5-14.5) Platelet Count 329 x10^3/uL (140-400) Test 10/03/17 08:45 White Blood Count 16.9 x10^3/uL (4.0-11.0) Red Blood Count 3.18 x10^6/uL (3.50-5.40) Hemoglobin 8.8 g/dL (12.0-15.5) Hematocrit 27.9 % (36.0-47.0) Mean Corpuscular Volume 88 fL (79-100) Mean Corpuscular Hemoglobin 28 pg (25-35) Mean Corpuscular Hemoglobin Concent 32 g/dL (31-37) Red Cell Distribution Width 23.2 % (11.5-14.5) Platelet Count 310 x10^3/uL (140-400) Sodium Level 148 mmol/L (136-145) Potassium Level 3.2 mmol/L (3.5-5.1) Chloride Level 118 mmol/L (98-107) Carbon Dioxide Level 21 mmol/L (21-32) Anion Gap 9 (6-14) Blood Urea Nitrogen 35 mg/dL (7-20) Creatinine 0.7 mg/dL (0.6-1.0) Estimated GFR (Cockcroft-Gault) 85.4 Glucose Level 157 mg/dL (70-99) Calcium Level 8.1 mg/dL (8.5-10.1) Phosphorus Level 2.7 mg/dL (2.6-4.7) Magnesium Level 2.2 mg/dL (1.8-2.4) Laboratory Tests Test 10/02/17 16:57 10/02/17 17:20 10/03/17 08:45 Glucose (Fingerstick) 97 mg/dL (70-99) White Blood Count 18.3 x10^3/uL (4.0-11.0) 16.9 x10^3/uL (4.0-11.0) Red Blood Count 3.34 x10^6/uL (3.50-5.40) 3.18 x10^6/uL (3.50-5.40) Hemoglobin 9.1 g/dL (12.0-15.5) 8.8 g/dL (12.0-15.5) Hematocrit 28.7 % (36.0-47.0) 27.9 % (36.0-47.0) Mean Corpuscular Volume 86 fL (79-100) 88 fL (79-100) Mean Corpuscular Hemoglobin 27 pg (25-35) 28 pg (25-35) Mean Corpuscular Hemoglobin Concent 32 g/dL (31-37) 32 g/dL (31-37) Red Cell Distribution Width 22.5 % (11.5-14.5) 23.2 % (11.5-14.5) Platelet Count 329 x10^3/uL (140-400) 310 x10^3/uL (140-400) Sodium Level 148 mmol/L (136-145) Potassium Level 3.2 mmol/L (3.5-5.1) Chloride Level 118 mmol/L (98-107) Carbon Dioxide Level 21 mmol/L (21-32) Anion Gap 9 (6-14) Blood Urea Nitrogen 35 mg/dL (7-20) Creatinine 0.7 mg/dL (0.6-1.0) Estimated GFR (Cockcroft-Gault) 85.4 Glucose Level 157 mg/dL (70-99) Calcium Level 8.1 mg/dL (8.5-10.1) Phosphorus Level 2.7 mg/dL (2.6-4.7) Magnesium Level 2.2 mg/dL (1.8-2.4) Medications Active Scripts Medications Dose Route/Sig Max Daily Dose Days Date Category Gabapentin 300 Mg Capsule 300 Mg PO TID 09/18/17 Reported Cymbalta (Duloxetine Hcl) 60 Mg Capsule. 1 Cap PO BID 09/18/17 Reported Hydrochlorothiazide Tablet (Hydrochlorothiazide) 25 Mg Tablet 1 Tab PO DAILY 09/17/17 Reported Xanax (Alprazolam) 1 Mg Tablet 1 Tab PO TID PRN 09/17/17 Reported Comments CXR 10/01 overall improving infiltrates Impression . 1. Acute hypoxic respiratory failure/ARDS/ S/P EXTUBATION, ON RA now 2. Anemia ongoing/ GI following 3. COPD/ compensated 4. Acute renal failure, stable 5. Sepsis with hypotension POA, resolved 6. S/P Bronch so far BAL negative 7. Critical care induced myopathy 8. bilateral interstitial infiltrates , ? etiology, suspect viral, improved 9. medication induced delirium Plan . PRN OXYGEN SPOKE WITH AT BEDSIDE/ delirium will takes weeks to be better SPEECH, PT/ DYSPHAGIA DIET/ TPN DVT PROPH / ON LOVENOX. MONITOR HB ALL CULTURES NEGATIVE ANCA NEGATIVE DC STEROIDS DC ANTIBIOTICS PER ID WILL NEED AGGRESSIVE REHAB JORGE LEDESMA MD Oct 03, 2017 12:44
[2017-10-03] MEDS: POTASSIUM PHOSPHATE DIBASIC 13.6 MMOL in IV NORMAL SALINE 100ML 100 ML IV SCH ×2 (12:58→17:28)
[2017-10-03] MEDS ORDERED: VITS A & D/LANOLIN TOPICAL OINTMENT 56GM TUBE. TP PRN (14:00)
--- NOTE | 2017-10-03 14:22 | PDOC2 ---
NEUROLOGY CONSULT Date of Admission Date of Admission DATE: 10/03/17 TIME: 14:11 Reason for Consult Reason for Consult: Altered mental status Referring Physician Referring Physician: Dr. Conley PCP: Dr. Gutierrez Source Source: Caregiver, Chart review History of Present Illness History of Present Illness The patient is a 8-year-old right-handed female admitted 13 days ago with rest toward failure. She developed a frontal rest for distress syndrome and was intubated until just 4 days ago. She has remained profoundly weak and confused since. She has no prior history of weakness or numbness according to her . She does have history of severe anxiety but no cognitive problems, her states. There is no history of stroke, seizure, or head injury. Past Medical History Cardiovascular: Other (peripheral vascular disease) Pulmonary: Pneumonia Heme/Onc: Anemia NOS Psych: Anxiety, Depression Past Surgical History Past Surgical History: Other (leg vein surgery) Family History Family History: No pertinent hx Social History Social History , smoker, retired, no alcohol Current Medications Current Medications Current Medications Sodium Chloride 1,000 ml @ 125 mls/hr 1X ONCE IV Last administered on 15:54; Start 09/17/17 at 15:15; Stop 09/17/17 at 23:14; Status DC Ondansetron HCl (Zofran) 4 mg PRN Q8HRS PRN IV NAUSEA/VOMITING; Start at 16:30; Stop 09/18/17 at 16:29; Status DC Ceftriaxone Sodium 50 ml @ 0 mls/hr 1X ONCE IV Last administered on 17:33; Start 09/17/17 at 16:45; Stop 09/17/17 at 16:46; Status DC Azithromycin 250 ml @ 250 mls/hr 1X ONCE IV Last administered on 09/17/17 22:38; Start 09/17/17 at 16:30; Stop 09/17/17 at 17:29; Status DC Albuterol/ Ipratropium (Duoneb) 3 ml 1X ONCE NEB Last administered on 17:00; Start 09/17/17 at 16:45; Stop 09/17/17 at 16:46; Status DC Potassium Chloride (Klor-Con) 40 meq 1X ONCE PO Last administered on 16:57; Start 09/17/17 at 16:45; Stop 09/17/17 at 16:46; Status DC Azithromycin (Zithromax) 250 mg DAILY PO Last administered on 09/18/17 10:25 ; Start 09/18/17 at 09:00; Stop 09/19/17 at 10:30; Status DC Ceftriaxone Sodium 1 gm/ Dextrose 50 ml @ 100 mls/hr Q24H IV ; Start 09/17/17 at 17:15; Status UNV Albuterol/ Ipratropium (Duoneb) 3 ml Q4HRS NEB Last administered on 09/30/17 08:11; Start 09/17/17 at 20:00; Stop 09/30/17 at 09:21; Status DC Ceftriaxone Sodium (Rocephin) 1 gm Q24H IVP Last administered on 09/18/17 17: 55; Start 09/18/17 at 16:00; Stop 09/19/17 at 10:30; Status DC Guaifenesin (Robitussin Dm) 10 ml PRN Q6HRS PRN PO COUGH; Start 09/17/17 at 17 :15; Stop 09/30/17 at 09:21; Status DC Sodium Chloride 1,000 ml @ 125 mls/hr 1X ONCE IV Last administered on 17:45; Start 09/17/17 at 17:15; Stop 09/17/17 at 22:12; Status DC Info (Do NOT chart on this placeholder) 1 each 1X ONCE MC ; Start 09/17/17 at 19:00; Stop 09/17/17 at 19:01; Status UNV Influenza Virus Vaccine Quadrival (Fluarix Quad [id number] Syringe) 0.5 ml ONCE ONCE VAX IM Last administered on 09/17/17 21:00; Start 09/17/17 at 21:00; Stop 09/17/17 at 21:01; Status DC Sodium Chloride 1,000 ml @ 130 mls/hr 1X ONCE IV Last administered on 22:31; Start 09/17/17 at 22:30; Stop 09/18/17 at 06:11; Status DC Sodium Bicarbonate 50 meq 1X ONCE IV Last administered on 09/17/17 22:31; Start 09/17/17 at 22:30; Stop 09/17/17 at 22:31; Status DC Alprazolam (Xanax) 1 mg PRN TID PRN PO ANXIETY Last administered on 09/19/17 02:19; Start 09/17/17 at 22:30; Stop 09/30/17 at 09:21; Status DC Furosemide (Lasix) 20 mg 1X ONCE IVP Last administered on 09/18/17 06:24; Start 09/18/17 at 06:30; Stop 09/18/17 at 06:31; Status DC Potassium Chloride (Klor-Con) 40 meq 1X ONCE PO Last administered on 10:25; Start 09/18/17 at 09:00; Stop 09/18/17 at 09:01; Status DC Iron Sucrose 500 mg/Sodium Chloride 275 ml @ 78.571 mls/ hr 1X ONCE IV Last administered on 09/18/17 10:24; Start 09/18/17 at 09:00; Stop 09/18/17 at 12 :29; Status DC Furosemide (Lasix) 20 mg 1X ONCE IVP Last administered on 09/18/17 10:30; Start 09/18/17 at 10:00; Stop 09/18/17 at 10:22; Status DC Pantoprazole Sodium (Protonix) 40 mg DAILYAC PO Last administered on 10:47; Start 09/18/17 at 11:00; Stop 09/19/17 at 13:41; Status DC Furosemide (Lasix) 20 mg 1X ONCE IVP Last administered on 09/18/17 10:47; Start 09/18/17 at 10:45; Stop 09/18/17 at 10:46; Status DC Potassium Chloride (Klor-Con) 40 meq 1X ONCE PO ; Start 09/18/17 at 11:45; Stop 09/18/17 at 11:46; Status DC Oxycodone/ Acetaminophen (Percocet 5/325) 1 tab PRN Q6HRS PRN PO PAIN Last administered on 09/18/17 13:23; Start 09/18/17 at 12:15 Lorazepam (Ativan) 1 mg PRN Q4HRS PRN IV ANXIETY / AGITATION Last administered on 09/18/17 12:25; Start 09/18/17 at 12:15; Stop 09/18/17 at 13:34; Status DC Fentanyl Citrate (Fentanyl 2ml Vial) 50 mcg PRN Q2HR PRN IV PAIN Last administered on 09/19/17 04:09; Start 09/18/17 at 12:15; Stop 09/30/17 at 09 :21; Status DC Lorazepam (Ativan) 2 mg PRN Q4HRS PRN IV ANXIETY / AGITATION Last administered on 09/29/17 05:17; Start 09/18/17 at 13:30; Stop 09/30/17 at 09:21; Status DC Quetiapine Fumarate (SEROquel) 25 mg HS PO Last administered on 09/18/17 21: 03; Start 09/18/17 at 21:00; Stop 09/19/17 at 10:35; Status DC Haloperidol Lactate (Haldol) 5 mg PRN Q12HRS PRN IVP AGITATION; Start at 13:45 Lorazepam (Ativan) 1 mg PRN Q4HRS PRN IV ANXIETY / AGITATION; Start 09/19/17 at 10:15; Stop 09/19/17 at 10:18; Status DC Lorazepam (Ativan) 4 mg 1X ONCE IV ; Start 09/19/17 at 10:30; Stop 09/19/17 at 10:31; Status DC Vancomycin HCl (Vanco Per Pharmacy) 1 each PRN DAILY PRN MC SEE COMMENTS Last administered on 09/23/17 12:36; Start 09/19/17 at 10:30; Stop 09/24/17 at 08 :36; Status DC Piperacillin Sod/ Tazobactam Sod (Zosyn Per Pharmacy) 1 each PRN DAILY PRN MC SEE COMMENTS; Start 09/19/17 at 10:30; Stop 09/24/17 at 08:41; Status DC Vancomycin HCl 2 gm/Dextrose 500 ml @ 250 mls/hr 1X ONCE IV Last administered on 09/19/17 14:53; Start 09/19/17 at 11:00; Stop 09/19/17 at 12 :59; Status DC Piperacillin Sod/ Tazobactam Sod (Zosyn) 3.375 gm Q6HRS IVP Last administered on 10/02/17 17:13; Start 09/19/17 at 11:00; Stop 10/02/17 at 19:14; Status DC Budesonide (Pulmicort) 0.5 mg RTBID NEB Last administered on 10/03/17 05:55; Start 09/19/17 at 20:00 Budesonide (Pulmicort) 0.5 mg 1X ONCE NEB Last administered on 09/19/17 12: 50; Start 09/19/17 at 10:45; Stop 09/19/17 at 10:46; Status DC Pantoprazole Sodium (PROTONIX VIAL for IV PUSH) 40 mg DAILYAC IVP Last administered on 10/03/17 08:23; Start 09/19/17 at 11:30 Furosemide (Lasix) 40 mg DAILY IVP ; Start 09/19/17 at 11:00; Stop 09/20/17 at 13:20; Status DC Methylprednisolone Sodium Succinate (SOLU-Medrol 125MG VIAL) 125 mg 1X ONCE IV Last administered on 09/19/17 13:23; Start 09/19/17 at 10:45; Stop at 10:46; Status DC Prednisone (Prednisone) 40 mg DAILY PO ; Start 09/19/17 at 11:00; Stop at 09:02; Status DC Methylprednisolone Sodium Succinate (SOLU-Medrol 125MG VIAL) 125 mg Q8HRS IV Last administered on 09/23/17 05:43; Start 09/19/17 at 14:00; Stop 09/23/17 at 10:40; Status DC Midazolam HCl 100 ml @ 0 mls/hr CONT PRN IV SEE I/O RECORD; Start 09/19/17 at 11:00; Stop 09/19/17 at 12:51; Status DC Midazolam HCl (Versed) 5 mg 1X ONCE IV ; Start 09/19/17 at 11:00; Stop at 11:01; Status DC Fentanyl Citrate (Fentanyl 2ml Vial) 50 mcg 1X ONCE IV ; Start 09/19/17 at 11: 00; Stop 09/19/17 at 11:01; Status DC Midazolam HCl 100 ml @ As Directed STK-MED ONCE IV ; Start 09/19/17 at 10:55; Stop 09/19/17 at 10:56; Status DC Midazolam HCl (Versed) 5 mg STK-MED ONCE .ROUTE ; Start 09/19/17 at 10:55; Stop 09/19/17 at 10:56; Status DC Propofol 100 ml @ As Directed STK-MED ONCE IV ; Start 09/19/17 at 10:59; Stop 09/19/17 at 11:00; Status DC Norepinephrine Bitartrate 250 ml @ As Directed STK-MED ONCE IV ; Start at 10:59; Stop 09/19/17 at 11:00; Status DC Furosemide (Lasix) 20 mg 1X ONCE IVP ; Start 09/19/17 at 11:15; Stop at 11:16; Status DC Vecuronium [place] (Norcuron Bolus) 10 mg STK-MED ONCE IV ; Start 09/19/17 at 11:21; Stop 09/19/17 at 11:22; Status DC Fentanyl Citrate 30 ml @ 0 mls/hr CONT PRN IV PROTOCOL Last administered on 15:08; Start 09/19/17 at 11:30; Stop 09/23/17 at 15:24; Status DC Vecuronium [place] (Norcuron Bolus) 6 mg 1X ONCE IV Last administered on 09/19 11:42; Start 09/19/17 at 11:30; Stop 09/19/17 at 11:39; Status DC Propofol 10 ml @ 0 mls/hr 1X ONCE IV Last administered on 09/19/17 11:30; Start 09/19/17 at 11:30; Stop 09/19/17 at 11:39; Status DC Midazolam HCl 100 ml @ 0 mls/hr CONT PRN IV SEE I/O RECORD Last administered on 09/27/17 00:40; Start 09/19/17 at 11:30; Stop 09/30/17 at 09:21; Status DC Norepinephrine Bitartrate 250 ml @ 0 mls/hr CONT PRN IV SEE I/O RECORD Last administered on 09/24/17 05:18; Start 09/19/17 at 11:30; Stop 09/30/17 at 09 :21; Status DC Succinylcholine Chloride (Anectine) 100 mg 1X ONCE IV Last administered on 11:42; Start 09/19/17 at 11:30; Stop 09/19/17 at 11:39; Status DC Sodium Bicarbonate 50 meq 1X ONCE IV Last administered on 09/19/17 13:23; Start 09/19/17 at 12:45; Stop 09/19/17 at 12:46; Status DC Sodium Bicarbonate 50 meq 1X ONCE IV Last administered on 09/19/17 13:23; Start 09/19/17 at 12:45; Stop 09/19/17 at 12:46; Status DC Lidocaine/Sodium Bicarbonate (Buffered Lidocaine 1%) 20 ml STK-MED ONCE IJ ; Start 09/19/17 at 13:34; Stop 09/19/17 at 13:35; Status DC Vecuronium [place] (Norcuron Bolus) 10 mg 1X ONCE IV Last administered on 15:05; Start 09/19/17 at 14:00; Stop 09/19/17 at 14:02; Status DC Lidocaine/Sodium Bicarbonate (Buffered Lidocaine 1%) 3 ml 1X ONCE IJ ; Start 09/19/17 at 14:45; Stop 09/19/17 at 14:46; Status DC Vancomycin HCl 1.25 gm/Dextrose 250 ml @ 166.667 mls/hr Q24H IV Last administered on 09/23/17 17:19; Start 09/20/17 at 15:00; Stop 09/24/17 at 08 :35; Status DC Vancomycin HCl 1 each 1X ONCE MC Last administered on 09/21/17 14:30; Start 09/21/17 at 14:30; Stop 09/21/17 at 14:31; Status DC Azithromycin 500 mg/Sodium Chloride 250 ml @ 250 mls/hr Q24H IV Last administered on 09/23/17 17:19; Start 09/19/17 at 16:30; Stop 09/24/17 at 08 :35; Status DC Norepinephrine Bitartrate (Levophed 8mg/ 250ml Premix Drip) 8 mg STK-MED ONCE IV ; Start 09/19/17 at 11:00; Stop 09/20/17 at 08:44; Status DC Midazolam HCl (Versed) 5 mg STK-MED ONCE .ROUTE ; Start 09/19/17 at 11:00; Stop 09/20/17 at 08:44; Status DC Amino Acids/ Glycerin/ Electrolytes 1,000 ml @ 80 mls/hr [id number] IV Last administered on 09/21/17 01:21; Start 09/20/17 at 10:00; Stop 09/22/17 at 07 :02; Status DC Info 1 each PRN DAILY PRN MC SEE COMMENTS; Start 09/20/17 at 10:00; Stop at 12:14; Status DC Furosemide (Lasix) 20 mg 1X ONCE IVP Last administered on 09/20/17 10:21; Start 09/20/17 at 10:15; Stop 09/20/17 at 10:18; Status DC Info 1 each PRN DAILY PRN MC SEE COMMENTS; Start 09/20/17 at 11:00; Status UNV Vecuronium [place] (Norcuron Bolus) 10 mg 1X ONCE IV Last administered on 12:03; Start 09/20/17 at 11:15; Stop 09/20/17 at 11:24; Status DC Atropine Sulfate 0.5 mg STK-MED ONCE .ROUTE ; Start 09/20/17 at 11:47; Stop at 11:48; Status DC Epinephrine HCl (EPINEPHrine SYRINGE) 1 mg STK-MED ONCE .ROUTE ; Start at 11:47; Stop 09/20/17 at 11:48; Status DC Atropine Sulfate 0.5 mg STK-MED ONCE .ROUTE ; Start 09/20/17 at 12:00; Stop at 09:11; Status DC Epinephrine HCl (EPINEPHrine SYRINGE) 1 mg STK-MED ONCE .ROUTE ; Start at 12:00; Stop 09/21/17 at 09:11; Status DC Furosemide (Lasix) 20 mg DAILY IVP ; Start 09/21/17 at 11:15; Stop 09/21/17 at 11:20; Status DC Lorazepam (Ativan) 1 mg PRN Q1HR PRN IV ANXIETY / AGITATION Last administered on 09/28/17 17:04; Start 09/21/17 at 11:15; Stop 09/30/17 at 09:21; Status DC Albumin Human 250 ml @ 62.5 mls/hr 1X ONCE IV Last administered on 11:57; Start 09/21/17 at 11:30; Stop 09/21/17 at 15:29; Status DC Albumin Human 250 ml @ 62.5 mls/hr 1X ONCE IV Last administered on 14:29; Start 09/21/17 at 11:30; Stop 09/21/17 at 15:29; Status DC Micafungin Sodium 100 mg/Dextrose 100 ml @ 100 mls/hr Q24H IV Last administered on 09/23/17 13:17; Start 09/21/17 at 12:00; Stop 09/24/17 at 08 :35; Status DC Vecuronium [place] (Norcuron Bolus) 4 mg PRN Q4HRS PRN IV AGITATION; Start at 15:00; Stop 09/30/17 at 09:21; Status DC Dexmedetomidine HCl 200 mcg/ Sodium Chloride 50 ml @ 0 mls/hr CONT PRN IV PER PROTOCOL Last administered on 09/21/17 15:54; Start 09/21/17 at 15:30; Stop 09/30/17 at 09:21; Status DC Sodium Chloride 500 ml @ 500 mls/hr 1X PRN PRN IV SEE COMMENTS; Start at 15:30 Atropine Sulfate 0.5 mg PRN Q5MIN PRN IV SEE COMMENTS; Start 09/21/17 at 15:30 Propofol 100 ml @ 0 mls/hr CONT PRN IV PER PROTOCOL Last administered on 14:35; Start 09/21/17 at 16:45; Stop 09/30/17 at 09:21; Status DC Furosemide (Lasix) 20 mg 1X ONCE IVP Last administered on 09/22/17 09:41; Start 09/22/17 at 10:15; Stop 09/22/17 at 10:16; Status DC Chlorhexidine Gluconate (Peridex) 15 ml BID MM Last administered on 09/29/17 08:07; Start 09/22/17 at 21:00; Stop 09/29/17 at 20:22; Status DC Furosemide (Lasix) 20 mg 1X ONCE IVP Last administered on 09/22/17 17:55; Start 09/22/17 at 18:00; Stop 09/22/17 at 18:01; Status DC Furosemide (Lasix) 20 mg DAILY IVP Last administered on 09/23/17 13:16; Start 09/23/17 at 11:30; Stop 09/24/17 at 08:40; Status DC Methylprednisolone Sodium Succinate (SOLU-Medrol 125MG VIAL) 80 mg Q8HRS IV Last administered on 09/30/17 05:47; Start 09/23/17 at 14:00; Stop 09/30/17 at 09:26; Status DC Fentanyl Citrate 55 ml @ 0 mls/hr CONT PRN PRN IV PER PROTOCOL Last administered on 09/28/17 19:13; Start 09/23/17 at 12:15; Stop 09/30/17 at 09 :21; Status DC Dextrose 1,000 ml @ 25 mls/hr Q24H IV Last administered on 09/28/17 12:59; Start 09/23/17 at 11:45 Enoxaparin Sodium (Lovenox Per Pharmacy Prophylaxis Dosing) 1 each PRN DAILY PRN MC SEE COMMENTS; Start 09/23/17 at 16:30; Stop 09/24/17 at 08:41; Status DC Enoxaparin Sodium (Lovenox 40mg Syringe) 40 mg Q24H SQ Last administered on 17:14; Start 09/23/17 at 17:00 Bisacodyl (Dulcolax Tab) 5 mg PRN DAILY PRN PO CONSTIPATION; Start 09/24/17 at 09:30 Insulin Aspart (NovoLOG) 0-5 UNITS Q6HRS SQ Last administered on 09/29/17 12: 27; Start 09/25/17 at 18:00; Stop 10/01/17 at 02:54; Status DC Dextrose (Dextrose 50%-Water Syringe) 12.5 gm PRN Q15MIN PRN IV SEE COMMENTS; Start 09/25/17 at 12:30; Stop 10/01/17 at 02:54; Status DC Dextrose/Sodium Chloride 1,000 ml @ 75 mls/hr [id number] IV Last administered on 10/02/17 01:23; Start 09/29/17 at 19:00; Stop 10/02/17 at 09:07; Status DC Ondansetron HCl (Zofran) 4 mg PRN Q6HRS PRN IV NAUSEA/VOMITING Last administered on 10/01/17 20:33; Start 09/29/17 at 20:00 Albuterol/ Ipratropium (Duoneb) 3 ml TID NEB Last administered on 10/03/17 12 :12; Start 09/30/17 at 14:00 Methylprednisolone Sodium Succinate (SOLU-Medrol 125MG VIAL) 80 mg Q12HR IV Last administered on 10/01/17 08:56; Start 09/30/17 at 21:00; Stop 10/01/17 at 10:22; Status DC Iron Sucrose 500 mg/Sodium Chloride 275 ml @ 78.571 mls/ hr 1X ONCE IV Last administered on 10/01/17 10:08; Start 10/01/17 at 09:30; Stop 10/01/17 at 12 :59; Status DC Methylprednisolone Sodium Succinate (SOLU-Medrol 40MG VIAL) 40 mg Q12HR IV ; Start 10/01/17 at 21:00; Stop 10/01/17 at 21:00; Status DC Alprazolam (Xanax) 0.25 mg PRN Q8HRS PRN PO ANXIETY / AGITATION; Start at 10:30 Quetiapine Fumarate (SEROquel) 50 mg HS PO ; Start 10/01/17 at 21:00 Methylprednisolone Sodium Succinate (SOLU-Medrol 40MG VIAL) 40 mg QHS IV Last administered on 10/01/17 20:32; Start 10/01/17 at 21:00; Stop 10/02/17 at 10 :36; Status DC Saliva Substitute (Biotene Moisturizing Mouth) 2 spray PRN Q15MIN PRN PO DRY MOUTH; Start 10/02/17 at 09:15 Info 1 each PRN DAILY PRN MC SEE COMMENTS Last administered on 10/03/17 12:40 ; Start 10/02/17 at 09:15 Amino Acids/ Glycerin/ Electrolytes 1,000 ml @ 100 mls/hr Q10H IV Last administered on 10/02/17 09:57; Start 10/02/17 at 10:00; Stop 10/02/17 at 19 :59; Status DC Methylprednisolone Sodium Succinate (SOLU-Medrol 40MG VIAL) 20 mg QHS IV Last administered on 10/02/17 21:38; Start 10/02/17 at 21:00; Stop 10/03/17 at 12 :46; Status DC Sodium Acetate 40 meq/Potassium Chloride 50 meq/ Potassium Phosphate 13.6 mmol/ Magnesium Sulfate 10 meq/ Calcium Gluconate 10 meq/ Multivitamins 10 ml/Chromium / Copper/Manganese/ Seleni/Zn 1 ml/ Total Parenteral Nutrition/Amino Acids/ Dextrose/ Fat Emulsion Intravenous 1,512 ml @ 63 mls/hr TPN CONT IV Last administered on 10/02/17 21:37; Start 10/02/17 at 22:00; Stop 10/03/17 at 21 :59 Morphine Sulfate 2 mg PRN Q2HR PRN IV SEVERE PAIN Last administered on 10:17; Start 10/03/17 at 06:00 Lorazepam (Ativan) 1 mg PRN Q4HRS PRN IV ANXIETY / AGITATION Last administered on 10/03/17 10:46; Start 10/03/17 at 06:00 Potassium Phosphate 13.6 mmol/Sodium Chloride 104.5333 ml @ 52.267 m... Q2H IV Last administered on 10/03/17 12:58; Start 10/03/17 at 12:00; Stop at 15:59 Potassium Acetate 70 meq/Potassium Phosphate 13.6 mmol/Magnesium Sulfate 10 meq / Calcium Gluconate 10 meq/ Multivitamins 10 ml/Chromium/ Copper/Manganese/ Seleni/Zn 1 ml/ Total Parenteral Nutrition/Amino Acids/Dextrose/ Fat Emulsion Intravenous 1,992 ml @ 83 mls/hr TPN CONT IV ; Start 10/03/17 at 22:00; Stop 10/04/17 at 21:59 Vitamin A/Vitamin D (Vitamin A & D Ointment) 1 joe PRN BID PRN TP SKIN PROTECTION; Start 10/03/17 at 14:00 Active Scripts Active Reported Gabapentin 300 Mg Capsule 300 Mg PO TID Cymbalta (Duloxetine Hcl) 60 Mg Capsule. 1 Cap PO BID Hydrochlorothiazide Tablet (Hydrochlorothiazide) 25 Mg Tablet 1 Tab PO DAILY Xanax (Alprazolam) 1 Mg Tablet 1 Tab PO TID PRN Allergies Allergies: Coded Allergies: No Known Drug Allergies (Unverified , 09/17/17) ROS Review of System denies fevers, chills, weight loss, dyspnea, angina, abdominal pain, change in bowels, or dysuria. 14 point review of systems is negative. Physical Exam Physical Examination PHYSICAL EXAMINATION: Vital signs: see above. General appearance is normal and in no acute distress. HEENT: Normocephalic and nontraumatic. Eyes, nose, ears, and throat are unremarkable. Neck is supple. No lymphadenopathy. No bruits are heard over the carotid artery. No crepitus. NEUROLOGIC: She is sleeping, for the first time in several days her says. Pupils do react to light. She does not follow commands. There is no facial asymmetry. Reflexes are 0+. Tone is decreased. She does not move extremities to stimulation. She responds to pinprick sensation more proximally than distally. Vitals VITALS Vital Signs Date Time Temp Pulse Resp B/P (MAP) Pulse Ox O2 Delivery O2 Flow Rate FiO2 10/03/17 12:23 Room Air 10/03/17 10:52 98.3 87 16 154/95 (114) 95 98.3 10/03/17 10:46 2.0 Labs Labs Laboratory Tests Test 10/01/17 17:01 10/01/17 20:33 10/01/17 21:55 10/02/17 05:30 Glucose (Fingerstick) 134 mg/dL (70-99) 120 mg/dL (70-99) White Blood Count 15.6 x10^3/uL (4.0-11.0) 14.1 x10^3/uL (4.0-11.0) Red Blood Count 3.06 x10^6/uL (3.50-5.40) 2.83 x10^6/uL (3.50-5.40) Hemoglobin 8.2 g/dL (12.0-15.5) 7.6 g/dL (12.0-15.5) Hematocrit 26.1 % (36.0-47.0) 24.0 % (36.0-47.0) Mean Corpuscular Volume 85 fL (79-100) 85 fL (79-100) Mean Corpuscular Hemoglobin 27 pg (25-35) 27 pg (25-35) Mean Corpuscular Hemoglobin Concent 32 g/dL (31-37) 32 g/dL (31-37) Red Cell Distribution Width 25.1 % (11.5-14.5) 26.1 % (11.5-14.5) Platelet Count 332 x10^3/uL (140-400) 320 x10^3/uL (140-400) Neutrophils (%) (Auto) 89 % (31-73) Lymphocytes (%) (Auto) 4 % (24-48) Monocytes (%) (Auto) 7 % (0-9) Eosinophils (%) (Auto) 0 % (0-3) Basophils (%) (Auto) 0 % (0-3) Neutrophils # (Auto) 12.6 x10^3uL (1.8-7.7) Lymphocytes # (Auto) 0.6 x10^3/uL (1.0-4.8) Monocytes # (Auto) 1.0 x10^3/uL (0.0-1.1) Eosinophils # (Auto) 0.0 x10^3/uL (0.0-0.7) Basophils # (Auto) 0.0 x10^3/uL (0.0-0.2) Sodium Level 147 mmol/L (136-145) Potassium Level 3.5 mmol/L (3.5-5.1) Chloride Level 116 mmol/L (98-107) Carbon Dioxide Level 22 mmol/L (21-32) Anion Gap 9 (6-14) Blood Urea Nitrogen 43 mg/dL (7-20) Creatinine 0.8 mg/dL (0.6-1.0) Estimated GFR (Cockcroft-Gault) 73.2 BUN/Creatinine Ratio 54 (6-20) Glucose Level 118 mg/dL (70-99) Calcium Level 7.9 mg/dL (8.5-10.1) Phosphorus Level 3.3 mg/dL (2.6-4.7) Magnesium Level 2.2 mg/dL (1.8-2.4) Total Bilirubin 0.5 mg/dL (0.2-1.0) Aspartate Amino Transf (AST/SGOT) 19 U/L (15-37) Alanine Aminotransferase (ALT/SGPT) 26 U/L (14-59) Alkaline Phosphatase 39 U/L (46-116) Total Protein 4.2 g/dL (6.4-8.2) Albumin 2.0 g/dL (3.4-5.0) Albumin/Globulin Ratio 0.9 (1.0-1.7) Test 10/02/17 08:07 10/02/17 11:22 10/02/17 16:57 10/02/17 17:20 Glucose (Fingerstick) 105 mg/dL (70-99) 94 mg/dL (70-99) 97 mg/dL (70-99) White Blood Count 18.3 x10^3/uL (4.0-11.0) Red Blood Count 3.34 x10^6/uL (3.50-5.40) Hemoglobin 9.1 g/dL (12.0-15.5) Hematocrit 28.7 % (36.0-47.0) Mean Corpuscular Volume 86 fL (79-100) Mean Corpuscular Hemoglobin 27 pg (25-35) Mean Corpuscular Hemoglobin Concent 32 g/dL (31-37) Red Cell Distribution Width 22.5 % (11.5-14.5) Platelet Count 329 x10^3/uL (140-400) Test 10/03/17 08:45 White Blood Count 16.9 x10^3/uL (4.0-11.0) Red Blood Count 3.18 x10^6/uL (3.50-5.40) Hemoglobin 8.8 g/dL (12.0-15.5) Hematocrit 27.9 % (36.0-47.0) Mean Corpuscular Volume 88 fL (79-100) Mean Corpuscular Hemoglobin 28 pg (25-35) Mean Corpuscular Hemoglobin Concent 32 g/dL (31-37) Red Cell Distribution Width 23.2 % (11.5-14.5) Platelet Count 310 x10^3/uL (140-400) Sodium Level 148 mmol/L (136-145) Potassium Level 3.2 mmol/L (3.5-5.1) Chloride Level 118 mmol/L (98-107) Carbon Dioxide Level 21 mmol/L (21-32) Anion Gap 9 (6-14) Blood Urea Nitrogen 35 mg/dL (7-20) Creatinine 0.7 mg/dL (0.6-1.0) Estimated GFR (Cockcroft-Gault) 85.4 Glucose Level 157 mg/dL (70-99) Calcium Level 8.1 mg/dL (8.5-10.1) Phosphorus Level 2.7 mg/dL (2.6-4.7) Magnesium Level 2.2 mg/dL (1.8-2.4) Laboratory Tests Test 10/02/17 16:57 11/28/17 17:20 10/03/17 08:45 Glucose (Fingerstick) 97 mg/dL (70-99) White Blood Count 18.3 x10^3/uL (4.0-11.0) 16.9 x10^3/uL (4.0-11.0) Red Blood Count 3.34 x10^6/uL (3.50-5.40) 3.18 x10^6/uL (3.50-5.40) Hemoglobin 9.1 g/dL (12.0-15.5) 8.8 g/dL (12.0-15.5) Hematocrit 28.7 % (36.0-47.0) 27.9 % (36.0-47.0) Mean Corpuscular Volume 86 fL (79-100) 88 fL (79-100) Mean Corpuscular Hemoglobin 27 pg (25-35) 28 pg (25-35) Mean Corpuscular Hemoglobin Concent 32 g/dL (31-37) 32 g/dL (31-37) Red Cell Distribution Width 22.5 % (11.5-14.5) 23.2 % (11.5-14.5) Platelet Count 329 x10^3/uL (140-400) 310 x10^3/uL (140-400) Sodium Level 148 mmol/L (136-145) Potassium Level 3.2 mmol/L (3.5-5.1) Chloride Level 118 mmol/L (98-107) Carbon Dioxide Level 21 mmol/L (21-32) Anion Gap 9 (6-14) Blood Urea Nitrogen 35 mg/dL (7-20) Creatinine 0.7 mg/dL (0.6-1.0) Estimated GFR (Cockcroft-Gault) 85.4 Glucose Level 157 mg/dL (70-99) Calcium Level 8.1 mg/dL (8.5-10.1) Phosphorus Level 2.7 mg/dL (2.6-4.7) Magnesium Level 2.2 mg/dL (1.8-2.4) Note normal B12, folate, TSH from earlier in the hospital stay, but sedimentation rate was 94 on 09/19 Assessment/Plan Assessment/Plan Impression: Metabolic encephalopathy related to critical illness Critical illness neuropathy and myopathy Recommendations: For completeness I will check a CT head Repeat sedimentation rate I was concerned that 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 No need for LP or EEG. Thank you for letting me help with the patient's care. MOHAN DAVIS MD Oct 03, 2017 14:22
--- NOTE | 2017-10-03 16:03 | RAD ---
CT of the head without contrast, 10/03/2017: History: Altered mental status There is mild cerebral atrophy. There are moderate patchy deep white matter lucencies bilaterally most commonly due to chronic ischemic change. The ventricles are within normal limits in size. There is no shift of the midline structures. There is no evidence of acute intracranial hemorrhage or mass effect. IMPRESSION: 1. Moderate bilateral deep white matter lucencies compatible with chronic ischemic change. 2. No acute intracranial abnormality is detected. 3. MR scanning would be a more sensitive method of further evaluation, if clinically indicated. PQRS Compliance Statement: One or more of the following individualized dose reduction techniques were utilized for this examination: 1. Automated exposure control 2. Adjustment of the mA and/or kV according to patient size 3. Use of iterative reconstruction technique
--- NOTE | 2017-10-03 17:22 | PDOC ---
PROGRESS NOTES Subjective Subjective She had no new complaints. Objective Objective Vital Signs Date Time Temp Pulse Resp B/P (MAP) Pulse Ox O2 Delivery O2 Flow Rate FiO2 10/03/17 12:23 Room Air 10/03/17 10:52 98.3 87 16 154/95 (114) 95 98.3 10/03/17 10:46 2.0 Intake and Output 10/03/17 07:00 Intake Total 1201 ml Output Total 1450 ml Balance -249 ml Intake Oral 0 ml IV Total 441 ml Blood Product IV Normal Saline Flush 760 ml Output Urine Total 1400 ml Emesis 50 ml # Bowel Movements 5 Physical Exam Physical Exam She is awake and follow ing commands better but generalized muscle weakness and edema persists and she continues to require maximal help with mobility and self care. Assessment Assessment Problems Medical Problems: (1) Dyspnea Status: Acute (2) Hypoalbuminemia Status: Acute (3) Metabolic acidosis Status: Acute (4) Pneumonia Status: Acute Plan Plan of Care To continue present rehab efforts as tolerated. Comment Review of Relevant I have reviewed the following items tha (where applicable) has been applied. Labs Laboratory Tests Test 10/01/17 20:33 10/01/17 21:55 10/02/17 05:30 10/02/17 08:07 Glucose (Fingerstick) 120 mg/dL (70-99) 105 mg/dL (70-99) White Blood Count 15.6 x10^3/uL (4.0-11.0) 14.1 x10^3/uL (4.0-11.0) Red Blood Count 3.06 x10^6/uL (3.50-5.40) 2.83 x10^6/uL (3.50-5.40) Hemoglobin 8.2 g/dL (12.0-15.5) 7.6 g/dL (12.0-15.5) Hematocrit 26.1 % (36.0-47.0) 24.0 % (36.0-47.0) Mean Corpuscular Volume 85 fL (79-100) 85 fL (79-100) Mean Corpuscular Hemoglobin 27 pg (25-35) 27 pg (25-35) Mean Corpuscular Hemoglobin Concent 32 g/dL (31-37) 32 g/dL (31-37) Red Cell Distribution Width 25.1 % (11.5-14.5) 26.1 % (11.5-14.5) Platelet Count 332 x10^3/uL (140-400) 320 x10^3/uL (140-400) Neutrophils (%) (Auto) 89 % (31-73) Lymphocytes (%) (Auto) 4 % (24-48) Monocytes (%) (Auto) 7 % (0-9) Eosinophils (%) (Auto) 0 % (0-3) Basophils (%) (Auto) 0 % (0-3) Neutrophils # (Auto) 12.6 x10^3uL (1.8-7.7) Lymphocytes # (Auto) 0.6 x10^3/uL (1.0-4.8) Monocytes # (Auto) 1.0 x10^3/uL (0.0-1.1) Eosinophils # (Auto) 0.0 x10^3/uL (0.0-0.7) Basophils # (Auto) 0.0 x10^3/uL (0.0-0.2) Sodium Level 147 mmol/L (136-145) Potassium Level 3.5 mmol/L (3.5-5.1) Chloride Level 116 mmol/L (98-107) Carbon Dioxide Level 22 mmol/L (21-32) Anion Gap 9 (6-14) Blood Urea Nitrogen 43 mg/dL (7-20) Creatinine 0.8 mg/dL (0.6-1.0) Estimated GFR (Cockcroft-Gault) 73.2 BUN/Creatinine Ratio 54 (6-20) Glucose Level 118 mg/dL (70-99) Calcium Level 7.9 mg/dL (8.5-10.1) Phosphorus Level 3.3 mg/dL (2.6-4.7) Magnesium Level 2.2 mg/dL (1.8-2.4) Total Bilirubin 0.5 mg/dL (0.2-1.0) Aspartate Amino Transf (AST/SGOT) 19 U/L (15-37) Alanine Aminotransferase (ALT/SGPT) 26 U/L (14-59) Alkaline Phosphatase 39 U/L (46-116) Total Protein 4.2 g/dL (6.4-8.2) Albumin 2.0 g/dL (3.4-5.0) Albumin/Globulin Ratio 0.9 (1.0-1.7) Test 10/02/17 11:22 10/02/17 16:57 10/02/17 17:20 10/03/17 08:45 Glucose (Fingerstick) 94 mg/dL (70-99) 97 mg/dL (70-99) White Blood Count 18.3 x10^3/uL (4.0-11.0) 16.9 x10^3/uL (4.0-11.0) Red Blood Count 3.34 x10^6/uL (3.50-5.40) 3.18 x10^6/uL (3.50-5.40) Hemoglobin 9.1 g/dL (12.0-15.5) 8.8 g/dL (12.0-15.5) Hematocrit 28.7 % (36.0-47.0) 27.9 % (36.0-47.0) Mean Corpuscular Volume 86 fL (79-100) 88 fL (79-100) Mean Corpuscular Hemoglobin 27 pg (25-35) 28 pg (25-35) Mean Corpuscular Hemoglobin Concent 32 g/dL (31-37) 32 g/dL (31-37) Red Cell Distribution Width 22.5 % (11.5-14.5) 23.2 % (11.5-14.5) Platelet Count 329 x10^3/uL (140-400) 310 x10^3/uL (140-400) Sodium Level 148 mmol/L (136-145) Potassium Level 3.2 mmol/L (3.5-5.1) Chloride Level 118 mmol/L (98-107) Carbon Dioxide Level 21 mmol/L (21-32) Anion Gap 9 (6-14) Blood Urea Nitrogen 35 mg/dL (7-20) Creatinine 0.7 mg/dL (0.6-1.0) Estimated GFR (Cockcroft-Gault) 85.4 Glucose Level 157 mg/dL (70-99) Calcium Level 8.1 mg/dL (8.5-10.1) Phosphorus Level 2.7 mg/dL (2.6-4.7) Magnesium Level 2.2 mg/dL (1.8-2.4) Laboratory Tests Test 10/03/17 08:45 White Blood Count 16.9 x10^3/uL (4.0-11.0) Red Blood Count 3.18 x10^6/uL (3.50-5.40) Hemoglobin 8.8 g/dL (12.0-15.5) Hematocrit 27.9 % (36.0-47.0) Mean Corpuscular Volume 88 fL (79-100) Mean Corpuscular Hemoglobin 28 pg (25-35) Mean Corpuscular Hemoglobin Concent 32 g/dL (31-37) Red Cell Distribution Width 23.2 % (11.5-14.5) Platelet Count 310 x10^3/uL (140-400) Sodium Level 148 mmol/L (136-145) Potassium Level 3.2 mmol/L (3.5-5.1) Chloride Level 118 mmol/L (98-107) Carbon Dioxide Level 21 mmol/L (21-32) Anion Gap 9 (6-14) Blood Urea Nitrogen 35 mg/dL (7-20) Creatinine 0.7 mg/dL (0.6-1.0) Estimated GFR (Cockcroft-Gault) 85.4 Glucose Level 157 mg/dL (70-99) Calcium Level 8.1 mg/dL (8.5-10.1) Phosphorus Level 2.7 mg/dL (2.6-4.7) Magnesium Level 2.2 mg/dL (1.8-2.4) Microbiology 09/17/17 Blood Culture - Final, Complete NO GROWTH AFTER 5 DAYS 09/20/17 AFB Specimen Processing Tissue - Final, Resulted 09/20/17 Acid Fast Bacilli Culture, Resulted Pending 09/20/17 Gram Stain - Final, Resulted 09/20/17 Fungal Culture - Preliminary, Resulted 09/20/17 Fungal Culture Result 1 - Preliminary, Resulted Medications Current Medications Sodium Chloride 1,000 ml @ 125 mls/hr 1X ONCE IV Last administered on t 15:54; Start 09/17/17 at 15:15; Stop 09/17/17 at 23:14; Status DC Ondansetron HCl (Zofran) 4 mg PRN Q8HRS PRN IV NAUSEA/VOMITING; Start at 16:30; Stop 09/18/17 at 16:29; Status DC Ceftriaxone Sodium 50 ml @ 0 mls/hr 1X ONCE IV Last administered on 17:33; Start 09/17/17 at 16:45; Stop 09/17/17 at 16:46; Status DC Azithromycin 250 ml @ 250 mls/hr 1X ONCE IV Last administered on 09/17/17 22:38; Start 09/17/17 at 16:30; Stop 09/17/17 at 17:29; Status DC Albuterol/ Ipratropium (Duoneb) 3 ml 1X ONCE NEB Last administered on 17:00; Start 09/17/17 at 16:45; Stop 09/17/17 at 16:46; Status DC Potassium Chloride (Klor-Con) 40 meq 1X ONCE PO Last administered on 16:57; Start 09/17/17 at 16:45; Stop 09/17/17 at 16:46; Status DC Azithromycin (Zithromax) 250 mg DAILY PO Last administered on 09/18/17 10:25 ; Start 09/18/17 at 09:00; Stop 09/19/17 at 10:30; Status DC Ceftriaxone Sodium 1 gm/ Dextrose 50 ml @ 100 mls/hr Q24H IV ; Start 09/17/17 at 17:15; Status UNV Albuterol/ Ipratropium (Duoneb) 3 ml Q4HRS NEB Last administered on 09/30/17 08:11; Start 09/17/17 at 20:00; Stop 09/30/17 at 09:21; Status DC Ceftriaxone Sodium (Rocephin) 1 gm Q24H IVP Last administered on 09/18/17 17: 55; Start 09/18/17 at 16:00; Stop 09/19/17 at 10:30; Status DC Guaifenesin (Robitussin Dm) 10 ml PRN Q6HRS PRN PO COUGH; Start 09/17/17 at 17 :15; Stop 09/30/17 at 09:21; Status DC Sodium Chloride 1,000 ml @ 125 mls/hr 1X ONCE IV Last administered on 17:45; Start 09/17/17 at 17:15; Stop 09/17/17 at 22:12; Status DC Info (Do NOT chart on this placeholder) 1 each 1X ONCE ; Start 09/17/17 at 19:00; Stop 09/17/17 at 19:01; Status UNV Influenza Virus Vaccine Quadrival (Fluarix Quad [id number] Syringe) 0.5 ml ONCE ONCE VAX IM Last administered on 09/17/17 21:00; Start 09/17/17 at 21:00; Stop 09/17/17 at 21:01; Status DC Sodium Chloride 1,000 ml @ 130 mls/hr 1X ONCE IV Last administered on 22:31; Start 09/17/17 at 22:30; Stop 09/18/17 at 06:11; Status DC Sodium Bicarbonate 50 meq 1X ONCE IV Last administered on 09/17/17 22:31; Start 09/17/17 at 22:30; Stop 09/17/17 at 22:31; Status DC Alprazolam (Xanax) 1 mg PRN TID PRN PO ANXIETY Last administered on 09/19/17 02:19; Start 09/17/17 at 22:30; Stop 09/30/17 at 09:21; Status DC Furosemide (Lasix) 20 mg 1X ONCE IVP Last administered on 09/18/17 06:24; Start 09/18/17 at 06:30; Stop 09/18/17 at 06:31; Status DC Potassium Chloride (Klor-Con) 40 meq 1X ONCE PO Last administered on 10:25; Start 09/18/17 at 09:00; Stop 09/18/17 at 09:01; Status DC Iron Sucrose 500 mg/Sodium Chloride 275 ml @ 78.571 mls/ hr 1X ONCE IV Last administered on 09/18/17 10:24; Start 09/18/17 at 09:00; Stop 09/18/17 at 12 :29; Status DC Furosemide (Lasix) 20 mg 1X ONCE IVP Last administered on 09/18/17 10:30; Start 09/18/17 at 10:00; Stop 09/18/17 at 10:22; Status DC Pantoprazole Sodium (Protonix) 40 mg DAILYAC PO Last administered on 10:47; Start 09/18/17 at 11:00; Stop 09/19/17 at 13:41; Status DC Furosemide (Lasix) 20 mg 1X ONCE IVP Last administered on 09/18/17 10:47; Start 09/18/17 at 10:45; Stop 09/18/17 at 10:46; Status DC Potassium Chloride (Klor-Con) 40 meq 1X ONCE PO ; Start 09/18/17 at 11:45; Stop 09/18/17 at 11:46; Status DC Oxycodone/ Acetaminophen (Percocet 5/325) 1 tab PRN Q6HRS PRN PO PAIN Last administered on 09/18/17 13:23; Start 09/18/17 at 12:15 Lorazepam (Ativan) 1 mg PRN Q4HRS PRN IV ANXIETY / AGITATION Last administered on 09/18/17 12:25; Start 09/18/17 at 12:15; Stop 09/18/17 at 13:34; Status DC Fentanyl Citrate (Fentanyl 2ml Vial) 50 mcg PRN Q2HR PRN IV PAIN Last administered on 09/19/17 04:09; Start 09/18/17 at 12:15; Stop 09/30/17 at 09 :21; Status DC Lorazepam (Ativan) 2 mg PRN Q4HRS PRN IV ANXIETY / AGITATION Last administered on 09/29/17 05:17; Start 09/18/17 at 13:30; Stop 09/30/17 at 09:21; Status DC Quetiapine Fumarate (SEROquel) 25 mg HS PO Last administered on 09/18/17 21: 03; Start 09/18/17 at 21:00; Stop 09/19/17 at 10:35; Status DC Haloperidol Lactate (Haldol) 5 mg PRN Q12HRS PRN IVP AGITATION; Start at 13:45 Lorazepam (Ativan) 1 mg PRN Q4HRS PRN IV ANXIETY / AGITATION; Start 09/19/17 at 10:15; Stop 09/19/17 at 10:18; Status DC Lorazepam (Ativan) 4 mg 1X ONCE IV ; Start 09/19/17 at 10:30; Stop 09/19/17 at 10:31; Status DC Vancomycin HCl (Vanco Per Pharmacy) 1 each PRN DAILY PRN MC SEE COMMENTS Last administered on 09/23/17 12:36; Start 09/19/17 at 10:30; Stop 09/24/17 at 08 :36; Status DC Piperacillin Sod/ Tazobactam Sod (Zosyn Per Pharmacy) 1 each PRN DAILY PRN MC SEE COMMENTS; Start 09/19/17 at 10:30; Stop 09/24/17 at 08:41; Status DC Vancomycin HCl 2 gm/Dextrose 500 ml @ 250 mls/hr 1X ONCE IV Last administered on 09/19/17 14:53; Start 09/19/17 at 11:00; Stop 09/19/17 at 12 :59; Status DC Piperacillin Sod/ Tazobactam Sod (Zosyn) 3.375 gm Q6HRS IVP Last administered on 10/02/17 17:13; Start 09/19/17 at 11:00; Stop 10/02/17 at 19:14; Status DC Budesonide (Pulmicort) 0.5 mg RTBID NEB Last administered on 10/03/17 05:55; Start 09/19/17 at 20:00 Budesonide (Pulmicort) 0.5 mg 1X ONCE NEB Last administered on 09/19/17 12: 50; Start 09/19/17 at 10:45; Stop 09/19/17 at 10:46; Status DC Pantoprazole Sodium (PROTONIX VIAL for IV PUSH) 40 mg DAILYAC IVP Last administered on 10/03/17 08:23; Start 09/19/17 at 11:30 Furosemide (Lasix) 40 mg DAILY IVP ; Start 09/19/17 at 11:00; Stop 09/20/17 at 13:20; Status DC Methylprednisolone Sodium Succinate (SOLU-Medrol 125MG VIAL) 125 mg 1X ONCE IV Last administered on 09/19/17 13:23; Start 09/19/17 at 10:45; Stop at 10:46; Status DC Prednisone (Prednisone) 40 mg DAILY PO ; Start 09/19/17 at 11:00; Stop at 09:02; Status DC Methylprednisolone Sodium Succinate (SOLU-Medrol 125MG VIAL) 125 mg Q8HRS IV Last administered on 09/23/17 05:43; Start 09/19/17 at 14:00; Stop 09/23/17 at 10:40; Status DC Midazolam HCl 100 ml @ 0 mls/hr CONT PRN IV SEE I/O RECORD; Start 09/19/17 at 11:00; Stop 09/19/17 at 12:51; Status DC Midazolam HCl (Versed) 5 mg 1X ONCE IV ; Start 09/19/17 at 11:00; Stop at 11:01; Status DC Fentanyl Citrate (Fentanyl 2ml Vial) 50 mcg 1X ONCE IV ; Start 09/19/17 at 11: 00; Stop 09/19/17 at 11:01; Status DC Midazolam HCl 100 ml @ As Directed STK-MED ONCE IV ; Start 09/19/17 at 10:55; Stop 09/19/17 at 10:56; Status DC Midazolam HCl (Versed) 5 mg STK-MED ONCE .ROUTE ; Start 09/19/17 at 10:55; Stop 09/19/17 at 10:56; Status DC Propofol 100 ml @ As Directed STK-MED ONCE IV ; Start 09/19/17 at 10:59; Stop 09/19/17 at 11:00; Status DC Norepinephrine Bitartrate 250 ml @ As Directed STK-MED ONCE IV ; Start at 10:59; Stop 09/19/17 at 11:00; Status DC Furosemide (Lasix) 20 mg 1X ONCE IVP ; Start 09/19/17 at 11:15; Stop at 11:16; Status DC Vecuronium [place] (Norcuron Bolus) 10 mg STK-MED ONCE IV ; Start 09/19/17 at 11:21; Stop 09/19/17 at 11:22; Status DC Fentanyl Citrate 30 ml @ 0 mls/hr CONT PRN IV PROTOCOL Last administered on 15:08; Start 09/19/17 at 11:30; Stop 09/23/17 at 15:24; Status DC Vecuronium [place] (Norcuron Bolus) 6 mg 1X ONCE IV Last administered on 09/19t 11:42; Start 09/19/17 at 11:30; Stop 09/19/17 at 11:39; Status DC Propofol 10 ml @ 0 mls/hr 1X ONCE IV Last administered on 09/19/17 11:30; Start 09/19/17 at 11:30; Stop 09/19/17 at 11:39; Status DC Midazolam HCl 100 ml @ 0 mls/hr CONT PRN IV SEE I/O RECORD Last administered on 09/27/17 00:40; Start 09/19/17 at 11:30; Stop 09/30/17 at 09:21; Status DC Norepinephrine Bitartrate 250 ml @ 0 mls/hr CONT PRN IV SEE I/O RECORD Last administered on 09/24/17 05:18; Start 09/19/17 at 11:30; Stop 09/30/17 at 09 :21; Status DC Succinylcholine Chloride (Anectine) 100 mg 1X ONCE IV Last administered on 11:42; Start 09/19/17 at 11:30; Stop 09/19/17 at 11:39; Status DC Sodium Bicarbonate 50 meq 1X ONCE IV Last administered on 09/19/17 13:23; Start 09/19/17 at 12:45; Stop 09/19/17 at 12:46; Status DC Sodium Bicarbonate 50 meq 1X ONCE IV Last administered on 09/19/17 13:23; Start 09/19/17 at 12:45; Stop 09/19/17 at 12:46; Status DC Lidocaine/Sodium Bicarbonate (Buffered Lidocaine 1%) 20 ml STK-MED ONCE IJ ; Start 09/19/17 at 13:34; Stop 09/19/17 at 13:35; Status DC Vecuronium [place] (Norcuron Bolus) 10 mg 1X ONCE IV Last administered on 15:05; Start 09/19/17 at 14:00; Stop 09/19/17 at 14:02; Status DC Lidocaine/Sodium Bicarbonate (Buffered Lidocaine 1%) 3 ml 1X ONCE IJ ; Start 09/19/17 at 14:45; Stop 09/19/17 at 14:46; Status DC Vancomycin HCl 1.25 gm/Dextrose 250 ml @ 166.667 mls/hr Q24H IV Last administered on 09/23/17 17:19; Start 09/20/17 at 15:00; Stop 09/24/17 at 08 :35; Status DC Vancomycin HCl 1 each 1X ONCE MC Last administered on 09/21/17 14:30; Start 09/21/17 at 14:30; Stop 09/21/17 at 14:31; Status DC Azithromycin 500 mg/Sodium Chloride 250 ml @ 250 mls/hr Q24H IV Last administered on 09/23/17 17:19; Start 09/19/17 at 16:30; Stop 09/24/17 at 08 :35; Status DC Norepinephrine Bitartrate (Levophed 8mg/ 250ml Premix Drip) 8 mg STK-MED ONCE IV ; Start 09/19/17 at 11:00; Stop 09/20/17 at 08:44; Status DC Midazolam HCl (Versed) 5 mg STK-MED ONCE .ROUTE ; Start 09/19/17 at 11:00; Stop 09/20/17 at 08:44; Status DC Amino Acids/ Glycerin/ Electrolytes 1,000 ml @ 80 mls/hr [id number] IV Last administered on 09/21/17 01:21; Start 09/20/17 at 10:00; Stop 09/22/17 at 07 :02; Status DC Info 1 each PRN DAILY PRN MC SEE COMMENTS; Start 09/20/17 at 10:00; Stop at 12:14; Status DC Furosemide (Lasix) 20 mg 1X ONCE IVP Last administered on 09/20/17 10:21; Start 09/20/17 at 10:15; Stop 09/20/17 at 10:18; Status DC Info 1 each PRN DAILY PRN MC SEE COMMENTS; Start 09/20/17 at 11:00; Status UNV Vecuronium [place] (Norcuron Bolus) 10 mg 1X ONCE IV Last administered on 12:03; Start 09/20/17 at 11:15; Stop 09/20/17 at 11:24; Status DC Atropine Sulfate 0.5 mg STK-MED ONCE .ROUTE ; Start 09/20/17 at 11:47; Stop at 11:48; Status DC Epinephrine HCl (EPINEPHrine SYRINGE) 1 mg STK-MED ONCE .ROUTE ; Start at 11:47; Stop 09/20/17 at 11:48; Status DC Atropine Sulfate 0.5 mg STK-MED ONCE .ROUTE ; Start 09/20/17 at 12:00; Stop at 09:11; Status DC Epinephrine HCl (EPINEPHrine SYRINGE) 1 mg STK-MED ONCE .ROUTE ; Start at 12:00; Stop 09/21/17 at 09:11; Status DC Furosemide (Lasix) 20 mg DAILY IVP ; Start 09/21/17 at 11:15; Stop 09/21/17 at 11:20; Status DC Lorazepam (Ativan) 1 mg PRN Q1HR PRN IV ANXIETY / AGITATION Last administered on 09/28/17 17:04; Start 09/21/17 at 11:15; Stop 09/30/17 at 09:21; Status DC Albumin Human 250 ml @ 62.5 mls/hr 1X ONCE IV Last administered on 11:57; Start 09/21/17 at 11:30; Stop 09/21/17 at 15:29; Status DC Albumin Human 250 ml @ 62.5 mls/hr 1X ONCE IV Last administered on 14:29; Start 09/21/17 at 11:30; Stop 09/21/17 at 15:29; Status DC Micafungin Sodium 100 mg/Dextrose 100 ml @ 100 mls/hr Q24H IV Last administered on 09/23/17 13:17; Start 09/21/17 at 12:00; Stop 09/24/17 at 08 :35; Status DC Vecuronium [place] (Norcuron Bolus) 4 mg PRN Q4HRS PRN IV AGITATION; Start at 15:00; Stop 09/30/17 at 09:21; Status DC Dexmedetomidine HCl 200 mcg/ Sodium Chloride 50 ml @ 0 mls/hr CONT PRN IV PER PROTOCOL Last administered on 09/21/17 15:54; Start 09/21/17 at 15:30; Stop 09/30/17 at 09:21; Status DC Sodium Chloride 500 ml @ 500 mls/hr 1X PRN PRN IV SEE COMMENTS; Start at 15:30 Atropine Sulfate 0.5 mg PRN Q5MIN PRN IV SEE COMMENTS; Start 09/21/17 at 15:30 Propofol 100 ml @ 0 mls/hr CONT PRN IV PER PROTOCOL Last administered on 14:35; Start 09/21/17 at 16:45; Stop 09/30/17 at 09:21; Status DC Furosemide (Lasix) 20 mg 1X ONCE IVP Last administered on 09/22/17 09:41; Start 09/22/17 at 10:15; Stop 09/22/17 at 10:16; Status DC Chlorhexidine Gluconate (Peridex) 15 ml BID MM Last administered on 09/29/17 08:07; Start 09/22/17 at 21:00; Stop 09/29/17 at 20:22; Status DC Furosemide (Lasix) 20 mg 1X ONCE IVP Last administered on 09/22/17 17:55; Start 09/22/17 at 18:00; Stop 09/22/17 at 18:01; Status DC Furosemide (Lasix) 20 mg DAILY IVP Last administered on 09/23/17 13:16; Start 09/23/17 at 11:30; Stop 09/24/17 at 08:40; Status DC Methylprednisolone Sodium Succinate (SOLU-Medrol 125MG VIAL) 80 mg Q8HRS IV Last administered on 09/30/17 05:47; Start 09/23/17 at 14:00; Stop 09/30/17 at 09:26; Status DC Fentanyl Citrate 55 ml @ 0 mls/hr CONT PRN PRN IV PER PROTOCOL Last administered on 09/28/17 19:13; Start 09/23/17 at 12:15; Stop 09/30/17 at 09 :21; Status DC Dextrose 1,000 ml @ 25 mls/hr Q24H IV Last administered on 09/28/17 12:59; Start 09/23/17 at 11:45 Enoxaparin Sodium (Lovenox Per Pharmacy Prophylaxis Dosing) 1 each PRN DAILY PRN MC SEE COMMENTS; Start 09/23/17 at 16:30; Stop 09/24/17 at 08:41; Status DC Enoxaparin Sodium (Lovenox 40mg Syringe) 40 mg Q24H SQ Last administered on 17:14; Start 09/23/17 at 17:00 Bisacodyl (Dulcolax Tab) 5 mg PRN DAILY PRN PO CONSTIPATION; Start 09/24/17 at 09:30 Insulin Aspart (NovoLOG) 0-5 UNITS Q6HRS SQ Last administered on 09/29/17 12: 27; Start 09/25/17 at 18:00; Stop 10/01/17 at 02:54; Status DC Dextrose (Dextrose 50%-Water Syringe) 12.5 gm PRN Q15MIN PRN IV SEE COMMENTS; Start 09/25/17 at 12:30; Stop 10/01/17 at 02:54; Status DC Dextrose/Sodium Chloride 1,000 ml @ 75 mls/hr [id number] IV Last administered on 10/02/17 01:23; Start 09/29/17 at 19:00; Stop 10/02/17 at 09:07; Status DC Ondansetron HCl (Zofran) 4 mg PRN Q6HRS PRN IV NAUSEA/VOMITING Last administered on 10/01/17 20:33; Start 09/29/17 at 20:00 Albuterol/ Ipratropium (Duoneb) 3 ml TID NEB Last administered on 10/03/17 12 :12; Start 09/30/17 at 14:00 Methylprednisolone Sodium Succinate (SOLU-Medrol 125MG VIAL) 80 mg Q12HR IV Last administered on 10/01/17 08:56; Start 09/30/17 at 21:00; Stop 10/01/17 at 10:22; Status DC Iron Sucrose 500 mg/Sodium Chloride 275 ml @ 78.571 mls/ hr 1X ONCE IV Last administered on 10/01/17 10:08; Start 10/01/17 at 09:30; Stop 10/01/17 at 12 :59; Status DC Methylprednisolone Sodium Succinate (SOLU-Medrol 40MG VIAL) 40 mg Q12HR IV ; Start 10/01/17 at 21:00; Stop 10/01/17 at 21:00; Status DC Alprazolam (Xanax) 0.25 mg PRN Q8HRS PRN PO ANXIETY / AGITATION; Start at 10:30 Quetiapine Fumarate (SEROquel) 50 mg HS PO ; Start 10/01/17 at 21:00 Methylprednisolone Sodium Succinate (SOLU-Medrol 40MG VIAL) 40 mg QHS IV Last administered on 10/01/17 20:32; Start 10/01/17 at 21:00; Stop 10/02/17 at 10 :36; Status DC Saliva Substitute (Biotene Moisturizing Mouth) 2 spray PRN Q15MIN PRN PO DRY MOUTH; Start 10/02/17 at 09:15 Info 1 each PRN DAILY PRN MC SEE COMMENTS Last administered on 10/03/17 12:40 ; Start 10/02/17 at 09:15 Amino Acids/ Glycerin/ Electrolytes 1,000 ml @ 100 mls/hr Q10H IV Last administered on 10/02/17 09:57; Start 10/02/17 at 10:00; Stop 10/02/17 at 19 :59; Status DC Methylprednisolone Sodium Succinate (SOLU-Medrol 40MG VIAL) 20 mg QHS IV Last administered on 10/02/17 21:38; Start 10/02/17 at 21:00; Stop 10/03/17 at 12 :46; Status DC Sodium Acetate 40 meq/Potassium Chloride 50 meq/ Potassium Phosphate 13.6 mmol/ Magnesium Sulfate 10 meq/ Calcium Gluconate 10 meq/ Multivitamins 10 ml/Chromium / Copper/Manganese/ Seleni/Zn 1 ml/ Total Parenteral Nutrition/Amino Acids/ Dextrose/ Fat Emulsion Intravenous 1,512 ml @ 63 mls/hr TPN CONT IV Last administered on 10/02/17 21:37; Start 10/02/17 at 22:00; Stop 10/03/17 at 21 :59 Morphine Sulfate 2 mg PRN Q2HR PRN IV SEVERE PAIN Last administered on 10:17; Start 10/03/17 at 06:00 Lorazepam (Ativan) 1 mg PRN Q4HRS PRN IV ANXIETY / AGITATION Last administered on 10/03/17 10:46; Start 10/03/17 at 06:00 Potassium Phosphate 13.6 mmol/Sodium Chloride 104.5333 ml @ 52.267 m... Q2H IV Last administered on 10/03/17 12:58; Start 10/03/17 at 12:00; Stop at 15:59; Status DC Potassium Acetate 70 meq/Potassium Phosphate 13.6 mmol/Magnesium Sulfate 10 meq / Calcium Gluconate 10 meq/ Multivitamins 10 ml/Chromium/ Copper/Manganese/ Seleni/Zn 1 ml/ Total Parenteral Nutrition/Amino Acids/Dextrose/ Fat Emulsion Intravenous 1,992 ml @ 83 mls/hr TPN CONT IV ; Start 10/03/17 at 22:00; Stop 10/04/17 at 21:59 Vitamin A/Vitamin D (Vitamin A & D Ointment) 1 joe PRN BID PRN TP SKIN PROTECTION; Start 10/03/17 at 14:00 Active Scripts Active Reported Gabapentin 300 Mg Capsule 300 Mg PO TID Cymbalta (Duloxetine Hcl) 60 Mg Capsule. 1 Cap PO BID Hydrochlorothiazide Tablet (Hydrochlorothiazide) 25 Mg Tablet 1 Tab PO DAILY Xanax (Alprazolam) 1 Mg Tablet 1 Tab PO TID PRN Vitals/I & O Vital Sign - Last 24 Hours 10/02/17 10/02/17 10/02/17 10/02/17 19:00 19:35 19:45 23:33 Temp 97.3 98.0 97.3 98.0 Pulse 87 97 Resp 16 16 B/P (MAP) 132/79 (96) 129/78 (95) Pulse Ox 98 99 95 O2 Delivery Room Air Room Air Room Air Room Air 10/03/17 10/03/17 10/03/17 10/03/17 03:28 05:55 07:00 08:00 Temp 98.0 97.8 98.0 97.8 Pulse 91 93 Resp 16 18 B/P (MAP) 139/88 (105) 136/75 (95) Pulse Ox 91 94 O2 Delivery Room Air Room Air Room Air Room Air O2 Flow Rate 2.0 10/03/17 10/03/17 10/03/17 10/03/17 10:17 10:46 10:52 12:23 Temp 98.3 98.3 Pulse 87 Resp 20 21 16 B/P (MAP) 154/95 (114) Pulse Ox 94 94 95 O2 Delivery Room Air Room Air Room Air Room Air O2 Flow Rate 2.0 2.0 Intake and Output 10/02/17 10/02/17 10/03/17 15:00 23:00 07:00 Intake Total 760 ml 0 ml 441 ml Output Total 450 ml 1000 ml Balance 760 ml -450 ml -559 ml YELITZA MARROQUIN MD Oct 03, 2017 17:22
[2017-10-03] MEDS: ENOXAPARIN 40 MG/0.4 ML SYRINGE. SQ SCH (17:27)
[2017-10-03 19:57] VITALS: BP 127/75
[2017-10-03] MEDS: QUEtiapine 25 MG TABLET. PO SCH (20:11)
[2017-10-03] MEDS ORDERED: TOTAL PARENTERAL NUTRITION IV SCH ×9 (22:00)
[2017-10-03] MEDS ORDERED: [UNRECOGNIZED DRUG - OTHER] IV SCH ×9 (22:00)
[2017-10-03] MEDS ORDERED: AMINO ACIDS IV SCH ×9 (22:00)
[2017-10-03] MEDS ORDERED: DEXTROSE 70% IV SCH ×9 (22:00)
[2017-10-03 23:30] VITALS: BP 142/94
[2017-10-04] MEDS: MORPHINE SULFATE 2 MG/ML DISP.SYRIN. IV PRN ×4 (02:15→21:10)
[2017-10-04 05:49] LABS: CALCIUM 7.8 mg/dL (8.5-10.1); CREATININE 0.6 mg/dL (0.6-1.0); MAGNESIUM 1.9 mg/dL (1.8-2.4); PHOSPHORUS 2.8 mg/dL (2.6-4.7)
[2017-10-04] MEDS: IPRATRPIUM/ALBUTEROL 0.5/2.5MG 3 ML NEBU. NEB SCH ×3 (07:09→19:13)
[2017-10-04] MEDS: BUDESONIDE 0.5 MG/2 ML NEBU. NEB SCH ×2 (07:09→19:13)
[2017-10-04] MEDS: PANTOPRAZOLE IV PUSH 40 MG VIAL. IVP SCH (07:30)
[2017-10-04 07:59] VITALS: BP 163/104
--- NOTE | 2017-10-04 08:22 | PDOC ---
PROGRESS NOTES Chief Complaint Chief Complaint admitted Acute hypoxic respiratory failure consistent with ARDS, improving, now with post ICU delirium and myopathy weakness, anemia of acute blood loss, possibly upper gi, W/ melena Pneumonia post ICU, encephalopathy, acute, ongoing delirium Hypotension COPD - stable, Sepsis, severe, improving Leukocytosis - on steroids now and S/p PRBCs Anemia, acute on chronic, marked iron deficiency on admit, Transaminitis - GEO improved Tobaccoism Anxiety d/o H/o Leg wounds History of Present Illness History of Present Illness less confused, mroe oriented, but cooperative and pleasant poor po intake, cont TPN CT head showed poss mult prior small CVA, will plan to have MRI brain, not quite reliable enough to be still for that exam pt c/o of dryness and thirst Extubated 09/30/2017 her is here 0700 this AM PT and OT, getting stronger, doing well HGb to be checked daily, acute blood loss is a worry some perineal irritation and pain, better with A+D Vitals Vitals Vital Signs Date Time Temp Pulse Resp B/P (MAP) Pulse Ox O2 Delivery O2 Flow Rate FiO2 10/04/17 07:59 98.5 93 20 163/104 (123) 98 Room Air 98.5 10/03/17 10:46 2.0 Physical Exam General: Alert, Cooperative, No acute distress, Other (disoriented, ) Heart: Normal S1, Normal S2 Lungs: Clear Abdomen: Normal bowel sounds, Soft Extremities: No clubbing, No cyanosis, Normal pulses, Other (1+ edema) Skin: No rashes, No significant lesion Labs LABS Laboratory Tests Test 10/03/17 08:45 10/04/17 05:15 White Blood Count 16.9 x10^3/uL (4.0-11.0) Red Blood Count 3.18 x10^6/uL (3.50-5.40) Hemoglobin 8.8 g/dL (12.0-15.5) Hematocrit 27.9 % (36.0-47.0) Mean Corpuscular Volume 88 fL (79-100) Mean Corpuscular Hemoglobin 28 pg (25-35) Mean Corpuscular Hemoglobin Concent 32 g/dL (31-37) Red Cell Distribution Width 23.2 % (11.5-14.5) Platelet Count 310 x10^3/uL (140-400) Sodium Level 148 mmol/L (136-145) 146 mmol/L (136-145) Potassium Level 3.2 mmol/L (3.5-5.1) 4.0 mmol/L (3.5-5.1) Chloride Level 118 mmol/L (98-107) 119 mmol/L (98-107) Carbon Dioxide Level 21 mmol/L (21-32) 19 mmol/L (21-32) Anion Gap 9 (6-14) 8 (6-14) Blood Urea Nitrogen 35 mg/dL (7-20) 35 mg/dL (7-20) Creatinine 0.7 mg/dL (0.6-1.0) 0.6 mg/dL (0.6-1.0) Estimated GFR (Cockcroft-Gault) 85.4 102.0 Glucose Level 157 mg/dL (70-99) 111 mg/dL (70-99) Calcium Level 8.1 mg/dL (8.5-10.1) 7.8 mg/dL (8.5-10.1) Phosphorus Level 2.7 mg/dL (2.6-4.7) 2.8 mg/dL (2.6-4.7) Magnesium Level 2.2 mg/dL (1.8-2.4) 1.9 mg/dL (1.8-2.4) Erythrocyte Sedimentation Rate 20 (0-25) Review of Systems Review of Systems no n.v/d poor PO intake complains of flatus Assessment and Plan Assessmemt and Plan Problems Medical Problems: (1) Dyspnea Status: Acute (2) Hypoalbuminemia Status: Acute (3) Metabolic acidosis Status: Acute (4) Pneumonia Status: Acute Problems: Comment Review of Relevant I have reviewed the following items tha (where applicable) has been applied. Labs Laboratory Tests Test 10/02/17 11:22 10/02/17 16:57 10/02/17 17:20 10/03/17 08:45 Glucose (Fingerstick) 94 mg/dL (70-99) 97 mg/dL (70-99) White Blood Count 18.3 x10^3/uL (4.0-11.0) 16.9 x10^3/uL (4.0-11.0) Red Blood Count 3.34 x10^6/uL (3.50-5.40) 3.18 x10^6/uL (3.50-5.40) Hemoglobin 9.1 g/dL (12.0-15.5) 8.8 g/dL (12.0-15.5) Hematocrit 28.7 % (36.0-47.0) 27.9 % (36.0-47.0) Mean Corpuscular Volume 86 fL (79-100) 88 fL (79-100) Mean Corpuscular Hemoglobin 27 pg (25-35) 28 pg (25-35) Mean Corpuscular Hemoglobin Concent 32 g/dL (31-37) 32 g/dL (31-37) Red Cell Distribution Width 22.5 % (11.5-14.5) 23.2 % (11.5-14.5) Platelet Count 329 x10^3/uL (140-400) 310 x10^3/uL (140-400) Sodium Level 148 mmol/L (136-145) Potassium Level 3.2 mmol/L (3.5-5.1) Chloride Level 118 mmol/L (98-107) Carbon Dioxide Level 21 mmol/L (21-32) Anion Gap 9 (6-14) Blood Urea Nitrogen 35 mg/dL (7-20) Creatinine 0.7 mg/dL (0.6-1.0) Estimated GFR (Cockcroft-Gault) 85.4 Glucose Level 157 mg/dL (70-99) Calcium Level 8.1 mg/dL (8.5-10.1) Phosphorus Level 2.7 mg/dL (2.6-4.7) Magnesium Level 2.2 mg/dL (1.8-2.4) Test 10/04/17 05:15 Erythrocyte Sedimentation Rate 20 (0-25) Sodium Level 146 mmol/L (136-145) Potassium Level 4.0 mmol/L (3.5-5.1) Chloride Level 119 mmol/L (98-107) Carbon Dioxide Level 19 mmol/L (21-32) Anion Gap 8 (6-14) Blood Urea Nitrogen 35 mg/dL (7-20) Creatinine 0.6 mg/dL (0.6-1.0) Estimated GFR (Cockcroft-Gault) 102.0 Glucose Level 111 mg/dL (70-99) Calcium Level 7.8 mg/dL (8.5-10.1) Phosphorus Level 2.8 mg/dL (2.6-4.7) Magnesium Level 1.9 mg/dL (1.8-2.4) Laboratory Tests Test 10/03/17 08:45 10/04/17 05:15 White Blood Count 16.9 x10^3/uL (4.0-11.0) Red Blood Count 3.18 x10^6/uL (3.50-5.40) Hemoglobin 8.8 g/dL (12.0-15.5) Hematocrit 27.9 % (36.0-47.0) Mean Corpuscular Volume 88 fL (79-100) Mean Corpuscular Hemoglobin 28 pg (25-35) Mean Corpuscular Hemoglobin Concent 32 g/dL (31-37) Red Cell Distribution Width 23.2 % (11.5-14.5) Platelet Count 310 x10^3/uL (140-400) Sodium Level 148 mmol/L (136-145) 146 mmol/L (136-145) Potassium Level 3.2 mmol/L (3.5-5.1) 4.0 mmol/L (3.5-5.1) Chloride Level 118 mmol/L (98-107) 119 mmol/L (98-107) Carbon Dioxide Level 21 mmol/L (21-32) 19 mmol/L (21-32) Anion Gap 9 (6-14) 8 (6-14) Blood Urea Nitrogen 35 mg/dL (7-20) 35 mg/dL (7-20) Creatinine 0.7 mg/dL (0.6-1.0) 0.6 mg/dL (0.6-1.0) Estimated GFR (Cockcroft-Gault) 85.4 102.0 Glucose Level 157 mg/dL (70-99) 111 mg/dL (70-99) Calcium Level 8.1 mg/dL (8.5-10.1) 7.8 mg/dL (8.5-10.1) Phosphorus Level 2.7 mg/dL (2.6-4.7) 2.8 mg/dL (2.6-4.7) Magnesium Level 2.2 mg/dL (1.8-2.4) 1.9 mg/dL (1.8-2.4) Erythrocyte Sedimentation Rate 20 (0-25) Microbiology 09/17/17 Blood Culture - Final, Complete NO GROWTH AFTER 5 DAYS 09/20/17 AFB Specimen Processing Tissue - Final, Resulted 09/20/17 Acid Fast Bacilli Culture, Resulted Pending 09/20/17 Gram Stain - Final, Resulted 09/20/17 Fungal Culture - Preliminary, Resulted 09/20/17 Fungal Culture Result 1 - Preliminary, Resulted Medications Current Medications Sodium Chloride 1,000 ml @ 125 mls/hr 1X ONCE IV Last administered on 15:54; Start 09/17/17 at 15:15; Stop 09/17/17 at 23:14; Status DC Ondansetron HCl (Zofran) 4 mg PRN Q8HRS PRN IV NAUSEA/VOMITING; Start at 16:30; Stop 09/18/17 at 16:29; Status DC Ceftriaxone Sodium 50 ml @ 0 mls/hr 1X ONCE IV Last administered on 17:33; Start 09/17/17 at 16:45; Stop 09/17/17 at 16:46; Status DC Azithromycin 250 ml @ 250 mls/hr 1X ONCE IV Last administered on 09/17/17 22:38; Start 09/17/17 at 16:30; Stop 09/17/17 at 17:29; Status DC Albuterol/ Ipratropium (Duoneb) 3 ml 1X ONCE NEB Last administered on 17:00; Start 09/17/17 at 16:45; Stop 09/17/17 at 16:46; Status DC Potassium Chloride (Klor-Con) 40 meq 1X ONCE PO Last administered on 16:57; Start 09/17/17 at 16:45; Stop 09/17/17 at 16:46; Status DC Azithromycin (Zithromax) 250 mg DAILY PO Last administered on 09/18/17 10:25 ; Start 09/18/17 at 09:00; Stop 09/19/17 at 10:30; Status DC Ceftriaxone Sodium 1 gm/ Dextrose 50 ml @ 100 mls/hr Q24H IV ; Start 09/17/17 at 17:15; Status UNV Albuterol/ Ipratropium (Duoneb) 3 ml Q4HRS NEB Last administered on 09/30/17 08:11; Start 09/17/17 at 20:00; Stop 09/30/17 at 09:21; Status DC Ceftriaxone Sodium (Rocephin) 1 gm Q24H IVP Last administered on 09/18/17 17: 55; Start 09/18/17 at 16:00; Stop 09/19/17 at 10:30; Status DC Guaifenesin (Robitussin Dm) 10 ml PRN Q6HRS PRN PO COUGH; Start 09/17/17 at 17 :15; Stop 09/30/17 at 09:21; Status DC Sodium Chloride 1,000 ml @ 125 mls/hr 1X ONCE IV Last administered on 17:45; Start 09/17/17 at 17:15; Stop 09/17/17 at 22:12; Status DC Info (Do NOT chart on this placeholder) 1 each 1X ONCE MC ; Start 09/17/17 at 19:00; Stop 09/17/17 at 19:01; Status UNV Influenza Virus Vaccine Quadrival (Fluarix Quad [id number] Syringe) 0.5 ml ONCE ONCE VAX IM Last administered on 09/17/17 21:00; Start 09/17/17 at 21:00; Stop 09/17/17 at 21:01; Status DC Sodium Chloride 1,000 ml @ 130 mls/hr 1X ONCE IV Last administered on 22:31; Start 09/17/17 at 22:30; Stop 09/18/17 at 06:11; Status DC Sodium Bicarbonate 50 meq 1X ONCE IV Last administered on 09/17/17 22:31; Start 09/17/17 at 22:30; Stop 09/17/17 at 22:31; Status DC Alprazolam (Xanax) 1 mg PRN TID PRN PO ANXIETY Last administered on 09/19/17 02:19; Start 09/17/17 at 22:30; Stop 09/30/17 at 09:21; Status DC Furosemide (Lasix) 20 mg 1X ONCE IVP Last administered on 09/18/17 06:24; Start 09/18/17 at 06:30; Stop 09/18/17 at 06:31; Status DC Potassium Chloride (Klor-Con) 40 meq 1X ONCE PO Last administered on 10:25; Start 09/18/17 at 09:00; Stop 09/18/17 at 09:01; Status DC Iron Sucrose 500 mg/Sodium Chloride 275 ml @ 78.571 mls/ hr 1X ONCE IV Last administered on 09/18/17 10:24; Start 09/18/17 at 09:00; Stop 09/18/17 at 12 :29; Status DC Furosemide (Lasix) 20 mg 1X ONCE IVP Last administered on 09/18/17 10:30; Start 09/18/17 at 10:00; Stop 09/18/17 at 10:22; Status DC Pantoprazole Sodium (Protonix) 40 mg DAILYAC PO Last administered on 10:47; Start 09/18/17 at 11:00; Stop 09/19/17 at 13:41; Status DC Furosemide (Lasix) 20 mg 1X ONCE IVP Last administered on 09/18/17 10:47; Start 09/18/17 at 10:45; Stop 09/18/17 at 10:46; Status DC Potassium Chloride (Klor-Con) 40 meq 1X ONCE PO ; Start 09/18/17 at 11:45; Stop 09/18/17 at 11:46; Status DC Oxycodone/ Acetaminophen (Percocet 5/325) 1 tab PRN Q6HRS PRN PO PAIN Last administered on 09/18/17 13:23; Start 09/18/17 at 12:15 Lorazepam (Ativan) 1 mg PRN Q4HRS PRN IV ANXIETY / AGITATION Last administered on 09/18/17 12:25; Start 09/18/17 at 12:15; Stop 09/18/17 at 13:34; Status DC Fentanyl Citrate (Fentanyl 2ml Vial) 50 mcg PRN Q2HR PRN IV PAIN Last administered on 09/19/17 04:09; Start 09/18/17 at 12:15; Stop 09/30/17 at 09 :21; Status DC Lorazepam (Ativan) 2 mg PRN Q4HRS PRN IV ANXIETY / AGITATION Last administered on 09/29/17 05:17; Start 09/18/17 at 13:30; Stop 09/30/17 at 09:21; Status DC Quetiapine Fumarate (SEROquel) 25 mg HS PO Last administered on 09/18/17 21: 03; Start 09/18/17 at 21:00; Stop 09/19/17 at 10:35; Status DC Haloperidol Lactate (Haldol) 5 mg PRN Q12HRS PRN IVP AGITATION; Start at 13:45 Lorazepam (Ativan) 1 mg PRN Q4HRS PRN IV ANXIETY / AGITATION; Start 09/19/17 at 10:15; Stop 09/19/17 at 10:18; Status DC Lorazepam (Ativan) 4 mg 1X ONCE IV ; Start 09/19/17 at 10:30; Stop 09/19/17 at 10:31; Status DC Vancomycin HCl (Vanco Per Pharmacy) 1 each PRN DAILY PRN MC SEE COMMENTS Last administered on 09/23/17 12:36; Start 09/19/17 at 10:30; Stop 09/24/17 at 08 :36; Status DC Piperacillin Sod/ Tazobactam Sod (Zosyn Per Pharmacy) 1 each PRN DAILY PRN MC SEE COMMENTS; Start 09/19/17 at 10:30; Stop 09/24/17 at 08:41; Status DC Vancomycin HCl 2 gm/Dextrose 500 ml @ 250 mls/hr 1X ONCE IV Last administered on 09/19/17 14:53; Start 09/19/17 at 11:00; Stop 09/19/17 at 12 :59; Status DC Piperacillin Sod/ Tazobactam Sod (Zosyn) 3.375 gm Q6HRS IVP Last administered on 10/02/17 17:13; Start 09/19/17 at 11:00; Stop 10/02/17 at 19:14; Status DC Budesonide (Pulmicort) 0.5 mg RTBID NEB Last administered on 10/04/17 07:09; Start 09/19/17 at 20:00 Budesonide (Pulmicort) 0.5 mg 1X ONCE NEB Last administered on 09/19/17 12: 50; Start 09/19/17 at 10:45; Stop 09/19/17 at 10:46; Status DC Pantoprazole Sodium (PROTONIX VIAL for IV PUSH) 40 mg DAILYAC IVP Last administered on 10/03/17 08:23; Start 09/19/17 at 11:30 Furosemide (Lasix) 40 mg DAILY IVP ; Start 09/19/17 at 11:00; Stop 09/20/17 at 13:20; Status DC Methylprednisolone Sodium Succinate (SOLU-Medrol 125MG VIAL) 125 mg 1X ONCE IV Last administered on 09/19/17 13:23; Start 09/19/17 at 10:45; Stop at 10:46; Status DC Prednisone (Prednisone) 40 mg DAILY PO ; Start 09/19/17 at 11:00; Stop at 09:02; Status DC Methylprednisolone Sodium Succinate (SOLU-Medrol 125MG VIAL) 125 mg Q8HRS IV Last administered on 09/23/17 05:43; Start 09/19/17 at 14:00; Stop 09/23/17 at 10:40; Status DC Midazolam HCl 100 ml @ 0 mls/hr CONT PRN IV SEE I/O RECORD; Start 09/19/17 at 11:00; Stop 09/19/17 at 12:51; Status DC Midazolam HCl (Versed) 5 mg 1X ONCE IV ; Start 09/19/17 at 11:00; Stop at 11:01; Status DC Fentanyl Citrate (Fentanyl 2ml Vial) 50 mcg 1X ONCE IV ; Start 09/19/17 at 11: 00; Stop 09/19/17 at 11:01; Status DC Midazolam HCl 100 ml @ As Directed STK-MED ONCE IV ; Start 09/19/17 at 10:55; Stop 09/19/17 at 10:56; Status DC Midazolam HCl (Versed) 5 mg STK-MED ONCE .ROUTE ; Start 09/19/17 at 10:55; Stop 09/19/17 at 10:56; Status DC Propofol 100 ml @ As Directed STK-MED ONCE IV ; Start 09/19/17 at 10:59; Stop 09/19/17 at 11:00; Status DC Norepinephrine Bitartrate 250 ml @ As Directed STK-MED ONCE IV ; Start at 10:59; Stop 09/19/17 at 11:00; Status DC Furosemide (Lasix) 20 mg 1X ONCE IVP ; Start 09/19/17 at 11:15; Stop at 11:16; Status DC Vecuronium [place] (Norcuron Bolus) 10 mg STK-MED ONCE IV ; Start 09/19/17 at 11:21; Stop 09/19/17 at 11:22; Status DC Fentanyl Citrate 30 ml @ 0 mls/hr CONT PRN IV PROTOCOL Last administered on 15:08; Start 09/19/17 at 11:30; Stop 09/23/17 at 15:24; Status DC Vecuronium [place] (Norcuron Bolus) 6 mg 1X ONCE IV Last administered on 09/19 11:42; Start 09/19/17 at 11:30; Stop 09/19/17 at 11:39; Status DC Propofol 10 ml @ 0 mls/hr 1X ONCE IV Last administered on 09/19/17 11:30; Start 09/19/17 at 11:30; Stop 09/19/17 at 11:39; Status DC Midazolam HCl 100 ml @ 0 mls/hr CONT PRN IV SEE I/O RECORD Last administered on 09/27/17 00:40; Start 09/19/17 at 11:30; Stop 09/30/17 at 09:21; Status DC Norepinephrine Bitartrate 250 ml @ 0 mls/hr CONT PRN IV SEE I/O RECORD Last administered on 09/24/17 05:18; Start 09/19/17 at 11:30; Stop 09/30/17 at 09 :21; Status DC Succinylcholine Chloride (Anectine) 100 mg 1X ONCE IV Last administered on 11:42; Start 09/19/17 at 11:30; Stop 09/19/17 at 11:39; Status DC Sodium Bicarbonate 50 meq 1X ONCE IV Last administered on 09/19/17 13:23; Start 09/19/17 at 12:45; Stop 09/19/17 at 12:46; Status DC Sodium Bicarbonate 50 meq 1X ONCE IV Last administered on 09/19/17 13:23; Start 09/19/17 at 12:45; Stop 09/19/17 at 12:46; Status DC Lidocaine/Sodium Bicarbonate (Buffered Lidocaine 1%) 20 ml STK-MED ONCE IJ ; Start 09/19/17 at 13:34; Stop 09/19/17 at 13:35; Status DC Vecuronium [place] (Norcuron Bolus) 10 mg 1X ONCE IV Last administered on 15:05; Start 09/19/17 at 14:00; Stop 09/19/17 at 14:02; Status DC Lidocaine/Sodium Bicarbonate (Buffered Lidocaine 1%) 3 ml 1X ONCE IJ ; Start 09/19/17 at 14:45; Stop 09/19/17 at 14:46; Status DC Vancomycin HCl 1.25 gm/Dextrose 250 ml @ 166.667 mls/hr Q24H IV Last administered on 09/23/17 17:19; Start 09/20/17 at 15:00; Stop 09/24/17 at 08 :35; Status DC Vancomycin HCl 1 each 1X ONCE MC Last administered on 09/21/17 14:30; Start 09/21/17 at 14:30; Stop 09/21/17 at 14:31; Status DC Azithromycin 500 mg/Sodium Chloride 250 ml @ 250 mls/hr Q24H IV Last administered on 09/23/17 17:19; Start 09/19/17 at 16:30; Stop 09/24/17 at 08 :35; Status DC Norepinephrine Bitartrate (Levophed 8mg/ 250ml Premix Drip) 8 mg STK-MED ONCE IV ; Start 09/19/17 at 11:00; Stop 09/20/17 at 08:44; Status DC Midazolam HCl (Versed) 5 mg STK-MED ONCE .ROUTE ; Start 09/19/17 at 11:00; Stop 09/20/17 at 08:44; Status DC Amino Acids/ Glycerin/ Electrolytes 1,000 ml @ 80 mls/hr [id number] IV Last administered on 09/21/17 01:21; Start 09/20/17 at 10:00; Stop 09/22/17 at 07 :02; Status DC Info 1 each PRN DAILY PRN MC SEE COMMENTS; Start 09/20/17 at 10:00; Stop at 12:14; Status DC Furosemide (Lasix) 20 mg 1X ONCE IVP Last administered on 09/20/17 10:21; Start 09/20/17 at 10:15; Stop 09/20/17 at 10:18; Status DC Info 1 each PRN DAILY PRN MC SEE COMMENTS; Start 09/20/17 at 11:00; Status UNV Vecuronium [place] (Norcuron Bolus) 10 mg 1X ONCE IV Last administered on 12:03; Start 09/20/17 at 11:15; Stop 09/20/17 at 11:24; Status DC Atropine Sulfate 0.5 mg STK-MED ONCE .ROUTE ; Start 09/20/17 at 11:47; Stop at 11:48; Status DC Epinephrine HCl (EPINEPHrine SYRINGE) 1 mg STK-MED ONCE .ROUTE ; Start at 11:47; Stop 09/20/17 at 11:48; Status DC Atropine Sulfate 0.5 mg STK-MED ONCE .ROUTE ; Start 09/20/17 at 12:00; Stop at 09:11; Status DC Epinephrine HCl (EPINEPHrine SYRINGE) 1 mg STK-MED ONCE .ROUTE ; Start at 12:00; Stop 09/21/17 at 09:11; Status DC Furosemide (Lasix) 20 mg DAILY IVP ; Start 09/21/17 at 11:15; Stop 09/21/17 at 11:20; Status DC Lorazepam (Ativan) 1 mg PRN Q1HR PRN IV ANXIETY / AGITATION Last administered on 09/28/17 17:04; Start 09/21/17 at 11:15; Stop 09/30/17 at 09:21; Status DC Albumin Human 250 ml @ 62.5 mls/hr 1X ONCE IV Last administered on 11:57; Start 09/21/17 at 11:30; Stop 09/21/17 at 15:29; Status DC Albumin Human 250 ml @ 62.5 mls/hr 1X ONCE IV Last administered on 14:29; Start 09/21/17 at 11:30; Stop 09/21/17 at 15:29; Status DC Micafungin Sodium 100 mg/Dextrose 100 ml @ 100 mls/hr Q24H IV Last administered on 09/23/17 13:17; Start 09/21/17 at 12:00; Stop 09/24/17 at 08 :35; Status DC Vecuronium [place] (Norcuron Bolus) 4 mg PRN Q4HRS PRN IV AGITATION; Start at 15:00; Stop 09/30/17 at 09:21; Status DC Dexmedetomidine HCl 200 mcg/ Sodium Chloride 50 ml @ 0 mls/hr CONT PRN IV PER PROTOCOL Last administered on 09/21/17 15:54; Start 09/21/17 at 15:30; Stop 09/30/17 at 09:21; Status DC Sodium Chloride 500 ml @ 500 mls/hr 1X PRN PRN IV SEE COMMENTS; Start at 15:30 Atropine Sulfate 0.5 mg PRN Q5MIN PRN IV SEE COMMENTS; Start 09/21/17 at 15:30 Propofol 100 ml @ 0 mls/hr CONT PRN IV PER PROTOCOL Last administered on 14:35; Start 09/21/17 at 16:45; Stop 09/30/17 at 09:21; Status DC Furosemide (Lasix) 20 mg 1X ONCE IVP Last administered on 09/22/17 09:41; Start 09/22/17 at 10:15; Stop 09/22/17 at 10:16; Status DC Chlorhexidine Gluconate (Peridex) 15 ml BID MM Last administered on 09/29/17 08:07; Start 09/22/17 at 21:00; Stop 09/29/17 at 20:22; Status DC Furosemide (Lasix) 20 mg 1X ONCE IVP Last administered on 09/22/17 17:55; Start 09/22/17 at 18:00; Stop 09/22/17 at 18:01; Status DC Furosemide (Lasix) 20 mg DAILY IVP Last administered on 09/23/17 13:16; Start 09/23/17 at 11:30; Stop 09/24/17 at 08:40; Status DC Methylprednisolone Sodium Succinate (SOLU-Medrol 125MG VIAL) 80 mg Q8HRS IV Last administered on 09/30/17 05:47; Start 09/23/17 at 14:00; Stop 09/30/17 at 09:26; Status DC Fentanyl Citrate 55 ml @ 0 mls/hr CONT PRN PRN IV PER PROTOCOL Last administered on 09/28/17 19:13; Start 09/23/17 at 12:15; Stop 09/30/17 at 09 :21; Status DC Dextrose 1,000 ml @ 25 mls/hr Q24H IV Last administered on 09/28/17 12:59; Start 09/23/17 at 11:45 Enoxaparin Sodium (Lovenox Per Pharmacy Prophylaxis Dosing) 1 each PRN DAILY PRN MC SEE COMMENTS; Start 09/23/17 at 16:30; Stop 09/24/17 at 08:41; Status DC Enoxaparin Sodium (Lovenox 40mg Syringe) 40 mg Q24H SQ Last administered on 17:27; Start 09/23/17 at 17:00 Bisacodyl (Dulcolax Tab) 5 mg PRN DAILY PRN PO CONSTIPATION; Start 09/24/17 at 09:30 Insulin Aspart (NovoLOG) 0-5 UNITS Q6HRS SQ Last administered on 09/29/17 12: 27; Start 09/25/17 at 18:00; Stop 10/01/17 at 02:54; Status DC Dextrose (Dextrose 50%-Water Syringe) 12.5 gm PRN Q15MIN PRN IV SEE COMMENTS; Start 09/25/17 at 12:30; Stop 10/01/17 at 02:54; Status DC Dextrose/Sodium Chloride 1,000 ml @ 75 mls/hr [id number] IV Last administered on 10/02/17 01:23; Start 09/29/17 at 19:00; Stop 10/02/17 at 09:07; Status DC Ondansetron HCl (Zofran) 4 mg PRN Q6HRS PRN IV NAUSEA/VOMITING Last administered on 10/01/17 20:33; Start 09/29/17 at 20:00 Albuterol/ Ipratropium (Duoneb) 3 ml TID NEB Last administered on 10/04/17 07 :09; Start 09/30/17 at 14:00 Methylprednisolone Sodium Succinate (SOLU-Medrol 125MG VIAL) 80 mg Q12HR IV Last administered on 10/01/17 08:56; Start 09/30/17 at 21:00; Stop 10/01/17 at 10:22; Status DC Iron Sucrose 500 mg/Sodium Chloride 275 ml @ 78.571 mls/ hr 1X ONCE IV Last administered on 10/01/17 10:08; Start 10/01/17 at 09:30; Stop 10/01/17 at 12 :59; Status DC Methylprednisolone Sodium Succinate (SOLU-Medrol 40MG VIAL) 40 mg Q12HR IV ; Start 10/01/17 at 21:00; Stop 10/01/17 at 21:00; Status DC Alprazolam (Xanax) 0.25 mg PRN Q8HRS PRN PO ANXIETY / AGITATION; Start at 10:30 Quetiapine Fumarate (SEROquel) 50 mg HS PO Last administered on 10/03/17 20: 11; Start 10/01/17 at 21:00 Methylprednisolone Sodium Succinate (SOLU-Medrol 40MG VIAL) 40 mg QHS IV Last administered on 10/01/17 20:32; Start 10/01/17 at 21:00; Stop 10/02/17 at 10 :36; Status DC Saliva Substitute (Biotene Moisturizing Mouth) 2 spray PRN Q15MIN PRN PO DRY MOUTH; Start 10/02/17 at 09:15 Info 1 each PRN DAILY PRN MC SEE COMMENTS Last administered on 10/03/17 12:40 ; Start 10/02/17 at 09:15 Amino Acids/ Glycerin/ Electrolytes 1,000 ml @ 100 mls/hr Q10H IV Last administered on 10/02/17 09:57; Start 10/02/17 at 10:00; Stop 10/02/17 at 19 :59; Status DC Methylprednisolone Sodium Succinate (SOLU-Medrol 40MG VIAL) 20 mg QHS IV Last administered on 10/02/17 21:38; Start 10/02/17 at 21:00; Stop 10/03/17 at 12 :46; Status DC Sodium Acetate 40 meq/Potassium Chloride 50 meq/ Potassium Phosphate 13.6 mmol/ Magnesium Sulfate 10 meq/ Calcium Gluconate 10 meq/ Multivitamins 10 ml/Chromium / Copper/Manganese/ Seleni/Zn 1 ml/ Total Parenteral Nutrition/Amino Acids/ Dextrose/ Fat Emulsion Intravenous 1,512 ml @ 63 mls/hr TPN CONT IV Last administered on 10/02/17 21:37; Start 10/02/17 at 22:00; Stop 10/03/17 at 21 :59; Status DC Morphine Sulfate 2 mg PRN Q2HR PRN IV SEVERE PAIN Last administered on 04:47; Start 10/03/17 at 06:00 Lorazepam (Ativan) 1 mg PRN Q4HRS PRN IV ANXIETY / AGITATION Last administered on 10/04/17 01:15; Start 10/03/17 at 06:00 Potassium Phosphate 13.6 mmol/Sodium Chloride 104.5333 ml @ 52.267 m... Q2H IV Last administered on 10/03/17 17:28; Start 10/03/17 at 12:00; Stop at 15:59; Status DC Potassium Acetate 70 meq/Potassium Phosphate 13.6 mmol/Magnesium Sulfate 10 meq / Calcium Gluconate 10 meq/ Multivitamins 10 ml/Chromium/ Copper/Manganese/ Seleni/Zn 1 ml/ Total Parenteral Nutrition/Amino Acids/Dextrose/ Fat Emulsion Intravenous 1,992 ml @ 83 mls/hr TPN CONT IV Last administered on 10/03/17 22:00; Start 10/03/17 at 22:00; Stop 10/04/17 at 21:59 Vitamin A/Vitamin D (Vitamin A & D Ointment) 1 joe PRN BID PRN TP SKIN PROTECTION Last administered on 10/04/17 01:28; Start 10/03/17 at 14:00 Active Scripts Active Reported Gabapentin 300 Mg Capsule 300 Mg PO TID Cymbalta (Duloxetine Hcl) 60 Mg Capsule. 1 Cap PO BID Hydrochlorothiazide Tablet (Hydrochlorothiazide) 25 Mg Tablet 1 Tab PO DAILY Xanax (Alprazolam) 1 Mg Tablet 1 Tab PO TID PRN Vitals/I & O Vital Sign - Last 24 Hours 10/03/17 10/03/17 10/03/17 10/03/17 10:17 10:46 10:52 12:23 Temp 98.3 98.3 Pulse 87 Resp 20 16 B/P (MAP) 154/95 (114) Pulse Ox 94 95 O2 Delivery Room Air Room Air Room Air O2 Flow Rate 2.0 2.0 10/03/17 10/03/17 10/03/17 10/03/17 19:07 19:08 19:57 20:00 Temp 97.7 97.7 Pulse 83 Resp 16 B/P (MAP) 127/75 (92) Pulse Ox 99 99 96 O2 Delivery Room Air Room Air Room Air Room Air 1110/03/17 10/04/17 10/04/17 20:12 23:30 02:15 03:46 Temp 97.9 97.9 Pulse 100 Resp 22 B/P (MAP) 142/94 (110) Pulse Ox 96 97 97 O2 Delivery Room Air Room Air Room Air Room Air 10/04/17 10/04/17 10/04/17 10/04/17 04:47 05:17 07:11 07:59 Temp 98.5 98.5 Pulse 93 Resp 22 20 B/P (MAP) 163/104 (123) Pulse Ox 99 99 99 98 O2 Delivery Room Air Room Air Room Air Room Air Intake and Output 10/03/17 10/03/17 10/04/17 15:00 23:00 07:00 Intake Total 50 ml 340 ml Output Total 850 ml 700 ml Balance -800 ml -360 ml ABELARDO MOORE MD Oct 04, 2017 08:22
--- NOTE | 2017-10-04 08:52 | PDOC ---
Subjective: Subjective: Feeling pretty good but gassy. No further emesis or dark stools. Tolerating PO. Asking about going home. Objective: Vital Signs: Vital Signs Date Time Temp Pulse Resp B/P (MAP) Pulse Ox O2 Delivery O2 Flow Rate FiO2 10/04/17 07:59 98.5 93 20 163/104 (123) 98 Room Air 98.5 10/03/17 10:46 2.0 Labs: Laboratory Tests Test 10/04/17 05:15 Erythrocyte Sedimentation Rate 20 Sodium Level 146 mmol/L Potassium Level 4.0 mmol/L Chloride Level 119 mmol/L Carbon Dioxide Level 19 mmol/L Anion Gap 8 Blood Urea Nitrogen 35 mg/dL Creatinine 0.6 mg/dL Estimated GFR (Cockcroft-Gault) 102.0 Glucose Level 111 mg/dL Calcium Level 7.8 mg/dL Phosphorus Level 2.8 mg/dL Magnesium Level 1.9 mg/dL Imaging: Head CT 10/03/17 IMPRESSION: 1. Moderate bilateral deep white matter lucencies compatible with chronic ischemic change. 2. No acute intracranial abnormality is detected. 3. MR scanning would be a more sensitive method of further evaluation, if clinically indicated. PE: GEN: NAD LUNGS: clear HEART: tachycardic ABD: a bit more distended today, soft, non-tender, BS+ NEURO/PSYCH: better A/P: STUART -dark stools/emesis resolved -on TPN, now tolerating PO Resp failure - improved Delirium/anxiety - improved -- Change PPI to PO. Defer TPN to primary. Add Gas-X. Hemogram pending. SHAHLA FISHER Oct 04, 2017 08:52
[2017-10-04] MEDS ORDERED: POLYETHYLENE GLYCOL 3350 17 GM PACKET. PO PRN (09:00)
--- NOTE | 2017-10-04 09:14 | PDOC ---
PULMONARY PROGRESS NOTES Subjective EXTUBATED 09/29 ANXIOUS/ IMPROVING DELIRIUM WEAK OFF 02 Vitals Vital Signs Date Time Temp Pulse Resp B/P (MAP) Pulse Ox O2 Delivery O2 Flow Rate FiO2 10/04/17 09:12 Room Air 10/04/17 07:59 98.5 93 20 163/104 (123) 98 98.5 10/03/17 10:46 2.0 General: Alert Lungs: Clear Cardiovascular: S1, S2 Abdomen: Soft Neuro Exam: Alert Extremities: Other (WEAKNESS,1+EDEMA) Skin: Warm Labs Laboratory Tests Test 10/02/17 11:22 10/02/17 16:57 10/02/17 17:20 10/03/17 08:45 Glucose (Fingerstick) 94 mg/dL (70-99) 97 mg/dL (70-99) White Blood Count 18.3 x10^3/uL (4.0-11.0) 16.9 x10^3/uL (4.0-11.0) Red Blood Count 3.34 x10^6/uL (3.50-5.40) 3.18 x10^6/uL (3.50-5.40) Hemoglobin 9.1 g/dL (12.0-15.5) 8.8 g/dL (12.0-15.5) Hematocrit 28.7 % (36.0-47.0) 27.9 % (36.0-47.0) Mean Corpuscular Volume 86 fL (79-100) 88 fL (79-100) Mean Corpuscular Hemoglobin 27 pg (25-35) 28 pg (25-35) Mean Corpuscular Hemoglobin Concent 32 g/dL (31-37) 32 g/dL (31-37) Red Cell Distribution Width 22.5 % (11.5-14.5) 23.2 % (11.5-14.5) Platelet Count 329 x10^3/uL (140-400) 310 x10^3/uL (140-400) Sodium Level 148 mmol/L (136-145) Potassium Level 3.2 mmol/L (3.5-5.1) Chloride Level 118 mmol/L (98-107) Carbon Dioxide Level 21 mmol/L (21-32) Anion Gap 9 (6-14) Blood Urea Nitrogen 35 mg/dL (7-20) Creatinine 0.7 mg/dL (0.6-1.0) Estimated GFR (Cockcroft-Gault) 85.4 Glucose Level 157 mg/dL (70-99) Calcium Level 8.1 mg/dL (8.5-10.1) Phosphorus Level 2.7 mg/dL (2.6-4.7) Magnesium Level 2.2 mg/dL (1.8-2.4) Test 10/04/17 05:15 Erythrocyte Sedimentation Rate 20 (0-25) Sodium Level 146 mmol/L (136-145) Potassium Level 4.0 mmol/L (3.5-5.1) Chloride Level 119 mmol/L (98-107) Carbon Dioxide Level 19 mmol/L (21-32) Anion Gap 8 (6-14) Blood Urea Nitrogen 35 mg/dL (7-20) Creatinine 0.6 mg/dL (0.6-1.0) Estimated GFR (Cockcroft-Gault) 102.0 Glucose Level 111 mg/dL (70-99) Calcium Level 7.8 mg/dL (8.5-10.1) Phosphorus Level 2.8 mg/dL (2.6-4.7) Magnesium Level 1.9 mg/dL (1.8-2.4) Laboratory Tests Test 10/04/17 05:15 Erythrocyte Sedimentation Rate 20 (0-25) Sodium Level 146 mmol/L (136-145) Potassium Level 4.0 mmol/L (3.5-5.1) Chloride Level 119 mmol/L (98-107) Carbon Dioxide Level 19 mmol/L (21-32) Anion Gap 8 (6-14) Blood Urea Nitrogen 35 mg/dL (7-20) Creatinine 0.6 mg/dL (0.6-1.0) Estimated GFR (Cockcroft-Gault) 102.0 Glucose Level 111 mg/dL (70-99) Calcium Level 7.8 mg/dL (8.5-10.1) Phosphorus Level 2.8 mg/dL (2.6-4.7) Magnesium Level 1.9 mg/dL (1.8-2.4) Medications Active Scripts Medications Dose Route/Sig Max Daily Dose Days Date Category Gabapentin 300 Mg Capsule 300 Mg PO TID 09/18/17 Reported Cymbalta (Duloxetine Hcl) 60 Mg Capsule.dr 1 Cap PO BID 09/18/17 Reported Hydrochlorothiazide Tablet (Hydrochlorothiazide) 25 Mg Tablet 1 Tab PO DAILY 09/17/17 Reported Xanax (Alprazolam) 1 Mg Tablet 1 Tab PO TID PRN 09/17/17 Reported Comments CXR 10/01 overall improving infiltrates Impression . 1. Acute hypoxic respiratory failure/ARDS/ S/P EXTUBATION, ON RA now 2. Anemia ongoing/ GI following 3. COPD/ compensated 4. Acute renal failure, stable 5. Sepsis with hypotension POA, resolved 6. S/P Bronch so far BAL negative 7. Critical care induced myopathy 8. bilateral interstitial infiltrates , ? etiology, suspect viral, improved 9. medication induced delirium/ Improving 10. Anxiety disorder Plan . PRN OXYGEN SPOKE WITH AT BEDSIDE/ delirium will takes weeks to be better, slowly improving SPEECH, PT/ DYSPHAGIA DIET/ TPN taper off DVT PROPH / ON LOVENOX. MONITOR HB ALL CULTURES NEGATIVE ANCA NEGATIVE OFF STEROIDS ANTIBIOTICS PER ID WILL NEED AGGRESSIVE REHAB JORGE LEDESMA MD Oct 04, 2017 09:14
--- NOTE | 2017-10-04 09:23 | PDOC ---
PROGRESS NOTES Subjective Subjective She admits gas problems in her stomach. Objective Objective Vital Signs Date Time Temp Pulse Resp B/P (MAP) Pulse Ox O2 Delivery O2 Flow Rate FiO2 10/04/17 09:12 Room Air 10/04/17 07:59 98.5 93 20 163/104 (123) 98 98.5 10/03/17 10:46 2.0 Intake and Output 10/04/17 07:00 Intake Total 390 ml Output Total 1550 ml Balance -1160 ml Intake Oral 390 ml Output Urine Total 1550 ml Physical Exam Physical Exam She is supine in bed and awake and talking and follow ing commands. She continues with generalized muscle weakness,more so of dstal extremity muscles, especially of her feet with bilateral foot drop.She continues with edema of her feet and legs.She continues to require maximal help with transfers and cognitive problems persist. Assessment Assessment Problems Medical Problems: (1) Dyspnea Status: Acute (2) Hypoalbuminemia Status: Acute (3) Metabolic acidosis Status: Acute (4) Pneumonia Status: Acute Plan Plan of Care To continue present rehab efforts as tolerated and to rehab unit when medically stable early next week.To get her bilateral AFOs to help with her foot drop. Comment Review of Relevant I have reviewed the following items tha (where applicable) has been applied. Labs Laboratory Tests Test 10/02/17 11:22 10/02/17 16:57 10/02/17 17:20 10/03/17 08:45 Glucose (Fingerstick) 94 mg/dL (70-99) 97 mg/dL (70-99) White Blood Count 18.3 x10^3/uL (4.0-11.0) 16.9 x10^3/uL (4.0-11.0) Red Blood Count 3.34 x10^6/uL (3.50-5.40) 3.18 x10^6/uL (3.50-5.40) Hemoglobin 9.1 g/dL (12.0-15.5) 8.8 g/dL (12.0-15.5) Hematocrit 28.7 % (36.0-47.0) 27.9 % (36.0-47.0) Mean Corpuscular Volume 86 fL (79-100) 88 fL (79-100) Mean Corpuscular Hemoglobin 27 pg (25-35) 28 pg (25-35) Mean Corpuscular Hemoglobin Concent 32 g/dL (31-37) 32 g/dL (31-37) Red Cell Distribution Width 22.5 % (11.5-14.5) 23.2 % (11.5-14.5) Platelet Count 329 x10^3/uL (140-400) 310 x10^3/uL (140-400) Sodium Level 148 mmol/L (136-145) Potassium Level 3.2 mmol/L (3.5-5.1) Chloride Level 118 mmol/L (98-107) Carbon Dioxide Level 21 mmol/L (21-32) Anion Gap 9 (6-14) Blood Urea Nitrogen 35 mg/dL (7-20) Creatinine 0.7 mg/dL (0.6-1.0) Estimated GFR (Cockcroft-Gault) 85.4 Glucose Level 157 mg/dL (70-99) Calcium Level 8.1 mg/dL (8.5-10.1) Phosphorus Level 2.7 mg/dL (2.6-4.7) Magnesium Level 2.2 mg/dL (1.8-2.4) Test 10/04/17 05:15 Erythrocyte Sedimentation Rate 20 (0-25) Sodium Level 146 mmol/L (136-145) Potassium Level 4.0 mmol/L (3.5-5.1) Chloride Level 119 mmol/L (98-107) Carbon Dioxide Level 19 mmol/L (21-32) Anion Gap 8 (6-14) Blood Urea Nitrogen 35 mg/dL (7-20) Creatinine 0.6 mg/dL (0.6-1.0) Estimated GFR (Cockcroft-Gault) 102.0 Glucose Level 111 mg/dL (70-99) Calcium Level 7.8 mg/dL (8.5-10.1) Phosphorus Level 2.8 mg/dL (2.6-4.7) Magnesium Level 1.9 mg/dL (1.8-2.4) Laboratory Tests Test 10/04/17 05:15 Erythrocyte Sedimentation Rate 20 (0-25) Sodium Level 146 mmol/L (136-145) Potassium Level 4.0 mmol/L (3.5-5.1) Chloride Level 119 mmol/L (98-107) Carbon Dioxide Level 19 mmol/L (21-32) Anion Gap 8 (6-14) Blood Urea Nitrogen 35 mg/dL (7-20) Creatinine 0.6 mg/dL (0.6-1.0) Estimated GFR (Cockcroft-Gault) 102.0 Glucose Level 111 mg/dL (70-99) Calcium Level 7.8 mg/dL (8.5-10.1) Phosphorus Level 2.8 mg/dL (2.6-4.7) Magnesium Level 1.9 mg/dL (1.8-2.4) Microbiology 09/17/17 Blood Culture - Final, Complete NO GROWTH AFTER 5 DAYS 09/20/17 AFB Specimen Processing Tissue - Final, Resulted 09/20/17 Acid Fast Bacilli Culture, Resulted Pending 09/20/17 Gram Stain - Final, Resulted 09/20/17 Fungal Culture - Preliminary, Resulted 09/20/17 Fungal Culture Result 1 - Preliminary, Resulted Medications Current Medications Sodium Chloride 1,000 ml @ 125 mls/hr 1X ONCE IV Last administered on 15:54; Start 09/17/17 at 15:15; Stop 09/17/17 at 23:14; Status DC Ondansetron HCl (Zofran) 4 mg PRN Q8HRS PRN IV NAUSEA/VOMITING; Start at 16:30; Stop 09/18/17 at 16:29; Status DC Ceftriaxone Sodium 50 ml @ 0 mls/hr 1X ONCE IV Last administered on 17:33; Start 09/17/17 at 16:45; Stop 09/17/17 at 16:46; Status DC Azithromycin 250 ml @ 250 mls/hr 1X ONCE IV Last administered on 09/17/17 22:38; Start 09/17/17 at 16:30; Stop 09/17/17 at 17:29; Status DC Albuterol/ Ipratropium (Duoneb) 3 ml 1X ONCE NEB Last administered on 17:00; Start 09/17/17 at 16:45; Stop 09/17/17 at 16:46; Status DC Potassium Chloride (Klor-Con) 40 meq 1X ONCE PO Last administered on 16:57; Start 09/17/17 at 16:45; Stop 09/17/17 at 16:46; Status DC Azithromycin (Zithromax) 250 mg DAILY PO Last administered on 09/18/17 10:25 ; Start 09/18/17 at 09:00; Stop 09/19/17 at 10:30; Status DC Ceftriaxone Sodium 1 gm/ Dextrose 50 ml @ 100 mls/hr Q24H IV ; Start 09/17/17 at 17:15; Status UNV Albuterol/ Ipratropium (Duoneb) 3 ml Q4HRS NEB Last administered on 09/30/17 08:11; Start 09/17/17 at 20:00; Stop 09/30/17 at 09:21; Status DC Ceftriaxone Sodium (Rocephin) 1 gm Q24H IVP Last administered on 09/18/17 17: 55; Start 09/18/17 at 16:00; Stop 09/19/17 at 10:30; Status DC Guaifenesin (Robitussin Dm) 10 ml PRN Q6HRS PRN PO COUGH; Start 09/17/17 at 17 :15; Stop 09/30/17 at 09:21; Status DC Sodium Chloride 1,000 ml @ 125 mls/hr 1X ONCE IV Last administered on 17:45; Start 09/17/17 at 17:15; Stop 09/17/17 at 22:12; Status DC Info (Do NOT chart on this placeholder) 1 each 1X ONCE MC ; Start 09/17/17 at 19:00; Stop 09/17/17 at 19:01; Status UNV Influenza Virus Vaccine Quadrival (Fluarix Quad [id number] Syringe) 0.5 ml ONCE ONCE VAX IM Last administered on 09/17/17 21:00; Start 09/17/17 at 21:00; Stop 09/17/17 at 21:01; Status DC Sodium Chloride 1,000 ml @ 130 mls/hr 1X ONCE IV Last administered on 22:31; Start 09/17/17 at 22:30; Stop 09/18/17 at 06:11; Status DC Sodium Bicarbonate 50 meq 1X ONCE IV Last administered on 09/17/17 22:31; Start 09/17/17 at 22:30; Stop 09/17/17 at 22:31; Status DC Alprazolam (Xanax) 1 mg PRN TID PRN PO ANXIETY Last administered on 09/19/17 02:19; Start 09/17/17 at 22:30; Stop 09/30/17 at 09:21; Status DC Furosemide (Lasix) 20 mg 1X ONCE IVP Last administered on 09/18/17 06:24; Start 09/18/17 at 06:30; Stop 09/18/17 at 06:31; Status DC Potassium Chloride (Klor-Con) 40 meq 1X ONCE PO Last administered on 10:25; Start 09/18/17 at 09:00; Stop 09/18/17 at 09:01; Status DC Iron Sucrose 500 mg/Sodium Chloride 275 ml @ 78.571 mls/ hr 1X ONCE IV Last administered on 09/18/17 10:24; Start 09/18/17 at 09:00; Stop 09/18/17 at 12 :29; Status DC Furosemide (Lasix) 20 mg 1X ONCE IVP Last administered on 09/18/17 10:30; Start 09/18/17 at 10:00; Stop 09/18/17 at 10:22; Status DC Pantoprazole Sodium (Protonix) 40 mg DAILYAC PO Last administered on 10:47; Start 09/18/17 at 11:00; Stop 09/19/17 at 13:41; Status DC Furosemide (Lasix) 20 mg 1X ONCE IVP Last administered on 09/18/17 10:47; Start 09/18/17 at 10:45; Stop 09/18/17 at 10:46; Status DC Potassium Chloride (Klor-Con) 40 meq 1X ONCE PO ; Start 09/18/17 at 11:45; Stop 09/18/17 at 11:46; Status DC Oxycodone/ Acetaminophen (Percocet 5/325) 1 tab PRN Q6HRS PRN PO PAIN Last administered on 09/18/17 13:23; Start 09/18/17 at 12:15 Lorazepam (Ativan) 1 mg PRN Q4HRS PRN IV ANXIETY / AGITATION Last administered on 09/18/17 12:25; Start 09/18/17 at 12:15; Stop 09/18/17 at 13:34; Status DC Fentanyl Citrate (Fentanyl 2ml Vial) 50 mcg PRN Q2HR PRN IV PAIN Last administered on 09/19/17 04:09; Start 09/18/17 at 12:15; Stop 09/30/17 at 09 :21; Status DC Lorazepam (Ativan) 2 mg PRN Q4HRS PRN IV ANXIETY / AGITATION Last administered on 09/29/17 05:17; Start 09/18/17 at 13:30; Stop 09/30/17 at 09:21; Status DC Quetiapine Fumarate (SEROquel) 25 mg HS PO Last administered on 09/18/17 21: 03; Start 09/18/17 at 21:00; Stop 09/19/17 at 10:35; Status DC Haloperidol Lactate (Haldol) 5 mg PRN Q12HRS PRN IVP AGITATION; Start at 13:45 Lorazepam (Ativan) 1 mg PRN Q4HRS PRN IV ANXIETY / AGITATION; Start 09/19/17 at 10:15; Stop 09/19/17 at 10:18; Status DC Lorazepam (Ativan) 4 mg 1X ONCE IV ; Start 09/19/17 at 10:30; Stop 09/19/17 at 10:31; Status DC Vancomycin HCl (Vanco Per Pharmacy) 1 each PRN DAILY PRN MC SEE COMMENTS Last administered on 09/23/17 12:36; Start 09/19/17 at 10:30; Stop 09/24/17 at 08 :36; Status DC Piperacillin Sod/ Tazobactam Sod (Zosyn Per Pharmacy) 1 each PRN DAILY PRN MC SEE COMMENTS; Start 09/19/17 at 10:30; Stop 09/24/17 at 08:41; Status DC Vancomycin HCl 2 gm/Dextrose 500 ml @ 250 mls/hr 1X ONCE IV Last administered on 09/19/17 14:53; Start 09/19/17 at 11:00; Stop 09/19/17 at 12 :59; Status DC Piperacillin Sod/ Tazobactam Sod (Zosyn) 3.375 gm Q6HRS IVP Last administered on 10/02/17 17:13; Start 09/19/17 at 11:00; Stop 10/02/17 at 19:14; Status DC Budesonide (Pulmicort) 0.5 mg RTBID NEB Last administered on 10/04/17 07:09; Start 09/19/17 at 20:00 Budesonide (Pulmicort) 0.5 mg 1X ONCE NEB Last administered on 09/19/17 12: 50; Start 09/19/17 at 10:45; Stop 09/19/17 at 10:46; Status DC Pantoprazole Sodium (PROTONIX VIAL for IV PUSH) 40 mg DAILYAC IVP Last administered on 10/03/17 08:23; Start 09/19/17 at 11:30; Stop 10/04/17 at 08 :51; Status DC Furosemide (Lasix) 40 mg DAILY IVP ; Start 09/19/17 at 11:00; Stop 09/20/17 at 13:20; Status DC Methylprednisolone Sodium Succinate (SOLU-Medrol 125MG VIAL) 125 mg 1X ONCE IV Last administered on 09/19/17 13:23; Start 09/19/17 at 10:45; Stop at 10:46; Status DC Prednisone (Prednisone) 40 mg DAILY PO ; Start 09/19/17 at 11:00; Stop at 09:02; Status DC Methylprednisolone Sodium Succinate (SOLU-Medrol 125MG VIAL) 125 mg Q8HRS IV Last administered on 09/23/17 05:43; Start 09/19/17 at 14:00; Stop 09/23/17 at 10:40; Status DC Midazolam HCl 100 ml @ 0 mls/hr CONT PRN IV SEE I/O RECORD; Start 09/19/17 at 11:00; Stop 09/19/17 at 12:51; Status DC Midazolam HCl (Versed) 5 mg 1X ONCE IV ; Start 09/19/17 at 11:00; Stop at 11:01; Status DC Fentanyl Citrate (Fentanyl 2ml Vial) 50 mcg 1X ONCE IV ; Start 09/19/17 at 11: 00; Stop 09/19/17 at 11:01; Status DC Midazolam HCl 100 ml @ As Directed STK-MED ONCE IV ; Start 09/19/17 at 10:55; Stop 09/19/17 at 10:56; Status DC Midazolam HCl (Versed) 5 mg STK-MED ONCE .ROUTE ; Start 09/19/17 at 10:55; Stop 09/19/17 at 10:56; Status DC Propofol 100 ml @ As Directed STK-MED ONCE IV ; Start 09/19/17 at 10:59; Stop 09/19/17 at 11:00; Status DC Norepinephrine Bitartrate 250 ml @ As Directed STK-MED ONCE IV ; Start at 10:59; Stop 09/19/17 at 11:00; Status DC Furosemide (Lasix) 20 mg 1X ONCE IVP ; Start 09/19/17 at 11:15; Stop at 11:16; Status DC Vecuronium [place] (Norcuron Bolus) 10 mg STK-MED ONCE IV ; Start 09/19/17 at 11:21; Stop 09/19/17 at 11:22; Status DC Fentanyl Citrate 30 ml @ 0 mls/hr CONT PRN IV PROTOCOL Last administered on 15:08; Start 09/19/17 at 11:30; Stop 09/23/17 at 15:24; Status DC Vecuronium [place] (Norcuron Bolus) 6 mg 1X ONCE IV Last administered on 09/19 11:42; Start 09/19/17 at 11:30; Stop 09/19/17 at 11:39; Status DC Propofol 10 ml @ 0 mls/hr 1X ONCE IV Last administered on 09/19/17 11:30; Start 09/19/17 at 11:30; Stop 09/19/17 at 11:39; Status DC Midazolam HCl 100 ml @ 0 mls/hr CONT PRN IV SEE I/O RECORD Last administered on 09/27/17 00:40; Start 09/19/17 at 11:30; Stop 09/30/17 at 09:21; Status DC Norepinephrine Bitartrate 250 ml @ 0 mls/hr CONT PRN IV SEE I/O RECORD Last administered on 09/24/17 05:18; Start 09/19/17 at 11:30; Stop 09/30/17 at 09 :21; Status DC Succinylcholine Chloride (Anectine) 100 mg 1X ONCE IV Last administered on 11:42; Start 09/19/17 at 11:30; Stop 09/19/17 at 11:39; Status DC Sodium Bicarbonate 50 meq 1X ONCE IV Last administered on 09/19/17 13:23; Start 09/19/17 at 12:45; Stop 09/19/17 at 12:46; Status DC Sodium Bicarbonate 50 meq 1X ONCE IV Last administered on 09/19/17 13:23; Start 09/19/17 at 12:45; Stop 09/19/17 at 12:46; Status DC Lidocaine/Sodium Bicarbonate (Buffered Lidocaine 1%) 20 ml STK-MED ONCE IJ ; Start 09/19/17 at 13:34; Stop 09/19/17 at 13:35; Status DC Vecuronium [place] (Norcuron Bolus) 10 mg 1X ONCE IV Last administered on 15:05; Start 09/19/17 at 14:00; Stop 09/19/17 at 14:02; Status DC Lidocaine/Sodium Bicarbonate (Buffered Lidocaine 1%) 3 ml 1X ONCE IJ ; Start 09/19/17 at 14:45; Stop 09/19/17 at 14:46; Status DC Vancomycin HCl 1.25 gm/Dextrose 250 ml @ 166.667 mls/hr Q24H IV Last administered on 09/23/17 17:19; Start 09/20/17 at 15:00; Stop 09/24/17 at 08 :35; Status DC Vancomycin HCl 1 each 1X ONCE MC Last administered on 09/21/17 14:30; Start 09/21/17 at 14:30; Stop 09/21/17 at 14:31; Status DC Azithromycin 500 mg/Sodium Chloride 250 ml @ 250 mls/hr Q24H IV Last administered on 09/23/17 17:19; Start 09/19/17 at 16:30; Stop 09/24/17 at 08 :35; Status DC Norepinephrine Bitartrate (Levophed 8mg/ 250ml Premix Drip) 8 mg STK-MED ONCE IV ; Start 09/19/17 at 11:00; Stop 09/20/17 at 08:44; Status DC Midazolam HCl (Versed) 5 mg STK-MED ONCE .ROUTE ; Start 09/19/17 at 11:00; Stop 09/20/17 at 08:44; Status DC Amino Acids/ Glycerin/ Electrolytes 1,000 ml @ 80 mls/hr [id number] IV Last administered on 09/21/17 01:21; Start 09/20/17 at 10:00; Stop 09/22/17 at 07 :02; Status DC Info 1 each PRN DAILY PRN MC SEE COMMENTS; Start 09/20/17 at 10:00; Stop at 12:14; Status DC Furosemide (Lasix) 20 mg 1X ONCE IVP Last administered on 09/20/17 10:21; Start 09/20/17 at 10:15; Stop 09/20/17 at 10:18; Status DC Info 1 each PRN DAILY PRN MC SEE COMMENTS; Start 09/20/17 at 11:00; Status UNV Vecuronium [place] (Norcuron Bolus) 10 mg 1X ONCE IV Last administered on 12:03; Start 09/20/17 at 11:15; Stop 09/20/17 at 11:24; Status DC Atropine Sulfate 0.5 mg STK-MED ONCE .ROUTE ; Start 09/20/17 at 11:47; Stop at 11:48; Status DC Epinephrine HCl (EPINEPHrine SYRINGE) 1 mg STK-MED ONCE .ROUTE ; Start at 11:47; Stop 09/20/17 at 11:48; Status DC Atropine Sulfate 0.5 mg STK-MED ONCE .ROUTE ; Start 09/20/17 at 12:00; Stop at 09:11; Status DC Epinephrine HCl (EPINEPHrine SYRINGE) 1 mg STK-MED ONCE .ROUTE ; Start at 12:00; Stop 09/21/17 at 09:11; Status DC Furosemide (Lasix) 20 mg DAILY IVP ; Start 09/21/17 at 11:15; Stop 09/21/17 at 11:20; Status DC Lorazepam (Ativan) 1 mg PRN Q1HR PRN IV ANXIETY / AGITATION Last administered on 09/28/17 17:04; Start 09/21/17 at 11:15; Stop 09/30/17 at 09:21; Status DC Albumin Human 250 ml @ 62.5 mls/hr 1X ONCE IV Last administered on 11:57; Start 09/21/17 at 11:30; Stop 09/21/17 at 15:29; Status DC Albumin Human 250 ml @ 62.5 mls/hr 1X ONCE IV Last administered on 14:29; Start 09/21/17 at 11:30; Stop 09/21/17 at 15:29; Status DC Micafungin Sodium 100 mg/Dextrose 100 ml @ 100 mls/hr Q24H IV Last administered on 09/23/17 13:17; Start 09/21/17 at 12:00; Stop 09/24/17 at 08 :35; Status DC Vecuronium [place] (Norcuron Bolus) 4 mg PRN Q4HRS PRN IV AGITATION; Start at 15:00; Stop 09/30/17 at 09:21; Status DC Dexmedetomidine HCl 200 mcg/ Sodium Chloride 50 ml @ 0 mls/hr CONT PRN IV PER PROTOCOL Last administered on 09/21/17 15:54; Start 09/21/17 at 15:30; Stop 09/30/17 at 09:21; Status DC Sodium Chloride 500 ml @ 500 mls/hr 1X PRN PRN IV SEE COMMENTS; Start at 15:30 Atropine Sulfate 0.5 mg PRN Q5MIN PRN IV SEE COMMENTS; Start 09/21/17 at 15:30 Propofol 100 ml @ 0 mls/hr CONT PRN IV PER PROTOCOL Last administered on 14:35; Start 09/21/17 at 16:45; Stop 09/30/17 at 09:21; Status DC Furosemide (Lasix) 20 mg 1X ONCE IVP Last administered on 09/22/17 09:41; Start 09/22/17 at 10:15; Stop 09/22/17 at 10:16; Status DC Chlorhexidine Gluconate (Peridex) 15 ml BID MM Last administered on 09/29/17 08:07; Start 09/22/17 at 21:00; Stop 09/29/17 at 20:22; Status DC Furosemide (Lasix) 20 mg 1X ONCE IVP Last administered on 09/22/17 17:55; Start 09/22/17 at 18:00; Stop 09/22/17 at 18:01; Status DC Furosemide (Lasix) 20 mg DAILY IVP Last administered on 09/23/17 13:16; Start 09/23/17 at 11:30; Stop 09/24/17 at 08:40; Status DC Methylprednisolone Sodium Succinate (SOLU-Medrol 125MG VIAL) 80 mg Q8HRS IV Last administered on 09/30/17 05:47; Start 09/23/17 at 14:00; Stop 09/30/17 at 09:26; Status DC Fentanyl Citrate 55 ml @ 0 mls/hr CONT PRN PRN IV PER PROTOCOL Last administered on 09/28/17 19:13; Start 09/23/17 at 12:15; Stop 09/30/17 at 09 :21; Status DC Dextrose 1,000 ml @ 25 mls/hr Q24H IV Last administered on 09/28/17 12:59; Start 09/23/17 at 11:45 Enoxaparin Sodium (Lovenox Per Pharmacy Prophylaxis Dosing) 1 each PRN DAILY PRN MC SEE COMMENTS; Start 09/23/17 at 16:30; Stop 09/24/17 at 08:41; Status DC Enoxaparin Sodium (Lovenox 40mg Syringe) 40 mg Q24H SQ Last administered on 17:27; Start 09/23/17 at 17:00 Bisacodyl (Dulcolax Tab) 5 mg PRN DAILY PRN PO CONSTIPATION; Start 09/24/17 at 09:30 Insulin Aspart (NovoLOG) 0-5 UNITS Q6HRS SQ Last administered on 09/29/17 12: 27; Start 09/25/17 at 18:00; Stop 10/01/17 at 02:54; Status DC Dextrose (Dextrose 50%-Water Syringe) 12.5 gm PRN Q15MIN PRN IV SEE COMMENTS; Start 09/25/17 at 12:30; Stop 10/01/17 at 02:54; Status DC Dextrose/Sodium Chloride 1,000 ml @ 75 mls/hr [id number] IV Last administered on 10/02/17 01:23; Start 09/29/17 at 19:00; Stop 10/02/17 at 09:07; Status DC Ondansetron HCl (Zofran) 4 mg PRN Q6HRS PRN IV NAUSEA/VOMITING Last administered on 10/01/17 20:33; Start 09/29/17 at 20:00 Albuterol/ Ipratropium (Duoneb) 3 ml TID NEB Last administered on 10/04/17 07 :09; Start 09/30/17 at 14:00 Methylprednisolone Sodium Succinate (SOLU-Medrol 125MG VIAL) 80 mg Q12HR IV Last administered on 10/01/17 08:56; Start 09/30/17 at 21:00; Stop 10/01/17 at 10:22; Status DC Iron Sucrose 500 mg/Sodium Chloride 275 ml @ 78.571 mls/ hr 1X ONCE IV Last administered on 10/01/17 10:08; Start 10/01/17 at 09:30; Stop 10/01/17 at 12 :59; Status DC Methylprednisolone Sodium Succinate (SOLU-Medrol 40MG VIAL) 40 mg Q12HR IV ; Start 10/01/17 at 21:00; Stop 10/01/17 at 21:00; Status DC Alprazolam (Xanax) 0.25 mg PRN Q8HRS PRN PO ANXIETY / AGITATION; Start at 10:30 Quetiapine Fumarate (SEROquel) 50 mg HS PO Last administered on 10/03/17 20: 11; Start 10/01/17 at 21:00 Methylprednisolone Sodium Succinate (SOLU-Medrol 40MG VIAL) 40 mg QHS IV Last administered on 10/01/17 20:32; Start 10/01/17 at 21:00; Stop 10/02/17 at 10 :36; Status DC Saliva Substitute (Biotene Moisturizing Mouth) 2 spray PRN Q15MIN PRN PO DRY MOUTH; Start 10/02/17 at 09:15 Info 1 each PRN DAILY PRN MC SEE COMMENTS Last administered on 10/03/17 12:40 ; Start 10/02/17 at 09:15 Amino Acids/ Glycerin/ Electrolytes 1,000 ml @ 100 mls/hr Q10H IV Last administered on 10/02/17 09:57; Start 10/02/17 at 10:00; Stop 10/02/17 at 19 :59; Status DC Methylprednisolone Sodium Succinate (SOLU-Medrol 40MG VIAL) 20 mg QHS IV Last administered on 10/02/17 21:38; Start 10/02/17 at 21:00; Stop 10/03/17 at 12 :46; Status DC Sodium Acetate 40 meq/Potassium Chloride 50 meq/ Potassium Phosphate 13.6 mmol/ Magnesium Sulfate 10 meq/ Calcium Gluconate 10 meq/ Multivitamins 10 ml/Chromium / Copper/Manganese/ Seleni/Zn 1 ml/ Total Parenteral Nutrition/Amino Acids/ Dextrose/ Fat Emulsion Intravenous 1,512 ml @ 63 mls/hr TPN CONT IV Last administered on 10/02/17 21:37; Start 10/02/17 at 22:00; Stop 10/03/17 at 21 :59; Status DC Morphine Sulfate 2 mg PRN Q2HR PRN IV SEVERE PAIN Last administered on 09:12; Start 10/03/17 at 06:00 Lorazepam (Ativan) 1 mg PRN Q4HRS PRN IV ANXIETY / AGITATION Last administered on 10/04/17 01:15; Start 10/03/17 at 06:00 Potassium Phosphate 13.6 mmol/Sodium Chloride 104.5333 ml @ 52.267 m... Q2H IV Last administered on 10/03/17 17:28; Start 10/03/17 at 12:00; Stop at 15:59; Status DC Potassium Acetate 70 meq/Potassium Phosphate 13.6 mmol/Magnesium Sulfate 10 meq / Calcium Gluconate 10 meq/ Multivitamins 10 ml/Chromium/ Copper/Manganese/ Seleni/Zn 1 ml/ Total Parenteral Nutrition/Amino Acids/Dextrose/ Fat Emulsion Intravenous 1,992 ml @ 83 mls/hr TPN CONT IV Last administered on 10/03/17 22:00; Start 10/03/17 at 22:00; Stop 10/04/17 at 21:59 Vitamin A/Vitamin D (Vitamin A & D Ointment) 1 joe PRN BID PRN TP SKIN PROTECTION Last administered on 10/04/17 01:28; Start 10/03/17 at 14:00 Pantoprazole Sodium (Protonix) 40 mg DAILYAC PO ; Start 10/05/17 at 07:30 Simethicone (Gas-X) 80 mg PRN AFTMEALHC PRN PO GAS / BLOATING; Start 10/04/17 at 09:00 Polyethylene Glycol (miraLAX PACKET) 17 gm PRN DAILY PRN PO CONSTIPATION; Start 10/04/17 at 09:00 Active Scripts Active Reported Gabapentin 300 Mg Capsule 300 Mg PO TID Cymbalta (Duloxetine Hcl) 60 Mg Capsule. 1 Cap PO BID Hydrochlorothiazide Tablet (Hydrochlorothiazide) 25 Mg Tablet 1 Tab PO DAILY Xanax (Alprazolam) 1 Mg Tablet 1 Tab PO TID PRN Vitals/I & O Vital Sign - Last 24 Hours 10/03/17 10/03/17 10/03/17 10/03/17 10:17 10:46 10:52 12:23 Temp 98.3 98.3 Pulse 87 Resp 20 16 B/P (MAP) 154/95 (114) Pulse Ox 94 95 O2 Delivery Room Air Room Air Room Air O2 Flow Rate 2.0 2.0 10/03/17 10/03/17 10/03/17 10/03/17 19:07 19:08 19:57 20:00 Temp 97.7 97.7 Pulse 83 Resp 16 B/P (MAP) 127/75 (92) Pulse Ox 99 99 96 O2 Delivery Room Air Room Air Room Air Room Air 10/03/17 10/03/17 10/04/17 10/04/17 20:12 23:30 02:15 03:46 Temp 97.9 97.9 Pulse 100 Resp 22 B/P (MAP) 142/94 (110) Pulse Ox 96 97 97 O2 Delivery Room Air Room Air Room Air Room Air 10/04/17 10/04/17 10/04/17 10/04/17 04:47 05:17 07:11 07:59 Temp 98.5 98.5 Pulse 93 Resp 22 20 B/P (MAP) 163/104 (123) Pulse Ox 99 99 99 98 O2 Delivery Room Air Room Air Room Air Room Air 10/04/17 09:12 O2 Delivery Room Air Intake and Output 10/03/17 10/03/17 10/04/17 15:00 23:00 07:00 Intake Total 50 ml 340 ml Output Total 850 ml 700 ml Balance -800 ml -360 ml YELITZA MARROQUIN MD Oct 04, 2017 09:23
[2017-10-04 09:31] LABS: HEMATOCRIT 26.7 % (36.0-47.0); HEMOGLOBIN 8.2 g/dL (12.0-15.5); RED BLOOD COUNT 2.96 x10^6/uL (3.50-5.40); RED CELL DISTRIBUTION WIDTH 23.5 % (11.5-14.5); WHITE BLOOD COUNT 17.3 x10^3/uL (4.0-11.0)
[2017-10-04] MEDS: SIMETHICONE 80 MG TAB.CHEW PO PRN ×2 (10:17→21:09)
--- NOTE | 2017-10-04 10:33 | PDOC ---
Infectious Disease Note Subjective Subjective pt is alert ,awake has some gas, tolerating po intake No fever or diarrhea ROS ROS neg Vital Sign Vital Signs Vital Signs Date Time Temp Pulse Resp B/P (MAP) Pulse Ox O2 Delivery O2 Flow Rate FiO2 10/04/17 10:17 Room Air 10/04/17 07:59 98.5 93 20 163/104 (123) 98 98.5 10/03/17 10:46 2.0 Physical Exam PHYSICAL EXAM GENERAL: NAD, Alert HEENT: no icterus NECK: Supple, LUNGS: Clear HEART: S1S2, ABD: Soft, NT, no organomegaly, no rebound EXT: No edema, no cyanosis JOB SPOTTER: Alert, awake, no focal neurologic deficit weakness SKIN: No rash IV: ok Labs Lab Laboratory Tests Test 10/04/17 05:15 White Blood Count 17.3 x10^3/uL (4.0-11.0) Red Blood Count 2.96 x10^6/uL (3.50-5.40) Hemoglobin 8.2 g/dL (12.0-15.5) Hematocrit 26.7 % (36.0-47.0) Mean Corpuscular Volume 90 fL (79-100) Mean Corpuscular Hemoglobin 28 pg (25-35) Mean Corpuscular Hemoglobin Concent 31 g/dL (31-37) Red Cell Distribution Width 23.5 % (11.5-14.5) Platelet Count 304 x10^3/uL (140-400) Erythrocyte Sedimentation Rate 20 (0-25) Sodium Level 146 mmol/L (136-145) Potassium Level 4.0 mmol/L (3.5-5.1) Chloride Level 119 mmol/L (98-107) Carbon Dioxide Level 19 mmol/L (21-32) Anion Gap 8 (6-14) Blood Urea Nitrogen 35 mg/dL (7-20) Creatinine 0.6 mg/dL (0.6-1.0) Estimated GFR (Cockcroft-Gault) 102.0 Glucose Level 111 mg/dL (70-99) Calcium Level 7.8 mg/dL (8.5-10.1) Phosphorus Level 2.8 mg/dL (2.6-4.7) Magnesium Level 1.9 mg/dL (1.8-2.4) Micro reviewed Objective Assessment Acute hypoxic respiratory failure/ARDS stable Pulmonary infiltrates s/p Bronch negative,? viral improved Delirium COPD Anemia Critical care myopathy GEO stable Leucocytosis ? reactive was on steroids, no s/s of infection H/o Leg wounds with healed scars Influenza vaccine 09/17 - given C. diff neg, 09/28 Plan Plan of Care Observe off antibiotics elevated wbc likely sec to steroids if diarrhea, repeat c diff pcr cont supportive care JAMIE RODRIGUEZ MD Oct 04, 2017 10:33
[2017-10-04 10:55] VITALS: BP 136/74
[2017-10-04] MEDS: IV DEXTROSE 5% 1,000 ML IV SCH (11:45)
[2017-10-04] MEDS: oxyCODONE/APAP 5/325 1 TAB TABLET PO PRN (12:51)
[2017-10-04] MEDS: TPN PER PHARMACY MC PRN (13:28)
[2017-10-04 14:48] VITALS: BP 118/66
[2017-10-04] MEDS ORDERED: IOHEXOL 300 MG/ML 100ML VIAL. IV ONE (15:30)
[2017-10-04] MEDS ORDERED: CONTRAST GIVEN MC PRN (15:45)
--- NOTE | 2017-10-04 15:53 | PDOC ---
PROGRESS NOTES Assessment Problems Medical Problems: (1) Dyspnea Status: Acute (2) Hypoalbuminemia Status: Acute (3) Metabolic acidosis Status: Acute (4) Pneumonia Status: Acute Metabolic encephalopathy related to critical illness, much more alert today Critical illness neuropathy and myopathy Elevated ESR resolved Plan No need for further testing Discussed with patient and Subjective Complains of gassy feeling in her abdomen Objective Vital Signs Date Time Temp Pulse Resp B/P (MAP) Pulse Ox O2 Delivery O2 Flow Rate FiO2 10/04/17 14:48 97.8 93 17 118/66 (83) 99 Room Air 97.8 10/03/17 10:46 2.0 Intake and Output 10/04/17 07:00 Intake Total 390 ml Output Total 1550 ml Balance -1160 ml Intake Oral 390 ml Output Urine Total 1550 ml PHYSICAL EXAM Alert. Oriented to person, month, year, believes she is in [facility] but accepts redirection. PERRL. EOMI. CN: no focal findings. Muscle tone: normal. Muscle strength: 4/5 DTR: 1+ Plantar reflex: Flexor Gait: not examined in bed. Sensory exam: no abnormal findings. No cerebellar signs elicited. Review of Relevant I have reviewed the following items tha (where applicable) has been applied. Labs Laboratory Tests Test 10/02/17 16:57 10/02/17 17:20 10/03/17 08:45 10/04/17 05:15 Glucose (Fingerstick) 97 mg/dL (70-99) White Blood Count 18.3 x10^3/uL (4.0-11.0) 16.9 x10^3/uL (4.0-11.0) 17.3 x10^3/uL (4.0-11.0) Red Blood Count 3.34 x10^6/uL (3.50-5.40) 3.18 x10^6/uL (3.50-5.40) 2.96 x10^6/uL (3.50-5.40) Hemoglobin 9.1 g/dL (12.0-15.5) 8.8 g/dL (12.0-15.5) 8.2 g/dL (12.0-15.5) Hematocrit 28.7 % (36.0-47.0) 27.9 % (36.0-47.0) 26.7 % (36.0-47.0) Mean Corpuscular Volume 86 fL (79-100) 88 fL (79-100) 90 fL (79-100) Mean Corpuscular Hemoglobin 27 pg (25-35) 28 pg (25-35) 28 pg (25-35) Mean Corpuscular Hemoglobin Concent 32 g/dL (31-37) 32 g/dL (31-37) 31 g/dL (31-37) Red Cell Distribution Width 22.5 % (11.5-14.5) 23.2 % (11.5-14.5) 23.5 % (11.5-14.5) Platelet Count 329 x10^3/uL (140-400) 310 x10^3/uL (140-400) 304 x10^3/uL (140-400) Sodium Level 148 mmol/L (136-145) 146 mmol/L (136-145) Potassium Level 3.2 mmol/L (3.5-5.1) 4.0 mmol/L (3.5-5.1) Chloride Level 118 mmol/L (98-107) 119 mmol/L (98-107) Carbon Dioxide Level 21 mmol/L (21-32) 19 mmol/L (21-32) Anion Gap 9 (6-14) 8 (6-14) Blood Urea Nitrogen 35 mg/dL (7-20) 35 mg/dL (7-20) Creatinine 0.7 mg/dL (0.6-1.0) 0.6 mg/dL (0.6-1.0) Estimated GFR (Cockcroft-Gault) 85.4 102.0 Glucose Level 157 mg/dL (70-99) 111 mg/dL (70-99) Calcium Level 8.1 mg/dL (8.5-10.1) 7.8 mg/dL (8.5-10.1) Phosphorus Level 2.7 mg/dL (2.6-4.7) 2.8 mg/dL (2.6-4.7) Magnesium Level 2.2 mg/dL (1.8-2.4) 1.9 mg/dL (1.8-2.4) Erythrocyte Sedimentation Rate 20 (0-25) Laboratory Tests Test 10/04/17 05:15 White Blood Count 17.3 x10^3/uL (4.0-11.0) Red Blood Count 2.96 x10^6/uL (3.50-5.40) Hemoglobin 8.2 g/dL (12.0-15.5) Hematocrit 26.7 % (36.0-47.0) Mean Corpuscular Volume 90 fL (79-100) Mean Corpuscular Hemoglobin 28 pg (25-35) Mean Corpuscular Hemoglobin Concent 31 g/dL (31-37) Red Cell Distribution Width 23.5 % (11.5-14.5) Platelet Count 304 x10^3/uL (140-400) Erythrocyte Sedimentation Rate 20 (0-25) Sodium Level 146 mmol/L (136-145) Potassium Level 4.0 mmol/L (3.5-5.1) Chloride Level 119 mmol/L (98-107) Carbon Dioxide Level 19 mmol/L (21-32) Anion Gap 8 (6-14) Blood Urea Nitrogen 35 mg/dL (7-20) Creatinine 0.6 mg/dL (0.6-1.0) Estimated GFR (Cockcroft-Gault) 102.0 Glucose Level 111 mg/dL (70-99) Calcium Level 7.8 mg/dL (8.5-10.1) Phosphorus Level 2.8 mg/dL (2.6-4.7) Magnesium Level 1.9 mg/dL (1.8-2.4) Microbiology 09/17/17 Blood Culture - Final, Complete NO GROWTH AFTER 5 DAYS 09/20/17 AFB Specimen Processing Tissue - Final, Resulted 09/20/17 Acid Fast Bacilli Culture, Resulted Pending 09/20/17 Gram Stain - Final, Resulted 09/20/17 Fungal Culture - Preliminary, Resulted 09/20/17 Fungal Culture Result 1 - Preliminary, Resulted Medications Current Medications Sodium Chloride 1,000 ml @ 125 mls/hr 1X ONCE IV Last administered on t 15:54; Start 09/17/17 at 15:15; Stop 09/17/17 at 23:14; Status DC Ondansetron HCl (Zofran) 4 mg PRN Q8HRS PRN IV NAUSEA/VOMITING; Start at 16:30; Stop 09/18/17 at 16:29; Status DC Ceftriaxone Sodium 50 ml @ 0 mls/hr 1X ONCE IV Last administered on 17:33; Start 09/17/17 at 16:45; Stop 09/17/17 at 16:46; Status DC Azithromycin 250 ml @ 250 mls/hr 1X ONCE IV Last administered on 09/17/17 22:38; Start 09/17/17 at 16:30; Stop 09/17/17 at 17:29; Status DC Albuterol/ Ipratropium (Duoneb) 3 ml 1X ONCE NEB Last administered on 17:00; Start 09/17/17 at 16:45; Stop 09/17/17 at 16:46; Status DC Potassium Chloride (Klor-Con) 40 meq 1X ONCE PO Last administered on 16:57; Start 09/17/17 at 16:45; Stop 09/17/17 at 16:46; Status DC Azithromycin (Zithromax) 250 mg DAILY PO Last administered on 09/18/17 10:25 ; Start 09/18/17 at 09:00; Stop 09/19/17 at 10:30; Status DC Ceftriaxone Sodium 1 gm/ Dextrose 50 ml @ 100 mls/hr Q24H IV ; Start 09/17/17 at 17:15; Status UNV Albuterol/ Ipratropium (Duoneb) 3 ml Q4HRS NEB Last administered on 09/30/17 08:11; Start 09/17/17 at 20:00; Stop 09/30/17 at 09:21; Status DC Ceftriaxone Sodium (Rocephin) 1 gm Q24H IVP Last administered on 09/18/17 17: 55; Start 09/18/17 at 16:00; Stop 09/19/17 at 10:30; Status DC Guaifenesin (Robitussin Dm) 10 ml PRN Q6HRS PRN PO COUGH; Start 09/17/17 at 17 :15; Stop 09/30/17 at 09:21; Status DC Sodium Chloride 1,000 ml @ 125 mls/hr 1X ONCE IV Last administered on 17:45; Start 09/17/17 at 17:15; Stop 09/17/17 at 22:12; Status DC Info (Do NOT chart on this placeholder) 1 each 1X ONCE MC ; Start 09/17/17 at 19:00; Stop 09/17/17 at 19:01; Status UNV Influenza Virus Vaccine Quadrival (Fluarix Quad 9832-5600 Syringe) 0.5 ml ONCE ONCE VAX IM Last administered on 09/17/17 21:00; Start 09/17/17 at 21:00; Stop 09/17/17 at 21:01; Status DC Sodium Chloride 1,000 ml @ 130 mls/hr 1X ONCE IV Last administered on 22:31; Start 09/17/17 at 22:30; Stop 09/18/17 at 06:11; Status DC Sodium Bicarbonate 50 meq 1X ONCE IV Last administered on 09/17/17 22:31; Start 09/17/17 at 22:30; Stop 09/17/17 at 22:31; Status DC Alprazolam (Xanax) 1 mg PRN TID PRN PO ANXIETY Last administered on 09/19/17 02:19; Start 09/17/17 at 22:30; Stop 09/30/17 at 09:21; Status DC Furosemide (Lasix) 20 mg 1X ONCE IVP Last administered on 09/18/17 06:24; Start 09/18/17 at 06:30; Stop 09/18/17 at 06:31; Status DC Potassium Chloride (Klor-Con) 40 meq 1X ONCE PO Last administered on 10:25; Start 09/18/17 at 09:00; Stop 09/18/17 at 09:01; Status DC Iron Sucrose 500 mg/Sodium Chloride 275 ml @ 78.571 mls/ hr 1X ONCE IV Last administered on 09/18/17 10:24; Start 09/18/17 at 09:00; Stop 09/18/17 at 12 :29; Status DC Furosemide (Lasix) 20 mg 1X ONCE IVP Last administered on 09/18/17 10:30; Start 09/18/17 at 10:00; Stop 09/18/17 at 10:22; Status DC Pantoprazole Sodium (Protonix) 40 mg DAILYAC PO Last administered on 10:47; Start 09/18/17 at 11:00; Stop 09/19/17 at 13:41; Status DC Furosemide (Lasix) 20 mg 1X ONCE IVP Last administered on 09/18/17 10:47; Start 09/18/17 at 10:45; Stop 09/18/17 at 10:46; Status DC Potassium Chloride (Klor-Con) 40 meq 1X ONCE PO ; Start 09/18/17 at 11:45; Stop 09/18/17 at 11:46; Status DC Oxycodone/ Acetaminophen (Percocet 5/325) 1 tab PRN Q6HRS PRN PO PAIN Last administered on 10/04/17 12:51; Start 09/18/17 at 12:15 Lorazepam (Ativan) 1 mg PRN Q4HRS PRN IV ANXIETY / AGITATION Last administered on 09/18/17 12:25; Start 09/18/17 at 12:15; Stop 09/18/17 at 13:34; Status DC Fentanyl Citrate (Fentanyl 2ml Vial) 50 mcg PRN Q2HR PRN IV PAIN Last administered on 09/19/17 04:09; Start 09/18/17 at 12:15; Stop 09/30/17 at 09 :21; Status DC Lorazepam (Ativan) 2 mg PRN Q4HRS PRN IV ANXIETY / AGITATION Last administered on 09/29/17 05:17; Start 09/18/17 at 13:30; Stop 09/30/17 at 09:21; Status DC Quetiapine Fumarate (SEROquel) 25 mg HS PO Last administered on 09/18/17 21: 03; Start 09/18/17 at 21:00; Stop 09/19/17 at 10:35; Status DC Haloperidol Lactate (Haldol) 5 mg PRN Q12HRS PRN IVP AGITATION; Start at 13:45 Lorazepam (Ativan) 1 mg PRN Q4HRS PRN IV ANXIETY / AGITATION; Start 09/19/17 at 10:15; Stop 09/19/17 at 10:18; Status DC Lorazepam (Ativan) 4 mg 1X ONCE IV ; Start 09/19/17 at 10:30; Stop 09/19/17 at 10:31; Status DC Vancomycin HCl (Vanco Per Pharmacy) 1 each PRN DAILY PRN MC SEE COMMENTS Last administered on 09/23/17 12:36; Start 09/19/17 at 10:30; Stop 09/24/17 at 08 :36; Status DC Piperacillin Sod/ Tazobactam Sod (Zosyn Per Pharmacy) 1 each PRN DAILY PRN MC SEE COMMENTS; Start 09/19/17 at 10:30; Stop 09/24/17 at 08:41; Status DC Vancomycin HCl 2 gm/Dextrose 500 ml @ 250 mls/hr 1X ONCE IV Last administered on 09/19/17 14:53; Start 09/19/17 at 11:00; Stop 09/19/17 at 12 :59; Status DC Piperacillin Sod/ Tazobactam Sod (Zosyn) 3.375 gm Q6HRS IVP Last administered on 10/02/17 17:13; Start 09/19/17 at 11:00; Stop 10/02/17 at 19:14; Status DC Budesonide (Pulmicort) 0.5 mg RTBID NEB Last administered on 10/04/17 07:09; Start 09/19/17 at 20:00 Budesonide (Pulmicort) 0.5 mg 1X ONCE NEB Last administered on 09/19/17 12: 50; Start 09/19/17 at 10:45; Stop 09/19/17 at 10:46; Status DC Pantoprazole Sodium (PROTONIX VIAL for IV PUSH) 40 mg DAILYAC IVP Last administered on 10/03/17 08:23; Start 09/19/17 at 11:30; Stop 10/04/17 at 08 :51; Status DC Furosemide (Lasix) 40 mg DAILY IVP ; Start 09/19/17 at 11:00; Stop 09/20/17 at 13:20; Status DC Methylprednisolone Sodium Succinate (SOLU-Medrol 125MG VIAL) 125 mg 1X ONCE IV Last administered on 09/19/17 13:23; Start 09/19/17 at 10:45; Stop at 10:46; Status DC Prednisone (Prednisone) 40 mg DAILY PO ; Start 09/19/17 at 11:00; Stop at 09:02; Status DC Methylprednisolone Sodium Succinate (SOLU-Medrol 125MG VIAL) 125 mg Q8HRS IV Last administered on 09/23/17 05:43; Start 09/19/17 at 14:00; Stop 09/23/17 at 10:40; Status DC Midazolam HCl 100 ml @ 0 mls/hr CONT PRN IV SEE I/O RECORD; Start 09/19/17 at 11:00; Stop 09/19/17 at 12:51; Status DC Midazolam HCl (Versed) 5 mg 1X ONCE IV ; Start 09/19/17 at 11:00; Stop at 11:01; Status DC Fentanyl Citrate (Fentanyl 2ml Vial) 50 mcg 1X ONCE IV ; Start 09/19/17 at 11: 00; Stop 09/19/17 at 11:01; Status DC Midazolam HCl 100 ml @ As Directed STK-MED ONCE IV ; Start 09/19/17 at 10:55; Stop 09/19/17 at 10:56; Status DC Midazolam HCl (Versed) 5 mg STK-MED ONCE .ROUTE ; Start 09/19/17 at 10:55; Stop 09/19/17 at 10:56; Status DC Propofol 100 ml @ As Directed STK-MED ONCE IV ; Start 09/19/17 at 10:59; Stop 09/19/17 at 11:00; Status DC Norepinephrine Bitartrate 250 ml @ As Directed STK-MED ONCE IV ; Start at 10:59; Stop 09/19/17 at 11:00; Status DC Furosemide (Lasix) 20 mg 1X ONCE IVP ; Start 09/19/17 at 11:15; Stop at 11:16; Status DC Vecuronium [place]brook (Norcuron Bolus) 10 mg STK-MED ONCE IV ; Start 09/19/17 at 11:21; Stop 09/19/17 at 11:22; Status DC Fentanyl Citrate 30 ml @ 0 mls/hr CONT PRN IV PROTOCOL Last administered on t 15:08; Start 09/19/17 at 11:30; Stop 09/23/17 at 15:24; Status DC Vecuronium [place] (Norcuron Bolus) 6 mg 1X ONCE IV Last administered on 09/19t 11:42; Start 09/19/17 at 11:30; Stop 09/19/17 at 11:39; Status DC Propofol 10 ml @ 0 mls/hr 1X ONCE IV Last administered on 09/19/17t 11:30; Start 09/19/17 at 11:30; Stop 09/19/17 at 11:39; Status DC Midazolam HCl 100 ml @ 0 mls/hr CONT PRN IV SEE I/O RECORD Last administered on 09/27/17 00:40; Start 09/19/17 at 11:30; Stop 09/30/17 at 09:21; Status DC Norepinephrine Bitartrate 250 ml @ 0 mls/hr CONT PRN IV SEE I/O RECORD Last administered on 09/24/17 05:18; Start 09/19/17 at 11:30; Stop 09/30/17 at 09 :21; Status DC Succinylcholine Chloride (Anectine) 100 mg 1X ONCE IV Last administered on 11:42; Start 09/19/17 at 11:30; Stop 09/19/17 at 11:39; Status DC Sodium Bicarbonate 50 meq 1X ONCE IV Last administered on 09/19/17 13:23; Start 09/19/17 at 12:45; Stop 09/19/17 at 12:46; Status DC Sodium Bicarbonate 50 meq 1X ONCE IV Last administered on 09/19/17 13:23; Start 09/19/17 at 12:45; Stop 09/19/17 at 12:46; Status DC Lidocaine/Sodium Bicarbonate (Buffered Lidocaine 1%) 20 ml STK-MED ONCE IJ ; Start 09/19/17 at 13:34; Stop 09/19/17 at 13:35; Status DC Vecuronium [place]brook (Norcuron Bolus) 10 mg 1X ONCE IV Last administered on 15:05; Start 09/19/17 at 14:00; Stop 09/19/17 at 14:02; Status DC Lidocaine/Sodium Bicarbonate (Buffered Lidocaine 1%) 3 ml 1X ONCE IJ ; Start 09/19/17 at 14:45; Stop 09/19/17 at 14:46; Status DC Vancomycin HCl 1.25 gm/Dextrose 250 ml @ 166.667 mls/hr Q24H IV Last administered on 09/23/17 17:19; Start 09/20/17 at 15:00; Stop 09/24/17 at 08 :35; Status DC Vancomycin HCl 1 each 1X ONCE MC Last administered on 09/21/17 14:30; Start 09/21/17 at 14:30; Stop 09/21/17 at 14:31; Status DC Azithromycin 500 mg/Sodium Chloride 250 ml @ 250 mls/hr Q24H IV Last administered on 09/23/17 17:19; Start 09/19/17 at 16:30; Stop 09/24/17 at 08 :35; Status DC Norepinephrine Bitartrate (Levophed 8mg/ 250ml Premix Drip) 8 mg STK-MED ONCE IV ; Start 09/19/17 at 11:00; Stop 09/20/17 at 08:44; Status DC Midazolam HCl (Versed) 5 mg STK-MED ONCE .ROUTE ; Start 09/19/17 at 11:00; Stop 09/20/17 at 08:44; Status DC Amino Acids/ Glycerin/ Electrolytes 1,000 ml @ 80 mls/hr [id number] IV Last administered on 09/21/17 01:21; Start 09/20/17 at 10:00; Stop 09/22/17 at 07 :02; Status DC Info 1 each PRN DAILY PRN MC SEE COMMENTS; Start 09/20/17 at 10:00; Stop at 12:14; Status DC Furosemide (Lasix) 20 mg 1X ONCE IVP Last administered on 09/20/17 10:21; Start 09/20/17 at 10:15; Stop 09/20/17 at 10:18; Status DC Info 1 each PRN DAILY PRN MC SEE COMMENTS; Start 09/20/17 at 11:00; Status UNV Vecuronium [place]brook (Norcuron Bolus) 10 mg 1X ONCE IV Last administered on 12:03; Start 09/20/17 at 11:15; Stop 09/20/17 at 11:24; Status DC Atropine Sulfate 0.5 mg STK-MED ONCE .ROUTE ; Start 09/20/17 at 11:47; Stop at 11:48; Status DC Epinephrine HCl (EPINEPHrine SYRINGE) 1 mg STK-MED ONCE .ROUTE ; Start at 11:47; Stop 09/20/17 at 11:48; Status DC Atropine Sulfate 0.5 mg STK-MED ONCE .ROUTE ; Start 09/20/17 at 12:00; Stop at 09:11; Status DC Epinephrine HCl (EPINEPHrine SYRINGE) 1 mg STK-MED ONCE .ROUTE ; Start at 12:00; Stop 09/21/17 at 09:11; Status DC Furosemide (Lasix) 20 mg DAILY IVP ; Start 09/21/17 at 11:15; Stop 09/21/17 at 11:20; Status DC Lorazepam (Ativan) 1 mg PRN Q1HR PRN IV ANXIETY / AGITATION Last administered on 09/28/17 17:04; Start 09/21/17 at 11:15; Stop 09/30/17 at 09:21; Status DC Albumin Human 250 ml @ 62.5 mls/hr 1X ONCE IV Last administered on 11:57; Start 09/21/17 at 11:30; Stop 09/21/17 at 15:29; Status DC Albumin Human 250 ml @ 62.5 mls/hr 1X ONCE IV Last administered on 14:29; Start 09/21/17 at 11:30; Stop 09/21/17 at 15:29; Status DC Micafungin Sodium 100 mg/Dextrose 100 ml @ 100 mls/hr Q24H IV Last administered on 09/23/17 13:17; Start 09/21/17 at 12:00; Stop 09/24/17 at 08 :35; Status DC Vecuronium [place] (Norcuron Bolus) 4 mg PRN Q4HRS PRN IV AGITATION; Start at 15:00; Stop 09/30/17 at 09:21; Status DC Dexmedetomidine HCl 200 mcg/ Sodium Chloride 50 ml @ 0 mls/hr CONT PRN IV PER PROTOCOL Last administered on 09/21/17 15:54; Start 09/21/17 at 15:30; Stop 09/30/17 at 09:21; Status DC Sodium Chloride 500 ml @ 500 mls/hr 1X PRN PRN IV SEE COMMENTS; Start at 15:30 Atropine Sulfate 0.5 mg PRN Q5MIN PRN IV SEE COMMENTS; Start 09/21/17 at 15:30 Propofol 100 ml @ 0 mls/hr CONT PRN IV PER PROTOCOL Last administered on 14:35; Start 09/21/17 at 16:45; Stop 09/30/17 at 09:21; Status DC Furosemide (Lasix) 20 mg 1X ONCE IVP Last administered on 09/22/17 09:41; Start 09/22/17 at 10:15; Stop 09/22/17 at 10:16; Status DC Chlorhexidine Gluconate (Peridex) 15 ml BID MM Last administered on 09/29/17 08:07; Start 09/22/17 at 21:00; Stop 09/29/17 at 20:22; Status DC Furosemide (Lasix) 20 mg 1X ONCE IVP Last administered on 09/22/17 17:55; Start 09/22/17 at 18:00; Stop 09/22/17 at 18:01; Status DC Furosemide (Lasix) 20 mg DAILY IVP Last administered on 09/23/17 13:16; Start 09/23/17 at 11:30; Stop 09/24/17 at 08:40; Status DC Methylprednisolone Sodium Succinate (SOLU-Medrol 125MG VIAL) 80 mg Q8HRS IV Last administered on 09/30/17 05:47; Start 09/23/17 at 14:00; Stop 09/30/17 at 09:26; Status DC Fentanyl Citrate 55 ml @ 0 mls/hr CONT PRN PRN IV PER PROTOCOL Last administered on 09/28/17 19:13; Start 09/23/17 at 12:15; Stop 09/30/17 at 09 :21; Status DC Dextrose 1,000 ml @ 25 mls/hr Q24H IV Last administered on 09/28/17 12:59; Start 09/23/17 at 11:45; Stop 10/04/17 at 13:14; Status DC Enoxaparin Sodium (Lovenox Per Pharmacy Prophylaxis Dosing) 1 each PRN DAILY PRN MC SEE COMMENTS; Start 09/23/17 at 16:30; Stop 09/24/17 at 08:41; Status DC Enoxaparin Sodium (Lovenox 40mg Syringe) 40 mg Q24H SQ Last administered on 17:27; Start 09/23/17 at 17:00 Bisacodyl (Dulcolax Tab) 5 mg PRN DAILY PRN PO CONSTIPATION; Start 09/24/17 at 09:30 Insulin Aspart (NovoLOG) 0-5 UNITS Q6HRS SQ Last administered on 09/29/17 12: 27; Start 09/25/17 at 18:00; Stop 10/01/17 at 02:54; Status DC Dextrose (Dextrose 50%-Water Syringe) 12.5 gm PRN Q15MIN PRN IV SEE COMMENTS; Start 09/25/17 at 12:30; Stop 10/01/17 at 02:54; Status DC Dextrose/Sodium Chloride 1,000 ml @ 75 mls/hr [id number] IV Last administered on 10/02/17 01:23; Start 09/29/17 at 19:00; Stop 10/02/17 at 09:07; Status DC Ondansetron HCl (Zofran) 4 mg PRN Q6HRS PRN IV NAUSEA/VOMITING Last administered on 10/01/17 20:33; Start 09/29/17 at 20:00 Albuterol/ Ipratropium (Duoneb) 3 ml TID NEB Last administered on 10/04/17 12 :29; Start 09/30/17 at 14:00 Methylprednisolone Sodium Succinate (SOLU-Medrol 125MG VIAL) 80 mg Q12HR IV Last administered on 10/01/17 08:56; Start 09/30/17 at 21:00; Stop 10/01/17 at 10:22; Status DC Iron Sucrose 500 mg/Sodium Chloride 275 ml @ 78.571 mls/ hr 1X ONCE IV Last administered on 10/01/17 10:08; Start 10/01/17 at 09:30; Stop 10/01/17 at 12 :59; Status DC Methylprednisolone Sodium Succinate (SOLU-Medrol 40MG VIAL) 40 mg Q12HR IV ; Start 10/01/17 at 21:00; Stop 10/01/17 at 21:00; Status DC Alprazolam (Xanax) 0.25 mg PRN Q8HRS PRN PO ANXIETY / AGITATION; Start at 10:30 Quetiapine Fumarate (SEROquel) 50 mg HS PO Last administered on 10/03/17 20: 11; Start 10/01/17 at 21:00 Methylprednisolone Sodium Succinate (SOLU-Medrol 40MG VIAL) 40 mg QHS IV Last administered on 10/01/17 20:32; Start 10/01/17 at 21:00; Stop 10/02/17 at 10 :36; Status DC Saliva Substitute (Biotene Moisturizing Mouth) 2 spray PRN Q15MIN PRN PO DRY MOUTH; Start 10/02/17 at 09:15 Info 1 each PRN DAILY PRN MC SEE COMMENTS Last administered on 10/04/17 13:28 ; Start 10/02/17 at 09:15 Amino Acids/ Glycerin/ Electrolytes 1,000 ml @ 100 mls/hr Q10H IV Last administered on 10/02/17 09:57; Start 10/02/17 at 10:00; Stop 10/02/17 at 19 :59; Status DC Methylprednisolone Sodium Succinate (SOLU-Medrol 40MG VIAL) 20 mg QHS IV Last administered on 10/02/17 21:38; Start 10/02/17 at 21:00; Stop 10/03/17 at 12 :46; Status DC Sodium Acetate 40 meq/Potassium Chloride 50 meq/ Potassium Phosphate 13.6 mmol/ Magnesium Sulfate 10 meq/ Calcium Gluconate 10 meq/ Multivitamins 10 ml/Chromium / Copper/Manganese/ Seleni/Zn 1 ml/ Total Parenteral Nutrition/Amino Acids/ Dextrose/ Fat Emulsion Intravenous 1,512 ml @ 63 mls/hr TPN CONT IV Last administered on 10/02/17 21:37; Start 10/02/17 at 22:00; Stop 10/03/17 at 21 :59; Status DC Morphine Sulfate 2 mg PRN Q2HR PRN IV SEVERE PAIN Last administered on 09:12; Start 10/03/17 at 06:00 Lorazepam (Ativan) 1 mg PRN Q4HRS PRN IV ANXIETY / AGITATION Last administered on 10/04/17 01:15; Start 10/03/17 at 06:00 Potassium Phosphate 13.6 mmol/Sodium Chloride 104.5333 ml @ 52.267 m... Q2H IV Last administered on 10/03/17 17:28; Start 10/03/17 at 12:00; Stop at 15:59; Status DC Potassium Acetate 70 meq/Potassium Phosphate 13.6 mmol/Magnesium Sulfate 10 meq / Calcium Gluconate 10 meq/ Multivitamins 10 ml/Chromium/ Copper/Manganese/ Seleni/Zn 1 ml/ Total Parenteral Nutrition/Amino Acids/Dextrose/ Fat Emulsion Intravenous 1,992 ml @ 83 mls/hr TPN CONT IV Last administered on 10/03/17 22:00; Start 10/03/17 at 22:00; Stop 10/04/17 at 21:59 Vitamin A/Vitamin D (Vitamin A & D Ointment) 1 joe PRN BID PRN TP SKIN PROTECTION Last administered on 10/04/17 01:28; Start 10/03/17 at 14:00 Pantoprazole Sodium (Protonix) 40 mg DAILYAC PO ; Start 10/05/17 at 07:30 Simethicone (Gas-X) 80 mg PRN AFTMEALHC PRN PO GAS / BLOATING Last administered on 10/04/17 10:17; Start 10/04/17 at 09:00 Polyethylene Glycol (miraLAX PACKET) 17 gm PRN DAILY PRN PO CONSTIPATION; Start 10/04/17 at 09:00 Potassium Acetate 70 meq/Potassium Phosphate 13.6 mmol/Magnesium Sulfate 10 meq / Calcium Gluconate 10 meq/ Multivitamins 10 ml/Chromium/ Copper/Manganese/ Seleni/Zn 1 ml/ Total Parenteral Nutrition/Amino Acids/Dextrose/ Fat Emulsion Intravenous 1,992 ml @ 83 mls/hr TPN CONT IV ; Start 10/04/17 at 22:00; Stop 10/05/17 at 21:59 Iohexol (Omnipaque 300 Mg/ml) 75 ml 1X ONCE IV ; Start 10/04/17 at 15:30; Stop 10/04/17 at 15:31; Status DC Info (Do NOT chart on this entry -- for MONITORING) 1 each PRN DAILY PRN MC SEE COMMENTS; Start 10/04/17 at 15:45; Stop 10/06/17 at 15:44 Active Scripts Active Reported Gabapentin 300 Mg Capsule 300 Mg PO TID Cymbalta (Duloxetine Hcl) 60 Mg Capsule. 1 Cap PO BID Hydrochlorothiazide Tablet (Hydrochlorothiazide) 25 Mg Tablet 1 Tab PO DAILY Xanax (Alprazolam) 1 Mg Tablet 1 Tab PO TID PRN Vitals/I & O Vital Sign - Last 24 Hours 10/03/17 10/03/17 10/03/17 10/03/17 19:07 19:08 19:57 20:00 Temp 97.7 97.7 Pulse 83 Resp 16 B/P (MAP) 127/75 (92) Pulse Ox 99 99 96 O2 Delivery Room Air Room Air Room Air Room Air 10/03/17 10/03/17 10/04/17 10/04/17 20:12 23:30 02:15 03:46 Temp 97.9 97.9 Pulse 100 Resp 22 B/P (MAP) 142/94 (110) Pulse Ox 96 97 97 O2 Delivery Room Air Room Air Room Air Room Air 10/04/17 10/04/17 10/04/17 10/04/17 04:47 05:17 07:11 07:59 Temp 98.5 98.5 Pulse 93 Resp 22 20 B/P (MAP) 163/104 (123) Pulse Ox 99 99 99 98 O2 Delivery Room Air Room Air Room Air 10/04/17 10/04/17 10/04/17 10/04/17 09:12 10:17 10:55 12:32 Temp 98.4 98.4 Pulse 81 Resp 17 B/P (MAP) 136/74 (94) Pulse Ox 99 97 O2 Delivery Room Air Room Air Room Air Room Air 10/04/17 10/04/17 12:51 14:48 Temp 97.8 97.8 Pulse 93 Resp 17 B/P (MAP) 118/66 (83) Pulse Ox 99 O2 Delivery Room Air Room Air Intake and Output 10/03/17 10/03/17 10/04/17 15:00 23:00 07:00 Intake Total 50 ml 340 ml Output Total 850 ml 700 ml Balance -800 ml -[address]: There is mild cerebral atrophy. There are moderate patchy deep white matter lucencies bilaterally most commonly due to chronic ischemic change. The ventricles are within normal limits in size. There is no shift of the midline structures. There is no evidence of acute intracranial hemorrhage or mass effect. IMPRESSION: 1. Moderate bilateral deep white matter lucencies compatible with chronic ischemic change. 2. No acute intracranial abnormality is detected. 3. MR scanning would be a more sensitive method of further evaluation, if clinically indicated. MOHAN DAVIS MD Oct 04, 2017 15:52
[2017-10-04] MEDS: ENOXAPARIN 40 MG/0.4 ML SYRINGE. SQ SCH (17:00)
--- NOTE | 2017-10-04 17:01 | RAD ---
CT abdomen and pelvis with contrast Indication: Abdominal pain Technique: CT abdomen and pelvis with 75 mL of Omnipaque 300 with multiplanar reformats. Comparison: None Findings: Heart is normal in size. No pericardial effusion. Small bilateral pleural effusions, right more than left. Patchy opacities are seen in the lung bases. Liver is normal in morphology without focal hepatic lesion. Spleen is not enlarged and show no focal lesion. No radiopaque gallstones. No pericholecystic fluid or gallbladder wall thickening. Pancreas demonstrate no focal lesion. No peripancreatic inflammatory changes. Adrenal glands show no nodularity. No nephrolithiasis or hydronephrosis. No bowel obstruction. No abnormal bowel wall thickening or enhancement. Trace free pelvic fluid. Uterus is anteverted. No solid adnexal lesions. Bladder is decompressed with [place] catheter. No significant bladder wall thickening. No inguinal adenopathy. Diffuse mild body wall edema especially in the pelvic region. No retroperitoneal or pelvic. No suspicious bony lesions. Bilateral pars defect noted at L5 with grade 1 anterolisthesis of L5 over S1 with advanced degenerative changes at L5-S1. Impression: 1. No acute findings in the abdomen or pelvis. 2. Inflammation/edema noted in the pelvic wall and upper thigh soft tissue. This may be secondary to cellulitis or fluid overload state. 3. Small bilateral pleural effusions, right more than left. PQRS Compliance Statement: One or more of the following individualized dose reduction techniques were utilized for this examination: 1. Automated exposure control 2. Adjustment of the mA and/or kV according to patient size 3. Use of iterative reconstruction technique
--- NOTE | 2017-10-04 17:55 | PDOC ---
PROGRESS NOTES Subjective Subjective HPI - f/u of Iron deficiency anemia. ROS - no CP Objective Objective Vital Signs Date Time Temp Pulse Resp B/P (MAP) Pulse Ox O2 Delivery O2 Flow Rate FiO2 10/04/17 14:48 97.8 93 17 118/66 (83) 99 Room Air 97.8 10/03/17 10:46 2.0 Intake and Output 10/04/17 07:00 Intake Total 390 ml Output Total 1550 ml Balance -1160 ml Intake Oral 390 ml Output Urine Total 1550 ml Physical Exam Heart: Normal S1, Normal S2 General: Alert, No acute distress Lungs: Clear to auscultation Assessment Assessment Problems Medical Problems: (1) Dyspnea Status: Acute (2) Hypoalbuminemia Status: Acute (3) Metabolic acidosis Status: Acute (4) Pneumonia Status: Acute IMPRESSION AND PLAN: 1. Iron deficiency anemia. There is no evidence of blood loss. She received Venofer 500 mg intravenous on 09/18/2017. I will continue to monitor hemoglobin and transfuse as needed. Hemoglobin improved to 7.7 after transfusion. Then worse at 6.6 on 09/19/17. s/p 1 unit 09/19/17. Hb worse at 7.5 on 10/01/17 and 7.6 on 10/02/17, s/p PRBC. Hb better at 9.1 , now 8.2 She had black stools, GI following. s/p second dose of venofer 500 mg IV 10/01/17. Bleeding scan 10/02/17 is normal. 2. Leukocytosis, reactive from underlying pneumonia. Management per Pulmonary Medicine. WBC 17.3 3. Pneumonia/dyspnea - Improved. Comment Review of Relevant I have reviewed the following items tha (where applicable) has been applied. Labs Laboratory Tests Test 10/03/17 08:45 10/04/17 05:15 White Blood Count 16.9 x10^3/uL (4.0-11.0) 17.3 x10^3/uL (4.0-11.0) Red Blood Count 3.18 x10^6/uL (3.50-5.40) 2.96 x10^6/uL (3.50-5.40) Hemoglobin 8.8 g/dL (12.0-15.5) 8.2 g/dL (12.0-15.5) Hematocrit 27.9 % (36.0-47.0) 26.7 % (36.0-47.0) Mean Corpuscular Volume 88 fL (79-100) 90 fL (79-100) Mean Corpuscular Hemoglobin 28 pg (25-35) 28 pg (25-35) Mean Corpuscular Hemoglobin Concent 32 g/dL (31-37) 31 g/dL (31-37) Red Cell Distribution Width 23.2 % (11.5-14.5) 23.5 % (11.5-14.5) Platelet Count 310 x10^3/uL (140-400) 304 x10^3/uL (140-400) Sodium Level 148 mmol/L (136-145) 146 mmol/L (136-145) Potassium Level 3.2 mmol/L (3.5-5.1) 4.0 mmol/L (3.5-5.1) Chloride Level 118 mmol/L (98-107) 119 mmol/L (98-107) Carbon Dioxide Level 21 mmol/L (21-32) 19 mmol/L (21-32) Anion Gap 9 (6-14) 8 (6-14) Blood Urea Nitrogen 35 mg/dL (7-20) 35 mg/dL (7-20) Creatinine 0.7 mg/dL (0.6-1.0) 0.6 mg/dL (0.6-1.0) Estimated GFR (Cockcroft-Gault) 85.4 102.0 Glucose Level 157 mg/dL (70-99) 111 mg/dL (70-99) Calcium Level 8.1 mg/dL (8.5-10.1) 7.8 mg/dL (8.5-10.1) Phosphorus Level 2.7 mg/dL (2.6-4.7) 2.8 mg/dL (2.6-4.7) Magnesium Level 2.2 mg/dL (1.8-2.4) 1.9 mg/dL (1.8-2.4) Erythrocyte Sedimentation Rate 20 (0-25) Laboratory Tests Test 10/04/17 05:15 White Blood Count 17.3 x10^3/uL (4.0-11.0) Red Blood Count 2.96 x10^6/uL (3.50-5.40) Hemoglobin 8.2 g/dL (12.0-15.5) Hematocrit 26.7 % (36.0-47.0) Mean Corpuscular Volume 90 fL (79-100) Mean Corpuscular Hemoglobin 28 pg (25-35) Mean Corpuscular Hemoglobin Concent 31 g/dL (31-37) Red Cell Distribution Width 23.5 % (11.5-14.5) Platelet Count 304 x10^3/uL (140-400) Erythrocyte Sedimentation Rate 20 (0-25) Sodium Level 146 mmol/L (136-145) Potassium Level 4.0 mmol/L (3.5-5.1) Chloride Level 119 mmol/L (98-107) Carbon Dioxide Level 19 mmol/L (21-32) Anion Gap 8 (6-14) Blood Urea Nitrogen 35 mg/dL (7-20) Creatinine 0.6 mg/dL (0.6-1.0) Estimated GFR (Cockcroft-Gault) 102.0 Glucose Level 111 mg/dL (70-99) Calcium Level 7.8 mg/dL (8.5-10.1) Phosphorus Level 2.8 mg/dL (2.6-4.7) Magnesium Level 1.9 mg/dL (1.8-2.4) Microbiology 09/17/17 Blood Culture - Final, Complete NO GROWTH AFTER 5 DAYS 09/20/17 AFB Specimen Processing Tissue - Final, Resulted 09/20/17 Acid Fast Bacilli Culture, Resulted Pending 09/20/17 Gram Stain - Final, Resulted 09/20/17 Fungal Culture - Preliminary, Resulted 09/20/17 Fungal Culture Result 1 - Preliminary, Resulted Medications Current Medications Sodium Chloride 1,000 ml @ 125 mls/hr 1X ONCE IV Last administered on 15:54; Start 09/17/17 at 15:15; Stop 09/17/17 at 23:14; Status DC Ondansetron HCl (Zofran) 4 mg PRN Q8HRS PRN IV NAUSEA/VOMITING; Start at 16:30; Stop 09/18/17 at 16:29; Status DC Ceftriaxone Sodium 50 ml @ 0 mls/hr 1X ONCE IV Last administered on 17:33; Start 09/17/17 at 16:45; Stop 09/17/17 at 16:46; Status DC Azithromycin 250 ml @ 250 mls/hr 1X ONCE IV Last administered on 09/17/17 22:38; Start 09/17/17 at 16:30; Stop 09/17/17 at 17:29; Status DC Albuterol/ Ipratropium (Duoneb) 3 ml 1X ONCE NEB Last administered on 17:00; Start 09/17/17 at 16:45; Stop 09/17/17 at 16:46; Status DC Potassium Chloride (Klor-Con) 40 meq 1X ONCE PO Last administered on 16:57; Start 09/17/17 at 16:45; Stop 09/17/17 at 16:46; Status DC Azithromycin (Zithromax) 250 mg DAILY PO Last administered on 09/18/17 10:25 ; Start 09/18/17 at 09:00; Stop 09/19/17 at 10:30; Status DC Ceftriaxone Sodium 1 gm/ Dextrose 50 ml @ 100 mls/hr Q24H IV ; Start 09/17/17 at 17:15; Status UNV Albuterol/ Ipratropium (Duoneb) 3 ml Q4HRS NEB Last administered on 09/30/17 08:11; Start 09/17/17 at 20:00; Stop 09/30/17 at 09:21; Status DC Ceftriaxone Sodium (Rocephin) 1 gm Q24H IVP Last administered on 09/18/17 17: 55; Start 09/18/17 at 16:00; Stop 09/19/17 at 10:30; Status DC Guaifenesin (Robitussin Dm) 10 ml PRN Q6HRS PRN PO COUGH; Start 09/17/17 at 17 :15; Stop 09/30/17 at 09:21; Status DC Sodium Chloride 1,000 ml @ 125 mls/hr 1X ONCE IV Last administered on 17:45; Start 09/17/17 at 17:15; Stop 09/17/17 at 22:12; Status DC Info (Do NOT chart on this placeholder) 1 each 1X ONCE MC ; Start 09/17/17 at 19:00; Stop 09/17/17 at 19:01; Status UNV Influenza Virus Vaccine Quadrival (Fluarix Quad [id number] Syringe) 0.5 ml ONCE ONCE VAX IM Last administered on 09/17/17 21:00; Start 09/17/17 at 21:00; Stop 09/17/17 at 21:01; Status DC Sodium Chloride 1,000 ml @ 130 mls/hr 1X ONCE IV Last administered on 22:31; Start 09/17/17 at 22:30; Stop 09/18/17 at 06:11; Status DC Sodium Bicarbonate 50 meq 1X ONCE IV Last administered on 09/17/17 22:31; Start 09/17/17 at 22:30; Stop 09/17/17 at 22:31; Status DC Alprazolam (Xanax) 1 mg PRN TID PRN PO ANXIETY Last administered on 09/19/17 02:19; Start 09/17/17 at 22:30; Stop 09/30/17 at 09:21; Status DC Furosemide (Lasix) 20 mg 1X ONCE IVP Last administered on 09/18/17 06:24; Start 09/18/17 at 06:30; Stop 09/18/17 at 06:31; Status DC Potassium Chloride (Klor-Con) 40 meq 1X ONCE PO Last administered on 10:25; Start 09/18/17 at 09:00; Stop 09/18/17 at 09:01; Status DC Iron Sucrose 500 mg/Sodium Chloride 275 ml @ 78.571 mls/ hr 1X ONCE IV Last administered on 09/18/17 10:24; Start 09/18/17 at 09:00; Stop 09/18/17 at 12 :29; Status DC Furosemide (Lasix) 20 mg 1X ONCE IVP Last administered on 09/18/17 10:30; Start 09/18/17 at 10:00; Stop 09/18/17 at 10:22; Status DC Pantoprazole Sodium (Protonix) 40 mg DAILYAC PO Last administered on 10:47; Start 09/18/17 at 11:00; Stop 09/19/17 at 13:41; Status DC Furosemide (Lasix) 20 mg 1X ONCE IVP Last administered on 09/18/17 10:47; Start 09/18/17 at 10:45; Stop 09/18/17 at 10:46; Status DC Potassium Chloride (Klor-Con) 40 meq 1X ONCE PO ; Start 09/18/17 at 11:45; Stop 09/18/17 at 11:46; Status DC Oxycodone/ Acetaminophen (Percocet 5/325) 1 tab PRN Q6HRS PRN PO PAIN Last administered on 10/04/17 12:51; Start 09/18/17 at 12:15 Lorazepam (Ativan) 1 mg PRN Q4HRS PRN IV ANXIETY / AGITATION Last administered on 09/18/17 12:25; Start 09/18/17 at 12:15; Stop 09/18/17 at 13:34; Status DC Fentanyl Citrate (Fentanyl 2ml Vial) 50 mcg PRN Q2HR PRN IV PAIN Last administered on 09/19/17 04:09; Start 09/18/17 at 12:15; Stop 09/30/17 at 09 :21; Status DC Lorazepam (Ativan) 2 mg PRN Q4HRS PRN IV ANXIETY / AGITATION Last administered on 09/29/17 05:17; Start 09/18/17 at 13:30; Stop 09/30/17 at 09:21; Status DC Quetiapine Fumarate (SEROquel) 25 mg HS PO Last administered on 09/18/17 21: 03; Start 09/18/17 at 21:00; Stop 09/19/17 at 10:35; Status DC Haloperidol Lactate (Haldol) 5 mg PRN Q12HRS PRN IVP AGITATION; Start at 13:45 Lorazepam (Ativan) 1 mg PRN Q4HRS PRN IV ANXIETY / AGITATION; Start 09/19/17 at 10:15; Stop 09/19/17 at 10:18; Status DC Lorazepam (Ativan) 4 mg 1X ONCE IV ; Start 09/19/17 at 10:30; Stop 09/19/17 at 10:31; Status DC Vancomycin HCl (Vanco Per Pharmacy) 1 each PRN DAILY PRN MC SEE COMMENTS Last administered on 09/23/17 12:36; Start 09/19/17 at 10:30; Stop 09/24/17 at 08 :36; Status DC Piperacillin Sod/ Tazobactam Sod (Zosyn Per Pharmacy) 1 each PRN DAILY PRN MC SEE COMMENTS; Start 09/19/17 at 10:30; Stop 09/24/17 at 08:41; Status DC Vancomycin HCl 2 gm/Dextrose 500 ml @ 250 mls/hr 1X ONCE IV Last administered on 09/19/17 14:53; Start 09/19/17 at 11:00; Stop 09/19/17 at 12 :59; Status DC Piperacillin Sod/ Tazobactam Sod (Zosyn) 3.375 gm Q6HRS IVP Last administered on 10/02/17 17:13; Start 09/19/17 at 11:00; Stop 10/02/17 at 19:14; Status DC Budesonide (Pulmicort) 0.5 mg RTBID NEB Last administered on 10/04/17 07:09; Start 09/19/17 at 20:00 Budesonide (Pulmicort) 0.5 mg 1X ONCE NEB Last administered on 09/19/17 12: 50; Start 09/19/17 at 10:45; Stop 09/19/17 at 10:46; Status DC Pantoprazole Sodium (PROTONIX VIAL for IV PUSH) 40 mg DAILYAC IVP Last administered on 10/03/17 08:23; Start 09/19/17 at 11:30; Stop 10/04/17 at 08 :51; Status DC Furosemide (Lasix) 40 mg DAILY IVP ; Start 09/19/17 at 11:00; Stop 09/20/17 at 13:20; Status DC Methylprednisolone Sodium Succinate (SOLU-Medrol 125MG VIAL) 125 mg 1X ONCE IV Last administered on 09/19/17 13:23; Start 09/19/17 at 10:45; Stop at 10:46; Status DC Prednisone (Prednisone) 40 mg DAILY PO ; Start 09/19/17 at 11:00; Stop at 09:02; Status DC Methylprednisolone Sodium Succinate (SOLU-Medrol 125MG VIAL) 125 mg Q8HRS IV Last administered on 09/23/17 05:43; Start 09/19/17 at 14:00; Stop 09/23/17 at 10:40; Status DC Midazolam HCl 100 ml @ 0 mls/hr CONT PRN IV SEE I/O RECORD; Start 09/19/17 at 11:00; Stop 09/19/17 at 12:51; Status DC Midazolam HCl (Versed) 5 mg 1X ONCE IV ; Start 09/19/17 at 11:00; Stop at 11:01; Status DC Fentanyl Citrate (Fentanyl 2ml Vial) 50 mcg 1X ONCE IV ; Start 09/19/17 at 11: 00; Stop 09/19/17 at 11:01; Status DC Midazolam HCl 100 ml @ As Directed STK-MED ONCE IV ; Start 09/19/17 at 10:55; Stop 09/19/17 at 10:56; Status DC Midazolam HCl (Versed) 5 mg STK-MED ONCE .ROUTE ; Start 09/19/17 at 10:55; Stop 09/19/17 at 10:56; Status DC Propofol 100 ml @ As Directed STK-MED ONCE IV ; Start 09/19/17 at 10:59; Stop 09/19/17 at 11:00; Status DC Norepinephrine Bitartrate 250 ml @ As Directed STK-MED ONCE IV ; Start at 10:59; Stop 09/19/17 at 11:00; Status DC Furosemide (Lasix) 20 mg 1X ONCE IVP ; Start 09/19/17 at 11:15; Stop at 11:16; Status DC Vecuronium Independence (Norcuron Bolus) 10 mg STK-MED ONCE IV ; Start 09/19/17 at 11:21; Stop 09/19/17 at 11:22; Status DC Fentanyl Citrate 30 ml @ 0 mls/hr CONT PRN IV PROTOCOL Last administered on 15:08; Start 09/19/17 at 11:30; Stop 09/23/17 at 15:24; Status DC Vecuronium Independence (Norcuron Bolus) 6 mg 1X ONCE IV Last administered on 09/19 11:42; Start 09/19/17 at 11:30; Stop 09/19/17 at 11:39; Status DC Propofol 10 ml @ 0 mls/hr 1X ONCE IV Last administered on 09/19/17 11:30; Start 09/19/17 at 11:30; Stop 09/19/17 at 11:39; Status DC Midazolam HCl 100 ml @ 0 mls/hr CONT PRN IV SEE I/O RECORD Last administered on 09/27/17 00:40; Start 09/19/17 at 11:30; Stop 09/30/17 at 09:21; Status DC Norepinephrine Bitartrate 250 ml @ 0 mls/hr CONT PRN IV SEE I/O RECORD Last administered on 09/24/17 05:18; Start 09/19/17 at 11:30; Stop 09/30/17 at 09 :21; Status DC Succinylcholine Chloride (Anectine) 100 mg 1X ONCE IV Last administered on 11:42; Start 09/19/17 at 11:30; Stop 09/19/17 at 11:39; Status DC Sodium Bicarbonate 50 meq 1X ONCE IV Last administered on 09/19/17 13:23; Start 09/19/17 at 12:45; Stop 09/19/17 at 12:46; Status DC Sodium Bicarbonate 50 meq 1X ONCE IV Last administered on 09/19/17 13:23; Start 09/19/17 at 12:45; Stop 09/19/17 at 12:46; Status DC Lidocaine/Sodium Bicarbonate (Buffered Lidocaine 1%) 20 ml STK-MED ONCE IJ ; Start 09/19/17 at 13:34; Stop 09/19/17 at 13:35; Status DC Vecuronium Independence (Norcuron Bolus) 10 mg 1X ONCE IV Last administered on 15:05; Start 09/19/17 at 14:00; Stop 09/19/17 at 14:02; Status DC Lidocaine/Sodium Bicarbonate (Buffered Lidocaine 1%) 3 ml 1X ONCE IJ ; Start 09/19/17 at 14:45; Stop 09/19/17 at 14:46; Status DC Vancomycin HCl 1.25 gm/Dextrose 250 ml @ 166.667 mls/hr Q24H IV Last administered on 09/23/17 17:19; Start 09/20/17 at 15:00; Stop 09/24/17 at 08 :35; Status DC Vancomycin HCl 1 each 1X ONCE MC Last administered on 09/21/17 14:30; Start 09/21/17 at 14:30; Stop 09/21/17 at 14:31; Status DC Azithromycin 500 mg/Sodium Chloride 250 ml @ 250 mls/hr Q24H IV Last administered on 09/23/17 17:19; Start 09/19/17 at 16:30; Stop 09/24/17 at 08 :35; Status DC Norepinephrine Bitartrate (Levophed 8mg/ 250ml Premix Drip) 8 mg STK-MED ONCE IV ; Start 09/19/17 at 11:00; Stop 09/20/17 at 08:44; Status DC Midazolam HCl (Versed) 5 mg STK-MED ONCE .ROUTE ; Start 09/19/17 at 11:00; Stop 09/20/17 at 08:44; Status DC Amino Acids/ Glycerin/ Electrolytes 1,000 ml @ 80 mls/hr [id number] IV Last administered on 09/21/17 01:21; Start 09/20/17 at 10:00; Stop 09/22/17 at 07 :02; Status DC Info 1 each PRN DAILY PRN MC SEE COMMENTS; Start 09/20/17 at 10:00; Stop at 12:14; Status DC Furosemide (Lasix) 20 mg 1X ONCE IVP Last administered on 09/20/17 10:21; Start 09/20/17 at 10:15; Stop 09/20/17 at 10:18; Status DC Info 1 each PRN DAILY PRN MC SEE COMMENTS; Start 09/20/17 at 11:00; Status UNV Vecuronium Independence (Norcuron Bolus) 10 mg 1X ONCE IV Last administered on 12:03; Start 09/20/17 at 11:15; Stop 09/20/17 at 11:24; Status DC Atropine Sulfate 0.5 mg STK-MED ONCE .ROUTE ; Start 09/20/17 at 11:47; Stop at 11:48; Status DC Epinephrine HCl (EPINEPHrine SYRINGE) 1 mg STK-MED ONCE .ROUTE ; Start at 11:47; Stop 09/20/17 at 11:48; Status DC Atropine Sulfate 0.5 mg STK-MED ONCE .ROUTE ; Start 09/20/17 at 12:00; Stop at 09:11; Status DC Epinephrine HCl (EPINEPHrine SYRINGE) 1 mg STK-MED ONCE .ROUTE ; Start at 12:00; Stop 09/21/17 at 09:11; Status DC Furosemide (Lasix) 20 mg DAILY IVP ; Start 09/21/17 at 11:15; Stop 09/21/17 at 11:20; Status DC Lorazepam (Ativan) 1 mg PRN Q1HR PRN IV ANXIETY / AGITATION Last administered on 09/28/17 17:04; Start 09/21/17 at 11:15; Stop 09/30/17 at 09:21; Status DC Albumin Human 250 ml @ 62.5 mls/hr 1X ONCE IV Last administered on 11:57; Start 09/21/17 at 11:30; Stop 09/21/17 at 15:29; Status DC Albumin Human 250 ml @ 62.5 mls/hr 1X ONCE IV Last administered on 14:29; Start 09/21/17 at 11:30; Stop 09/21/17 at 15:29; Status DC Micafungin Sodium 100 mg/Dextrose 100 ml @ 100 mls/hr Q24H IV Last administered on 09/23/17 13:17; Start 09/21/17 at 12:00; Stop 09/24/17 at 08 :35; Status DC Vecuronium Independence (Norcuron Bolus) 4 mg PRN Q4HRS PRN IV AGITATION; Start at 15:00; Stop 09/30/17 at 09:21; Status DC Dexmedetomidine HCl 200 mcg/ Sodium Chloride 50 ml @ 0 mls/hr CONT PRN IV PER PROTOCOL Last administered on 09/21/17 15:54; Start 09/21/17 at 15:30; Stop 09/30/17 at 09:21; Status DC Sodium Chloride 500 ml @ 500 mls/hr 1X PRN PRN IV SEE COMMENTS; Start at 15:30 Atropine Sulfate 0.5 mg PRN Q5MIN PRN IV SEE COMMENTS; Start 09/21/17 at 15:30 Propofol 100 ml @ 0 mls/hr CONT PRN IV PER PROTOCOL Last administered on 14:35; Start 09/21/17 at 16:45; Stop 09/30/17 at 09:21; Status DC Furosemide (Lasix) 20 mg 1X ONCE IVP Last administered on 09/22/17 09:41; Start 09/22/17 at 10:15; Stop 09/22/17 at 10:16; Status DC Chlorhexidine Gluconate (Peridex) 15 ml BID MM Last administered on 09/29/17 08:07; Start 09/22/17 at 21:00; Stop 09/29/17 at 20:22; Status DC Furosemide (Lasix) 20 mg 1X ONCE IVP Last administered on 09/22/17 17:55; Start 09/22/17 at 18:00; Stop 09/22/17 at 18:01; Status DC Furosemide (Lasix) 20 mg DAILY IVP Last administered on 09/23/17 13:16; Start 09/23/17 at 11:30; Stop 09/24/17 at 08:40; Status DC Methylprednisolone Sodium Succinate (SOLU-Medrol 125MG VIAL) 80 mg Q8HRS IV Last administered on 09/30/17 05:47; Start 09/23/17 at 14:00; Stop 09/30/17 at 09:26; Status DC Fentanyl Citrate 55 ml @ 0 mls/hr CONT PRN PRN IV PER PROTOCOL Last administered on 09/28/17 19:13; Start 09/23/17 at 12:15; Stop 09/30/17 at 09 :21; Status DC Dextrose 1,000 ml @ 25 mls/hr Q24H IV Last administered on 09/28/17 12:59; Start 09/23/17 at 11:45; Stop 10/04/17 at 13:14; Status DC Enoxaparin Sodium (Lovenox Per Pharmacy Prophylaxis Dosing) 1 each PRN DAILY PRN MC SEE COMMENTS; Start 09/23/17 at 16:30; Stop 09/24/17 at 08:41; Status DC Enoxaparin Sodium (Lovenox 40mg Syringe) 40 mg Q24H SQ Last administered on 17:27; Start 09/23/17 at 17:00 Bisacodyl (Dulcolax Tab) 5 mg PRN DAILY PRN PO CONSTIPATION; Start 09/24/17 at 09:30 Insulin Aspart (NovoLOG) 0-5 UNITS Q6HRS SQ Last administered on 09/29/17 12: 27; Start 09/25/17 at 18:00; Stop 10/01/17 at 02:54; Status DC Dextrose (Dextrose 50%-Water Syringe) 12.5 gm PRN Q15MIN PRN IV SEE COMMENTS; Start 09/25/17 at 12:30; Stop 10/01/17 at 02:54; Status DC Dextrose/Sodium Chloride 1,000 ml @ 75 mls/hr [id number] IV Last administered on 10/02/17 01:23; Start 09/29/17 at 19:00; Stop 10/02/17 at 09:07; Status DC Ondansetron HCl (Zofran) 4 mg PRN Q6HRS PRN IV NAUSEA/VOMITING Last administered on 10/01/17 20:33; Start 09/29/17 at 20:00 Albuterol/ Ipratropium (Duoneb) 3 ml TID NEB Last administered on 10/04/17 12 :29; Start 09/30/17 at 14:00 Methylprednisolone Sodium Succinate (SOLU-Medrol 125MG VIAL) 80 mg Q12HR IV Last administered on 10/01/17 08:56; Start 09/30/17 at 21:00; Stop 10/01/17 at 10:22; Status DC Iron Sucrose 500 mg/Sodium Chloride 275 ml @ 78.571 mls/ hr 1X ONCE IV Last administered on 10/01/17 10:08; Start 10/01/17 at 09:30; Stop 10/01/17 at 12 :59; Status DC Methylprednisolone Sodium Succinate (SOLU-Medrol 40MG VIAL) 40 mg Q12HR IV ; Start 10/01/17 at 21:00; Stop 10/01/17 at 21:00; Status DC Alprazolam (Xanax) 0.25 mg PRN Q8HRS PRN PO ANXIETY / AGITATION; Start at 10:30 Quetiapine Fumarate (SEROquel) 50 mg HS PO Last administered on 10/03/17 20: 11; Start 10/01/17 at 21:00 Methylprednisolone Sodium Succinate (SOLU-Medrol 40MG VIAL) 40 mg QHS IV Last administered on 10/01/17 20:32; Start 10/01/17 at 21:00; Stop 10/02/17 at 10 :36; Status DC Saliva Substitute (Biotene Moisturizing Mouth) 2 spray PRN Q15MIN PRN PO DRY MOUTH; Start 10/02/17 at 09:15 Info 1 each PRN DAILY PRN MC SEE COMMENTS Last administered on 10/04/17 13:28 ; Start 10/02/17 at 09:15 Amino Acids/ Glycerin/ Electrolytes 1,000 ml @ 100 mls/hr Q10H IV Last administered on 10/02/17 09:57; Start 10/02/17 at 10:00; Stop 10/02/17 at 19 :59; Status DC Methylprednisolone Sodium Succinate (SOLU-Medrol 40MG VIAL) 20 mg QHS IV Last administered on 10/02/17 21:38; Start 10/02/17 at 21:00; Stop 10/03/17 at 12 :46; Status DC Sodium Acetate 40 meq/Potassium Chloride 50 meq/ Potassium Phosphate 13.6 mmol/ Magnesium Sulfate 10 meq/ Calcium Gluconate 10 meq/ Multivitamins 10 ml/Chromium / Copper/Manganese/ Seleni/Zn 1 ml/ Total Parenteral Nutrition/Amino Acids/ Dextrose/ Fat Emulsion Intravenous 1,512 ml @ 63 mls/hr TPN CONT IV Last administered on 10/02/17 21:37; Start 10/02/17 at 22:00; Stop 10/03/17 at 21 :59; Status DC Morphine Sulfate 2 mg PRN Q2HR PRN IV SEVERE PAIN Last administered on 09:12; Start 10/03/17 at 06:00 Lorazepam (Ativan) 1 mg PRN Q4HRS PRN IV ANXIETY / AGITATION Last administered on 10/04/17 01:15; Start 10/03/17 at 06:00 Potassium Phosphate 13.6 mmol/Sodium Chloride 104.5333 ml @ 52.267 m... Q2H IV Last administered on 10/03/17 17:28; Start 10/03/17 at 12:00; Stop at 15:59; Status DC Potassium Acetate 70 meq/Potassium Phosphate 13.6 mmol/Magnesium Sulfate 10 meq / Calcium Gluconate 10 meq/ Multivitamins 10 ml/Chromium/ Copper/Manganese/ Seleni/Zn 1 ml/ Total Parenteral Nutrition/Amino Acids/Dextrose/ Fat Emulsion Intravenous 1,992 ml @ 83 mls/hr TPN CONT IV Last administered on 10/03/17 22:00; Start 10/03/17 at 22:00; Stop 10/04/17 at 21:59 Vitamin A/Vitamin D (Vitamin A & D Ointment) 1 joe PRN BID PRN TP SKIN PROTECTION Last administered on 10/04/17 01:28; Start 10/03/17 at 14:00 Pantoprazole Sodium (Protonix) 40 mg DAILYAC PO ; Start 10/05/17 at 07:30 Simethicone (Gas-X) 80 mg PRN AFTMEALHC PRN PO GAS / BLOATING Last administered on 10/04/17 10:17; Start 10/04/17 at 09:00 Polyethylene Glycol (miraLAX PACKET) 17 gm PRN DAILY PRN PO CONSTIPATION; Start 10/04/17 at 09:00 Potassium Acetate 70 meq/Potassium Phosphate 13.6 mmol/Magnesium Sulfate 10 meq / Calcium Gluconate 10 meq/ Multivitamins 10 ml/Chromium/ Copper/Manganese/ Seleni/Zn 1 ml/ Total Parenteral Nutrition/Amino Acids/Dextrose/ Fat Emulsion Intravenous 1,992 ml @ 83 mls/hr TPN CONT IV ; Start 10/04/17 at 22:00; Stop 10/05/17 at 21:59 Iohexol (Omnipaque 300 Mg/ml) 75 ml 1X ONCE IV Last administered on 16:25; Start 10/04/17 at 15:30; Stop 10/04/17 at 15:31; Status DC Info (Do NOT chart on this entry -- for MONITORING) 1 each PRN DAILY PRN MC SEE COMMENTS; Start 10/04/17 at 15:45; Stop 10/06/17 at 15:44 Active Scripts Active Reported Gabapentin 300 Mg Capsule 300 Mg PO TID Cymbalta (Duloxetine Hcl) 60 Mg Capsule. 1 Cap PO BID Hydrochlorothiazide Tablet (Hydrochlorothiazide) 25 Mg Tablet 1 Tab PO DAILY Xanax (Alprazolam) 1 Mg Tablet 1 Tab PO TID PRN Vitals/I & O Vital Sign - Last 24 Hours 10/03/17 10/03/17 10/03/17 10/03/17 19:07 19:08 19:57 20:00 Temp 97.7 97.7 Pulse 83 Resp 16 B/P (MAP) 127/75 (92) Pulse Ox 99 99 96 O2 Delivery Room Air Room Air Room Air Room Air 10/03/17 10/03/17 10/04/17 10/04/17 20:12 23:30 02:15 03:46 Temp 97.9 97.9 Pulse 100 Resp 22 B/P (MAP) 142/94 (110) Pulse Ox 96 97 97 O2 Delivery Room Air Room Air Room Air Room Air 10/04/17 10/04/17 10/04/17 10/04/17 04:47 05:17 07:11 07:59 Temp 98.5 98.5 Pulse 93 Resp 22 20 B/P (MAP) 163/104 (123) Pulse Ox 99 99 99 98 O2 Delivery Room Air Room Air Room Air 10/04/17 10/04/17 10/04/17 10/04/17 09:12 10:17 10:55 12:32 Temp 98.4 98.4 Pulse 81 Resp 17 B/P (MAP) 136/74 (94) Pulse Ox 99 97 O2 Delivery Room Air Room Air Room Air Room Air 10/04/17 10/04/17 10/04/17 12:51 14:00 14:48 Temp 97.8 97.8 Pulse 93 Resp 17 B/P (MAP) 118/66 (83) Pulse Ox 99 O2 Delivery Room Air Room Air Room Air Intake and Output 10/03/17 10/03/17 10/04/17 15:00 23:00 07:00 Intake Total 50 ml 340 ml Output Total 850 ml 700 ml Balance -800 ml -360 ml ELLA ORTEGA MD Oct 04, 2017 17:55
[2017-10-04 19:00] VITALS: BP 116/59
[2017-10-04] MEDS: QUEtiapine 25 MG TABLET. PO SCH (21:09)
[2017-10-04] MEDS: ALPRAZolam 0.25 MG TABLET PO PRN (21:09)
[2017-10-04] MEDS ORDERED: AMINO ACIDS IV SCH ×9 (22:00)
[2017-10-04] MEDS ORDERED: [UNRECOGNIZED DRUG - OTHER] IV SCH ×9 (22:00)
[2017-10-04] MEDS ORDERED: TOTAL PARENTERAL NUTRITION IV SCH ×9 (22:00)
[2017-10-04] MEDS ORDERED: DEXTROSE 70% IV SCH ×9 (22:00)
[2017-10-04 23:35] VITALS: BP 129/79
[2017-10-05] MEDS: MORPHINE SULFATE 2 MG/ML DISP.SYRIN. IV PRN (01:33)
[2017-10-05 03:28] VITALS: BP 139/70
[2017-10-05 06:04] LABS: BASO # 0.1 x10^3/uL (0.0-0.2); BASO % 0 % (0-3); EOS % 7 % (0-3); HEMATOCRIT 23.3 % (36.0-47.0); HEMOGLOBIN 7.4 g/dL (12.0-15.5); LYMPH % 7 % (24-48); MEAN CORPUSCULAR HEMOGLOBIN 29 pg (25-35); MEAN CORPUSCULAR HGB CONC 32 g/dL (31-37); MEAN CORPUSCULAR VOLUME 90 fL (79-100); MONO % 6 % (0-9); NEUT % 81 % (31-73); PLATELET COUNT 296 x10^3/uL (140-400); RED BLOOD COUNT 2.59 x10^6/uL (3.50-5.40); RED CELL DISTRIBUTION WIDTH 24.2 % (11.5-14.5); WHITE BLOOD COUNT 15.1 x10^3/uL (4.0-11.0)
[2017-10-05 06:06] LABS: ALBUMIN 1.9 g/dL (3.4-5.0); ALBUMIN/GLOBULIN RATIO 0.8 (1.0-1.7); CALCIUM 8.1 mg/dL (8.5-10.1); CREATININE 0.6 mg/dL (0.6-1.0); POTASSIUM 4.2 mmol/L (3.5-5.1); TOTAL BILIRUBIN 0.4 mg/dL (0.2-1.0); TOTAL PROTEIN 4.4 g/dL (6.4-8.2)
[2017-10-05 06:07] LABS: CHOLESTEROL/HDL RATIO 2.7; PHOSPHORUS 2.6 mg/dL (2.6-4.7)
[2017-10-05 07:00] VITALS: BP 147/105
--- NOTE | 2017-10-05 07:10 | PDOC ---
G I PROGRESS NOTE Reason for Follow-up Anemia/abd pain Subjective Pain unchanged Physical Exam Lungs decreased BS CV S1 S2 ABd hypoactive BS, mildly distended Review of Relevant I have reviewed the following items tha (where applicable) has been applied. Labs Laboratory Tests Test 10/03/17 08:45 10/04/17 05:15 10/05/17 05:00 White Blood Count 16.9 x10^3/uL (4.0-11.0) 17.3 x10^3/uL (4.0-11.0) 15.1 x10^3/uL (4.0-11.0) Red Blood Count 3.18 x10^6/uL (3.50-5.40) 2.96 x10^6/uL (3.50-5.40) 2.59 x10^6/uL (3.50-5.40) Hemoglobin 8.8 g/dL (12.0-15.5) 8.2 g/dL (12.0-15.5) 7.4 g/dL (12.0-15.5) Hematocrit 27.9 % (36.0-47.0) 26.7 % (36.0-47.0) 23.3 % (36.0-47.0) Mean Corpuscular Volume 88 fL (79-100) 90 fL (79-100) 90 fL (79-100) Mean Corpuscular Hemoglobin 28 pg (25-35) 28 pg (25-35) 29 pg (25-35) Mean Corpuscular Hemoglobin Concent 32 g/dL (31-37) 31 g/dL (31-37) 32 g/dL (31-37) Red Cell Distribution Width 23.2 % (11.5-14.5) 23.5 % (11.5-14.5) 24.2 % (11.5-14.5) Platelet Count 310 x10^3/uL (140-400) 304 x10^3/uL (140-400) 296 x10^3/uL (140-400) Sodium Level 148 mmol/L (136-145) 146 mmol/L (136-145) 143 mmol/L (136-145) Potassium Level 3.2 mmol/L (3.5-5.1) 4.0 mmol/L (3.5-5.1) 4.2 mmol/L (3.5-5.1) Chloride Level 118 mmol/L (98-107) 119 mmol/L (98-107) 116 mmol/L (98-107) Carbon Dioxide Level 21 mmol/L (21-32) 19 mmol/L (21-32) 17 mmol/L (21-32) Anion Gap 9 (6-14) 8 (6-14) 10 (6-14) Blood Urea Nitrogen 35 mg/dL (7-20) 35 mg/dL (7-20) 28 mg/dL (7-20) Creatinine 0.7 mg/dL (0.6-1.0) 0.6 mg/dL (0.6-1.0) 0.6 mg/dL (0.6-1.0) Estimated GFR (Cockcroft-Gault) 85.4 102.0 102.0 Glucose Level 157 mg/dL (70-99) 111 mg/dL (70-99) 101 mg/dL (70-99) Calcium Level 8.1 mg/dL (8.5-10.1) 7.8 mg/dL (8.5-10.1) 8.1 mg/dL (8.5-10.1) Phosphorus Level 2.7 mg/dL (2.6-4.7) 2.8 mg/dL (2.6-4.7) 2.6 mg/dL (2.6-4.7) Magnesium Level 2.2 mg/dL (1.8-2.4) 1.9 mg/dL (1.8-2.4) 2.0 mg/dL (1.8-2.4) Erythrocyte Sedimentation Rate 20 (0-25) Neutrophils (%) (Auto) 81 % (31-73) Lymphocytes (%) (Auto) 7 % (24-48) Monocytes (%) (Auto) 6 % (0-9) Eosinophils (%) (Auto) 7 % (0-3) Basophils (%) (Auto) 0 % (0-3) Neutrophils # (Auto) 12.2 x10^3uL (1.8-7.7) Lymphocytes # (Auto) 1.0 x10^3/uL (1.0-4.8) Monocytes # (Auto) 0.8 x10^3/uL (0.0-1.1) Eosinophils # (Auto) 1.0 x10^3/uL (0.0-0.7) Basophils # (Auto) 0.1 x10^3/uL (0.0-0.2) BUN/Creatinine Ratio 47 (6-20) Total Bilirubin 0.4 mg/dL (0.2-1.0) Aspartate Amino Transf (AST/SGOT) 17 U/L (15-37) Alanine Aminotransferase (ALT/SGPT) 31 U/L (14-59) Alkaline Phosphatase 42 U/L (46-116) Total Protein 4.4 g/dL (6.4-8.2) Albumin 1.9 g/dL (3.4-5.0) Albumin/Globulin Ratio 0.8 (1.0-1.7) Triglycerides Level 86 mg/dL (0-150) Cholesterol Level 88 mg/dL (0-200) LDL Cholesterol, Calculated 38 mg/dL (0-100) VLDL Cholesterol, Calculated 17 mg/dL (0-40) Non-HDL Cholesterol Calculated 55 mg/dL (0-129) HDL Cholesterol 33 mg/dL (40-60) Cholesterol/HDL Ratio 2.7 Laboratory Tests Test 10/05/17 05:00 White Blood Count 15.1 x10^3/uL (4.0-11.0) Red Blood Count 2.59 x10^6/uL (3.50-5.40) Hemoglobin 7.4 g/dL (12.0-15.5) Hematocrit 23.3 % (36.0-47.0) Mean Corpuscular Volume 90 fL (79-100) Mean Corpuscular Hemoglobin 29 pg (25-35) Mean Corpuscular Hemoglobin Concent 32 g/dL (31-37) Red Cell Distribution Width 24.2 % (11.5-14.5) Platelet Count 296 x10^3/uL (140-400) Neutrophils (%) (Auto) 81 % (31-73) Lymphocytes (%) (Auto) 7 % (24-48) Monocytes (%) (Auto) 6 % (0-9) Eosinophils (%) (Auto) 7 % (0-3) Basophils (%) (Auto) 0 % (0-3) Neutrophils # (Auto) 12.2 x10^3uL (1.8-7.7) Lymphocytes # (Auto) 1.0 x10^3/uL (1.0-4.8) Monocytes # (Auto) 0.8 x10^3/uL (0.0-1.1) Eosinophils # (Auto) 1.0 x10^3/uL (0.0-0.7) Basophils # (Auto) 0.1 x10^3/uL (0.0-0.2) Sodium Level 143 mmol/L (136-145) Potassium Level 4.2 mmol/L (3.5-5.1) Chloride Level 116 mmol/L (98-107) Carbon Dioxide Level 17 mmol/L (21-32) Anion Gap 10 (6-14) Blood Urea Nitrogen 28 mg/dL (7-20) Creatinine 0.6 mg/dL (0.6-1.0) Estimated GFR (Cockcroft-Gault) 102.0 BUN/Creatinine Ratio 47 (6-20) Glucose Level 101 mg/dL (70-99) Calcium Level 8.1 mg/dL (8.5-10.1) Phosphorus Level 2.6 mg/dL (2.6-4.7) Magnesium Level 2.0 mg/dL (1.8-2.4) Total Bilirubin 0.4 mg/dL (0.2-1.0) Aspartate Amino Transf (AST/SGOT) 17 U/L (15-37) Alanine Aminotransferase (ALT/SGPT) 31 U/L (14-59) Alkaline Phosphatase 42 U/L (46-116) Total Protein 4.4 g/dL (6.4-8.2) Albumin 1.9 g/dL (3.4-5.0) Albumin/Globulin Ratio 0.8 (1.0-1.7) Triglycerides Level 86 mg/dL (0-150) Cholesterol Level 88 mg/dL (0-200) LDL Cholesterol, Calculated 38 mg/dL (0-100) VLDL Cholesterol, Calculated 17 mg/dL (0-40) Non-HDL Cholesterol Calculated 55 mg/dL (0-129) HDL Cholesterol 33 mg/dL (40-60) Cholesterol/HDL Ratio 2.7 Microbiology 09/17/17 Blood Culture - Final, Complete NO GROWTH AFTER 5 DAYS 09/20/17 AFB Specimen Processing Tissue - Final, Resulted 09/20/17 Acid Fast Bacilli Culture, Resulted Pending 09/20/17 Gram Stain - Final, Resulted 09/20/17 Fungal Culture - Preliminary, Resulted 09/20/17 Fungal Culture Result 1 - Preliminary, Resulted Medications Current Medications Sodium Chloride 1,000 ml @ 125 mls/hr 1X ONCE IV Last administered on 15:54; Start 09/17/17 at 15:15; Stop 09/17/17 at 23:14; Status DC Ondansetron HCl (Zofran) 4 mg PRN Q8HRS PRN IV NAUSEA/VOMITING; Start at 16:30; Stop 09/18/17 at 16:29; Status DC Ceftriaxone Sodium 50 ml @ 0 mls/hr 1X ONCE IV Last administered on 17:33; Start 09/17/17 at 16:45; Stop 09/17/17 at 16:46; Status DC Azithromycin 250 ml @ 250 mls/hr 1X ONCE IV Last administered on 09/17/17 22:38; Start 09/17/17 at 16:30; Stop 09/17/17 at 17:29; Status DC Albuterol/ Ipratropium (Duoneb) 3 ml 1X ONCE NEB Last administered on 17:00; Start 09/17/17 at 16:45; Stop 09/17/17 at 16:46; Status DC Potassium Chloride (Klor-Con) 40 meq 1X ONCE PO Last administered on 16:57; Start 09/17/17 at 16:45; Stop 09/17/17 at 16:46; Status DC Azithromycin (Zithromax) 250 mg DAILY PO Last administered on 09/18/17 10:25 ; Start 09/18/17 at 09:00; Stop 09/19/17 at 10:30; Status DC Ceftriaxone Sodium 1 gm/ Dextrose 50 ml @ 100 mls/hr Q24H IV ; Start 09/17/17 at 17:15; Status UNV Albuterol/ Ipratropium (Duoneb) 3 ml Q4HRS NEB Last administered on 09/30/17 08:11; Start 09/17/17 at 20:00; Stop 09/30/17 at 09:21; Status DC Ceftriaxone Sodium (Rocephin) 1 gm Q24H IVP Last administered on 09/18/17 17: 55; Start 09/18/17 at 16:00; Stop 09/19/17 at 10:30; Status DC Guaifenesin (Robitussin Dm) 10 ml PRN Q6HRS PRN PO COUGH; Start 09/17/17 at 17 :15; Stop 09/30/17 at 09:21; Status DC Sodium Chloride 1,000 ml @ 125 mls/hr 1X ONCE IV Last administered on 17:45; Start 09/17/17 at 17:15; Stop 09/17/17 at 22:12; Status DC Info (Do NOT chart on this placeholder) 1 each 1X ONCE MC ; Start 09/17/17 at 19:00; Stop 09/17/17 at 19:01; Status UNV Influenza Virus Vaccine Quadrival (Fluarix Quad [id number] Syringe) 0.5 ml ONCE ONCE VAX IM Last administered on 09/17/17 21:00; Start 09/17/17 at 21:00; Stop 09/17/17 at 21:01; Status DC Sodium Chloride 1,000 ml @ 130 mls/hr 1X ONCE IV Last administered on 22:31; Start 09/17/17 at 22:30; Stop 09/18/17 at 06:11; Status DC Sodium Bicarbonate 50 meq 1X ONCE IV Last administered on 09/17/17 22:31; Start 09/17/17 at 22:30; Stop 09/17/17 at 22:31; Status DC Alprazolam (Xanax) 1 mg PRN TID PRN PO ANXIETY Last administered on 09/19/17 02:19; Start 09/17/17 at 22:30; Stop 09/30/17 at 09:21; Status DC Furosemide (Lasix) 20 mg 1X ONCE IVP Last administered on 09/18/17 06:24; Start 09/18/17 at 06:30; Stop 09/18/17 at 06:31; Status DC Potassium Chloride (Klor-Con) 40 meq 1X ONCE PO Last administered on 10:25; Start 09/18/17 at 09:00; Stop 09/18/17 at 09:01; Status DC Iron Sucrose 500 mg/Sodium Chloride 275 ml @ 78.571 mls/ hr 1X ONCE IV Last administered on 09/18/17 10:24; Start 09/18/17 at 09:00; Stop 09/18/17 at 12 :29; Status DC Furosemide (Lasix) 20 mg 1X ONCE IVP Last administered on 09/18/17 10:30; Start 09/18/17 at 10:00; Stop 09/18/17 at 10:22; Status DC Pantoprazole Sodium (Protonix) 40 mg DAILYAC PO Last administered on 10:47; Start 09/18/17 at 11:00; Stop 09/19/17 at 13:41; Status DC Furosemide (Lasix) 20 mg 1X ONCE IVP Last administered on 09/18/17 10:47; Start 09/18/17 at 10:45; Stop 09/18/17 at 10:46; Status DC Potassium Chloride (Klor-Con) 40 meq 1X ONCE PO ; Start 09/18/17 at 11:45; Stop 09/18/17 at 11:46; Status DC Oxycodone/ Acetaminophen (Percocet 5/325) 1 tab PRN Q6HRS PRN PO PAIN Last administered on 10/04/17 12:51; Start 09/18/17 at 12:15 Lorazepam (Ativan) 1 mg PRN Q4HRS PRN IV ANXIETY / AGITATION Last administered on 09/18/17 12:25; Start 09/18/17 at 12:15; Stop 09/18/17 at 13:34; Status DC Fentanyl Citrate (Fentanyl 2ml Vial) 50 mcg PRN Q2HR PRN IV PAIN Last administered on 09/19/17 04:09; Start 09/18/17 at 12:15; Stop 09/30/17 at 09 :21; Status DC Lorazepam (Ativan) 2 mg PRN Q4HRS PRN IV ANXIETY / AGITATION Last administered on 09/29/17 05:17; Start 09/18/17 at 13:30; Stop 09/30/17 at 09:21; Status DC Quetiapine Fumarate (SEROquel) 25 mg HS PO Last administered on 09/18/17 21: 03; Start 09/18/17 at 21:00; Stop 09/19/17 at 10:35; Status DC Haloperidol Lactate (Haldol) 5 mg PRN Q12HRS PRN IVP AGITATION; Start at 13:45 Lorazepam (Ativan) 1 mg PRN Q4HRS PRN IV ANXIETY / AGITATION; Start 09/19/17 at 10:15; Stop 09/19/17 at 10:18; Status DC Lorazepam (Ativan) 4 mg 1X ONCE IV ; Start 09/19/17 at 10:30; Stop 09/19/17 at 10:31; Status DC Vancomycin HCl (Vanco Per Pharmacy) 1 each PRN DAILY PRN MC SEE COMMENTS Last administered on 09/23/17 12:36; Start 09/19/17 at 10:30; Stop 09/24/17 at 08 :36; Status DC Piperacillin Sod/ Tazobactam Sod (Zosyn Per Pharmacy) 1 each PRN DAILY PRN MC SEE COMMENTS; Start 09/19/17 at 10:30; Stop 09/24/17 at 08:41; Status DC Vancomycin HCl 2 gm/Dextrose 500 ml @ 250 mls/hr 1X ONCE IV Last administered on 09/19/17 14:53; Start 09/19/17 at 11:00; Stop 09/19/17 at 12 :59; Status DC Piperacillin Sod/ Tazobactam Sod (Zosyn) 3.375 gm Q6HRS IVP Last administered on 10/02/17 17:13; Start 09/19/17 at 11:00; Stop 10/02/17 at 19:14; Status DC Budesonide (Pulmicort) 0.5 mg RTBID NEB Last administered on 10/04/17 19:13; Start 09/19/17 at 20:00 Budesonide (Pulmicort) 0.5 mg 1X ONCE NEB Last administered on 09/19/17 12: 50; Start 09/19/17 at 10:45; Stop 09/19/17 at 10:46; Status DC Pantoprazole Sodium (PROTONIX VIAL for IV PUSH) 40 mg DAILYAC IVP Last administered on 10/03/17 08:23; Start 09/19/17 at 11:30; Stop 10/04/17 at 08 :51; Status DC Furosemide (Lasix) 40 mg DAILY IVP ; Start 09/19/17 at 11:00; Stop 09/20/17 at 13:20; Status DC Methylprednisolone Sodium Succinate (SOLU-Medrol 125MG VIAL) 125 mg 1X ONCE IV Last administered on 09/19/17t 13:23; Start 09/19/17 at 10:45; Stop at 10:46; Status DC Prednisone (Prednisone) 40 mg DAILY PO ; Start 09/19/17 at 11:00; Stop at 09:02; Status DC Methylprednisolone Sodium Succinate (SOLU-Medrol 125MG VIAL) 125 mg Q8HRS IV Last administered on 09/23/17t 05:43; Start 09/19/17 at 14:00; Stop 09/23/17 at 10:40; Status DC Midazolam HCl 100 ml @ 0 mls/hr CONT PRN IV SEE I/O RECORD; Start 09/19/17 at 11:00; Stop 09/19/17 at 12:51; Status DC Midazolam HCl (Versed) 5 mg 1X ONCE IV ; Start 09/19/17 at 11:00; Stop at 11:01; Status DC Fentanyl Citrate (Fentanyl 2ml Vial) 50 mcg 1X ONCE IV ; Start 09/19/17 at 11: 00; Stop 09/19/17 at 11:01; Status DC Midazolam HCl 100 ml @ As Directed STK-MED ONCE IV ; Start 09/19/17 at 10:55; Stop 09/19/17 at 10:56; Status DC Midazolam HCl (Versed) 5 mg STK-MED ONCE .ROUTE ; Start 09/19/17 at 10:55; Stop 09/19/17 at 10:56; Status DC Propofol 100 ml @ As Directed STK-MED ONCE IV ; Start 09/19/17 at 10:59; Stop 09/19/17 at 11:00; Status DC Norepinephrine Bitartrate 250 ml @ As Directed STK-MED ONCE IV ; Start at 10:59; Stop 09/19/17 at 11:00; Status DC Furosemide (Lasix) 20 mg 1X ONCE IVP ; Start 09/19/17 at 11:15; Stop at 11:16; Status DC Vecuronium [place] (Norcuron Bolus) 10 mg STK-MED ONCE IV ; Start 09/19/17 at 11:21; Stop 09/19/17 at 11:22; Status DC Fentanyl Citrate 30 ml @ 0 mls/hr CONT PRN IV PROTOCOL Last administered on 15:08; Start 09/19/17 at 11:30; Stop 09/23/17 at 15:24; Status DC Vecuronium [place] (Norcuron Bolus) 6 mg 1X ONCE IV Last administered on 09/19 11:42; Start 09/19/17 at 11:30; Stop 09/19/17 at 11:39; Status DC Propofol 10 ml @ 0 mls/hr 1X ONCE IV Last administered on 09/19/17 11:30; Start 09/19/17 at 11:30; Stop 09/19/17 at 11:39; Status DC Midazolam HCl 100 ml @ 0 mls/hr CONT PRN IV SEE I/O RECORD Last administered on 09/27/17 00:40; Start 09/19/17 at 11:30; Stop 09/30/17 at 09:21; Status DC Norepinephrine Bitartrate 250 ml @ 0 mls/hr CONT PRN IV SEE I/O RECORD Last administered on 09/24/17 05:18; Start 09/19/17 at 11:30; Stop 09/30/17 at 09 :21; Status DC Succinylcholine Chloride (Anectine) 100 mg 1X ONCE IV Last administered on 11:42; Start 09/19/17 at 11:30; Stop 09/19/17 at 11:39; Status DC Sodium Bicarbonate 50 meq 1X ONCE IV Last administered on 09/19/17 13:23; Start 09/19/17 at 12:45; Stop 09/19/17 at 12:46; Status DC Sodium Bicarbonate 50 meq 1X ONCE IV Last administered on 09/19/17 13:23; Start 09/19/17 at 12:45; Stop 09/19/17 at 12:46; Status DC Lidocaine/Sodium Bicarbonate (Buffered Lidocaine 1%) 20 ml STK-MED ONCE IJ ; Start 09/19/17 at 13:34; Stop 09/19/17 at 13:35; Status DC Vecuronium [place] (Norcuron Bolus) 10 mg 1X ONCE IV Last administered on 15:05; Start 09/19/17 at 14:00; Stop 09/19/17 at 14:02; Status DC Lidocaine/Sodium Bicarbonate (Buffered Lidocaine 1%) 3 ml 1X ONCE IJ ; Start 09/19/17 at 14:45; Stop 09/19/17 at 14:46; Status DC Vancomycin HCl 1.25 gm/Dextrose 250 ml @ 166.667 mls/hr Q24H IV Last administered on 09/23/17 17:19; Start 09/20/17 at 15:00; Stop 09/24/17 at 08 :35; Status DC Vancomycin HCl 1 each 1X ONCE MC Last administered on 09/21/17 14:30; Start 09/21/17 at 14:30; Stop 09/21/17 at 14:31; Status DC Azithromycin 500 mg/Sodium Chloride 250 ml @ 250 mls/hr Q24H IV Last administered on 09/23/17 17:19; Start 09/19/17 at 16:30; Stop 09/24/17 at 08 :35; Status DC Norepinephrine Bitartrate (Levophed 8mg/ 250ml Premix Drip) 8 mg STK-MED ONCE IV ; Start 09/19/17 at 11:00; Stop 09/20/17 at 08:44; Status DC Midazolam HCl (Versed) 5 mg STK-MED ONCE .ROUTE ; Start 09/19/17 at 11:00; Stop 09/20/17 at 08:44; Status DC Amino Acids/ Glycerin/ Electrolytes 1,000 ml @ 80 mls/hr [id number] IV Last administered on 09/21/17 01:21; Start 09/20/17 at 10:00; Stop 09/22/17 at 07 :02; Status DC Info 1 each PRN DAILY PRN MC SEE COMMENTS; Start 09/20/17 at 10:00; Stop at 12:14; Status DC Furosemide (Lasix) 20 mg 1X ONCE IVP Last administered on 09/20/17 10:21; Start 09/20/17 at 10:15; Stop 09/20/17 at 10:18; Status DC Info 1 each PRN DAILY PRN MC SEE COMMENTS; Start 09/20/17 at 11:00; Status UNV Vecuronium [place] (Norcuron Bolus) 10 mg 1X ONCE IV Last administered on 12:03; Start 09/20/17 at 11:15; Stop 09/20/17 at 11:24; Status DC Atropine Sulfate 0.5 mg STK-MED ONCE .ROUTE ; Start 09/20/17 at 11:47; Stop at 11:48; Status DC Epinephrine HCl (EPINEPHrine SYRINGE) 1 mg STK-MED ONCE .ROUTE ; Start at 11:47; Stop 09/20/17 at 11:48; Status DC Atropine Sulfate 0.5 mg STK-MED ONCE .ROUTE ; Start 09/20/17 at 12:00; Stop at 09:11; Status DC Epinephrine HCl (EPINEPHrine SYRINGE) 1 mg STK-MED ONCE .ROUTE ; Start at 12:00; Stop 09/21/17 at 09:11; Status DC Furosemide (Lasix) 20 mg DAILY IVP ; Start 09/21/17 at 11:15; Stop 09/21/17 at 11:20; Status DC Lorazepam (Ativan) 1 mg PRN Q1HR PRN IV ANXIETY / AGITATION Last administered on 09/28/17 17:04; Start 09/21/17 at 11:15; Stop 09/30/17 at 09:21; Status DC Albumin Human 250 ml @ 62.5 mls/hr 1X ONCE IV Last administered on 11:57; Start 09/21/17 at 11:30; Stop 09/21/17 at 15:29; Status DC Albumin Human 250 ml @ 62.5 mls/hr 1X ONCE IV Last administered on 14:29; Start 09/21/17 at 11:30; Stop 09/21/17 at 15:29; Status DC Micafungin Sodium 100 mg/Dextrose 100 ml @ 100 mls/hr Q24H IV Last administered on 09/23/17 13:17; Start 09/21/17 at 12:00; Stop 09/24/17 at 08 :35; Status DC Vecuronium [place] (Norcuron Bolus) 4 mg PRN Q4HRS PRN IV AGITATION; Start at 15:00; Stop 09/30/17 at 09:21; Status DC Dexmedetomidine HCl 200 mcg/ Sodium Chloride 50 ml @ 0 mls/hr CONT PRN IV PER PROTOCOL Last administered on 09/21/17 15:54; Start 09/21/17 at 15:30; Stop 09/30/17 at 09:21; Status DC Sodium Chloride 500 ml @ 500 mls/hr 1X PRN PRN IV SEE COMMENTS; Start at 15:30 Atropine Sulfate 0.5 mg PRN Q5MIN PRN IV SEE COMMENTS; Start 09/21/17 at 15:30 Propofol 100 ml @ 0 mls/hr CONT PRN IV PER PROTOCOL Last administered on 14:35; Start 09/21/17 at 16:45; Stop 09/30/17 at 09:21; Status DC Furosemide (Lasix) 20 mg 1X ONCE IVP Last administered on 09/22/17 09:41; Start 09/22/17 at 10:15; Stop 09/22/17 at 10:16; Status DC Chlorhexidine Gluconate (Peridex) 15 ml BID MM Last administered on 09/29/17 08:07; Start 09/22/17 at 21:00; Stop 09/29/17 at 20:22; Status DC Furosemide (Lasix) 20 mg 1X ONCE IVP Last administered on 09/22/17 17:55; Start 09/22/17 at 18:00; Stop 09/22/17 at 18:01; Status DC Furosemide (Lasix) 20 mg DAILY IVP Last administered on 09/23/17 13:16; Start 09/23/17 at 11:30; Stop 09/24/17 at 08:40; Status DC Methylprednisolone Sodium Succinate (SOLU-Medrol 125MG VIAL) 80 mg Q8HRS IV Last administered on 09/30/17 05:47; Start 09/23/17 at 14:00; Stop 09/30/17 at 09:26; Status DC Fentanyl Citrate 55 ml @ 0 mls/hr CONT PRN PRN IV PER PROTOCOL Last administered on 09/28/17 19:13; Start 09/23/17 at 12:15; Stop 09/30/17 at 09 :21; Status DC Dextrose 1,000 ml @ 25 mls/hr Q24H IV Last administered on 09/28/17 12:59; Start 09/23/17 at 11:45; Stop 10/04/17 at 13:14; Status DC Enoxaparin Sodium (Lovenox Per Pharmacy Prophylaxis Dosing) 1 each PRN DAILY PRN MC SEE COMMENTS; Start 09/23/17 at 16:30; Stop 09/24/17 at 08:41; Status DC Enoxaparin Sodium (Lovenox 40mg Syringe) 40 mg Q24H SQ Last administered on 17:27; Start 09/23/17 at 17:00 Bisacodyl (Dulcolax Tab) 5 mg PRN DAILY PRN PO CONSTIPATION; Start 09/24/17 at 09:30 Insulin Aspart (NovoLOG) 0-5 UNITS Q6HRS SQ Last administered on 09/29/17 12: 27; Start 09/25/17 at 18:00; Stop 10/01/17 at 02:54; Status DC Dextrose (Dextrose 50%-Water Syringe) 12.5 gm PRN Q15MIN PRN IV SEE COMMENTS; Start 09/25/17 at 12:30; Stop 10/01/17 at 02:54; Status DC Dextrose/Sodium Chloride 1,000 ml @ 75 mls/hr [id number] IV Last administered on 10/02/17 01:23; Start 09/29/17 at 19:00; Stop 10/02/17 at 09:07; Status DC Ondansetron HCl (Zofran) 4 mg PRN Q6HRS PRN IV NAUSEA/VOMITING Last administered on 10/01/17 20:33; Start 09/29/17 at 20:00 Albuterol/ Ipratropium (Duoneb) 3 ml TID NEB Last administered on 10/04/17 19 :13; Start 09/30/17 at 14:00 Methylprednisolone Sodium Succinate (SOLU-Medrol 125MG VIAL) 80 mg Q12HR IV Last administered on 10/01/17 08:56; Start 09/30/17 at 21:00; Stop 10/01/17 at 10:22; Status DC Iron Sucrose 500 mg/Sodium Chloride 275 ml @ 78.571 mls/ hr 1X ONCE IV Last administered on 10/01/17 10:08; Start 10/01/17 at 09:30; Stop 10/01/17 at 12 :59; Status DC Methylprednisolone Sodium Succinate (SOLU-Medrol 40MG VIAL) 40 mg Q12HR IV ; Start 10/01/17 at 21:00; Stop 10/01/17 at 21:00; Status DC Alprazolam (Xanax) 0.25 mg PRN Q8HRS PRN PO ANXIETY / AGITATION Last administered on 10/04/17 21:09; Start 10/01/17 at 10:30 Quetiapine Fumarate (SEROquel) 50 mg HS PO Last administered on 10/04/17 21: 09; Start 10/01/17 at 21:00 Methylprednisolone Sodium Succinate (SOLU-Medrol 40MG VIAL) 40 mg QHS IV Last administered on 10/01/17 20:32; Start 10/01/17 at 21:00; Stop 10/02/17 at 10 :36; Status DC Saliva Substitute (Biotene Moisturizing Mouth) 2 spray PRN Q15MIN PRN PO DRY MOUTH; Start 10/02/17 at 09:15 Info 1 each PRN DAILY PRN MC SEE COMMENTS Last administered on 10/04/17 13:28 ; Start 10/02/17 at 09:15 Amino Acids/ Glycerin/ Electrolytes 1,000 ml @ 100 mls/hr Q10H IV Last administered on 10/02/17 09:57; Start 10/02/17 at 10:00; Stop 10/02/17 at 19 :59; Status DC Methylprednisolone Sodium Succinate (SOLU-Medrol 40MG VIAL) 20 mg QHS IV Last administered on 10/02/17 21:38; Start 10/02/17 at 21:00; Stop 10/03/17 at 12 :46; Status DC Sodium Acetate 40 meq/Potassium Chloride 50 meq/ Potassium Phosphate 13.6 mmol/ Magnesium Sulfate 10 meq/ Calcium Gluconate 10 meq/ Multivitamins 10 ml/Chromium / Copper/Manganese/ Seleni/Zn 1 ml/ Total Parenteral Nutrition/Amino Acids/ Dextrose/ Fat Emulsion Intravenous 1,512 ml @ 63 mls/hr TPN CONT IV Last administered on 10/02/17 21:37; Start 10/02/17 at 22:00; Stop 10/03/17 at 21 :59; Status DC Morphine Sulfate 2 mg PRN Q2HR PRN IV SEVERE PAIN Last administered on 01:33; Start 10/03/17 at 06:00 Lorazepam (Ativan) 1 mg PRN Q4HRS PRN IV ANXIETY / AGITATION Last administered on 10/04/17 01:15; Start 10/03/17 at 06:00 Potassium Phosphate 13.6 mmol/Sodium Chloride 104.5333 ml @ 52.267 m... Q2H IV Last administered on 10/03/17 17:28; Start 10/03/17 at 12:00; Stop at 15:59; Status DC Potassium Acetate 70 meq/Potassium Phosphate 13.6 mmol/Magnesium Sulfate 10 meq / Calcium Gluconate 10 meq/ Multivitamins 10 ml/Chromium/ Copper/Manganese/ Seleni/Zn 1 ml/ Total Parenteral Nutrition/Amino Acids/Dextrose/ Fat Emulsion Intravenous 1,992 ml @ 83 mls/hr TPN CONT IV Last administered on 10/03/17 22:00; Start 10/03/17 at 22:00; Stop 10/04/17 at 21:59; Status DC Vitamin A/Vitamin D (Vitamin A & D Ointment) 1 joe PRN BID PRN TP SKIN PROTECTION Last administered on 10/04/17 01:28; Start 10/03/17 at 14:00 Pantoprazole Sodium (Protonix) 40 mg DAILYAC PO ; Start 10/05/17 at 07:30 Simethicone (Gas-X) 80 mg PRN AFTMEALHC PRN PO GAS / BLOATING Last administered on 10/04/17 21:09; Start 10/04/17 at 09:00 Polyethylene Glycol (miraLAX PACKET) 17 gm PRN DAILY PRN PO CONSTIPATION; Start 10/04/17 at 09:00 Potassium Acetate 70 meq/Potassium Phosphate 13.6 mmol/Magnesium Sulfate 10 meq / Calcium Gluconate 10 meq/ Multivitamins 10 ml/Chromium/ Copper/Manganese/ Seleni/Zn 1 ml/ Total Parenteral Nutrition/Amino Acids/Dextrose/ Fat Emulsion Intravenous 1,992 ml @ 83 mls/hr TPN CONT IV Last administered on 10/05/17 00:02; Start 10/04/17 at 22:00; Stop 10/05/17 at 21:59 Iohexol (Omnipaque 300 Mg/ml) 75 ml 1X ONCE IV Last administered on 16:25; Start 10/04/17 at 15:30; Stop 10/04/17 at 15:31; Status DC Info (Do NOT chart on this entry -- for MONITORING) 1 each PRN DAILY PRN MC SEE COMMENTS; Start 10/04/17 at 15:45; Stop 10/06/17 at 15:44 Loperamide HCl (Imodium) 2 mg PRN Q1HR PRN PEG DIARRHEA; Start 10/05/17 at 07: 00 Active Scripts Active Reported Gabapentin 300 Mg Capsule 300 Mg PO TID Cymbalta (Duloxetine Hcl) 60 Mg Capsule. 1 Cap PO BID Hydrochlorothiazide Tablet (Hydrochlorothiazide) 25 Mg Tablet 1 Tab PO DAILY Xanax (Alprazolam) 1 Mg Tablet 1 Tab PO TID PRN Vitals/I & O Vital Sign - Last 24 Hours 10/04/17 10/04/17 10/04/17 10/04/17 07:11 07:59 09:12 10:55 Temp 98.5 98.4 98.5 98.4 Pulse 93 81 Resp 17 B/P (MAP) 163/104 (123) 136/74 (94) Pulse Ox 99 98 99 O2 Delivery Room Air Room Air Room Air Room Air 10/04/17 10/04/17 10/04/17 10/04/17 12:32 12:51 14:00 14:48 Temp 97.8 97.8 Pulse 93 Resp 17 B/P (MAP) 118/66 (83) Pulse Ox 97 99 O2 Delivery Room Air Room Air Room Air Room Air 10/04/17 10/04/17 10/04/17 10/04/17 19:00 19:11 20:00 21:10 Temp 98.1 98.1 Pulse 99 Resp 26 B/P (MAP) 116/59 (78) Pulse Ox 99 99 O2 Delivery Room Air Room Air Room Air Room Air 10/04/17 10/04/17 10/05/17 10/05/17 21:40 23:35 01:33 02:03 Temp 98.0 98.0 Pulse 90 Resp 18 20 B/P (MAP) 129/79 (96) Pulse Ox 98 98 98 O2 Delivery Room Air Room Air Room Air 10/05/17 03:28 Temp 98.1 98.1 Pulse 83 Resp 20 B/P (MAP) 139/70 (93) Pulse Ox 98 O2 Delivery Room Air Intake and Output 10/04/17 10/04/17 10/05/17 15:00 23:00 07:00 Intake Total 300 ml 270 ml Output Total 854 ml 1227 ml Balance -554 ml -957 ml Problem List Problems Medical Problems: (1) Dyspnea Status: Acute (2) Hypoalbuminemia Status: Acute (3) Metabolic acidosis Status: Acute (4) Pneumonia Status: Acute Assessment Anemia- chronic , slow drift in Hg without overt bleed, colonoscopies in past have been unrevealing, On PPI therapy, CPM with slowly improving delirium Abd pain- unrevealing CT except for body wall edema, will start diuretic therapy for fluid mobilization, check lactic acid to assess for ischemic bowel despite imaging findings. SUSAN SHARIF MD Oct 05, 2017 07:10
[2017-10-05] MEDS: BUDESONIDE 0.5 MG/2 ML NEBU. NEB SCH ×2 (07:52→19:38)
[2017-10-05] MEDS: IPRATRPIUM/ALBUTEROL 0.5/2.5MG 3 ML NEBU. NEB SCH ×3 (07:52→19:38)
--- NOTE | 2017-10-05 08:40 | PDOC ---
Infectious Disease Note Subjective Subjective pt is alert ,awake says wants to try to walk with a walker has some gas, tolerating po intake no abdominal or pelvic pain no leg pain No fever or diarrhea ROS ROS GEN: Denies fevers, chills, sweats HEENT: Denies blurred vision, sore throat CV: Denies chest pain RESP: Denies shortness of air, cough GI: Denies n/v/d NEURO: Denies confusion, dizziness MSK: +weakness,denies joint pain/swelling Vital Sign Vital Signs Vital Signs Date Time Temp Pulse Resp B/P (MAP) Pulse Ox O2 Delivery O2 Flow Rate FiO2 10/05/17 07:52 99 Room Air 10/05/17 07:00 97.5 103 20 147/105 (119) 97.5 Physical Exam PHYSICAL EXAM GENERAL: NAD, Alert HEENT: PERRL, OC/OP NECK: Supple, no JVD, no LN LUNGS: Clear HEART: S1S2, no gallop, no murmur ABD: Soft, NT, no organomegaly, no rebound no guarding, EXT: + edema, no cyanosis 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: Alert, oriented x 3, no focal neurologic deficit SKIN: No rash IV: ok Labs Lab Laboratory Tests Test 10/05/17 05:00 White Blood Count 15.1 x10^3/uL (4.0-11.0) Red Blood Count 2.59 x10^6/uL (3.50-5.40) Hemoglobin 7.4 g/dL (12.0-15.5) Hematocrit 23.3 % (36.0-47.0) Mean Corpuscular Volume 90 fL (79-100) Mean Corpuscular Hemoglobin 29 pg (25-35) Mean Corpuscular Hemoglobin Concent 32 g/dL (31-37) Red Cell Distribution Width 24.2 % (11.5-14.5) Platelet Count 296 x10^3/uL (140-400) Neutrophils (%) (Auto) 81 % (31-73) Lymphocytes (%) (Auto) 7 % (24-48) Monocytes (%) (Auto) 6 % (0-9) Eosinophils (%) (Auto) 7 % (0-3) Basophils (%) (Auto) 0 % (0-3) Neutrophils # (Auto) 12.2 x10^3uL (1.8-7.7) Lymphocytes # (Auto) 1.0 x10^3/uL (1.0-4.8) Monocytes # (Auto) 0.8 x10^3/uL (0.0-1.1) Eosinophils # (Auto) 1.0 x10^3/uL (0.0-0.7) Basophils # (Auto) 0.1 x10^3/uL (0.0-0.2) Sodium Level 143 mmol/L (136-145) Potassium Level 4.2 mmol/L (3.5-5.1) Chloride Level 116 mmol/L (98-107) Carbon Dioxide Level 17 mmol/L (21-32) Anion Gap 10 (6-14) Blood Urea Nitrogen 28 mg/dL (7-20) Creatinine 0.6 mg/dL (0.6-1.0) Estimated GFR (Cockcroft-Gault) 102.0 BUN/Creatinine Ratio 47 (6-20) Glucose Level 101 mg/dL (70-99) Calcium Level 8.1 mg/dL (8.5-10.1) Phosphorus Level 2.6 mg/dL (2.6-4.7) Magnesium Level 2.0 mg/dL (1.8-2.4) Total Bilirubin 0.4 mg/dL (0.2-1.0) Aspartate Amino Transf (AST/SGOT) 17 U/L (15-37) Alanine Aminotransferase (ALT/SGPT) 31 U/L (14-59) Alkaline Phosphatase 42 U/L (46-116) Total Protein 4.4 g/dL (6.4-8.2) Albumin 1.9 g/dL (3.4-5.0) Albumin/Globulin Ratio 0.8 (1.0-1.7) Triglycerides Level 86 mg/dL (0-150) Cholesterol Level 88 mg/dL (0-200) LDL Cholesterol, Calculated 38 mg/dL (0-100) VLDL Cholesterol, Calculated 17 mg/dL (0-40) Non-HDL Cholesterol Calculated 55 mg/dL (0-129) HDL Cholesterol 33 mg/dL (40-60) Cholesterol/HDL Ratio 2.7 CT abdomen and pelvis Impression: 1. No acute findings in the abdomen or pelvis. 2. Inflammation/edema noted in the pelvic wall and upper thigh soft tissue. This may be secondary to cellulitis or fluid overload state. 3. Small bilateral pleural effusions, right more than left. Micro reviewed Objective Assessment Acute hypoxic respiratory failure/ARDS stable Pulmonary infiltrates s/p Bronch negative,? viral improved Delirium COPD Anemia Critical care myopathy GEO stable Leucocytosis ? reactive was on steroids, no s/s of infection H/o Leg wounds with healed scars Influenza vaccine 09/17 - given C. diff neg, 09/28 metabolic acidosis Edema Plan Plan of Care Observe off antibiotics,do not feel she needs to be restarted at this time Monitor closely No evidence of cellulitis in pelvis or lower abdo at this time elevated wbc likely reactive was on steroids metabolic acidosis awaiting trial with diuresis cont supportive care D/W JAMIE RODRIGUEZ MD Oct 05, 2017 08:40
--- NOTE | 2017-10-05 09:03 | PDOC ---
PROGRESS NOTES Subjective Subjective HPI - Iron deficiency anemia ROS -no bleed Objective Objective Vital Signs Date Time Temp Pulse Resp B/P (MAP) Pulse Ox O2 Delivery O2 Flow Rate FiO2 10/05/17 07:52 99 Room Air 10/05/17 07:00 97.5 103 20 147/105 (119) 97.5 10/03/17 10:46 2.0 Intake and Output 10/05/17 06:59 Intake Total 570 ml Output Total 2081 ml Balance -1511 ml Intake Oral 570 ml Output Urine Total 2075 ml Stool Total 6 ml # Bowel Movements 2 Physical Exam Heart: Normal S1, Normal S2 General: Alert, Oriented X3 Lungs: Clear to auscultation Neuro: Normal speech Psych/Mental Status: Mental status NL Assessment Assessment Problems Medical Problems: (1) Dyspnea Status: Acute (2) Hypoalbuminemia Status: Acute (3) Metabolic acidosis Status: Acute (4) Pneumonia Status: Acute IMPRESSION AND PLAN: 1. Iron deficiency anemia. She received Venofer 500 mg intravenous on 2016. I will continue to monitor hemoglobin and transfuse as needed. Hemoglobin improved to 7.7 after transfusion. Then worse at 6.6 on 09/19/17. s/p 1 unit 09/19/17. Hb worse at 7.5 on 10/01/17 and 7.6 on 10/02/17, s/p PRBC. Hb better at 9.1 , now 7.4 GI following. s/p second dose of venofer 500 mg IV 10/01/17. Bleeding scan 10/02/17 is normal. 2. Leukocytosis, reactive from underlying pneumonia. Management per Pulmonary Medicine. WBC 15.1 3. Pneumonia/dyspnea - Improved. Comment Review of Relevant I have reviewed the following items tha (where applicable) has been applied. Labs Laboratory Tests Test 10/04/17 05:15 10/05/17 05:00 10/05/17 08:00 White Blood Count 17.3 x10^3/uL (4.0-11.0) 15.1 x10^3/uL (4.0-11.0) Red Blood Count 2.96 x10^6/uL (3.50-5.40) 2.59 x10^6/uL (3.50-5.40) Hemoglobin 8.2 g/dL (12.0-15.5) 7.4 g/dL (12.0-15.5) Hematocrit 26.7 % (36.0-47.0) 23.3 % (36.0-47.0) Mean Corpuscular Volume 90 fL (79-100) 90 fL (79-100) Mean Corpuscular Hemoglobin 28 pg (25-35) 29 pg (25-35) Mean Corpuscular Hemoglobin Concent 31 g/dL (31-37) 32 g/dL (31-37) Red Cell Distribution Width 23.5 % (11.5-14.5) 24.2 % (11.5-14.5) Platelet Count 304 x10^3/uL (140-400) 296 x10^3/uL (140-400) Erythrocyte Sedimentation Rate 20 (0-25) Sodium Level 146 mmol/L (136-145) 143 mmol/L (136-145) Potassium Level 4.0 mmol/L (3.5-5.1) 4.2 mmol/L (3.5-5.1) Chloride Level 119 mmol/L (98-107) 116 mmol/L (98-107) Carbon Dioxide Level 19 mmol/L (21-32) 17 mmol/L (21-32) Anion Gap 8 (6-14) 10 (6-14) Blood Urea Nitrogen 35 mg/dL (7-20) 28 mg/dL (7-20) Creatinine 0.6 mg/dL (0.6-1.0) 0.6 mg/dL (0.6-1.0) Estimated GFR (Cockcroft-Gault) 102.0 102.0 Glucose Level 111 mg/dL (70-99) 101 mg/dL (70-99) Calcium Level 7.8 mg/dL (8.5-10.1) 8.1 mg/dL (8.5-10.1) Phosphorus Level 2.8 mg/dL (2.6-4.7) 2.6 mg/dL (2.6-4.7) Magnesium Level 1.9 mg/dL (1.8-2.4) 2.0 mg/dL (1.8-2.4) Neutrophils (%) (Auto) 81 % (31-73) Lymphocytes (%) (Auto) 7 % (24-48) Monocytes (%) (Auto) 6 % (0-9) Eosinophils (%) (Auto) 7 % (0-3) Basophils (%) (Auto) 0 % (0-3) Neutrophils # (Auto) 12.2 x10^3uL (1.8-7.7) Lymphocytes # (Auto) 1.0 x10^3/uL (1.0-4.8) Monocytes # (Auto) 0.8 x10^3/uL (0.0-1.1) Eosinophils # (Auto) 1.0 x10^3/uL (0.0-0.7) Basophils # (Auto) 0.1 x10^3/uL (0.0-0.2) BUN/Creatinine Ratio 47 (6-20) Total Bilirubin 0.4 mg/dL (0.2-1.0) Aspartate Amino Transf (AST/SGOT) 17 U/L (15-37) Alanine Aminotransferase (ALT/SGPT) 31 U/L (14-59) Alkaline Phosphatase 42 U/L (46-116) Total Protein 4.4 g/dL (6.4-8.2) Albumin 1.9 g/dL (3.4-5.0) Albumin/Globulin Ratio 0.8 (1.0-1.7) Triglycerides Level 86 mg/dL (0-150) Cholesterol Level 88 mg/dL (0-200) LDL Cholesterol, Calculated 38 mg/dL (0-100) VLDL Cholesterol, Calculated 17 mg/dL (0-40) Non-HDL Cholesterol Calculated 55 mg/dL (0-129) HDL Cholesterol 33 mg/dL (40-60) Cholesterol/HDL Ratio 2.7 Lactic Acid Level 1.0 mmol/L (0.4-2.0) Laboratory Tests Test 10/05/17 05:00 10/05/17 08:00 White Blood Count 15.1 x10^3/uL (4.0-11.0) Red Blood Count 2.59 x10^6/uL (3.50-5.40) Hemoglobin 7.4 g/dL (12.0-15.5) Hematocrit 23.3 % (36.0-47.0) Mean Corpuscular Volume 90 fL (79-100) Mean Corpuscular Hemoglobin 29 pg (25-35) Mean Corpuscular Hemoglobin Concent 32 g/dL (31-37) Red Cell Distribution Width 24.2 % (11.5-14.5) Platelet Count 296 x10^3/uL (140-400) Neutrophils (%) (Auto) 81 % (31-73) Lymphocytes (%) (Auto) 7 % (24-48) Monocytes (%) (Auto) 6 % (0-9) Eosinophils (%) (Auto) 7 % (0-3) Basophils (%) (Auto) 0 % (0-3) Neutrophils # (Auto) 12.2 x10^3uL (1.8-7.7) Lymphocytes # (Auto) 1.0 x10^3/uL (1.0-4.8) Monocytes # (Auto) 0.8 x10^3/uL (0.0-1.1) Eosinophils # (Auto) 1.0 x10^3/uL (0.0-0.7) Basophils # (Auto) 0.1 x10^3/uL (0.0-0.2) Sodium Level 143 mmol/L (136-145) Potassium Level 4.2 mmol/L (3.5-5.1) Chloride Level 116 mmol/L (98-107) Carbon Dioxide Level 17 mmol/L (21-32) Anion Gap 10 (6-14) Blood Urea Nitrogen 28 mg/dL (7-20) Creatinine 0.6 mg/dL (0.6-1.0) Estimated GFR (Cockcroft-Gault) 102.0 BUN/Creatinine Ratio 47 (6-20) Glucose Level 101 mg/dL (70-99) Calcium Level 8.1 mg/dL (8.5-10.1) Phosphorus Level 2.6 mg/dL (2.6-4.7) Magnesium Level 2.0 mg/dL (1.8-2.4) Total Bilirubin 0.4 mg/dL (0.2-1.0) Aspartate Amino Transf (AST/SGOT) 17 U/L (15-37) Alanine Aminotransferase (ALT/SGPT) 31 U/L (14-59) Alkaline Phosphatase 42 U/L (46-116) Total Protein 4.4 g/dL (6.4-8.2) Albumin 1.9 g/dL (3.4-5.0) Albumin/Globulin Ratio 0.8 (1.0-1.7) Triglycerides Level 86 mg/dL (0-150) Cholesterol Level 88 mg/dL (0-200) LDL Cholesterol, Calculated 38 mg/dL (0-100) VLDL Cholesterol, Calculated 17 mg/dL (0-40) Non-HDL Cholesterol Calculated 55 mg/dL (0-129) HDL Cholesterol 33 mg/dL (40-60) Cholesterol/HDL Ratio 2.7 Lactic Acid Level 1.0 mmol/L (0.4-2.0) Microbiology 09/17/17 Blood Culture - Final, Complete NO GROWTH AFTER 5 DAYS 09/20/17 AFB Specimen Processing Tissue - Final, Resulted 09/20/17 Acid Fast Bacilli Culture, Resulted Pending 09/20/17 Gram Stain - Final, Resulted 09/20/17 Fungal Culture - Preliminary, Resulted 09/20/17 Fungal Culture Result 1 - Preliminary, Resulted Medications Current Medications Sodium Chloride 1,000 ml @ 125 mls/hr 1X ONCE IV Last administered on 15:54; Start 09/17/17 at 15:15; Stop 09/17/17 at 23:14; Status DC Ondansetron HCl (Zofran) 4 mg PRN Q8HRS PRN IV NAUSEA/VOMITING; Start at 16:30; Stop 09/18/17 at 16:29; Status DC Ceftriaxone Sodium 50 ml @ 0 mls/hr 1X ONCE IV Last administered on 17:33; Start 09/17/17 at 16:45; Stop 09/17/17 at 16:46; Status DC Azithromycin 250 ml @ 250 mls/hr 1X ONCE IV Last administered on 09/17/17 22:38; Start 09/17/17 at 16:30; Stop 09/17/17 at 17:29; Status DC Albuterol/ Ipratropium (Duoneb) 3 ml 1X ONCE NEB Last administered on 17:00; Start 09/17/17 at 16:45; Stop 09/17/17 at 16:46; Status DC Potassium Chloride (Klor-Con) 40 meq 1X ONCE PO Last administered on 16:57; Start 09/17/17 at 16:45; Stop 09/17/17 at 16:46; Status DC Azithromycin (Zithromax) 250 mg DAILY PO Last administered on 09/18/17 10:25 ; Start 09/18/17 at 09:00; Stop 09/19/17 at 10:30; Status DC Ceftriaxone Sodium 1 gm/ Dextrose 50 ml @ 100 mls/hr Q24H IV ; Start 09/17/17 at 17:15; Status UNV Albuterol/ Ipratropium (Duoneb) 3 ml Q4HRS NEB Last administered on 09/30/17 08:11; Start 09/17/17 at 20:00; Stop 09/30/17 at 09:21; Status DC Ceftriaxone Sodium (Rocephin) 1 gm Q24H IVP Last administered on 09/18/17 17: 55; Start 09/18/17 at 16:00; Stop 09/19/17 at 10:30; Status DC Guaifenesin (Robitussin Dm) 10 ml PRN Q6HRS PRN PO COUGH; Start 09/17/17 at 17 :15; Stop 09/30/17 at 09:21; Status DC Sodium Chloride 1,000 ml @ 125 mls/hr 1X ONCE IV Last administered on 17:45; Start 09/17/17 at 17:15; Stop 09/17/17 at 22:12; Status DC Info (Do NOT chart on this placeholder) 1 each 1X ONCE MC ; Start 09/17/17 at 19:00; Stop 09/17/17 at 19:01; Status UNV Influenza Virus Vaccine Quadrival (Fluarix Quad [id number] Syringe) 0.5 ml ONCE ONCE VAX IM Last administered on 09/17/17 21:00; Start 09/17/17 at 21:00; Stop 09/17/17 at 21:01; Status DC Sodium Chloride 1,000 ml @ 130 mls/hr 1X ONCE IV Last administered on 22:31; Start 09/17/17 at 22:30; Stop 09/18/17 at 06:11; Status DC Sodium Bicarbonate 50 meq 1X ONCE IV Last administered on 09/17/17 22:31; Start 09/17/17 at 22:30; Stop 09/17/17 at 22:31; Status DC Alprazolam (Xanax) 1 mg PRN TID PRN PO ANXIETY Last administered on 09/19/17 02:19; Start 09/17/17 at 22:30; Stop 09/30/17 at 09:21; Status DC Furosemide (Lasix) 20 mg 1X ONCE IVP Last administered on 09/18/17 06:24; Start 09/18/17 at 06:30; Stop 09/18/17 at 06:31; Status DC Potassium Chloride (Klor-Con) 40 meq 1X ONCE PO Last administered on 10:25; Start 09/18/17 at 09:00; Stop 09/18/17 at 09:01; Status DC Iron Sucrose 500 mg/Sodium Chloride 275 ml @ 78.571 mls/ hr 1X ONCE IV Last administered on 09/18/17 10:24; Start 09/18/17 at 09:00; Stop 09/18/17 at 12 :29; Status DC Furosemide (Lasix) 20 mg 1X ONCE IVP Last administered on 09/18/17 10:30; Start 09/18/17 at 10:00; Stop 09/18/17 at 10:22; Status DC Pantoprazole Sodium (Protonix) 40 mg DAILYAC PO Last administered on 10:47; Start 09/18/17 at 11:00; Stop 09/19/17 at 13:41; Status DC Furosemide (Lasix) 20 mg 1X ONCE IVP Last administered on 09/18/17 10:47; Start 09/18/17 at 10:45; Stop 09/18/17 at 10:46; Status DC Potassium Chloride (Klor-Con) 40 meq 1X ONCE PO ; Start 09/18/17 at 11:45; Stop 09/18/17 at 11:46; Status DC Oxycodone/ Acetaminophen (Percocet 5/325) 1 tab PRN Q6HRS PRN PO PAIN Last administered on 10/04/17 12:51; Start 09/18/17 at 12:15 Lorazepam (Ativan) 1 mg PRN Q4HRS PRN IV ANXIETY / AGITATION Last administered on 09/18/17 12:25; Start 09/18/17 at 12:15; Stop 09/18/17 at 13:34; Status DC Fentanyl Citrate (Fentanyl 2ml Vial) 50 mcg PRN Q2HR PRN IV PAIN Last administered on 09/19/17 04:09; Start 09/18/17 at 12:15; Stop 09/30/17 at 09 :21; Status DC Lorazepam (Ativan) 2 mg PRN Q4HRS PRN IV ANXIETY / AGITATION Last administered on 09/29/17 05:17; Start 09/18/17 at 13:30; Stop 09/30/17 at 09:21; Status DC Quetiapine Fumarate (SEROquel) 25 mg HS PO Last administered on 09/18/17 21: 03; Start 09/18/17 at 21:00; Stop 09/19/17 at 10:35; Status DC Haloperidol Lactate (Haldol) 5 mg PRN Q12HRS PRN IVP AGITATION; Start at 13:45 Lorazepam (Ativan) 1 mg PRN Q4HRS PRN IV ANXIETY / AGITATION; Start 09/19/17 at 10:15; Stop 09/19/17 at 10:18; Status DC Lorazepam (Ativan) 4 mg 1X ONCE IV ; Start 09/19/17 at 10:30; Stop 09/19/17 at 10:31; Status DC Vancomycin HCl (Vanco Per Pharmacy) 1 each PRN DAILY PRN MC SEE COMMENTS Last administered on 09/23/17 12:36; Start 09/19/17 at 10:30; Stop 09/24/17 at 08 :36; Status DC Piperacillin Sod/ Tazobactam Sod (Zosyn Per Pharmacy) 1 each PRN DAILY PRN MC SEE COMMENTS; Start 09/19/17 at 10:30; Stop 09/24/17 at 08:41; Status DC Vancomycin HCl 2 gm/Dextrose 500 ml @ 250 mls/hr 1X ONCE IV Last administered on 09/19/17 14:53; Start 09/19/17 at 11:00; Stop 09/19/17 at 12 :59; Status DC Piperacillin Sod/ Tazobactam Sod (Zosyn) 3.375 gm Q6HRS IVP Last administered on 10/02/17 17:13; Start 09/19/17 at 11:00; Stop 10/02/17 at 19:14; Status DC Budesonide (Pulmicort) 0.5 mg RTBID NEB Last administered on 10/05/17 07:52; Start 09/19/17 at 20:00 Budesonide (Pulmicort) 0.5 mg 1X ONCE NEB Last administered on 09/19/17 12: 50; Start 09/19/17 at 10:45; Stop 09/19/17 at 10:46; Status DC Pantoprazole Sodium (PROTONIX VIAL for IV PUSH) 40 mg DAILYAC IVP Last administered on 10/03/17 08:23; Start 09/19/17 at 11:30; Stop 10/04/17 at 08 :51; Status DC Furosemide (Lasix) 40 mg DAILY IVP ; Start 09/19/17 at 11:00; Stop 09/20/17 at 13:20; Status DC Methylprednisolone Sodium Succinate (SOLU-Medrol 125MG VIAL) 125 mg 1X ONCE IV Last administered on 09/19/17 13:23; Start 09/19/17 at 10:45; Stop at 10:46; Status DC Prednisone (Prednisone) 40 mg DAILY PO ; Start 09/19/17 at 11:00; Stop at 09:02; Status DC Methylprednisolone Sodium Succinate (SOLU-Medrol 125MG VIAL) 125 mg Q8HRS IV Last administered on 09/23/17 05:43; Start 09/19/17 at 14:00; Stop 09/23/17 at 10:40; Status DC Midazolam HCl 100 ml @ 0 mls/hr CONT PRN IV SEE I/O RECORD; Start 09/19/17 at 11:00; Stop 09/19/17 at 12:51; Status DC Midazolam HCl (Versed) 5 mg 1X ONCE IV ; Start 09/19/17 at 11:00; Stop at 11:01; Status DC Fentanyl Citrate (Fentanyl 2ml Vial) 50 mcg 1X ONCE IV ; Start 09/19/17 at 11: 00; Stop 09/19/17 at 11:01; Status DC Midazolam HCl 100 ml @ As Directed STK-MED ONCE IV ; Start 09/19/17 at 10:55; Stop 09/19/17 at 10:56; Status DC Midazolam HCl (Versed) 5 mg STK-MED ONCE .ROUTE ; Start 09/19/17 at 10:55; Stop 09/19/17 at 10:56; Status DC Propofol 100 ml @ As Directed STK-MED ONCE IV ; Start 09/19/17 at 10:59; Stop 09/19/17 at 11:00; Status DC Norepinephrine Bitartrate 250 ml @ As Directed STK-MED ONCE IV ; Start at 10:59; Stop 09/19/17 at 11:00; Status DC Furosemide (Lasix) 20 mg 1X ONCE IVP ; Start 09/19/17 at 11:15; Stop at 11:16; Status DC Vecuronium [place] (Norcuron Bolus) 10 mg STK-MED ONCE IV ; Start 09/19/17 at 11:21; Stop 09/19/17 at 11:22; Status DC Fentanyl Citrate 30 ml @ 0 mls/hr CONT PRN IV PROTOCOL Last administered on 15:08; Start 09/19/17 at 11:30; Stop 09/23/17 at 15:24; Status DC Vecuronium [place] (Norcuron Bolus) 6 mg 1X ONCE IV Last administered on 09/19 11:42; Start 09/19/17 at 11:30; Stop 09/19/17 at 11:39; Status DC Propofol 10 ml @ 0 mls/hr 1X ONCE IV Last administered on 09/19/17 11:30; Start 09/19/17 at 11:30; Stop 09/19/17 at 11:39; Status DC Midazolam HCl 100 ml @ 0 mls/hr CONT PRN IV SEE I/O RECORD Last administered on 09/27/17 00:40; Start 09/19/17 at 11:30; Stop 09/30/17 at 09:21; Status DC Norepinephrine Bitartrate 250 ml @ 0 mls/hr CONT PRN IV SEE I/O RECORD Last administered on 09/24/17 05:18; Start 09/19/17 at 11:30; Stop 09/30/17 at 09 :21; Status DC Succinylcholine Chloride (Anectine) 100 mg 1X ONCE IV Last administered on 11:42; Start 09/19/17 at 11:30; Stop 09/19/17 at 11:39; Status DC Sodium Bicarbonate 50 meq 1X ONCE IV Last administered on 09/19/17 13:23; Start 09/19/17 at 12:45; Stop 09/19/17 at 12:46; Status DC Sodium Bicarbonate 50 meq 1X ONCE IV Last administered on 09/19/17 13:23; Start 09/19/17 at 12:45; Stop 09/19/17 at 12:46; Status DC Lidocaine/Sodium Bicarbonate (Buffered Lidocaine 1%) 20 ml STK-MED ONCE IJ ; Start 09/19/17 at 13:34; Stop 09/19/17 at 13:35; Status DC Vecuronium [place] (Norcuron Bolus) 10 mg 1X ONCE IV Last administered on 15:05; Start 09/19/17 at 14:00; Stop 09/19/17 at 14:02; Status DC Lidocaine/Sodium Bicarbonate (Buffered Lidocaine 1%) 3 ml 1X ONCE IJ ; Start 09/19/17 at 14:45; Stop 09/19/17 at 14:46; Status DC Vancomycin HCl 1.25 gm/Dextrose 250 ml @ 166.667 mls/hr Q24H IV Last administered on 09/23/17 17:19; Start 09/20/17 at 15:00; Stop 09/24/17 at 08 :35; Status DC Vancomycin HCl 1 each 1X ONCE MC Last administered on 09/21/17 14:30; Start 09/21/17 at 14:30; Stop 09/21/17 at 14:31; Status DC Azithromycin 500 mg/Sodium Chloride 250 ml @ 250 mls/hr Q24H IV Last administered on 09/23/17 17:19; Start 09/19/17 at 16:30; Stop 09/24/17 at 08 :35; Status DC Norepinephrine Bitartrate (Levophed 8mg/ 250ml Premix Drip) 8 mg STK-MED ONCE IV ; Start 09/19/17 at 11:00; Stop 09/20/17 at 08:44; Status DC Midazolam HCl (Versed) 5 mg STK-MED ONCE .ROUTE ; Start 09/19/17 at 11:00; Stop 09/20/17 at 08:44; Status DC Amino Acids/ Glycerin/ Electrolytes 1,000 ml @ 80 mls/hr [id number] IV Last administered on 09/21/17 01:21; Start 09/20/17 at 10:00; Stop 09/22/17 at 07 :02; Status DC Info 1 each PRN DAILY PRN MC SEE COMMENTS; Start 09/20/17 at 10:00; Stop at 12:14; Status DC Furosemide (Lasix) 20 mg 1X ONCE IVP Last administered on 09/20/17 10:21; Start 09/20/17 at 10:15; Stop 09/20/17 at 10:18; Status DC Info 1 each PRN DAILY PRN MC SEE COMMENTS; Start 09/20/17 at 11:00; Status UNV Vecuronium [place] (Norcuron Bolus) 10 mg 1X ONCE IV Last administered on 12:03; Start 09/20/17 at 11:15; Stop 09/20/17 at 11:24; Status DC Atropine Sulfate 0.5 mg STK-MED ONCE .ROUTE ; Start 09/20/17 at 11:47; Stop at 11:48; Status DC Epinephrine HCl (EPINEPHrine SYRINGE) 1 mg STK-MED ONCE .ROUTE ; Start at 11:47; Stop 09/20/17 at 11:48; Status DC Atropine Sulfate 0.5 mg STK-MED ONCE .ROUTE ; Start 09/20/17 at 12:00; Stop at 09:11; Status DC Epinephrine HCl (EPINEPHrine SYRINGE) 1 mg STK-MED ONCE .ROUTE ; Start at 12:00; Stop 09/21/17 at 09:11; Status DC Furosemide (Lasix) 20 mg DAILY IVP ; Start 09/21/17 at 11:15; Stop 09/21/17 at 11:20; Status DC Lorazepam (Ativan) 1 mg PRN Q1HR PRN IV ANXIETY / AGITATION Last administered on 09/28/17 17:04; Start 09/21/17 at 11:15; Stop 09/30/17 at 09:21; Status DC Albumin Human 250 ml @ 62.5 mls/hr 1X ONCE IV Last administered on 11:57; Start 09/21/17 at 11:30; Stop 09/21/17 at 15:29; Status DC Albumin Human 250 ml @ 62.5 mls/hr 1X ONCE IV Last administered on 14:29; Start 09/21/17 at 11:30; Stop 09/21/17 at 15:29; Status DC Micafungin Sodium 100 mg/Dextrose 100 ml @ 100 mls/hr Q24H IV Last administered on 09/23/17 13:17; Start 09/21/17 at 12:00; Stop 09/24/17 at 08 :35; Status DC Vecuronium [place] (Norcuron Bolus) 4 mg PRN Q4HRS PRN IV AGITATION; Start at 15:00; Stop 09/30/17 at 09:21; Status DC Dexmedetomidine HCl 200 mcg/ Sodium Chloride 50 ml @ 0 mls/hr CONT PRN IV PER PROTOCOL Last administered on 09/21/17 15:54; Start 09/21/17 at 15:30; Stop 09/30/17 at 09:21; Status DC Sodium Chloride 500 ml @ 500 mls/hr 1X PRN PRN IV SEE COMMENTS; Start at 15:30 Atropine Sulfate 0.5 mg PRN Q5MIN PRN IV SEE COMMENTS; Start 09/21/17 at 15:30 Propofol 100 ml @ 0 mls/hr CONT PRN IV PER PROTOCOL Last administered on 14:35; Start 09/21/17 at 16:45; Stop 09/30/17 at 09:21; Status DC Furosemide (Lasix) 20 mg 1X ONCE IVP Last administered on 09/22/17 09:41; Start 09/22/17 at 10:15; Stop 09/22/17 at 10:16; Status DC Chlorhexidine Gluconate (Peridex) 15 ml BID MM Last administered on 09/29/17 08:07; Start 09/22/17 at 21:00; Stop 09/29/17 at 20:22; Status DC Furosemide (Lasix) 20 mg 1X ONCE IVP Last administered on 09/22/17 17:55; Start 09/22/17 at 18:00; Stop 09/22/17 at 18:01; Status DC Furosemide (Lasix) 20 mg DAILY IVP Last administered on 09/23/17 13:16; Start 09/23/17 at 11:30; Stop 09/24/17 at 08:40; Status DC Methylprednisolone Sodium Succinate (SOLU-Medrol 125MG VIAL) 80 mg Q8HRS IV Last administered on 09/30/17 05:47; Start 09/23/17 at 14:00; Stop 09/30/17 at 09:26; Status DC Fentanyl Citrate 55 ml @ 0 mls/hr CONT PRN PRN IV PER PROTOCOL Last administered on 09/28/17 19:13; Start 09/23/17 at 12:15; Stop 09/30/17 at 09 :21; Status DC Dextrose 1,000 ml @ 25 mls/hr Q24H IV Last administered on 09/28/17 12:59; Start 09/23/17 at 11:45; Stop 10/04/17 at 13:14; Status DC Enoxaparin Sodium (Lovenox Per Pharmacy Prophylaxis Dosing) 1 each PRN DAILY PRN MC SEE COMMENTS; Start 09/23/17 at 16:30; Stop 09/24/17 at 08:41; Status DC Enoxaparin Sodium (Lovenox 40mg Syringe) 40 mg Q24H SQ Last administered on 17:27; Start 09/23/17 at 17:00 Bisacodyl (Dulcolax Tab) 5 mg PRN DAILY PRN PO CONSTIPATION; Start 09/24/17 at 09:30 Insulin Aspart (NovoLOG) 0-5 UNITS Q6HRS SQ Last administered on 09/29/17 12: 27; Start 09/25/17 at 18:00; Stop 10/01/17 at 02:54; Status DC Dextrose (Dextrose 50%-Water Syringe) 12.5 gm PRN Q15MIN PRN IV SEE COMMENTS; Start 09/25/17 at 12:30; Stop 10/01/17 at 02:54; Status DC Dextrose/Sodium Chloride 1,000 ml @ 75 mls/hr [id number] IV Last administered on 10/02/17 01:23; Start 09/29/17 at 19:00; Stop 10/02/17 at 09:07; Status DC Ondansetron HCl (Zofran) 4 mg PRN Q6HRS PRN IV NAUSEA/VOMITING Last administered on 10/01/17 20:33; Start 09/29/17 at 20:00 Albuterol/ Ipratropium (Duoneb) 3 ml TID NEB Last administered on 10/05/17 07: 52; Start 09/30/17 at 14:00 Methylprednisolone Sodium Succinate (SOLU-Medrol 125MG VIAL) 80 mg Q12HR IV Last administered on 10/01/17 08:56; Start 09/30/17 at 21:00; Stop 10/01/17 at 10:22; Status DC Iron Sucrose 500 mg/Sodium Chloride 275 ml @ 78.571 mls/ hr 1X ONCE IV Last administered on 10/01/17 10:08; Start 10/01/17 at 09:30; Stop 10/01/17 at 12 :59; Status DC Methylprednisolone Sodium Succinate (SOLU-Medrol 40MG VIAL) 40 mg Q12HR IV ; Start 10/01/17 at 21:00; Stop 10/01/17 at 21:00; Status DC Alprazolam (Xanax) 0.25 mg PRN Q8HRS PRN PO ANXIETY / AGITATION Last administered on 10/04/17 21:09; Start 10/01/17 at 10:30 Quetiapine Fumarate (SEROquel) 50 mg HS PO Last administered on 10/04/17 21: 09; Start 10/01/17 at 21:00 Methylprednisolone Sodium Succinate (SOLU-Medrol 40MG VIAL) 40 mg QHS IV Last administered on 10/01/17 20:32; Start 10/01/17 at 21:00; Stop 10/02/17 at 10 :36; Status DC Saliva Substitute (Biotene Moisturizing Mouth) 2 spray PRN Q15MIN PRN PO DRY MOUTH; Start 10/02/17 at 09:15 Info 1 each PRN DAILY PRN MC SEE COMMENTS Last administered on 10/04/17 13:28 ; Start 10/02/17 at 09:15 Amino Acids/ Glycerin/ Electrolytes 1,000 ml @ 100 mls/hr Q10H IV Last administered on 10/02/17 09:57; Start 10/02/17 at 10:00; Stop 10/02/17 at 19 :59; Status DC Methylprednisolone Sodium Succinate (SOLU-Medrol 40MG VIAL) 20 mg QHS IV Last administered on 10/02/17 21:38; Start 10/02/17 at 21:00; Stop 10/03/17 at 12 :46; Status DC Sodium Acetate 40 meq/Potassium Chloride 50 meq/ Potassium Phosphate 13.6 mmol/ Magnesium Sulfate 10 meq/ Calcium Gluconate 10 meq/ Multivitamins 10 ml/Chromium / Copper/Manganese/ Seleni/Zn 1 ml/ Total Parenteral Nutrition/Amino Acids/ Dextrose/ Fat Emulsion Intravenous 1,512 ml @ 63 mls/hr TPN CONT IV Last administered on 10/02/17 21:37; Start 10/02/17 at 22:00; Stop 10/03/17 at 21 :59; Status DC Morphine Sulfate 2 mg PRN Q2HR PRN IV SEVERE PAIN Last administered on 01:33; Start 10/03/17 at 06:00 Lorazepam (Ativan) 1 mg PRN Q4HRS PRN IV ANXIETY / AGITATION Last administered on 10/04/17 01:15; Start 10/03/17 at 06:00 Potassium Phosphate 13.6 mmol/Sodium Chloride 104.5333 ml @ 52.267 m... Q2H IV Last administered on 10/03/17 17:28; Start 10/03/17 at 12:00; Stop at 15:59; Status DC Potassium Acetate 70 meq/Potassium Phosphate 13.6 mmol/Magnesium Sulfate 10 meq / Calcium Gluconate 10 meq/ Multivitamins 10 ml/Chromium/ Copper/Manganese/ Seleni/Zn 1 ml/ Total Parenteral Nutrition/Amino Acids/Dextrose/ Fat Emulsion Intravenous 1,992 ml @ 83 mls/hr TPN CONT IV Last administered on 10/03/17 22:00; Start 10/03/17 at 22:00; Stop 10/04/17 at 21:59; Status DC Vitamin A/Vitamin D (Vitamin A & D Ointment) 1 joe PRN BID PRN TP SKIN PROTECTION Last administered on 10/04/17 01:28; Start 10/03/17 at 14:00 Pantoprazole Sodium (Protonix) 40 mg DAILYAC PO ; Start 10/05/17 at 07:30 Simethicone (Gas-X) 80 mg PRN AFTMEALHC PRN PO GAS / BLOATING Last administered on 10/04/17 21:09; Start 10/04/17 at 09:00 Polyethylene Glycol (miraLAX PACKET) 17 gm PRN DAILY PRN PO CONSTIPATION; Start 10/04/17 at 09:00 Potassium Acetate 70 meq/Potassium Phosphate 13.6 mmol/Magnesium Sulfate 10 meq / Calcium Gluconate 10 meq/ Multivitamins 10 ml/Chromium/ Copper/Manganese/ Seleni/Zn 1 ml/ Total Parenteral Nutrition/Amino Acids/Dextrose/ Fat Emulsion Intravenous 1,992 ml @ 83 mls/hr TPN CONT IV Last administered on 10/05/17 00:02; Start 10/04/17 at 22:00; Stop 10/05/17 at 21:59 Iohexol (Omnipaque 300 Mg/ml) 75 ml 1X ONCE IV Last administered on 16:25; Start 10/04/17 at 15:30; Stop 10/04/17 at 15:31; Status DC Info (Do NOT chart on this entry -- for MONITORING) 1 each PRN DAILY PRN MC SEE COMMENTS; Start 10/04/17 at 15:45; Stop 10/06/17 at 15:44 Loperamide HCl (Imodium) 2 mg PRN Q1HR PRN PEG DIARRHEA; Start 10/05/17 at 07: 00 Furosemide (Lasix) 20 mg DAILY PO ; Start 10/05/17 at 09:00 Active Scripts Active Reported Gabapentin 300 Mg Capsule 300 Mg PO TID Cymbalta (Duloxetine Hcl) 60 Mg Capsule. 1 Cap PO BID Hydrochlorothiazide Tablet (Hydrochlorothiazide) 25 Mg Tablet 1 Tab PO DAILY Xanax (Alprazolam) 1 Mg Tablet 1 Tab PO TID PRN Vitals/I & O Vital Sign - Last 24 Hours 10/04/17 10/04/17 10/04/17 10/04/17 09:12 10:55 12:32 12:51 Temp 98.4 98.4 Pulse 81 Resp 17 B/P (MAP) 136/74 (94) Pulse Ox 99 97 O2 Delivery Room Air Room Air Room Air Room Air 10/04/17 10/04/17 10/04/17 10/04/17 14:00 14:48 19:00 19:11 Temp 97.8 98.1 97.8 98.1 Pulse 93 99 Resp 17 26 B/P (MAP) 118/66 (83) 116/59 (78) Pulse Ox 99 99 O2 Delivery Room Air Room Air Room Air Room Air 10/04/17 10/04/17 10/04/17 10/04/17 20:00 21:10 21:40 23:35 Temp 98.0 98.0 Pulse 90 Resp 18 20 B/P (MAP) 129/79 (96) Pulse Ox 99 98 O2 Delivery Room Air Room Air Room Air 10/05/17 10/05/17 10/05/17 10/05/17 01:33 02:03 03:28 07:00 Temp 98.1 97.5 98.1 97.5 Pulse 83 103 Resp 20 20 B/P (MAP) 139/70 (93) 147/105 (119) Pulse Ox 98 98 98 95 O2 Delivery Room Air Room Air Room Air Room Air 10/05/17 07:52 Pulse Ox 99 O2 Delivery Room Air Intake and Output 10/04/17 10/04/17 10/05/17 14:59 22:59 06:59 Intake Total 300 ml 270 ml Output Total 854 ml 1227 ml Balance -554 ml -957 ml ELLA ORTEGA MD Oct 05, 2017 09:03
[2017-10-05] MEDS: PANTOPRAZOLE 40 MG TABLET.DR. PO SCH (09:26)
[2017-10-05] MEDS: LOPERAMIDE 2 MG/10 ML ORAL SOLUTION. PEG PRN ×2 (09:27→12:22)
[2017-10-05] MEDS: FUROSEMIDE 20 MG TABLET PO SCH (09:27)
--- NOTE | 2017-10-05 09:44 | PDOC ---
PROGRESS NOTES Subjective Subjective She still admits gas pains Objective Objective Vital Signs Date Time Temp Pulse Resp B/P (MAP) Pulse Ox O2 Delivery O2 Flow Rate FiO2 10/05/17 07:52 99 Room Air 10/05/17 07:00 97.5 103 20 147/105 (119) 97.5 10/03/17 10:46 2.0 Intake and Output 10/05/17 07:00 Intake Total 570 ml Output Total 2081 ml Balance -1511 ml Intake Oral 570 ml Output Urine Total 2075 ml Stool Total 6 ml # Bowel Movements 2 Physical Exam Physical Exam She is awake and talking and she is making more sense and she continues with generalized muscle weakness and edema of her lower extremities and bilateral foot drop.She is anemic. Assessment Assessment Problems Medical Problems: (1) Dyspnea Status: Acute (2) Hypoalbuminemia Status: Acute (3) Metabolic acidosis Status: Acute (4) Pneumonia Status: Acute Plan Plan of Care To continue present rehab efforts as tolerated.With so many medical problems she may be better of going to rehab unit at [facility] when medically stable. Comment Review of Relevant I have reviewed the following items tha (where applicable) has been applied. Labs Laboratory Tests Test 10/04/17 05:15 10/05/17 05:00 10/05/17 08:00 White Blood Count 17.3 x10^3/uL (4.0-11.0) 15.1 x10^3/uL (4.0-11.0) Red Blood Count 2.96 x10^6/uL (3.50-5.40) 2.59 x10^6/uL (3.50-5.40) Hemoglobin 8.2 g/dL (12.0-15.5) 7.4 g/dL (12.0-15.5) Hematocrit 26.7 % (36.0-47.0) 23.3 % (36.0-47.0) Mean Corpuscular Volume 90 fL (79-100) 90 fL (79-100) Mean Corpuscular Hemoglobin 28 pg (25-35) 29 pg (25-35) Mean Corpuscular Hemoglobin Concent 31 g/dL (31-37) 32 g/dL (31-37) Red Cell Distribution Width 23.5 % (11.5-14.5) 24.2 % (11.5-14.5) Platelet Count 304 x10^3/uL (140-400) 296 x10^3/uL (140-400) Erythrocyte Sedimentation Rate 20 (0-25) Sodium Level 146 mmol/L (136-145) 143 mmol/L (136-145) Potassium Level 4.0 mmol/L (3.5-5.1) 4.2 mmol/L (3.5-5.1) Chloride Level 119 mmol/L (98-107) 116 mmol/L (98-107) Carbon Dioxide Level 19 mmol/L (21-32) 17 mmol/L (21-32) Anion Gap 8 (6-14) 10 (6-14) Blood Urea Nitrogen 35 mg/dL (7-20) 28 mg/dL (7-20) Creatinine 0.6 mg/dL (0.6-1.0) 0.6 mg/dL (0.6-1.0) Estimated GFR (Cockcroft-Gault) 102.0 102.0 Glucose Level 111 mg/dL (70-99) 101 mg/dL (70-99) Calcium Level 7.8 mg/dL (8.5-10.1) 8.1 mg/dL (8.5-10.1) Phosphorus Level 2.8 mg/dL (2.6-4.7) 2.6 mg/dL (2.6-4.7) Magnesium Level 1.9 mg/dL (1.8-2.4) 2.0 mg/dL (1.8-2.4) Neutrophils (%) (Auto) 81 % (31-73) Lymphocytes (%) (Auto) 7 % (24-48) Monocytes (%) (Auto) 6 % (0-9) Eosinophils (%) (Auto) 7 % (0-3) Basophils (%) (Auto) 0 % (0-3) Neutrophils # (Auto) 12.2 x10^3uL (1.8-7.7) Lymphocytes # (Auto) 1.0 x10^3/uL (1.0-4.8) Monocytes # (Auto) 0.8 x10^3/uL (0.0-1.1) Eosinophils # (Auto) 1.0 x10^3/uL (0.0-0.7) Basophils # (Auto) 0.1 x10^3/uL (0.0-0.2) BUN/Creatinine Ratio 47 (6-20) Total Bilirubin 0.4 mg/dL (0.2-1.0) Aspartate Amino Transf (AST/SGOT) 17 U/L (15-37) Alanine Aminotransferase (ALT/SGPT) 31 U/L (14-59) Alkaline Phosphatase 42 U/L (46-116) Total Protein 4.4 g/dL (6.4-8.2) Albumin 1.9 g/dL (3.4-5.0) Albumin/Globulin Ratio 0.8 (1.0-1.7) Triglycerides Level 86 mg/dL (0-150) Cholesterol Level 88 mg/dL (0-200) LDL Cholesterol, Calculated 38 mg/dL (0-100) VLDL Cholesterol, Calculated 17 mg/dL (0-40) Non-HDL Cholesterol Calculated 55 mg/dL (0-129) HDL Cholesterol 33 mg/dL (40-60) Cholesterol/HDL Ratio 2.7 Lactic Acid Level 1.0 mmol/L (0.4-2.0) Laboratory Tests Test 10/05/17 05:00 10/05/17 08:00 White Blood Count 15.1 x10^3/uL (4.0-11.0) Red Blood Count 2.59 x10^6/uL (3.50-5.40) Hemoglobin 7.4 g/dL (12.0-15.5) Hematocrit 23.3 % (36.0-47.0) Mean Corpuscular Volume 90 fL (79-100) Mean Corpuscular Hemoglobin 29 pg (25-35) Mean Corpuscular Hemoglobin Concent 32 g/dL (31-37) Red Cell Distribution Width 24.2 % (11.5-14.5) Platelet Count 296 x10^3/uL (140-400) Neutrophils (%) (Auto) 81 % (31-73) Lymphocytes (%) (Auto) 7 % (24-48) Monocytes (%) (Auto) 6 % (0-9) Eosinophils (%) (Auto) 7 % (0-3) Basophils (%) (Auto) 0 % (0-3) Neutrophils # (Auto) 12.2 x10^3uL (1.8-7.7) Lymphocytes # (Auto) 1.0 x10^3/uL (1.0-4.8) Monocytes # (Auto) 0.8 x10^3/uL (0.0-1.1) Eosinophils # (Auto) 1.0 x10^3/uL (0.0-0.7) Basophils # (Auto) 0.1 x10^3/uL (0.0-0.2) Sodium Level 143 mmol/L (136-145) Potassium Level 4.2 mmol/L (3.5-5.1) Chloride Level 116 mmol/L (98-107) Carbon Dioxide Level 17 mmol/L (21-32) Anion Gap 10 (6-14) Blood Urea Nitrogen 28 mg/dL (7-20) Creatinine 0.6 mg/dL (0.6-1.0) Estimated GFR (Cockcroft-Gault) 102.0 BUN/Creatinine Ratio 47 (6-20) Glucose Level 101 mg/dL (70-99) Calcium Level 8.1 mg/dL (8.5-10.1) Phosphorus Level 2.6 mg/dL (2.6-4.7) Magnesium Level 2.0 mg/dL (1.8-2.4) Total Bilirubin 0.4 mg/dL (0.2-1.0) Aspartate Amino Transf (AST/SGOT) 17 U/L (15-37) Alanine Aminotransferase (ALT/SGPT) 31 U/L (14-59) Alkaline Phosphatase 42 U/L (46-116) Total Protein 4.4 g/dL (6.4-8.2) Albumin 1.9 g/dL (3.4-5.0) Albumin/Globulin Ratio 0.8 (1.0-1.7) Triglycerides Level 86 mg/dL (0-150) Cholesterol Level 88 mg/dL (0-200) LDL Cholesterol, Calculated 38 mg/dL (0-100) VLDL Cholesterol, Calculated 17 mg/dL (0-40) Non-HDL Cholesterol Calculated 55 mg/dL (0-129) HDL Cholesterol 33 mg/dL (40-60) Cholesterol/HDL Ratio 2.7 Lactic Acid Level 1.0 mmol/L (0.4-2.0) Microbiology 09/17/17 Blood Culture - Final, Complete NO GROWTH AFTER 5 DAYS 09/20/17 AFB Specimen Processing Tissue - Final, Resulted 09/20/17 Acid Fast Bacilli Culture, Resulted Pending 09/20/17 Gram Stain - Final, Resulted 09/20/17 Fungal Culture - Preliminary, Resulted 09/20/17 Fungal Culture Result 1 - Preliminary, Resulted Medications Current Medications Sodium Chloride 1,000 ml @ 125 mls/hr 1X ONCE IV Last administered on 15:54; Start 09/17/17 at 15:15; Stop 09/17/17 at 23:14; Status DC Ondansetron HCl (Zofran) 4 mg PRN Q8HRS PRN IV NAUSEA/VOMITING; Start at 16:30; Stop 09/18/17 at 16:29; Status DC Ceftriaxone Sodium 50 ml @ 0 mls/hr 1X ONCE IV Last administered on 17:33; Start 09/17/17 at 16:45; Stop 09/17/17 at 16:46; Status DC Azithromycin 250 ml @ 250 mls/hr 1X ONCE IV Last administered on 09/17/17 22:38; Start 09/17/17 at 16:30; Stop 09/17/17 at 17:29; Status DC Albuterol/ Ipratropium (Duoneb) 3 ml 1X ONCE NEB Last administered on 17:00; Start 09/17/17 at 16:45; Stop 09/17/17 at 16:46; Status DC Potassium Chloride (Klor-Con) 40 meq 1X ONCE PO Last administered on 16:57; Start 09/17/17 at 16:45; Stop 09/17/17 at 16:46; Status DC Azithromycin (Zithromax) 250 mg DAILY PO Last administered on 09/18/17 10:25 ; Start 09/18/17 at 09:00; Stop 09/19/17 at 10:30; Status DC Ceftriaxone Sodium 1 gm/ Dextrose 50 ml @ 100 mls/hr Q24H IV ; Start 09/17/17 at 17:15; Status UNV Albuterol/ Ipratropium (Duoneb) 3 ml Q4HRS NEB Last administered on 09/30/17 08:11; Start 09/17/17 at 20:00; Stop 09/30/17 at 09:21; Status DC Ceftriaxone Sodium (Rocephin) 1 gm Q24H IVP Last administered on 09/18/17 17: 55; Start 09/18/17 at 16:00; Stop 09/19/17 at 10:30; Status DC Guaifenesin (Robitussin Dm) 10 ml PRN Q6HRS PRN PO COUGH; Start 09/17/17 at 17 :15; Stop 09/30/17 at 09:21; Status DC Sodium Chloride 1,000 ml @ 125 mls/hr 1X ONCE IV Last administered on 17:45; Start 09/17/17 at 17:15; Stop 09/17/17 at 22:12; Status DC Info (Do NOT chart on this placeholder) 1 each 1X ONCE MC ; Start 09/17/17 at 19:00; Stop 09/17/17 at 19:01; Status UNV Influenza Virus Vaccine Quadrival (Fluarix Quad [id number] Syringe) 0.5 ml ONCE ONCE VAX IM Last administered on 09/17/17 21:00; Start 09/17/17 at 21:00; Stop 09/17/17 at 21:01; Status DC Sodium Chloride 1,000 ml @ 130 mls/hr 1X ONCE IV Last administered on 22:31; Start 09/17/17 at 22:30; Stop 09/18/17 at 06:11; Status DC Sodium Bicarbonate 50 meq 1X ONCE IV Last administered on 09/17/17 22:31; Start 09/17/17 at 22:30; Stop 09/17/17 at 22:31; Status DC Alprazolam (Xanax) 1 mg PRN TID PRN PO ANXIETY Last administered on 09/19/17 02:19; Start 09/17/17 at 22:30; Stop 09/30/17 at 09:21; Status DC Furosemide (Lasix) 20 mg 1X ONCE IVP Last administered on 09/18/17 06:24; Start 09/18/17 at 06:30; Stop 09/18/17 at 06:31; Status DC Potassium Chloride (Klor-Con) 40 meq 1X ONCE PO Last administered on 10:25; Start 09/18/17 at 09:00; Stop 09/18/17 at 09:01; Status DC Iron Sucrose 500 mg/Sodium Chloride 275 ml @ 78.571 mls/ hr 1X ONCE IV Last administered on 09/18/17 10:24; Start 09/18/17 at 09:00; Stop 09/18/17 at 12 :29; Status DC Furosemide (Lasix) 20 mg 1X ONCE IVP Last administered on 09/18/17 10:30; Start 09/18/17 at 10:00; Stop 09/18/17 at 10:22; Status DC Pantoprazole Sodium (Protonix) 40 mg DAILYAC PO Last administered on 10:47; Start 09/18/17 at 11:00; Stop 09/19/17 at 13:41; Status DC Furosemide (Lasix) 20 mg 1X ONCE IVP Last administered on 09/18/17 10:47; Start 09/18/17 at 10:45; Stop 09/18/17 at 10:46; Status DC Potassium Chloride (Klor-Con) 40 meq 1X ONCE PO ; Start 09/18/17 at 11:45; Stop 09/18/17 at 11:46; Status DC Oxycodone/ Acetaminophen (Percocet 5/325) 1 tab PRN Q6HRS PRN PO PAIN Last administered on 10/04/17 12:51; Start 09/18/17 at 12:15 Lorazepam (Ativan) 1 mg PRN Q4HRS PRN IV ANXIETY / AGITATION Last administered on 09/18/17 12:25; Start 09/18/17 at 12:15; Stop 09/18/17 at 13:34; Status DC Fentanyl Citrate (Fentanyl 2ml Vial) 50 mcg PRN Q2HR PRN IV PAIN Last administered on 09/19/17 04:09; Start 09/18/17 at 12:15; Stop 09/30/17 at 09 :21; Status DC Lorazepam (Ativan) 2 mg PRN Q4HRS PRN IV ANXIETY / AGITATION Last administered on 09/29/17 05:17; Start 09/18/17 at 13:30; Stop 09/30/17 at 09:21; Status DC Quetiapine Fumarate (SEROquel) 25 mg HS PO Last administered on 11/14/17at 21: 03; Start 09/18/17 at 21:00; Stop 09/19/17 at 10:35; Status DC Haloperidol Lactate (Haldol) 5 mg PRN Q12HRS PRN IVP AGITATION; Start at 13:45 Lorazepam (Ativan) 1 mg PRN Q4HRS PRN IV ANXIETY / AGITATION; Start 09/19/17 at 10:15; Stop 09/19/17 at 10:18; Status DC Lorazepam (Ativan) 4 mg 1X ONCE IV ; Start 09/19/17 at 10:30; Stop 09/19/17 at 10:31; Status DC Vancomycin HCl (Vanco Per Pharmacy) 1 each PRN DAILY PRN MC SEE COMMENTS Last administered on 09/23/17 12:36; Start 09/19/17 at 10:30; Stop 09/24/17 at 08 :36; Status DC Piperacillin Sod/ Tazobactam Sod (Zosyn Per Pharmacy) 1 each PRN DAILY PRN MC SEE COMMENTS; Start 09/19/17 at 10:30; Stop 09/24/17 at 08:41; Status DC Vancomycin HCl 2 gm/Dextrose 500 ml @ 250 mls/hr 1X ONCE IV Last administered on 09/19/17 14:53; Start 09/19/17 at 11:00; Stop 09/19/17 at 12 :59; Status DC Piperacillin Sod/ Tazobactam Sod (Zosyn) 3.375 gm Q6HRS IVP Last administered on 10/02/17 17:13; Start 09/19/17 at 11:00; Stop 10/02/17 at 19:14; Status DC Budesonide (Pulmicort) 0.5 mg RTBID NEB Last administered on 10/05/17 07:52; Start 09/19/17 at 20:00 Budesonide (Pulmicort) 0.5 mg 1X ONCE NEB Last administered on 09/19/17 12: 50; Start 09/19/17 at 10:45; Stop 09/19/17 at 10:46; Status DC Pantoprazole Sodium (PROTONIX VIAL for IV PUSH) 40 mg DAILYAC IVP Last administered on 10/03/17 08:23; Start 09/19/17 at 11:30; Stop 10/04/17 at 08 :51; Status DC Furosemide (Lasix) 40 mg DAILY IVP ; Start 09/19/17 at 11:00; Stop 09/20/17 at 13:20; Status DC Methylprednisolone Sodium Succinate (SOLU-Medrol 125MG VIAL) 125 mg 1X ONCE IV Last administered on 09/19/17t 13:23; Start 09/19/17 at 10:45; Stop at 10:46; Status DC Prednisone (Prednisone) 40 mg DAILY PO ; Start 09/19/17 at 11:00; Stop at 09:02; Status DC Methylprednisolone Sodium Succinate (SOLU-Medrol 125MG VIAL) 125 mg Q8HRS IV Last administered on 09/23/17t 05:43; Start 09/19/17 at 14:00; Stop 09/23/17 at 10:40; Status DC Midazolam HCl 100 ml @ 0 mls/hr CONT PRN IV SEE I/O RECORD; Start 09/19/17 at 11:00; Stop 09/19/17 at 12:51; Status DC Midazolam HCl (Versed) 5 mg 1X ONCE IV ; Start 09/19/17 at 11:00; Stop at 11:01; Status DC Fentanyl Citrate (Fentanyl 2ml Vial) 50 mcg 1X ONCE IV ; Start 09/19/17 at 11: 00; Stop 09/19/17 at 11:01; Status DC Midazolam HCl 100 ml @ As Directed STK-MED ONCE IV ; Start 09/19/17 at 10:55; Stop 09/19/17 at 10:56; Status DC Midazolam HCl (Versed) 5 mg STK-MED ONCE .ROUTE ; Start 09/19/17 at 10:55; Stop 09/19/17 at 10:56; Status DC Propofol 100 ml @ As Directed STK-MED ONCE IV ; Start 09/19/17 at 10:59; Stop 09/19/17 at 11:00; Status DC Norepinephrine Bitartrate 250 ml @ As Directed STK-MED ONCE IV ; Start at 10:59; Stop 09/19/17 at 11:00; Status DC Furosemide (Lasix) 20 mg 1X ONCE IVP ; Start 09/19/17 at 11:15; Stop at 11:16; Status DC Vecuronium [place] (Norcuron Bolus) 10 mg STK-MED ONCE IV ; Start 09/19/17 at 11:21; Stop 09/19/17 at 11:22; Status DC Fentanyl Citrate 30 ml @ 0 mls/hr CONT PRN IV PROTOCOL Last administered on 15:08; Start 09/19/17 at 11:30; Stop 09/23/17 at 15:24; Status DC Vecuronium [place] (Norcuron Bolus) 6 mg 1X ONCE IV Last administered on 09/19 11:42; Start 09/19/17 at 11:30; Stop 09/19/17 at 11:39; Status DC Propofol 10 ml @ 0 mls/hr 1X ONCE IV Last administered on 09/19/17 11:30; Start 09/19/17 at 11:30; Stop 09/19/17 at 11:39; Status DC Midazolam HCl 100 ml @ 0 mls/hr CONT PRN IV SEE I/O RECORD Last administered on 09/27/17 00:40; Start 09/19/17 at 11:30; Stop 09/30/17 at 09:21; Status DC Norepinephrine Bitartrate 250 ml @ 0 mls/hr CONT PRN IV SEE I/O RECORD Last administered on 09/24/17 05:18; Start 09/19/17 at 11:30; Stop 09/30/17 at 09 :21; Status DC Succinylcholine Chloride (Anectine) 100 mg 1X ONCE IV Last administered on 11:42; Start 09/19/17 at 11:30; Stop 09/19/17 at 11:39; Status DC Sodium Bicarbonate 50 meq 1X ONCE IV Last administered on 09/19/17 13:23; Start 09/19/17 at 12:45; Stop 09/19/17 at 12:46; Status DC Sodium Bicarbonate 50 meq 1X ONCE IV Last administered on 09/19/17 13:23; Start 09/19/17 at 12:45; Stop 09/19/17 at 12:46; Status DC Lidocaine/Sodium Bicarbonate (Buffered Lidocaine 1%) 20 ml STK-MED ONCE IJ ; Start 09/19/17 at 13:34; Stop 09/19/17 at 13:35; Status DC Vecuronium [place] (Norcuron Bolus) 10 mg 1X ONCE IV Last administered on 15:05; Start 09/19/17 at 14:00; Stop 09/19/17 at 14:02; Status DC Lidocaine/Sodium Bicarbonate (Buffered Lidocaine 1%) 3 ml 1X ONCE IJ ; Start 09/19/17 at 14:45; Stop 09/19/17 at 14:46; Status DC Vancomycin HCl 1.25 gm/Dextrose 250 ml @ 166.667 mls/hr Q24H IV Last administered on 09/23/17 17:19; Start 09/20/17 at 15:00; Stop 09/24/17 at 08 :35; Status DC Vancomycin HCl 1 each 1X ONCE MC Last administered on 09/21/17 14:30; Start 09/21/17 at 14:30; Stop 09/21/17 at 14:31; Status DC Azithromycin 500 mg/Sodium Chloride 250 ml @ 250 mls/hr Q24H IV Last administered on 09/23/17 17:19; Start 09/19/17 at 16:30; Stop 09/24/17 at 08 :35; Status DC Norepinephrine Bitartrate (Levophed 8mg/ 250ml Premix Drip) 8 mg STK-MED ONCE IV ; Start 09/19/17 at 11:00; Stop 09/20/17 at 08:44; Status DC Midazolam HCl (Versed) 5 mg STK-MED ONCE .ROUTE ; Start 09/19/17 at 11:00; Stop 09/20/17 at 08:44; Status DC Amino Acids/ Glycerin/ Electrolytes 1,000 ml @ 80 mls/hr [id number] IV Last administered on 09/21/17 01:21; Start 09/20/17 at 10:00; Stop 09/22/17 at 07 :02; Status DC Info 1 each PRN DAILY PRN MC SEE COMMENTS; Start 09/20/17 at 10:00; Stop at 12:14; Status DC Furosemide (Lasix) 20 mg 1X ONCE IVP Last administered on 09/20/17 10:21; Start 09/20/17 at 10:15; Stop 09/20/17 at 10:18; Status DC Info 1 each PRN DAILY PRN MC SEE COMMENTS; Start 09/20/17 at 11:00; Status UNV Vecuronium [place] (Norcuron Bolus) 10 mg 1X ONCE IV Last administered on 12:03; Start 09/20/17 at 11:15; Stop 09/20/17 at 11:24; Status DC Atropine Sulfate 0.5 mg STK-MED ONCE .ROUTE ; Start 09/20/17 at 11:47; Stop at 11:48; Status DC Epinephrine HCl (EPINEPHrine SYRINGE) 1 mg STK-MED ONCE .ROUTE ; Start at 11:47; Stop 09/20/17 at 11:48; Status DC Atropine Sulfate 0.5 mg STK-MED ONCE .ROUTE ; Start 09/20/17 at 12:00; Stop at 09:11; Status DC Epinephrine HCl (EPINEPHrine SYRINGE) 1 mg STK-MED ONCE .ROUTE ; Start at 12:00; Stop 09/21/17 at 09:11; Status DC Furosemide (Lasix) 20 mg DAILY IVP ; Start 09/21/17 at 11:15; Stop 09/21/17 at 11:20; Status DC Lorazepam (Ativan) 1 mg PRN Q1HR PRN IV ANXIETY / AGITATION Last administered on 09/28/17 17:04; Start 09/21/17 at 11:15; Stop 09/30/17 at 09:21; Status DC Albumin Human 250 ml @ 62.5 mls/hr 1X ONCE IV Last administered on 11:57; Start 09/21/17 at 11:30; Stop 09/21/17 at 15:29; Status DC Albumin Human 250 ml @ 62.5 mls/hr 1X ONCE IV Last administered on 14:29; Start 09/21/17 at 11:30; Stop 09/21/17 at 15:29; Status DC Micafungin Sodium 100 mg/Dextrose 100 ml @ 100 mls/hr Q24H IV Last administered on 09/23/17 13:17; Start 09/21/17 at 12:00; Stop 09/24/17 at 08 :35; Status DC Vecuronium [place] (Norcuron Bolus) 4 mg PRN Q4HRS PRN IV AGITATION; Start at 15:00; Stop 09/30/17 at 09:21; Status DC Dexmedetomidine HCl 200 mcg/ Sodium Chloride 50 ml @ 0 mls/hr CONT PRN IV PER PROTOCOL Last administered on 09/21/17 15:54; Start 09/21/17 at 15:30; Stop 09/30/17 at 09:21; Status DC Sodium Chloride 500 ml @ 500 mls/hr 1X PRN PRN IV SEE COMMENTS; Start at 15:30 Atropine Sulfate 0.5 mg PRN Q5MIN PRN IV SEE COMMENTS; Start 09/21/17 at 15:30 Propofol 100 ml @ 0 mls/hr CONT PRN IV PER PROTOCOL Last administered on 14:35; Start 09/21/17 at 16:45; Stop 09/30/17 at 09:21; Status DC Furosemide (Lasix) 20 mg 1X ONCE IVP Last administered on 09/22/17 09:41; Start 09/22/17 at 10:15; Stop 09/22/17 at 10:16; Status DC Chlorhexidine Gluconate (Peridex) 15 ml BID MM Last administered on 09/29/17 08:07; Start 09/22/17 at 21:00; Stop 09/29/17 at 20:22; Status DC Furosemide (Lasix) 20 mg 1X ONCE IVP Last administered on 09/22/17 17:55; Start 09/22/17 at 18:00; Stop 09/22/17 at 18:01; Status DC Furosemide (Lasix) 20 mg DAILY IVP Last administered on 09/23/17 13:16; Start 09/23/17 at 11:30; Stop 09/24/17 at 08:40; Status DC Methylprednisolone Sodium Succinate (SOLU-Medrol 125MG VIAL) 80 mg Q8HRS IV Last administered on 09/30/17 05:47; Start 09/23/17 at 14:00; Stop 09/30/17 at 09:26; Status DC Fentanyl Citrate 55 ml @ 0 mls/hr CONT PRN PRN IV PER PROTOCOL Last administered on 09/28/17 19:13; Start 09/23/17 at 12:15; Stop 09/30/17 at 09 :21; Status DC Dextrose 1,000 ml @ 25 mls/hr Q24H IV Last administered on 09/28/17 12:59; Start 09/23/17 at 11:45; Stop 10/04/17 at 13:14; Status DC Enoxaparin Sodium (Lovenox Per Pharmacy Prophylaxis Dosing) 1 each PRN DAILY PRN MC SEE COMMENTS; Start 09/23/17 at 16:30; Stop 09/24/17 at 08:41; Status DC Enoxaparin Sodium (Lovenox 40mg Syringe) 40 mg Q24H SQ Last administered on 17:27; Start 09/23/17 at 17:00 Bisacodyl (Dulcolax Tab) 5 mg PRN DAILY PRN PO CONSTIPATION; Start 09/24/17 at 09:30 Insulin Aspart (NovoLOG) 0-5 UNITS Q6HRS SQ Last administered on 09/29/17 12: 27; Start 09/25/17 at 18:00; Stop 10/01/17 at 02:54; Status DC Dextrose (Dextrose 50%-Water Syringe) 12.5 gm PRN Q15MIN PRN IV SEE COMMENTS; Start 09/25/17 at 12:30; Stop 10/01/17 at 02:54; Status DC Dextrose/Sodium Chloride 1,000 ml @ 75 mls/hr [id number] IV Last administered on 10/02/17 01:23; Start 09/29/17 at 19:00; Stop 10/02/17 at 09:07; Status DC Ondansetron HCl (Zofran) 4 mg PRN Q6HRS PRN IV NAUSEA/VOMITING Last administered on 10/01/17 20:33; Start 09/29/17 at 20:00 Albuterol/ Ipratropium (Duoneb) 3 ml TID NEB Last administered on 10/05/17 07: 52; Start 09/30/17 at 14:00 Methylprednisolone Sodium Succinate (SOLU-Medrol 125MG VIAL) 80 mg Q12HR IV Last administered on 10/01/17 08:56; Start 09/30/17 at 21:00; Stop 10/01/17 at 10:22; Status DC Iron Sucrose 500 mg/Sodium Chloride 275 ml @ 78.571 mls/ hr 1X ONCE IV Last administered on 10/01/17 10:08; Start 10/01/17 at 09:30; Stop 10/01/17 at 12 :59; Status DC Methylprednisolone Sodium Succinate (SOLU-Medrol 40MG VIAL) 40 mg Q12HR IV ; Start 10/01/17 at 21:00; Stop 10/01/17 at 21:00; Status DC Alprazolam (Xanax) 0.25 mg PRN Q8HRS PRN PO ANXIETY / AGITATION Last administered on 10/04/17 21:09; Start 10/01/17 at 10:30 Quetiapine Fumarate (SEROquel) 50 mg HS PO Last administered on 10/04/17 21: 09; Start 10/01/17 at 21:00 Methylprednisolone Sodium Succinate (SOLU-Medrol 40MG VIAL) 40 mg QHS IV Last administered on 10/01/17 20:32; Start 10/01/17 at 21:00; Stop 10/02/17 at 10 :36; Status DC Saliva Substitute (Biotene Moisturizing Mouth) 2 spray PRN Q15MIN PRN PO DRY MOUTH; Start 10/02/17 at 09:15 Info 1 each PRN DAILY PRN MC SEE COMMENTS Last administered on 10/04/17 13:28 ; Start 10/02/17 at 09:15 Amino Acids/ Glycerin/ Electrolytes 1,000 ml @ 100 mls/hr Q10H IV Last administered on 10/02/17 09:57; Start 10/02/17 at 10:00; Stop 10/02/17 at 19 :59; Status DC Methylprednisolone Sodium Succinate (SOLU-Medrol 40MG VIAL) 20 mg QHS IV Last administered on 10/02/17 21:38; Start 10/02/17 at 21:00; Stop 10/03/17 at 12 :46; Status DC Sodium Acetate 40 meq/Potassium Chloride 50 meq/ Potassium Phosphate 13.6 mmol/ Magnesium Sulfate 10 meq/ Calcium Gluconate 10 meq/ Multivitamins 10 ml/Chromium / Copper/Manganese/ Seleni/Zn 1 ml/ Total Parenteral Nutrition/Amino Acids/ Dextrose/ Fat Emulsion Intravenous 1,512 ml @ 63 mls/hr TPN CONT IV Last administered on 10/02/17 21:37; Start 10/02/17 at 22:00; Stop 10/03/17 at 21 :59; Status DC Morphine Sulfate 2 mg PRN Q2HR PRN IV SEVERE PAIN Last administered on 01:33; Start 10/03/17 at 06:00 Lorazepam (Ativan) 1 mg PRN Q4HRS PRN IV ANXIETY / AGITATION Last administered on 10/04/17 01:15; Start 10/03/17 at 06:00 Potassium Phosphate 13.6 mmol/Sodium Chloride 104.5333 ml @ 52.267 m... Q2H IV Last administered on 10/03/17 17:28; Start 10/03/17 at 12:00; Stop at 15:59; Status DC Potassium Acetate 70 meq/Potassium Phosphate 13.6 mmol/Magnesium Sulfate 10 meq / Calcium Gluconate 10 meq/ Multivitamins 10 ml/Chromium/ Copper/Manganese/ Seleni/Zn 1 ml/ Total Parenteral Nutrition/Amino Acids/Dextrose/ Fat Emulsion Intravenous 1,992 ml @ 83 mls/hr TPN CONT IV Last administered on 10/03/17 22:00; Start 10/03/17 at 22:00; Stop 10/04/17 at 21:59; Status DC Vitamin A/Vitamin D (Vitamin A & D Ointment) 1 joe PRN BID PRN TP SKIN PROTECTION Last administered on 10/04/17 01:28; Start 10/03/17 at 14:00 Pantoprazole Sodium (Protonix) 40 mg DAILYAC PO Last administered on 10/05/17 09:26; Start 10/05/17 at 07:30 Simethicone (Gas-X) 80 mg PRN AFTMEALHC PRN PO GAS / BLOATING Last administered on 10/04/17 21:09; Start 10/04/17 at 09:00 Polyethylene Glycol (miraLAX PACKET) 17 gm PRN DAILY PRN PO CONSTIPATION; Start 10/04/17 at 09:00 Potassium Acetate 70 meq/Potassium Phosphate 13.6 mmol/Magnesium Sulfate 10 meq / Calcium Gluconate 10 meq/ Multivitamins 10 ml/Chromium/ Copper/Manganese/ Seleni/Zn 1 ml/ Total Parenteral Nutrition/Amino Acids/Dextrose/ Fat Emulsion Intravenous 1,992 ml @ 83 mls/hr TPN CONT IV Last administered on 10/05/17 00:02; Start 10/04/17 at 22:00; Stop 10/05/17 at 21:59 Iohexol (Omnipaque 300 Mg/ml) 75 ml 1X ONCE IV Last administered on 16:25; Start 10/04/17 at 15:30; Stop 10/04/17 at 15:31; Status DC Info (Do NOT chart on this entry -- for MONITORING) 1 each PRN DAILY PRN MC SEE COMMENTS; Start 10/04/17 at 15:45; Stop 10/06/17 at 15:44 Loperamide HCl (Imodium) 2 mg PRN Q1HR PRN PEG DIARRHEA Last administered on 09:27; Start 10/05/17 at 07:00 Furosemide (Lasix) 20 mg DAILY PO Last administered on 10/05/17 09:27; Start 10/05/17 at 09:00 Active Scripts Active Reported Gabapentin 300 Mg Capsule 300 Mg PO TID Cymbalta (Duloxetine Hcl) 60 Mg Capsule. 1 Cap PO BID Hydrochlorothiazide Tablet (Hydrochlorothiazide) 25 Mg Tablet 1 Tab PO DAILY Xanax (Alprazolam) 1 Mg Tablet 1 Tab PO TID PRN Vitals/I & O Vital Sign - Last 24 Hours 10/04/17 10/04/17 10/04/17 10/04/17 10:55 12:32 12:51 14:00 Temp 98.4 98.4 Pulse 81 Resp 17 B/P (MAP) 136/74 (94) Pulse Ox 99 97 O2 Delivery Room Air Room Air Room Air Room Air 10/04/17 10/04/17 10/04/17 10/04/17 14:48 19:00 19:11 20:00 Temp 97.8 98.1 97.8 98.1 Pulse 93 99 Resp 17 26 B/P (MAP) 118/66 (83) 116/59 (78) Pulse Ox 99 99 O2 Delivery Room Air Room Air Room Air Room Air 10/04/17 10/04/17 10/04/17 10/05/17 21:10 21:40 23:35 01:33 Temp 98.0 98.0 Pulse 90 Resp 18 20 B/P (MAP) 129/79 (96) Pulse Ox 99 98 98 O2 Delivery Room Air Room Air Room Air 10/05/17 10/05/17 10/05/17 10/05/17 02:03 03:28 07:00 07:52 Temp 98.1 97.5 98.1 97.5 Pulse 83 103 Resp 20 20 B/P (MAP) 139/70 (93) 147/105 (119) Pulse Ox 98 98 95 99 O2 Delivery Room Air Room Air Room Air Room Air Intake and Output 10/04/17 10/04/17 10/05/17 15:00 23:00 07:00 Intake Total 300 ml 270 ml Output Total 854 ml 1227 ml Balance -554 ml -957 ml YELITZA MARROQUIN MD Oct 05, 2017 09:44
[2017-10-05 11:00] VITALS: BP 147/86
--- NOTE | 2017-10-05 11:42 | PDOC ---
PROGRESS NOTES Assessment Problems Medical Problems: (1) Dyspnea Status: Acute (2) Hypoalbuminemia Status: Acute (3) Metabolic acidosis Status: Acute (4) Pneumonia Status: Acute Metabolic encephalopathy related to critical illness, continues improving Critical illness neuropathy and myopathy Elevated ESR resolved Plan No need for further testing Inpatient rehab Discussed with patient and Subjective Abdominal pain is better Objective Vital Signs Date Time Temp Pulse Resp B/P (MAP) Pulse Ox O2 Delivery O2 Flow Rate FiO2 10/05/17 11:00 97.6 91 20 147/86 (106) 99 Room Air 97.6 Intake and Output 10/05/17 07:00 Intake Total 570 ml Output Total 2081 ml Balance -1511 ml Intake Oral 570 ml Output Urine Total 2075 ml Stool Total 6 ml # Bowel Movements 2 PHYSICAL EXAM Alert. Oriented to person, month, year, location PERRL. EOMI. CN: no focal findings. Muscle tone: normal. Muscle strength: 4/5 DTR: 1+ Plantar reflex: Flexor Gait: not examined in bed. Sensory exam: no abnormal findings. No cerebellar signs elicited. Review of Relevant I have reviewed the following items tha (where applicable) has been applied. Labs Laboratory Tests Test 10/04/17 05:15 10/05/17 05:00 10/05/17 08:00 White Blood Count 17.3 x10^3/uL (4.0-11.0) 15.1 x10^3/uL (4.0-11.0) Red Blood Count 2.96 x10^6/uL (3.50-5.40) 2.59 x10^6/uL (3.50-5.40) Hemoglobin 8.2 g/dL (12.0-15.5) 7.4 g/dL (12.0-15.5) Hematocrit 26.7 % (36.0-47.0) 23.3 % (36.0-47.0) Mean Corpuscular Volume 90 fL (79-100) 90 fL (79-100) Mean Corpuscular Hemoglobin 28 pg (25-35) 29 pg (25-35) Mean Corpuscular Hemoglobin Concent 31 g/dL (31-37) 32 g/dL (31-37) Red Cell Distribution Width 23.5 % (11.5-14.5) 24.2 % (11.5-14.5) Platelet Count 304 x10^3/uL (140-400) 296 x10^3/uL (140-400) Erythrocyte Sedimentation Rate 20 (0-25) Sodium Level 146 mmol/L (136-145) 143 mmol/L (136-145) Potassium Level 4.0 mmol/L (3.5-5.1) 4.2 mmol/L (3.5-5.1) Chloride Level 119 mmol/L (98-107) 116 mmol/L (98-107) Carbon Dioxide Level 19 mmol/L (21-32) 17 mmol/L (21-32) Anion Gap 8 (6-14) 10 (6-14) Blood Urea Nitrogen 35 mg/dL (7-20) 28 mg/dL (7-20) Creatinine 0.6 mg/dL (0.6-1.0) 0.6 mg/dL (0.6-1.0) Estimated GFR (Cockcroft-Gault) 102.0 102.0 Glucose Level 111 mg/dL (70-99) 101 mg/dL (70-99) Calcium Level 7.8 mg/dL (8.5-10.1) 8.1 mg/dL (8.5-10.1) Phosphorus Level 2.8 mg/dL (2.6-4.7) 2.6 mg/dL (2.6-4.7) Magnesium Level 1.9 mg/dL (1.8-2.4) 2.0 mg/dL (1.8-2.4) Neutrophils (%) (Auto) 81 % (31-73) Lymphocytes (%) (Auto) 7 % (24-48) Monocytes (%) (Auto) 6 % (0-9) Eosinophils (%) (Auto) 7 % (0-3) Basophils (%) (Auto) 0 % (0-3) Neutrophils # (Auto) 12.2 x10^3uL (1.8-7.7) Lymphocytes # (Auto) 1.0 x10^3/uL (1.0-4.8) Monocytes # (Auto) 0.8 x10^3/uL (0.0-1.1) Eosinophils # (Auto) 1.0 x10^3/uL (0.0-0.7) Basophils # (Auto) 0.1 x10^3/uL (0.0-0.2) BUN/Creatinine Ratio 47 (6-20) Total Bilirubin 0.4 mg/dL (0.2-1.0) Aspartate Amino Transf (AST/SGOT) 17 U/L (15-37) Alanine Aminotransferase (ALT/SGPT) 31 U/L (14-59) Alkaline Phosphatase 42 U/L (46-116) Total Protein 4.4 g/dL (6.4-8.2) Albumin 1.9 g/dL (3.4-5.0) Albumin/Globulin Ratio 0.8 (1.0-1.7) Triglycerides Level 86 mg/dL (0-150) Cholesterol Level 88 mg/dL (0-200) LDL Cholesterol, Calculated 38 mg/dL (0-100) VLDL Cholesterol, Calculated 17 mg/dL (0-40) Non-HDL Cholesterol Calculated 55 mg/dL (0-129) HDL Cholesterol 33 mg/dL (40-60) Cholesterol/HDL Ratio 2.7 Lactic Acid Level 1.0 mmol/L (0.4-2.0) Laboratory Tests Test 10/05/17 05:00 10/05/17 08:00 White Blood Count 15.1 x10^3/uL (4.0-11.0) Red Blood Count 2.59 x10^6/uL (3.50-5.40) Hemoglobin 7.4 g/dL (12.0-15.5) Hematocrit 23.3 % (36.0-47.0) Mean Corpuscular Volume 90 fL (79-100) Mean Corpuscular Hemoglobin 29 pg (25-35) Mean Corpuscular Hemoglobin Concent 32 g/dL (31-37) Red Cell Distribution Width 24.2 % (11.5-14.5) Platelet Count 296 x10^3/uL (140-400) Neutrophils (%) (Auto) 81 % (31-73) Lymphocytes (%) (Auto) 7 % (24-48) Monocytes (%) (Auto) 6 % (0-9) Eosinophils (%) (Auto) 7 % (0-3) Basophils (%) (Auto) 0 % (0-3) Neutrophils # (Auto) 12.2 x10^3uL (1.8-7.7) Lymphocytes # (Auto) 1.0 x10^3/uL (1.0-4.8) Monocytes # (Auto) 0.8 x10^3/uL (0.0-1.1) Eosinophils # (Auto) 1.0 x10^3/uL (0.0-0.7) Basophils # (Auto) 0.1 x10^3/uL (0.0-0.2) Sodium Level 143 mmol/L (136-145) Potassium Level 4.2 mmol/L (3.5-5.1) Chloride Level 116 mmol/L (98-107) Carbon Dioxide Level 17 mmol/L (21-32) Anion Gap 10 (6-14) Blood Urea Nitrogen 28 mg/dL (7-20) Creatinine 0.6 mg/dL (0.6-1.0) Estimated GFR (Cockcroft-Gault) 102.0 BUN/Creatinine Ratio 47 (6-20) Glucose Level 101 mg/dL (70-99) Calcium Level 8.1 mg/dL (8.5-10.1) Phosphorus Level 2.6 mg/dL (2.6-4.7) Magnesium Level 2.0 mg/dL (1.8-2.4) Total Bilirubin 0.4 mg/dL (0.2-1.0) Aspartate Amino Transf (AST/SGOT) 17 U/L (15-37) Alanine Aminotransferase (ALT/SGPT) 31 U/L (14-59) Alkaline Phosphatase 42 U/L (46-116) Total Protein 4.4 g/dL (6.4-8.2) Albumin 1.9 g/dL (3.4-5.0) Albumin/Globulin Ratio 0.8 (1.0-1.7) Triglycerides Level 86 mg/dL (0-150) Cholesterol Level 88 mg/dL (0-200) LDL Cholesterol, Calculated 38 mg/dL (0-100) VLDL Cholesterol, Calculated 17 mg/dL (0-40) Non-HDL Cholesterol Calculated 55 mg/dL (0-129) HDL Cholesterol 33 mg/dL (40-60) Cholesterol/HDL Ratio 2.7 Lactic Acid Level 1.0 mmol/L (0.4-2.0) Microbiology 09/17/17 Blood Culture - Final, Complete NO GROWTH AFTER 5 DAYS 09/20/17 AFB Specimen Processing Tissue - Final, Resulted 09/20/17 Acid Fast Bacilli Culture, Resulted Pending 09/20/17 Gram Stain - Final, Resulted 09/20/17 Fungal Culture - Preliminary, Resulted 09/20/17 Fungal Culture Result 1 - Preliminary, Resulted Medications Current Medications Sodium Chloride 1,000 ml @ 125 mls/hr 1X ONCE IV Last administered on 15:54; Start 09/17/17 at 15:15; Stop 09/17/17 at 23:14; Status DC Ondansetron HCl (Zofran) 4 mg PRN Q8HRS PRN IV NAUSEA/VOMITING; Start at 16:30; Stop 09/18/17 at 16:29; Status DC Ceftriaxone Sodium 50 ml @ 0 mls/hr 1X ONCE IV Last administered on 17:33; Start 09/17/17 at 16:45; Stop 09/17/17 at 16:46; Status DC Azithromycin 250 ml @ 250 mls/hr 1X ONCE IV Last administered on 09/17/17 22:38; Start 09/17/17 at 16:30; Stop 09/17/17 at 17:29; Status DC Albuterol/ Ipratropium (Duoneb) 3 ml 1X ONCE NEB Last administered on 17:00; Start 09/17/17 at 16:45; Stop 09/17/17 at 16:46; Status DC Potassium Chloride (Klor-Con) 40 meq 1X ONCE PO Last administered on 16:57; Start 09/17/17 at 16:45; Stop 09/17/17 at 16:46; Status DC Azithromycin (Zithromax) 250 mg DAILY PO Last administered on 09/18/17 10:25 ; Start 09/18/17 at 09:00; Stop 09/19/17 at 10:30; Status DC Ceftriaxone Sodium 1 gm/ Dextrose 50 ml @ 100 mls/hr Q24H IV ; Start 09/17/17 at 17:15; Status UNV Albuterol/ Ipratropium (Duoneb) 3 ml Q4HRS NEB Last administered on 09/30/17 08:11; Start 09/17/17 at 20:00; Stop 09/30/17 at 09:21; Status DC Ceftriaxone Sodium (Rocephin) 1 gm Q24H IVP Last administered on 09/18/17 17: 55; Start 09/18/17 at 16:00; Stop 09/19/17 at 10:30; Status DC Guaifenesin (Robitussin Dm) 10 ml PRN Q6HRS PRN PO COUGH; Start 09/17/17 at 17 :15; Stop 09/30/17 at 09:21; Status DC Sodium Chloride 1,000 ml @ 125 mls/hr 1X ONCE IV Last administered on 17:45; Start 09/17/17 at 17:15; Stop 09/17/17 at 22:12; Status DC Info (Do NOT chart on this placeholder) 1 each 1X ONCE MC ; Start 09/17/17 at 19:00; Stop 09/17/17 at 19:01; Status UNV Influenza Virus Vaccine Quadrival (Fluarix Quad [id number] Syringe) 0.5 ml ONCE ONCE VAX IM Last administered on 09/17/17 21:00; Start 09/17/17 at 21:00; Stop 09/17/17 at 21:01; Status DC Sodium Chloride 1,000 ml @ 130 mls/hr 1X ONCE IV Last administered on 22:31; Start 09/17/17 at 22:30; Stop 09/18/17 at 06:11; Status DC Sodium Bicarbonate 50 meq 1X ONCE IV Last administered on 09/17/17 22:31; Start 09/17/17 at 22:30; Stop 09/17/17 at 22:31; Status DC Alprazolam (Xanax) 1 mg PRN TID PRN PO ANXIETY Last administered on 09/19/17 02:19; Start 09/17/17 at 22:30; Stop 09/30/17 at 09:21; Status DC Furosemide (Lasix) 20 mg 1X ONCE IVP Last administered on 09/18/17 06:24; Start 09/18/17 at 06:30; Stop 09/18/17 at 06:31; Status DC Potassium Chloride (Klor-Con) 40 meq 1X ONCE PO Last administered on 10:25; Start 09/18/17 at 09:00; Stop 09/18/17 at 09:01; Status DC Iron Sucrose 500 mg/Sodium Chloride 275 ml @ 78.571 mls/ hr 1X ONCE IV Last administered on 09/18/17 10:24; Start 09/18/17 at 09:00; Stop 09/18/17 at 12 :29; Status DC Furosemide (Lasix) 20 mg 1X ONCE IVP Last administered on 09/18/17 10:30; Start 09/18/17 at 10:00; Stop 09/18/17 at 10:22; Status DC Pantoprazole Sodium (Protonix) 40 mg DAILYAC PO Last administered on 10:47; Start 09/18/17 at 11:00; Stop 09/19/17 at 13:41; Status DC Furosemide (Lasix) 20 mg 1X ONCE IVP Last administered on 09/18/17 10:47; Start 09/18/17 at 10:45; Stop 09/18/17 at 10:46; Status DC Potassium Chloride (Klor-Con) 40 meq 1X ONCE PO ; Start 09/18/17 at 11:45; Stop 09/18/17 at 11:46; Status DC Oxycodone/ Acetaminophen (Percocet 5/325) 1 tab PRN Q6HRS PRN PO PAIN Last administered on 10/04/17 12:51; Start 09/18/17 at 12:15 Lorazepam (Ativan) 1 mg PRN Q4HRS PRN IV ANXIETY / AGITATION Last administered on 09/18/17 12:25; Start 09/18/17 at 12:15; Stop 09/18/17 at 13:34; Status DC Fentanyl Citrate (Fentanyl 2ml Vial) 50 mcg PRN Q2HR PRN IV PAIN Last administered on 09/19/17 04:09; Start 09/18/17 at 12:15; Stop 09/30/17 at 09 :21; Status DC Lorazepam (Ativan) 2 mg PRN Q4HRS PRN IV ANXIETY / AGITATION Last administered on 09/29/17 05:17; Start 09/18/17 at 13:30; Stop 09/30/17 at 09:21; Status DC Quetiapine Fumarate (SEROquel) 25 mg HS PO Last administered on 09/18/17 21: 03; Start 09/18/17 at 21:00; Stop 09/19/17 at 10:35; Status DC Haloperidol Lactate (Haldol) 5 mg PRN Q12HRS PRN IVP AGITATION; Start at 13:45 Lorazepam (Ativan) 1 mg PRN Q4HRS PRN IV ANXIETY / AGITATION; Start 09/19/17 at 10:15; Stop 09/19/17 at 10:18; Status DC Lorazepam (Ativan) 4 mg 1X ONCE IV ; Start 09/19/17 at 10:30; Stop 09/19/17 at 10:31; Status DC Vancomycin HCl (Vanco Per Pharmacy) 1 each PRN DAILY PRN MC SEE COMMENTS Last administered on 09/23/17 12:36; Start 09/19/17 at 10:30; Stop 09/24/17 at 08 :36; Status DC Piperacillin Sod/ Tazobactam Sod (Zosyn Per Pharmacy) 1 each PRN DAILY PRN MC SEE COMMENTS; Start 09/19/17 at 10:30; Stop 09/24/17 at 08:41; Status DC Vancomycin HCl 2 gm/Dextrose 500 ml @ 250 mls/hr 1X ONCE IV Last administered on 09/19/17 14:53; Start 09/19/17 at 11:00; Stop 09/19/17 at 12 :59; Status DC Piperacillin Sod/ Tazobactam Sod (Zosyn) 3.375 gm Q6HRS IVP Last administered on 10/02/17 17:13; Start 09/19/17 at 11:00; Stop 10/02/17 at 19:14; Status DC Budesonide (Pulmicort) 0.5 mg RTBID NEB Last administered on 10/05/17 07:52; Start 09/19/17 at 20:00 Budesonide (Pulmicort) 0.5 mg 1X ONCE NEB Last administered on 09/19/17 12: 50; Start 09/19/17 at 10:45; Stop 09/19/17 at 10:46; Status DC Pantoprazole Sodium (PROTONIX VIAL for IV PUSH) 40 mg DAILYAC IVP Last administered on 10/03/17 08:23; Start 09/19/17 at 11:30; Stop 10/04/17 at 08 :51; Status DC Furosemide (Lasix) 40 mg DAILY IVP ; Start 09/19/17 at 11:00; Stop 09/20/17 at 13:20; Status DC Methylprednisolone Sodium Succinate (SOLU-Medrol 125MG VIAL) 125 mg 1X ONCE IV Last administered on 09/19/17t 13:23; Start 09/19/17 at 10:45; Stop at 10:46; Status DC Prednisone (Prednisone) 40 mg DAILY PO ; Start 09/19/17 at 11:00; Stop at 09:02; Status DC Methylprednisolone Sodium Succinate (SOLU-Medrol 125MG VIAL) 125 mg Q8HRS IV Last administered on 09/23/17t 05:43; Start 09/19/17 at 14:00; Stop 09/23/17 at 10:40; Status DC Midazolam HCl 100 ml @ 0 mls/hr CONT PRN IV SEE I/O RECORD; Start 09/19/17 at 11:00; Stop 09/19/17 at 12:51; Status DC Midazolam HCl (Versed) 5 mg 1X ONCE IV ; Start 09/19/17 at 11:00; Stop at 11:01; Status DC Fentanyl Citrate (Fentanyl 2ml Vial) 50 mcg 1X ONCE IV ; Start 09/19/17 at 11: 00; Stop 09/19/17 at 11:01; Status DC Midazolam HCl 100 ml @ As Directed STK-MED ONCE IV ; Start 09/19/17 at 10:55; Stop 09/19/17 at 10:56; Status DC Midazolam HCl (Versed) 5 mg STK-MED ONCE .ROUTE ; Start 09/19/17 at 10:55; Stop 09/19/17 at 10:56; Status DC Propofol 100 ml @ As Directed STK-MED ONCE IV ; Start 09/19/17 at 10:59; Stop 09/19/17 at 11:00; Status DC Norepinephrine Bitartrate 250 ml @ As Directed STK-MED ONCE IV ; Start at 10:59; Stop 09/19/17 at 11:00; Status DC Furosemide (Lasix) 20 mg 1X ONCE IVP ; Start 09/19/17 at 11:15; Stop at 11:16; Status DC Vecuronium [place] (Norcuron Bolus) 10 mg STK-MED ONCE IV ; Start 09/19/17 at 11:21; Stop 09/19/17 at 11:22; Status DC Fentanyl Citrate 30 ml @ 0 mls/hr CONT PRN IV PROTOCOL Last administered on 15:08; Start 09/19/17 at 11:30; Stop 09/23/17 at 15:24; Status DC Vecuronium [place] (Norcuron Bolus) 6 mg 1X ONCE IV Last administered on 09/19 11:42; Start 09/19/17 at 11:30; Stop 09/19/17 at 11:39; Status DC Propofol 10 ml @ 0 mls/hr 1X ONCE IV Last administered on 09/19/17 11:30; Start 09/19/17 at 11:30; Stop 09/19/17 at 11:39; Status DC Midazolam HCl 100 ml @ 0 mls/hr CONT PRN IV SEE I/O RECORD Last administered on 09/27/17 00:40; Start 09/19/17 at 11:30; Stop 09/30/17 at 09:21; Status DC Norepinephrine Bitartrate 250 ml @ 0 mls/hr CONT PRN IV SEE I/O RECORD Last administered on 09/24/17 05:18; Start 09/19/17 at 11:30; Stop 09/30/17 at 09 :21; Status DC Succinylcholine Chloride (Anectine) 100 mg 1X ONCE IV Last administered on 11:42; Start 09/19/17 at 11:30; Stop 09/19/17 at 11:39; Status DC Sodium Bicarbonate 50 meq 1X ONCE IV Last administered on 09/19/17 13:23; Start 09/19/17 at 12:45; Stop 09/19/17 at 12:46; Status DC Sodium Bicarbonate 50 meq 1X ONCE IV Last administered on 09/19/17 13:23; Start 09/19/17 at 12:45; Stop 09/19/17 at 12:46; Status DC Lidocaine/Sodium Bicarbonate (Buffered Lidocaine 1%) 20 ml STK-MED ONCE IJ ; Start 09/19/17 at 13:34; Stop 09/19/17 at 13:35; Status DC Vecuronium [place] (Norcuron Bolus) 10 mg 1X ONCE IV Last administered on 15:05; Start 09/19/17 at 14:00; Stop 09/19/17 at 14:02; Status DC Lidocaine/Sodium Bicarbonate (Buffered Lidocaine 1%) 3 ml 1X ONCE IJ ; Start 09/19/17 at 14:45; Stop 09/19/17 at 14:46; Status DC Vancomycin HCl 1.25 gm/Dextrose 250 ml @ 166.667 mls/hr Q24H IV Last administered on 09/23/17 17:19; Start 09/20/17 at 15:00; Stop 09/24/17 at 08 :35; Status DC Vancomycin HCl 1 each 1X ONCE MC Last administered on 09/21/17 14:30; Start 09/21/17 at 14:30; Stop 09/21/17 at 14:31; Status DC Azithromycin 500 mg/Sodium Chloride 250 ml @ 250 mls/hr Q24H IV Last administered on 09/23/17 17:19; Start 09/19/17 at 16:30; Stop 09/24/17 at 08 :35; Status DC Norepinephrine Bitartrate (Levophed 8mg/ 250ml Premix Drip) 8 mg STK-MED ONCE IV ; Start 09/19/17 at 11:00; Stop 09/20/17 at 08:44; Status DC Midazolam HCl (Versed) 5 mg STK-MED ONCE .ROUTE ; Start 09/19/17 at 11:00; Stop 09/20/17 at 08:44; Status DC Amino Acids/ Glycerin/ Electrolytes 1,000 ml @ 80 mls/hr [id number] IV Last administered on 09/21/17 01:21; Start 09/20/17 at 10:00; Stop 09/22/17 at 07 :02; Status DC Info 1 each PRN DAILY PRN MC SEE COMMENTS; Start 09/20/17 at 10:00; Stop at 12:14; Status DC Furosemide (Lasix) 20 mg 1X ONCE IVP Last administered on 09/20/17 10:21; Start 09/20/17 at 10:15; Stop 09/20/17 at 10:18; Status DC Info 1 each PRN DAILY PRN MC SEE COMMENTS; Start 09/20/17 at 11:00; Status UNV Vecuronium [place] (Norcuron Bolus) 10 mg 1X ONCE IV Last administered on 12:03; Start 09/20/17 at 11:15; Stop 09/20/17 at 11:24; Status DC Atropine Sulfate 0.5 mg STK-MED ONCE .ROUTE ; Start 09/20/17 at 11:47; Stop at 11:48; Status DC Epinephrine HCl (EPINEPHrine SYRINGE) 1 mg STK-MED ONCE .ROUTE ; Start at 11:47; Stop 09/20/17 at 11:48; Status DC Atropine Sulfate 0.5 mg STK-MED ONCE .ROUTE ; Start 09/20/17 at 12:00; Stop at 09:11; Status DC Epinephrine HCl (EPINEPHrine SYRINGE) 1 mg STK-MED ONCE .ROUTE ; Start at 12:00; Stop 09/21/17 at 09:11; Status DC Furosemide (Lasix) 20 mg DAILY IVP ; Start 09/21/17 at 11:15; Stop 09/21/17 at 11:20; Status DC Lorazepam (Ativan) 1 mg PRN Q1HR PRN IV ANXIETY / AGITATION Last administered on 09/28/17 17:04; Start 09/21/17 at 11:15; Stop 09/30/17 at 09:21; Status DC Albumin Human 250 ml @ 62.5 mls/hr 1X ONCE IV Last administered on 11:57; Start 09/21/17 at 11:30; Stop 09/21/17 at 15:29; Status DC Albumin Human 250 ml @ 62.5 mls/hr 1X ONCE IV Last administered on 14:29; Start 09/21/17 at 11:30; Stop 09/21/17 at 15:29; Status DC Micafungin Sodium 100 mg/Dextrose 100 ml @ 100 mls/hr Q24H IV Last administered on 09/23/17 13:17; Start 09/21/17 at 12:00; Stop 09/24/17 at 08 :35; Status DC Vecuronium [place] (Norcuron Bolus) 4 mg PRN Q4HRS PRN IV AGITATION; Start at 15:00; Stop 09/30/17 at 09:21; Status DC Dexmedetomidine HCl 200 mcg/ Sodium Chloride 50 ml @ 0 mls/hr CONT PRN IV PER PROTOCOL Last administered on 09/21/17 15:54; Start 09/21/17 at 15:30; Stop 09/30/17 at 09:21; Status DC Sodium Chloride 500 ml @ 500 mls/hr 1X PRN PRN IV SEE COMMENTS; Start at 15:30 Atropine Sulfate 0.5 mg PRN Q5MIN PRN IV SEE COMMENTS; Start 09/21/17 at 15:30 Propofol 100 ml @ 0 mls/hr CONT PRN IV PER PROTOCOL Last administered on 14:35; Start 09/21/17 at 16:45; Stop 09/30/17 at 09:21; Status DC Furosemide (Lasix) 20 mg 1X ONCE IVP Last administered on 09/22/17 09:41; Start 09/22/17 at 10:15; Stop 09/22/17 at 10:16; Status DC Chlorhexidine Gluconate (Peridex) 15 ml BID MM Last administered on 09/29/17 08:07; Start 09/22/17 at 21:00; Stop 09/29/17 at 20:22; Status DC Furosemide (Lasix) 20 mg 1X ONCE IVP Last administered on 09/22/17 17:55; Start 09/22/17 at 18:00; Stop 09/22/17 at 18:01; Status DC Furosemide (Lasix) 20 mg DAILY IVP Last administered on 09/23/17 13:16; Start 09/23/17 at 11:30; Stop 09/24/17 at 08:40; Status DC Methylprednisolone Sodium Succinate (SOLU-Medrol 125MG VIAL) 80 mg Q8HRS IV Last administered on 09/30/17 05:47; Start 09/23/17 at 14:00; Stop 09/30/17 at 09:26; Status DC Fentanyl Citrate 55 ml @ 0 mls/hr CONT PRN PRN IV PER PROTOCOL Last administered on 09/28/17 19:13; Start 09/23/17 at 12:15; Stop 09/30/17 at 09 :21; Status DC Dextrose 1,000 ml @ 25 mls/hr Q24H IV Last administered on 09/28/17 12:59; Start 09/23/17 at 11:45; Stop 10/04/17 at 13:14; Status DC Enoxaparin Sodium (Lovenox Per Pharmacy Prophylaxis Dosing) 1 each PRN DAILY PRN MC SEE COMMENTS; Start 09/23/17 at 16:30; Stop 09/24/17 at 08:41; Status DC Enoxaparin Sodium (Lovenox 40mg Syringe) 40 mg Q24H SQ Last administered on 17:27; Start 09/23/17 at 17:00 Bisacodyl (Dulcolax Tab) 5 mg PRN DAILY PRN PO CONSTIPATION; Start 09/24/17 at 09:30 Insulin Aspart (NovoLOG) 0-5 UNITS Q6HRS SQ Last administered on 09/29/17 12: 27; Start 09/25/17 at 18:00; Stop 10/01/17 at 02:54; Status DC Dextrose (Dextrose 50%-Water Syringe) 12.5 gm PRN Q15MIN PRN IV SEE COMMENTS; Start 09/25/17 at 12:30; Stop 10/01/17 at 02:54; Status DC Dextrose/Sodium Chloride 1,000 ml @ 75 mls/hr [id number] IV Last administered on 10/02/17 01:23; Start 09/29/17 at 19:00; Stop 10/02/17 at 09:07; Status DC Ondansetron HCl (Zofran) 4 mg PRN Q6HRS PRN IV NAUSEA/VOMITING Last administered on 10/01/17 20:33; Start 09/29/17 at 20:00 Albuterol/ Ipratropium (Duoneb) 3 ml TID NEB Last administered on 10/05/17 07: 52; Start 09/30/17 at 14:00 Methylprednisolone Sodium Succinate (SOLU-Medrol 125MG VIAL) 80 mg Q12HR IV Last administered on 10/01/17 08:56; Start 09/30/17 at 21:00; Stop 10/01/17 at 10:22; Status DC Iron Sucrose 500 mg/Sodium Chloride 275 ml @ 78.571 mls/ hr 1X ONCE IV Last administered on 10/01/17 10:08; Start 10/01/17 at 09:30; Stop 10/01/17 at 12 :59; Status DC Methylprednisolone Sodium Succinate (SOLU-Medrol 40MG VIAL) 40 mg Q12HR IV ; Start 10/01/17 at 21:00; Stop 10/01/17 at 21:00; Status DC Alprazolam (Xanax) 0.25 mg PRN Q8HRS PRN PO ANXIETY / AGITATION Last administered on 10/04/17 21:09; Start 10/01/17 at 10:30 Quetiapine Fumarate (SEROquel) 50 mg HS PO Last administered on 10/04/17 21: 09; Start 10/01/17 at 21:00 Methylprednisolone Sodium Succinate (SOLU-Medrol 40MG VIAL) 40 mg QHS IV Last administered on 10/01/17 20:32; Start 10/01/17 at 21:00; Stop 10/02/17 at 10 :36; Status DC Saliva Substitute (Biotene Moisturizing Mouth) 2 spray PRN Q15MIN PRN PO DRY MOUTH; Start 10/02/17 at 09:15 Info 1 each PRN DAILY PRN MC SEE COMMENTS Last administered on 10/04/17 13:28 ; Start 10/02/17 at 09:15 Amino Acids/ Glycerin/ Electrolytes 1,000 ml @ 100 mls/hr Q10H IV Last administered on 10/02/17 09:57; Start 10/02/17 at 10:00; Stop 10/02/17 at 19 :59; Status DC Methylprednisolone Sodium Succinate (SOLU-Medrol 40MG VIAL) 20 mg QHS IV Last administered on 10/02/17 21:38; Start 10/02/17 at 21:00; Stop 10/03/17 at 12 :46; Status DC Sodium Acetate 40 meq/Potassium Chloride 50 meq/ Potassium Phosphate 13.6 mmol/ Magnesium Sulfate 10 meq/ Calcium Gluconate 10 meq/ Multivitamins 10 ml/Chromium / Copper/Manganese/ Seleni/Zn 1 ml/ Total Parenteral Nutrition/Amino Acids/ Dextrose/ Fat Emulsion Intravenous 1,512 ml @ 63 mls/hr TPN CONT IV Last administered on 10/02/17 21:37; Start 10/02/17 at 22:00; Stop 10/03/17 at 21 :59; Status DC Morphine Sulfate 2 mg PRN Q2HR PRN IV SEVERE PAIN Last administered on 01:33; Start 10/03/17 at 06:00 Lorazepam (Ativan) 1 mg PRN Q4HRS PRN IV ANXIETY / AGITATION Last administered on 10/04/17 01:15; Start 10/03/17 at 06:00 Potassium Phosphate 13.6 mmol/Sodium Chloride 104.5333 ml @ 52.267 m... Q2H IV Last administered on 10/03/17 17:28; Start 10/03/17 at 12:00; Stop at 15:59; Status DC Potassium Acetate 70 meq/Potassium Phosphate 13.6 mmol/Magnesium Sulfate 10 meq / Calcium Gluconate 10 meq/ Multivitamins 10 ml/Chromium/ Copper/Manganese/ Seleni/Zn 1 ml/ Total Parenteral Nutrition/Amino Acids/Dextrose/ Fat Emulsion Intravenous 1,992 ml @ 83 mls/hr TPN CONT IV Last administered on 10/03/17 22:00; Start 10/03/17 at 22:00; Stop 10/04/17 at 21:59; Status DC Vitamin A/Vitamin D (Vitamin A & D Ointment) 1 joe PRN BID PRN TP SKIN PROTECTION Last administered on 10/04/17 01:28; Start 10/03/17 at 14:00 Pantoprazole Sodium (Protonix) 40 mg DAILYAC PO Last administered on 10/05/17 09:26; Start 10/05/17 at 07:30 Simethicone (Gas-X) 80 mg PRN AFTMEALHC PRN PO GAS / BLOATING Last administered on 10/04/17 21:09; Start 10/04/17 at 09:00 Polyethylene Glycol (miraLAX PACKET) 17 gm PRN DAILY PRN PO CONSTIPATION; Start 10/04/17 at 09:00 Potassium Acetate 70 meq/Potassium Phosphate 13.6 mmol/Magnesium Sulfate 10 meq / Calcium Gluconate 10 meq/ Multivitamins 10 ml/Chromium/ Copper/Manganese/ Seleni/Zn 1 ml/ Total Parenteral Nutrition/Amino Acids/Dextrose/ Fat Emulsion Intravenous 1,992 ml @ 83 mls/hr TPN CONT IV Last administered on 10/05/17 00:02; Start 10/04/17 at 22:00; Stop 10/05/17 at 21:59 Iohexol (Omnipaque 300 Mg/ml) 75 ml 1X ONCE IV Last administered on 16:25; Start 10/04/17 at 15:30; Stop 10/04/17 at 15:31; Status DC Info (Do NOT chart on this entry -- for MONITORING) 1 each PRN DAILY PRN MC SEE COMMENTS; Start 10/04/17 at 15:45; Stop 10/06/17 at 15:44 Loperamide HCl (Imodium) 2 mg PRN Q1HR PRN PEG DIARRHEA Last administered on 09:27; Start 10/05/17 at 07:00 Furosemide (Lasix) 20 mg DAILY PO Last administered on 10/05/17 09:27; Start 10/05/17 at 09:00 Active Scripts Active Reported Gabapentin 300 Mg Capsule 300 Mg PO TID Cymbalta (Duloxetine Hcl) 60 Mg Capsule. 1 Cap PO BID Hydrochlorothiazide Tablet (Hydrochlorothiazide) 25 Mg Tablet 1 Tab PO DAILY Xanax (Alprazolam) 1 Mg Tablet 1 Tab PO TID PRN Vitals/I & O Vital Sign - Last 24 Hours 10/04/17 10/04/17 10/04/17 10/04/17 12:32 12:51 14:00 14:48 Temp 97.8 97.8 Pulse 93 Resp 17 B/P (MAP) 118/66 (83) Pulse Ox 97 99 O2 Delivery Room Air Room Air Room Air Room Air 10/04/17 10/04/17 10/04/17 10/04/17 19:00 19:11 20:00 21:10 Temp 98.1 98.1 Pulse 99 Resp 26 B/P (MAP) 116/59 (78) Pulse Ox 99 99 O2 Delivery Room Air Room Air Room Air Room Air 10/04/17 10/04/17 10/05/17 10/05/17 21:40 23:35 01:33 02:03 Temp 98.0 98.0 Pulse 90 Resp 18 20 B/P (MAP) 129/79 (96) Pulse Ox 98 98 98 O2 Delivery Room Air Room Air Room Air 10/05/17 10/05/17 10/05/17 10/05/17 03:28 07:00 07:52 11:00 Temp 98.1 97.5 97.6 98.1 97.5 97.6 Pulse 83 103 91 Resp 20 20 20 B/P (MAP) 139/70 (93) 147/105 (119) 147/86 (106) Pulse Ox 98 95 99 99 O2 Delivery Room Air Room Air Room Air Room Air Intake and Output 10/04/17 10/04/17 10/05/17 15:00 23:00 07:00 Intake Total 300 ml 270 ml Output Total 854 ml 1227 ml Balance -554 ml -957 ml MOHAN DAVIS MD Oct 05, 2017 11:42
--- NOTE | 2017-10-05 11:58 | PDOC ---
PULMONARY PROGRESS NOTES Subjective EXTUBATED 09/29 IMPROVING DELIRIUM WEAK IMPROVING OFF 02 Vitals Vital Signs Date Time Temp Pulse Resp B/P (MAP) Pulse Ox O2 Delivery O2 Flow Rate FiO2 10/05/17 11:00 97.6 91 20 147/86 (106) 99 Room Air 97.6 General: Alert, Oriented X4, No acute distress Lungs: Clear Cardiovascular: S1, S2 Abdomen: Soft Neuro Exam: Alert Extremities: Other (WEAKNESS,1+EDEMA) Skin: Warm Labs Laboratory Tests Test 10/04/17 05:15 10/05/17 05:00 10/05/17 08:00 White Blood Count 17.3 x10^3/uL (4.0-11.0) 15.1 x10^3/uL (4.0-11.0) Red Blood Count 2.96 x10^6/uL (3.50-5.40) 2.59 x10^6/uL (3.50-5.40) Hemoglobin 8.2 g/dL (12.0-15.5) 7.4 g/dL (12.0-15.5) Hematocrit 26.7 % (36.0-47.0) 23.3 % (36.0-47.0) Mean Corpuscular Volume 90 fL (79-100) 90 fL (79-100) Mean Corpuscular Hemoglobin 28 pg (25-35) 29 pg (25-35) Mean Corpuscular Hemoglobin Concent 31 g/dL (31-37) 32 g/dL (31-37) Red Cell Distribution Width 23.5 % (11.5-14.5) 24.2 % (11.5-14.5) Platelet Count 304 x10^3/uL (140-400) 296 x10^3/uL (140-400) Erythrocyte Sedimentation Rate 20 (0-25) Sodium Level 146 mmol/L (136-145) 143 mmol/L (136-145) Potassium Level 4.0 mmol/L (3.5-5.1) 4.2 mmol/L (3.5-5.1) Chloride Level 119 mmol/L (98-107) 116 mmol/L (98-107) Carbon Dioxide Level 19 mmol/L (21-32) 17 mmol/L (21-32) Anion Gap 8 (6-14) 10 (6-14) Blood Urea Nitrogen 35 mg/dL (7-20) 28 mg/dL (7-20) Creatinine 0.6 mg/dL (0.6-1.0) 0.6 mg/dL (0.6-1.0) Estimated GFR (Cockcroft-Gault) 102.0 102.0 Glucose Level 111 mg/dL (70-99) 101 mg/dL (70-99) Calcium Level 7.8 mg/dL (8.5-10.1) 8.1 mg/dL (8.5-10.1) Phosphorus Level 2.8 mg/dL (2.6-4.7) 2.6 mg/dL (2.6-4.7) Magnesium Level 1.9 mg/dL (1.8-2.4) 2.0 mg/dL (1.8-2.4) Neutrophils (%) (Auto) 81 % (31-73) Lymphocytes (%) (Auto) 7 % (24-48) Monocytes (%) (Auto) 6 % (0-9) Eosinophils (%) (Auto) 7 % (0-3) Basophils (%) (Auto) 0 % (0-3) Neutrophils # (Auto) 12.2 x10^3uL (1.8-7.7) Lymphocytes # (Auto) 1.0 x10^3/uL (1.0-4.8) Monocytes # (Auto) 0.8 x10^3/uL (0.0-1.1) Eosinophils # (Auto) 1.0 x10^3/uL (0.0-0.7) Basophils # (Auto) 0.1 x10^3/uL (0.0-0.2) BUN/Creatinine Ratio 47 (6-20) Total Bilirubin 0.4 mg/dL (0.2-1.0) Aspartate Amino Transf (AST/SGOT) 17 U/L (15-37) Alanine Aminotransferase (ALT/SGPT) 31 U/L (14-59) Alkaline Phosphatase 42 U/L (46-116) Total Protein 4.4 g/dL (6.4-8.2) Albumin 1.9 g/dL (3.4-5.0) Albumin/Globulin Ratio 0.8 (1.0-1.7) Triglycerides Level 86 mg/dL (0-150) Cholesterol Level 88 mg/dL (0-200) LDL Cholesterol, Calculated 38 mg/dL (0-100) VLDL Cholesterol, Calculated 17 mg/dL (0-40) Non-HDL Cholesterol Calculated 55 mg/dL (0-129) HDL Cholesterol 33 mg/dL (40-60) Cholesterol/HDL Ratio 2.7 Lactic Acid Level 1.0 mmol/L (0.4-2.0) Laboratory Tests Test 10/05/17 05:00 10/05/17 08:00 White Blood Count 15.1 x10^3/uL (4.0-11.0) Red Blood Count 2.59 x10^6/uL (3.50-5.40) Hemoglobin 7.4 g/dL (12.0-15.5) Hematocrit 23.3 % (36.0-47.0) Mean Corpuscular Volume 90 fL (79-100) Mean Corpuscular Hemoglobin 29 pg (25-35) Mean Corpuscular Hemoglobin Concent 32 g/dL (31-37) Red Cell Distribution Width 24.2 % (11.5-14.5) Platelet Count 296 x10^3/uL (140-400) Neutrophils (%) (Auto) 81 % (31-73) Lymphocytes (%) (Auto) 7 % (24-48) Monocytes (%) (Auto) 6 % (0-9) Eosinophils (%) (Auto) 7 % (0-3) Basophils (%) (Auto) 0 % (0-3) Neutrophils # (Auto) 12.2 x10^3uL (1.8-7.7) Lymphocytes # (Auto) 1.0 x10^3/uL (1.0-4.8) Monocytes # (Auto) 0.8 x10^3/uL (0.0-1.1) Eosinophils # (Auto) 1.0 x10^3/uL (0.0-0.7) Basophils # (Auto) 0.1 x10^3/uL (0.0-0.2) Sodium Level 143 mmol/L (136-145) Potassium Level 4.2 mmol/L (3.5-5.1) Chloride Level 116 mmol/L (98-107) Carbon Dioxide Level 17 mmol/L (21-32) Anion Gap 10 (6-14) Blood Urea Nitrogen 28 mg/dL (7-20) Creatinine 0.6 mg/dL (0.6-1.0) Estimated GFR (Cockcroft-Gault) 102.0 BUN/Creatinine Ratio 47 (6-20) Glucose Level 101 mg/dL (70-99) Calcium Level 8.1 mg/dL (8.5-10.1) Phosphorus Level 2.6 mg/dL (2.6-4.7) Magnesium Level 2.0 mg/dL (1.8-2.4) Total Bilirubin 0.4 mg/dL (0.2-1.0) Aspartate Amino Transf (AST/SGOT) 17 U/L (15-37) Alanine Aminotransferase (ALT/SGPT) 31 U/L (14-59) Alkaline Phosphatase 42 U/L (46-116) Total Protein 4.4 g/dL (6.4-8.2) Albumin 1.9 g/dL (3.4-5.0) Albumin/Globulin Ratio 0.8 (1.0-1.7) Triglycerides Level 86 mg/dL (0-150) Cholesterol Level 88 mg/dL (0-200) LDL Cholesterol, Calculated 38 mg/dL (0-100) VLDL Cholesterol, Calculated 17 mg/dL (0-40) Non-HDL Cholesterol Calculated 55 mg/dL (0-129) HDL Cholesterol 33 mg/dL (40-60) Cholesterol/HDL Ratio 2.7 Lactic Acid Level 1.0 mmol/L (0.4-2.0) Medications Active Scripts Medications Dose Route/Sig Max Daily Dose Days Date Category Gabapentin 300 Mg Capsule 300 Mg PO TID 09/18/17 Reported Cymbalta (Duloxetine Hcl) 60 Mg Capsule. 1 Cap PO BID 09/18/17 Reported Hydrochlorothiazide Tablet (Hydrochlorothiazide) 25 Mg Tablet 1 Tab PO DAILY 09/17/17 Reported Xanax (Alprazolam) 1 Mg Tablet 1 Tab PO TID PRN 09/17/17 Reported Comments CXR 10/01 overall improving infiltrates Impression . 1. Acute hypoxic respiratory failure/ARDS/ S/P EXTUBATION, ON RA now 2. Anemia ongoing/ GI following, Hb drifting down 3. COPD/ compensated 4. Acute renal failure, stable 5. Sepsis with hypotension POA, resolved 6. S/P Bronch so far BAL negative 7. Critical care induced myopathy, improving strength 8. bilateral interstitial infiltrates , ? etiology, suspect viral, improved 9. medication induced delirium/ Improving 10. Anxiety disorder Plan . PRN OXYGEN SPOKE WITH AT BEDSIDE/ delirium improving SPEECH, PT/ DYSPHAGIA DIET/ TPN taper off today. d/w Dr Conley DVT PROPH / ON LOVENOX. MONITOR HB/ EGD PLANS PER GI ALL CULTURES NEGATIVE ANCA NEGATIVE OFF STEROIDS ANTIBIOTICS PER ID WILL NEED AGGRESSIVE REHAB OK WITH TRANSFER TO REHAB PULMONARY [place] JORGE LEDESMA MD Oct 05, 2017 11:58
--- NOTE | 2017-10-05 13:14 | PDOC ---
PROGRESS NOTES Chief Complaint Chief Complaint admitted Acute hypoxic respiratory failure consistent with ARDS, improving, now with post ICU delirium and myopathy weakness, anemia of acute blood loss, possibly upper gi, W/ melena Pneumonia post ICU, encephalopathy, acute, ongoing delirium Hypotension COPD - stable, Sepsis, severe, improving Leukocytosis - on steroids now and S/p PRBCs Anemia, acute on chronic, marked iron deficiency on admit, Transaminitis - GEO improved Tobaccoism Anxiety d/o H/o Leg wounds History of Present Illness History of Present Illness better oriented, but cooperative and pleasant poor po intake continues, may need calorie count Hgb trending down slowly, may neeed PRBC in AM, check type and screen plan ACUTE rehab soon pt c/o of dryness and thirst Extubated 09/30/2017 her is here 0700 this AM PT and OT, getting stronger, doing well HGb to be checked daily, acute blood loss is a worry some perineal irritation and pain, better with A+D Vitals Vitals Vital Signs Date Time Temp Pulse Resp B/P (MAP) Pulse Ox O2 Delivery O2 Flow Rate FiO2 10/05/17 12:20 Room Air 10/05/17 11:00 97.6 91 20 147/86 (106) 99 97.6 Physical Exam General: Alert, Oriented X3 Heart: Normal S1, Normal S2 Lungs: Clear Abdomen: Normal bowel sounds, Soft Extremities: No clubbing, No cyanosis, Normal pulses, Other (1+ edema) Skin: No rashes, No significant lesion Labs LABS Laboratory Tests Test 10/05/17 05:00 10/05/17 08:00 White Blood Count 15.1 x10^3/uL (4.0-11.0) Red Blood Count 2.59 x10^6/uL (3.50-5.40) Hemoglobin 7.4 g/dL (12.0-15.5) Hematocrit 23.3 % (36.0-47.0) Mean Corpuscular Volume 90 fL (79-100) Mean Corpuscular Hemoglobin 29 pg (25-35) Mean Corpuscular Hemoglobin Concent 32 g/dL (31-37) Red Cell Distribution Width 24.2 % (11.5-14.5) Platelet Count 296 x10^3/uL (140-400) Neutrophils (%) (Auto) 81 % (31-73) Lymphocytes (%) (Auto) 7 % (24-48) Monocytes (%) (Auto) 6 % (0-9) Eosinophils (%) (Auto) 7 % (0-3) Basophils (%) (Auto) 0 % (0-3) Neutrophils # (Auto) 12.2 x10^3uL (1.8-7.7) Lymphocytes # (Auto) 1.0 x10^3/uL (1.0-4.8) Monocytes # (Auto) 0.8 x10^3/uL (0.0-1.1) Eosinophils # (Auto) 1.0 x10^3/uL (0.0-0.7) Basophils # (Auto) 0.1 x10^3/uL (0.0-0.2) Sodium Level 143 mmol/L (136-145) Potassium Level 4.2 mmol/L (3.5-5.1) Chloride Level 116 mmol/L (98-107) Carbon Dioxide Level 17 mmol/L (21-32) Anion Gap 10 (6-14) Blood Urea Nitrogen 28 mg/dL (7-20) Creatinine 0.6 mg/dL (0.6-1.0) Estimated GFR (Cockcroft-Gault) 102.0 BUN/Creatinine Ratio 47 (6-20) Glucose Level 101 mg/dL (70-99) Calcium Level 8.1 mg/dL (8.5-10.1) Phosphorus Level 2.6 mg/dL (2.6-4.7) Magnesium Level 2.0 mg/dL (1.8-2.4) Total Bilirubin 0.4 mg/dL (0.2-1.0) Aspartate Amino Transf (AST/SGOT) 17 U/L (15-37) Alanine Aminotransferase (ALT/SGPT) 31 U/L (14-59) Alkaline Phosphatase 42 U/L (46-116) Total Protein 4.4 g/dL (6.4-8.2) Albumin 1.9 g/dL (3.4-5.0) Albumin/Globulin Ratio 0.8 (1.0-1.7) Triglycerides Level 86 mg/dL (0-150) Cholesterol Level 88 mg/dL (0-200) LDL Cholesterol, Calculated 38 mg/dL (0-100) VLDL Cholesterol, Calculated 17 mg/dL (0-40) Non-HDL Cholesterol Calculated 55 mg/dL (0-129) HDL Cholesterol 33 mg/dL (40-60) Cholesterol/HDL Ratio 2.7 Lactic Acid Level 1.0 mmol/L (0.4-2.0) Assessment and Plan Assessmemt and Plan Problems Medical Problems: (1) Dyspnea Status: Acute (2) Hypoalbuminemia Status: Acute (3) Metabolic acidosis Status: Acute (4) Pneumonia Status: Acute Problems: Comment Review of Relevant I have reviewed the following items tha (where applicable) has been applied. Labs Laboratory Tests Test 10/04/17 05:15 10/05/17 05:00 10/05/17 08:00 White Blood Count 17.3 x10^3/uL (4.0-11.0) 15.1 x10^3/uL (4.0-11.0) Red Blood Count 2.96 x10^6/uL (3.50-5.40) 2.59 x10^6/uL (3.50-5.40) Hemoglobin 8.2 g/dL (12.0-15.5) 7.4 g/dL (12.0-15.5) Hematocrit 26.7 % (36.0-47.0) 23.3 % (36.0-47.0) Mean Corpuscular Volume 90 fL (79-100) 90 fL (79-100) Mean Corpuscular Hemoglobin 28 pg (25-35) 29 pg (25-35) Mean Corpuscular Hemoglobin Concent 31 g/dL (31-37) 32 g/dL (31-37) Red Cell Distribution Width 23.5 % (11.5-14.5) 24.2 % (11.5-14.5) Platelet Count 304 x10^3/uL (140-400) 296 x10^3/uL (140-400) Erythrocyte Sedimentation Rate 20 (0-25) Sodium Level 146 mmol/L (136-145) 143 mmol/L (136-145) Potassium Level 4.0 mmol/L (3.5-5.1) 4.2 mmol/L (3.5-5.1) Chloride Level 119 mmol/L (98-107) 116 mmol/L (98-107) Carbon Dioxide Level 19 mmol/L (21-32) 17 mmol/L (21-32) Anion Gap 8 (6-14) 10 (6-14) Blood Urea Nitrogen 35 mg/dL (7-20) 28 mg/dL (7-20) Creatinine 0.6 mg/dL (0.6-1.0) 0.6 mg/dL (0.6-1.0) Estimated GFR (Cockcroft-Gault) 102.0 102.0 Glucose Level 111 mg/dL (70-99) 101 mg/dL (70-99) Calcium Level 7.8 mg/dL (8.5-10.1) 8.1 mg/dL (8.5-10.1) Phosphorus Level 2.8 mg/dL (2.6-4.7) 2.6 mg/dL (2.6-4.7) Magnesium Level 1.9 mg/dL (1.8-2.4) 2.0 mg/dL (1.8-2.4) Neutrophils (%) (Auto) 81 % (31-73) Lymphocytes (%) (Auto) 7 % (24-48) Monocytes (%) (Auto) 6 % (0-9) Eosinophils (%) (Auto) 7 % (0-3) Basophils (%) (Auto) 0 % (0-3) Neutrophils # (Auto) 12.2 x10^3uL (1.8-7.7) Lymphocytes # (Auto) 1.0 x10^3/uL (1.0-4.8) Monocytes # (Auto) 0.8 x10^3/uL (0.0-1.1) Eosinophils # (Auto) 1.0 x10^3/uL (0.0-0.7) Basophils # (Auto) 0.1 x10^3/uL (0.0-0.2) BUN/Creatinine Ratio 47 (6-20) Total Bilirubin 0.4 mg/dL (0.2-1.0) Aspartate Amino Transf (AST/SGOT) 17 U/L (15-37) Alanine Aminotransferase (ALT/SGPT) 31 U/L (14-59) Alkaline Phosphatase 42 U/L (46-116) Total Protein 4.4 g/dL (6.4-8.2) Albumin 1.9 g/dL (3.4-5.0) Albumin/Globulin Ratio 0.8 (1.0-1.7) Triglycerides Level 86 mg/dL (0-150) Cholesterol Level 88 mg/dL (0-200) LDL Cholesterol, Calculated 38 mg/dL (0-100) VLDL Cholesterol, Calculated 17 mg/dL (0-40) Non-HDL Cholesterol Calculated 55 mg/dL (0-129) HDL Cholesterol 33 mg/dL (40-60) Cholesterol/HDL Ratio 2.7 Lactic Acid Level 1.0 mmol/L (0.4-2.0) Laboratory Tests Test 10/05/17 05:00 10/05/17 08:00 White Blood Count 15.1 x10^3/uL (4.0-11.0) Red Blood Count 2.59 x10^6/uL (3.50-5.40) Hemoglobin 7.4 g/dL (12.0-15.5) Hematocrit 23.3 % (36.0-47.0) Mean Corpuscular Volume 90 fL (79-100) Mean Corpuscular Hemoglobin 29 pg (25-35) Mean Corpuscular Hemoglobin Concent 32 g/dL (31-37) Red Cell Distribution Width 24.2 % (11.5-14.5) Platelet Count 296 x10^3/uL (140-400) Neutrophils (%) (Auto) 81 % (31-73) Lymphocytes (%) (Auto) 7 % (24-48) Monocytes (%) (Auto) 6 % (0-9) Eosinophils (%) (Auto) 7 % (0-3) Basophils (%) (Auto) 0 % (0-3) Neutrophils # (Auto) 12.2 x10^3uL (1.8-7.7) Lymphocytes # (Auto) 1.0 x10^3/uL (1.0-4.8) Monocytes # (Auto) 0.8 x10^3/uL (0.0-1.1) Eosinophils # (Auto) 1.0 x10^3/uL (0.0-0.7) Basophils # (Auto) 0.1 x10^3/uL (0.0-0.2) Sodium Level 143 mmol/L (136-145) Potassium Level 4.2 mmol/L (3.5-5.1) Chloride Level 116 mmol/L (98-107) Carbon Dioxide Level 17 mmol/L (21-32) Anion Gap 10 (6-14) Blood Urea Nitrogen 28 mg/dL (7-20) Creatinine 0.6 mg/dL (0.6-1.0) Estimated GFR (Cockcroft-Gault) 102.0 BUN/Creatinine Ratio 47 (6-20) Glucose Level 101 mg/dL (70-99) Calcium Level 8.1 mg/dL (8.5-10.1) Phosphorus Level 2.6 mg/dL (2.6-4.7) Magnesium Level 2.0 mg/dL (1.8-2.4) Total Bilirubin 0.4 mg/dL (0.2-1.0) Aspartate Amino Transf (AST/SGOT) 17 U/L (15-37) Alanine Aminotransferase (ALT/SGPT) 31 U/L (14-59) Alkaline Phosphatase 42 U/L (46-116) Total Protein 4.4 g/dL (6.4-8.2) Albumin 1.9 g/dL (3.4-5.0) Albumin/Globulin Ratio 0.8 (1.0-1.7) Triglycerides Level 86 mg/dL (0-150) Cholesterol Level 88 mg/dL (0-200) LDL Cholesterol, Calculated 38 mg/dL (0-100) VLDL Cholesterol, Calculated 17 mg/dL (0-40) Non-HDL Cholesterol Calculated 55 mg/dL (0-129) HDL Cholesterol 33 mg/dL (40-60) Cholesterol/HDL Ratio 2.7 Lactic Acid Level 1.0 mmol/L (0.4-2.0) Microbiology 09/17/17 Blood Culture - Final, Complete NO GROWTH AFTER 5 DAYS 09/20/17 AFB Specimen Processing Tissue - Final, Resulted 09/20/17 Acid Fast Bacilli Culture, Resulted Pending 09/20/17 Gram Stain - Final, Resulted 09/20/17 Fungal Culture - Preliminary, Resulted 09/20/17 Fungal Culture Result 1 - Preliminary, Resulted Medications Current Medications Sodium Chloride 1,000 ml @ 125 mls/hr 1X ONCE IV Last administered on t 15:54; Start 09/17/17 at 15:15; Stop 09/17/17 at 23:14; Status DC Ondansetron HCl (Zofran) 4 mg PRN Q8HRS PRN IV NAUSEA/VOMITING; Start at 16:30; Stop 09/18/17 at 16:29; Status DC Ceftriaxone Sodium 50 ml @ 0 mls/hr 1X ONCE IV Last administered on 17:33; Start 09/17/17 at 16:45; Stop 09/17/17 at 16:46; Status DC Azithromycin 250 ml @ 250 mls/hr 1X ONCE IV Last administered on 09/17/17 22:38; Start 09/17/17 at 16:30; Stop 09/17/17 at 17:29; Status DC Albuterol/ Ipratropium (Duoneb) 3 ml 1X ONCE NEB Last administered on 17:00; Start 09/17/17 at 16:45; Stop 09/17/17 at 16:46; Status DC Potassium Chloride (Klor-Con) 40 meq 1X ONCE PO Last administered on 16:57; Start 09/17/17 at 16:45; Stop 09/17/17 at 16:46; Status DC Azithromycin (Zithromax) 250 mg DAILY PO Last administered on 09/18/17 10:25 ; Start 09/18/17 at 09:00; Stop 09/19/17 at 10:30; Status DC Ceftriaxone Sodium 1 gm/ Dextrose 50 ml @ 100 mls/hr Q24H IV ; Start 09/17/17 at 17:15; Status UNV Albuterol/ Ipratropium (Duoneb) 3 ml Q4HRS NEB Last administered on 09/30/17 08:11; Start 09/17/17 at 20:00; Stop 09/30/17 at 09:21; Status DC Ceftriaxone Sodium (Rocephin) 1 gm Q24H IVP Last administered on 09/18/17 17: 55; Start 09/18/17 at 16:00; Stop 09/19/17 at 10:30; Status DC Guaifenesin (Robitussin Dm) 10 ml PRN Q6HRS PRN PO COUGH; Start 09/17/17 at 17 :15; Stop 09/30/17 at 09:21; Status DC Sodium Chloride 1,000 ml @ 125 mls/hr 1X ONCE IV Last administered on 17:45; Start 09/17/17 at 17:15; Stop 09/17/17 at 22:12; Status DC Info (Do NOT chart on this placeholder) 1 each 1X ONCE MC ; Start 09/17/17 at 19:00; Stop 09/17/17 at 19:01; Status UNV Influenza Virus Vaccine Quadrival (Fluarix Quad 6096-7001 Syringe) 0.5 ml ONCE ONCE VAX IM Last administered on 09/17/17 21:00; Start 09/17/17 at 21:00; Stop 09/17/17 at 21:01; Status DC Sodium Chloride 1,000 ml @ 130 mls/hr 1X ONCE IV Last administered on 22:31; Start 09/17/17 at 22:30; Stop 09/18/17 at 06:11; Status DC Sodium Bicarbonate 50 meq 1X ONCE IV Last administered on 09/17/17 22:31; Start 09/17/17 at 22:30; Stop 09/17/17 at 22:31; Status DC Alprazolam (Xanax) 1 mg PRN TID PRN PO ANXIETY Last administered on 09/19/17 02:19; Start 09/17/17 at 22:30; Stop 09/30/17 at 09:21; Status DC Furosemide (Lasix) 20 mg 1X ONCE IVP Last administered on 09/18/17 06:24; Start 09/18/17 at 06:30; Stop 09/18/17 at 06:31; Status DC Potassium Chloride (Klor-Con) 40 meq 1X ONCE PO Last administered on 10:25; Start 09/18/17 at 09:00; Stop 09/18/17 at 09:01; Status DC Iron Sucrose 500 mg/Sodium Chloride 275 ml @ 78.571 mls/ hr 1X ONCE IV Last administered on 09/18/17 10:24; Start 09/18/17 at 09:00; Stop 09/18/17 at 12 :29; Status DC Furosemide (Lasix) 20 mg 1X ONCE IVP Last administered on 09/18/17 10:30; Start 09/18/17 at 10:00; Stop 09/18/17 at 10:22; Status DC Pantoprazole Sodium (Protonix) 40 mg DAILYAC PO Last administered on 10:47; Start 09/18/17 at 11:00; Stop 09/19/17 at 13:41; Status DC Furosemide (Lasix) 20 mg 1X ONCE IVP Last administered on 09/18/17 10:47; Start 09/18/17 at 10:45; Stop 09/18/17 at 10:46; Status DC Potassium Chloride (Klor-Con) 40 meq 1X ONCE PO ; Start 09/18/17 at 11:45; Stop 09/18/17 at 11:46; Status DC Oxycodone/ Acetaminophen (Percocet 5/325) 1 tab PRN Q6HRS PRN PO PAIN Last administered on 10/04/17 12:51; Start 09/18/17 at 12:15 Lorazepam (Ativan) 1 mg PRN Q4HRS PRN IV ANXIETY / AGITATION Last administered on 09/18/17 12:25; Start 09/18/17 at 12:15; Stop 09/18/17 at 13:34; Status DC Fentanyl Citrate (Fentanyl 2ml Vial) 50 mcg PRN Q2HR PRN IV PAIN Last administered on 09/19/17 04:09; Start 09/18/17 at 12:15; Stop 09/30/17 at 09 :21; Status DC Lorazepam (Ativan) 2 mg PRN Q4HRS PRN IV ANXIETY / AGITATION Last administered on 09/29/17 05:17; Start 09/18/17 at 13:30; Stop 09/30/17 at 09:21; Status DC Quetiapine Fumarate (SEROquel) 25 mg HS PO Last administered on 09/18/17 21: 03; Start 09/18/17 at 21:00; Stop 09/19/17 at 10:35; Status DC Haloperidol Lactate (Haldol) 5 mg PRN Q12HRS PRN IVP AGITATION; Start at 13:45 Lorazepam (Ativan) 1 mg PRN Q4HRS PRN IV ANXIETY / AGITATION; Start 09/19/17 at 10:15; Stop 09/19/17 at 10:18; Status DC Lorazepam (Ativan) 4 mg 1X ONCE IV ; Start 09/19/17 at 10:30; Stop 09/19/17 at 10:31; Status DC Vancomycin HCl (Vanco Per Pharmacy) 1 each PRN DAILY PRN MC SEE COMMENTS Last administered on 09/23/17 12:36; Start 09/19/17 at 10:30; Stop 09/24/17 at 08 :36; Status DC Piperacillin Sod/ Tazobactam Sod (Zosyn Per Pharmacy) 1 each PRN DAILY PRN MC SEE COMMENTS; Start 09/19/17 at 10:30; Stop 09/24/17 at 08:41; Status DC Vancomycin HCl 2 gm/Dextrose 500 ml @ 250 mls/hr 1X ONCE IV Last administered on 09/19/17 14:53; Start 09/19/17 at 11:00; Stop 09/19/17 at 12 :59; Status DC Piperacillin Sod/ Tazobactam Sod (Zosyn) 3.375 gm Q6HRS IVP Last administered on 10/02/17 17:13; Start 09/19/17 at 11:00; Stop 10/02/17 at 19:14; Status DC Budesonide (Pulmicort) 0.5 mg RTBID NEB Last administered on 10/05/17 07:52; Start 09/19/17 at 20:00 Budesonide (Pulmicort) 0.5 mg 1X ONCE NEB Last administered on 09/19/17 12: 50; Start 09/19/17 at 10:45; Stop 09/19/17 at 10:46; Status DC Pantoprazole Sodium (PROTONIX VIAL for IV PUSH) 40 mg DAILYAC IVP Last administered on 10/03/17 08:23; Start 09/19/17 at 11:30; Stop 10/04/17 at 08 :51; Status DC Furosemide (Lasix) 40 mg DAILY IVP ; Start 09/19/17 at 11:00; Stop 09/20/17 at 13:20; Status DC Methylprednisolone Sodium Succinate (SOLU-Medrol 125MG VIAL) 125 mg 1X ONCE IV Last administered on 09/19/17 13:23; Start 09/19/17 at 10:45; Stop at 10:46; Status DC Prednisone (Prednisone) 40 mg DAILY PO ; Start 09/19/17 at 11:00; Stop at 09:02; Status DC Methylprednisolone Sodium Succinate (SOLU-Medrol 125MG VIAL) 125 mg Q8HRS IV Last administered on 09/23/17t 05:43; Start 09/19/17 at 14:00; Stop 09/23/17 at 10:40; Status DC Midazolam HCl 100 ml @ 0 mls/hr CONT PRN IV SEE I/O RECORD; Start 09/19/17 at 11:00; Stop 09/19/17 at 12:51; Status DC Midazolam HCl (Versed) 5 mg 1X ONCE IV ; Start 09/19/17 at 11:00; Stop at 11:01; Status DC Fentanyl Citrate (Fentanyl 2ml Vial) 50 mcg 1X ONCE IV ; Start 09/19/17 at 11: 00; Stop 09/19/17 at 11:01; Status DC Midazolam HCl 100 ml @ As Directed STK-MED ONCE IV ; Start 09/19/17 at 10:55; Stop 09/19/17 at 10:56; Status DC Midazolam HCl (Versed) 5 mg STK-MED ONCE .ROUTE ; Start 09/19/17 at 10:55; Stop 09/19/17 at 10:56; Status DC Propofol 100 ml @ As Directed STK-MED ONCE IV ; Start 09/19/17 at 10:59; Stop 09/19/17 at 11:00; Status DC Norepinephrine Bitartrate 250 ml @ As Directed STK-MED ONCE IV ; Start at 10:59; Stop 09/19/17 at 11:00; Status DC Furosemide (Lasix) 20 mg 1X ONCE IVP ; Start 09/19/17 at 11:15; Stop at 11:16; Status DC Vecuronium Manteno (Norcuron Bolus) 10 mg STK-MED ONCE IV ; Start 09/19/17 at 11:21; Stop 09/19/17 at 11:22; Status DC Fentanyl Citrate 30 ml @ 0 mls/hr CONT PRN IV PROTOCOL Last administered on t 15:08; Start 09/19/17 at 11:30; Stop 09/23/17 at 15:24; Status DC Vecuronium Manteno (Norcuron Bolus) 6 mg 1X ONCE IV Last administered on 09/19t 11:42; Start 09/19/17 at 11:30; Stop 09/19/17 at 11:39; Status DC Propofol 10 ml @ 0 mls/hr 1X ONCE IV Last administered on 09/19/17 11:30; Start 09/19/17 at 11:30; Stop 09/19/17 at 11:39; Status DC Midazolam HCl 100 ml @ 0 mls/hr CONT PRN IV SEE I/O RECORD Last administered on 09/27/17 00:40; Start 09/19/17 at 11:30; Stop 09/30/17 at 09:21; Status DC Norepinephrine Bitartrate 250 ml @ 0 mls/hr CONT PRN IV SEE I/O RECORD Last administered on 09/24/17 05:18; Start 09/19/17 at 11:30; Stop 09/30/17 at 09 :21; Status DC Succinylcholine Chloride (Anectine) 100 mg 1X ONCE IV Last administered on 11:42; Start 09/19/17 at 11:30; Stop 09/19/17 at 11:39; Status DC Sodium Bicarbonate 50 meq 1X ONCE IV Last administered on 09/19/17 13:23; Start 09/19/17 at 12:45; Stop 09/19/17 at 12:46; Status DC Sodium Bicarbonate 50 meq 1X ONCE IV Last administered on 09/19/17 13:23; Start 09/19/17 at 12:45; Stop 09/19/17 at 12:46; Status DC Lidocaine/Sodium Bicarbonate (Buffered Lidocaine 1%) 20 ml STK-MED ONCE IJ ; Start 09/19/17 at 13:34; Stop 09/19/17 at 13:35; Status DC Vecuronium Manteno (Norcuron Bolus) 10 mg 1X ONCE IV Last administered on 15:05; Start 09/19/17 at 14:00; Stop 09/19/17 at 14:02; Status DC Lidocaine/Sodium Bicarbonate (Buffered Lidocaine 1%) 3 ml 1X ONCE IJ ; Start 09/19/17 at 14:45; Stop 09/19/17 at 14:46; Status DC Vancomycin HCl 1.25 gm/Dextrose 250 ml @ 166.667 mls/hr Q24H IV Last administered on 09/23/17 17:19; Start 09/20/17 at 15:00; Stop 09/24/17 at 08 :35; Status DC Vancomycin HCl 1 each 1X ONCE MC Last administered on 09/21/17 14:30; Start 09/21/17 at 14:30; Stop 09/21/17 at 14:31; Status DC Azithromycin 500 mg/Sodium Chloride 250 ml @ 250 mls/hr Q24H IV Last administered on 09/23/17 17:19; Start 09/19/17 at 16:30; Stop 09/24/17 at 08 :35; Status DC Norepinephrine Bitartrate (Levophed 8mg/ 250ml Premix Drip) 8 mg STK-MED ONCE IV ; Start 09/19/17 at 11:00; Stop 09/20/17 at 08:44; Status DC Midazolam HCl (Versed) 5 mg STK-MED ONCE .ROUTE ; Start 09/19/17 at 11:00; Stop 09/20/17 at 08:44; Status DC Amino Acids/ Glycerin/ Electrolytes 1,000 ml @ 80 mls/hr [id number] IV Last administered on 09/21/17 01:21; Start 09/20/17 at 10:00; Stop 09/22/17 at 07 :02; Status DC Info 1 each PRN DAILY PRN MC SEE COMMENTS; Start 09/20/17 at 10:00; Stop at 12:14; Status DC Furosemide (Lasix) 20 mg 1X ONCE IVP Last administered on 09/20/17 10:21; Start 09/20/17 at 10:15; Stop 09/20/17 at 10:18; Status DC Info 1 each PRN DAILY PRN MC SEE COMMENTS; Start 09/20/17 at 11:00; Status UNV Vecuronium Manteno (Norcuron Bolus) 10 mg 1X ONCE IV Last administered on 12:03; Start 09/20/17 at 11:15; Stop 09/20/17 at 11:24; Status DC Atropine Sulfate 0.5 mg STK-MED ONCE .ROUTE ; Start 09/20/17 at 11:47; Stop at 11:48; Status DC Epinephrine HCl (EPINEPHrine SYRINGE) 1 mg STK-MED ONCE .ROUTE ; Start at 11:47; Stop 09/20/17 at 11:48; Status DC Atropine Sulfate 0.5 mg STK-MED ONCE .ROUTE ; Start 09/20/17 at 12:00; Stop at 09:11; Status DC Epinephrine HCl (EPINEPHrine SYRINGE) 1 mg STK-MED ONCE .ROUTE ; Start at 12:00; Stop 09/21/17 at 09:11; Status DC Furosemide (Lasix) 20 mg DAILY IVP ; Start 09/21/17 at 11:15; Stop 09/21/17 at 11:20; Status DC Lorazepam (Ativan) 1 mg PRN Q1HR PRN IV ANXIETY / AGITATION Last administered on 09/28/17 17:04; Start 09/21/17 at 11:15; Stop 09/30/17 at 09:21; Status DC Albumin Human 250 ml @ 62.5 mls/hr 1X ONCE IV Last administered on 11:57; Start 09/21/17 at 11:30; Stop 09/21/17 at 15:29; Status DC Albumin Human 250 ml @ 62.5 mls/hr 1X ONCE IV Last administered on 14:29; Start 09/21/17 at 11:30; Stop 09/21/17 at 15:29; Status DC Micafungin Sodium 100 mg/Dextrose 100 ml @ 100 mls/hr Q24H IV Last administered on 09/23/17 13:17; Start 09/21/17 at 12:00; Stop 09/24/17 at 08 :35; Status DC Vecuronium Manteno (Norcuron Bolus) 4 mg PRN Q4HRS PRN IV AGITATION; Start at 15:00; Stop 09/30/17 at 09:21; Status DC Dexmedetomidine HCl 200 mcg/ Sodium Chloride 50 ml @ 0 mls/hr CONT PRN IV PER PROTOCOL Last administered on 09/21/17 15:54; Start 09/21/17 at 15:30; Stop 09/30/17 at 09:21; Status DC Sodium Chloride 500 ml @ 500 mls/hr 1X PRN PRN IV SEE COMMENTS; Start at 15:30 Atropine Sulfate 0.5 mg PRN Q5MIN PRN IV SEE COMMENTS; Start 09/21/17 at 15:30 Propofol 100 ml @ 0 mls/hr CONT PRN IV PER PROTOCOL Last administered on 11/25/ 17at 14:35; Start 09/21/17 at 16:45; Stop 09/30/17 at 09:21; Status DC Furosemide (Lasix) 20 mg 1X ONCE IVP Last administered on 09/22/17 09:41; Start 09/22/17 at 10:15; Stop 09/22/17 at 10:16; Status DC Chlorhexidine Gluconate (Peridex) 15 ml BID MM Last administered on 09/29/17 08:07; Start 09/22/17 at 21:00; Stop 09/29/17 at 20:22; Status DC Furosemide (Lasix) 20 mg 1X ONCE IVP Last administered on 09/22/17 17:55; Start 09/22/17 at 18:00; Stop 09/22/17 at 18:01; Status DC Furosemide (Lasix) 20 mg DAILY IVP Last administered on 09/23/17 13:16; Start 09/23/17 at 11:30; Stop 09/24/17 at 08:40; Status DC Methylprednisolone Sodium Succinate (SOLU-Medrol 125MG VIAL) 80 mg Q8HRS IV Last administered on 09/30/17 05:47; Start 09/23/17 at 14:00; Stop 09/30/17 at 09:26; Status DC Fentanyl Citrate 55 ml @ 0 mls/hr CONT PRN PRN IV PER PROTOCOL Last administered on 09/28/17 19:13; Start 09/23/17 at 12:15; Stop 09/30/17 at 09 :21; Status DC Dextrose 1,000 ml @ 25 mls/hr Q24H IV Last administered on 09/28/17 12:59; Start 09/23/17 at 11:45; Stop 10/04/17 at 13:14; Status DC Enoxaparin Sodium (Lovenox Per Pharmacy Prophylaxis Dosing) 1 each PRN DAILY PRN MC SEE COMMENTS; Start 09/23/17 at 16:30; Stop 09/24/17 at 08:41; Status DC Enoxaparin Sodium (Lovenox 40mg Syringe) 40 mg Q24H SQ Last administered on 17:27; Start 09/23/17 at 17:00 Bisacodyl (Dulcolax Tab) 5 mg PRN DAILY PRN PO CONSTIPATION; Start 09/24/17 at 09:30 Insulin Aspart (NovoLOG) 0-5 UNITS Q6HRS SQ Last administered on 09/29/17 12: 27; Start 09/25/17 at 18:00; Stop 10/01/17 at 02:54; Status DC Dextrose (Dextrose 50%-Water Syringe) 12.5 gm PRN Q15MIN PRN IV SEE COMMENTS; Start 09/25/17 at 12:30; Stop 10/01/17 at 02:54; Status DC Dextrose/Sodium Chloride 1,000 ml @ 75 mls/hr [id number] IV Last administered on 10/02/17 01:23; Start 09/29/17 at 19:00; Stop 10/02/17 at 09:07; Status DC Ondansetron HCl (Zofran) 4 mg PRN Q6HRS PRN IV NAUSEA/VOMITING Last administered on 10/01/17 20:33; Start 09/29/17 at 20:00 Albuterol/ Ipratropium (Duoneb) 3 ml TID NEB Last administered on 10/05/17 12: 19; Start 09/30/17 at 14:00 Methylprednisolone Sodium Succinate (SOLU-Medrol 125MG VIAL) 80 mg Q12HR IV Last administered on 10/01/17 08:56; Start 09/30/17 at 21:00; Stop 10/01/17 at 10:22; Status DC Iron Sucrose 500 mg/Sodium Chloride 275 ml @ 78.571 mls/ hr 1X ONCE IV Last administered on 10/01/17 10:08; Start 10/01/17 at 09:30; Stop 10/01/17 at 12 :59; Status DC Methylprednisolone Sodium Succinate (SOLU-Medrol 40MG VIAL) 40 mg Q12HR IV ; Start 10/01/17 at 21:00; Stop 10/01/17 at 21:00; Status DC Alprazolam (Xanax) 0.25 mg PRN Q8HRS PRN PO ANXIETY / AGITATION Last administered on 10/04/17 21:09; Start 10/01/17 at 10:30 Quetiapine Fumarate (SEROquel) 50 mg HS PO Last administered on 10/04/17 21: 09; Start 10/01/17 at 21:00 Methylprednisolone Sodium Succinate (SOLU-Medrol 40MG VIAL) 40 mg QHS IV Last administered on 10/01/17 20:32; Start 10/01/17 at 21:00; Stop 10/02/17 at 10 :36; Status DC Saliva Substitute (Biotene Moisturizing Mouth) 2 spray PRN Q15MIN PRN PO DRY MOUTH; Start 10/02/17 at 09:15 Info 1 each PRN DAILY PRN MC SEE COMMENTS Last administered on 10/04/17 13:28 ; Start 10/02/17 at 09:15 Amino Acids/ Glycerin/ Electrolytes 1,000 ml @ 100 mls/hr Q10H IV Last administered on 10/02/17 09:57; Start 10/02/17 at 10:00; Stop 10/02/17 at 19 :59; Status DC Methylprednisolone Sodium Succinate (SOLU-Medrol 40MG VIAL) 20 mg QHS IV Last administered on 10/02/17 21:38; Start 10/02/17 at 21:00; Stop 10/03/17 at 12 :46; Status DC Sodium Acetate 40 meq/Potassium Chloride 50 meq/ Potassium Phosphate 13.6 mmol/ Magnesium Sulfate 10 meq/ Calcium Gluconate 10 meq/ Multivitamins 10 ml/Chromium / Copper/Manganese/ Seleni/Zn 1 ml/ Total Parenteral Nutrition/Amino Acids/ Dextrose/ Fat Emulsion Intravenous 1,512 ml @ 63 mls/hr TPN CONT IV Last administered on 10/02/17 21:37; Start 10/02/17 at 22:00; Stop 10/03/17 at 21 :59; Status DC Morphine Sulfate 2 mg PRN Q2HR PRN IV SEVERE PAIN Last administered on 01:33; Start 10/03/17 at 06:00 Lorazepam (Ativan) 1 mg PRN Q4HRS PRN IV ANXIETY / AGITATION Last administered on 10/04/17 01:15; Start 10/03/17 at 06:00 Potassium Phosphate 13.6 mmol/Sodium Chloride 104.5333 ml @ 52.267 m... Q2H IV Last administered on 10/03/17 17:28; Start 10/03/17 at 12:00; Stop at 15:59; Status DC Potassium Acetate 70 meq/Potassium Phosphate 13.6 mmol/Magnesium Sulfate 10 meq / Calcium Gluconate 10 meq/ Multivitamins 10 ml/Chromium/ Copper/Manganese/ Seleni/Zn 1 ml/ Total Parenteral Nutrition/Amino Acids/Dextrose/ Fat Emulsion Intravenous 1,992 ml @ 83 mls/hr TPN CONT IV Last administered on 10/03/17 22:00; Start 10/03/17 at 22:00; Stop 10/04/17 at 21:59; Status DC Vitamin A/Vitamin D (Vitamin A & D Ointment) 1 oje PRN BID PRN TP SKIN PROTECTION Last administered on 10/04/17 01:28; Start 10/03/17 at 14:00 Pantoprazole Sodium (Protonix) 40 mg DAILYAC PO Last administered on 10/05/17 09:26; Start 10/05/17 at 07:30 Simethicone (Gas-X) 80 mg PRN AFTMEALHC PRN PO GAS / BLOATING Last administered on 10/04/17 21:09; Start 10/04/17 at 09:00 Polyethylene Glycol (miraLAX PACKET) 17 gm PRN DAILY PRN PO CONSTIPATION; Start 10/04/17 at 09:00 Potassium Acetate 70 meq/Potassium Phosphate 13.6 mmol/Magnesium Sulfate 10 meq / Calcium Gluconate 10 meq/ Multivitamins 10 ml/Chromium/ Copper/Manganese/ Seleni/Zn 1 ml/ Total Parenteral Nutrition/Amino Acids/Dextrose/ Fat Emulsion Intravenous 1,992 ml @ 83 mls/hr TPN CONT IV Last administered on 10/05/17 00:02; Start 10/04/17 at 22:00; Stop 10/05/17 at 21:59 Iohexol (Omnipaque 300 Mg/ml) 75 ml 1X ONCE IV Last administered on 16:25; Start 10/04/17 at 15:30; Stop 10/04/17 at 15:31; Status DC Info (Do NOT chart on this entry -- for MONITORING) 1 each PRN DAILY PRN MC SEE COMMENTS; Start 10/04/17 at 15:45; Stop 10/06/17 at 15:44 Loperamide HCl (Imodium) 2 mg PRN Q1HR PRN PEG DIARRHEA Last administered on 12:22; Start 10/05/17 at 07:00 Furosemide (Lasix) 20 mg DAILY PO Last administered on 12/1/17at 09:27; Start 10/05/17 at 09:00 Active Scripts Active Reported Gabapentin 300 Mg Capsule 300 Mg PO TID Cymbalta (Duloxetine Hcl) 60 Mg Capsule. 1 Cap PO BID Hydrochlorothiazide Tablet (Hydrochlorothiazide) 25 Mg Tablet 1 Tab PO DAILY Xanax (Alprazolam) 1 Mg Tablet 1 Tab PO TID PRN Vitals/I & O Vital Sign - Last 24 Hours 10/04/17 10/04/17 10/04/17 10/04/17 14:00 14:48 19:00 19:11 Temp 97.8 98.1 97.8 98.1 Pulse 93 99 Resp 17 26 B/P (MAP) 118/66 (83) 116/59 (78) Pulse Ox 99 99 O2 Delivery Room Air Room Air Room Air Room Air 10/04/17 10/04/17 10/04/17 10/04/17 20:00 21:10 21:40 23:35 Temp 98.0 98.0 Pulse 90 Resp 18 20 B/P (MAP) 129/79 (96) Pulse Ox 99 98 O2 Delivery Room Air Room Air Room Air 10/05/17 10/05/17 10/05/17 10/05/17 01:33 02:03 03:28 07:00 Temp 98.1 97.5 98.1 97.5 Pulse 83 103 Resp 20 20 B/P (MAP) 139/70 (93) 147/105 (119) Pulse Ox 98 98 98 95 O2 Delivery Room Air Room Air Room Air Room Air 10/05/17 10/05/17 10/05/17 07:52 11:00 12:20 Temp 97.6 97.6 Pulse 91 Resp 20 B/P (MAP) 147/86 (106) Pulse Ox 99 99 O2 Delivery Room Air Room Air Room Air Intake and Output 10/04/17 10/04/17 10/05/17 14:59 22:59 06:59 Intake Total 300 ml 270 ml Output Total 854 ml 1227 ml Balance -554 ml -957 ml ABELARDO MOORE MD Oct 05, 2017 13:14
[2017-10-05] MEDS: TPN PER PHARMACY MC PRN (13:48)
[2017-10-05 15:00] VITALS: BP 138/80
[2017-10-05] MEDS: DICYCLOMINE HCL 10 MG CAPSULE PO PRN (18:08)
[2017-10-05] MEDS: ENOXAPARIN 40 MG/0.4 ML SYRINGE. SQ SCH (18:10)
[2017-10-05 19:00] VITALS: BP 118/80
[2017-10-05] MEDS: QUEtiapine 25 MG TABLET. PO SCH (20:43)
[2017-10-05] MEDS ORDERED: AMINO ACIDS IV SCH ×9 (22:00)
[2017-10-05] MEDS ORDERED: TOTAL PARENTERAL NUTRITION IV SCH ×9 (22:00)
[2017-10-05] MEDS ORDERED: DEXTROSE 70% IV SCH ×9 (22:00)
[2017-10-05] MEDS ORDERED: [UNRECOGNIZED DRUG - OTHER] IV SCH ×9 (22:00)
[2017-10-05 23:51] VITALS: BP 114/76
[2017-10-06] MEDS: DICYCLOMINE HCL 10 MG CAPSULE PO PRN ×2 (02:09→23:10)
[2017-10-06 03:37] VITALS: BP 108/67
[2017-10-06 05:19] LABS: BASO # 0.1 x10^3/uL (0.0-0.2); BASO % 1 % (0-3); EOS % 7 % (0-3); HEMATOCRIT 22.4 % (36.0-47.0); HEMOGLOBIN 7.2 g/dL (12.0-15.5); LYMPH # 0.8 x10^3/uL (1.0-4.8); LYMPH % 6 % (24-48); MEAN CORPUSCULAR HEMOGLOBIN 29 pg (25-35); MEAN CORPUSCULAR HGB CONC 32 g/dL (31-37); MEAN CORPUSCULAR VOLUME 89 fL (79-100); MONO % 4 % (0-9); NEUT % 82 % (31-73); PLATELET COUNT 257 x10^3/uL (140-400); RED BLOOD COUNT 2.51 x10^6/uL (3.50-5.40); RED CELL DISTRIBUTION WIDTH 25.8 % (11.5-14.5); WHITE BLOOD COUNT 12.4 x10^3/uL (4.0-11.0)
[2017-10-06 06:18] LABS: ALBUMIN 2.1 g/dL (3.4-5.0); ALBUMIN/GLOBULIN RATIO 0.7 (1.0-1.7); CALCIUM 8.4 mg/dL (8.5-10.1); CREATININE 0.7 mg/dL (0.6-1.0); GFR 85.4; POTASSIUM 3.8 mmol/L (3.5-5.1); TOTAL BILIRUBIN 0.4 mg/dL (0.2-1.0)
[2017-10-06 07:06] VITALS: BP 112/62
[2017-10-06] MEDS: PANTOPRAZOLE 40 MG TABLET.DR. PO SCH (07:30)
[2017-10-06] MEDS: BUDESONIDE 0.5 MG/2 ML NEBU. NEB SCH ×2 (08:04→19:28)
[2017-10-06] MEDS: IPRATRPIUM/ALBUTEROL 0.5/2.5MG 3 ML NEBU. NEB SCH ×3 (08:04→19:28)
[2017-10-06] MEDS: FUROSEMIDE 20 MG TABLET PO SCH (09:00)
--- NOTE | 2017-10-06 10:09 | PDOC ---
PROGRESS NOTES Chief Complaint Chief Complaint admitted Acute hypoxic respiratory failure consistent with ARDS, improving, now with post ICU delirium and myopathy weakness, anemia of acute blood loss, possibly upper gi, W/ melena, occassional diarrhea Pneumonia post ICU, encephalopathy, acute, ongoing delirium Hypotension COPD - stable, Sepsis, severe, improving Leukocytosis - on steroids now and S/p PRBCs Anemia, acute on chronic, marked iron deficiency on admit, Transaminitis - GEO improved Tobaccoism Anxiety d/o H/o Leg wounds History of Present Illness History of Present Illness wants to go home today, would prefer outpatient therapy, is not that well poor po intake continues, may need calorie count Hgb trending down slowly still, may need PRBC in AM, check type and screen plan ACUTE rehab anytime, pt c/o of dryness and thirst Extubated 09/30/2017 her is here 0700 this AM PT and OT, getting stronger, doing well HGb to be checked daily, acute blood loss is a worry some perineal irritation and pain, better with A+D Vitals Vitals Vital Signs Date Time Temp Pulse Resp B/P (MAP) Pulse Ox O2 Delivery O2 Flow Rate FiO2 10/06/17 08:16 Room Air 10/06/17 08:07 96 10/06/17 07:06 97.9 88 19 112/62 (79) 97.9 Physical Exam Physical Exam up to chair today General: Alert, Oriented X3, No acute distress Heart: Normal S1, Normal S2, No murmurs Lungs: Clear Abdomen: Normal bowel sounds, Soft Extremities: No clubbing, No cyanosis, Normal pulses, Other (1+ edema) Skin: No rashes, No significant lesion Labs LABS Laboratory Tests Test 10/06/17 05:00 White Blood Count 12.4 x10^3/uL (4.0-11.0) Red Blood Count 2.51 x10^6/uL (3.50-5.40) Hemoglobin 7.2 g/dL (12.0-15.5) Hematocrit 22.4 % (36.0-47.0) Mean Corpuscular Volume 89 fL (79-100) Mean Corpuscular Hemoglobin 29 pg (25-35) Mean Corpuscular Hemoglobin Concent 32 g/dL (31-37) Red Cell Distribution Width 25.8 % (11.5-14.5) Platelet Count 257 x10^3/uL (140-400) Neutrophils (%) (Auto) 82 % (31-73) Lymphocytes (%) (Auto) 6 % (24-48) Monocytes (%) (Auto) 4 % (0-9) Eosinophils (%) (Auto) 7 % (0-3) Basophils (%) (Auto) 1 % (0-3) Neutrophils # (Auto) 10.2 x10^3uL (1.8-7.7) Lymphocytes # (Auto) 0.8 x10^3/uL (1.0-4.8) Monocytes # (Auto) 0.5 x10^3/uL (0.0-1.1) Eosinophils # (Auto) 0.8 x10^3/uL (0.0-0.7) Basophils # (Auto) 0.1 x10^3/uL (0.0-0.2) Sodium Level 141 mmol/L (136-145) Potassium Level 3.8 mmol/L (3.5-5.1) Chloride Level 111 mmol/L (98-107) Carbon Dioxide Level 19 mmol/L (21-32) Anion Gap 11 (6-14) Blood Urea Nitrogen 25 mg/dL (7-20) Creatinine 0.7 mg/dL (0.6-1.0) Estimated GFR (Cockcroft-Gault) 85.4 BUN/Creatinine Ratio 36 (6-20) Glucose Level 101 mg/dL (70-99) Calcium Level 8.4 mg/dL (8.5-10.1) Total Bilirubin 0.4 mg/dL (0.2-1.0) Aspartate Amino Transf (AST/SGOT) 21 U/L (15-37) Alanine Aminotransferase (ALT/SGPT) 41 U/L (14-59) Alkaline Phosphatase 53 U/L (46-116) Total Protein 5.0 g/dL (6.4-8.2) Albumin 2.1 g/dL (3.4-5.0) Albumin/Globulin Ratio 0.7 (1.0-1.7) Review of Systems Review of Systems perineal irritation, Assessment and Plan Assessmemt and Plan Problems Medical Problems: (1) Dyspnea Status: Acute (2) Hypoalbuminemia Status: Acute (3) Metabolic acidosis Status: Acute (4) Pneumonia Status: Acute Problems: Comment Review of Relevant I have reviewed the following items tha (where applicable) has been applied. Labs Laboratory Tests Test 10/05/17 05:00 10/05/17 08:00 10/06/17 05:00 White Blood Count 15.1 x10^3/uL (4.0-11.0) 12.4 x10^3/uL (4.0-11.0) Red Blood Count 2.59 x10^6/uL (3.50-5.40) 2.51 x10^6/uL (3.50-5.40) Hemoglobin 7.4 g/dL (12.0-15.5) 7.2 g/dL (12.0-15.5) Hematocrit 23.3 % (36.0-47.0) 22.4 % (36.0-47.0) Mean Corpuscular Volume 90 fL (79-100) 89 fL (79-100) Mean Corpuscular Hemoglobin 29 pg (25-35) 29 pg (25-35) Mean Corpuscular Hemoglobin Concent 32 g/dL (31-37) 32 g/dL (31-37) Red Cell Distribution Width 24.2 % (11.5-14.5) 25.8 % (11.5-14.5) Platelet Count 296 x10^3/uL (140-400) 257 x10^3/uL (140-400) Neutrophils (%) (Auto) 81 % (31-73) 82 % (31-73) Lymphocytes (%) (Auto) 7 % (24-48) 6 % (24-48) Monocytes (%) (Auto) 6 % (0-9) 4 % (0-9) Eosinophils (%) (Auto) 7 % (0-3) 7 % (0-3) Basophils (%) (Auto) 0 % (0-3) 1 % (0-3) Neutrophils # (Auto) 12.2 x10^3uL (1.8-7.7) 10.2 x10^3uL (1.8-7.7) Lymphocytes # (Auto) 1.0 x10^3/uL (1.0-4.8) 0.8 x10^3/uL (1.0-4.8) Monocytes # (Auto) 0.8 x10^3/uL (0.0-1.1) 0.5 x10^3/uL (0.0-1.1) Eosinophils # (Auto) 1.0 x10^3/uL (0.0-0.7) 0.8 x10^3/uL (0.0-0.7) Basophils # (Auto) 0.1 x10^3/uL (0.0-0.2) 0.1 x10^3/uL (0.0-0.2) Sodium Level 143 mmol/L (136-145) 141 mmol/L (136-145) Potassium Level 4.2 mmol/L (3.5-5.1) 3.8 mmol/L (3.5-5.1) Chloride Level 116 mmol/L (98-107) 111 mmol/L (98-107) Carbon Dioxide Level 17 mmol/L (21-32) 19 mmol/L (21-32) Anion Gap 10 (6-14) 11 (6-14) Blood Urea Nitrogen 28 mg/dL (7-20) 25 mg/dL (7-20) Creatinine 0.6 mg/dL (0.6-1.0) 0.7 mg/dL (0.6-1.0) Estimated GFR (Cockcroft-Gault) 102.0 85.4 BUN/Creatinine Ratio 47 (6-20) 36 (6-20) Glucose Level 101 mg/dL (70-99) 101 mg/dL (70-99) Calcium Level 8.1 mg/dL (8.5-10.1) 8.4 mg/dL (8.5-10.1) Phosphorus Level 2.6 mg/dL (2.6-4.7) Magnesium Level 2.0 mg/dL (1.8-2.4) Total Bilirubin 0.4 mg/dL (0.2-1.0) 0.4 mg/dL (0.2-1.0) Aspartate Amino Transf (AST/SGOT) 17 U/L (15-37) 21 U/L (15-37) Alanine Aminotransferase (ALT/SGPT) 31 U/L (14-59) 41 U/L (14-59) Alkaline Phosphatase 42 U/L (46-116) 53 U/L (46-116) Total Protein 4.4 g/dL (6.4-8.2) 5.0 g/dL (6.4-8.2) Albumin 1.9 g/dL (3.4-5.0) 2.1 g/dL (3.4-5.0) Albumin/Globulin Ratio 0.8 (1.0-1.7) 0.7 (1.0-1.7) Triglycerides Level 86 mg/dL (0-150) Cholesterol Level 88 mg/dL (0-200) LDL Cholesterol, Calculated 38 mg/dL (0-100) VLDL Cholesterol, Calculated 17 mg/dL (0-40) Non-HDL Cholesterol Calculated 55 mg/dL (0-129) HDL Cholesterol 33 mg/dL (40-60) Cholesterol/HDL Ratio 2.7 Lactic Acid Level 1.0 mmol/L (0.4-2.0) Laboratory Tests Test 10/06/17 05:00 White Blood Count 12.4 x10^3/uL (4.0-11.0) Red Blood Count 2.51 x10^6/uL (3.50-5.40) Hemoglobin 7.2 g/dL (12.0-15.5) Hematocrit 22.4 % (36.0-47.0) Mean Corpuscular Volume 89 fL (79-100) Mean Corpuscular Hemoglobin 29 pg (25-35) Mean Corpuscular Hemoglobin Concent 32 g/dL (31-37) Red Cell Distribution Width 25.8 % (11.5-14.5) Platelet Count 257 x10^3/uL (140-400) Neutrophils (%) (Auto) 82 % (31-73) Lymphocytes (%) (Auto) 6 % (24-48) Monocytes (%) (Auto) 4 % (0-9) Eosinophils (%) (Auto) 7 % (0-3) Basophils (%) (Auto) 1 % (0-3) Neutrophils # (Auto) 10.2 x10^3uL (1.8-7.7) Lymphocytes # (Auto) 0.8 x10^3/uL (1.0-4.8) Monocytes # (Auto) 0.5 x10^3/uL (0.0-1.1) Eosinophils # (Auto) 0.8 x10^3/uL (0.0-0.7) Basophils # (Auto) 0.1 x10^3/uL (0.0-0.2) Sodium Level 141 mmol/L (136-145) Potassium Level 3.8 mmol/L (3.5-5.1) Chloride Level 111 mmol/L (98-107) Carbon Dioxide Level 19 mmol/L (21-32) Anion Gap 11 (6-14) Blood Urea Nitrogen 25 mg/dL (7-20) Creatinine 0.7 mg/dL (0.6-1.0) Estimated GFR (Cockcroft-Gault) 85.4 BUN/Creatinine Ratio 36 (6-20) Glucose Level 101 mg/dL (70-99) Calcium Level 8.4 mg/dL (8.5-10.1) Total Bilirubin 0.4 mg/dL (0.2-1.0) Aspartate Amino Transf (AST/SGOT) 21 U/L (15-37) Alanine Aminotransferase (ALT/SGPT) 41 U/L (14-59) Alkaline Phosphatase 53 U/L (46-116) Total Protein 5.0 g/dL (6.4-8.2) Albumin 2.1 g/dL (3.4-5.0) Albumin/Globulin Ratio 0.7 (1.0-1.7) Microbiology 09/17/17 Blood Culture - Final, Complete NO GROWTH AFTER 5 DAYS 09/20/17 AFB Specimen Processing Tissue - Final, Resulted 09/20/17 Acid Fast Bacilli Culture, Resulted Pending 09/20/17 Gram Stain - Final, Resulted 09/20/17 Fungal Culture - Preliminary, Resulted 09/20/17 Fungal Culture Result 1 - Preliminary, Resulted Medications Current Medications Sodium Chloride 1,000 ml @ 125 mls/hr 1X ONCE IV Last administered on 15:54; Start 09/17/17 at 15:15; Stop 09/17/17 at 23:14; Status DC Ondansetron HCl (Zofran) 4 mg PRN Q8HRS PRN IV NAUSEA/VOMITING; Start at 16:30; Stop 09/18/17 at 16:29; Status DC Ceftriaxone Sodium 50 ml @ 0 mls/hr 1X ONCE IV Last administered on 17:33; Start 09/17/17 at 16:45; Stop 09/17/17 at 16:46; Status DC Azithromycin 250 ml @ 250 mls/hr 1X ONCE IV Last administered on 09/17/17 22:38; Start 09/17/17 at 16:30; Stop 09/17/17 at 17:29; Status DC Albuterol/ Ipratropium (Duoneb) 3 ml 1X ONCE NEB Last administered on 17:00; Start 09/17/17 at 16:45; Stop 09/17/17 at 16:46; Status DC Potassium Chloride (Klor-Con) 40 meq 1X ONCE PO Last administered on 16:57; Start 09/17/17 at 16:45; Stop 09/17/17 at 16:46; Status DC Azithromycin (Zithromax) 250 mg DAILY PO Last administered on 09/18/17 10:25 ; Start 09/18/17 at 09:00; Stop 09/19/17 at 10:30; Status DC Ceftriaxone Sodium 1 gm/ Dextrose 50 ml @ 100 mls/hr Q24H IV ; Start 09/17/17 at 17:15; Status UNV Albuterol/ Ipratropium (Duoneb) 3 ml Q4HRS NEB Last administered on 09/30/17 08:11; Start 09/17/17 at 20:00; Stop 09/30/17 at 09:21; Status DC Ceftriaxone Sodium (Rocephin) 1 gm Q24H IVP Last administered on 09/18/17 17: 55; Start 09/18/17 at 16:00; Stop 09/19/17 at 10:30; Status DC Guaifenesin (Robitussin Dm) 10 ml PRN Q6HRS PRN PO COUGH; Start 09/17/17 at 17 :15; Stop 09/30/17 at 09:21; Status DC Sodium Chloride 1,000 ml @ 125 mls/hr 1X ONCE IV Last administered on 17:45; Start 09/17/17 at 17:15; Stop 09/17/17 at 22:12; Status DC Info (Do NOT chart on this placeholder) 1 each 1X ONCE MC ; Start 09/17/17 at 19:00; Stop 09/17/17 at 19:01; Status UNV Influenza Virus Vaccine Quadrival (Fluarix Quad [id number] Syringe) 0.5 ml ONCE ONCE VAX IM Last administered on 09/17/17 21:00; Start 09/17/17 at 21:00; Stop 09/17/17 at 21:01; Status DC Sodium Chloride 1,000 ml @ 130 mls/hr 1X ONCE IV Last administered on 22:31; Start 09/17/17 at 22:30; Stop 09/18/17 at 06:11; Status DC Sodium Bicarbonate 50 meq 1X ONCE IV Last administered on 09/17/17 22:31; Start 09/17/17 at 22:30; Stop 09/17/17 at 22:31; Status DC Alprazolam (Xanax) 1 mg PRN TID PRN PO ANXIETY Last administered on 09/19/17 02:19; Start 09/17/17 at 22:30; Stop 09/30/17 at 09:21; Status DC Furosemide (Lasix) 20 mg 1X ONCE IVP Last administered on 09/18/17 06:24; Start 09/18/17 at 06:30; Stop 09/18/17 at 06:31; Status DC Potassium Chloride (Klor-Con) 40 meq 1X ONCE PO Last administered on 10:25; Start 09/18/17 at 09:00; Stop 09/18/17 at 09:01; Status DC Iron Sucrose 500 mg/Sodium Chloride 275 ml @ 78.571 mls/ hr 1X ONCE IV Last administered on 09/18/17 10:24; Start 09/18/17 at 09:00; Stop 09/18/17 at 12 :29; Status DC Furosemide (Lasix) 20 mg 1X ONCE IVP Last administered on 09/18/17 10:30; Start 09/18/17 at 10:00; Stop 09/18/17 at 10:22; Status DC Pantoprazole Sodium (Protonix) 40 mg DAILYAC PO Last administered on 10:47; Start 09/18/17 at 11:00; Stop 09/19/17 at 13:41; Status DC Furosemide (Lasix) 20 mg 1X ONCE IVP Last administered on 09/18/17 10:47; Start 09/18/17 at 10:45; Stop 09/18/17 at 10:46; Status DC Potassium Chloride (Klor-Con) 40 meq 1X ONCE PO ; Start 09/18/17 at 11:45; Stop 09/18/17 at 11:46; Status DC Oxycodone/ Acetaminophen (Percocet 5/325) 1 tab PRN Q6HRS PRN PO PAIN Last administered on 10/04/17 12:51; Start 09/18/17 at 12:15 Lorazepam (Ativan) 1 mg PRN Q4HRS PRN IV ANXIETY / AGITATION Last administered on 09/18/17 12:25; Start 09/18/17 at 12:15; Stop 09/18/17 at 13:34; Status DC Fentanyl Citrate (Fentanyl 2ml Vial) 50 mcg PRN Q2HR PRN IV PAIN Last administered on 09/19/17 04:09; Start 09/18/17 at 12:15; Stop 09/30/17 at 09 :21; Status DC Lorazepam (Ativan) 2 mg PRN Q4HRS PRN IV ANXIETY / AGITATION Last administered on 09/29/17 05:17; Start 09/18/17 at 13:30; Stop 09/30/17 at 09:21; Status DC Quetiapine Fumarate (SEROquel) 25 mg HS PO Last administered on 09/18/17 21: 03; Start 09/18/17 at 21:00; Stop 09/19/17 at 10:35; Status DC Haloperidol Lactate (Haldol) 5 mg PRN Q12HRS PRN IVP AGITATION; Start at 13:45 Lorazepam (Ativan) 1 mg PRN Q4HRS PRN IV ANXIETY / AGITATION; Start 09/19/17 at 10:15; Stop 09/19/17 at 10:18; Status DC Lorazepam (Ativan) 4 mg 1X ONCE IV ; Start 09/19/17 at 10:30; Stop 09/19/17 at 10:31; Status DC Vancomycin HCl (Vanco Per Pharmacy) 1 each PRN DAILY PRN MC SEE COMMENTS Last administered on 09/23/17 12:36; Start 09/19/17 at 10:30; Stop 09/24/17 at 08 :36; Status DC Piperacillin Sod/ Tazobactam Sod (Zosyn Per Pharmacy) 1 each PRN DAILY PRN MC SEE COMMENTS; Start 09/19/17 at 10:30; Stop 09/24/17 at 08:41; Status DC Vancomycin HCl 2 gm/Dextrose 500 ml @ 250 mls/hr 1X ONCE IV Last administered on 09/19/17 14:53; Start 09/19/17 at 11:00; Stop 09/19/17 at 12 :59; Status DC Piperacillin Sod/ Tazobactam Sod (Zosyn) 3.375 gm Q6HRS IVP Last administered on 10/02/17 17:13; Start 09/19/17 at 11:00; Stop 10/02/17 at 19:14; Status DC Budesonide (Pulmicort) 0.5 mg RTBID NEB Last administered on 10/06/17 08:04; Start 09/19/17 at 20:00 Budesonide (Pulmicort) 0.5 mg 1X ONCE NEB Last administered on 09/19/17 12: 50; Start 09/19/17 at 10:45; Stop 09/19/17 at 10:46; Status DC Pantoprazole Sodium (PROTONIX VIAL for IV PUSH) 40 mg DAILYAC IVP Last administered on 10/03/17 08:23; Start 09/19/17 at 11:30; Stop 10/04/17 at 08 :51; Status DC Furosemide (Lasix) 40 mg DAILY IVP ; Start 09/19/17 at 11:00; Stop 09/20/17 at 13:20; Status DC Methylprednisolone Sodium Succinate (SOLU-Medrol 125MG VIAL) 125 mg 1X ONCE IV Last administered on 09/19/17 13:23; Start 09/19/17 at 10:45; Stop at 10:46; Status DC Prednisone (Prednisone) 40 mg DAILY PO ; Start 09/19/17 at 11:00; Stop at 09:02; Status DC Methylprednisolone Sodium Succinate (SOLU-Medrol 125MG VIAL) 125 mg Q8HRS IV Last administered on 09/23/17 05:43; Start 09/19/17 at 14:00; Stop 09/23/17 at 10:40; Status DC Midazolam HCl 100 ml @ 0 mls/hr CONT PRN IV SEE I/O RECORD; Start 09/19/17 at 11:00; Stop 09/19/17 at 12:51; Status DC Midazolam HCl (Versed) 5 mg 1X ONCE IV ; Start 09/19/17 at 11:00; Stop at 11:01; Status DC Fentanyl Citrate (Fentanyl 2ml Vial) 50 mcg 1X ONCE IV ; Start 09/19/17 at 11: 00; Stop 09/19/17 at 11:01; Status DC Midazolam HCl 100 ml @ As Directed STK-MED ONCE IV ; Start 09/19/17 at 10:55; Stop 09/19/17 at 10:56; Status DC Midazolam HCl (Versed) 5 mg STK-MED ONCE .ROUTE ; Start 09/19/17 at 10:55; Stop 09/19/17 at 10:56; Status DC Propofol 100 ml @ As Directed STK-MED ONCE IV ; Start 09/19/17 at 10:59; Stop 09/19/17 at 11:00; Status DC Norepinephrine Bitartrate 250 ml @ As Directed STK-MED ONCE IV ; Start at 10:59; Stop 09/19/17 at 11:00; Status DC Furosemide (Lasix) 20 mg 1X ONCE IVP ; Start 09/19/17 at 11:15; Stop at 11:16; Status DC Vecuronium [place] (Norcuron Bolus) 10 mg STK-MED ONCE IV ; Start 09/19/17 at 11:21; Stop 09/19/17 at 11:22; Status DC Fentanyl Citrate 30 ml @ 0 mls/hr CONT PRN IV PROTOCOL Last administered on 15:08; Start 09/19/17 at 11:30; Stop 09/23/17 at 15:24; Status DC Vecuronium [place] (Norcuron Bolus) 6 mg 1X ONCE IV Last administered on 09/19 11:42; Start 09/19/17 at 11:30; Stop 09/19/17 at 11:39; Status DC Propofol 10 ml @ 0 mls/hr 1X ONCE IV Last administered on 09/19/17 11:30; Start 09/19/17 at 11:30; Stop 09/19/17 at 11:39; Status DC Midazolam HCl 100 ml @ 0 mls/hr CONT PRN IV SEE I/O RECORD Last administered on 09/27/17 00:40; Start 09/19/17 at 11:30; Stop 09/30/17 at 09:21; Status DC Norepinephrine Bitartrate 250 ml @ 0 mls/hr CONT PRN IV SEE I/O RECORD Last administered on 09/24/17 05:18; Start 09/19/17 at 11:30; Stop 09/30/17 at 09 :21; Status DC Succinylcholine Chloride (Anectine) 100 mg 1X ONCE IV Last administered on 11:42; Start 09/19/17 at 11:30; Stop 09/19/17 at 11:39; Status DC Sodium Bicarbonate 50 meq 1X ONCE IV Last administered on 09/19/17 13:23; Start 09/19/17 at 12:45; Stop 09/19/17 at 12:46; Status DC Sodium Bicarbonate 50 meq 1X ONCE IV Last administered on 09/19/17 13:23; Start 09/19/17 at 12:45; Stop 09/19/17 at 12:46; Status DC Lidocaine/Sodium Bicarbonate (Buffered Lidocaine 1%) 20 ml STK-MED ONCE IJ ; Start 09/19/17 at 13:34; Stop 09/19/17 at 13:35; Status DC Vecuronium [place] (Norcuron Bolus) 10 mg 1X ONCE IV Last administered on 15:05; Start 09/19/17 at 14:00; Stop 09/19/17 at 14:02; Status DC Lidocaine/Sodium Bicarbonate (Buffered Lidocaine 1%) 3 ml 1X ONCE IJ ; Start 09/19/17 at 14:45; Stop 09/19/17 at 14:46; Status DC Vancomycin HCl 1.25 gm/Dextrose 250 ml @ 166.667 mls/hr Q24H IV Last administered on 09/23/17 17:19; Start 09/20/17 at 15:00; Stop 09/24/17 at 08 :35; Status DC Vancomycin HCl 1 each 1X ONCE MC Last administered on 09/21/17 14:30; Start 09/21/17 at 14:30; Stop 09/21/17 at 14:31; Status DC Azithromycin 500 mg/Sodium Chloride 250 ml @ 250 mls/hr Q24H IV Last administered on 09/23/17 17:19; Start 09/19/17 at 16:30; Stop 09/24/17 at 08 :35; Status DC Norepinephrine Bitartrate (Levophed 8mg/ 250ml Premix Drip) 8 mg STK-MED ONCE IV ; Start 09/19/17 at 11:00; Stop 09/20/17 at 08:44; Status DC Midazolam HCl (Versed) 5 mg STK-MED ONCE .ROUTE ; Start 09/19/17 at 11:00; Stop 09/20/17 at 08:44; Status DC Amino Acids/ Glycerin/ Electrolytes 1,000 ml @ 80 mls/hr [id number] IV Last administered on 09/21/17 01:21; Start 09/20/17 at 10:00; Stop 09/22/17 at 07 :02; Status DC Info 1 each PRN DAILY PRN MC SEE COMMENTS; Start 09/20/17 at 10:00; Stop at 12:14; Status DC Furosemide (Lasix) 20 mg 1X ONCE IVP Last administered on 09/20/17 10:21; Start 09/20/17 at 10:15; Stop 09/20/17 at 10:18; Status DC Info 1 each PRN DAILY PRN MC SEE COMMENTS; Start 09/20/17 at 11:00; Status UNV Vecuronium [place] (Norcuron Bolus) 10 mg 1X ONCE IV Last administered on 12:03; Start 09/20/17 at 11:15; Stop 09/20/17 at 11:24; Status DC Atropine Sulfate 0.5 mg STK-MED ONCE .ROUTE ; Start 09/20/17 at 11:47; Stop at 11:48; Status DC Epinephrine HCl (EPINEPHrine SYRINGE) 1 mg STK-MED ONCE .ROUTE ; Start at 11:47; Stop 09/20/17 at 11:48; Status DC Atropine Sulfate 0.5 mg STK-MED ONCE .ROUTE ; Start 09/20/17 at 12:00; Stop at 09:11; Status DC Epinephrine HCl (EPINEPHrine SYRINGE) 1 mg STK-MED ONCE .ROUTE ; Start at 12:00; Stop 09/21/17 at 09:11; Status DC Furosemide (Lasix) 20 mg DAILY IVP ; Start 09/21/17 at 11:15; Stop 09/21/17 at 11:20; Status DC Lorazepam (Ativan) 1 mg PRN Q1HR PRN IV ANXIETY / AGITATION Last administered on 09/28/17 17:04; Start 09/21/17 at 11:15; Stop 09/30/17 at 09:21; Status DC Albumin Human 250 ml @ 62.5 mls/hr 1X ONCE IV Last administered on 11:57; Start 09/21/17 at 11:30; Stop 09/21/17 at 15:29; Status DC Albumin Human 250 ml @ 62.5 mls/hr 1X ONCE IV Last administered on 14:29; Start 09/21/17 at 11:30; Stop 09/21/17 at 15:29; Status DC Micafungin Sodium 100 mg/Dextrose 100 ml @ 100 mls/hr Q24H IV Last administered on 09/23/17 13:17; Start 09/21/17 at 12:00; Stop 09/24/17 at 08 :35; Status DC Vecuronium [place] (Norcuron Bolus) 4 mg PRN Q4HRS PRN IV AGITATION; Start at 15:00; Stop 09/30/17 at 09:21; Status DC Dexmedetomidine HCl 200 mcg/ Sodium Chloride 50 ml @ 0 mls/hr CONT PRN IV PER PROTOCOL Last administered on 09/21/17 15:54; Start 09/21/17 at 15:30; Stop 09/30/17 at 09:21; Status DC Sodium Chloride 500 ml @ 500 mls/hr 1X PRN PRN IV SEE COMMENTS; Start at 15:30 Atropine Sulfate 0.5 mg PRN Q5MIN PRN IV SEE COMMENTS; Start 09/21/17 at 15:30 Propofol 100 ml @ 0 mls/hr CONT PRN IV PER PROTOCOL Last administered on 14:35; Start 09/21/17 at 16:45; Stop 09/30/17 at 09:21; Status DC Furosemide (Lasix) 20 mg 1X ONCE IVP Last administered on 09/22/17 09:41; Start 09/22/17 at 10:15; Stop 09/22/17 at 10:16; Status DC Chlorhexidine Gluconate (Peridex) 15 ml BID MM Last administered on 09/29/17 08:07; Start 09/22/17 at 21:00; Stop 09/29/17 at 20:22; Status DC Furosemide (Lasix) 20 mg 1X ONCE IVP Last administered on 09/22/17 17:55; Start 09/22/17 at 18:00; Stop 09/22/17 at 18:01; Status DC Furosemide (Lasix) 20 mg DAILY IVP Last administered on 09/23/17 13:16; Start 09/23/17 at 11:30; Stop 09/24/17 at 08:40; Status DC Methylprednisolone Sodium Succinate (SOLU-Medrol 125MG VIAL) 80 mg Q8HRS IV Last administered on 09/30/17 05:47; Start 09/23/17 at 14:00; Stop 09/30/17 at 09:26; Status DC Fentanyl Citrate 55 ml @ 0 mls/hr CONT PRN PRN IV PER PROTOCOL Last administered on 09/28/17 19:13; Start 09/23/17 at 12:15; Stop 09/30/17 at 09 :21; Status DC Dextrose 1,000 ml @ 25 mls/hr Q24H IV Last administered on 09/28/17 12:59; Start 09/23/17 at 11:45; Stop 10/04/17 at 13:14; Status DC Enoxaparin Sodium (Lovenox Per Pharmacy Prophylaxis Dosing) 1 each PRN DAILY PRN MC SEE COMMENTS; Start 09/23/17 at 16:30; Stop 09/24/17 at 08:41; Status DC Enoxaparin Sodium (Lovenox 40mg Syringe) 40 mg Q24H SQ Last administered on 18:10; Start 09/23/17 at 17:00 Bisacodyl (Dulcolax Tab) 5 mg PRN DAILY PRN PO CONSTIPATION; Start 09/24/17 at 09:30 Insulin Aspart (NovoLOG) 0-5 UNITS Q6HRS SQ Last administered on 09/29/17 12: 27; Start 09/25/17 at 18:00; Stop 10/01/17 at 02:54; Status DC Dextrose (Dextrose 50%-Water Syringe) 12.5 gm PRN Q15MIN PRN IV SEE COMMENTS; Start 09/25/17 at 12:30; Stop 10/01/17 at 02:54; Status DC Dextrose/Sodium Chloride 1,000 ml @ 75 mls/hr [id number] IV Last administered on 10/02/17 01:23; Start 09/29/17 at 19:00; Stop 10/02/17 at 09:07; Status DC Ondansetron HCl (Zofran) 4 mg PRN Q6HRS PRN IV NAUSEA/VOMITING Last administered on 10/01/17 20:33; Start 09/29/17 at 20:00 Albuterol/ Ipratropium (Duoneb) 3 ml TID NEB Last administered on 10/06/17 08: 04; Start 09/30/17 at 14:00 Methylprednisolone Sodium Succinate (SOLU-Medrol 125MG VIAL) 80 mg Q12HR IV Last administered on 10/01/17 08:56; Start 09/30/17 at 21:00; Stop 10/01/17 at 10:22; Status DC Iron Sucrose 500 mg/Sodium Chloride 275 ml @ 78.571 mls/ hr 1X ONCE IV Last administered on 10/01/17 10:08; Start 10/01/17 at 09:30; Stop 10/01/17 at 12 :59; Status DC Methylprednisolone Sodium Succinate (SOLU-Medrol 40MG VIAL) 40 mg Q12HR IV ; Start 10/01/17 at 21:00; Stop 10/01/17 at 21:00; Status DC Alprazolam (Xanax) 0.25 mg PRN Q8HRS PRN PO ANXIETY / AGITATION Last administered on 10/04/17 21:09; Start 10/01/17 at 10:30 Quetiapine Fumarate (SEROquel) 50 mg HS PO Last administered on 10/05/17 20:43 ; Start 10/01/17 at 21:00 Methylprednisolone Sodium Succinate (SOLU-Medrol 40MG VIAL) 40 mg QHS IV Last administered on 10/01/17 20:32; Start 10/01/17 at 21:00; Stop 10/02/17 at 10 :36; Status DC Saliva Substitute (Biotene Moisturizing Mouth) 2 spray PRN Q15MIN PRN PO DRY MOUTH; Start 10/02/17 at 09:15 Info 1 each PRN DAILY PRN MC SEE COMMENTS Last administered on 10/05/17 13:48 ; Start 10/02/17 at 09:15 Amino Acids/ Glycerin/ Electrolytes 1,000 ml @ 100 mls/hr Q10H IV Last administered on 10/02/17 09:57; Start 10/02/17 at 10:00; Stop 10/02/17 at 19 :59; Status DC Methylprednisolone Sodium Succinate (SOLU-Medrol 40MG VIAL) 20 mg QHS IV Last administered on 10/02/17 21:38; Start 10/02/17 at 21:00; Stop 10/03/17 at 12 :46; Status DC Sodium Acetate 40 meq/Potassium Chloride 50 meq/ Potassium Phosphate 13.6 mmol/ Magnesium Sulfate 10 meq/ Calcium Gluconate 10 meq/ Multivitamins 10 ml/Chromium / Copper/Manganese/ Seleni/Zn 1 ml/ Total Parenteral Nutrition/Amino Acids/ Dextrose/ Fat Emulsion Intravenous 1,512 ml @ 63 mls/hr TPN CONT IV Last administered on 10/02/17 21:37; Start 10/02/17 at 22:00; Stop 10/03/17 at 21 :59; Status DC Morphine Sulfate 2 mg PRN Q2HR PRN IV SEVERE PAIN Last administered on 01:33; Start 10/03/17 at 06:00 Lorazepam (Ativan) 1 mg PRN Q4HRS PRN IV ANXIETY / AGITATION Last administered on 10/04/17 01:15; Start 10/03/17 at 06:00 Potassium Phosphate 13.6 mmol/Sodium Chloride 104.5333 ml @ 52.267 m... Q2H IV Last administered on 10/03/17 17:28; Start 10/03/17 at 12:00; Stop at 15:59; Status DC Potassium Acetate 70 meq/Potassium Phosphate 13.6 mmol/Magnesium Sulfate 10 meq / Calcium Gluconate 10 meq/ Multivitamins 10 ml/Chromium/ Copper/Manganese/ Seleni/Zn 1 ml/ Total Parenteral Nutrition/Amino Acids/Dextrose/ Fat Emulsion Intravenous 1,992 ml @ 83 mls/hr TPN CONT IV Last administered on 10/03/17 22:00; Start 10/03/17 at 22:00; Stop 10/04/17 at 21:59; Status DC Vitamin A/Vitamin D (Vitamin A & D Ointment) 1 joe PRN BID PRN TP SKIN PROTECTION Last administered on 10/04/17 01:28; Start 10/03/17 at 14:00 Pantoprazole Sodium (Protonix) 40 mg DAILYAC PO Last administered on 10/05/17 09:26; Start 10/05/17 at 07:30 Simethicone (Gas-X) 80 mg PRN AFTMEALHC PRN PO GAS / BLOATING Last administered on 10/04/17 21:09; Start 10/04/17 at 09:00 Polyethylene Glycol (miraLAX PACKET) 17 gm PRN DAILY PRN PO CONSTIPATION; Start 10/04/17 at 09:00 Potassium Acetate 70 meq/Potassium Phosphate 13.6 mmol/Magnesium Sulfate 10 meq / Calcium Gluconate 10 meq/ Multivitamins 10 ml/Chromium/ Copper/Manganese/ Seleni/Zn 1 ml/ Total Parenteral Nutrition/Amino Acids/Dextrose/ Fat Emulsion Intravenous 1,992 ml @ 83 mls/hr TPN CONT IV Last administered on 10/05/17 00:02; Start 10/04/17 at 22:00; Stop 10/05/17 at 21:59; Status DC Iohexol (Omnipaque 300 Mg/ml) 75 ml 1X ONCE IV Last administered on 16:25; Start 10/04/17 at 15:30; Stop 10/04/17 at 15:31; Status DC Info (Do NOT chart on this entry -- for MONITORING) 1 each PRN DAILY PRN MC SEE COMMENTS; Start 10/04/17 at 15:45; Stop 10/06/17 at 15:44 Loperamide HCl (Imodium) 2 mg PRN Q1HR PRN PEG DIARRHEA Last administered on 12:22; Start 10/05/17 at 07:00 Furosemide (Lasix) 20 mg DAILY PO Last administered on 10/05/17 09:27; Start 10/05/17 at 09:00 Potassium Acetate 70 meq/Potassium Phosphate 13.6 mmol/Magnesium Sulfate 10 meq / Calcium Gluconate 10 meq/ Multivitamins 10 ml/Chromium/ Copper/Manganese/ Seleni/Zn 1 ml/ Total Parenteral Nutrition/Amino Acids/Dextrose/ Fat Emulsion Intravenous 1,600 ml @ 66.667 mls/ hr TPN CONT IV Last administered on 22:42; Start 10/05/17 at 22:00; Stop 10/06/17 at 21:59 Dicyclomine HCl (Bentyl) 10 mg PRN Q6HRS PRN PO MILD PAIN Last administered on 10/06/17 02:09; Start 10/05/17 at 17:15 Active Scripts Active Reported Gabapentin 300 Mg Capsule 300 Mg PO TID Cymbalta (Duloxetine Hcl) 60 Mg Capsule. 1 Cap PO BID Hydrochlorothiazide Tablet (Hydrochlorothiazide) 25 Mg Tablet 1 Tab PO DAILY Xanax (Alprazolam) 1 Mg Tablet 1 Tab PO TID PRN Vitals/I & O Vital Sign - Last 24 Hours 10/05/17 10/05/17 10/05/17 10/05/17 11:00 12:20 15:00 19:00 Temp 97.6 97.6 97.9 97.6 97.6 97.9 Pulse 91 99 99 Resp 20 20 20 B/P (MAP) 147/86 (106) 138/80 (99) 118/80 (93) Pulse Ox 99 100 98 O2 Delivery Room Air Room Air Room Air Room Air 10/05/17 10/05/17 10/05/17 10/06/17 19:37 20:15 23:51 03:37 Temp 97.7 97.7 97.7 97.7 Pulse 109 93 Resp 18 19 B/P (MAP) 114/76 (89) 108/67 (81) Pulse Ox 97 97 98 O2 Delivery Room Air Room Air Room Air Room Air 10/06/17 10/06/17 10/06/17 10/06/17 07:06 08:06 08:07 08:16 Temp 97.9 97.9 Pulse 88 Resp 19 B/P (MAP) 112/62 (79) Pulse Ox 100 96 96 O2 Delivery Room Air Room Air Room Air Room Air Intake and Output 10/05/17 10/05/17 10/06/17 15:00 23:00 07:00 Intake Total 200 ml 150 ml Output Total 2200 ml 1450 ml Balance -2000 ml -1300 ml ABELARDO MOORE MD Oct 06, 2017 10:09
--- NOTE | 2017-10-06 11:01 | PDOC ---
PROGRESS NOTES Subjective Subjective No new complaints. Objective Objective Vital Signs Date Time Temp Pulse Resp B/P (MAP) Pulse Ox O2 Delivery O2 Flow Rate FiO2 10/06/17 08:16 Room Air 10/06/17 08:07 96 10/06/17 07:06 97.9 88 19 112/62 (79) 97.9 10/03/17 10:46 2.0 Intake and Output 10/06/17 07:00 Intake Total 350 ml Output Total 3650 ml Balance -3300 ml Intake Oral 350 ml Output Urine Total 3650 ml Physical Exam Physical Exam She is alert and comfortable but continues with generalized muscle weakness and edema of dependent parts and bilateral foot drop.She has not received bilateral ankle foot orthoses,I have ordered for her foot drop.I am not sure why patient' s that need the orthotic equipment,needs to wait until discharge,to get the braces they need.Their health insurance should pay for them.Are we denying the equipment they need that can help them ease pain and help them to get around and go home earlier? Assessment Assessment Problems Medical Problems: (1) Dyspnea Status: Acute (2) Hypoalbuminemia Status: Acute (3) Metabolic acidosis Status: Acute (4) Pneumonia Status: Acute Plan Plan of Care To continue present rehab efforts as tolerated.To at least get PRAFO boots to help her avoid getting tight heel cords. Comment Review of Relevant I have reviewed the following items tha (where applicable) has been applied. Labs Laboratory Tests Test 10/05/17 05:00 10/05/17 08:00 10/06/17 05:00 White Blood Count 15.1 x10^3/uL (4.0-11.0) 12.4 x10^3/uL (4.0-11.0) Red Blood Count 2.59 x10^6/uL (3.50-5.40) 2.51 x10^6/uL (3.50-5.40) Hemoglobin 7.4 g/dL (12.0-15.5) 7.2 g/dL (12.0-15.5) Hematocrit 23.3 % (36.0-47.0) 22.4 % (36.0-47.0) Mean Corpuscular Volume 90 fL (79-100) 89 fL (79-100) Mean Corpuscular Hemoglobin 29 pg (25-35) 29 pg (25-35) Mean Corpuscular Hemoglobin Concent 32 g/dL (31-37) 32 g/dL (31-37) Red Cell Distribution Width 24.2 % (11.5-14.5) 25.8 % (11.5-14.5) Platelet Count 296 x10^3/uL (140-400) 257 x10^3/uL (140-400) Neutrophils (%) (Auto) 81 % (31-73) 82 % (31-73) Lymphocytes (%) (Auto) 7 % (24-48) 6 % (24-48) Monocytes (%) (Auto) 6 % (0-9) 4 % (0-9) Eosinophils (%) (Auto) 7 % (0-3) 7 % (0-3) Basophils (%) (Auto) 0 % (0-3) 1 % (0-3) Neutrophils # (Auto) 12.2 x10^3uL (1.8-7.7) 10.2 x10^3uL (1.8-7.7) Lymphocytes # (Auto) 1.0 x10^3/uL (1.0-4.8) 0.8 x10^3/uL (1.0-4.8) Monocytes # (Auto) 0.8 x10^3/uL (0.0-1.1) 0.5 x10^3/uL (0.0-1.1) Eosinophils # (Auto) 1.0 x10^3/uL (0.0-0.7) 0.8 x10^3/uL (0.0-0.7) Basophils # (Auto) 0.1 x10^3/uL (0.0-0.2) 0.1 x10^3/uL (0.0-0.2) Sodium Level 143 mmol/L (136-145) 141 mmol/L (136-145) Potassium Level 4.2 mmol/L (3.5-5.1) 3.8 mmol/L (3.5-5.1) Chloride Level 116 mmol/L (98-107) 111 mmol/L (98-107) Carbon Dioxide Level 17 mmol/L (21-32) 19 mmol/L (21-32) Anion Gap 10 (6-14) 11 (6-14) Blood Urea Nitrogen 28 mg/dL (7-20) 25 mg/dL (7-20) Creatinine 0.6 mg/dL (0.6-1.0) 0.7 mg/dL (0.6-1.0) Estimated GFR (Cockcroft-Gault) 102.0 85.4 BUN/Creatinine Ratio 47 (6-20) 36 (6-20) Glucose Level 101 mg/dL (70-99) 101 mg/dL (70-99) Calcium Level 8.1 mg/dL (8.5-10.1) 8.4 mg/dL (8.5-10.1) Phosphorus Level 2.6 mg/dL (2.6-4.7) Magnesium Level 2.0 mg/dL (1.8-2.4) Total Bilirubin 0.4 mg/dL (0.2-1.0) 0.4 mg/dL (0.2-1.0) Aspartate Amino Transf (AST/SGOT) 17 U/L (15-37) 21 U/L (15-37) Alanine Aminotransferase (ALT/SGPT) 31 U/L (14-59) 41 U/L (14-59) Alkaline Phosphatase 42 U/L (46-116) 53 U/L (46-116) Total Protein 4.4 g/dL (6.4-8.2) 5.0 g/dL (6.4-8.2) Albumin 1.9 g/dL (3.4-5.0) 2.1 g/dL (3.4-5.0) Albumin/Globulin Ratio 0.8 (1.0-1.7) 0.7 (1.0-1.7) Triglycerides Level 86 mg/dL (0-150) Cholesterol Level 88 mg/dL (0-200) LDL Cholesterol, Calculated 38 mg/dL (0-100) VLDL Cholesterol, Calculated 17 mg/dL (0-40) Non-HDL Cholesterol Calculated 55 mg/dL (0-129) HDL Cholesterol 33 mg/dL (40-60) Cholesterol/HDL Ratio 2.7 Lactic Acid Level 1.0 mmol/L (0.4-2.0) Laboratory Tests Test 10/06/17 05:00 White Blood Count 12.4 x10^3/uL (4.0-11.0) Red Blood Count 2.51 x10^6/uL (3.50-5.40) Hemoglobin 7.2 g/dL (12.0-15.5) Hematocrit 22.4 % (36.0-47.0) Mean Corpuscular Volume 89 fL (79-100) Mean Corpuscular Hemoglobin 29 pg (25-35) Mean Corpuscular Hemoglobin Concent 32 g/dL (31-37) Red Cell Distribution Width 25.8 % (11.5-14.5) Platelet Count 257 x10^3/uL (140-400) Neutrophils (%) (Auto) 82 % (31-73) Lymphocytes (%) (Auto) 6 % (24-48) Monocytes (%) (Auto) 4 % (0-9) Eosinophils (%) (Auto) 7 % (0-3) Basophils (%) (Auto) 1 % (0-3) Neutrophils # (Auto) 10.2 x10^3uL (1.8-7.7) Lymphocytes # (Auto) 0.8 x10^3/uL (1.0-4.8) Monocytes # (Auto) 0.5 x10^3/uL (0.0-1.1) Eosinophils # (Auto) 0.8 x10^3/uL (0.0-0.7) Basophils # (Auto) 0.1 x10^3/uL (0.0-0.2) Sodium Level 141 mmol/L (136-145) Potassium Level 3.8 mmol/L (3.5-5.1) Chloride Level 111 mmol/L (98-107) Carbon Dioxide Level 19 mmol/L (21-32) Anion Gap 11 (6-14) Blood Urea Nitrogen 25 mg/dL (7-20) Creatinine 0.7 mg/dL (0.6-1.0) Estimated GFR (Cockcroft-Gault) 85.4 BUN/Creatinine Ratio 36 (6-20) Glucose Level 101 mg/dL (70-99) Calcium Level 8.4 mg/dL (8.5-10.1) Total Bilirubin 0.4 mg/dL (0.2-1.0) Aspartate Amino Transf (AST/SGOT) 21 U/L (15-37) Alanine Aminotransferase (ALT/SGPT) 41 U/L (14-59) Alkaline Phosphatase 53 U/L (46-116) Total Protein 5.0 g/dL (6.4-8.2) Albumin 2.1 g/dL (3.4-5.0) Albumin/Globulin Ratio 0.7 (1.0-1.7) Microbiology 09/17/17 Blood Culture - Final, Complete NO GROWTH AFTER 5 DAYS 09/20/17 AFB Specimen Processing Tissue - Final, Resulted 09/20/17 Acid Fast Bacilli Culture, Resulted Pending 09/20/17 Gram Stain - Final, Resulted 09/20/17 Fungal Culture - Preliminary, Resulted 09/20/17 Fungal Culture Result 1 - Preliminary, Resulted Medications Current Medications Sodium Chloride 1,000 ml @ 125 mls/hr 1X ONCE IV Last administered on 15:54; Start 09/17/17 at 15:15; Stop 09/17/17 at 23:14; Status DC Ondansetron HCl (Zofran) 4 mg PRN Q8HRS PRN IV NAUSEA/VOMITING; Start at 16:30; Stop 09/18/17 at 16:29; Status DC Ceftriaxone Sodium 50 ml @ 0 mls/hr 1X ONCE IV Last administered on 17:33; Start 09/17/17 at 16:45; Stop 09/17/17 at 16:46; Status DC Azithromycin 250 ml @ 250 mls/hr 1X ONCE IV Last administered on 09/17/17 22:38; Start 09/17/17 at 16:30; Stop 09/17/17 at 17:29; Status DC Albuterol/ Ipratropium (Duoneb) 3 ml 1X ONCE NEB Last administered on 17:00; Start 09/17/17 at 16:45; Stop 09/17/17 at 16:46; Status DC Potassium Chloride (Klor-Con) 40 meq 1X ONCE PO Last administered on 16:57; Start 09/17/17 at 16:45; Stop 09/17/17 at 16:46; Status DC Azithromycin (Zithromax) 250 mg DAILY PO Last administered on 09/18/17 10:25 ; Start 09/18/17 at 09:00; Stop 09/19/17 at 10:30; Status DC Ceftriaxone Sodium 1 gm/ Dextrose 50 ml @ 100 mls/hr Q24H IV ; Start 09/17/17 at 17:15; Status UNV Albuterol/ Ipratropium (Duoneb) 3 ml Q4HRS NEB Last administered on 09/30/17 08:11; Start 09/17/17 at 20:00; Stop 09/30/17 at 09:21; Status DC Ceftriaxone Sodium (Rocephin) 1 gm Q24H IVP Last administered on 09/18/17 17: 55; Start 09/18/17 at 16:00; Stop 09/19/17 at 10:30; Status DC Guaifenesin (Robitussin Dm) 10 ml PRN Q6HRS PRN PO COUGH; Start 09/17/17 at 17 :15; Stop 09/30/17 at 09:21; Status DC Sodium Chloride 1,000 ml @ 125 mls/hr 1X ONCE IV Last administered on 17:45; Start 09/17/17 at 17:15; Stop 09/17/17 at 22:12; Status DC Info (Do NOT chart on this placeholder) 1 each 1X ONCE MC ; Start 09/17/17 at 19:00; Stop 09/17/17 at 19:01; Status UNV Influenza Virus Vaccine Quadrival (Fluarix Quad [id number] Syringe) 0.5 ml ONCE ONCE VAX IM Last administered on 09/17/17 21:00; Start 09/17/17 at 21:00; Stop 09/17/17 at 21:01; Status DC Sodium Chloride 1,000 ml @ 130 mls/hr 1X ONCE IV Last administered on 22:31; Start 09/17/17 at 22:30; Stop 09/18/17 at 06:11; Status DC Sodium Bicarbonate 50 meq 1X ONCE IV Last administered on 09/17/17 22:31; Start 09/17/17 at 22:30; Stop 09/17/17 at 22:31; Status DC Alprazolam (Xanax) 1 mg PRN TID PRN PO ANXIETY Last administered on 09/19/17 02:19; Start 09/17/17 at 22:30; Stop 09/30/17 at 09:21; Status DC Furosemide (Lasix) 20 mg 1X ONCE IVP Last administered on 09/18/17 06:24; Start 09/18/17 at 06:30; Stop 09/18/17 at 06:31; Status DC Potassium Chloride (Klor-Con) 40 meq 1X ONCE PO Last administered on 10:25; Start 09/18/17 at 09:00; Stop 09/18/17 at 09:01; Status DC Iron Sucrose 500 mg/Sodium Chloride 275 ml @ 78.571 mls/ hr 1X ONCE IV Last administered on 09/18/17 10:24; Start 09/18/17 at 09:00; Stop 09/18/17 at 12 :29; Status DC Furosemide (Lasix) 20 mg 1X ONCE IVP Last administered on 09/18/17 10:30; Start 09/18/17 at 10:00; Stop 09/18/17 at 10:22; Status DC Pantoprazole Sodium (Protonix) 40 mg DAILYAC PO Last administered on 10:47; Start 09/18/17 at 11:00; Stop 09/19/17 at 13:41; Status DC Furosemide (Lasix) 20 mg 1X ONCE IVP Last administered on 09/18/17 10:47; Start 09/18/17 at 10:45; Stop 09/18/17 at 10:46; Status DC Potassium Chloride (Klor-Con) 40 meq 1X ONCE PO ; Start 09/18/17 at 11:45; Stop 09/18/17 at 11:46; Status DC Oxycodone/ Acetaminophen (Percocet 5/325) 1 tab PRN Q6HRS PRN PO PAIN Last administered on 10/04/17 12:51; Start 09/18/17 at 12:15 Lorazepam (Ativan) 1 mg PRN Q4HRS PRN IV ANXIETY / AGITATION Last administered on 09/18/17 12:25; Start 09/18/17 at 12:15; Stop 09/18/17 at 13:34; Status DC Fentanyl Citrate (Fentanyl 2ml Vial) 50 mcg PRN Q2HR PRN IV PAIN Last administered on 09/19/17 04:09; Start 09/18/17 at 12:15; Stop 09/30/17 at 09 :21; Status DC Lorazepam (Ativan) 2 mg PRN Q4HRS PRN IV ANXIETY / AGITATION Last administered on 09/29/17 05:17; Start 09/18/17 at 13:30; Stop 09/30/17 at 09:21; Status DC Quetiapine Fumarate (SEROquel) 25 mg HS PO Last administered on 09/18/17 21: 03; Start 09/18/17 at 21:00; Stop 09/19/17 at 10:35; Status DC Haloperidol Lactate (Haldol) 5 mg PRN Q12HRS PRN IVP AGITATION; Start at 13:45 Lorazepam (Ativan) 1 mg PRN Q4HRS PRN IV ANXIETY / AGITATION; Start 09/19/17 at 10:15; Stop 09/19/17 at 10:18; Status DC Lorazepam (Ativan) 4 mg 1X ONCE IV ; Start 09/19/17 at 10:30; Stop 09/19/17 at 10:31; Status DC Vancomycin HCl (Vanco Per Pharmacy) 1 each PRN DAILY PRN MC SEE COMMENTS Last administered on 09/23/17 12:36; Start 09/19/17 at 10:30; Stop 09/24/17 at 08 :36; Status DC Piperacillin Sod/ Tazobactam Sod (Zosyn Per Pharmacy) 1 each PRN DAILY PRN MC SEE COMMENTS; Start 09/19/17 at 10:30; Stop 09/24/17 at 08:41; Status DC Vancomycin HCl 2 gm/Dextrose 500 ml @ 250 mls/hr 1X ONCE IV Last administered on 09/19/17 14:53; Start 09/19/17 at 11:00; Stop 09/19/17 at 12 :59; Status DC Piperacillin Sod/ Tazobactam Sod (Zosyn) 3.375 gm Q6HRS IVP Last administered on 10/02/17 17:13; Start 09/19/17 at 11:00; Stop 10/02/17 at 19:14; Status DC Budesonide (Pulmicort) 0.5 mg RTBID NEB Last administered on 10/06/17 08:04; Start 09/19/17 at 20:00 Budesonide (Pulmicort) 0.5 mg 1X ONCE NEB Last administered on 09/19/17 12: 50; Start 09/19/17 at 10:45; Stop 09/19/17 at 10:46; Status DC Pantoprazole Sodium (PROTONIX VIAL for IV PUSH) 40 mg DAILYAC IVP Last administered on 10/03/17 08:23; Start 09/19/17 at 11:30; Stop 10/04/17 at 08 :51; Status DC Furosemide (Lasix) 40 mg DAILY IVP ; Start 09/19/17 at 11:00; Stop 09/20/17 at 13:20; Status DC Methylprednisolone Sodium Succinate (SOLU-Medrol 125MG VIAL) 125 mg 1X ONCE IV Last administered on 09/19/17 13:23; Start 09/19/17 at 10:45; Stop at 10:46; Status DC Prednisone (Prednisone) 40 mg DAILY PO ; Start 09/19/17 at 11:00; Stop at 09:02; Status DC Methylprednisolone Sodium Succinate (SOLU-Medrol 125MG VIAL) 125 mg Q8HRS IV Last administered on 09/23/17 05:43; Start 09/19/17 at 14:00; Stop 09/23/17 at 10:40; Status DC Midazolam HCl 100 ml @ 0 mls/hr CONT PRN IV SEE I/O RECORD; Start 09/19/17 at 11:00; Stop 09/19/17 at 12:51; Status DC Midazolam HCl (Versed) 5 mg 1X ONCE IV ; Start 09/19/17 at 11:00; Stop at 11:01; Status DC Fentanyl Citrate (Fentanyl 2ml Vial) 50 mcg 1X ONCE IV ; Start 09/19/17 at 11: 00; Stop 09/19/17 at 11:01; Status DC Midazolam HCl 100 ml @ As Directed STK-MED ONCE IV ; Start 09/19/17 at 10:55; Stop 09/19/17 at 10:56; Status DC Midazolam HCl (Versed) 5 mg STK-MED ONCE .ROUTE ; Start 09/19/17 at 10:55; Stop 09/19/17 at 10:56; Status DC Propofol 100 ml @ As Directed STK-MED ONCE IV ; Start 09/19/17 at 10:59; Stop 09/19/17 at 11:00; Status DC Norepinephrine Bitartrate 250 ml @ As Directed STK-MED ONCE IV ; Start at 10:59; Stop 09/19/17 at 11:00; Status DC Furosemide (Lasix) 20 mg 1X ONCE IVP ; Start 09/19/17 at 11:15; Stop at 11:16; Status DC Vecuronium Marion (Norcuron Bolus) 10 mg STK-MED ONCE IV ; Start 09/19/17 at 11:21; Stop 09/19/17 at 11:22; Status DC Fentanyl Citrate 30 ml @ 0 mls/hr CONT PRN IV PROTOCOL Last administered on 15:08; Start 09/19/17 at 11:30; Stop 09/23/17 at 15:24; Status DC Vecuronium Marion (Norcuron Bolus) 6 mg 1X ONCE IV Last administered on 09/19 11:42; Start 09/19/17 at 11:30; Stop 09/19/17 at 11:39; Status DC Propofol 10 ml @ 0 mls/hr 1X ONCE IV Last administered on 09/19/17 11:30; Start 09/19/17 at 11:30; Stop 09/19/17 at 11:39; Status DC Midazolam HCl 100 ml @ 0 mls/hr CONT PRN IV SEE I/O RECORD Last administered on 09/27/17 00:40; Start 09/19/17 at 11:30; Stop 09/30/17 at 09:21; Status DC Norepinephrine Bitartrate 250 ml @ 0 mls/hr CONT PRN IV SEE I/O RECORD Last administered on 09/24/17 05:18; Start 09/19/17 at 11:30; Stop 09/30/17 at 09 :21; Status DC Succinylcholine Chloride (Anectine) 100 mg 1X ONCE IV Last administered on 11:42; Start 09/19/17 at 11:30; Stop 09/19/17 at 11:39; Status DC Sodium Bicarbonate 50 meq 1X ONCE IV Last administered on 09/19/17 13:23; Start 09/19/17 at 12:45; Stop 09/19/17 at 12:46; Status DC Sodium Bicarbonate 50 meq 1X ONCE IV Last administered on 09/19/17 13:23; Start 09/19/17 at 12:45; Stop 09/19/17 at 12:46; Status DC Lidocaine/Sodium Bicarbonate (Buffered Lidocaine 1%) 20 ml STK-MED ONCE IJ ; Start 09/19/17 at 13:34; Stop 09/19/17 at 13:35; Status DC Vecuronium Marion (Norcuron Bolus) 10 mg 1X ONCE IV Last administered on 15:05; Start 09/19/17 at 14:00; Stop 09/19/17 at 14:02; Status DC Lidocaine/Sodium Bicarbonate (Buffered Lidocaine 1%) 3 ml 1X ONCE IJ ; Start 09/19/17 at 14:45; Stop 09/19/17 at 14:46; Status DC Vancomycin HCl 1.25 gm/Dextrose 250 ml @ 166.667 mls/hr Q24H IV Last administered on 09/23/17 17:19; Start 09/20/17 at 15:00; Stop 09/24/17 at 08 :35; Status DC Vancomycin HCl 1 each 1X ONCE MC Last administered on 09/21/17 14:30; Start 09/21/17 at 14:30; Stop 09/21/17 at 14:31; Status DC Azithromycin 500 mg/Sodium Chloride 250 ml @ 250 mls/hr Q24H IV Last administered on 09/23/17 17:19; Start 09/19/17 at 16:30; Stop 09/24/17 at 08 :35; Status DC Norepinephrine Bitartrate (Levophed 8mg/ 250ml Premix Drip) 8 mg STK-MED ONCE IV ; Start 09/19/17 at 11:00; Stop 09/20/17 at 08:44; Status DC Midazolam HCl (Versed) 5 mg STK-MED ONCE .ROUTE ; Start 09/19/17 at 11:00; Stop 09/20/17 at 08:44; Status DC Amino Acids/ Glycerin/ Electrolytes 1,000 ml @ 80 mls/hr [id number] IV Last administered on 09/21/17 01:21; Start 09/20/17 at 10:00; Stop 09/22/17 at 07 :02; Status DC Info 1 each PRN DAILY PRN MC SEE COMMENTS; Start 09/20/17 at 10:00; Stop at 12:14; Status DC Furosemide (Lasix) 20 mg 1X ONCE IVP Last administered on 09/20/17 10:21; Start 09/20/17 at 10:15; Stop 09/20/17 at 10:18; Status DC Info 1 each PRN DAILY PRN MC SEE COMMENTS; Start 09/20/17 at 11:00; Status UNV Vecuronium Marion (Norcuron Bolus) 10 mg 1X ONCE IV Last administered on 12:03; Start 09/20/17 at 11:15; Stop 09/20/17 at 11:24; Status DC Atropine Sulfate 0.5 mg STK-MED ONCE .ROUTE ; Start 09/20/17 at 11:47; Stop at 11:48; Status DC Epinephrine HCl (EPINEPHrine SYRINGE) 1 mg STK-MED ONCE .ROUTE ; Start at 11:47; Stop 09/20/17 at 11:48; Status DC Atropine Sulfate 0.5 mg STK-MED ONCE .ROUTE ; Start 09/20/17 at 12:00; Stop at 09:11; Status DC Epinephrine HCl (EPINEPHrine SYRINGE) 1 mg STK-MED ONCE .ROUTE ; Start at 12:00; Stop 09/21/17 at 09:11; Status DC Furosemide (Lasix) 20 mg DAILY IVP ; Start 09/21/17 at 11:15; Stop 09/21/17 at 11:20; Status DC Lorazepam (Ativan) 1 mg PRN Q1HR PRN IV ANXIETY / AGITATION Last administered on 09/28/17 17:04; Start 09/21/17 at 11:15; Stop 09/30/17 at 09:21; Status DC Albumin Human 250 ml @ 62.5 mls/hr 1X ONCE IV Last administered on 11:57; Start 09/21/17 at 11:30; Stop 09/21/17 at 15:29; Status DC Albumin Human 250 ml @ 62.5 mls/hr 1X ONCE IV Last administered on 14:29; Start 09/21/17 at 11:30; Stop 09/21/17 at 15:29; Status DC Micafungin Sodium 100 mg/Dextrose 100 ml @ 100 mls/hr Q24H IV Last administered on 09/23/17 13:17; Start 09/21/17 at 12:00; Stop 09/24/17 at 08 :35; Status DC Vecuronium Marion (Norcuron Bolus) 4 mg PRN Q4HRS PRN IV AGITATION; Start at 15:00; Stop 09/30/17 at 09:21; Status DC Dexmedetomidine HCl 200 mcg/ Sodium Chloride 50 ml @ 0 mls/hr CONT PRN IV PER PROTOCOL Last administered on 09/21/17 15:54; Start 09/21/17 at 15:30; Stop 09/30/17 at 09:21; Status DC Sodium Chloride 500 ml @ 500 mls/hr 1X PRN PRN IV SEE COMMENTS; Start at 15:30 Atropine Sulfate 0.5 mg PRN Q5MIN PRN IV SEE COMMENTS; Start 09/21/17 at 15:30 Propofol 100 ml @ 0 mls/hr CONT PRN IV PER PROTOCOL Last administered on 14:35; Start 09/21/17 at 16:45; Stop 09/30/17 at 09:21; Status DC Furosemide (Lasix) 20 mg 1X ONCE IVP Last administered on 09/22/17 09:41; Start 09/22/17 at 10:15; Stop 09/22/17 at 10:16; Status DC Chlorhexidine Gluconate (Peridex) 15 ml BID MM Last administered on 09/29/17 08:07; Start 09/22/17 at 21:00; Stop 09/29/17 at 20:22; Status DC Furosemide (Lasix) 20 mg 1X ONCE IVP Last administered on 09/22/17 17:55; Start 09/22/17 at 18:00; Stop 09/22/17 at 18:01; Status DC Furosemide (Lasix) 20 mg DAILY IVP Last administered on 09/23/17 13:16; Start 09/23/17 at 11:30; Stop 09/24/17 at 08:40; Status DC Methylprednisolone Sodium Succinate (SOLU-Medrol 125MG VIAL) 80 mg Q8HRS IV Last administered on 09/30/17 05:47; Start 09/23/17 at 14:00; Stop 09/30/17 at 09:26; Status DC Fentanyl Citrate 55 ml @ 0 mls/hr CONT PRN PRN IV PER PROTOCOL Last administered on 09/28/17 19:13; Start 09/23/17 at 12:15; Stop 09/30/17 at 09 :21; Status DC Dextrose 1,000 ml @ 25 mls/hr Q24H IV Last administered on 09/28/17 12:59; Start 09/23/17 at 11:45; Stop 10/04/17 at 13:14; Status DC Enoxaparin Sodium (Lovenox Per Pharmacy Prophylaxis Dosing) 1 each PRN DAILY PRN MC SEE COMMENTS; Start 09/23/17 at 16:30; Stop 09/24/17 at 08:41; Status DC Enoxaparin Sodium (Lovenox 40mg Syringe) 40 mg Q24H SQ Last administered on 18:10; Start 09/23/17 at 17:00 Bisacodyl (Dulcolax Tab) 5 mg PRN DAILY PRN PO CONSTIPATION; Start 09/24/17 at 09:30 Insulin Aspart (NovoLOG) 0-5 UNITS Q6HRS SQ Last administered on 09/29/17 12: 27; Start 09/25/17 at 18:00; Stop 10/01/17 at 02:54; Status DC Dextrose (Dextrose 50%-Water Syringe) 12.5 gm PRN Q15MIN PRN IV SEE COMMENTS; Start 09/25/17 at 12:30; Stop 10/01/17 at 02:54; Status DC Dextrose/Sodium Chloride 1,000 ml @ 75 mls/hr [id number] IV Last administered on 10/02/17 01:23; Start 09/29/17 at 19:00; Stop 10/02/17 at 09:07; Status DC Ondansetron HCl (Zofran) 4 mg PRN Q6HRS PRN IV NAUSEA/VOMITING Last administered on 10/01/17 20:33; Start 09/29/17 at 20:00 Albuterol/ Ipratropium (Duoneb) 3 ml TID NEB Last administered on 10/06/17 08: 04; Start 09/30/17 at 14:00 Methylprednisolone Sodium Succinate (SOLU-Medrol 125MG VIAL) 80 mg Q12HR IV Last administered on 10/01/17 08:56; Start 09/30/17 at 21:00; Stop 10/01/17 at 10:22; Status DC Iron Sucrose 500 mg/Sodium Chloride 275 ml @ 78.571 mls/ hr 1X ONCE IV Last administered on 10/01/17 10:08; Start 10/01/17 at 09:30; Stop 10/01/17 at 12 :59; Status DC Methylprednisolone Sodium Succinate (SOLU-Medrol 40MG VIAL) 40 mg Q12HR IV ; Start 10/01/17 at 21:00; Stop 10/01/17 at 21:00; Status DC Alprazolam (Xanax) 0.25 mg PRN Q8HRS PRN PO ANXIETY / AGITATION Last administered on 10/04/17 21:09; Start 10/01/17 at 10:30 Quetiapine Fumarate (SEROquel) 50 mg HS PO Last administered on 10/05/17 20:43 ; Start 10/01/17 at 21:00 Methylprednisolone Sodium Succinate (SOLU-Medrol 40MG VIAL) 40 mg QHS IV Last administered on 10/01/17 20:32; Start 10/01/17 at 21:00; Stop 10/02/17 at 10 :36; Status DC Saliva Substitute (Biotene Moisturizing Mouth) 2 spray PRN Q15MIN PRN PO DRY MOUTH; Start 10/02/17 at 09:15 Info 1 each PRN DAILY PRN MC SEE COMMENTS Last administered on 10/05/17 13:48 ; Start 10/02/17 at 09:15 Amino Acids/ Glycerin/ Electrolytes 1,000 ml @ 100 mls/hr Q10H IV Last administered on 10/02/17 09:57; Start 10/02/17 at 10:00; Stop 10/02/17 at 19 :59; Status DC Methylprednisolone Sodium Succinate (SOLU-Medrol 40MG VIAL) 20 mg QHS IV Last administered on 10/02/17 21:38; Start 10/02/17 at 21:00; Stop 10/03/17 at 12 :46; Status DC Sodium Acetate 40 meq/Potassium Chloride 50 meq/ Potassium Phosphate 13.6 mmol/ Magnesium Sulfate 10 meq/ Calcium Gluconate 10 meq/ Multivitamins 10 ml/Chromium / Copper/Manganese/ Seleni/Zn 1 ml/ Total Parenteral Nutrition/Amino Acids/ Dextrose/ Fat Emulsion Intravenous 1,512 ml @ 63 mls/hr TPN CONT IV Last administered on 10/02/17 21:37; Start 10/02/17 at 22:00; Stop 10/03/17 at 21 :59; Status DC Morphine Sulfate 2 mg PRN Q2HR PRN IV SEVERE PAIN Last administered on 01:33; Start 10/03/17 at 06:00 Lorazepam (Ativan) 1 mg PRN Q4HRS PRN IV ANXIETY / AGITATION Last administered on 10/04/17 01:15; Start 10/03/17 at 06:00 Potassium Phosphate 13.6 mmol/Sodium Chloride 104.5333 ml @ 52.267 m... Q2H IV Last administered on 10/03/17 17:28; Start 10/03/17 at 12:00; Stop at 15:59; Status DC Potassium Acetate 70 meq/Potassium Phosphate 13.6 mmol/Magnesium Sulfate 10 meq / Calcium Gluconate 10 meq/ Multivitamins 10 ml/Chromium/ Copper/Manganese/ Seleni/Zn 1 ml/ Total Parenteral Nutrition/Amino Acids/Dextrose/ Fat Emulsion Intravenous 1,992 ml @ 83 mls/hr TPN CONT IV Last administered on 10/03/17 22:00; Start 10/03/17 at 22:00; Stop 10/04/17 at 21:59; Status DC Vitamin A/Vitamin D (Vitamin A & D Ointment) 1 joe PRN BID PRN TP SKIN PROTECTION Last administered on 10/04/17 01:28; Start 10/03/17 at 14:00 Pantoprazole Sodium (Protonix) 40 mg DAILYAC PO Last administered on 10/05/17 09:26; Start 10/05/17 at 07:30 Simethicone (Gas-X) 80 mg PRN AFTMEALHC PRN PO GAS / BLOATING Last administered on 10/04/17 21:09; Start 10/04/17 at 09:00 Polyethylene Glycol (miraLAX PACKET) 17 gm PRN DAILY PRN PO CONSTIPATION; Start 10/04/17 at 09:00 Potassium Acetate 70 meq/Potassium Phosphate 13.6 mmol/Magnesium Sulfate 10 meq / Calcium Gluconate 10 meq/ Multivitamins 10 ml/Chromium/ Copper/Manganese/ Seleni/Zn 1 ml/ Total Parenteral Nutrition/Amino Acids/Dextrose/ Fat Emulsion Intravenous 1,992 ml @ 83 mls/hr TPN CONT IV Last administered on 10/05/17 00:02; Start 10/04/17 at 22:00; Stop 10/05/17 at 21:59; Status DC Iohexol (Omnipaque 300 Mg/ml) 75 ml 1X ONCE IV Last administered on 16:25; Start 10/04/17 at 15:30; Stop 10/04/17 at 15:31; Status DC Info (Do NOT chart on this entry -- for MONITORING) 1 each PRN DAILY PRN MC SEE COMMENTS; Start 10/04/17 at 15:45; Stop 10/06/17 at 15:44 Loperamide HCl (Imodium) 2 mg PRN Q1HR PRN PEG DIARRHEA Last administered on 12:22; Start 10/05/17 at 07:00 Furosemide (Lasix) 20 mg DAILY PO Last administered on 10/05/17 09:27; Start 10/05/17 at 09:00 Potassium Acetate 70 meq/Potassium Phosphate 13.6 mmol/Magnesium Sulfate 10 meq / Calcium Gluconate 10 meq/ Multivitamins 10 ml/Chromium/ Copper/Manganese/ Seleni/Zn 1 ml/ Total Parenteral Nutrition/Amino Acids/Dextrose/ Fat Emulsion Intravenous 1,600 ml @ 66.667 mls/ hr TPN CONT IV Last administered on 22:42; Start 10/05/17 at 22:00; Stop 10/06/17 at 21:59 Dicyclomine HCl (Bentyl) 10 mg PRN Q6HRS PRN PO MILD PAIN Last administered on 10/06/17 02:09; Start 10/05/17 at 17:15 Tramadol HCl (Ultram) 50 mg PRN Q6HRS PRN PO PAIN; Start 10/06/17 at 10:45 Active Scripts Active Reported Gabapentin 300 Mg Capsule 300 Mg PO TID Cymbalta (Duloxetine Hcl) 60 Mg Capsule. 1 Cap PO BID Hydrochlorothiazide Tablet (Hydrochlorothiazide) 25 Mg Tablet 1 Tab PO DAILY Xanax (Alprazolam) 1 Mg Tablet 1 Tab PO TID PRN Vitals/I & O Vital Sign - Last 24 Hours 10/05/17 10/05/17 10/05/17 10/05/17 11:00 12:20 15:00 19:00 Temp 97.6 97.6 97.9 97.6 97.6 97.9 Pulse 91 99 99 Resp 20 20 20 B/P (MAP) 147/86 (106) 138/80 (99) 118/80 (93) Pulse Ox 99 100 98 O2 Delivery Room Air Room Air Room Air Room Air 10/05/17 10/05/17 10/05/17 10/06/17 19:37 20:15 23:51 03:37 Temp 97.7 97.7 97.7 97.7 Pulse 109 93 Resp 18 19 B/P (MAP) 114/76 (89) 108/67 (81) Pulse Ox 97 97 98 O2 Delivery Room Air Room Air Room Air Room Air 10/06/17 10/06/17 10/06/17 10/06/17 07:06 08:06 08:07 08:16 Temp 97.9 97.9 Pulse 88 Resp 19 B/P (MAP) 112/62 (79) Pulse Ox 100 96 96 O2 Delivery Room Air Room Air Room Air Room Air Intake and Output 10/05/17 10/05/17 10/06/17 15:00 23:00 07:00 Intake Total 200 ml 150 ml Output Total 2200 ml 1450 ml Balance -2000 ml -1300 ml YELITZA MARROQUIN MD Oct 06, 2017 11:00
[2017-10-06] MEDS: oxyCODONE/APAP 5/325 1 TAB TABLET PO PRN ×2 (11:21→17:29)
[2017-10-06 11:38] VITALS: BP 116/60
[2017-10-06] MEDS: TPN PER PHARMACY MC PRN ×2 (12:11→12:34)
[2017-10-06] MEDS: traMADol 50 MG TABLET PO PRN ×2 (14:09→21:38)
[2017-10-06 14:55] VITALS: BP 106/62
--- NOTE | 2017-10-06 16:07 | PDOC ---
PROGRESS NOTES Subjective Subjective HPI- Iron deficiency anemia. ROS - no GI bleeding Objective Objective Vital Signs Date Time Temp Pulse Resp B/P (MAP) Pulse Ox O2 Delivery O2 Flow Rate FiO2 10/06/17 15:21 98 Room Air 10/06/17 14:55 98.2 88 19 106/62 (77) 98.2 10/03/17 10:46 2.0 Intake and Output 10/06/17 07:00 Intake Total 350 ml Output Total 3650 ml Balance -3300 ml Intake Oral 350 ml Output Urine Total 3650 ml Physical Exam Heart: Normal S1, Normal S2 General: Alert, Oriented X3 Lungs: Clear to auscultation Neuro: Normal speech Psych/Mental Status: Mental status NL Assessment Assessment Problems Medical Problems: (1) Dyspnea Status: Acute (2) Hypoalbuminemia Status: Acute (3) Metabolic acidosis Status: Acute (4) Pneumonia Status: Acute IMPRESSION AND PLAN: 1. Iron deficiency anemia. She received Venofer 500 mg intravenous on 2016. I will continue to monitor hemoglobin and transfuse as needed. Hemoglobin improved to 7.7 after transfusion. Then worse at 6.6 on 09/19/17. s/p 1 unit 09/19/17. Hb worse at 7.5 on 10/01/17 and 7.6 on 10/02/17, s/p PRBC. Hb better at 9.1 , now 7.2 GI following. s/p second dose of venofer 500 mg IV 10/01/17. Bleeding scan 10/02/17 is normal. 2. Leukocytosis, reactive from underlying pneumonia. Management per Pulmonary Medicine. WBC 12.4 3. Pneumonia/dyspnea - Improved. Comment Review of Relevant I have reviewed the following items tha (where applicable) has been applied. Labs Laboratory Tests Test 10/05/17 05:00 10/05/17 08:00 10/06/17 05:00 White Blood Count 15.1 x10^3/uL (4.0-11.0) 12.4 x10^3/uL (4.0-11.0) Red Blood Count 2.59 x10^6/uL (3.50-5.40) 2.51 x10^6/uL (3.50-5.40) Hemoglobin 7.4 g/dL (12.0-15.5) 7.2 g/dL (12.0-15.5) Hematocrit 23.3 % (36.0-47.0) 22.4 % (36.0-47.0) Mean Corpuscular Volume 90 fL (79-100) 89 fL (79-100) Mean Corpuscular Hemoglobin 29 pg (25-35) 29 pg (25-35) Mean Corpuscular Hemoglobin Concent 32 g/dL (31-37) 32 g/dL (31-37) Red Cell Distribution Width 24.2 % (11.5-14.5) 25.8 % (11.5-14.5) Platelet Count 296 x10^3/uL (140-400) 257 x10^3/uL (140-400) Neutrophils (%) (Auto) 81 % (31-73) 82 % (31-73) Lymphocytes (%) (Auto) 7 % (24-48) 6 % (24-48) Monocytes (%) (Auto) 6 % (0-9) 4 % (0-9) Eosinophils (%) (Auto) 7 % (0-3) 7 % (0-3) Basophils (%) (Auto) 0 % (0-3) 1 % (0-3) Neutrophils # (Auto) 12.2 x10^3uL (1.8-7.7) 10.2 x10^3uL (1.8-7.7) Lymphocytes # (Auto) 1.0 x10^3/uL (1.0-4.8) 0.8 x10^3/uL (1.0-4.8) Monocytes # (Auto) 0.8 x10^3/uL (0.0-1.1) 0.5 x10^3/uL (0.0-1.1) Eosinophils # (Auto) 1.0 x10^3/uL (0.0-0.7) 0.8 x10^3/uL (0.0-0.7) Basophils # (Auto) 0.1 x10^3/uL (0.0-0.2) 0.1 x10^3/uL (0.0-0.2) Sodium Level 143 mmol/L (136-145) 141 mmol/L (136-145) Potassium Level 4.2 mmol/L (3.5-5.1) 3.8 mmol/L (3.5-5.1) Chloride Level 116 mmol/L (98-107) 111 mmol/L (98-107) Carbon Dioxide Level 17 mmol/L (21-32) 19 mmol/L (21-32) Anion Gap 10 (6-14) 11 (6-14) Blood Urea Nitrogen 28 mg/dL (7-20) 25 mg/dL (7-20) Creatinine 0.6 mg/dL (0.6-1.0) 0.7 mg/dL (0.6-1.0) Estimated GFR (Cockcroft-Gault) 102.0 85.4 BUN/Creatinine Ratio 47 (6-20) 36 (6-20) Glucose Level 101 mg/dL (70-99) 101 mg/dL (70-99) Calcium Level 8.1 mg/dL (8.5-10.1) 8.4 mg/dL (8.5-10.1) Phosphorus Level 2.6 mg/dL (2.6-4.7) Magnesium Level 2.0 mg/dL (1.8-2.4) Total Bilirubin 0.4 mg/dL (0.2-1.0) 0.4 mg/dL (0.2-1.0) Aspartate Amino Transf (AST/SGOT) 17 U/L (15-37) 21 U/L (15-37) Alanine Aminotransferase (ALT/SGPT) 31 U/L (14-59) 41 U/L (14-59) Alkaline Phosphatase 42 U/L (46-116) 53 U/L (46-116) Total Protein 4.4 g/dL (6.4-8.2) 5.0 g/dL (6.4-8.2) Albumin 1.9 g/dL (3.4-5.0) 2.1 g/dL (3.4-5.0) Albumin/Globulin Ratio 0.8 (1.0-1.7) 0.7 (1.0-1.7) Triglycerides Level 86 mg/dL (0-150) Cholesterol Level 88 mg/dL (0-200) LDL Cholesterol, Calculated 38 mg/dL (0-100) VLDL Cholesterol, Calculated 17 mg/dL (0-40) Non-HDL Cholesterol Calculated 55 mg/dL (0-129) HDL Cholesterol 33 mg/dL (40-60) Cholesterol/HDL Ratio 2.7 Lactic Acid Level 1.0 mmol/L (0.4-2.0) Laboratory Tests Test 10/06/17 05:00 White Blood Count 12.4 x10^3/uL (4.0-11.0) Red Blood Count 2.51 x10^6/uL (3.50-5.40) Hemoglobin 7.2 g/dL (12.0-15.5) Hematocrit 22.4 % (36.0-47.0) Mean Corpuscular Volume 89 fL (79-100) Mean Corpuscular Hemoglobin 29 pg (25-35) Mean Corpuscular Hemoglobin Concent 32 g/dL (31-37) Red Cell Distribution Width 25.8 % (11.5-14.5) Platelet Count 257 x10^3/uL (140-400) Neutrophils (%) (Auto) 82 % (31-73) Lymphocytes (%) (Auto) 6 % (24-48) Monocytes (%) (Auto) 4 % (0-9) Eosinophils (%) (Auto) 7 % (0-3) Basophils (%) (Auto) 1 % (0-3) Neutrophils # (Auto) 10.2 x10^3uL (1.8-7.7) Lymphocytes # (Auto) 0.8 x10^3/uL (1.0-4.8) Monocytes # (Auto) 0.5 x10^3/uL (0.0-1.1) Eosinophils # (Auto) 0.8 x10^3/uL (0.0-0.7) Basophils # (Auto) 0.1 x10^3/uL (0.0-0.2) Sodium Level 141 mmol/L (136-145) Potassium Level 3.8 mmol/L (3.5-5.1) Chloride Level 111 mmol/L (98-107) Carbon Dioxide Level 19 mmol/L (21-32) Anion Gap 11 (6-14) Blood Urea Nitrogen 25 mg/dL (7-20) Creatinine 0.7 mg/dL (0.6-1.0) Estimated GFR (Cockcroft-Gault) 85.4 BUN/Creatinine Ratio 36 (6-20) Glucose Level 101 mg/dL (70-99) Calcium Level 8.4 mg/dL (8.5-10.1) Total Bilirubin 0.4 mg/dL (0.2-1.0) Aspartate Amino Transf (AST/SGOT) 21 U/L (15-37) Alanine Aminotransferase (ALT/SGPT) 41 U/L (14-59) Alkaline Phosphatase 53 U/L (46-116) Total Protein 5.0 g/dL (6.4-8.2) Albumin 2.1 g/dL (3.4-5.0) Albumin/Globulin Ratio 0.7 (1.0-1.7) Microbiology 09/17/17 Blood Culture - Final, Complete NO GROWTH AFTER 5 DAYS 09/20/17 AFB Specimen Processing Tissue - Final, Resulted 09/20/17 Acid Fast Bacilli Culture, Resulted Pending 09/20/17 Gram Stain - Final, Resulted 09/20/17 Fungal Culture - Preliminary, Resulted 09/20/17 Fungal Culture Result 1 - Preliminary, Resulted Medications Current Medications Sodium Chloride 1,000 ml @ 125 mls/hr 1X ONCE IV Last administered on 15:54; Start 09/17/17 at 15:15; Stop 09/17/17 at 23:14; Status DC Ondansetron HCl (Zofran) 4 mg PRN Q8HRS PRN IV NAUSEA/VOMITING; Start at 16:30; Stop 09/18/17 at 16:29; Status DC Ceftriaxone Sodium 50 ml @ 0 mls/hr 1X ONCE IV Last administered on 17:33; Start 09/17/17 at 16:45; Stop 09/17/17 at 16:46; Status DC Azithromycin 250 ml @ 250 mls/hr 1X ONCE IV Last administered on 09/17/17 22:38; Start 09/17/17 at 16:30; Stop 09/17/17 at 17:29; Status DC Albuterol/ Ipratropium (Duoneb) 3 ml 1X ONCE NEB Last administered on 17:00; Start 09/17/17 at 16:45; Stop 09/17/17 at 16:46; Status DC Potassium Chloride (Klor-Con) 40 meq 1X ONCE PO Last administered on 16:57; Start 09/17/17 at 16:45; Stop 09/17/17 at 16:46; Status DC Azithromycin (Zithromax) 250 mg DAILY PO Last administered on 09/18/17 10:25 ; Start 09/18/17 at 09:00; Stop 09/19/17 at 10:30; Status DC Ceftriaxone Sodium 1 gm/ Dextrose 50 ml @ 100 mls/hr Q24H IV ; Start 09/17/17 at 17:15; Status UNV Albuterol/ Ipratropium (Duoneb) 3 ml Q4HRS NEB Last administered on 09/30/17 08:11; Start 09/17/17 at 20:00; Stop 09/30/17 at 09:21; Status DC Ceftriaxone Sodium (Rocephin) 1 gm Q24H IVP Last administered on 09/18/17 17: 55; Start 09/18/17 at 16:00; Stop 09/19/17 at 10:30; Status DC Guaifenesin (Robitussin Dm) 10 ml PRN Q6HRS PRN PO COUGH; Start 09/17/17 at 17 :15; Stop 09/30/17 at 09:21; Status DC Sodium Chloride 1,000 ml @ 125 mls/hr 1X ONCE IV Last administered on 17:45; Start 09/17/17 at 17:15; Stop 09/17/17 at 22:12; Status DC Info (Do NOT chart on this placeholder) 1 each 1X ONCE MC ; Start 09/17/17 at 19:00; Stop 09/17/17 at 19:01; Status UNV Influenza Virus Vaccine Quadrival (Fluarix Quad 9030-3418 Syringe) 0.5 ml ONCE ONCE VAX IM Last administered on 09/17/17 21:00; Start 09/17/17 at 21:00; Stop 09/17/17 at 21:01; Status DC Sodium Chloride 1,000 ml @ 130 mls/hr 1X ONCE IV Last administered on 22:31; Start 09/17/17 at 22:30; Stop 09/18/17 at 06:11; Status DC Sodium Bicarbonate 50 meq 1X ONCE IV Last administered on 09/17/17 22:31; Start 09/17/17 at 22:30; Stop 09/17/17 at 22:31; Status DC Alprazolam (Xanax) 1 mg PRN TID PRN PO ANXIETY Last administered on 09/19/17 02:19; Start 09/17/17 at 22:30; Stop 09/30/17 at 09:21; Status DC Furosemide (Lasix) 20 mg 1X ONCE IVP Last administered on 09/18/17 06:24; Start 09/18/17 at 06:30; Stop 09/18/17 at 06:31; Status DC Potassium Chloride (Klor-Con) 40 meq 1X ONCE PO Last administered on 10:25; Start 09/18/17 at 09:00; Stop 09/18/17 at 09:01; Status DC Iron Sucrose 500 mg/Sodium Chloride 275 ml @ 78.571 mls/ hr 1X ONCE IV Last administered on 09/18/17 10:24; Start 09/18/17 at 09:00; Stop 09/18/17 at 12 :29; Status DC Furosemide (Lasix) 20 mg 1X ONCE IVP Last administered on 09/18/17 10:30; Start 09/18/17 at 10:00; Stop 09/18/17 at 10:22; Status DC Pantoprazole Sodium (Protonix) 40 mg DAILYAC PO Last administered on 10:47; Start 09/18/17 at 11:00; Stop 09/19/17 at 13:41; Status DC Furosemide (Lasix) 20 mg 1X ONCE IVP Last administered on 09/18/17 10:47; Start 09/18/17 at 10:45; Stop 09/18/17 at 10:46; Status DC Potassium Chloride (Klor-Con) 40 meq 1X ONCE PO ; Start 09/18/17 at 11:45; Stop 09/18/17 at 11:46; Status DC Oxycodone/ Acetaminophen (Percocet 5/325) 1 tab PRN Q6HRS PRN PO PAIN Last administered on 10/06/17 11:21; Start 09/18/17 at 12:15 Lorazepam (Ativan) 1 mg PRN Q4HRS PRN IV ANXIETY / AGITATION Last administered on 09/18/17 12:25; Start 09/18/17 at 12:15; Stop 09/18/17 at 13:34; Status DC Fentanyl Citrate (Fentanyl 2ml Vial) 50 mcg PRN Q2HR PRN IV PAIN Last administered on 09/19/17 04:09; Start 09/18/17 at 12:15; Stop 09/30/17 at 09 :21; Status DC Lorazepam (Ativan) 2 mg PRN Q4HRS PRN IV ANXIETY / AGITATION Last administered on 09/29/17 05:17; Start 09/18/17 at 13:30; Stop 09/30/17 at 09:21; Status DC Quetiapine Fumarate (SEROquel) 25 mg HS PO Last administered on 09/18/17 21: 03; Start 09/18/17 at 21:00; Stop 09/19/17 at 10:35; Status DC Haloperidol Lactate (Haldol) 5 mg PRN Q12HRS PRN IVP AGITATION; Start at 13:45 Lorazepam (Ativan) 1 mg PRN Q4HRS PRN IV ANXIETY / AGITATION; Start 09/19/17 at 10:15; Stop 09/19/17 at 10:18; Status DC Lorazepam (Ativan) 4 mg 1X ONCE IV ; Start 09/19/17 at 10:30; Stop 09/19/17 at 10:31; Status DC Vancomycin HCl (Vanco Per Pharmacy) 1 each PRN DAILY PRN MC SEE COMMENTS Last administered on 09/23/17 12:36; Start 09/19/17 at 10:30; Stop 09/24/17 at 08 :36; Status DC Piperacillin Sod/ Tazobactam Sod (Zosyn Per Pharmacy) 1 each PRN DAILY PRN MC SEE COMMENTS; Start 09/19/17 at 10:30; Stop 09/24/17 at 08:41; Status DC Vancomycin HCl 2 gm/Dextrose 500 ml @ 250 mls/hr 1X ONCE IV Last administered on 09/19/17 14:53; Start 09/19/17 at 11:00; Stop 09/19/17 at 12 :59; Status DC Piperacillin Sod/ Tazobactam Sod (Zosyn) 3.375 gm Q6HRS IVP Last administered on 10/02/17 17:13; Start 09/19/17 at 11:00; Stop 10/02/17 at 19:14; Status DC Budesonide (Pulmicort) 0.5 mg RTBID NEB Last administered on 10/06/17 08:04; Start 09/19/17 at 20:00 Budesonide (Pulmicort) 0.5 mg 1X ONCE NEB Last administered on 09/19/17 12: 50; Start 09/19/17 at 10:45; Stop 09/19/17 at 10:46; Status DC Pantoprazole Sodium (PROTONIX VIAL for IV PUSH) 40 mg DAILYAC IVP Last administered on 10/03/17 08:23; Start 09/19/17 at 11:30; Stop 10/04/17 at 08 :51; Status DC Furosemide (Lasix) 40 mg DAILY IVP ; Start 09/19/17 at 11:00; Stop 09/20/17 at 13:20; Status DC Methylprednisolone Sodium Succinate (SOLU-Medrol 125MG VIAL) 125 mg 1X ONCE IV Last administered on 09/19/17 13:23; Start 09/19/17 at 10:45; Stop at 10:46; Status DC Prednisone (Prednisone) 40 mg DAILY PO ; Start 09/19/17 at 11:00; Stop at 09:02; Status DC Methylprednisolone Sodium Succinate (SOLU-Medrol 125MG VIAL) 125 mg Q8HRS IV Last administered on 09/23/17 05:43; Start 09/19/17 at 14:00; Stop 09/23/17 at 10:40; Status DC Midazolam HCl 100 ml @ 0 mls/hr CONT PRN IV SEE I/O RECORD; Start 09/19/17 at 11:00; Stop 09/19/17 at 12:51; Status DC Midazolam HCl (Versed) 5 mg 1X ONCE IV ; Start 09/19/17 at 11:00; Stop at 11:01; Status DC Fentanyl Citrate (Fentanyl 2ml Vial) 50 mcg 1X ONCE IV ; Start 09/19/17 at 11: 00; Stop 09/19/17 at 11:01; Status DC Midazolam HCl 100 ml @ As Directed STK-MED ONCE IV ; Start 09/19/17 at 10:55; Stop 09/19/17 at 10:56; Status DC Midazolam HCl (Versed) 5 mg STK-MED ONCE .ROUTE ; Start 09/19/17 at 10:55; Stop 09/19/17 at 10:56; Status DC Propofol 100 ml @ As Directed STK-MED ONCE IV ; Start 09/19/17 at 10:59; Stop 09/19/17 at 11:00; Status DC Norepinephrine Bitartrate 250 ml @ As Directed STK-MED ONCE IV ; Start at 10:59; Stop 09/19/17 at 11:00; Status DC Furosemide (Lasix) 20 mg 1X ONCE IVP ; Start 09/19/17 at 11:15; Stop at 11:16; Status DC Vecuronium [place] (Norcuron Bolus) 10 mg STK-MED ONCE IV ; Start 09/19/17 at 11:21; Stop 09/19/17 at 11:22; Status DC Fentanyl Citrate 30 ml @ 0 mls/hr CONT PRN IV PROTOCOL Last administered on 15:08; Start 09/19/17 at 11:30; Stop 09/23/17 at 15:24; Status DC Vecuronium [place] (Norcuron Bolus) 6 mg 1X ONCE IV Last administered on 09/19 11:42; Start 09/19/17 at 11:30; Stop 09/19/17 at 11:39; Status DC Propofol 10 ml @ 0 mls/hr 1X ONCE IV Last administered on 09/19/17 11:30; Start 09/19/17 at 11:30; Stop 09/19/17 at 11:39; Status DC Midazolam HCl 100 ml @ 0 mls/hr CONT PRN IV SEE I/O RECORD Last administered on 09/27/17 00:40; Start 09/19/17 at 11:30; Stop 09/30/17 at 09:21; Status DC Norepinephrine Bitartrate 250 ml @ 0 mls/hr CONT PRN IV SEE I/O RECORD Last administered on 09/24/17 05:18; Start 09/19/17 at 11:30; Stop 09/30/17 at 09 :21; Status DC Succinylcholine Chloride (Anectine) 100 mg 1X ONCE IV Last administered on 11:42; Start 09/19/17 at 11:30; Stop 09/19/17 at 11:39; Status DC Sodium Bicarbonate 50 meq 1X ONCE IV Last administered on 09/19/17 13:23; Start 09/19/17 at 12:45; Stop 09/19/17 at 12:46; Status DC Sodium Bicarbonate 50 meq 1X ONCE IV Last administered on 09/19/17 13:23; Start 09/19/17 at 12:45; Stop 09/19/17 at 12:46; Status DC Lidocaine/Sodium Bicarbonate (Buffered Lidocaine 1%) 20 ml STK-MED ONCE IJ ; Start 09/19/17 at 13:34; Stop 09/19/17 at 13:35; Status DC Vecuronium [place] (Norcuron Bolus) 10 mg 1X ONCE IV Last administered on 15:05; Start 09/19/17 at 14:00; Stop 09/19/17 at 14:02; Status DC Lidocaine/Sodium Bicarbonate (Buffered Lidocaine 1%) 3 ml 1X ONCE IJ ; Start 09/19/17 at 14:45; Stop 09/19/17 at 14:46; Status DC Vancomycin HCl 1.25 gm/Dextrose 250 ml @ 166.667 mls/hr Q24H IV Last administered on 09/23/17 17:19; Start 09/20/17 at 15:00; Stop 09/24/17 at 08 :35; Status DC Vancomycin HCl 1 each 1X ONCE MC Last administered on 09/21/17 14:30; Start 09/21/17 at 14:30; Stop 09/21/17 at 14:31; Status DC Azithromycin 500 mg/Sodium Chloride 250 ml @ 250 mls/hr Q24H IV Last administered on 09/23/17 17:19; Start 09/19/17 at 16:30; Stop 09/24/17 at 08 :35; Status DC Norepinephrine Bitartrate (Levophed 8mg/ 250ml Premix Drip) 8 mg STK-MED ONCE IV ; Start 09/19/17 at 11:00; Stop 09/20/17 at 08:44; Status DC Midazolam HCl (Versed) 5 mg STK-MED ONCE .ROUTE ; Start 09/19/17 at 11:00; Stop 09/20/17 at 08:44; Status DC Amino Acids/ Glycerin/ Electrolytes 1,000 ml @ 80 mls/hr [id number] IV Last administered on 09/21/17 01:21; Start 09/20/17 at 10:00; Stop 09/22/17 at 07 :02; Status DC Info 1 each PRN DAILY PRN MC SEE COMMENTS; Start 09/20/17 at 10:00; Stop at 12:14; Status DC Furosemide (Lasix) 20 mg 1X ONCE IVP Last administered on 09/20/17 10:21; Start 09/20/17 at 10:15; Stop 09/20/17 at 10:18; Status DC Info 1 each PRN DAILY PRN MC SEE COMMENTS; Start 09/20/17 at 11:00; Status UNV Vecuronium [place] (Norcuron Bolus) 10 mg 1X ONCE IV Last administered on 12:03; Start 09/20/17 at 11:15; Stop 09/20/17 at 11:24; Status DC Atropine Sulfate 0.5 mg STK-MED ONCE .ROUTE ; Start 09/20/17 at 11:47; Stop at 11:48; Status DC Epinephrine HCl (EPINEPHrine SYRINGE) 1 mg STK-MED ONCE .ROUTE ; Start at 11:47; Stop 09/20/17 at 11:48; Status DC Atropine Sulfate 0.5 mg STK-MED ONCE .ROUTE ; Start 09/20/17 at 12:00; Stop at 09:11; Status DC Epinephrine HCl (EPINEPHrine SYRINGE) 1 mg STK-MED ONCE .ROUTE ; Start at 12:00; Stop 09/21/17 at 09:11; Status DC Furosemide (Lasix) 20 mg DAILY IVP ; Start 09/21/17 at 11:15; Stop 09/21/17 at 11:20; Status DC Lorazepam (Ativan) 1 mg PRN Q1HR PRN IV ANXIETY / AGITATION Last administered on 09/28/17 17:04; Start 09/21/17 at 11:15; Stop 09/30/17 at 09:21; Status DC Albumin Human 250 ml @ 62.5 mls/hr 1X ONCE IV Last administered on 11:57; Start 09/21/17 at 11:30; Stop 09/21/17 at 15:29; Status DC Albumin Human 250 ml @ 62.5 mls/hr 1X ONCE IV Last administered on 14:29; Start 09/21/17 at 11:30; Stop 09/21/17 at 15:29; Status DC Micafungin Sodium 100 mg/Dextrose 100 ml @ 100 mls/hr Q24H IV Last administered on 09/23/17 13:17; Start 09/21/17 at 12:00; Stop 09/24/17 at 08 :35; Status DC Vecuronium [place] (Norcuron Bolus) 4 mg PRN Q4HRS PRN IV AGITATION; Start at 15:00; Stop 09/30/17 at 09:21; Status DC Dexmedetomidine HCl 200 mcg/ Sodium Chloride 50 ml @ 0 mls/hr CONT PRN IV PER PROTOCOL Last administered on 09/21/17 15:54; Start 09/21/17 at 15:30; Stop 09/30/17 at 09:21; Status DC Sodium Chloride 500 ml @ 500 mls/hr 1X PRN PRN IV SEE COMMENTS; Start at 15:30 Atropine Sulfate 0.5 mg PRN Q5MIN PRN IV SEE COMMENTS; Start 09/21/17 at 15:30 Propofol 100 ml @ 0 mls/hr CONT PRN IV PER PROTOCOL Last administered on 14:35; Start 09/21/17 at 16:45; Stop 09/30/17 at 09:21; Status DC Furosemide (Lasix) 20 mg 1X ONCE IVP Last administered on 09/22/17 09:41; Start 09/22/17 at 10:15; Stop 09/22/17 at 10:16; Status DC Chlorhexidine Gluconate (Peridex) 15 ml BID MM Last administered on 09/29/17 08:07; Start 09/22/17 at 21:00; Stop 09/29/17 at 20:22; Status DC Furosemide (Lasix) 20 mg 1X ONCE IVP Last administered on 09/22/17 17:55; Start 09/22/17 at 18:00; Stop 09/22/17 at 18:01; Status DC Furosemide (Lasix) 20 mg DAILY IVP Last administered on 09/23/17 13:16; Start 09/23/17 at 11:30; Stop 09/24/17 at 08:40; Status DC Methylprednisolone Sodium Succinate (SOLU-Medrol 125MG VIAL) 80 mg Q8HRS IV Last administered on 09/30/17 05:47; Start 09/23/17 at 14:00; Stop 09/30/17 at 09:26; Status DC Fentanyl Citrate 55 ml @ 0 mls/hr CONT PRN PRN IV PER PROTOCOL Last administered on 09/28/17 19:13; Start 09/23/17 at 12:15; Stop 09/30/17 at 09 :21; Status DC Dextrose 1,000 ml @ 25 mls/hr Q24H IV Last administered on 09/28/17 12:59; Start 09/23/17 at 11:45; Stop 10/04/17 at 13:14; Status DC Enoxaparin Sodium (Lovenox Per Pharmacy Prophylaxis Dosing) 1 each PRN DAILY PRN MC SEE COMMENTS; Start 09/23/17 at 16:30; Stop 09/24/17 at 08:41; Status DC Enoxaparin Sodium (Lovenox 40mg Syringe) 40 mg Q24H SQ Last administered on 18:10; Start 09/23/17 at 17:00 Bisacodyl (Dulcolax Tab) 5 mg PRN DAILY PRN PO CONSTIPATION; Start 09/24/17 at 09:30 Insulin Aspart (NovoLOG) 0-5 UNITS Q6HRS SQ Last administered on 09/29/17 12: 27; Start 09/25/17 at 18:00; Stop 10/01/17 at 02:54; Status DC Dextrose (Dextrose 50%-Water Syringe) 12.5 gm PRN Q15MIN PRN IV SEE COMMENTS; Start 09/25/17 at 12:30; Stop 10/01/17 at 02:54; Status DC Dextrose/Sodium Chloride 1,000 ml @ 75 mls/hr [id number] IV Last administered on 10/02/17 01:23; Start 09/29/17 at 19:00; Stop 10/02/17 at 09:07; Status DC Ondansetron HCl (Zofran) 4 mg PRN Q6HRS PRN IV NAUSEA/VOMITING Last administered on 10/01/17 20:33; Start 09/29/17 at 20:00 Albuterol/ Ipratropium (Duoneb) 3 ml TID NEB Last administered on 10/06/17 12: 23; Start 09/30/17 at 14:00 Methylprednisolone Sodium Succinate (SOLU-Medrol 125MG VIAL) 80 mg Q12HR IV Last administered on 10/01/17 08:56; Start 09/30/17 at 21:00; Stop 10/01/17 at 10:22; Status DC Iron Sucrose 500 mg/Sodium Chloride 275 ml @ 78.571 mls/ hr 1X ONCE IV Last administered on 10/01/17 10:08; Start 10/01/17 at 09:30; Stop 10/01/17 at 12 :59; Status DC Methylprednisolone Sodium Succinate (SOLU-Medrol 40MG VIAL) 40 mg Q12HR IV ; Start 10/01/17 at 21:00; Stop 10/01/17 at 21:00; Status DC Alprazolam (Xanax) 0.25 mg PRN Q8HRS PRN PO ANXIETY / AGITATION Last administered on 10/04/17 21:09; Start 10/01/17 at 10:30 Quetiapine Fumarate (SEROquel) 50 mg HS PO Last administered on 10/05/17 20:43 ; Start 10/01/17 at 21:00 Methylprednisolone Sodium Succinate (SOLU-Medrol 40MG VIAL) 40 mg QHS IV Last administered on 10/01/17 20:32; Start 10/01/17 at 21:00; Stop 10/02/17 at 10 :36; Status DC Saliva Substitute (Biotene Moisturizing Mouth) 2 spray PRN Q15MIN PRN PO DRY MOUTH; Start 10/02/17 at 09:15 Info 1 each PRN DAILY PRN MC SEE COMMENTS Last administered on 10/06/17 12:34 ; Start 10/02/17 at 09:15 Amino Acids/ Glycerin/ Electrolytes 1,000 ml @ 100 mls/hr Q10H IV Last administered on 10/02/17 09:57; Start 10/02/17 at 10:00; Stop 10/02/17 at 19 :59; Status DC Methylprednisolone Sodium Succinate (SOLU-Medrol 40MG VIAL) 20 mg QHS IV Last administered on 10/02/17 21:38; Start 10/02/17 at 21:00; Stop 10/03/17 at 12 :46; Status DC Sodium Acetate 40 meq/Potassium Chloride 50 meq/ Potassium Phosphate 13.6 mmol/ Magnesium Sulfate 10 meq/ Calcium Gluconate 10 meq/ Multivitamins 10 ml/Chromium / Copper/Manganese/ Seleni/Zn 1 ml/ Total Parenteral Nutrition/Amino Acids/ Dextrose/ Fat Emulsion Intravenous 1,512 ml @ 63 mls/hr TPN CONT IV Last administered on 10/02/17 21:37; Start 10/02/17 at 22:00; Stop 10/03/17 at 21 :59; Status DC Morphine Sulfate 2 mg PRN Q2HR PRN IV SEVERE PAIN Last administered on 01:33; Start 10/03/17 at 06:00 Lorazepam (Ativan) 1 mg PRN Q4HRS PRN IV ANXIETY / AGITATION Last administered on 10/04/17 01:15; Start 10/03/17 at 06:00 Potassium Phosphate 13.6 mmol/Sodium Chloride 104.5333 ml @ 52.267 m... Q2H IV Last administered on 10/03/17 17:28; Start 10/03/17 at 12:00; Stop at 15:59; Status DC Potassium Acetate 70 meq/Potassium Phosphate 13.6 mmol/Magnesium Sulfate 10 meq / Calcium Gluconate 10 meq/ Multivitamins 10 ml/Chromium/ Copper/Manganese/ Seleni/Zn 1 ml/ Total Parenteral Nutrition/Amino Acids/Dextrose/ Fat Emulsion Intravenous 1,992 ml @ 83 mls/hr TPN CONT IV Last administered on 10/03/17 22:00; Start 10/03/17 at 22:00; Stop 10/04/17 at 21:59; Status DC Vitamin A/Vitamin D (Vitamin A & D Ointment) 1 joe PRN BID PRN TP SKIN PROTECTION Last administered on 10/04/17 01:28; Start 10/03/17 at 14:00 Pantoprazole Sodium (Protonix) 40 mg DAILYAC PO Last administered on 10/05/17 09:26; Start 10/05/17 at 07:30 Simethicone (Gas-X) 80 mg PRN AFTMEALHC PRN PO GAS / BLOATING Last administered on 10/04/17 21:09; Start 10/04/17 at 09:00 Polyethylene Glycol (miraLAX PACKET) 17 gm PRN DAILY PRN PO CONSTIPATION; Start 10/04/17 at 09:00 Potassium Acetate 70 meq/Potassium Phosphate 13.6 mmol/Magnesium Sulfate 10 meq / Calcium Gluconate 10 meq/ Multivitamins 10 ml/Chromium/ Copper/Manganese/ Seleni/Zn 1 ml/ Total Parenteral Nutrition/Amino Acids/Dextrose/ Fat Emulsion Intravenous 1,992 ml @ 83 mls/hr TPN CONT IV Last administered on 10/05/17 00:02; Start 10/04/17 at 22:00; Stop 10/05/17 at 21:59; Status DC Iohexol (Omnipaque 300 Mg/ml) 75 ml 1X ONCE IV Last administered on 16:25; Start 10/04/17 at 15:30; Stop 10/04/17 at 15:31; Status DC Info (Do NOT chart on this entry -- for MONITORING) 1 each PRN DAILY PRN MC SEE COMMENTS; Start 10/04/17 at 15:45; Stop 10/06/17 at 15:44; Status DC Loperamide HCl (Imodium) 2 mg PRN Q1HR PRN PEG DIARRHEA Last administered on 12:22; Start 10/05/17 at 07:00 Furosemide (Lasix) 20 mg DAILY PO Last administered on 10/05/17 09:27; Start 10/05/17 at 09:00 Potassium Acetate 70 meq/Potassium Phosphate 13.6 mmol/Magnesium Sulfate 10 meq / Calcium Gluconate 10 meq/ Multivitamins 10 ml/Chromium/ Copper/Manganese/ Seleni/Zn 1 ml/ Total Parenteral Nutrition/Amino Acids/Dextrose/ Fat Emulsion Intravenous 1,600 ml @ 66.667 mls/ hr TPN CONT IV Last administered on 22:42; Start 10/05/17 at 22:00; Stop 10/06/17 at 21:59 Dicyclomine HCl (Bentyl) 10 mg PRN Q6HRS PRN PO MILD PAIN Last administered on 10/06/17 02:09; Start 10/05/17 at 17:15 Tramadol HCl (Ultram) 50 mg PRN Q6HRS PRN PO PAIN Last administered on 12/2/ 17at 14:09; Start 10/06/17 at 10:45 Potassium Acetate 70 meq/Potassium Phosphate 13.6 mmol/Magnesium Sulfate 10 meq / Calcium Gluconate 10 meq/ Multivitamins 10 ml/Chromium/ Copper/Manganese/ Seleni/Zn 1 ml/ Sodium Acetate 30 meq/Total Parenteral Nutrition/Amino Acids/ Dextrose/ Fat Emulsion Intravenous 1,600 ml @ 66.667 mls/ hr TPN CONT IV ; Start 10/06/17 at 22:00; Stop 10/07/17 at 21:59 Active Scripts Active Reported Gabapentin 300 Mg Capsule 300 Mg PO TID Cymbalta (Duloxetine Hcl) 60 Mg Capsule. 1 Cap PO BID Hydrochlorothiazide Tablet (Hydrochlorothiazide) 25 Mg Tablet 1 Tab PO DAILY Xanax (Alprazolam) 1 Mg Tablet 1 Tab PO TID PRN Vitals/I & O Vital Sign - Last 24 Hours 10/05/17 10/05/17 10/05/17 10/05/17 19:00 19:37 20:15 23:51 Temp 97.9 97.7 97.9 97.7 Pulse 99 109 Resp 20 18 B/P (MAP) 118/80 (93) 114/76 (89) Pulse Ox 98 97 97 O2 Delivery Room Air Room Air Room Air Room Air 10/06/17 10/06/17 10/06/17 10/06/17 03:37 07:06 08:06 08:07 Temp 97.7 97.9 97.7 97.9 Pulse 93 88 Resp 19 19 B/P (MAP) 108/67 (81) 112/62 (79) Pulse Ox 98 100 96 96 O2 Delivery Room Air Room Air Room Air Room Air 10/06/17 10/06/17 10/06/17 10/06/17 08:16 11:21 11:38 12:25 Temp 97.9 97.9 Pulse 82 Resp 17 B/P (MAP) 116/60 (78) Pulse Ox 96 100 100 O2 Delivery Room Air Room Air Room Air Room Air 10/06/17 10/06/17 10/06/17 10/06/17 12:27 14:09 14:55 15:21 Temp 98.2 98.2 Pulse 88 Resp 19 B/P (MAP) 106/62 (77) Pulse Ox 100 98 98 O2 Delivery Room Air Room Air Room Air Room Air Intake and Output 10/05/17 10/05/17 10/06/17 15:00 23:00 07:00 Intake Total 200 ml 150 ml Output Total 2200 ml 1450 ml Balance -2000 ml -1300 ml ELLA ORTEGA MD Oct 06, 2017 16:07
[2017-10-06] MEDS: ENOXAPARIN 40 MG/0.4 ML SYRINGE. SQ SCH (17:32)
[2017-10-06 19:44] VITALS: BP 102/50
[2017-10-06] MEDS: QUEtiapine 25 MG TABLET. PO SCH (19:51)
[2017-10-06] MEDS ORDERED: [UNRECOGNIZED DRUG - OTHER] IV SCH ×10 (22:00)
[2017-10-06] MEDS ORDERED: AMINO ACIDS IV SCH ×10 (22:00)
[2017-10-06] MEDS ORDERED: DEXTROSE 70% IV SCH ×10 (22:00)
[2017-10-06] MEDS ORDERED: TOTAL PARENTERAL NUTRITION IV SCH ×10 (22:00)
[2017-10-06 23:39] VITALS: BP 85/57
[2017-10-07] VITALS (11 sets, daily range): BP systolic 91–115; BP diastolic 40–69
[2017-10-07] MEDS: ALPRAZolam 0.25 MG TABLET PO PRN (02:45)
[2017-10-07 04:50] LABS: BASO # 0.1 x10^3/uL (0.0-0.2); BASO % 1 % (0-3); EOS % 8 % (0-3); LYMPH # 0.7 x10^3/uL (1.0-4.8); LYMPH % 9 % (24-48); MEAN CORPUSCULAR HEMOGLOBIN 30 pg (25-35); MEAN CORPUSCULAR HGB CONC 32 g/dL (31-37); MEAN CORPUSCULAR VOLUME 92 fL (79-100); MONO % 5 % (0-9); NEUT % 77 % (31-73); PLATELET COUNT 217 x10^3/uL (140-400); RED BLOOD COUNT 2.24 x10^6/uL (3.50-5.40); RED CELL DISTRIBUTION WIDTH 26.9 % (11.5-14.5); WHITE BLOOD COUNT 7.8 x10^3/uL (4.0-11.0)
[2017-10-07 05:06] LABS: CALCIUM 8.2 mg/dL (8.5-10.1); CREATININE 0.6 mg/dL (0.6-1.0); POTASSIUM 3.5 mmol/L (3.5-5.1)
[2017-10-07 05:42] LABS: HEMATOCRIT 20.6 % (36.0-47.0); HEMOGLOBIN 6.7 g/dL (12.0-15.5)
[2017-10-07] MEDS: traMADol 50 MG TABLET PO PRN (08:16)
[2017-10-07] MEDS: FUROSEMIDE 20 MG TABLET PO SCH (08:17)
[2017-10-07] MEDS: PANTOPRAZOLE 40 MG TABLET.DR. PO SCH ×2 (08:17→16:30)
[2017-10-07] MEDS: BUDESONIDE 0.5 MG/2 ML NEBU. NEB SCH ×2 (08:26→19:30)
[2017-10-07] MEDS: IPRATRPIUM/ALBUTEROL 0.5/2.5MG 3 ML NEBU. NEB SCH ×3 (08:26→19:30)
--- NOTE | 2017-10-07 12:43 | PDOC ---
PULMONARY PROGRESS NOTES Subjective EXTUBATED 09/29 RESOLVED DELIRIUM WEAK, IMPROVING OFF 02 Vitals Vital Signs Date Time Temp Pulse Resp B/P (MAP) Pulse Ox O2 Delivery O2 Flow Rate FiO2 10/07/17 12:25 Room Air 10/07/17 11:52 97.8 89 14 103/58 (73) 97.8 10/07/17 10:38 99 10/07/17 09:52 2.0 General: Alert, Oriented X4, No acute distress Lungs: Clear Cardiovascular: S1, S2 Abdomen: Soft Neuro Exam: Alert Extremities: Other (WEAKNESS,1+EDEMA) Skin: Warm Labs Laboratory Tests Test 10/06/17 05:00 10/07/17 03:45 White Blood Count 12.4 x10^3/uL (4.0-11.0) 7.8 x10^3/uL (4.0-11.0) Red Blood Count 2.51 x10^6/uL (3.50-5.40) 2.24 x10^6/uL (3.50-5.40) Hemoglobin 7.2 g/dL (12.0-15.5) 6.7 g/dL (12.0-15.5) Hematocrit 22.4 % (36.0-47.0) 20.6 % (36.0-47.0) Mean Corpuscular Volume 89 fL (79-100) 92 fL (79-100) Mean Corpuscular Hemoglobin 29 pg (25-35) 30 pg (25-35) Mean Corpuscular Hemoglobin Concent 32 g/dL (31-37) 32 g/dL (31-37) Red Cell Distribution Width 25.8 % (11.5-14.5) 26.9 % (11.5-14.5) Platelet Count 257 x10^3/uL (140-400) 217 x10^3/uL (140-400) Neutrophils (%) (Auto) 82 % (31-73) 77 % (31-73) Lymphocytes (%) (Auto) 6 % (24-48) 9 % (24-48) Monocytes (%) (Auto) 4 % (0-9) 5 % (0-9) Eosinophils (%) (Auto) 7 % (0-3) 8 % (0-3) Basophils (%) (Auto) 1 % (0-3) 1 % (0-3) Neutrophils # (Auto) 10.2 x10^3uL (1.8-7.7) 6.0 x10^3uL (1.8-7.7) Lymphocytes # (Auto) 0.8 x10^3/uL (1.0-4.8) 0.7 x10^3/uL (1.0-4.8) Monocytes # (Auto) 0.5 x10^3/uL (0.0-1.1) 0.4 x10^3/uL (0.0-1.1) Eosinophils # (Auto) 0.8 x10^3/uL (0.0-0.7) 0.6 x10^3/uL (0.0-0.7) Basophils # (Auto) 0.1 x10^3/uL (0.0-0.2) 0.1 x10^3/uL (0.0-0.2) Sodium Level 141 mmol/L (136-145) 141 mmol/L (136-145) Potassium Level 3.8 mmol/L (3.5-5.1) 3.5 mmol/L (3.5-5.1) Chloride Level 111 mmol/L (98-107) 111 mmol/L (98-107) Carbon Dioxide Level 19 mmol/L (21-32) 21 mmol/L (21-32) Anion Gap 11 (6-14) 9 (6-14) Blood Urea Nitrogen 25 mg/dL (7-20) 22 mg/dL (7-20) Creatinine 0.7 mg/dL (0.6-1.0) 0.6 mg/dL (0.6-1.0) Estimated GFR (Cockcroft-Gault) 85.4 102.0 BUN/Creatinine Ratio 36 (6-20) Glucose Level 101 mg/dL (70-99) 76 mg/dL (70-99) Calcium Level 8.4 mg/dL (8.5-10.1) 8.2 mg/dL (8.5-10.1) Total Bilirubin 0.4 mg/dL (0.2-1.0) Aspartate Amino Transf (AST/SGOT) 21 U/L (15-37) Alanine Aminotransferase (ALT/SGPT) 41 U/L (14-59) Alkaline Phosphatase 53 U/L (46-116) Total Protein 5.0 g/dL (6.4-8.2) Albumin 2.1 g/dL (3.4-5.0) Albumin/Globulin Ratio 0.7 (1.0-1.7) Laboratory Tests Test 10/07/17 03:45 White Blood Count 7.8 x10^3/uL (4.0-11.0) Red Blood Count 2.24 x10^6/uL (3.50-5.40) Hemoglobin 6.7 g/dL (12.0-15.5) Hematocrit 20.6 % (36.0-47.0) Mean Corpuscular Volume 92 fL (79-100) Mean Corpuscular Hemoglobin 30 pg (25-35) Mean Corpuscular Hemoglobin Concent 32 g/dL (31-37) Red Cell Distribution Width 26.9 % (11.5-14.5) Platelet Count 217 x10^3/uL (140-400) Neutrophils (%) (Auto) 77 % (31-73) Lymphocytes (%) (Auto) 9 % (24-48) Monocytes (%) (Auto) 5 % (0-9) Eosinophils (%) (Auto) 8 % (0-3) Basophils (%) (Auto) 1 % (0-3) Neutrophils # (Auto) 6.0 x10^3uL (1.8-7.7) Lymphocytes # (Auto) 0.7 x10^3/uL (1.0-4.8) Monocytes # (Auto) 0.4 x10^3/uL (0.0-1.1) Eosinophils # (Auto) 0.6 x10^3/uL (0.0-0.7) Basophils # (Auto) 0.1 x10^3/uL (0.0-0.2) Sodium Level 141 mmol/L (136-145) Potassium Level 3.5 mmol/L (3.5-5.1) Chloride Level 111 mmol/L (98-107) Carbon Dioxide Level 21 mmol/L (21-32) Anion Gap 9 (6-14) Blood Urea Nitrogen 22 mg/dL (7-20) Creatinine 0.6 mg/dL (0.6-1.0) Estimated GFR (Cockcroft-Gault) 102.0 Glucose Level 76 mg/dL (70-99) Calcium Level 8.2 mg/dL (8.5-10.1) Medications Active Scripts Medications Dose Route/Sig Max Daily Dose Days Date Category Gabapentin 300 Mg Capsule 300 Mg PO TID 09/18/17 Reported Cymbalta (Duloxetine Hcl) 60 Mg Capsule.dr Penny Cap PO BID 09/18/17 Reported Hydrochlorothiazide Tablet (Hydrochlorothiazide) 25 Mg Tablet 1 Tab PO DAILY 09/17/17 Reported Xanax (Alprazolam) 1 Mg Tablet 1 Tab PO TID PRN 09/17/17 Reported Comments CXR 10/01 overall improving infiltrates Impression . 1. Acute hypoxic respiratory failure/ARDS/ S/P EXTUBATION, ON RA now/ DOING WELL 2. Anemia ongoing/ GI following, Await GI recommendations for EGD 3. COPD/ compensated 4. Acute renal failure, stable 5. Sepsis with hypotension POA, resolved 6. S/P Bronch so far BAL negative 7. Critical care induced myopathy, improving strength 8. bilateral interstitial infiltrates , ? etiology, suspect viral, improved 9. medication induced delirium/ almost resolved 10. Anxiety disorder Plan . PRN OXYGEN SPOKE WITH AT BEDSIDE/ delirium almost resolved SPEECH, PT/ DYSPHAGIA DIET/ TPN off d/w Dr Conley/ would recommend EGD. await GI input DVT PROPH / DC LOVENOX due to anemia ALL CULTURES NEGATIVE ANCA NEGATIVE OFF STEROIDS [facility]GRESS[facility] REHAB Hold transfer to rehab till anemia w/u done and Hb stabilizes JORGE LEDESMA MD Oct 07, 2017 12:43
--- NOTE | 2017-10-07 13:55 | PDOC ---
PROGRESS NOTES Chief Complaint Chief Complaint admitted Acute hypoxic respiratory failure consistent with ARDS, improving, now with post ICU myopathy weakness, anemia of acute blood loss, possibly upper gi, W/ prior melena, occassional diarrhea Pneumonia post ICU, encephalopathy, acute, ongoing delirium Hypotension COPD - stable, Sepsis, severe, improving Leukocytosis - on steroids now and S/p PRBCs Anemia, acute on chronic, marked iron deficiency on admit, Transaminitis - GEO improved Tobaccoism Anxiety d/o H/o Leg wounds History of Present Illness History of Present Illness stop the prop heparin PRBC to transfuse today, I would prefer to have EGD done before DC, unable to keep hgb still plan acute rehab, [facility] - [facility] pt c/o of dryness and thirst Extubated 09/30/2017 her is here 0700 this AM PT and OT, getting stronger, doing well Vitals Vitals Vital Signs Date Time Temp Pulse Resp B/P (MAP) Pulse Ox O2 Delivery O2 Flow Rate FiO2 10/07/17 13:00 97.6 82 16 108/68 (81) Room Air 97.6 10/07/17 10:38 99 10/07/17 09:52 2.0 Physical Exam Physical Exam up to chair today General: Alert, Oriented X3 Heart: Normal S1, Normal S2 Lungs: Clear Abdomen: Normal bowel sounds, Soft Extremities: No clubbing, No cyanosis, Normal pulses, Other (1+ edema) Skin: No rashes, No significant lesion Labs LABS Laboratory Tests Test 10/07/17 03:45 White Blood Count 7.8 x10^3/uL (4.0-11.0) Red Blood Count 2.24 x10^6/uL (3.50-5.40) Hemoglobin 6.7 g/dL (12.0-15.5) Hematocrit 20.6 % (36.0-47.0) Mean Corpuscular Volume 92 fL (79-100) Mean Corpuscular Hemoglobin 30 pg (25-35) Mean Corpuscular Hemoglobin Concent 32 g/dL (31-37) Red Cell Distribution Width 26.9 % (11.5-14.5) Platelet Count 217 x10^3/uL (140-400) Neutrophils (%) (Auto) 77 % (31-73) Lymphocytes (%) (Auto) 9 % (24-48) Monocytes (%) (Auto) 5 % (0-9) Eosinophils (%) (Auto) 8 % (0-3) Basophils (%) (Auto) 1 % (0-3) Neutrophils # (Auto) 6.0 x10^3uL (1.8-7.7) Lymphocytes # (Auto) 0.7 x10^3/uL (1.0-4.8) Monocytes # (Auto) 0.4 x10^3/uL (0.0-1.1) Eosinophils # (Auto) 0.6 x10^3/uL (0.0-0.7) Basophils # (Auto) 0.1 x10^3/uL (0.0-0.2) Sodium Level 141 mmol/L (136-145) Potassium Level 3.5 mmol/L (3.5-5.1) Chloride Level 111 mmol/L (98-107) Carbon Dioxide Level 21 mmol/L (21-32) Anion Gap 9 (6-14) Blood Urea Nitrogen 22 mg/dL (7-20) Creatinine 0.6 mg/dL (0.6-1.0) Estimated GFR (Cockcroft-Gault) 102.0 Glucose Level 76 mg/dL (70-99) Calcium Level 8.2 mg/dL (8.5-10.1) Review of Systems Review of Systems had non medical concerns today no n.vd Assessment and Plan Assessmemt and Plan Problems Medical Problems: (1) Dyspnea Status: Acute (2) Hypoalbuminemia Status: Acute (3) Metabolic acidosis Status: Acute (4) Pneumonia Status: Acute Problems: Comment Review of Relevant I have reviewed the following items tha (where applicable) has been applied. Labs Laboratory Tests Test 10/06/17 05:00 10/07/17 03:45 White Blood Count 12.4 x10^3/uL (4.0-11.0) 7.8 x10^3/uL (4.0-11.0) Red Blood Count 2.51 x10^6/uL (3.50-5.40) 2.24 x10^6/uL (3.50-5.40) Hemoglobin 7.2 g/dL (12.0-15.5) 6.7 g/dL (12.0-15.5) Hematocrit 22.4 % (36.0-47.0) 20.6 % (36.0-47.0) Mean Corpuscular Volume 89 fL (79-100) 92 fL (79-100) Mean Corpuscular Hemoglobin 29 pg (25-35) 30 pg (25-35) Mean Corpuscular Hemoglobin Concent 32 g/dL (31-37) 32 g/dL (31-37) Red Cell Distribution Width 25.8 % (11.5-14.5) 26.9 % (11.5-14.5) Platelet Count 257 x10^3/uL (140-400) 217 x10^3/uL (140-400) Neutrophils (%) (Auto) 82 % (31-73) 77 % (31-73) Lymphocytes (%) (Auto) 6 % (24-48) 9 % (24-48) Monocytes (%) (Auto) 4 % (0-9) 5 % (0-9) Eosinophils (%) (Auto) 7 % (0-3) 8 % (0-3) Basophils (%) (Auto) 1 % (0-3) 1 % (0-3) Neutrophils # (Auto) 10.2 x10^3uL (1.8-7.7) 6.0 x10^3uL (1.8-7.7) Lymphocytes # (Auto) 0.8 x10^3/uL (1.0-4.8) 0.7 x10^3/uL (1.0-4.8) Monocytes # (Auto) 0.5 x10^3/uL (0.0-1.1) 0.4 x10^3/uL (0.0-1.1) Eosinophils # (Auto) 0.8 x10^3/uL (0.0-0.7) 0.6 x10^3/uL (0.0-0.7) Basophils # (Auto) 0.1 x10^3/uL (0.0-0.2) 0.1 x10^3/uL (0.0-0.2) Sodium Level 141 mmol/L (136-145) 141 mmol/L (136-145) Potassium Level 3.8 mmol/L (3.5-5.1) 3.5 mmol/L (3.5-5.1) Chloride Level 111 mmol/L (98-107) 111 mmol/L (98-107) Carbon Dioxide Level 19 mmol/L (21-32) 21 mmol/L (21-32) Anion Gap 11 (6-14) 9 (6-14) Blood Urea Nitrogen 25 mg/dL (7-20) 22 mg/dL (7-20) Creatinine 0.7 mg/dL (0.6-1.0) 0.6 mg/dL (0.6-1.0) Estimated GFR (Cockcroft-Gault) 85.4 102.0 BUN/Creatinine Ratio 36 (6-20) Glucose Level 101 mg/dL (70-99) 76 mg/dL (70-99) Calcium Level 8.4 mg/dL (8.5-10.1) 8.2 mg/dL (8.5-10.1) Total Bilirubin 0.4 mg/dL (0.2-1.0) Aspartate Amino Transf (AST/SGOT) 21 U/L (15-37) Alanine Aminotransferase (ALT/SGPT) 41 U/L (14-59) Alkaline Phosphatase 53 U/L (46-116) Total Protein 5.0 g/dL (6.4-8.2) Albumin 2.1 g/dL (3.4-5.0) Albumin/Globulin Ratio 0.7 (1.0-1.7) Laboratory Tests Test 10/07/17 03:45 White Blood Count 7.8 x10^3/uL (4.0-11.0) Red Blood Count 2.24 x10^6/uL (3.50-5.40) Hemoglobin 6.7 g/dL (12.0-15.5) Hematocrit 20.6 % (36.0-47.0) Mean Corpuscular Volume 92 fL (79-100) Mean Corpuscular Hemoglobin 30 pg (25-35) Mean Corpuscular Hemoglobin Concent 32 g/dL (31-37) Red Cell Distribution Width 26.9 % (11.5-14.5) Platelet Count 217 x10^3/uL (140-400) Neutrophils (%) (Auto) 77 % (31-73) Lymphocytes (%) (Auto) 9 % (24-48) Monocytes (%) (Auto) 5 % (0-9) Eosinophils (%) (Auto) 8 % (0-3) Basophils (%) (Auto) 1 % (0-3) Neutrophils # (Auto) 6.0 x10^3uL (1.8-7.7) Lymphocytes # (Auto) 0.7 x10^3/uL (1.0-4.8) Monocytes # (Auto) 0.4 x10^3/uL (0.0-1.1) Eosinophils # (Auto) 0.6 x10^3/uL (0.0-0.7) Basophils # (Auto) 0.1 x10^3/uL (0.0-0.2) Sodium Level 141 mmol/L (136-145) Potassium Level 3.5 mmol/L (3.5-5.1) Chloride Level 111 mmol/L (98-107) Carbon Dioxide Level 21 mmol/L (21-32) Anion Gap 9 (6-14) Blood Urea Nitrogen 22 mg/dL (7-20) Creatinine 0.6 mg/dL (0.6-1.0) Estimated GFR (Cockcroft-Gault) 102.0 Glucose Level 76 mg/dL (70-99) Calcium Level 8.2 mg/dL (8.5-10.1) Microbiology 09/17/17 Blood Culture - Final, Complete NO GROWTH AFTER 5 DAYS 09/20/17 AFB Specimen Processing Tissue - Final, Resulted 09/20/17 Acid Fast Bacilli Culture, Resulted Pending 09/20/17 Gram Stain - Final, Resulted 09/20/17 Fungal Culture - Preliminary, Resulted 09/20/17 Fungal Culture Result 1 - Preliminary, Resulted Medications Current Medications Sodium Chloride 1,000 ml @ 125 mls/hr 1X ONCE IV Last administered on t 15:54; Start 09/17/17 at 15:15; Stop 09/17/17 at 23:14; Status DC Ondansetron HCl (Zofran) 4 mg PRN Q8HRS PRN IV NAUSEA/VOMITING; Start at 16:30; Stop 09/18/17 at 16:29; Status DC Ceftriaxone Sodium 50 ml @ 0 mls/hr 1X ONCE IV Last administered on t 17:33; Start 09/17/17 at 16:45; Stop 09/17/17 at 16:46; Status DC Azithromycin 250 ml @ 250 mls/hr 1X ONCE IV Last administered on 09/17/17 22:38; Start 09/17/17 at 16:30; Stop 09/17/17 at 17:29; Status DC Albuterol/ Ipratropium (Duoneb) 3 ml 1X ONCE NEB Last administered on 17:00; Start 09/17/17 at 16:45; Stop 09/17/17 at 16:46; Status DC Potassium Chloride (Klor-Con) 40 meq 1X ONCE PO Last administered on 16:57; Start 09/17/17 at 16:45; Stop 09/17/17 at 16:46; Status DC Azithromycin (Zithromax) 250 mg DAILY PO Last administered on 09/18/17 10:25 ; Start 09/18/17 at 09:00; Stop 09/19/17 at 10:30; Status DC Ceftriaxone Sodium 1 gm/ Dextrose 50 ml @ 100 mls/hr Q24H IV ; Start 09/17/17 at 17:15; Status UNV Albuterol/ Ipratropium (Duoneb) 3 ml Q4HRS NEB Last administered on 09/30/17 08:11; Start 09/17/17 at 20:00; Stop 09/30/17 at 09:21; Status DC Ceftriaxone Sodium (Rocephin) 1 gm Q24H IVP Last administered on 09/18/17 17: 55; Start 09/18/17 at 16:00; Stop 09/19/17 at 10:30; Status DC Guaifenesin (Robitussin Dm) 10 ml PRN Q6HRS PRN PO COUGH; Start 09/17/17 at 17 :15; Stop 09/30/17 at 09:21; Status DC Sodium Chloride 1,000 ml @ 125 mls/hr 1X ONCE IV Last administered on 17:45; Start 09/17/17 at 17:15; Stop 09/17/17 at 22:12; Status DC Info (Do NOT chart on this placeholder) 1 each 1X ONCE MC ; Start 09/17/17 at 19:00; Stop 09/17/17 at 19:01; Status UNV Influenza Virus Vaccine Quadrival (Fluarix Quad 2200-0983 Syringe) 0.5 ml ONCE ONCE VAX IM Last administered on 09/17/17 21:00; Start 09/17/17 at 21:00; Stop 09/17/17 at 21:01; Status DC Sodium Chloride 1,000 ml @ 130 mls/hr 1X ONCE IV Last administered on 22:31; Start 09/17/17 at 22:30; Stop 09/18/17 at 06:11; Status DC Sodium Bicarbonate 50 meq 1X ONCE IV Last administered on 09/17/17 22:31; Start 09/17/17 at 22:30; Stop 09/17/17 at 22:31; Status DC Alprazolam (Xanax) 1 mg PRN TID PRN PO ANXIETY Last administered on 09/19/17 02:19; Start 09/17/17 at 22:30; Stop 09/30/17 at 09:21; Status DC Furosemide (Lasix) 20 mg 1X ONCE IVP Last administered on 09/18/17 06:24; Start 09/18/17 at 06:30; Stop 09/18/17 at 06:31; Status DC Potassium Chloride (Klor-Con) 40 meq 1X ONCE PO Last administered on 10:25; Start 09/18/17 at 09:00; Stop 09/18/17 at 09:01; Status DC Iron Sucrose 500 mg/Sodium Chloride 275 ml @ 78.571 mls/ hr 1X ONCE IV Last administered on 09/18/17 10:24; Start 09/18/17 at 09:00; Stop 09/18/17 at 12 :29; Status DC Furosemide (Lasix) 20 mg 1X ONCE IVP Last administered on 09/18/17 10:30; Start 09/18/17 at 10:00; Stop 09/18/17 at 10:22; Status DC Pantoprazole Sodium (Protonix) 40 mg DAILYAC PO Last administered on 10:47; Start 09/18/17 at 11:00; Stop 09/19/17 at 13:41; Status DC Furosemide (Lasix) 20 mg 1X ONCE IVP Last administered on 09/18/17 10:47; Start 09/18/17 at 10:45; Stop 09/18/17 at 10:46; Status DC Potassium Chloride (Klor-Con) 40 meq 1X ONCE PO ; Start 09/18/17 at 11:45; Stop 09/18/17 at 11:46; Status DC Oxycodone/ Acetaminophen (Percocet 5/325) 1 tab PRN Q6HRS PRN PO PAIN Last administered on 10/06/17 17:29; Start 09/18/17 at 12:15 Lorazepam (Ativan) 1 mg PRN Q4HRS PRN IV ANXIETY / AGITATION Last administered on 09/18/17 12:25; Start 09/18/17 at 12:15; Stop 09/18/17 at 13:34; Status DC Fentanyl Citrate (Fentanyl 2ml Vial) 50 mcg PRN Q2HR PRN IV PAIN Last administered on 09/19/17 04:09; Start 09/18/17 at 12:15; Stop 09/30/17 at 09 :21; Status DC Lorazepam (Ativan) 2 mg PRN Q4HRS PRN IV ANXIETY / AGITATION Last administered on 09/29/17 05:17; Start 09/18/17 at 13:30; Stop 09/30/17 at 09:21; Status DC Quetiapine Fumarate (SEROquel) 25 mg HS PO Last administered on 09/18/17 21: 03; Start 09/18/17 at 21:00; Stop 09/19/17 at 10:35; Status DC Haloperidol Lactate (Haldol) 5 mg PRN Q12HRS PRN IVP AGITATION; Start at 13:45 Lorazepam (Ativan) 1 mg PRN Q4HRS PRN IV ANXIETY / AGITATION; Start 09/19/17 at 10:15; Stop 09/19/17 at 10:18; Status DC Lorazepam (Ativan) 4 mg 1X ONCE IV ; Start 09/19/17 at 10:30; Stop 09/19/17 at 10:31; Status DC Vancomycin HCl (Vanco Per Pharmacy) 1 each PRN DAILY PRN MC SEE COMMENTS Last administered on 09/23/17 12:36; Start 09/19/17 at 10:30; Stop 09/24/17 at 08 :36; Status DC Piperacillin Sod/ Tazobactam Sod (Zosyn Per Pharmacy) 1 each PRN DAILY PRN MC SEE COMMENTS; Start 09/19/17 at 10:30; Stop 09/24/17 at 08:41; Status DC Vancomycin HCl 2 gm/Dextrose 500 ml @ 250 mls/hr 1X ONCE IV Last administered on 09/19/17 14:53; Start 09/19/17 at 11:00; Stop 09/19/17 at 12 :59; Status DC Piperacillin Sod/ Tazobactam Sod (Zosyn) 3.375 gm Q6HRS IVP Last administered on 10/02/17 17:13; Start 09/19/17 at 11:00; Stop 10/02/17 at 19:14; Status DC Budesonide (Pulmicort) 0.5 mg RTBID NEB Last administered on 10/07/17 08:26; Start 09/19/17 at 20:00 Budesonide (Pulmicort) 0.5 mg 1X ONCE NEB Last administered on 09/19/17 12: 50; Start 09/19/17 at 10:45; Stop 09/19/17 at 10:46; Status DC Pantoprazole Sodium (PROTONIX VIAL for IV PUSH) 40 mg DAILYAC IVP Last administered on 10/03/17 08:23; Start 09/19/17 at 11:30; Stop 10/04/17 at 08 :51; Status DC Furosemide (Lasix) 40 mg DAILY IVP ; Start 09/19/17 at 11:00; Stop 09/20/17 at 13:20; Status DC Methylprednisolone Sodium Succinate (SOLU-Medrol 125MG VIAL) 125 mg 1X ONCE IV Last administered on 09/19/17 13:23; Start 09/19/17 at 10:45; Stop at 10:46; Status DC Prednisone (Prednisone) 40 mg DAILY PO ; Start 09/19/17 at 11:00; Stop at 09:02; Status DC Methylprednisolone Sodium Succinate (SOLU-Medrol 125MG VIAL) 125 mg Q8HRS IV Last administered on 09/23/17 05:43; Start 09/19/17 at 14:00; Stop 09/23/17 at 10:40; Status DC Midazolam HCl 100 ml @ 0 mls/hr CONT PRN IV SEE I/O RECORD; Start 09/19/17 at 11:00; Stop 09/19/17 at 12:51; Status DC Midazolam HCl (Versed) 5 mg 1X ONCE IV ; Start 09/19/17 at 11:00; Stop at 11:01; Status DC Fentanyl Citrate (Fentanyl 2ml Vial) 50 mcg 1X ONCE IV ; Start 09/19/17 at 11: 00; Stop 09/19/17 at 11:01; Status DC Midazolam HCl 100 ml @ As Directed STK-MED ONCE IV ; Start 09/19/17 at 10:55; Stop 09/19/17 at 10:56; Status DC Midazolam HCl (Versed) 5 mg STK-MED ONCE .ROUTE ; Start 09/19/17 at 10:55; Stop 09/19/17 at 10:56; Status DC Propofol 100 ml @ As Directed STK-MED ONCE IV ; Start 09/19/17 at 10:59; Stop 09/19/17 at 11:00; Status DC Norepinephrine Bitartrate 250 ml @ As Directed STK-MED ONCE IV ; Start at 10:59; Stop 09/19/17 at 11:00; Status DC Furosemide (Lasix) 20 mg 1X ONCE IVP ; Start 09/19/17 at 11:15; Stop at 11:16; Status DC Vecuronium [place] (Norcuron Bolus) 10 mg STK-MED ONCE IV ; Start 09/19/17 at 11:21; Stop 09/19/17 at 11:22; Status DC Fentanyl Citrate 30 ml @ 0 mls/hr CONT PRN IV PROTOCOL Last administered on 15:08; Start 09/19/17 at 11:30; Stop 09/23/17 at 15:24; Status DC Vecuronium [place] (Norcuron Bolus) 6 mg 1X ONCE IV Last administered on 09/19 11:42; Start 09/19/17 at 11:30; Stop 09/19/17 at 11:39; Status DC Propofol 10 ml @ 0 mls/hr 1X ONCE IV Last administered on 09/19/17 11:30; Start 09/19/17 at 11:30; Stop 09/19/17 at 11:39; Status DC Midazolam HCl 100 ml @ 0 mls/hr CONT PRN IV SEE I/O RECORD Last administered on 11/23/17at 00:40; Start 09/19/17 at 11:30; Stop 09/30/17 at 09:21; Status DC Norepinephrine Bitartrate 250 ml @ 0 mls/hr CONT PRN IV SEE I/O RECORD Last administered on 09/24/17 05:18; Start 09/19/17 at 11:30; Stop 09/30/17 at 09 :21; Status DC Succinylcholine Chloride (Anectine) 100 mg 1X ONCE IV Last administered on 11:42; Start 09/19/17 at 11:30; Stop 09/19/17 at 11:39; Status DC Sodium Bicarbonate 50 meq 1X ONCE IV Last administered on 09/19/17 13:23; Start 09/19/17 at 12:45; Stop 09/19/17 at 12:46; Status DC Sodium Bicarbonate 50 meq 1X ONCE IV Last administered on 09/19/17 13:23; Start 09/19/17 at 12:45; Stop 09/19/17 at 12:46; Status DC Lidocaine/Sodium Bicarbonate (Buffered Lidocaine 1%) 20 ml STK-MED ONCE IJ ; Start 09/19/17 at 13:34; Stop 09/19/17 at 13:35; Status DC Vecuronium [place] (Norcuron Bolus) 10 mg 1X ONCE IV Last administered on 15:05; Start 09/19/17 at 14:00; Stop 09/19/17 at 14:02; Status DC Lidocaine/Sodium Bicarbonate (Buffered Lidocaine 1%) 3 ml 1X ONCE IJ ; Start 09/19/17 at 14:45; Stop 09/19/17 at 14:46; Status DC Vancomycin HCl 1.25 gm/Dextrose 250 ml @ 166.667 mls/hr Q24H IV Last administered on 09/23/17 17:19; Start 09/20/17 at 15:00; Stop 09/24/17 at 08 :35; Status DC Vancomycin HCl 1 each 1X ONCE MC Last administered on 09/21/17 14:30; Start 09/21/17 at 14:30; Stop 09/21/17 at 14:31; Status DC Azithromycin 500 mg/Sodium Chloride 250 ml @ 250 mls/hr Q24H IV Last administered on 09/23/17 17:19; Start 09/19/17 at 16:30; Stop 09/24/17 at 08 :35; Status DC Norepinephrine Bitartrate (Levophed 8mg/ 250ml Premix Drip) 8 mg STK-MED ONCE IV ; Start 09/19/17 at 11:00; Stop 09/20/17 at 08:44; Status DC Midazolam HCl (Versed) 5 mg STK-MED ONCE .ROUTE ; Start 09/19/17 at 11:00; Stop 09/20/17 at 08:44; Status DC Amino Acids/ Glycerin/ Electrolytes 1,000 ml @ 80 mls/hr [id number] IV Last administered on 09/21/17 01:21; Start 09/20/17 at 10:00; Stop 09/22/17 at 07 :02; Status DC Info 1 each PRN DAILY PRN MC SEE COMMENTS; Start 09/20/17 at 10:00; Stop at 12:14; Status DC Furosemide (Lasix) 20 mg 1X ONCE IVP Last administered on 09/20/17t 10:21; Start 09/20/17 at 10:15; Stop 09/20/17 at 10:18; Status DC Info 1 each PRN DAILY PRN MC SEE COMMENTS; Start 09/20/17 at 11:00; Status UNV Vecuronium [place] (Norcuron Bolus) 10 mg 1X ONCE IV Last administered on 12:03; Start 09/20/17 at 11:15; Stop 09/20/17 at 11:24; Status DC Atropine Sulfate 0.5 mg STK-MED ONCE .ROUTE ; Start 09/20/17 at 11:47; Stop at 11:48; Status DC Epinephrine HCl (EPINEPHrine SYRINGE) 1 mg STK-MED ONCE .ROUTE ; Start at 11:47; Stop 09/20/17 at 11:48; Status DC Atropine Sulfate 0.5 mg STK-MED ONCE .ROUTE ; Start 09/20/17 at 12:00; Stop at 09:11; Status DC Epinephrine HCl (EPINEPHrine SYRINGE) 1 mg STK-MED ONCE .ROUTE ; Start at 12:00; Stop 09/21/17 at 09:11; Status DC Furosemide (Lasix) 20 mg DAILY IVP ; Start 09/21/17 at 11:15; Stop 09/21/17 at 11:20; Status DC Lorazepam (Ativan) 1 mg PRN Q1HR PRN IV ANXIETY / AGITATION Last administered on 09/28/17 17:04; Start 09/21/17 at 11:15; Stop 09/30/17 at 09:21; Status DC Albumin Human 250 ml @ 62.5 mls/hr 1X ONCE IV Last administered on 11:57; Start 09/21/17 at 11:30; Stop 09/21/17 at 15:29; Status DC Albumin Human 250 ml @ 62.5 mls/hr 1X ONCE IV Last administered on 14:29; Start 09/21/17 at 11:30; Stop 09/21/17 at 15:29; Status DC Micafungin Sodium 100 mg/Dextrose 100 ml @ 100 mls/hr Q24H IV Last administered on 09/23/17 13:17; Start 09/21/17 at 12:00; Stop 09/24/17 at 08 :35; Status DC Vecuronium [place] (Norcuron Bolus) 4 mg PRN Q4HRS PRN IV AGITATION; Start at 15:00; Stop 09/30/17 at 09:21; Status DC Dexmedetomidine HCl 200 mcg/ Sodium Chloride 50 ml @ 0 mls/hr CONT PRN IV PER PROTOCOL Last administered on 09/21/17 15:54; Start 09/21/17 at 15:30; Stop 09/30/17 at 09:21; Status DC Sodium Chloride 500 ml @ 500 mls/hr 1X PRN PRN IV SEE COMMENTS; Start at 15:30 Atropine Sulfate 0.5 mg PRN Q5MIN PRN IV SEE COMMENTS; Start 09/21/17 at 15:30 Propofol 100 ml @ 0 mls/hr CONT PRN IV PER PROTOCOL Last administered on 14:35; Start 09/21/17 at 16:45; Stop 09/30/17 at 09:21; Status DC Furosemide (Lasix) 20 mg 1X ONCE IVP Last administered on 09/22/17 09:41; Start 09/22/17 at 10:15; Stop 09/22/17 at 10:16; Status DC Chlorhexidine Gluconate (Peridex) 15 ml BID MM Last administered on 09/29/17 08:07; Start 09/22/17 at 21:00; Stop 09/29/17 at 20:22; Status DC Furosemide (Lasix) 20 mg 1X ONCE IVP Last administered on 09/22/17 17:55; Start 09/22/17 at 18:00; Stop 09/22/17 at 18:01; Status DC Furosemide (Lasix) 20 mg DAILY IVP Last administered on 09/23/17 13:16; Start 09/23/17 at 11:30; Stop 09/24/17 at 08:40; Status DC Methylprednisolone Sodium Succinate (SOLU-Medrol 125MG VIAL) 80 mg Q8HRS IV Last administered on 09/30/17 05:47; Start 09/23/17 at 14:00; Stop 09/30/17 at 09:26; Status DC Fentanyl Citrate 55 ml @ 0 mls/hr CONT PRN PRN IV PER PROTOCOL Last administered on 09/28/17 19:13; Start 09/23/17 at 12:15; Stop 09/30/17 at 09 :21; Status DC Dextrose 1,000 ml @ 25 mls/hr Q24H IV Last administered on 09/28/17 12:59; Start 09/23/17 at 11:45; Stop 10/04/17 at 13:14; Status DC Enoxaparin Sodium (Lovenox Per Pharmacy Prophylaxis Dosing) 1 each PRN DAILY PRN MC SEE COMMENTS; Start 09/23/17 at 16:30; Stop 09/24/17 at 08:41; Status DC Enoxaparin Sodium (Lovenox 40mg Syringe) 40 mg Q24H SQ Last administered on 17:32; Start 09/23/17 at 17:00; Stop 10/07/17 at 12:42; Status DC Bisacodyl (Dulcolax Tab) 5 mg PRN DAILY PRN PO CONSTIPATION; Start 09/24/17 at 09:30 Insulin Aspart (NovoLOG) 0-5 UNITS Q6HRS SQ Last administered on 09/29/17 12: 27; Start 09/25/17 at 18:00; Stop 10/01/17 at 02:54; Status DC Dextrose (Dextrose 50%-Water Syringe) 12.5 gm PRN Q15MIN PRN IV SEE COMMENTS; Start 09/25/17 at 12:30; Stop 10/01/17 at 02:54; Status DC Dextrose/Sodium Chloride 1,000 ml @ 75 mls/hr [id number] IV Last administered on 10/02/17 01:23; Start 09/29/17 at 19:00; Stop 10/02/17 at 09:07; Status DC Ondansetron HCl (Zofran) 4 mg PRN Q6HRS PRN IV NAUSEA/VOMITING Last administered on 10/01/17 20:33; Start 09/29/17 at 20:00 Albuterol/ Ipratropium (Duoneb) 3 ml TID NEB Last administered on 10/07/17 12: 25; Start 09/30/17 at 14:00 Methylprednisolone Sodium Succinate (SOLU-Medrol 125MG VIAL) 80 mg Q12HR IV Last administered on 10/01/17 08:56; Start 09/30/17 at 21:00; Stop 10/01/17 at 10:22; Status DC Iron Sucrose 500 mg/Sodium Chloride 275 ml @ 78.571 mls/ hr 1X ONCE IV Last administered on 10/01/17 10:08; Start 10/01/17 at 09:30; Stop 10/01/17 at 12 :59; Status DC Methylprednisolone Sodium Succinate (SOLU-Medrol 40MG VIAL) 40 mg Q12HR IV ; Start 10/01/17 at 21:00; Stop 10/01/17 at 21:00; Status DC Alprazolam (Xanax) 0.25 mg PRN Q8HRS PRN PO ANXIETY / AGITATION Last administered on 10/07/17 02:45; Start 10/01/17 at 10:30 Quetiapine Fumarate (SEROquel) 50 mg HS PO Last administered on 10/06/17 19:51 ; Start 10/01/17 at 21:00 Methylprednisolone Sodium Succinate (SOLU-Medrol 40MG VIAL) 40 mg QHS IV Last administered on 10/01/17 20:32; Start 10/01/17 at 21:00; Stop 10/02/17 at 10 :36; Status DC Saliva Substitute (Biotene Moisturizing Mouth) 2 spray PRN Q15MIN PRN PO DRY MOUTH; Start 10/02/17 at 09:15 Info 1 each PRN DAILY PRN MC SEE COMMENTS Last administered on 10/06/17 12:34 ; Start 10/02/17 at 09:15; Stop 10/07/17 at 11:35; Status DC Amino Acids/ Glycerin/ Electrolytes 1,000 ml @ 100 mls/hr Q10H IV Last administered on 10/02/17 09:57; Start 10/02/17 at 10:00; Stop 10/02/17 at 19 :59; Status DC Methylprednisolone Sodium Succinate (SOLU-Medrol 40MG VIAL) 20 mg QHS IV Last administered on 10/02/17 21:38; Start 10/02/17 at 21:00; Stop 10/03/17 at 12 :46; Status DC Sodium Acetate 40 meq/Potassium Chloride 50 meq/ Potassium Phosphate 13.6 mmol/ Magnesium Sulfate 10 meq/ Calcium Gluconate 10 meq/ Multivitamins 10 ml/Chromium / Copper/Manganese/ Seleni/Zn 1 ml/ Total Parenteral Nutrition/Amino Acids/ Dextrose/ Fat Emulsion Intravenous 1,512 ml @ 63 mls/hr TPN CONT IV Last administered on 10/02/17 21:37; Start 10/02/17 at 22:00; Stop 10/03/17 at 21 :59; Status DC Morphine Sulfate 2 mg PRN Q2HR PRN IV SEVERE PAIN Last administered on 01:33; Start 10/03/17 at 06:00 Lorazepam (Ativan) 1 mg PRN Q4HRS PRN IV ANXIETY / AGITATION Last administered on 10/04/17 01:15; Start 10/03/17 at 06:00 Potassium Phosphate 13.6 mmol/Sodium Chloride 104.5333 ml @ 52.267 m... Q2H IV Last administered on 10/03/17 17:28; Start 10/03/17 at 12:00; Stop at 15:59; Status DC Potassium Acetate 70 meq/Potassium Phosphate 13.6 mmol/Magnesium Sulfate 10 meq / Calcium Gluconate 10 meq/ Multivitamins 10 ml/Chromium/ Copper/Manganese/ Seleni/Zn 1 ml/ Total Parenteral Nutrition/Amino Acids/Dextrose/ Fat Emulsion Intravenous 1,992 ml @ 83 mls/hr TPN CONT IV Last administered on 10/03/17 22:00; Start 10/03/17 at 22:00; Stop 10/04/17 at 21:59; Status DC Vitamin A/Vitamin D (Vitamin A & D Ointment) 1 joe PRN BID PRN TP SKIN PROTECTION Last administered on 10/04/17 01:28; Start 10/03/17 at 14:00 Pantoprazole Sodium (Protonix) 40 mg DAILYAC PO Last administered on 10/07/17 08:17; Start 10/05/17 at 07:30 Simethicone (Gas-X) 80 mg PRN AFTMEALHC PRN PO GAS / BLOATING Last administered on 10/04/17 21:09; Start 10/04/17 at 09:00 Polyethylene Glycol (miraLAX PACKET) 17 gm PRN DAILY PRN PO CONSTIPATION; Start 10/04/17 at 09:00 Potassium Acetate 70 meq/Potassium Phosphate 13.6 mmol/Magnesium Sulfate 10 meq / Calcium Gluconate 10 meq/ Multivitamins 10 ml/Chromium/ Copper/Manganese/ Seleni/Zn 1 ml/ Total Parenteral Nutrition/Amino Acids/Dextrose/ Fat Emulsion Intravenous 1,992 ml @ 83 mls/hr TPN CONT IV Last administered on 10/05/17 00:02; Start 10/04/17 at 22:00; Stop 10/05/17 at 21:59; Status DC Iohexol (Omnipaque 300 Mg/ml) 75 ml 1X ONCE IV Last administered on 16:25; Start 10/04/17 at 15:30; Stop 10/04/17 at 15:31; Status DC Info (Do NOT chart on this entry -- for MONITORING) 1 each PRN DAILY PRN MC SEE COMMENTS; Start 10/04/17 at 15:45; Stop 10/06/17 at 15:44; Status DC Loperamide HCl (Imodium) 2 mg PRN Q1HR PRN PEG DIARRHEA Last administered on 12:22; Start 10/05/17 at 07:00 Furosemide (Lasix) 20 mg DAILY PO Last administered on 10/07/17 08:17; Start 10/05/17 at 09:00 Potassium Acetate 70 meq/Potassium Phosphate 13.6 mmol/Magnesium Sulfate 10 meq / Calcium Gluconate 10 meq/ Multivitamins 10 ml/Chromium/ Copper/Manganese/ Seleni/Zn 1 ml/ Total Parenteral Nutrition/Amino Acids/Dextrose/ Fat Emulsion Intravenous 1,600 ml @ 66.667 mls/ hr TPN CONT IV Last administered on 22:42; Start 10/05/17 at 22:00; Stop 10/06/17 at 21:59; Status DC Dicyclomine HCl (Bentyl) 10 mg PRN Q6HRS PRN PO MILD PAIN Last administered on 10/06/17 23:10; Start 10/05/17 at 17:15 Tramadol HCl (Ultram) 50 mg PRN Q6HRS PRN PO PAIN Last administered on 08:16; Start 10/06/17 at 10:45 Potassium Acetate 70 meq/Potassium Phosphate 13.6 mmol/Magnesium Sulfate 10 meq / Calcium Gluconate 10 meq/ Multivitamins 10 ml/Chromium/ Copper/Manganese/ Seleni/Zn 1 ml/ Sodium Acetate 30 meq/Total Parenteral Nutrition/Amino Acids/ Dextrose/ Fat Emulsion Intravenous 1,600 ml @ 66.667 mls/ hr TPN CONT IV ; Start 10/06/17 at 22:00; Stop 10/07/17 at 21:59 Active Scripts Active Reported Gabapentin 300 Mg Capsule 300 Mg PO TID Cymbalta (Duloxetine Hcl) 60 Mg Capsule. 1 Cap PO BID Hydrochlorothiazide Tablet (Hydrochlorothiazide) 25 Mg Tablet 1 Tab PO DAILY Xanax (Alprazolam) 1 Mg Tablet 1 Tab PO TID PRN Vitals/I & O Vital Sign - Last 24 Hours 10/06/17 10/06/17 10/06/17 10/06/17 14:09 14:55 17:29 18:40 Temp 98.2 98.2 Pulse 88 Resp 19 B/P (MAP) 106/62 (77) Pulse Ox 100 98 98 98 O2 Delivery Room Air Room Air Room Air Room Air O2 Flow Rate 2.0 10/06/17 10/06/17 10/06/17 10/06/17 19:29 19:44 20:00 23:39 Temp 98.1 97.6 98.1 97.6 Pulse 88 83 Resp 16 18 B/P (MAP) 102/50 (67) 85/57 (66) Pulse Ox 95 96 O2 Delivery Room Air Room Air Room Air Room Air 10/07/17 10/07/17 10/07/17 10/07/17 03:02 06:51 08:00 08:16 Temp 97.5 97.8 97.5 97.8 Pulse 84 65 Resp 20 19 B/P (MAP) 109/69 (82) 104/59 (74) Pulse Ox 99 97 97 O2 Delivery Room Air Room Air Room Air Room Air O2 Flow Rate 2.0 10/07/17 10/07/17 10/07/17 10/07/17 08:28 08:29 09:52 10:37 Temp 97.7 97.7 Pulse 89 Resp 14 B/P (MAP) 100/61 Pulse Ox 99 99 99 O2 Delivery Room Air Room Air Room Air O2 Flow Rate 2.0 10/07/17 10/07/17 10/07/17 10/07/17 10:38 10:52 11:00 11:52 Temp 97.7 97.6 97.6 97.8 97.7 97.6 97.6 97.8 Pulse 89 71 71 89 Resp 14 14 14 14 B/P (MAP) 100/61 (74) 101/57 101/57 (72) 103/58 Pulse Ox 99 O2 Delivery Room Air Room Air 10/07/17 10/07/17 10/07/17 11:52 12:25 13:00 Temp 97.8 97.6 97.8 97.6 Pulse 89 82 Resp 14 16 B/P (MAP) 103/58 (73) 108/68 (81) O2 Delivery Room Air Room Air Room Air Intake and Output 10/06/17 10/06/17 10/07/17 15:00 23:00 07:00 Intake Total 200 ml 560 ml Balance 200 ml 560 ml ABELARDO MOORE MD Oct 07, 2017 13:54
--- NOTE | 2017-10-07 14:57 | PDOC ---
PROGRESS NOTES Subjective Subjective HPI - Iron deficiency anemia. ROS - no GI bleed Objective Objective Vital Signs Date Time Temp Pulse Resp B/P (MAP) Pulse Ox O2 Delivery O2 Flow Rate FiO2 10/07/17 14:47 98.6 86 15 115/67 (83) 98 Room Air 98.6 10/07/17 09:52 2.0 Intake and Output 10/07/17 07:00 Intake Total 760 ml Balance 760 ml Intake Oral 760 ml # Voids 3 # Bowel Movements 3 Physical Exam Heart: Normal S1, Normal S2 General: Alert, Oriented X3, No acute distress Lungs: Clear to auscultation Neuro: Normal speech Assessment Assessment Problems Medical Problems: (1) Dyspnea Status: Acute (2) Hypoalbuminemia Status: Acute (3) Metabolic acidosis Status: Acute (4) Pneumonia Status: Acute IMPRESSION AND PLAN: 1. Iron deficiency anemia. She received Venofer 500 mg intravenous on 2016. I will continue to monitor hemoglobin and transfuse as needed. Hemoglobin improved to 7.7 after transfusion. Then worse at 6.6 on 09/19/17. s/p 1 unit 09/19/17. Hb worse at 7.5 on 10/01/17 and 7.6 on 10/02/17, s/p PRBC. Hb better at 9.1 s/p second dose of venofer 500 mg IV 10/01/17. Bleeding scan 10/02/17 is normal. Now 6.7, agree with PRBC and GI f/u 2. Leukocytosis, reactive from underlying pneumonia. Management per Pulmonary Medicine. WBC 7.8 3. Pneumonia/dyspnea - Improved. Comment Review of Relevant I have reviewed the following items tha (where applicable) has been applied. Labs Laboratory Tests Test 10/06/17 05:00 10/07/17 03:45 White Blood Count 12.4 x10^3/uL (4.0-11.0) 7.8 x10^3/uL (4.0-11.0) Red Blood Count 2.51 x10^6/uL (3.50-5.40) 2.24 x10^6/uL (3.50-5.40) Hemoglobin 7.2 g/dL (12.0-15.5) 6.7 g/dL (12.0-15.5) Hematocrit 22.4 % (36.0-47.0) 20.6 % (36.0-47.0) Mean Corpuscular Volume 89 fL (79-100) 92 fL (79-100) Mean Corpuscular Hemoglobin 29 pg (25-35) 30 pg (25-35) Mean Corpuscular Hemoglobin Concent 32 g/dL (31-37) 32 g/dL (31-37) Red Cell Distribution Width 25.8 % (11.5-14.5) 26.9 % (11.5-14.5) Platelet Count 257 x10^3/uL (140-400) 217 x10^3/uL (140-400) Neutrophils (%) (Auto) 82 % (31-73) 77 % (31-73) Lymphocytes (%) (Auto) 6 % (24-48) 9 % (24-48) Monocytes (%) (Auto) 4 % (0-9) 5 % (0-9) Eosinophils (%) (Auto) 7 % (0-3) 8 % (0-3) Basophils (%) (Auto) 1 % (0-3) 1 % (0-3) Neutrophils # (Auto) 10.2 x10^3uL (1.8-7.7) 6.0 x10^3uL (1.8-7.7) Lymphocytes # (Auto) 0.8 x10^3/uL (1.0-4.8) 0.7 x10^3/uL (1.0-4.8) Monocytes # (Auto) 0.5 x10^3/uL (0.0-1.1) 0.4 x10^3/uL (0.0-1.1) Eosinophils # (Auto) 0.8 x10^3/uL (0.0-0.7) 0.6 x10^3/uL (0.0-0.7) Basophils # (Auto) 0.1 x10^3/uL (0.0-0.2) 0.1 x10^3/uL (0.0-0.2) Sodium Level 141 mmol/L (136-145) 141 mmol/L (136-145) Potassium Level 3.8 mmol/L (3.5-5.1) 3.5 mmol/L (3.5-5.1) Chloride Level 111 mmol/L (98-107) 111 mmol/L (98-107) Carbon Dioxide Level 19 mmol/L (21-32) 21 mmol/L (21-32) Anion Gap 11 (6-14) 9 (6-14) Blood Urea Nitrogen 25 mg/dL (7-20) 22 mg/dL (7-20) Creatinine 0.7 mg/dL (0.6-1.0) 0.6 mg/dL (0.6-1.0) Estimated GFR (Cockcroft-Gault) 85.4 102.0 BUN/Creatinine Ratio 36 (6-20) Glucose Level 101 mg/dL (70-99) 76 mg/dL (70-99) Calcium Level 8.4 mg/dL (8.5-10.1) 8.2 mg/dL (8.5-10.1) Total Bilirubin 0.4 mg/dL (0.2-1.0) Aspartate Amino Transf (AST/SGOT) 21 U/L (15-37) Alanine Aminotransferase (ALT/SGPT) 41 U/L (14-59) Alkaline Phosphatase 53 U/L (46-116) Total Protein 5.0 g/dL (6.4-8.2) Albumin 2.1 g/dL (3.4-5.0) Albumin/Globulin Ratio 0.7 (1.0-1.7) Laboratory Tests Test 10/07/17 03:45 White Blood Count 7.8 x10^3/uL (4.0-11.0) Red Blood Count 2.24 x10^6/uL (3.50-5.40) Hemoglobin 6.7 g/dL (12.0-15.5) Hematocrit 20.6 % (36.0-47.0) Mean Corpuscular Volume 92 fL (79-100) Mean Corpuscular Hemoglobin 30 pg (25-35) Mean Corpuscular Hemoglobin Concent 32 g/dL (31-37) Red Cell Distribution Width 26.9 % (11.5-14.5) Platelet Count 217 x10^3/uL (140-400) Neutrophils (%) (Auto) 77 % (31-73) Lymphocytes (%) (Auto) 9 % (24-48) Monocytes (%) (Auto) 5 % (0-9) Eosinophils (%) (Auto) 8 % (0-3) Basophils (%) (Auto) 1 % (0-3) Neutrophils # (Auto) 6.0 x10^3uL (1.8-7.7) Lymphocytes # (Auto) 0.7 x10^3/uL (1.0-4.8) Monocytes # (Auto) 0.4 x10^3/uL (0.0-1.1) Eosinophils # (Auto) 0.6 x10^3/uL (0.0-0.7) Basophils # (Auto) 0.1 x10^3/uL (0.0-0.2) Sodium Level 141 mmol/L (136-145) Potassium Level 3.5 mmol/L (3.5-5.1) Chloride Level 111 mmol/L (98-107) Carbon Dioxide Level 21 mmol/L (21-32) Anion Gap 9 (6-14) Blood Urea Nitrogen 22 mg/dL (7-20) Creatinine 0.6 mg/dL (0.6-1.0) Estimated GFR (Cockcroft-Gault) 102.0 Glucose Level 76 mg/dL (70-99) Calcium Level 8.2 mg/dL (8.5-10.1) Microbiology 09/17/17 Blood Culture - Final, Complete NO GROWTH AFTER 5 DAYS 09/20/17 AFB Specimen Processing Tissue - Final, Resulted 09/20/17 Acid Fast Bacilli Culture, Resulted Pending 09/20/17 Gram Stain - Final, Resulted 09/20/17 Fungal Culture - Preliminary, Resulted 09/20/17 Fungal Culture Result 1 - Preliminary, Resulted Medications Current Medications Sodium Chloride 1,000 ml @ 125 mls/hr 1X ONCE IV Last administered on t 15:54; Start 09/17/17 at 15:15; Stop 09/17/17 at 23:14; Status DC Ondansetron HCl (Zofran) 4 mg PRN Q8HRS PRN IV NAUSEA/VOMITING; Start at 16:30; Stop 09/18/17 at 16:29; Status DC Ceftriaxone Sodium 50 ml @ 0 mls/hr 1X ONCE IV Last administered on t 17:33; Start 09/17/17 at 16:45; Stop 09/17/17 at 16:46; Status DC Azithromycin 250 ml @ 250 mls/hr 1X ONCE IV Last administered on 09/17/17 22:38; Start 09/17/17 at 16:30; Stop 09/17/17 at 17:29; Status DC Albuterol/ Ipratropium (Duoneb) 3 ml 1X ONCE NEB Last administered on 17:00; Start 09/17/17 at 16:45; Stop 09/17/17 at 16:46; Status DC Potassium Chloride (Klor-Con) 40 meq 1X ONCE PO Last administered on 16:57; Start 09/17/17 at 16:45; Stop 09/17/17 at 16:46; Status DC Azithromycin (Zithromax) 250 mg DAILY PO Last administered on 09/18/17 10:25 ; Start 09/18/17 at 09:00; Stop 09/19/17 at 10:30; Status DC Ceftriaxone Sodium 1 gm/ Dextrose 50 ml @ 100 mls/hr Q24H IV ; Start 09/17/17 at 17:15; Status UNV Albuterol/ Ipratropium (Duoneb) 3 ml Q4HRS NEB Last administered on 09/30/17 08:11; Start 09/17/17 at 20:00; Stop 09/30/17 at 09:21; Status DC Ceftriaxone Sodium (Rocephin) 1 gm Q24H IVP Last administered on 09/18/17 17: 55; Start 09/18/17 at 16:00; Stop 09/19/17 at 10:30; Status DC Guaifenesin (Robitussin Dm) 10 ml PRN Q6HRS PRN PO COUGH; Start 09/17/17 at 17 :15; Stop 09/30/17 at 09:21; Status DC Sodium Chloride 1,000 ml @ 125 mls/hr 1X ONCE IV Last administered on 17:45; Start 09/17/17 at 17:15; Stop 09/17/17 at 22:12; Status DC Info (Do NOT chart on this placeholder) 1 each 1X ONCE MC ; Start 09/17/17 at 19:00; Stop 09/17/17 at 19:01; Status UNV Influenza Virus Vaccine Quadrival (Fluarix Quad [id number] Syringe) 0.5 ml ONCE ONCE VAX IM Last administered on 09/17/17 21:00; Start 09/17/17 at 21:00; Stop 09/17/17 at 21:01; Status DC Sodium Chloride 1,000 ml @ 130 mls/hr 1X ONCE IV Last administered on 22:31; Start 09/17/17 at 22:30; Stop 09/18/17 at 06:11; Status DC Sodium Bicarbonate 50 meq 1X ONCE IV Last administered on 09/17/17 22:31; Start 09/17/17 at 22:30; Stop 09/17/17 at 22:31; Status DC Alprazolam (Xanax) 1 mg PRN TID PRN PO ANXIETY Last administered on 09/19/17 02:19; Start 09/17/17 at 22:30; Stop 09/30/17 at 09:21; Status DC Furosemide (Lasix) 20 mg 1X ONCE IVP Last administered on 09/18/17 06:24; Start 09/18/17 at 06:30; Stop 09/18/17 at 06:31; Status DC Potassium Chloride (Klor-Con) 40 meq 1X ONCE PO Last administered on 10:25; Start 09/18/17 at 09:00; Stop 09/18/17 at 09:01; Status DC Iron Sucrose 500 mg/Sodium Chloride 275 ml @ 78.571 mls/ hr 1X ONCE IV Last administered on 09/18/17 10:24; Start 09/18/17 at 09:00; Stop 09/18/17 at 12 :29; Status DC Furosemide (Lasix) 20 mg 1X ONCE IVP Last administered on 09/18/17 10:30; Start 09/18/17 at 10:00; Stop 09/18/17 at 10:22; Status DC Pantoprazole Sodium (Protonix) 40 mg DAILYAC PO Last administered on 10:47; Start 09/18/17 at 11:00; Stop 09/19/17 at 13:41; Status DC Furosemide (Lasix) 20 mg 1X ONCE IVP Last administered on 09/18/17 10:47; Start 09/18/17 at 10:45; Stop 09/18/17 at 10:46; Status DC Potassium Chloride (Klor-Con) 40 meq 1X ONCE PO ; Start 09/18/17 at 11:45; Stop 09/18/17 at 11:46; Status DC Oxycodone/ Acetaminophen (Percocet 5/325) 1 tab PRN Q6HRS PRN PO PAIN Last administered on 10/06/17 17:29; Start 09/18/17 at 12:15 Lorazepam (Ativan) 1 mg PRN Q4HRS PRN IV ANXIETY / AGITATION Last administered on 09/18/17 12:25; Start 09/18/17 at 12:15; Stop 09/18/17 at 13:34; Status DC Fentanyl Citrate (Fentanyl 2ml Vial) 50 mcg PRN Q2HR PRN IV PAIN Last administered on 09/19/17 04:09; Start 09/18/17 at 12:15; Stop 09/30/17 at 09 :21; Status DC Lorazepam (Ativan) 2 mg PRN Q4HRS PRN IV ANXIETY / AGITATION Last administered on 09/29/17 05:17; Start 09/18/17 at 13:30; Stop 09/30/17 at 09:21; Status DC Quetiapine Fumarate (SEROquel) 25 mg HS PO Last administered on 09/18/17 21: 03; Start 09/18/17 at 21:00; Stop 09/19/17 at 10:35; Status DC Haloperidol Lactate (Haldol) 5 mg PRN Q12HRS PRN IVP AGITATION; Start at 13:45 Lorazepam (Ativan) 1 mg PRN Q4HRS PRN IV ANXIETY / AGITATION; Start 09/19/17 at 10:15; Stop 09/19/17 at 10:18; Status DC Lorazepam (Ativan) 4 mg 1X ONCE IV ; Start 09/19/17 at 10:30; Stop 09/19/17 at 10:31; Status DC Vancomycin HCl (Vanco Per Pharmacy) 1 each PRN DAILY PRN MC SEE COMMENTS Last administered on 09/23/17 12:36; Start 09/19/17 at 10:30; Stop 09/24/17 at 08 :36; Status DC Piperacillin Sod/ Tazobactam Sod (Zosyn Per Pharmacy) 1 each PRN DAILY PRN MC SEE COMMENTS; Start 09/19/17 at 10:30; Stop 09/24/17 at 08:41; Status DC Vancomycin HCl 2 gm/Dextrose 500 ml @ 250 mls/hr 1X ONCE IV Last administered on 09/19/17 14:53; Start 09/19/17 at 11:00; Stop 09/19/17 at 12 :59; Status DC Piperacillin Sod/ Tazobactam Sod (Zosyn) 3.375 gm Q6HRS IVP Last administered on 10/02/17 17:13; Start 09/19/17 at 11:00; Stop 10/02/17 at 19:14; Status DC Budesonide (Pulmicort) 0.5 mg RTBID NEB Last administered on 10/07/17 08:26; Start 09/19/17 at 20:00 Budesonide (Pulmicort) 0.5 mg 1X ONCE NEB Last administered on 09/19/17 12: 50; Start 09/19/17 at 10:45; Stop 09/19/17 at 10:46; Status DC Pantoprazole Sodium (PROTONIX VIAL for IV PUSH) 40 mg DAILYAC IVP Last administered on 10/03/17 08:23; Start 09/19/17 at 11:30; Stop 10/04/17 at 08 :51; Status DC Furosemide (Lasix) 40 mg DAILY IVP ; Start 09/19/17 at 11:00; Stop 09/20/17 at 13:20; Status DC Methylprednisolone Sodium Succinate (SOLU-Medrol 125MG VIAL) 125 mg 1X ONCE IV Last administered on 09/19/17 13:23; Start 09/19/17 at 10:45; Stop at 10:46; Status DC Prednisone (Prednisone) 40 mg DAILY PO ; Start 09/19/17 at 11:00; Stop at 09:02; Status DC Methylprednisolone Sodium Succinate (SOLU-Medrol 125MG VIAL) 125 mg Q8HRS IV Last administered on 09/23/17 05:43; Start 09/19/17 at 14:00; Stop 09/23/17 at 10:40; Status DC Midazolam HCl 100 ml @ 0 mls/hr CONT PRN IV SEE I/O RECORD; Start 09/19/17 at 11:00; Stop 09/19/17 at 12:51; Status DC Midazolam HCl (Versed) 5 mg 1X ONCE IV ; Start 09/19/17 at 11:00; Stop at 11:01; Status DC Fentanyl Citrate (Fentanyl 2ml Vial) 50 mcg 1X ONCE IV ; Start 09/19/17 at 11: 00; Stop 09/19/17 at 11:01; Status DC Midazolam HCl 100 ml @ As Directed STK-MED ONCE IV ; Start 09/19/17 at 10:55; Stop 09/19/17 at 10:56; Status DC Midazolam HCl (Versed) 5 mg STK-MED ONCE .ROUTE ; Start 09/19/17 at 10:55; Stop 09/19/17 at 10:56; Status DC Propofol 100 ml @ As Directed STK-MED ONCE IV ; Start 09/19/17 at 10:59; Stop 09/19/17 at 11:00; Status DC Norepinephrine Bitartrate 250 ml @ As Directed STK-MED ONCE IV ; Start at 10:59; Stop 09/19/17 at 11:00; Status DC Furosemide (Lasix) 20 mg 1X ONCE IVP ; Start 09/19/17 at 11:15; Stop at 11:16; Status DC Vecuronium [place] (Norcuron Bolus) 10 mg STK-MED ONCE IV ; Start 09/19/17 at 11:21; Stop 09/19/17 at 11:22; Status DC Fentanyl Citrate 30 ml @ 0 mls/hr CONT PRN IV PROTOCOL Last administered on 15:08; Start 09/19/17 at 11:30; Stop 09/23/17 at 15:24; Status DC Vecuronium [place] (Norcuron Bolus) 6 mg 1X ONCE IV Last administered on 09/19 11:42; Start 09/19/17 at 11:30; Stop 09/19/17 at 11:39; Status DC Propofol 10 ml @ 0 mls/hr 1X ONCE IV Last administered on 09/19/17 11:30; Start 09/19/17 at 11:30; Stop 09/19/17 at 11:39; Status DC Midazolam HCl 100 ml @ 0 mls/hr CONT PRN IV SEE I/O RECORD Last administered on 09/27/17 00:40; Start 09/19/17 at 11:30; Stop 09/30/17 at 09:21; Status DC Norepinephrine Bitartrate 250 ml @ 0 mls/hr CONT PRN IV SEE I/O RECORD Last administered on 09/24/17 05:18; Start 09/19/17 at 11:30; Stop 09/30/17 at 09 :21; Status DC Succinylcholine Chloride (Anectine) 100 mg 1X ONCE IV Last administered on 11:42; Start 09/19/17 at 11:30; Stop 09/19/17 at 11:39; Status DC Sodium Bicarbonate 50 meq 1X ONCE IV Last administered on 09/19/17 13:23; Start 09/19/17 at 12:45; Stop 09/19/17 at 12:46; Status DC Sodium Bicarbonate 50 meq 1X ONCE IV Last administered on 09/19/17 13:23; Start 09/19/17 at 12:45; Stop 09/19/17 at 12:46; Status DC Lidocaine/Sodium Bicarbonate (Buffered Lidocaine 1%) 20 ml STK-MED ONCE IJ ; Start 09/19/17 at 13:34; Stop 09/19/17 at 13:35; Status DC Vecuronium [place] (Norcuron Bolus) 10 mg 1X ONCE IV Last administered on 15:05; Start 09/19/17 at 14:00; Stop 09/19/17 at 14:02; Status DC Lidocaine/Sodium Bicarbonate (Buffered Lidocaine 1%) 3 ml 1X ONCE IJ ; Start 09/19/17 at 14:45; Stop 09/19/17 at 14:46; Status DC Vancomycin HCl 1.25 gm/Dextrose 250 ml @ 166.667 mls/hr Q24H IV Last administered on 09/23/17 17:19; Start 09/20/17 at 15:00; Stop 09/24/17 at 08 :35; Status DC Vancomycin HCl 1 each 1X ONCE MC Last administered on 09/21/17 14:30; Start 09/21/17 at 14:30; Stop 09/21/17 at 14:31; Status DC Azithromycin 500 mg/Sodium Chloride 250 ml @ 250 mls/hr Q24H IV Last administered on 11/19/17at 17:19; Start 09/19/17 at 16:30; Stop 09/24/17 at 08 :35; Status DC Norepinephrine Bitartrate (Levophed 8mg/ 250ml Premix Drip) 8 mg STK-MED ONCE IV ; Start 09/19/17 at 11:00; Stop 09/20/17 at 08:44; Status DC Midazolam HCl (Versed) 5 mg STK-MED ONCE .ROUTE ; Start 09/19/17 at 11:00; Stop 09/20/17 at 08:44; Status DC Amino Acids/ Glycerin/ Electrolytes 1,000 ml @ 80 mls/hr [id number] IV Last administered on 09/21/17t 01:21; Start 09/20/17 at 10:00; Stop 09/22/17 at 07 :02; Status DC Info 1 each PRN DAILY PRN MC SEE COMMENTS; Start 09/20/17 at 10:00; Stop at 12:14; Status DC Furosemide (Lasix) 20 mg 1X ONCE IVP Last administered on 09/20/17t 10:21; Start 09/20/17 at 10:15; Stop 09/20/17 at 10:18; Status DC Info 1 each PRN DAILY PRN MC SEE COMMENTS; Start 09/20/17 at 11:00; Status UNV Vecuronium [place] (Norcuron Bolus) 10 mg 1X ONCE IV Last administered on t 12:03; Start 09/20/17 at 11:15; Stop 09/20/17 at 11:24; Status DC Atropine Sulfate 0.5 mg STK-MED ONCE .ROUTE ; Start 09/20/17 at 11:47; Stop at 11:48; Status DC Epinephrine HCl (EPINEPHrine SYRINGE) 1 mg STK-MED ONCE .ROUTE ; Start at 11:47; Stop 09/20/17 at 11:48; Status DC Atropine Sulfate 0.5 mg STK-MED ONCE .ROUTE ; Start 09/20/17 at 12:00; Stop at 09:11; Status DC Epinephrine HCl (EPINEPHrine SYRINGE) 1 mg STK-MED ONCE .ROUTE ; Start at 12:00; Stop 09/21/17 at 09:11; Status DC Furosemide (Lasix) 20 mg DAILY IVP ; Start 09/21/17 at 11:15; Stop 09/21/17 at 11:20; Status DC Lorazepam (Ativan) 1 mg PRN Q1HR PRN IV ANXIETY / AGITATION Last administered on 09/28/17 17:04; Start 09/21/17 at 11:15; Stop 09/30/17 at 09:21; Status DC Albumin Human 250 ml @ 62.5 mls/hr 1X ONCE IV Last administered on 11:57; Start 09/21/17 at 11:30; Stop 09/21/17 at 15:29; Status DC Albumin Human 250 ml @ 62.5 mls/hr 1X ONCE IV Last administered on 14:29; Start 09/21/17 at 11:30; Stop 09/21/17 at 15:29; Status DC Micafungin Sodium 100 mg/Dextrose 100 ml @ 100 mls/hr Q24H IV Last administered on 09/23/17 13:17; Start 09/21/17 at 12:00; Stop 09/24/17 at 08 :35; Status DC Vecuronium [place] (Norcuron Bolus) 4 mg PRN Q4HRS PRN IV AGITATION; Start at 15:00; Stop 09/30/17 at 09:21; Status DC Dexmedetomidine HCl 200 mcg/ Sodium Chloride 50 ml @ 0 mls/hr CONT PRN IV PER PROTOCOL Last administered on 09/21/17 15:54; Start 09/21/17 at 15:30; Stop 09/30/17 at 09:21; Status DC Sodium Chloride 500 ml @ 500 mls/hr 1X PRN PRN IV SEE COMMENTS; Start at 15:30 Atropine Sulfate 0.5 mg PRN Q5MIN PRN IV SEE COMMENTS; Start 09/21/17 at 15:30 Propofol 100 ml @ 0 mls/hr CONT PRN IV PER PROTOCOL Last administered on 14:35; Start 09/21/17 at 16:45; Stop 09/30/17 at 09:21; Status DC Furosemide (Lasix) 20 mg 1X ONCE IVP Last administered on 09/22/17 09:41; Start 09/22/17 at 10:15; Stop 09/22/17 at 10:16; Status DC Chlorhexidine Gluconate (Peridex) 15 ml BID MM Last administered on 09/29/17 08:07; Start 09/22/17 at 21:00; Stop 09/29/17 at 20:22; Status DC Furosemide (Lasix) 20 mg 1X ONCE IVP Last administered on 09/22/17 17:55; Start 09/22/17 at 18:00; Stop 09/22/17 at 18:01; Status DC Furosemide (Lasix) 20 mg DAILY IVP Last administered on 09/23/17 13:16; Start 09/23/17 at 11:30; Stop 09/24/17 at 08:40; Status DC Methylprednisolone Sodium Succinate (SOLU-Medrol 125MG VIAL) 80 mg Q8HRS IV Last administered on 09/30/17 05:47; Start 09/23/17 at 14:00; Stop 09/30/17 at 09:26; Status DC Fentanyl Citrate 55 ml @ 0 mls/hr CONT PRN PRN IV PER PROTOCOL Last administered on 09/28/17 19:13; Start 09/23/17 at 12:15; Stop 09/30/17 at 09 :21; Status DC Dextrose 1,000 ml @ 25 mls/hr Q24H IV Last administered on 09/28/17 12:59; Start 09/23/17 at 11:45; Stop 10/04/17 at 13:14; Status DC Enoxaparin Sodium (Lovenox Per Pharmacy Prophylaxis Dosing) 1 each PRN DAILY PRN MC SEE COMMENTS; Start 09/23/17 at 16:30; Stop 09/24/17 at 08:41; Status DC Enoxaparin Sodium (Lovenox 40mg Syringe) 40 mg Q24H SQ Last administered on 17:32; Start 09/23/17 at 17:00; Stop 10/07/17 at 12:42; Status DC Bisacodyl (Dulcolax Tab) 5 mg PRN DAILY PRN PO CONSTIPATION; Start 09/24/17 at 09:30 Insulin Aspart (NovoLOG) 0-5 UNITS Q6HRS SQ Last administered on 09/29/17 12: 27; Start 09/25/17 at 18:00; Stop 10/01/17 at 02:54; Status DC Dextrose (Dextrose 50%-Water Syringe) 12.5 gm PRN Q15MIN PRN IV SEE COMMENTS; Start 09/25/17 at 12:30; Stop 10/01/17 at 02:54; Status DC Dextrose/Sodium Chloride 1,000 ml @ 75 mls/hr [id number] IV Last administered on 10/02/17 01:23; Start 09/29/17 at 19:00; Stop 10/02/17 at 09:07; Status DC Ondansetron HCl (Zofran) 4 mg PRN Q6HRS PRN IV NAUSEA/VOMITING Last administered on 10/01/17 20:33; Start 09/29/17 at 20:00 Albuterol/ Ipratropium (Duoneb) 3 ml TID NEB Last administered on 10/07/17 12: 25; Start 09/30/17 at 14:00 Methylprednisolone Sodium Succinate (SOLU-Medrol 125MG VIAL) 80 mg Q12HR IV Last administered on 10/01/17 08:56; Start 09/30/17 at 21:00; Stop 10/01/17 at 10:22; Status DC Iron Sucrose 500 mg/Sodium Chloride 275 ml @ 78.571 mls/ hr 1X ONCE IV Last administered on 10/01/17 10:08; Start 10/01/17 at 09:30; Stop 10/01/17 at 12 :59; Status DC Methylprednisolone Sodium Succinate (SOLU-Medrol 40MG VIAL) 40 mg Q12HR IV ; Start 10/01/17 at 21:00; Stop 10/01/17 at 21:00; Status DC Alprazolam (Xanax) 0.25 mg PRN Q8HRS PRN PO ANXIETY / AGITATION Last administered on 10/07/17 02:45; Start 10/01/17 at 10:30 Quetiapine Fumarate (SEROquel) 50 mg HS PO Last administered on 10/06/17 19:51 ; Start 10/01/17 at 21:00 Methylprednisolone Sodium Succinate (SOLU-Medrol 40MG VIAL) 40 mg QHS IV Last administered on 10/01/17 20:32; Start 10/01/17 at 21:00; Stop 10/02/17 at 10 :36; Status DC Saliva Substitute (Biotene Moisturizing Mouth) 2 spray PRN Q15MIN PRN PO DRY MOUTH; Start 10/02/17 at 09:15 Info 1 each PRN DAILY PRN MC SEE COMMENTS Last administered on 10/06/17 12:34 ; Start 10/02/17 at 09:15; Stop 10/07/17 at 11:35; Status DC Amino Acids/ Glycerin/ Electrolytes 1,000 ml @ 100 mls/hr Q10H IV Last administered on 10/02/17 09:57; Start 10/02/17 at 10:00; Stop 10/02/17 at 19 :59; Status DC Methylprednisolone Sodium Succinate (SOLU-Medrol 40MG VIAL) 20 mg QHS IV Last administered on 10/02/17 21:38; Start 10/02/17 at 21:00; Stop 10/03/17 at 12 :46; Status DC Sodium Acetate 40 meq/Potassium Chloride 50 meq/ Potassium Phosphate 13.6 mmol/ Magnesium Sulfate 10 meq/ Calcium Gluconate 10 meq/ Multivitamins 10 ml/Chromium / Copper/Manganese/ Seleni/Zn 1 ml/ Total Parenteral Nutrition/Amino Acids/ Dextrose/ Fat Emulsion Intravenous 1,512 ml @ 63 mls/hr TPN CONT IV Last administered on 10/02/17 21:37; Start 10/02/17 at 22:00; Stop 10/03/17 at 21 :59; Status DC Morphine Sulfate 2 mg PRN Q2HR PRN IV SEVERE PAIN Last administered on 01:33; Start 10/03/17 at 06:00 Lorazepam (Ativan) 1 mg PRN Q4HRS PRN IV ANXIETY / AGITATION Last administered on 10/04/17 01:15; Start 10/03/17 at 06:00 Potassium Phosphate 13.6 mmol/Sodium Chloride 104.5333 ml @ 52.267 m... Q2H IV Last administered on 10/03/17 17:28; Start 10/03/17 at 12:00; Stop at 15:59; Status DC Potassium Acetate 70 meq/Potassium Phosphate 13.6 mmol/Magnesium Sulfate 10 meq / Calcium Gluconate 10 meq/ Multivitamins 10 ml/Chromium/ Copper/Manganese/ Seleni/Zn 1 ml/ Total Parenteral Nutrition/Amino Acids/Dextrose/ Fat Emulsion Intravenous 1,992 ml @ 83 mls/hr TPN CONT IV Last administered on 10/03/17 22:00; Start 10/03/17 at 22:00; Stop 10/04/17 at 21:59; Status DC Vitamin A/Vitamin D (Vitamin A & D Ointment) 1 joe PRN BID PRN TP SKIN PROTECTION Last administered on 10/04/17 01:28; Start 10/03/17 at 14:00 Pantoprazole Sodium (Protonix) 40 mg DAILYAC PO Last administered on 10/07/17 08:17; Start 10/05/17 at 07:30 Simethicone (Gas-X) 80 mg PRN AFTMEALHC PRN PO GAS / BLOATING Last administered on 10/04/17 21:09; Start 10/04/17 at 09:00 Polyethylene Glycol (miraLAX PACKET) 17 gm PRN DAILY PRN PO CONSTIPATION; Start 10/04/17 at 09:00 Potassium Acetate 70 meq/Potassium Phosphate 13.6 mmol/Magnesium Sulfate 10 meq / Calcium Gluconate 10 meq/ Multivitamins 10 ml/Chromium/ Copper/Manganese/ Seleni/Zn 1 ml/ Total Parenteral Nutrition/Amino Acids/Dextrose/ Fat Emulsion Intravenous 1,992 ml @ 83 mls/hr TPN CONT IV Last administered on 10/05/17 00:02; Start 10/04/17 at 22:00; Stop 10/05/17 at 21:59; Status DC Iohexol (Omnipaque 300 Mg/ml) 75 ml 1X ONCE IV Last administered on 16:25; Start 10/04/17 at 15:30; Stop 10/04/17 at 15:31; Status DC Info (Do NOT chart on this entry -- for MONITORING) 1 each PRN DAILY PRN MC SEE COMMENTS; Start 10/04/17 at 15:45; Stop 10/06/17 at 15:44; Status DC Loperamide HCl (Imodium) 2 mg PRN Q1HR PRN PEG DIARRHEA Last administered on 12:22; Start 10/05/17 at 07:00 Furosemide (Lasix) 20 mg DAILY PO Last administered on 10/07/17 08:17; Start 10/05/17 at 09:00 Potassium Acetate 70 meq/Potassium Phosphate 13.6 mmol/Magnesium Sulfate 10 meq / Calcium Gluconate 10 meq/ Multivitamins 10 ml/Chromium/ Copper/Manganese/ Seleni/Zn 1 ml/ Total Parenteral Nutrition/Amino Acids/Dextrose/ Fat Emulsion Intravenous 1,600 ml @ 66.667 mls/ hr TPN CONT IV Last administered on 22:42; Start 10/05/17 at 22:00; Stop 10/06/17 at 21:59; Status DC Dicyclomine HCl (Bentyl) 10 mg PRN Q6HRS PRN PO MILD PAIN Last administered on 10/06/17 23:10; Start 10/05/17 at 17:15 Tramadol HCl (Ultram) 50 mg PRN Q6HRS PRN PO PAIN Last administered on 08:16; Start 10/06/17 at 10:45 Potassium Acetate 70 meq/Potassium Phosphate 13.6 mmol/Magnesium Sulfate 10 meq / Calcium Gluconate 10 meq/ Multivitamins 10 ml/Chromium/ Copper/Manganese/ Seleni/Zn 1 ml/ Sodium Acetate 30 meq/Total Parenteral Nutrition/Amino Acids/ Dextrose/ Fat Emulsion Intravenous 1,600 ml @ 66.667 mls/ hr TPN CONT IV ; Start 10/06/17 at 22:00; Stop 10/07/17 at 21:59 Active Scripts Active Reported Gabapentin 300 Mg Capsule 300 Mg PO TID Cymbalta (Duloxetine Hcl) 60 Mg Capsule.dr 1 Cap PO BID Hydrochlorothiazide Tablet (Hydrochlorothiazide) 25 Mg Tablet 1 Tab PO DAILY Xanax (Alprazolam) 1 Mg Tablet 1 Tab PO TID PRN Vitals/I & O Vital Sign - Last 24 Hours 10/06/17 10/06/17 10/06/17 10/06/17 17:29 18:40 19:29 19:44 Temp 98.1 98.1 Pulse 88 Resp 16 B/P (MAP) 102/50 (67) Pulse Ox 98 98 95 O2 Delivery Room Air Room Air Room Air Room Air O2 Flow Rate 2.0 10/06/17 10/06/17 10/07/17 10/07/17 20:00 23:39 03:02 06:51 Temp 97.6 97.5 97.8 97.6 97.5 97.8 Pulse 83 84 65 Resp 18 20 19 B/P (MAP) 85/57 (66) 109/69 (82) 104/59 (74) Pulse Ox 96 99 97 O2 Delivery Room Air Room Air Room Air Room Air 10/07/17 10/07/17 10/07/17 10/07/17 08:00 08:16 08:28 08:29 Pulse Ox 97 99 99 O2 Delivery Room Air Room Air Room Air Room Air O2 Flow Rate 2.0 10/07/17 10/07/17 10/07/17 10/07/17 09:52 10:37 10:38 10:52 Temp 97.7 97.7 97.6 97.7 97.7 97.6 Pulse 89 89 71 Resp 14 14 14 B/P (MAP) 100/61 100/61 (74) 101/57 Pulse Ox 99 99 O2 Delivery Room Air Room Air O2 Flow Rate 2.0 10/07/17 10/07/17 10/07/17 10/07/17 11:00 11:52 11:52 12:25 Temp 97.6 97.8 97.8 97.6 97.8 97.8 Pulse 71 89 89 Resp 14 14 14 B/P (MAP) 101/57 (72) 103/58 103/58 (73) O2 Delivery Room Air Room Air Room Air 10/07/17 10/07/17 13:00 14:47 Temp 97.6 98.6 97.6 98.6 Pulse 82 86 Resp 16 15 B/P (MAP) 108/68 (81) 115/67 (83) Pulse Ox 98 O2 Delivery Room Air Room Air Intake and Output 10/06/17 10/06/17 10/07/17 15:00 23:00 07:00 Intake Total 200 ml 560 ml Balance 200 ml 560 ml ELLA ORTEGA MD Oct 07, 2017 14:57
--- NOTE | 2017-10-07 15:23 | PDOC ---
Subjective: Subjective: Pt reports brown stool Objective: Vital Signs: Vital Signs Date Time Temp Pulse Resp B/P (MAP) Pulse Ox O2 Delivery O2 Flow Rate FiO2 10/07/17 14:47 98.6 86 15 115/67 (83) 98 Room Air 98.6 10/07/17 09:52 2.0 Labs: Laboratory Tests Test 10/07/17 03:45 White Blood Count 7.8 x10^3/uL (4.0-11.0) Red Blood Count 2.24 x10^6/uL (3.50-5.40) Hemoglobin 6.7 g/dL (12.0-15.5) Hematocrit 20.6 % (36.0-47.0) Mean Corpuscular Volume 92 fL (79-100) Mean Corpuscular Hemoglobin 30 pg (25-35) Mean Corpuscular Hemoglobin Concent 32 g/dL (31-37) Red Cell Distribution Width 26.9 % (11.5-14.5) Platelet Count 217 x10^3/uL (140-400) Neutrophils (%) (Auto) 77 % (31-73) Lymphocytes (%) (Auto) 9 % (24-48) Monocytes (%) (Auto) 5 % (0-9) Eosinophils (%) (Auto) 8 % (0-3) Basophils (%) (Auto) 1 % (0-3) Neutrophils # (Auto) 6.0 x10^3uL (1.8-7.7) Lymphocytes # (Auto) 0.7 x10^3/uL (1.0-4.8) Monocytes # (Auto) 0.4 x10^3/uL (0.0-1.1) Eosinophils # (Auto) 0.6 x10^3/uL (0.0-0.7) Basophils # (Auto) 0.1 x10^3/uL (0.0-0.2) Sodium Level 141 mmol/L (136-145) Potassium Level 3.5 mmol/L (3.5-5.1) Chloride Level 111 mmol/L (98-107) Carbon Dioxide Level 21 mmol/L (21-32) Anion Gap 9 (6-14) Blood Urea Nitrogen 22 mg/dL (7-20) Creatinine 0.6 mg/dL (0.6-1.0) Estimated GFR (Cockcroft-Gault) 102.0 Glucose Level 76 mg/dL (70-99) Calcium Level 8.2 mg/dL (8.5-10.1) Physical Exam: Physical Exam: GEN: NAD HEENT: OP clear CV: S1S2 without murmurs, rubs, or gallops RESP: CTAB without wheezing, rhonchi, or crackles ABD: NABS, SNT/ND EXT: No edema NEURO: AAO x 3 Assessment & Plan: Assessment : Anemia- chronic , slow drift in Hg down to 6.7 from 7.2 without overt bleed, colonoscopies in past have been unrevealing, On PPI therapy, CPM with slowly improving delirium Abd pain- unrevealing CT except for body wall edema Plan: D/w Dr Thurman and Jarvis. They favor EGD. D/w patient and family member. She does not want EGD but says that she was told to say yes. Favor NPO after MN and have pt d/w Dr Baer in Problems: HESHAM BAXTER MD Oct 07, 2017 15:23
[2017-10-07] MEDS: oxyCODONE/APAP 5/325 1 TAB TABLET PO PRN (15:47)
[2017-10-07] MEDS: LOPERAMIDE 2 MG/10 ML ORAL SOLUTION. PEG PRN (15:49)
[2017-10-07 16:03] LABS: HEMATOCRIT 26.1 % (36.0-47.0); HEMOGLOBIN 8.5 g/dL (12.0-15.5)
[2017-10-07] MEDS: QUEtiapine 25 MG TABLET. PO SCH (21:09)
[2017-10-08 03:40] VITALS: BP 111/72
[2017-10-08 05:58] LABS: BASO # 0.1 x10^3/uL (0.0-0.2); BASO % 1 % (0-3); EOS % 9 % (0-3); HEMATOCRIT 25.2 % (36.0-47.0); HEMOGLOBIN 8.2 g/dL (12.0-15.5); LYMPH # 0.5 x10^3/uL (1.0-4.8); LYMPH % 8 % (24-48); MEAN CORPUSCULAR HEMOGLOBIN 30 pg (25-35); MEAN CORPUSCULAR HGB CONC 33 g/dL (31-37); MEAN CORPUSCULAR VOLUME 91 fL (79-100); MONO % 5 % (0-9); NEUT % 77 % (31-73); PLATELET COUNT 224 x10^3/uL (140-400); RED BLOOD COUNT 2.77 x10^6/uL (3.50-5.40); RED CELL DISTRIBUTION WIDTH 22.1 % (11.5-14.5); WHITE BLOOD COUNT 6.2 x10^3/uL (4.0-11.0)
[2017-10-08 06:23] LABS: ALBUMIN 1.9 g/dL (3.4-5.0); ALBUMIN/GLOBULIN RATIO 0.7 (1.0-1.7); CALCIUM 8.1 mg/dL (8.5-10.1); CREATININE 0.7 mg/dL (0.6-1.0); GFR 85.4; POTASSIUM 3.7 mmol/L (3.5-5.1); TOTAL BILIRUBIN 0.3 mg/dL (0.2-1.0); TOTAL PROTEIN 4.8 g/dL (6.4-8.2)
[2017-10-08 06:50] VITALS: BP 115/82
[2017-10-08] MEDS: PANTOPRAZOLE 40 MG TABLET.DR. PO SCH ×2 (07:30→16:30)
[2017-10-08] MEDS: BUDESONIDE 0.5 MG/2 ML NEBU. NEB SCH ×2 (07:36→18:32)
[2017-10-08] MEDS: IPRATRPIUM/ALBUTEROL 0.5/2.5MG 3 ML NEBU. NEB SCH ×3 (07:36→18:32)
--- NOTE | 2017-10-08 08:09 | PDOC ---
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 Calcium Gluconate 10 meq/ Multivitamins 10 ml/Chromium/ Copper/Manganese/ Seleni/Zn 1 ml/ Total Parenteral Nutrition/Amino Acids/Dextrose/ Fat Emulsion Intravenous 1,992 ml @ 83 mls/hr TPN CONT IV Last administered on 10/05/17 00:02; Start 10/04/17 at 22:00; Stop 10/05/17 at 21:59; Status DC Iohexol (Omnipaque 300 Mg/ml) 75 ml 1X ONCE IV Last administered on 16:25; Start 10/04/17 at 15:30; Stop 10/04/17 at 15:31; Status DC Info (Do NOT chart on this entry -- for MONITORING) 1 each PRN DAILY PRN MC SEE COMMENTS; Start 10/04/17 at 15:45; Stop 10/06/17 at 15:44; Status DC Loperamide HCl (Imodium) 2 mg PRN Q1HR PRN PEG DIARRHEA Last administered on 15:49; Start 10/05/17 at 07:00 Furosemide (Lasix) 20 mg DAILY PO Last administered on 10/07/17 08:17; Start 10/05/17 at 09:00 Potassium Acetate 70 meq/Potassium Phosphate 13.6 mmol/Magnesium Sulfate 10 meq / Calcium Gluconate 10 meq/ Multivitamins 10 ml/Chromium/ Copper/Manganese/ Seleni/Zn 1 ml/ Total Parenteral Nutrition/Amino Acids/Dextrose/ Fat Emulsion Intravenous 1,600 ml @ 66.667 mls/ hr TPN CONT IV Last administered on 22:42; Start 10/05/17 at 22:00; Stop 10/06/17 at 21:59; Status DC Dicyclomine HCl (Bentyl) 10 mg PRN Q6HRS PRN PO MILD PAIN Last administered on 10/06/17 23:10; Start 10/05/17 at 17:15 Tramadol HCl (Ultram) 50 mg PRN Q6HRS PRN PO PAIN Last administered on 08:16; Start 10/06/17 at 10:45 Potassium Acetate 70 meq/Potassium Phosphate 13.6 mmol/Magnesium Sulfate 10 meq / Calcium Gluconate 10 meq/ Multivitamins 10 ml/Chromium/ Copper/Manganese/ Seleni/Zn 1 ml/ Sodium Acetate 30 meq/Total Parenteral Nutrition/Amino Acids/ Dextrose/ Fat Emulsion Intravenous 1,600 ml @ 66.667 mls/ hr TPN CONT IV ; Start 10/06/17 at 22:00; Stop 10/07/17 at 21:59; Status DC Pantoprazole Sodium (Protonix) 40 mg BIDAC PO ; Start 10/07/17 at 16:30 Active Scripts Active Reported Gabapentin 300 Mg Capsule 300 Mg PO TID Cymbalta (Duloxetine Hcl) 60 Mg Capsule. 1 Cap PO BID Hydrochlorothiazide Tablet (Hydrochlorothiazide) 25 Mg Tablet 1 Tab PO DAILY Xanax (Alprazolam) 1 Mg Tablet 1 Tab PO TID PRN Vitals/I & O Vital Sign - Last 24 Hours 10/07/17 10/07/17 10/07/17 10/07/17 08:16 08:28 08:29 09:52 Pulse Ox 97 99 99 99 O2 Delivery Room Air Room Air Room Air Room Air O2 Flow Rate 2.0 2.0 10/07/17 10/07/17 10/07/17 10/07/17 10:37 10:38 10:52 11:00 Temp 97.7 97.7 97.6 97.6 97.7 97.7 97.6 97.6 Pulse 89 89 71 71 Resp 14 14 14 14 B/P (MAP) 100/61 100/61 (74) 101/57 101/57 (72) Pulse Ox 99 O2 Delivery Room Air Room Air 10/07/17 10/07/17 10/07/1710/07/17 11:52 11:52 12:25 13:00 Temp 97.8 97.8 97.6 97.8 97.8 97.6 Pulse 89 89 82 Resp 14 14 16 B/P (MAP) 103/58 103/58 (73) 108/68 (81) O2 Delivery Room Air Room Air Room Air 10/07/17 10/07/17 10/07/17 10/07/17 13:00 14:47 15:47 16:55 Temp 97.6 98.6 97.6 98.6 Pulse 82 86 Resp 16 15 B/P (MAP) 108/68 115/67 (83) Pulse Ox 98 98 98 O2 Delivery Room Air Room Air Room Air O2 Flow Rate 2.0 10/07/17 10/07/17 10/07/17 10/07/17 19:32 19:32 19:49 19:50 Temp 98.0 98.0 Pulse 72 Resp 20 B/P (MAP) 114/69 (84) Pulse Ox 99 O2 Delivery Room Air Room Air Room Air Room Air 10/07/17 10/08/17 10/08/17 10/08/17 23:39 03:40 06:50 07:39 Temp 98.1 97.9 97.3 98.1 97.9 97.3 Pulse 91 104 93 Resp 18 20 18 B/P (MAP) 91/40 (57) 111/72 (85) 115/82 (93) Pulse Ox 96 98 97 96 O2 Delivery Room Air Room Air Room Air Room Air Intake and Output 10/07/17 10/07/17 10/08/17 15:00 23:00 07:00 Intake Total 400 ml 600 ml Balance 400 ml 600 ml ABELARDO MOORE MD Oct 08, 2017 08:09
[2017-10-08] MEDS: FUROSEMIDE 20 MG TABLET PO SCH (09:00)
--- NOTE | 2017-10-08 09:02 | PDOC ---
PROGRESS NOTES Subjective Subjective HPI - Iron deficiency anemia. ROS - no GI bleed Objective Objective Vital Signs Date Time Temp Pulse Resp B/P (MAP) Pulse Ox O2 Delivery O2 Flow Rate FiO2 10/08/17 07:39 96 Room Air 10/08/17 06:50 97.3 93 18 115/82 (93) 97.3 10/07/17 15:47 2.0 Intake and Output 10/08/17 07:00 Intake Total 1000 ml Balance 1000 ml Intake Oral 1000 ml # Voids 6 Physical Exam Heart: Normal S1, Normal S2 General: Alert, No acute distress Lungs: Clear to auscultation Assessment Assessment Problems Medical Problems: (1) Dyspnea Status: Acute (2) Hypoalbuminemia Status: Acute (3) Metabolic acidosis Status: Acute (4) Pneumonia Status: Acute IMPRESSION AND PLAN: 1. Iron deficiency anemia. She received Venofer 500 mg intravenous on 2016. I will continue to monitor hemoglobin and transfuse as needed. Hemoglobin improved to 7.7 after transfusion. Then worse at 6.6 on 09/19/17. s/p 1 unit 09/19/17. Hb worse at 7.5 on 10/01/17 and 7.6 on 10/02/17, s/p PRBC. Hb better at 9.1 s/p second dose of venofer 500 mg IV 10/01/17. Bleeding scan 10/02/17 is normal. Hb 8.2 I d/w GI. Probable EGD planned. 2. Leukocytosis, reactive from underlying pneumonia. Management per Pulmonary Medicine. WBC 6.2 3. Pneumonia/dyspnea - Improved. Comment Review of Relevant I have reviewed the following items tha (where applicable) has been applied. Labs Laboratory Tests Test 10/07/17 03:45 10/07/17 15:55 10/08/17 05:23 White Blood Count 7.8 x10^3/uL (4.0-11.0) 6.2 x10^3/uL (4.0-11.0) Red Blood Count 2.24 x10^6/uL (3.50-5.40) 2.77 x10^6/uL (3.50-5.40) Hemoglobin 6.7 g/dL (12.0-15.5) 8.5 g/dL (12.0-15.5) 8.2 g/dL (12.0-15.5) Hematocrit 20.6 % (36.0-47.0) 26.1 % (36.0-47.0) 25.2 % (36.0-47.0) Mean Corpuscular Volume 92 fL (79-100) 91 fL (79-100) Mean Corpuscular Hemoglobin 30 pg (25-35) 30 pg (25-35) Mean Corpuscular Hemoglobin Concent 32 g/dL (31-37) 33 g/dL (31-37) 33 g/dL (31-37) Red Cell Distribution Width 26.9 % (11.5-14.5) 22.1 % (11.5-14.5) Platelet Count 217 x10^3/uL (140-400) 224 x10^3/uL (140-400) Neutrophils (%) (Auto) 77 % (31-73) 77 % (31-73) Lymphocytes (%) (Auto) 9 % (24-48) 8 % (24-48) Monocytes (%) (Auto) 5 % (0-9) 5 % (0-9) Eosinophils (%) (Auto) 8 % (0-3) 9 % (0-3) Basophils (%) (Auto) 1 % (0-3) 1 % (0-3) Neutrophils # (Auto) 6.0 x10^3uL (1.8-7.7) 4.7 x10^3uL (1.8-7.7) Lymphocytes # (Auto) 0.7 x10^3/uL (1.0-4.8) 0.5 x10^3/uL (1.0-4.8) Monocytes # (Auto) 0.4 x10^3/uL (0.0-1.1) 0.3 x10^3/uL (0.0-1.1) Eosinophils # (Auto) 0.6 x10^3/uL (0.0-0.7) 0.5 x10^3/uL (0.0-0.7) Basophils # (Auto) 0.1 x10^3/uL (0.0-0.2) 0.1 x10^3/uL (0.0-0.2) Sodium Level 141 mmol/L (136-145) 142 mmol/L (136-145) Potassium Level 3.5 mmol/L (3.5-5.1) 3.7 mmol/L (3.5-5.1) Chloride Level 111 mmol/L (98-107) 112 mmol/L (98-107) Carbon Dioxide Level 21 mmol/L (21-32) 21 mmol/L (21-32) Anion Gap 9 (6-14) 9 (6-14) Blood Urea Nitrogen 22 mg/dL (7-20) 17 mg/dL (7-20) Creatinine 0.6 mg/dL (0.6-1.0) 0.7 mg/dL (0.6-1.0) Estimated GFR (Cockcroft-Gault) 102.0 85.4 Glucose Level 76 mg/dL (70-99) 84 mg/dL (70-99) Calcium Level 8.2 mg/dL (8.5-10.1) 8.1 mg/dL (8.5-10.1) BUN/Creatinine Ratio 24 (6-20) Total Bilirubin 0.3 mg/dL (0.2-1.0) Aspartate Amino Transf (AST/SGOT) 22 U/L (15-37) Alanine Aminotransferase (ALT/SGPT) 47 U/L (14-59) Alkaline Phosphatase 61 U/L (46-116) Total Protein 4.8 g/dL (6.4-8.2) Albumin 1.9 g/dL (3.4-5.0) Albumin/Globulin Ratio 0.7 (1.0-1.7) Laboratory Tests Test 10/07/17 15:55 10/08/17 05:23 Hemoglobin 8.5 g/dL (12.0-15.5) 8.2 g/dL (12.0-15.5) Hematocrit 26.1 % (36.0-47.0) 25.2 % (36.0-47.0) Mean Corpuscular Hemoglobin Concent 33 g/dL (31-37) 33 g/dL (31-37) White Blood Count 6.2 x10^3/uL (4.0-11.0) Red Blood Count 2.77 x10^6/uL (3.50-5.40) Mean Corpuscular Volume 91 fL (79-100) Mean Corpuscular Hemoglobin 30 pg (25-35) Red Cell Distribution Width 22.1 % (11.5-14.5) Platelet Count 224 x10^3/uL (140-400) Neutrophils (%) (Auto) 77 % (31-73) Lymphocytes (%) (Auto) 8 % (24-48) Monocytes (%) (Auto) 5 % (0-9) Eosinophils (%) (Auto) 9 % (0-3) Basophils (%) (Auto) 1 % (0-3) Neutrophils # (Auto) 4.7 x10^3uL (1.8-7.7) Lymphocytes # (Auto) 0.5 x10^3/uL (1.0-4.8) Monocytes # (Auto) 0.3 x10^3/uL (0.0-1.1) Eosinophils # (Auto) 0.5 x10^3/uL (0.0-0.7) Basophils # (Auto) 0.1 x10^3/uL (0.0-0.2) Sodium Level 142 mmol/L (136-145) Potassium Level 3.7 mmol/L (3.5-5.1) Chloride Level 112 mmol/L (98-107) Carbon Dioxide Level 21 mmol/L (21-32) Anion Gap 9 (6-14) Blood Urea Nitrogen 17 mg/dL (7-20) Creatinine 0.7 mg/dL (0.6-1.0) Estimated GFR (Cockcroft-Gault) 85.4 BUN/Creatinine Ratio 24 (6-20) Glucose Level 84 mg/dL (70-99) Calcium Level 8.1 mg/dL (8.5-10.1) Total Bilirubin 0.3 mg/dL (0.2-1.0) Aspartate Amino Transf (AST/SGOT) 22 U/L (15-37) Alanine Aminotransferase (ALT/SGPT) 47 U/L (14-59) Alkaline Phosphatase 61 U/L (46-116) Total Protein 4.8 g/dL (6.4-8.2) Albumin 1.9 g/dL (3.4-5.0) Albumin/Globulin Ratio 0.7 (1.0-1.7) Microbiology 09/17/17 Blood Culture - Final, Complete NO GROWTH AFTER 5 DAYS 09/20/17 AFB Specimen Processing Tissue - Final, Resulted 09/20/17 Acid Fast Bacilli Culture, Resulted Pending 09/20/17 Gram Stain - Final, Resulted 09/20/17 Fungal Culture - Preliminary, Resulted 09/20/17 Fungal Culture Result 1 - Preliminary, Resulted Medications Current Medications Sodium Chloride 1,000 ml @ 125 mls/hr 1X ONCE IV Last administered on 15:54; Start 09/17/17 at 15:15; Stop 09/17/17 at 23:14; Status DC Ondansetron HCl (Zofran) 4 mg PRN Q8HRS PRN IV NAUSEA/VOMITING; Start at 16:30; Stop 09/18/17 at 16:29; Status DC Ceftriaxone Sodium 50 ml @ 0 mls/hr 1X ONCE IV Last administered on 17:33; Start 09/17/17 at 16:45; Stop 09/17/17 at 16:46; Status DC Azithromycin 250 ml @ 250 mls/hr 1X ONCE IV Last administered on 09/17/17 22:38; Start 09/17/17 at 16:30; Stop 09/17/17 at 17:29; Status DC Albuterol/ Ipratropium (Duoneb) 3 ml 1X ONCE NEB Last administered on 17:00; Start 09/17/17 at 16:45; Stop 09/17/17 at 16:46; Status DC Potassium Chloride (Klor-Con) 40 meq 1X ONCE PO Last administered on 16:57; Start 09/17/17 at 16:45; Stop 09/17/17 at 16:46; Status DC Azithromycin (Zithromax) 250 mg DAILY PO Last administered on 09/18/17 10:25 ; Start 09/18/17 at 09:00; Stop 09/19/17 at 10:30; Status DC Ceftriaxone Sodium 1 gm/ Dextrose 50 ml @ 100 mls/hr Q24H IV ; Start 09/17/17 at 17:15; Status UNV Albuterol/ Ipratropium (Duoneb) 3 ml Q4HRS NEB Last administered on 09/30/17 08:11; Start 09/17/17 at 20:00; Stop 09/30/17 at 09:21; Status DC Ceftriaxone Sodium (Rocephin) 1 gm Q24H IVP Last administered on 09/18/17 17: 55; Start 09/18/17 at 16:00; Stop 09/19/17 at 10:30; Status DC Guaifenesin (Robitussin Dm) 10 ml PRN Q6HRS PRN PO COUGH; Start 09/17/17 at 17 :15; Stop 09/30/17 at 09:21; Status DC Sodium Chloride 1,000 ml @ 125 mls/hr 1X ONCE IV Last administered on 17:45; Start 09/17/17 at 17:15; Stop 09/17/17 at 22:12; Status DC Info (Do NOT chart on this placeholder) 1 each 1X ONCE MC ; Start 09/17/17 at 19:00; Stop 09/17/17 at 19:01; Status UNV Influenza Virus Vaccine Quadrival (Fluarix Quad [id number] Syringe) 0.5 ml ONCE ONCE VAX IM Last administered on 09/17/17 21:00; Start 09/17/17 at 21:00; Stop 09/17/17 at 21:01; Status DC Sodium Chloride 1,000 ml @ 130 mls/hr 1X ONCE IV Last administered on 22:31; Start 09/17/17 at 22:30; Stop 09/18/17 at 06:11; Status DC Sodium Bicarbonate 50 meq 1X ONCE IV Last administered on 09/17/17 22:31; Start 09/17/17 at 22:30; Stop 09/17/17 at 22:31; Status DC Alprazolam (Xanax) 1 mg PRN TID PRN PO ANXIETY Last administered on 09/19/17 02:19; Start 09/17/17 at 22:30; Stop 09/30/17 at 09:21; Status DC Furosemide (Lasix) 20 mg 1X ONCE IVP Last administered on 09/18/17 06:24; Start 09/18/17 at 06:30; Stop 09/18/17 at 06:31; Status DC Potassium Chloride (Klor-Con) 40 meq 1X ONCE PO Last administered on 10:25; Start 09/18/17 at 09:00; Stop 09/18/17 at 09:01; Status DC Iron Sucrose 500 mg/Sodium Chloride 275 ml @ 78.571 mls/ hr 1X ONCE IV Last administered on 09/18/17 10:24; Start 09/18/17 at 09:00; Stop 09/18/17 at 12 :29; Status DC Furosemide (Lasix) 20 mg 1X ONCE IVP Last administered on 09/18/17 10:30; Start 09/18/17 at 10:00; Stop 09/18/17 at 10:22; Status DC Pantoprazole Sodium (Protonix) 40 mg DAILYAC PO Last administered on 10:47; Start 09/18/17 at 11:00; Stop 09/19/17 at 13:41; Status DC Furosemide (Lasix) 20 mg 1X ONCE IVP Last administered on 09/18/17 10:47; Start 09/18/17 at 10:45; Stop 09/18/17 at 10:46; Status DC Potassium Chloride (Klor-Con) 40 meq 1X ONCE PO ; Start 09/18/17 at 11:45; Stop 09/18/17 at 11:46; Status DC Oxycodone/ Acetaminophen (Percocet 5/325) 1 tab PRN Q6HRS PRN PO PAIN Last administered on 10/07/17 15:47; Start 09/18/17 at 12:15 Lorazepam (Ativan) 1 mg PRN Q4HRS PRN IV ANXIETY / AGITATION Last administered on 09/18/17 12:25; Start 09/18/17 at 12:15; Stop 09/18/17 at 13:34; Status DC Fentanyl Citrate (Fentanyl 2ml Vial) 50 mcg PRN Q2HR PRN IV PAIN Last administered on 09/19/17 04:09; Start 09/18/17 at 12:15; Stop 09/30/17 at 09 :21; Status DC Lorazepam (Ativan) 2 mg PRN Q4HRS PRN IV ANXIETY / AGITATION Last administered on 09/29/17 05:17; Start 09/18/17 at 13:30; Stop 09/30/17 at 09:21; Status DC Quetiapine Fumarate (SEROquel) 25 mg HS PO Last administered on 09/18/17 21: 03; Start 09/18/17 at 21:00; Stop 09/19/17 at 10:35; Status DC Haloperidol Lactate (Haldol) 5 mg PRN Q12HRS PRN IVP AGITATION; Start at 13:45 Lorazepam (Ativan) 1 mg PRN Q4HRS PRN IV ANXIETY / AGITATION; Start 09/19/17 at 10:15; Stop 09/19/17 at 10:18; Status DC Lorazepam (Ativan) 4 mg 1X ONCE IV ; Start 09/19/17 at 10:30; Stop 09/19/17 at 10:31; Status DC Vancomycin HCl (Vanco Per Pharmacy) 1 each PRN DAILY PRN MC SEE COMMENTS Last administered on 09/23/17 12:36; Start 09/19/17 at 10:30; Stop 09/24/17 at 08 :36; Status DC Piperacillin Sod/ Tazobactam Sod (Zosyn Per Pharmacy) 1 each PRN DAILY PRN MC SEE COMMENTS; Start 09/19/17 at 10:30; Stop 09/24/17 at 08:41; Status DC Vancomycin HCl 2 gm/Dextrose 500 ml @ 250 mls/hr 1X ONCE IV Last administered on 09/19/17 14:53; Start 09/19/17 at 11:00; Stop 09/19/17 at 12 :59; Status DC Piperacillin Sod/ Tazobactam Sod (Zosyn) 3.375 gm Q6HRS IVP Last administered on 10/02/17 17:13; Start 09/19/17 at 11:00; Stop 10/02/17 at 19:14; Status DC Budesonide (Pulmicort) 0.5 mg RTBID NEB Last administered on 10/08/17 07:36; Start 09/19/17 at 20:00 Budesonide (Pulmicort) 0.5 mg 1X ONCE NEB Last administered on 09/19/17 12: 50; Start 09/19/17 at 10:45; Stop 09/19/17 at 10:46; Status DC Pantoprazole Sodium (PROTONIX VIAL for IV PUSH) 40 mg DAILYAC IVP Last administered on 10/03/17 08:23; Start 09/19/17 at 11:30; Stop 10/04/17 at 08 :51; Status DC Furosemide (Lasix) 40 mg DAILY IVP ; Start 09/19/17 at 11:00; Stop 09/20/17 at 13:20; Status DC Methylprednisolone Sodium Succinate (SOLU-Medrol 125MG VIAL) 125 mg 1X ONCE IV Last administered on 09/19/17t 13:23; Start 09/19/17 at 10:45; Stop at 10:46; Status DC Prednisone (Prednisone) 40 mg DAILY PO ; Start 09/19/17 at 11:00; Stop at 09:02; Status DC Methylprednisolone Sodium Succinate (SOLU-Medrol 125MG VIAL) 125 mg Q8HRS IV Last administered on 09/23/17t 05:43; Start 09/19/17 at 14:00; Stop 09/23/17 at 10:40; Status DC Midazolam HCl 100 ml @ 0 mls/hr CONT PRN IV SEE I/O RECORD; Start 09/19/17 at 11:00; Stop 09/19/17 at 12:51; Status DC Midazolam HCl (Versed) 5 mg 1X ONCE IV ; Start 09/19/17 at 11:00; Stop at 11:01; Status DC Fentanyl Citrate (Fentanyl 2ml Vial) 50 mcg 1X ONCE IV ; Start 09/19/17 at 11: 00; Stop 09/19/17 at 11:01; Status DC Midazolam HCl 100 ml @ As Directed STK-MED ONCE IV ; Start 09/19/17 at 10:55; Stop 09/19/17 at 10:56; Status DC Midazolam HCl (Versed) 5 mg STK-MED ONCE .ROUTE ; Start 09/19/17 at 10:55; Stop 09/19/17 at 10:56; Status DC Propofol 100 ml @ As Directed STK-MED ONCE IV ; Start 09/19/17 at 10:59; Stop 09/19/17 at 11:00; Status DC Norepinephrine Bitartrate 250 ml @ As Directed STK-MED ONCE IV ; Start at 10:59; Stop 09/19/17 at 11:00; Status DC Furosemide (Lasix) 20 mg 1X ONCE IVP ; Start 09/19/17 at 11:15; Stop at 11:16; Status DC Vecuronium [place] (Norcuron Bolus) 10 mg STK-MED ONCE IV ; Start 09/19/17 at 11:21; Stop 09/19/17 at 11:22; Status DC Fentanyl Citrate 30 ml @ 0 mls/hr CONT PRN IV PROTOCOL Last administered on 15:08; Start 09/19/17 at 11:30; Stop 09/23/17 at 15:24; Status DC Vecuronium [employer] [place] (Norcuron Bolus) 6 mg 1X ONCE IV Last administered on 09/19 11:42; Start 09/19/17 at 11:30; Stop 09/19/17 at 11:39; Status DC Propofol 10 ml @ 0 mls/hr 1X ONCE IV Last administered on 09/19/17 11:30; Start 09/19/17 at 11:30; Stop 09/19/17 at 11:39; Status DC Midazolam HCl 100 ml @ 0 mls/hr CONT PRN IV SEE I/O RECORD Last administered on 09/27/17 00:40; Start 09/19/17 at 11:30; Stop 09/30/17 at 09:21; Status DC Norepinephrine Bitartrate 250 ml @ 0 mls/hr CONT PRN IV SEE I/O RECORD Last administered on 09/24/17 05:18; Start 09/19/17 at 11:30; Stop 09/30/17 at 09 :21; Status DC Succinylcholine Chloride (Anectine) 100 mg 1X ONCE IV Last administered on 11:42; Start 09/19/17 at 11:30; Stop 09/19/17 at 11:39; Status DC Sodium Bicarbonate 50 meq 1X ONCE IV Last administered on 09/19/17 13:23; Start 09/19/17 at 12:45; Stop 09/19/17 at 12:46; Status DC Sodium Bicarbonate 50 meq 1X ONCE IV Last administered on 09/19/17 13:23; Start 09/19/17 at 12:45; Stop 09/19/17 at 12:46; Status DC Lidocaine/Sodium Bicarbonate (Buffered Lidocaine 1%) 20 ml STK-MED ONCE IJ ; Start 09/19/17 at 13:34; Stop 09/19/17 at 13:35; Status DC Vecuronium [employer] [place] (Norcuron Bolus) 10 mg 1X ONCE IV Last administered on 15:05; Start 09/19/17 at 14:00; Stop 09/19/17 at 14:02; Status DC Lidocaine/Sodium Bicarbonate (Buffered Lidocaine 1%) 3 ml 1X ONCE IJ ; Start 09/19/17 at 14:45; Stop 09/19/17 at 14:46; Status DC Vancomycin HCl 1.25 gm/Dextrose 250 ml @ 166.667 mls/hr Q24H IV Last administered on 09/23/17 17:19; Start 09/20/17 at 15:00; Stop 09/24/17 at 08 :35; Status DC Vancomycin HCl 1 each 1X ONCE MC Last administered on 09/21/17 14:30; Start 09/21/17 at 14:30; Stop 09/21/17 at 14:31; Status DC Azithromycin 500 mg/Sodium Chloride 250 ml @ 250 mls/hr Q24H IV Last administered on 09/23/17 17:19; Start 09/19/17 at 16:30; Stop 09/24/17 at 08 :35; Status DC Norepinephrine Bitartrate (Levophed 8mg/ 250ml Premix Drip) 8 mg STK-MED ONCE IV ; Start 09/19/17 at 11:00; Stop 09/20/17 at 08:44; Status DC Midazolam HCl (Versed) 5 mg STK-MED ONCE .ROUTE ; Start 09/19/17 at 11:00; Stop 09/20/17 at 08:44; Status DC Amino Acids/ Glycerin/ Electrolytes 1,000 ml @ 80 mls/hr [id number] IV Last administered on 09/21/17 01:21; Start 09/20/17 at 10:00; Stop 09/22/17 at 07 :02; Status DC Info 1 each PRN DAILY PRN MC SEE COMMENTS; Start 09/20/17 at 10:00; Stop at 12:14; Status DC Furosemide (Lasix) 20 mg 1X ONCE IVP Last administered on 09/20/17 10:21; Start 09/20/17 at 10:15; Stop 09/20/17 at 10:18; Status DC Info 1 each PRN DAILY PRN MC SEE COMMENTS; Start 09/20/17 at 11:00; Status UNV Vecuronium [employer] [place] (Norcuron Bolus) 10 mg 1X ONCE IV Last administered on 12:03; Start 09/20/17 at 11:15; Stop 09/20/17 at 11:24; Status DC Atropine Sulfate 0.5 mg STK-MED ONCE .ROUTE ; Start 09/20/17 at 11:47; Stop at 11:48; Status DC Epinephrine HCl (EPINEPHrine SYRINGE) 1 mg STK-MED ONCE .ROUTE ; Start at 11:47; Stop 09/20/17 at 11:48; Status DC Atropine Sulfate 0.5 mg STK-MED ONCE .ROUTE ; Start 09/20/17 at 12:00; Stop at 09:11; Status DC Epinephrine HCl (EPINEPHrine SYRINGE) 1 mg STK-MED ONCE .ROUTE ; Start at 12:00; Stop 09/21/17 at 09:11; Status DC Furosemide (Lasix) 20 mg DAILY IVP ; Start 09/21/17 at 11:15; Stop 09/21/17 at 11:20; Status DC Lorazepam (Ativan) 1 mg PRN Q1HR PRN IV ANXIETY / AGITATION Last administered on 09/28/17 17:04; Start 09/21/17 at 11:15; Stop 09/30/17 at 09:21; Status DC Albumin Human 250 ml @ 62.5 mls/hr 1X ONCE IV Last administered on 11:57; Start 09/21/17 at 11:30; Stop 09/21/17 at 15:29; Status DC Albumin Human 250 ml @ 62.5 mls/hr 1X ONCE IV Last administered on 14:29; Start 09/21/17 at 11:30; Stop 09/21/17 at 15:29; Status DC Micafungin Sodium 100 mg/Dextrose 100 ml @ 100 mls/hr Q24H IV Last administered on 09/23/17 13:17; Start 09/21/17 at 12:00; Stop 09/24/17 at 08 :35; Status DC Vecuronium [employer] (Norcuron Bolus) 4 mg PRN Q4HRS PRN IV AGITATION; Start at 15:00; Stop 09/30/17 at 09:21; Status DC Dexmedetomidine HCl 200 mcg/ Sodium Chloride 50 ml @ 0 mls/hr CONT PRN IV PER PROTOCOL Last administered on 09/21/17 15:54; Start 09/21/17 at 15:30; Stop 09/30/17 at 09:21; Status DC Sodium Chloride 500 ml @ 500 mls/hr 1X PRN PRN IV SEE COMMENTS; Start at 15:30 Atropine Sulfate 0.5 mg PRN Q5MIN PRN IV SEE COMMENTS; Start 09/21/17 at 15:30 Propofol 100 ml @ 0 mls/hr CONT PRN IV PER PROTOCOL Last administered on 14:35; Start 09/21/17 at 16:45; Stop 09/30/17 at 09:21; Status DC Furosemide (Lasix) 20 mg 1X ONCE IVP Last administered on 09/22/17 09:41; Start 09/22/17 at 10:15; Stop 09/22/17 at 10:16; Status DC Chlorhexidine Gluconate (Peridex) 15 ml BID MM Last administered on 09/29/17 08:07; Start 09/22/17 at 21:00; Stop 09/29/17 at 20:22; Status DC Furosemide (Lasix) 20 mg 1X ONCE IVP Last administered on 09/22/17 17:55; Start 09/22/17 at 18:00; Stop 09/22/17 at 18:01; Status DC Furosemide (Lasix) 20 mg DAILY IVP Last administered on 09/23/17 13:16; Start 09/23/17 at 11:30; Stop 09/24/17 at 08:40; Status DC Methylprednisolone Sodium Succinate (SOLU-Medrol 125MG VIAL) 80 mg Q8HRS IV Last administered on 09/30/17 05:47; Start 09/23/17 at 14:00; Stop 09/30/17 at 09:26; Status DC Fentanyl Citrate 55 ml @ 0 mls/hr CONT PRN PRN IV PER PROTOCOL Last administered on 09/28/17 19:13; Start 09/23/17 at 12:15; Stop 09/30/17 at 09 :21; Status DC Dextrose 1,000 ml @ 25 mls/hr Q24H IV Last administered on 09/28/17 12:59; Start 09/23/17 at 11:45; Stop 10/04/17 at 13:14; Status DC Enoxaparin Sodium (Lovenox Per Pharmacy Prophylaxis Dosing) 1 each PRN DAILY PRN MC SEE COMMENTS; Start 09/23/17 at 16:30; Stop 09/24/17 at 08:41; Status DC Enoxaparin Sodium (Lovenox 40mg Syringe) 40 mg Q24H SQ Last administered on 17:32; Start 09/23/17 at 17:00; Stop 10/07/17 at 12:42; Status DC Bisacodyl (Dulcolax Tab) 5 mg PRN DAILY PRN PO CONSTIPATION; Start 09/24/17 at 09:30 Insulin Aspart (NovoLOG) 0-5 UNITS Q6HRS SQ Last administered on 09/29/17 12: 27; Start 09/25/17 at 18:00; Stop 10/01/17 at 02:54; Status DC Dextrose (Dextrose 50%-Water Syringe) 12.5 gm PRN Q15MIN PRN IV SEE COMMENTS; Start 09/25/17 at 12:30; Stop 10/01/17 at 02:54; Status DC Dextrose/Sodium Chloride 1,000 ml @ 75 mls/hr [id number] IV Last administered on 10/02/17 01:23; Start 09/29/17 at 19:00; Stop 10/02/17 at 09:07; Status DC Ondansetron HCl (Zofran) 4 mg PRN Q6HRS PRN IV NAUSEA/VOMITING Last administered on 10/01/17 20:33; Start 09/29/17 at 20:00 Albuterol/ Ipratropium (Duoneb) 3 ml TID NEB Last administered on 10/08/17 07: 36; Start 09/30/17 at 14:00 Methylprednisolone Sodium Succinate (SOLU-Medrol 125MG VIAL) 80 mg Q12HR IV Last administered on 10/01/17 08:56; Start 09/30/17 at 21:00; Stop 10/01/17 at 10:22; Status DC Iron Sucrose 500 mg/Sodium Chloride 275 ml @ 78.571 mls/ hr 1X ONCE IV Last administered on 10/01/17 10:08; Start 10/01/17 at 09:30; Stop 10/01/17 at 12 :59; Status DC Methylprednisolone Sodium Succinate (SOLU-Medrol 40MG VIAL) 40 mg Q12HR IV ; Start 10/01/17 at 21:00; Stop 10/01/17 at 21:00; Status DC Alprazolam (Xanax) 0.25 mg PRN Q8HRS PRN PO ANXIETY / AGITATION Last administered on 10/07/17 02:45; Start 10/01/17 at 10:30 Quetiapine Fumarate (SEROquel) 50 mg HS PO Last administered on 10/07/17 21:09 ; Start 10/01/17 at 21:00 Methylprednisolone Sodium Succinate (SOLU-Medrol 40MG VIAL) 40 mg QHS IV Last administered on 10/01/17 20:32; Start 10/01/17 at 21:00; Stop 10/02/17 at 10 :36; Status DC Saliva Substitute (Biotene Moisturizing Mouth) 2 spray PRN Q15MIN PRN PO DRY MOUTH; Start 10/02/17 at 09:15 Info 1 each PRN DAILY PRN MC SEE COMMENTS Last administered on 10/06/17 12:34 ; Start 10/02/17 at 09:15; Stop 10/07/17 at 11:35; Status DC Amino Acids/ Glycerin/ Electrolytes 1,000 ml @ 100 mls/hr Q10H IV Last administered on 10/02/17 09:57; Start 10/02/17 at 10:00; Stop 10/02/17 at 19 :59; Status DC Methylprednisolone Sodium Succinate (SOLU-Medrol 40MG VIAL) 20 mg QHS IV Last administered on 10/02/17 21:38; Start 10/02/17 at 21:00; Stop 10/03/17 at 12 :46; Status DC Sodium Acetate 40 meq/Potassium Chloride 50 meq/ Potassium Phosphate 13.6 mmol/ Magnesium Sulfate 10 meq/ Calcium Gluconate 10 meq/ Multivitamins 10 ml/Chromium / Copper/Manganese/ Seleni/Zn 1 ml/ Total Parenteral Nutrition/Amino Acids/ Dextrose/ Fat Emulsion Intravenous 1,512 ml @ 63 mls/hr TPN CONT IV Last administered on 10/02/17 21:37; Start 10/02/17 at 22:00; Stop 10/03/17 at 21 :59; Status DC Morphine Sulfate 2 mg PRN Q2HR PRN IV SEVERE PAIN Last administered on 01:33; Start 10/03/17 at 06:00 Lorazepam (Ativan) 1 mg PRN Q4HRS PRN IV ANXIETY / AGITATION Last administered on 10/04/17 01:15; Start 10/03/17 at 06:00 Potassium Phosphate 13.6 mmol/Sodium Chloride 104.5333 ml @ 52.267 m... Q2H IV Last administered on 10/03/17 17:28; Start 10/03/17 at 12:00; Stop at 15:59; Status DC Potassium Acetate 70 meq/Potassium Phosphate 13.6 mmol/Magnesium Sulfate 10 meq / Calcium Gluconate 10 meq/ Multivitamins 10 ml/Chromium/ Copper/Manganese/ Seleni/Zn 1 ml/ Total Parenteral Nutrition/Amino Acids/Dextrose/ Fat Emulsion Intravenous 1,992 ml @ 83 mls/hr TPN CONT IV Last administered on 10/03/17 22:00; Start 10/03/17 at 22:00; Stop 10/04/17 at 21:59; Status DC Vitamin A/Vitamin D (Vitamin A & D Ointment) 1 joe PRN BID PRN TP SKIN PROTECTION Last administered on 10/04/17 01:28; Start 10/03/17 at 14:00 Pantoprazole Sodium (Protonix) 40 mg DAILYAC PO Last administered on 10/07/17 08:17; Start 10/05/17 at 07:30; Stop 10/07/17 at 15:24; Status DC Simethicone (Gas-X) 80 mg PRN AFTMEALHC PRN PO GAS / BLOATING Last administered on 10/04/17 21:09; Start 10/04/17 at 09:00 Polyethylene Glycol (miraLAX PACKET) 17 gm PRN DAILY PRN PO CONSTIPATION; Start 10/04/17 at 09:00 Potassium Acetate 70 meq/Potassium Phosphate 13.6 mmol/Magnesium Sulfate 10 meq / Calcium Gluconate 10 meq/ Multivitamins 10 ml/Chromium/ Copper/Manganese/ Seleni/Zn 1 ml/ Total Parenteral Nutrition/Amino Acids/Dextrose/ Fat Emulsion Intravenous 1,992 ml @ 83 mls/hr TPN CONT IV Last administered on 10/05/17 00:02; Start 10/04/17 at 22:00; Stop 10/05/17 at 21:59; Status DC Iohexol (Omnipaque 300 Mg/ml) 75 ml 1X ONCE IV Last administered on 16:25; Start 10/04/17 at 15:30; Stop 10/04/17 at 15:31; Status DC Info (Do NOT chart on this entry -- for MONITORING) 1 each PRN DAILY PRN MC SEE COMMENTS; Start 10/04/17 at 15:45; Stop 10/06/17 at 15:44; Status DC Loperamide HCl (Imodium) 2 mg PRN Q1HR PRN PEG DIARRHEA Last administered on 15:49; Start 10/05/17 at 07:00 Furosemide (Lasix) 20 mg DAILY PO Last administered on 10/07/17 08:17; Start 10/05/17 at 09:00 Potassium Acetate 70 meq/Potassium Phosphate 13.6 mmol/Magnesium Sulfate 10 meq / Calcium Gluconate 10 meq/ Multivitamins 10 ml/Chromium/ Copper/Manganese/ Seleni/Zn 1 ml/ Total Parenteral Nutrition/Amino Acids/Dextrose/ Fat Emulsion Intravenous 1,600 ml @ 66.667 mls/ hr TPN CONT IV Last administered on 22:42; Start 10/05/17 at 22:00; Stop 10/06/17 at 21:59; Status DC Dicyclomine HCl (Bentyl) 10 mg PRN Q6HRS PRN PO MILD PAIN Last administered on 10/06/17 23:10; Start 10/05/17 at 17:15 Tramadol HCl (Ultram) 50 mg PRN Q6HRS PRN PO PAIN Last administered on 08:16; Start 10/06/17 at 10:45 Potassium Acetate 70 meq/Potassium Phosphate 13.6 mmol/Magnesium Sulfate 10 meq / Calcium Gluconate 10 meq/ Multivitamins 10 ml/Chromium/ Copper/Manganese/ Seleni/Zn 1 ml/ Sodium Acetate 30 meq/Total Parenteral Nutrition/Amino Acids/ Dextrose/ Fat Emulsion Intravenous 1,600 ml @ 66.667 mls/ hr TPN CONT IV ; Start 10/06/17 at 22:00; Stop 10/07/17 at 21:59; Status DC Pantoprazole Sodium (Protonix) 40 mg BIDAC PO ; Start 10/07/17 at 16:30 Active Scripts Active Reported Gabapentin 300 Mg Capsule 300 Mg PO TID Cymbalta (Duloxetine Hcl) 60 Mg Capsule. 1 Cap PO BID Hydrochlorothiazide Tablet (Hydrochlorothiazide) 25 Mg Tablet 1 Tab PO DAILY Xanax (Alprazolam) 1 Mg Tablet 1 Tab PO TID PRN Vitals/I & O Vital Sign - Last 24 Hours 10/07/17 10/07/17 10/07/17 10/07/17 09:52 10:37 10:38 10:52 Temp 97.7 97.7 97.6 97.7 97.7 97.6 Pulse 89 89 71 Resp 14 14 14 B/P (MAP) 100/61 100/61 (74) 101/57 Pulse Ox 99 99 O2 Delivery Room Air Room Air O2 Flow Rate 2.0 10/07/17 10/07/17 10/07/17 10/07/17 11:00 11:52 11:52 12:25 Temp 97.6 97.8 97.8 97.6 97.8 97.8 Pulse 71 89 89 Resp 14 14 14 B/P (MAP) 101/57 (72) 103/58 103/58 (73) O2 Delivery Room Air Room Air Room Air 10/07/17 10/07/17 10/07/17 10/07/17 13:00 13:00 14:47 15:47 Temp 97.6 97.6 98.6 97.6 97.6 98.6 Pulse 82 82 86 Resp 16 16 15 B/P (MAP) 108/68 (81) 108/68 115/67 (83) Pulse Ox 98 98 O2 Delivery Room Air Room Air Room Air O2 Flow Rate 2.0 10/07/17 10/07/17 10/07/17 10/07/17 16:55 19:32 19:32 19:49 Temp 98.0 98.0 Pulse 72 Resp 20 B/P (MAP) 114/69 (84) Pulse Ox 98 99 O2 Delivery Room Air Room Air Room Air Room Air 10/07/17 10/07/17 10/08/17 10/08/17 19:50 23:39 03:40 06:50 Temp 98.1 97.9 97.3 98.1 97.9 97.3 Pulse 91 104 93 Resp 18 20 18 B/P (MAP) 91/40 (57) 111/72 (85) 115/82 (93) Pulse Ox 96 98 97 O2 Delivery Room Air Room Air Room Air Room Air 10/08/17 07:39 Pulse Ox 96 O2 Delivery Room Air Intake and Output 10/07/17 10/07/17 10/08/17 15:00 23:00 07:00 Intake Total 400 ml 600 ml Balance 400 ml 600 ml ELLA ORTEGA MD Oct 08, 2017 09:01
--- NOTE | 2017-10-08 09:36 | PDOC ---
Objective: Objective: Out of room, RN says walking. D/w Dr. Conley, Dr. Baer, Dr. Tran, and GI lab. Vital Signs: Vital Signs Date Time Temp Pulse Resp B/P (MAP) Pulse Ox O2 Delivery O2 Flow Rate FiO2 10/08/17 07:39 96 Room Air 10/08/17 06:50 97.3 93 18 115/82 (93) 97.3 10/07/17 15:47 2.0 Labs: Laboratory Tests Test 10/07/17 15:55 10/08/17 05:23 Hemoglobin 8.5 g/dL 8.2 g/dL Hematocrit 26.1 % 25.2 % Mean Corpuscular Hemoglobin Concent 33 g/dL 33 g/dL White Blood Count 6.2 x10^3/uL Red Blood Count 2.77 x10^6/uL Mean Corpuscular Volume 91 fL Mean Corpuscular Hemoglobin 30 pg Red Cell Distribution Width 22.1 % Platelet Count 224 x10^3/uL Neutrophils (%) (Auto) 77 % Lymphocytes (%) (Auto) 8 % Monocytes (%) (Auto) 5 % Eosinophils (%) (Auto) 9 % Basophils (%) (Auto) 1 % Neutrophils # (Auto) 4.7 x10^3uL Lymphocytes # (Auto) 0.5 x10^3/uL Monocytes # (Auto) 0.3 x10^3/uL Eosinophils # (Auto) 0.5 x10^3/uL Basophils # (Auto) 0.1 x10^3/uL Sodium Level 142 mmol/L Potassium Level 3.7 mmol/L Chloride Level 112 mmol/L Carbon Dioxide Level 21 mmol/L Anion Gap 9 Blood Urea Nitrogen 17 mg/dL Creatinine 0.7 mg/dL Estimated GFR (Cockcroft-Gault) 85.4 BUN/Creatinine Ratio 24 Glucose Level 84 mg/dL Calcium Level 8.1 mg/dL Total Bilirubin 0.3 mg/dL Aspartate Amino Transf (AST/SGOT) 22 U/L Alanine Aminotransferase (ALT/SGPT) 47 U/L Alkaline Phosphatase 61 U/L Total Protein 4.8 g/dL Albumin 1.9 g/dL Albumin/Globulin Ratio 0.7 Imaging: CT A/P 10/04/17 Impression: 1. No acute findings in the abdomen or pelvis. 2. Inflammation/edema noted in the pelvic wall and upper thigh soft tissue. This may be secondary to cellulitis or fluid overload state. 3. Small bilateral pleural effusions, right more than left. PE: no exam A/P: STUART -Hgb fluctuates, last transfusion 10/07 -normal BUN Resp failure, delirium - improved -- Keep NPO, tentatively plan for EGD w/ Dr. Tran this afternoon, r/o UGI source for anemia. Update - returned to room to d/w pt. While she is a bit upset that she must remain NPO until this afternoon, she and her agree to EGD. SHAHLA FISHER Oct 08, 2017 09:35
--- NOTE | 2017-10-08 10:17 | PDOC ---
PROGRESS NOTES Assessment Problems Medical Problems: (1) Dyspnea Status: Acute (2) Hypoalbuminemia Status: Acute (3) Metabolic acidosis Status: Acute (4) Pneumonia Status: Acute Metabolic encephalopathy related to critical illness, continues improving Critical illness neuropathy and myopathy, also improving Elevated ESR resolved Anemia, required blood transfusion yesterday Plan No need for further testing Inpatient rehab Discussed with patient and Subjective No complaints Objective Vital Signs Date Time Temp Pulse Resp B/P (MAP) Pulse Ox O2 Delivery O2 Flow Rate FiO2 10/08/17 08:05 Room Air 10/08/17 07:39 96 10/08/17 06:50 97.3 93 18 115/82 (93) 97.3 10/07/17 15:47 2.0 Intake and Output 10/08/17 07:00 Intake Total 1000 ml Balance 1000 ml Intake Oral 1000 ml # Voids 6 PHYSICAL EXAM Alert. Oriented to person, month, year, location PERRL. EOMI. CN: no focal findings. Muscle tone: normal. Muscle strength: 4/5 DTR: 1+ Plantar reflex: Flexor Gait: not examined in bed. Sensory exam: no abnormal findings. No cerebellar signs elicited. Review of Relevant I have reviewed the following items tha (where applicable) has been applied. Labs Laboratory Tests Test 10/07/17 03:45 10/07/17 15:55 10/08/17 05:23 White Blood Count 7.8 x10^3/uL (4.0-11.0) 6.2 x10^3/uL (4.0-11.0) Red Blood Count 2.24 x10^6/uL (3.50-5.40) 2.77 x10^6/uL (3.50-5.40) Hemoglobin 6.7 g/dL (12.0-15.5) 8.5 g/dL (12.0-15.5) 8.2 g/dL (12.0-15.5) Hematocrit 20.6 % (36.0-47.0) 26.1 % (36.0-47.0) 25.2 % (36.0-47.0) Mean Corpuscular Volume 92 fL (79-100) 91 fL (79-100) Mean Corpuscular Hemoglobin 30 pg (25-35) 30 pg (25-35) Mean Corpuscular Hemoglobin Concent 32 g/dL (31-37) 33 g/dL (31-37) 33 g/dL (31-37) Red Cell Distribution Width 26.9 % (11.5-14.5) 22.1 % (11.5-14.5) Platelet Count 217 x10^3/uL (140-400) 224 x10^3/uL (140-400) Neutrophils (%) (Auto) 77 % (31-73) 77 % (31-73) Lymphocytes (%) (Auto) 9 % (24-48) 8 % (24-48) Monocytes (%) (Auto) 5 % (0-9) 5 % (0-9) Eosinophils (%) (Auto) 8 % (0-3) 9 % (0-3) Basophils (%) (Auto) 1 % (0-3) 1 % (0-3) Neutrophils # (Auto) 6.0 x10^3uL (1.8-7.7) 4.7 x10^3uL (1.8-7.7) Lymphocytes # (Auto) 0.7 x10^3/uL (1.0-4.8) 0.5 x10^3/uL (1.0-4.8) Monocytes # (Auto) 0.4 x10^3/uL (0.0-1.1) 0.3 x10^3/uL (0.0-1.1) Eosinophils # (Auto) 0.6 x10^3/uL (0.0-0.7) 0.5 x10^3/uL (0.0-0.7) Basophils # (Auto) 0.1 x10^3/uL (0.0-0.2) 0.1 x10^3/uL (0.0-0.2) Sodium Level 141 mmol/L (136-145) 142 mmol/L (136-145) Potassium Level 3.5 mmol/L (3.5-5.1) 3.7 mmol/L (3.5-5.1) Chloride Level 111 mmol/L (98-107) 112 mmol/L (98-107) Carbon Dioxide Level 21 mmol/L (21-32) 21 mmol/L (21-32) Anion Gap 9 (6-14) 9 (6-14) Blood Urea Nitrogen 22 mg/dL (7-20) 17 mg/dL (7-20) Creatinine 0.6 mg/dL (0.6-1.0) 0.7 mg/dL (0.6-1.0) Estimated GFR (Cockcroft-Gault) 102.0 85.4 Glucose Level 76 mg/dL (70-99) 84 mg/dL (70-99) Calcium Level 8.2 mg/dL (8.5-10.1) 8.1 mg/dL (8.5-10.1) BUN/Creatinine Ratio 24 (6-20) Total Bilirubin 0.3 mg/dL (0.2-1.0) Aspartate Amino Transf (AST/SGOT) 22 U/L (15-37) Alanine Aminotransferase (ALT/SGPT) 47 U/L (14-59) Alkaline Phosphatase 61 U/L (46-116) Total Protein 4.8 g/dL (6.4-8.2) Albumin 1.9 g/dL (3.4-5.0) Albumin/Globulin Ratio 0.7 (1.0-1.7) Laboratory Tests Test 10/07/17 15:55 10/08/17 05:23 Hemoglobin 8.5 g/dL (12.0-15.5) 8.2 g/dL (12.0-15.5) Hematocrit 26.1 % (36.0-47.0) 25.2 % (36.0-47.0) Mean Corpuscular Hemoglobin Concent 33 g/dL (31-37) 33 g/dL (31-37) White Blood Count 6.2 x10^3/uL (4.0-11.0) Red Blood Count 2.77 x10^6/uL (3.50-5.40) Mean Corpuscular Volume 91 fL (79-100) Mean Corpuscular Hemoglobin 30 pg (25-35) Red Cell Distribution Width 22.1 % (11.5-14.5) Platelet Count 224 x10^3/uL (140-400) Neutrophils (%) (Auto) 77 % (31-73) Lymphocytes (%) (Auto) 8 % (24-48) Monocytes (%) (Auto) 5 % (0-9) Eosinophils (%) (Auto) 9 % (0-3) Basophils (%) (Auto) 1 % (0-3) Neutrophils # (Auto) 4.7 x10^3uL (1.8-7.7) Lymphocytes # (Auto) 0.5 x10^3/uL (1.0-4.8) Monocytes # (Auto) 0.3 x10^3/uL (0.0-1.1) Eosinophils # (Auto) 0.5 x10^3/uL (0.0-0.7) Basophils # (Auto) 0.1 x10^3/uL (0.0-0.2) Sodium Level 142 mmol/L (136-145) Potassium Level 3.7 mmol/L (3.5-5.1) Chloride Level 112 mmol/L (98-107) Carbon Dioxide Level 21 mmol/L (21-32) Anion Gap 9 (6-14) Blood Urea Nitrogen 17 mg/dL (7-20) Creatinine 0.7 mg/dL (0.6-1.0) Estimated GFR (Cockcroft-Gault) 85.4 BUN/Creatinine Ratio 24 (6-20) Glucose Level 84 mg/dL (70-99) Calcium Level 8.1 mg/dL (8.5-10.1) Total Bilirubin 0.3 mg/dL (0.2-1.0) Aspartate Amino Transf (AST/SGOT) 22 U/L (15-37) Alanine Aminotransferase (ALT/SGPT) 47 U/L (14-59) Alkaline Phosphatase 61 U/L (46-116) Total Protein 4.8 g/dL (6.4-8.2) Albumin 1.9 g/dL (3.4-5.0) Albumin/Globulin Ratio 0.7 (1.0-1.7) Microbiology 09/17/17 Blood Culture - Final, Complete NO GROWTH AFTER 5 DAYS 09/20/17 AFB Specimen Processing Tissue - Final, Resulted 09/20/17 Acid Fast Bacilli Culture, Resulted Pending 09/20/17 Gram Stain - Final, Resulted 09/20/17 Fungal Culture - Preliminary, Resulted 09/20/17 Fungal Culture Result 1 - Preliminary, Resulted Medications Current Medications Sodium Chloride 1,000 ml @ 125 mls/hr 1X ONCE IV Last administered on t 15:54; Start 09/17/17 at 15:15; Stop 09/17/17 at 23:14; Status DC Ondansetron HCl (Zofran) 4 mg PRN Q8HRS PRN IV NAUSEA/VOMITING; Start at 16:30; Stop 09/18/17 at 16:29; Status DC Ceftriaxone Sodium 50 ml @ 0 mls/hr 1X ONCE IV Last administered on 17:33; Start 09/17/17 at 16:45; Stop 09/17/17 at 16:46; Status DC Azithromycin 250 ml @ 250 mls/hr 1X ONCE IV Last administered on 09/17/17 22:38; Start 09/17/17 at 16:30; Stop 09/17/17 at 17:29; Status DC Albuterol/ Ipratropium (Duoneb) 3 ml 1X ONCE NEB Last administered on 17:00; Start 09/17/17 at 16:45; Stop 09/17/17 at 16:46; Status DC Potassium Chloride (Klor-Con) 40 meq 1X ONCE PO Last administered on 16:57; Start 09/17/17 at 16:45; Stop 09/17/17 at 16:46; Status DC Azithromycin (Zithromax) 250 mg DAILY PO Last administered on 09/18/17 10:25 ; Start 09/18/17 at 09:00; Stop 09/19/17 at 10:30; Status DC Ceftriaxone Sodium 1 gm/ Dextrose 50 ml @ 100 mls/hr Q24H IV ; Start 09/17/17 at 17:15; Status UNV Albuterol/ Ipratropium (Duoneb) 3 ml Q4HRS NEB Last administered on 09/30/17 08:11; Start 09/17/17 at 20:00; Stop 09/30/17 at 09:21; Status DC Ceftriaxone Sodium (Rocephin) 1 gm Q24H IVP Last administered on 09/18/17 17: 55; Start 09/18/17 at 16:00; Stop 09/19/17 at 10:30; Status DC Guaifenesin (Robitussin Dm) 10 ml PRN Q6HRS PRN PO COUGH; Start 09/17/17 at 17 :15; Stop 09/30/17 at 09:21; Status DC Sodium Chloride 1,000 ml @ 125 mls/hr 1X ONCE IV Last administered on 17:45; Start 09/17/17 at 17:15; Stop 09/17/17 at 22:12; Status DC Info (Do NOT chart on this placeholder) 1 each 1X ONCE MC ; Start 09/17/17 at 19:00; Stop 09/17/17 at 19:01; Status UNV Influenza Virus Vaccine Quadrival (Fluarix Quad [id number] Syringe) 0.5 ml ONCE ONCE VAX IM Last administered on 09/17/17 21:00; Start 09/17/17 at 21:00; Stop 09/17/17 at 21:01; Status DC Sodium Chloride 1,000 ml @ 130 mls/hr 1X ONCE IV Last administered on 22:31; Start 09/17/17 at 22:30; Stop 09/18/17 at 06:11; Status DC Sodium Bicarbonate 50 meq 1X ONCE IV Last administered on 09/17/17 22:31; Start 09/17/17 at 22:30; Stop 09/17/17 at 22:31; Status DC Alprazolam (Xanax) 1 mg PRN TID PRN PO ANXIETY Last administered on 09/19/17 02:19; Start 09/17/17 at 22:30; Stop 09/30/17 at 09:21; Status DC Furosemide (Lasix) 20 mg 1X ONCE IVP Last administered on 09/18/17 06:24; Start 09/18/17 at 06:30; Stop 09/18/17 at 06:31; Status DC Potassium Chloride (Klor-Con) 40 meq 1X ONCE PO Last administered on 10:25; Start 09/18/17 at 09:00; Stop 09/18/17 at 09:01; Status DC Iron Sucrose 500 mg/Sodium Chloride 275 ml @ 78.571 mls/ hr 1X ONCE IV Last administered on 09/18/17 10:24; Start 09/18/17 at 09:00; Stop 09/18/17 at 12 :29; Status DC Furosemide (Lasix) 20 mg 1X ONCE IVP Last administered on 09/18/17 10:30; Start 09/18/17 at 10:00; Stop 09/18/17 at 10:22; Status DC Pantoprazole Sodium (Protonix) 40 mg DAILYAC PO Last administered on 10:47; Start 09/18/17 at 11:00; Stop 09/19/17 at 13:41; Status DC Furosemide (Lasix) 20 mg 1X ONCE IVP Last administered on 09/18/17 10:47; Start 09/18/17 at 10:45; Stop 09/18/17 at 10:46; Status DC Potassium Chloride (Klor-Con) 40 meq 1X ONCE PO ; Start 09/18/17 at 11:45; Stop 09/18/17 at 11:46; Status DC Oxycodone/ Acetaminophen (Percocet 5/325) 1 tab PRN Q6HRS PRN PO PAIN Last administered on 10/07/17 15:47; Start 09/18/17 at 12:15 Lorazepam (Ativan) 1 mg PRN Q4HRS PRN IV ANXIETY / AGITATION Last administered on 09/18/17 12:25; Start 09/18/17 at 12:15; Stop 09/18/17 at 13:34; Status DC Fentanyl Citrate (Fentanyl 2ml Vial) 50 mcg PRN Q2HR PRN IV PAIN Last administered on 09/19/17 04:09; Start 09/18/17 at 12:15; Stop 09/30/17 at 09 :21; Status DC Lorazepam (Ativan) 2 mg PRN Q4HRS PRN IV ANXIETY / AGITATION Last administered on 09/29/17 05:17; Start 09/18/17 at 13:30; Stop 09/30/17 at 09:21; Status DC Quetiapine Fumarate (SEROquel) 25 mg HS PO Last administered on 09/18/17 21: 03; Start 09/18/17 at 21:00; Stop 09/19/17 at 10:35; Status DC Haloperidol Lactate (Haldol) 5 mg PRN Q12HRS PRN IVP AGITATION; Start at 13:45 Lorazepam (Ativan) 1 mg PRN Q4HRS PRN IV ANXIETY / AGITATION; Start 09/19/17 at 10:15; Stop 09/19/17 at 10:18; Status DC Lorazepam (Ativan) 4 mg 1X ONCE IV ; Start 09/19/17 at 10:30; Stop 09/19/17 at 10:31; Status DC Vancomycin HCl (Vanco Per Pharmacy) 1 each PRN DAILY PRN MC SEE COMMENTS Last administered on 09/23/17 12:36; Start 09/19/17 at 10:30; Stop 09/24/17 at 08 :36; Status DC Piperacillin Sod/ Tazobactam Sod (Zosyn Per Pharmacy) 1 each PRN DAILY PRN MC SEE COMMENTS; Start 09/19/17 at 10:30; Stop 09/24/17 at 08:41; Status DC Vancomycin HCl 2 gm/Dextrose 500 ml @ 250 mls/hr 1X ONCE IV Last administered on 09/19/17 14:53; Start 09/19/17 at 11:00; Stop 09/19/17 at 12 :59; Status DC Piperacillin Sod/ Tazobactam Sod (Zosyn) 3.375 gm Q6HRS IVP Last administered on 10/02/17 17:13; Start 09/19/17 at 11:00; Stop 10/02/17 at 19:14; Status DC Budesonide (Pulmicort) 0.5 mg RTBID NEB Last administered on 10/08/17 07:36; Start 09/19/17 at 20:00 Budesonide (Pulmicort) 0.5 mg 1X ONCE NEB Last administered on 09/19/17 12: 50; Start 09/19/17 at 10:45; Stop 09/19/17 at 10:46; Status DC Pantoprazole Sodium (PROTONIX VIAL for IV PUSH) 40 mg DAILYAC IVP Last administered on 10/03/17 08:23; Start 09/19/17 at 11:30; Stop 10/04/17 at 08 :51; Status DC Furosemide (Lasix) 40 mg DAILY IVP ; Start 09/19/17 at 11:00; Stop 09/20/17 at 13:20; Status DC Methylprednisolone Sodium Succinate (SOLU-Medrol 125MG VIAL) 125 mg 1X ONCE IV Last administered on 09/19/17 13:23; Start 09/19/17 at 10:45; Stop at 10:46; Status DC Prednisone (Prednisone) 40 mg DAILY PO ; Start 09/19/17 at 11:00; Stop at 09:02; Status DC Methylprednisolone Sodium Succinate (SOLU-Medrol 125MG VIAL) 125 mg Q8HRS IV Last administered on 09/23/17t 05:43; Start 09/19/17 at 14:00; Stop 09/23/17 at 10:40; Status DC Midazolam HCl 100 ml @ 0 mls/hr CONT PRN IV SEE I/O RECORD; Start 09/19/17 at 11:00; Stop 09/19/17 at 12:51; Status DC Midazolam HCl (Versed) 5 mg 1X ONCE IV ; Start 09/19/17 at 11:00; Stop at 11:01; Status DC Fentanyl Citrate (Fentanyl 2ml Vial) 50 mcg 1X ONCE IV ; Start 09/19/17 at 11: 00; Stop 09/19/17 at 11:01; Status DC Midazolam HCl 100 ml @ As Directed STK-MED ONCE IV ; Start 09/19/17 at 10:55; Stop 09/19/17 at 10:56; Status DC Midazolam HCl (Versed) 5 mg STK-MED ONCE .ROUTE ; Start 09/19/17 at 10:55; Stop 09/19/17 at 10:56; Status DC Propofol 100 ml @ As Directed STK-MED ONCE IV ; Start 09/19/17 at 10:59; Stop 09/19/17 at 11:00; Status DC Norepinephrine Bitartrate 250 ml @ As Directed STK-MED ONCE IV ; Start at 10:59; Stop 09/19/17 at 11:00; Status DC Furosemide (Lasix) 20 mg 1X ONCE IVP ; Start 09/19/17 at 11:15; Stop at 11:16; Status DC Vecuronium [employer] [place] (Norcuron Bolus) 10 mg STK-MED ONCE IV ; Start 09/19/17 at 11:21; Stop 09/19/17 at 11:22; Status DC Fentanyl Citrate 30 ml @ 0 mls/hr CONT PRN IV PROTOCOL Last administered on t 15:08; Start 09/19/17 at 11:30; Stop 09/23/17 at 15:24; Status DC Vecuronium [employer] (Norcuron Bolus) 6 mg 1X ONCE IV Last administered on 09/19 11:42; Start 09/19/17 at 11:30; Stop 09/19/17 at 11:39; Status DC Propofol 10 ml @ 0 mls/hr 1X ONCE IV Last administered on 09/19/17 11:30; Start 09/19/17 at 11:30; Stop 09/19/17 at 11:39; Status DC Midazolam HCl 100 ml @ 0 mls/hr CONT PRN IV SEE I/O RECORD Last administered on 09/27/17 00:40; Start 09/19/17 at 11:30; Stop 09/30/17 at 09:21; Status DC Norepinephrine Bitartrate 250 ml @ 0 mls/hr CONT PRN IV SEE I/O RECORD Last administered on 09/24/17 05:18; Start 09/19/17 at 11:30; Stop 09/30/17 at 09 :21; Status DC Succinylcholine Chloride (Anectine) 100 mg 1X ONCE IV Last administered on 11:42; Start 09/19/17 at 11:30; Stop 09/19/17 at 11:39; Status DC Sodium Bicarbonate 50 meq 1X ONCE IV Last administered on 09/19/17 13:23; Start 09/19/17 at 12:45; Stop 09/19/17 at 12:46; Status DC Sodium Bicarbonate 50 meq 1X ONCE IV Last administered on 09/19/17 13:23; Start 09/19/17 at 12:45; Stop 09/19/17 at 12:46; Status DC Lidocaine/Sodium Bicarbonate (Buffered Lidocaine 1%) 20 ml STK-MED ONCE IJ ; Start 09/19/17 at 13:34; Stop 09/19/17 at 13:35; Status DC Vecuronium [employer] (Norcuron Bolus) 10 mg 1X ONCE IV Last administered on 15:05; Start 09/19/17 at 14:00; Stop 09/19/17 at 14:02; Status DC Lidocaine/Sodium Bicarbonate (Buffered Lidocaine 1%) 3 ml 1X ONCE IJ ; Start 09/19/17 at 14:45; Stop 09/19/17 at 14:46; Status DC Vancomycin HCl 1.25 gm/Dextrose 250 ml @ 166.667 mls/hr Q24H IV Last administered on 09/23/17 17:19; Start 09/20/17 at 15:00; Stop 09/24/17 at 08 :35; Status DC Vancomycin HCl 1 each 1X ONCE MC Last administered on 09/21/17 14:30; Start 09/21/17 at 14:30; Stop 09/21/17 at 14:31; Status DC Azithromycin 500 mg/Sodium Chloride 250 ml @ 250 mls/hr Q24H IV Last administered on 09/23/17 17:19; Start 09/19/17 at 16:30; Stop 09/24/17 at 08 :35; Status DC Norepinephrine Bitartrate (Levophed 8mg/ 250ml Premix Drip) 8 mg STK-MED ONCE IV ; Start 09/19/17 at 11:00; Stop 09/20/17 at 08:44; Status DC Midazolam HCl (Versed) 5 mg STK-MED ONCE .ROUTE ; Start 09/19/17 at 11:00; Stop 09/20/17 at 08:44; Status DC Amino Acids/ Glycerin/ Electrolytes 1,000 ml @ 80 mls/hr [id number] IV Last administered on 09/21/17 01:21; Start 09/20/17 at 10:00; Stop 09/22/17 at 07 :02; Status DC Info 1 each PRN DAILY PRN MC SEE COMMENTS; Start 09/20/17 at 10:00; Stop at 12:14; Status DC Furosemide (Lasix) 20 mg 1X ONCE IVP Last administered on 09/20/17 10:21; Start 09/20/17 at 10:15; Stop 09/20/17 at 10:18; Status DC Info 1 each PRN DAILY PRN MC SEE COMMENTS; Start 09/20/17 at 11:00; Status UNV Vecuronium [employer] (Norcuron Bolus) 10 mg 1X ONCE IV Last administered on 12:03; Start 09/20/17 at 11:15; Stop 09/20/17 at 11:24; Status DC Atropine Sulfate 0.5 mg STK-MED ONCE .ROUTE ; Start 09/20/17 at 11:47; Stop at 11:48; Status DC Epinephrine HCl (EPINEPHrine SYRINGE) 1 mg STK-MED ONCE .ROUTE ; Start at 11:47; Stop 09/20/17 at 11:48; Status DC Atropine Sulfate 0.5 mg STK-MED ONCE .ROUTE ; Start 09/20/17 at 12:00; Stop at 09:11; Status DC Epinephrine HCl (EPINEPHrine SYRINGE) 1 mg STK-MED ONCE .ROUTE ; Start at 12:00; Stop 09/21/17 at 09:11; Status DC Furosemide (Lasix) 20 mg DAILY IVP ; Start 09/21/17 at 11:15; Stop 09/21/17 at 11:20; Status DC Lorazepam (Ativan) 1 mg PRN Q1HR PRN IV ANXIETY / AGITATION Last administered on 09/28/17 17:04; Start 09/21/17 at 11:15; Stop 09/30/17 at 09:21; Status DC Albumin Human 250 ml @ 62.5 mls/hr 1X ONCE IV Last administered on 11:57; Start 09/21/17 at 11:30; Stop 09/21/17 at 15:29; Status DC Albumin Human 250 ml @ 62.5 mls/hr 1X ONCE IV Last administered on 14:29; Start 09/21/17 at 11:30; Stop 09/21/17 at 15:29; Status DC Micafungin Sodium 100 mg/Dextrose 100 ml @ 100 mls/hr Q24H IV Last administered on 09/23/17 13:17; Start 09/21/17 at 12:00; Stop 09/24/17 at 08 :35; Status DC Vecuronium [employer] (Norcuron Bolus) 4 mg PRN Q4HRS PRN IV AGITATION; Start at 15:00; Stop 09/30/17 at 09:21; Status DC Dexmedetomidine HCl 200 mcg/ Sodium Chloride 50 ml @ 0 mls/hr CONT PRN IV PER PROTOCOL Last administered on 09/21/17 15:54; Start 09/21/17 at 15:30; Stop 09/30/17 at 09:21; Status DC Sodium Chloride 500 ml @ 500 mls/hr 1X PRN PRN IV SEE COMMENTS; Start at 15:30 Atropine Sulfate 0.5 mg PRN Q5MIN PRN IV SEE COMMENTS; Start 09/21/17 at 15:30 Propofol 100 ml @ 0 mls/hr CONT PRN IV PER PROTOCOL Last administered on 14:35; Start 09/21/17 at 16:45; Stop 09/30/17 at 09:21; Status DC Furosemide (Lasix) 20 mg 1X ONCE IVP Last administered on 09/22/17 09:41; Start 09/22/17 at 10:15; Stop 09/22/17 at 10:16; Status DC Chlorhexidine Gluconate (Peridex) 15 ml BID MM Last administered on 09/29/17 08:07; Start 09/22/17 at 21:00; Stop 09/29/17 at 20:22; Status DC Furosemide (Lasix) 20 mg 1X ONCE IVP Last administered on 09/22/17 17:55; Start 09/22/17 at 18:00; Stop 09/22/17 at 18:01; Status DC Furosemide (Lasix) 20 mg DAILY IVP Last administered on 09/23/17 13:16; Start 09/23/17 at 11:30; Stop 09/24/17 at 08:40; Status DC Methylprednisolone Sodium Succinate (SOLU-Medrol 125MG VIAL) 80 mg Q8HRS IV Last administered on 09/30/17 05:47; Start 09/23/17 at 14:00; Stop 09/30/17 at 09:26; Status DC Fentanyl Citrate 55 ml @ 0 mls/hr CONT PRN PRN IV PER PROTOCOL Last administered on 09/28/17 19:13; Start 09/23/17 at 12:15; Stop 09/30/17 at 09 :21; Status DC Dextrose 1,000 ml @ 25 mls/hr Q24H IV Last administered on 09/28/17 12:59; Start 09/23/17 at 11:45; Stop 10/04/17 at 13:14; Status DC Enoxaparin Sodium (Lovenox Per Pharmacy Prophylaxis Dosing) 1 each PRN DAILY PRN MC SEE COMMENTS; Start 09/23/17 at 16:30; Stop 09/24/17 at 08:41; Status DC Enoxaparin Sodium (Lovenox 40mg Syringe) 40 mg Q24H SQ Last administered on 17:32; Start 09/23/17 at 17:00; Stop 10/07/17 at 12:42; Status DC Bisacodyl (Dulcolax Tab) 5 mg PRN DAILY PRN PO CONSTIPATION; Start 09/24/17 at 09:30 Insulin Aspart (NovoLOG) 0-5 UNITS Q6HRS SQ Last administered on 09/29/17 12: 27; Start 09/25/17 at 18:00; Stop 10/01/17 at 02:54; Status DC Dextrose (Dextrose 50%-Water Syringe) 12.5 gm PRN Q15MIN PRN IV SEE COMMENTS; Start 09/25/17 at 12:30; Stop 10/01/17 at 02:54; Status DC Dextrose/Sodium Chloride 1,000 ml @ 75 mls/hr [id number] IV Last administered on 10/02/17 01:23; Start 09/29/17 at 19:00; Stop 10/02/17 at 09:07; Status DC Ondansetron HCl (Zofran) 4 mg PRN Q6HRS PRN IV NAUSEA/VOMITING Last administered on 10/01/17 20:33; Start 09/29/17 at 20:00 Albuterol/ Ipratropium (Duoneb) 3 ml TID NEB Last administered on 10/08/17 07: 36; Start 09/30/17 at 14:00 Methylprednisolone Sodium Succinate (SOLU-Medrol 125MG VIAL) 80 mg Q12HR IV Last administered on 10/01/17 08:56; Start 09/30/17 at 21:00; Stop 10/01/17 at 10:22; Status DC Iron Sucrose 500 mg/Sodium Chloride 275 ml @ 78.571 mls/ hr 1X ONCE IV Last administered on 10/01/17 10:08; Start 10/01/17 at 09:30; Stop 10/01/17 at 12 :59; Status DC Methylprednisolone Sodium Succinate (SOLU-Medrol 40MG VIAL) 40 mg Q12HR IV ; Start 10/01/17 at 21:00; Stop 10/01/17 at 21:00; Status DC Alprazolam (Xanax) 0.25 mg PRN Q8HRS PRN PO ANXIETY / AGITATION Last administered on 10/07/17 02:45; Start 10/01/17 at 10:30 Quetiapine Fumarate (SEROquel) 50 mg HS PO Last administered on 10/07/17 21:09 ; Start 10/01/17 at 21:00 Methylprednisolone Sodium Succinate (SOLU-Medrol 40MG VIAL) 40 mg QHS IV Last administered on 10/01/17 20:32; Start 10/01/17 at 21:00; Stop 10/02/17 at 10 :36; Status DC Saliva Substitute (Biotene Moisturizing Mouth) 2 spray PRN Q15MIN PRN PO DRY MOUTH; Start 10/02/17 at 09:15 Info 1 each PRN DAILY PRN MC SEE COMMENTS Last administered on 10/06/17 12:34 ; Start 10/02/17 at 09:15; Stop 10/07/17 at 11:35; Status DC Amino Acids/ Glycerin/ Electrolytes 1,000 ml @ 100 mls/hr Q10H IV Last administered on 10/02/17 09:57; Start 10/02/17 at 10:00; Stop 10/02/17 at 19 :59; Status DC Methylprednisolone Sodium Succinate (SOLU-Medrol 40MG VIAL) 20 mg QHS IV Last administered on 10/02/17 21:38; Start 10/02/17 at 21:00; Stop 10/03/17 at 12 :46; Status DC Sodium Acetate 40 meq/Potassium Chloride 50 meq/ Potassium Phosphate 13.6 mmol/ Magnesium Sulfate 10 meq/ Calcium Gluconate 10 meq/ Multivitamins 10 ml/Chromium / Copper/Manganese/ Seleni/Zn 1 ml/ Total Parenteral Nutrition/Amino Acids/ Dextrose/ Fat Emulsion Intravenous 1,512 ml @ 63 mls/hr TPN CONT IV Last administered on 10/02/17 21:37; Start 10/02/17 at 22:00; Stop 10/03/17 at 21 :59; Status DC Morphine Sulfate 2 mg PRN Q2HR PRN IV SEVERE PAIN Last administered on 01:33; Start 10/03/17 at 06:00 Lorazepam (Ativan) 1 mg PRN Q4HRS PRN IV ANXIETY / AGITATION Last administered on 10/04/17 01:15; Start 10/03/17 at 06:00 Potassium Phosphate 13.6 mmol/Sodium Chloride 104.5333 ml @ 52.267 m... Q2H IV Last administered on 10/03/17 17:28; Start 10/03/17 at 12:00; Stop at 15:59; Status DC Potassium Acetate 70 meq/Potassium Phosphate 13.6 mmol/Magnesium Sulfate 10 meq / Calcium Gluconate 10 meq/ Multivitamins 10 ml/Chromium/ Copper/Manganese/ Seleni/Zn 1 ml/ Total Parenteral Nutrition/Amino Acids/Dextrose/ Fat Emulsion Intravenous 1,992 ml @ 83 mls/hr TPN CONT IV Last administered on 10/03/17 22:00; Start 10/03/17 at 22:00; Stop 10/04/17 at 21:59; Status DC Vitamin A/Vitamin D (Vitamin A & D Ointment) 1 joe PRN BID PRN TP SKIN PROTECTION Last administered on 10/04/17 01:28; Start 10/03/17 at 14:00 Pantoprazole Sodium (Protonix) 40 mg DAILYAC PO Last administered on 10/07/17 08:17; Start 10/05/17 at 07:30; Stop 10/07/17 at 15:24; Status DC Simethicone (Gas-X) 80 mg PRN AFTMEALHC PRN PO GAS / BLOATING Last administered on 10/04/17 21:09; Start 10/04/17 at 09:00 Polyethylene Glycol (miraLAX PACKET) 17 gm PRN DAILY PRN PO CONSTIPATION; Start 10/04/17 at 09:00 Potassium Acetate 70 meq/Potassium Phosphate 13.6 mmol/Magnesium Sulfate 10 meq / Calcium Gluconate 10 meq/ Multivitamins 10 ml/Chromium/ Copper/Manganese/ Seleni/Zn 1 ml/ Total Parenteral Nutrition/Amino Acids/Dextrose/ Fat Emulsion Intravenous 1,992 ml @ 83 mls/hr TPN CONT IV Last administered on 10/05/17 00:02; Start 10/04/17 at 22:00; Stop 10/05/17 at 21:59; Status DC Iohexol (Omnipaque 300 Mg/ml) 75 ml 1X ONCE IV Last administered on 16:25; Start 10/04/17 at 15:30; Stop 10/04/17 at 15:31; Status DC Info (Do NOT chart on this entry -- for MONITORING) 1 each PRN DAILY PRN MC SEE COMMENTS; Start 10/04/17 at 15:45; Stop 10/06/17 at 15:44; Status DC Loperamide HCl (Imodium) 2 mg PRN Q1HR PRN PEG DIARRHEA Last administered on 15:49; Start 10/05/17 at 07:00 Furosemide (Lasix) 20 mg DAILY PO Last administered on 10/07/17 08:17; Start 10/05/17 at 09:00 Potassium Acetate 70 meq/Potassium Phosphate 13.6 mmol/Magnesium Sulfate 10 meq / Calcium Gluconate 10 meq/ Multivitamins 10 ml/Chromium/ Copper/Manganese/ Seleni/Zn 1 ml/ Total Parenteral Nutrition/Amino Acids/Dextrose/ Fat Emulsion Intravenous 1,600 ml @ 66.667 mls/ hr TPN CONT IV Last administered on 22:42; Start 10/05/17 at 22:00; Stop 10/06/17 at 21:59; Status DC Dicyclomine HCl (Bentyl) 10 mg PRN Q6HRS PRN PO MILD PAIN Last administered on 10/06/17 23:10; Start 10/05/17 at 17:15 Tramadol HCl (Ultram) 50 mg PRN Q6HRS PRN PO PAIN Last administered on 08:16; Start 10/06/17 at 10:45 Potassium Acetate 70 meq/Potassium Phosphate 13.6 mmol/Magnesium Sulfate 10 meq / Calcium Gluconate 10 meq/ Multivitamins 10 ml/Chromium/ Copper/Manganese/ Seleni/Zn 1 ml/ Sodium Acetate 30 meq/Total Parenteral Nutrition/Amino Acids/ Dextrose/ Fat Emulsion Intravenous 1,600 ml @ 66.667 mls/ hr TPN CONT IV ; Start 10/06/17 at 22:00; Stop 10/07/17 at 21:59; Status DC Pantoprazole Sodium (Protonix) 40 mg BIDAC PO ; Start 10/07/17 at 16:30 Active Scripts Active Reported Gabapentin 300 Mg Capsule 300 Mg PO TID Cymbalta (Duloxetine Hcl) 60 Mg Capsule. 1 Cap PO BID Hydrochlorothiazide Tablet (Hydrochlorothiazide) 25 Mg Tablet 1 Tab PO DAILY Xanax (Alprazolam) 1 Mg Tablet 1 Tab PO TID PRN Vitals/I & O Vital Sign - Last 24 Hours 10/07/17 10/07/17 10/07/17 10/07/17 10:37 10:38 10:52 11:00 Temp 97.7 97.7 97.6 97.6 97.7 97.7 97.6 97.6 Pulse 89 89 71 71 Resp 14 14 14 14 B/P (MAP) 100/61 100/61 (74) 101/57 101/57 (72) Pulse Ox 99 O2 Delivery Room Air Room Air 10/07/17 10/07/17 10/07/17 10/07/17 11:52 11:52 12:25 13:00 Temp 97.8 97.8 97.6 97.8 97.8 97.6 Pulse 89 89 82 Resp 14 14 16 B/P (MAP) 103/58 103/58 (73) 108/68 (81) O2 Delivery Room Air Room Air Room Air 10/07/17 10/07/17 10/07/17 10/07/17 13:00 14:47 15:47 16:55 Temp 97.6 98.6 97.6 98.6 Pulse 82 86 Resp 16 15 B/P (MAP) 108/68 115/67 (83) Pulse Ox 98 98 98 O2 Delivery Room Air Room Air Room Air O2 Flow Rate 2.0 10/07/17 10/07/17 10/07/17 10/07/17 19:32 19:32 19:49 19:50 Temp 98.0 98.0 Pulse 72 Resp 20 B/P (MAP) 114/69 (84) Pulse Ox 99 O2 Delivery Room Air Room Air Room Air Room Air 10/07/17 10/08/17 10/08/17 10/08/17 23:39 03:40 06:50 07:39 Temp 98.1 97.9 97.3 98.1 97.9 97.3 Pulse 91 104 93 Resp 18 20 18 B/P (MAP) 91/40 (57) 111/72 (85) 115/82 (93) Pulse Ox 96 98 97 96 O2 Delivery Room Air Room Air Room Air Room Air 10/08/17 08:05 O2 Delivery Room Air Intake and Output 10/07/17 10/07/17 10/08/17 15:00 23:00 07:00 Intake Total 400 ml 600 ml Balance 400 ml 600 ml MOHAN DAVIS MD Oct 08, 2017 10:17
[2017-10-08 10:49] VITALS: BP 127/83
--- NOTE | 2017-10-08 11:50 | PDOC ---
PULMONARY PROGRESS NOTES Subjective EXTUBATED 09/29 Vitals Vital Signs Date Time Temp Pulse Resp B/P (MAP) Pulse Ox O2 Delivery O2 Flow Rate FiO2 10/08/17 10:49 98.1 101 18 127/83 (98) 100 Room Air 98.1 10/07/17 15:47 2.0 General: Alert Lungs: Clear Cardiovascular: S1, S2 Abdomen: Soft Neuro Exam: Alert Extremities: Other (edema) Skin: Warm Labs Laboratory Tests Test 10/07/17 03:45 10/07/17 15:55 10/08/17 05:23 White Blood Count 7.8 x10^3/uL (4.0-11.0) 6.2 x10^3/uL (4.0-11.0) Red Blood Count 2.24 x10^6/uL (3.50-5.40) 2.77 x10^6/uL (3.50-5.40) Hemoglobin 6.7 g/dL (12.0-15.5) 8.5 g/dL (12.0-15.5) 8.2 g/dL (12.0-15.5) Hematocrit 20.6 % (36.0-47.0) 26.1 % (36.0-47.0) 25.2 % (36.0-47.0) Mean Corpuscular Volume 92 fL (79-100) 91 fL (79-100) Mean Corpuscular Hemoglobin 30 pg (25-35) 30 pg (25-35) Mean Corpuscular Hemoglobin Concent 32 g/dL (31-37) 33 g/dL (31-37) 33 g/dL (31-37) Red Cell Distribution Width 26.9 % (11.5-14.5) 22.1 % (11.5-14.5) Platelet Count 217 x10^3/uL (140-400) 224 x10^3/uL (140-400) Neutrophils (%) (Auto) 77 % (31-73) 77 % (31-73) Lymphocytes (%) (Auto) 9 % (24-48) 8 % (24-48) Monocytes (%) (Auto) 5 % (0-9) 5 % (0-9) Eosinophils (%) (Auto) 8 % (0-3) 9 % (0-3) Basophils (%) (Auto) 1 % (0-3) 1 % (0-3) Neutrophils # (Auto) 6.0 x10^3uL (1.8-7.7) 4.7 x10^3uL (1.8-7.7) Lymphocytes # (Auto) 0.7 x10^3/uL (1.0-4.8) 0.5 x10^3/uL (1.0-4.8) Monocytes # (Auto) 0.4 x10^3/uL (0.0-1.1) 0.3 x10^3/uL (0.0-1.1) Eosinophils # (Auto) 0.6 x10^3/uL (0.0-0.7) 0.5 x10^3/uL (0.0-0.7) Basophils # (Auto) 0.1 x10^3/uL (0.0-0.2) 0.1 x10^3/uL (0.0-0.2) Sodium Level 141 mmol/L (136-145) 142 mmol/L (136-145) Potassium Level 3.5 mmol/L (3.5-5.1) 3.7 mmol/L (3.5-5.1) Chloride Level 111 mmol/L (98-107) 112 mmol/L (98-107) Carbon Dioxide Level 21 mmol/L (21-32) 21 mmol/L (21-32) Anion Gap 9 (6-14) 9 (6-14) Blood Urea Nitrogen 22 mg/dL (7-20) 17 mg/dL (7-20) Creatinine 0.6 mg/dL (0.6-1.0) 0.7 mg/dL (0.6-1.0) Estimated GFR (Cockcroft-Gault) 102.0 85.4 Glucose Level 76 mg/dL (70-99) 84 mg/dL (70-99) Calcium Level 8.2 mg/dL (8.5-10.1) 8.1 mg/dL (8.5-10.1) BUN/Creatinine Ratio 24 (6-20) Total Bilirubin 0.3 mg/dL (0.2-1.0) Aspartate Amino Transf (AST/SGOT) 22 U/L (15-37) Alanine Aminotransferase (ALT/SGPT) 47 U/L (14-59) Alkaline Phosphatase 61 U/L (46-116) Total Protein 4.8 g/dL (6.4-8.2) Albumin 1.9 g/dL (3.4-5.0) Albumin/Globulin Ratio 0.7 (1.0-1.7) Laboratory Tests Test 10/07/17 15:55 10/08/17 05:23 Hemoglobin 8.5 g/dL (12.0-15.5) 8.2 g/dL (12.0-15.5) Hematocrit 26.1 % (36.0-47.0) 25.2 % (36.0-47.0) Mean Corpuscular Hemoglobin Concent 33 g/dL (31-37) 33 g/dL (31-37) White Blood Count 6.2 x10^3/uL (4.0-11.0) Red Blood Count 2.77 x10^6/uL (3.50-5.40) Mean Corpuscular Volume 91 fL (79-100) Mean Corpuscular Hemoglobin 30 pg (25-35) Red Cell Distribution Width 22.1 % (11.5-14.5) Platelet Count 224 x10^3/uL (140-400) Neutrophils (%) (Auto) 77 % (31-73) Lymphocytes (%) (Auto) 8 % (24-48) Monocytes (%) (Auto) 5 % (0-9) Eosinophils (%) (Auto) 9 % (0-3) Basophils (%) (Auto) 1 % (0-3) Neutrophils # (Auto) 4.7 x10^3uL (1.8-7.7) Lymphocytes # (Auto) 0.5 x10^3/uL (1.0-4.8) Monocytes # (Auto) 0.3 x10^3/uL (0.0-1.1) Eosinophils # (Auto) 0.5 x10^3/uL (0.0-0.7) Basophils # (Auto) 0.1 x10^3/uL (0.0-0.2) Sodium Level 142 mmol/L (136-145) Potassium Level 3.7 mmol/L (3.5-5.1) Chloride Level 112 mmol/L (98-107) Carbon Dioxide Level 21 mmol/L (21-32) Anion Gap 9 (6-14) Blood Urea Nitrogen 17 mg/dL (7-20) Creatinine 0.7 mg/dL (0.6-1.0) Estimated GFR (Cockcroft-Gault) 85.4 BUN/Creatinine Ratio 24 (6-20) Glucose Level 84 mg/dL (70-99) Calcium Level 8.1 mg/dL (8.5-10.1) Total Bilirubin 0.3 mg/dL (0.2-1.0) Aspartate Amino Transf (AST/SGOT) 22 U/L (15-37) Alanine Aminotransferase (ALT/SGPT) 47 U/L (14-59) Alkaline Phosphatase 61 U/L (46-116) Total Protein 4.8 g/dL (6.4-8.2) Albumin 1.9 g/dL (3.4-5.0) Albumin/Globulin Ratio 0.7 (1.0-1.7) Medications Active Scripts Medications Dose Route/Sig Max Daily Dose Days Date Category Gabapentin 300 Mg Capsule 300 Mg PO TID 09/18/17 Reported Cymbalta (Duloxetine Hcl) 60 Mg Capsule.dr 1 Cap PO BID 09/18/17 Reported Hydrochlorothiazide Tablet (Hydrochlorothiazide) 25 Mg Tablet 1 Tab PO DAILY 09/17/17 Reported Xanax (Alprazolam) 1 Mg Tablet 1 Tab PO TID PRN 09/17/17 Reported Comments CXR 10/01 overall improving infiltrates Impression . 1. Acute hypoxic respiratory failure/ARDS/ S/P EXTUBATION, ON RA now/ DOING WELL 2. Anemia ongoing/ GI following 3. COPD/ compensated 4. Acute renal failure, stable 5. Sepsis with hypotension POA, resolved 6. S/P Bronch so far BAL negative 7. Critical care induced myopathy, improving strength 8. bilateral interstitial infiltrates , ? etiology, suspect viral, improved 9. medication induced delirium/ almost resolved 10. Anxiety disorder Plan . EGD TODAY PRN OXYGEN SPOKE WITH AT BEDSIDE/ delirium almost resolved SPEECH, PT/ DYSPHAGIA DIET/ TPN off DVT PROPH / DC LOVENOX due to anemia ALL CULTURES NEGATIVE ANCA NEGATIVE OFF STEROIDS AGGRESSIVE REHAB TRANSFER TO REHAB IN AM IF OK WITH RAKEL DOOLEY MD Oct 08, 2017 11:49
[2017-10-08] MEDS ORDERED: PROPOFOL 10 MG/ML (20ML) VIAL. IV ONE (12:00)
[2017-10-08] MEDS ORDERED: LIDOCAINE 2% PF Vial for OR 5 ML VIAL. ONE ×2 (12:00→12:51)
[2017-10-08] MEDS ORDERED: EPINEPHrine SYRINGE 1 MG/10 ML SYRINGE ONE ×2 (12:00→12:58)
[2017-10-08] MEDS ORDERED: PROPOFOL 40 ML IV ONE (12:51)
[2017-10-08] MEDS ORDERED: EPINEPHrine 1 MG/ML VIAL ONE (12:57)
--- NOTE | 2017-10-08 13:23 | PDOC4 ---
PROCEDURE Procedure EGD/epi/BICAP Indication: Persistent anemia Meds: per anesthesia. Findings: E--Normal, GEJ at 34cm. G--Watery blood and clots in proximal body on initial entry. Most suctioned. No pathology in fundus, cardia, body. Prepyloric scarring with active 1 cm ulcer superior to pylorus with fresh clot. D--normal to second portion. --with withdrawal of scope back into stomach, clot dislodged from ulcer with slow but pulsatile bleeding c/w small arteriolar bleed. EPI 1cc x 5 in 4 quadrants and into ulcer base. Clip would not bridge ulcer and fell off. BICAP 'd with 50W, 1-2 second bursts around and on ulcer base. No active bleeding at end of case. Biopsies from antrum re: H.pylori. [place]. well. IMP: Prepyloric ulcer with recent bleeding; s/p epi/BICAP. REC: Hold lovenox for 2 days. Continue PPI, BID po. Clears sparingly next 24 hours po. F/u biopsies. Thanks. ZEFERINO TABOR MD Oct 08, 2017 13:22
[2017-10-08 14:11] VITALS: BP 118/70
[2017-10-08] MEDS: MORPHINE SULFATE 2 MG/ML DISP.SYRIN. IV PRN ×2 (14:28→19:35)
--- NOTE | 2017-10-08 14:36 | PDOC ---
PROGRESS NOTES Subjective Subjective No new complaints. Objective Objective Vital Signs Date Time Temp Pulse Resp B/P (MAP) Pulse Ox O2 Delivery O2 Flow Rate FiO2 10/08/17 14:28 97 Room Air 10/08/17 14:11 98.6 92 20 118/70 (86) 98.6 10/08/17 13:15 3 Intake and Output 10/08/17 07:00 Intake Total 1000 ml Balance 1000 ml Intake Oral 1000 ml # Voids 6 Physical Exam Physical Exam She continues with quadriparesis and edema of dependent parts of her extremities and requires maximal help with mobility and self care. Assessment Assessment Problems Medical Problems: (1) Dyspnea Status: Acute (2) Hypoalbuminemia Status: Acute (3) Metabolic acidosis Status: Acute (4) Pneumonia Status: Acute Plan Plan of Care To rehab unit or SNF when medically stable. Comment Review of Relevant I have reviewed the following items tha (where applicable) has been applied. Labs Laboratory Tests Test 10/07/17 03:45 10/07/17 15:55 10/08/17 05:23 White Blood Count 7.8 x10^3/uL (4.0-11.0) 6.2 x10^3/uL (4.0-11.0) Red Blood Count 2.24 x10^6/uL (3.50-5.40) 2.77 x10^6/uL (3.50-5.40) Hemoglobin 6.7 g/dL (12.0-15.5) 8.5 g/dL (12.0-15.5) 8.2 g/dL (12.0-15.5) Hematocrit 20.6 % (36.0-47.0) 26.1 % (36.0-47.0) 25.2 % (36.0-47.0) Mean Corpuscular Volume 92 fL (79-100) 91 fL (79-100) Mean Corpuscular Hemoglobin 30 pg (25-35) 30 pg (25-35) Mean Corpuscular Hemoglobin Concent 32 g/dL (31-37) 33 g/dL (31-37) 33 g/dL (31-37) Red Cell Distribution Width 26.9 % (11.5-14.5) 22.1 % (11.5-14.5) Platelet Count 217 x10^3/uL (140-400) 224 x10^3/uL (140-400) Neutrophils (%) (Auto) 77 % (31-73) 77 % (31-73) Lymphocytes (%) (Auto) 9 % (24-48) 8 % (24-48) Monocytes (%) (Auto) 5 % (0-9) 5 % (0-9) Eosinophils (%) (Auto) 8 % (0-3) 9 % (0-3) Basophils (%) (Auto) 1 % (0-3) 1 % (0-3) Neutrophils # (Auto) 6.0 x10^3uL (1.8-7.7) 4.7 x10^3uL (1.8-7.7) Lymphocytes # (Auto) 0.7 x10^3/uL (1.0-4.8) 0.5 x10^3/uL (1.0-4.8) Monocytes # (Auto) 0.4 x10^3/uL (0.0-1.1) 0.3 x10^3/uL (0.0-1.1) Eosinophils # (Auto) 0.6 x10^3/uL (0.0-0.7) 0.5 x10^3/uL (0.0-0.7) Basophils # (Auto) 0.1 x10^3/uL (0.0-0.2) 0.1 x10^3/uL (0.0-0.2) Sodium Level 141 mmol/L (136-145) 142 mmol/L (136-145) Potassium Level 3.5 mmol/L (3.5-5.1) 3.7 mmol/L (3.5-5.1) Chloride Level 111 mmol/L (98-107) 112 mmol/L (98-107) Carbon Dioxide Level 21 mmol/L (21-32) 21 mmol/L (21-32) Anion Gap 9 (6-14) 9 (6-14) Blood Urea Nitrogen 22 mg/dL (7-20) 17 mg/dL (7-20) Creatinine 0.6 mg/dL (0.6-1.0) 0.7 mg/dL (0.6-1.0) Estimated GFR (Cockcroft-Gault) 102.0 85.4 Glucose Level 76 mg/dL (70-99) 84 mg/dL (70-99) Calcium Level 8.2 mg/dL (8.5-10.1) 8.1 mg/dL (8.5-10.1) BUN/Creatinine Ratio 24 (6-20) Total Bilirubin 0.3 mg/dL (0.2-1.0) Aspartate Amino Transf (AST/SGOT) 22 U/L (15-37) Alanine Aminotransferase (ALT/SGPT) 47 U/L (14-59) Alkaline Phosphatase 61 U/L (46-116) Total Protein 4.8 g/dL (6.4-8.2) Albumin 1.9 g/dL (3.4-5.0) Albumin/Globulin Ratio 0.7 (1.0-1.7) Laboratory Tests Test 10/07/17 15:55 10/08/17 05:23 Hemoglobin 8.5 g/dL (12.0-15.5) 8.2 g/dL (12.0-15.5) Hematocrit 26.1 % (36.0-47.0) 25.2 % (36.0-47.0) Mean Corpuscular Hemoglobin Concent 33 g/dL (31-37) 33 g/dL (31-37) White Blood Count 6.2 x10^3/uL (4.0-11.0) Red Blood Count 2.77 x10^6/uL (3.50-5.40) Mean Corpuscular Volume 91 fL (79-100) Mean Corpuscular Hemoglobin 30 pg (25-35) Red Cell Distribution Width 22.1 % (11.5-14.5) Platelet Count 224 x10^3/uL (140-400) Neutrophils (%) (Auto) 77 % (31-73) Lymphocytes (%) (Auto) 8 % (24-48) Monocytes (%) (Auto) 5 % (0-9) Eosinophils (%) (Auto) 9 % (0-3) Basophils (%) (Auto) 1 % (0-3) Neutrophils # (Auto) 4.7 x10^3uL (1.8-7.7) Lymphocytes # (Auto) 0.5 x10^3/uL (1.0-4.8) Monocytes # (Auto) 0.3 x10^3/uL (0.0-1.1) Eosinophils # (Auto) 0.5 x10^3/uL (0.0-0.7) Basophils # (Auto) 0.1 x10^3/uL (0.0-0.2) Sodium Level 142 mmol/L (136-145) Potassium Level 3.7 mmol/L (3.5-5.1) Chloride Level 112 mmol/L (98-107) Carbon Dioxide Level 21 mmol/L (21-32) Anion Gap 9 (6-14) Blood Urea Nitrogen 17 mg/dL (7-20) Creatinine 0.7 mg/dL (0.6-1.0) Estimated GFR (Cockcroft-Gault) 85.4 BUN/Creatinine Ratio 24 (6-20) Glucose Level 84 mg/dL (70-99) Calcium Level 8.1 mg/dL (8.5-10.1) Total Bilirubin 0.3 mg/dL (0.2-1.0) Aspartate Amino Transf (AST/SGOT) 22 U/L (15-37) Alanine Aminotransferase (ALT/SGPT) 47 U/L (14-59) Alkaline Phosphatase 61 U/L (46-116) Total Protein 4.8 g/dL (6.4-8.2) Albumin 1.9 g/dL (3.4-5.0) Albumin/Globulin Ratio 0.7 (1.0-1.7) Microbiology 09/17/17 Blood Culture - Final, Complete NO GROWTH AFTER 5 DAYS 09/20/17 AFB Specimen Processing Tissue - Final, Resulted 09/20/17 Acid Fast Bacilli Culture, Resulted Pending 09/20/17 Gram Stain - Final, Resulted 09/20/17 Fungal Culture - Preliminary, Resulted 09/20/17 Fungal Culture Result 1 - Preliminary, Resulted Medications Current Medications Sodium Chloride 1,000 ml @ 125 mls/hr 1X ONCE IV Last administered on t 15:54; Start 09/17/17 at 15:15; Stop 09/17/17 at 23:14; Status DC Ondansetron HCl (Zofran) 4 mg PRN Q8HRS PRN IV NAUSEA/VOMITING; Start at 16:30; Stop 09/18/17 at 16:29; Status DC Ceftriaxone Sodium 50 ml @ 0 mls/hr 1X ONCE IV Last administered on 17:33; Start 09/17/17 at 16:45; Stop 09/17/17 at 16:46; Status DC Azithromycin 250 ml @ 250 mls/hr 1X ONCE IV Last administered on 09/17/17 22:38; Start 09/17/17 at 16:30; Stop 09/17/17 at 17:29; Status DC Albuterol/ Ipratropium (Duoneb) 3 ml 1X ONCE NEB Last administered on 17:00; Start 09/17/17 at 16:45; Stop 09/17/17 at 16:46; Status DC Potassium Chloride (Klor-Con) 40 meq 1X ONCE PO Last administered on 16:57; Start 09/17/17 at 16:45; Stop 09/17/17 at 16:46; Status DC Azithromycin (Zithromax) 250 mg DAILY PO Last administered on 09/18/17 10:25 ; Start 09/18/17 at 09:00; Stop 09/19/17 at 10:30; Status DC Ceftriaxone Sodium 1 gm/ Dextrose 50 ml @ 100 mls/hr Q24H IV ; Start 09/17/17 at 17:15; Status UNV Albuterol/ Ipratropium (Duoneb) 3 ml Q4HRS NEB Last administered on 09/30/17 08:11; Start 09/17/17 at 20:00; Stop 09/30/17 at 09:21; Status DC Ceftriaxone Sodium (Rocephin) 1 gm Q24H IVP Last administered on 09/18/17 17: 55; Start 09/18/17 at 16:00; Stop 09/19/17 at 10:30; Status DC Guaifenesin (Robitussin Dm) 10 ml PRN Q6HRS PRN PO COUGH; Start 09/17/17 at 17 :15; Stop 09/30/17 at 09:21; Status DC Sodium Chloride 1,000 ml @ 125 mls/hr 1X ONCE IV Last administered on 17:45; Start 09/17/17 at 17:15; Stop 09/17/17 at 22:12; Status DC Info (Do NOT chart on this placeholder) 1 each 1X ONCE MC ; Start 09/17/17 at 19:00; Stop 09/17/17 at 19:01; Status UNV Influenza Virus Vaccine Quadrival (Fluarix Quad [id number] Syringe) 0.5 ml ONCE ONCE VAX IM Last administered on 09/17/17 21:00; Start 09/17/17 at 21:00; Stop 09/17/17 at 21:01; Status DC Sodium Chloride 1,000 ml @ 130 mls/hr 1X ONCE IV Last administered on 22:31; Start 09/17/17 at 22:30; Stop 09/18/17 at 06:11; Status DC Sodium Bicarbonate 50 meq 1X ONCE IV Last administered on 09/17/17 22:31; Start 09/17/17 at 22:30; Stop 09/17/17 at 22:31; Status DC Alprazolam (Xanax) 1 mg PRN TID PRN PO ANXIETY Last administered on 09/19/17 02:19; Start 09/17/17 at 22:30; Stop 09/30/17 at 09:21; Status DC Furosemide (Lasix) 20 mg 1X ONCE IVP Last administered on 09/18/17 06:24; Start 09/18/17 at 06:30; Stop 09/18/17 at 06:31; Status DC Potassium Chloride (Klor-Con) 40 meq 1X ONCE PO Last administered on 10:25; Start 09/18/17 at 09:00; Stop 09/18/17 at 09:01; Status DC Iron Sucrose 500 mg/Sodium Chloride 275 ml @ 78.571 mls/ hr 1X ONCE IV Last administered on 09/18/17 10:24; Start 09/18/17 at 09:00; Stop 09/18/17 at 12 :29; Status DC Furosemide (Lasix) 20 mg 1X ONCE IVP Last administered on 09/18/17 10:30; Start 09/18/17 at 10:00; Stop 09/18/17 at 10:22; Status DC Pantoprazole Sodium (Protonix) 40 mg DAILYAC PO Last administered on 10:47; Start 09/18/17 at 11:00; Stop 09/19/17 at 13:41; Status DC Furosemide (Lasix) 20 mg 1X ONCE IVP Last administered on 09/18/17 10:47; Start 09/18/17 at 10:45; Stop 09/18/17 at 10:46; Status DC Potassium Chloride (Klor-Con) 40 meq 1X ONCE PO ; Start 09/18/17 at 11:45; Stop 09/18/17 at 11:46; Status DC Oxycodone/ Acetaminophen (Percocet 5/325) 1 tab PRN Q6HRS PRN PO PAIN Last administered on 10/07/17 15:47; Start 09/18/17 at 12:15 Lorazepam (Ativan) 1 mg PRN Q4HRS PRN IV ANXIETY / AGITATION Last administered on 09/18/17 12:25; Start 09/18/17 at 12:15; Stop 09/18/17 at 13:34; Status DC Fentanyl Citrate (Fentanyl 2ml Vial) 50 mcg PRN Q2HR PRN IV PAIN Last administered on 09/19/17 04:09; Start 09/18/17 at 12:15; Stop 09/30/17 at 09 :21; Status DC Lorazepam (Ativan) 2 mg PRN Q4HRS PRN IV ANXIETY / AGITATION Last administered on 09/29/17 05:17; Start 09/18/17 at 13:30; Stop 09/30/17 at 09:21; Status DC Quetiapine Fumarate (SEROquel) 25 mg HS PO Last administered on 09/18/17 21: 03; Start 09/18/17 at 21:00; Stop 09/19/17 at 10:35; Status DC Haloperidol Lactate (Haldol) 5 mg PRN Q12HRS PRN IVP AGITATION; Start at 13:45 Lorazepam (Ativan) 1 mg PRN Q4HRS PRN IV ANXIETY / AGITATION; Start 09/19/17 at 10:15; Stop 09/19/17 at 10:18; Status DC Lorazepam (Ativan) 4 mg 1X ONCE IV ; Start 09/19/17 at 10:30; Stop 09/19/17 at 10:31; Status DC Vancomycin HCl (Vanco Per Pharmacy) 1 each PRN DAILY PRN MC SEE COMMENTS Last administered on 09/23/17 12:36; Start 09/19/17 at 10:30; Stop 09/24/17 at 08 :36; Status DC Piperacillin Sod/ Tazobactam Sod (Zosyn Per Pharmacy) 1 each PRN DAILY PRN MC SEE COMMENTS; Start 09/19/17 at 10:30; Stop 09/24/17 at 08:41; Status DC Vancomycin HCl 2 gm/Dextrose 500 ml @ 250 mls/hr 1X ONCE IV Last administered on 09/19/17 14:53; Start 09/19/17 at 11:00; Stop 09/19/17 at 12 :59; Status DC Piperacillin Sod/ Tazobactam Sod (Zosyn) 3.375 gm Q6HRS IVP Last administered on 10/02/17 17:13; Start 09/19/17 at 11:00; Stop 10/02/17 at 19:14; Status DC Budesonide (Pulmicort) 0.5 mg RTBID NEB Last administered on 10/08/17 07:36; Start 09/19/17 at 20:00 Budesonide (Pulmicort) 0.5 mg 1X ONCE NEB Last administered on 09/19/17 12: 50; Start 09/19/17 at 10:45; Stop 09/19/17 at 10:46; Status DC Pantoprazole Sodium (PROTONIX VIAL for IV PUSH) 40 mg DAILYAC IVP Last administered on 10/03/17 08:23; Start 09/19/17 at 11:30; Stop 10/04/17 at 08 :51; Status DC Furosemide (Lasix) 40 mg DAILY IVP ; Start 09/19/17 at 11:00; Stop 09/20/17 at 13:20; Status DC Methylprednisolone Sodium Succinate (SOLU-Medrol 125MG VIAL) 125 mg 1X ONCE IV Last administered on 09/19/17 13:23; Start 09/19/17 at 10:45; Stop at 10:46; Status DC Prednisone (Prednisone) 40 mg DAILY PO ; Start 09/19/17 at 11:00; Stop at 09:02; Status DC Methylprednisolone Sodium Succinate (SOLU-Medrol 125MG VIAL) 125 mg Q8HRS IV Last administered on 09/23/17 05:43; Start 09/19/17 at 14:00; Stop 09/23/17 at 10:40; Status DC Midazolam HCl 100 ml @ 0 mls/hr CONT PRN IV SEE I/O RECORD; Start 09/19/17 at 11:00; Stop 09/19/17 at 12:51; Status DC Midazolam HCl (Versed) 5 mg 1X ONCE IV ; Start 09/19/17 at 11:00; Stop at 11:01; Status DC Fentanyl Citrate (Fentanyl 2ml Vial) 50 mcg 1X ONCE IV ; Start 09/19/17 at 11: 00; Stop 09/19/17 at 11:01; Status DC Midazolam HCl 100 ml @ As Directed STK-MED ONCE IV ; Start 09/19/17 at 10:55; Stop 09/19/17 at 10:56; Status DC Midazolam HCl (Versed) 5 mg STK-MED ONCE .ROUTE ; Start 09/19/17 at 10:55; Stop 09/19/17 at 10:56; Status DC Propofol 100 ml @ As Directed STK-MED ONCE IV ; Start 09/19/17 at 10:59; Stop 09/19/17 at 11:00; Status DC Norepinephrine Bitartrate 250 ml @ As Directed STK-MED ONCE IV ; Start at 10:59; Stop 09/19/17 at 11:00; Status DC Furosemide (Lasix) 20 mg 1X ONCE IVP ; Start 09/19/17 at 11:15; Stop at 11:16; Status DC Vecuronium [place] (Norcuron Bolus) 10 mg STK-MED ONCE IV ; Start 09/19/17 at 11:21; Stop 09/19/17 at 11:22; Status DC Fentanyl Citrate 30 ml @ 0 mls/hr CONT PRN IV PROTOCOL Last administered on t 15:08; Start 09/19/17 at 11:30; Stop 09/23/17 at 15:24; Status DC Vecuronium [place] (Norcuron Bolus) 6 mg 1X ONCE IV Last administered on 09/19t 11:42; Start 09/19/17 at 11:30; Stop 09/19/17 at 11:39; Status DC Propofol 10 ml @ 0 mls/hr 1X ONCE IV Last administered on 09/19/17t 11:30; Start 09/19/17 at 11:30; Stop 09/19/17 at 11:39; Status DC Midazolam HCl 100 ml @ 0 mls/hr CONT PRN IV SEE I/O RECORD Last administered on 09/27/17 00:40; Start 09/19/17 at 11:30; Stop 09/30/17 at 09:21; Status DC Norepinephrine Bitartrate 250 ml @ 0 mls/hr CONT PRN IV SEE I/O RECORD Last administered on 09/24/17 05:18; Start 09/19/17 at 11:30; Stop 09/30/17 at 09 :21; Status DC Succinylcholine Chloride (Anectine) 100 mg 1X ONCE IV Last administered on 11:42; Start 09/19/17 at 11:30; Stop 09/19/17 at 11:39; Status DC Sodium Bicarbonate 50 meq 1X ONCE IV Last administered on 09/19/17 13:23; Start 09/19/17 at 12:45; Stop 09/19/17 at 12:46; Status DC Sodium Bicarbonate 50 meq 1X ONCE IV Last administered on 09/19/17 13:23; Start 09/19/17 at 12:45; Stop 09/19/17 at 12:46; Status DC Lidocaine/Sodium Bicarbonate (Buffered Lidocaine 1%) 20 ml STK-MED ONCE IJ ; Start 09/19/17 at 13:34; Stop 09/19/17 at 13:35; Status DC Vecuronium [place] (Norcuron Bolus) 10 mg 1X ONCE IV Last administered on 15:05; Start 09/19/17 at 14:00; Stop 09/19/17 at 14:02; Status DC Lidocaine/Sodium Bicarbonate (Buffered Lidocaine 1%) 3 ml 1X ONCE IJ ; Start 09/19/17 at 14:45; Stop 09/19/17 at 14:46; Status DC Vancomycin HCl 1.25 gm/Dextrose 250 ml @ 166.667 mls/hr Q24H IV Last administered on 09/23/17 17:19; Start 09/20/17 at 15:00; Stop 09/24/17 at 08 :35; Status DC Vancomycin HCl 1 each 1X ONCE MC Last administered on 09/21/17 14:30; Start 09/21/17 at 14:30; Stop 09/21/17 at 14:31; Status DC Azithromycin 500 mg/Sodium Chloride 250 ml @ 250 mls/hr Q24H IV Last administered on 09/23/17 17:19; Start 09/19/17 at 16:30; Stop 09/24/17 at 08 :35; Status DC Norepinephrine Bitartrate (Levophed 8mg/ 250ml Premix Drip) 8 mg STK-MED ONCE IV ; Start 09/19/17 at 11:00; Stop 09/20/17 at 08:44; Status DC Midazolam HCl (Versed) 5 mg STK-MED ONCE .ROUTE ; Start 09/19/17 at 11:00; Stop 09/20/17 at 08:44; Status DC Amino Acids/ Glycerin/ Electrolytes 1,000 ml @ 80 mls/hr [id number] IV Last administered on 09/21/17 01:21; Start 09/20/17 at 10:00; Stop 09/22/17 at 07 :02; Status DC Info 1 each PRN DAILY PRN MC SEE COMMENTS; Start 09/20/17 at 10:00; Stop at 12:14; Status DC Furosemide (Lasix) 20 mg 1X ONCE IVP Last administered on 09/20/17 10:21; Start 09/20/17 at 10:15; Stop 09/20/17 at 10:18; Status DC Info 1 each PRN DAILY PRN MC SEE COMMENTS; Start 09/20/17 at 11:00; Status UNV Vecuronium [place] (Norcuron Bolus) 10 mg 1X ONCE IV Last administered on 12:03; Start 09/20/17 at 11:15; Stop 09/20/17 at 11:24; Status DC Atropine Sulfate 0.5 mg STK-MED ONCE .ROUTE ; Start 09/20/17 at 11:47; Stop at 11:48; Status DC Epinephrine HCl (EPINEPHrine SYRINGE) 1 mg STK-MED ONCE .ROUTE ; Start at 11:47; Stop 09/20/17 at 11:48; Status DC Atropine Sulfate 0.5 mg STK-MED ONCE .ROUTE ; Start 09/20/17 at 12:00; Stop at 09:11; Status DC Epinephrine HCl (EPINEPHrine SYRINGE) 1 mg STK-MED ONCE .ROUTE ; Start at 12:00; Stop 09/21/17 at 09:11; Status DC Furosemide (Lasix) 20 mg DAILY IVP ; Start 09/21/17 at 11:15; Stop 09/21/17 at 11:20; Status DC Lorazepam (Ativan) 1 mg PRN Q1HR PRN IV ANXIETY / AGITATION Last administered on 09/28/17 17:04; Start 09/21/17 at 11:15; Stop 09/30/17 at 09:21; Status DC Albumin Human 250 ml @ 62.5 mls/hr 1X ONCE IV Last administered on 11:57; Start 09/21/17 at 11:30; Stop 09/21/17 at 15:29; Status DC Albumin Human 250 ml @ 62.5 mls/hr 1X ONCE IV Last administered on 14:29; Start 09/21/17 at 11:30; Stop 09/21/17 at 15:29; Status DC Micafungin Sodium 100 mg/Dextrose 100 ml @ 100 mls/hr Q24H IV Last administered on 09/23/17 13:17; Start 09/21/17 at 12:00; Stop 09/24/17 at 08 :35; Status DC Vecuronium [place] (Norcuron Bolus) 4 mg PRN Q4HRS PRN IV AGITATION; Start at 15:00; Stop 09/30/17 at 09:21; Status DC Dexmedetomidine HCl 200 mcg/ Sodium Chloride 50 ml @ 0 mls/hr CONT PRN IV PER PROTOCOL Last administered on 09/21/17 15:54; Start 09/21/17 at 15:30; Stop 09/30/17 at 09:21; Status DC Sodium Chloride 500 ml @ 500 mls/hr 1X PRN PRN IV SEE COMMENTS; Start at 15:30 Atropine Sulfate 0.5 mg PRN Q5MIN PRN IV SEE COMMENTS; Start 09/21/17 at 15:30 Propofol 100 ml @ 0 mls/hr CONT PRN IV PER PROTOCOL Last administered on 14:35; Start 09/21/17 at 16:45; Stop 09/30/17 at 09:21; Status DC Furosemide (Lasix) 20 mg 1X ONCE IVP Last administered on 09/22/17 09:41; Start 09/22/17 at 10:15; Stop 09/22/17 at 10:16; Status DC Chlorhexidine Gluconate (Peridex) 15 ml BID MM Last administered on 09/29/17 08:07; Start 09/22/17 at 21:00; Stop 09/29/17 at 20:22; Status DC Furosemide (Lasix) 20 mg 1X ONCE IVP Last administered on 09/22/17 17:55; Start 09/22/17 at 18:00; Stop 09/22/17 at 18:01; Status DC Furosemide (Lasix) 20 mg DAILY IVP Last administered on 09/23/17 13:16; Start 09/23/17 at 11:30; Stop 09/24/17 at 08:40; Status DC Methylprednisolone Sodium Succinate (SOLU-Medrol 125MG VIAL) 80 mg Q8HRS IV Last administered on 09/30/17 05:47; Start 09/23/17 at 14:00; Stop 09/30/17 at 09:26; Status DC Fentanyl Citrate 55 ml @ 0 mls/hr CONT PRN PRN IV PER PROTOCOL Last administered on 09/28/17 19:13; Start 09/23/17 at 12:15; Stop 09/30/17 at 09 :21; Status DC Dextrose 1,000 ml @ 25 mls/hr Q24H IV Last administered on 09/28/17 12:59; Start 09/23/17 at 11:45; Stop 10/04/17 at 13:14; Status DC Enoxaparin Sodium (Lovenox Per Pharmacy Prophylaxis Dosing) 1 each PRN DAILY PRN MC SEE COMMENTS; Start 09/23/17 at 16:30; Stop 09/24/17 at 08:41; Status DC Enoxaparin Sodium (Lovenox 40mg Syringe) 40 mg Q24H SQ Last administered on 17:32; Start 09/23/17 at 17:00; Stop 10/07/17 at 12:42; Status DC Bisacodyl (Dulcolax Tab) 5 mg PRN DAILY PRN PO CONSTIPATION; Start 09/24/17 at 09:30 Insulin Aspart (NovoLOG) 0-5 UNITS Q6HRS SQ Last administered on 09/29/17 12: 27; Start 09/25/17 at 18:00; Stop 10/01/17 at 02:54; Status DC Dextrose (Dextrose 50%-Water Syringe) 12.5 gm PRN Q15MIN PRN IV SEE COMMENTS; Start 09/25/17 at 12:30; Stop 10/01/17 at 02:54; Status DC Dextrose/Sodium Chloride 1,000 ml @ 75 mls/hr [id number] IV Last administered on 10/02/17 01:23; Start 09/29/17 at 19:00; Stop 10/02/17 at 09:07; Status DC Ondansetron HCl (Zofran) 4 mg PRN Q6HRS PRN IV NAUSEA/VOMITING Last administered on 10/01/17 20:33; Start 09/29/17 at 20:00 Albuterol/ Ipratropium (Duoneb) 3 ml TID NEB Last administered on 10/08/17 07: 36; Start 09/30/17 at 14:00 Methylprednisolone Sodium Succinate (SOLU-Medrol 125MG VIAL) 80 mg Q12HR IV Last administered on 10/01/17 08:56; Start 09/30/17 at 21:00; Stop 10/01/17 at 10:22; Status DC Iron Sucrose 500 mg/Sodium Chloride 275 ml @ 78.571 mls/ hr 1X ONCE IV Last administered on 10/01/17 10:08; Start 10/01/17 at 09:30; Stop 10/01/17 at 12 :59; Status DC Methylprednisolone Sodium Succinate (SOLU-Medrol 40MG VIAL) 40 mg Q12HR IV ; Start 10/01/17 at 21:00; Stop 10/01/17 at 21:00; Status DC Alprazolam (Xanax) 0.25 mg PRN Q8HRS PRN PO ANXIETY / AGITATION Last administered on 10/07/17 02:45; Start 10/01/17 at 10:30 Quetiapine Fumarate (SEROquel) 50 mg HS PO Last administered on 10/07/17 21:09 ; Start 10/01/17 at 21:00 Methylprednisolone Sodium Succinate (SOLU-Medrol 40MG VIAL) 40 mg QHS IV Last administered on 10/01/17 20:32; Start 10/01/17 at 21:00; Stop 10/02/17 at 10 :36; Status DC Saliva Substitute (Biotene Moisturizing Mouth) 2 spray PRN Q15MIN PRN PO DRY MOUTH; Start 10/02/17 at 09:15 Info 1 each PRN DAILY PRN MC SEE COMMENTS Last administered on 10/06/17 12:34 ; Start 10/02/17 at 09:15; Stop 10/07/17 at 11:35; Status DC Amino Acids/ Glycerin/ Electrolytes 1,000 ml @ 100 mls/hr Q10H IV Last administered on 10/02/17 09:57; Start 10/02/17 at 10:00; Stop 10/02/17 at 19 :59; Status DC Methylprednisolone Sodium Succinate (SOLU-Medrol 40MG VIAL) 20 mg QHS IV Last administered on 10/02/17 21:38; Start 10/02/17 at 21:00; Stop 10/03/17 at 12 :46; Status DC Sodium Acetate 40 meq/Potassium Chloride 50 meq/ Potassium Phosphate 13.6 mmol/ Magnesium Sulfate 10 meq/ Calcium Gluconate 10 meq/ Multivitamins 10 ml/Chromium / Copper/Manganese/ Seleni/Zn 1 ml/ Total Parenteral Nutrition/Amino Acids/ Dextrose/ Fat Emulsion Intravenous 1,512 ml @ 63 mls/hr TPN CONT IV Last administered on 10/02/17 21:37; Start 10/02/17 at 22:00; Stop 10/03/17 at 21 :59; Status DC Morphine Sulfate 2 mg PRN Q2HR PRN IV SEVERE PAIN Last administered on 14:28; Start 10/03/17 at 06:00 Lorazepam (Ativan) 1 mg PRN Q4HRS PRN IV ANXIETY / AGITATION Last administered on 10/04/17 01:15; Start 10/03/17 at 06:00 Potassium Phosphate 13.6 mmol/Sodium Chloride 104.5333 ml @ 52.267 m... Q2H IV Last administered on 10/03/17 17:28; Start 10/03/17 at 12:00; Stop at 15:59; Status DC Potassium Acetate 70 meq/Potassium Phosphate 13.6 mmol/Magnesium Sulfate 10 meq / Calcium Gluconate 10 meq/ Multivitamins 10 ml/Chromium/ Copper/Manganese/ Seleni/Zn 1 ml/ Total Parenteral Nutrition/Amino Acids/Dextrose/ Fat Emulsion Intravenous 1,992 ml @ 83 mls/hr TPN CONT IV Last administered on 10/03/17 22:00; Start 10/03/17 at 22:00; Stop 10/04/17 at 21:59; Status DC Vitamin A/Vitamin D (Vitamin A & D Ointment) 1 joe PRN BID PRN TP SKIN PROTECTION Last administered on 10/04/17 01:28; Start 10/03/17 at 14:00 Pantoprazole Sodium (Protonix) 40 mg DAILYAC PO Last administered on 10/07/17 08:17; Start 10/05/17 at 07:30; Stop 10/07/17 at 15:24; Status DC Simethicone (Gas-X) 80 mg PRN AFTMEALHC PRN PO GAS / BLOATING Last administered on 10/04/17 21:09; Start 10/04/17 at 09:00 Polyethylene Glycol (miraLAX PACKET) 17 gm PRN DAILY PRN PO CONSTIPATION; Start 10/04/17 at 09:00 Potassium Acetate 70 meq/Potassium Phosphate 13.6 mmol/Magnesium Sulfate 10 meq / Calcium Gluconate 10 meq/ Multivitamins 10 ml/Chromium/ Copper/Manganese/ Seleni/Zn 1 ml/ Total Parenteral Nutrition/Amino Acids/Dextrose/ Fat Emulsion Intravenous 1,992 ml @ 83 mls/hr TPN CONT IV Last administered on 10/05/17 00:02; Start 10/04/17 at 22:00; Stop 10/05/17 at 21:59; Status DC Iohexol (Omnipaque 300 Mg/ml) 75 ml 1X ONCE IV Last administered on 16:25; Start 10/04/17 at 15:30; Stop 10/04/17 at 15:31; Status DC Info (Do NOT chart on this entry -- for MONITORING) 1 each PRN DAILY PRN MC SEE COMMENTS; Start 10/04/17 at 15:45; Stop 10/06/17 at 15:44; Status DC Loperamide HCl (Imodium) 2 mg PRN Q1HR PRN PEG DIARRHEA Last administered on 15:49; Start 10/05/17 at 07:00 Furosemide (Lasix) 20 mg DAILY PO Last administered on 10/07/17 08:17; Start 10/05/17 at 09:00 Potassium Acetate 70 meq/Potassium Phosphate 13.6 mmol/Magnesium Sulfate 10 meq / Calcium Gluconate 10 meq/ Multivitamins 10 ml/Chromium/ Copper/Manganese/ Seleni/Zn 1 ml/ Total Parenteral Nutrition/Amino Acids/Dextrose/ Fat Emulsion Intravenous 1,600 ml @ 66.667 mls/ hr TPN CONT IV Last administered on 22:42; Start 10/05/17 at 22:00; Stop 10/06/17 at 21:59; Status DC Dicyclomine HCl (Bentyl) 10 mg PRN Q6HRS PRN PO MILD PAIN Last administered on 10/06/17 23:10; Start 10/05/17 at 17:15 Tramadol HCl (Ultram) 50 mg PRN Q6HRS PRN PO PAIN Last administered on 08:16; Start 10/06/17 at 10:45 Potassium Acetate 70 meq/Potassium Phosphate 13.6 mmol/Magnesium Sulfate 10 meq / Calcium Gluconate 10 meq/ Multivitamins 10 ml/Chromium/ Copper/Manganese/ Seleni/Zn 1 ml/ Sodium Acetate 30 meq/Total Parenteral Nutrition/Amino Acids/ Dextrose/ Fat Emulsion Intravenous 1,600 ml @ 66.667 mls/ hr TPN CONT IV ; Start 10/06/17 at 22:00; Stop 10/07/17 at 21:59; Status DC Pantoprazole Sodium (Protonix) 40 mg BIDAC PO ; Start 10/07/17 at 16:30 Epinephrine HCl (Adrenalin) 1 mg STK-MED ONCE .ROUTE ; Start 10/08/17 at 12:57; Stop 10/08/17 at 12:58; Status DC Active Scripts Active Reported Gabapentin 300 Mg Capsule 300 Mg PO TID Cymbalta (Duloxetine Hcl) 60 Mg Capsule. 1 Cap PO BID Hydrochlorothiazide Tablet (Hydrochlorothiazide) 25 Mg Tablet 1 Tab PO DAILY Xanax (Alprazolam) 1 Mg Tablet 1 Tab PO TID PRN Vitals/I & O Vital Sign - Last 24 Hours 10/07/17 10/07/17 10/07/17 10/07/17 14:47 15:47 16:55 19:32 Temp 98.6 98.6 Pulse 86 Resp 15 B/P (MAP) 115/67 (83) Pulse Ox 98 98 98 O2 Delivery Room Air Room Air Room Air Room Air O2 Flow Rate 2.0 10/07/17 10/07/17 10/07/17 10/07/17 19:32 19:49 19:50 23:39 Temp 98.0 98.1 98.0 98.1 Pulse 72 91 Resp 20 18 B/P (MAP) 114/69 (84) 91/40 (57) Pulse Ox 99 96 O2 Delivery Room Air Room Air Room Air Room Air 10/08/17 10/08/17 10/08/17 10/08/17 03:40 06:50 07:39 08:05 Temp 97.9 97.3 97.9 97.3 Pulse 104 93 Resp 20 18 B/P (MAP) 111/72 (85) 115/82 (93) Pulse Ox 98 97 96 O2 Delivery Room Air Room Air Room Air Room Air 10/08/17 10/08/17 10/08/17 10/08/17 10:49 12:23 12:35 13:15 Temp 98.1 99.8 98.1 98.1 99.8 98.1 Pulse 101 87 91 Resp 18 18 18 B/P (MAP) 127/83 (98) 100/58 Pulse Ox 100 100 98 O2 Delivery Room Air Room Air Nasal Cannula O2 Flow Rate 2.0 3 10/08/17 10/08/17 10/08/17 10/08/17 13:30 13:45 14:11 14:28 Temp 98.6 98.6 Pulse 85 77 92 Resp 20 20 20 B/P (MAP) 117/76 117/59 118/70 (86) Pulse Ox 97 98 97 97 O2 Delivery Room Air Room Air Room Air Room Air Intake and Output 10/07/17 10/07/17 10/08/17 15:00 23:00 07:00 Intake Total 400 ml 600 ml Balance 400 ml 600 ml YELITZA MARROQUIN MD Oct 08, 2017 14:36
[2017-10-08] MEDS: oxyCODONE/APAP 5/325 1 TAB TABLET PO PRN ×2 (15:21→23:44)
[2017-10-08] MEDS: ALPRAZolam 0.25 MG TABLET PO PRN (19:35)
[2017-10-08] MEDS: traMADol 50 MG TABLET PO PRN (19:41)
[2017-10-08 19:47] VITALS: BP 121/71
[2017-10-08] MEDS: QUEtiapine 25 MG TABLET. PO SCH (20:26)
[2017-10-08 23:10] VITALS: BP 97/62
[2017-10-09] MEDS: traMADol 50 MG TABLET PO PRN (03:25)
[2017-10-09 03:51] VITALS: BP 98/59
[2017-10-09 06:53] VITALS: BP 108/64
[2017-10-09] MEDS: IPRATRPIUM/ALBUTEROL 0.5/2.5MG 3 ML NEBU. NEB SCH ×2 (07:41→13:34)
[2017-10-09] MEDS: BUDESONIDE 0.5 MG/2 ML NEBU. NEB SCH (07:41)
--- NOTE | 2017-10-09 09:08 | PDOC ---
PROGRESS NOTES Subjective Subjective HPI - f/u of Iron deficiency anemia due to gastric ulcer. ROS - no GI bleed Objective Objective Vital Signs Date Time Temp Pulse Resp B/P (MAP) Pulse Ox O2 Delivery O2 Flow Rate FiO2 10/09/17 07:43 97 Room Air 10/09/17 06:53 98.6 88 17 108/64 (79) 98.6 10/08/17 13:15 3 Intake and Output 10/09/17 07:00 Intake Total 920 ml Balance 920 ml Intake Oral 920 ml # Voids 4 Physical Exam Heart: Normal S1, Normal S2 General: Alert, Oriented X3, No acute distress Lungs: Clear to auscultation, Normal air movement Psych/Mental Status: Mental status NL Assessment Assessment Problems Medical Problems: (1) Dyspnea Status: Acute (2) Hypoalbuminemia Status: Acute (3) Metabolic acidosis Status: Acute (4) Pneumonia Status: Acute IMPRESSION AND PLAN: 1. Iron deficiency anemia due to gastric ulcer. She received Venofer 500 mg intravenous on 09/18/2017. I will continue to monitor hemoglobin and transfuse as needed. Hemoglobin improved to 7.7 after transfusion. Then worse at 6.6 on 09/19/17. s/p 1 unit 09/19/17. Hb worse at 7.5 on 10/01/17 and 7.6 on 10/02/17, s/p PRBC. Hb better at 9.1 s/p second dose of venofer 500 mg IV 10/01/17. Bleeding scan 10/02/17 is normal. Hb 8.2 I d/w GI. 2. Leukocytosis, reactive from underlying pneumonia. Management per Pulmonary Medicine. WBC 6.2 3. Pneumonia/dyspnea - Improved. 4. Gastric ulcer 10/08/17 - Prepyloric ulcer with recent bleeding; s/p epi/BICAP Comment Review of Relevant I have reviewed the following items tha (where applicable) has been applied. Labs Laboratory Tests Test 10/07/17 15:55 10/08/17 05:23 Hemoglobin 8.5 g/dL (12.0-15.5) 8.2 g/dL (12.0-15.5) Hematocrit 26.1 % (36.0-47.0) 25.2 % (36.0-47.0) Mean Corpuscular Hemoglobin Concent 33 g/dL (31-37) 33 g/dL (31-37) White Blood Count 6.2 x10^3/uL (4.0-11.0) Red Blood Count 2.77 x10^6/uL (3.50-5.40) Mean Corpuscular Volume 91 fL (79-100) Mean Corpuscular Hemoglobin 30 pg (25-35) Red Cell Distribution Width 22.1 % (11.5-14.5) Platelet Count 224 x10^3/uL (140-400) Neutrophils (%) (Auto) 77 % (31-73) Lymphocytes (%) (Auto) 8 % (24-48) Monocytes (%) (Auto) 5 % (0-9) Eosinophils (%) (Auto) 9 % (0-3) Basophils (%) (Auto) 1 % (0-3) Neutrophils # (Auto) 4.7 x10^3uL (1.8-7.7) Lymphocytes # (Auto) 0.5 x10^3/uL (1.0-4.8) Monocytes # (Auto) 0.3 x10^3/uL (0.0-1.1) Eosinophils # (Auto) 0.5 x10^3/uL (0.0-0.7) Basophils # (Auto) 0.1 x10^3/uL (0.0-0.2) Sodium Level 142 mmol/L (136-145) Potassium Level 3.7 mmol/L (3.5-5.1) Chloride Level 112 mmol/L (98-107) Carbon Dioxide Level 21 mmol/L (21-32) Anion Gap 9 (6-14) Blood Urea Nitrogen 17 mg/dL (7-20) Creatinine 0.7 mg/dL (0.6-1.0) Estimated GFR (Cockcroft-Gault) 85.4 BUN/Creatinine Ratio 24 (6-20) Glucose Level 84 mg/dL (70-99) Calcium Level 8.1 mg/dL (8.5-10.1) Total Bilirubin 0.3 mg/dL (0.2-1.0) Aspartate Amino Transf (AST/SGOT) 22 U/L (15-37) Alanine Aminotransferase (ALT/SGPT) 47 U/L (14-59) Alkaline Phosphatase 61 U/L (46-116) Total Protein 4.8 g/dL (6.4-8.2) Albumin 1.9 g/dL (3.4-5.0) Albumin/Globulin Ratio 0.7 (1.0-1.7) Microbiology 09/17/17 Blood Culture - Final, Complete NO GROWTH AFTER 5 DAYS 09/20/17 AFB Specimen Processing Tissue - Final, Resulted 09/20/17 Acid Fast Bacilli Culture, Resulted Pending 09/20/17 Gram Stain - Final, Resulted 09/20/17 Fungal Culture - Preliminary, Resulted 09/20/17 Fungal Culture Result 1 - Preliminary, Resulted Medications Current Medications Sodium Chloride 1,000 ml @ 125 mls/hr 1X ONCE IV Last administered on 15:54; Start 09/17/17 at 15:15; Stop 09/17/17 at 23:14; Status DC Ondansetron HCl (Zofran) 4 mg PRN Q8HRS PRN IV NAUSEA/VOMITING; Start at 16:30; Stop 09/18/17 at 16:29; Status DC Ceftriaxone Sodium 50 ml @ 0 mls/hr 1X ONCE IV Last administered on 17:33; Start 09/17/17 at 16:45; Stop 09/17/17 at 16:46; Status DC Azithromycin 250 ml @ 250 mls/hr 1X ONCE IV Last administered on 09/17/17 22:38; Start 09/17/17 at 16:30; Stop 09/17/17 at 17:29; Status DC Albuterol/ Ipratropium (Duoneb) 3 ml 1X ONCE NEB Last administered on 17:00; Start 09/17/17 at 16:45; Stop 09/17/17 at 16:46; Status DC Potassium Chloride (Klor-Con) 40 meq 1X ONCE PO Last administered on 16:57; Start 09/17/17 at 16:45; Stop 09/17/17 at 16:46; Status DC Azithromycin (Zithromax) 250 mg DAILY PO Last administered on 09/18/17 10:25 ; Start 09/18/17 at 09:00; Stop 09/19/17 at 10:30; Status DC Ceftriaxone Sodium 1 gm/ Dextrose 50 ml @ 100 mls/hr Q24H IV ; Start 09/17/17 at 17:15; Status UNV Albuterol/ Ipratropium (Duoneb) 3 ml Q4HRS NEB Last administered on 09/30/17 08:11; Start 09/17/17 at 20:00; Stop 09/30/17 at 09:21; Status DC Ceftriaxone Sodium (Rocephin) 1 gm Q24H IVP Last administered on 09/18/17 17: 55; Start 09/18/17 at 16:00; Stop 09/19/17 at 10:30; Status DC Guaifenesin (Robitussin Dm) 10 ml PRN Q6HRS PRN PO COUGH; Start 09/17/17 at 17 :15; Stop 09/30/17 at 09:21; Status DC Sodium Chloride 1,000 ml @ 125 mls/hr 1X ONCE IV Last administered on 17:45; Start 09/17/17 at 17:15; Stop 09/17/17 at 22:12; Status DC Info (Do NOT chart on this placeholder) 1 each 1X ONCE MC ; Start 09/17/17 at 19:00; Stop 09/17/17 at 19:01; Status UNV Influenza Virus Vaccine Quadrival (Fluarix Quad [id number] Syringe) 0.5 ml ONCE ONCE VAX IM Last administered on 09/17/17 21:00; Start 09/17/17 at 21:00; Stop 09/17/17 at 21:01; Status DC Sodium Chloride 1,000 ml @ 130 mls/hr 1X ONCE IV Last administered on 22:31; Start 09/17/17 at 22:30; Stop 09/18/17 at 06:11; Status DC Sodium Bicarbonate 50 meq 1X ONCE IV Last administered on 09/17/17 22:31; Start 09/17/17 at 22:30; Stop 09/17/17 at 22:31; Status DC Alprazolam (Xanax) 1 mg PRN TID PRN PO ANXIETY Last administered on 09/19/17 02:19; Start 09/17/17 at 22:30; Stop 09/30/17 at 09:21; Status DC Furosemide (Lasix) 20 mg 1X ONCE IVP Last administered on 09/18/17 06:24; Start 09/18/17 at 06:30; Stop 09/18/17 at 06:31; Status DC Potassium Chloride (Klor-Con) 40 meq 1X ONCE PO Last administered on 10:25; Start 09/18/17 at 09:00; Stop 09/18/17 at 09:01; Status DC Iron Sucrose 500 mg/Sodium Chloride 275 ml @ 78.571 mls/ hr 1X ONCE IV Last administered on 09/18/17 10:24; Start 09/18/17 at 09:00; Stop 09/18/17 at 12 :29; Status DC Furosemide (Lasix) 20 mg 1X ONCE IVP Last administered on 09/18/17 10:30; Start 09/18/17 at 10:00; Stop 09/18/17 at 10:22; Status DC Pantoprazole Sodium (Protonix) 40 mg DAILYAC PO Last administered on 10:47; Start 09/18/17 at 11:00; Stop 09/19/17 at 13:41; Status DC Furosemide (Lasix) 20 mg 1X ONCE IVP Last administered on 09/18/17 10:47; Start 09/18/17 at 10:45; Stop 09/18/17 at 10:46; Status DC Potassium Chloride (Klor-Con) 40 meq 1X ONCE PO ; Start 09/18/17 at 11:45; Stop 09/18/17 at 11:46; Status DC Oxycodone/ Acetaminophen (Percocet 5/325) 1 tab PRN Q6HRS PRN PO PAIN Last administered on 10/08/17 23:44; Start 09/18/17 at 12:15 Lorazepam (Ativan) 1 mg PRN Q4HRS PRN IV ANXIETY / AGITATION Last administered on 09/18/17 12:25; Start 09/18/17 at 12:15; Stop 09/18/17 at 13:34; Status DC Fentanyl Citrate (Fentanyl 2ml Vial) 50 mcg PRN Q2HR PRN IV PAIN Last administered on 09/19/17 04:09; Start 09/18/17 at 12:15; Stop 09/30/17 at 09 :21; Status DC Lorazepam (Ativan) 2 mg PRN Q4HRS PRN IV ANXIETY / AGITATION Last administered on 09/29/17 05:17; Start 09/18/17 at 13:30; Stop 09/30/17 at 09:21; Status DC Quetiapine Fumarate (SEROquel) 25 mg HS PO Last administered on 09/18/17 21: 03; Start 09/18/17 at 21:00; Stop 09/19/17 at 10:35; Status DC Haloperidol Lactate (Haldol) 5 mg PRN Q12HRS PRN IVP AGITATION; Start at 13:45 Lorazepam (Ativan) 1 mg PRN Q4HRS PRN IV ANXIETY / AGITATION; Start 09/19/17 at 10:15; Stop 09/19/17 at 10:18; Status DC Lorazepam (Ativan) 4 mg 1X ONCE IV ; Start 09/19/17 at 10:30; Stop 09/19/17 at 10:31; Status DC Vancomycin HCl (Vanco Per Pharmacy) 1 each PRN DAILY PRN MC SEE COMMENTS Last administered on 09/23/17 12:36; Start 09/19/17 at 10:30; Stop 09/24/17 at 08 :36; Status DC Piperacillin Sod/ Tazobactam Sod (Zosyn Per Pharmacy) 1 each PRN DAILY PRN MC SEE COMMENTS; Start 09/19/17 at 10:30; Stop 09/24/17 at 08:41; Status DC Vancomycin HCl 2 gm/Dextrose 500 ml @ 250 mls/hr 1X ONCE IV Last administered on 09/19/17 14:53; Start 09/19/17 at 11:00; Stop 09/19/17 at 12 :59; Status DC Piperacillin Sod/ Tazobactam Sod (Zosyn) 3.375 gm Q6HRS IVP Last administered on 10/02/17 17:13; Start 09/19/17 at 11:00; Stop 10/02/17 at 19:14; Status DC Budesonide (Pulmicort) 0.5 mg RTBID NEB Last administered on 10/09/17 07:41; Start 09/19/17 at 20:00 Budesonide (Pulmicort) 0.5 mg 1X ONCE NEB Last administered on 09/19/17 12: 50; Start 09/19/17 at 10:45; Stop 09/19/17 at 10:46; Status DC Pantoprazole Sodium (PROTONIX VIAL for IV PUSH) 40 mg DAILYAC IVP Last administered on 10/03/17 08:23; Start 09/19/17 at 11:30; Stop 10/04/17 at 08 :51; Status DC Furosemide (Lasix) 40 mg DAILY IVP ; Start 09/19/17 at 11:00; Stop 09/20/17 at 13:20; Status DC Methylprednisolone Sodium Succinate (SOLU-Medrol 125MG VIAL) 125 mg 1X ONCE IV Last administered on 09/19/17 13:23; Start 09/19/17 at 10:45; Stop at 10:46; Status DC Prednisone (Prednisone) 40 mg DAILY PO ; Start 09/19/17 at 11:00; Stop at 09:02; Status DC Methylprednisolone Sodium Succinate (SOLU-Medrol 125MG VIAL) 125 mg Q8HRS IV Last administered on 09/23/17 05:43; Start 09/19/17 at 14:00; Stop 09/23/17 at 10:40; Status DC Midazolam HCl 100 ml @ 0 mls/hr CONT PRN IV SEE I/O RECORD; Start 09/19/17 at 11:00; Stop 09/19/17 at 12:51; Status DC Midazolam HCl (Versed) 5 mg 1X ONCE IV ; Start 09/19/17 at 11:00; Stop at 11:01; Status DC Fentanyl Citrate (Fentanyl 2ml Vial) 50 mcg 1X ONCE IV ; Start 09/19/17 at 11: 00; Stop 09/19/17 at 11:01; Status DC Midazolam HCl 100 ml @ As Directed STK-MED ONCE IV ; Start 09/19/17 at 10:55; Stop 09/19/17 at 10:56; Status DC Midazolam HCl (Versed) 5 mg STK-MED ONCE .ROUTE ; Start 09/19/17 at 10:55; Stop 09/19/17 at 10:56; Status DC Propofol 100 ml @ As Directed STK-MED ONCE IV ; Start 09/19/17 at 10:59; Stop 09/19/17 at 11:00; Status DC Norepinephrine Bitartrate 250 ml @ As Directed STK-MED ONCE IV ; Start at 10:59; Stop 09/19/17 at 11:00; Status DC Furosemide (Lasix) 20 mg 1X ONCE IVP ; Start 09/19/17 at 11:15; Stop at 11:16; Status DC Vecuronium Theodore (Norcuron Bolus) 10 mg STK-MED ONCE IV ; Start 09/19/17 at 11:21; Stop 09/19/17 at 11:22; Status DC Fentanyl Citrate 30 ml @ 0 mls/hr CONT PRN IV PROTOCOL Last administered on 15:08; Start 09/19/17 at 11:30; Stop 09/23/17 at 15:24; Status DC Vecuronium Theodore (Norcuron Bolus) 6 mg 1X ONCE IV Last administered on 09/19 11:42; Start 09/19/17 at 11:30; Stop 09/19/17 at 11:39; Status DC Propofol 10 ml @ 0 mls/hr 1X ONCE IV Last administered on 09/19/17 11:30; Start 09/19/17 at 11:30; Stop 09/19/17 at 11:39; Status DC Midazolam HCl 100 ml @ 0 mls/hr CONT PRN IV SEE I/O RECORD Last administered on 09/27/17 00:40; Start 09/19/17 at 11:30; Stop 09/30/17 at 09:21; Status DC Norepinephrine Bitartrate 250 ml @ 0 mls/hr CONT PRN IV SEE I/O RECORD Last administered on 09/24/17 05:18; Start 09/19/17 at 11:30; Stop 09/30/17 at 09 :21; Status DC Succinylcholine Chloride (Anectine) 100 mg 1X ONCE IV Last administered on 11:42; Start 09/19/17 at 11:30; Stop 09/19/17 at 11:39; Status DC Sodium Bicarbonate 50 meq 1X ONCE IV Last administered on 09/19/17 13:23; Start 09/19/17 at 12:45; Stop 09/19/17 at 12:46; Status DC Sodium Bicarbonate 50 meq 1X ONCE IV Last administered on 09/19/17 13:23; Start 09/19/17 at 12:45; Stop 09/19/17 at 12:46; Status DC Lidocaine/Sodium Bicarbonate (Buffered Lidocaine 1%) 20 ml STK-MED ONCE IJ ; Start 09/19/17 at 13:34; Stop 09/19/17 at 13:35; Status DC Vecuronium Theodore (Norcuron Bolus) 10 mg 1X ONCE IV Last administered on 15:05; Start 09/19/17 at 14:00; Stop 09/19/17 at 14:02; Status DC Lidocaine/Sodium Bicarbonate (Buffered Lidocaine 1%) 3 ml 1X ONCE IJ ; Start 09/19/17 at 14:45; Stop 09/19/17 at 14:46; Status DC Vancomycin HCl 1.25 gm/Dextrose 250 ml @ 166.667 mls/hr Q24H IV Last administered on 09/23/17 17:19; Start 09/20/17 at 15:00; Stop 09/24/17 at 08 :35; Status DC Vancomycin HCl 1 each 1X ONCE MC Last administered on 09/21/17 14:30; Start 09/21/17 at 14:30; Stop 09/21/17 at 14:31; Status DC Azithromycin 500 mg/Sodium Chloride 250 ml @ 250 mls/hr Q24H IV Last administered on 09/23/17 17:19; Start 09/19/17 at 16:30; Stop 09/24/17 at 08 :35; Status DC Norepinephrine Bitartrate (Levophed 8mg/ 250ml Premix Drip) 8 mg STK-MED ONCE IV ; Start 09/19/17 at 11:00; Stop 09/20/17 at 08:44; Status DC Midazolam HCl (Versed) 5 mg STK-MED ONCE .ROUTE ; Start 09/19/17 at 11:00; Stop 09/20/17 at 08:44; Status DC Amino Acids/ Glycerin/ Electrolytes 1,000 ml @ 80 mls/hr [id number] IV Last administered on 09/21/17 01:21; Start 09/20/17 at 10:00; Stop 09/22/17 at 07 :02; Status DC Info 1 each PRN DAILY PRN MC SEE COMMENTS; Start 09/20/17 at 10:00; Stop at 12:14; Status DC Furosemide (Lasix) 20 mg 1X ONCE IVP Last administered on 09/20/17 10:21; Start 09/20/17 at 10:15; Stop 09/20/17 at 10:18; Status DC Info 1 each PRN DAILY PRN MC SEE COMMENTS; Start 09/20/17 at 11:00; Status UNV Vecuronium Theodore (Norcuron Bolus) 10 mg 1X ONCE IV Last administered on 12:03; Start 09/20/17 at 11:15; Stop 09/20/17 at 11:24; Status DC Atropine Sulfate 0.5 mg STK-MED ONCE .ROUTE ; Start 09/20/17 at 11:47; Stop at 11:48; Status DC Epinephrine HCl (EPINEPHrine SYRINGE) 1 mg STK-MED ONCE .ROUTE ; Start at 11:47; Stop 09/20/17 at 11:48; Status DC Atropine Sulfate 0.5 mg STK-MED ONCE .ROUTE ; Start 09/20/17 at 12:00; Stop at 09:11; Status DC Epinephrine HCl (EPINEPHrine SYRINGE) 1 mg STK-MED ONCE .ROUTE ; Start at 12:00; Stop 09/21/17 at 09:11; Status DC Furosemide (Lasix) 20 mg DAILY IVP ; Start 09/21/17 at 11:15; Stop 09/21/17 at 11:20; Status DC Lorazepam (Ativan) 1 mg PRN Q1HR PRN IV ANXIETY / AGITATION Last administered on 09/28/17 17:04; Start 09/21/17 at 11:15; Stop 09/30/17 at 09:21; Status DC Albumin Human 250 ml @ 62.5 mls/hr 1X ONCE IV Last administered on 11:57; Start 09/21/17 at 11:30; Stop 09/21/17 at 15:29; Status DC Albumin Human 250 ml @ 62.5 mls/hr 1X ONCE IV Last administered on 14:29; Start 09/21/17 at 11:30; Stop 09/21/17 at 15:29; Status DC Micafungin Sodium 100 mg/Dextrose 100 ml @ 100 mls/hr Q24H IV Last administered on 11/19/17at 13:17; Start 09/21/17 at 12:00; Stop 09/24/17 at 08 :35; Status DC Vecuronium Theodore (Norcuron Bolus) 4 mg PRN Q4HRS PRN IV AGITATION; Start at 15:00; Stop 09/30/17 at 09:21; Status DC Dexmedetomidine HCl 200 mcg/ Sodium Chloride 50 ml @ 0 mls/hr CONT PRN IV PER PROTOCOL Last administered on 09/21/17 15:54; Start 09/21/17 at 15:30; Stop 09/30/17 at 09:21; Status DC Sodium Chloride 500 ml @ 500 mls/hr 1X PRN PRN IV SEE COMMENTS; Start at 15:30 Atropine Sulfate 0.5 mg PRN Q5MIN PRN IV SEE COMMENTS; Start 09/21/17 at 15:30 Propofol 100 ml @ 0 mls/hr CONT PRN IV PER PROTOCOL Last administered on 14:35; Start 09/21/17 at 16:45; Stop 09/30/17 at 09:21; Status DC Furosemide (Lasix) 20 mg 1X ONCE IVP Last administered on 09/22/17 09:41; Start 09/22/17 at 10:15; Stop 09/22/17 at 10:16; Status DC Chlorhexidine Gluconate (Peridex) 15 ml BID MM Last administered on 09/29/17 08:07; Start 09/22/17 at 21:00; Stop 09/29/17 at 20:22; Status DC Furosemide (Lasix) 20 mg 1X ONCE IVP Last administered on 09/22/17 17:55; Start 09/22/17 at 18:00; Stop 09/22/17 at 18:01; Status DC Furosemide (Lasix) 20 mg DAILY IVP Last administered on 09/23/17 13:16; Start 09/23/17 at 11:30; Stop 09/24/17 at 08:40; Status DC Methylprednisolone Sodium Succinate (SOLU-Medrol 125MG VIAL) 80 mg Q8HRS IV Last administered on 09/30/17 05:47; Start 09/23/17 at 14:00; Stop 09/30/17 at 09:26; Status DC Fentanyl Citrate 55 ml @ 0 mls/hr CONT PRN PRN IV PER PROTOCOL Last administered on 09/28/17 19:13; Start 09/23/17 at 12:15; Stop 09/30/17 at 09 :21; Status DC Dextrose 1,000 ml @ 25 mls/hr Q24H IV Last administered on 09/28/17 12:59; Start 09/23/17 at 11:45; Stop 10/04/17 at 13:14; Status DC Enoxaparin Sodium (Lovenox Per Pharmacy Prophylaxis Dosing) 1 each PRN DAILY PRN MC SEE COMMENTS; Start 09/23/17 at 16:30; Stop 09/24/17 at 08:41; Status DC Enoxaparin Sodium (Lovenox 40mg Syringe) 40 mg Q24H SQ Last administered on 17:32; Start 09/23/17 at 17:00; Stop 10/07/17 at 12:42; Status DC Bisacodyl (Dulcolax Tab) 5 mg PRN DAILY PRN PO CONSTIPATION; Start 09/24/17 at 09:30 Insulin Aspart (NovoLOG) 0-5 UNITS Q6HRS SQ Last administered on 09/29/17 12: 27; Start 09/25/17 at 18:00; Stop 10/01/17 at 02:54; Status DC Dextrose (Dextrose 50%-Water Syringe) 12.5 gm PRN Q15MIN PRN IV SEE COMMENTS; Start 09/25/17 at 12:30; Stop 10/01/17 at 02:54; Status DC Dextrose/Sodium Chloride 1,000 ml @ 75 mls/hr [id number] IV Last administered on 10/02/17 01:23; Start 09/29/17 at 19:00; Stop 10/02/17 at 09:07; Status DC Ondansetron HCl (Zofran) 4 mg PRN Q6HRS PRN IV NAUSEA/VOMITING Last administered on 10/01/17 20:33; Start 09/29/17 at 20:00 Albuterol/ Ipratropium (Duoneb) 3 ml TID NEB Last administered on 10/09/17 07: 41; Start 09/30/17 at 14:00 Methylprednisolone Sodium Succinate (SOLU-Medrol 125MG VIAL) 80 mg Q12HR IV Last administered on 10/01/17 08:56; Start 09/30/17 at 21:00; Stop 10/01/17 at 10:22; Status DC Iron Sucrose 500 mg/Sodium Chloride 275 ml @ 78.571 mls/ hr 1X ONCE IV Last administered on 10/01/17 10:08; Start 10/01/17 at 09:30; Stop 10/01/17 at 12 :59; Status DC Methylprednisolone Sodium Succinate (SOLU-Medrol 40MG VIAL) 40 mg Q12HR IV ; Start 10/01/17 at 21:00; Stop 10/01/17 at 21:00; Status DC Alprazolam (Xanax) 0.25 mg PRN Q8HRS PRN PO ANXIETY / AGITATION Last administered on 10/08/17 19:35; Start 10/01/17 at 10:30 Quetiapine Fumarate (SEROquel) 50 mg HS PO Last administered on 10/08/17 20:26 ; Start 10/01/17 at 21:00 Methylprednisolone Sodium Succinate (SOLU-Medrol 40MG VIAL) 40 mg QHS IV Last administered on 10/01/17 20:32; Start 10/01/17 at 21:00; Stop 10/02/17 at 10 :36; Status DC Saliva Substitute (Biotene Moisturizing Mouth) 2 spray PRN Q15MIN PRN PO DRY MOUTH; Start 10/02/17 at 09:15 Info 1 each PRN DAILY PRN MC SEE COMMENTS Last administered on 10/06/17 12:34 ; Start 10/02/17 at 09:15; Stop 10/07/17 at 11:35; Status DC Amino Acids/ Glycerin/ Electrolytes 1,000 ml @ 100 mls/hr Q10H IV Last administered on 10/02/17 09:57; Start 10/02/17 at 10:00; Stop 10/02/17 at 19 :59; Status DC Methylprednisolone Sodium Succinate (SOLU-Medrol 40MG VIAL) 20 mg QHS IV Last administered on 10/02/17 21:38; Start 10/02/17 at 21:00; Stop 10/03/17 at 12 :46; Status DC Sodium Acetate 40 meq/Potassium Chloride 50 meq/ Potassium Phosphate 13.6 mmol/ Magnesium Sulfate 10 meq/ Calcium Gluconate 10 meq/ Multivitamins 10 ml/Chromium / Copper/Manganese/ Seleni/Zn 1 ml/ Total Parenteral Nutrition/Amino Acids/ Dextrose/ Fat Emulsion Intravenous 1,512 ml @ 63 mls/hr TPN CONT IV Last administered on 10/02/17 21:37; Start 10/02/17 at 22:00; Stop 10/03/17 at 21 :59; Status DC Morphine Sulfate 2 mg PRN Q2HR PRN IV SEVERE PAIN Last administered on 14:28; Start 10/03/17 at 06:00 Lorazepam (Ativan) 1 mg PRN Q4HRS PRN IV ANXIETY / AGITATION Last administered on 10/04/17 01:15; Start 10/03/17 at 06:00 Potassium Phosphate 13.6 mmol/Sodium Chloride 104.5333 ml @ 52.267 m... Q2H IV Last administered on 10/03/17 17:28; Start 10/03/17 at 12:00; Stop at 15:59; Status DC Potassium Acetate 70 meq/Potassium Phosphate 13.6 mmol/Magnesium Sulfate 10 meq / Calcium Gluconate 10 meq/ Multivitamins 10 ml/Chromium/ Copper/Manganese/ Seleni/Zn 1 ml/ Total Parenteral Nutrition/Amino Acids/Dextrose/ Fat Emulsion Intravenous 1,992 ml @ 83 mls/hr TPN CONT IV Last administered on 10/03/17 22:00; Start 10/03/17 at 22:00; Stop 10/04/17 at 21:59; Status DC Vitamin A/Vitamin D (Vitamin A & D Ointment) 1 joe PRN BID PRN TP SKIN PROTECTION Last administered on 10/04/17 01:28; Start 10/03/17 at 14:00 Pantoprazole Sodium (Protonix) 40 mg DAILYAC PO Last administered on 10/07/17 08:17; Start 10/05/17 at 07:30; Stop 10/07/17 at 15:24; Status DC Simethicone (Gas-X) 80 mg PRN AFTMEALHC PRN PO GAS / BLOATING Last administered on 10/04/17 21:09; Start 10/04/17 at 09:00 Polyethylene Glycol (miraLAX PACKET) 17 gm PRN DAILY PRN PO CONSTIPATION; Start 10/04/17 at 09:00 Potassium Acetate 70 meq/Potassium Phosphate 13.6 mmol/Magnesium Sulfate 10 meq / Calcium Gluconate 10 meq/ Multivitamins 10 ml/Chromium/ Copper/Manganese/ Seleni/Zn 1 ml/ Total Parenteral Nutrition/Amino Acids/Dextrose/ Fat Emulsion Intravenous 1,992 ml @ 83 mls/hr TPN CONT IV Last administered on 10/05/17 00:02; Start 10/04/17 at 22:00; Stop 10/05/17 at 21:59; Status DC Iohexol (Omnipaque 300 Mg/ml) 75 ml 1X ONCE IV Last administered on 16:25; Start 10/04/17 at 15:30; Stop 10/04/17 at 15:31; Status DC Info (Do NOT chart on this entry -- for MONITORING) 1 each PRN DAILY PRN MC SEE COMMENTS; Start 10/04/17 at 15:45; Stop 10/06/17 at 15:44; Status DC Loperamide HCl (Imodium) 2 mg PRN Q1HR PRN PEG DIARRHEA Last administered on 15:49; Start 10/05/17 at 07:00 Furosemide (Lasix) 20 mg DAILY PO Last administered on 10/07/17 08:17; Start 10/05/17 at 09:00 Potassium Acetate 70 meq/Potassium Phosphate 13.6 mmol/Magnesium Sulfate 10 meq / Calcium Gluconate 10 meq/ Multivitamins 10 ml/Chromium/ Copper/Manganese/ Seleni/Zn 1 ml/ Total Parenteral Nutrition/Amino Acids/Dextrose/ Fat Emulsion Intravenous 1,600 ml @ 66.667 mls/ hr TPN CONT IV Last administered on 22:42; Start 10/05/17 at 22:00; Stop 10/06/17 at 21:59; Status DC Dicyclomine HCl (Bentyl) 10 mg PRN Q6HRS PRN PO MILD PAIN Last administered on 10/06/17 23:10; Start 10/05/17 at 17:15 Tramadol HCl (Ultram) 50 mg PRN Q6HRS PRN PO PAIN Last administered on 03:25; Start 10/06/17 at 10:45 Potassium Acetate 70 meq/Potassium Phosphate 13.6 mmol/Magnesium Sulfate 10 meq / Calcium Gluconate 10 meq/ Multivitamins 10 ml/Chromium/ Copper/Manganese/ Seleni/Zn 1 ml/ Sodium Acetate 30 meq/Total Parenteral Nutrition/Amino Acids/ Dextrose/ Fat Emulsion Intravenous 1,600 ml @ 66.667 mls/ hr TPN CONT IV ; Start 10/06/17 at 22:00; Stop 10/07/17 at 21:59; Status DC Pantoprazole Sodium (Protonix) 40 mg BIDAC PO ; Start 10/07/17 at 16:30 Epinephrine HCl (Adrenalin) 1 mg STK-MED ONCE .ROUTE ; Start 10/08/17 at 12:57; Stop 10/08/17 at 12:58; Status DC Propofol (Diprivan) 400 mg STK-MED ONCE IV ; Start 10/08/17 at 12:00; Stop 10/09 at 08:46; Status DC Lidocaine HCl (Lidocaine Pf 2% Vial) 5 ml STK-MED ONCE .ROUTE ; Start 10/08/17 at 12:00; Stop 10/09/17 at 08:46; Status DC Epinephrine HCl (EPINEPHrine SYRINGE) 1 mg STK-MED ONCE .ROUTE ; Start 10/08/17 at 12:00; Stop 10/09/17 at 08:46; Status DC Active Scripts Active Reported Gabapentin 300 Mg Capsule 300 Mg PO TID Cymbalta (Duloxetine Hcl) 60 Mg Capsule. 1 Cap PO BID Hydrochlorothiazide Tablet (Hydrochlorothiazide) 25 Mg Tablet 1 Tab PO DAILY Xanax (Alprazolam) 1 Mg Tablet 1 Tab PO TID PRN Vitals/I & O Vital Sign - Last 24 Hours 10/08/17 10/08/17 10/08/17 10/08/17 10:49 12:23 12:35 13:15 Temp 98.1 99.8 98.1 98.1 99.8 98.1 Pulse 101 87 91 Resp 18 18 18 B/P (MAP) 127/83 (98) 100/58 Pulse Ox 100 100 98 O2 Delivery Room Air Room Air Nasal Cannula O2 Flow Rate 2.0 3 10/08/17 10/08/17 10/08/17 10/08/17 13:30 13:45 14:11 14:28 Temp 98.6 98.6 Pulse 85 77 92 Resp 20 20 20 B/P (MAP) 117/76 117/59 118/70 (86) Pulse Ox 97 98 97 97 O2 Delivery Room Air Room Air Room Air Room Air 10/08/17 10/08/17 10/08/17 10/08/17 15:21 15:22 18:33 19:41 Resp 16 Pulse Ox 97 95 O2 Delivery Room Air Room Air Room Air Room Air 10/08/17 10/08/17 10/08/17 10/08/17 19:47 20:00 23:10 23:44 Temp 97.5 97.4 97.5 97.4 Pulse 109 79 Resp 20 20 B/P (MAP) 121/71 (88) 97/62 (74) Pulse Ox 95 98 O2 Delivery Room Air Room Air Room Air Room Air 10/09/17 10/09/17 10/09/17 10/09/17 00:54 03:25 03:51 04:57 Temp 97.4 97.4 Pulse 69 Resp 16 B/P (MAP) 98/59 (72) Pulse Ox 98 98 99 99 O2 Delivery Room Air Room Air Room Air Room Air 10/09/17 10/09/17 06:53 07:43 Temp 98.6 98.6 Pulse 88 Resp 17 B/P (MAP) 108/64 (79) Pulse Ox 98 97 O2 Delivery Room Air Room Air Intake and Output 10/08/17 10/08/17 10/09/17 15:00 23:00 07:00 Intake Total 200 ml 720 ml Balance 200 ml 720 ml ELLA ORTEGA MD Oct 09, 2017 09:08
[2017-10-09] MEDS: PANTOPRAZOLE 40 MG TABLET.DR. PO SCH ×2 (09:10→16:30)
[2017-10-09] MEDS: FUROSEMIDE 20 MG TABLET PO SCH (09:10)
[2017-10-09] MEDS: oxyCODONE/APAP 5/325 1 TAB TABLET PO PRN (09:11)
--- NOTE | 2017-10-09 10:06 | PDOC ---
PROGRESS NOTES Subjective Subjective No new complaints. Objective Objective Vital Signs Date Time Temp Pulse Resp B/P (MAP) Pulse Ox O2 Delivery O2 Flow Rate FiO2 10/09/17 09:11 Room Air 10/09/17 07:43 97 10/09/17 06:53 98.6 88 17 108/64 (79) 98.6 10/08/17 13:15 3 Intake and Output 10/09/17 07:00 Intake Total 920 ml Balance 920 ml Intake Oral 920 ml # Voids 4 Physical Exam Physical Exam She continues with quadriparesis and generalized muscle weakness and edema of dependent parts of her body and she did not participate in therapy for the last few days dealing with her anemia. Assessment Assessment Problems Medical Problems: (1) Dyspnea Status: Acute (2) Hypoalbuminemia Status: Acute (3) Metabolic acidosis Status: Acute (4) Pneumonia Status: Acute Plan Plan of Care To rehab unit when medically stable. Comment Review of Relevant I have reviewed the following items tha (where applicable) has been applied. Labs Laboratory Tests Test 10/07/17 15:55 10/08/17 05:23 Hemoglobin 8.5 g/dL (12.0-15.5) 8.2 g/dL (12.0-15.5) Hematocrit 26.1 % (36.0-47.0) 25.2 % (36.0-47.0) Mean Corpuscular Hemoglobin Concent 33 g/dL (31-37) 33 g/dL (31-37) White Blood Count 6.2 x10^3/uL (4.0-11.0) Red Blood Count 2.77 x10^6/uL (3.50-5.40) Mean Corpuscular Volume 91 fL (79-100) Mean Corpuscular Hemoglobin 30 pg (25-35) Red Cell Distribution Width 22.1 % (11.5-14.5) Platelet Count 224 x10^3/uL (140-400) Neutrophils (%) (Auto) 77 % (31-73) Lymphocytes (%) (Auto) 8 % (24-48) Monocytes (%) (Auto) 5 % (0-9) Eosinophils (%) (Auto) 9 % (0-3) Basophils (%) (Auto) 1 % (0-3) Neutrophils # (Auto) 4.7 x10^3uL (1.8-7.7) Lymphocytes # (Auto) 0.5 x10^3/uL (1.0-4.8) Monocytes # (Auto) 0.3 x10^3/uL (0.0-1.1) Eosinophils # (Auto) 0.5 x10^3/uL (0.0-0.7) Basophils # (Auto) 0.1 x10^3/uL (0.0-0.2) Sodium Level 142 mmol/L (136-145) Potassium Level 3.7 mmol/L (3.5-5.1) Chloride Level 112 mmol/L (98-107) Carbon Dioxide Level 21 mmol/L (21-32) Anion Gap 9 (6-14) Blood Urea Nitrogen 17 mg/dL (7-20) Creatinine 0.7 mg/dL (0.6-1.0) Estimated GFR (Cockcroft-Gault) 85.4 BUN/Creatinine Ratio 24 (6-20) Glucose Level 84 mg/dL (70-99) Calcium Level 8.1 mg/dL (8.5-10.1) Total Bilirubin 0.3 mg/dL (0.2-1.0) Aspartate Amino Transf (AST/SGOT) 22 U/L (15-37) Alanine Aminotransferase (ALT/SGPT) 47 U/L (14-59) Alkaline Phosphatase 61 U/L (46-116) Total Protein 4.8 g/dL (6.4-8.2) Albumin 1.9 g/dL (3.4-5.0) Albumin/Globulin Ratio 0.7 (1.0-1.7) Microbiology 09/17/17 Blood Culture - Final, Complete NO GROWTH AFTER 5 DAYS 09/20/17 AFB Specimen Processing Tissue - Final, Resulted 09/20/17 Acid Fast Bacilli Culture, Resulted Pending 09/20/17 Gram Stain - Final, Resulted 09/20/17 Fungal Culture - Preliminary, Resulted 09/20/17 Fungal Culture Result 1 - Preliminary, Resulted Medications Current Medications Sodium Chloride 1,000 ml @ 125 mls/hr 1X ONCE IV Last administered on t 15:54; Start 09/17/17 at 15:15; Stop 09/17/17 at 23:14; Status DC Ondansetron HCl (Zofran) 4 mg PRN Q8HRS PRN IV NAUSEA/VOMITING; Start at 16:30; Stop 09/18/17 at 16:29; Status DC Ceftriaxone Sodium 50 ml @ 0 mls/hr 1X ONCE IV Last administered on 17:33; Start 09/17/17 at 16:45; Stop 09/17/17 at 16:46; Status DC Azithromycin 250 ml @ 250 mls/hr 1X ONCE IV Last administered on 09/17/17 22:38; Start 09/17/17 at 16:30; Stop 09/17/17 at 17:29; Status DC Albuterol/ Ipratropium (Duoneb) 3 ml 1X ONCE NEB Last administered on 17:00; Start 09/17/17 at 16:45; Stop 09/17/17 at 16:46; Status DC Potassium Chloride (Klor-Con) 40 meq 1X ONCE PO Last administered on 16:57; Start 09/17/17 at 16:45; Stop 09/17/17 at 16:46; Status DC Azithromycin (Zithromax) 250 mg DAILY PO Last administered on 09/18/17 10:25 ; Start 09/18/17 at 09:00; Stop 09/19/17 at 10:30; Status DC Ceftriaxone Sodium 1 gm/ Dextrose 50 ml @ 100 mls/hr Q24H IV ; Start 09/17/17 at 17:15; Status UNV Albuterol/ Ipratropium (Duoneb) 3 ml Q4HRS NEB Last administered on 09/30/17 08:11; Start 09/17/17 at 20:00; Stop 09/30/17 at 09:21; Status DC Ceftriaxone Sodium (Rocephin) 1 gm Q24H IVP Last administered on 09/18/17 17: 55; Start 09/18/17 at 16:00; Stop 09/19/17 at 10:30; Status DC Guaifenesin (Robitussin Dm) 10 ml PRN Q6HRS PRN PO COUGH; Start 09/17/17 at 17 :15; Stop 09/30/17 at 09:21; Status DC Sodium Chloride 1,000 ml @ 125 mls/hr 1X ONCE IV Last administered on 17:45; Start 09/17/17 at 17:15; Stop 09/17/17 at 22:12; Status DC Info (Do NOT chart on this placeholder) 1 each 1X ONCE MC ; Start 09/17/17 at 19:00; Stop 09/17/17 at 19:01; Status UNV Influenza Virus Vaccine Quadrival (Fluarix Quad 1086-0814 Syringe) 0.5 ml ONCE ONCE VAX IM Last administered on 09/17/17 21:00; Start 09/17/17 at 21:00; Stop 09/17/17 at 21:01; Status DC Sodium Chloride 1,000 ml @ 130 mls/hr 1X ONCE IV Last administered on 22:31; Start 09/17/17 at 22:30; Stop 09/18/17 at 06:11; Status DC Sodium Bicarbonate 50 meq 1X ONCE IV Last administered on 09/17/17 22:31; Start 09/17/17 at 22:30; Stop 09/17/17 at 22:31; Status DC Alprazolam (Xanax) 1 mg PRN TID PRN PO ANXIETY Last administered on 09/19/17 02:19; Start 09/17/17 at 22:30; Stop 09/30/17 at 09:21; Status DC Furosemide (Lasix) 20 mg 1X ONCE IVP Last administered on 09/18/17 06:24; Start 09/18/17 at 06:30; Stop 09/18/17 at 06:31; Status DC Potassium Chloride (Klor-Con) 40 meq 1X ONCE PO Last administered on 10:25; Start 09/18/17 at 09:00; Stop 09/18/17 at 09:01; Status DC Iron Sucrose 500 mg/Sodium Chloride 275 ml @ 78.571 mls/ hr 1X ONCE IV Last administered on 09/18/17 10:24; Start 09/18/17 at 09:00; Stop 09/18/17 at 12 :29; Status DC Furosemide (Lasix) 20 mg 1X ONCE IVP Last administered on 09/18/17 10:30; Start 09/18/17 at 10:00; Stop 09/18/17 at 10:22; Status DC Pantoprazole Sodium (Protonix) 40 mg DAILYAC PO Last administered on 10:47; Start 09/18/17 at 11:00; Stop 09/19/17 at 13:41; Status DC Furosemide (Lasix) 20 mg 1X ONCE IVP Last administered on 09/18/17 10:47; Start 09/18/17 at 10:45; Stop 09/18/17 at 10:46; Status DC Potassium Chloride (Klor-Con) 40 meq 1X ONCE PO ; Start 09/18/17 at 11:45; Stop 09/18/17 at 11:46; Status DC Oxycodone/ Acetaminophen (Percocet 5/325) 1 tab PRN Q6HRS PRN PO PAIN Last administered on 10/09/17 09:11; Start 09/18/17 at 12:15 Lorazepam (Ativan) 1 mg PRN Q4HRS PRN IV ANXIETY / AGITATION Last administered on 09/18/17 12:25; Start 09/18/17 at 12:15; Stop 09/18/17 at 13:34; Status DC Fentanyl Citrate (Fentanyl 2ml Vial) 50 mcg PRN Q2HR PRN IV PAIN Last administered on 09/19/17 04:09; Start 09/18/17 at 12:15; Stop 09/30/17 at 09 :21; Status DC Lorazepam (Ativan) 2 mg PRN Q4HRS PRN IV ANXIETY / AGITATION Last administered on 09/29/17 05:17; Start 09/18/17 at 13:30; Stop 09/30/17 at 09:21; Status DC Quetiapine Fumarate (SEROquel) 25 mg HS PO Last administered on 09/18/17 21: 03; Start 09/18/17 at 21:00; Stop 09/19/17 at 10:35; Status DC Haloperidol Lactate (Haldol) 5 mg PRN Q12HRS PRN IVP AGITATION; Start at 13:45 Lorazepam (Ativan) 1 mg PRN Q4HRS PRN IV ANXIETY / AGITATION; Start 09/19/17 at 10:15; Stop 09/19/17 at 10:18; Status DC Lorazepam (Ativan) 4 mg 1X ONCE IV ; Start 09/19/17 at 10:30; Stop 09/19/17 at 10:31; Status DC Vancomycin HCl (Vanco Per Pharmacy) 1 each PRN DAILY PRN MC SEE COMMENTS Last administered on 09/23/17 12:36; Start 09/19/17 at 10:30; Stop 09/24/17 at 08 :36; Status DC Piperacillin Sod/ Tazobactam Sod (Zosyn Per Pharmacy) 1 each PRN DAILY PRN MC SEE COMMENTS; Start 09/19/17 at 10:30; Stop 09/24/17 at 08:41; Status DC Vancomycin HCl 2 gm/Dextrose 500 ml @ 250 mls/hr 1X ONCE IV Last administered on 09/19/17 14:53; Start 09/19/17 at 11:00; Stop 09/19/17 at 12 :59; Status DC Piperacillin Sod/ Tazobactam Sod (Zosyn) 3.375 gm Q6HRS IVP Last administered on 10/02/17 17:13; Start 09/19/17 at 11:00; Stop 10/02/17 at 19:14; Status DC Budesonide (Pulmicort) 0.5 mg RTBID NEB Last administered on 10/09/17 07:41; Start 09/19/17 at 20:00 Budesonide (Pulmicort) 0.5 mg 1X ONCE NEB Last administered on 09/19/17 12: 50; Start 09/19/17 at 10:45; Stop 09/19/17 at 10:46; Status DC Pantoprazole Sodium (PROTONIX VIAL for IV PUSH) 40 mg DAILYAC IVP Last administered on 10/03/17 08:23; Start 09/19/17 at 11:30; Stop 10/04/17 at 08 :51; Status DC Furosemide (Lasix) 40 mg DAILY IVP ; Start 09/19/17 at 11:00; Stop 09/20/17 at 13:20; Status DC Methylprednisolone Sodium Succinate (SOLU-Medrol 125MG VIAL) 125 mg 1X ONCE IV Last administered on 09/19/17 13:23; Start 09/19/17 at 10:45; Stop at 10:46; Status DC Prednisone (Prednisone) 40 mg DAILY PO ; Start 09/19/17 at 11:00; Stop at 09:02; Status DC Methylprednisolone Sodium Succinate (SOLU-Medrol 125MG VIAL) 125 mg Q8HRS IV Last administered on 09/23/17t 05:43; Start 09/19/17 at 14:00; Stop 09/23/17 at 10:40; Status DC Midazolam HCl 100 ml @ 0 mls/hr CONT PRN IV SEE I/O RECORD; Start 09/19/17 at 11:00; Stop 09/19/17 at 12:51; Status DC Midazolam HCl (Versed) 5 mg 1X ONCE IV ; Start 09/19/17 at 11:00; Stop at 11:01; Status DC Fentanyl Citrate (Fentanyl 2ml Vial) 50 mcg 1X ONCE IV ; Start 09/19/17 at 11: 00; Stop 09/19/17 at 11:01; Status DC Midazolam HCl 100 ml @ As Directed STK-MED ONCE IV ; Start 09/19/17 at 10:55; Stop 09/19/17 at 10:56; Status DC Midazolam HCl (Versed) 5 mg STK-MED ONCE .ROUTE ; Start 09/19/17 at 10:55; Stop 09/19/17 at 10:56; Status DC Propofol 100 ml @ As Directed STK-MED ONCE IV ; Start 09/19/17 at 10:59; Stop 09/19/17 at 11:00; Status DC Norepinephrine Bitartrate 250 ml @ As Directed STK-MED ONCE IV ; Start at 10:59; Stop 09/19/17 at 11:00; Status DC Furosemide (Lasix) 20 mg 1X ONCE IVP ; Start 09/19/17 at 11:15; Stop at 11:16; Status DC Vecuronium [place] (Norcuron Bolus) 10 mg STK-MED ONCE IV ; Start 09/19/17 at 11:21; Stop 09/19/17 at 11:22; Status DC Fentanyl Citrate 30 ml @ 0 mls/hr CONT PRN IV PROTOCOL Last administered on 15:08; Start 09/19/17 at 11:30; Stop 09/23/17 at 15:24; Status DC Vecuronium [place] (Norcuron Bolus) 6 mg 1X ONCE IV Last administered on 09/19 11:42; Start 09/19/17 at 11:30; Stop 09/19/17 at 11:39; Status DC Propofol 10 ml @ 0 mls/hr 1X ONCE IV Last administered on 09/19/17 11:30; Start 09/19/17 at 11:30; Stop 09/19/17 at 11:39; Status DC Midazolam HCl 100 ml @ 0 mls/hr CONT PRN IV SEE I/O RECORD Last administered on 09/27/17 00:40; Start 09/19/17 at 11:30; Stop 09/30/17 at 09:21; Status DC Norepinephrine Bitartrate 250 ml @ 0 mls/hr CONT PRN IV SEE I/O RECORD Last administered on 09/24/17 05:18; Start 09/19/17 at 11:30; Stop 09/30/17 at 09 :21; Status DC Succinylcholine Chloride (Anectine) 100 mg 1X ONCE IV Last administered on 11:42; Start 09/19/17 at 11:30; Stop 09/19/17 at 11:39; Status DC Sodium Bicarbonate 50 meq 1X ONCE IV Last administered on 09/19/17 13:23; Start 09/19/17 at 12:45; Stop 09/19/17 at 12:46; Status DC Sodium Bicarbonate 50 meq 1X ONCE IV Last administered on 09/19/17 13:23; Start 09/19/17 at 12:45; Stop 09/19/17 at 12:46; Status DC Lidocaine/Sodium Bicarbonate (Buffered Lidocaine 1%) 20 ml STK-MED ONCE IJ ; Start 09/19/17 at 13:34; Stop 09/19/17 at 13:35; Status DC Vecuronium [place] (Norcuron Bolus) 10 mg 1X ONCE IV Last administered on 15:05; Start 09/19/17 at 14:00; Stop 09/19/17 at 14:02; Status DC Lidocaine/Sodium Bicarbonate (Buffered Lidocaine 1%) 3 ml 1X ONCE IJ ; Start 09/19/17 at 14:45; Stop 09/19/17 at 14:46; Status DC Vancomycin HCl 1.25 gm/Dextrose 250 ml @ 166.667 mls/hr Q24H IV Last administered on 09/23/17 17:19; Start 09/20/17 at 15:00; Stop 09/24/17 at 08 :35; Status DC Vancomycin HCl 1 each 1X ONCE MC Last administered on 09/21/17 14:30; Start 09/21/17 at 14:30; Stop 09/21/17 at 14:31; Status DC Azithromycin 500 mg/Sodium Chloride 250 ml @ 250 mls/hr Q24H IV Last administered on 09/23/17 17:19; Start 09/19/17 at 16:30; Stop 09/24/17 at 08 :35; Status DC Norepinephrine Bitartrate (Levophed 8mg/ 250ml Premix Drip) 8 mg STK-MED ONCE IV ; Start 09/19/17 at 11:00; Stop 09/20/17 at 08:44; Status DC Midazolam HCl (Versed) 5 mg STK-MED ONCE .ROUTE ; Start 09/19/17 at 11:00; Stop 09/20/17 at 08:44; Status DC Amino Acids/ Glycerin/ Electrolytes 1,000 ml @ 80 mls/hr [id number] IV Last administered on 09/21/17 01:21; Start 09/20/17 at 10:00; Stop 09/22/17 at 07 :02; Status DC Info 1 each PRN DAILY PRN MC SEE COMMENTS; Start 09/20/17 at 10:00; Stop at 12:14; Status DC Furosemide (Lasix) 20 mg 1X ONCE IVP Last administered on 09/20/17 10:21; Start 09/20/17 at 10:15; Stop 09/20/17 at 10:18; Status DC Info 1 each PRN DAILY PRN MC SEE COMMENTS; Start 09/20/17 at 11:00; Status UNV Vecuronium [place] (Norcuron Bolus) 10 mg 1X ONCE IV Last administered on 12:03; Start 09/20/17 at 11:15; Stop 09/20/17 at 11:24; Status DC Atropine Sulfate 0.5 mg STK-MED ONCE .ROUTE ; Start 09/20/17 at 11:47; Stop at 11:48; Status DC Epinephrine HCl (EPINEPHrine SYRINGE) 1 mg STK-MED ONCE .ROUTE ; Start at 11:47; Stop 09/20/17 at 11:48; Status DC Atropine Sulfate 0.5 mg STK-MED ONCE .ROUTE ; Start 09/20/17 at 12:00; Stop at 09:11; Status DC Epinephrine HCl (EPINEPHrine SYRINGE) 1 mg STK-MED ONCE .ROUTE ; Start at 12:00; Stop 09/21/17 at 09:11; Status DC Furosemide (Lasix) 20 mg DAILY IVP ; Start 09/21/17 at 11:15; Stop 09/21/17 at 11:20; Status DC Lorazepam (Ativan) 1 mg PRN Q1HR PRN IV ANXIETY / AGITATION Last administered on 09/28/17 17:04; Start 09/21/17 at 11:15; Stop 09/30/17 at 09:21; Status DC Albumin Human 250 ml @ 62.5 mls/hr 1X ONCE IV Last administered on 11:57; Start 09/21/17 at 11:30; Stop 09/21/17 at 15:29; Status DC Albumin Human 250 ml @ 62.5 mls/hr 1X ONCE IV Last administered on 14:29; Start 09/21/17 at 11:30; Stop 09/21/17 at 15:29; Status DC Micafungin Sodium 100 mg/Dextrose 100 ml @ 100 mls/hr Q24H IV Last administered on 09/23/17 13:17; Start 09/21/17 at 12:00; Stop 09/24/17 at 08 :35; Status DC Vecuronium [place] (Norcuron Bolus) 4 mg PRN Q4HRS PRN IV AGITATION; Start at 15:00; Stop 09/30/17 at 09:21; Status DC Dexmedetomidine HCl 200 mcg/ Sodium Chloride 50 ml @ 0 mls/hr CONT PRN IV PER PROTOCOL Last administered on 09/21/17 15:54; Start 09/21/17 at 15:30; Stop 09/30/17 at 09:21; Status DC Sodium Chloride 500 ml @ 500 mls/hr 1X PRN PRN IV SEE COMMENTS; Start at 15:30 Atropine Sulfate 0.5 mg PRN Q5MIN PRN IV SEE COMMENTS; Start 09/21/17 at 15:30 Propofol 100 ml @ 0 mls/hr CONT PRN IV PER PROTOCOL Last administered on 14:35; Start 09/21/17 at 16:45; Stop 09/30/17 at 09:21; Status DC Furosemide (Lasix) 20 mg 1X ONCE IVP Last administered on 09/22/17 09:41; Start 09/22/17 at 10:15; Stop 09/22/17 at 10:16; Status DC Chlorhexidine Gluconate (Peridex) 15 ml BID MM Last administered on 09/29/17 08:07; Start 09/22/17 at 21:00; Stop 09/29/17 at 20:22; Status DC Furosemide (Lasix) 20 mg 1X ONCE IVP Last administered on 09/22/17 17:55; Start 09/22/17 at 18:00; Stop 09/22/17 at 18:01; Status DC Furosemide (Lasix) 20 mg DAILY IVP Last administered on 09/23/17 13:16; Start 09/23/17 at 11:30; Stop 09/24/17 at 08:40; Status DC Methylprednisolone Sodium Succinate (SOLU-Medrol 125MG VIAL) 80 mg Q8HRS IV Last administered on 09/30/17 05:47; Start 09/23/17 at 14:00; Stop 09/30/17 at 09:26; Status DC Fentanyl Citrate 55 ml @ 0 mls/hr CONT PRN PRN IV PER PROTOCOL Last administered on 09/28/17 19:13; Start 09/23/17 at 12:15; Stop 09/30/17 at 09 :21; Status DC Dextrose 1,000 ml @ 25 mls/hr Q24H IV Last administered on 09/28/17 12:59; Start 09/23/17 at 11:45; Stop 10/04/17 at 13:14; Status DC Enoxaparin Sodium (Lovenox Per Pharmacy Prophylaxis Dosing) 1 each PRN DAILY PRN MC SEE COMMENTS; Start 09/23/17 at 16:30; Stop 09/24/17 at 08:41; Status DC Enoxaparin Sodium (Lovenox 40mg Syringe) 40 mg Q24H SQ Last administered on 17:32; Start 09/23/17 at 17:00; Stop 10/07/17 at 12:42; Status DC Bisacodyl (Dulcolax Tab) 5 mg PRN DAILY PRN PO CONSTIPATION; Start 09/24/17 at 09:30 Insulin Aspart (NovoLOG) 0-5 UNITS Q6HRS SQ Last administered on 09/29/17 12: 27; Start 09/25/17 at 18:00; Stop 10/01/17 at 02:54; Status DC Dextrose (Dextrose 50%-Water Syringe) 12.5 gm PRN Q15MIN PRN IV SEE COMMENTS; Start 09/25/17 at 12:30; Stop 10/01/17 at 02:54; Status DC Dextrose/Sodium Chloride 1,000 ml @ 75 mls/hr [id number] IV Last administered on 10/02/17 01:23; Start 09/29/17 at 19:00; Stop 10/02/17 at 09:07; Status DC Ondansetron HCl (Zofran) 4 mg PRN Q6HRS PRN IV NAUSEA/VOMITING Last administered on 10/01/17 20:33; Start 09/29/17 at 20:00 Albuterol/ Ipratropium (Duoneb) 3 ml TID NEB Last administered on 10/09/17 07: 41; Start 09/30/17 at 14:00 Methylprednisolone Sodium Succinate (SOLU-Medrol 125MG VIAL) 80 mg Q12HR IV Last administered on 10/01/17 08:56; Start 09/30/17 at 21:00; Stop 10/01/17 at 10:22; Status DC Iron Sucrose 500 mg/Sodium Chloride 275 ml @ 78.571 mls/ hr 1X ONCE IV Last administered on 10/01/17 10:08; Start 10/01/17 at 09:30; Stop 10/01/17 at 12 :59; Status DC Methylprednisolone Sodium Succinate (SOLU-Medrol 40MG VIAL) 40 mg Q12HR IV ; Start 10/01/17 at 21:00; Stop 10/01/17 at 21:00; Status DC Alprazolam (Xanax) 0.25 mg PRN Q8HRS PRN PO ANXIETY / AGITATION Last administered on 10/08/17 19:35; Start 10/01/17 at 10:30 Quetiapine Fumarate (SEROquel) 50 mg HS PO Last administered on 10/08/17 20:26 ; Start 10/01/17 at 21:00 Methylprednisolone Sodium Succinate (SOLU-Medrol 40MG VIAL) 40 mg QHS IV Last administered on 10/01/17 20:32; Start 10/01/17 at 21:00; Stop 10/02/17 at 10 :36; Status DC Saliva Substitute (Biotene Moisturizing Mouth) 2 spray PRN Q15MIN PRN PO DRY MOUTH; Start 10/02/17 at 09:15 Info 1 each PRN DAILY PRN MC SEE COMMENTS Last administered on 10/06/17 12:34 ; Start 10/02/17 at 09:15; Stop 10/07/17 at 11:35; Status DC Amino Acids/ Glycerin/ Electrolytes 1,000 ml @ 100 mls/hr Q10H IV Last administered on 10/02/17 09:57; Start 10/02/17 at 10:00; Stop 10/02/17 at 19 :59; Status DC Methylprednisolone Sodium Succinate (SOLU-Medrol 40MG VIAL) 20 mg QHS IV Last administered on 10/02/17 21:38; Start 10/02/17 at 21:00; Stop 10/03/17 at 12 :46; Status DC Sodium Acetate 40 meq/Potassium Chloride 50 meq/ Potassium Phosphate 13.6 mmol/ Magnesium Sulfate 10 meq/ Calcium Gluconate 10 meq/ Multivitamins 10 ml/Chromium / Copper/Manganese/ Seleni/Zn 1 ml/ Total Parenteral Nutrition/Amino Acids/ Dextrose/ Fat Emulsion Intravenous 1,512 ml @ 63 mls/hr TPN CONT IV Last administered on 10/02/17 21:37; Start 10/02/17 at 22:00; Stop 10/03/17 at 21 :59; Status DC Morphine Sulfate 2 mg PRN Q2HR PRN IV SEVERE PAIN Last administered on 14:28; Start 10/03/17 at 06:00 Lorazepam (Ativan) 1 mg PRN Q4HRS PRN IV ANXIETY / AGITATION Last administered on 10/04/17 01:15; Start 10/03/17 at 06:00 Potassium Phosphate 13.6 mmol/Sodium Chloride 104.5333 ml @ 52.267 m... Q2H IV Last administered on 10/03/17 17:28; Start 10/03/17 at 12:00; Stop at 15:59; Status DC Potassium Acetate 70 meq/Potassium Phosphate 13.6 mmol/Magnesium Sulfate 10 meq / Calcium Gluconate 10 meq/ Multivitamins 10 ml/Chromium/ Copper/Manganese/ Seleni/Zn 1 ml/ Total Parenteral Nutrition/Amino Acids/Dextrose/ Fat Emulsion Intravenous 1,992 ml @ 83 mls/hr TPN CONT IV Last administered on 10/03/17 22:00; Start 10/03/17 at 22:00; Stop 10/04/17 at 21:59; Status DC Vitamin A/Vitamin D (Vitamin A & D Ointment) 1 joe PRN BID PRN TP SKIN PROTECTION Last administered on 10/04/17 01:28; Start 10/03/17 at 14:00 Pantoprazole Sodium (Protonix) 40 mg DAILYAC PO Last administered on 10/07/17 08:17; Start 10/05/17 at 07:30; Stop 10/07/17 at 15:24; Status DC Simethicone (Gas-X) 80 mg PRN AFTMEALHC PRN PO GAS / BLOATING Last administered on 10/04/17 21:09; Start 10/04/17 at 09:00 Polyethylene Glycol (miraLAX PACKET) 17 gm PRN DAILY PRN PO CONSTIPATION; Start 10/04/17 at 09:00 Potassium Acetate 70 meq/Potassium Phosphate 13.6 mmol/Magnesium Sulfate 10 meq / Calcium Gluconate 10 meq/ Multivitamins 10 ml/Chromium/ Copper/Manganese/ Seleni/Zn 1 ml/ Total Parenteral Nutrition/Amino Acids/Dextrose/ Fat Emulsion Intravenous 1,992 ml @ 83 mls/hr TPN CONT IV Last administered on 10/05/17 00:02; Start 10/04/17 at 22:00; Stop 10/05/17 at 21:59; Status DC Iohexol (Omnipaque 300 Mg/ml) 75 ml 1X ONCE IV Last administered on 16:25; Start 10/04/17 at 15:30; Stop 10/04/17 at 15:31; Status DC Info (Do NOT chart on this entry -- for MONITORING) 1 each PRN DAILY PRN MC SEE COMMENTS; Start 10/04/17 at 15:45; Stop 10/06/17 at 15:44; Status DC Loperamide HCl (Imodium) 2 mg PRN Q1HR PRN PEG DIARRHEA Last administered on 15:49; Start 10/05/17 at 07:00 Furosemide (Lasix) 20 mg DAILY PO Last administered on 10/09/17 09:10; Start 10/05/17 at 09:00 Potassium Acetate 70 meq/Potassium Phosphate 13.6 mmol/Magnesium Sulfate 10 meq / Calcium Gluconate 10 meq/ Multivitamins 10 ml/Chromium/ Copper/Manganese/ Seleni/Zn 1 ml/ Total Parenteral Nutrition/Amino Acids/Dextrose/ Fat Emulsion Intravenous 1,600 ml @ 66.667 mls/ hr TPN CONT IV Last administered on 22:42; Start 10/05/17 at 22:00; Stop 10/06/17 at 21:59; Status DC Dicyclomine HCl (Bentyl) 10 mg PRN Q6HRS PRN PO MILD PAIN Last administered on 10/06/17 23:10; Start 10/05/17 at 17:15 Tramadol HCl (Ultram) 50 mg PRN Q6HRS PRN PO PAIN Last administered on 03:25; Start 10/06/17 at 10:45 Potassium Acetate 70 meq/Potassium Phosphate 13.6 mmol/Magnesium Sulfate 10 meq / Calcium Gluconate 10 meq/ Multivitamins 10 ml/Chromium/ Copper/Manganese/ Seleni/Zn 1 ml/ Sodium Acetate 30 meq/Total Parenteral Nutrition/Amino Acids/ Dextrose/ Fat Emulsion Intravenous 1,600 ml @ 66.667 mls/ hr TPN CONT IV ; Start 10/06/17 at 22:00; Stop 10/07/17 at 21:59; Status DC Pantoprazole Sodium (Protonix) 40 mg BIDAC PO Last administered on 10/09/17 09 :10; Start 10/07/17 at 16:30 Epinephrine HCl (Adrenalin) 1 mg STK-MED ONCE .ROUTE ; Start 10/08/17 at 12:57; Stop 10/08/17 at 12:58; Status DC Propofol (Diprivan) 400 mg STK-MED ONCE IV ; Start 10/08/17 at 12:00; Stop 10/09 at 08:46; Status DC Lidocaine HCl (Lidocaine Pf 2% Vial) 5 ml STK-MED ONCE .ROUTE ; Start 10/08/17 at 12:00; Stop 10/09/17 at 08:46; Status DC Epinephrine HCl (EPINEPHrine SYRINGE) 1 mg STK-MED ONCE .ROUTE ; Start 10/08/17 at 12:00; Stop 10/09/17 at 08:46; Status DC Active Scripts Active Reported Gabapentin 300 Mg Capsule 300 Mg PO TID Cymbalta (Duloxetine Hcl) 60 Mg Capsule. 1 Cap PO BID Hydrochlorothiazide Tablet (Hydrochlorothiazide) 25 Mg Tablet 1 Tab PO DAILY Xanax (Alprazolam) 1 Mg Tablet 1 Tab PO TID PRN Vitals/I & O Vital Sign - Last 24 Hours 10/08/17 10/08/17 10/08/17 10/08/17 10:49 12:23 12:35 13:15 Temp 98.1 99.8 98.1 98.1 99.8 98.1 Pulse 101 87 91 Resp 18 18 18 B/P (MAP) 127/83 (98) 100/58 Pulse Ox 100 100 98 O2 Delivery Room Air Room Air Nasal Cannula O2 Flow Rate 2.0 3 10/08/17 10/08/17 10/08/17 10/08/17 13:30 13:45 14:11 14:28 Temp 98.6 98.6 Pulse 85 77 92 Resp 20 20 20 B/P (MAP) 117/76 117/59 118/70 (86) Pulse Ox 97 98 97 97 O2 Delivery Room Air Room Air Room Air Room Air 10/08/17 10/08/17 10/08/17 10/08/17 15:21 15:22 18:33 19:41 Resp 16 Pulse Ox 97 95 O2 Delivery Room Air Room Air Room Air Room Air 10/08/17 10/08/17 10/08/17 10/08/17 19:47 20:00 23:10 23:44 Temp 97.5 97.4 97.5 97.4 Pulse 109 79 Resp 20 20 B/P (MAP) 121/71 (88) 97/62 (74) Pulse Ox 95 98 O2 Delivery Room Air Room Air Room Air Room Air 10/09/17 10/09/17 10/09/17 10/09/17 00:54 03:25 03:51 04:57 Temp 97.4 97.4 Pulse 69 Resp 16 B/P (MAP) 98/59 (72) Pulse Ox 98 98 99 99 O2 Delivery Room Air Room Air Room Air Room Air 10/09/17 10/09/17 10/09/17 06:53 07:43 09:11 Temp 98.6 98.6 Pulse 88 Resp 17 B/P (MAP) 108/64 (79) Pulse Ox 98 97 O2 Delivery Room Air Room Air Room Air Intake and Output 10/08/17 10/08/17 10/09/17 15:00 23:00 07:00 Intake Total 200 ml 720 ml Balance 200 ml 720 ml YELITZA MARROQUIN MD Oct 09, 2017 10:06
[2017-10-09 10:59] VITALS: BP 149/96
--- NOTE | 2017-10-09 11:31 | PDOC ---
Subjective: Subjective: Doing okay. Objective: Objective: Has been advanced to full liquids. Vital Signs: Vital Signs Date Time Temp Pulse Resp B/P (MAP) Pulse Ox O2 Delivery O2 Flow Rate FiO2 10/09/17 10:59 98.9 65 18 149/96 (113) 97 Room Air 98.9 10/08/17 13:15 3 Imaging: EGD 10/08/17 E--Normal, GEJ at 34cm. G--Watery blood and clots in proximal body on initial entry. Most suctioned. No pathology in fundus, cardia, body. Prepyloric scarring with active 1 cm ulcer superior to pylorus with fresh clot. D--normal to second portion. --with withdrawal of scope back into stomach, clot dislodged from ulcer with slow but pulsatile bleeding c/w small arteriolar bleed. EPI 1cc x 5 in 4 quadrants and into ulcer base. Clip would not bridge ulcer and fell off. BICAP 'd with 50W, 1-2 second bursts around and on ulcer base. No active bleeding at end of case. Biopsies from antrum re: H.pylori. IMP: Prepyloric ulcer with recent bleeding; s/p epi/BICAP. PE: GEN: NAD NEURO/PSYCH: A & O 3 A/P: Prepyloric ulcer s/p endotherapy -path pending STUART -- Continue BID PPI. SHAHLA FISHER Oct 09, 2017 11:31
--- NOTE | 2017-10-09 13:42 | PATHOLOGY ---
PATHOLOGY REPORT * * * * * * * * FINAL DIAGNOSIS: Gastric biopsy, antrum: - Focal superficial edema and minimal inflammation: COMMENT: Sections of the gastric biopsy reveal gastric fundic and antral/fundic transition mucosa showing focal superficial mucosal edema and minimal inflammation. The latter consists of scattered eosinophils within the lamina propria. There is no significant inflammation. An immunoperoxidase stain for Helicobacter is obtained. No Helicobacter organisms are identified. There is no evidence of malignancy. (JPM:pit; 10/09/2017) Special stain: Immunoperoxidase stain for Helicobacter REPORT ELECTRONICALLY SIGNED BY: Shane Lozano M.D. DATE/TIME: 10/09/2017 13:41 * * * * * * * * GROSS PATHOLOGY: Received in formalin labeled "Karina Marti, antrum biopsy," are 2 segments of mcguire soft tissue measuring 0.9 x 0.2 x 0.3 cm in aggregate dimensions and ranging from 0.3 to 0.6 cm in maximum dimension. The specimen is submitted entirely in cassette A1. (TSD; 10/08/2017) INITIAL CPT CODE(S): A; 87897, 65880 Professional services performed [place] [facility] [address] Technical services performed by [facility] at [address] [place] [address]. SPECIMEN(S) RECEIVED: A.Antrum CLINICAL HISTORY: Severe anemia PATIENT: KARINA MARTI /AGE: 6 1955 (Age: 62) PATIENT #: [id number] ALT CASE #: SPECIMEN COLLECTION DATE: 10/08/2017 SPECIMEN RECEIVED DATE: 10/08/2017 [facility] - [address] [place] [address] - PHONE: [phone] * * * END OF REPORT * * *
--- NOTE | 2017-10-09 14:38 | PDOC ---
PULMONARY PROGRESS NOTES Subjective EXTUBATED 09/29 Vitals Vital Signs Date Time Temp Pulse Resp B/P (MAP) Pulse Ox O2 Delivery O2 Flow Rate FiO2 10/09/17 13:36 Room Air 10/09/17 10:59 98.9 65 18 149/96 (113) 97 98.9 10/08/17 13:15 3 General: Alert Lungs: Clear Cardiovascular: S1, S2 Abdomen: Soft Neuro Exam: Alert Extremities: Other (edema) Skin: Warm Labs Laboratory Tests Test 10/07/17 15:55 10/08/17 05:23 Hemoglobin 8.5 g/dL (12.0-15.5) 8.2 g/dL (12.0-15.5) Hematocrit 26.1 % (36.0-47.0) 25.2 % (36.0-47.0) Mean Corpuscular Hemoglobin Concent 33 g/dL (31-37) 33 g/dL (31-37) White Blood Count 6.2 x10^3/uL (4.0-11.0) Red Blood Count 2.77 x10^6/uL (3.50-5.40) Mean Corpuscular Volume 91 fL (79-100) Mean Corpuscular Hemoglobin 30 pg (25-35) Red Cell Distribution Width 22.1 % (11.5-14.5) Platelet Count 224 x10^3/uL (140-400) Neutrophils (%) (Auto) 77 % (31-73) Lymphocytes (%) (Auto) 8 % (24-48) Monocytes (%) (Auto) 5 % (0-9) Eosinophils (%) (Auto) 9 % (0-3) Basophils (%) (Auto) 1 % (0-3) Neutrophils # (Auto) 4.7 x10^3uL (1.8-7.7) Lymphocytes # (Auto) 0.5 x10^3/uL (1.0-4.8) Monocytes # (Auto) 0.3 x10^3/uL (0.0-1.1) Eosinophils # (Auto) 0.5 x10^3/uL (0.0-0.7) Basophils # (Auto) 0.1 x10^3/uL (0.0-0.2) Sodium Level 142 mmol/L (136-145) Potassium Level 3.7 mmol/L (3.5-5.1) Chloride Level 112 mmol/L (98-107) Carbon Dioxide Level 21 mmol/L (21-32) Anion Gap 9 (6-14) Blood Urea Nitrogen 17 mg/dL (7-20) Creatinine 0.7 mg/dL (0.6-1.0) Estimated GFR (Cockcroft-Gault) 85.4 BUN/Creatinine Ratio 24 (6-20) Glucose Level 84 mg/dL (70-99) Calcium Level 8.1 mg/dL (8.5-10.1) Total Bilirubin 0.3 mg/dL (0.2-1.0) Aspartate Amino Transf (AST/SGOT) 22 U/L (15-37) Alanine Aminotransferase (ALT/SGPT) 47 U/L (14-59) Alkaline Phosphatase 61 U/L (46-116) Total Protein 4.8 g/dL (6.4-8.2) Albumin 1.9 g/dL (3.4-5.0) Albumin/Globulin Ratio 0.7 (1.0-1.7) Medications Active Scripts Medications Dose Route/Sig Max Daily Dose Days Date Category Gabapentin 300 Mg Capsule 300 Mg PO TID 09/18/17 Reported Cymbalta (Duloxetine Hcl) 60 Mg Capsule.dr 1 Cap PO BID 09/18/17 Reported Hydrochlorothiazide Tablet (Hydrochlorothiazide) 25 Mg Tablet 1 Tab PO DAILY 09/17/17 Reported Xanax (Alprazolam) 1 Mg Tablet 1 Tab PO TID PRN 09/17/17 Reported Comments CXR 10/01 overall improving infiltrates Impression . 1. Acute hypoxic respiratory failure/ARDS/ S/P EXTUBATION, ON RA now/ DOING WELL 2. Anemia GI following 3. COPD/ compensated 4. Acute renal failure, stable 5. Sepsis with hypotension POA, resolved 6. S/P Bronch so far BAL negative 7. Critical care induced myopathy, improving strength 8. bilateral interstitial infiltrates , ? etiology, suspect viral, improved 9. medication induced delirium/ almost resolved 10. Anxiety disorder Plan . EGD RESULTS NOTED OK TO TRANSFER TO [facility] PRN OXYGEN RAKEL MCKENNA MD Oct 09, 2017 14:38
[2017-10-09 14:41] VITALS: BP 123/69
--- NOTE | 2017-10-09 15:30 | DISCH ---
DISCHARGE INSTRUCTIONS Condition on Discharge Condition on Discharge: Stable Activity After Discharge Activity Instructions for Disc: Activity as tolerated Contacting the DR. after DC Call your doctor for: If your condition worsens Follow-Up Follow up with: Follow-up with PCP in 2 weeks PMA STARKEY MD Oct 09, 2017 15:30
[2017-10-09] MEDS ORDERED: PANT40TA5 PO (15:33)
[2017-10-09] MEDS ORDERED: OXYC1TAB7 PO (15:33)
[2017-10-09] MEDS ORDERED: BUDE0.5A NEB (15:33)
[2017-10-09] MEDS ORDERED: FURO20TA3 PO (15:33)
--- NOTE | 2017-10-09 17:28 | PDOC3 ---
Discharge Summary [facility] Date of Admission: Sep 17, 2017 Discharge Date: Oct 09, 2017 Admitting Diagnosis 1. Pneumonia 2. Acute hypoxic respiratory failure 3. Acute blood loss Problems: (1) Acute dyspnea (2) Severe anemia Final Diagnosis Problems Medical Problems: (1) Dyspnea Status: Acute (2) Hypoalbuminemia Status: Acute (3) Metabolic acidosis Status: Acute (4) Pneumonia Status: Acute CONSULTS Pulmonary, GI, Cardiology, Hematology, Rehab, Neurology, ID Procedures Bronchoscopy, EGD Brief Hospital Course Ms. Marti is a 62 old CF who came in complaining worsening shortness of breath for the past 6 weeks. Patient found to have pneumonia and fluid and was started on IV antibiotics. Patient also had a hemoglobin of 4 and was transfused PRBCs. Patient was seen by Pulmonary who agreed with antibiotics and breathing treatments, cardiology was consulted who thought the fluid was from High output failure from her anemia. GI was consulted as well and would do an EGD when stable pulmonary muro. Patient in the upcoming days declined respiratory muro her oxygen requirements kept on increasing and she eventually had to be intubated and transferred to the ICU. Patient was intubated for several days and had to have bronchoscopy as well. Patient went into ARDS but got better and was extubated. Patient was transferred out of the ICU and was experiencing some delirium and was seen by Neurology who thought it was hospital acquired delirium. Patient was started on haldol and seroquel and her mentation slowly improved. Patient eventually had that EGD and was found to have pre-pyloric ulcer and was started on protonix. Patient was doing well and she developed critical illness myopathy and she was working with PT/OT and slowly getting stronger. Patient refused SNF and home health and was medically stable for discharge her will be home all day to take care of he. Problems: (1) Acute dyspnea (2) Severe anemia Disposition Home CONDITION AT DISCHARGE: Stable Diet cardiac Scheduled Budesonide (Budesonide), 0.5 MG NEB RTBID Duloxetine Hcl (Cymbalta), 1 CAP PO BID, (Reported) Furosemide (Furosemide), 20 MG PO DAILY Gabapentin (Gabapentin), 300 MG PO TID, (Reported) Hydrochlorothiazide (Hydrochlorothiazide Tablet ), 1 TAB PO DAILY, (Reported) Pantoprazole Sodium (Pantoprazole Sodium), 40 MG PO BIDAC Scheduled PRN Alprazolam (Xanax), 1 TAB PO TID PRN for ANXIETY, (Reported) Oxycodone Hcl/Acetaminophen (Oxycodone-Acetaminophen 5-325), 1 TAB PO PRN Q6HRS PRN for PAIN Follow Up Follow-up with PCP in 1-2 weeks PAM STARKEY MD Oct 09, 2017 17:28
== END 2017-10-09 16:50 | disposition home or self-care (01) | DRG 853 ==
LOC: ER 14:49 → 2 SOUTH 17:53 → 1 WEST ICU 09-18 15:59 → 6 SOUTH 09-30 15:00
PROVIDERS: ADMIT Internal Medicine; ATTEND Internal Medicine
PROC: 02HV33Z Insertion of Infusion Device into Superior Vena Cava, Percutaneous Approach (ICD-10-PCS; 2017-09-17)
PROC: 02H633Z Insertion of Infusion Device into Right Atrium, Percutaneous Approach (ICD-10-PCS; 2017-09-17)
PROC: 5A1955Z Respiratory Ventilation, Greater than 96 Consecutive Hours (ICD-10-PCS; 2017-09-17)
PROC: 0B9H8ZX Drainage of Lung Lingula, Via Natural or Artificial Opening Endoscopic, Diagnostic (ICD-10-PCS; 2017-09-17)
PROC: 5A09357 Assistance with Respiratory Ventilation, Less than 24 Consecutive Hours, Continuous Positive Airway Pressure (ICD-10-PCS; 2017-09-17)
PROC: 0BH17EZ Insertion of Endotracheal Airway into Trachea, Via Natural or Artificial Opening (ICD-10-PCS; 2017-09-17)
PROC: 30233N1 Transfusion of Nonautologous Red Blood Cells into Peripheral Vein, Percutaneous Approach (ICD-10-PCS; 2017-09-17)
PROC: 0B9D8ZX Drainage of Right Middle Lung Lobe, Via Natural or Artificial Opening Endoscopic, Diagnostic (ICD-10-PCS; 2017-09-20)
PROC: 0B9H8ZX Drainage of Lung Lingula, Via Natural or Artificial Opening Endoscopic, Diagnostic (ICD-10-PCS; 2017-09-20)
PROC: 0DB68ZX Excision of Stomach, Via Natural or Artificial Opening Endoscopic, Diagnostic (ICD-10-PCS; principal; 2017-10-08 13:00)
PROC: 3E0G8GC Introduction of Other Therapeutic Substance into Upper GI, Via Natural or Artificial Opening Endoscopic (ICD-10-PCS; 2017-10-08 13:00)
DX: A41.9 Sepsis, unspecified organism (principal); J96.01 Acute respiratory failure with hypoxia; N17.0 Acute kidney failure with tubular necrosis; G72.81 Critical illness myopathy; G82.50 Quadriplegia, unspecified; J18.9 Pneumonia, unspecified organism; E46 Unspecified protein-calorie malnutrition; G93.41 Metabolic encephalopathy; I50.31 Acute diastolic (congestive) heart failure; E87.2 Acidosis; E87.0 Hyperosmolality and hypernatremia; D62 Acute posthemorrhagic anemia; I13.0 Hypertensive heart and chronic kidney disease with heart failure and stage 1 through stage 4 chronic kidney disease, or unspecified chronic kidney disease; J44.0 Chronic obstructive pulmonary disease with (acute) lower respiratory infection; J44.1 Chronic obstructive pulmonary disease with (acute) exacerbation; D50.9 Iron deficiency anemia, unspecified; Z68.28 Body mass index [BMI] 28.0-28.9, adult; E86.0 Dehydration; E87.6 Hypokalemia; F17.210 Nicotine dependence, cigarettes, uncomplicated; F41.9 Anxiety disorder, unspecified; G62.9 Polyneuropathy, unspecified; I73.9 Peripheral vascular disease, unspecified; N18.3 Chronic kidney disease, stage 3 (moderate); R65.20 Severe sepsis without septic shock; Z79.1 Long term (current) use of non-steroidal anti-inflammatories (NSAID); F32.9 Major depressive disorder, single episode, unspecified; M19.90 Unspecified osteoarthritis, unspecified site; I99.8 Other disorder of circulatory system; K25.9 Gastric ulcer, unspecified as acute or chronic, without hemorrhage or perforation
CPT/HCPCS: 31622; 36415; 36556; 36600; 70450; 71010; 71250; 74177; 76770; 76937; 78278; 80047; 80048; 80053; 80061; 80202; 81001; 82607; 82728; 82746; 82805; 82962; 83010; 83540; 83550; 83605; 83615; 83735; 83880; 84100; 84145; 84300; 84443; 84484; 85007; 85014; 85018; 85025; 85027; 85045; 85384; 85610; 85651; 85730; 86021; 86713; 86747; 86850; 86900; 86901; 86920; 87040; 87070; 87102; 87116; 87205; 87252; 87324; 87449; 87641; 87804; 88112; 88305; 88312; 88342; 90686; 93005; 93306; 94002; 94003; 94250; 94640; 94660; 94760; 96361; 96365; 96374; 99406; A9560; C1892; C9113; E0160; J0171; J0330; J0456; J0461; J0610; J0690; J0696; J1650; J1756; J1815; J2060; J2248; J2250; J2270; J2405; J2543; J2704; J2920; J2930; J3010; J3370; J3475; J7030; J7050; J7620; J7626; P9016; P9041; Q0144; Q9967; 92526; 92610; 97110; 97530; 97535; 99285-25; J2001